=== PATIENT | male | born 1955 | race Caucasian/White ===

== ENCOUNTER → 2018-02-02 | Outpatient (CLI) | payer MEDICARE ==
--- NOTE | 2018-02-02 08:26 | XR ---
EXAMINATION TYPE: XR chest 2V DATE OF EXAM: 02/02/2018 COMPARISON: December 29, 2011 HISTORY: Shortness of breath TECHNIQUE: Frontal and lateral views of the chest are obtained. FINDINGS: Scattered senescent parenchymal changes noted. Hyperinflation compatible with COPD. No evidence for infiltrate. No evidence for atelectasis. Heart size is stable. Mediastinal structures are stable and grossly unremarkable. No evidence for hilar prominence. Degenerative changes dorsal spine. IMPRESSION: 1. No evidence for acute pulmonary disease.
== END | disposition home or self-care (01) ==
LOC: RADXRMAIN 08:04
PROVIDERS: ATTEND Internal Medicine
DX: R05 Cough (principal)
CPT/HCPCS: 71046

== ENCOUNTER 2019-02-28 09:42 | Day surgery (SDC) | payer MEDICARE ==
[2019-02-26 14:21] VITALS: BMI 28.5
[~2019-02-28 09:42] MED LIST: LACTATED RINGERS 1,000 ML IV SCH; LIDOCAINE 1% 20 ML VIAL (10MG/ML) FOR IV START INTRADERMA PRN; MIDAZOLAM (PF) 2 MG/2 ML VIAL IV PRN
[2019-02-28 10:17] VITALS: RESP 16; TEMP 96.7
[2019-02-28] MEDS ORDERED: fentaNYL (PF) 50 MCG/ML 2 ML AMP ONE (11:12)
[2019-02-28] MEDS ORDERED: LIDOCAINE 1% INJ 10MG/ML (20 ML MDV) ONE (11:12)
[2019-02-28] MEDS ORDERED: ONDANSETRON 4 MG/2 ML VIAL ONE (11:12)
[2019-02-28] MEDS ORDERED: PROPOFOL 10 MG/ML 20 ML VIAL IV ONE (11:12)
--- NOTE | 2019-02-28 11:57 | P.PCN ---
Date of Procedure: 02/28/19 Procedure(s) Performed: Procedure: Total colonoscopy. Preoperative diagnosis: Positive cologuard test. Postoperative diagnosis: Diverticulosis with no evidence of acute diverticulitis, strictures, polyps or cancer. Preparation: HalfLytely prep. Sedation: Was provided by anesthesia. Brief clinical history: The patient is 63-year-old male who is scheduled for this evaluation because of positive cologuard test. The patient had no prior colonoscopy. He has taken acid suppressive medications for reflux over the years but not recently. He has no significant bowel issues and reported having seen blood in his stools 2 different times when he was straining, the last may have been the day he submitted a stool specimen for the cologuard test. Procedure: With the patient on his left lateral decubitus position and after informed consent and adequate sedation, the perianal area was inspected and it d id not show any fissures or fistulas. There were no masses felt on digital rectal examination. The Olympus CFH 190L video colonoscope was then inserted in the rectum in the usual fashion and advanced to the cecum. Unfortunately, the preparation was less than ideal and I spent some time cleansing the bowel. There was diffuse diverticulosis, more on the left side with no evidence of acute diverticulitis or strictures. No large polyps or tumors were seen or any spontaneous bleeding. I retroflexed the endoscope in the rectum before the endoscope was withdrawn. The patient tolerated the procedure well. Plan: The patient was reassured. Discussed dietary measures. Consideration can be given for an upper endoscopy if he has recurrence of his upper GI complaints or anemia. He will follow up with you as planned. In light of his less than ideal preparation, I suggested repeat colonoscopy for screening in around 5 years.
[2019-02-28 12:17] VITALS: BP 159/88; PULSE 80
== END 2019-02-28 12:22 | disposition home or self-care (01) ==
LOC: ORWHC2ENDO 09:42
DX: K92.1 Melena (principal); K57.30 Diverticulosis of large intestine without perforation or abscess without bleeding; K21.9 Gastro-esophageal reflux disease without esophagitis; Z86.73 Personal history of transient ischemic attack (TIA), and cerebral infarction without residual deficits; I10 Essential (primary) hypertension; E07.9 Disorder of thyroid, unspecified; J44.9 Chronic obstructive pulmonary disease, unspecified; F17.210 Nicotine dependence, cigarettes, uncomplicated; Z79.890 Hormone replacement therapy; Z79.891 Long term (current) use of opiate analgesic; Z79.899 Other long term (current) drug therapy
CPT/HCPCS: 45378; J2405; J2001; J3010; J2704

== ENCOUNTER → 2020-12-30 | Outpatient (CLI) | payer MEDICARE ==
--- NOTE | 2020-12-30 19:10 | MR ---
Result: History: Left foot pain, redness and swelling. Comparison: Radiographs 10/31/2017. Technique: Multiplanar, multisequence MR imaging of the left foot was performed without contrast. Findings: There is no significant bone marrow abnormality, acute fracture or dislocation. No evidence of verteb ral marrow replacements to suggest osteomyelitis. No significant joint effusion. There is diffuse marked subcutaneous soft tissue edema at the dorsum of the foot. No definite focal f luid collection on this noncontrast study. There is also diffuse moderate soft tissue edema about the imaged distal leg. No significant tendon or plantar fascia abnormality is seen. There is generalized mild atrophy of the foot musculature. Impression: Diffuse marked soft tissue edema about the dorsum of the foot as well as the visualized leg. Findings are compatible with cellulitis in the appropriate clinical setting. No acute osseous abnormality or evidence of osteomyelitis.
== END | disposition home or self-care (01) ==
LOC: RADMRIMAIN 09:37
PROVIDERS: ATTEND Podiatrist
DX: M84.375A Stress fracture, left foot, initial encounter for fracture (principal); G58.9 Mononeuropathy, unspecified; G90.522 Complex regional pain syndrome I of left lower limb; R60.9 Edema, unspecified; M79.672 Pain in left foot

== ENCOUNTER 2021-04-27 14:01 | Emergency (ER) | payer MEDICARE ==
[2021-04-27 14:11] VITALS: BP 169/78; PULSE 83; RESP 16; TEMP 98.3
--- NOTE | 2021-04-27 14:37 | ED ---
Extremity Problem HPI - General Chief complaint: Extremity Problem,Nontraumatic Stated complaint: Leg swelling Time Seen by Provider: 04/27/21 14:11 Source: patient Mode of arrival: wheelchair Limitations: no limitations - History of Present Illness Initial comments: Patient is a 66-year-old male with history of CVA, hypertension, asthma, presenting to the emergency Department with complaints of swelling in his left lower leg for the past 2 years. Patient states all this started about 2 years ago, he feels like it's been getting worse over the past few months. He states he has seen to his primary care physician, vascular doctor and about 3 days ago saw his change coordinator. They seem to think it's lymphedema. They scheduled him a heart echo and a left lower leg ultrasound, these are scheduled for next month. Patient states he has a compression machine at home that he's been using, it does help with the swelling but when he takes it off, a few hours later the swelling has returned. He states he has had an ultrasound of his left lower leg but was back in January, no history of blood clots. He is not on blood thinners. He denies any injuries or trauma. He states he get his blood work every 3 months, no abnormalities. He denies any fevers or chills, no chest pain or shortness of breath, no cough. No nausea or vomiting. Patient has no further complaints at this time, he states he is here for second opinion. ER, his vitals are stable. - Related Data Home Medications Medication Instructions Recorded Confirmed Aspirin 81 mg PO DAILY 02/26/19 02/28/19 Baclofen [Lioresal] 5 mg PO DAILY 02/26/19 02/28/19 Enalapril [Vasotec] 10 mg PO DAILY 02/26/19 02/28/19 HYDROcodone/APAP 5-325MG [[place] 1 tab PO DAILY PRN 02/26/19 02/28/19 5-325] Ipratropium/Albuterol Sulfate 1 puff INHALATION QID PRN 02/26/19 02/26/19 [Combivent Respimat Inhaler] Levothyroxine Sodium [Synthroid] 75 mcg PO DAILY 02/26/19 02/28/19 Metoprolol Succinate [Toprol XL] 50 mg PO DAILY 02/26/19 02/28/19 Omeprazole [PriLOSEC] 20 mg PO AC-BRKFST 02/26/19 02/28/19 Zolpidem [Ambien] 10 mg PO HS PRN 02/26/19 02/28/19 Allergies Allergy/AdvReac Type Severity Reaction Status Date / Time No Known Allergies Allergy Verified 04/27/21 14:11 Review of Systems ROS Statement: Those systems with pertinent positive or pertinent negative responses have been documented in the HPI. ROS Other: All systems not noted in ROS Statement are negative. Past Medical History Past Medical History: Asthma, CVA/TIA, GERD/Reflux, Hypertension, Thyroid Disorder Additional Past Medical History / Comment(s): Hx. of Brain Aneurysm History of Any Multi-Drug Resistant Organisms: None Reported Past Surgical History: Cholecystectomy, Tonsillectomy Additional Past Surgical History / Comment(s): Knee surgery, Endovascular coiling for Brain Aneurysm. Past Anesthesia/Blood Transfusion Reactions: Previous Problems w/ Anesthesia Additional Past Anesthesia/Blood Transfusion Reaction / Comment(s): Woke up during surgery. Past Psychological History: Anxiety Smoking Status: Current every day smoker Past Alcohol Use History: None Reported Past Drug Use History: None Reported - Past Family History Mother Family Medical History: Cancer General Exam - General Exam Comments Initial Comments: GENERAL: Patient is well-developed and well-nourished. Patient is nontoxic and in no a cute distress. HEAD: Atraumatic, normocephalic. EYES: Pupils equal round and reactive to light, extraocular movements intact, sclera anicteric, conjunctiva are normal. Eyelids were unremarkable. ENT: TMs normal, nares patent, oropharynx clear without exudates. Moist mucous membranes. NECK: Normal range of motion, supple without lymphadenopathy or JVD. LUNGS: Unlabored respirations. Breath sounds clear to auscultation bilaterally and equal. No wheezes rales or rhonchi. HEART: Regular rate and rhythm without murmurs, rubs or gallops. ABDOMEN: Soft, nontender, normoactive bowel sounds. No guarding, no rebound. No masses appreciated. : Deferred MUSCULOSKELETAL: Patient has 2+ pitting edema at the left lower leg and into the ankle, he is neurovascular intact to lower extremities bilaterally. He has full active range of motion of the left knee, left ankle. No erythema or signs of infection. No clubbing or cyanosis. NEUROLOGICAL: Patient is alert and oriented x 3. Motor and sensory are also intact. Cranial nerves II through XII grossly intact. Symmetrical smile. Normal speech, normal gait. PSYCH: Normal mood, normal affect. SKIN: Warm, Dry, normal turgor, no rashes or lesions noted. Limitations: no limitations Course Vital Signs 04/27/21 14:07 Temperature 98.3 F Pulse Rate 83 Respiratory 16 Rate Blood Pressure 169/78 O2 Sat by Pulse 97 Oximetry Medical Decision Making - Medical Decision Making Patient is a 66-year-old male here for swelling of the left lower leg and going on for the past 2 years but worse over the past couple months. He has seen his PCP, vascular doctor and most recently a change coordinator 3 days ago. He is here for second opinion. His vitals are stable, he does have 2+ pitting edema of the left lower leg, pulses are equal and bilateral lower extremities. He's had no falls or trauma. I did do an ultrasound left lower extremity, negative for any DVTs. I discussed these findings with the patient, I do agree with his previous diagnosis of lymphedema. I recommend he continue to follow-up with his change coordinator and vascular doctor. He is stable for discharge and in agreement with this plan of care. Case discussed with Dr. Perez. Disposition Clinical Impression: Lymphedema of left lower extremity Disposition: HOME SELF-CARE Condition: Stable Instructions (If sedation given, give patient instructions): Leg Edema (ED) Additional Instructions: Please return to the Emergency Department if symptoms worsen or any other concerns. Continue with elevation and compression as discussed. Continue to follow up with your vascular doctor and change coordinator. Is patient prescribed a controlled substance at d/c from ED?: No Referrals: Carlos Pop MD [Primary Care Provider] - 1-2 days Time of Disposition: 15:21
--- NOTE | 2021-04-27 15:07 | US ---
EXAMINATION TYPE: US venous doppler duplex LE LT DATE OF EXAM: 04/27/2021 2:57 PM COMPARISON: NONE CLINICAL HISTORY: pain, swelling. 2 years per pt. SIDE PERFORMED: Left TECHNIQUE: The lower extremity deep venous system is examined utilizing real time linear array sonog ismael with graded compression, doppler sonography and color-flow sonography. VESSELS IMAGED: Common Femoral Vein Deep Femoral Vein Greater Saphenous Vein * Femoral Vein Popliteal Vein Small Saphenous Vein * Proximal Calf Veins (* superficial vessels) Left Leg: Negative for DVT IMPRESSION: 1. Left lower extremity ultrasound negative for deep venous thrombosis.
== END 2021-04-27 15:43 | disposition home or self-care (01) ==
LOC: EC 14:01
DX: I89.0 Lymphedema, not elsewhere classified (principal); I10 Essential (primary) hypertension; J45.909 Unspecified asthma, uncomplicated; K21.9 Gastro-esophageal reflux disease without esophagitis; F17.200 Nicotine dependence, unspecified, uncomplicated; Z86.73 Personal history of transient ischemic attack (TIA), and cerebral infarction without residual deficits; Z79.82 Long term (current) use of aspirin; Z79.51 Long term (current) use of inhaled steroids
CPT/HCPCS: 99284

== ENCOUNTER 2021-09-07 20:02 | Observation (INO) | payer MEDICARE ==
[2021-09-07 23:11] LABS: Basophils # (A) 0.1 k/uL (0-0.2); Basophils % (A) 1 %; Eosinophils # (A) 0.2 k/uL (0-0.7); Eosinophils % (A) 2 %; HCT 46.3 % (39.0-53.0); HGB 16.1 gm/dL (13.0-17.5); Lymphocytes # (A) 3.1 k/uL (1.0-4.8); Lymphocytes % (A) 32 %; MCH 32.9 pg (25.0-35.0); MCHC 34.7 g/dL (31.0-37.0); MCV 94.8 fL (80.0-100.0); Monocytes # (A) 0.7 k/uL (0-1.0); Monocytes % (A) 7 %; Neutrophils # (A) 5.6 k/uL (1.3-7.7); Neutrophils % (A) 57 %; Platelet Count 116 k/uL (150-450); RBC 4.88 m/uL (4.30-5.90); RDW 13.1 % (11.5-15.5); WBC 9.8 k/uL (3.8-10.6)
[2021-09-07 23:17] LABS: ALT 22 U/L (4-49); AST 35 U/L (17-59); African American GFR (CKD) >90 (>60 ml/min/1.73 sqM); Albumin 4.1 g/dL (3.5-5.0); Alkaline Phosphatase 111 U/L (38-126); Anion Gap 8 mmol/L; Blood Urea Nitrogen 11 mg/dL (9-20); Calcium 9.3 mg/dL (8.4-10.2); Carbon Dioxide 25 mmol/L (22-30); Chloride 104 mmol/L (98-107); Glucose 106 mg/dL (74-99); Non-African American GFR(CKD) >90 (>60 ml/min/1.73 sqM); Potassium 4.5 mmol/L (3.5-5.1); Sodium 137 mmol/L (137-145); Total Bilirubin 0.8 mg/dL (0.2-1.3); Total Protein 7.6 g/dL (6.3-8.2)
[2021-09-07 23:19] LABS: INR 1.2 (<1.2); Partial Thromboplastin Time 31.7 sec (22.0-30.0); Prothrombin Time 12.5 sec (9.0-12.0)
--- NOTE | 2021-09-07 23:20 | ED ---
General Adult HPI - General Chief complaint: ENT Stated complaint: Hemorrage in throat Source: patient Mode of arrival: ambulatory Limitations: no limitations - History of Present Illness Initial comments: 66-year-old male with past medical history of hypertension, reflux, smoking presents emergency room with reported oral bleeding. States its been going on for the past 3 weeks. Reports that begins after he eats or drinks something. Used to happen infrequently however has become more frequent. Today states that it started bleeding and took several hours to stop. He is not on any blood thinners. States it is not painful. Denies hemoptysis or hematemesis. No fevers or chills. No other alleviating, precipitating or modifying factors - Related Data Home Medications Medication Instructions Recorded Confirmed Baclofen [Lioresal] 10 mg PO HS 02/26/19 09/07/21 Ipratropium/Albuterol Sulfate 1 puff INHALATION RT-QID 02/26/19 09/07/21 [Combivent Respimat Inhaler] Metoprolol Succinate [Toprol XL] 50 mg PO DAILY 02/26/19 09/07/21 Omeprazole [PriLOSEC] 20 mg PO AC-BRKFST 02/26/19 09/07/21 Albuterol Sulfate [Ventolin HFA] 2 puff INHALATION RT-Q6H PRN 09/07/21 09/07/21 Cholecalciferol (Vitamin D3) 125 mcg PO DAILY 09/07/21 09/07/21 [Vitamin D3 (125 MCG = 5,000 IU)] Famotidine 20 mg PO BID 09/07/21 09/07/21 HYDROcodone/APAP 10-325MG [[place] 1 tab PO Q6HR PRN 09/07/21 09/07/21 10-325] Levothyroxine Sodium [Synthroid] 88 mcg PO DAILY 09/07/21 09/07/21 Morphine Sulfate ER [Ms Contin] 15 mg PO Q8H 09/07/21 09/07/21 Zolpidem Tartrate [Ambien Cr] 12.5 mg PO HS PRN 09/07/21 09/07/21 lisinopriL 20 mg PO DAILY 09/07/21 09/07/21 Allergies Allergy/AdvReac Type Severity Reaction Status Date / Time No Known Allergies Allergy Verified 09/07/21 20:15 Review of Systems ROS Statement: Those systems with pertinent positive or pertinent negative responses have been documented in the HPI. ROS Other: All systems not noted in ROS Statement are negative. Past Medical History Past Medical History: Asthma, CVA/TIA, GERD/Reflux, Hypertension, Thyroid Disorder Additional Past Medical History / Comment(s): Hx. of Brain Aneurysm History of Any Multi-Drug Resistant Organisms: None Reported Past Surgical History: Cholecystectomy, Tonsillectomy Additional Past Surgical History / Comment(s): Knee surgery, Endovascular coiling for Brain Aneurysm. Past Anesthesia/Blood Transfusion Reactions: Previous Problems w/ Anesthesia Additional Past Anesthesia/Blood Transfusion Reaction / Comment(s): Woke up during surgery. Past Psychological History: Anxiety Smoking Status: Current every day smoker Past Alcohol Use History: None Reported Past Drug Use History: None Reported - Past Family History Mother Family Medical History: Cancer General Exam Limitations: no limitations Course Vital Signs 09/07/21 09/07/21 09/07/21 20:11 21:36 22:48 Temperature 98.8 F Pulse Rate 70 72 66 Respiratory 20 22 22 Rate Blood Pressure 163/73 174/81 183/83 O2 Sat by Pulse 97 96 95 Oximetry EKG Findings - EKG Comments: EKG Findings:: EKG demonstrates a sinus rhythm with a ventricular rate of 66. ID interval 190. QRS 106. QTC of 459. No acute ST segment elevations or depressions Medical Decision Making - Medical Decision Making Upon arrival patient was placed in room 24. No active bleeding upon presentation. IV is established laboratories his her conducted. He is sent over for a CT of his neck. Laboratory studies are reviewed and hemoglobin is 16.1. CT demonstrates no acute issues to account for bleeding. All patient is awaiting results he does have onset of bleeding in the exam room. He does produce approximately 150 mL of bright red blood. Mouth is coated with blood however no identifiable source is to the bleeding. Patient mouth is swabbed with TXA. Source possible identified at the posterior pharynx/base of tongue on the right. Due to increased frequency and longevity of bleeding and did recommend admission for ENT consult. Patient agreed to this. He'll be admitted to [facility] has Dr. Pop is on vacation - Lab Data Result diagrams: 09/07/21 22:48 09/07/21 22:48 Lab Results 09/07/21 09/07/21 09/07/21 Range/Units 22:00 22:48 22:48 WBC 9.8 (3.8-10.6) k/uL RBC 4.88 (4.30-5.90) m/uL Hgb 16.1 (13.0-17.5) gm/dL Hct 46.3 (39.0-53.0) % MCV 94.8 (80.0-100.0) fL MCH 32.9 (25.0-35.0) pg MCHC 34.7 (31.0-37.0) g/dL RDW 13.1 (11.5-15.5) % Plt Count 116 L (150-450) k/uL MPV 10.0 Neutrophils % 57 % Lymphocytes % 32 % Monocytes % 7 % Eosinophils % 2 % Basophils % 1 % Neutrophils # 5.6 (1.3-7.7) k/uL Lymphocytes # 3.1 (1.0-4.8) k/uL Monocytes # 0.7 (0-1.0) k/uL Eosinophils # 0.2 (0-0.7) k/uL Basophils # 0.1 (0-0.2) k/uL PT 12.5 H (9.0-12.0) sec INR 1.2 H (<1.2) APTT 31.7 H (22.0-30.0) sec D-Dimer 0.46 (<0.60) mg/L FEU Sodium 137 (137-145) mmol/L Potassium 4.5 (3.5-5.1) mmol/L Chloride 104 (98-107) mmol/L Carbon Dioxide 25 (22-30) mmol/L Anion Gap 8 mmol/L BUN 11 (9-20) mg/dL Creatinine 0.62 L (0.66-1.25) mg/dL Est GFR (CKD-EPI)AfAm >90 (>60 ml/min/1.73 sqM) Est GFR (CKD-EPI)NonAf >90 (>60 ml/min/1.73 sqM) Glucose 106 H (74-99) mg/dL Plasma Lactic Acid Adalid (0.7-2.0) mmol/L Calcium 9.3 (8.4-10.2) mg/dL Total Bilirubin 0.8 (0.2-1.3) mg/dL AST 35 (17-59) U/L ALT 22 (4-49) U/L Alkaline Phosphatase 111 (38-126) U/L Troponin I (0.000-0.034) ng/mL Total Protein 7.6 (6.3-8.2) g/dL Albumin 4.1 (3.5-5.0) g/dL 09/07/21 09/07/21 Range/Units 22:48 22:48 WBC (3.8-10.6) k/uL RBC (4.30-5.90) m/uL Hgb (13.0-17.5) gm/dL Hct (39.0-53.0) % MCV (80.0-100.0) fL MCH (25.0-35.0) pg MCHC (31.0-37.0) g/dL RDW (11.5-15.5) % Plt Count (150-450) k/uL MPV Neutrophils % % Lymphocytes % % Monocytes % % Eosinophils % % Basophils % % Neutrophils # (1.3-7.7) k/uL Lymphocytes # (1.0-4.8) k/uL Monocytes # (0-1.0) k/uL Eosinophils # (0-0.7) k/uL Basophils # (0-0.2) k/uL PT (9.0-12.0) sec INR (<1.2) APTT (22.0-30.0) sec D-Dimer (<0.60) mg/L FEU Sodium (137-145) mmol/L Potassium (3.5-5.1) mmol/L Chloride (98-107) mmol/L Carbon Dioxide (22-30) mmol/L Anion Gap mmol/L BUN (9-20) mg/dL Creatinine (0.66-1.25) mg/dL Est GFR (CKD-EPI)AfAm (>60 ml/min/1.73 sqM) Est GFR (CKD-EPI)NonAf (>60 ml/min/1.73 sqM) Glucose (74-99) mg/dL Plasma Lactic Acid Adalid 0.7 (0.7-2.0) mmol/L Calcium (8.4-10.2) mg/dL Total Bilirubin (0.2-1.3) mg/dL AST (17-59) U/L ALT (4-49) U/L Alkaline Phosphatase (38-126) U/L Troponin I <0.012 (0.000-0.034) ng/mL Total Protein (6.3-8.2) g/dL Albumin (3.5-5.0) g/dL Disposition Clinical Impression: Oral bleeding Disposition: ADMITTED IP TO THIS [facility] Condition: Stable Is patient prescribed a controlled substance at d/c from ED?: No Referrals: Carlos Pop MD [Primary Care Provider] - 1-2 days Decision to Admit Reason: Admit from EC Decision Date: 09/08/21 Decision Time: 01:08
--- NOTE | 2021-09-08 00:30 | XR ---
EXAMINATION TYPE: XR chest 2V DATE OF EXAM: 09/07/2021 COMPARISON: 02/02/2018 HISTORY: Cough TECHNIQUE: 2 views FINDINGS: There is no heart failure nor confluent pneumonic infiltrate. Costophrenic angles are clear . There are no hilar masses. Bony thorax is intact. IMPRESSION: No active cardiopulmonary disease. No change.
--- NOTE | 2021-09-08 00:37 | CT ---
EXAMINATION TYPE: CT soft tissue neck w con DATE OF EXAM: 09/07/2021 COMPARISON: None HISTORY: Bleeding in throat CT DLP: 341.8 mGycm Automated exposure control for dose reduction was used. CONTRAST: Performed with IV Contrast, patient injected with 100 mL of Isovue 300. Images obtained from the aortic arch to the top of the frontal sinuses with IV contrast. There is normal branching pattern of the great vessels on the aortic arch. There is bilateral arteria l flow in the subclavian arteries. There is arterial flow in the carotid and vertebral arteries bilat erally. There is flow in both jugular veins. There is some pulmonary emphysema at the lung apices. Submandibular salivary glands are intact. Parotid glands are intact. Thyroid gland is intact. Trache a is intact. The tongue is intact. There is no evidence of pharyngeal mass. Epiglottis is normal. Pre vertebral soft tissues are intact. There is mild multilevel cervical spondylotic changes. The tonsils and adenoids are within normal limits. There is normal aeration of the paranasal sinuses. There is m etal artifact from apparent aneurysm surgery at the tip of the basilar artery. There is no evidence o f orbital mass. IMPRESSION: No significant abnormality of the neck. No evidence of pharyngeal mass. I do not see a cause for blee ding in the throat. Normal paranasal sinuses. Pulmonary emphysema noted at the lung apices.
[2021-09-08] MEDS ORDERED: TRANEXAMIC ACID 1,000 MG/10 ML VIAL IRRIGATION ONE (00:40)
[2021-09-08] MEDS ORDERED: NALOXONE 0.4 MG/ML 1 ML VIAL IV PRN (01:08)
[2021-09-08] MEDS ORDERED: ALBUTEROL NEBULIZED 2.5 MG/3 ML INHALATION PRN (01:27)
[2021-09-08] MEDS: MORPHINE SULFATE ER 15 MG TABLET PO SCH ×2 (01:53→09:35)
[2021-09-08] MEDS: LEVOTHYROXINE 88 MCG TAB PO SCH (06:03)
[2021-09-08] MEDS: IPRATROPIUM-ALBUTEROL 3 ML NEB INHALATION SCH ×4 (07:58→20:10)
[2021-09-08] MEDS: CHOLECALCIFEROL 25 MCG (1000 IU) TABLET PO SCH ×2 (09:28→15:42)
[2021-09-08] MEDS: FAMOTIDINE 20 MG TAB PO SCH ×3 (09:28→20:36)
[2021-09-08] MEDS: METOPROLOL SUCCINATE (ER) 50 MG TAB.ER.24H PO SCH ×2 (09:28→09:45)
[2021-09-08] MEDS: PANTOPRAZOLE 40 MG TABLET PO SCH ×2 (09:28→15:42)
[2021-09-08] MEDS: lisinopriL 20 MG TAB PO SCH ×3 (09:28→09:53)
[2021-09-08] MEDS: HYDROcodone/APAP 10-325MG 1 EACH TAB PO PRN ×2 (09:46→16:56)
--- NOTE | 2021-09-08 11:11 | P.HPIM ---
History of Present Illness H&P Date: 09/08/21 Chief Complaint: Oral bleeding This is a 66-year-old male patient who presented to the ER with concerns of ongoing oral bleeding. Patient reports this issue has been occurring intermittently over the past month but did have a previous episode approximately 1 year ago. Patient reports that the bleeding is coming from tongue lesion. Patient reports that when he eats and drinks facets the bleeding of or if he lays down the bleeding will sometimes start. Patient denies any use of blood thinners. Patient does report he takes baby aspirin daily. Patient is a pack per day smoker. Additional medical history includes hypertension, reflux, CVA and brain aneurysm. Chest x-ray completed showing no active cardiopulmonary disease no change. Computed tomography scan of the neck completed showing no significant abnormality of the neck. Hemoglobin stable at 16.1. At this time patient has been admitted. ENT services consulted. Patient denies chest pain or shortness breath. Patient denies chest pain or shortness breath. Patient denies nausea vomiting or diarrhea. Patient denies any urinary burning or frequency. Review of Systems Please refer to HPI otherwise unremarkable Past Medical History Past Medical History: Asthma, CVA/TIA, GERD/Reflux, Hypertension, Thyroid Disorder Additional Past Medical History / Comment(s): Hx. of Brain Aneurysm History of Any Multi-Drug Resistant Organisms: None Reported Past Surgical History: Cholecystectomy, Tonsillectomy Additional Past Surgical History / Comment(s): Knee surgery, Endovascular coiling for Brain Aneurysm. Past Anesthesia/Blood Transfusion Reactions: Previous Problems w/ Anesthesia Additional Past Anesthesia/Blood Transfusion Reaction / Comment(s): Woke up during surgery. Past Psychological History: Anxiety Smoking Status: Current every day smoker Past Alcohol Use History: None Reported Past Drug Use History: None Reported - Past Family History Mother Family Medical History: Cancer Medications and Allergies Home Medications Medication Instructions Recorded Confirmed Type Baclofen [Lioresal] 10 mg PO HS 02/26/19 09/07/21 History Ipratropium/Albuterol Sulfate 1 puff INHALATION RT-QID 02/26/19 09/07/21 History [Combivent Respimat Inhaler] Metoprolol Succinate [Toprol XL] 50 mg PO DAILY 02/26/19 09/07/21 History Omeprazole [PriLOSEC] 20 mg PO AC-BRKFST 02/26/19 09/07/21 History Albuterol Sulfate [Ventolin HFA] 2 puff INHALATION RT-Q6H PRN 09/07/21 09/07/21 History Cholecalciferol (Vitamin D3) 125 mcg PO DAILY 09/07/21 09/07/21 History [Vitamin D3 (125 MCG = 5,000 IU)] Famotidine 20 mg PO BID 09/07/21 09/07/21 History HYDROcodone/APAP 10-325MG [[place] 1 tab PO Q6HR PRN 09/07/21 09/07/21 History 10-325] Levothyroxine Sodium [Synthroid] 88 mcg PO DAILY 09/07/21 09/07/21 History Morphine Sulfate ER [Ms Contin] 15 mg PO Q8H 09/07/21 09/07/21 History Zolpidem Tartrate [Ambien Cr] 12.5 mg PO HS PRN 09/07/21 09/07/21 History lisinopriL 20 mg PO DAILY 09/07/21 09/07/21 History Allergies Allergy/AdvReac Type Severity Reaction Status Date / Time No Known Allergies Allergy Verified 09/07/21 20:15 Physical Exam Vitals: Vital Signs Temp Pulse Pulse Resp BP BP Pulse Ox 09/08/21 08:13 80 09/08/21 08:01 80 09/08/21 07:00 97.8 F 79 18 132/61 94 L 09/08/21 02:20 98.1 F 72 16 171/84 93 L 09/08/21 02:00 16 09/08/21 01:50 98 F 73 18 171/78 95 09/07/21 22:48 66 22 183/83 95 09/07/21 21:36 72 22 174/81 96 09/07/21 20:11 98.8 F 70 20 163/73 97 Intake and Output 09/07/21 09/08/21 09/08/21 22:59 06:59 14:59 Other: Voiding Method Toilet Toilet # Voids 2 Weight 99.79 kg 99.79 kg Head normocephalic Neck supple Lungs clear to auscultation bilaterally no wheezing or crackles Heart regular rate and rhythm S1-S2, no rub or gallop Abdomen is soft nontender nondistended positive bowel sounds no hepatospleno megaly Extremities no edema Neuro alert and orientated to 3 Results CBC & Chem 7: 10/19/21 22:48 09/07/21 22:48 Labs: Abnormal Lab Results - Last 24 Hours (Table) 09/07/21 09/07/21 09/07/21 Range/Units 22:00 22:48 22:48 Plt Count 116 L (150-450) k/uL PT 12.5 H (9.0-12.0) sec INR 1.2 H (<1.2) APTT 31.7 H (22.0-30.0) sec Creatinine 0.62 L (0.66-1.25) mg/dL Glucose 106 H (74-99) mg/dL Thrombosis Risk Factor Assmnt - Choose All That Apply Each Factor Represents 1 point: Obesity (BMI >25), Swollen legs (current) Other Risk Factors: Yes Each Risk Factor Represents 2 Points: Age 61-74 years Other congenital or acquired thrombophilia - If yes, enter type in comment: No Thrombosis Risk Factor Assessment Total Risk Factor Score: 4 Thrombosis Risk Factor Assessment Level: Moderate Risk Assessment and Plan Assessment: 1. Oral bleeding with tongue lesion. ENT service is consulted hemoglobin stable 2. History of nicotine dependence. Patient educated greater than 3 minutes on smoking sensation nicotine patch ordered 3. History of CVA 4. History of brain aneurysm 5. History of asthma no exacerbation at this time 6. Essential hypertension 7. Hypothyroidism. Patient maintained on Synthroid 8. Increased edema to lower extremities. Patient has been thoroughly worked up in PCP office MRI scheduled for Monday DVT prophylaxis SCDs DVT prophylaxis Protonix ENT service is consulted Continue to monitor hemoglobin closely Time with Patient: Greater than 30 (Greater than 60% of the total time spent in counseling and coordination of care)
[2021-09-08] MEDS: NICOTINE 14MG/24HR PATCH TRANSDERM SCH (12:05)
[2021-09-08] MEDS ORDERED: SODIUM CHLORIDE 0.9% 1,000 ML IV STA (13:43)
[2021-09-08] MEDS ORDERED: lisinopriL 20 MG TAB PO SCH (17:30)
[2021-09-08] MEDS ORDERED: MORPHINE SULFATE ER 15 MG TABLET PO SCH (21:00)
[2021-09-08] MEDS ORDERED: BACLOFEN 10 MG TAB PO SCH (21:00)
[2021-09-08] MEDS ORDERED: ZOLPIDEM 5 MG TAB PO PRN (21:22)
[2021-09-09] MEDS: HYDROcodone/APAP 10-325MG 1 EACH TAB PO PRN ×2 (00:14→06:27)
[2021-09-09] MEDS: LEVOTHYROXINE 88 MCG TAB PO SCH (06:25)
[2021-09-09] MEDS: CHOLECALCIFEROL 25 MCG (1000 IU) TABLET PO SCH (07:39)
[2021-09-09] MEDS: PANTOPRAZOLE 40 MG TABLET PO SCH (07:39)
[2021-09-09] MEDS: METOPROLOL SUCCINATE (ER) 50 MG TAB.ER.24H PO SCH (07:39)
[2021-09-09] MEDS: FAMOTIDINE 20 MG TAB PO SCH (07:39)
[2021-09-09] MEDS: NICOTINE 14MG/24HR PATCH TRANSDERM SCH (07:40)
[2021-09-09] MEDS: IPRATROPIUM-ALBUTEROL 3 ML NEB INHALATION SCH ×3 (07:54→16:33)
[2021-09-09 11:07] LABS: Basophils # (A) 0.05 X 10*3/uL (0.00-0.10); Basophils % (A) 0.6 %; Eosinophils # (A) 0.17 X 10*3/uL (0.04-0.35); HCT 38.6 % (39.6-50.0); HGB 12.8 g/dL (13.0-17.0); Lymphocytes # (A) 3.88 X 10*3/uL (0.90-5.00); Lymphocytes % (A) 46.6 %; MCH 31.4 pg (27.0-32.0); MCHC 33.2 g/dL (32.0-37.0); MCV 94.8 fL (80.0-97.0); Mean Platelet Volume 13.3 fL (9.5-12.2); Monocytes # (A) 0.88 X 10*3/uL (0.20-1.00); Monocytes % (A) 10.6 %; Neutrophils # (A) 3.34 X 10*3/uL (1.80-7.70); Neutrophils % (A) 40.1 %; Platelet Count 94 X 10*3/uL (140-440); RBC 4.07 X 10*6/uL (4.40-5.60); RDW 12.8 % (11.5-14.5); WBC 8.33 X 10*3/uL (4.50-10.00)
[2021-09-09] MEDS ORDERED: RX INFO: IV CONTRAST WAS GIVEN 1 EACH MISC MISCELLANE PRN (14:07)
[2021-09-09 14:17] VITALS: BP 141/68; PULSE 68; RESP 18; TEMP 98.1
--- NOTE | 2021-09-09 15:29 | CT ---
EXAMINATION TYPE: CT chest w con DATE OF EXAM: 09/09/2021 COMPARISON: 08/01/2014 HISTORY: hemoptesis, SOB CT DLP: 448.7 mGycm Automated exposure control for dose reduction was used. CONTRAST: CT scan of the chest is performed with IV Contrast, patient injected with 100 mL of Isovue 300. FINDINGS: LUNGS: The lungs are grossly clear, there is no concerning parenchymal mass or nodule identified. T here is no pleural effusion or pneumothorax seen. The tracheobronchial tree is patent. MEDIASTINUM: There are no greater than 1 cm hilar or mediastinal lymph nodes. No pericardial effusi on is seen. Thoracic aorta is of normal caliber. The heart is not enlarged. UPPER ABDOMEN: Nodular hepatic appearance is suggestive of underlying cirrhosis. Splenomegaly partial ly imaged. Cholecystectomy clips. OTHER: No additional significant abnormality is seen. IMPRESSION: 1. No significant abnormality to account for the patient's symptoms of hemoptysis. 2. Cirrhotic liver disease with hepatosplenomegaly.
[2021-09-09 16:12] LABS: Anion Gap 13.4 mmol/L (4.00-12.00); BUN/Creat Ratio 16.28 Ratio (12.00-20.00); Blood Urea Nitrogen 11.2 mg/dL (9.0-27.0); Calcium 8.8 mg/dL (8.7-10.3); Carbon Dioxide 22.8 mmol/L (21.6-31.8); Non-African American GFR(CKD) 98.4 (60.0-200.0); Potassium 4.3 mmol/L (3.5-5.5)
--- NOTE | 2021-09-09 22:43 | CONS ---
CONSULTATION DATE OF CONSULTATION: 09/09/2021. REASON FOR THE CONSULTATION: Oropharyngeal bleeding. HISTORY OF THE PRESENT ILLNESS: This patient is a pleasant 66-year-old male who presented to the emergency room department of [facility] complaining of spitting up blood over the past 2 or 3 weeks. The patient states that the color of blood is anywhere from bright red to a dark red. He denies any associated throat pain. He believes that it may have been initiated following a severe coughing spasm approximately 3 weeks ago. The bleeding is intermittent and he is able to get it to stop by simply holding ice in his mouth. With his latest episode, it took several hours to get the bleeding stopped, and therefore he proceeded to the emergency room. At the time that he was seen in the emergency room, he was not actively bleeding. However, at some point while he was in the emergency room the ER doctor noticed that the patient began to spit up bright, red blood. Inspection of the oropharynx did not reveal the source of the bleeding. A CT scan of the neck was ordered by the ER physician, and this was completely normal. The patient states that he smokes approximately one pack of cigarettes per day and that he is continuously trying to quit. He denies any dysphagia or any other significant symptoms. Past medical history reveals that he has NO KNOWN ALLERGIES TO MEDICATIONS. He is on numerous medications, including: Synthroid, morphine, Ambien, lisinopril, famotidine, Albuterol, omeprazole, metoprolol, Combivent, ipratropium/albuterol, and baclofen. There is a history of hypertension and COPD/emphysema. There is no history of diabetes mellitus. REVIEW OF SYSTEMS: CARDIOVASCULAR: Positive for hypertension. Respiratory system is positive for emphysema, COPD. Gastrointestinal system is positive for GERD (gastroesophageal reflux disorder). Metabolic/endocrine system is positive for hypothyroidism. Musculoskeletal is positive for osteoarthritis. The remainder of the review of systems is essentially unremarkable. PHYSICAL EXAMINATION: This patient is a 66-year-old male who is alert, cooperative and well-oriented to time and place. He is in no acute distress at this time and he is not actively bleeding. HEENT EXAMINATION: The patient is normocephalic. Tympanic membranes are normal. Pupils are equal, round and reactive to light and accommodation. Extraocular movements within normal limits. Intranasal examination reveals severe septal deviation to the left with compensatory hypertrophy of the inferior turbinates bilaterally. There is no evidence any bleeding intranasally. Examination of oropharynx does not reveal any evidence of any active bleeding. The patient has very prominent vessels (veins) on the posterior aspect of the tongue. This is not unusual. Palpation of the base of tongue with my index finger did not detect any obvious masses or elicit any obvious bleeding at this time. Careful examination of both the lateral aspect of the tongue, the floor of the mouth and the buccal spaces does not reveal any evidence of any suspicious bleeding. I am not able to do a laryngoscopy at the patient's bedside at this time. Palpation of the neck does not reveal any evidence of any neck masses or lymphadenopathy or tenderness. Cranial nerves 2 through 12 and the remainder of the head and neck exam are within normal limits. CHEST/CARDIOVASCULAR: Both lung amado are clear to percussion and auscultation. Lung sounds are distant. There are no rales, rhonchi or wheezes, however. The patient is in regular sinus rhythm. Peripheral pulses are bilaterally symmetrical. ABDOMEN: There is no evidence any masses, megaly or tenderness. The abdomen is soft. The remainder of physical exam is unremarkable. IMPRESSION: Oropharyngeal bleeding/hemorrhaging. PLAN: I discussed at length with this patient the fact that he may be bleeding from an injured vessel in the base of the tongue. This, however, is very unusual and certainly for it to be precipitated by a simple coughing spell would be even more unusual. However, certainly that is a primary concern. In addition to this, there is a possibility the patient may have a lesion in his bronchial tree that might account for the intermittent bleeding. I am going to order a CT scan of the chest with contrast. From an ENT standpoint, I feel it is safe for the patient to go home. He has been cautioned that if he does start to bleed, that the best way to stop this is to gargle with ice water and spit it out. I cautioned him against sucking on ice cubes because this will cause him to swallow the blood, which will precipitate vomiting. Certainly, if the bleeding is coming from the base of tongue or hypopharynx, any action such as vomiting will only aggravate it. He has been instructed to call my office on Monday, and at that time we will schedule him for an appointment JACKELYN. My plan is to see him in the office and then subsequently I will most likely schedule him for surgery on the Monday of next week. At that time he will undergo an examination of the nasopharynx and also a suspension microlaryngoscopy to evaluate the hypopharynx and the base of tongue under general anesthesia. All of the patient's questions were answered. I spent approximately half an hour with this patient examining and discussing his situation with him. I want to take this opportunity to thank you for allowing me to assist you in the care of your patient. If I can be of any further assistance, please feel free to call my office. EDYTA / ARMANDO: [id number] / MTDD
== END 2021-09-09 16:49 | disposition home or self-care (01) ==
LOC: EC 20:02 → 6NMEDSUR 09-08 01:08
PROVIDERS: ADMIT Internal Medicine; ATTEND Internal Medicine
DX: R58 Hemorrhage, not elsewhere classified (principal); K14.9 Disease of tongue, unspecified; F17.210 Nicotine dependence, cigarettes, uncomplicated; I10 Essential (primary) hypertension; J43.9 Emphysema, unspecified; K21.9 Gastro-esophageal reflux disease without esophagitis; J45.909 Unspecified asthma, uncomplicated; F41.9 Anxiety disorder, unspecified; E66.9 Obesity, unspecified; Z68.29 Body mass index [BMI] 29.0-29.9, adult; M79.89 Other specified soft tissue disorders; E03.9 Hypothyroidism, unspecified; M19.90 Unspecified osteoarthritis, unspecified site; R60.9 Edema, unspecified; Z20.822 Contact with and (suspected) exposure to COVID-19; Z71.6 Tobacco abuse counseling; Z79.899 Other long term (current) drug therapy; Z79.82 Long term (current) use of aspirin; Z79.890 Hormone replacement therapy; Z79.891 Long term (current) use of opiate analgesic; Z86.73 Personal history of transient ischemic attack (TIA), and cerebral infarction without residual deficits; Z86.79 Personal history of other diseases of the circulatory system; Z90.49 Acquired absence of other specified parts of digestive tract; Z80.9 Family history of malignant neoplasm, unspecified
CPT/HCPCS: 96360; 96361 ×2; 99285; 36415; 94640 ×4; 93005; 85379; 80053; 80048; 83605; 84484; 85025 ×2; 85610; 85730; 87635; 71046; 70491; 71260; G0378 ×2; S4990 ×2; Q9967 ×2

== ENCOUNTER 2021-09-17 09:02 | Day surgery (SDC) | payer MEDICARE ==
[2021-09-16 11:49] VITALS: BMI 29.8
--- NOTE | 2021-09-16 18:53 | HP ---
HISTORY AND PHYSICAL CHIEF COMPLAINT: Nasopharyngeal/oropharyngeal bleeding, etiology? HISTORY OF PRESENT ILLNESS: The patient is a pleasant 66-year-old male who was initially seen as a consultation in [facility] recently. At that time the patient was admitted for a 2- to 3-week history of spitting up bright red blood. He was recently seen in the emergency room and initially was not having any bleeding episodes. However, while in the emergency room he did have an episode of bright red bleeding. The emergency room doctor could not determine the source, whether it was from the nose, the pharynx or the oropharynx. A CT scan of the neck was ordered by the emergency room physician. This was completely normal. The patient smokes approximately one pack of cigarettes per day, although he is continuously trying to quit. He was admitted to the hospital for definitive therapy. While in the hospital he was placed on intravenous antibiotics and it was noted that he had very minor episodes while in the hospital. I saw the patient but was not able to determine the source of his bleeding at the bedside. I therefore recommended that after he is discharged he come to my office and we would schedule him for surgery. At that time, under general anesthetic, we should be able to determine the source of his bleeding, whether it is from the nasopharynx or from the oropharynx. PAST MEDICAL HISTORY: The patient has NO KNOWN ALLERGIES TO MEDICATION. He smokes approximately a pack of cigarettes per day and is currently trying to quit. MEDICATIONS: His current medications include Synthroid, morphine, Ambien, lisinopril, famotidine, Albuterol, omeprazole, metoprolol, Combivent, ipratropium/albuterol updrafts, and baclofen. REVIEW OF SYSTEMS: Positive for ASHD and hypertension. RESPIRATORY SYSTEM: Positive for COPD/emphysema. Gastrointestinal system is positive for GERD (gastroesophageal reflux disorder). Metabolic endocrine system is positive for hypothyroidism. Musculoskeletal system is positive for osteoarthritis. The remainder review of systems is essentially unremarkable. PHYSICAL EXAMINATION: This patient is a pleasant 66-year-old male who was alert, cooperative and is in no acute distress. HEENT EXAMINATION: Patient is normocephalic. Tympanic membranes are normal. Middle ear space is free of any fluid or infection. Pupils equal, round and reactive to light and accommodation. Extraocular movements within normal limits. Intranasal examination reveals moderate to severe septal deviation with compensatory hypertrophy inferior turbinates. There is no evidence any active bleeding intranasally. Examination of oropharynx, including indirect laryngoscopy using the headlight mirror, reveals no suspicious lesions of the floor of the mouth, right or left piriform sinus or base of tongue. There was noted to be very prominent vasculature on the base of tongue, however. The valleculae and epiglottis are free of any suspicious lesions, as is the hypopharynx and the vocal cords, larynx, etc. Palpation of the neck is negative for any neck masses or lymphadenopathy. Cranial nerves 2 through 12 and the remainder of the head and neck exam all within normal limits. CHEST/CARDIOVASCULAR: Both lung amado are clear, though lung sounds are somewhat distant. The patient is in regular sinus rhythm. S1 and S2 are present without evidence of any murmurs, S3s or S4s. Peripheral pulses are bilaterally symmetrical and within normal limits. ABDOMEN: There is no evidence of any masses, megaly or tenderness. The abdomen is soft. Skin is unremarkable. Musculoskeletal and neurological are within normal limits. The rectal exam is deferred at this time because the patient has this done on a regular basis at his family physician's office. The remainder of physical exam is unremarkable. IMPRESSION: Nasal oropharyngeal bleeding, etiology? PLAN: The patient is scheduled undergo a suspension microlaryngoscopy and examination of nasopharynx under general anesthetic in the a.m. ATTENTION RNS IN THE PRE-SURGICAL AREA: I have not ordered any pre-surgical prophylactic antibiotics for this patient. If the pharmacy department sends any pre- surgical prophylactic antibiotics for this patient, please cancel that medication and return the medication to the pharmacy department. Also make sure that the patient's account is credited appropriately. I have ordered for the patient to receive 1000 mg of Ofirmev IV to be given once an intravenous line has been established. I have discussed the risks, benefits and alternative therapies for the above-mentioned procedure and for both sedation/analgesia as well as necessary blood product administration, if indicated, as they pertain to this patient. The patient has indicated his or her understanding and acceptance of the risks and procedures discussed. MMODL / IJN: [id number] /
[~2021-09-17 09:02] MED LIST changes: +ACETAMINOPHEN IV (For NPO) 1,000 MG in EMPTY BAG 1 BAG IVPB PRN; +DEXAMETHASONE SOD PHOSPHATE 4 MG/ML 1 ML VIAL IV ONE; +HYDROmorphone 0.5 MG/0.5 ML SYRINGE IVP PRN; -LIDOCAINE 1% 20 ML VIAL (10MG/ML) FOR IV START INTRADERMA PRN; -MIDAZOLAM (PF) 2 MG/2 ML VIAL IV PRN; +MIDAZOLAM 2 MG/2 ML VIAL IV PRN; +ONDANSETRON 4 MG/2 ML VIAL IVP ONE; +Pre Op ABX Message 1 EACH MISC MISCELLANE ONE
[2021-09-17 09:45] VITALS: RESP 16
[2021-09-17] MEDS ORDERED: LIDOCAINE 1% (10MG/ML) FOR IV START INTRADERMA ONE (09:50)
[2021-09-17] MEDS ORDERED: ROCURONIUM 10 MG/ML (5 ML VIAL) IV ONE (10:39)
[2021-09-17] MEDS ORDERED: SODIUM CHLORIDE 0.9% 100 ML BAG ONE (10:39)
[2021-09-17] MEDS ORDERED: LIDOCAINE 1% INJ 10MG/ML (20 ML MDV) ONE (10:39)
[2021-09-17] MEDS ORDERED: PROPOFOL 10 MG/ML 20 ML VIAL IV ONE (10:39)
[2021-09-17] MEDS ORDERED: ALBUTEROL HFA INHALER INHALATION ONE (10:39)
[2021-09-17] MEDS ORDERED: NEOSTIGMINE 1 MG/ML 10 ML VIAL ONE (10:39)
[2021-09-17] MEDS ORDERED: ceFAZolin 1,000 MG VIAL ONE (10:39)
[2021-09-17] MEDS ORDERED: MIDAZOLAM 2 MG/2 ML VIAL ONE (10:39)
[2021-09-17] MEDS ORDERED: GLYCOPYRROLATE 0.2 MG/ML 2 ML VIAL ONE (10:39)
[2021-09-17] MEDS ORDERED: fentaNYL (PF) 50 MCG/ML 2 ML AMP ONE (10:39)
[2021-09-17] MEDS ORDERED: OXYMETAZOLINE 0.05% NASL SPRAY 1 SPRAY BOTTLE NASAL ONE (11:11)
[2021-09-17] MEDS ORDERED: LACTATED RINGERS 1,000 ML IV ONE (11:58)
[2021-09-17 12:21] VITALS: TEMP 96.9
[2021-09-17] MEDS ORDERED: LABETALOL SYRINGE 5 MG/ML IVP ONE (13:00)
[2021-09-17] MEDS ORDERED: MIDAZOLAM 2 MG/2 ML VIAL IVP ONE (13:00)
[2021-09-17 13:42] VITALS: BP 177/84; PULSE 80
--- NOTE | 2021-09-18 10:03 | OP ---
OPERATIVE REPORT DATE OF SURGERY: 09/17/2021 PREOPERATIVE DIAGNOSIS: Nasal oropharyngeal bleeding, etiology ? POSTOPERATIVE DIAGNOSIS: Severe bilateral posterior epistaxis. ANESTHESIA: General. OPERATIVE PROCEDURE: 1. Examination of the nasopharynx and examination of the nose under general anesthesia. 2. Suspension microlaryngoscopy. OPERATING SURGEON: Dr. Vences. COMPLICATIONS: None. ESTIMATED BLOOD LOSS: Less than 10 cc. OPERATIVE PROCEDURE: The patient was placed on the operating table in supine position. After uneventful induction and endotracheal intubation, satisfactory general anesthesia was obtained. Next, the patient was draped in usual and customary fashion. Following this, a #3 Erika-Walter mouth gag was introduced into the oropharynx and expanded and suspended on a Bates stand. Initially, the right and left nasal chambers were packed with cottonoids saturated with Afrin nasal spray. The cottonoids were left in place for a period of approximately 10 minutes to achieve maximum vasoconstriction of the inferior turbinates bilaterally. Upon removing the cottonoids, inspection using a medium nasal speculum of the right side revealed that the patient had an area of bleeding posteriorly along the floor of the right naris. There appeared to be a very prominent blood vessel in this area. Examination of the left side revealed a similar-appearing blood vessel posteriorly along the floor of the naris. These blood vessels were extended back to the area of the choanae bilaterally. Using the suction cautery, these blood vessels were generously cauterized in the usual fashion. Both sides were cauterized. Next, a red rubber catheter was placed into the left naris and brought out through the oropharynx and clamped. Inspection of the nasopharynx with a mirror revealed that there was an area of recent bleeding on the right side at the junction of the posterior aspect of the vomer and the nasopharyngeal wall. Once again using the suction cautery this area was generously cauterized. Next, the red rubber catheter was removed and both nasal chambers were generously dusted with a hemostatic powder, Hemaderm. Next, attention was directed toward suspension microlaryngoscopy portion of procedure and therefore after removing the mouth gag, a laryngoscope was introduced into the oropharynx and the entire hypopharynx including the right and left piriform sinuses, base of tongue, valleculae and epiglottis were inspected and no evidence of any suspicious bleeding was noted. The patient was noted to have the usual prominence of vasculature/veins on the base of tongue, but this was unremarkable. Next, the tip of the laryngoscope was introduced into the laryngeal introitus, the laryngoscope was then suspended on the patient's chest using the Lewy apparatus. Next, using the Zeiss operating microscope and under magnified visualization, inspection of the laryngeal area did not reveal any evidence of any bleeding or any blood pooling in the hypopharynx. The patient was given 10 mg of Decadron intraoperatively to reduce any post laryngeal edema. No nasal packing was inserted. At this point the procedure was terminated. There were no intraoperative complications. The patient tolerated the procedure well and was returned to recovery room in satisfactory condition. MMODL / IJN: [id number] /
== END 2021-09-17 14:15 | disposition home or self-care (01) ==
LOC: OR 09:02
PROVIDERS: ATTEND Otolaryngology
DX: R04.0 Epistaxis (principal); I25.10 Atherosclerotic heart disease of native coronary artery without angina pectoris; I10 Essential (primary) hypertension; J44.9 Chronic obstructive pulmonary disease, unspecified; I69.354 Hemiplegia and hemiparesis following cerebral infarction affecting left non-dominant side; K21.9 Gastro-esophageal reflux disease without esophagitis; J43.9 Emphysema, unspecified; F17.210 Nicotine dependence, cigarettes, uncomplicated; E03.9 Hypothyroidism, unspecified; M19.90 Unspecified osteoarthritis, unspecified site; Z97.2 Presence of dental prosthetic device (complete) (partial); G47.33 Obstructive sleep apnea (adult) (pediatric); Z98.890 Other specified postprocedural states; J34.2 Deviated nasal septum; J34.3 Hypertrophy of nasal turbinates; Z79.890 Hormone replacement therapy; Z79.891 Long term (current) use of opiate analgesic; Z79.899 Other long term (current) drug therapy
CPT/HCPCS: 31536; J2250; J1100; J2710; J2405; J0690; J2001; J3010; J0131; J2704

== ENCOUNTER 2021-12-03 10:15 | Day surgery (SDC) | payer MEDICARE ==
[2021-12-02 11:42] VITALS: BMI 31.1
--- NOTE | 2021-12-02 20:01 | HP ---
HISTORY AND PHYSICAL ADDENDUM: PAST SURGERY HISTORY: Previous surgeries include: Control of right anterior and posterior epistaxis under general anesthesia and a cholecystectomy. MMPRITESH / IJN: [id number] /
--- NOTE | 2021-12-02 20:07 | HP ---
HISTORY AND PHYSICAL CHIEF COMPLAINT: Uncontrolled right anterior posterior epistaxis. HISTORY OF PRESENT ILLNESS: This patient is a 56-year-old male who is well known to my office. We initially saw this patient in the hospital for a consult last October for nasal bleeding. After the patient was discharged, we initially attempted to stop the bleeding with a regimen of Afrin and antibiotic ointment. However, because the bleeding did not stop, we subsequently took the patient to surgery, and at that time the right naris was cauterized anteriorly and posteriorly, especially along the floor of the right naris and along the vault. No packing was instituted. The patient did well for approximately a week and then the bleeding resumed. We once again tried a regimen of Afrin nasal spray and antibiotic ointment. However, once again this failed to stop his bleeding. It was therefore recommended that he be taken back to surgery again and that he undergo electrocautery of the area under general anesthesia, and most likely we will put in Merocel nasal packing at the same time. PAST MEDICAL HISTORY: He has NO KNOWN ALLERGIES TO MEDICATIONS. He smokes approximately a pack of cigarettes per day, but states that he is currently trying to quit. His current medications include Synthroid, Combivent, morphine, Ambien, lisinopril, zantac, albuterol, Prilosec, metoprolol, ipratropium/albuterol updraft treatments and baclofen. REVIEW OF SYSTEMS: CARDIOVASCULAR: Positive for hypertension and ASHD. RESPIRATORY: Positive for COPD/emphysema. GASTROINTESTINAL: Positive for GERD (gastroesophageal reflux disorder). MUSCULOSKELETAL: Positive for osteoarthritis. METABOLIC/ENDOCRINE: Positive for hypothyroidism. The remainder of the review of systems is essentially unremarkable. PHYSICAL EXAMINATION: This patient is a 66-year-old male who was alert and cooperative. HEENT examination: Patient is normocephalic. Tympanic membranes are normal. Middle ear spaces are free of any fluid or infection. Pupils equal, round, reactive to light and accommodation. Extraocular movements are within normal limits. Intranasal examination reveals severe septal deviation with no bleeding in the left naris, but the right naris has some old dried blood present, although it is not actively bleeding at the present time. Examination of posterior pharynx does not reveal any bleeding on the posterior pharyngeal wall. The remainder of the head and neck exam, including cranial nerves 2 through 12, is all within normal limits. Chest/cardiovascular: Both lung amado are clear to percussion and auscultation. The patient is in regular sinus rhythm. S1 and S2 are present without evidence of any murmurs, S3s or S4s. Peripheral pulses are bilaterally symmetrical. ABDOMEN: There is no evidence any masses, megaly or tenderness. The abdomen is soft. Skin is unremarkable. Musculoskeletal/neurological : Within normal limits. Rectal exam is deferred at this time because the patient has this done on a regular basis at his family physician's office. The remainder of physical exam is unremarkable. IMPRESSION: Right anterior posterior epistaxis. PLAN: The patient is to undergo control of right anterior posterior epistaxis under general anesthesia in the a.m. ATTENTION RNS IN THE PRE-SURGICAL AREA. I have ordered for this patient to receive 1000 mg of Ofirmev IV to be given once an intravenous line has been established. I have also ordered for this patient to receive 2 grams of Ancef IV to be given once an intravenous line has been established. If the pharmacy department sends a different pre-surgical prophylactic antibiotic besides Ancef, please cancel that order and return that medication to the pharmacy department. Also make sure that the patient's account is credited appropriately. I have discussed the risks, benefits and alternative therapies for the above-mentioned procedure and for both sedation/analgesia as well as necessary blood product administration, if indicated, as they pertain to this patient. The patient has indicated his or her understanding and acceptance of the risks and procedures discussed. MMODL / IJN: [id number] /
[~2021-12-03 10:15] MED LIST changes: -ACETAMINOPHEN IV (For NPO) 1,000 MG in EMPTY BAG 1 BAG IVPB PRN; -HYDROmorphone 0.5 MG/0.5 ML SYRINGE IVP PRN; +LIDOCAINE 1% (10MG/ML) FOR IV START INTRADERMA PRN
[2021-12-03] MEDS ORDERED: ACETAMINOPHEN IV (For NPO) 1,000 MG in EMPTY BAG 1 BAG IVPB ONE (11:30)
[2021-12-03] MEDS ORDERED: MIDAZOLAM 2 MG/2 ML VIAL ONE (11:47)
[2021-12-03] MEDS ORDERED: fentaNYL (PF) 50 MCG/ML 2 ML AMP ONE (11:47)
[2021-12-03] MEDS ORDERED: PROPOFOL 10 MG/ML 20 ML VIAL IV ONE (11:47)
[2021-12-03] MEDS ORDERED: LIDOCAINE 1% INJ 10MG/ML (20 ML MDV) ONE (11:47)
[2021-12-03] MEDS ORDERED: SUCCINYLCHOLINE CHLORIDE 100 MG/5 ML SYR IV ONE (11:47)
[2021-12-03] MEDS ORDERED: OXYMETAZOLINE 0.05% NASL SPRAY 1 SPRAY BOTTLE MISCELLANE ONE (12:08)
[2021-12-03] MEDS ORDERED: THROMBIN (BOVINE) 5,000 UNIT VIAL TOPICAL ONE ×6 (12:09→13:14)
[2021-12-03] MEDS ORDERED: BACITRACIN ZINC 500 UNIT/GM OINT 28.4 GM TUBE TOPICAL ONE ×2 (12:13→12:57)
[2021-12-03] MEDS ORDERED: LACTATED RINGERS 1,000 ML IV ONE (12:30)
[2021-12-03 13:58] VITALS: TEMP 97
[2021-12-03] MEDS: HYDROmorphone 0.5 MG/0.5 ML SYRINGE IVP PRN ×2 (14:32→14:50)
[2021-12-03] MEDS ORDERED: ALBUTEROL NEBULIZED 2.5 MG/3 ML INHALATION ONE (14:39)
[2021-12-03] MEDS ORDERED: hydrALAZINE HCL 20 MG/ML 1 ML VIAL IV ONE ×2 (15:12→16:23)
[2021-12-03 15:21] VITALS: RESP 20
[2021-12-03] MEDS ORDERED: hydrALAZINE HCL 20 MG/ML 1 ML VIAL ONE (16:19)
[2021-12-03 16:37] VITALS: BP 150/86; PULSE 92
--- NOTE | 2021-12-06 17:11 | OP ---
OPERATIVE REPORT DATE OF SURGERY: 12/03/2021. PREOP DIAGNOSIS: Severe right anterior/posterior epistaxis. POSTOPERATIVE DIAGNOSIS: Severe right anterior/posterior epistaxis. ANESTHESIA: General. OPERATIVE PROCEDURE: Control of severe anterior/posterior epistaxis with electrocautery and insertion of a 10 cm Merocel nasal tampon. OPERATING SURGEON: Dr. Vences. COMPLICATIONS: None. ESTIMATED BLOOD LOSS: Less than 20 mL. OPERATIVE PROCEDURE: The patient was placed on the operating table in supine position. After uneventful induction and an endotracheal intubation, satisfactory general anesthesia was obtained. Next, the patient was draped in usual and customary fashion. Initially, the right naris was packed with cottonoids which had been saturated with Afrin nasal spray. These were left in place for a period of approximately 10 minutes to achieve maximum vasoconstriction of the inferior turbinates. Next, using various sizes of nasal speculums, the right naris was inspected and was found that there were several areas of bleeding on the anterior septum and also posteriorly on the septum. In addition to this, after inserting a Erika Walter mouth gag into the oropharynx and expanding and suspending it on a Bates stand, inspection of the nasopharynx with a mirror (after inserting a red rubber catheter into the into the left naris to elevate the soft palate) revealed there was an area of bleeding on the floor of the right naris posteriorly. This area was cauterized with suction cautery in the usual fashion. Next, the bleeding sites on the anterior and posterior septum were also cauterized using suction cautery. Next, the entire nasal septum was coated with bacitracin appointment. Following this, the right naris was dusted with a Della hemostatic agent. Next, a nasal tampon was prepared by lubricating it with bacitracin ointment and spraying this 10 mm Merocel nasal tampon with the Della powder and carefully inserting it along the floor of the right naris until it was well seated. Following this, using a 10 mm syringe with a 20-gauge needle on it, liquid thrombin was injected into the Merocel sponge to inflate it. This Merocel sponge was then saturated by multiple injections of the liquid thrombin. A mustache dressing was prepared and applied to the patient's nose. At this point, the procedure was terminated. There were no intraoperative complications. The patient tolerated the procedure well and was returned to the recovery room in satisfactory condition. MMODL / IJN: [id number] /
== END 2021-12-03 16:51 | disposition home or self-care (01) ==
LOC: OR 10:15
PROVIDERS: ATTEND Otolaryngology
DX: R04.0 Epistaxis (principal); F17.210 Nicotine dependence, cigarettes, uncomplicated; I25.10 Atherosclerotic heart disease of native coronary artery without angina pectoris; I10 Essential (primary) hypertension; J43.9 Emphysema, unspecified; K21.9 Gastro-esophageal reflux disease without esophagitis; M19.90 Unspecified osteoarthritis, unspecified site; E03.9 Hypothyroidism, unspecified; Z90.49 Acquired absence of other specified parts of digestive tract; Z98.890 Other specified postprocedural states; Z97.2 Presence of dental prosthetic device (complete) (partial); Z79.890 Hormone replacement therapy; Z79.891 Long term (current) use of opiate analgesic; Z79.51 Long term (current) use of inhaled steroids; Z79.899 Other long term (current) drug therapy
CPT/HCPCS: 30905; J2250; J0360; J1100; J0690; J2405; J2001; J3010; J0131; J0330; J2704; J1170

== ENCOUNTER 2022-06-21 11:13 | Inpatient (IN) | payer MEDICARE ==
[2022-06-21] MEDS ORDERED: NALOXONE 0.4 MG/ML 1 ML VIAL IVP STA (11:24)
[2022-06-21 11:41] LABS: HCT 43.7 % (39.0-53.0); HGB 14.4 gm/dL (13.0-17.5); MCH 31.8 pg (25.0-35.0); MCV 96.5 fL (80.0-100.0); Mean Platelet Volume 10.7; Platelet Count 98 k/uL (150-450); RBC 4.53 m/uL (4.30-5.90); RDW 12.6 % (11.5-15.5); WBC 23.2 k/uL (3.8-10.6)
[2022-06-21 11:50] LABS: ALT 40 U/L (4-49); AST 71 U/L (17-59); African American GFR (CKD) 34 (>60 ml/min/1.73 sqM); Albumin 3.7 g/dL (3.5-5.0); Alcohol <10 mg/dL; Alkaline Phosphatase 99 U/L (38-126); Anion Gap 8 mmol/L; Blood Urea Nitrogen 51 mg/dL (9-20); Calcium 8.9 mg/dL (8.4-10.2); Carbon Dioxide 25 mmol/L (22-30); Chloride 96 mmol/L (98-107); Glucose 116 mg/dL (74-99); Non-African American GFR(CKD) 29 (>60 ml/min/1.73 sqM); Potassium 4.9 mmol/L (3.5-5.1); Sodium 129 mmol/L (137-145); Total Bilirubin 1.2 mg/dL (0.2-1.3); Total Protein 7.1 g/dL (6.3-8.2)
[2022-06-21 11:53] LABS: VBG PH 7.31 (7.31-7.41)
[2022-06-21] MEDS ORDERED: LORazepam 2 MG/ML INJ IV STA (11:53)
[2022-06-21 11:54] LABS: Glucose,Whole Blood 111 mg/dL (70-110)
[2022-06-21 11:58] LABS: INR 1.4 (<1.2); Partial Thromboplastin Time 32.9 sec (22.0-30.0); Prothrombin Time 14.7 sec (9.0-12.0)
[2022-06-21] MEDS ORDERED: SODIUM CHLORIDE 0.9% 500 ML 500 ML IV ONE (11:59)
[2022-06-21] MEDS: SODIUM CHLORIDE 0.9% 1,000 ML IV SCH (12:05)
--- NOTE | 2022-06-21 12:09 | XR ---
EXAMINATION TYPE: XR chest 1V portable DATE OF EXAM: 06/21/2022 COMPARISON: 09/07/2021 INDICATION: Fall, acute mental status changes TECHNIQUE: Single frontal view of the chest is obtained. Lung apex partially obscured by overlying ch in. FINDINGS: The heart size is normal. The pulmonary vasculature is normal. The lungs are clear. IMPRESSION: 1. No acute pulmonary process.
--- NOTE | 2022-06-21 12:10 | XR ---
EXAMINATION TYPE: XR pelvis AP view DATE OF EXAM: 06/21/2022 COMPARISON: None HISTORY: Fall, pain TECHNIQUE: AP pelvis FINDINGS: Femoral heads articulate with the acetabulum. Joint spaces are preserved. Symphysis pubis a nd sacroiliac joints are normal. No acute fractures are evident. Normal bowel gas present. IMPRESSION: 1. No acute abnormality. Pelvis
--- NOTE | 2022-06-21 12:17 | ED ---
General Adult HPI - General Chief complaint: Neuro Symptoms/Deficit Stated complaint: AMS Time Seen by Provider: 06/21/22 11:16 Source: patient, EMS, RN notes reviewed, old records reviewed Mode of arrival: EMS - History of Present Illness Initial comments: 67-year-old male presenting with altered mental status, multiple falls. The details of the falls are known. The history is quite limited, only available history and presentation is from paramedics who state that over the past 12 hours the patient has been altered. Uncertain if there was head trauma. Only a initial reported medications are metoprolol and Lasix. The patient will moan to sternal rub but otherwise is unresponsive. He was hypoxic upon arrival placed on supplemental oxygen, given albuterol Atrovent and Solu-Medrol by paramedics. - Related Data Home Medications Medication Instructions Recorded Confirmed Baclofen [Lioresal] 10 mg PO HS 02/26/19 06/21/22 Ipratropium/Albuterol Sulfate 1 puff INHALATION RT-QID 02/26/19 06/21/22 [Combivent Respimat Inhaler] Metoprolol Succinate [Toprol XL] 50 mg PO QAM 02/26/19 06/21/22 Omeprazole [PriLOSEC] 20 mg PO AC-BRKFST 02/26/19 06/21/22 HYDROcodone/APAP 10-325MG [[place] 1 tab PO Q6HR PRN 09/07/21 06/21/22 10-325] Levothyroxine Sodium [Synthroid] 88 mcg PO QAM 09/07/21 06/21/22 Morphine Sulfate ER [Ms Contin] 15 mg PO HS 09/07/21 06/21/22 Zolpidem Tartrate [Ambien Cr] 12.5 mg PO HS PRN 09/07/21 06/21/22 lisinopriL [Prinivil] 20 mg PO QAM 09/07/21 06/21/22 Albuterol Sulfate [Proventil Hfa] 1 - 2 puff INHALATION Q6HR PRN 06/21/22 06/21/22 Aspirin EC [Ecotrin Low Dose] 81 mg PO DAILY 06/21/22 06/21/22 Ergocalciferol [Vitamin D2 (1250 1,250 mcg PO Q7D 06/21/22 06/21/22 Mcg = 34834 Iu)] Fluticasone Nasal [place] [Flonase 1 spray EA NOSTRIL DAILY 06/21/22 06/21/22 Nasal [place]] Furosemide [Lasix] 20 mg PO DAILY 06/21/22 06/21/22 Mirtazapine [Remeron] 15 mg PO HS 06/21/22 06/21/22 hydrOXYzine HCL [Atarax] 10 mg PO HS 06/21/22 06/21/22 traZODone HCL [Desyrel] 100 mg PO HS 06/21/22 06/21/22 Allergies Allergy/AdvReac Type Severity Reaction Status Date / Time No Known Allergies Allergy Verified 06/21/22 11:22 Review of Systems ROS Statement: Those systems with pertinent positive or pertinent negative responses have been documented in the HPI. ROS Other: All systems not noted in ROS Statement are negative. Past Medical History Past Medical History: Asthma, Cancer, CVA/TIA, GERD/Reflux, Hyperlipidemia, Hypertension, Thyroid Disorder Additional Past Medical History / Comment(s): Hx. of Brain Aneurysm, SKIN CANCER, CHRONIC NOSEBLEEDS History of Any Multi-Drug Resistant Organisms: None Reported Past Surgical History: Cholecystectomy, Orthopedic Surgery, Tonsillectomy Additional Past Surgical History / Comment(s): Knee surgery, Endovascular coiling for Brain Aneurysm.LESION REMOVED , SUSPENSION MICROLARYNGOSCOPY Past Anesthesia/Blood Transfusion Reactions: Previous Problems w/ Anesthesia Additional Past Anesthesia/Blood Transfusion Reaction / Comment(s): Woke up during surgery. Past Psychological History: Anxiety Smoking Status: Current every day smoker Past Alcohol Use History: None Reported Past Drug Use History: None Reported - Past Family History Mother Family Medical History: Cancer General Exam General appearance: obtunded, in distress Head exam: Present: atraumatic, normocephalic Eye exam: Present: normal appearance, PERRL ENT exam: Present: mucous membranes dry Neck exam: Present: normal inspection Respiratory exam: Present: respiratory distress, wheezes Cardiovascular Exam: Present: regular rate, normal rhythm GI/Abdominal exam: Present: soft, distended. Absent: tenderness, guarding, rebound Extremities exam: Present: normal capillary refill, pedal edema Neurological exam: Absent: alert, oriented X3, motor sensory deficit (Patient is minimally responsive, he is protecting his airway. He has negative Babinski bilaterally. He is moving all extremities symmetrically but is unable to cooperate with complete neuro exam.) Skin exam: Present: warm, dry, intact. Absent: cyanosis, diaphoretic Course Vital Signs 06/21/22 06/21/22 06/21/22 11:15 11:25 11:33 Temperature 97.3 F L Pulse Rate 82 112 H Respiratory 16 16 16 Rate Blood Pressure 121/67 166/83 O2 Sat by Pulse 97 100 Oximetry 06/21/22 12:30 Temperature Pulse Rate 104 H Respiratory 18 Rate Blood Pressure 151/77 O2 Sat by Pulse 99 Oximetry EKG Findings - EKG Comments: EKG Findings:: EKG: Sinus rhythm rate of 81, WA interval 180, QRS duration 110, QTC 47, no ST segment elevation. T waves are downgoing in the lateral precordial leads in the inferior leads. Medical Decision Making - Medical Decision Making 15-year-old male who had presented with altered mental status. He did not appear to be focal. The exact details of the fall are not initially no but after discussing with the family had fallen twice once in the bathroom and once in the bedroom. He does take both morphine and [place] for chronic pain. According to family member there is a possibility that he may overuse these medications. He does respond to Narcan in the emergency department becoming more alert. Workup was continued including CT brain CT cervical spine, chest and pelvis. There is no traumatic injury. His laboratory tests reveal a leukocytosis with white count of 23. He was given steroids by EMS prior to arrival. There is no other source of infection identified currently. His CO2 is mildly elevated at 52. He is hyponatremic at 129. He has an acute kidney injury with creatinine of 2.4. Urinalysis and urine drug screen are pending. Family indicates that he did complain of some low back pain and therefore x-ray will be obtained. These results are pending. I discussed case with Dr. Monroy who will admit. He will be treated for acute kidney injury, likely opiate overdose, and COPD. - Lab Data Result diagrams: 06/21/22 11:26 06/21/22 11:26 Lab Results 06/21/22 06/21/22 06/21/22 Range/Units 11:26 11:26 11:26 WBC 23.2 H (3.8-10.6) k/uL RBC 4.53 (4.30-5.90) m/uL Hgb 14.4 (13.0-17.5) gm/dL Hct 43.7 (39.0-53.0) % MCV 96.5 (80.0-100.0) fL MCH 31.8 (25.0-35.0) pg MCHC 33.0 (31.0-37.0) g/dL RDW 12.6 (11.5-15.5) % Plt Count 98 L (150-450) k/uL MPV 10.7 Neutrophils % (Manual) 87 % Band Neuts % (Manual) 3 % Lymphocytes % (Manual) 4 % Monocytes % (Manual) 5 % Eosinophils % (Manual) 1 % Neutrophils # (Manual) 20.80 H (1.3-7.7) k/uL Lymphocytes # (Manual) 0.93 L (1.0-4.8) k/uL Monocytes # (Manual) 1.16 H (0-1.0) k/uL Eosinophils # (Manual) 0.23 (0-0.7) k/uL Nucleated RBCs 0 (0-0) /100 WBC Manual Slide Review Performed Toxic Vacuolation Present PT 14.7 H (9.0-12.0) sec INR 1.4 H (<1.2) APTT 32.9 H (22.0-30.0) sec VBG pH (7.31-7.41) VBG pCO2 (37-51) mmHg VBG HCO3 (24-28) mmol/L Sodium 129 L (137-145) mmol/L Potassium 4.9 (3.5-5.1) mmol/L Chloride 96 L (98-107) mmol/L Carbon Dioxide 25 (22-30) mmol/L Anion Gap 8 mmol/L BUN 51 H (9-20) mg/dL Creatinine 2.24 H (0.66-1.25) mg/dL Est GFR (CKD-EPI)AfAm 34 (>60 ml/min/1.73 sqM) Est GFR (CKD-EPI)NonAf 29 (>60 ml/min/1.73 sqM) Glucose 116 H (74-99) mg/dL POC Glucose (mg/dL) (70-110) mg/dL POC Glu Press Pipe Inspector ID Calcium 8.9 (8.4-10.2) mg/dL Total Bilirubin 1.2 (0.2-1.3) mg/dL AST 71 H (17-59) U/L ALT 40 (4-49) U/L Alkaline Phosphatase 99 (38-126) U/L Ammonia (<30) umol/L Troponin I (0.000-0.034) ng/mL Total Protein 7.1 (6.3-8.2) g/dL Albumin 3.7 (3.5-5.0) g/dL Serum Alcohol <10 mg/dL 06/21/22 06/21/22 06/21/22 Range/Units 11:26 11:26 11:26 WBC (3.8-10.6) k/uL RBC (4.30-5.90) m/uL Hgb (13.0-17.5) gm/dL Hct (39.0-53.0) % MCV (80.0-100.0) fL MCH (25.0-35.0) pg MCHC (31.0-37.0) g/dL RDW (11.5-15.5) % Plt Count (150-450) k/uL MPV Neutrophils % (Manual) % Band Neuts % (Manual) % Lymphocytes % (Manual) % Monocytes % (Manual) % Eosinophils % (Manual) % Neutrophils # (Manual) (1.3-7.7) k/uL Lymphocytes # (Manual) (1.0-4.8) k/uL Monocytes # (Manual) (0-1.0) k/uL Eosinophils # (Manual) (0-0.7) k/uL Nucleated RBCs (0-0) /100 WBC Manual Slide Review Toxic Vacuolation PT (9.0-12.0) sec INR (<1.2) APTT (22.0-30.0) sec VBG pH 7.31 (7.31-7.41) VBG pCO2 52 H (37-51) mmHg VBG HCO3 26 (24-28) mmol/L Sodium (137-145) mmol/L Potassium (3.5-5.1) mmol/L Chloride (98-107) mmol/L Carbon Dioxide (22-30) mmol/L Anion Gap mmol/L BUN (9-20) mg/dL Creatinine (0.66-1.25) mg/dL Est GFR (CKD-EPI)AfAm (>60 ml/min/1.73 sqM) Est GFR (CKD-EPI)NonAf (>60 ml/min/1.73 sqM) Glucose (74-99) mg/dL POC Glucose (mg/dL) (70-110) mg/dL POC Glu Press Pipe Inspector ID Calcium (8.4-10.2) mg/dL Total Bilirubin (0.2-1.3) mg/dL AST (17-59) U/L ALT (4-49) U/L Alkaline Phosphatase (38-126) U/L Ammonia 16 (<30) umol/L Troponin I 0.022 (0.000-0.034) ng/mL Total Protein (6.3-8.2) g/dL Albumin (3.5-5.0) g/dL Serum Alcohol mg/dL 06/21/22 Range/Units 11:53 WBC (3.8-10.6) k/uL RBC (4.30-5.90) m/uL Hgb (13.0-17.5) gm/dL Hct (39.0-53.0) % MCV (80.0-100.0) fL MCH (25.0-35.0) pg MCHC (31.0-37.0) g/dL RDW (11.5-15.5) % Plt Count (150-450) k/uL MPV Neutrophils % (Manual) % Band Neuts % (Manual) % Lymphocytes % (Manual) % Monocytes % (Manual) % Eosinophils % (Manual) % Neutrophils # (Manual) (1.3-7.7) k/uL Lymphocytes # (Manual) (1.0-4.8) k/uL Monocytes # (Manual) (0-1.0) k/uL Eosinophils # (Manual) (0-0.7) k/uL Nucleated RBCs (0-0) /100 WBC Manual Slide Review Toxic Vacuolation PT (9.0-12.0) sec INR (<1.2) APTT (22.0-30.0) sec VBG pH (7.31-7.41) VBG pCO2 (37-51) mmHg VBG HCO3 (24-28) mmol/L Sodium (137-145) mmol/L Potassium (3.5-5.1) mmol/L Chloride (98-107) mmol/L Carbon Dioxide (22-30) mmol/L Anion Gap mmol/L BUN (9-20) mg/dL Creatinine (0.66-1.25) mg/dL Est GFR (CKD-EPI)AfAm (>60 ml/min/1.73 sqM) Est GFR (CKD-EPI)NonAf (>60 ml/min/1.73 sqM) Glucose (74-99) mg/dL POC Glucose (mg/dL) 111 H (70-110) mg/dL POC Glu Press Pipe Inspector ID Gaby Gay Calcium (8.4-10.2) mg/dL Total Bilirubin (0.2-1.3) mg/dL AST (17-59) U/L ALT (4-49) U/L Alkaline Phosphatase (38-126) U/L Ammonia (<30) umol/L Troponin I (0.000-0.034) ng/mL Total Protein (6.3-8.2) g/dL Albumin (3.5-5.0) g/dL Serum Alcohol mg/dL Disposition Clinical Impression: AMS (altered mental status), Opiate dependence, COPD (chronic obstructive pulmonary disease), YUDI (acute kidney injury) Disposition: ADMITTED IP TO THIS HOSP Condition: Stable Is patient prescribed a controlled substance at d/c from ED?: No Referrals: Carlos Pop MD [Primary Care Provider] - 1-2 days Time of Disposition: 13:32
--- NOTE | 2022-06-21 12:51 | CT ---
EXAMINATION TYPE: CT brain cspine wo con CT DLP: 1648 mGycm, Automated exposure control for dose reduction was used. DATE OF EXAM: 06/21/2022 12:34 PM COMPARISON: Soft tissue neck 09/07/2021 CLINICAL INDICATION:Male, 67 years old with history of fall; TECHNIQUE: Brain: Multiple axial CT images of the brain were obtained without IV contrast. Cspine: Axial CT images from the skull base to the inferior aspect of T2 we obtained without intraven ous contrast. Coronal and sagittal reformatted images were also reviewed. FINDINGS: Brain: Extra-axial spaces: No abnormal extra-axial fluid collections. Ventricular system: Within normal limits Cerebral parenchyma: No acute intraparenchymal hemorrhage or mass effect. The pearl-white junction is well differentiated. Cerebellum: Unremarkable. Mass effect: No evidence of midline shift. Intracranial vasculature: Suspected vascular metallic clip seen just anterior to the angelina. Atheroscle rosis of the intracranial vasculature. Soft tissues: Normal. Calvarium/osseous structures: No depressed skull fracture. Paranasal sinuses and mastoid air cells: Clear. Visualized orbits: Orbital contents are intact. Cervical spine: Fracture: None. Osseous structures: Multilevel degenerative disc disease changes with endplate spurring and disc oste ophyte complex's. Vertebral alignment: Straightening of the vertebral alignment. Spinal canal/Neural Foramina: Disc osteophyte complexes at C5-C6 with at least mild spinal canal sten osis. Facet joint uncovertebral joint arthropathy scattered throughout the cervical spine with varyin g degrees of mild neural foraminal stenosis worse at C5-C6 with mild bilateral neural foraminal steno sis.7. Neck soft tissues: Prevertebral soft tissues are within normal limits. Other: The airway is patent. Mild paraseptal and centrilobular emphysema changes. Atherosclerosis at the carotid bifurcations. IMPRESSION: 1. No acute intracranial process. 2. No evidence of cervical spine fracture. 3. Mild multilevel degenerative disc disease with mild spinal canal and neural foraminal stenosis at C5-C6. 4. COPD changes. 5. Atherosclerosis of the carotid bifurcations.
[2022-06-21 13:09] LABS: Band Neutrophils % 3 %; Eosinophils # (M) 0.23 k/uL (0-0.7); Lymphocytes # (M) 0.93 k/uL (1.0-4.8); Monocytes # (M) 1.16 k/uL (0-1.0); Neutrophils % (M) 87 %; Nucleated Red Blood Cells 0 /100 WBC (0-0); Total Cells Counted 100; Toxic Vacuolation Present
[2022-06-21 13:18] LABS: Appearance,Urine Cloudy (Clear); Bacteria,Urine Rare /hpf; Bilirubin,Urine Negative (Negative); Blood,Urine Trace (Negative); Color,Urine Yellow; Glucose,Urine (UA) Trace (Negative); Hyaline Casts,Urine 19 /lpf (0-2); Ketones,Urine Negative (Negative); Leukocyte Esterase,Urine Negative (Negative); Mucus,Urine Rare /hpf; Nitrite,Urine Negative (Negative); PH, Urine 5.5 (5.0-8.0); Protein,Urine Trace (Negative); RBC,Urine 4 /hpf (0-5); Specific Gravity,Urine 1.011 (1.001-1.035); Squamous Epithelial Cell,Urine <1 /hpf (0-4); Urobilinogen,Urine <2.0 mg/dL (<2.0); WBC,Urine 14 /hpf (0-5)
[2022-06-21] MEDS ORDERED: NALOXONE 0.4 MG/ML 1 ML VIAL IV PRN (13:29)
[2022-06-21 13:33] LABS: Amphetamine Screen,Urine Not Detected (NotDetected); Barbiturate Screen,Urine Not Detected (NotDetected); Benzodiazepines Screen,Urine Not Detected (NotDetected); Cocaine Screen,Urine Not Detected (NotDetected); Methadone Screen, Urine Not Detected (NotDetected); Opiate Screen,Urine Detected (NotDetected); Oxycodone Screen, Urine Not Detected (NotDetected); Phencyclidine Screen,Urine Not Detected (NotDetected); Tricyclic Antidepressant,Urine Not Detected (NotDetected); Urn Cannabinoid Scrn Not Detected (NotDetected)
--- NOTE | 2022-06-21 13:57 | XR ---
EXAMINATION TYPE: XR lumbar spine 2 or 3V DATE OF EXAM: 06/21/2022 1:43 PM INDICATION: Patient age:Male; 67 years old; Reason for study: fall; [facility]. COMPARISON: Radiograph same day. TECHNIQUE: Frontal, lateral and coned in L5-S1 lateral views of the spine. FINDINGS: No evidence of any acute osseous pathology. Mild marginal endplate osteophytosis. There is facet joint arthropathy throughout the spine. No evidence of loss of vertebral body height is seen. There is normal alignment of the lumbar vertebral bodies. Atherosclerosis of the arterial vasculature . IMPRESSION: No acute process. Mild multilevel disc degeneration changes.
[2022-06-21] MEDS: methylPREDNISolone SOD SUCCI 125 MG/2 ML VIAL IV SCH (16:26)
[2022-06-21] MEDS: IPRATROPIUM-ALBUTEROL 3 ML NEB INHALATION SCH ×2 (20:46)
[2022-06-22] MEDS: methylPREDNISolone SOD SUCCI 125 MG/2 ML VIAL IV SCH ×2 (00:33→08:15)
[2022-06-22] MEDS: SODIUM CHLORIDE 0.9% 1,000 ML IV SCH ×2 (00:37→08:17)
[2022-06-22 02:17] LABS: Glucose,Whole Blood 188 mg/dL (70-110)
[2022-06-22 02:35] LABS: Albumin 3.5 g/dL (3.5-5.0); Potassium 4.9 mmol/L (3.5-5.1); Total Bilirubin 1.1 mg/dL (0.2-1.3); Total Protein 6.8 g/dL (6.3-8.2)
[2022-06-22] MEDS ORDERED: METOPROLOL TARTRATE 5 MG/5 ML VIAL IVP ONE (02:38)
[2022-06-22] MEDS ORDERED: BUDESONIDE 0.25 MG/2 ML NEBU INHALATION SCH ×2 (02:38→08:00)
[2022-06-22 02:40] LABS: Basophils % (A) 0 %; Eosinophils % (A) 0 %; HCT 45.6 % (39.0-53.0); HGB 14.5 gm/dL (13.0-17.5); Lymphocytes # (A) 1.4 k/uL (1.0-4.8); Lymphocytes % (A) 7 %; MCHC 31.8 g/dL (31.0-37.0); MCV 97.3 fL (80.0-100.0); Monocytes # (A) 0.9 k/uL (0-1.0); Monocytes % (A) 4 %; Neutrophils # (A) 19.3 k/uL (1.3-7.7); Neutrophils % (A) 88 %; Platelet Count 116 k/uL (150-450); RBC 4.69 m/uL (4.30-5.90); RDW 12.8 % (11.5-15.5); WBC 21.9 k/uL (3.8-10.6)
[2022-06-22] MEDS ORDERED: FUROSEMIDE 10 MG/ML 2 ML VIAL IV ONE (02:48)
[2022-06-22] MEDS: IPRATROPIUM-ALBUTEROL 3 ML NEB INHALATION PRN (03:05)
[2022-06-22] MEDS: LORazepam 2 MG/ML INJ IV PRN ×2 (05:02→08:29)
--- NOTE | 2022-06-22 07:30 | XR ---
EXAMINATION TYPE: XR wrist complete RT DATE OF EXAM: 06/22/2022 COMPARISON: NONE HISTORY: 67 year-old male right wrist pain TECHNIQUE: 3 views FINDINGS: There is positive ulnar variance. Some cortical irregularity at the fifth metacarpal mid shaft ingest ing sequela of remote injury. Otherwise, radiocarpal and midcarpal compartment appear intact. No acut e fracture, subluxation, dislocation. Mild degenerative spurring first CMC and triscaphe joints. IMPRESSION: 1. Suspect old healed fracture deformity of the fifth metacarpal. 2. Positive ulnar variance may contribute to ulnar impaction syndrome. Query any chronic ulnar-sided wrist pain. 3. Mild osteoarthritic change at the base of thumb. 4. No acute osseous abnormality seen.
[2022-06-22] MEDS ORDERED: HEPARIN SODIUM 1,000 UN/ML (10ML VL) IV PRN (08:39)
[2022-06-22] MEDS ORDERED: HEPARIN SODIUM 1,000 UN/ML (10ML VL) IV ONE (08:39)
[2022-06-22] MEDS: IPRATROPIUM-ALBUTEROL 3 ML NEB INHALATION SCH ×4 (08:45→20:25)
[2022-06-22] MEDS ORDERED: HEPARIN SOD,PORK IN 0.45% NACL 25,000 UNIT in 0.45% NACL 1 250ML.BAG IV SCH (08:45)
[2022-06-22] MEDS ORDERED: FUROSEMIDE 20 MG TAB PO SCH (09:00)
[2022-06-22 09:33] LABS: Basophils # (A) 0.1 k/uL (0-0.2); Basophils % (A) 0 %; Eosinophils # (A) 0.1 k/uL (0-0.7); Eosinophils % (A) 0 %; HCT 45.6 % (39.0-53.0); HGB 14.8 gm/dL (13.0-17.5); Lymphocytes # (A) 1.4 k/uL (1.0-4.8); Lymphocytes % (A) 6 %; MCH 31.9 pg (25.0-35.0); MCHC 32.5 g/dL (31.0-37.0); MCV 98.3 fL (80.0-100.0); Mean Platelet Volume 10.6; Monocytes # (A) 1.2 k/uL (0-1.0); Monocytes % (A) 5 %; Neutrophils # (A) 18.8 k/uL (1.3-7.7); Neutrophils % (A) 86 %; Platelet Count 118 k/uL (150-450); RBC 4.64 m/uL (4.30-5.90); RDW 12.9 % (11.5-15.5); WBC 21.9 k/uL (3.8-10.6)
[2022-06-22 09:41] LABS: INR 1.4 (<1.2); Partial Thromboplastin Time 28.3 sec (22.0-30.0)
--- NOTE | 2022-06-22 10:22 | P.NPCON ---
History of Present Illness - Reason for Consult acute renal failure - History of Present Illness Reason for consultation: Acute kidney injury History of present illness: Patient is a 67-year-old male seen in renal consultation for acute kidney injury. Patient's creatinine on admission was 2.24 and is 1.28 today. Baseline creatinine from April 2022 was 0.8. Patient presented to the hospital due to weakness and falls. Patient is currently not a reliable historian. is present at bedside who provides the history. The states that he fell 2 days ago in the bathroom and then again off the bed the next morning. He was weak and not able to ambulate much. Oral intake the last couple of weeks has been fair. No vomiting or diarrhea. No hematuria. Denies use of nonsteroidals. She states his temperature was around 98F at home. This admission his temperature was as high as 99.7F. He is currently undergoing echocardiogram. He was taking Lasix at home. He is currently receiving IV fluids and also Lasix. Lisinopril is currently held that she also takes at home. Chest x-ray showed no acute pulmonary process. CT of the brain and spine showed no acute intracranial process and no evidence of cervical spine fracture. He currently has a [place] catheter and is nonoliguric. states he has not been vaccinated against COVID-19. Vital signs - had a fever this morning. Tachycardic. General: Resting in bed. HEENT: Head exam is unremarkable. LUNGS: Breath sounds decreased. HEART: Tachycardic. ABDOMEN: Soft, no distention. EXTREMITITES: No edema. Past Medical History Past Medical History: Asthma, Cancer, COPD, CVA/TIA, GERD/Reflux, Hyperlipidemia, Hypertension, Thyroid Disorder Additional Past Medical History / Comment(s): Hx. of Brain Aneurysm, SKIN CANCER, CHRONIC NOSEBLEEDS History of Any Multi-Drug Resistant Organisms: None Reported Past Surgical History: Cholecystectomy, Orthopedic Surgery, Tonsillectomy Additional Past Surgical History / Comment(s): Knee surgery, Endovascular coiling for Brain Aneurysm.LESION REMOVED , SUSPENSION MICROLARYNGOSCOPY Past Anesthesia/Blood Transfusion Reactions: Previous Problems w/ Anesthesia Additional Past Anesthesia/Blood Transfusion Reaction / Comment(s): Woke up during surgery. Past Psychological History: Anxiety Additional Psychological History / Comment(s): High anxiety when entering the hospital. Smoking Status: Current every day smoker Past Alcohol Use History: None Reported Additional Past Alcohol Use History / Comment(s): Smokes 1 PPD. STARTED SMOKING AT AGE 8 Past Drug Use History: None Reported Additional Drug Use History / Comment(s): NO MARIJUANA SINCE 2015 - Past Family History Mother Family Medical History: Cancer Additional Family Medical History / Comment(s): uterine cancer Father Family Medical History: Cancer, CVA/TIA Additional Family Medical History / Comment(s): skin cancer Sister(s) Family Medical History: Cancer Additional Family Medical History / Comment(s): skin cancer Medications and Allergies Home Medications Medication Instructions Recorded Confirmed Type Baclofen [Lioresal] 10 mg PO HS 02/26/19 06/21/22 History Ipratropium/Albuterol Sulfate 1 puff INHALATION RT-QID 02/26/19 06/21/22 History [Combivent Respimat Inhaler] Metoprolol Succinate [Toprol XL] 50 mg PO QAM 02/26/19 06/21/22 History Omeprazole [PriLOSEC] 20 mg PO AC-BRKFST 02/26/19 06/21/22 History HYDROcodone/APAP 10-325MG [[place] 1 tab PO Q6HR PRN 09/07/21 06/21/22 History 10-325] Levothyroxine Sodium [Synthroid] 88 mcg PO QAM 09/07/21 06/21/22 History Morphine Sulfate ER [Ms Contin] 15 mg PO HS 09/07/21 06/21/22 History Zolpidem Tartrate [Ambien Cr] 12.5 mg PO HS PRN 09/07/21 06/21/22 History lisinopriL [Prinivil] 20 mg PO QAM 09/07/21 06/21/22 History Albuterol Sulfate [Proventil Hfa] 1 - 2 puff INHALATION Q6HR PRN 06/21/22 06/21/22 History Aspirin EC [Ecotrin Low Dose] 81 mg PO DAILY 06/21/22 06/21/22 History Ergocalciferol [Vitamin D2 (1250 1,250 mcg PO Q7D 06/21/22 06/21/22 History Mcg = 69714 Iu)] Fluticasone Nasal [place] [Flonase 1 spray EA NOSTRIL DAILY 06/21/22 06/21/22 History Nasal [place]] Furosemide [Lasix] 20 mg PO DAILY 06/21/22 06/21/22 History Mirtazapine [Remeron] 15 mg PO HS 06/21/22 06/21/22 History hydrOXYzine HCL [Atarax] 10 mg PO HS 06/21/22 06/21/22 History traZODone HCL [Desyrel] 100 mg PO HS 06/21/22 06/21/22 History Allergies Allergy/AdvReac Type Severity Reaction Status Date / Time No Known Allergies Allergy Verified 06/21/22 11:22 Physical Exam Vitals: Vital Signs Temp Pulse Pulse Resp BP BP BP 06/22/22 08:00 98.4 F 132 H 24 172/91 06/22/22 04:00 99.7 F H 116 H 22 163/72 06/22/22 03:17 136 H 06/22/22 03:06 136 H 06/22/22 02:00 130 H 20 06/22/22 01:38 99.3 F 130 H 20 172/76 06/22/22 00:00 99.1 F 110 H 20 154/74 06/21/22 20:57 100 06/21/22 20:47 100 06/21/22 20:34 98.1 F 90 18 128/67 06/21/22 20:00 90 18 06/21/22 17:54 98.6 F 91 19 113/55 06/21/22 16:32 94 17 131/79 06/21/22 14:29 98 16 113/53 06/21/22 12:30 104 H 18 151/77 06/21/22 11:33 112 H 16 166/83 06/21/22 11:25 16 06/21/22 11:15 97.3 F L 82 16 121/67 Pulse Ox 06/22/22 08:00 96 06/22/22 04:00 95 06/22/22 03:17 06/22/22 03:06 06/22/22 02:00 06/22/22 01:38 97 06/22/22 00:00 98 06/21/22 20:57 06/21/22 20:47 98 06/21/22 20:34 99 06/21/22 20:00 06/21/22 17:54 97 06/21/22 16:32 93 L 06/21/22 14:29 95 06/21/22 12:30 99 06/21/22 11:33 100 06/21/22 11:25 06/21/22 11:15 97 Intake and Output 06/21/22 06/22/22 06/22/22 22:59 06:59 14:59 Output Total 150 2250 Balance -150 -2250 Output: Urine 150 2250 Other: Weight 104 kg Results - Lab Results Most recent lab results Calcium 9.0 mg/dL (8.4-10.2) 06/22/22 02:08 06/22/22 09:06 06/22/22 02:08 Assessment and Plan Plan: Assessment: 1. Acute kidney injury mostly prerenal secondary to sepsis improved with IV hydration. Creatinine was 2.24 on admission and is 1.28 today. Baseline creatinine 0.8 from April 2022. 2. Hypovolemic hyponatremia improved with IV hydration. 3. Severe sepsis possibly from UTI. ID consulted. 4. Questionable acute coronary syndrome. Currently on heparin drip. Cardiology following. Plan: Maintain IV hydration. Stop Lasix. Check renal ultrasound. Follow-up cultures. 1 g IV Rocephin now. Add hydralazine 10 mg IV every 4 hours as needed for systolic blood pressure greater than 160. Patient is currently quite agitated. Avoid nephrotoxins. Continue to monitor renal function and urine output. Follow-up echocardiogram. Thank you for the consultation. I will continue to follow the patient with you during his hospital stay.
[2022-06-22 10:28] LABS: Glucose,Whole Blood 204 mg/dL (70-110)
[2022-06-22] MEDS ORDERED: LORazepam 2 MG/ML INJ ONE (10:38)
[2022-06-22] MEDS ORDERED: LORazepam 2 MG/ML INJ IV STA ×2 (10:43→10:50)
[2022-06-22] MEDS: hydrALAZINE HCL 20 MG/ML 1 ML VIAL IVP PRN (10:45)
[2022-06-22 10:46] LABS: ABG Base Excess -4.1 mmol/L; ABG HCO3 20 mmol/L (21-25); ABG Oxygen Saturation 99.4 % (94-97); ABG PCO2 31 mmHg (35-45); ABG PH 7.42 (7.35-7.45); ABG PO2 117 mmHg (83-108); ABG TCO2 21 mmol/L (19-24); Allen Test Performed? Yes
--- NOTE | 2022-06-22 10:48 | CA ---
Transthoracic Echo Report Name: Ag Souza Age: 67 Gender: M : 1955 Exam Date: 06/22/2022 10:01 Exam Location: [place] [facility] Ht (in): 71 Wt (lb): 229 Ordering Physician: Carlos Pop MD Attending/Referring Phys: [employer] Supervisor Edith Guerrero RDCS Procedure CPT: Indications: elevated troponin Cardiac Hx: Technical Quality: Very technically difficult study Contrast 1: Lumason Total Dose (mL): 1 Contrast 2: N/A Total Dose (mL): MEASUREMENTS (Male / Female) Normal Values 2D ECHO LV Diastolic Diameter PLAX 3.8 cm 4.2 - 5.9 / 3.9 - 5.3 cm LV Systolic Diameter PLAX 1.6 cm IVS Diastolic Thickness 1.5 cm 0.6 - 1.0 / 0.6 - 0.9 cm LVPW Diastolic Thickness 1.6 cm 0.6 - 1.0 / 0.6 - 0.9 cm LV Relative Wall Thickness 0.8 RV Internal Dim ED PLAX 3.0 cm M-MODE Aortic Root Diameter MM 3.7 cm LA Systolic Diameter MM 2.3 cm LA Ao Ratio MM 0.6 AV Cusp Separation MM 2.2 cm DOPPLER AV Peak Velocity 81.8 cm/s AV Peak Gradient 2.7 mmHg MV Area PHT 7.6 cm??? MR Peak Velocity 212.9 cm/s MR Peak Gradient 18.1 mmHg Mitral E Point Velocity 53.0 cm/s Mitral A Point Velocity 45.5 cm/s Mitral E to A Ratio 1.2 MV Deceleration Time 100.2 ms TR Peak Velocity 179.3 cm/s TR Peak Gradient 12.9 mmHg Right Ventricular Systolic Press 16.8 mmHg FINDINGS Left Ventricle Moderately increased septal wall thickness. Left ventricular ejection fraction is estimated at 60-65 %. Left ventricular cavity size normal. Lumason used to visualize the heart. Right Ventricle The right ventricle is normal in size and function. Right Atrium The right atrium is normal in size. Left Atrium The left atrium is normal in size. Mitral Valve Structurally normal mitral valve without significant stenosis or prolapse. There is mild mitral regurgitation. Aortic Valve Structurally normal aortic valve without significant sclerosis or stenosis. There is no aortic regurgitation. Tricuspid Valve Structurally normal tricuspid valve without significant stenosis. Pulmonary artery systolic pressure is normal. Mild tricuspid regurgitation. Pulmonic Valve Pulmonic valve not well visualized. Pericardium Normal pericardium without effusion. Echo free space anterior to the right ventricle likely represents a fat pad. Aorta Normal aortic root dimension. CONCLUSIONS Patient tachycardic LVH with preserved LV systolic function ejection fraction was 60% Previewed by: Dr. Jose Daniel Erickson MD (Electronically Signed) Final Date: 22 June 2022 10:48
--- NOTE | 2022-06-22 11:03 | XR ---
EXAMINATION TYPE: XR chest 1V portable DATE OF EXAM: 06/22/2022 Comparison: 06/21/2022 Clinical History: 67-year-old male SOB with distress Findings: Heart normal size. Aorta and pulmonary vasculature within normal limits. Interstitial prominence has increased. Slightly patchy appearance at the left lower lung. Hyperinflation. Otherwise, no kedar con solidation or pleural effusion. Impression: COPD. Interstitial density has slightly increased, particularly in the left lower lobe. Correlate to exclude bronchitis or atypical pneumonias.
[2022-06-22 11:17] LABS: Glucose,Whole Blood 216 mg/dL (70-110)
[2022-06-22] MEDS: DEXMEDETOMIDINE/0.9% NACL(PMX) 400 MCG in EMPTY BAG 1 BAG IV SCH ×3 (11:30→17:43)
--- NOTE | 2022-06-22 11:32 | P.PN ---
Progress Note - Text Progress Note Date: 06/22/22 67-year-old man with a medical history of severe COPD, hypothyroidism, opiate dependence for osteoarthritis, hypertension who presented with altered mental status and multiple falls. The patient is a poor historian and the history is quite limited. I was involved in this patient's care due to rapid response being called due to patient's complaint of dyspnea as well as hyperactive delirium and tachycardia. Upon arrival, patient was significantly agitated, fighting against 2. restraints as well as care staff. Patient was hypertensive as well as tachycardic, saturating greater than 95%. Nursing at bedside reviewed patient's case with me and noted that patient's heart rate had been gradually increasing throughout the day as well as agitation issues getting worse throughout the day. Patient himself had complaints of shortness of breath, denied chest pain. He also reported pain in his arm and his leg. He appeared to be using accessory muscles and was tachypneic in the 40s. Throughout the day, patient was noted to have a low-grade fever of 99.7, 172/91, heart rate 147-156, respiratory rate in the 40s, 95% plus nasal cannula. CBC from this morning is reviewed and noted to have leukocytosis to 21.9. Basic metabolic panel was noted to have hyponatremia to 131, but improving creatinine from 2.24-1.28. Lactic acid from this morning was elevated at 3.1. UA from ER encounter showed trace protein, trace glucose, trace blood, 14 white blood cells, rare bacteria. Urine tox screen from ER encounter showed a positive opiate screen. Lactic acidosis drawn this morning was 3.1. ABG was reviewed and showed 7.42 pH, pCO2 of 31, pO2 of 117. D-dimer from this morning was revie mon and showed an elevation to 2.12. INR was 1.4. Chest x-ray from this morning showed increased pulmonary vascularity. Echocardiogram showed an EF of 60-65%, no evidence of pulmonary hypertension. Review of systems cannot be completed due to patient's clinical condition. Gen: Hyperactive, agitated Eyes: PERRL, no scleral injection or icterus HENT: normocephalic, atraumatic, good hearing acuity, moist mucous membranes Neck: no tracheal deviation, full range of motion Resp: Accessory muscle use, in significant distress, symmetric air expansion CVS: good distal perfusion x 4, no pitting edema GI: soft, NTTP, ND, no hepatosplenomegaly : no suprapubic tenderness, no CVAT, [place] catheter is present MSK: no clubbing, no cyanosis, no noted contractures of extremities Skin: no noted rashes, petechiae; temperature of skin is appropriate Neuro: moving all extremities without signs of weakness, CN II-XII intact Psych: Uncooperative, agitated mood Labs and imaging reviewed as above Assessment/plan: Hyperactive delirium Sinus tachycardia (Unclear mechanism, possibly anxiety driven versus pulmonary embolism versus atypical infection) -Transfer patient to the ICU, this was discussed with the paper carrier on-call -Repeat DuoNeb -ABG result appreciated -CT angiography once patient is more stable to rule out pulmonary embolism -Recommend Precedex drip -Ongoing heparin drip -Agree with ceftriaxone -Continue steroids -Strict ins and outs, daily weights I spent 40 minutes of critical care time with this patient, not including procedures
[2022-06-22] MEDS: METOPROLOL SUCCINATE (ER) 50 MG TAB.ER.24H PO SCH (11:44)
[2022-06-22] MEDS: ASPIRIN 81 MG PO SCH (11:44)
--- NOTE | 2022-06-22 12:52 | P.HPIM ---
History of Present Illness H&P Date: 06/21/22 Ag Souza, is a 67-year-old male who presented to [facility] emergency room after having a multiple falls at home, has significant mental status changes with somnolence and poor responsiveness, history per his , over the last 24 hours patient has been not feeling well, he fell twice at home, on the second time she was not able to wake him up and get him up from the floor through the bed, she called EMS and he was brought into emergency room. He was evaluated in the emergency room vital examination on presentation revealed a temperature of 97.3 pulse 82 respiration 16 blood pressure 121/67 pulse ox 97% on room air Laboratory data revealed a white blood count of 23.2 hemoglobin 14.4 platelet count 98,000 sodium 129 potassium 4.9 chloride 96 CO2 25 BUN 51 creatinine 2.24 troponin level was 0.02 COVID-19 testing was negative Testing in the emergency room revealed chest x-ray done in the emergency room did not reveal significant abnormality. Patient has a known history of degenerative disc disease with chronic pain maintained on narcotics for pain management he was given Narcan in the emergency room which led to improvement in his mental status. Patient was admitted to medical floor for further evaluation and treatment. Past Medical History Past Medical History: Asthma, Cancer, CVA/TIA, GERD/Reflux, Hyperlipidemia, Hy pertension, Thyroid Disorder Additional Past Medical History / Comment(s): Hx. of Brain Aneurysm, SKIN CANCER, CHRONIC NOSEBLEEDS History of Any Multi-Drug Resistant Organisms: None Reported Past Surgical History: Cholecystectomy, Orthopedic Surgery, Tonsillectomy Additional Past Surgical History / Comment(s): Knee surgery, Endovascular coiling for Brain Aneurysm.LESION REMOVED , SUSPENSION MICROLARYNGOSCOPY Past Anesthesia/Blood Transfusion Reactions: Previous Problems w/ Anesthesia Additional Past Anesthesia/Blood Transfusion Reaction / Comment(s): Woke up during surgery. Past Psychological History: Anxiety Smoking Status: Current every day smoker Past Alcohol Use History: None Reported Past Drug Use History: None Reported - Past Family History Mother Family Medical History: Cancer Father Family Medical History: Cancer, CVA/TIA Additional Family Medical History / Comment(s): skin cancer Sister(s) Family Medical History: Cancer Additional Family Medical History / Comment(s): skin cancer Medications and Allergies Home Medications Medication Instructions Recorded Confirmed Type Baclofen [Lioresal] 10 mg PO HS 02/26/19 06/21/22 History Ipratropium/Albuterol Sulfate 1 puff INHALATION RT-QID 02/26/19 06/21/22 History [Combivent Respimat Inhaler] Metoprolol Succinate [Toprol XL] 50 mg PO QAM 02/26/19 06/21/22 History Omeprazole [PriLOSEC] 20 mg PO AC-BRKFST 02/26/19 06/21/22 History HYDROcodone/APAP 10-325MG [[place] 1 tab PO Q6HR PRN 09/07/21 06/21/22 History 10-325] Levothyroxine Sodium [Synthroid] 88 mcg PO QAM 09/07/21 06/21/22 History Morphine Sulfate ER [Ms Contin] 15 mg PO HS 09/07/21 06/21/22 History Zolpidem Tartrate [Ambien Cr] 12.5 mg PO HS PRN 09/07/21 06/21/22 History lisinopriL [Prinivil] 20 mg PO QAM 09/07/21 06/21/22 History Albuterol Sulfate [Proventil Hfa] 1 - 2 puff INHALATION Q6HR PRN 06/21/22 06/21/22 History Aspirin EC [Ecotrin Low Dose] 81 mg PO DAILY 06/21/22 06/21/22 History Ergocalciferol [Vitamin D2 (1250 1,250 mcg PO Q7D 06/21/22 06/21/22 History Mcg = 90600 Iu)] Fluticasone Nasal [place] [Flonase 1 spray EA NOSTRIL DAILY 06/21/22 06/21/22 History Nasal [place]] Furosemide [Lasix] 20 mg PO DAILY 06/21/22 06/21/22 History Mirtazapine [Remeron] 15 mg PO HS 06/21/22 06/21/22 History hydrOXYzine HCL [Atarax] 10 mg PO HS 06/21/22 06/21/22 History traZODone HCL [Desyrel] 100 mg PO HS 06/21/22 06/21/22 History Allergies Allergy/AdvReac Type Severity Reaction Status Date / Time No Known Allergies Allergy Verified 06/21/22 11:22 Physical Exam Vitals: Vital Signs Temp Pulse Resp BP Pulse Ox 06/21/22 14:29 98 16 113/53 95 06/21/22 12:30 104 H 18 151/77 99 06/21/22 11:33 112 H 16 166/83 100 06/21/22 11:25 16 06/21/22 11:15 97.3 F L 82 16 121/67 97 Intake and Output 06/21/22 06/21/22 06/21/22 06:59 14:59 22:59 Output Total 400 Balance -400 Output: Urine 400 Straight 400 Other: Weight 104 kg In general patient is somnolent morning, moving all 4 extremities spontaneously HEENT head normocephalic and atraumatic Neck is supple no JVD no goiter no lymphadenopathy no carotid bruit Chest examination is clear to auscultation no crackles no wheezing Cardiac exam reveals regular heart sounds S1 and S2 no gallops no murmurs Abdomen is soft nontender no organomegaly with normal bowel sounds Extremity exam reveals no edema no cyanosis or clubbing Neurological examination reveals no gross focal deficits Results CBC & Chem 7: 06/22/22 09:06 06/22/22 02:08 Labs: Abnormal Lab Results - Last 24 Hours (Table) 06/21/22 06/21/22 06/21/22 Range/Units 11:26 11:26 11:26 WBC 23.2 H (3.8-10.6) k/uL Plt Count 98 L (150-450) k/uL Neutrophils # (Manual) 20.80 H (1.3-7.7) k/uL Lymphocytes # (Manual) 0.93 L (1.0-4.8) k/uL Monocytes # (Manual) 1.16 H (0-1.0) k/uL PT 14.7 H (9.0-12.0) sec INR 1.4 H (<1.2) APTT 32.9 H (22.0-30.0) sec VBG pCO2 (37-51) mmHg Sodium (137-145) mmol/L Chloride (98-107) mmol/L BUN (9-20) mg/dL Creatinine (0.66-1.25) mg/dL Glucose (74-99) mg/dL POC Glucose (mg/dL) (70-110) mg/dL AST (17-59) U/L Urine Protein (Negative) Urine Glucose (UA) (Negative) Urine Blood (Negative) Urine WBC (0-5) /hpf Urine Bacteria (None) /hpf Hyaline Casts (0-2) /lpf Urine Mucus (None) /hpf Urine Opiates Screen Detected H (NotDetected) 06/21/22 06/21/22 06/21/22 Range/Units 11:26 11:26 11:53 WBC (3.8-10.6) k/uL Plt Count (150-450) k/uL Neutrophils # (Manual) (1.3-7.7) k/uL Lymphocytes # (Manual) (1.0-4.8) k/uL Monocytes # (Manual) (0-1.0) k/uL PT (9.0-12.0) sec INR (<1.2) APTT (22.0-30.0) sec VBG pCO2 52 H (37-51) mmHg Sodium 129 L (137-145) mmol/L Chloride 96 L (98-107) mmol/L BUN 51 H (9-20) mg/dL Creatinine 2.24 H (0.66-1.25) mg/dL Glucose 116 H (74-99) mg/dL POC Glucose (mg/dL) 111 H (70-110) mg/dL AST 71 H (17-59) U/L Urine Protein (Negative) Urine Glucose (UA) (Negative) Urine Blood (Negative) Urine WBC (0-5) /hpf Urine Bacteria (None) /hpf Hyaline Casts (0-2) /lpf Urine Mucus (None) /hpf Urine Opiates Screen (NotDetected) 06/21/22 Range/Units 12:50 WBC (3.8-10.6) k/uL Plt Count (150-450) k/uL Neutrophils # (Manual) (1.3-7.7) k/uL Lymphocytes # (Manual) (1.0-4.8) k/uL Monocytes # (Manual) (0-1.0) k/uL PT (9.0-12.0) sec INR (<1.2) APTT (22.0-30.0) sec VBG pCO2 (37-51) mmHg Sodium (137-145) mmol/L Chloride (98-107) mmol/L BUN (9-20) mg/dL Creatinine (0.66-1.25) mg/dL Glucose (74-99) mg/dL POC Glucose (mg/dL) (70-110) mg/dL AST (17-59) U/L Urine Protein Trace H (Negative) Urine Glucose (UA) Trace H (Negative) Urine Blood Trace H (Negative) Urine WBC 14 H (0-5) /hpf Urine Bacteria Rare H (None) /hpf Hyaline Casts 19 H (0-2) /lpf Urine Mucus Rare H (None) /hpf Urine Opiates Screen (NotDetected) Assessment and Plan Plan: Mental status changes, cause is unclear could be related to overdose of narcotic Leukocytosis, no clear source of infection, chest x-ray and urine analysis don't show any clear evidence of infection, patient received IV steroids in the EMS and in the emergency room, will check lactic acid level and monitor CBC Acute exacerbation of COPD with wheezing on presentation, he was started on IV Solu-Medrol in the emergency room, he is on inhaled bronchodilators Evidence of acute kidney injury was elevated BUN and creatinine patient was started on IV fluid at this time Mild elevation in troponin level will monitor Underlying history of hypertension Underlying history of hypothyroidism Underlying history of depression with anxiety disorder Underlying history of vitamin D deficiency Underlying history of degenerative disc disease with chronic back pain maintained on narcotics for pain management Underlying history of gastroesophageal reflux disease At this time patient is admitted to telemetry floor Will check d-dimer check lactic acid recheck CBC and CMP Continue with IV fluid and recheck renal function Consult nephrology
--- NOTE | 2022-06-22 12:57 | P.PN ---
Subjective Progress Note Date: 06/22/22 Ag Souza, is a 67-year-old male who presented to [facility] emergency room after having a multiple falls at home, has significant mental status changes with somnolence and poor responsiveness, history per his , over the last 24 hours patient has been not feeling well, he fell twice at home, on the second time she was not able to wake him up and get him up from the floor through the bed, she called EMS and he was brought into emergency room. He was evaluated in the emergency room vital examination on presentation revealed a temperature of 97.3 pulse 82 respiration 16 blood pressure 121/67 pulse ox 97% on room air Laboratory data revealed a white blood count of 23.2 hemoglobin 14.4 platelet count 98,000 sodium 129 potassium 4.9 chloride 96 CO2 25 BUN 51 creatinine 2.24 troponin level was 0.02 COVID-19 testing was negative Testing in the emergency room revealed chest x-ray done in the emergency room did not reveal significant abnormality. Patient has a known history of degenerative disc disease with chronic pain maintained on narcotics for pain management he was given Narcan in the emergency room which led to improvement in his mental status. Patient was admitted to medical floor for further evaluation and treatment. On 06/22/2022 patient was seen and examined on the telemetry floor he is still somnolent, agitated, pulling on his IV line, he was started through the night on IV Ativan, vital examination reveals a temperature of 98.4 pulse 132 respiration 24 blood pressure 172/91 pulse ox 96% on 2 L nasal cannula, white blood count is 21.9 hemoglobin 14.8 platelet count 118 d-dimer was elevated at 2.12 at this time will start patient on IV heparin high-intensity for possible pulmonary embolism, his kidney function is still elevated, will defer computed tomography scan this time, he is not cooperative to proceed with VQ scan, will continue with IV fluid, nephrology consultation and infectious disease consultation were requested. Objective - Vital Signs Vital signs: Vital Signs Temp 99.2 F 06/22/22 11:00 Pulse 149 H 06/22/22 11:00 Resp 30 H 06/22/22 11:00 BP 150/84 06/22/22 11:00 Pulse Ox 97 06/22/22 11:00 FiO2 Intake & Output 06/21/22 06/22/22 06/22/22 18:59 06:59 18:59 Output Total 400 2400 Balance -400 -2400 Weight 104 kg Output: Urine 400 2400 Straight 400 - Exam In general patient is somnolent morning, moving all 4 extremities spontaneously HEENT head normocephalic and atraumatic Neck is supple no JVD no goiter no lymphadenopathy no carotid bruit Chest examination is clear to auscultation no crackles no wheezing Cardiac exam reveals regular heart sounds S1 and S2 no gallops no murmurs Abdomen is soft nontender no organomegaly with normal bowel sounds Extremity exam reveals no edema no cyanosis or clubbing Neurological examination reveals no gross focal deficits - Labs CBC & Chem 7: 06/22/22 09:06 06/22/22 02:08 Labs: Abnormal Lab Results - Last 24 Hours (Table) 06/21/22 06/21/22 06/21/22 Range/Units 11:26 11:26 12:50 WBC (3.8-10.6) k/uL Plt Count 98 L (150-450) k/uL Neutrophils # (1.3-7.7) k/uL Neutrophils # (Manual) 20.80 H (1.3-7.7) k/uL Lymphocytes # (Manual) 0.93 L (1.0-4.8) k/uL Monocytes # (0-1.0) k/uL Monocytes # (Manual) 1.16 H (0-1.0) k/uL PT (9.0-12.0) sec INR (<1.2) D-Dimer (<0.60) mg/L FEU ABG pCO2 (35-45) mmHg ABG pO2 (83-108) mmHg ABG HCO3 (21-25) mmol/L ABG O2 Saturation (94-97) % Sodium (137-145) mmol/L BUN (9-20) mg/dL Creatinine (0.66-1.25) mg/dL Glucose (74-99) mg/dL POC Glucose (mg/dL) (70-110) mg/dL Plasma Lactic Acid Adalid (0.7-2.0) mmol/L AST (17-59) U/L CK-MB (CK-2) (0.0-2.4) ng/mL Urine Protein Trace H (Negative) Urine Glucose (UA) Trace H (Negative) Urine Blood Trace H (Negative) Urine WBC 14 H (0-5) /hpf Urine Bacteria Rare H (None) /hpf Hyaline Casts 19 H (0-2) /lpf Urine Mucus Rare H (None) /hpf Urine Opiates Screen Detected H (NotDetected) 06/22/22 06/22/22 06/22/22 Range/Units 02:08 02:08 02:08 WBC 21.9 H (3.8-10.6) k/uL Plt Count 116 L (150-450) k/uL Neutrophils # 19.3 H (1.3-7.7) k/uL Neutrophils # (Manual) (1.3-7.7) k/uL Lymphocytes # (Manual) (1.0-4.8) k/uL Monocytes # (0-1.0) k/uL Monocytes # (Manual) (0-1.0) k/uL PT (9.0-12.0) sec INR (<1.2) D-Dimer (<0.60) mg/L FEU ABG pCO2 (35-45) mmHg ABG pO2 (83-108) mmHg ABG HCO3 (21-25) mmol/L ABG O2 Saturation (94-97) % Sodium 131 L (137-145) mmol/L BUN 52 H (9-20) mg/dL Creatinine 1.28 H (0.66-1.25) mg/dL Glucose 194 H (74-99) mg/dL POC Glucose (mg/dL) (70-110) mg/dL Plasma Lactic Acid Adalid 3.0 H* (0.7-2.0) mmol/L AST 66 H (17-59) U/L CK-MB (CK-2) (0.0-2.4) ng/mL Urine Protein (Negative) Urine Glucose (UA) (Negative) Urine Blood (Negative) Urine WBC (0-5) /hpf Urine Bacteria (None) /hpf Hyaline Casts (0-2) /lpf Urine Mucus (None) /hpf Urine Opiates Screen (NotDetected) 06/22/22 06/22/22 06/22/22 Range/Units 02:15 02:38 06:33 WBC (3.8-10.6) k/uL Plt Count (150-450) k/uL Neutrophils # (1.3-7.7) k/uL Neutrophils # (Manual) (1.3-7.7) k/uL Lymphocytes # (Manual) (1.0-4.8) k/uL Monocytes # (0-1.0) k/uL Monocytes # (Manual) (0-1.0) k/uL PT (9.0-12.0) sec INR (<1.2) D-Dimer (<0.60) mg/L FEU ABG pCO2 (35-45) mmHg ABG pO2 (83-108) mmHg ABG HCO3 (21-25) mmol/L ABG O2 Saturation (94-97) % Sodium (137-145) mmol/L BUN (9-20) mg/dL Creatinine (0.66-1.25) mg/dL Glucose (74-99) mg/dL POC Glucose (mg/dL) 188 H (70-110) mg/dL Plasma Lactic Acid Adalid 3.1 H* (0.7-2.0) mmol/L AST (17-59) U/L CK-MB (CK-2) 6.7 H (0.0-2.4) ng/mL Urine Protein (Negative) Urine Glucose (UA) (Negative) Urine Blood (Negative) Urine WBC (0-5) /hpf Urine Bacteria (None) /hpf Hyaline Casts (0-2) /lpf Urine Mucus (None) /hpf Urine Opiates Screen (NotDetected) 06/22/22 06/22/22 06/22/22 Range/Units 06:44 09:06 09:06 WBC 21.9 H (3.8-10.6) k/uL Plt Count 118 L (150-450) k/uL Neutrophils # 18.8 H (1.3-7.7) k/uL Neutrophils # (Manual) (1.3-7.7) k/uL Lymphocytes # (Manual) (1.0-4.8) k/uL Monocytes # 1.2 H (0-1.0) k/uL Monocytes # (Manual) (0-1.0) k/uL PT 15.0 H (9.0-12.0) sec INR 1.4 H (<1.2) D-Dimer 2.12 H (<0.60) mg/L FEU ABG pCO2 (35-45) mmHg ABG pO2 (83-108) mmHg ABG HCO3 (21-25) mmol/L ABG O2 Saturation (94-97) % Sodium (137-145) mmol/L BUN (9-20) mg/dL Creatinine (0.66-1.25) mg/dL Glucose (74-99) mg/dL POC Glucose (mg/dL) (70-110) mg/dL Plasma Lactic Acid Adalid (0.7-2.0) mmol/L AST (17-59) U/L CK-MB (CK-2) (0.0-2.4) ng/mL Urine Protein (Negative) Urine Glucose (UA) (Negative) Urine Blood (Negative) Urine WBC (0-5) /hpf Urine Bacteria (None) /hpf Hyaline Casts (0-2) /lpf Urine Mucus (None) /hpf Urine Opiates Screen (NotDetected) 06/22/22 06/22/22 06/22/22 Range/Units 10:26 10:42 11:15 WBC (3.8-10.6) k/uL Plt Count (150-450) k/uL Neutrophils # (1.3-7.7) k/uL Neutrophils # (Manual) (1.3-7.7) k/uL Lymphocytes # (Manual) (1.0-4.8) k/uL Monocytes # (0-1.0) k/uL Monocytes # (Manual) (0-1.0) k/uL PT (9.0-12.0) sec INR (<1.2) D-Dimer (<0.60) mg/L FEU ABG pCO2 31 L (35-45) mmHg ABG pO2 117 H (83-108) mmHg ABG HCO3 20 L (21-25) mmol/L ABG O2 Saturation 99.4 H (94-97) % Sodium (137-145) mmol/L BUN (9-20) mg/dL Creatinine (0.66-1.25) mg/dL Glucose (74-99) mg/dL POC Glucose (mg/dL) 204 H 216 H (70-110) mg/dL Plasma Lactic Acid Adalid (0.7-2.0) mmol/L AST (17-59) U/L CK-MB (CK-2) (0.0-2.4) ng/mL Urine Protein (Negative) Urine Glucose (UA) (Negative) Urine Blood (Negative) Urine WBC (0-5) /hpf Urine Bacteria (None) /hpf Hyaline Casts (0-2) /lpf Urine Mucus (None) /hpf Urine Opiates Screen (NotDetected) 06/22/22 Range/Units 12:10 WBC (3.8-10.6) k/uL Plt Count (150-450) k/uL Neutrophils # (1.3-7.7) k/uL Neutrophils # (Manual) (1.3-7.7) k/uL Lymphocytes # (Manual) (1.0-4.8) k/uL Monocytes # (0-1.0) k/uL Monocytes # (Manual) (0-1.0) k/uL PT (9.0-12.0) sec INR (<1.2) D-Dimer (<0.60) mg/L FEU ABG pCO2 (35-45) mmHg ABG pO2 (83-108) mmHg ABG HCO3 (21-25) mmol/L ABG O2 Saturation (94-97) % Sodium (137-145) mmol/L BUN (9-20) mg/dL Creatinine (0.66-1.25) mg/dL Glucose (74-99) mg/dL POC Glucose (mg/dL) (70-110) mg/dL Plasma Lactic Acid Adalid 5.9 H* (0.7-2.0) mmol/L AST (17-59) U/L CK-MB (CK-2) (0.0-2.4) ng/mL Urine Protein (Negative) Urine Glucose (UA) (Negative) Urine Blood (Negative) Urine WBC (0-5) /hpf Urine Bacteria (None) /hpf Hyaline Casts (0-2) /lpf Urine Mucus (None) /hpf Urine Opiates Screen (NotDetected) Microbiology - Last 24 Hours (Table) 06/21/22 12:50 Urine Culture - Preliminary Urine,Voided Assessment and Plan Plan: Mental status changes, cause is unclear could be related to overdose of narcotic Leukocytosis, no clear source of infection, chest x-ray and urine analysis don't show any clear evidence of infection, patient received IV steroids in the EMS and in the emergency room, will check lactic acid level and monitor CBC Acute exacerbation of COPD with wheezing on presentation, he was started on IV Solu-Medrol in the emergency room, he is on inhaled bronchodilators Evidence of acute kidney injury was elevated BUN and creatinine patient was started on IV fluid at this time Mild elevation in troponin level will monitor Underlying history of hypertension Underlying history of hypothyroidism Underlying history of depression with anxiety disorder Underlying history of vitamin D deficiency Underlying history of degenerative disc disease with chronic back pain maintained on narcotics for pain management Underlying history of gastroesophageal reflux disease At this time patient is admitted to telemetry floor Will check d-dimer check lactic acid recheck CBC and CMP Continue with IV fluid and recheck renal function Consult nephrology
[2022-06-22] MEDS ORDERED: SODIUM CHLORIDE 0.9% 1,000 ML IV ONE (13:53)
--- NOTE | 2022-06-22 14:30 | P.CNPUL ---
History of Present Illness Consult date: 06/22/22 Requesting physician: Carlos Pop Reason for consult: dyspnea, hypoxemia, other Chief complaint: Mental status changes, agitation, increased breathing pattern. History of present illness: Pulmonary consultation dated 06/22/2022. 59-year-old male seen in the emergency department, on June 21. He apparently presented with mental status changes. In addition, he apparently was having multiple falls at home. The patient was seen and evaluated, and admitted to the hospital with a diagnosis of mental status changes, opiate dependence, COPD, acute kidney injury, and he went to the general medical floor. Today, a rapid response was called on this patient, and the patient was transferred down to the intensive care unit. Currently he is on 3 L nasal cannula. He is getting saline at 70 mL an hour, and dexmedetomidine at 1 mcg/kg/h. He apparently has a history of asthma, CVA, GERD, hyperlipidemia, hypertension, echo staxis, anxiety, and chronic tobacco dependence. Labs today include a white count of 21.9, hemoglobin 14.8, hematocrit 45.6, and a platelet count of 118,000. D- dimer is 2.12. PT is 15 with an INR 1.4. Blood gases, show pO2 of 117, pCO2 31, pH is 7.42. That was on 50% oxygen. Sodium 131, potassium 4.9, chlorides 100, CO2 22, BUN 52, and creatinine 1.28. Lactic acid was elevated at 5.9. I've asked the nurse to give the patient a liter of lactated Ringer's. Troponin was 0.237. Urine is got trace protein and trace glucose. Leukocyte esterase and nitrate were both negative. Drug screen was positive for opiates. Nasal swab testing was negative for coronavirus. Chest x-ray on admission was negative for an acute process. Head CT initially did not show anything acute. A repeat chest x-ray today showed increased interstitial densities in the left lower lobe. Review of Systems REVIEW OF SYSTEMS: CONSTITUTIONAL: [Negative.] NEUROLOGIC: Mental status changes, frequent falls. HEENT: [ Negative.] CARDIAC: [Negative.] PULMONARY: Increased rate of respirations. GI: [Negative.] : [Negative.] RHEUMATOLOGIC: [ Negative.] IMMUNOLOGIC: [ Negative.] ENDOCRINE: [Negative. ] DERMATOLOGIC: [Negative.] Past Medical History Past Medical History: Asthma, Cancer, CVA/TIA, GERD/Reflux, Hyperlipidemia, Hypertension, Thyroid Disorder Additional Past Medical History / Comment(s): Hx. of Brain Aneurysm, SKIN CANCER, CHRONIC NOSEBLEEDS History of Any Multi-Drug Resistant Organisms: None Reported Past Surgical History: Cholecystectomy, Orthopedic Surgery, Tonsillectomy Additional Past Surgical History / Comment(s): Knee surgery, Endovascular coiling for Brain Aneurysm.LESION REMOVED , SUSPENSION MICROLARYNGOSCOPY Past Anesthesia/Blood Transfusion Reactions: Previous Problems w/ Anesthesia Additional Past Anesthesia/Blood Transfusion Reaction / Comment(s): Woke up during surgery. Past Psychological History: Anxiety Smoking Status: Current every day smoker Past Alcohol Use History: None Reported Past Drug Use History: None Reported - Past Family History Mother Family Medical History: Cancer Additional Family Medical History / Comment(s): uterine cancer Father Family Medical History: Cancer, CVA/TIA Additional Family Medical History / Comment(s): skin cancer Sister(s) Family Medical History: Cancer Additional Family Medical History / Comment(s): skin cancer Medications and Allergies Home Medications Medication Instructions Recorded Confirmed Type Baclofen [Lioresal] 10 mg PO HS 02/26/19 06/21/22 History Ipratropium/Albuterol Sulfate 1 puff INHALATION RT-QID 02/26/19 06/21/22 History [Combivent Respimat Inhaler] Metoprolol Succinate [Toprol XL] 50 mg PO QAM 02/26/19 06/21/22 History Omeprazole [PriLOSEC] 20 mg PO AC-BRKFST 02/26/19 06/21/22 History HYDROcodone/APAP 10-325MG [[place] 1 tab PO Q6HR PRN 09/07/21 06/21/22 History 10-325] Levothyroxine Sodium [Synthroid] 88 mcg PO QAM 09/07/21 06/21/22 History Morphine Sulfate ER [Ms Contin] 15 mg PO HS 09/07/21 06/21/22 History Zolpidem Tartrate [Ambien Cr] 12.5 mg PO HS PRN 09/07/21 06/21/22 History lisinopriL [Prinivil] 20 mg PO QAM 09/07/21 06/21/22 History Albuterol Sulfate [Proventil Hfa] 1 - 2 puff INHALATION Q6HR PRN 06/21/22 06/21/22 History Aspirin EC [Ecotrin Low Dose] 81 mg PO DAILY 06/21/22 06/21/22 History Ergocalciferol [Vitamin D2 (1250 1,250 mcg PO Q7D 06/21/22 06/21/22 History Mcg = 98330 Iu)] Fluticasone Nasal [place] [Flonase 1 spray EA NOSTRIL DAILY 06/21/22 06/21/22 History Nasal [place]] Furosemide [Lasix] 20 mg PO DAILY 06/21/22 06/21/22 History Mirtazapine [Remeron] 15 mg PO HS 06/21/22 06/21/22 History hydrOXYzine HCL [Atarax] 10 mg PO HS 06/21/22 06/21/22 History traZODone HCL [Desyrel] 100 mg PO HS 06/21/22 06/21/22 History Allergies Allergy/AdvReac Type Severity Reaction Status Date / Time No Known Allergies Allergy Verified 06/21/22 11:22 Physical Exam Osteopathic Statement: *. No significant issues noted on an osteopathic structural exam other than those noted in the History and Physical/Consult. Vitals: Vital Signs Temp Pulse Pulse Resp BP BP BP 06/22/22 11:00 99.2 F 149 H 30 H 150/84 06/22/22 10:45 150 H 40 H 06/22/22 10:32 147 H 40 H 06/22/22 08:00 98.4 F 132 H 24 172/91 06/22/22 04:00 99.7 F H 116 H 22 163/72 06/22/22 03:17 136 H 06/22/22 03:06 136 H 06/22/22 02:00 130 H 20 06/22/22 01:38 99.3 F 130 H 20 172/76 06/22/22 00:00 99.1 F 110 H 20 154/74 06/21/22 20:57 100 06/21/22 20:47 100 06/21/22 20:34 98.1 F 90 18 128/67 06/21/22 20:00 90 18 06/21/22 17:54 98.6 F 91 19 113/55 06/21/22 16:32 94 17 131/79 06/21/22 14:29 98 16 113/53 Pulse Ox 06/22/22 11:00 97 06/22/22 10:45 06/22/22 10:32 06/22/22 08:00 96 06/22/22 04:00 95 06/22/22 03:17 06/22/22 03:06 06/22/22 02:00 06/22/22 01:38 97 06/22/22 00:00 98 06/21/22 20:57 06/21/22 20:47 98 06/21/22 20:34 99 06/21/22 20:00 06/21/22 17:54 97 06/21/22 16:32 93 L 06/21/22 14:29 95 Intake and Output 06/21/22 06/22/22 06/22/22 22:59 06:59 14:59 Intake Total 48.533 Output Total 150 2250 Balance -150 -2250 48.533 Intake: Intake, IV Titration 48.533 Amount Dexmedetomidine/0.9% NaCl 48.533 (Pmx) 400 mcg In Empty Bag 1 bag @ 0.2 MCG/KG/HR 5.2 mls/hr IV .[id number] [facility] Rx#:[id number] Output: Urine 150 2250 Other: Weight 104 kg No acute distress, sedated on dexmedetomidine, with a rapid respiratory rate. HEENT examination is grossly unremarkable. Neck supple. Full range of motion. No adenopathy thyromegaly or neck vein distention. Cardiovascular examination reveals regular rhythm rate. S1-S2 normal. No S3 or S4. No discernible murmur noted. Heart rate 150 bpm. Lungs reveal mostly clear breath sounds. Breath sounds are equal bilaterally. Scattered rhonchi are noted. No wheezes or crackles. Saturations are mid to high 90s. Abdomen soft bowel sounds are heard. No masses or tenderness. Extremities reveal some mild edema. No cyanosis or clubbing. Skin reveals some chronic venous stasis changes. Neurologic examination is difficult to assess given the fact that he is on dexmedetomidine. Results - Laboratory Findings CBC and BMP: 06/22/22 09:06 06/22/22 02:08 ABG ABG pH 7.42 (7.35-7.45) 06/22/22 10:42 ABG pCO2 31 mmHg (35-45) L 06/22/22 10:42 ABG pO2 117 mmHg (83-108) H 06/22/22 10:42 ABG O2 Saturation 99.4 % (94-97) H 06/22/22 10:42 PT/INR, D-dimer PT 15.0 sec (9.0-12.0) H 06/22/22 09:06 INR 1.4 (<1.2) H 06/22/22 09:06 D-Dimer 2.12 mg/L FEU (<0.60) H 06/22/22 06:44 Abnormal lab findings: Abnormal Labs 06/21/22 06/21/22 06/21/22 11:26 11:26 11:26 WBC 23.2 H Plt Count 98 L Neutrophils # Neutrophils # (Manual) 20.80 H Lymphocytes # (Manual) 0.93 L Monocytes # Monocytes # (Manual) 1.16 H PT 14.7 H INR 1.4 H APTT 32.9 H D-Dimer ABG pCO2 ABG pO2 ABG HCO3 ABG O2 Saturation VBG pCO2 Sodium Chloride BUN Creatinine Glucose POC Glucose (mg/dL) Plasma Lactic Acid Adalid AST CK-MB (CK-2) Troponin I Urine Protein Urine Glucose (UA) Urine Blood Urine WBC Urine Bacteria Hyaline Casts Urine Mucus Urine Opiates Screen Detected H 06/21/22 06/21/22 06/21/22 11:26 11:26 11:53 WBC Plt Count Neutrophils # Neutrophils # (Manual) Lymphocytes # (Manual) Monocytes # Monocytes # (Manual) PT INR APTT D-Dimer ABG pCO2 ABG pO2 ABG HCO3 ABG O2 Saturation VBG pCO2 52 H Sodium 129 L Chloride 96 L BUN 51 H Creatinine 2.24 H Glucose 116 H POC Glucose (mg/dL) 111 H Plasma Lactic Acid Adalid AST 71 H CK-MB (CK-2) Troponin I Urine Protein Urine Glucose (UA) Urine Blood Urine WBC Urine Bacteria Hyaline Casts Urine Mucus Urine Opiates Screen 06/21/22 06/22/22 06/22/22 12:50 02:08 02:08 WBC 21.9 H Plt Count 116 L Neutrophils # 19.3 H Neutrophils # (Manual) Lymphocytes # (Manual) Monocytes # Monocytes # (Manual) PT INR APTT D-Dimer ABG pCO2 ABG pO2 ABG HCO3 ABG O2 Saturation VBG pCO2 Sodium Chloride BUN Creatinine Glucose POC Glucose (mg/dL) Plasma Lactic Acid Adalid 3.0 H* AST CK-MB (CK-2) Troponin I Urine Protein Trace H Urine Glucose (UA) Trace H Urine Blood Trace H Urine WBC 14 H Urine Bacteria Rare H Hyaline Casts 19 H Urine Mucus Rare H Urine Opiates Screen 06/22/22 06/22/22 06/22/22 02:08 02:15 02:38 WBC Plt Count Neutrophils # Neutrophils # (Manual) Lymphocytes # (Manual) Monocytes # Monocytes # (Manual) PT INR APTT D-Dimer ABG pCO2 ABG pO2 ABG HCO3 ABG O2 Saturation VBG pCO2 Sodium 131 L Chloride BUN 52 H Creatinine 1.28 H Glucose 194 H POC Glucose (mg/dL) 188 H Plasma Lactic Acid Adalid AST 66 H CK-MB (CK-2) 6.7 H Troponin I Urine Protein Urine Glucose (UA) Urine Blood Urine WBC Urine Bacteria Hyaline Casts Urine Mucus Urine Opiates Screen 06/22/22 06/22/22 06/22/22 06:33 06:44 09:06 WBC Plt Count Neutrophils # Neutrophils # (Manual) Lymphocytes # (Manual) Monocytes # Monocytes # (Manual) PT 15.0 H INR 1.4 H APTT D-Dimer 2.12 H ABG pCO2 ABG pO2 ABG HCO3 ABG O2 Saturation VBG pCO2 Sodium Chloride BUN Creatinine Glucose POC Glucose (mg/dL) Plasma Lactic Acid Adalid 3.1 H* AST CK-MB (CK-2) Troponin I Urine Protein Urine Glucose (UA) Urine Blood Urine WBC Urine Bacteria Hyaline Casts Urine Mucus Urine Opiates Screen 06/22/22 06/22/22 06/22/22 09:06 10:26 10:42 WBC 21.9 H Plt Count 118 L Neutrophils # 18.8 H Neutrophils # (Manual) Lymphocytes # (Manual) Monocytes # 1.2 H Monocytes # (Manual) PT INR APTT D-Dimer ABG pCO2 31 L ABG pO2 117 H ABG HCO3 20 L ABG O2 Saturation 99.4 H VBG pCO2 Sodium Chloride BUN Creatinine Glucose POC Glucose (mg/dL) 204 H Plasma Lactic Acid Adalid AST CK-MB (CK-2) Troponin I Urine Protein Urine Glucose (UA) Urine Blood Urine WBC Urine Bacteria Hyaline Casts Urine Mucus Urine Opiates Screen 06/22/22 06/22/22 06/22/22 11:15 12:10 12:10 WBC Plt Count Neutrophils # Neutrophils # (Manual) Lymphocytes # (Manual) Monocytes # Monocytes # (Manual) PT INR APTT D-Dimer ABG pCO2 ABG pO2 ABG HCO3 ABG O2 Saturation VBG pCO2 Sodium Chloride BUN Creatinine Glucose POC Glucose (mg/dL) 216 H Plasma Lactic Acid Adalid 5.9 H* AST CK-MB (CK-2) Troponin I 0.237 H* Urine Protein Urine Glucose (UA) Urine Blood Urine WBC Urine Bacteria Hyaline Casts Urine Mucus Urine Opiates Screen - Diagnostic Findings Chest x-ray: image reviewed Assessment and Plan Assessment: Acute mental status changes, rapid respiratory rate, tachycardia, and elevated lactic acid, rule out either sepsis, or a primary neurologic event. History of CVA. History of hypertension. History of hyperlipidemia. History of asthma. History of gastroesophageal reflux disease. History of anxiety. History of chronic back. History of epistaxis. Plan: Plan dated 06/22/2022 The patient was transferred down to the intensive care. The patient is going for a computed tomography scan of the chest, to rule out pulmonary embolism. I've asked the nurses to switch his fluids to lactated Ringer's, and give him a bolus. In addition, I've asked the nurse to consult neurology for his mental status changes. Labs, x-rays, and medications are all reviewed. Prognosis is guarded. The patient is not very active at home. Time with Patient: Greater than 30
[2022-06-22] MEDS ORDERED: VANCOMYCIN IV PER PHARMACY 1 EACH MISC MISCELLANE PRN (15:19)
--- NOTE | 2022-06-22 15:24 | P.CNNES ---
History of Present Illness Consult date: 06/22/22 Requesting physician: Cornell Sanderson Reason for Consult: altered mental status History of Present Illness: This is a 67-year-old gentleman with history of brain aneurysm post coiling, CVA/TIA, hypertension, hypothryoidism, hypertension who presented to the emergency department because of altered mental status and apparently multiple falls at home. Neurology is consulted for altered mental status. History was obtained from medical record. Per the ED note the family notified the the ED physician that the patient's has been taking morphine, [place] for chronic pain and it was a possibility that he may overuse these medication and it seems that the patient did response to Narcan in the emergency department and he was more alert. Therefore he was admitted because of opiate dependence altered mental status change and acute kidney injury and was admitted to the general floor's in today the rapid response was called due to hyperactive delirium and tachycardia and the patient was a significant agitated fighting against the 2 recent restraints as well as care staff. As a result of his hyperactive delirium and sinus tachycardia patient was transferred to ICU. The patient was started on heparin drip for concern of pulmonary embolism. Seems that the patient received the 20 half milligram of Ativan in the ED and a 2 mg Ativan today because he was agitated by A-team. Some of the workup during this hospital visit consisted of On initial presentation the temperature was 97.3 and he was afebrile until today around 4:00 in the morning which was 99.7 which is minimally low grade fever but otherwise has been afebrile Today the patient has been tachypneic as high as in the 40s on presentation was 16 Heart rate on presentation was 82 and that today it was the 150s White blood cell at presentation was 23.2 and it's predominantly neutrophilic was currently 21.9 Pleasant lactic acid vein is 3.0, sodium is 129, creatinine is 2.24 and it's trending down to 1.28 Initial serum glucose is 116, AST of 71 ALT 40, ammonia 16 Urinalysis is a the nitrate is negative, leukocyte esterase negative, urine white blood cells 14 a bacteria is rare and it doesn't seem like urinary tract infection for my opinion Urine drug screen is positive for opiates otherwise versus nondetected and the serum alcohol was less than 10 Coronavirus PCR not detected. CT of the head is reported as no acute intracranial process. I personally reviewed the CT of the head and I agree with the report CT cervical spine was reported as no evidence of cervical spine fracture. Mild Multiple level degenerative disc disease with mild spinal canal and neuroforaminal stenosis at C5-C6. COPD changes. Atherosclerosis of the carotid bifurcation Review of Systems Review of system is limited but the prone positive and negative as per HPI. Past Medical History Past Medical History: Asthma, Cancer, CVA/TIA, GERD/Reflux, Hyperlipidemia, Hypertension, Thyroid Disorder Additional Past Medical History / Comment(s): Hx. of Brain Aneurysm, SKIN CANCER, CHRONIC NOSEBLEEDS History of Any Multi-Drug Resistant Organisms: None Reported Past Surgical History: Cholecystectomy, Orthopedic Surgery, Tonsillectomy Additional Past Surgical History / Comment(s): Knee surgery, Endovascular coiling for Brain Aneurysm.LESION REMOVED , SUSPENSION MICROLARYNGOSCOPY Past Anesthesia/Blood Transfusion Reactions: Previous Problems w/ Anesthesia Additional Past Anesthesia/Blood Transfusion Reaction / Comment(s): Woke up during surgery. Past Psychological History: Anxiety Smoking Status: Current every day smoker Past Alcohol Use History: None Reported Past Drug Use History: None Reported - Past Family History Mother Family Medical History: Cancer Additional Family Medical History / Comment(s): uterine cancer Father Family Medical History: Cancer, CVA/TIA Additional Family Medical History / Comment(s): skin cancer Sister(s) Family Medical History: Cancer Additional Family Medical History / Comment(s): skin cancer Medications and Allergies Home Medications Medication Instructions Recorded Confirmed Type Baclofen [Lioresal] 10 mg PO HS 02/26/19 06/21/22 History Ipratropium/Albuterol Sulfate 1 puff INHALATION RT-QID 02/26/19 06/21/22 History [Combivent Respimat Inhaler] Metoprolol Succinate [Toprol XL] 50 mg PO QAM 02/26/19 06/21/22 History Omeprazole [PriLOSEC] 20 mg PO AC-BRKFST 02/26/19 06/21/22 History HYDROcodone/APAP 10-325MG [[place] 1 tab PO Q6HR PRN 09/07/21 06/21/22 History 10-325] Levothyroxine Sodium [Synthroid] 88 mcg PO QAM 09/07/21 06/21/22 History Morphine Sulfate ER [Ms Contin] 15 mg PO HS 09/07/21 06/21/22 History Zolpidem Tartrate [Ambien Cr] 12.5 mg PO HS PRN 09/07/21 06/21/22 History lisinopriL [Prinivil] 20 mg PO QAM 09/07/21 06/21/22 History Albuterol Sulfate [Proventil Hfa] 1 - 2 puff INHALATION Q6HR PRN 06/21/22 06/21/22 History Aspirin EC [Ecotrin Low Dose] 81 mg PO DAILY 06/21/22 06/21/22 History Ergocalciferol [Vitamin D2 (1250 1,250 mcg PO Q7D 06/21/22 06/21/22 History Mcg = 12871 Iu)] Fluticasone Nasal [place] [Flonase 1 spray EA NOSTRIL DAILY 06/21/22 06/21/22 History Nasal [place]] Furosemide [Lasix] 20 mg PO DAILY 06/21/22 06/21/22 History Mirtazapine [Remeron] 15 mg PO HS 06/21/22 06/21/22 History hydrOXYzine HCL [Atarax] 10 mg PO HS 06/21/22 06/21/22 History traZODone HCL [Desyrel] 100 mg PO HS 06/21/22 06/21/22 History Allergies Allergy/AdvReac Type Severity Reaction Status Date / Time No Known Allergies Allergy Verified 06/21/22 11:22 Physical Examination - Vital Signs Vital Signs: Vital Signs Temp Pulse Pulse Resp BP BP BP 06/22/22 11:00 99.2 F 149 H 30 H 150/84 06/22/22 10:45 150 H 40 H 06/22/22 10:32 147 H 40 H 06/22/22 08:00 98.4 F 132 H 24 172/91 06/22/22 04:00 99.7 F H 116 H 22 163/72 06/22/22 03:17 136 H 06/22/22 03:06 136 H 06/22/22 02:00 130 H 20 06/22/22 01:38 99.3 F 130 H 20 172/76 06/22/22 00:00 99.1 F 110 H 20 154/74 06/21/22 20:57 100 06/21/22 20:47 100 06/21/22 20:34 98.1 F 90 18 128/67 06/21/22 20:00 90 18 06/21/22 17:54 98.6 F 91 19 113/55 06/21/22 16:32 94 17 131/79 Pulse Ox 06/22/22 11:00 97 06/22/22 10:45 06/22/22 10:32 06/22/22 08:00 96 06/22/22 04:00 95 06/22/22 03:17 06/22/22 03:06 06/22/22 02:00 06/22/22 01:38 97 06/22/22 00:00 98 06/21/22 20:57 06/21/22 20:47 98 06/21/22 20:34 99 06/21/22 20:00 06/21/22 17:54 97 06/21/22 16:32 93 L Intake and Output 06/21/22 06/22/22 06/22/22 22:59 06:59 14:59 Intake Total 48.533 Output Total 150 2250 Balance -150 -2250 48.533 Intake: Intake, IV Titration 48.533 Amount Dexmedetomidine/0.9% NaCl 48.533 (Pmx) 400 mcg In Empty Bag 1 bag @ 0.2 MCG/KG/HR 5.2 mls/hr IV .[id number] [facility] Rx#:[id number] Output: Urine 150 2250 Other: Weight 104 kg GENERAL: The patient is lying in bed and does not appear in acute distress. HENT: Supple neck. CHEST: The heart rate is regular rate rhythm. No murmurs to auscultation. LUNG: Clear to auscultation bilaterally no wheezing noted throughout. Not labored breathing. ABDOMEN/GI: Bowel sounds present in all 4 quadrants. No tenderness to palpation throughout. NEUROLOGICAL: Limited because of his condition/Received Ativan today and yesterday (appears 4.5mg in total). Also currently on IV Precedex 1mg/kg/hr. Higher mental function: The patient is somnolent. Is not following commands or verbalizing. Cranial nerves: I had to manually open his eyes. Primary gaze is midline. P upils are 2mm and reactive to light. No facial weakness. Motor: The strength is hard to assess but would have episode where he would bend his knee and lift his arms spontaneously. No jerking of any extremities. Cerebellum: Unable to assess. Sensation: Unable to assess light touch. Reflexes (right/left): 1+ throughout. Plantars are mute bilaterally. Results - Laboratory Findings CBC and BMP: 06/22/22 09:06 06/22/22 02:08 Abnormal Lab Findings: Abnormal Labs 06/21/22 06/21/22 06/21/22 11:26 11:26 11:26 WBC 23.2 H Plt Count 98 L Neutrophils # Neutrophils # (Manual) 20.80 H Lymphocytes # (Manual) 0.93 L Monocytes # Monocytes # (Manual) 1.16 H PT 14.7 H INR 1.4 H APTT 32.9 H D-Dimer ABG pCO2 ABG pO2 ABG HCO3 ABG O2 Saturation VBG pCO2 Sodium Chloride BUN Creatinine Glucose POC Glucose (mg/dL) Plasma Lactic Acid Adalid AST CK-MB (CK-2) Troponin I Urine Protein Urine Glucose (UA) Urine Blood Urine WBC Urine Bacteria Hyaline Casts Urine Mucus Urine Opiates Screen Detected H 06/21/22 06/21/22 06/21/22 11:26 11:26 11:53 WBC Plt Count Neutrophils # Neutrophils # (Manual) Lymphocytes # (Manual) Monocytes # Monocytes # (Manual) PT INR APTT D-Dimer ABG pCO2 ABG pO2 ABG HCO3 ABG O2 Saturation VBG pCO2 52 H Sodium 129 L Chloride 96 L BUN 51 H Creatinine 2.24 H Glucose 116 H POC Glucose (mg/dL) 111 H Plasma Lactic Acid Adalid AST 71 H CK-MB (CK-2) Troponin I Urine Protein Urine Glucose (UA) Urine Blood Urine WBC Urine Bacteria Hyaline Casts Urine Mucus Urine Opiates Screen 06/21/22 06/22/22 06/22/22 12:50 02:08 02:08 WBC 21.9 H Plt Count 116 L Neutrophils # 19.3 H Neutrophils # (Manual) Lymphocytes # (Manual) Monocytes # Monocytes # (Manual) PT INR APTT D-Dimer ABG pCO2 ABG pO2 ABG HCO3 ABG O2 Saturation VBG pCO2 Sodium Chloride BUN Creatinine Glucose POC Glucose (mg/dL) Plasma Lactic Acid Adalid 3.0 H* AST CK-MB (CK-2) Troponin I Urine Protein Trace H Urine Glucose (UA) Trace H Urine Blood Trace H Urine WBC 14 H Urine Bacteria Rare H Hyaline Casts 19 H Urine Mucus Rare H Urine Opiates Screen 06/22/22 06/22/22 06/22/22 02:08 02:15 02:38 WBC Plt Count Neutrophils # Neutrophils # (Manual) Lymphocytes # (Manual) Monocytes # Monocytes # (Manual) PT INR APTT D-Dimer ABG pCO2 ABG pO2 ABG HCO3 ABG O2 Saturation VBG pCO2 Sodium 131 L Chloride BUN 52 H Creatinine 1.28 H Glucose 194 H POC Glucose (mg/dL) 188 H Plasma Lactic Acid Adalid AST 66 H CK-MB (CK-2) 6.7 H Troponin I Urine Protein Urine Glucose (UA) Urine Blood Urine WBC Urine Bacteria Hyaline Casts Urine Mucus Urine Opiates Screen 06/22/22 06/22/22 06/22/22 06:33 06:44 09:06 WBC Plt Count Neutrophils # Neutrophils # (Manual) Lymphocytes # (Manual) Monocytes # Monocytes # (Manual) PT 15.0 H INR 1.4 H APTT D-Dimer 2.12 H ABG pCO2 ABG pO2 ABG HCO3 ABG O2 Saturation VBG pCO2 Sodium Chloride BUN Creatinine Glucose POC Glucose (mg/dL) Plasma Lactic Acid Adalid 3.1 H* AST CK-MB (CK-2) Troponin I Urine Protein Urine Glucose (UA) Urine Blood Urine WBC Urine Bacteria Hyaline Casts Urine Mucus Urine Opiates Screen 06/22/22 06/22/22 06/22/22 09:06 10:26 10:42 WBC 21.9 H Plt Count 118 L Neutrophils # 18.8 H Neutrophils # (Manual) Lymphocytes # (Manual) Monocytes # 1.2 H Monocytes # (Manual) PT INR APTT D-Dimer ABG pCO2 31 L ABG pO2 117 H ABG HCO3 20 L ABG O2 Saturation 99.4 H VBG pCO2 Sodium Chloride BUN Creatinine Glucose POC Glucose (mg/dL) 204 H Plasma Lactic Acid Adalid AST CK-MB (CK-2) Troponin I Urine Protein Urine Glucose (UA) Urine Blood Urine WBC Urine Bacteria Hyaline Casts Urine Mucus Urine Opiates Screen 06/22/22 06/22/22 06/22/22 11:15 12:10 12:10 WBC Plt Count Neutrophils # Neutrophils # (Manual) Lymphocytes # (Manual) Monocytes # Monocytes # (Manual) PT INR APTT D-Dimer ABG pCO2 ABG pO2 ABG HCO3 ABG O2 Saturation VBG pCO2 Sodium Chloride BUN Creatinine Glucose POC Glucose (mg/dL) 216 H Plasma Lactic Acid Adalid 5.9 H* AST CK-MB (CK-2) Troponin I 0.237 H* Urine Protein Urine Glucose (UA) Urine Blood Urine WBC Urine Bacteria Hyaline Casts Urine Mucus Urine Opiates Screen Assessment and Plan Assessment: Leukocytosis and had one time very low grade fever (99.7F) on second day of presentation. Unknown cause. Encephalopathy of unknown etiology. Also component of encephalopathy due to opiate use and patient received IV Ativan during this hospital visit and currently on IV Precedex. Acute kidney injury--trending down History of brain aneurysm s/p coil History of CVA Hypothyroidism History of hypertension and during this hospital visit is mildly to moderately hypertensive History of chronic low back pain History of epistaxis Plan: I recommend lumbar puncture to rule out encephalitis. Differential is encephalitis but seems low, first he had very minimal one time low-grade fever second with encephalitis it's usually lymphocytic predominant but this is more neutrophilic. It doesn't appear bacterial meningitis since he had one low-grade fever but that is not absolute. Patient is on Ceftriaxone 1gm every 24 hours and was given loading once by A-team. As well was started on Vancomycin by I.D. team. Cannot pursue with lumbar puncture since he's on IV heparin drip CT angiography of the chest is ordered to rule out pulmonary embolism. I ordered a routine EEG. Please avoid any sedation or narcotic that would affect patient's mentation. Infection disease team is on board Blood culture is pending. Nephrology on board Will defer the rest of medical management to primary and ICU team. Thank you for the consultation. [place] Sanderson M.D. Neuro-Hospitalist Time with Patient: Greater than 30
[2022-06-22] MEDS: LACTATED RINGERS 1,000 ML IV SCH (15:32)
[2022-06-22] MEDS: VANCOMYCIN 1,750 MG in SODIUM CHLORIDE 0.9% 500 ML 500 ML IVPB SCH (16:03)
--- NOTE | 2022-06-22 16:59 | CT ---
EXAMINATION TYPE: CT chest angio for PE DATE OF EXAM: 06/22/2022 COMPARISON: 09/09/2021 HISTORY: Short of breath CT DLP: mGycm Automated exposure control for dose reduction was used. CONTRAST: The contrast was Isovue 80 mL. There are Three-D postprocessed images. There is coarse interstitial density in the periphery of both lungs. There are some mild atelectasis right posterior lung base. No pleural effusion. Heart size is normal. No pericardial effusion. There are no hilar masses. There is no mediastinal adenopathy. Thoracic aorta is intact. No aneurysm or dissection. No evidence of filling defect in the pulmonary arteries. The thoracic spine is intact. No compression fracture. Sternum is intact. IMPRESSION: No evidence of pulmonary embolism. There are interstitial infiltrates and atelectasis which appear ne w compared to the old exam. This is likely inflammatory. No suspicious pulmonary mass.
[2022-06-22 17:05] LABS: Glucose,Whole Blood 232 mg/dL (70-110)
[2022-06-22] MEDS: AMPICILLIN-SULBACTAM 3 GM in SODIUM CHLORIDE 0.9% 100 ML IVPB SCH (17:43)
--- NOTE | 2022-06-22 19:01 | US ---
EXAMINATION TYPE: US kidneys/renal and bladder DATE OF EXAM: 06/22/2022 COMPARISON: NONE CLINICAL HISTORY: YUDI. YUDI EXAM MEASUREMENTS: Right Kidney: 11.8 x 5.0 x 4.8 cm Left Kidney: 12.2 x 5.5 x 4.3 cm technical limitations, ICU patient, rotated slightly to the right Right Kidney: limited evaluation due to patient position, no evidence of hydronephrosis Left Kidney: slightly lobulated upper pole. no evidence of hydronephrosis Bladder: Russo Catheter *incidental finding: splenomegaly. spleen = 17.9cm There is no evidence for hydronephrosis at this point in time. No nephrolithiasis is seen. No isatu s are identified. The urinary bladder is anechoic. Bilateral ureteral jets are seen. IMPRESSION: No evidence of renal stone or obstruction. There is moderate splenomegaly.
[2022-06-22] MEDS ORDERED: ACETAMINOPHEN IV (For NPO) 1,000 MG in EMPTY BAG 1 BAG IVPB PRN (20:24)
[2022-06-22 21:14] LABS: Glucose,Whole Blood 193 mg/dL (70-110)
--- NOTE | 2022-06-22 22:06 | P.CONS ---
History of Present Illness - Reason for Consult Consult date: 06/22/22 Leukocytosis Requesting physician: Carlos Pop - Chief Complaint Weakness and mental status changes x 1 day - History of Present Illness Patient is a 67-year male presented to the hospital yesterday afternoon for evaluation of mental status changes and multiple falls apparently mental status was altered for about 12 hours before presentation to the hospital the patient was not that responsive on arrival to the ER he was hypoxic though on presentation to the hospital patient was afebrile however he did have a low- grade fever of 99.7 earlier this morning patient also have a white count of 23.2 with a left shift did have elevated lactic acid BUN/creatinine is mildly elevated liver exam has been normal urine was relatively negative urine drug screen was positive for opiates brandt PCR was negative patient did have a chest x-ray no acute pulmonary process CT of the head spine did not show any weight patient did have a repeat chest x-ray which did shows increasing density left lower lobe patient noticed to have significant worsening of his mentation and has been transferred to the ICU infectious disease was consulted for further management as the patient blood cultures came back positive with gram-positive cocci most information has been obtained from review the chart talking to nursing staff as the patient was unable provide any history patient is current not on any pressor support Review of Systems Positive points has been mentioned in HPI complete review could not be obtained because of his underlying mental status Past Medical History Past Medical History: Asthma, Cancer, CVA/TIA, GERD/Reflux, Hyperlipidemia, Hypertension, Thyroid Disorder Additional Past Medical History / Comment(s): Hx. of Brain Aneurysm, SKIN CANCER, CHRONIC NOSEBLEEDS History of Any Multi-Drug Resistant Organisms: None Reported Past Surgical History: Cholecystectomy, Orthopedic Surgery, Tonsillectomy Additional Past Surgical History / Comment(s): Knee surgery, Endovascular coiling for Brain Aneurysm.LESION REMOVED , SUSPENSION MICROLARYNGOSCOPY Past Anesthesia/Blood Transfusion Reactions: Previous Problems w/ Anesthesia Additional Past Anesthesia/Blood Transfusion Reaction / Comm: Woke up during surgery. Past Psychological History: Anxiety Smoking Status: Current every day smoker Past Alcohol Use History: None Reported Past Drug Use History: None Reported - Past Family History Mother Family Medical History: Cancer Additional Family Medical History / Comment(s): uterine cancer Father Family Medical History: Cancer, CVA/TIA Additional Family Medical History / Comment(s): skin cancer Sister(s) Family Medical History: Cancer Additional Family Medical History / Comment(s): skin cancer Medications and Allergies Home Medications Medication Instructions Recorded Confirmed Type Baclofen [Lioresal] 10 mg PO HS 02/26/19 06/21/22 History Ipratropium/Albuterol Sulfate 1 puff INHALATION RT-QID 02/26/19 06/21/22 History [Combivent Respimat Inhaler] Metoprolol Succinate [Toprol XL] 50 mg PO QAM 02/26/19 06/21/22 History Omeprazole [PriLOSEC] 20 mg PO AC-BRKFST 02/26/19 06/21/22 History HYDROcodone/APAP 10-325MG [[place] 1 tab PO Q6HR PRN 09/07/21 06/21/22 History 10-325] Levothyroxine Sodium [Synthroid] 88 mcg PO QAM 09/07/21 06/21/22 History Morphine Sulfate ER [Ms Contin] 15 mg PO HS 09/07/21 06/21/22 History Zolpidem Tartrate [Ambien Cr] 12.5 mg PO HS PRN 09/07/21 06/21/22 History lisinopriL [Prinivil] 20 mg PO QAM 09/07/21 06/21/22 History Albuterol Sulfate [Proventil Hfa] 1 - 2 puff INHALATION Q6HR PRN 06/21/22 06/21/22 History Aspirin EC [Ecotrin Low Dose] 81 mg PO DAILY 06/21/22 06/21/22 History Ergocalciferol [Vitamin D2 (1250 1,250 mcg PO Q7D 06/21/22 06/21/22 History Mcg = 40626 Iu)] Fluticasone Nasal Borup [Flonase 1 spray EA NOSTRIL DAILY 06/21/22 06/21/22 History Nasal Borup] Furosemide [Lasix] 20 mg PO DAILY 06/21/22 06/21/22 History Mirtazapine [Remeron] 15 mg PO HS 06/21/22 06/21/22 History hydrOXYzine HCL [Atarax] 10 mg PO HS 06/21/22 06/21/22 History traZODone HCL [Desyrel] 100 mg PO HS 08/02/22 08/02/22 History Allergies Allergy/AdvReac Type Severity Reaction Status Date / Time No Known Allergies Allergy Verified 06/21/22 11:22 Physical Exam Vitals: Vital Signs Temp Pulse Pulse Resp BP BP BP 06/22/22 15:17 80 17 06/22/22 11:00 99.2 F 149 H 30 H 150/84 06/22/22 10:45 150 H 40 H 06/22/22 10:32 147 H 40 H 06/22/22 08:00 98.4 F 132 H 24 172/91 06/22/22 04:00 99.7 F H 116 H 22 163/72 06/22/22 03:17 136 H 06/22/22 03:06 136 H 06/22/22 02:00 130 H 20 06/22/22 01:38 99.3 F 130 H 20 172/76 06/22/22 00:00 99.1 F 110 H 20 154/74 06/21/22 20:57 100 06/21/22 20:47 100 06/21/22 20:34 98.1 F 90 18 128/67 06/21/22 20:00 90 18 06/21/22 17:54 98.6 F 91 19 113/55 06/21/22 16:32 94 17 131/79 Pulse Ox 06/22/22 15:17 06/22/22 11:00 97 06/22/22 10:45 06/22/22 10:32 06/22/22 08:00 96 06/22/22 04:00 95 06/22/22 03:17 06/22/22 03:06 06/22/22 02:00 06/22/22 01:38 97 06/22/22 00:00 98 06/21/22 20:57 06/21/22 20:47 98 06/21/22 20:34 99 06/21/22 20:00 06/21/22 17:54 97 06/21/22 16:32 93 L Intake and Output 06/22/22 06/22/22 06/22/22 06:59 14:59 22:59 Intake Total 48.533 Output Total 2250 Balance -2250 48.533 Intake: Intake, IV Titration 48.533 Amount Dexmedetomidine/0.9% NaCl 48.533 (Pmx) 400 mcg In Empty Bag 1 bag @ 0.2 MCG/KG/HR 5.2 mls/hr IV .[id number] [facility], [facility] Rx#:[id number] Output: Urine 2250 GENERAL DESCRIPTION: Elderly male lying in bed, no distress. No tachypnea or accessory muscle of respiration use. HEENT: Shows Pallor , no scleral icterus. Oral mucous membrane is dry. No pharyngeal erythema or thrush NECK: Trachea central, no thyromegaly. LUNGS: Unlabored breathing. Decreased breath sounds the base. No wheeze or crackle. HEART: S1, S2, regular rate and rhythm. No loud murmur ABDOMEN: Soft, no tenderness , guarding or rigidity, no organomegaly EXTREMITIES: No edema of feet. SKIN: No rash, no masses palpable. NEUROLOGICAL: The patient is sleepy lethargic orientation could not be determined Results CBC & Chem 7: 06/25/22 07:08 06/25/22 07:08 Labs: Abnormal Lab Results - Last 24 Hours (Table) 06/22/22 06/22/22 06/22/22 Range/Units 02:08 02:08 02:08 WBC 21.9 H (3.8-10.6) k/uL Plt Count 116 L (150-450) k/uL Neutrophils # 19.3 H (1.3-7.7) k/uL Monocytes # (0-1.0) k/uL PT (9.0-12.0) sec INR (<1.2) D-Dimer (<0.60) mg/L FEU ABG pCO2 (35-45) mmHg ABG pO2 (83-108) mmHg ABG HCO3 (21-25) mmol/L ABG O2 Saturation (94-97) % Sodium 131 L (137-145) mmol/L BUN 52 H (9-20) mg/dL Creatinine 1.28 H (0.66-1.25) mg/dL Glucose 194 H (74-99) mg/dL POC Glucose (mg/dL) (70-110) mg/dL Plasma Lactic Acid Adalid 3.0 H* (0.7-2.0) mmol/L AST 66 H (17-59) U/L CK-MB (CK-2) (0.0-2.4) ng/mL Troponin I (0.000-0.034) ng/mL 08/02/0806/22/22 06/22/22 Range/Units 02:15 02:38 06:33 WBC (3.8-10.6) k/uL Plt Count (150-450) k/uL Neutrophils # (1.3-7.7) k/uL Monocytes # (0-1.0) k/uL PT (9.0-12.0) sec INR (<1.2) D-Dimer (<0.60) mg/L FEU ABG pCO2 (35-45) mmHg ABG pO2 (83-108) mmHg ABG HCO3 (21-25) mmol/L ABG O2 Saturation (94-97) % Sodium (137-145) mmol/L BUN (9-20) mg/dL Creatinine (0.66-1.25) mg/dL Glucose (74-99) mg/dL POC Glucose (mg/dL) 188 H (70-110) mg/dL Plasma Lactic Acid Adalid 3.1 H* (0.7-2.0) mmol/L AST (17-59) U/L CK-MB (CK-2) 6.7 H (0.0-2.4) ng/mL Troponin I (0.000-0.034) ng/mL 06/22/22 06/22/22 06/22/22 Range/Units 06:44 09:06 09:06 WBC 21.9 H (3.8-10.6) k/uL Plt Count 118 L (150-450) k/uL Neutrophils # 18.8 H (1.3-7.7) k/uL Monocytes # 1.2 H (0-1.0) k/uL PT 15.0 H (9.0-12.0) sec INR 1.4 H (<1.2) D-Dimer 2.12 H (<0.60) mg/L FEU ABG pCO2 (35-45) mmHg ABG pO2 (83-108) mmHg ABG HCO3 (21-25) mmol/L ABG O2 Saturation (94-97) % Sodium (137-145) mmol/L BUN (9-20) mg/dL Creatinine (0.66-1.25) mg/dL Glucose (74-99) mg/dL POC Glucose (mg/dL) (70-110) mg/dL Plasma Lactic Acid Adalid (0.7-2.0) mmol/L AST (17-59) U/L CK-MB (CK-2) (0.0-2.4) ng/mL Troponin I (0.000-0.034) ng/mL 06/22/22 06/22/22 06/22/22 Range/Units 10:26 10:42 11:15 WBC (3.8-10.6) k/uL Plt Count (150-450) k/uL Neutrophils # (1.3-7.7) k/uL Monocytes # (0-1.0) k/uL PT (9.0-12.0) sec INR (<1.2) D-Dimer (<0.60) mg/L FEU ABG pCO2 31 L (35-45) mmHg ABG pO2 117 H (83-108) mmHg ABG HCO3 20 L (21-25) mmol/L ABG O2 Saturation 99.4 H (94-97) % Sodium (137-145) mmol/L BUN (9-20) mg/dL Creatinine (0.66-1.25) mg/dL Glucose (74-99) mg/dL POC Glucose (mg/dL) 204 H 216 H (70-110) mg/dL Plasma Lactic Acid Adalid (0.7-2.0) mmol/L AST (17-59) U/L CK-MB (CK-2) (0.0-2.4) ng/mL Troponin I (0.000-0.034) ng/mL 06/22/22 06/22/22 Range/Units 12:10 12:10 WBC (3.8-10.6) k/uL Plt Count (150-450) k/uL Neutrophils # (1.3-7.7) k/uL Monocytes # (0-1.0) k/uL PT (9.0-12.0) sec INR (<1.2) D-Dimer (<0.60) mg/L FEU ABG pCO2 (35-45) mmHg ABG pO2 (83-108) mmHg ABG HCO3 (21-25) mmol/L ABG O2 Saturation (94-97) % Sodium (137-145) mmol/L BUN (9-20) mg/dL Creatinine (0.66-1.25) mg/dL Glucose (74-99) mg/dL POC Glucose (mg/dL) (70-110) mg/dL Plasma Lactic Acid Adalid 5.9 H* (0.7-2.0) mmol/L AST (17-59) U/L CK-MB (CK-2) (0.0-2.4) ng/mL Troponin I 0.237 H* (0.000-0.034) ng/mL Microbiology - Last 24 Hours (Table) 06/22/22 02:08 Blood Culture - Final Blood 06/21/22 12:50 Urine Culture - Preliminary Urine,Voided Assessment and Plan (1) Bacteremia Current Visit: Yes Status: Acute Code(s): R78.81 - BACTEREMIA SNOMED Code(s): 7905509 Plan: 1patient with sepsis in this patient who did have a fever elevated white count elevated lactic acid now with evidence of gram-positive bacteremia with a source possible aspiration pneumonia as repeat x-ray this morning shows increasing density left lower lobe as the patient currently do not have any other obvious focus is abdomen is soft on clinical examination no evidence of any joint swelling or cellulitis was noticed. 2blood cultures will be repeated document clearance of bacteremia. 3we will switch antibiotic therapy to vancomycin and Unasyn while waiting for the work-up to be completed. 4we will check inflammatory markers. We will follow on clinical condition and cultures to further adjust medication if needed Thank you for this consultation will follow this patient along with you Time with Patient: Greater than 30
[2022-06-23] MEDS: AMPICILLIN-SULBACTAM 3 GM in SODIUM CHLORIDE 0.9% 100 ML IVPB SCH ×3 (00:24→14:44)
--- NOTE | 2022-06-23 04:17 | EEG ---
ELECTROENCEPHALOGRAM REPORT CLINICAL HISTORY: This is a 67-year-old gentleman, who presented to the emergency department because of confusion, who continues to have altered mental status. The video EEG is obtained to evaluate for seizure epileptiform activity. RELEVANT MEDICATIONS: IV Ativan, IV Precedex. EEG TYPE: A routine 21-channel EEG is performed with video using the 10/20 electrode placement system. DESCRIPTION: Background consists of [id number] voltage of 6 to 7 Hz activity. There is no physiological stage 2 sleep architecture. There is no focal slowing. Interictal and ictal is none. ACTIVATION PROCEDURES: Photic stimulation and hyperventilation are not performed. CLINICAL INTERPRETATION: This is an abnormal routine EEG. The background slowing is suggestive of mild-to- moderate encephalopathy. Otherwise, there is no focal slowing, epileptiform discharge, or seizure on the EEG. Clinical correlation is recommended. EDYTA / ARMANDO: [id number] / MTDD
[2022-06-23 06:18] LABS: Basophils % (A) 0 %; Eosinophils % (A) 0 %; HCT 41.5 % (39.0-53.0); HGB 13.2 gm/dL (13.0-17.5); Lymphocytes # (A) 1.7 k/uL (1.0-4.8); Lymphocytes % (A) 11 %; MCH 31.8 pg (25.0-35.0); MCHC 31.9 g/dL (31.0-37.0); MCV 99.6 fL (80.0-100.0); Mean Platelet Volume 10.7; Monocytes # (A) 1.1 k/uL (0-1.0); Monocytes % (A) 7 %; Neutrophils # (A) 12.2 k/uL (1.3-7.7); Neutrophils % (A) 79 %; Platelet Count 125 k/uL (150-450); RBC 4.17 m/uL (4.30-5.90); RDW 13.1 % (11.5-15.5); WBC 15.4 k/uL (3.8-10.6)
[2022-06-23] MEDS: LACTATED RINGERS 1,000 ML IV SCH (06:23)
[2022-06-23 06:41] LABS: ALT 40 U/L (4-49); AST 47 U/L (17-59); African American GFR (CKD) >90 (>60 ml/min/1.73 sqM); Albumin 3.1 g/dL (3.5-5.0); Alkaline Phosphatase 69 U/L (38-126); Anion Gap 6 mmol/L; Blood Urea Nitrogen 66 mg/dL (9-20); Carbon Dioxide 26 mmol/L (22-30); Chloride 107 mmol/L (98-107); Glucose 188 mg/dL (74-99); Magnesium 2.5 mg/dL (1.6-2.3); Non-African American GFR(CKD) 88 (>60 ml/min/1.73 sqM); Potassium 4.9 mmol/L (3.5-5.1); Sodium 139 mmol/L (137-145); Total Bilirubin 0.7 mg/dL (0.2-1.3); Total Protein 6.3 g/dL (6.3-8.2)
[2022-06-23 06:51] LABS: Glucose,Whole Blood 168 mg/dL (70-110)
[2022-06-23 07:06] LABS: C Reactive Protein 17.5 mg/dL (<1.0)
[2022-06-23] MEDS: IPRATROPIUM-ALBUTEROL 3 ML NEB INHALATION SCH ×4 (07:53→20:24)
[2022-06-23] MEDS ORDERED: DEXTROSE 50% SYRINGE 50 ML IVP PRN (07:54)
[2022-06-23] MEDS: DEXMEDETOMIDINE/0.9% NACL(PMX) 400 MCG in EMPTY BAG 1 BAG IV SCH (08:04)
[2022-06-23] MEDS: ASPIRIN 81 MG PO SCH (08:08)
[2022-06-23] MEDS: VANCOMYCIN 1,750 MG in SODIUM CHLORIDE 0.9% 500 ML 500 ML IVPB SCH (08:08)
[2022-06-23] MEDS: METOPROLOL SUCCINATE (ER) 50 MG TAB.ER.24H PO SCH (08:08)
--- NOTE | 2022-06-23 08:08 | P.CRDCN ---
History of Present Illness Consult date: 06/23/22 Chief complaint: Change in mental status History of present illness: This is a 67-year-old gentleman who we consulted to see in the intensive care unit for abnormal cardiac enzymes and elevated troponin. The patient is a 67-year-old gentleman with history of smoking as well as history of hypertension and dyslipidemia. Apparently he was brought into the emergency department because of change in mental status and also he was falling at home. The patient was seen and evaluated in the emergency department and subsequently he was admitted to [facility]. for further evaluation. There was a concern about extremely change in mental status on the floor the patient was brought to the intensive care unit after an A team was called to see him. He was seen today in the ICU as a bedside. He is confused and he was also combative and agitated. No in dication that he was experiencing any symptoms of chest pain or chest discomfort. He underwent an extensive workup including computed tomography scan of the chest which showed no evidence of PE. He also underwent basic blood work including CBC and BMP. The CBC showed elevated WBC and the BMP showed acute renal failure. He also underwent urine drug screen and that came in to be positive for opiates. There is a concern about sepsis with a source likely to be pneumonia because also his lactic acid was elevated. Infectious disease is on the case. We consulted to see the patient mainly because of abnormal choke on them. The first set of troponin came in to be normal but the second set of troponin came in to be of normal but below 1. He underwent 2 EKGs. The first one showed sinus tachycardia and the second EKG showed sinus rhythm with ST changes in the lateral leads. Also he underwent an echocardiogram which revealed normal left ventricular systolic function was no obvious wall motion abnormalities concerning for severe underlying coronary artery disease. Obviously the patient does have multiple risk factors for CAD including hypertension and dyslipidemia and also he is a smoker and also he did have apparently history of CVA in the past. At this point I would consider con servative medical approach giving the change in mental status which is extreme he is having and knowing also further information about his baseline status. I would continue the current medical regimen including aspirin and beta guerda. Beside that I will obtain further cardiac enzymes with troponin. Continue heparin for 48 hours. And follow the patient. Past Medical History Past Medical History: Asthma, Cancer, CVA/TIA, GERD/Reflux, Hyperlipidemia, Hy pertension, Thyroid Disorder Additional Past Medical History / Comment(s): Hx. of Brain Aneurysm, SKIN CANCER, CHRONIC NOSEBLEEDS History of Any Multi-Drug Resistant Organisms: None Reported Past Surgical History: Cholecystectomy, Orthopedic Surgery, Tonsillectomy Additional Past Surgical History / Comment(s): Knee surgery, Endovascular coiling for Brain Aneurysm.LESION REMOVED , SUSPENSION MICROLARYNGOSCOPY Past Anesthesia/Blood Transfusion Reactions: Previous Problems w/ Anesthesia Additional Past Anesthesia/Blood Transfusion Reaction / Comment(s): Woke up during surgery. Past Psychological History: Anxiety Smoking Status: Current every day smoker Past Alcohol Use History: None Reported Past Drug Use History: None Reported - Past Family History Mother Family Medical History: Cancer Additional Family Medical History / Comment(s): uterine cancer Father Family Medical History: Cancer, CVA/TIA Additional Family Medical History / Comment(s): skin cancer Sister(s) Family Medical History: Cancer Additional Family Medical History / Comment(s): skin cancer Medications and Allergies Home Medications Medication Instructions Recorded Confirmed Type Baclofen [Lioresal] 10 mg PO HS 02/26/19 06/21/22 History Ipratropium/Albuterol Sulfate 1 puff INHALATION RT-QID 02/26/19 06/21/22 History [Combivent Respimat Inhaler] Metoprolol Succinate [Toprol XL] 50 mg PO QAM 02/26/19 06/21/22 History Omeprazole [PriLOSEC] 20 mg PO AC-BRKFST 02/26/19 06/21/22 History HYDROcodone/APAP 10-325MG [[place] 1 tab PO Q6HR PRN 09/07/21 06/21/22 History 10-325] Levothyroxine Sodium [Synthroid] 88 mcg PO QAM 09/07/21 06/21/22 History Morphine Sulfate ER [Ms Contin] 15 mg PO HS 09/07/21 06/21/22 History Zolpidem Tartrate [Ambien Cr] 12.5 mg PO HS PRN 09/07/21 06/21/22 History lisinopriL [Prinivil] 20 mg PO QAM 09/07/21 06/21/22 History Albuterol Sulfate [Proventil Hfa] 1 - 2 puff INHALATION Q6HR PRN 06/21/22 06/21/22 History Aspirin EC [Ecotrin Low Dose] 81 mg PO DAILY 06/21/22 06/21/22 History Ergocalciferol [Vitamin D2 (1250 1,250 mcg PO Q7D 06/21/22 06/21/22 History Mcg = 21901 Iu)] Fluticasone Nasal [place] [Flonase 1 spray EA NOSTRIL DAILY 06/21/22 06/21/22 History Nasal [place]] Furosemide [Lasix] 20 mg PO DAILY 06/21/22 06/21/22 History Mirtazapine [Remeron] 15 mg PO HS 06/21/22 06/21/22 History hydrOXYzine HCL [Atarax] 10 mg PO HS 06/21/22 06/21/22 History traZODone HCL [Desyrel] 100 mg PO HS 06/21/22 06/21/22 History Allergies Allergy/AdvReac Type Severity Reaction Status Date / Time No Known Allergies Allergy Verified 06/21/22 11:22 Physical Exam Vitals: Vital Signs Temp Pulse Pulse Resp BP BP Pulse Ox 06/23/22 07:54 118 H 93 L 06/23/22 07:00 106 H 28 H 168/87 93 L 06/23/22 06:30 102 H 27 H 168/90 92 L 06/23/22 06:00 93 26 H 141/78 92 L 06/23/22 05:30 86 25 H 161/76 93 L 06/23/22 05:00 96 27 H 133/81 93 L 06/23/22 04:30 70 20 122/62 94 L 06/23/22 04:00 97.7 F 68 20 119/63 94 L 06/23/22 03:30 68 21 120/57 95 06/23/22 03:00 68 22 113/58 94 L 06/23/22 02:30 69 22 116/58 94 L 06/23/22 02:00 68 22 114/61 95 06/23/22 01:30 70 22 114/59 94 L 06/23/22 01:00 70 22 115/55 93 L 06/23/22 00:30 72 21 114/57 93 L 06/23/22 00:00 98.6 F 71 21 113/57 93 L 06/22/22 23:30 71 22 112/57 94 L 06/22/22 23:07 71 22 112/57 94 L 06/22/22 23:00 71 21 110/57 94 L 06/22/22 22:30 72 24 122/60 94 L 06/22/22 22:00 80 24 109/53 94 L 06/22/22 21:30 75 23 119/60 93 L 06/22/22 21:00 99.2 F 76 25 H 110/57 93 L 06/22/22 20:35 76 06/22/22 20:30 70 26 H 135/65 98 06/22/22 20:25 71 06/22/22 20:00 100.2 F H 71 28 H 141/66 95 06/22/22 19:30 73 25 H 123/62 94 L 06/22/22 19:00 73 24 123/64 94 L 06/22/22 18:30 76 24 128/63 94 L 06/22/22 18:00 76 26 H 123/64 94 L 06/22/22 17:30 79 23 123/60 94 L 06/22/22 17:00 84 24 129/65 94 L 06/22/22 16:30 118/55 06/22/22 16:00 99.3 F 89 24 125/60 92 L 06/22/22 15:30 90 27 H 104/51 88 L 06/22/22 15:25 82 18 06/22/22 15:17 80 17 06/22/22 15:00 83 27 H 111/60 93 L 06/22/22 14:30 101 H 36 H 118/61 94 L 06/22/22 14:00 93 28 H 117/58 94 L 06/22/22 13:30 97 28 H 114/59 94 L 06/22/22 13:00 108 H 30 H 157/87 93 L 06/22/22 12:30 121 H 28 H 157/87 93 L 06/22/22 12:00 122 H 29 H 157/87 94 L 06/22/22 11:33 152 H 39 H 94 L 06/22/22 11:00 99.2 F 149 H 30 H 150/84 97 06/22/22 10:45 150 H 40 H 06/22/22 10:32 147 H 40 H Intake and Output 06/22/22 06/23/22 06/23/22 22:59 06:59 14:59 Intake Total 2522.60 700 75 Output Total 854 855 130 Balance 1668.60 -155 -55 Intake: IV 400 700 75 Ampicillin 100 LR 300 600 75 Ofirmev 100 Intake, IV Titration 2122.60 Amount Ampicillin-Sulbactam 3 gm 100 In Sodium Chloride 0.9% 100 ml @ 200 mls/hr IVPB Q6HR [facility] Rx#:[id number] Dexmedetomidine/0.9% NaCl 166.56 (Pmx) 400 mcg In Empty Bag 1 bag @ 0.2 MCG/KG/HR 5.2 mls/hr IV .[id number] [facility] Rx#:[id number] Heparin Sod,Pork in 0.45% 131.04 NaCl 25,000 unit In 0.45 % NaCl 1 250ml.bag @ 18 UNITS/KG/HR 18.72 mls/hr IV .[id number] [facility] Rx#: [id number] Lactated Ringers 1,000 ml 225 @ 75 mls/hr IV .[id number] [facility] Rx#:[id number] Sodium Chloride 0.9% 1, 1000 000 ml @ 999 mls/hr IV . Q1H1M [facility] Rx#:[id number] Vancomycin 1,750 mg In 500 Sodium Chloride 0.9% 500 ml 500 ml @ 167 mls/hr IVPB Q16H [facility] Rx#: [id number] Output: Urine 854 855 130 Other: Voiding Method Indwelling Catheter Indwelling Catheter Weight 102 kg - Constitutional General appearance: mild distress - Respiratory Respiratory: bilateral: CTA - Cardiovascular Rhythm: regular Results 06/23/22 05:46 06/23/22 05:54 Cardiac Enzymes 06/22/22 06/23/22 Range/Units 12:10 05:54 AST 47 (17-59) U/L Troponin I 0.237 H* (0.000-0.034) ng/mL Coagulation 06/22/22 06/22/22 Range/Units 09:06 15:45 PT 15.0 H (9.0-12.0) sec APTT 28.3 145.6 H* (22.0-30.0) sec CBC 06/22/22 06/23/22 Range/Units 09:06 05:46 WBC 21.9 H 15.4 H (3.8-10.6) k/uL RBC 4.64 4.17 L (4.30-5.90) m/uL Hgb 14.8 13.2 (13.0-17.5) gm/dL Hct 45.6 41.5 (39.0-53.0) % Plt Count 118 L 125 L (150-450) k/uL Comprehensive Metabolic Panel 06/23/22 Range/Units 05:54 Sodium 139 (137-145) mmol/L Potassium 4.9 (3.5-5.1) mmol/L Chloride 107 (98-107) mmol/L Carbon Dioxide 26 (22-30) mmol/L BUN 66 H (9-20) mg/dL Creatinine 0.89 (0.66-1.25) mg/dL Glucose 188 H (74-99) mg/dL Calcium 9.0 (8.4-10.2) mg/dL AST 47 (17-59) U/L ALT 40 (4-49) U/L Alkaline Phosphatase 69 (38-126) U/L Total Protein 6.3 (6.3-8.2) g/dL Albumin 3.1 L (3.5-5.0) g/dL Current Medications Generic Name Dose Route Start Last Admin Trade Name Freq PRN Reason Stop Dose Admin Acetaminophen 650 mg 06/21/22 13:29 Acetaminophen Tab 325 Mg Tab PO Q6HR PRN Mild Pain or Fever > 100.5 Albuterol/Ipratropium 3 ml 06/21/22 16:00 06/23/22 07:53 Ipratropium-Albuterol 3 Ml Neb INHALATION 3 ml RT-QID [facility] Administration Albuterol/Ipratropium 3 ml 06/22/22 03:02 06/22/22 03:05 Ipratropium-Albuterol 3 Ml Neb INHALATION 3 ml RT-QID PRN Administration Shortness Of Breath Or Wheezing Aspirin 81 mg 06/22/22 09:00 06/22/22 11:44 Aspirin 81 Mg PO Not Given DAILY [facility] Dextrose/Water 25 ml 06/23/22 07:54 Dextrose 50% Syringe 50 Ml IVP PER PROTOCOL PRN Hypoglycemia Protocol Dextrose/Water 50 ml 06/23/22 07:54 Dextrose 50% Syringe 50 Ml IVP PER PROTOCOL PRN Hypoglycemia Protocol Heparin Sodium (Porcine) 0 unit 06/22/22 08:39 Heparin Sodium 1,000 Un/Ml (10ml Vl) IV PER PROTOCOL PRN Low PTT Protocol Hydralazine HCl 10 mg 06/22/22 10:21 06/22/22 10:45 Hydralazine Hcl 20 Mg/Ml 1 Ml Vial IVP 10 mg Q6HR PRN Administration Blood Pressure - High Dexmedetomidine HCl 400 mcg/ 100 mls @ 5.2 mls/hr 06/22/22 11:30 06/22/22 22:00 IV Solution IV 0 mcg/kg/hr .[id number] [facility] 0 mls/hr Titration Protocol 0.2 MCG/KG/HR Lactated Ringer's 1,000 mls @ 75 mls/hr 06/22/22 14:00 06/23/22 06:23 Lactated Ringers IV 75 mls/hr .[id number] [facility] Administration Ampicillin Sodium/Sulbactam 100 mls @ 200 mls/hr 06/22/22 18:00 06/23/22 06:24 Sodium 3 gm/ Sodium Chloride IVPB 200 mls/hr Q6HR [facility] Administration Protocol Vancomycin HCl 1,750 mg/ 500 mls @ 167 mls/hr 06/22/22 16:00 06/22/22 16:03 Sodium Chloride IVPB 167 mls/hr Q16H [facility] Administration Acetaminophen 1,000 mg/ IV 100 mls @ 400 mls/hr 06/22/22 20:24 06/22/22 20:31 Solution IVPB 06/23/22 12:14 400 mls/hr Q6HR PRN Administration Fever and/ or Pain Insulin Aspart 0 unit 06/23/22 12:30 Insulin Aspart (Novolog) 100 Unit/Ml Vial SQ ACHS [facility] Protocol Metoprolol Succinate 50 mg 06/22/22 09:00 06/22/22 11:44 Metoprolol Succinate (Er) 50 Mg Tab.Er.24h PO Not Given QAM [facility] Naloxone HCl 0.2 mg 06/21/22 13:29 Naloxone 0.4 Mg/Ml 1 Ml Vial IV Q2M PRN Opioid Reversal Intake and Output 06/22/22 06/23/22 06/23/22 22:59 06:59 14:59 Intake Total 2522.60 700 75 Output Total 854 855 130 Balance 1668.60 -155 -55 Intake: IV 400 700 75 Ampicillin 100 LR 300 600 75 Ofirmev 100 Intake, IV Titration 2122.60 Amount Ampicillin-Sulbactam 3 gm 100 In Sodium Chloride 0.9% 100 ml @ 200 mls/hr IVPB Q6HR [facility] Rx#:[id number] Dexmedetomidine/0.9% NaCl 166.56 (Pmx) 400 mcg In Empty Bag 1 bag @ 0.2 MCG/KG/HR 5.2 mls/hr IV .[id number] [facility] Rx#:[id number] Heparin Sod,Pork in 0.45% 131.04 NaCl 25,000 unit In 0.45 % NaCl 1 250ml.bag @ 18 UNITS/KG/HR 18.72 mls/hr IV .[id number] [facility] Rx#: [id number] Lactated Ringers 1,000 ml 225 @ 75 mls/hr IV .[id number] [facility] Rx#:[id number] Sodium Chloride 0.9% 1, 1000 000 ml @ 999 mls/hr IV . Q1H1M [facility] Rx#:[id number] Vancomycin 1,750 mg In 500 Sodium Chloride 0.9% 500 ml 500 ml @ 167 mls/hr IVPB Q16H [facility] Rx#: [id number] Output: Urine 854 855 130 Other: Voiding Method Indwelling Catheter Indwelling Catheter Weight 102 kg 06/23/22 05:46 06/23/22 05:54 Assessment and Plan Assessment: Assessment #1 change in mental status #2 sepsis likely to be related to pneumonia #3 evidence of myocardial injury was no evidence of ischemia so far #4 acute renal failure #5 hypertension #6 dyslipidemia #7 history of smoking #8 multiple comorbid conditions Plan #1 continue the aspirin as well as beta guerda #2 continue heparin for 48 hours #3 the echo was reviewed and showed normal LV function #4 further recommendation to follow
--- NOTE | 2022-06-23 08:48 | P.PN ---
Subjective Patient is seen in follow for acute kidney injury. GFR back to baseline. Remains confused. Receiving IV fluids. On antibiotics for strep bacteremia. Vital signs are stable. General: Resting in bed. Moaning. HEENT: Head exam is unremarkable. LUNGS: Breath sounds decreased. HEART: Tachycardic. ABDOMEN: Soft, no distention. EXTREMITITES: No edema. Objective - Vital Signs Vital signs: Vital Signs Temp 97.7 F 06/23/22 04:00 Pulse 111 H 06/23/22 08:04 Resp 28 H 06/23/22 07:00 BP 168/87 06/23/22 07:00 Pulse Ox 93 L 06/23/22 07:54 FiO2 Intake & Output 06/22/22 06/23/22 06/23/22 18:59 06:59 18:59 Intake Total 2115.493 1155.64 75 Output Total 500 1209 130 Balance 1615.493 -53.36 -55 Weight 102 kg Intake: IV 1100 75 Ampicillin 100 LR 900 75 Ofirmev 100 Intake, IV Titration 2115.493 55.64 0 Amount Ampicillin-Sulbactam 3 gm 100 In Sodium Chloride 0.9% 100 ml @ 200 mls/hr IVPB Q6HR [facility] Rx#:[id number] Dexmedetomidine/0.9% NaCl 159.453 55.64 0 (Pmx) 400 mcg In Empty Bag 1 bag @ 0.2 MCG/KG/HR 5.2 mls/hr IV .[id number] [facility] Rx#:[id number] Heparin Sod,Pork in 0.45% 131.04 NaCl 25,000 unit In 0.45 % NaCl 1 250ml.bag @ 18 UNITS/KG/HR 18.72 mls/hr IV .[id number] [facility] Rx#: [id number] Lactated Ringers 1,000 ml 225 @ 75 mls/hr IV .[id number] [facility] Rx#:[id number] Sodium Chloride 0.9% 1, 1000 000 ml @ 999 mls/hr IV . Q1H1M [facility] Rx#:[id number] Vancomycin 1,750 mg In 500 Sodium Chloride 0.9% 500 ml 500 ml @ 167 mls/hr IVPB Q16H [facility] Rx#: [id number] Output: Urine 500 1209 130 Other: Voiding Method Indwelling Catheter Indwelling Catheter - Labs CBC & Chem 7: 06/23/22 05:46 06/23/22 05:54 Labs: Abnormal Lab Results - Last 24 Hours (Table) 06/22/22 06/22/22 06/22/22 Range/Units 09:06 09:06 10:26 WBC 21.9 H (3.8-10.6) k/uL RBC (4.30-5.90) m/uL Plt Count 118 L (150-450) k/uL Neutrophils # 18.8 H (1.3-7.7) k/uL Monocytes # 1.2 H (0-1.0) k/uL PT 15.0 H (9.0-12.0) sec INR 1.4 H (<1.2) APTT (22.0-30.0) sec ABG pCO2 (35-45) mmHg ABG pO2 (83-108) mmHg ABG HCO3 (21-25) mmol/L ABG O2 Saturation (94-97) % BUN (9-20) mg/dL Glucose (74-99) mg/dL POC Glucose (mg/dL) 204 H (70-110) mg/dL Plasma Lactic Acid Adalid (0.7-2.0) mmol/L Magnesium (1.6-2.3) mg/dL Troponin I (0.000-0.034) ng/mL C-Reactive Protein (<1.0) mg/dL Albumin (3.5-5.0) g/dL 06/22/22 06/22/22 06/22/22 Range/Units 10:42 11:15 12:10 WBC (3.8-10.6) k/uL RBC (4.30-5.90) m/uL Plt Count (150-450) k/uL Neutrophils # (1.3-7.7) k/uL Monocytes # (0-1.0) k/uL PT (9.0-12.0) sec INR (<1.2) APTT (22.0-30.0) sec ABG pCO2 31 L (35-45) mmHg ABG pO2 117 H (83-108) mmHg ABG HCO3 20 L (21-25) mmol/L ABG O2 Saturation 99.4 H (94-97) % BUN (9-20) mg/dL Glucose (74-99) mg/dL POC Glucose (mg/dL) 216 H (70-110) mg/dL Plasma Lactic Acid Adalid 5.9 H* (0.7-2.0) mmol/L Magnesium (1.6-2.3) mg/dL Troponin I (0.000-0.034) ng/mL C-Reactive Protein (<1.0) mg/dL Albumin (3.5-5.0) g/dL 06/22/22 06/22/22 06/22/22 Range/Units 12:10 15:45 15:45 WBC (3.8-10.6) k/uL RBC (4.30-5.90) m/uL Plt Count (150-450) k/uL Neutrophils # (1.3-7.7) k/uL Monocytes # (0-1.0) k/uL PT (9.0-12.0) sec INR (<1.2) APTT 145.6 H* (22.0-30.0) sec ABG pCO2 (35-45) mmHg ABG pO2 (83-108) mmHg ABG HCO3 (21-25) mmol/L ABG O2 Saturation (94-97) % BUN (9-20) mg/dL Glucose (74-99) mg/dL POC Glucose (mg/dL) (70-110) mg/dL Plasma Lactic Acid Adalid 3.0 H* (0.7-2.0) mmol/L Magnesium (1.6-2.3) mg/dL Troponin I 0.237 H* (0.000-0.034) ng/mL C-Reactive Protein (<1.0) mg/dL Albumin (3.5-5.0) g/dL 06/22/22 06/22/22 06/23/22 Range/Units 17:03 21:12 05:46 WBC 15.4 H (3.8-10.6) k/uL RBC 4.17 L (4.30-5.90) m/uL Plt Count 125 L (150-450) k/uL Neutrophils # 12.2 H (1.3-7.7) k/uL Monocytes # 1.1 H (0-1.0) k/uL PT (9.0-12.0) sec INR (<1.2) APTT (22.0-30.0) sec ABG pCO2 (35-45) mmHg ABG pO2 (83-108) mmHg ABG HCO3 (21-25) mmol/L ABG O2 Saturation (94-97) % BUN (9-20) mg/dL Glucose (74-99) mg/dL POC Glucose (mg/dL) 232 H 193 H (70-110) mg/dL Plasma Lactic Acid Adalid (0.7-2.0) mmol/L Magnesium (1.6-2.3) mg/dL Troponin I (0.000-0.034) ng/mL C-Reactive Protein (<1.0) mg/dL Albumin (3.5-5.0) g/dL 06/23/22 06/23/22 Range/Units 05:54 06:50 WBC (3.8-10.6) k/uL RBC (4.30-5.90) m/uL Plt Count (150-450) k/uL Neutrophils # (1.3-7.7) k/uL Monocytes # (0-1.0) k/uL PT (9.0-12.0) sec INR (<1.2) APTT (22.0-30.0) sec ABG pCO2 (35-45) mmHg ABG pO2 (83-108) mmHg ABG HCO3 (21-25) mmol/L ABG O2 Saturation (94-97) % BUN 66 H (9-20) mg/dL Glucose 188 H (74-99) mg/dL POC Glucose (mg/dL) 168 H (70-110) mg/dL Plasma Lactic Acid Adalid (0.7-2.0) mmol/L Magnesium 2.5 H (1.6-2.3) mg/dL Troponin I (0.000-0.034) ng/mL C-Reactive Protein 17.5 H (<1.0) mg/dL Albumin 3.1 L (3.5-5.0) g/dL Microbiology - Last 24 Hours (Table) 06/21/22 12:50 Urine Culture - Final Urine,Voided 06/22/22 02:08 Blood Culture Gram Stain - Preliminary Blood Blood Culture - Preliminary Strep agalactiae - (group b) 06/22/22 02:08 Blood Culture - Final Blood Assessment and Plan Plan: Assessment: 1. Acute kidney injury mostly prerenal secondary to sepsis improved with IV hydration. Creatinine was 2.24 on admission and is 0.89 today. Baseline creatinine 0.8 from April 2022. No hydronephrosis noted on kidney ultrasound. 2. Hypovolemic hyponatremia improved with IV hydration. 3. Severe sepsis possibly from UTI. ID following. Blood culture positive for group B strep. 4. Altered mental status likely from sepsis. Plan: Maintain IV hydration. Continue to hold diuretics. Follow-up cultures. Avoid nephrotoxins. Continue to monitor renal function and urine output. EF preserved. No seizure activity noted on EEG. Patient received IV contrast for CTA on 06/22/2022 which showed no evidence of PE. Monitor for contrast-induced acute kidney injury.
[2022-06-23] MEDS ORDERED: HEPARIN SODIUM 1,000 UN/ML (10ML VL) IV PRN (08:55)
[2022-06-23] MEDS ORDERED: HEPARIN SOD,PORK IN 0.45% NACL 25,000 UNIT in 0.45% NACL 1 250ML.BAG IV SCH (09:00)
[2022-06-23] MEDS ORDERED: ACYCLOVIR SODIUM IV SCH (10:00)
[2022-06-23] MEDS ORDERED: SODIUM CHLORIDE 0.9% IV SCH (10:00)
--- NOTE | 2022-06-23 10:10 | P.PN ---
Subjective Progress Note Date: 06/23/22 Principal diagnosis: Acute mental status changes. Pulmonary consultation dated 06/22/2022. 59-year-old male seen in the emergency department, on June 21. He apparently presented with mental status changes. In addition, he apparently was having multiple falls at home. The patient was seen and evaluated, and admitted to the hospital with a diagnosis of mental status changes, opiate dependence, COPD, acute kidney injury, and he went to the general medical floor. Today, a rapid response was called on this patient, and the patient was transferred down to the intensive care unit. Currently he is on 3 L nasal cannula. He is getting saline at 70 mL an hour, and dexmedetomidine at 1 mcg/kg/h. He apparently has a history of asthma, CVA, GERD, hyperlipidemia, hypertension, echo staxis, anxiety, and chronic tobacco dependence. Labs today include a white count of 21.9, hemoglobin 14.8, hematocrit 45.6, and a platelet count of 118,000. D- dimer is 2.12. PT is 15 with an INR 1.4. Blood gases, show pO2 of 117, pCO2 31, pH is 7.42. That was on 50% oxygen. Sodium 131, potassium 4.9, chlorides 100, CO2 22, BUN 52, and creatinine 1.28. Lactic acid was elevated at 5.9. I've asked the nurse to give the patient a liter of lactated Ringer's. Troponin was 0.237. Urine is got trace protein and trace glucose. Leukocyte esterase and nitrate were both negative. Drug screen was positive for opiates. Nasal swab testing was negative for coronavirus. Chest x-ray on admission was negative for an acute process. Head CT initially did not show anything acute. A repeat chest x-ray today showed increased interstitial densities in the left lower lobe. Progress note dated 06/23/2022. This is a 59-year-old male who was seen yesterday in consultation. He was initially seen on June 21 in the emergency room with mental status changes. The patient was transferred to the intensive care unit, because of worsening mental status, and some cardiovascular issues. Currently, the patient is on 3 L nasal cannula. He is getting lactated Ringer's at 75 mL an hour. He is on vancomycin and Unasyn. Was on Rocephin. He has been seen by infectious diseases and neurology. His CT angiogram was negative. Initially heparin was discontinued, but because of EKG changes, he'll be restarted. He is also on dexmedetomidine at 0.3 mcg/kg/h. I did speak to neurology about possible viral encephalitis, and we discussed the possibility of lumbar puncture, and acyclovir IV. White count 15.4, hemoglobin 13.2, hematocrit 41.5, and platelet count 225,000. Sodium, potassium, chloride, CO2, are all normal. BUN 66, and creatinine 0.89. Group B streptococci are in the blood cultures. Objective - Vital Signs Vital signs: Vital Signs Temp 98.9 F 06/23/22 08:00 Pulse 75 06/23/22 09:00 Resp 23 06/23/22 09:00 BP 168/87 06/23/22 09:00 Pulse Ox 95 06/23/22 09:00 FiO2 Intake & Output 06/22/22 06/23/22 06/23/22 18:59 06:59 18:59 Intake Total 2115.493 1155.64 725 Output Total 500 1209 330 Balance 1615.493 -53.36 395 Weight 102 kg Intake: IV 1100 225 Ampicillin 100 LR 900 225 Ofirmev 100 Intake, IV Titration 2115.493 55.64 0 Amount Ampicillin-Sulbactam 3 gm 100 In Sodium Chloride 0.9% 100 ml @ 200 mls/hr IVPB Q6HR [facility] Rx#:[id number] Dexmedetomidine/0.9% NaCl 159.453 55.64 0 (Pmx) 400 mcg In Empty Bag 1 bag @ 0.2 MCG/KG/HR 5.2 mls/hr IV .[id number] [facility] Rx#:[id number] Heparin Sod,Pork in 0.45% 131.04 NaCl 25,000 unit In 0.45 % NaCl 1 250ml.bag @ 18 UNITS/KG/HR 18.72 mls/hr IV .[id number] [facility] Rx#: [id number] Lactated Ringers 1,000 ml 225 @ 75 mls/hr IV .[id number] [facility] Rx#:[id number] Sodium Chloride 0.9% 1, 1000 000 ml @ 999 mls/hr IV . Q1H1M [facility] Rx#:[id number] Vancomycin 1,750 mg In 500 Sodium Chloride 0.9% 500 ml 500 ml @ 167 mls/hr IVPB Q16H [facility] Rx#: [id number] Oral 500 Output: Urine 500 1209 330 Other: Voiding Method Indwelling Catheter Indwelling Catheter - Exam No acute distress, sedated on dexmedetomidine. HEENT examination is grossly unremarkable. Neck supple. Full range of motion. No adenopathy thyromegaly or neck vein distention. Cardiovascular examination reveals regular rhythm rate. S1-S2 normal. No S3 or S4. No discernible murmur noted. Heart rate 75 bpm. Lungs reveal mostly clear breath sounds. Breath sounds are equal bilaterally. Scattered rhonchi are noted. No wheezes or crackles. Saturations are mid to high 90s, on 3 L. Abdomen soft bowel sounds are heard. No masses or tenderness. Extremities reveal some mild edema. No cyanosis or clubbing. Skin reveals some chronic venous stasis changes. Neurologic examination is difficult to assess given the fact that he is on dexmedetomidine. - Labs CBC & Chem 7: 06/23/22 05:46 06/23/22 05:54 Labs: Abnormal Lab Results - Last 24 Hours (Table) 06/22/22 06/22/22 06/22/22 Range/Units 10:26 10:42 11:15 WBC (3.8-10.6) k/uL RBC (4.30-5.90) m/uL Plt Count (150-450) k/uL Neutrophils # (1.3-7.7) k/uL Monocytes # (0-1.0) k/uL APTT (22.0-30.0) sec ABG pCO2 31 L (35-45) mmHg ABG pO2 117 H (83-108) mmHg ABG HCO3 20 L (21-25) mmol/L ABG O2 Saturation 99.4 H (94-97) % BUN (9-20) mg/dL Glucose (74-99) mg/dL POC Glucose (mg/dL) 204 H 216 H (70-110) mg/dL Plasma Lactic Acid Adalid (0.7-2.0) mmol/L Magnesium (1.6-2.3) mg/dL Troponin I (0.000-0.034) ng/mL C-Reactive Protein (<1.0) mg/dL Albumin (3.5-5.0) g/dL Procalcitonin (0.02-0.09) ng/mL 06/22/22 06/22/22 06/22/22 Range/Units 12:10 12:10 15:45 WBC (3.8-10.6) k/uL RBC (4.30-5.90) m/uL Plt Count (150-450) k/uL Neutrophils # (1.3-7.7) k/uL Monocytes # (0-1.0) k/uL APTT 145.6 H* (22.0-30.0) sec ABG pCO2 (35-45) mmHg ABG pO2 (83-108) mmHg ABG HCO3 (21-25) mmol/L ABG O2 Saturation (94-97) % BUN (9-20) mg/dL Glucose (74-99) mg/dL POC Glucose (mg/dL) (70-110) mg/dL Plasma Lactic Acid Adalid 5.9 H* (0.7-2.0) mmol/L Magnesium (1.6-2.3) mg/dL Troponin I 0.237 H* (0.000-0.034) ng/mL C-Reactive Protein (<1.0) mg/dL Albumin (3.5-5.0) g/dL Procalcitonin (0.02-0.09) ng/mL 06/22/22 06/22/22 06/22/22 Range/Units 15:45 17:03 21:12 WBC (3.8-10.6) k/uL RBC (4.30-5.90) m/uL Plt Count (150-450) k/uL Neutrophils # (1.3-7.7) k/uL Monocytes # (0-1.0) k/uL APTT (22.0-30.0) sec ABG pCO2 (35-45) mmHg ABG pO2 (83-108) mmHg ABG HCO3 (21-25) mmol/L ABG O2 Saturation (94-97) % BUN (9-20) mg/dL Glucose (74-99) mg/dL POC Glucose (mg/dL) 232 H 193 H (70-110) mg/dL Plasma Lactic Acid Adalid 3.0 H* (0.7-2.0) mmol/L Magnesium (1.6-2.3) mg/dL Troponin I (0.000-0.034) ng/mL C-Reactive Protein (<1.0) mg/dL Albumin (3.5-5.0) g/dL Procalcitonin (0.02-0.09) ng/mL 06/23/22 06/23/22 06/23/22 Range/Units 05:46 05:46 05:54 WBC 15.4 H (3.8-10.6) k/uL RBC 4.17 L (4.30-5.90) m/uL Plt Count 125 L (150-450) k/uL Neutrophils # 12.2 H (1.3-7.7) k/uL Monocytes # 1.1 H (0-1.0) k/uL APTT (22.0-30.0) sec ABG pCO2 (35-45) mmHg ABG pO2 (83-108) mmHg ABG HCO3 (21-25) mmol/L ABG O2 Saturation (94-97) % BUN 66 H (9-20) mg/dL Glucose 188 H (74-99) mg/dL POC Glucose (mg/dL) (70-110) mg/dL Plasma Lactic Acid Adalid (0.7-2.0) mmol/L Magnesium 2.5 H (1.6-2.3) mg/dL Troponin I (0.000-0.034) ng/mL C-Reactive Protein 17.5 H (<1.0) mg/dL Albumin 3.1 L (3.5-5.0) g/dL Procalcitonin 1.72 H (0.02-0.09) ng/mL 06/23/22 Range/Units 06:50 WBC (3.8-10.6) k/uL RBC (4.30-5.90) m/uL Plt Count (150-450) k/uL Neutrophils # (1.3-7.7) k/uL Monocytes # (0-1.0) k/uL APTT (22.0-30.0) sec ABG pCO2 (35-45) mmHg ABG pO2 (83-108) mmHg ABG HCO3 (21-25) mmol/L ABG O2 Saturation (94-97) % BUN (9-20) mg/dL Glucose (74-99) mg/dL POC Glucose (mg/dL) 168 H (70-110) mg/dL Plasma Lactic Acid Adalid (0.7-2.0) mmol/L Magnesium (1.6-2.3) mg/dL Troponin I (0.000-0.034) ng/mL C-Reactive Protein (<1.0) mg/dL Albumin (3.5-5.0) g/dL Procalcitonin (0.02-0.09) ng/mL Microbiology - Last 24 Hours (Table) 06/21/22 12:50 Urine Culture - Final Urine,Voided 06/22/22 02:08 Blood Culture Gram Stain - Preliminary Blood Blood Culture - Preliminary Strep agalactiae - (group b) 06/22/22 02:08 Blood Culture - Final Blood Assessment and Plan Assessment: Acute mental status changes, rapid respiratory rate, tachycardia, and elevated lactic acid, rule out either sepsis, or a primary neurologic event. History of CVA. History of hypertension. History of hyperlipidemia. History of asthma. History of gastroesophageal reflux disease. History of anxiety. History of chronic back. History of epistaxis. Plan: Plan dated 06/22/2022 The patient was transferred down to the intensive care. The patient is going for a computed tomography scan of the chest, to rule out pulmonary embolism. I've asked the nurses to switch his fluids to lactated Ringer's, and give him a bolus. In addition, I've asked the nurse to consult neurology for his mental status changes. Labs, x-rays, and medications are all reviewed. Prognosis is guarded. The patient is not very active at home. Plan dated 06/23/2022. The patient is currently on vancomycin and Unasyn. Blood cultures were positive for group B streptococci. I did discuss with neurology, and LP, and also the initiation of acyclovir. The patient appears to be a bit better today than he was yesterday. He still is on dexmedetomidine though. His vital signs seem reasonably stable. CTA was negative for pulmonary embolism. He had some EKG changes and will be started back on IV heparin. We will continue to follow make recommendations where appropriate. Prognosis is very guarded. Time with Patient: Greater than 30
[2022-06-23] MEDS ORDERED: LIDOCAINE 2% (PF) 20 MG/ML 5 ML VIAL ONE (10:29)
[2022-06-23 10:35] LABS: INR 1.3 (<1.2); Partial Thromboplastin Time 29.7 sec (22.0-30.0)
[2022-06-23 12:07] LABS: Glucose,Whole Blood 160 mg/dL (70-110)
--- NOTE | 2022-06-23 12:41 | P.PN ---
Subjective Progress Note Date: 06/23/22 Ag Souza, is a 67-year-old male who presented to [facility] emergency room after having a multiple falls at home, has significant mental status changes with somnolence and poor responsiveness, history per his , over the last 24 hours patient has been not feeling well, he fell twice at home, on the second time she was not able to wake him up and get him up from the floor through the bed, she called EMS and he was brought into emergency room. He was evaluated in the emergency room vital examination on presentation revealed a temperature of 97.3 pulse 82 respiration 16 blood pressure 121/67 pulse ox 97% on room air Laboratory data revealed a white blood count of 23.2 hemoglobin 14.4 platelet count 98,000 sodium 129 potassium 4.9 chloride 96 CO2 25 BUN 51 creatinine 2.24 troponin level was 0.02 COVID-19 testing was negative Testing in the emergency room revealed chest x-ray done in the emergency room did not reveal significant abnormality. Patient has a known history of degenerative disc disease with chronic pain maintained on narcotics for pain management he was given Narcan in the emergency room which led to improvement in his mental status. Patient was admitted to medical floor for further evaluation and treatment. On 06/22/2022 patient was seen and examined on the telemetry floor he is still somnolent, agitated, pulling on his IV line, he was started through the night on IV Ativan, vital examination reveals a temperature of 98.4 pulse 132 respiration 24 blood pressure 172/91 pulse ox 96% on 2 L nasal cannula, white blood count is 21.9 hemoglobin 14.8 platelet count 118 d-dimer was elevated at 2.12 at this time will start patient on IV heparin high-intensity for possible pulmonary embolism, his kidney function is still elevated, will defer computed tomography scan this time, he is not cooperative to proceed with VQ scan, will continue with IV fluid, nephrology consultation and infectious disease consultation were requested. On 06/23/2022 patient was seen and examined in the ICU he is more alert and oriented today vital exam reveals a temperature of 98.2 pulse 86 respiration 23 blood pressure 138/79 pulse ox 93% on 2 L nasal cannula white blood count is down to 15.4 hemoglobin 13.2 platelet count 125 kidney function improved with BUN at 66 and creatinine at 0.89 kidney ultrasound was done and revealed no evidence of renal stones or obstruction, CT angiogram of the chest was done and there was no evidence of pulmonary embolism, blood culture were positive for Streptococcus group b , patient is currently maintained on IV Unasyn, IV vanc omycin and IV acyclovir, cardiology, pulmonary, nephrology, neurology and infectious disease are following Objective - Vital Signs Vital signs: Vital Signs Temp 98.9 F 06/23/22 08:00 Pulse 75 06/23/22 09:00 Resp 23 06/23/22 09:00 BP 168/87 06/23/22 09:00 Pulse Ox 95 06/23/22 09:00 FiO2 Intake & Output 06/22/22 06/23/22 06/23/22 18:59 06:59 18:59 Intake Total 2115.493 1155.64 725 Output Total 500 1209 330 Balance 1615.493 -53.36 395 Weight 102 kg Intake: IV 1100 225 Ampicillin 100 LR 900 225 Ofirmev 100 Intake, IV Titration 2115.493 55.64 0 Amount Ampicillin-Sulbactam 3 gm 100 In Sodium Chloride 0.9% 100 ml @ 200 mls/hr IVPB Q6HR [facility] Rx#:[id number] Dexmedetomidine/0.9% NaCl 159.453 55.64 0 (Pmx) 400 mcg In Empty Bag 1 bag @ 0.2 MCG/KG/HR 5.2 mls/hr IV .[id number] [facility] Rx#:[id number] Heparin Sod,Pork in 0.45% 131.04 NaCl 25,000 unit In 0.45 % NaCl 1 250ml.bag @ 18 UNITS/KG/HR 18.72 mls/hr IV .[id number] [facility] Rx#: [id number] Lactated Ringers 1,000 ml 225 @ 75 mls/hr IV .[id number] [facility] Rx#:[id number] Sodium Chloride 0.9% 1, 1000 000 ml @ 999 mls/hr IV . Q1H1M [facility] Rx#:[id number] Vancomycin 1,750 mg In 500 Sodium Chloride 0.9% 500 ml 500 ml @ 167 mls/hr IVPB Q16H [facility] Rx#: [id number] Oral 500 Output: Urine 500 1209 330 Other: Voiding Method Indwelling Catheter Indwelling Catheter - Exam In general patient is alert and responsive in no apparent distress HEENT head normocephalic and atraumatic Neck is supple no JVD no goiter no lymphadenopathy no carotid bruit Chest examination is clear to auscultation no crackles no wheezing Cardiac exam reveals regular heart sounds S1 and S2 no gallops no murmurs Abdomen is soft nontender no organomegaly with normal bowel sounds Extremity exam reveals no edema no cyanosis or clubbing Neurological examination reveals no gross focal deficits - Labs CBC & Chem 7: 06/23/22 05:46 06/23/22 05:54 Labs: Abnormal Lab Results - Last 24 Hours (Table) 06/22/22 06/22/22 06/22/22 Range/Units 10:26 10:42 11:15 WBC (3.8-10.6) k/uL RBC (4.30-5.90) m/uL Plt Count (150-450) k/uL Neutrophils # (1.3-7.7) k/uL Monocytes # (0-1.0) k/uL APTT (22.0-30.0) sec ABG pCO2 31 L (35-45) mmHg ABG pO2 117 H (83-108) mmHg ABG HCO3 20 L (21-25) mmol/L ABG O2 Saturation 99.4 H (94-97) % BUN (9-20) mg/dL Glucose (74-99) mg/dL POC Glucose (mg/dL) 204 H 216 H (70-110) mg/dL Plasma Lactic Acid Adalid (0.7-2.0) mmol/L Magnesium (1.6-2.3) mg/dL Troponin I (0.000-0.034) ng/mL C-Reactive Protein (<1.0) mg/dL Albumin (3.5-5.0) g/dL Procalcitonin (0.02-0.09) ng/mL 06/22/22 06/22/22 06/22/22 Range/Units 12:10 12:10 15:45 WBC (3.8-10.6) k/uL RBC (4.30-5.90) m/uL Plt Count (150-450) k/uL Neutrophils # (1.3-7.7) k/uL Monocytes # (0-1.0) k/uL APTT 145.6 H* (22.0-30.0) sec ABG pCO2 (35-45) mmHg ABG pO2 (83-108) mmHg ABG HCO3 (21-25) mmol/L ABG O2 Saturation (94-97) % BUN (9-20) mg/dL Glucose (74-99) mg/dL POC Glucose (mg/dL) (70-110) mg/dL Plasma Lactic Acid Adalid 5.9 H* (0.7-2.0) mmol/L Magnesium (1.6-2.3) mg/dL Troponin I 0.237 H* (0.000-0.034) ng/mL C-Reactive Protein (<1.0) mg/dL Albumin (3.5-5.0) g/dL Procalcitonin (0.02-0.09) ng/mL 06/22/22 06/22/22 06/22/22 Range/Units 15:45 17:03 21:12 WBC (3.8-10.6) k/uL RBC (4.30-5.90) m/uL Plt Count (150-450) k/uL Neutrophils # (1.3-7.7) k/uL Monocytes # (0-1.0) k/uL APTT (22.0-30.0) sec ABG pCO2 (35-45) mmHg ABG pO2 (83-108) mmHg ABG HCO3 (21-25) mmol/L ABG O2 Saturation (94-97) % BUN (9-20) mg/dL Glucose (74-99) mg/dL POC Glucose (mg/dL) 232 H 193 H (70-110) mg/dL Plasma Lactic Acid Adalid 3.0 H* (0.7-2.0) mmol/L Magnesium (1.6-2.3) mg/dL Troponin I (0.000-0.034) ng/mL C-Reactive Protein (<1.0) mg/dL Albumin (3.5-5.0) g/dL Procalcitonin (0.02-0.09) ng/mL 06/23/22 06/23/22 06/23/22 Range/Units 05:46 05:46 05:54 WBC 15.4 H (3.8-10.6) k/uL RBC 4.17 L (4.30-5.90) m/uL Plt Count 125 L (150-450) k/uL Neutrophils # 12.2 H (1.3-7.7) k/uL Monocytes # 1.1 H (0-1.0) k/uL APTT (22.0-30.0) sec ABG pCO2 (35-45) mmHg ABG pO2 (83-108) mmHg ABG HCO3 (21-25) mmol/L ABG O2 Saturation (94-97) % BUN 66 H (9-20) mg/dL Glucose 188 H (74-99) mg/dL POC Glucose (mg/dL) (70-110) mg/dL Plasma Lactic Acid Adalid (0.7-2.0) mmol/L Magnesium 2.5 H (1.6-2.3) mg/dL Troponin I (0.000-0.034) ng/mL C-Reactive Protein 17.5 H (<1.0) mg/dL Albumin 3.1 L (3.5-5.0) g/dL Procalcitonin 1.72 H (0.02-0.09) ng/mL 06/23/22 Range/Units 06:50 WBC (3.8-10.6) k/uL RBC (4.30-5.90) m/uL Plt Count (150-450) k/uL Neutrophils # (1.3-7.7) k/uL Monocytes # (0-1.0) k/uL APTT (22.0-30.0) sec ABG pCO2 (35-45) mmHg ABG pO2 (83-108) mmHg ABG HCO3 (21-25) mmol/L ABG O2 Saturation (94-97) % BUN (9-20) mg/dL Glucose (74-99) mg/dL POC Glucose (mg/dL) 168 H (70-110) mg/dL Plasma Lactic Acid Adalid (0.7-2.0) mmol/L Magnesium (1.6-2.3) mg/dL Troponin I (0.000-0.034) ng/mL C-Reactive Protein (<1.0) mg/dL Albumin (3.5-5.0) g/dL Procalcitonin (0.02-0.09) ng/mL Microbiology - Last 24 Hours (Table) 06/21/22 12:50 Urine Culture - Final Urine,Voided 06/22/22 02:08 Blood Culture Gram Stain - Preliminary Blood Blood Culture - Preliminary Strep agalactiae - (group b) 06/22/22 02:08 Blood Culture - Final Blood Assessment and Plan Plan: Mental status changes, cause is unclear could be related to overdose of narcotic Leukocytosis, no clear source of infection, chest x-ray and urine analysis don't show any clear evidence of infection, patient received IV steroids in the EMS and in the emergency room, will check lactic acid level and monitor CBC Acute exacerbation of COPD with wheezing on presentation, he was started on IV Solu-Medrol in the emergency room, he is on inhaled bronchodilators Evidence of acute kidney injury was elevated BUN and creatinine patient was started on IV fluid at this time Mild elevation in troponin level will monitor Underlying history of hypertension Underlying history of hypothyroidism Underlying history of depression with anxiety disorder Underlying history of vitamin D deficiency Underlying history of degenerative disc disease with chronic back pain maintained on narcotics for pain management Underlying history of gastroesophageal reflux disease At this time patient is admitted to telemetry floor Will check d-dimer check lactic acid recheck CBC and CMP Continue with IV fluid and recheck renal function Consult nephrology
[2022-06-23] MEDS: INSULIN ASPART (NovoLOG) 100 UNIT/ML VIAL SQ SCH ×3 (14:47→21:53)
--- NOTE | 2022-06-23 15:00 | P.PN ---
Subjective Progress Note Date: 06/23/22 The patient is seen at bedside and per nurse today he is doing better than yesterday. Yesterday he had Tmax of 100.2F and his keukocytosis is trending down. He was not started on Acylovir and was making improvement. Patient stated he has chronic neck pain and denies any worsening of neck pain. Denies any headache. He was on IV heparin drip yesterday for concern for PE which CTA was negative. Today cardiology wants to restart for elevated troponin. Objective - Vital Signs Vital signs: Vital Signs Temp 98.2 F 06/23/22 12:00 Pulse 68 06/23/22 14:00 Resp 21 06/23/22 14:00 BP 126/68 06/23/22 14:00 Pulse Ox 95 06/23/22 14:00 FiO2 Intake & Output 06/22/22 06/23/22 06/23/22 18:59 06:59 18:59 Intake Total 2115.493 1155.64 1550 Output Total 500 1209 855 Balance 1615.493 -53.36 695 Weight 102 kg Intake: IV 1100 550 Acyclovir Sodium 1,500 mg 250 In Sodium Chloride 0.9% 250 ml @ 280 mls/hr IV Q8H [facility] Rx#:[id number] Ampicillin 100 LR 900 300 Ofirmev 100 Intake, IV Titration 2115.493 55.64 0 Amount Ampicillin-Sulbactam 3 gm 100 In Sodium Chloride 0.9% 100 ml @ 200 mls/hr IVPB Q6HR [facility] Rx#:[id number] Dexmedetomidine/0.9% NaCl 159.453 55.64 0 (Pmx) 400 mcg In Empty Bag 1 bag @ 0.2 MCG/KG/HR 5.2 mls/hr IV .[id number] [facility] Rx#:[id number] Heparin Sod,Pork in 0.45% 131.04 NaCl 25,000 unit In 0.45 % NaCl 1 250ml.bag @ 18 UNITS/KG/HR 18.72 mls/hr IV .[id number] [facility] Rx#: [id number] Lactated Ringers 1,000 ml 225 @ 75 mls/hr IV .[id number] [facility] Rx#:[id number] Sodium Chloride 0.9% 1, 1000 000 ml @ 999 mls/hr IV . Q1H1M [facility] Rx#:[id number] Vancomycin 1,750 mg In 500 Sodium Chloride 0.9% 500 ml 500 ml @ 167 mls/hr IVPB Q16H [facility] Rx#: [id number] Oral 1000 Output: Urine 500 1209 855 Other: Voiding Method Indwelling Catheter Indwelling Catheter - Exam GENERAL: The patient is lying in bed and does not appear in acute distress. HENT: Had supple neck but had pain to flexion (stated chronic). NEUROLOGICAL: Higher mental function: The patient is drwosy but awakeable to voice (better than yesterday). Is oriented to self, place. He correctly stated the year. He was able to name watch. He is following simple commands. No aphasia. Cranial nerves: Visual field are full to confrontation throughout. EOM intact and no nystagmus. No facial weakness. No dysarthria. Motor: The strength is lifting bilateral uppers above gravity and no focality. Regarding the lowers he would only wiggle his tongues. No jerking of any extremities. Sensation: Normal to touch. Some of the workup during this hospital visit consisted of: Urinalysis is a the nitrate is negative, leukocyte esterase negative, urine white blood cells 14 a bacteria is rare and it doesn't seem like urinary tract infection for my opinion Urine drug screen is positive for opiates otherwise versus nondetected and the serum alcohol was less than 10 Coronavirus PCR not detected. Blood culture is strep agalactiase CT of the head is reported as no acute intracranial process. I personally reviewed the CT of the head and I agree with the report CT cervical spine was reported as no evidence of cervical spine fracture. Mild Multiple level degenerative disc disease with mild spinal canal and neuroforaminal stenosis at C5-C6. COPD changes. Atherosclerosis of the carotid bifurcation Routine EEG is abnormal. The back was longus suggestive of mild to moderate encephalopathy. Otherwise there is no focal slowing, perform discharges or seizure in the EEG - Labs CBC & Chem 7: 06/23/22 05:46 06/23/22 05:54 Labs: Abnormal Lab Results - Last 24 Hours (Table) 06/22/22 06/22/22 06/22/22 Range/Units 15:45 15:45 17:03 WBC (3.8-10.6) k/uL RBC (4.30-5.90) m/uL Plt Count (150-450) k/uL Neutrophils # (1.3-7.7) k/uL Monocytes # (0-1.0) k/uL PT (9.0-12.0) sec INR (<1.2) APTT 145.6 H* (22.0-30.0) sec BUN (9-20) mg/dL Glucose (74-99) mg/dL POC Glucose (mg/dL) 232 H (70-110) mg/dL Hemoglobin A1c (0.0-6.0) % Plasma Lactic Acid Adalid 3.0 H* (0.7-2.0) mmol/L Magnesium (1.6-2.3) mg/dL C-Reactive Protein (<1.0) mg/dL Albumin (3.5-5.0) g/dL Procalcitonin (0.02-0.09) ng/mL 06/22/22 06/23/22 06/23/22 Range/Units 21:12 05:46 05:46 WBC 15.4 H (3.8-10.6) k/uL RBC 4.17 L (4.30-5.90) m/uL Plt Count 125 L (150-450) k/uL Neutrophils # 12.2 H (1.3-7.7) k/uL Monocytes # 1.1 H (0-1.0) k/uL PT (9.0-12.0) sec INR (<1.2) APTT (22.0-30.0) sec BUN (9-20) mg/dL Glucose (74-99) mg/dL POC Glucose (mg/dL) 193 H (70-110) mg/dL Hemoglobin A1c (0.0-6.0) % Plasma Lactic Acid Adalid (0.7-2.0) mmol/L Magnesium (1.6-2.3) mg/dL C-Reactive Protein (<1.0) mg/dL Albumin (3.5-5.0) g/dL Procalcitonin 1.72 H (0.02-0.09) ng/mL 06/23/22 06/23/22 06/23/22 Range/Units 05:46 05:54 06:50 WBC (3.8-10.6) k/uL RBC (4.30-5.90) m/uL Plt Count (150-450) k/uL Neutrophils # (1.3-7.7) k/uL Monocytes # (0-1.0) k/uL PT (9.0-12.0) sec INR (<1.2) APTT (22.0-30.0) sec BUN 66 H (9-20) mg/dL Glucose 188 H (74-99) mg/dL POC Glucose (mg/dL) 168 H (70-110) mg/dL Hemoglobin A1c 6.4 H (0.0-6.0) % Plasma Lactic Acid Adalid (0.7-2.0) mmol/L Magnesium 2.5 H (1.6-2.3) mg/dL C-Reactive Protein 17.5 H (<1.0) mg/dL Albumin 3.1 L (3.5-5.0) g/dL Procalcitonin (0.02-0.09) ng/mL 06/23/22 06/23/22 Range/Units 09:15 12:05 WBC (3.8-10.6) k/uL RBC (4.30-5.90) m/uL Plt Count (150-450) k/uL Neutrophils # (1.3-7.7) k/uL Monocytes # (0-1.0) k/uL PT 14.0 H (9.0-12.0) sec INR 1.3 H (<1.2) APTT (22.0-30.0) sec BUN (9-20) mg/dL Glucose (74-99) mg/dL POC Glucose (mg/dL) 160 H (70-110) mg/dL Hemoglobin A1c (0.0-6.0) % Plasma Lactic Acid Adalid (0.7-2.0) mmol/L Magnesium (1.6-2.3) mg/dL C-Reactive Protein (<1.0) mg/dL Albumin (3.5-5.0) g/dL Procalcitonin (0.02-0.09) ng/mL Microbiology - Last 24 Hours (Table) 06/22/22 02:08 Blood Culture Gram Stain - Preliminary Blood Blood Culture - Preliminary Strep agalactiae - (group b) 06/21/22 12:50 Urine Culture - Final Urine,Voided 06/22/22 02:08 Blood Culture - Final Blood Assessment and Plan Assessment: Encephalopathy due to sepsis (Strep agalactiae group B). Does not appear encephalitis since patient mentation improving without antiviral medication and his leukocytosis is trending down; and it is neutrophilic predominate which in viral infection would be more lymphocytic predominate. Acute kidney injury--resolved History of brain aneurysm s/p coil History of CVA Hypothyroidism History of hypertension and during this hospital visit is mildly to moderately hypertensive History of chronic low back pain History of chronic neck pain. History of epistaxis Plan: Does not appear encephalitis since patient mentation improving without antiviral medication and his leukocytosis is trending down; and it is neutrophilic predominate which in viral infection would be more lymphocytic predominate. But I spoke with ICU attending regarding the case and notified him that I will start him on Acylovir 20mg/kg every 8 hour IV as prophylaxis until Lumbar Puncture. On Uasyn 3gm every 6 hours and Vancomycin. I will defer modification of medication to the I.D. team. I ordered a lumbar puncture to rule out any meningoencephalitis. MRI Brain w/ and w/o is pending. Please avoid any sedation or narcotic that would affect patient's mentation. Infection disease team is on board Nephrology on board Will defer the rest of medical management to primary and ICU team. The plan is discussed with patient, ICU attending and his nurse. UPDATE: Patient refused Lumbar Puncture. Chapincito Sanderson M.D. Neuro-Hospitalist Time with Patient: Less than 30
--- NOTE | 2022-06-23 16:26 | MR ---
EXAMINATION TYPE: MR brain wo/w con DATE OF EXAM: 06/23/2022 COMPARISON: CT brain 2 days ago HISTORY: Altered mental status. TECHNIQUE: Multiplanar, multisequence images of the brain and brainstem is performed without and with IV contras t, utilizing 8 mL intravenous Gadavist . FINDINGS: Slightly suboptimal due to motion artifact. Diffusion weighted images demonstrate no eviden ce of a recent infarct or other diffusion abnormality. Mild ventricular and sulcal prominence. Some s cattered small foci of T2 hyperintensity throughout the white matter prior primarily through the fron papito lobes. Approximately 10-15 tiny scattered lesions are present. Midline structures demonstrate normal morphology. The craniocervical junction appears within normal limits. Some susceptibility artifact at the suprasellar level corresponds to aneurysm clip seen arnol r on CT. Post contrast images demonstrate no abnormal enhancement. The dural venous sinuses appear pa tent. The visualized sinuses are clear and the globes are intact. IMPRESSION: No MRI evidence for a recent infarct. Mild diffuse age-related cerebral atrophy and chron ic small vessel ischemic change is present. No abnormal enhancement noted.
[2022-06-23 17:05] LABS: Glucose,Whole Blood 154 mg/dL (70-110)
[2022-06-23] MEDS ORDERED: VANCOMYCIN 1,750 MG in SODIUM CHLORIDE 0.9% 500 ML 500 ML IVPB SCH (21:00)
[2022-06-23 21:50] LABS: Glucose,Whole Blood 137 mg/dL (70-110)
[2022-06-23] MEDS: ACETAMINOPHEN TAB 325 MG TAB PO PRN (23:44)
[2022-06-23] MEDS: hydrALAZINE HCL 20 MG/ML 1 ML VIAL IVP PRN (23:50)
[2022-06-24] MEDS: DEXMEDETOMIDINE/0.9% NACL(PMX) 400 MCG in EMPTY BAG 1 BAG IV SCH ×3 (00:43→17:18)
[2022-06-24] MEDS: CLEVIDIPINE BUTYRATE 25 MG in EMPTY BAG 1 BAG IV SCH ×3 (00:57→07:52)
[2022-06-24 01:00] LABS: ABG Base Excess 0.5 mmol/L; ABG HCO3 24 mmol/L (21-25); ABG Oxygen Saturation 97.5 % (94-97); ABG PCO2 32 mmHg (35-45); ABG PH 7.48 (7.35-7.45); ABG PO2 72 mmHg (83-108); ABG TCO2 25 mmol/L (19-24); Allen Test Performed? Yes
[2022-06-24 01:06] LABS: Basophils # (A) 0.1 k/uL (0-0.2); Basophils % (A) 1 %; Eosinophils % (A) 0 %; HCT 42.6 % (39.0-53.0); Lymphocytes # (A) 2.3 k/uL (1.0-4.8); Lymphocytes % (A) 10 %; MCH 31.9 pg (25.0-35.0); MCHC 32.8 g/dL (31.0-37.0); MCV 97.3 fL (80.0-100.0); Mean Platelet Volume 9.6; Monocytes # (A) 2.1 k/uL (0-1.0); Monocytes % (A) 9 %; Neutrophils # (A) 18.1 k/uL (1.3-7.7); Neutrophils % (A) 78 %; Platelet Count 149 k/uL (150-450); RBC 4.37 m/uL (4.30-5.90); RDW 13.1 % (11.5-15.5); WBC 23.2 k/uL (3.8-10.6)
[2022-06-24 01:10] LABS: African American GFR (CKD) >90 (>60 ml/min/1.73 sqM); Anion Gap 8 mmol/L; Blood Urea Nitrogen 53 mg/dL (9-20); Carbon Dioxide 21 mmol/L (22-30); Chloride 107 mmol/L (98-107); Glucose 177 mg/dL (74-99); Non-African American GFR(CKD) >90 (>60 ml/min/1.73 sqM); Potassium 4.6 mmol/L (3.5-5.1); Sodium 136 mmol/L (137-145)
[2022-06-24] MEDS: LACTATED RINGERS 1,000 ML IV SCH ×2 (05:42→16:20)
[2022-06-24 06:54] LABS: Glucose,Whole Blood 229 mg/dL (70-110)
[2022-06-24] MEDS: INSULIN ASPART (NovoLOG) 100 UNIT/ML VIAL SQ SCH ×4 (06:59→21:44)
[2022-06-24 07:12] LABS: Basophils # (A) 0.1 k/uL (0-0.2); Basophils % (A) 0 %; Eosinophils % (A) 0 %; HCT 40.5 % (39.0-53.0); HGB 12.7 gm/dL (13.0-17.5); Lymphocytes # (A) 2.6 k/uL (1.0-4.8); Lymphocytes % (A) 13 %; MCH 31.6 pg (25.0-35.0); MCHC 31.4 g/dL (31.0-37.0); MCV 100.6 fL (80.0-100.0); Mean Platelet Volume 9.8; Monocytes % (A) 10 %; Neutrophils # (A) 14.9 k/uL (1.3-7.7); Neutrophils % (A) 74 %; Platelet Count 141 k/uL (150-450); RBC 4.03 m/uL (4.30-5.90); RDW 13.1 % (11.5-15.5)
[2022-06-24 07:25] LABS: INR 1.4 (<1.2); Prothrombin Time 14.5 sec (9.0-12.0)
[2022-06-24 07:27] LABS: ALT 47 U/L (4-49); AST 56 U/L (17-59); African American GFR (CKD) >90 (>60 ml/min/1.73 sqM); Albumin 2.7 g/dL (3.5-5.0); Alkaline Phosphatase 72 U/L (38-126); Anion Gap 2 mmol/L; Blood Urea Nitrogen 65 mg/dL (9-20); Calcium 8.7 mg/dL (8.4-10.2); Carbon Dioxide 23 mmol/L (22-30); Chloride 109 mmol/L (98-107); Glucose 212 mg/dL (74-99); Non-African American GFR(CKD) >90 (>60 ml/min/1.73 sqM); Potassium 4.8 mmol/L (3.5-5.1); Sodium 134 mmol/L (137-145); Total Bilirubin 0.6 mg/dL (0.2-1.3); Total Protein 5.8 g/dL (6.3-8.2)
--- NOTE | 2022-06-24 08:03 | P.PN ---
Subjective Progress Note Date: 06/24/22 Principal diagnosis: Acute coronary syndrome The patient is a pleasant 67-year-old patient with a past medical history significant for hypertension and dyslipidemia and also borderline diabetes as well as history of smoking who was admitted to the hospital with a change in mental status and he was diagnosed with sepsis possible related to pneumonia and also he was ruled in for acute coronary syndrome. The troponin came in to be abnormal with his EKG showed dynamic changes with ST and T wave abnormalities concerning for severe underlying coronary artery disease. The patient was seen this morning. His confusion has been somewhat better. Unfortunately he developed GI bleeding yesterday. He was on heparin IV which was started yesterday but the heparin was stopped. He underwent an echocardiogram which revealed normal left ventricular systolic function was no significant valvular abnormalities disease hemoglobin drop about 2 g since yesterday. The hemoglobin this morning is 12. On examination his abdomen is distended and seems to be somewhat tender. He might benefit from a computed tomography scan to rule out any acute abdomen. Objective - Vital Signs Vital signs: Vital Signs Temp 98.6 F 06/24/22 00:00 Pulse 100 06/24/22 07:00 Resp 16 06/24/22 07:00 BP 141/75 06/24/22 07:00 Pulse Ox 95 06/24/22 06:00 FiO2 Intake & Output 06/23/22 06/24/22 06/24/22 18:59 06:59 18:59 Intake Total 2527.636 1070.571 41.333 Output Total 1190 1050 Balance 1337.636 20.571 41.333 Weight 104.3 kg Intake: IV 950 900 Acyclovir Sodium 1,500 mg 250 In Sodium Chloride 0.9% 250 ml @ 280 mls/hr IV Q8H [facility] Rx#:[id number] Ampicillin 250 75 LR 450 825 Intake, IV Titration 77.636 170.571 41.333 Amount Clevidipine Butyrate 25 25.767 41.333 mg In Empty Bag 1 bag @ 1 MG/HR 2 mls/hr IV .Q24H [facility] Rx#:[id number] Dexmedetomidine/0.9% NaCl 0 114.993 (Pmx) 400 mcg In Empty Bag 1 bag @ 0.2 MCG/KG/HR 5.2 mls/hr IV .[id number] [facility] Rx#:[id number] Heparin Sod,Pork in 0.45% 77.636 29.811 NaCl 25,000 unit In 0.45 % NaCl 1 250ml.bag @ 9.8 UNITS/KG/HR 9.996 mls/hr IV .Q24H [facility] Rx#: [id number] Oral 1500 Output: Urine 1190 1050 Other: Voiding Method Indwelling Catheter Indwelling Catheter # Bowel Movements 1 - Constitutional General appearance: Present: no acute distress - Respiratory Respiratory: bilateral: diminished - Cardiovascular Rhythm: regular Heart sounds: normal: S1, S2 - Labs CBC & Chem 7: 06/24/22 06:56 06/24/22 06:56 Labs: Abnormal Lab Results - Last 24 Hours (Table) 06/23/22 06/23/22 06/23/22 Range/Units 05:46 05:46 09:15 WBC (3.8-10.6) k/uL RBC (4.30-5.90) m/uL Hgb (13.0-17.5) gm/dL MCV (80.0-100.0) fL Plt Count (150-450) k/uL Neutrophils # (1.3-7.7) k/uL Monocytes # (0-1.0) k/uL PT 14.0 H (9.0-12.0) sec INR 1.3 H (<1.2) APTT (22.0-30.0) sec ABG pH (7.35-7.45) ABG pCO2 (35-45) mmHg ABG pO2 (83-108) mmHg ABG Total CO2 (19-24) mmol/L ABG O2 Saturation (94-97) % Sodium (137-145) mmol/L Chloride (98-107) mmol/L Carbon Dioxide (22-30) mmol/L BUN (9-20) mg/dL Creatinine (0.66-1.25) mg/dL Glucose (74-99) mg/dL POC Glucose (mg/dL) (70-110) mg/dL Hemoglobin A1c 6.4 H (0.0-6.0) % Total Protein (6.3-8.2) g/dL Albumin (3.5-5.0) g/dL Procalcitonin 1.72 H (0.02-0.09) ng/mL Crossmatch 06/23/22 06/23/22 06/23/22 Range/Units 12:05 17:04 17:51 WBC (3.8-10.6) k/uL RBC (4.30-5.90) m/uL Hgb (13.0-17.5) gm/dL MCV (80.0-100.0) fL Plt Count (150-450) k/uL Neutrophils # (1.3-7.7) k/uL Monocytes # (0-1.0) k/uL PT (9.0-12.0) sec INR (<1.2) APTT 33.7 H (22.0-30.0) sec ABG pH (7.35-7.45) ABG pCO2 (35-45) mmHg ABG pO2 (83-108) mmHg ABG Total CO2 (19-24) mmol/L ABG O2 Saturation (94-97) % Sodium (137-145) mmol/L Chloride (98-107) mmol/L Carbon Dioxide (22-30) mmol/L BUN (9-20) mg/dL Creatinine (0.66-1.25) mg/dL Glucose (74-99) mg/dL POC Glucose (mg/dL) 160 H 154 H (70-110) mg/dL Hemoglobin A1c (0.0-6.0) % Total Protein (6.3-8.2) g/dL Albumin (3.5-5.0) g/dL Procalcitonin (0.02-0.09) ng/mL Crossmatch 06/23/22 06/23/22 06/24/22 Range/Units 21:48 23:17 00:47 WBC (3.8-10.6) k/uL RBC (4.30-5.90) m/uL Hgb (13.0-17.5) gm/dL MCV (80.0-100.0) fL Plt Count (150-450) k/uL Neutrophils # (1.3-7.7) k/uL Monocytes # (0-1.0) k/uL PT (9.0-12.0) sec INR (<1.2) APTT 30.4 H (22.0-30.0) sec ABG pH (7.35-7.45) ABG pCO2 (35-45) mmHg ABG pO2 (83-108) mmHg ABG Total CO2 (19-24) mmol/L ABG O2 Saturation (94-97) % Sodium 136 L (137-145) mmol/L Chloride (98-107) mmol/L Carbon Dioxide 21 L (22-30) mmol/L BUN 53 H (9-20) mg/dL Creatinine 0.64 L (0.66-1.25) mg/dL Glucose 177 H (74-99) mg/dL POC Glucose (mg/dL) 137 H (70-110) mg/dL Hemoglobin A1c (0.0-6.0) % Total Protein (6.3-8.2) g/dL Albumin (3.5-5.0) g/dL Procalcitonin (0.02-0.09) ng/mL Crossmatch 06/24/22 06/24/22 06/24/22 Range/Units 00:47 00:57 01:36 WBC 23.2 H (3.8-10.6) k/uL RBC (4.30-5.90) m/uL Hgb (13.0-17.5) gm/dL MCV (80.0-100.0) fL Plt Count 149 L (150-450) k/uL Neutrophils # 18.1 H (1.3-7.7) k/uL Monocytes # 2.1 H (0-1.0) k/uL PT (9.0-12.0) sec INR (<1.2) APTT (22.0-30.0) sec ABG pH 7.48 H (7.35-7.45) ABG pCO2 32 L (35-45) mmHg ABG pO2 72 L (83-108) mmHg ABG Total CO2 25 H (19-24) mmol/L ABG O2 Saturation 97.5 H (94-97) % Sodium (137-145) mmol/L Chloride (98-107) mmol/L Carbon Dioxide (22-30) mmol/L BUN (9-20) mg/dL Creatinine (0.66-1.25) mg/dL Glucose (74-99) mg/dL POC Glucose (mg/dL) (70-110) mg/dL Hemoglobin A1c (0.0-6.0) % Total Protein (6.3-8.2) g/dL Albumin (3.5-5.0) g/dL Procalcitonin (0.02-0.09) ng/mL Crossmatch See Detail 06/24/22 06/24/22 06/24/22 Range/Units 06:52 06:56 06:56 WBC (3.8-10.6) k/uL RBC (4.30-5.90) m/uL Hgb (13.0-17.5) gm/dL MCV (80.0-100.0) fL Plt Count (150-450) k/uL Neutrophils # (1.3-7.7) k/uL Monocytes # (0-1.0) k/uL PT 14.5 H (9.0-12.0) sec INR 1.4 H (<1.2) APTT (22.0-30.0) sec ABG pH (7.35-7.45) ABG pCO2 (35-45) mmHg ABG pO2 (83-108) mmHg ABG Total CO2 (19-24) mmol/L ABG O2 Saturation (94-97) % Sodium 134 L (137-145) mmol/L Chloride 109 H (98-107) mmol/L Carbon Dioxide (22-30) mmol/L BUN 65 H (9-20) mg/dL Creatinine (0.66-1.25) mg/dL Glucose 212 H (74-99) mg/dL POC Glucose (mg/dL) 229 H (70-110) mg/dL Hemoglobin A1c (0.0-6.0) % Total Protein 5.8 L (6.3-8.2) g/dL Albumin 2.7 L (3.5-5.0) g/dL Procalcitonin (0.02-0.09) ng/mL Crossmatch 06/24/22 Range/Units 06:56 WBC 20.0 H (3.8-10.6) k/uL RBC 4.03 L (4.30-5.90) m/uL Hgb 12.7 L (13.0-17.5) gm/dL MCV 100.6 H (80.0-100.0) fL Plt Count 141 L (150-450) k/uL Neutrophils # 14.9 H (1.3-7.7) k/uL Monocytes # 2.0 H (0-1.0) k/uL PT (9.0-12.0) sec INR (<1.2) APTT (22.0-30.0) sec ABG pH (7.35-7.45) ABG pCO2 (35-45) mmHg ABG pO2 (83-108) mmHg ABG Total CO2 (19-24) mmol/L ABG O2 Saturation (94-97) % Sodium (137-145) mmol/L Chloride (98-107) mmol/L Carbon Dioxide (22-30) mmol/L BUN (9-20) mg/dL Creatinine (0.66-1.25) mg/dL Glucose (74-99) mg/dL POC Glucose (mg/dL) (70-110) mg/dL Hemoglobin A1c (0.0-6.0) % Total Protein (6.3-8.2) g/dL Albumin (3.5-5.0) g/dL Procalcitonin (0.02-0.09) ng/mL Crossmatch Microbiology - Last 24 Hours (Table) 06/22/22 02:08 Blood Culture Gram Stain - Preliminary Blood Blood Culture - Preliminary Strep agalactiae - (group b) Assessment and Plan Assessment: Assessment #1 change in mental status #2 sepsis likely to be related to pneumonia #3 evidence of myocardial injury was no evidence of ischemia so far #4 acute renal failure #5 hypertension #6 dyslipidemia #7 history of smoking #8 gastrointestinal bleeding Plan #1 agree about stopping the heparin #2 rule out acute abdomen #3 continue monitor the hemoglobin and kidney function #4 the echo was reviewed and showed normal LV function
--- NOTE | 2022-06-24 08:41 | P.PN ---
Subjective Patient is seen in follow for acute kidney injury. GFR back to baseline. Remains confused. Receiving IV fluids. On antibiotics for strep bacteremia. Hemodynamically stable. Nonoliguric. Vital signs are stable. General: Resting in bed. HEENT: Head exam is unremarkable. LUNGS: Breath sounds decreased. HEART: Regular rate and rhythm. ABDOMEN: Soft, no distention. EXTREMITITES: No edema. Objective - Vital Signs Vital signs: Vital Signs Temp 98.6 F 06/24/22 00:00 Pulse 100 06/24/22 07:00 Resp 16 06/24/22 07:00 BP 141/75 06/24/22 07:00 Pulse Ox 95 06/24/22 06:00 FiO2 Intake & Output 06/23/22 06/24/22 06/24/22 18:59 06:59 18:59 Intake Total 2527.636 1070.571 113.916 Output Total 1190 1050 Balance 1337.636 20.571 113.916 Weight 104.3 kg Intake: IV 950 900 Acyclovir Sodium 1,500 mg 250 In Sodium Chloride 0.9% 250 ml @ 280 mls/hr IV Q8H [facility] Rx#:[id number] Ampicillin 250 75 LR 450 825 Intake, IV Titration 77.636 170.571 113.916 Amount Clevidipine Butyrate 25 25.767 41.333 mg In Empty Bag 1 bag @ 1 MG/HR 2 mls/hr IV .Q24H [facility] Rx#:[id number] Dexmedetomidine/0.9% NaCl 0 114.993 72.583 (Pmx) 400 mcg In Empty Bag 1 bag @ 0.2 MCG/KG/HR 5.2 mls/hr IV .[id number] [facility] Rx#:[id number] Heparin Sod,Pork in 0.45% 77.636 29.811 NaCl 25,000 unit In 0.45 % NaCl 1 250ml.bag @ 9.8 UNITS/KG/HR 9.996 mls/hr IV .Q24H [facility] Rx#: [id number] Oral 1500 Output: Urine 1190 1050 Other: Voiding Method Indwelling Catheter Indwelling Catheter # Bowel Movements 1 - Labs CBC & Chem 7: 06/24/22 06:56 06/24/22 06:56 Labs: Abnormal Lab Results - Last 24 Hours (Table) 06/23/22 06/23/22 06/23/22 Range/Units 05:46 05:46 09:15 WBC (3.8-10.6) k/uL RBC (4.30-5.90) m/uL Hgb (13.0-17.5) gm/dL MCV (80.0-100.0) fL Plt Count (150-450) k/uL Neutrophils # (1.3-7.7) k/uL Monocytes # (0-1.0) k/uL PT 14.0 H (9.0-12.0) sec INR 1.3 H (<1.2) APTT (22.0-30.0) sec ABG pH (7.35-7.45) ABG pCO2 (35-45) mmHg ABG pO2 (83-108) mmHg ABG Total CO2 (19-24) mmol/L ABG O2 Saturation (94-97) % Sodium (137-145) mmol/L Chloride (98-107) mmol/L Carbon Dioxide (22-30) mmol/L BUN (9-20) mg/dL Creatinine (0.66-1.25) mg/dL Glucose (74-99) mg/dL POC Glucose (mg/dL) (70-110) mg/dL Hemoglobin A1c 6.4 H (0.0-6.0) % Total Protein (6.3-8.2) g/dL Albumin (3.5-5.0) g/dL Procalcitonin 1.72 H (0.02-0.09) ng/mL Crossmatch 06/23/22 06/23/22 06/23/22 Range/Units 12:05 17:04 17:51 WBC (3.8-10.6) k/uL RBC (4.30-5.90) m/uL Hgb (13.0-17.5) gm/dL MCV (80.0-100.0) fL Plt Count (150-450) k/uL Neutrophils # (1.3-7.7) k/uL Monocytes # (0-1.0) k/uL PT (9.0-12.0) sec INR (<1.2) APTT 33.7 H (22.0-30.0) sec ABG pH (7.35-7.45) ABG pCO2 (35-45) mmHg ABG pO2 (83-108) mmHg ABG Total CO2 (19-24) mmol/L ABG O2 Saturation (94-97) % Sodium (137-145) mmol/L Chloride (98-107) mmol/L Carbon Dioxide (22-30) mmol/L BUN (9-20) mg/dL Creatinine (0.66-1.25) mg/dL Glucose (74-99) mg/dL POC Glucose (mg/dL) 160 H 154 H (70-110) mg/dL Hemoglobin A1c (0.0-6.0) % Total Protein (6.3-8.2) g/dL Albumin (3.5-5.0) g/dL Procalcitonin (0.02-0.09) ng/mL Crossmatch 06/23/22 06/23/22 06/24/22 Range/Units 21:48 23:17 00:47 WBC (3.8-10.6) k/uL RBC (4.30-5.90) m/uL Hgb (13.0-17.5) gm/dL MCV (80.0-100.0) fL Plt Count (150-450) k/uL Neutrophils # (1.3-7.7) k/uL Monocytes # (0-1.0) k/uL PT (9.0-12.0) sec INR (<1.2) APTT 30.4 H (22.0-30.0) sec ABG pH (7.35-7.45) ABG pCO2 (35-45) mmHg ABG pO2 (83-108) mmHg ABG Total CO2 (19-24) mmol/L ABG O2 Saturation (94-97) % Sodium 136 L (137-145) mmol/L Chloride (98-107) mmol/L Carbon Dioxide 21 L (22-30) mmol/L BUN 53 H (9-20) mg/dL Creatinine 0.64 L (0.66-1.25) mg/dL Glucose 177 H (74-99) mg/dL POC Glucose (mg/dL) 137 H (70-110) mg/dL Hemoglobin A1c (0.0-6.0) % Total Protein (6.3-8.2) g/dL Albumin (3.5-5.0) g/dL Procalcitonin (0.02-0.09) ng/mL Crossmatch 06/24/22 06/24/22 06/24/22 Range/Units 00:47 00:57 01:36 WBC 23.2 H (3.8-10.6) k/uL RBC (4.30-5.90) m/uL Hgb (13.0-17.5) gm/dL MCV (80.0-100.0) fL Plt Count 149 L (150-450) k/uL Neutrophils # 18.1 H (1.3-7.7) k/uL Monocytes # 2.1 H (0-1.0) k/uL PT (9.0-12.0) sec INR (<1.2) APTT (22.0-30.0) sec ABG pH 7.48 H (7.35-7.45) ABG pCO2 32 L (35-45) mmHg ABG pO2 72 L (83-108) mmHg ABG Total CO2 25 H (19-24) mmol/L ABG O2 Saturation 97.5 H (94-97) % Sodium (137-145) mmol/L Chloride (98-107) mmol/L Carbon Dioxide (22-30) mmol/L BUN (9-20) mg/dL Creatinine (0.66-1.25) mg/dL Glucose (74-99) mg/dL POC Glucose (mg/dL) (70-110) mg/dL Hemoglobin A1c (0.0-6.0) % Total Protein (6.3-8.2) g/dL Albumin (3.5-5.0) g/dL Procalcitonin (0.02-0.09) ng/mL Crossmatch See Detail 06/24/22 06/24/22 06/24/22 Range/Units 06:52 06:56 06:56 WBC (3.8-10.6) k/uL RBC (4.30-5.90) m/uL Hgb (13.0-17.5) gm/dL MCV (80.0-100.0) fL Plt Count (150-450) k/uL Neutrophils # (1.3-7.7) k/uL Monocytes # (0-1.0) k/uL PT 14.5 H (9.0-12.0) sec INR 1.4 H (<1.2) APTT (22.0-30.0) sec ABG pH (7.35-7.45) ABG pCO2 (35-45) mmHg ABG pO2 (83-108) mmHg ABG Total CO2 (19-24) mmol/L ABG O2 Saturation (94-97) % Sodium 134 L (137-145) mmol/L Chloride 109 H (98-107) mmol/L Carbon Dioxide (22-30) mmol/L BUN 65 H (9-20) mg/dL Creatinine (0.66-1.25) mg/dL Glucose 212 H (74-99) mg/dL POC Glucose (mg/dL) 229 H (70-110) mg/dL Hemoglobin A1c (0.0-6.0) % Total Protein 5.8 L (6.3-8.2) g/dL Albumin 2.7 L (3.5-5.0) g/dL Procalcitonin (0.02-0.09) ng/mL Crossmatch 06/24/22 Range/Units 06:56 WBC 20.0 H (3.8-10.6) k/uL RBC 4.03 L (4.30-5.90) m/uL Hgb 12.7 L (13.0-17.5) gm/dL MCV 100.6 H (80.0-100.0) fL Plt Count 141 L (150-450) k/uL Neutrophils # 14.9 H (1.3-7.7) k/uL Monocytes # 2.0 H (0-1.0) k/uL PT (9.0-12.0) sec INR (<1.2) APTT (22.0-30.0) sec ABG pH (7.35-7.45) ABG pCO2 (35-45) mmHg ABG pO2 (83-108) mmHg ABG Total CO2 (19-24) mmol/L ABG O2 Saturation (94-97) % Sodium (137-145) mmol/L Chloride (98-107) mmol/L Carbon Dioxide (22-30) mmol/L BUN (9-20) mg/dL Creatinine (0.66-1.25) mg/dL Glucose (74-99) mg/dL POC Glucose (mg/dL) (70-110) mg/dL Hemoglobin A1c (0.0-6.0) % Total Protein (6.3-8.2) g/dL Albumin (3.5-5.0) g/dL Procalcitonin (0.02-0.09) ng/mL Crossmatch Microbiology - Last 24 Hours (Table) 06/23/22 06:02 Blood Culture - Preliminary Blood No Growth after 24 hours 06/22/22 02:08 Blood Culture Gram Stain - Preliminary Blood Blood Culture - Preliminary Strep agalactiae - (group b) Assessment and Plan Plan: Assessment: 1. Acute kidney injury mostly prerenal secondary to sepsis improved with IV hydration. Creatinine was 2.24 on admission and is 0.76 today. Baseline creatinine 0.8 from April 2022. No hydronephrosis noted on kidney ultrasound. 2. Hypovolemic hyponatremia improved with IV hydration. Also component of poor solute intake. 3. Severe sepsis possibly from UTI. ID following. Blood culture positive for group B strep. 4. Altered mental status likely from sepsis. No acute infarct noted on MRI. Neurology following. Plan: Maintain IV hydration. Continue to hold diuretics. Avoid nephrotoxins. Continue to monitor renal function and urine output. EF preserved. No seizure activity noted on EEG. Patient received IV contrast for CTA on 06/22/2022 which showed no evidence of PE. No evidence of contrast-induced acute kidney injury. I will sign off. Please call with any questions or concerns.
[2022-06-24] MEDS: PANTOPRAZOLE 40 MG/10 ML VIAL IVP SCH ×2 (08:52→21:20)
[2022-06-24] MEDS: IPRATROPIUM-ALBUTEROL 3 ML NEB INHALATION SCH ×4 (09:07→20:17)
--- NOTE | 2022-06-24 10:01 | P.PN ---
Subjective Progress Note Date: 06/24/22 Principal diagnosis: Acute mental status changes On 06/24/2022 patient seen in follow-up in the intensive care unit. Patient is sedated, currently on Precedex at 0.5 mics per kilo per hour. He is on Precedex at 5 mg per hour. Lactated Ringer's at 75 ML per hour, remains sedated, very confused. No signs of any respiratory distress, he is on 4 L of oxygen per nasal cannula with pulse ox of 95%, his been afebrile, in sinus mechanism, rate is 79 BPM. His blood pressure is better controlled with Cleviprex infusion. It is currently 141/75. MRI of the brain was completed last night showing no evidence of a recent infarct, mild diffuse age-related cerebral atrophy and ch ronic small vessel ischemic changes. No abnormal enhancement was noted. Today's labs have been reviewed, white blood cell count is 20.0, hemoglobin is 12.7, INR is 1.4, sodium is 134, potassium is 4.8, chloride is 109, BUN is 65 creatinine 0.76. Last night's blood gas was also reviewed showing pO2 of 72, pCO2 of 32, and pH of 7.48. This was done on FiO2 of 32%. CTA chest a few days ago showed no evidence of pulmonary embolism, showed interstitial infiltrate and atelectasis, no suspicious pulmonary mass. EEG showed no focal slowing, epileptiform discharge or seizure. Echocardiogram showed EF of 60-65%. Blood culture showed strep agalactiae, group B. Follow-up blood cultures have shown no growth thus far. ID service is following, patient remains on cefazolin 2 g every 8 hours. Last night patient developed GI bleeding, and passed of a very large maroon-colored stool. Today's hemoglobin is 12.7 which is down from 14 from yesterday, platelet count is 141, INR is 1.4. GI service has been consulted for evaluation. Objective - Vital Signs Vital signs: Vital Signs Temp 98.6 F 06/24/22 00:00 Pulse 100 06/24/22 07:00 Resp 16 06/24/22 07:00 BP 141/75 06/24/22 07:00 Pulse Ox 95 06/24/22 06:00 FiO2 Intake & Output 06/23/22 06/24/22 06/24/22 18:59 06:59 18:59 Intake Total 2527.636 1070.571 113.916 Output Total 1190 1050 Balance 1337.636 20.571 113.916 Weight 104.3 kg Intake: IV 950 900 Acyclovir Sodium 1,500 mg 250 In Sodium Chloride 0.9% 250 ml @ 280 mls/hr IV Q8H [facility] Rx#:[id number] Ampicillin 250 75 LR 450 825 Intake, IV Titration 77.636 170.571 113.916 Amount Clevidipine Butyrate 25 25.767 41.333 mg In Empty Bag 1 bag @ 1 MG/HR 2 mls/hr IV .Q24H [facility] Rx#:[id number] Dexmedetomidine/0.9% NaCl 0 114.993 72.583 (Pmx) 400 mcg In Empty Bag 1 bag @ 0.2 MCG/KG/HR 5.2 mls/hr IV .[id number] [facility] Rx#:[id number] Heparin Sod,Pork in 0.45% 77.636 29.811 NaCl 25,000 unit In 0.45 % NaCl 1 250ml.bag @ 9.8 UNITS/KG/HR 9.996 mls/hr IV .Q24H [facility] Rx#: [id number] Oral 1500 Output: Urine 1190 1050 Other: Voiding Method Indwelling Catheter Indwelling Catheter # Bowel Movements 1 - Exam GENERAL EXAM: Sedated, 67-year-old white male, on 4 L of oxygen, comfortable in no apparent distress. HEAD: Normocephalic/atraumatic. EYES: Normal reaction of pupils, equal size. Conjunctiva pink, sclera white. NOSE: Clear with pink turbinates. THROAT: No erythema or exudates. NECK: No masses, no JVD, no thyroid enlargement, no adenopathy. CHEST: No chest wall deformity. Symmetrical expansion. LUNGS: Equal air entry with no crackles, wheeze, rhonchi or dullness. CVS: Regular rate and rhythm, normal S1 and S2, no gallops, no murmurs, no rubs ABDOMEN: Distended, tympanic to percussion, nontender. No hepatosplenomegaly, normal bowel sounds, no guarding or rigidity. EXTREMITIES: No clubbing, no edema, no cyanosis, 2+ pulses and upper and lower extremities. MUSCULOSKELETAL: Muscle strength and tone normal. SPINE: No scoliosis or deformity SKIN: No rashes CENTRAL NERVOUS SYSTEM: Sedated, withdraws to painful stimuli. No focal defi cits, tone is normal in all 4 extremities. - Labs CBC & Chem 7: 06/24/22 06:56 06/24/22 06:56 Labs: Abnormal Lab Results - Last 24 Hours (Table) 06/23/22 06/23/22 06/23/22 Range/Units 05:46 05:46 09:15 WBC (3.8-10.6) k/uL RBC (4.30-5.90) m/uL Hgb (13.0-17.5) gm/dL MCV (80.0-100.0) fL Plt Count (150-450) k/uL Neutrophils # (1.3-7.7) k/uL Monocytes # (0-1.0) k/uL PT 14.0 H (9.0-12.0) sec INR 1.3 H (<1.2) APTT (22.0-30.0) sec ABG pH (7.35-7.45) ABG pCO2 (35-45) mmHg ABG pO2 (83-108) mmHg ABG Total CO2 (19-24) mmol/L ABG O2 Saturation (94-97) % Sodium (137-145) mmol/L Chloride (98-107) mmol/L Carbon Dioxide (22-30) mmol/L BUN (9-20) mg/dL Creatinine (0.66-1.25) mg/dL Glucose (74-99) mg/dL POC Glucose (mg/dL) (70-110) mg/dL Hemoglobin A1c 6.4 H (0.0-6.0) % Total Protein (6.3-8.2) g/dL Albumin (3.5-5.0) g/dL Procalcitonin 1.72 H (0.02-0.09) ng/mL Crossmatch 06/23/22 06/23/22 06/23/22 Range/Units 12:05 17:04 17:51 WBC (3.8-10.6) k/uL RBC (4.30-5.90) m/uL Hgb (13.0-17.5) gm/dL MCV (80.0-100.0) fL Plt Count (150-450) k/uL Neutrophils # (1.3-7.7) k/uL Monocytes # (0-1.0) k/uL PT (9.0-12.0) sec INR (<1.2) APTT 33.7 H (22.0-30.0) sec ABG pH (7.35-7.45) ABG pCO2 (35-45) mmHg ABG pO2 (83-108) mmHg ABG Total CO2 (19-24) mmol/L ABG O2 Saturation (94-97) % Sodium (137-145) mmol/L Chloride (98-107) mmol/L Carbon Dioxide (22-30) mmol/L BUN (9-20) mg/dL Creatinine (0.66-1.25) mg/dL Glucose (74-99) mg/dL POC Glucose (mg/dL) 160 H 154 H (70-110) mg/dL Hemoglobin A1c (0.0-6.0) % Total Protein (6.3-8.2) g/dL Albumin (3.5-5.0) g/dL Procalcitonin (0.02-0.09) ng/mL Crossmatch 06/23/22 06/23/22 06/24/22 Range/Units 21:48 23:17 00:47 WBC (3.8-10.6) k/uL RBC (4.30-5.90) m/uL Hgb (13.0-17.5) gm/dL MCV (80.0-100.0) fL Plt Count (150-450) k/uL Neutrophils # (1.3-7.7) k/uL Monocytes # (0-1.0) k/uL PT (9.0-12.0) sec INR (<1.2) APTT 30.4 H (22.0-30.0) sec ABG pH (7.35-7.45) ABG pCO2 (35-45) mmHg ABG pO2 (83-108) mmHg ABG Total CO2 (19-24) mmol/L ABG O2 Saturation (94-97) % Sodium 136 L (137-145) mmol/L Chloride (98-107) mmol/L Carbon Dioxide 21 L (22-30) mmol/L BUN 53 H (9-20) mg/dL Creatinine 0.64 L (0.66-1.25) mg/dL Glucose 177 H (74-99) mg/dL POC Glucose (mg/dL) 137 H (70-110) mg/dL Hemoglobin A1c (0.0-6.0) % Total Protein (6.3-8.2) g/dL Albumin (3.5-5.0) g/dL Procalcitonin (0.02-0.09) ng/mL Crossmatch 06/24/22 06/24/22 06/24/22 Range/Units 00:47 00:57 01:36 WBC 23.2 H (3.8-10.6) k/uL RBC (4.30-5.90) m/uL Hgb (13.0-17.5) gm/dL MCV (80.0-100.0) fL Plt Count 149 L (150-450) k/uL Neutrophils # 18.1 H (1.3-7.7) k/uL Monocytes # 2.1 H (0-1.0) k/uL PT (9.0-12.0) sec INR (<1.2) APTT (22.0-30.0) sec ABG pH 7.48 H (7.35-7.45) ABG pCO2 32 L (35-45) mmHg ABG pO2 72 L (83-108) mmHg ABG Total CO2 25 H (19-24) mmol/L ABG O2 Saturation 97.5 H (94-97) % Sodium (137-145) mmol/L Chloride (98-107) mmol/L Carbon Dioxide (22-30) mmol/L BUN (9-20) mg/dL Creatinine (0.66-1.25) mg/dL Glucose (74-99) mg/dL POC Glucose (mg/dL) (70-110) mg/dL Hemoglobin A1c (0.0-6.0) % Total Protein (6.3-8.2) g/dL Albumin (3.5-5.0) g/dL Procalcitonin (0.02-0.09) ng/mL Crossmatch See Detail 06/24/22 06/24/22 06/24/22 Range/Units 06:52 06:56 06:56 WBC (3.8-10.6) k/uL RBC (4.30-5.90) m/uL Hgb (13.0-17.5) gm/dL MCV (80.0-100.0) fL Plt Count (150-450) k/uL Neutrophils # (1.3-7.7) k/uL Monocytes # (0-1.0) k/uL PT 14.5 H (9.0-12.0) sec INR 1.4 H (<1.2) APTT (22.0-30.0) sec ABG pH (7.35-7.45) ABG pCO2 (35-45) mmHg ABG pO2 (83-108) mmHg ABG Total CO2 (19-24) mmol/L ABG O2 Saturation (94-97) % Sodium 134 L (137-145) mmol/L Chloride 109 H (98-107) mmol/L Carbon Dioxide (22-30) mmol/L BUN 65 H (9-20) mg/dL Creatinine (0.66-1.25) mg/dL Glucose 212 H (74-99) mg/dL POC Glucose (mg/dL) 229 H (70-110) mg/dL Hemoglobin A1c (0.0-6.0) % Total Protein 5.8 L (6.3-8.2) g/dL Albumin 2.7 L (3.5-5.0) g/dL Procalcitonin (0.02-0.09) ng/mL Crossmatch 06/24/22 Range/Units 06:56 WBC 20.0 H (3.8-10.6) k/uL RBC 4.03 L (4.30-5.90) m/uL Hgb 12.7 L (13.0-17.5) gm/dL MCV 100.6 H (80.0-100.0) fL Plt Count 141 L (150-450) k/uL Neutrophils # 14.9 H (1.3-7.7) k/uL Monocytes # 2.0 H (0-1.0) k/uL PT (9.0-12.0) sec INR (<1.2) APTT (22.0-30.0) sec ABG pH (7.35-7.45) ABG pCO2 (35-45) mmHg ABG pO2 (83-108) mmHg ABG Total CO2 (19-24) mmol/L ABG O2 Saturation (94-97) % Sodium (137-145) mmol/L Chloride (98-107) mmol/L Carbon Dioxide (22-30) mmol/L BUN (9-20) mg/dL Creatinine (0.66-1.25) mg/dL Glucose (74-99) mg/dL POC Glucose (mg/dL) (70-110) mg/dL Hemoglobin A1c (0.0-6.0) % Total Protein (6.3-8.2) g/dL Albumin (3.5-5.0) g/dL Procalcitonin (0.02-0.09) ng/mL Crossmatch Microbiology - Last 24 Hours (Table) 06/23/22 06:02 Blood Culture - Preliminary Blood No Growth after 24 hours 06/22/22 02:08 Blood Culture Gram Stain - Preliminary Blood Blood Culture - Preliminary Strep agalactiae - (group b) Assessment and Plan Plan: Assessment: #1. Acute mental status changes, unknown etiology, related to sepsis #2. Bacteremia related to strep agalactiae, unknown source #3. Acute GI blood loss anemia, with passing maroon stools starting on 06/23/2022, GI service has been consulted #4. Acute kidney injury related to sepsis, improving #5. Hyponatremia, hypovolemic #6. Possible urinary tract infection #7. Multiple falls at home #8. History of opiate dependence #9. History of COPD/chronic bronchial asthma, unspecified #10. History of chronic back pain #11. History of anxiety #12. Hypertension #13. Hyperlipidemia Plan: Patient was seen and evaluated at the bedside Today's labs cultures, MRI of the brain reviewed Continue antibiotics per ID service recommendations Follow-up blood culture remains negative thus far Continue IV fluids Patient has developed GI bleeding last night, consult GI service Start Protonix 40 mg IV push twice daily Keep patient nothing by mouth Maintain aspiration precautions, continue close monitoring in intensive care unit I have personally seen and examined the patient, performed the documentation and the assessment and plan as written. Number of minutes spent on the visit: [15] Time with Patient: Less than 30
[2022-06-24] MEDS: IOPAMIDOL CONTRAST (ORAL USE) VIAL PO PRN ×2 (11:05→12:02)
[2022-06-24] MEDS: METOPROLOL SUCCINATE (ER) 25 MG TAB.ER.24H PO SCH (12:03)
[2022-06-24 12:06] LABS: Glucose,Whole Blood 204 mg/dL (70-110)
--- NOTE | 2022-06-24 12:40 | P.GSCN ---
History of Present Illness Consult date: 06/24/22 History of present illness: CHIEF COMPLAINT: Altered mental status changes HISTORY OF PRESENT ILLNESS: This is a 67-year-old male who was brought into the hospital due to altered mental status and falling at home. Per nursing staff patient takes narcotics at home and there was concern initially of accidental overdose. Also patient is being treated for possible sepsis. Patient initially admitted to 3 [facility] and required a transfer to the ICU due to increased confusion and being combative and agitated. He is currently requiring Precedex to help control his agitation. He had elevated troponins and was started on IV heparin. He was seen by cardiology service. Patient did develop a GI bleed yesterday. He started having stools. The IV heparin was discontinued. Per nursing staff there were 5-6 small black stools during the night and one maroon-colored stool. Patient did have one black stool this morning. Also during the night patient's abdomen became distended. He does report diffuse abdominal discomfort. No nausea or vomiting. He is on IV Protonix. Surgical consult placed for GI bleed and abdominal distention. Last colonoscopy was in February 2019 which revealed diverticulosis. Patient's blood pressure has been elevated and he is requiring cleviprex. Patient is poor historian. He is lethargic and on sedation. PAST MEDICAL HISTORY: Asthma, brain aneurysm status post coiling, hyperlipidemia, hypertension, hypothyroidism PAST SURGICAL HISTORY: Cholecystectomy MEDICATIONS: See list. ALLERGIES: See list. SOCIAL HISTORY: No illicit drug use. REVIEW OF SYSTEMS: CONSTITUTIONAL: Denies fever or chills. HEENT: Denies blurred vision, vision changes, or eye pain. Denies hemoptysis CARDIOVASCULAR: Denies chest pain or pressure. RESPIRATORY: No shortness of breath. GASTROINTESTINAL: See HPI for pertinent findings HEMATOLOGIC: Denies bleeding disorders. GENITOURINARY: Denies any blood in urine or increased urinary frequency. SKIN: Denies pruitis. Denies rash. PHYSICAL EXAM: VITAL SIGNS: Reviewed GENERAL: Well-developed in no acute distress. HEENT: No sclera icterus. Extraocular movements grossly intact. Moist buccal m ucosa. Head is atraumatic, normocephalic. No nasal drainage. ABDOMEN: Distended. Diffuse tenderness NEUROLOGIC: sedated. Able to open eyes. Able to say a few words LABORATORY DATA: WBC is 20 hemoglobin 14-12.7 platelets 141 INR 1.4 Sodium 134 potassium 4.8 creatinine 0.76 Lactic acid 3 and 1.7 Stool for occult blood positive 1 positive blood culture for strep agalactiae repeat blood culture IMAGING: CTA chest no PE. There are interstitial infiltrates and atelectasis. Likely inflammatory. No suspicious pulmonary mass. MRI of brain no evidence for a recent infarct. Mild diffuse age-related cerebral atrophy and chronic small vessel ischemic change Abdominal ultrasound no evidence for renal stone or obstruction ASSESSMENT: 1. Acute GI bleed with black stools and 1 maroon colored stool 2. Abdominal distention 3. Altered mental status 4. History of diverticulosis PLAN: -Check computed tomography scan abdomen and pelvis with oral and IV contrast due to new abdominal distention -Continue to hold anticoagulation -Continue IV Protonix -Continue to monitor for any signs or symptoms of GI bleed -Continue monitor hemoglobin -Continue ICU management -Further recommendations forthcoming per surgeon Thank you for this consultation Physician [employer] note has been reviewed by physician. Signing provider agrees with the documented findings, assessment, and plan of care. I have personally seen and examined the patient, reviewed the OIL REFINER /PAs history, exam and MDM and agree with the assessment and plan as written. Based on total visit time, I have performed more than 50% of the visit. As above: Patient with confusion, abdominal bloating, and bloody stools. On exam patient has mild distention but no significant tenderness. When asked patient states he has leg pain and back pain but denies abdominal pain. CAT scan was reviewed. CAT scan shows impressive inflammatory changes of the duodenum and proximal jejunum. Both SMA and SMV did not show obvious evidence of thrombosis to suggest ischemic vascular disease. Patient may have low flow ischemia from initial presentation as he was noted to have significant lactic acidosis initially. The patient does have CAT scan findings suggestive of hepatocellular disease and possible cirrhosis. Continue supportive care for now. Patient is already on antibiotics. No plans for endoscopy unless bleeding persists or increases. We'll place nasogastric tube to low intermittent suction for now. We'll follow with you. Past Medical History Past Medical History: Asthma, Cancer, CVA/TIA, GERD/Reflux, Hyperlipidemia, Hypertension, Thyroid Disorder Additional Past Medical History / Comment(s): Hx. of Brain Aneurysm, SKIN CANCER, CHRONIC NOSEBLEEDS History of Any Multi-Drug Resistant Organisms: None Reported Past Surgical History: Cholecystectomy, Orthopedic Surgery, Tonsillectomy Additional Past Surgical History / Comment(s): Knee surgery, Endovascular coiling for Brain Aneurysm.LESION REMOVED , SUSPENSION MICROLARYNGOSCOPY Past Anesthesia/Blood Transfusion Reactions: Previous Problems w/ Anesthesia Additional Past Anesthesia/Blood Transfusion Reaction / Comm: Woke up during surgery. Past Psychological History: Anxiety Smoking Status: Current every day smoker Past Alcohol Use History: None Reported Past Drug Use History: None Reported - Past Family History Mother Family Medical History: Cancer Additional Family Medical History / Comment(s): uterine cancer Father Family Medical History: Cancer, CVA/TIA Additional Family Medical History / Comment(s): skin cancer Sister(s) Family Medical History: Cancer Additional Family Medical History / Comment(s): skin cancer Medications and Allergies Home Medications Medication Instructions Recorded Confirmed Type Baclofen [Lioresal] 10 mg PO HS 02/26/19 06/21/22 History Ipratropium/Albuterol Sulfate 1 puff INHALATION RT-QID 02/26/19 06/21/22 History [Combivent Respimat Inhaler] Metoprolol Succinate [Toprol XL] 50 mg PO QAM 02/26/19 06/21/22 History Omeprazole [PriLOSEC] 20 mg PO AC-BRKFST 02/26/19 06/21/22 History HYDROcodone/APAP 10-325MG [[place] 1 tab PO Q6HR PRN 09/07/21 06/21/22 History 10-325] Levothyroxine Sodium [Synthroid] 88 mcg PO QAM 09/07/21 06/21/22 History Morphine Sulfate ER [Ms Contin] 15 mg PO HS 09/07/21 06/21/22 History Zolpidem Tartrate [Ambien Cr] 12.5 mg PO HS PRN 09/07/21 06/21/22 History lisinopriL [Prinivil] 20 mg PO QAM 09/07/21 06/21/22 History Albuterol Sulfate [Proventil Hfa] 1 - 2 puff INHALATION Q6HR PRN 06/21/22 06/21/22 History Aspirin EC [Ecotrin Low Dose] 81 mg PO DAILY 06/21/22 06/21/22 History Ergocalciferol [Vitamin D2 (1250 1,250 mcg PO Q7D 06/21/22 06/21/22 History Mcg = 90032 Iu)] Fluticasone Nasal [place] [Flonase 1 spray EA NOSTRIL DAILY 06/21/22 06/21/22 History Nasal [place]] Furosemide [Lasix] 20 mg PO DAILY 06/21/22 06/21/22 History Mirtazapine [Remeron] 15 mg PO HS 06/21/22 06/21/22 History hydrOXYzine HCL [Atarax] 10 mg PO HS 06/21/22 06/21/22 History traZODone HCL [Desyrel] 100 mg PO HS 06/21/22 06/21/22 History Allergies Allergy/AdvReac Type Severity Reaction Status Date / Time No Known Allergies Allergy Verified 06/21/22 11:22 Surgical - Exam Vital Signs Temp Pulse Resp BP Pulse Ox 97.3 F L 82 16 121/67 97 06/21/22 11:15 06/21/22 11:15 06/21/22 11:15 06/21/22 11:15 06/21/22 11:15 Results - Labs 06/24/22 06:56 06/24/22 06:56 Abnormal Lab Results - Last 24 Hours (Table) 06/23/22 06/23/22 06/23/22 Range/Units 05:46 09:15 12:05 WBC (3.8-10.6) k/uL RBC (4.30-5.90) m/uL Hgb (13.0-17.5) gm/dL MCV (80.0-100.0) fL Plt Count (150-450) k/uL Neutrophils # (1.3-7.7) k/uL Monocytes # (0-1.0) k/uL PT 14.0 H (9.0-12.0) sec INR 1.3 H (<1.2) APTT (22.0-30.0) sec ABG pH (7.35-7.45) ABG pCO2 (35-45) mmHg ABG pO2 (83-108) mmHg ABG Total CO2 (19-24) mmol/L ABG O2 Saturation (94-97) % Sodium (137-145) mmol/L Chloride (98-107) mmol/L Carbon Dioxide (22-30) mmol/L BUN (9-20) mg/dL Creatinine (0.66-1.25) mg/dL Glucose (74-99) mg/dL POC Glucose (mg/dL) 160 H (70-110) mg/dL Hemoglobin A1c 6.4 H (0.0-6.0) % Total Protein (6.3-8.2) g/dL Albumin (3.5-5.0) g/dL Crossmatch 06/23/22 06/23/22 06/23/22 Range/Units 17:04 17:51 21:48 WBC (3.8-10.6) k/uL RBC (4.30-5.90) m/uL Hgb (13.0-17.5) gm/dL MCV (80.0-100.0) fL Plt Count (150-450) k/uL Neutrophils # (1.3-7.7) k/uL Monocytes # (0-1.0) k/uL PT (9.0-12.0) sec INR (<1.2) APTT 33.7 H (22.0-30.0) sec ABG pH (7.35-7.45) ABG pCO2 (35-45) mmHg ABG pO2 (83-108) mmHg ABG Total CO2 (19-24) mmol/L ABG O2 Saturation (94-97) % Sodium (137-145) mmol/L Chloride (98-107) mmol/L Carbon Dioxide (22-30) mmol/L BUN (9-20) mg/dL Creatinine (0.66-1.25) mg/dL Glucose (74-99) mg/dL POC Glucose (mg/dL) 154 H 137 H (70-110) mg/dL Hemoglobin A1c (0.0-6.0) % Total Protein (6.3-8.2) g/dL Albumin (3.5-5.0) g/dL Crossmatch 06/23/22 06/24/22 06/24/22 Range/Units 23:17 00:47 00:47 WBC 23.2 H (3.8-10.6) k/uL RBC (4.30-5.90) m/uL Hgb (13.0-17.5) gm/dL MCV (80.0-100.0) fL Plt Count 149 L (150-450) k/uL Neutrophils # 18.1 H (1.3-7.7) k/uL Monocytes # 2.1 H (0-1.0) k/uL PT (9.0-12.0) sec INR (<1.2) APTT 30.4 H (22.0-30.0) sec ABG pH (7.35-7.45) ABG pCO2 (35-45) mmHg ABG pO2 (83-108) mmHg ABG Total CO2 (19-24) mmol/L ABG O2 Saturation (94-97) % Sodium 136 L (137-145) mmol/L Chloride (98-107) mmol/L Carbon Dioxide 21 L (22-30) mmol/L BUN 53 H (9-20) mg/dL Creatinine 0.64 L (0.66-1.25) mg/dL Glucose 177 H (74-99) mg/dL POC Glucose (mg/dL) (70-110) mg/dL Hemoglobin A1c (0.0-6.0) % Total Protein (6.3-8.2) g/dL Albumin (3.5-5.0) g/dL Crossmatch 06/24/22 06/24/22 06/24/22 Range/Units 00:57 01:36 06:52 WBC (3.8-10.6) k/uL RBC (4.30-5.90) m/uL Hgb (13.0-17.5) gm/dL MCV (80.0-100.0) fL Plt Count (150-450) k/uL Neutrophils # (1.3-7.7) k/uL Monocytes # (0-1.0) k/uL PT (9.0-12.0) sec INR (<1.2) APTT (22.0-30.0) sec ABG pH 7.48 H (7.35-7.45) ABG pCO2 32 L (35-45) mmHg ABG pO2 72 L (83-108) mmHg ABG Total CO2 25 H (19-24) mmol/L ABG O2 Saturation 97.5 H (94-97) % Sodium (137-145) mmol/L Chloride (98-107) mmol/L Carbon Dioxide (22-30) mmol/L BUN (9-20) mg/dL Creatinine (0.66-1.25) mg/dL Glucose (74-99) mg/dL POC Glucose (mg/dL) 229 H (70-110) mg/dL Hemoglobin A1c (0.0-6.0) % Total Protein (6.3-8.2) g/dL Albumin (3.5-5.0) g/dL Crossmatch See Detail 06/24/22 06/24/22 06/24/22 Range/Units 06:56 06:56 06:56 WBC 20.0 H (3.8-10.6) k/uL RBC 4.03 L (4.30-5.90) m/uL Hgb 12.7 L (13.0-17.5) gm/dL MCV 100.6 H (80.0-100.0) fL Plt Count 141 L (150-450) k/uL Neutrophils # 14.9 H (1.3-7.7) k/uL Monocytes # 2.0 H (0-1.0) k/uL PT 14.5 H (9.0-12.0) sec INR 1.4 H (<1.2) APTT (22.0-30.0) sec ABG pH (7.35-7.45) ABG pCO2 (35-45) mmHg ABG pO2 (83-108) mmHg ABG Total CO2 (19-24) mmol/L ABG O2 Saturation (94-97) % Sodium 134 L (137-145) mmol/L Chloride 109 H (98-107) mmol/L Carbon Dioxide (22-30) mmol/L BUN 65 H (9-20) mg/dL Creatinine (0.66-1.25) mg/dL Glucose 212 H (74-99) mg/dL POC Glucose (mg/dL) (70-110) mg/dL Hemoglobin A1c (0.0-6.0) % Total Protein 5.8 L (6.3-8.2) g/dL Albumin 2.7 L (3.5-5.0) g/dL Crossmatch Microbiology - Last 24 Hours (Table) 06/23/22 06:02 Blood Culture - Preliminary Blood No Growth after 24 hours 06/22/22 02:08 Blood Culture Gram Stain - Preliminary Blood Blood Culture - Preliminary Strep agalactiae - (group b) Diabetes panel 06/23/22 06/24/22 06/24/22 Range/Units 05:46 00:47 06:56 Sodium 136 L 134 L (137-145) mmol/L Potassium 4.6 4.8 (3.5-5.1) mmol/L Chloride 107 109 H (98-107) mmol/L Carbon Dioxide 21 L 23 (22-30) mmol/L BUN 53 H 65 H (9-20) mg/dL Creatinine 0.64 L 0.76 (0.66-1.25) mg/dL Glucose 177 H 212 H (74-99) mg/dL Hemoglobin A1c 6.4 H (0.0-6.0) % Calcium 9.0 8.7 (8.4-10.2) mg/dL AST 56 (17-59) U/L ALT 47 (4-49) U/L Alkaline Phosphatase 72 (38-126) U/L Total Protein 5.8 L (6.3-8.2) g/dL Albumin 2.7 L (3.5-5.0) g/dL Calcium panel 06/24/22 06/24/22 Range/Units 00:47 06:56 Calcium 9.0 8.7 (8.4-10.2) mg/dL Albumin 2.7 L (3.5-5.0) g/dL Pituitary panel 06/24/22 06/24/22 Range/Units 00:47 06:56 Sodium 136 L 134 L (137-145) mmol/L Potassium 4.6 4.8 (3.5-5.1) mmol/L Chloride 107 109 H (98-107) mmol/L Carbon Dioxide 21 L 23 (22-30) mmol/L BUN 53 H 65 H (9-20) mg/dL Creatinine 0.64 L 0.76 (0.66-1.25) mg/dL Glucose 177 H 212 H (74-99) mg/dL Calcium 9.0 8.7 (8.4-10.2) mg/dL Adrenal panel 06/24/22 06/24/22 Range/Units 00:47 06:56 Sodium 136 L 134 L (137-145) mmol/L Potassium 4.6 4.8 (3.5-5.1) mmol/L Chloride 107 109 H (98-107) mmol/L Carbon Dioxide 21 L 23 (22-30) mmol/L BUN 53 H 65 H (9-20) mg/dL Creatinine 0.64 L 0.76 (0.66-1.25) mg/dL Glucose 177 H 212 H (74-99) mg/dL Calcium 9.0 8.7 (8.4-10.2) mg/dL Total Bilirubin 0.6 (0.2-1.3) mg/dL AST 56 (17-59) U/L ALT 47 (4-49) U/L Alkaline Phosphatase 72 (38-126) U/L Total Protein 5.8 L (6.3-8.2) g/dL Albumin 2.7 L (3.5-5.0) g/dL
--- NOTE | 2022-06-24 12:55 | CT ---
EXAMINATION TYPE: CT abdomen pelvis w con CT DLP: 1605.5 mGycm, Automated exposure control for dose reduction was used. DATE OF EXAM: 06/24/2022 12:44 PM COMPARISON: 06/22/2022 CT chest CLINICAL INDICATION:Male, 67 years old with history of abdominal distention, GIB; Abdominal distentio n, GIB TECHNIQUE: Axial CT of the abdomen and pelvis. Sagittal and coronal reformats were created on a [employer] workstation. Contrast used:100 ML mL of Isovue 300 with IV Contrast, Oral contrast used: with Oral Contrast FINDINGS: LOWER CHEST: Unremarkable ABDOMEN LIVER: Nodular contour to liver. No masses are identified. GALLBLADDER AND BILE DUCTS: The gallbladder is surgically absent. PANCREAS: None SPLEEN: Enlarged for size measuring up to 17.4 cm. ADRENAL GLANDS: Unremarkable. KIDNEYS AND URETERS: No evidence of hydronephrosis or renal calculus. The ureters are unremarkable. PELVIS BLADDER: Nondistended with Russo catheter in place. REPRODUCTIVE: Unremarkable. ABDOMEN & PELVIS STOMACH AND BOWEL: There is edematous haywrad throughout the left upper quadrant small bowel 8 mm invol ving the duodenum, jejunum. The gastric lumen is distended. There is relatively nondistended colon an d terminal ileum. No definitive transition point is identified. There is severe scattered clonic dive rticula present PERITONEUM: No evidence of pneumoperitoneum. Trace free fluid throughout the abdomen. VASCULATURE: No evidence of aortic aneurysm. MUSCULOSKELETAL: No acute osseous abnormalities LYMPH NODES: No gross evidence for lymphadenopathy. SOFT TISSUE/ABDOMINAL WALL: Unremarkable IMPRESSION: 1. Duodenitis/enteritis involving the jejunum and duodenum. The terminal ileum and colon are relativ dariela nondistended. There is minimal amount of stool within the colon. If there is concern for small monty wel obstruction consider getting dedicated small bowel follow up abdominal radiographs to follow the oral contrast on this exam to ensure makes it to the colon. 2. Nodular liver, ascites and hepatomegaly represent hepatic cirrhosis with sequela of portal hypert ension.
--- NOTE | 2022-06-24 14:04 | CDI ---
Documentation Clarification Form Date: 06/24/2022 01:35:01 PM From: Fariha Anglin RN CCDS Admit Date: 06/21/2022 01:29:00 PM Patient Name: Ag Souza Visit Number: [id number] Discharge Date: ATTENTION: The Clinical Documentation Specialists (CDI) and [facility] Coding Staff appreciate your assistance in clarifying documentation. Please respond to the clarification below the line at the bottom and electronically sign. The CDI & [facility] Coding staff will review the response and follow-up if needed. Please note: Queries are made part of the Legal Health Record. If you have any questions, please contact the author of this message via ITS. Dr. Carlos Pop Sepsis is documented Neurology progress note, 06/23, but is not noted in subsequent documentation. Clarification is requested. History/Risk Factors: 67-year-old male presents to the ED via EMS for multiple falls at home with mental status changes and poor responsiveness. Medical history: Asthma, Cancer, HTN and DJD. H&P, 06/21. Clinical Indicators: 06/23, Neurology progress note: Encephalopathy due to sepsis (Strep agalactiae group B). 06/21, VVS: B/P 121/67; HR 82; Temp 97.3 F Axillary; RR 16; SpO2 97% 3L 06/21, Labs: Wbc 23.2; Plt Count 98; Neutrophils 20.8 06/22, Blood cultures: Strep agalactiae (Group b) Treatment: 06/21 0.9NS 500cc Bolus x 1; 06/22 Ceftriaxone 1gm IVPB x 1; 06/22 Vancomycin 1,750 mg IVPB d/c 06/23; 06/22 Ampicillin 3gm IVPB Q6HR d/c 06/23; 06/24 Clevidipine 25mg IVPB Q24H MAURO. Please clarify if the Sepsis is: [ xxxx ] Sepsis confirmed, remains under treatment [ ] Sepsis confirmed, resolved [ ] Sepsis ruled out [ ] Other condition, please specify [ ] Unable to determine (Template Last Revised: January 2021) MTDD
--- NOTE | 2022-06-24 16:02 | P.PN ---
Subjective Progress Note Date: 06/24/22 The patient is seen at bedside and per nurse his mentation is improving. As stated yesterday patient has refused Lumbar Puncture. I.D. did not feel this was meningoencephalitis as well and stopped Acylovir. It seems the patient has acute GI bleed with black stools. And had abdominal distended abdomen and General surgery is on board. Objective - Vital Signs Vital signs: Vital Signs Temp 98.0 F 06/24/22 08:00 Pulse 87 06/24/22 14:00 Resp 25 H 06/24/22 14:00 BP 131/88 06/24/22 14:00 Pulse Ox 95 06/24/22 14:00 FiO2 Intake & Output 06/23/22 06/24/22 06/24/22 18:59 06:59 18:59 Intake Total 2527.636 1070.571 663.916 Output Total 1190 1050 575 Balance 1337.636 20.571 88.916 Weight 104.3 kg Intake: IV 950 900 450 Acyclovir Sodium 1,500 mg 250 In Sodium Chloride 0.9% 250 ml @ 280 mls/hr IV Q8H MA[facility]O Rx#:[id number] Ampicillin 250 75 LR 450 825 450 Intake, IV Titration 77.636 170.571 213.916 Amount Clevidipine Butyrate 25 25.767 91.333 mg In Empty Bag 1 bag @ 1 MG/HR 2 mls/hr IV .Q24H MA[facility]O Rx#:[id number] Dexmedetomidine/0.9% NaCl 0 114.993 72.583 (Pmx) 400 mcg In Empty Bag 1 bag @ 0.2 MCG/KG/HR 5.2 mls/hr IV .[id number] MA[facility]O Rx#:[id number] Heparin Sod,Pork in 0.45% 77.636 29.811 NaCl 25,000 unit In 0.45 % NaCl 1 250ml.bag @ 9.8 UNITS/KG/HR 9.996 mls/hr IV .Q24H [facility]O Rx#: [id number] ceFAZolin 2 gm In Sodium 50 Chloride 0.9% 50 ml @ 100 mls/hr IVPB Q8HR MA[facility]O Rx# :[id number] Oral 1500 Output: Urine 1190 1050 575 Other: Voiding Method Indwelling Catheter Indwelling Catheter Indwelling Catheter # Bowel Movements 1 - Exam GENERAL: The patient is lying in bed and in mild acute distress. HENT: Had supple neck but had mild pain to flexion (stated chronic). ABDOMEN: Had distention of abdomen. Has tender to touch throughout. NEUROLOGICAL: Higher mental function: The patient is minimally drowsy but awakeable to voice. Is oriented to self, place. He correctly stated the year. He was able to name watch. He is following simple commands. No aphasia. Cranial nerves: Visual field are full to confrontation throughout. EOM intact and no nystagmus. No facial weakness. No dysarthria. Motor: The strength is lifting bilateral uppers above gravity and no focality. Regarding the lowers he would only wiggle his tongues. No jerking of any extremities. Sensation: Normal to touch. Some of the workup during this hospital visit consisted of: Urinalysis is a the nitrate is negative, leukocyte esterase negative, urine white blood cells 14 a bacteria is rare and it doesn't seem like urinary tract infection for my opinion Urine drug screen is positive for opiates otherwise versus nondetected and the serum alcohol was less than 10 Coronavirus PCR not detected. Blood culture is strep agalactiase CT of the head is reported as no acute intracranial process. I personally revie wed the CT of the head and I agree with the report CT cervical spine was reported as no evidence of cervical spine fracture. Mild Multiple level degenerative disc disease with mild spinal canal and n euroforaminal stenosis at C5-C6. COPD changes. Atherosclerosis of the carotid bifurcation Routine EEG is abnormal. The back was suggestive of mild to moderate encephalopathy. Otherwise there is no focal slowing, perform discharges or seizure in the EEG CT abdomen and pelvis is reported as delayed denied diabetes mellitus/enteritis involving the jejunum and duodenum. The terminal ileum and colon are relatively nondistended. There is minimal amount of stool within the colon. If there is concern for small bowel obstructive concern getting dedicated small bowel follow up abdominal radiograph the follow-up oral contrast. Nodular liver, a sideways and hepatomegaly represent hepatic cirrhosis with sequela of a portal hypertension - Labs CBC & Chem 7: 06/24/22 06:56 06/24/22 06:56 Labs: Abnormal Lab Results - Last 24 Hours (Table) 06/23/22 06/23/22 06/23/22 Range/Units 17:04 17:51 21:48 WBC (3.8-10.6) k/uL RBC (4.30-5.90) m/uL Hgb (13.0-17.5) gm/dL MCV (80.0-100.0) fL Plt Count (150-450) k/uL Neutrophils # (1.3-7.7) k/uL Monocytes # (0-1.0) k/uL PT (9.0-12.0) sec INR (<1.2) APTT 33.7 H (22.0-30.0) sec ABG pH (7.35-7.45) ABG pCO2 (35-45) mmHg ABG pO2 (83-108) mmHg ABG Total CO2 (19-24) mmol/L ABG O2 Saturation (94-97) % Sodium (137-145) mmol/L Chloride (98-107) mmol/L Carbon Dioxide (22-30) mmol/L BUN (9-20) mg/dL Creatinine (0.66-1.25) mg/dL Glucose (74-99) mg/dL POC Glucose (mg/dL) 154 H 137 H (70-110) mg/dL Total Protein (6.3-8.2) g/dL Albumin (3.5-5.0) g/dL Crossmatch 06/23/22 06/24/22 06/24/22 Range/Units 23:17 00:47 00:47 WBC 23.2 H (3.8-10.6) k/uL RBC (4.30-5.90) m/uL Hgb (13.0-17.5) gm/dL MCV (80.0-100.0) fL Plt Count 149 L (150-450) k/uL Neutrophils # 18.1 H (1.3-7.7) k/uL Monocytes # 2.1 H (0-1.0) k/uL PT (9.0-12.0) sec INR (<1.2) APTT 30.4 H (22.0-30.0) sec ABG pH (7.35-7.45) ABG pCO2 (35-45) mmHg ABG pO2 (83-108) mmHg ABG Total CO2 (19-24) mmol/L ABG O2 Saturation (94-97) % Sodium 136 L (137-145) mmol/L Chloride (98-107) mmol/L Carbon Dioxide 21 L (22-30) mmol/L BUN 53 H (9-20) mg/dL Creatinine 0.64 L (0.66-1.25) mg/dL Glucose 177 H (74-99) mg/dL POC Glucose (mg/dL) (70-110) mg/dL Total Protein (6.3-8.2) g/dL Albumin (3.5-5.0) g/dL Crossmatch 06/24/22 06/24/22 06/24/22 Range/Units 00:57 01:36 06:52 WBC (3.8-10.6) k/uL RBC (4.30-5.90) m/uL Hgb (13.0-17.5) gm/dL MCV (80.0-100.0) fL Plt Count (150-450) k/uL Neutrophils # (1.3-7.7) k/uL Monocytes # (0-1.0) k/uL PT (9.0-12.0) sec INR (<1.2) APTT (22.0-30.0) sec ABG pH 7.48 H (7.35-7.45) ABG pCO2 32 L (35-45) mmHg ABG pO2 72 L (83-108) mmHg ABG Total CO2 25 H (19-24) mmol/L ABG O2 Saturation 97.5 H (94-97) % Sodium (137-145) mmol/L Chloride (98-107) mmol/L Carbon Dioxide (22-30) mmol/L BUN (9-20) mg/dL Creatinine (0.66-1.25) mg/dL Glucose (74-99) mg/dL POC Glucose (mg/dL) 229 H (70-110) mg/dL Total Protein (6.3-8.2) g/dL Albumin (3.5-5.0) g/dL Crossmatch See Detail 06/24/22 06/24/22 06/24/22 Range/Units 06:56 06:56 06:56 WBC 20.0 H (3.8-10.6) k/uL RBC 4.03 L (4.30-5.90) m/uL Hgb 12.7 L (13.0-17.5) gm/dL MCV 100.6 H (80.0-100.0) fL Plt Count 141 L (150-450) k/uL Neutrophils # 14.9 H (1.3-7.7) k/uL Monocytes # 2.0 H (0-1.0) k/uL PT 14.5 H (9.0-12.0) sec INR 1.4 H (<1.2) APTT (22.0-30.0) sec ABG pH (7.35-7.45) ABG pCO2 (35-45) mmHg ABG pO2 (83-108) mmHg ABG Total CO2 (19-24) mmol/L ABG O2 Saturation (94-97) % Sodium 134 L (137-145) mmol/L Chloride 109 H (98-107) mmol/L Carbon Dioxide (22-30) mmol/L BUN 65 H (9-20) mg/dL Creatinine (0.66-1.25) mg/dL Glucose 212 H (74-99) mg/dL POC Glucose (mg/dL) (70-110) mg/dL Total Protein 5.8 L (6.3-8.2) g/dL Albumin 2.7 L (3.5-5.0) g/dL Crossmatch 06/24/22 Range/Units 12:05 WBC (3.8-10.6) k/uL RBC (4.30-5.90) m/uL Hgb (13.0-17.5) gm/dL MCV (80.0-100.0) fL Plt Count (150-450) k/uL Neutrophils # (1.3-7.7) k/uL Monocytes # (0-1.0) k/uL PT (9.0-12.0) sec INR (<1.2) APTT (22.0-30.0) sec ABG pH (7.35-7.45) ABG pCO2 (35-45) mmHg ABG pO2 (83-108) mmHg ABG Total CO2 (19-24) mmol/L ABG O2 Saturation (94-97) % Sodium (137-145) mmol/L Chloride (98-107) mmol/L Carbon Dioxide (22-30) mmol/L BUN (9-20) mg/dL Creatinine (0.66-1.25) mg/dL Glucose (74-99) mg/dL POC Glucose (mg/dL) 204 H (70-110) mg/dL Total Protein (6.3-8.2) g/dL Albumin (3.5-5.0) g/dL Crossmatch Microbiology - Last 24 Hours (Table) 06/22/22 02:08 Blood Culture Gram Stain - Final Blood Blood Culture - Final Strep agalactiae - (group b) 06/23/22 06:02 Blood Culture - Preliminary Blood No Growth after 24 hours Assessment and Plan Assessment: Encephalopathy due to sepsis (Strep agalactiae group B) and source seems from abdomen. Had duodenitis/enteritis. Does not appear encephalitis since patient mentation improving without antiviral medication and his leukocytosis is trending down; and it is neutrophilic predominate which in viral infection would be more lymphocytic predominate. Abdominal GI bleed distention on imaging has duodenitis/enteritis Acute kidney injury--resolved History of brain aneurysm s/p coil History of CVA Hypothyroidism History of hypertension and during this hospital visit is mildly to moderately hypertensive History of chronic low back pain History of chronic neck pain. History of epistaxis History of diverticulosis Plan: MRI Brain w/ and w/o: No MRI evidence for a recent infarct. Mild diffuse age- related cerebral atrophy and chronic small vessel ischemic change is present. No abnormal enhancement noted. I personally reviewed MRI and agree with report. Please avoid any sedation or narcotic that would affect patient's mentation. Infection disease team is on board General surgery team is on board. Nephrology is on board Will defer the rest of medical management to primary and ICU team. The plan is discussed with patient and ICU team. Otherwise no additional work-up. Please notify neurology team if any further concerns. Chapincito Sanderson M.D. Neuro-Hospitalist Time with Patient: Less than 30
--- NOTE | 2022-06-24 16:32 | XR ---
EXAMINATION TYPE: XR chest 1V portable DATE OF EXAM: 06/24/2022 4:24 PM COMPARISON: Chest radiographs from TECHNIQUE: XR chest 1V portable Portable AP radiograph of the chest. CLINICAL INDICATION:Male, 67 years old with history of Confirm NGT placement; FINDINGS: Lungs/Pleura: There is no evidence of pleural effusion, focal consolidation, or pneumothorax. Pulmonary vascularity: Unremarkable. Heart/mediastinum: Cardiomediastinal silhouette is unremarkable. Musculoskeletal: No acute osseous pathology. Other findings: None Lines/Tubes: Nasogastric tube with its distal tip and side-port projecting under the diaphragm. The side port proj ects near the gastroesophageal junction. IMPRESSION: Nasogastric tube side-port projecting near the gastroesophageal junction consider advancement of 8.0 cm for optimal placement.
[2022-06-24 17:29] LABS: Glucose,Whole Blood 184 mg/dL (70-110)
--- NOTE | 2022-06-24 17:36 | XR ---
EXAMINATION TYPE: XR chest 1V portable DATE OF EXAM: 06/24/2022 COMPARISON: 06/24/2022 HISTORY: Check tube placement TECHNIQUE: FINDINGS: NG tube is over the body of the stomach. There is no heart failure. There is some coarsenin g of the interstitial markings in the lower lung amado. Heart size is normal. There are chest leads. IMPRESSION: NG tube is in the stomach. There is increased mild interstitial density in the lower lung amado without change compared to exam one hour ago.
[2022-06-24 21:19] LABS: Glucose,Whole Blood 153 mg/dL (70-110)
[2022-06-25] MEDS: LACTATED RINGERS 1,000 ML IV SCH ×2 (00:21→08:13)
[2022-06-25] MEDS: ACETAMINOPHEN IV (For NPO) 1,000 MG in EMPTY BAG 1 BAG IVPB PRN (00:51)
[2022-06-25] MEDS ORDERED: ACETAMINOPHEN IV (For NPO) 1,000 MG in EMPTY BAG 1 BAG IVPB SCH (01:00)
[2022-06-25 06:55] LABS: Glucose,Whole Blood 158 mg/dL (70-110)
[2022-06-25] MEDS: INSULIN ASPART (NovoLOG) 100 UNIT/ML VIAL SQ SCH ×4 (06:57→20:58)
[2022-06-25 07:33] LABS: HCT 36.7 % (39.0-53.0); HGB 11.9 gm/dL (13.0-17.5); MCH 31.8 pg (25.0-35.0); MCHC 32.3 g/dL (31.0-37.0); MCV 98.5 fL (80.0-100.0); Mean Platelet Volume 9.6; Platelet Count 118 k/uL (150-450); RBC 3.72 m/uL (4.30-5.90); RDW 13.1 % (11.5-15.5); WBC 16.5 k/uL (3.8-10.6)
[2022-06-25 07:42] LABS: African American GFR (CKD) >90 (>60 ml/min/1.73 sqM); Anion Gap 1 mmol/L; Blood Urea Nitrogen 53 mg/dL (9-20); Calcium 8.5 mg/dL (8.4-10.2); Carbon Dioxide 28 mmol/L (22-30); Chloride 110 mmol/L (98-107); Glucose 141 mg/dL (74-99); Non-African American GFR(CKD) >90 (>60 ml/min/1.73 sqM); Potassium 4.4 mmol/L (3.5-5.1); Sodium 139 mmol/L (137-145)
[2022-06-25] MEDS: IPRATROPIUM-ALBUTEROL 3 ML NEB INHALATION SCH ×5 (08:06→19:51)
[2022-06-25] MEDS: PANTOPRAZOLE 40 MG/10 ML VIAL IVP SCH ×2 (08:13→20:42)
[2022-06-25] MEDS: METOPROLOL SUCCINATE (ER) 25 MG TAB.ER.24H PO SCH (08:14)
[2022-06-25] MEDS ORDERED: HALOPERIDOL LACTATE 5 MG/ML 1 ML VIAL IM PRN (08:55)
--- NOTE | 2022-06-25 09:07 | P.PN ---
Subjective Progress Note Date: 06/24/22 Ag Souza, is a 67-year-old male who presented to [facility] emergency room after having a multiple falls at home, has significant mental status changes with somnolence and poor responsiveness, history per his , over the last 24 hours patient has been not feeling well, he fell twice at home, on the second time she was not able to wake him up and get him up from the floor through the bed, she called EMS and he was brought into emergency room. He was evaluated in the emergency room vital examination on presentation revealed a temperature of 97.3 pulse 82 respiration 16 blood pressure 121/67 pulse ox 97% on room air Laboratory data revealed a white blood count of 23.2 hemoglobin 14.4 platelet count 98,000 sodium 129 potassium 4.9 chloride 96 CO2 25 BUN 51 creatinine 2.24 troponin level was 0.02 COVID-19 testing was negative Testing in the emergency room revealed chest x-ray done in the emergency room did not reveal significant abnormality. Patient has a known history of degenerative disc disease with chronic pain maintained on narcotics for pain management he was given Narcan in the emergency room which led to improvement in his mental status. Patient was admitted to medical floor for further evaluation and treatment. On 06/22/2022 patient was seen and examined on the telemetry floor he is still somnolent, agitated, pulling on his IV line, he was started through the night on IV Ativan, vital examination reveals a temperature of 98.4 pulse 132 respiration 24 blood pressure 172/91 pulse ox 96% on 2 L nasal cannula, white blood count is 21.9 hemoglobin 14.8 platelet count 118 d-dimer was elevated at 2.12 at this time will start patient on IV heparin high-intensity for possible pulmonary embolism, his kidney function is still elevated, will defer computed tomography scan this time, he is not cooperative to proceed with VQ scan, will continue with IV fluid, nephrology consultation and infectious disease consultation were requested. On 06/23/2022 patient was seen and examined in the ICU he is more alert and oriented today vital exam reveals a temperature of 98.2 pulse 86 respiration 23 blood pressure 138/79 pulse ox 93% on 2 L nasal cannula white blood count is down to 15.4 hemoglobin 13.2 platelet count 125 kidney function improved with BUN at 66 and creatinine at 0.89 kidney ultrasound was done and revealed no evidence of renal stones or obstruction, CT angiogram of the chest was done and there was no evidence of pulmonary embolism, blood culture were positive for Streptococcus group b , patient is currently maintained on IV Unasyn, IV vanc omycin and IV acyclovir, cardiology, pulmonary, nephrology, neurology and infectious disease are following On 06/24/2022 patient was seen and examined in the ICU he is more alert and oriented today kidney ultrasound was done and revealed no evidence of renal stones or obstruction, CT angiogram of the chest was done and there was no evidence of pulmonary embolism, blood culture were positive for Streptococcus group b , patient is currently maintained on IV Unasyn, IV vancomycin and IV acyclovir, cardiology, pulmonary, nephrology, neurology and infectious disease are following. Patient had a maroon colored stools through the night, GI consultation is not available this week, surgical consultation was requested for evaluation for possible GI bleed Objective - Vital Signs Vital signs: Vital Signs Temp 98.6 F 06/24/22 00:00 Pulse 100 06/24/22 07:00 Resp 16 06/24/22 07:00 BP 141/75 06/24/22 07:00 Pulse Ox 95 06/24/22 06:00 FiO2 Intake & Output 06/23/22 06/24/22 06/24/22 18:59 06:59 18:59 Intake Total 2527.636 1070.571 113.916 Output Total 1190 1050 Balance 1337.636 20.571 113.916 Weight 104.3 kg Intake: IV 950 900 Acyclovir Sodium 1,500 mg 250 In Sodium Chloride 0.9% 250 ml @ 280 mls/hr IV Q8H [facility] Rx#:[id number] Ampicillin 250 75 LR 450 825 Intake, IV Titration 77.636 170.571 113.916 Amount Clevidipine Butyrate 25 25.767 41.333 mg In Empty Bag 1 bag @ 1 MG/HR 2 mls/hr IV .Q24H [facility] Rx#:[id number] Dexmedetomidine/0.9% NaCl 0 114.993 72.583 (Pmx) 400 mcg In Empty Bag 1 bag @ 0.2 MCG/KG/HR 5.2 mls/hr IV .[id number] [facility] Rx#:[id number] Heparin Sod,Pork in 0.45% 77.636 29.811 NaCl 25,000 unit In 0.45 % NaCl 1 250ml.bag @ 9.8 UNITS/KG/HR 9.996 mls/hr IV .Q24H [facility] Rx#: [id number] Oral 1500 Output: Urine 1190 1050 Other: Voiding Method Indwelling Catheter Indwelling Catheter # Bowel Movements 1 - Exam In general patient is alert and responsive in no apparent distress HEENT head normocephalic and atraumatic Neck is supple no JVD no goiter no lymphadenopathy no carotid bruit Chest examination is clear to auscultation no crackles no wheezing Cardiac exam reveals regular heart sounds S1 and S2 no gallops no murmurs Abdomen is soft nontender no organomegaly with normal bowel sounds Extremity exam reveals no edema no cyanosis or clubbing Neurological examination reveals no gross focal deficits - Labs CBC & Chem 7: 06/24/22 06:56 06/24/22 06:56 Labs: Abnormal Lab Results - Last 24 Hours (Table) 06/23/22 06/23/22 06/23/22 Range/Units 05:46 05:46 09:15 WBC (3.8-10.6) k/uL RBC (4.30-5.90) m/uL Hgb (13.0-17.5) gm/dL MCV (80.0-100.0) fL Plt Count (150-450) k/uL Neutrophils # (1.3-7.7) k/uL Monocytes # (0-1.0) k/uL PT 14.0 H (9.0-12.0) sec INR 1.3 H (<1.2) APTT (22.0-30.0) sec ABG pH (7.35-7.45) ABG pCO2 (35-45) mmHg ABG pO2 (83-108) mmHg ABG Total CO2 (19-24) mmol/L ABG O2 Saturation (94-97) % Sodium (137-145) mmol/L Chloride (98-107) mmol/L Carbon Dioxide (22-30) mmol/L BUN (9-20) mg/dL Creatinine (0.66-1.25) mg/dL Glucose (74-99) mg/dL POC Glucose (mg/dL) (70-110) mg/dL Hemoglobin A1c 6.4 H (0.0-6.0) % Total Protein (6.3-8.2) g/dL Albumin (3.5-5.0) g/dL Procalcitonin 1.72 H (0.02-0.09) ng/mL Crossmatch 06/23/22 06/23/22 06/23/22 Range/Units 12:05 17:04 17:51 WBC (3.8-10.6) k/uL RBC (4.30-5.90) m/uL Hgb (13.0-17.5) gm/dL MCV (80.0-100.0) fL Plt Count (150-450) k/uL Neutrophils # (1.3-7.7) k/uL Monocytes # (0-1.0) k/uL PT (9.0-12.0) sec INR (<1.2) APTT 33.7 H (22.0-30.0) sec ABG pH (7.35-7.45) ABG pCO2 (35-45) mmHg ABG pO2 (83-108) mmHg ABG Total CO2 (19-24) mmol/L ABG O2 Saturation (94-97) % Sodium (137-145) mmol/L Chloride (98-107) mmol/L Carbon Dioxide (22-30) mmol/L BUN (9-20) mg/dL Creatinine (0.66-1.25) mg/dL Glucose (74-99) mg/dL POC Glucose (mg/dL) 160 H 154 H (70-110) mg/dL Hemoglobin A1c (0.0-6.0) % Total Protein (6.3-8.2) g/dL Albumin (3.5-5.0) g/dL Procalcitonin (0.02-0.09) ng/mL Crossmatch 06/23/22 06/23/22 06/24/22 Range/Units 21:48 23:17 00:47 WBC (3.8-10.6) k/uL RBC (4.30-5.90) m/uL Hgb (13.0-17.5) gm/dL MCV (80.0-100.0) fL Plt Count (150-450) k/uL Neutrophils # (1.3-7.7) k/uL Monocytes # (0-1.0) k/uL PT (9.0-12.0) sec INR (<1.2) APTT 30.4 H (22.0-30.0) sec ABG pH (7.35-7.45) ABG pCO2 (35-45) mmHg ABG pO2 (83-108) mmHg ABG Total CO2 (19-24) mmol/L ABG O2 Saturation (94-97) % Sodium 136 L (137-145) mmol/L Chloride (98-107) mmol/L Carbon Dioxide 21 L (22-30) mmol/L BUN 53 H (9-20) mg/dL Creatinine 0.64 L (0.66-1.25) mg/dL Glucose 177 H (74-99) mg/dL POC Glucose (mg/dL) 137 H (70-110) mg/dL Hemoglobin A1c (0.0-6.0) % Total Protein (6.3-8.2) g/dL Albumin (3.5-5.0) g/dL Procalcitonin (0.02-0.09) ng/mL Crossmatch 06/24/22 06/24/22 06/24/22 Range/Units 00:47 00:57 01:36 WBC 23.2 H (3.8-10.6) k/uL RBC (4.30-5.90) m/uL Hgb (13.0-17.5) gm/dL MCV (80.0-100.0) fL Plt Count 149 L (150-450) k/uL Neutrophils # 18.1 H (1.3-7.7) k/uL Monocytes # 2.1 H (0-1.0) k/uL PT (9.0-12.0) sec INR (<1.2) APTT (22.0-30.0) sec ABG pH 7.48 H (7.35-7.45) ABG pCO2 32 L (35-45) mmHg ABG pO2 72 L (83-108) mmHg ABG Total CO2 25 H (19-24) mmol/L ABG O2 Saturation 97.5 H (94-97) % Sodium (137-145) mmol/L Chloride (98-107) mmol/L Carbon Dioxide (22-30) mmol/L BUN (9-20) mg/dL Creatinine (0.66-1.25) mg/dL Glucose (74-99) mg/dL POC Glucose (mg/dL) (70-110) mg/dL Hemoglobin A1c (0.0-6.0) % Total Protein (6.3-8.2) g/dL Albumin (3.5-5.0) g/dL Procalcitonin (0.02-0.09) ng/mL Crossmatch See Detail 06/24/22 06/24/22 06/24/22 Range/Units 06:52 06:56 06:56 WBC (3.8-10.6) k/uL RBC (4.30-5.90) m/uL Hgb (13.0-17.5) gm/dL MCV (80.0-100.0) fL Plt Count (150-450) k/uL Neutrophils # (1.3-7.7) k/uL Monocytes # (0-1.0) k/uL PT 14.5 H (9.0-12.0) sec INR 1.4 H (<1.2) APTT (22.0-30.0) sec ABG pH (7.35-7.45) ABG pCO2 (35-45) mmHg ABG pO2 (83-108) mmHg ABG Total CO2 (19-24) mmol/L ABG O2 Saturation (94-97) % Sodium 134 L (137-145) mmol/L Chloride 109 H (98-107) mmol/L Carbon Dioxide (22-30) mmol/L BUN 65 H (9-20) mg/dL Creatinine (0.66-1.25) mg/dL Glucose 212 H (74-99) mg/dL POC Glucose (mg/dL) 229 H (70-110) mg/dL Hemoglobin A1c (0.0-6.0) % Total Protein 5.8 L (6.3-8.2) g/dL Albumin 2.7 L (3.5-5.0) g/dL Procalcitonin (0.02-0.09) ng/mL Crossmatch 06/24/22 Range/Units 06:56 WBC 20.0 H (3.8-10.6) k/uL RBC 4.03 L (4.30-5.90) m/uL Hgb 12.7 L (13.0-17.5) gm/dL MCV 100.6 H (80.0-100.0) fL Plt Count 141 L (150-450) k/uL Neutrophils # 14.9 H (1.3-7.7) k/uL Monocytes # 2.0 H (0-1.0) k/uL PT (9.0-12.0) sec INR (<1.2) APTT (22.0-30.0) sec ABG pH (7.35-7.45) ABG pCO2 (35-45) mmHg ABG pO2 (83-108) mmHg ABG Total CO2 (19-24) mmol/L ABG O2 Saturation (94-97) % Sodium (137-145) mmol/L Chloride (98-107) mmol/L Carbon Dioxide (22-30) mmol/L BUN (9-20) mg/dL Creatinine (0.66-1.25) mg/dL Glucose (74-99) mg/dL POC Glucose (mg/dL) (70-110) mg/dL Hemoglobin A1c (0.0-6.0) % Total Protein (6.3-8.2) g/dL Albumin (3.5-5.0) g/dL Procalcitonin (0.02-0.09) ng/mL Crossmatch Microbiology - Last 24 Hours (Table) 06/23/22 06:02 Blood Culture - Preliminary Blood No Growth after 24 hours 06/22/22 02:08 Blood Culture Gram Stain - Preliminary Blood Blood Culture - Preliminary Strep agalactiae - (group b) Assessment and Plan Plan: Mental status changes, cause is unclear could be related to overdose of narcotic Leukocytosis, no clear source of infection, chest x-ray and urine analysis don't show any clear evidence of infection, patient received IV steroids in the EMS and in the emergency room, will check lactic acid level and monitor CBC Acute exacerbation of COPD with wheezing on presentation, he was started on IV Solu-Medrol in the emergency room, he is on inhaled bronchodilators Evidence of acute kidney injury was elevated BUN and creatinine patient was started on IV fluid at this time Mild elevation in troponin level will monitor Underlying history of hypertension Underlying history of hypothyroidism Underlying history of depression with anxiety disorder Underlying history of vitamin D deficiency Underlying history of degenerative disc disease with chronic back pain maintai angelic on narcotics for pain management Underlying history of gastroesophageal reflux disease At this time patient is admitted to telemetry floor Will check d-dimer check lactic acid recheck CBC and CMP Continue with IV fluid and recheck renal function Consult nephrology
--- NOTE | 2022-06-25 09:13 | P.PN ---
Subjective Progress Note Date: 06/25/22 Principal diagnosis: Acute coronary syndrome The patient is a pleasant 67-year-old patient with a past medical history significant for hypertension and dyslipidemia and also borderline diabetes as well as history of smoking who was admitted to the hospital with a change in mental status and he was diagnosed with sepsis possible related to pneumonia and also he was ruled in for acute coronary syndrome. The troponin came in to be abnormal with his EKG showed dynamic changes with ST and T wave abnormalities concerning for severe underlying coronary artery disease. The patient was seen this morning. His mentation has improved somewhat. He continues to be tachycardic. I am going to increase the dose of Toprol-XL. He underwent an echo which revealed normal LV function with no significant valvular abnormalities. The hemoglobin remains stable. Objective - Vital Signs Vital signs: Vital Signs Temp 98.8 F 06/25/22 04:00 Pulse 115 H 06/25/22 08:20 Resp 23 06/25/22 07:00 BP 159/76 06/25/22 07:00 Pulse Ox 95 06/25/22 07:00 FiO2 Intake & Output 06/24/22 06/25/22 06/25/22 18:59 06:59 18:59 Intake Total 6621.726 1702.746 Output Total 1175 1720 Balance 20.329 -532.254 Intake: IV 825 1125 ACETAMINOPHEN IV (For NPO 100 ) 1,000 mg In Empty Bag 1 bag @ 400 mls/hr IVPB Q6HR PRN Rx#:[id number] LR 825 975 ceFAZolin 2 gm In Sodium 50 Chloride 0.9% 50 ml @ 100 mls/hr IVPB Q8HR [facility] Rx# :[id number] Intake, IV Titration 370.329 62.746 Amount Clevidipine Butyrate 25 91.333 mg In Empty Bag 1 bag @ 1 MG/HR 2 mls/hr IV .Q24H [facility] Rx#:[id number] Dexmedetomidine/0.9% NaCl 178.996 62.746 (Pmx) 400 mcg In Empty Bag 1 bag @ 0.2 MCG/KG/HR 5.2 mls/hr IV .[id number] [facility] Rx#:[id number] ceFAZolin 2 gm In Sodium 100 Chloride 0.9% 50 ml @ 100 mls/hr IVPB Q8HR [facility] Rx# :[id number] Output: Gastric Drainage 500 Urine 1175 1220 Other: Voiding Method Indwelling Catheter Indwelling Catheter # Bowel Movements 1 - Constitutional General appearance: Present: no acute distress - Respiratory Respiratory: bilateral: CTA - Cardiovascular Rhythm: regular Heart sounds: normal: S1, S2 - Labs CBC & Chem 7: 06/25/22 07:08 06/25/22 07:08 Labs: Abnormal Lab Results - Last 24 Hours (Table) 06/24/22 06/24/22 06/24/22 Range/Units 12:05 17:27 21:17 WBC (3.8-10.6) k/uL RBC (4.30-5.90) m/uL Hgb (13.0-17.5) gm/dL Hct (39.0-53.0) % Plt Count (150-450) k/uL Chloride (98-107) mmol/L BUN (9-20) mg/dL Glucose (74-99) mg/dL POC Glucose (mg/dL) 204 H 184 H 153 H (70-110) mg/dL 06/25/22 06/25/22 06/25/22 Range/Units 06:52 07:08 07:08 WBC 16.5 H (3.8-10.6) k/uL RBC 3.72 L (4.30-5.90) m/uL Hgb 11.9 L (13.0-17.5) gm/dL Hct 36.7 L (39.0-53.0) % Plt Count 118 L (150-450) k/uL Chloride 110 H (98-107) mmol/L BUN 53 H (9-20) mg/dL Glucose 141 H (74-99) mg/dL POC Glucose (mg/dL) 158 H (70-110) mg/dL Microbiology - Last 24 Hours (Table) 06/23/22 06:02 Blood Culture - Preliminary Blood No Growth after 48 hours 06/22/22 02:08 Blood Culture Gram Stain - Final Blood Blood Culture - Final Strep agalactiae - (group b) Assessment and Plan Assessment: Assessment #1 change in mental status #2 sepsis likely to be related to pneumonia #3 evidence of myocardial injury was no evidence of ischemia so far #4 acute renal failure #5 hypertension #6 dyslipidemia #7 history of smoking #8 gastrointestinal bleeding Plan #1 increase the dose of Toprol-XL #2 continue the rest of the current medical regimen #3 follow-up with the patient
[2022-06-25] MEDS: ACETAMINOPHEN TAB 325 MG TAB PO PRN ×3 (09:58→21:00)
--- NOTE | 2022-06-25 10:21 | P.PN ---
Subjective Progress Note Date: 06/25/22 Principal diagnosis: Enteritis Patient tachycardic this morning. He actually appears more alert than yesterday. Denies abdominal pain. White blood cell count 16.5 which is impr stephanie. Still had a few small darker colored stools. Nasogastric tube output after was placed was initially bloody however now was more clear in color. Patient is hungry. Objective - Vital Signs Vital signs: Vital Signs Temp 98.3 F 06/25/22 08:00 Pulse 77 06/25/22 10:00 Resp 18 06/25/22 10:00 BP 170/77 06/25/22 10:00 Pulse Ox 98 06/25/22 10:00 FiO2 Intake & Output 06/24/22 06/25/22 06/25/22 18:59 06:59 18:59 Intake Total 6461.795 4730.746 275 Output Total 1175 1720 310 Balance 20.329 -532.254 -35 Intake: IV 825 1125 275 ACETAMINOPHEN IV (For NPO 100 ) 1,000 mg In Empty Bag 1 bag @ 400 mls/hr IVPB Q6HR PRN Rx#:[id number] LR 825 975 225 ceFAZolin 2 gm In Sodium 50 50 Chloride 0.9% 50 ml @ 100 mls/hr IVPB Q8HR [facility] Rx# :[id number] Intake, IV Titration 370.329 62.746 Amount Clevidipine Butyrate 25 91.333 mg In Empty Bag 1 bag @ 1 MG/HR 2 mls/hr IV .Q24H [facility] Rx#:[id number] Dexmedetomidine/0.9% NaCl 178.996 62.746 (Pmx) 400 mcg In Empty Bag 1 bag @ 0.2 MCG/KG/HR 5.2 mls/hr IV .[id number] [facility] Rx#:[id number] ceFAZolin 2 gm In Sodium 100 Chloride 0.9% 50 ml @ 100 mls/hr IVPB Q8HR [facility] Rx# :[id number] Output: Gastric Drainage 500 Urine 1175 1220 310 Other: Voiding Method Indwelling Catheter Indwelling Catheter # Bowel Movements 1 1 - Exam Abdomen: Soft, mild distention, nontender - Labs CBC & Chem 7: 06/25/22 07:08 06/25/22 07:08 Labs: Abnormal Lab Results - Last 24 Hours (Table) 06/24/22 06/24/22 06/24/22 Range/Units 12:05 17:27 21:17 WBC (3.8-10.6) k/uL RBC (4.30-5.90) m/uL Hgb (13.0-17.5) gm/dL Hct (39.0-53.0) % Plt Count (150-450) k/uL Chloride (98-107) mmol/L BUN (9-20) mg/dL Glucose (74-99) mg/dL POC Glucose (mg/dL) 204 H 184 H 153 H (70-110) mg/dL 06/25/22 06/25/22 06/25/22 Range/Units 06:52 07:08 07:08 WBC 16.5 H (3.8-10.6) k/uL RBC 3.72 L (4.30-5.90) m/uL Hgb 11.9 L (13.0-17.5) gm/dL Hct 36.7 L (39.0-53.0) % Plt Count 118 L (150-450) k/uL Chloride 110 H (98-107) mmol/L BUN 53 H (9-20) mg/dL Glucose 141 H (74-99) mg/dL POC Glucose (mg/dL) 158 H (70-110) mg/dL Microbiology - Last 24 Hours (Table) 06/23/22 06:02 Blood Culture - Preliminary Blood No Growth after 48 hours 06/22/22 02:08 Blood Culture Gram Stain - Final Blood Blood Culture - Final Strep agalactiae - (group b) Assessment and Plan (1) Enteritis Narrative/Plan: 67-year-old male with enteritis involving the duodenum and jejunum. Etiology remains unclear but may be related to ischemia from low flow initially. Continue supportive care. Keep nasogastric tube in place for today. Monitor labs and vital signs. Will follow. Current Visit: Yes Status: Acute Code(s): K52.9 - NONINFECTIVE GASTROENTERITIS AND COLITIS, UNSPECIFIED SNOMED Code(s): 02077908
--- NOTE | 2022-06-25 11:03 | P.PN ---
Subjective Progress Note Date: 06/25/22 Principal diagnosis: Acute mental status changes On 06/24/2022 patient seen in follow-up in the intensive care unit. Patient is sedated, currently on Precedex at 0.5 mics per kilo per hour. He is on Precedex at 5 mg per hour. Lactated Ringer's at 75 ML per hour, remains sedated, very confused. No signs of any respiratory distress, he is on 4 L of oxygen per nasal cannula with pulse ox of 95%, his been afebrile, in sinus mechanism, rate is 79 BPM. His blood pressure is better controlled with Cleviprex infusion. It is currently 141/75. MRI of the brain was completed last night showing no evidence of a recent infarct, mild diffuse age-related cerebral atrophy and ch ronic small vessel ischemic changes. No abnormal enhancement was noted. Today's labs have been reviewed, white blood cell count is 20.0, hemoglobin is 12.7, INR is 1.4, sodium is 134, potassium is 4.8, chloride is 109, BUN is 65 creatinine 0.76. Last night's blood gas was also reviewed showing pO2 of 72, pCO2 of 32, and pH of 7.48. This was done on FiO2 of 32%. CTA chest a few days ago showed no evidence of pulmonary embolism, showed interstitial infiltrate and atelectasis, no suspicious pulmonary mass. EEG showed no focal slowing, epileptiform discharge or seizure. Echocardiogram showed EF of 60-65%. Blood culture showed strep agalactiae, group B. Follow-up blood cultures have shown no growth thus far. ID service is following, patient remains on cefazolin 2 g every 8 hours. Last night patient developed GI bleeding, and passed of a very large maroon-colored stool. Today's hemoglobin is 12.7 which is down from 14 from yesterday, platelet count is 141, INR is 1.4. GI service has been consulted for evaluation. On 06/25/2022 patient seen in follow-up in the intensive care unit, he is much more awake and alert, he is oriented 3, no confusion or agitation, resting comfortably in bed, NG tube has been inserted for abdominal distention yesterday, there has been no gastric output out of it, but abdomen although still distended and seems softer and less distended on today's exam, overnight patient had 5 episodes of small to moderate in size tarry stools. Remains on Protonix 40 mg twice daily, remains nothing by mouth except for ice chips, surgical consultation has been obtained, please refer to the consultation note. He remains on Lexapro rings at a rate of 75 ML per hour. Cleviprex drip has been discontinued however his blood pressure remains elevated this morning and in view of nothing by mouth status will have to be restarted for blood pressure control, he is in sinus mechanism. Denies any shortness of breath or chest pain, lung sounds are clear to auscultation, Precedex has been weaned off since 11:00 yesterday morning. Remains on cefazolin for strep group B and the blood culture, follow blood culture remains negative thus far. Vital signs have been stable. Objective - Vital Signs Vital signs: Vital Signs Temp 98.3 F 06/25/22 08:00 Pulse 77 06/25/22 10:00 Resp 18 06/25/22 10:00 BP 170/77 06/25/22 10:00 Pulse Ox 98 06/25/22 10:00 FiO2 Intake & Output 06/24/22 06/25/22 06/25/22 18:59 06:59 18:59 Intake Total 8373.115 3922.746 275 Output Total 1175 1720 310 Balance 20.329 -532.254 -35 Intake: IV 825 1125 275 ACETAMINOPHEN IV (For NPO 100 ) 1,000 mg In Empty Bag 1 bag @ 400 mls/hr IVPB Q6HR PRN Rx#:[id number] LR 825 975 225 ceFAZolin 2 gm In Sodium 50 50 Chloride 0.9% 50 ml @ 100 mls/hr IVPB Q8HR [facility] Rx# :[id number] Intake, IV Titration 370.329 62.746 Amount Clevidipine Butyrate 25 91.333 mg In Empty Bag 1 bag @ 1 MG/HR 2 mls/hr IV .Q24H [facility] Rx#:[id number] Dexmedetomidine/0.9% NaCl 178.996 62.746 (Pmx) 400 mcg In Empty Bag 1 bag @ 0.2 MCG/KG/HR 5.2 mls/hr IV .[id number] [facility] Rx#:[id number] ceFAZolin 2 gm In Sodium 100 Chloride 0.9% 50 ml @ 100 mls/hr IVPB Q8HR [facility] Rx# :[id number] Output: Gastric Drainage 500 Urine 1175 1220 310 Other: Voiding Method Indwelling Catheter Indwelling Catheter Indwelling Catheter # Bowel Movements 1 1 - Exam GENERAL EXAM: Awake and alert 67-year-old white male, on 2 L of oxygen, comfortable in no apparent distress. HEAD: Normocephalic/atraumatic. EYES: Normal reaction of pupils, equal size. Conjunctiva pink, sclera white. NOSE: Clear with pink turbinates. THROAT: No erythema or exudates. NECK: No masses, no JVD, no thyroid enlargement, no adenopathy. CHEST: No chest wall deformity. Symmetrical expansion. LUNGS: Equal air entry with no crackles, wheeze, rhonchi or dullness. CVS: Regular rate and rhythm, normal S1 and S2, no gallops, no murmurs, no rubs ABDOMEN: Distended, tympanic to percussion, nontender. No hepatosplenomegaly, normal bowel sounds, no guarding or rigidity. EXTREMITIES: No clubbing, no edema, no cyanosis, 2+ pulses and upper and lower extremities. MUSCULOSKELETAL: Muscle strength and tone normal. SPINE: No scoliosis or deformity SKIN: No rashes CENTRAL NERVOUS SYSTEM: Sedated, withdraws to painful stimuli. No focal deficits, tone is normal in all 4 extremities. - Labs CBC & Chem 7: 06/25/22 07:08 06/25/22 07:08 Labs: Abnormal Lab Results - Last 24 Hours (Table) 06/24/22 06/24/22 06/24/22 Range/Units 12:05 17:27 21:17 WBC (3.8-10.6) k/uL RBC (4.30-5.90) m/uL Hgb (13.0-17.5) gm/dL Hct (39.0-53.0) % Plt Count (150-450) k/uL Chloride (98-107) mmol/L BUN (9-20) mg/dL Glucose (74-99) mg/dL POC Glucose (mg/dL) 204 H 184 H 153 H (70-110) mg/dL 06/25/22 06/25/22 06/25/22 Range/Units 06:52 07:08 07:08 WBC 16.5 H (3.8-10.6) k/uL RBC 3.72 L (4.30-5.90) m/uL Hgb 11.9 L (13.0-17.5) gm/dL Hct 36.7 L (39.0-53.0) % Plt Count 118 L (150-450) k/uL Chloride 110 H (98-107) mmol/L BUN 53 H (9-20) mg/dL Glucose 141 H (74-99) mg/dL POC Glucose (mg/dL) 158 H (70-110) mg/dL Microbiology - Last 24 Hours (Table) 06/23/22 06:02 Blood Culture - Preliminary Blood No Growth after 48 hours 06/22/22 02:08 Blood Culture Gram Stain - Final Blood Blood Culture - Final Strep agalactiae - (group b) Assessment and Plan Plan: Assessment: #1. Acute mental status changes, unknown etiology, related to sepsis, acute kidney injury. Currently patient is improving, and close to his baseline. Off Precedex today on 06/25/2022 #2. Bacteremia related to strep agalactiae, unknown source #3. Acute GI blood loss anemia, with passing maroon stools starting on 06/23/2022, GI service has been consulted #4. Acute kidney injury related to sepsis, improving #5. Hyponatremia, hypovolemic, resolved #6. Possible urinary tract infection #7. Multiple falls at home #8. History of opiate dependence #9. History of COPD/chronic bronchial asthma, unspecified #10. History of chronic back pain #11. History of anxiety #12. Hypertension #13. Hyperlipidemia Plan: We will restart Cleviprex for blood pressure control in view of nothing by mouth status Continue Protonix twice daily Surgical recommendations Patient had several bouts of tarry stools last night Hemodynamically he remains hypertensive Continue lactated Ringer's at 75 ML per hour NG tube in place We'll continue close monitoring in the intensive care unit I have personally seen and examined the patient, performed the documentation and the assessment and plan as written. Number of minutes spent on the visit: [15] Time with Patient: Less than 30
[2022-06-25 11:41] LABS: Glucose,Whole Blood 163 mg/dL (70-110)
[2022-06-25] MEDS ORDERED: ALPRAZolam 0.25 MG TAB PO PRN (14:02)
--- NOTE | 2022-06-25 14:03 | P.PN ---
Subjective Progress Note Date: 06/25/22 Ag Souza, is a 67-year-old male who presented to [facility] emergency room after having a multiple falls at home, has significant mental status changes with somnolence and poor responsiveness, history per his , over the last 24 hours patient has been not feeling well, he fell twice at home, on the second time she was not able to wake him up and get him up from the floor through the bed, she called EMS and he was brought into emergency room. He was evaluated in the emergency room vital examination on presentation revealed a temperature of 97.3 pulse 82 respiration 16 blood pressure 121/67 pulse ox 97% on room air Laboratory data revealed a white blood count of 23.2 hemoglobin 14.4 platelet count 98,000 sodium 129 potassium 4.9 chloride 96 CO2 25 BUN 51 creatinine 2.24 troponin level was 0.02 COVID-19 testing was negative Testing in the emergency room revealed chest x-ray done in the emergency room did not reveal significant abnormality. Patient has a known history of degenerative disc disease with chronic pain maintained on narcotics for pain management he was given Narcan in the emergency room which led to improvement in his mental status. Patient was admitted to medical floor for further evaluation and treatment. On 06/22/2022 patient was seen and examined on the telemetry floor he is still somnolent, agitated, pulling on his IV line, he was started through the night on IV Ativan, vital examination reveals a temperature of 98.4 pulse 132 respiration 24 blood pressure 172/91 pulse ox 96% on 2 L nasal cannula, white blood count is 21.9 hemoglobin 14.8 platelet count 118 d-dimer was elevated at 2.12 at this time will start patient on IV heparin high-intensity for possible pulmonary embolism, his kidney function is still elevated, will defer computed tomography scan this time, he is not cooperative to proceed with VQ scan, will continue with IV fluid, nephrology consultation and infectious disease consultation were requested. On 06/23/2022 patient was seen and examined in the ICU he is more alert and oriented today vital exam reveals a temperature of 98.2 pulse 86 respiration 23 blood pressure 138/79 pulse ox 93% on 2 L nasal cannula white blood count is down to 15.4 hemoglobin 13.2 platelet count 125 kidney function improved with BUN at 66 and creatinine at 0.89 kidney ultrasound was done and revealed no evidence of renal stones or obstruction, CT angiogram of the chest was done and there was no evidence of pulmonary embolism, blood culture were positive for Streptococcus group b , patient is currently maintained on IV Unasyn, IV vanc omycin and IV acyclovir, cardiology, pulmonary, nephrology, neurology and infectious disease are following On 06/24/2022 patient was seen and examined in the ICU he is more alert and oriented today kidney ultrasound was done and revealed no evidence of renal stones or obstruction, CT angiogram of the chest was done and there was no evidence of pulmonary embolism, blood culture were positive for Streptococcus group b , patient is currently maintained on IV Unasyn, IV vancomycin and IV acyclovir, cardiology, pulmonary, nephrology, neurology and infectious disease are following. Patient had a maroon colored stools through the night, GI consultation is not available this week, surgical consultation was requested for evaluation for possible GI bleed On 06/25/2022 patient was seen and examined in the ICU, he is more alert and responsive today, there is no fever or chills no headache or dizziness no chest pain no shortness of breath no cough no nausea or vomiting no abdominal pain no diarrhea and no urinary symptoms. IV heparin has been discontinued, at this time will start subcu Lovenox for DVT prophylaxis, he remains on IV antibiotics cefazolin 2 g IV every 8 hours Objective - Vital Signs Vital signs: Vital Signs Temp 98.8 F 06/25/22 04:00 Pulse 115 H 06/25/22 08:20 Resp 23 06/25/22 07:00 BP 159/76 06/25/22 07:00 Pulse Ox 95 06/25/22 07:00 FiO2 Intake & Output 06/24/22 06/25/22 06/25/22 18:59 06:59 18:59 Intake Total 2166.405 3207.746 Output Total 1175 1720 Balance 20.329 -532.254 Intake: IV 825 1125 ACETAMINOPHEN IV (For NPO 100 ) 1,000 mg In Empty Bag 1 bag @ 400 mls/hr IVPB Q6HR PRN Rx#:[id number] LR 825 975 ceFAZolin 2 gm In Sodium 50 Chloride 0.9% 50 ml @ 100 mls/hr IVPB Q8HR [facility] Rx# :[id number] Intake, IV Titration 370.329 62.746 Amount Clevidipine Butyrate 25 91.333 mg In Empty Bag 1 bag @ 1 MG/HR 2 mls/hr IV .Q24H [facility] Rx#:[id number] Dexmedetomidine/0.9% NaCl 178.996 62.746 (Pmx) 400 mcg In Empty Bag 1 bag @ 0.2 MCG/KG/HR 5.2 mls/hr IV .[id number] [facility] Rx#:[id number] ceFAZolin 2 gm In Sodium 100 Chloride 0.9% 50 ml @ 100 mls/hr IVPB Q8HR [facility] Rx# :[id number] Output: Gastric Drainage 500 Urine 1175 1220 Other: Voiding Method Indwelling Catheter Indwelling Catheter # Bowel Movements 1 - Exam In general patient is alert and responsive in no apparent distress HEENT head normocephalic and atraumatic Neck is supple no JVD no goiter no lymphadenopathy no carotid bruit Chest examination is clear to auscultation no crackles no wheezing Cardiac exam reveals regular heart sounds S1 and S2 no gallops no murmurs Abdomen is soft nontender no organomegaly with normal bowel sounds Extremity exam reveals no edema no cyanosis or clubbing Neurological examination reveals no gross focal deficits - Labs CBC & Chem 7: 06/25/22 07:08 06/25/22 07:08 Labs: Abnormal Lab Results - Last 24 Hours (Table) 06/24/22 06/24/22 06/24/22 Range/Units 12:05 17:27 21:17 WBC (3.8-10.6) k/uL RBC (4.30-5.90) m/uL Hgb (13.0-17.5) gm/dL Hct (39.0-53.0) % Plt Count (150-450) k/uL Chloride (98-107) mmol/L BUN (9-20) mg/dL Glucose (74-99) mg/dL POC Glucose (mg/dL) 204 H 184 H 153 H (70-110) mg/dL 06/25/22 06/25/22 06/25/22 Range/Units 06:52 07:08 07:08 WBC 16.5 H (3.8-10.6) k/uL RBC 3.72 L (4.30-5.90) m/uL Hgb 11.9 L (13.0-17.5) gm/dL Hct 36.7 L (39.0-53.0) % Plt Count 118 L (150-450) k/uL Chloride 110 H (98-107) mmol/L BUN 53 H (9-20) mg/dL Glucose 141 H (74-99) mg/dL POC Glucose (mg/dL) 158 H (70-110) mg/dL Microbiology - Last 24 Hours (Table) 06/23/22 06:02 Blood Culture - Preliminary Blood No Growth after 48 hours 06/22/22 02:08 Blood Culture Gram Stain - Final Blood Blood Culture - Final Strep agalactiae - (group b) Assessment and Plan Plan: Mental status changes, cause is unclear could be related to overdose of narcotic Leukocytosis, no clear source of infection, chest x-ray and urine analysis don't show any clear evidence of infection, patient received IV steroids in the EMS and in the emergency room, will check lactic acid level and monitor CBC Acute exacerbation of COPD with wheezing on presentation, he was started on IV Solu-Medrol in the emergency room, he is on inhaled bronchodilators Evidence of acute kidney injury was elevated BUN and creatinine patient was started on IV fluid at this time Mild elevation in troponin level will monitor Underlying history of hypertension Underlying history of hypothyroidism Underlying history of depression with anxiety disorder Underlying history of vitamin D deficiency Underlying history of degenerative disc disease with chronic back pain maintained on narcotics for pain management Underlying history of gastroesophageal reflux disease At this time patient is admitted to telemetry floor Will check d-dimer check lactic acid recheck CBC and CMP Continue with IV fluid and recheck renal function Consult nephrology
[2022-06-25] MEDS: NICOTINE 14MG/24HR PATCH TRANSDERM SCH (14:58)
[2022-06-25] MEDS: ENOXAPARIN 40 MG/0.4 ML SYRINGE SQ SCH (14:59)
--- NOTE | 2022-06-25 17:55 | P.PN ---
Subjective Progress Note Date: 06/23/22 Principal diagnosis: Bacteremia Patient is a 67 year old male presenting to the hospital in mental status changes and multiple falls did have a low-grade fever and elevated white count now with evidence of bacteremia. On today's evaluation that is 06/23/2022, the patient did have a low-grade fever 100.2 on her last night the patient is afebrile this morning the patient is more awake and alert breathing comfortably on nasal cannula oxygen denies any chest painand cough no abdominal pain or diarrhea Objective - Vital Signs Vital signs: Vital Signs Temp 98.2 F 06/23/22 12:00 Pulse 77 06/23/22 16:00 Resp 22 06/23/22 16:00 BP 129/77 06/23/22 16:00 Pulse Ox 95 06/23/22 16:00 FiO2 Intake & Output 06/22/22 06/23/22 06/23/22 18:59 06:59 18:59 Intake Total 2115.493 1155.64 2050 Output Total 500 1209 970 Balance 1615.493 -53.36 1080 Weight 102 kg Intake: IV 1100 800 Acyclovir Sodium 1,500 mg 250 In Sodium Chloride 0.9% 250 ml @ 280 mls/hr IV Q8H [facility] Rx#:[id number] Ampicillin 100 250 LR 900 300 Ofirmev 100 Intake, IV Titration 2115.493 55.64 0 Amount Ampicillin-Sulbactam 3 gm 100 In Sodium Chloride 0.9% 100 ml @ 200 mls/hr IVPB Q6HR [facility] Rx#:[id number] Dexmedetomidine/0.9% NaCl 159.453 55.64 0 (Pmx) 400 mcg In Empty Bag 1 bag @ 0.2 MCG/KG/HR 5.2 mls/hr IV .[id number] [facility] Rx#:[id number] Heparin Sod,Pork in 0.45% 131.04 NaCl 25,000 unit In 0.45 % NaCl 1 250ml.bag @ 18 UNITS/KG/HR 18.72 mls/hr IV .[id number] [facility] Rx#: [id number] Lactated Ringers 1,000 ml 225 @ 75 mls/hr IV .[id number] [facility] Rx#:[id number] Sodium Chloride 0.9% 1, 1000 000 ml @ 999 mls/hr IV . Q1H1M [facility] Rx#:[id number] Vancomycin 1,750 mg In 500 Sodium Chloride 0.9% 500 ml 500 ml @ 167 mls/hr IVPB Q16H [facility] Rx#: [id number] Oral 1250 Output: Urine 500 1209 970 Other: Voiding Method Indwelling Catheter Indwelling Catheter Indwelling Catheter - Exam GENERAL DESCRIPTION: An elderly male lying in bed in no distress RESPIRATORY SYSTEM: Unlabored breathing , decreased breath sounds at bases HEART: S1 S2 regular rate and rhythm , ABDOMEN: Soft , no tenderness EXTREMITIES: No edema feet - Labs CBC & Chem 7: 06/25/22 07:08 06/25/22 07:08 Labs: Abnormal Lab Results - Last 24 Hours (Table) 06/22/22 06/22/22 06/22/22 Range/Units 15:45 15:45 17:03 WBC (3.8-10.6) k/uL RBC (4.30-5.90) m/uL Plt Count (150-450) k/uL Neutrophils # (1.3-7.7) k/uL Monocytes # (0-1.0) k/uL PT (9.0-12.0) sec INR (<1.2) APTT 145.6 H* (22.0-30.0) sec BUN (9-20) mg/dL Glucose (74-99) mg/dL POC Glucose (mg/dL) 232 H (70-110) mg/dL Hemoglobin A1c (0.0-6.0) % Plasma Lactic Acid Adalid 3.0 H* (0.7-2.0) mmol/L Magnesium (1.6-2.3) mg/dL C-Reactive Protein (<1.0) mg/dL Albumin (3.5-5.0) g/dL Procalcitonin (0.02-0.09) ng/mL 06/22/22 06/23/22 06/23/22 Range/Units 21:12 05:46 05:46 WBC 15.4 H (3.8-10.6) k/uL RBC 4.17 L (4.30-5.90) m/uL Plt Count 125 L (150-450) k/uL Neutrophils # 12.2 H (1.3-7.7) k/uL Monocytes # 1.1 H (0-1.0) k/uL PT (9.0-12.0) sec INR (<1.2) APTT (22.0-30.0) sec BUN (9-20) mg/dL Glucose (74-99) mg/dL POC Glucose (mg/dL) 193 H (70-110) mg/dL Hemoglobin A1c (0.0-6.0) % Plasma Lactic Acid Adalid (0.7-2.0) mmol/L Magnesium (1.6-2.3) mg/dL C-Reactive Protein (<1.0) mg/dL Albumin (3.5-5.0) g/dL Procalcitonin 1.72 H (0.02-0.09) ng/mL 06/23/22 06/23/22 06/23/22 Range/Units 05:46 05:54 06:50 WBC (3.8-10.6) k/uL RBC (4.30-5.90) m/uL Plt Count (150-450) k/uL Neutrophils # (1.3-7.7) k/uL Monocytes # (0-1.0) k/uL PT (9.0-12.0) sec INR (<1.2) APTT (22.0-30.0) sec BUN 66 H (9-20) mg/dL Glucose 188 H (74-99) mg/dL POC Glucose (mg/dL) 168 H (70-110) mg/dL Hemoglobin A1c 6.4 H (0.0-6.0) % Plasma Lactic Acid Adalid (0.7-2.0) mmol/L Magnesium 2.5 H (1.6-2.3) mg/dL C-Reactive Protein 17.5 H (<1.0) mg/dL Albumin 3.1 L (3.5-5.0) g/dL Procalcitonin (0.02-0.09) ng/mL 06/23/22 06/23/22 Range/Units 09:15 12:05 WBC (3.8-10.6) k/uL RBC (4.30-5.90) m/uL Plt Count (150-450) k/uL Neutrophils # (1.3-7.7) k/uL Monocytes # (0-1.0) k/uL PT 14.0 H (9.0-12.0) sec INR 1.3 H (<1.2) APTT (22.0-30.0) sec BUN (9-20) mg/dL Glucose (74-99) mg/dL POC Glucose (mg/dL) 160 H (70-110) mg/dL Hemoglobin A1c (0.0-6.0) % Plasma Lactic Acid Adalid (0.7-2.0) mmol/L Magnesium (1.6-2.3) mg/dL C-Reactive Protein (<1.0) mg/dL Albumin (3.5-5.0) g/dL Procalcitonin (0.02-0.09) ng/mL Microbiology - Last 24 Hours (Table) 06/22/22 02:08 Blood Culture Gram Stain - Preliminary Blood Blood Culture - Preliminary Strep agalactiae - (group b) 06/21/22 12:50 Urine Culture - Final Urine,Voided 06/22/22 02:08 Blood Culture - Final Blood Assessment and Plan (1) Bacteremia Current Visit: Yes Status: Acute Code(s): R78.81 - BACTEREMIA SNOMED Code(s): 1634013 Plan: 1patient with sepsis in this patient who did have a fever elevated white count elevated lactic acid now with evidence of gram-positive bacteremia with a source possible aspiration pneumonia as repeat x-ray this morning shows increasing density left lower lobe as the patient currently do not have any other obvious focus is abdominal soft on clinical examination no evidence of any joint swelling or cellulitis was noticed. 2blood cultures has been repeated document clearance of bacteremia. 3 antibiotic switched over to cefazolin 2 g every 8 hours Time with Patient: Less than 30
[2022-06-25 17:57] LABS: Glucose,Whole Blood 157 mg/dL (70-110)
--- NOTE | 2022-06-25 17:57 | P.PN ---
Subjective Progress Note Date: 06/24/22 Principal diagnosis: Bacteremia Patient is a 67 year old male presenting to the hospital in mental status changes and multiple falls did have a low-grade fever and elevated white count now with evidence of bacteremia. On today's evaluation that is , the patient is afebrile, the patient is breathing comfortably on nasal cannula oxygen, the patient denies any chest pain did have occasional dry cough no abdominal pain or diarrhea Objective - Vital Signs Vital signs: Vital Signs Temp 98.0 F 06/24/22 08:00 Pulse 93 06/24/22 12:00 Resp 26 H 06/24/22 12:00 BP 143/67 06/24/22 12:00 Pulse Ox 94 L 06/24/22 12:00 FiO2 Intake & Output 06/23/22 06/24/22 06/24/22 18:59 06:59 18:59 Intake Total 2527.636 1070.571 538.916 Output Total 1190 1050 350 Balance 1337.636 20.571 188.916 Weight 104.3 kg Intake: IV 950 900 375 Acyclovir Sodium 1,500 mg 250 In Sodium Chloride 0.9% 250 ml @ 280 mls/hr IV Q8H [facility] Rx#:[id number] Ampicillin 250 75 LR 450 825 375 Intake, IV Titration 77.636 170.571 163.916 Amount Clevidipine Butyrate 25 25.767 41.333 mg In Empty Bag 1 bag @ 1 MG/HR 2 mls/hr IV .Q24H [facility] Rx#:[id number] Dexmedetomidine/0.9% NaCl 0 114.993 72.583 (Pmx) 400 mcg In Empty Bag 1 bag @ 0.2 MCG/KG/HR 5.2 mls/hr IV .[id number] [facility] Rx#:[id number] Heparin Sod,Pork in 0.45% 77.636 29.811 NaCl 25,000 unit In 0.45 % NaCl 1 250ml.bag @ 9.8 UNITS/KG/HR 9.996 mls/hr IV .Q24H [facility] Rx#: [id number] ceFAZolin 2 gm In Sodium 50 Chloride 0.9% 50 ml @ 100 mls/hr IVPB Q8HR [facility] Rx# :[id number] Oral 1500 Output: Urine 1190 1050 350 Other: Voiding Method Indwelling Catheter Indwelling Catheter Indwelling Catheter # Bowel Movements 1 - Exam GENERAL DESCRIPTION: An elderly male lying in bed in no distress RESPIRATORY SYSTEM: Unlabored breathing , decreased breath sounds at bases HEART: S1 S2 regular rate and rhythm , ABDOMEN: Soft , no tenderness EXTREMITIES: No edema feet - Labs CBC & Chem 7: 06/25/22 07:08 06/25/22 07:08 Labs: Abnormal Lab Results - Last 24 Hours (Table) 06/23/22 06/23/22 06/23/22 Range/Units 17:04 17:51 21:48 WBC (3.8-10.6) k/uL RBC (4.30-5.90) m/uL Hgb (13.0-17.5) gm/dL MCV (80.0-100.0) fL Plt Count (150-450) k/uL Neutrophils # (1.3-7.7) k/uL Monocytes # (0-1.0) k/uL PT (9.0-12.0) sec INR (<1.2) APTT 33.7 H (22.0-30.0) sec ABG pH (7.35-7.45) ABG pCO2 (35-45) mmHg ABG pO2 (83-108) mmHg ABG Total CO2 (19-24) mmol/L ABG O2 Saturation (94-97) % Sodium (137-145) mmol/L Chloride (98-107) mmol/L Carbon Dioxide (22-30) mmol/L BUN (9-20) mg/dL Creatinine (0.66-1.25) mg/dL Glucose (74-99) mg/dL POC Glucose (mg/dL) 154 H 137 H (70-110) mg/dL Total Protein (6.3-8.2) g/dL Albumin (3.5-5.0) g/dL Crossmatch 06/23/22 06/24/22 06/24/22 Range/Units 23:17 00:47 00:47 WBC 23.2 H (3.8-10.6) k/uL RBC (4.30-5.90) m/uL Hgb (13.0-17.5) gm/dL MCV (80.0-100.0) fL Plt Count 149 L (150-450) k/uL Neutrophils # 18.1 H (1.3-7.7) k/uL Monocytes # 2.1 H (0-1.0) k/uL PT (9.0-12.0) sec INR (<1.2) APTT 30.4 H (22.0-30.0) sec ABG pH (7.35-7.45) ABG pCO2 (35-45) mmHg ABG pO2 (83-108) mmHg ABG Total CO2 (19-24) mmol/L ABG O2 Saturation (94-97) % Sodium 136 L (137-145) mmol/L Chloride (98-107) mmol/L Carbon Dioxide 21 L (22-30) mmol/L BUN 53 H (9-20) mg/dL Creatinine 0.64 L (0.66-1.25) mg/dL Glucose 177 H (74-99) mg/dL POC Glucose (mg/dL) (70-110) mg/dL Total Protein (6.3-8.2) g/dL Albumin (3.5-5.0) g/dL Crossmatch 06/24/22 06/24/22 06/24/22 Range/Units 00:57 01:36 06:52 WBC (3.8-10.6) k/uL RBC (4.30-5.90) m/uL Hgb (13.0-17.5) gm/dL MCV (80.0-100.0) fL Plt Count (150-450) k/uL Neutrophils # (1.3-7.7) k/uL Monocytes # (0-1.0) k/uL PT (9.0-12.0) sec INR (<1.2) APTT (22.0-30.0) sec ABG pH 7.48 H (7.35-7.45) ABG pCO2 32 L (35-45) mmHg ABG pO2 72 L (83-108) mmHg ABG Total CO2 25 H (19-24) mmol/L ABG O2 Saturation 97.5 H (94-97) % Sodium (137-145) mmol/L Chloride (98-107) mmol/L Carbon Dioxide (22-30) mmol/L BUN (9-20) mg/dL Creatinine (0.66-1.25) mg/dL Glucose (74-99) mg/dL POC Glucose (mg/dL) 229 H (70-110) mg/dL Total Protein (6.3-8.2) g/dL Albumin (3.5-5.0) g/dL Crossmatch See Detail 06/24/22 06/24/22 06/24/22 Range/Units 06:56 06:56 06:56 WBC 20.0 H (3.8-10.6) k/uL RBC 4.03 L (4.30-5.90) m/uL Hgb 12.7 L (13.0-17.5) gm/dL MCV 100.6 H (80.0-100.0) fL Plt Count 141 L (150-450) k/uL Neutrophils # 14.9 H (1.3-7.7) k/uL Monocytes # 2.0 H (0-1.0) k/uL PT 14.5 H (9.0-12.0) sec INR 1.4 H (<1.2) APTT (22.0-30.0) sec ABG pH (7.35-7.45) ABG pCO2 (35-45) mmHg ABG pO2 (83-108) mmHg ABG Total CO2 (19-24) mmol/L ABG O2 Saturation (94-97) % Sodium 134 L (137-145) mmol/L Chloride 109 H (98-107) mmol/L Carbon Dioxide (22-30) mmol/L BUN 65 H (9-20) mg/dL Creatinine (0.66-1.25) mg/dL Glucose 212 H (74-99) mg/dL POC Glucose (mg/dL) (70-110) mg/dL Total Protein 5.8 L (6.3-8.2) g/dL Albumin 2.7 L (3.5-5.0) g/dL Crossmatch 06/24/22 Range/Units 12:05 WBC (3.8-10.6) k/uL RBC (4.30-5.90) m/uL Hgb (13.0-17.5) gm/dL MCV (80.0-100.0) fL Plt Count (150-450) k/uL Neutrophils # (1.3-7.7) k/uL Monocytes # (0-1.0) k/uL PT (9.0-12.0) sec INR (<1.2) APTT (22.0-30.0) sec ABG pH (7.35-7.45) ABG pCO2 (35-45) mmHg ABG pO2 (83-108) mmHg ABG Total CO2 (19-24) mmol/L ABG O2 Saturation (94-97) % Sodium (137-145) mmol/L Chloride (98-107) mmol/L Carbon Dioxide (22-30) mmol/L BUN (9-20) mg/dL Creatinine (0.66-1.25) mg/dL Glucose (74-99) mg/dL POC Glucose (mg/dL) 204 H (70-110) mg/dL Total Protein (6.3-8.2) g/dL Albumin (3.5-5.0) g/dL Crossmatch Microbiology - Last 24 Hours (Table) 06/23/22 06:02 Blood Culture - Preliminary Blood No Growth after 24 hours 06/22/22 02:08 Blood Culture Gram Stain - Preliminary Blood Blood Culture - Preliminary Strep agalactiae - (group b) Assessment and Plan (1) Bacteremia Current Visit: Yes Status: Acute Code(s): R78.81 - BACTEREMIA SNOMED Code(s): 6577978 Plan: 1patient with sepsis in this patient who did have a fever elevated white count elevated lactic acid now with evidence of gram-positive bacteremia with a source possible aspiration pneumonia as repeat x-ray this morning shows increasing density left lower lobe as the patient currently do not have any other obvious focus is abdominal soft on clinical examination no evidence of any joint swelling or cellulitis was noticed. 2blood cultures has been repeated which are negative so far 3 patient to continue with cefazolin 2 g every 8 hours Time with Patient: Less than 30
--- NOTE | 2022-06-25 17:59 | P.PN ---
Subjective Progress Note Date: 06/25/22 Principal diagnosis: Bacteremia Patient is a 67 year old male presenting to the hospital in mental status changes and multiple falls did have a low-grade fever and elevated white count now with evidence of bacteremia. On today's evaluation that is 06/25/2022, the patient remains to be afebrile, the patient is breathing comfortably on nasal cannula oxygen, the patient denies any chest pain , the patient did have a cough not bringing up any sputum no abdominal pain no diarrhea Objective - Vital Signs Vital signs: Vital Signs Temp 98.1 F 06/25/22 12:00 Pulse 83 06/25/22 12:00 Resp 14 06/25/22 12:00 BP 156/87 06/25/22 12:00 Pulse Ox 96 06/25/22 12:00 FiO2 Intake & Output 06/24/22 06/25/22 06/25/22 18:59 06:59 18:59 Intake Total 2756.535 2696.746 425 Output Total 1175 1720 485 Balance 20.329 -532.254 -60 Intake: IV 825 1125 425 ACETAMINOPHEN IV (For NPO 100 ) 1,000 mg In Empty Bag 1 bag @ 400 mls/hr IVPB Q6HR [facility] Rx#:[id number] LR 825 975 375 ceFAZolin 2 gm In Sodium 50 50 Chloride 0.9% 50 ml @ 100 mls/hr IVPB Q8HR [facility] Rx# :[id number] Intake, IV Titration 370.329 62.746 Amount Clevidipine Butyrate 25 91.333 mg In Empty Bag 1 bag @ 1 MG/HR 2 mls/hr IV .Q24H [facility] Rx#:[id number] Dexmedetomidine/0.9% NaCl 178.996 62.746 (Pmx) 400 mcg In Empty Bag 1 bag @ 0.2 MCG/KG/HR 5.2 mls/hr IV .[id number] [facility] Rx#:[id number] ceFAZolin 2 gm In Sodium 100 Chloride 0.9% 50 ml @ 100 mls/hr IVPB Q8HR [facility] Rx# :[id number] Output: Gastric Drainage 500 Urine 1175 1220 485 Other: Voiding Method Indwelling Catheter Indwelling Catheter Indwelling Catheter # Bowel Movements 1 1 - Exam GENERAL DESCRIPTION: An elderly male lying in bed in no distress RESPIRATORY SYSTEM: Unlabored breathing , decreased breath sounds at bases HEART: S1 S2 regular rate and rhythm , ABDOMEN: Soft , no tenderness EXTREMITIES: No edema feet - Labs CBC & Chem 7: 06/25/22 07:08 06/25/22 07:08 Labs: Abnormal Lab Results - Last 24 Hours (Table) 06/24/22 06/24/22 06/25/22 Range/Units 17:27 21:17 06:52 WBC (3.8-10.6) k/uL RBC (4.30-5.90) m/uL Hgb (13.0-17.5) gm/dL Hct (39.0-53.0) % Plt Count (150-450) k/uL Chloride (98-107) mmol/L BUN (9-20) mg/dL Glucose (74-99) mg/dL POC Glucose (mg/dL) 184 H 153 H 158 H (70-110) mg/dL 06/25/22 06/25/22 06/25/22 Range/Units 07:08 07:08 11:40 WBC 16.5 H (3.8-10.6) k/uL RBC 3.72 L (4.30-5.90) m/uL Hgb 11.9 L (13.0-17.5) gm/dL Hct 36.7 L (39.0-53.0) % Plt Count 118 L (150-450) k/uL Chloride 110 H (98-107) mmol/L BUN 53 H (9-20) mg/dL Glucose 141 H (74-99) mg/dL POC Glucose (mg/dL) 163 H (70-110) mg/dL Microbiology - Last 24 Hours (Table) 06/23/22 06:02 Blood Culture - Preliminary Blood No Growth after 48 hours 06/22/22 02:08 Blood Culture Gram Stain - Final Blood Blood Culture - Final Strep agalactiae - (group b) Assessment and Plan (1) Bacteremia Current Visit: Yes Status: Acute Code(s): R78.81 - BACTEREMIA SNOMED Code(s): 3997801 Plan: 1patient with sepsis in this patient who did have a fever elevated white count elevated lactic acid now with evidence of gram-positive bacteremia with a source possible aspiration pneumonia as repeat x-ray did showed increasing density left lower lobe as the patient currently do not have any other obvious focus is abdominal soft on clinical examination no evidence of any joint swelling or cellulitis was noticed. 2blood cultures has been repeated which are negative so far 3 patient has showed clinical improvement and will continue with cefazolin 2 g every 8 hours and monitor clinical course closely Time with Patient: Less than 30
[2022-06-25] MEDS: MELATONIN 5 MG TABLET PO SCH (20:43)
[2022-06-25 20:51] LABS: Glucose,Whole Blood 173 mg/dL (70-110)
[2022-06-26] MEDS: ACETAMINOPHEN TAB 325 MG TAB PO PRN ×3 (02:45→15:06)
[2022-06-26] MEDS: IPRATROPIUM-ALBUTEROL 3 ML NEB INHALATION PRN (03:48)
[2022-06-26 07:09] LABS: Glucose,Whole Blood 140 mg/dL (70-110)
[2022-06-26] MEDS: INSULIN ASPART (NovoLOG) 100 UNIT/ML VIAL SQ SCH ×4 (07:12→20:20)
[2022-06-26 07:31] LABS: HGB 12.9 gm/dL (13.0-17.5); MCH 31.8 pg (25.0-35.0); MCHC 32.2 g/dL (31.0-37.0); MCV 98.9 fL (80.0-100.0); Mean Platelet Volume 9.6; Platelet Count 165 k/uL (150-450); RBC 4.04 m/uL (4.30-5.90); RDW 13.4 % (11.5-15.5)
[2022-06-26 07:50] LABS: ALT 65 U/L (4-49); AST 82 U/L (17-59); African American GFR (CKD) >90 (>60 ml/min/1.73 sqM); Alkaline Phosphatase 101 U/L (38-126); Anion Gap 3 mmol/L; Blood Urea Nitrogen 42 mg/dL (9-20); Calcium 8.5 mg/dL (8.4-10.2); Carbon Dioxide 27 mmol/L (22-30); Chloride 109 mmol/L (98-107); Glucose 155 mg/dL (74-99); Non-African American GFR(CKD) >90 (>60 ml/min/1.73 sqM); Potassium 4.3 mmol/L (3.5-5.1); Sodium 139 mmol/L (137-145); Total Bilirubin 1.2 mg/dL (0.2-1.3); Total Protein 6.3 g/dL (6.3-8.2)
[2022-06-26] MEDS: LACTATED RINGERS 1,000 ML IV SCH ×3 (07:54→22:47)
--- NOTE | 2022-06-26 07:55 | P.PN ---
Subjective Progress Note Date: 06/26/22 Principal diagnosis: Acute coronary syndrome The patient is a pleasant 67-year-old patient with a past medical history significant for hypertension and dyslipidemia and also borderline diabetes as well as history of smoking who was admitted to the hospital with a change in mental status. The etiology was unknown. We involved in the care of the patient because her troponin was checked and came in to be unremarkable. His echo showed normal wall motion abnormalities concerning for ischemia but the EKG revealed ST changes appeared to be somewhat dynamic. Because of that the patient was sedated with anticoagulation. He was started on heparin. The following day he developed GI bleeding. The heparin was stopped. Surgery was consulted and he was diagnosed with enteritis. He was treated medically. The hemoglobin has been stable since the heparin was stopped. No more GI bleeding. The patient was seen this morning. He is definitely better. His mentation has improved significantly. No symptoms of chest pain or chest discomfort and no shortness of breath. He has been in sinus rhythm. The sinus tachycardia has improved. He continues to be hypertensive and systolic pressure above 140 mmHg. Currently he is on high dose of beta guerda. I'm going to add lo sartan/hydrochlorothiazide to the current medical regimen. Meanwhile continue the rest of the current medical regimen. Objective - Vital Signs Vital signs: Vital Signs Temp 98 F 06/25/22 20:00 Pulse 91 06/26/22 07:00 Resp 26 H 06/26/22 07:00 BP 170/77 06/26/22 07:00 Pulse Ox 95 06/26/22 07:00 FiO2 Intake & Output 06/25/22 06/26/22 06/26/22 18:59 06:59 18:59 Intake Total 875 1000 75 Output Total 905 535 60 Balance -30 465 15 Intake: IV 875 1000 75 LR 825 900 75 ceFAZolin 2 gm In Sodium 50 100 Chloride 0.9% 50 ml @ 100 mls/hr IVPB Q8HR [facility] Rx# :[id number] Output: Urine 905 535 60 Other: Voiding Method Indwelling Catheter Indwelling Catheter # Bowel Movements 1 - Constitutional General appearance: Present: no acute distress - Respiratory Respiratory: bilateral: CTA - Cardiovascular Rhythm: regular Heart sounds: normal: S1, S2 - Labs CBC & Chem 7: 06/26/22 06:51 06/25/22 07:08 Labs: Abnormal Lab Results - Last 24 Hours (Table) 06/25/22 06/25/22 06/25/22 Range/Units 11:40 17:56 20:50 WBC (3.8-10.6) k/uL RBC (4.30-5.90) m/uL Hgb (13.0-17.5) gm/dL POC Glucose (mg/dL) 163 H 157 H 173 H (70-110) mg/dL 06/26/22 06/26/22 Range/Units 06:51 07:07 WBC 22.3 H (3.8-10.6) k/uL RBC 4.04 L (4.30-5.90) m/uL Hgb 12.9 L (13.0-17.5) gm/dL POC Glucose (mg/dL) 140 H (70-110) mg/dL Microbiology - Last 24 Hours (Table) 06/23/22 06:02 Blood Culture - Preliminary Blood No Growth after 48 hours Assessment and Plan Assessment: Assessment #1 change in mental status which has improved #2 sepsis likely to be related to pneumonia #3 evidence of myocardial injury with mildly abnormal troponin #4 acute renal failure which has improved #5 hypertension not under good control #6 dyslipidemia #7 history of smoking #8 gastrointestinal bleeding Plan #1 continue the current dose of Toprol-XL #2 add losartan/hydrochlorothiazide for controlling the blood pressure #3 follow-up with the patient
--- NOTE | 2022-06-26 08:21 | P.PN ---
Subjective Progress Note Date: 06/26/22 Principal diagnosis: Acute mental status changes On 06/24/2022 patient seen in follow-up in the intensive care unit. Patient is sedated, currently on Precedex at 0.5 mics per kilo per hour. He is on Precedex at 5 mg per hour. Lactated Ringer's at 75 ML per hour, remains sedated, very confused. No signs of any respiratory distress, he is on 4 L of oxygen per nasal cannula with pulse ox of 95%, his been afebrile, in sinus mechanism, rate is 79 BPM. His blood pressure is better controlled with Cleviprex infusion. It is currently 141/75. MRI of the brain was completed last night showing no evidence of a recent infarct, mild diffuse age-related cerebral atrophy and ch ronic small vessel ischemic changes. No abnormal enhancement was noted. Today's labs have been reviewed, white blood cell count is 20.0, hemoglobin is 12.7, INR is 1.4, sodium is 134, potassium is 4.8, chloride is 109, BUN is 65 creatinine 0.76. Last night's blood gas was also reviewed showing pO2 of 72, pCO2 of 32, and pH of 7.48. This was done on FiO2 of 32%. CTA chest a few days ago showed no evidence of pulmonary embolism, showed interstitial infiltrate and atelectasis, no suspicious pulmonary mass. EEG showed no focal slowing, epileptiform discharge or seizure. Echocardiogram showed EF of 60-65%. Blood culture showed strep agalactiae, group B. Follow-up blood cultures have shown no growth thus far. ID service is following, patient remains on cefazolin 2 g every 8 hours. Last night patient developed GI bleeding, and passed of a very large maroon-colored stool. Today's hemoglobin is 12.7 which is down from 14 from yesterday, platelet count is 141, INR is 1.4. GI service has been consulted for evaluation. On 06/25/2022 patient seen in follow-up in the intensive care unit, he is much more awake and alert, he is oriented 3, no confusion or agitation, resting comfortably in bed, NG tube has been inserted for abdominal distention yesterday, there has been no gastric output out of it, but abdomen although still distended and seems softer and less distended on today's exam, overnight patient had 5 episodes of small to moderate in size tarry stools. Remains on Protonix 40 mg twice daily, remains nothing by mouth except for ice chips, surgical consultation has been obtained, please refer to the consultation note. He remains on Lexapro rings at a rate of 75 ML per hour. Cleviprex drip has been discontinued however his blood pressure remains elevated this morning and in view of nothing by mouth status will have to be restarted for blood pressure control, he is in sinus mechanism. Denies any shortness of breath or chest pain, lung sounds are clear to auscultation, Precedex has been weaned off since 11:00 yesterday morning. Remains on cefazolin for strep group B and the blood culture, follow blood culture remains negative thus far. Vital signs have been stable. 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 Hemodynamically he remains stable, he is awake and alert, oriented 3, NG tube remains in place to low intermittent suction. Remains on ice chips otherwise nothing by mouth, likely Ringer's at a rate of 75 ML per hour. He is breathing comfortably, denies any chest pain, not on any vasopressor support, in sinus mechanism. Today's hemoglobin is 12.9, white blood cell count was 22.3. BUN is 42, creatinine 0.75. Objective - Vital Signs Vital signs: Vital Signs Temp 98 F 06/25/22 20:00 Pulse 91 06/26/22 07:00 Resp 26 H 06/26/22 07:00 BP 170/77 06/26/22 07:00 Pulse Ox 95 06/26/22 07:00 FiO2 Intake & Output 06/25/22 06/26/22 06/26/22 18:59 06:59 18:59 Intake Total 875 1000 75 Output Total 905 535 60 Balance -30 465 15 Intake: IV 875 1000 75 LR 825 900 75 ceFAZolin 2 gm In Sodium 50 100 Chloride 0.9% 50 ml @ 100 mls/hr IVPB Q8HR [facility] Rx# :[id number] Output: Urine 905 535 60 Other: Voiding Method Indwelling Catheter Indwelling Catheter # Bowel Movements 1 - Exam GENERAL EXAM: Awake and alert 67-year-old white male, on 2 L of oxygen, comfortable in no apparent distress. HEAD: Normocephalic/atraumatic. EYES: Normal reaction of pupils, equal size. Conjunctiva pink, sclera white. NOSE: Clear with pink turbinates. THROAT: No erythema or exudates. NECK: No masses, no JVD, no thyroid enlargement, no adenopathy. CHEST: No chest wall deformity. Symmetrical expansion. LUNGS: Equal air entry with no crackles, wheeze, rhonchi or dullness. CVS: Regular rate and rhythm, normal S1 and S2, no gallops, no murmurs, no rubs ABDOMEN: Distended, tympanic to percussion, nontender. No hepatosplenomegaly, normal bowel sounds, no guarding or rigidity. EXTREMITIES: No clubbing, no edema, no cyanosis, 2+ pulses and upper and lower extremities. MUSCULOSKELETAL: Muscle strength and tone normal. SPINE: No scoliosis or deformity SKIN: No rashes CENTRAL NERVOUS SYSTEM: Sedated, withdraws to painful stimuli. No focal defi cits, tone is normal in all 4 extremities. - Labs CBC & Chem 7: 06/26/22 06:51 06/26/22 06:51 Labs: Abnormal Lab Results - Last 24 Hours (Table) 06/25/22 06/25/22 06/25/22 Range/Units 11:40 17:56 20:50 WBC (3.8-10.6) k/uL RBC (4.30-5.90) m/uL Hgb (13.0-17.5) gm/dL Chloride (98-107) mmol/L BUN (9-20) mg/dL Glucose (74-99) mg/dL POC Glucose (mg/dL) 163 H 157 H 173 H (70-110) mg/dL AST (17-59) U/L ALT (4-49) U/L Albumin (3.5-5.0) g/dL 06/26/22 06/26/22 06/26/22 Range/Units 06:51 06:51 07:07 WBC 22.3 H (3.8-10.6) k/uL RBC 4.04 L (4.30-5.90) m/uL Hgb 12.9 L (13.0-17.5) gm/dL Chloride 109 H (98-107) mmol/L BUN 42 H (9-20) mg/dL Glucose 155 H (74-99) mg/dL POC Glucose (mg/dL) 140 H (70-110) mg/dL AST 82 H (17-59) U/L ALT 65 H (4-49) U/L Albumin 3.0 L (3.5-5.0) g/dL Microbiology - Last 24 Hours (Table) 06/23/22 06:02 Blood Culture - Preliminary Blood No Growth after 72 hours Assessment and Plan Plan: Assessment: #1. Acute mental status changes, unknown etiology, related to sepsis, acute kidney injury. Currently patient is improving, and close to his baseline. Off Precedex on 06/25/2022 #2. Bacteremia related to strep agalactiae, unknown source, follow blood cultures show no growth #3. Acute GI blood loss anemia, with passing maroon stools starting on 06/23/2022, GI service has been consulted #4. Acute kidney injury related to sepsis, improving #5. Hyponatremia, hypovolemic, resolved #6. Possible urinary tract infection #7. Multiple falls at home #8. History of opiate dependence #9. History of COPD/chronic bronchial asthma, unspecified #10. History of chronic back pain #11. History of anxiety #12. Hypertension #13. Hyperlipidemia Plan: No active bleeding overnight Hemodynamically stable Continue IV Protonix Surgery recommendations NG tube remains in place Neurologically significantly improved No agitation noted Precedex has been discontinued Follow blood cultures are negative thus far Remains on cefazolin Patient can be transferred out of intensive care unit I have personally seen and examined the patient, performed the documentation and the assessment and plan as written. Number of minutes spent on the visit: [15] Time with Patient: Less than 30
[2022-06-26] MEDS: IPRATROPIUM-ALBUTEROL 3 ML NEB INHALATION SCH ×5 (08:34→19:20)
[2022-06-26 08:36] LABS: Band Neutrophils % 2 %; Metamyelocytes % 3 %; Myelocytes # (M) 0.22 k/uL (0); Myelocytes % 1 %; Neutrophils % (M) 66 %; Nucleated Red Blood Cells 1 /100 WBC (0-0); Total Cells Counted 200
[2022-06-26 08:37] LABS: Eosinophils # (M) 0.44 k/uL (0-0.7); Lymphocytes # (M) 2.87 k/uL (1.0-4.8); Metamyelocytes # (M) 0.66 k/uL (0); Monocytes # (M) 3.32 k/uL (0-1.0); WBC 22.1 k/uL (3.8-10.6)
[2022-06-26 08:39] LABS: RBC Morphology Normal; Toxic Granulation Present
[2022-06-26] MEDS: NICOTINE 14MG/24HR PATCH TRANSDERM SCH (08:41)
[2022-06-26] MEDS: ENOXAPARIN 40 MG/0.4 ML SYRINGE SQ SCH (08:48)
[2022-06-26] MEDS: LOSARTAN-HCTZ 50-12.5 MG 1 EACH TAB PO SCH (08:49)
[2022-06-26] MEDS: PANTOPRAZOLE 40 MG/10 ML VIAL IVP SCH ×2 (08:49→20:20)
[2022-06-26] MEDS: METOPROLOL SUCCINATE (ER) 100 MG TAB.ER.24H PO SCH (08:49)
--- NOTE | 2022-06-26 10:02 | P.PN ---
Subjective Progress Note Date: 06/26/22 Principal diagnosis: Enteritis Patient is doing better today. Denies abdominal pain. He did have a dark- colored stool last night. Nasogastric tube output is minimal watery in a ppearance. Labs noted. Objective - Vital Signs Vital signs: Vital Signs Temp 97.8 F 06/26/22 08:00 Pulse 91 06/26/22 09:00 Resp 20 06/26/22 09:00 BP 174/83 06/26/22 09:00 Pulse Ox 96 06/26/22 09:00 FiO2 Intake & Output 06/25/22 06/26/22 06/26/22 18:59 06:59 18:59 Intake Total 875 1000 75 Output Total 905 535 60 Balance -30 465 15 Intake: IV 875 1000 75 LR 825 900 75 ceFAZolin 2 gm In Sodium 50 100 Chloride 0.9% 50 ml @ 100 mls/hr IVPB Q8HR [facility] Rx# :[id number] Output: Urine 905 535 60 Other: Voiding Method Indwelling Catheter Indwelling Catheter Indwelling Catheter # Bowel Movements 1 - Exam Abdomen: Soft, non-tender, minimal distention - Labs CBC & Chem 7: 06/26/22 06:51 06/26/22 06:51 Labs: Abnormal Lab Results - Last 24 Hours (Table) 06/25/22 06/25/22 06/25/22 Range/Units 11:40 17:56 20:50 WBC (3.8-10.6) k/uL RBC (4.30-5.90) m/uL Hgb (13.0-17.5) gm/dL Neutrophils # (Manual) (1.3-7.7) k/uL Monocytes # (Manual) (0-1.0) k/uL Metamyelocytes # (Man) (0) k/uL Myelocytes # (Manual) (0) k/uL Nucleated RBCs (0-0) /100 WBC Chloride (98-107) mmol/L BUN (9-20) mg/dL Glucose (74-99) mg/dL POC Glucose (mg/dL) 163 H 157 H 173 H (70-110) mg/dL AST (17-59) U/L ALT (4-49) U/L Albumin (3.5-5.0) g/dL 06/26/22 06/26/2206/26/22 Range/Units 06:51 06:51 07:07 WBC 22.1 H (3.8-10.6) k/uL RBC 4.04 L (4.30-5.90) m/uL Hgb 12.9 L (13.0-17.5) gm/dL Neutrophils # (Manual) 15.00 H (1.3-7.7) k/uL Monocytes # (Manual) 3.32 H (0-1.0) k/uL Metamyelocytes # (Man) 0.66 H (0) k/uL Myelocytes # (Manual) 0.22 H (0) k/uL Nucleated RBCs 1 H (0-0) /100 WBC Chloride 109 H (98-107) mmol/L BUN 42 H (9-20) mg/dL Glucose 155 H (74-99) mg/dL POC Glucose (mg/dL) 140 H (70-110) mg/dL AST 82 H (17-59) U/L ALT 65 H (4-49) U/L Albumin 3.0 L (3.5-5.0) g/dL Microbiology - Last 24 Hours (Table) 06/23/22 06:02 Blood Culture - Preliminary Blood No Growth after 72 hours Assessment and Plan (1) Enteritis Narrative/Plan: Patient doing well today. We'll remove the nasogastric tube at this time. Begin sips of clear liquids. Increase activity as tolerated. Current Visit: Yes Status: Acute Code(s): K52.9 - NONINFECTIVE GASTROENTERITIS AND COLITIS, UNSPECIFIED SNOMED Code(s): 06453756
[2022-06-26 12:11] LABS: Glucose,Whole Blood 185 mg/dL (70-110)
--- NOTE | 2022-06-26 12:43 | P.PN ---
Subjective Progress Note Date: 06/26/22 Ag Souza, is a 67-year-old male who presented to [facility] emergency room after having a multiple falls at home, has significant mental status changes with somnolence and poor responsiveness, history per his , over the last 24 hours patient has been not feeling well, he fell twice at home, on the second time she was not able to wake him up and get him up from the floor through the bed, she called EMS and he was brought into emergency room. He was evaluated in the emergency room vital examination on presentation revealed a temperature of 97.3 pulse 82 respiration 16 blood pressure 121/67 pulse ox 97% on room air Laboratory data revealed a white blood count of 23.2 hemoglobin 14.4 platelet count 98,000 sodium 129 potassium 4.9 chloride 96 CO2 25 BUN 51 creatinine 2.24 troponin level was 0.02 COVID-19 testing was negative Testing in the emergency room revealed chest x-ray done in the emergency room did not reveal significant abnormality. Patient has a known history of degenerative disc disease with chronic pain maintained on narcotics for pain management he was given Narcan in the emergency room which led to improvement in his mental status. Patient was admitted to medical floor for further evaluation and treatment. On 06/22/2022 patient was seen and examined on the telemetry floor he is still somnolent, agitated, pulling on his IV line, he was started through the night on IV Ativan, vital examination reveals a temperature of 98.4 pulse 132 respiration 24 blood pressure 172/91 pulse ox 96% on 2 L nasal cannula, white blood count is 21.9 hemoglobin 14.8 platelet count 118 d-dimer was elevated at 2.12 at this time will start patient on IV heparin high-intensity for possible pulmonary embolism, his kidney function is still elevated, will defer computed tomography scan this time, he is not cooperative to proceed with VQ scan, will continue with IV fluid, nephrology consultation and infectious disease consultation were requested. On 06/23/2022 patient was seen and examined in the ICU he is more alert and oriented today vital exam reveals a temperature of 98.2 pulse 86 respiration 23 blood pressure 138/79 pulse ox 93% on 2 L nasal cannula white blood count is down to 15.4 hemoglobin 13.2 platelet count 125 kidney function improved with BUN at 66 and creatinine at 0.89 kidney ultrasound was done and revealed no evidence of renal stones or obstruction, CT angiogram of the chest was done and there was no evidence of pulmonary embolism, blood culture were positive for Streptococcus group b , patient is currently maintained on IV Unasyn, IV vanc omycin and IV acyclovir, cardiology, pulmonary, nephrology, neurology and infectious disease are following On 06/24/2022 patient was seen and examined in the ICU he is more alert and oriented today kidney ultrasound was done and revealed no evidence of renal stones or obstruction, CT angiogram of the chest was done and there was no evidence of pulmonary embolism, blood culture were positive for Streptococcus group b , patient is currently maintained on IV Unasyn, IV vancomycin and IV acyclovir, cardiology, pulmonary, nephrology, neurology and infectious disease are following. Patient had a maroon colored stools through the night, GI consultation is not available this week, surgical consultation was requested for evaluation for possible GI bleed On 06/25/2022 patient was seen and examined in the ICU, he is more alert and responsive today, there is no fever or chills no headache or dizziness no chest pain no shortness of breath no cough no nausea or vomiting no abdominal pain no diarrhea and no urinary symptoms. IV heparin has been discontinued, at this time will start subcu Lovenox for DVT prophylaxis, he remains on IV antibiotics cefazolin 2 g IV every 8 hours. On 06/26/2022 patient was seen and examined in the ICU he is alert and oriented 3 in no apparent distress he is complaining of abdominal discomfort otherwise he denies any complaint at this time there is no fever or chills no headache or dizziness no chest pain no shortness of breath no cough no nausea or vomiting no diarrhea no blood in the stools no burning with urination no frequency or urgency and no hematuria Objective - Vital Signs Vital signs: Vital Signs Temp 97.8 F 06/26/22 08:00 Pulse 85 06/26/22 12:04 Resp 20 06/26/22 09:00 BP 174/83 06/26/22 09:00 Pulse Ox 96 06/26/22 09:00 FiO2 Intake & Output 06/25/22 06/26/22 06/26/22 18:59 06:59 18:59 Intake Total 875 1000 75 Output Total 905 535 60 Balance -30 465 15 Intake: IV 875 1000 75 LR 825 900 75 ceFAZolin 2 gm In Sodium 50 100 Chloride 0.9% 50 ml @ 100 mls/hr IVPB Q8HR REPLACED BY [facility] Rx# :[id number] Output: Urine 905 535 60 Other: Voiding Method Indwelling Catheter Indwelling Catheter Indwelling Catheter # Bowel Movements 1 - Exam In general patient is alert and responsive in no apparent distress HEENT head normocephalic and atraumatic Neck is supple no JVD no goiter no lymphadenopathy no carotid bruit Chest examination is clear to auscultation no crackles no wheezing Cardiac exam reveals regular heart sounds S1 and S2 no gallops no murmurs Abdomen is soft nontender no organomegaly with normal bowel sounds Extremity exam reveals no edema no cyanosis or clubbing Neurological examination reveals no gross focal deficits - Labs CBC & Chem 7: 06/26/22 06:51 06/26/22 06:51 Labs: Abnormal Lab Results - Last 24 Hours (Table) 06/25/22 06/25/22 06/26/22 Range/Units 17:56 20:50 06:51 WBC 22.1 H (3.8-10.6) k/uL RBC 4.04 L (4.30-5.90) m/uL Hgb 12.9 L (13.0-17.5) gm/dL Neutrophils # (Manual) 15.00 H (1.3-7.7) k/uL Monocytes # (Manual) 3.32 H (0-1.0) k/uL Metamyelocytes # (Man) 0.66 H (0) k/uL Myelocytes # (Manual) 0.22 H (0) k/uL Nucleated RBCs 1 H (0-0) /100 WBC Chloride (98-107) mmol/L BUN (9-20) mg/dL Glucose (74-99) mg/dL POC Glucose (mg/dL) 157 H 173 H (70-110) mg/dL AST (17-59) U/L ALT (4-49) U/L Albumin (3.5-5.0) g/dL 06/26/22 06/26/22 Range/Units 06:51 07:07 WBC (3.8-10.6) k/uL RBC (4.30-5.90) m/uL Hgb (13.0-17.5) gm/dL Neutrophils # (Manual) (1.3-7.7) k/uL Monocytes # (Manual) (0-1.0) k/uL Metamyelocytes # (Man) (0) k/uL Myelocytes # (Manual) (0) k/uL Nucleated RBCs (0-0) /100 WBC Chloride 109 H (98-107) mmol/L BUN 42 H (9-20) mg/dL Glucose 155 H (74-99) mg/dL POC Glucose (mg/dL) 140 H (70-110) mg/dL AST 82 H (17-59) U/L ALT 65 H (4-49) U/L Albumin 3.0 L (3.5-5.0) g/dL Microbiology - Last 24 Hours (Table) 06/23/22 06:02 Blood Culture - Preliminary Blood No Growth after 72 hours Assessment and Plan Plan: Mental status changes, cause is unclear could be related to overdose of narcotic Leukocytosis, no clear source of infection, chest x-ray and urine analysis don't show any clear evidence of infection, patient received IV steroids in the EMS and in the emergency room, will check lactic acid level and monitor CBC Acute exacerbation of COPD with wheezing on presentation, he was started on IV Solu-Medrol in the emergency room, he is on inhaled bronchodilators Evidence of acute kidney injury was elevated BUN and creatinine patient was started on IV fluid at this time Mild elevation in troponin level will monitor Underlying history of hypertension Underlying history of hypothyroidism Underlying history of depression with anxiety disorder Underlying history of vitamin D deficiency Underlying history of degenerative disc disease with chronic back pain maintained on narcotics for pain management Underlying history of gastroesophageal reflux disease At this time patient is admitted to telemetry floor Will check d-dimer check lactic acid recheck CBC and CMP Continue with IV fluid and recheck renal function Consult nephrology
[2022-06-26] MEDS: SIMETHICONE 40 MG/0.6 ML DROPS 2,000 MG/30 ML BOTTLE PO SCH ×4 (15:06→21:02)
[2022-06-26] MEDS: AMPICILLIN-SULBACTAM 3 GM in SODIUM CHLORIDE 0.9% 100 ML IVPB SCH (15:38)
[2022-06-26 16:54] LABS: Glucose,Whole Blood 162 mg/dL (70-110)
[2022-06-26 20:08] LABS: Glucose,Whole Blood 169 mg/dL (70-110)
[2022-06-26] MEDS: ALPRAZolam 0.5 MG TAB PO SCH (20:19)
[2022-06-26] MEDS: MELATONIN 5 MG TABLET PO SCH (20:19)
[2022-06-27] MEDS: IPRATROPIUM-ALBUTEROL 3 ML NEB INHALATION PRN (00:20)
[2022-06-27 06:08] LABS: Glucose,Whole Blood 158 mg/dL (70-110)
[2022-06-27] MEDS: INSULIN ASPART (NovoLOG) 100 UNIT/ML VIAL SQ SCH ×4 (06:27→20:28)
[2022-06-27 07:10] LABS: ALT 62 U/L (4-49); AST 79 U/L (17-59); African American GFR (CKD) >90 (>60 ml/min/1.73 sqM); Albumin 2.9 g/dL (3.5-5.0); Alkaline Phosphatase 103 U/L (38-126); Anion Gap 2 mmol/L; Blood Urea Nitrogen 36 mg/dL (9-20); Calcium 8.2 mg/dL (8.4-10.2); Carbon Dioxide 29 mmol/L (22-30); Chloride 106 mmol/L (98-107); Glucose 144 mg/dL (74-99); Non-African American GFR(CKD) >90 (>60 ml/min/1.73 sqM); Potassium 4.2 mmol/L (3.5-5.1); Sodium 137 mmol/L (137-145); Total Protein 6.4 g/dL (6.3-8.2)
[2022-06-27 07:16] LABS: Basophils # (A) 0.2 k/uL (0-0.2); Basophils % (A) 1 %; Eosinophils # (A) 0.3 k/uL (0-0.7); Eosinophils % (A) 1 %; HCT 41.5 % (39.0-53.0); HGB 13.1 gm/dL (13.0-17.5); Lymphocytes # (A) 3.6 k/uL (1.0-4.8); Lymphocytes % (A) 17 %; MCH 31.5 pg (25.0-35.0); MCHC 31.5 g/dL (31.0-37.0); MCV 100.1 fL (80.0-100.0); Macrocytosis Slight; Mean Platelet Volume 9.9; Monocytes # (A) 1.4 k/uL (0-1.0); Monocytes % (A) 7 %; Neutrophils % (A) 72 %; Platelet Count 183 k/uL (150-450); RBC 4.15 m/uL (4.30-5.90); RDW 13.9 % (11.5-15.5); WBC 20.8 k/uL (3.8-10.6)
[2022-06-27] MEDS: IPRATROPIUM-ALBUTEROL 3 ML NEB INHALATION SCH ×4 (07:43→20:28)
--- NOTE | 2022-06-27 07:52 | P.PN ---
Subjective Progress Note Date: 06/27/22 PROGRESS NOTE The patient is a 67-year-old male who presented with change in mental status, had mild troponin elevation. He has a history of hypertension and hyperlipidemia. He is feeling well this morning, hungry. He denies any chest discomfort, dizziness or palpitations. He is in sinus mechanism. He was diagnosed with possible pneumonia. He had evidence of renal injury that improved. There was a question of acute GI bleeding, stable. His echocardiogram showed a normal systolic function with no evidence of segmental wall motion abnormality with mild mitral and tricuspid regurgitation and no evidence of pulmonary hypertension. Medications: Lovenox subcu, losartan HCT 5012-1/2 mg daily, metoprolol succinate 100 mg daily, Kefzol PHYSICAL EXAMINATION: Blood pressure 144/70 heart rate 70 LUNGS: Mild decreased breath sounds bilaterally HEART: Regular rate and rhythm, S1, S2. No S3. No systolic murmur ABDOMEN: Soft, nontender, no organomegaly EXTREMETIES: 1+ bilaterally LAB: Potassium 4.2, BUN 36, creatinine 0.7, white blood cells 20.8 IMPRESSION: 1. Change in mental status improved 2. Sepsis, source unclear 3. Mild troponin elevation related to the infectious processes and the acute kidney injury 4. Acute renal injury improved 5. Hypertension 6. History of hyperlipidemia 7. Acute GI bleed, stable at this time PLAN: 1. Add statin 2. Continue other medications 3. Continue to hold on aspirin pending GI status 4. Depending on his progress further recommendations will be made. Objective - Vital Signs Vital signs: Vital Signs Temp 98.2 F 06/27/22 01:47 Pulse 73 06/27/22 01:47 Resp 22 06/27/22 01:47 BP 144/71 06/27/22 01:47 Pulse Ox 95 06/27/22 01:47 FiO2 Intake & Output 06/26/22 06/27/22 06/27/22 18:59 06:59 18:59 Intake Total 675 600 Output Total 560 600 Balance 115 0 Intake: IV 675 600 LR 675 600 Output: Urine 560 600 Other: Voiding Method Indwelling Catheter Urinal - Labs CBC & Chem 7: 06/27/22 06:11 06/27/22 06:11 Labs: Abnormal Lab Results - Last 24 Hours (Table) 08/07/22 08/07/22 08/07/22 Range/Units 06:51 06:51 12:10 WBC 22.1 H (3.8-10.6) k/uL RBC (4.30-5.90) m/uL MCV (80.0-100.0) fL Neutrophils # (Manual) 15.00 H (1.3-7.7) k/uL Monocytes # (Manual) 3.32 H (0-1.0) k/uL Metamyelocytes # (Man) 0.66 H (0) k/uL Myelocytes # (Manual) 0.22 H (0) k/uL Nucleated RBCs 1 H (0-0) /100 WBC Chloride 109 H (98-107) mmol/L BUN 42 H (9-20) mg/dL Glucose 155 H (74-99) mg/dL POC Glucose (mg/dL) 185 H (70-110) mg/dL Calcium (8.4-10.2) mg/dL AST 82 H (17-59) U/L ALT 65 H (4-49) U/L Albumin 3.0 L (3.5-5.0) g/dL 06/26/22 06/26/22 06/27/22 Range/Units 16:52 20:06 06:07 WBC (3.8-10.6) k/uL RBC (4.30-5.90) m/uL MCV (80.0-100.0) fL Neutrophils # (Manual) (1.3-7.7) k/uL Monocytes # (Manual) (0-1.0) k/uL Metamyelocytes # (Man) (0) k/uL Myelocytes # (Manual) (0) k/uL Nucleated RBCs (0-0) /100 WBC Chloride (98-107) mmol/L BUN (9-20) mg/dL Glucose (74-99) mg/dL POC Glucose (mg/dL) 162 H 169 H 158 H (70-110) mg/dL Calcium (8.4-10.2) mg/dL AST (17-59) U/L ALT (4-49) U/L Albumin (3.5-5.0) g/dL 06/27/22 06/27/22 Range/Units 06:11 06:11 WBC 20.8 H (3.8-10.6) k/uL RBC 4.15 L (4.30-5.90) m/uL MCV 100.1 H (80.0-100.0) fL Neutrophils # (Manual) (1.3-7.7) k/uL Monocytes # (Manual) (0-1.0) k/uL Metamyelocytes # (Man) (0) k/uL Myelocytes # (Manual) (0) k/uL Nucleated RBCs (0-0) /100 WBC Chloride (98-107) mmol/L BUN 36 H (9-20) mg/dL Glucose 144 H (74-99) mg/dL POC Glucose (mg/dL) (70-110) mg/dL Calcium 8.2 L (8.4-10.2) mg/dL AST 79 H (17-59) U/L ALT 62 H (4-49) U/L Albumin 2.9 L (3.5-5.0) g/dL Microbiology - Last 24 Hours (Table) 06/23/22 06:02 Blood Culture - Preliminary Blood No Growth after 72 hours
[2022-06-27] MEDS: PANTOPRAZOLE 40 MG/10 ML VIAL IVP SCH ×2 (07:56→20:27)
[2022-06-27] MEDS: ACETAMINOPHEN TAB 325 MG TAB PO PRN ×3 (07:57→23:45)
[2022-06-27] MEDS: ENOXAPARIN 40 MG/0.4 ML SYRINGE SQ SCH (07:57)
[2022-06-27] MEDS: SIMETHICONE 40 MG/0.6 ML DROPS 2,000 MG/30 ML BOTTLE PO SCH ×4 (07:59→21:34)
[2022-06-27] MEDS: METOPROLOL SUCCINATE (ER) 100 MG TAB.ER.24H PO SCH (07:59)
[2022-06-27] MEDS: LOSARTAN-HCTZ 50-12.5 MG 1 EACH TAB PO SCH (07:59)
[2022-06-27] MEDS ORDERED: NON FORMULARY DRUG (Omeprazole 20 MG Capsule.Dr) PO SCH (09:30)
[2022-06-27] MEDS ORDERED: lisinopriL 20 MG TAB PO SCH (09:30)
[2022-06-27] MEDS: NICOTINE 14MG/24HR PATCH TRANSDERM SCH (09:40)
[2022-06-27] MEDS: ATORVASTATIN 40 MG TAB PO SCH (09:45)
[2022-06-27] MEDS: LEVOTHYROXINE 88 MCG TAB PO SCH (09:49)
[2022-06-27 11:29] LABS: Glucose,Whole Blood 174 mg/dL (70-110)
--- NOTE | 2022-06-27 12:07 | P.PN ---
Subjective Progress Note Date: 06/27/22 CHIEF COMPLAINT: Enteritis HISTORY OF PRESENT ILLNESS: Patient remains in the ICU. Patient had a small b rown bowel movement this morning. Abdomen remains distended. He denies any abdominal pain. Denies any nausea vomiting. NG tube was discontinued yesterday and patient is tolerating small sips of clear liquids. WBC 20.8 Hgb stable at 13 point PHYSICAL EXAM: VITAL SIGNS: Reviewed. GENERAL: Well-developed in no acute distress. ABDOMEN: Soft. Distended. Nontender. ASSESSMENT: 1. Enteritis 2. GI bleed PLAN: -Continue ICU management -Continue supportive care -Continue sips of clears -Increase activity as tolerated Physician Storage Worker note has been reviewed by physician. Signing provider agrees with the documented findings, assessment, and plan of care. I have personally seen and examined the patient, reviewed the HOUSEKEEPING ASSISTANT /PAs history, exam and MDM and agree with the assessment and plan as written. Based on total visit time, I have performed more than 50% of the visit. As above: Patient seems to be doing better. 2 small bowel movements. Nonbloody. Tolerating clear liquids. White blood cell count remains elevated. Gradually advance diet. Will follow. Objective - Vital Signs Vital signs: Vital Signs Temp 98.2 F 06/27/22 08:00 Pulse 72 06/27/22 11:54 Resp 22 06/27/22 08:00 BP 144/71 06/27/22 08:00 Pulse Ox 99 06/27/22 08:00 FiO2 Intake & Output 06/26/22 06/27/22 06/27/22 18:59 06:59 18:59 Intake Total 675 600 Output Total 560 600 Balance 115 0 Intake: IV 675 600 LR 675 600 Output: Urine 560 600 Other: Voiding Method Indwelling Catheter Urinal Urinal - Labs CBC & Chem 7: 06/27/22 06:11 06/27/22 06:11 Labs: Abnormal Lab Results - Last 24 Hours (Table) 06/26/22 06/26/22 06/26/22 Range/Units 12:10 16:52 20:06 WBC (3.8-10.6) k/uL RBC (4.30-5.90) m/uL MCV (80.0-100.0) fL Neutrophils # (1.3-7.7) k/uL Monocytes # (0-1.0) k/uL BUN (9-20) mg/dL Glucose (74-99) mg/dL POC Glucose (mg/dL) 185 H 162 H 169 H (70-110) mg/dL Calcium (8.4-10.2) mg/dL AST (17-59) U/L ALT (4-49) U/L Albumin (3.5-5.0) g/dL 06/27/22 06/27/22 06/27/22 Range/Units 06:07 06:11 06:11 WBC 20.8 H (3.8-10.6) k/uL RBC 4.15 L (4.30-5.90) m/uL MCV 100.1 H (80.0-100.0) fL Neutrophils # 15.0 H (1.3-7.7) k/uL Monocytes # 1.4 H (0-1.0) k/uL BUN 36 H (9-20) mg/dL Glucose 144 H (74-99) mg/dL POC Glucose (mg/dL) 158 H (70-110) mg/dL Calcium 8.2 L (8.4-10.2) mg/dL AST 79 H (17-59) U/L ALT 62 H (4-49) U/L Albumin 2.9 L (3.5-5.0) g/dL 06/27/22 Range/Units 11:27 WBC (3.8-10.6) k/uL RBC (4.30-5.90) m/uL MCV (80.0-100.0) fL Neutrophils # (1.3-7.7) k/uL Monocytes # (0-1.0) k/uL BUN (9-20) mg/dL Glucose (74-99) mg/dL POC Glucose (mg/dL) 174 H (70-110) mg/dL Calcium (8.4-10.2) mg/dL AST (17-59) U/L ALT (4-49) U/L Albumin (3.5-5.0) g/dL Microbiology - Last 24 Hours (Table) 06/23/22 06:02 Blood Culture - Preliminary Blood No Growth after 96 hours
--- NOTE | 2022-06-27 14:00 | P.PN ---
Subjective Progress Note Date: 06/27/22 67-year-old male patient was being seen for follow-up in the intensive care unit. The patient is still in the intensive care unit. On 06/27/2022, the patient is being seen in follow-up. The patient is hemodynamically stable this morning. He is awake and alert and his mentation is improved. The patient is currently off Precedex in [place] that his been off since 06/25/2022. He was bacteremic with Streptococcus group B and the patient is covered with antibiotics. Doing much better. Hemodynamically stable. No signs of a GI bleeding. Acute kidney injury is also recovered. Hyponatremia has recovered. The patient has chronic issues with pain and insomnia. Some of the medication will be resumed. The patient has been on Remeron and trazodone on a somewhat of his medications have been discontinued and outpatient basis and based on that this will not be resumed. His thyroid hormone replacement, needs to be restarted back again. Otherwise, he is weak yet he is feeling well. His a ccompanies of 20.8 and hemoglobin 13.1 and the patient has a platelet count of 183. Sodium is at 137 with a potassium level of 4.2. Will be inserted 30 with a creatinine of 0.7. The pro-calcitonin level was at 1.72. In terms of antibiotic coverage, the patient is currently on IV cefazolin 2 g every 8 hours. Objective - Vital Signs Vital signs: Vital Signs Temp 98.2 F 06/27/22 08:00 Pulse 73 06/27/22 08:00 Resp 22 06/27/22 08:00 BP 144/71 06/27/22 08:00 Pulse Ox 99 06/27/22 08:00 FiO2 Intake & Output 06/26/22 06/27/22 06/27/22 18:59 06:59 18:59 Intake Total 675 600 Output Total 560 600 Balance 115 0 Intake: IV 675 600 LR 675 600 Output: Urine 560 600 Other: Voiding Method Indwelling Catheter Urinal Urinal - Exam GENERAL EXAM: Awake and alert 67-year-old white male, on 2 L of oxygen, comfortable in no apparent distress. HEAD: Normocephalic/atraumatic. EYES: Normal reaction of pupils, equal size. Conjunctiva pink, sclera white. NOSE: Clear with pink turbinates. THROAT: No erythema or exudates. NECK: No masses, no JVD, no thyroid enlargement, no adenopathy. CHEST: No chest wall deformity. Symmetrical expansion. LUNGS: Equal air entry with no crackles, wheeze, rhonchi or dullness. CVS: Regular rate and rhythm, normal S1 and S2, no gallops, no murmurs, no rubs ABDOMEN: Distended, tympanic to percussion, nontender. No hepatosplenomegaly, normal bowel sounds, no guarding or rigidity. EXTREMITIES: No clubbing, no edema, no cyanosis, 2+ pulses and upper and lower e xtremities. MUSCULOSKELETAL: Muscle strength and tone normal. SPINE: No scoliosis or deformity SKIN: No rashes CENTRAL NERVOUS SYSTEM: Sedated, withdraws to painful stimuli. No focal deficits, tone is normal in all 4 extremities - Labs CBC & Chem 7: 06/27/22 06:11 06/27/22 06:11 Labs: Abnormal Lab Results - Last 24 Hours (Table) 06/26/22 06/26/22 06/26/22 Range/Units 12:10 16:52 20:06 WBC (3.8-10.6) k/uL RBC (4.30-5.90) m/uL MCV (80.0-100.0) fL Neutrophils # (1.3-7.7) k/uL Monocytes # (0-1.0) k/uL BUN (9-20) mg/dL Glucose (74-99) mg/dL POC Glucose (mg/dL) 185 H 162 H 169 H (70-110) mg/dL Calcium (8.4-10.2) mg/dL AST (17-59) U/L ALT (4-49) U/L Albumin (3.5-5.0) g/dL 06/27/22 06/27/22 06/27/22 Range/Units 06:07 06:11 06:11 WBC 20.8 H (3.8-10.6) k/uL RBC 4.15 L (4.30-5.90) m/uL MCV 100.1 H (80.0-100.0) fL Neutrophils # 15.0 H (1.3-7.7) k/uL Monocytes # 1.4 H (0-1.0) k/uL BUN 36 H (9-20) mg/dL Glucose 144 H (74-99) mg/dL POC Glucose (mg/dL) 158 H (70-110) mg/dL Calcium 8.2 L (8.4-10.2) mg/dL AST 79 H (17-59) U/L ALT 62 H (4-49) U/L Albumin 2.9 L (3.5-5.0) g/dL Microbiology - Last 24 Hours (Table) 06/23/22 06:02 Blood Culture - Preliminary Blood No Growth after 96 hours Assessment and Plan Plan: Acute mental status changes, unknown etiology, related to sepsis, acute kidney injury. Currently patient is improving, and close to his baseline. Off Precedex on 06/25/2022, AO x3 , no focal neurological deficit and the patient is currently stable for now Sepsis with streptococcal Bacteremia related to strep agalactiae, unknown source, follow blood cultures show no growth, on IV Kefzol Acute GI blood loss anemia, with passing maroon stools starting on 06/23/2022, GI service has been consulted Acute kidney injury related to sepsis, improving Hyponatremia, hypovolemic, resolved Possible urinary tract infection Multiple falls at home History of opiate dependence History of COPD/chronic bronchial asthma, unspecified History of chronic back pain History of anxiety Hypertension Hyperlipidemia Hypothyroidism Plan Clinically stable Continue IV cefazolin BP medication has been adjusted Started patient on levothyroxine Lovenox for prophylaxis Increase mobility Using incentive spirometer We'll continue to follow. Of the chest that out of the intensive care unit today.
[2022-06-27 16:54] LABS: Glucose,Whole Blood 138 mg/dL (70-110)
--- NOTE | 2022-06-27 19:40 | P.PN ---
Subjective Progress Note Date: 06/27/22 Ag Souza, is a 67-year-old male who presented to [facility] emergency room after having a multiple falls at home, has significant mental status changes with somnolence and poor responsiveness, history per his , over the last 24 hours patient has been not feeling well, he fell twice at home, on the second time she was not able to wake him up and get him up from the floor through the bed, she called EMS and he was brought into emergency room. He was evaluated in the emergency room vital examination on presentation revealed a temperature of 97.3 pulse 82 respiration 16 blood pressure 121/67 pulse ox 97% on room air Laboratory data revealed a white blood count of 23.2 hemoglobin 14.4 platelet count 98,000 sodium 129 potassium 4.9 chloride 96 CO2 25 BUN 51 creatinine 2.24 troponin level was 0.02 COVID-19 testing was negative Testing in the emergency room revealed chest x-ray done in the emergency room did not reveal significant abnormality. Patient has a known history of degenerative disc disease with chronic pain maintained on narcotics for pain management he was given Narcan in the emergency room which led to improvement in his mental status. Patient was admitted to medical floor for further evaluation and treatment. On 06/22/2022 patient was seen and examined on the telemetry floor he is still somnolent, agitated, pulling on his IV line, he was started through the night on IV Ativan, vital examination reveals a temperature of 98.4 pulse 132 respiration 24 blood pressure 172/91 pulse ox 96% on 2 L nasal cannula, white blood count is 21.9 hemoglobin 14.8 platelet count 118 d-dimer was elevated at 2.12 at this time will start patient on IV heparin high-intensity for possible pulmonary embolism, his kidney function is still elevated, will defer computed tomography scan this time, he is not cooperative to proceed with VQ scan, will continue with IV fluid, nephrology consultation and infectious disease consultation were requested. On 06/23/2022 patient was seen and examined in the ICU he is more alert and oriented today vital exam reveals a temperature of 98.2 pulse 86 respiration 23 blood pressure 138/79 pulse ox 93% on 2 L nasal cannula white blood count is down to 15.4 hemoglobin 13.2 platelet count 125 kidney function improved with BUN at 66 and creatinine at 0.89 kidney ultrasound was done and revealed no evidence of renal stones or obstruction, CT angiogram of the chest was done and there was no evidence of pulmonary embolism, blood culture were positive for Streptococcus group b , patient is currently maintained on IV Unasyn, IV vanc omycin and IV acyclovir, cardiology, pulmonary, nephrology, neurology and infectious disease are following On 06/24/2022 patient was seen and examined in the ICU he is more alert and oriented today kidney ultrasound was done and revealed no evidence of renal stones or obstruction, CT angiogram of the chest was done and there was no evidence of pulmonary embolism, blood culture were positive for Streptococcus group b , patient is currently maintained on IV Unasyn, IV vancomycin and IV acyclovir, cardiology, pulmonary, nephrology, neurology and infectious disease are following. Patient had a maroon colored stools through the night, GI consultation is not available this week, surgical consultation was requested for evaluation for possible GI bleed On 06/25/2022 patient was seen and examined in the ICU, he is more alert and responsive today, there is no fever or chills no headache or dizziness no chest pain no shortness of breath no cough no nausea or vomiting no abdominal pain no diarrhea and no urinary symptoms. IV heparin has been discontinued, at this time will start subcu Lovenox for DVT prophylaxis, he remains on IV antibiotics cefazolin 2 g IV every 8 hours. On 06/26/2022 patient was seen and examined in the ICU he is alert and oriented 3 in no apparent distress he is complaining of abdominal discomfort otherwise he denies any complaint at this time there is no fever or chills no headache or dizziness no chest pain no shortness of breath no cough no nausea or vomiting no diarrhea no blood in the stools no burning with urination no frequency or urgency and no hematuria. On 06/27/2022 patient was seen and examined on in the ICU he is alert and oriented 3, he is feeling better, he had multiple bowel movements and his abdominal pain has improved, he is still complaining of difficulty sleeping at night otherwise he denies any complaints there is no fever or chills no headache or dizziness no chest pain no shortness of breath no cough no nausea or vomiting no abdominal pain no diarrhea no blood in the stools no burning with urination no frequency or urgency and no hematuria. Objective - Vital Signs Vital signs: Vital Signs Temp 98.0 F 06/27/22 14:00 Pulse 68 06/27/22 15:44 Resp 17 06/27/22 14:00 BP 120/54 06/27/22 14:00 Pulse Ox 95 06/27/22 15:36 FiO2 Intake & Output 06/27/22 06/27/22 06/28/22 06:59 18:59 06:59 Intake Total 600 600 Output Total 600 Balance 0 600 Intake: IV 600 600 LR 600 600 Output: Urine 600 Other: Voiding Method Urinal Urinal # Voids 3 # Bowel Movements 2 - Exam In general patient is alert and responsive in no apparent distress HEENT head normocephalic and atraumatic Neck is supple no JVD no goiter no lymphadenopathy no carotid bruit Chest examination is clear to auscultation no crackles no wheezing Cardiac exam reveals regular heart sounds S1 and S2 no gallops no murmurs Abdomen is soft nontender no organomegaly with normal bowel sounds Extremity exam reveals no edema no cyanosis or clubbing Neurological examination reveals no gross focal deficits - Labs CBC & Chem 7: 06/27/22 06:11 06/27/22 06:11 Labs: Abnormal Lab Results - Last 24 Hours (Table) 06/26/22 06/27/22 06/27/22 Range/Units 20:06 06:07 06:11 WBC 20.8 H (3.8-10.6) k/uL RBC 4.15 L (4.30-5.90) m/uL MCV 100.1 H (80.0-100.0) fL Neutrophils # 15.0 H (1.3-7.7) k/uL Monocytes # 1.4 H (0-1.0) k/uL BUN (9-20) mg/dL Glucose (74-99) mg/dL POC Glucose (mg/dL) 169 H 158 H (70-110) mg/dL Calcium (8.4-10.2) mg/dL AST (17-59) U/L ALT (4-49) U/L Albumin (3.5-5.0) g/dL 06/27/22 06/27/22 06/27/22 Range/Units 06:11 11:27 16:52 WBC (3.8-10.6) k/uL RBC (4.30-5.90) m/uL MCV (80.0-100.0) fL Neutrophils # (1.3-7.7) k/uL Monocytes # (0-1.0) k/uL BUN 36 H (9-20) mg/dL Glucose 144 H (74-99) mg/dL POC Glucose (mg/dL) 174 H 138 H (70-110) mg/dL Calcium 8.2 L (8.4-10.2) mg/dL AST 79 H (17-59) U/L ALT 62 H (4-49) U/L Albumin 2.9 L (3.5-5.0) g/dL Microbiology - Last 24 Hours (Table) 06/23/22 06:02 Blood Culture - Preliminary Blood No Growth after 96 hours Assessment and Plan Plan: Mental status changes, cause is unclear could be related to overdose of narcotic Leukocytosis, no clear source of infection, chest x-ray and urine analysis don't show any clear evidence of infection, patient received IV steroids in the EMS and in the emergency room, will check lactic acid level and monitor CBC Acute exacerbation of COPD with wheezing on presentation, he was started on IV Solu-Medrol in the emergency room, he is on inhaled bronchodilators Evidence of acute kidney injury was elevated BUN and creatinine patient was started on IV fluid at this time Mild elevation in troponin level will monitor Underlying history of hypertension Underlying history of hypothyroidism Underlying history of depression with anxiety disorder Underlying history of vitamin D deficiency Underlying history of degenerative disc disease with chronic back pain maintained on narcotics for pain management Underlying history of gastroesophageal reflux disease At this time patient is admitted to telemetry floor Will check d-dimer check lactic acid recheck CBC and CMP Continue with IV fluid and recheck renal function Consult nephrology
[2022-06-27 20:08] LABS: Glucose,Whole Blood 187 mg/dL (70-110)
[2022-06-27] MEDS: MELATONIN 5 MG TABLET PO SCH (20:27)
[2022-06-27] MEDS: ALPRAZolam 0.5 MG TAB PO SCH (20:27)
[2022-06-27] MEDS ORDERED: traZODone HCL 100 MG TAB PO SCH (21:00)
[2022-06-27] MEDS ORDERED: MIRTAZAPINE 15 MG TAB PO SCH (21:00)
--- NOTE | 2022-06-27 22:22 | P.PN ---
Subjective Progress Note Date: 06/26/22 Principal diagnosis: Bacteremia Patient is a 67 year old male presenting to the hospital in mental status changes and multiple falls did have a low-grade fever and elevated white count now with evidence of bacteremia. On today's evaluation that is 06/26/2022, the patient continuousto be afebrile, the patient is breathing comfortably on nasal cannula oxygen, the fawn ent denies chest pain , the patient did have occasional dry cough , the patient denies abdominal pain no diarrhea Objective - Vital Signs Vital signs: Vital Signs Temp 98 F 06/26/22 19:57 Pulse 77 06/26/22 19:57 Resp 19 06/26/22 19:57 BP 150/70 06/26/22 19:57 Pulse Ox 95 06/26/22 19:57 FiO2 Intake & Output 06/26/22 06/26/22 06/27/22 06:59 18:59 06:59 Intake Total 1000 675 Output Total 535 560 Balance 465 115 Intake: IV 1000 675 LR 900 675 ceFAZolin 2 gm In Sodium 100 Chloride 0.9% 50 ml @ 100 mls/hr IVPB Q8HR [facility] Rx# :[id number] Output: Urine 535 560 Other: Voiding Method Indwelling Catheter Indwelling Catheter - Exam GENERAL DESCRIPTION: An elderly male lying in bed in no distress RESPIRATORY SYSTEM: Unlabored breathing , decreased breath sounds at bases HEART: S1 S2 regular rate and rhythm , ABDOMEN: Soft , no tenderness EXTREMITIES: No edema feet - Labs CBC & Chem 7: 06/27/22 06:11 06/27/22 06:11 Labs: Abnormal Lab Results - Last 24 Hours (Table) 06/26/22 06/26/22 06/26/22 Range/Units 06:51 06:51 07:07 WBC 22.1 H (3.8-10.6) k/uL RBC 4.04 L (4.30-5.90) m/uL Hgb 12.9 L (13.0-17.5) gm/dL Neutrophils # (Manual) 15.00 H (1.3-7.7) k/uL Monocytes # (Manual) 3.32 H (0-1.0) k/uL Metamyelocytes # (Man) 0.66 H (0) k/uL Myelocytes # (Manual) 0.22 H (0) k/uL Nucleated RBCs 1 H (0-0) /100 WBC Chloride 109 H (98-107) mmol/L BUN 42 H (9-20) mg/dL Glucose 155 H (74-99) mg/dL POC Glucose (mg/dL) 140 H (70-110) mg/dL AST 82 H (17-59) U/L ALT 65 H (4-49) U/L Albumin 3.0 L (3.5-5.0) g/dL 06/26/22 06/26/22 06/26/22 Range/Units 12:10 16:52 20:06 WBC (3.8-10.6) k/uL RBC (4.30-5.90) m/uL Hgb (13.0-17.5) gm/dL Neutrophils # (Manual) (1.3-7.7) k/uL Monocytes # (Manual) (0-1.0) k/uL Metamyelocytes # (Man) (0) k/uL Myelocytes # (Manual) (0) k/uL Nucleated RBCs (0-0) /100 WBC Chloride (98-107) mmol/L BUN (9-20) mg/dL Glucose (74-99) mg/dL POC Glucose (mg/dL) 185 H 162 H 169 H (70-110) mg/dL AST (17-59) U/L ALT (4-49) U/L Albumin (3.5-5.0) g/dL Microbiology - Last 24 Hours (Table) 06/23/22 06:02 Blood Culture - Preliminary Blood No Growth after 72 hours Assessment and Plan (1) Bacteremia Current Visit: Yes Status: Acute Code(s): R78.81 - BACTEREMIA SNOMED Code(s): 4796621 Plan: 1patient with sepsis in this patient who did have a fever elevated white count elevated lactic acid now with evidence of gram-positive bacteremia with a source possible aspiration pneumonia as repeat x-ray did showed increasing density left lower lobe as the patient currently do not have any other obvious focus is abdominal soft on clinical examination no evidence of any joint s welling or cellulitis was noticed. 2blood cultures has been finalized as Streptococcus agalactiae, repeated blood culture has been negative so far 3 patient has showed clinical improvement and currently being treated with cefazolin 2 g every 8 hours and monitor clinical course closely Time with Patient: Less than 30
--- NOTE | 2022-06-27 22:23 | P.PN ---
Subjective Progress Note Date: 06/27/22 Principal diagnosis: Bacteremia Patient is a 67 year old male presenting to the hospital in mental status changes and multiple falls did have a low-grade fever and elevated white count now with evidence of bacteremia. On today's evaluation that is 06/27/2022, the patient denies any fever or any chills, the patient is breathing comfortably on nasal cannula oxygen, the patient denies chest pain , the patient did have occasional dry cough , the patient denies nausea no vomiting, no abdominal pain no diarrhea Objective - Vital Signs Vital signs: Vital Signs Temp 98.2 F 06/27/22 08:00 Pulse 72 06/27/22 11:54 Resp 22 06/27/22 08:00 BP 144/71 06/27/22 08:00 Pulse Ox 99 06/27/22 08:00 FiO2 Intake & Output 06/26/22 06/27/22 06/27/22 18:59 06:59 18:59 Intake Total 675 600 Output Total 560 600 Balance 115 0 Intake: IV 675 600 LR 675 600 Output: Urine 560 600 Other: Voiding Method Indwelling Catheter Urinal Urinal - Exam GENERAL DESCRIPTION: An elderly male lying in bed in no distress RESPIRATORY SYSTEM: Unlabored breathing , decreased breath sounds at bases HEART: S1 S2 regular rate and rhythm , ABDOMEN: Soft , no tenderness EXTREMITIES: No edema feet - Labs CBC & Chem 7: 06/27/22 06:11 06/27/22 06:11 Labs: Abnormal Lab Results - Last 24 Hours (Table) 06/26/22 06/26/22 06/27/22 Range/Units 16:52 20:06 06:07 WBC (3.8-10.6) k/uL RBC (4.30-5.90) m/uL MCV (80.0-100.0) fL Neutrophils # (1.3-7.7) k/uL Monocytes # (0-1.0) k/uL BUN (9-20) mg/dL Glucose (74-99) mg/dL POC Glucose (mg/dL) 162 H 169 H 158 H (70-110) mg/dL Calcium (8.4-10.2) mg/dL AST (17-59) U/L ALT (4-49) U/L Albumin (3.5-5.0) g/dL 06/27/22 06/27/22 06/27/22 Range/Units 06:11 06:11 11:27 WBC 20.8 H (3.8-10.6) k/uL RBC 4.15 L (4.30-5.90) m/uL MCV 100.1 H (80.0-100.0) fL Neutrophils # 15.0 H (1.3-7.7) k/uL Monocytes # 1.4 H (0-1.0) k/uL BUN 36 H (9-20) mg/dL Glucose 144 H (74-99) mg/dL POC Glucose (mg/dL) 174 H (70-110) mg/dL Calcium 8.2 L (8.4-10.2) mg/dL AST 79 H (17-59) U/L ALT 62 H (4-49) U/L Albumin 2.9 L (3.5-5.0) g/dL Microbiology - Last 24 Hours (Table) 06/23/22 06:02 Blood Culture - Preliminary Blood No Growth after 96 hours Assessment and Plan (1) Bacteremia Current Visit: Yes Status: Acute Code(s): R78.81 - BACTEREMIA SNOMED Code(s): 5815476 Plan: 1patient with sepsis in this patient who did have a fever elevated white count elevated lactic acid now with evidence of gram-positive bacteremia with a source possible aspiration pneumonia as repeat x-ray did showed increasing density left lower lobe as the patient currently do not have any other obvious focus is abdominal soft on clinical examination no evidence of any joint swelling or cellulitis was noticed. 2blood cultures has been finalized as Streptococcus agalactiae source possible pulmonary less likely abdominal, repeated blood culture has been negative so far 3 patient slowly clinical improvement and will continue with cefazolin 2 g every 8 hours and monitor clinical course closely Time with Patient: Less than 30
[2022-06-28] MEDS: IPRATROPIUM-ALBUTEROL 3 ML NEB INHALATION PRN (01:28)
[2022-06-28] MEDS: LEVOTHYROXINE 88 MCG TAB PO SCH (05:57)
[2022-06-28] MEDS: ACETAMINOPHEN TAB 325 MG TAB PO PRN ×2 (05:57→21:50)
[2022-06-28 06:23] LABS: HCT 40.4 % (39.0-53.0); HGB 12.4 gm/dL (13.0-17.5); Hypochromasia Slight; MCHC 30.8 g/dL (31.0-37.0); MCV 100.7 fL (80.0-100.0); Macrocytosis Slight; Mean Platelet Volume 9.5; Platelet Count 254 k/uL (150-450); RBC 4.01 m/uL (4.30-5.90); RDW 13.6 % (11.5-15.5); WBC 26.2 k/uL (3.8-10.6)
[2022-06-28 06:54] LABS: Potassium 4.7 mmol/L (3.5-5.1)
[2022-06-28 06:55] LABS: Glucose,Whole Blood 169 mg/dL (70-110)
[2022-06-28] MEDS: INSULIN ASPART (NovoLOG) 100 UNIT/ML VIAL SQ SCH ×4 (06:58→21:51)
[2022-06-28] MEDS: IPRATROPIUM-ALBUTEROL 3 ML NEB INHALATION SCH ×4 (07:51→19:09)
--- NOTE | 2022-06-28 08:28 | P.PN ---
Subjective Progress Note Date: 06/28/22 PROGRESS NOTE The patient is a 67-year-old male who presented with change in mental status, had mild troponin elevation. He has a history of hypertension and hyperlipidemia. He is feeling well this morning, hungry. He denies any chest discomfort, dizziness or palpitations. He is in sinus mechanism. He was diagnosed with possible pneumonia. He had evidence of renal injury that improved. There was a question of acute GI bleeding, stable. His echocardiogram showed a normal systolic function with no evidence of segmental wall motion abnormality with mild mitral and tricuspid regurgitation and no evidence of pulmonary hypertension. June 28: The patient was admitted to the hospital change in mental status and evidence of bacteremia. He is awake and alert. In sinus mechanism. He denies any chest discomfort, dizziness or palpitations. His urinary output stable. He started oral medication. He has no further active GI bleeding. There is no evidence of atrial fibrillation. Medications: Lovenox subcu, losartan HCT 5012-1/2 mg daily, metoprolol succinate 100 mg daily, Kefzol PHYSICAL EXAMINATION: Blood pressure 117/53 heart rate 64 LUNGS: Mild decreased breath sounds bilaterally HEART: Regular rate and rhythm, S1, S2. No S3. No systolic murmur ABDOMEN: Soft, nontender, no organomegaly EXTREMETIES: 1+ bilaterally LAB: Potassium 4.7, BUN 53, creatinine 1.33. Hemoglobin 12.4. White Blood cell 26.2. IMPRESSION: 1. Change in mental status improved 2. Sepsis, source unclear, persistent leukocytosis 3. Mild troponin elevation related to the infectious processes and the acute kidney injury 4. Acute renal injury 5. Hypertension 6. History of hyperlipidemia 7. Acute GI bleed, stable at this time PLAN: 1. Stop hydrochlorothiazide 2. Follow renal functions 3. Increase physical activity with physical therapy 4. Depending on his blood pressure trend further adjustment will be made. Objective - Vital Signs Vital signs: Vital Signs Temp 98.1 F 06/28/22 02:00 Pulse 64 06/28/22 08:04 Resp 21 06/28/22 02:00 BP 117/53 06/28/22 02:00 Pulse Ox 97 06/28/22 02:00 FiO2 Intake & Output 06/27/22 06/28/22 06/28/22 18:59 06:59 18:59 Intake Total 600 850 Output Total 200 Balance 600 650 Intake: IV 600 100 LR 600 50 ceFAZolin 2 gm In Sodium 50 Chloride 0.9% 50 ml @ 100 mls/hr IVPB Q8HR [facility] Rx# :[id number] Oral 750 Output: Urine 200 Other: Voiding Method Urinal Urinal # Voids 3 1 # Bowel Movements 2 0 - Labs CBC & Chem 7: 06/28/22 05:40 06/28/22 05:40 Labs: Abnormal Lab Results - Last 24 Hours (Table) 06/27/22 06/27/22 06/27/22 Range/Units 11:27 16:52 20:07 WBC (3.8-10.6) k/uL RBC (4.30-5.90) m/uL Hgb (13.0-17.5) gm/dL MCV (80.0-100.0) fL MCHC (31.0-37.0) g/dL Sodium (137-145) mmol/L BUN (9-20) mg/dL Creatinine (0.66-1.25) mg/dL Glucose (74-99) mg/dL POC Glucose (mg/dL) 174 H 138 H 187 H (70-110) mg/dL Calcium (8.4-10.2) mg/dL 06/28/22 06/28/22 06/28/22 Range/Units 05:40 05:40 06:53 WBC 26.2 H (3.8-10.6) k/uL RBC 4.01 L (4.30-5.90) m/uL Hgb 12.4 L (13.0-17.5) gm/dL MCV 100.7 H (80.0-100.0) fL MCHC 30.8 L (31.0-37.0) g/dL Sodium 134 L (137-145) mmol/L BUN 53 H (9-20) mg/dL Creatinine 1.33 H (0.66-1.25) mg/dL Glucose 125 H (74-99) mg/dL POC Glucose (mg/dL) 169 H (70-110) mg/dL Calcium 8.0 L (8.4-10.2) mg/dL Microbiology - Last 24 Hours (Table) 06/23/22 06:02 Blood Culture - Preliminary Blood No Growth after 120 hours
[2022-06-28] MEDS: METOPROLOL SUCCINATE (ER) 100 MG TAB.ER.24H PO SCH (08:35)
[2022-06-28] MEDS: LOSARTAN 50 MG TAB PO SCH (08:35)
[2022-06-28] MEDS: PANTOPRAZOLE 40 MG/10 ML VIAL IVP SCH ×2 (08:35→21:50)
[2022-06-28] MEDS: SIMETHICONE 40 MG/0.6 ML DROPS 2,000 MG/30 ML BOTTLE PO SCH ×4 (08:35→22:02)
[2022-06-28] MEDS: NICOTINE 14MG/24HR PATCH TRANSDERM SCH (08:35)
[2022-06-28] MEDS: ENOXAPARIN 40 MG/0.4 ML SYRINGE SQ SCH (08:35)
[2022-06-28] MEDS: ATORVASTATIN 40 MG TAB PO SCH (08:35)
--- NOTE | 2022-06-28 10:47 | XR ---
EXAMINATION TYPE: XR abdomen 1V DATE OF EXAM: 06/28/2022 COMPARISON: NONE HISTORY: Pain TECHNIQUE: Single supine KUB image of the abdomen is obtained FINDINGS: Distention of small and large bowel may reflect ileus. No convincing evidence for pneumoperitoneum. No unusual calcifications. The lung bases are clear. The osseous structures are intact. IMPRESSION: 1. Correlate for ileus.
[2022-06-28] MEDS: SODIUM CHLORIDE 0.9% 1,000 ML IV SCH ×2 (10:53→14:36)
[2022-06-28 11:28] LABS: Glucose,Whole Blood 151 mg/dL (70-110)
--- NOTE | 2022-06-28 13:25 | P.PN ---
Subjective Progress Note Date: 06/28/22 67-year-old male patient was being seen for follow-up in the intensive care unit. The patient is still in the intensive care unit. On 06/27/2022, the patient is being seen in follow-up. The patient is hemodynamically stable this morning. He is awake and alert and his mentation is improved. The patient is currently off Precedex in [place] that his been off since 06/25/2022. He was bacteremic with Streptococcus group B and the patient is covered with antibiotics. Doing much better. Hemodynamically stable. No signs of a GI bleeding. Acute kidney injury is also recovered. Hyponatremia has recovered. The patient has chronic issues with pain and insomnia. Some of the medication will be resumed. The patient has been on Remeron and trazodone on a somewhat of his medications have been discontinued and outpatient basis and based on that this will not be resumed. His thyroid hormone replacement, needs to be restarted back again. Otherwise, he is weak yet he is feeling well. His a ccompanies of 20.8 and hemoglobin 13.1 and the patient has a platelet count of 183. Sodium is at 137 with a potassium level of 4.2. Will be inserted 30 with a creatinine of 0.7. The pro-calcitonin level was at 1.72. In terms of antibiotic coverage, the patient is currently on IV cefazolin 2 g every 8 hours. On today's evaluation of 06/28/2022, the patient is having some abdominal distention. The abdominal exam showed some tympany and some mild direct tenderness. The patient is passing some flatus. No significant bowel movement activity. Potassium of the abdomen was done and the patient was found to have distention of the small and large bowel reflecting an ileus. Lung bases were e ssentially clear. The patient is afebrile. The patient's hemodynamically stable. The patient remains on IV antibiotics with IV. The patient had bacteremia and sepsis with Streptococcus group B. On today's evaluation, the white cell count of 26.2 with hemoglobin 12.4 and a platelet count of 254. Creatinine is at 1.2 to be in a 53 and a sodium level of 134. As such, there is a component of an acute kidney injury knowing that the creatinine from yesterday was at 0.7. Meanwhile, the patient remains on DuoNeb nebulized treatments around the clock. The patient remains on IV cefazolin 2 g every 8 hours. IV fluids were restarted back again at the rate of 100 mL an hour and urine output will be monitored. General surgeries on the case regarding abdominal distention/ileus. The overall fluid balance is been +115 mL over the past 24 hours. Objective - Vital Signs Vital signs: Vital Signs Temp 98.1 F 06/28/22 08:00 Pulse 72 06/28/22 11:43 Resp 18 06/28/22 08:00 BP 132/60 06/28/22 08:00 Pulse Ox 96 06/28/22 10:30 FiO2 Intake & Output 06/27/22 06/28/22 06/28/22 18:59 06:59 18:59 Intake Total 600 850 Output Total 200 Balance 600 650 Weight 104.3 kg Intake: IV 600 100 LR 600 50 ceFAZolin 2 gm In Sodium 50 Chloride 0.9% 50 ml @ 100 mls/hr IVPB Q8HR [facility] Rx# :[id number] Oral 750 Output: Urine 200 Other: Voiding Method Urinal Urinal Urinal # Voids 3 1 # Bowel Movements 2 0 - Exam GENERAL EXAM: Awake and alert 67-year-old white male, on 2 L of oxygen, comfortable in no apparent distress. HEAD: Normocephalic/atraumatic. EYES: Normal reaction of pupils, equal size. Conjunctiva pink, sclera white. NOSE: Clear with pink turbinates. THROAT: No erythema or exudates. NECK: No masses, no JVD, no thyroid enlargement, no adenopathy. CHEST: No chest wall deformity. Symmetrical expansion. LUNGS: Equal air entry with no crackles, wheeze, rhonchi or dullness. CVS: Regular rate and rhythm, normal S1 and S2, no gallops, no murmurs, no rubs ABDOMEN: Distended, tympanic to percussion, nontender. No hepatosplenomegaly, normal bowel sounds, no guarding or rigidity. EXTREMITIES: No clubbing, no edema, no cyanosis, 2+ pulses and upper and lower extremities. MUSCULOSKELETAL: Muscle strength and tone normal. SPINE: No scoliosis or deformity SKIN: No rashes CENTRAL NERVOUS SYSTEM: Sedated, withdraws to painful stimuli. No focal deficits, tone is normal in all 4 extremities - Labs CBC & Chem 7: 06/28/22 05:40 06/28/22 05:40 Labs: Abnormal Lab Results - Last 24 Hours (Table) 06/27/22 06/27/22 06/28/22 Range/Units 16:52 20:07 05:40 WBC (3.8-10.6) k/uL RBC (4.30-5.90) m/uL Hgb (13.0-17.5) gm/dL MCV (80.0-100.0) fL MCHC (31.0-37.0) g/dL Sodium 134 L (137-145) mmol/L BUN 53 H (9-20) mg/dL Creatinine 1.33 H (0.66-1.25) mg/dL Glucose 125 H (74-99) mg/dL POC Glucose (mg/dL) 138 H 187 H (70-110) mg/dL Calcium 8.0 L (8.4-10.2) mg/dL 06/28/22 06/28/22 06/28/22 Range/Units 05:40 06:53 11:26 WBC 26.2 H (3.8-10.6) k/uL RBC 4.01 L (4.30-5.90) m/uL Hgb 12.4 L (13.0-17.5) gm/dL MCV 100.7 H (80.0-100.0) fL MCHC 30.8 L (31.0-37.0) g/dL Sodium (137-145) mmol/L BUN (9-20) mg/dL Creatinine (0.66-1.25) mg/dL Glucose (74-99) mg/dL POC Glucose (mg/dL) 169 H 151 H (70-110) mg/dL Calcium (8.4-10.2) mg/dL Microbiology - Last 24 Hours (Table) 06/23/22 06:02 Blood Culture - Preliminary Blood No Growth after 120 hours Assessment and Plan Plan: Acute mental status changes, unknown etiology, related to sepsis, acute kidney injury. Currently patient is improving, and close to his baseline. Off Precedex on 06/25/2022, AO x3 , no focal neurological deficit and the patient is currently stable for now and there has been no significant change in mental status over the past 24 hours Sepsis with streptococcal Bacteremia related to strep agalactiae, unknown source, follow blood cultures show no growth, on IV Kefzol Acute leukocytosis, white cell count remains elevated Abdominal distention/ileus Acute GI blood loss anemia, with passing maroon stools starting on 06/23/2022, GI service has been consulted Acute kidney injury related to sepsis Hyponatremia, hypovolemic, resolved Possible urinary tract infection Multiple falls at home History of opiate dependence History of COPD/chronic bronchial asthma, unspecified History of chronic back pain History of anxiety Hypertension Hyperlipidemia Hypothyroidism Plan Start the patient IV fluids with normal saline drip at 100 mL Monitor urine output Monitor creatinine Continue monitoring the abdominal exam. Abdomen remains distended the patient has a component of ileus and general surgeries on the case Continue IV cefazolin BP medication has been adjusted Started patient on levothyroxine Lovenox for prophylaxis Increase mobility Using incentive spirometer We'll continue to follow. The patient intensive care unit today.
[2022-06-28] MEDS: METOCLOPRAMIDE 5 MG/ML 2 ML VIAL IVP SCH ×2 (13:29→16:53)
--- NOTE | 2022-06-28 13:38 | P.PN ---
Subjective Progress Note Date: 06/28/22 CHIEF COMPLAINT: Enteritis HISTORY OF PRESENT ILLNESS: Patient remains in the ICU. Patient had worsening abdominal distention today. Patient denies any abdominal pain. He does report pressure. Abdominal x-ray was ordered which demonstrated an ileus. Patient reports that he's had small amount of gas. And a smear of a bowel movement. No blood or black reported in the stool. Afebrile. WBC is up at 26.2 HGB 12.4 platelets 254 sodium 134 potassium 4.7 creatinine is 1.33 PHYSICAL EXAM: VITAL SIGNS: Reviewed. GENERAL: Well-developed in no acute distress. ABDOMEN: Distended. Nontender. ASSESSMENT: 1. Enteritis 2. GI bleed 3. Ileus 4. Leukocytosis PLAN: -Downgrade diet to sips of clears -Start Reglan 5 mg IV every 6 scheduled -Continue supportive care -Increase activity as tolerated Physician Pen Maker note has been reviewed by physician. Signing provider agrees with the documented findings, assessment, and plan of care. Patient was somewhat more bloated earlier today. X-ray shows mild small bowel dilation and some air in the stomach as well. Labs noted with increased leukocytosis. Abdomen remains nontender on exam. If leukocytosis worsens or stays elevated would consider interval CT abdomen to evaluate for changes. Objective - Vital Signs Vital signs: Vital Signs Temp 98.1 F 06/28/22 08:00 Pulse 72 06/28/22 11:43 Resp 18 06/28/22 08:00 BP 132/60 06/28/22 08:00 Pulse Ox 96 06/28/22 10:30 FiO2 Intake & Output 06/27/22 06/28/22 06/28/22 18:59 06:59 18:59 Intake Total 600 850 Output Total 200 Balance 600 650 Weight 104.3 kg Intake: IV 600 100 LR 600 50 ceFAZolin 2 gm In Sodium 50 Chloride 0.9% 50 ml @ 100 mls/hr IVPB Q8HR [facility] Rx# :[id number] Oral 750 Output: Urine 200 Other: Voiding Method Urinal Urinal Urinal # Voids 3 1 # Bowel Movements 2 0 - Labs CBC & Chem 7: 06/28/22 05:40 06/28/22 05:40 Labs: Abnormal Lab Results - Last 24 Hours (Table) 06/27/22 06/27/22 06/28/22 Range/Units 16:52 20:07 05:40 WBC (3.8-10.6) k/uL RBC (4.30-5.90) m/uL Hgb (13.0-17.5) gm/dL MCV (80.0-100.0) fL MCHC (31.0-37.0) g/dL Sodium 134 L (137-145) mmol/L BUN 53 H (9-20) mg/dL Creatinine 1.33 H (0.66-1.25) mg/dL Glucose 125 H (74-99) mg/dL POC Glucose (mg/dL) 138 H 187 H (70-110) mg/dL Calcium 8.0 L (8.4-10.2) mg/dL 06/28/22 06/28/22 06/28/22 Range/Units 05:40 06:53 11:26 WBC 26.2 H (3.8-10.6) k/uL RBC 4.01 L (4.30-5.90) m/uL Hgb 12.4 L (13.0-17.5) gm/dL MCV 100.7 H (80.0-100.0) fL MCHC 30.8 L (31.0-37.0) g/dL Sodium (137-145) mmol/L BUN (9-20) mg/dL Creatinine (0.66-1.25) mg/dL Glucose (74-99) mg/dL POC Glucose (mg/dL) 169 H 151 H (70-110) mg/dL Calcium (8.4-10.2) mg/dL Microbiology - Last 24 Hours (Table) 06/23/22 06:02 Blood Culture - Preliminary Blood No Growth after 120 hours
[2022-06-28 16:36] LABS: Glucose,Whole Blood 138 mg/dL (70-110)
[2022-06-28 21:04] LABS: Glucose,Whole Blood 189 mg/dL (70-110)
[2022-06-28] MEDS: MELATONIN 5 MG TABLET PO SCH (21:51)
[2022-06-28] MEDS: ALPRAZolam 0.5 MG TAB PO SCH (21:51)
[2022-06-29] MEDS: METOCLOPRAMIDE 5 MG/ML 2 ML VIAL IVP SCH ×5 (00:03→22:11)
[2022-06-29] MEDS: IPRATROPIUM-ALBUTEROL 3 ML NEB INHALATION PRN (00:21)
[2022-06-29] MEDS: ACETAMINOPHEN IV (For NPO) 1,000 MG in EMPTY BAG 1 BAG IVPB PRN (03:58)
[2022-06-29 07:03] LABS: ALT 44 U/L (4-49); AST 83 U/L (17-59); African American GFR (CKD) 49 (>60 ml/min/1.73 sqM); Albumin 2.8 g/dL (3.5-5.0); Albumin/Globulin Ratio 0.8; Alkaline Phosphatase 115 U/L (38-126); Anion Gap 6 mmol/L; Blood Urea Nitrogen 63 mg/dL (9-20); Calcium 7.8 mg/dL (8.4-10.2); Carbon Dioxide 26 mmol/L (22-30); Chloride 101 mmol/L (98-107); Globulin 3.5 g/dL; Glucose 107 mg/dL (74-99); Non-African American GFR(CKD) 42 (>60 ml/min/1.73 sqM); Potassium 4.7 mmol/L (3.5-5.1); Sodium 133 mmol/L (137-145); Total Bilirubin 0.7 mg/dL (0.2-1.3); Total Protein 6.3 g/dL (6.3-8.2)
[2022-06-29 07:03] LABS: Glucose,Whole Blood 115 mg/dL (70-110)
[2022-06-29] MEDS: INSULIN ASPART (NovoLOG) 100 UNIT/ML VIAL SQ SCH ×4 (07:09→22:13)
[2022-06-29] MEDS: LEVOTHYROXINE 88 MCG TAB PO SCH (07:10)
[2022-06-29] MEDS: IPRATROPIUM-ALBUTEROL 3 ML NEB INHALATION SCH ×4 (08:02→20:56)
--- NOTE | 2022-06-29 09:18 | P.PN ---
Subjective Progress Note Date: 06/28/22 Ag Souza, is a 67-year-old male who presented to [facility] emergency room after having a multiple falls at home, has significant mental status changes with somnolence and poor responsiveness, history per his , over the last 24 hours patient has been not feeling well, he fell twice at home, on the second time she was not able to wake him up and get him up from the floor through the bed, she called EMS and he was brought into emergency room. He was evaluated in the emergency room vital examination on presentation revealed a temperature of 97.3 pulse 82 respiration 16 blood pressure 121/67 pulse ox 97% on room air Laboratory data revealed a white blood count of 23.2 hemoglobin 14.4 platelet count 98,000 sodium 129 potassium 4.9 chloride 96 CO2 25 BUN 51 creatinine 2.24 troponin level was 0.02 COVID-19 testing was negative Testing in the emergency room revealed chest x-ray done in the emergency room did not reveal significant abnormality. Patient has a known history of degenerative disc disease with chronic pain maintained on narcotics for pain management he was given Narcan in the emergency room which led to improvement in his mental status. Patient was admitted to medical floor for further evaluation and treatment. On 06/22/2022 patient was seen and examined on the telemetry floor he is still somnolent, agitated, pulling on his IV line, he was started through the night on IV Ativan, vital examination reveals a temperature of 98.4 pulse 132 respiration 24 blood pressure 172/91 pulse ox 96% on 2 L nasal cannula, white blood count is 21.9 hemoglobin 14.8 platelet count 118 d-dimer was elevated at 2.12 at this time will start patient on IV heparin high-intensity for possible pulmonary embolism, his kidney function is still elevated, will defer computed tomography scan this time, he is not cooperative to proceed with VQ scan, will continue with IV fluid, nephrology consultation and infectious disease consultation were requested. On 06/23/2022 patient was seen and examined in the ICU he is more alert and oriented today vital exam reveals a temperature of 98.2 pulse 86 respiration 23 blood pressure 138/79 pulse ox 93% on 2 L nasal cannula white blood count is down to 15.4 hemoglobin 13.2 platelet count 125 kidney function improved with BUN at 66 and creatinine at 0.89 kidney ultrasound was done and revealed no evidence of renal stones or obstruction, CT angiogram of the chest was done and there was no evidence of pulmonary embolism, blood culture were positive for Streptococcus group b , patient is currently maintained on IV Unasyn, IV vanc omycin and IV acyclovir, cardiology, pulmonary, nephrology, neurology and infectious disease are following On 06/24/2022 patient was seen and examined in the ICU he is more alert and oriented today kidney ultrasound was done and revealed no evidence of renal stones or obstruction, CT angiogram of the chest was done and there was no evidence of pulmonary embolism, blood culture were positive for Streptococcus group b , patient is currently maintained on IV Unasyn, IV vancomycin and IV acyclovir, cardiology, pulmonary, nephrology, neurology and infectious disease are following. Patient had a maroon colored stools through the night, GI consultation is not available this week, surgical consultation was requested for evaluation for possible GI bleed On 06/25/2022 patient was seen and examined in the ICU, he is more alert and responsive today, there is no fever or chills no headache or dizziness no chest pain no shortness of breath no cough no nausea or vomiting no abdominal pain no diarrhea and no urinary symptoms. IV heparin has been discontinued, at this time will start subcu Lovenox for DVT prophylaxis, he remains on IV antibiotics cefazolin 2 g IV every 8 hours. On 06/26/2022 patient was seen and examined in the ICU he is alert and oriented 3 in no apparent distress he is complaining of abdominal discomfort otherwise he denies any complaint at this time there is no fever or chills no headache or dizziness no chest pain no shortness of breath no cough no nausea or vomiting no diarrhea no blood in the stools no burning with urination no frequency or urgency and no hematuria. On 06/27/2022 patient was seen and examined on in the ICU he is alert and oriented 3, he is feeling better, he had multiple bowel movements and his abdominal pain has improved, he is still complaining of difficulty sleeping at night otherwise he denies any complaints there is no fever or chills no headache or dizziness no chest pain no shortness of breath no cough no nausea or vomiting no abdominal pain no diarrhea no blood in the stools no burning with urination no frequency or urgency and no hematuria. On 06/28/2022 patient was seen and examined on the medical floor he is alert and oriented 3 in no distress there is no fever or chills no headache or dizziness no chest pain no shortness of breath no cough no nausea or vomiting no abdominal pain no diarrhea, no blood in the stools no burning with urination no frequency or urgency and no hematuria patient has generalized weakness he is improving gradually will continue to follow closely physical therapy is following Objective - Vital Signs Vital signs: Vital Signs Temp 98.1 F 06/28/22 08:00 Pulse 72 06/28/22 11:43 Resp 18 06/28/22 08:00 BP 132/60 06/28/22 08:00 Pulse Ox 96 06/28/22 10:30 FiO2 Intake & Output 06/27/22 06/28/22 06/28/22 18:59 06:59 18:59 Intake Total 600 850 Output Total 200 Balance 600 650 Weight 104.3 kg Intake: IV 600 100 LR 600 50 ceFAZolin 2 gm In Sodium 50 Chloride 0.9% 50 ml @ 100 mls/hr IVPB Q8HR [facility] Rx# :[id number] Oral 750 Output: Urine 200 Other: Voiding Method Urinal Urinal Urinal # Voids 3 1 # Bowel Movements 2 0 - Exam In general patient is alert and responsive in no apparent distress HEENT head normocephalic and atraumatic Neck is supple no JVD no goiter no lymphadenopathy no carotid bruit Chest examination is clear to auscultation no crackles no wheezing Cardiac exam reveals regular heart sounds S1 and S2 no gallops no murmurs Abdomen is soft nontender no organomegaly with normal bowel sounds Extremity exam reveals no edema no cyanosis or clubbing Neurological examination reveals no gross focal deficits - Labs CBC & Chem 7: 06/28/22 05:40 06/29/22 06:08 Labs: Abnormal Lab Results - Last 24 Hours (Table) 06/27/22 06/27/22 06/28/22 Range/Units 16:52 20:07 05:40 WBC (3.8-10.6) k/uL RBC (4.30-5.90) m/uL Hgb (13.0-17.5) gm/dL MCV (80.0-100.0) fL MCHC (31.0-37.0) g/dL Sodium 134 L (137-145) mmol/L BUN 53 H (9-20) mg/dL Creatinine 1.33 H (0.66-1.25) mg/dL Glucose 125 H (74-99) mg/dL POC Glucose (mg/dL) 138 H 187 H (70-110) mg/dL Calcium 8.0 L (8.4-10.2) mg/dL 06/28/22 06/28/22 06/28/22 Range/Units 05:40 06:53 11:26 WBC 26.2 H (3.8-10.6) k/uL RBC 4.01 L (4.30-5.90) m/uL Hgb 12.4 L (13.0-17.5) gm/dL MCV 100.7 H (80.0-100.0) fL MCHC 30.8 L (31.0-37.0) g/dL Sodium (137-145) mmol/L BUN (9-20) mg/dL Creatinine (0.66-1.25) mg/dL Glucose (74-99) mg/dL POC Glucose (mg/dL) 169 H 151 H (70-110) mg/dL Calcium (8.4-10.2) mg/dL Microbiology - Last 24 Hours (Table) 06/23/22 06:02 Blood Culture - Preliminary Blood No Growth after 120 hours Assessment and Plan Plan: Mental status changes, cause is unclear could be related to overdose of narcotic Leukocytosis, no clear source of infection, chest x-ray and urine analysis don't show any clear evidence of infection, patient received IV steroids in the EMS and in the emergency room, will check lactic acid level and monitor CBC Acute exacerbation of COPD with wheezing on presentation, he was started on IV Solu-Medrol in the emergency room, he is on inhaled bronchodilators Evidence of acute kidney injury was elevated BUN and creatinine patient was started on IV fluid at this time Mild elevation in troponin level will monitor Underlying history of hypertension Underlying history of hypothyroidism Underlying history of depression with anxiety disorder Underlying history of vitamin D deficiency Underlying history of degenerative disc disease with chronic back pain maintained on narcotics for pain management Underlying history of gastroesophageal reflux disease At this time patient is admitted to telemetry floor Will check d-dimer check lactic acid recheck CBC and CMP Continue with IV fluid and recheck renal function Consult nephrology
[2022-06-29] MEDS: NICOTINE 14MG/24HR PATCH TRANSDERM SCH (09:28)
[2022-06-29] MEDS: SIMETHICONE 40 MG/0.6 ML DROPS 2,000 MG/30 ML BOTTLE PO SCH ×4 (09:29→22:13)
[2022-06-29] MEDS: METOPROLOL SUCCINATE (ER) 100 MG TAB.ER.24H PO SCH (09:29)
[2022-06-29] MEDS: ATORVASTATIN 40 MG TAB PO SCH (09:29)
[2022-06-29] MEDS: ENOXAPARIN 40 MG/0.4 ML SYRINGE SQ SCH ×2 (09:29→17:15)
[2022-06-29] MEDS: LOSARTAN 50 MG TAB PO SCH (09:29)
[2022-06-29] MEDS: PANTOPRAZOLE 40 MG/10 ML VIAL IVP SCH ×2 (09:32→22:11)
[2022-06-29 09:47] LABS: HCT 36.6 % (39.6-50.0); HGB 11.6 g/dL (13.0-17.0); MCHC 31.7 g/dL (32.0-37.0); MCV 101.1 fL (80.0-97.0); Mean Platelet Volume 11.4 fL (9.5-12.2); NRBC Per 100 WBC 0.1 /100 WBCS (0.0-0.0); Platelet Count 236 X 10*3/uL (140-440); RBC 3.62 X 10*6/uL (4.40-5.60); RDW 14.2 % (11.5-14.5); WBC 28.55 X 10*3/uL (4.50-10.00)
--- NOTE | 2022-06-29 11:45 | P.PN ---
Subjective Progress Note Date: 06/29/22 The patient is a 67-year-old male who presented with change in mental status, had mild troponin elevation. He has a history of hypertension and hyperlipidemia. Patient is admitted with pneumonia and acute kidney injury, he is found to have bacteremia. There is also question of an acute GI bleed, stable. He is examined today sitting comfortably in the chair in no signs of acute distress. He denies chest pain or increased shortness of breath. There is no more evidence of active GI bleeding. His echocardiogram showed a normal LV and acute AK has been ruled out. Continue with current treatment. Objective - Vital Signs Vital signs: Vital Signs Temp 97.6 F 06/29/22 08:00 Pulse 72 06/29/22 09:30 Resp 18 06/29/22 09:30 BP 129/63 06/29/22 08:00 Pulse Ox 95 06/29/22 08:00 FiO2 Intake & Output 06/28/22 06/29/22 06/29/22 18:59 06:59 18:59 Weight 104.3 kg Other: Voiding Method Urinal # Voids 1 # Bowel Movements 2 1 - Exam PHYSICAL EXAM: VITAL SIGNS: Reviewed. GENERAL: Well-developed in no acute distress. HEENT: Head is normocephalic. Pupils are equal, round. Sclerae anicteric. Mucous membranes of the mouth are moist. NECK: Supple. No JVD or thyromegaly RESPIRATORY: Respirations even and unlabored. Lungs diminished to auscultation bilaterally. CARDIO: Regular rate and rhythm. S1 and S2 heard. No murmur or gallops. EXTREMITIES: Normal range of motion. No clubbing or cyanosis. Peripheral pulses intact. Negative for bilateral lower extremity edema NEURO: Orientated to person, time, mood is appropriate - Labs CBC & Chem 7: 06/29/22 06:08 06/29/22 06:08 Labs: Abnormal Lab Results - Last 24 Hours (Table) 06/28/22 06/28/22 06/29/22 Range/Units 16:35 21:02 06:08 WBC (4.50-10.00) X 10*3/uL RBC (4.40-5.60) X 10*6/uL Hgb (13.0-17.0) g/dL Hct (39.6-50.0) % MCV (80.0-97.0) fL MCHC (32.0-37.0) g/dL Absolute Nucleated RBC (0.00-0.00) X 10*3/uL NRBC/100 WBC Diff (0.0-0.0) /100 WBCS Sodium 133 L (137-145) mmol/L BUN 63 H (9-20) mg/dL Creatinine 1.64 H (0.66-1.25) mg/dL Glucose 107 H (74-99) mg/dL POC Glucose (mg/dL) 138 H 189 H (70-110) mg/dL Calcium 7.8 L (8.4-10.2) mg/dL AST 83 H (17-59) U/L Albumin 2.8 L (3.5-5.0) g/dL 06/29/22 06/29/22 Range/Units 06:08 07:02 WBC 28.55 H (4.50-10.00) X 10*3/uL RBC 3.62 L (4.40-5.60) X 10*6/uL Hgb 11.6 L (13.0-17.0) g/dL Hct 36.6 L (39.6-50.0) % MCV 101.1 H (80.0-97.0) fL MCHC 31.7 L (32.0-37.0) g/dL Absolute Nucleated RBC 0.02 H (0.00-0.00) X 10*3/uL NRBC/100 WBC Diff 0.1 H (0.0-0.0) /100 WBCS Sodium (137-145) mmol/L BUN (9-20) mg/dL Creatinine (0.66-1.25) mg/dL Glucose (74-99) mg/dL POC Glucose (mg/dL) 115 H (70-110) mg/dL Calcium (8.4-10.2) mg/dL AST (17-59) U/L Albumin (3.5-5.0) g/dL Microbiology - Last 24 Hours (Table) 06/23/22 06:02 Blood Culture - Final Blood No Growth after 144 hours Assessment and Plan Assessment: Change in mental status improved Sepsis, source unclear, persistent leukocytosis Mild troponin elevation related to the infectious processes and the acute kidney injury Acute renal injury Hypertension History of hyperlipidemia Acute GI bleed, stable at this time Plan: Continue with current treatment plan continue to follow renal function Further recommendations based on clinical course The above impression and plan of care have been discussed and directed by the signing physician. Karen Lujan, nurse practitioner, acting as scribe for signing physician.
[2022-06-29 11:54] LABS: Glucose,Whole Blood 170 mg/dL (70-110)
[2022-06-29 12:05] LABS: Basophils # (M) 0 X 10*3/uL (0.00-0.10); Eosinophils # (M) 1.14 X 10*3/uL (0.04-0.35); Lymphocytes # (M) 3.14 X 10*3/uL (0.90-5.00); Metamyelocytes % 2 % (0-0); Monocytes # (M) 1.71 X 10*3/uL (0.20-1.00); Myelocytes % 3 % (0-0); Neutrophils # (M) 21.13 X 10*3/uL (2.00-8.90); Neutrophils % (M) 74 %; RBC Morphology NORMAL
--- NOTE | 2022-06-29 12:46 | P.PN ---
Progress Note - Text Progress Note Date: 06/29/22 Patient was downstairs having CAT scan when I rounded on him today. He was seen by my nurse practitioner. Please refer to her note for exam findings. He said he felt somewhat worse than yesterday. He was slightly more distended. He is moving his bowels. White blood cell count increased further to 28,000. CAT scan was repeated and I reviewed these films with radiology just now. The patient has increased abdominal ascites. Again patient with history of suspected cirrhosis. The duodenitis and jejunitis actually seems to be somewhat improved. The patient now has fairly impressively thickened gastric wall. This may be on the basis of ischemia or suction trauma from recent nasogastric tube placement. We'll ask radiology to perform a diagnostic paracentesis to evaluate for bacterial peritonitis. No surgical intervention felt to be helpful at this time. We'll follow closely with you.
--- NOTE | 2022-06-29 12:56 | P.PN ---
Subjective Progress Note Date: 06/29/22 CHIEF COMPLAINT: Enteritis HISTORY OF PRESENT ILLNESS: Patient on regular medical floor. He sitting at b edside chair. Patient has more abdominal distention today. He did report some small bowel movements and flatus. No blood reported in the stools. Patient states that he feels worse today. No nausea or vomiting. Currently on sips of clears. Patient seen by critical care service they have ordered a computed tomography scan of the abdomen and pelvis. Afebrile. WBC 26.2 up to 28.5 hemoglobin 11.6 platelets 236 sodium 133 creatinine is up at 1.64 PHYSICAL EXAM: VITAL SIGNS: Reviewed. GENERAL: Well-developed in no acute distress. ABDOMEN: Abdomen more distended today. Diffuse tenderness. ASSESSMENT: 1. Enteritis 2. GI bleed resolved 3. Ileus 4. Leukocytosis 5. Abdominal distention PLAN: -Make patient nothing by mouth -We'll follow up on computed tomography scan of abdomen and pelvis. Results are pending -Further recommendations forthcoming her surgeon -Continue Reglan 5 mg IV every 6 scheduled -Continue supportive care Physician Minute Clerk note has been reviewed by physician. Signing provider agrees with the documented findings, assessment, and plan of care. Objective - Vital Signs Vital signs: Vital Signs Temp 97.6 F 06/29/22 08:00 Pulse 68 06/29/22 12:38 Resp 18 06/29/22 09:30 BP 129/63 06/29/22 08:00 Pulse Ox 95 06/29/22 08:00 FiO2 Intake & Output 06/28/22 06/29/22 06/29/22 18:59 06:59 18:59 Weight 104.3 kg Other: Voiding Method Urinal # Voids 1 # Bowel Movements 2 1 - Labs CBC & Chem 7: 06/29/22 06:08 06/29/22 06:08 Labs: Abnormal Lab Results - Last 24 Hours (Table) 06/28/22 06/28/22 06/29/22 Range/Units 16:35 21:02 06:08 WBC (4.50-10.00) X 10*3/uL RBC (4.40-5.60) X 10*6/uL Hgb (13.0-17.0) g/dL Hct (39.6-50.0) % MCV (80.0-97.0) fL MCHC (32.0-37.0) g/dL Absolute Nucleated RBC (0.00-0.00) X 10*3/uL Metamyelocytes % (0-0) % Myelocytes % (0-0) % Neutrophils # (Manual) (2.00-8.90) X 10*3/uL Monocytes # (Manual) (0.20-1.00) X 10*3/uL Eosinophils # (Manual) (0.04-0.35) X 10*3/uL NRBC/100 WBC Diff (0.0-0.0) /100 WBCS Sodium 133 L (137-145) mmol/L BUN 63 H (9-20) mg/dL Creatinine 1.64 H (0.66-1.25) mg/dL Glucose 107 H (74-99) mg/dL POC Glucose (mg/dL) 138 H 189 H (70-110) mg/dL Calcium 7.8 L (8.4-10.2) mg/dL AST 83 H (17-59) U/L Albumin 2.8 L (3.5-5.0) g/dL 06/29/22 06/29/22 06/29/22 Range/Units 06:08 07:02 11:48 WBC 28.55 H (4.50-10.00) X 10*3/uL RBC 3.62 L (4.40-5.60) X 10*6/uL Hgb 11.6 L (13.0-17.0) g/dL Hct 36.6 L (39.6-50.0) % MCV 101.1 H (80.0-97.0) fL MCHC 31.7 L (32.0-37.0) g/dL Absolute Nucleated RBC 0.02 H (0.00-0.00) X 10*3/uL Metamyelocytes % 2 H (0-0) % Myelocytes % 3 H (0-0) % Neutrophils # (Manual) 21.13 H (2.00-8.90) X 10*3/uL Monocytes # (Manual) 1.71 H (0.20-1.00) X 10*3/uL Eosinophils # (Manual) 1.14 H (0.04-0.35) X 10*3/uL NRBC/100 WBC Diff 0.1 H (0.0-0.0) /100 WBCS Sodium (137-145) mmol/L BUN (9-20) mg/dL Creatinine (0.66-1.25) mg/dL Glucose (74-99) mg/dL POC Glucose (mg/dL) 115 H 170 H (70-110) mg/dL Calcium (8.4-10.2) mg/dL AST (17-59) U/L Albumin (3.5-5.0) g/dL Microbiology - Last 24 Hours (Table) 06/23/22 06:02 Blood Culture - Final Blood No Growth after 144 hours
--- NOTE | 2022-06-29 13:23 | CT ---
EXAMINATION TYPE: CT abdomen pelvis wo con CT DLP: 1066.4 mGycm, Automated exposure control for dose reduction was used. DATE OF EXAM: 06/29/2022 12:19 PM COMPARISON: CT abdomen pelvis most recent from 06/24/2022 . CLINICAL INDICATION:Male, 67 years old with history of abd pain; TECHNIQUE: Standard CT of the abdomen and pelvis without IV or oral contrast. Lack of IV or oral co ntrast limits evaluation of solid and hollow organ viscera. Coronal and sagittal reformats were perfo rmed. FINDINGS: LOWER CHEST: Trace right pleural effusion with associated atelectasis. ABDOMEN LIVER: Cirrhotic appearance of the liver with nodular contour, widened fissures, and posterior notch sign. No concerning lesion on this unenhanced exam. GALLBLADDER AND BILE DUCTS: Postcholecystectomy. No biliary ductal dilatation. PANCREAS: Unremarkable noncontrast appearance. SPLEEN: Mildly enlarged measuring 14.1 cm increasing in coronal dimension. ADRENAL GLANDS: Unremarkable noncontrast appearance. KIDNEYS AND URETERS: No evidence of hydronephrosis or renal calculus. PELVIS BLADDER: Incompletely distended but grossly unremarkable. REPRODUCTIVE: Coarse calcifications of the prostate gland are identified. ABDOMEN & PELVIS STOMACH AND BOWEL: Small hiatal hernia. Diffusely edematous appearance to the stomach. Colon appears normal caliber without definitive evidence of wall thickening. There is redemonstration of wall thick ening of the small bowel loops in the left lower quadrant evaluation is limited due to lack of IV con trast and surrounding ascites. No pneumatosis or portal venous gas. No evidence of bowel obstruction. PERITONEUM: No evidence of pneumoperitoneum. Increased in size of small to moderate volume ascites. M esenteric edema. VASCULATURE: Moderate atherosclerotic calcifications are present throughout the abdominal aorta and i ts branches. No evidence of aortic aneurysm. There are splenic collaterals. MUSCULOSKELETAL: No acute osseous abnormalities. Mild disc degeneration changes are present throughou t the thoracolumbar spine. LYMPH NODES: No gross evidence for lymphadenopathy. SOFT TISSUE/ABDOMINAL WALL: Mild anasarca. IMPRESSION: 1. Hepatic cirrhosis with portal hypertension with mildly enlarged spleen, perisplenic collaterals, a nd increased small to moderate volume ascites. 2. Redemonstration of circumferential wall thickening of the small bowel in the left lower quadrant. No pneumatosis or portal venous gas. This is most consistent with a nonspecific enteritis with etiolo gies including infectious/inflammatory with ischemia not excluded. 3. New diffusely edematous appearance of the stomach. This may be reactive #1 versus other etiologies .
--- NOTE | 2022-06-29 13:44 | P.PN ---
Subjective Progress Note Date: 06/29/22 Principal diagnosis: Acute mental status changes On 06/24/2022 patient seen in follow-up in the intensive care unit. Patient is sedated, currently on Precedex at 0.5 mics per kilo per hour. He is on Precedex at 5 mg per hour. Lactated Ringer's at 75 ML per hour, remains sedated, very confused. No signs of any respiratory distress, he is on 4 L of oxygen per nasal cannula with pulse ox of 95%, his been afebrile, in sinus mechanism, rate is 79 BPM. His blood pressure is better controlled with Cleviprex infusion. It is currently 141/75. MRI of the brain was completed last night showing no evidence of a recent infarct, mild diffuse age-related cerebral atrophy and ch ronic small vessel ischemic changes. No abnormal enhancement was noted. Today's labs have been reviewed, white blood cell count is 20.0, hemoglobin is 12.7, INR is 1.4, sodium is 134, potassium is 4.8, chloride is 109, BUN is 65 creatinine 0.76. Last night's blood gas was also reviewed showing pO2 of 72, pCO2 of 32, and pH of 7.48. This was done on FiO2 of 32%. CTA chest a few days ago showed no evidence of pulmonary embolism, showed interstitial infiltrate and atelectasis, no suspicious pulmonary mass. EEG showed no focal slowing, epileptiform discharge or seizure. Echocardiogram showed EF of 60-65%. Blood culture showed strep agalactiae, group B. Follow-up blood cultures have shown no growth thus far. ID service is following, patient remains on cefazolin 2 g every 8 hours. Last night patient developed GI bleeding, and passed of a very large maroon-colored stool. Today's hemoglobin is 12.7 which is down from 14 from yesterday, platelet count is 141, INR is 1.4. GI service has been consulted for evaluation. On 06/25/2022 patient seen in follow-up in the intensive care unit, he is much more awake and alert, he is oriented 3, no confusion or agitation, resting comfortably in bed, NG tube has been inserted for abdominal distention yesterday, there has been no gastric output out of it, but abdomen although still distended and seems softer and less distended on today's exam, overnight patient had 5 episodes of small to moderate in size tarry stools. Remains on Protonix 40 mg twice daily, remains nothing by mouth except for ice chips, surgical consultation has been obtained, please refer to the consultation note. He remains on Lexapro rings at a rate of 75 ML per hour. Cleviprex drip has been discontinued however his blood pressure remains elevated this morning and in view of nothing by mouth status will have to be restarted for blood pressure control, he is in sinus mechanism. Denies any shortness of breath or chest pain, lung sounds are clear to auscultation, Precedex has been weaned off since 11:00 yesterday morning. Remains on cefazolin for strep group B and the blood culture, follow blood culture remains negative thus far. Vital signs have been stable. On 06/26/2022 patient seen in follow-up in the intensive care unit, yesterday he had multiple episodes of dark stools, and none on the shift boss. Hemodynamically he remains stable, he is awake and alert, oriented 3, NG tube remains in place to low intermittent suction. Remains on ice chips otherwise nothing by mouth, likely Ringer's at a rate of 75 ML per hour. He is breathing comfortably, denies any chest pain, not on any vasopressor support, in sinus mechanism. Today's hemoglobin is 12.9, white blood cell count was 22.3. BUN is 42, creatinine 0.75. On 06/29/2022 patient seen in follow-up on medical surgical floor. His up in the chair, still complaining of some abdominal distention, he states he was able to pass some gas, and he has been passing bowel movements. Abdomen is soft. he remains on antibiotics cefazolin. Follow blood culture was negative for any growth. Patient has been afebrile, blood pressure is been stable, he denies any pulmonary symptoms. Flat plate of the abdomen showed ileus, Reglan was added. Patient remains on IV fluids at 100 mL an hour with 0.9 normal saline, renal profile is worsening and creatinine is up to 1.64. BUN is 63. Objective - Vital Signs Vital signs: Vital Signs Temp 97.6 F 06/29/22 08:00 Pulse 68 06/29/22 12:38 Resp 18 06/29/22 09:30 BP 129/63 06/29/22 08:00 Pulse Ox 95 06/29/22 08:00 FiO2 Intake & Output 06/28/22 06/29/22 06/29/22 18:59 06:59 18:59 Weight 104.3 kg Other: Voiding Method Urinal # Voids 1 # Bowel Movements 2 1 - Exam GENERAL EXAM: Awake and alert 67-year-old white male, on 4 L of oxygen, comfortable in no apparent distress. HEAD: Normocephalic/atraumatic. EYES: Normal reaction of pupils, equal size. Conjunctiva pink, sclera white. NOSE: Clear with pink turbinates. THROAT: No erythema or exudates. NECK: No masses, no JVD, no thyroid enlargement, no adenopathy. CHEST: No chest wall deformity. Symmetrical expansion. LUNGS: Equal air entry with no crackles, wheeze, rhonchi or dullness. CVS: Regular rate and rhythm, normal S1 and S2, no gallops, no murmurs, no rubs ABDOMEN: Distended, tympanic to percussion, nontender. No hepatosplenomegaly, normal bowel sounds, no guarding or rigidity. EXTREMITIES: No clubbing, no edema, no cyanosis, 2+ pulses and upper and lower extremities. MUSCULOSKELETAL: Muscle strength and tone normal. SPINE: No scoliosis or deformity SKIN: No rashes CENTRAL NERVOUS SYSTEM: Sedated, withdraws to painful stimuli. No focal deficits, tone is normal in all 4 extremities. - Labs CBC & Chem 7: 06/29/22 06:08 06/29/22 06:08 Labs: Abnormal Lab Results - Last 24 Hours (Table) 06/28/22 06/28/22 06/29/22 Range/Units 16:35 21:02 06:08 WBC (4.50-10.00) X 10*3/uL RBC (4.40-5.60) X 10*6/uL Hgb (13.0-17.0) g/dL Hct (39.6-50.0) % MCV (80.0-97.0) fL MCHC (32.0-37.0) g/dL Absolute Nucleated RBC (0.00-0.00) X 10*3/uL Metamyelocytes % (0-0) % Myelocytes % (0-0) % Neutrophils # (Manual) (2.00-8.90) X 10*3/uL Monocytes # (Manual) (0.20-1.00) X 10*3/uL Eosinophils # (Manual) (0.04-0.35) X 10*3/uL NRBC/100 WBC Diff (0.0-0.0) /100 WBCS Sodium 133 L (137-145) mmol/L BUN 63 H (9-20) mg/dL Creatinine 1.64 H (0.66-1.25) mg/dL Glucose 107 H (74-99) mg/dL POC Glucose (mg/dL) 138 H 189 H (70-110) mg/dL Calcium 7.8 L (8.4-10.2) mg/dL AST 83 H (17-59) U/L Albumin 2.8 L (3.5-5.0) g/dL 06/29/22 06/29/22 06/29/22 Range/Units 06:08 07:02 11:48 WBC 28.55 H (4.50-10.00) X 10*3/uL RBC 3.62 L (4.40-5.60) X 10*6/uL Hgb 11.6 L (13.0-17.0) g/dL Hct 36.6 L (39.6-50.0) % MCV 101.1 H (80.0-97.0) fL MCHC 31.7 L (32.0-37.0) g/dL Absolute Nucleated RBC 0.02 H (0.00-0.00) X 10*3/uL Metamyelocytes % 2 H (0-0) % Myelocytes % 3 H (0-0) % Neutrophils # (Manual) 21.13 H (2.00-8.90) X 10*3/uL Monocytes # (Manual) 1.71 H (0.20-1.00) X 10*3/uL Eosinophils # (Manual) 1.14 H (0.04-0.35) X 10*3/uL NRBC/100 WBC Diff 0.1 H (0.0-0.0) /100 WBCS Sodium (137-145) mmol/L BUN (9-20) mg/dL Creatinine (0.66-1.25) mg/dL Glucose (74-99) mg/dL POC Glucose (mg/dL) 115 H 170 H (70-110) mg/dL Calcium (8.4-10.2) mg/dL AST (17-59) U/L Albumin (3.5-5.0) g/dL Microbiology - Last 24 Hours (Table) 06/23/22 06:02 Blood Culture - Final Blood No Growth after 144 hours Assessment and Plan Plan: Assessment: #1. Acute mental status changes, unknown etiology, related to sepsis, acute kidney injury. Currently patient is improving, and close to his baseline. Off Precedex on 06/25/2022 #2. Bacteremia related to strep agalactiae, possibly abdominal source #3. Acute GI blood loss anemia, with passing maroon stools starting on 06/23/2022, GI service has been consulted #4. Acute kidney injury related to sepsis, improved and then worsened again #5. Hyponatremia, hypovolemic #6. Possible urinary tract infection #7. Multiple falls at home #8. History of opiate dependence #9. History of COPD/chronic bronchial asthma, unspecified #10. History of chronic back pain #11. History of anxiety #12. Hypertension #13. Hyperlipidemia Plan: Patient continues to have abdominal distention, and tenderness CT of the abdomen has been ordered, please refer to the report General surgery recommendations Patient is nothing by mouth Continues on antibiotics Follow-up CBC and CMP in the morning I have personally seen and examined the patient and reviewed the documentation. I performed a joint evaluation with the nurse practitioner in this evaluation was done more than 20 minutes. I fully agree with the documentation above and the plan of care. The patient got transferred out of the intensive care unit yesterday. However I'm still concerned about his outcome. He continues to have a distended abdomen. His echoes of the rise and the patient has also developed an acute kidney injury and there is ongoing progressive worsening renal function. We'll discuss the case with general surgery. There may be an underlying ileus. Obtain a CAT scan of the abdomen. Continue to follow. Time with Patient: Less than 30
--- NOTE | 2022-06-29 15:30 | US ---
EXAMINATION TYPE: US abdomen limited DATE OF EXAM: 06/29/2022 COMPARISON: NONE CLINICAL HISTORY: assess for fluid pocket. Exam done portable Ascites seen in abdomen, greater on right side IMPRESSION: 1. Ascites
--- NOTE | 2022-06-29 16:24 | P.PN ---
Subjective Progress Note Date: 06/28/22 Principal diagnosis: Bacteremia Patient is a 67 year old male presenting to the hospital in mental status changes and multiple falls did have a low-grade fever and elevated white count now with evidence of bacteremia. On today's evaluation that is 06/28/2022, the patient remains to be afebrile, the patient is breathing comfortably on nasal cannula oxygen, the patient denies chest pain , patient did have occasional dry cough, the patient denies any nausea vomiting clinical some abdominal distention no diarrhea Objective - Vital Signs Vital signs: Vital Signs Temp 98.1 F 06/28/22 08:00 Pulse 72 06/28/22 11:43 Resp 18 06/28/22 08:00 BP 132/60 06/28/22 08:00 Pulse Ox 96 06/28/22 10:30 FiO2 Intake & Output 06/27/22 06/28/22 06/28/22 18:59 06:59 18:59 Intake Total 600 850 Output Total 200 Balance 600 650 Weight 104.3 kg Intake: IV 600 100 LR 600 50 ceFAZolin 2 gm In Sodium 50 Chloride 0.9% 50 ml @ 100 mls/hr IVPB Q8HR [facility] Rx# :[id number] Oral 750 Output: Urine 200 Other: Voiding Method Urinal Urinal Urinal # Voids 3 1 # Bowel Movements 2 0 - Exam GENERAL DESCRIPTION: An elderly male lying in bed in no distress RESPIRATORY SYSTEM: Unlabored breathing , decreased breath sounds at bases HEART: S1 S2 regular rate and rhythm , ABDOMEN: Soft , no tenderness EXTREMITIES: No edema feet - Labs CBC & Chem 7: 06/29/22 06:08 06/29/22 06:08 Labs: Abnormal Lab Results - Last 24 Hours (Table) 06/27/22 06/27/22 06/28/22 Range/Units 16:52 20:07 05:40 WBC (3.8-10.6) k/uL RBC (4.30-5.90) m/uL Hgb (13.0-17.5) gm/dL MCV (80.0-100.0) fL MCHC (31.0-37.0) g/dL Sodium 134 L (137-145) mmol/L BUN 53 H (9-20) mg/dL Creatinine 1.33 H (0.66-1.25) mg/dL Glucose 125 H (74-99) mg/dL POC Glucose (mg/dL) 138 H 187 H (70-110) mg/dL Calcium 8.0 L (8.4-10.2) mg/dL 06/28/22 06/28/22 06/28/22 Range/Units 05:40 06:53 11:26 WBC 26.2 H (3.8-10.6) k/uL RBC 4.01 L (4.30-5.90) m/uL Hgb 12.4 L (13.0-17.5) gm/dL MCV 100.7 H (80.0-100.0) fL MCHC 30.8 L (31.0-37.0) g/dL Sodium (137-145) mmol/L BUN (9-20) mg/dL Creatinine (0.66-1.25) mg/dL Glucose (74-99) mg/dL POC Glucose (mg/dL) 169 H 151 H (70-110) mg/dL Calcium (8.4-10.2) mg/dL Microbiology - Last 24 Hours (Table) 06/23/22 06:02 Blood Culture - Preliminary Blood No Growth after 120 hours Assessment and Plan (1) Bacteremia Current Visit: Yes Status: Acute Code(s): R78.81 - BACTEREMIA SNOMED Code(s): 8468937 Plan: 1patient with sepsis in this patient who did have a fever elevated white count elevated lactic acid now with evidence of gram-positive bacteremia with a source possible aspiration pneumonia as repeat x-ray did showed increasing density left lower lobe as the patient currently do not have any other obvious focus is abdominal soft on clinical examination no evidence of any joint swelling or cellulitis was noticed. 2blood cultures has been finalized as Streptococcus agalactiae source possible abdominal, repeated blood culture has been negative so far 3 patient to continue with cefazolin 2 g every 8 hours and monitor clinical course closely Time with Patient: Less than 30
--- NOTE | 2022-06-29 16:25 | P.PN ---
Subjective Progress Note Date: 06/29/22 Principal diagnosis: Bacteremia Patient is a 67 year old male presenting to the hospital in mental status changes and multiple falls did have a low-grade fever and elevated white count now with evidence of bacteremia. On today's evaluation that is 06/29/2022, the patient denies any fever or any chills, the patient is breathing comfortably on nasal cannula oxygen, the patient denies chest pain denies cough or sputum production, the patient denies having any nausea or vomiting has been complaining of abdominal distention no diarrhea Objective - Vital Signs Vital signs: Vital Signs Temp 97.6 F 06/29/22 08:00 Pulse 68 06/29/22 12:38 Resp 18 06/29/22 09:30 BP 129/63 06/29/22 08:00 Pulse Ox 95 06/29/22 08:00 FiO2 Intake & Output 06/28/22 06/29/22 06/29/22 18:59 06:59 18:59 Weight 104.3 kg Other: Voiding Method Urinal # Voids 1 # Bowel Movements 2 1 - Exam GENERAL DESCRIPTION: An elderly male lying in bed in no distress RESPIRATORY SYSTEM: Unlabored breathing , decreased breath sounds at bases HEART: S1 S2 regular rate and rhythm , ABDOMEN: Soft , no tenderness EXTREMITIES: No edema feet - Labs CBC & Chem 7: 06/29/22 06:08 06/29/22 06:08 Labs: Abnormal Lab Results - Last 24 Hours (Table) 06/28/22 06/28/22 06/29/22 Range/Units 16:35 21:02 06:08 WBC (4.50-10.00) X 10*3/uL RBC (4.40-5.60) X 10*6/uL Hgb (13.0-17.0) g/dL Hct (39.6-50.0) % MCV (80.0-97.0) fL MCHC (32.0-37.0) g/dL Absolute Nucleated RBC (0.00-0.00) X 10*3/uL Metamyelocytes % (0-0) % Myelocytes % (0-0) % Neutrophils # (Manual) (2.00-8.90) X 10*3/uL Monocytes # (Manual) (0.20-1.00) X 10*3/uL Eosinophils # (Manual) (0.04-0.35) X 10*3/uL NRBC/100 WBC Diff (0.0-0.0) /100 WBCS Sodium 133 L (137-145) mmol/L BUN 63 H (9-20) mg/dL Creatinine 1.64 H (0.66-1.25) mg/dL Glucose 107 H (74-99) mg/dL POC Glucose (mg/dL) 138 H 189 H (70-110) mg/dL Calcium 7.8 L (8.4-10.2) mg/dL AST 83 H (17-59) U/L Albumin 2.8 L (3.5-5.0) g/dL 06/29/22 06/29/22 06/29/22 Range/Units 06:08 07:02 11:48 WBC 28.55 H (4.50-10.00) X 10*3/uL RBC 3.62 L (4.40-5.60) X 10*6/uL Hgb 11.6 L (13.0-17.0) g/dL Hct 36.6 L (39.6-50.0) % MCV 101.1 H (80.0-97.0) fL MCHC 31.7 L (32.0-37.0) g/dL Absolute Nucleated RBC 0.02 H (0.00-0.00) X 10*3/uL Metamyelocytes % 2 H (0-0) % Myelocytes % 3 H (0-0) % Neutrophils # (Manual) 21.13 H (2.00-8.90) X 10*3/uL Monocytes # (Manual) 1.71 H (0.20-1.00) X 10*3/uL Eosinophils # (Manual) 1.14 H (0.04-0.35) X 10*3/uL NRBC/100 WBC Diff 0.1 H (0.0-0.0) /100 WBCS Sodium (137-145) mmol/L BUN (9-20) mg/dL Creatinine (0.66-1.25) mg/dL Glucose (74-99) mg/dL POC Glucose (mg/dL) 115 H 170 H (70-110) mg/dL Calcium (8.4-10.2) mg/dL AST (17-59) U/L Albumin (3.5-5.0) g/dL Microbiology - Last 24 Hours (Table) 06/23/22 06:02 Blood Culture - Final Blood No Growth after 144 hours Assessment and Plan (1) Bacteremia Current Visit: Yes Status: Acute Code(s): R78.81 - BACTEREMIA SNOMED Code(s): 7731045 Plan: 1patient with sepsis in this patient who did have a fever elevated white count elevated lactic acid now with evidence of gram-positive bacteremia with a source possible aspiration pneumonia as repeat x-ray did showed increasing density left lower lobe as the patient currently do not have any other obvious focus is abdominal soft on clinical examination no evidence of any joint swelling or cellulitis was noticed. 2blood cultures has been finalized as Streptococcus agalactiae repeat blood cultures have been negative so far 3-repeat CT with evidence of ascites and possible colitis in the left lower quadrant area 4- patient did have worsening of the white count antibiotic will be switched over to Unasyn and monitor clinical course closely Time with Patient: Less than 30
[2022-06-29 16:27] LABS: Glucose,Whole Blood 94 mg/dL (70-110)
--- NOTE | 2022-06-29 17:16 | P.PN ---
Subjective Progress Note Date: 06/29/22 Ag Souza, is a 67-year-old male who presented to [facility] emergency room after having a multiple falls at home, has significant mental status changes with somnolence and poor responsiveness, history per his , over the last 24 hours patient has been not feeling well, he fell twice at home, on the second time she was not able to wake him up and get him up from the floor through the bed, she called EMS and he was brought into emergency room. He was evaluated in the emergency room vital examination on presentation revealed a temperature of 97.3 pulse 82 respiration 16 blood pressure 121/67 pulse ox 97% on room air Laboratory data revealed a white blood count of 23.2 hemoglobin 14.4 platelet count 98,000 sodium 129 potassium 4.9 chloride 96 CO2 25 BUN 51 creatinine 2.24 troponin level was 0.02 COVID-19 testing was negative Testing in the emergency room revealed chest x-ray done in the emergency room did not reveal significant abnormality. Patient has a known history of degenerative disc disease with chronic pain maintained on narcotics for pain management he was given Narcan in the emergency room which led to improvement in his mental status. Patient was admitted to medical floor for further evaluation and treatment. On 06/22/2022 patient was seen and examined on the telemetry floor he is still somnolent, agitated, pulling on his IV line, he was started through the night on IV Ativan, vital examination reveals a temperature of 98.4 pulse 132 respiration 24 blood pressure 172/91 pulse ox 96% on 2 L nasal cannula, white blood count is 21.9 hemoglobin 14.8 platelet count 118 d-dimer was elevated at 2.12 at this time will start patient on IV heparin high-intensity for possible pulmonary embolism, his kidney function is still elevated, will defer computed tomography scan this time, he is not cooperative to proceed with VQ scan, will continue with IV fluid, nephrology consultation and infectious disease consultation were requested. On 06/23/2022 patient was seen and examined in the ICU he is more alert and oriented today vital exam reveals a temperature of 98.2 pulse 86 respiration 23 blood pressure 138/79 pulse ox 93% on 2 L nasal cannula white blood count is down to 15.4 hemoglobin 13.2 platelet count 125 kidney function improved with BUN at 66 and creatinine at 0.89 kidney ultrasound was done and revealed no evidence of renal stones or obstruction, CT angiogram of the chest was done and there was no evidence of pulmonary embolism, blood culture were positive for Streptococcus group b , patient is currently maintained on IV Unasyn, IV vanc omycin and IV acyclovir, cardiology, pulmonary, nephrology, neurology and infectious disease are following On 06/24/2022 patient was seen and examined in the ICU he is more alert and oriented today kidney ultrasound was done and revealed no evidence of renal stones or obstruction, CT angiogram of the chest was done and there was no evidence of pulmonary embolism, blood culture were positive for Streptococcus group b , patient is currently maintained on IV Unasyn, IV vancomycin and IV acyclovir, cardiology, pulmonary, nephrology, neurology and infectious disease are following. Patient had a maroon colored stools through the night, GI consultation is not available this week, surgical consultation was requested for evaluation for possible GI bleed On 06/25/2022 patient was seen and examined in the ICU, he is more alert and responsive today, there is no fever or chills no headache or dizziness no chest pain no shortness of breath no cough no nausea or vomiting no abdominal pain no diarrhea and no urinary symptoms. IV heparin has been discontinued, at this time will start subcu Lovenox for DVT prophylaxis, he remains on IV antibiotics cefazolin 2 g IV every 8 hours. On 06/26/2022 patient was seen and examined in the ICU he is alert and oriented 3 in no apparent distress he is complaining of abdominal discomfort otherwise he denies any complaint at this time there is no fever or chills no headache or dizziness no chest pain no shortness of breath no cough no nausea or vomiting no diarrhea no blood in the stools no burning with urination no frequency or urgency and no hematuria. On 06/27/2022 patient was seen and examined on in the ICU he is alert and oriented 3, he is feeling better, he had multiple bowel movements and his abdominal pain has improved, he is still complaining of difficulty sleeping at night otherwise he denies any complaints there is no fever or chills no headache or dizziness no chest pain no shortness of breath no cough no nausea or vomiting no abdominal pain no diarrhea no blood in the stools no burning with urination no frequency or urgency and no hematuria. On 06/28/2022 patient was seen and examined on the medical floor he is alert and oriented 3 in no distress there is no fever or chills no headache or dizziness no chest pain no shortness of breath no cough no nausea or vomiting no abdominal pain no diarrhea, no blood in the stools no burning with urination no frequency or urgency and no hematuria patient has generalized weakness he is improving gradually will continue to follow closely physical therapy is following On 06/29/2022 patient was seen and examined on the medical floor he is alert and oriented 3 in no apparent distress there is no fever or chills no headache or dizziness no chest pain no shortness of breath no cough no nausea or vomiting he is complaining of abdominal discomfort with abdominal distention no diarrhea or constipation no blood in the stools no burning with urination no frequency or urgency and no hematuria. At this time patient is scheduled for computed tomography scan of the abdomen and pelvis will continue to monitor closely Objective - Vital Signs Vital signs: Vital Signs Temp 97.6 F 06/29/22 08:00 Pulse 70 06/29/22 08:21 Resp 18 06/29/22 08:00 BP 129/63 06/29/22 08:00 Pulse Ox 95 06/29/22 08:00 FiO2 Intake & Output 06/28/22 06/29/22 06/29/22 18:59 06:59 18:59 Weight 104.3 kg Other: Voiding Method Urinal # Voids 1 # Bowel Movements 2 1 - Exam In general patient is alert and responsive in no apparent distress HEENT head normocephalic and atraumatic Neck is supple no JVD no goiter no lymphadenopathy no carotid bruit Chest examination is clear to auscultation no crackles no wheezing Cardiac exam reveals regular heart sounds S1 and S2 no gallops no murmurs Abdomen is soft nontender no organomegaly with normal bowel sounds Extremity exam reveals no edema no cyanosis or clubbing Neurological examination reveals no gross focal deficits - Labs CBC & Chem 7: 06/29/22 06:08 06/29/22 06:08 Labs: Abnormal Lab Results - Last 24 Hours (Table) 06/28/22 06/28/22 06/28/22 Range/Units 11:26 16:35 21:02 Sodium (137-145) mmol/L BUN (9-20) mg/dL Creatinine (0.66-1.25) mg/dL Glucose (74-99) mg/dL POC Glucose (mg/dL) 151 H 138 H 189 H (70-110) mg/dL Calcium (8.4-10.2) mg/dL AST (17-59) U/L Albumin (3.5-5.0) g/dL 06/29/22 06/29/22 Range/Units 06:08 07:02 Sodium 133 L (137-145) mmol/L BUN 63 H (9-20) mg/dL Creatinine 1.64 H (0.66-1.25) mg/dL Glucose 107 H (74-99) mg/dL POC Glucose (mg/dL) 115 H (70-110) mg/dL Calcium 7.8 L (8.4-10.2) mg/dL AST 83 H (17-59) U/L Albumin 2.8 L (3.5-5.0) g/dL Microbiology - Last 24 Hours (Table) 06/23/22 06:02 Blood Culture - Final Blood No Growth after 144 hours Assessment and Plan Plan: Mental status changes, cause is unclear could be related to overdose of narcotic Leukocytosis, no clear source of infection, chest x-ray and urine analysis don't show any clear evidence of infection, patient received IV steroids in the EMS and in the emergency room, will check lactic acid level and monitor CBC Acute exacerbation of COPD with wheezing on presentation, he was started on IV Solu-Medrol in the emergency room, he is on inhaled bronchodilators Evidence of acute kidney injury was elevated BUN and creatinine patient was started on IV fluid at this time Mild elevation in troponin level will monitor Underlying history of hypertension Underlying history of hypothyroidism Underlying history of depression with anxiety disorder Underlying history of vitamin D deficiency Underlying history of degenerative disc disease with chronic back pain maintained on narcotics for pain management Underlying history of gastroesophageal reflux disease At this time patient is admitted to telemetry floor Will check d-dimer check lactic acid recheck CBC and CMP Continue with IV fluid and recheck renal function Consult nephrology
[2022-06-29] MEDS ORDERED: AMPICILLIN-SULBACTAM 3 GM in SODIUM CHLORIDE 0.9% 100 ML IVPB SCH (18:00)
[2022-06-29 20:16] LABS: Glucose,Whole Blood 152 mg/dL (70-110)
[2022-06-29] MEDS: MELATONIN 5 MG TABLET PO SCH (22:12)
[2022-06-29] MEDS: ALPRAZolam 0.5 MG TAB PO SCH (22:12)
[2022-06-29] MEDS: SODIUM CHLORIDE 0.9% 1,000 ML IV SCH ×2 (22:12→23:01)
[2022-06-29] MEDS: ACETAMINOPHEN TAB 325 MG TAB PO PRN (22:12)
[2022-06-29] MEDS: AMPICILLIN-SULBACTAM 3 GM in SODIUM CHLORIDE 0.9% 100 ML IVPB SCH (23:01)
[2022-06-30] MEDS: IPRATROPIUM-ALBUTEROL 3 ML NEB INHALATION PRN (01:19)
[2022-06-30] MEDS: SODIUM CHLORIDE 0.9% 1,000 ML IV SCH ×2 (02:40→16:24)
[2022-06-30] MEDS: ACETAMINOPHEN TAB 325 MG TAB PO PRN ×3 (05:14→21:54)
[2022-06-30] MEDS: METOCLOPRAMIDE 5 MG/ML 2 ML VIAL IVP SCH ×4 (05:15→21:59)
[2022-06-30] MEDS: LEVOTHYROXINE 88 MCG TAB PO SCH (05:15)
[2022-06-30 07:00] LABS: Glucose,Whole Blood 112 mg/dL (70-110)
[2022-06-30] MEDS: IPRATROPIUM-ALBUTEROL 3 ML NEB INHALATION SCH ×4 (08:14→20:13)
[2022-06-30 09:46] LABS: Albumin 2.8 g/dL (3.8-4.9); Albumin/Globulin Ratio 0.78 (1.60-3.17); Anion Gap 12.4 mmol/L (10.00-18.00); BUN/Creat Ratio 40.12 Ratio (12.00-20.00); Blood Urea Nitrogen 68.2 mg/dL (9.0-27.0); Carbon Dioxide 21.6 mmol/L (20.0-27.5); Globulin 3.6 g/dL (1.6-3.3); Non-African American GFR(CKD) 40.5 (60.0-200.0); Potassium 4.5 mmol/L (3.5-5.5); Total Bilirubin 0.8 mg/dL (0.30-1.20); Total Protein 6.4 g/dL (6.2-8.2)
--- NOTE | 2022-06-30 09:59 | P.PN ---
Subjective Progress Note Date: 06/30/22 The patient is a 67-year-old male who presented with change in mental status, had mild troponin elevation. He has a history of hypertension and hyperlipidemia. Patient is admitted with pneumonia and acute kidney injury, he is found to have bacteremia. There is also question of an acute GI bleed, stable. He is examined today resting comfortably in bed with no signs of acute distress. He denies chest pain or increased shortness of breath. Patient is awaiting paracentesis today. Cultures were negative for any growth. Kidney function continues to worsen creatinine 1.7. Vital signs remained stable. Continue with current treatment. Objective - Vital Signs Vital signs: Vital Signs Temp 96.3 F L 06/30/22 07:59 Pulse 75 06/30/22 08:25 Resp 16 06/30/22 07:59 BP 120/70 06/30/22 07:59 Pulse Ox 94 L 06/30/22 08:14 FiO2 Intake & Output 06/29/22 06/30/22 06/30/22 18:59 06:59 18:59 Intake Total 50 Output Total 3 Balance 50 -3 Intake: IV 50 ceFAZolin 2 gm In Sodium 50 Chloride 0.9% 50 ml @ 100 mls/hr IVPB Q8HR [facility] Rx# :[id number] Output: Urine 1 Stool 2 Other: Voiding Method Urinal # Bowel Movements 2 - Exam PHYSICAL EXAM: VITAL SIGNS: Reviewed. GENERAL: Well-developed in no acute distress. HEENT: Head is normocephalic. Pupils are equal, round. Sclerae anicteric. Mucous membranes of the mouth are moist. NECK: Supple. No JVD or thyromegaly RESPIRATORY: Respirations even and unlabored. Lungs diminished to auscultation bilaterally. CARDIO: Regular rate and rhythm. S1 and S2 heard. No murmur or gallops. EXTREMITIES: Normal range of motion. No clubbing or cyanosis. Peripheral pulses intact. Negative for bilateral lower extremity edema NEURO: Orientated to person, time, mood is appropriate - Labs CBC & Chem 7: 06/29/22 06:08 06/30/22 06:21 Labs: Abnormal Lab Results - Last 24 Hours (Table) 06/29/22 06/29/22 06/29/22 Range/Units 06:08 11:48 20:14 Metamyelocytes % 2 H (0-0) % Myelocytes % 3 H (0-0) % Neutrophils # (Manual) 21.13 H (2.00-8.90) X 10*3/uL Monocytes # (Manual) 1.71 H (0.20-1.00) X 10*3/uL Eosinophils # (Manual) 1.14 H (0.04-0.35) X 10*3/uL Sodium (135-145) mmol/L BUN (9.0-27.0) mg/dL Creatinine (0.6-1.5) mg/dL Est GFR (CKD-EPI)AfAm (60.0-200.0) Est GFR (CKD-EPI)NonAf (60.0-200.0) BUN/Creatinine Ratio (12.00-20.00) Ratio POC Glucose (mg/dL) 170 H 152 H (70-110) mg/dL Calcium (8.7-10.3) mg/dL AST (14-35) U/L Albumin (3.8-4.9) g/dL Globulin (1.6-3.3) g/dL Albumin/Globulin Ratio (1.60-3.17) g/dL 06/30/22 06/30/22 Range/Units 06:21 06:58 Metamyelocytes % (0-0) % Myelocytes % (0-0) % Neutrophils # (Manual) (2.00-8.90) X 10*3/uL Monocytes # (Manual) (0.20-1.00) X 10*3/uL Eosinophils # (Manual) (0.04-0.35) X 10*3/uL Sodium 134 L (135-145) mmol/L BUN 68.2 H (9.0-27.0) mg/dL Creatinine 1.7 H (0.6-1.5) mg/dL Est GFR (CKD-EPI)AfAm 47.0 L (60.0-200.0) Est GFR (CKD-EPI)NonAf 40.5 L (60.0-200.0) BUN/Creatinine Ratio 40.12 H (12.00-20.00) Ratio POC Glucose (mg/dL) 112 H (70-110) mg/dL Calcium 8.0 L (8.7-10.3) mg/dL AST 86 H (14-35) U/L Albumin 2.8 L (3.8-4.9) g/dL Globulin 3.6 H (1.6-3.3) g/dL Albumin/Globulin Ratio 0.78 L (1.60-3.17) g/dL Microbiology - Last 24 Hours (Table) 06/23/22 06:02 Blood Culture - Final Blood No Growth after 144 hours Assessment and Plan Assessment: Change in mental status improved Sepsis, source unclear, persistent leukocytosis Mild troponin elevation related to the infectious processes and the acute kidney injury Acute renal injury Hypertension History of hyperlipidemia Acute GI bleed, stable at this time Plan: Continue with current treatment plan continue to follow renal function Further recommendations based on clinical course The above impression and plan of care have been discussed and directed by the signing physician. Karen Lujan, nurse practitioner, acting as scribe for signing physician.
[2022-06-30 10:51] LABS: Glucose,Whole Blood 123 mg/dL (70-110)
[2022-06-30] MEDS: INSULIN ASPART (NovoLOG) 100 UNIT/ML VIAL SQ SCH ×3 (10:55→21:50)
[2022-06-30] MEDS: NICOTINE 14MG/24HR PATCH TRANSDERM SCH (11:02)
[2022-06-30] MEDS: PANTOPRAZOLE 40 MG/10 ML VIAL IVP SCH ×2 (11:03→21:55)
[2022-06-30] MEDS: LOSARTAN 50 MG TAB PO SCH (11:04)
[2022-06-30] MEDS: ATORVASTATIN 40 MG TAB PO SCH (11:04)
[2022-06-30] MEDS: SIMETHICONE 40 MG/0.6 ML DROPS 2,000 MG/30 ML BOTTLE PO SCH ×4 (11:04→21:56)
[2022-06-30 11:30] LABS: Basophils # (A) 0.02 X 10*3/uL (0.00-0.10); Basophils % (A) 0.1 %; Eosinophils # (A) 0.46 X 10*3/uL (0.04-0.35); Eosinophils % (A) 1.9 %; HCT 37.1 % (39.6-50.0); HGB 12.1 g/dL (13.0-17.0); Lymphocytes # (A) 4.96 X 10*3/uL (0.90-5.00); Lymphocytes % (A) 20.5 %; MCH 31.9 pg (27.0-32.0); MCHC 32.6 g/dL (32.0-37.0); MCV 97.9 fL (80.0-97.0); Mean Platelet Volume 12.4 fL (9.5-12.2); Monocytes # (A) 2.28 X 10*3/uL (0.20-1.00); Monocytes % (A) 9.4 %; NRBC Per 100 WBC 0 /100 WBCS (0.0-0.0); Neutrophils # (A) 15.25 X 10*3/uL (1.80-7.70); Neutrophils % (A) 63.1 %; Platelet Count 268 X 10*3/uL (140-440); RBC 3.79 X 10*6/uL (4.40-5.60); RDW 14.2 % (11.5-14.5); WBC 24.19 X 10*3/uL (4.50-10.00)
[2022-06-30] MEDS: AMPICILLIN-SULBACTAM 3 GM in SODIUM CHLORIDE 0.9% 100 ML IVPB SCH ×2 (11:30→16:19)
[2022-06-30 11:31] LABS: Acanthocytes 2+
[2022-06-30] MEDS: METOPROLOL SUCCINATE (ER) 100 MG TAB.ER.24H PO SCH (11:31)
--- NOTE | 2022-06-30 13:22 | P.PN ---
Subjective Progress Note Date: 06/30/22 CHIEF COMPLAINT: Enteritis HISTORY OF PRESENT ILLNESS: Patient on regular medical floor. He sitting at b edside chair. Patient reports a still having abdominal distention and not feeling well. He is scheduled for paracentesis for aspiration of fluid to check for bacterial peritonitis today. Patient denies any nausea or vomiting. Had 1 bowel movement yesterday. Computed tomography scan abdomen and pelvis hepatic cirrhosis with portal hypertension with mildly enlarged spleen, or splenic collaterals, increased small to moderate volume ascites. Redemonstration of circumferential wall thickening of the small bowel in the left lower quadrant. No pneumatosis or portal venous gas. This is most consistent with nonspecific enteritis with etiologies including infectious/inflammatory with ischemia and included. New diffusely edematous appearance of the stomach. Abdominal ultrasound showing evidence of ascites. Afebrile. WBC down from 28.55-24.19 hemoglobin 12.1 platelets 268 PHYSICAL EXAM: VITAL SIGNS: Reviewed. GENERAL: Well-developed in no acute distress. ABDOMEN: Abdomen distended. Diffuse tenderness. ASSESSMENT: 1. Enteritis 2. GI bleed resolved 3. Ileus 4. Leukocytosis 5. Abdominal distention 6. Suspected cirrhosis history 7. Thickened gastric wall possibly due to ischemia or suction trauma from recent NG tube placement 8. Duodenitis and jejunitis are showing improvement PLAN: -Continue clear liquid diet -Patient scheduled for paracentesis for further evaluation of possible bacterial peritonitis -Further recommendations forthcoming her surgeon -Continue Reglan 5 mg IV every 6 scheduled -Continue supportive care Physician Fermentologist note has been reviewed by physician. Signing provider agrees with the documented findings, assessment, and plan of care. I have personally seen and examined the patient, reviewed the [employer]IST /PAs history, exam and MDM and agree with the assessment and plan as written. Based on total visit time, I have performed more than 50% of the visit. As above: Patient feels better after paracentesis today. Apparently 3 L was removed. Studies are pending on that. His white blood cell count is slightly improved. He is hungry. Will resume diet. Follow paracentesis studies. Objective - Vital Signs Vital signs: Vital Signs Temp 96.3 F L 06/30/22 07:59 Pulse 75 06/30/22 12:29 Resp 16 06/30/22 07:59 BP 120/70 06/30/22 07:59 Pulse Ox 94 L 06/30/22 08:14 FiO2 Intake & Output 06/29/22 06/30/22 06/30/22 18:59 06:59 18:59 Intake Total 50 Output Total 3 Balance 50 -3 Intake: IV 50 ceFAZolin 2 gm In Sodium 50 Chloride 0.9% 50 ml @ 100 mls/hr IVPB Q8HR [facility] Rx# :[id number] Output: Urine 1 Stool 2 Other: Voiding Method Urinal # Bowel Movements 2 - Labs CBC & Chem 7: 06/30/22 06:21 06/30/22 06:21 Labs: Abnormal Lab Results - Last 24 Hours (Table) 06/29/22 06/30/22 06/30/22 Range/Units 20:14 06:21 06:21 WBC 24.19 H (4.50-10.00) X 10*3/uL RBC 3.79 L (4.40-5.60) X 10*6/uL Hgb 12.1 L (13.0-17.0) g/dL Hct 37.1 L (39.6-50.0) % MCV 97.9 H (80.0-97.0) fL MPV 12.4 H (9.5-12.2) fL Immature Gran # 1.22 H (0.00-0.04) X 10*3/uL Neutrophils # 15.25 H (1.80-7.70) X 10*3/uL Monocytes # 2.28 H (0.20-1.00) X 10*3/uL Eosinophils # 0.46 H (0.04-0.35) X 10*3/uL Sodium 134 L (135-145) mmol/L BUN 68.2 H (9.0-27.0) mg/dL Creatinine 1.7 H (0.6-1.5) mg/dL Est GFR (CKD-EPI)AfAm 47.0 L (60.0-200.0) Est GFR (CKD-EPI)NonAf 40.5 L (60.0-200.0) BUN/Creatinine Ratio 40.12 H (12.00-20.00) Ratio POC Glucose (mg/dL) 152 H (70-110) mg/dL Calcium 8.0 L (8.7-10.3) mg/dL AST 86 H (14-35) U/L Albumin 2.8 L (3.8-4.9) g/dL Globulin 3.6 H (1.6-3.3) g/dL Albumin/Globulin Ratio 0.78 L (1.60-3.17) g/dL 06/30/22 06/30/22 Range/Units 06:58 10:50 WBC (4.50-10.00) X 10*3/uL RBC (4.40-5.60) X 10*6/uL Hgb (13.0-17.0) g/dL Hct (39.6-50.0) % MCV (80.0-97.0) fL MPV (9.5-12.2) fL Immature Gran # (0.00-0.04) X 10*3/uL Neutrophils # (1.80-7.70) X 10*3/uL Monocytes # (0.20-1.00) X 10*3/uL Eosinophils # (0.04-0.35) X 10*3/uL Sodium (135-145) mmol/L BUN (9.0-27.0) mg/dL Creatinine (0.6-1.5) mg/dL Est GFR (CKD-EPI)AfAm (60.0-200.0) Est GFR (CKD-EPI)NonAf (60.0-200.0) BUN/Creatinine Ratio (12.00-20.00) Ratio POC Glucose (mg/dL) 112 H 123 H (70-110) mg/dL Calcium (8.7-10.3) mg/dL AST (14-35) U/L Albumin (3.8-4.9) g/dL Globulin (1.6-3.3) g/dL Albumin/Globulin Ratio (1.60-3.17) g/dL
--- NOTE | 2022-06-30 16:04 | P.PN ---
Subjective Progress Note Date: 06/30/22 Principal diagnosis: Acute mental status changes On 06/24/2022 patient seen in follow-up in the intensive care unit. Patient is sedated, currently on Precedex at 0.5 mics per kilo per hour. He is on Precedex at 5 mg per hour. Lactated Ringer's at 75 ML per hour, remains sedated, very confused. No signs of any respiratory distress, he is on 4 L of oxygen per nasal cannula with pulse ox of 95%, his been afebrile, in sinus mechanism, rate is 79 BPM. His blood pressure is better controlled with Cleviprex infusion. It is currently 141/75. MRI of the brain was completed last night showing no evidence of a recent infarct, mild diffuse age-related cerebral atrophy and ch ronic small vessel ischemic changes. No abnormal enhancement was noted. Today's labs have been reviewed, white blood cell count is 20.0, hemoglobin is 12.7, INR is 1.4, sodium is 134, potassium is 4.8, chloride is 109, BUN is 65 creatinine 0.76. Last night's blood gas was also reviewed showing pO2 of 72, pCO2 of 32, and pH of 7.48. This was done on FiO2 of 32%. CTA chest a few days ago showed no evidence of pulmonary embolism, showed interstitial infiltrate and atelectasis, no suspicious pulmonary mass. EEG showed no focal slowing, epileptiform discharge or seizure. Echocardiogram showed EF of 60-65%. Blood culture showed strep agalactiae, group B. Follow-up blood cultures have shown no growth thus far. ID service is following, patient remains on cefazolin 2 g every 8 hours. Last night patient developed GI bleeding, and passed of a very large maroon-colored stool. Today's hemoglobin is 12.7 which is down from 14 from yesterday, platelet count is 141, INR is 1.4. GI service has been consulted for evaluation. On 06/25/2022 patient seen in follow-up in the intensive care unit, he is much more awake and alert, he is oriented 3, no confusion or agitation, resting comfortably in bed, NG tube has been inserted for abdominal distention yesterday, there has been no gastric output out of it, but abdomen although still distended and seems softer and less distended on today's exam, overnight patient had 5 episodes of small to moderate in size tarry stools. Remains on Protonix 40 mg twice daily, remains nothing by mouth except for ice chips, surgical consultation has been obtained, please refer to the consultation note. He remains on Lexapro rings at a rate of 75 ML per hour. Cleviprex drip has been discontinued however his blood pressure remains elevated this morning and in view of nothing by mouth status will have to be restarted for blood pressure control, he is in sinus mechanism. Denies any shortness of breath or chest pain, lung sounds are clear to auscultation, Precedex has been weaned off since 11:00 yesterday morning. Remains on cefazolin for strep group B and the blood culture, follow blood culture remains negative thus far. Vital signs have been stable. On 06/26/2022 patient seen in follow-up in the intensive care unit, yesterday he had multiple episodes of dark stools, and none on the ict trainer. Hemodynamically he remains stable, he is awake and alert, oriented 3, NG tube remains in place to low intermittent suction. Remains on ice chips otherwise nothing by mouth, likely Ringer's at a rate of 75 ML per hour. He is breathing comfortably, denies any chest pain, not on any vasopressor support, in sinus mechanism. Today's hemoglobin is 12.9, white blood cell count was 22.3. BUN is 42, creatinine 0.75. On 06/29/2022 patient seen in follow-up on medical surgical floor. His up in the chair, still complaining of some abdominal distention, he states he was able to pass some gas, and he has been passing bowel movements. Abdomen is soft. he remains on antibiotics cefazolin. Follow blood culture was negative for any growth. Patient has been afebrile, blood pressure is been stable, he denies any pulmonary symptoms. Flat plate of the abdomen showed ileus, Reglan was added. Patient remains on IV fluids at 100 mL an hour with 0.9 normal saline, renal profile is worsening and creatinine is up to 1.64. BUN is 63. on 06/30/2022 patient seen in follow-up on medical surgical floor. He is awake, does not appear to be in any acute distress,denies any difficulty breathing, he remains on 2 L of oxygen the pulse ox of 97%, afebrile, abdomen is slightly tender, but soft, blood pressure stable, patient had CT of the abdomen and pelvis showing small to moderate volume ascites, hepatic cirrhosis with portal hypertension, enlarged spleen, and perisplenic collaterals, and circumferential wall thickening of the small bowel, consistent with nonspecific enteritis, and new diffusely edematous stomach. Surgical services are following. continues on Unasyn, ID service is following. ultrasound of the abdomen was obtained showing ascites. Patient is scheduled for paracentesis this afternoon. Objective - Vital Signs Vital signs: Vital Signs Temp 96.3 F L 06/30/22 07:59 Pulse 71 06/30/22 15:25 Resp 16 06/30/22 07:59 BP 127/62 06/30/22 15:25 Pulse Ox 97 06/30/22 15:25 FiO2 Intake & Output 06/29/22 06/30/22 06/30/22 18:59 06:59 18:59 Intake Total 50 Output Total 3 Balance 50 -3 Intake: IV 50 ceFAZolin 2 gm In Sodium 50 Chloride 0.9% 50 ml @ 100 mls/hr IVPB Q8HR [facility] Rx# :[id number] Output: Urine 1 Stool 2 Other: Voiding Method Urinal # Bowel Movements 2 - Exam GENERAL EXAM: Awake and alert 67-year-old white male, on 2 L of oxygen, comfortable in no apparent distress. HEAD: Normocephalic/atraumatic. EYES: Normal reaction of pupils, equal size. Conjunctiva pink, sclera white. NOSE: Clear with pink turbinates. THROAT: No erythema or exudates. NECK: No masses, no JVD, no thyroid enlargement, no adenopathy. CHEST: No chest wall deformity. Symmetrical expansion. LUNGS: Equal air entry with no crackles, wheeze, rhonchi or dullness. CVS: Regular rate and rhythm, normal S1 and S2, no gallops, no murmurs, no rubs ABDOMEN: Distended, tympanic to percussion, nontender. No hepatosplenomegaly, normal bowel sounds, no guarding or rigidity. EXTREMITIES: No clubbing, no edema, no cyanosis, 2+ pulses and upper and lower extremities. MUSCULOSKELETAL: Muscle strength and tone normal. SPINE: No scoliosis or deformity SKIN: No rashes CENTRAL NERVOUS SYSTEM: Sedated, withdraws to painful stimuli. No focal deficits, tone is normal in all 4 extremities. - Labs CBC & Chem 7: 06/30/22 06:21 06/30/22 06:21 Labs: Abnormal Lab Results - Last 24 Hours (Table) 06/29/22 06/30/22 06/30/22 Range/Units 20:14 06:21 06:21 WBC 24.19 H (4.50-10.00) X 10*3/uL RBC 3.79 L (4.40-5.60) X 10*6/uL Hgb 12.1 L (13.0-17.0) g/dL Hct 37.1 L (39.6-50.0) % MCV 97.9 H (80.0-97.0) fL MPV 12.4 H (9.5-12.2) fL Immature Gran # 1.22 H (0.00-0.04) X 10*3/uL Neutrophils # 15.25 H (1.80-7.70) X 10*3/uL Monocytes # 2.28 H (0.20-1.00) X 10*3/uL Eosinophils # 0.46 H (0.04-0.35) X 10*3/uL Sodium 134 L (135-145) mmol/L BUN 68.2 H (9.0-27.0) mg/dL Creatinine 1.7 H (0.6-1.5) mg/dL Est GFR (CKD-EPI)AfAm 47.0 L (60.0-200.0) Est GFR (CKD-EPI)NonAf 40.5 L (60.0-200.0) BUN/Creatinine Ratio 40.12 H (12.00-20.00) Ratio POC Glucose (mg/dL) 152 H (70-110) mg/dL Calcium 8.0 L (8.7-10.3) mg/dL AST 86 H (14-35) U/L Albumin 2.8 L (3.8-4.9) g/dL Globulin 3.6 H (1.6-3.3) g/dL Albumin/Globulin Ratio 0.78 L (1.60-3.17) g/dL 06/30/22 06/30/22 Range/Units 06:58 10:50 WBC (4.50-10.00) X 10*3/uL RBC (4.40-5.60) X 10*6/uL Hgb (13.0-17.0) g/dL Hct (39.6-50.0) % MCV (80.0-97.0) fL MPV (9.5-12.2) fL Immature Gran # (0.00-0.04) X 10*3/uL Neutrophils # (1.80-7.70) X 10*3/uL Monocytes # (0.20-1.00) X 10*3/uL Eosinophils # (0.04-0.35) X 10*3/uL Sodium (135-145) mmol/L BUN (9.0-27.0) mg/dL Creatinine (0.6-1.5) mg/dL Est GFR (CKD-EPI)AfAm (60.0-200.0) Est GFR (CKD-EPI)NonAf (60.0-200.0) BUN/Creatinine Ratio (12.00-20.00) Ratio POC Glucose (mg/dL) 112 H 123 H (70-110) mg/dL Calcium (8.7-10.3) mg/dL AST (14-35) U/L Albumin (3.8-4.9) g/dL Globulin (1.6-3.3) g/dL Albumin/Globulin Ratio (1.60-3.17) g/dL Assessment and Plan Plan: Assessment: #1. Acute mental status changes, unknown etiology, related to sepsis, acute kidney injury. Currently patient is improving, and close to his baseline. Off Precedex on 06/25/2022 #2. Bacteremia related to strep agalactiae, possibly abdominal source #3. Acute GI blood loss anemia, with passing maroon stools starting on 06/23/2022, GI service has been consulted #4. Acute kidney injury related to sepsis, improved and then worsened again #5. Hyponatremia, hypovolemic #6. Possible urinary tract infection #7. Multiple falls at home #8. History of opiate dependence #9. History of COPD/chronic bronchial asthma, unspecified #10. History of chronic back pain #11. History of anxiety #12. Hypertension #13. Hyperlipidemia #14. Abdominal ascites, for paracentesis this afternoon Plan: Patient denies any respiratory difficulty Today's labs have been noted, his kidney function is relatively stable, nephrology is on the case Vital signs are stable, patient is going for paracentesis this afternoon General surgeries on the case, and ascites fluid will be sent for analysis I have personally seen and examined the patient, performed the documentation and the assessment and plan as written. Number of minutes spent on the visit: [15] I have personally seen and examined the patient and reviewed the documentation. I performed a joint evaluation with the nurse practitioner in this evaluation was done more than 20 minutes. I fully agree with the documentation above and the plan of care. The patient is experiencing shortness of breath. The patient is also expressing abdominal distention. CAT scan of the abdomen showed some ileus and ascites. Ultrasound the abdomen also showed presence of ascites. The patient is going to undergo a paracentesis for symptomatic relief and diagnostic purposes. The white cell count was elevated at 24.1. The patient continues to be an acute kidney injury in the creatinine remains at 1.7. Time with Patient: Less than 30
[2022-06-30 16:50] LABS: Glucose,Whole Blood 168 mg/dL (70-110)
[2022-06-30] MEDS ORDERED: FUROSEMIDE 10 MG/ML 2 ML VIAL IV ONE (17:02)
--- NOTE | 2022-06-30 17:49 | P.PN ---
Subjective Progress Note Date: 06/30/22 Ag Souza, is a 67-year-old male who presented to [facility] emergency room after having a multiple falls at home, has significant mental status changes with somnolence and poor responsiveness, history per his , over the last 24 hours patient has been not feeling well, he fell twice at home, on the second time she was not able to wake him up and get him up from the floor through the bed, she called EMS and he was brought into emergency room. He was evaluated in the emergency room vital examination on presentation revealed a temperature of 97.3 pulse 82 respiration 16 blood pressure 121/67 pulse ox 97% on room air Laboratory data revealed a white blood count of 23.2 hemoglobin 14.4 platelet count 98,000 sodium 129 potassium 4.9 chloride 96 CO2 25 BUN 51 creatinine 2.24 troponin level was 0.02 COVID-19 testing was negative Testing in the emergency room revealed chest x-ray done in the emergency room did not reveal significant abnormality. Patient has a known history of degenerative disc disease with chronic pain maintained on narcotics for pain management he was given Narcan in the emergency room which led to improvement in his mental status. Patient was admitted to medical floor for further evaluation and treatment. On 06/22/2022 patient was seen and examined on the telemetry floor he is still somnolent, agitated, pulling on his IV line, he was started through the night on IV Ativan, vital examination reveals a temperature of 98.4 pulse 132 respiration 24 blood pressure 172/91 pulse ox 96% on 2 L nasal cannula, white blood count is 21.9 hemoglobin 14.8 platelet count 118 d-dimer was elevated at 2.12 at this time will start patient on IV heparin high-intensity for possible pulmonary embolism, his kidney function is still elevated, will defer computed tomography scan this time, he is not cooperative to proceed with VQ scan, will continue with IV fluid, nephrology consultation and infectious disease consultation were requested. On 06/23/2022 patient was seen and examined in the ICU he is more alert and oriented today vital exam reveals a temperature of 98.2 pulse 86 respiration 23 blood pressure 138/79 pulse ox 93% on 2 L nasal cannula white blood count is down to 15.4 hemoglobin 13.2 platelet count 125 kidney function improved with BUN at 66 and creatinine at 0.89 kidney ultrasound was done and revealed no evidence of renal stones or obstruction, CT angiogram of the chest was done and there was no evidence of pulmonary embolism, blood culture were positive for Streptococcus group b , patient is currently maintained on IV Unasyn, IV vanc omycin and IV acyclovir, cardiology, pulmonary, nephrology, neurology and infectious disease are following On 06/24/2022 patient was seen and examined in the ICU he is more alert and oriented today kidney ultrasound was done and revealed no evidence of renal stones or obstruction, CT angiogram of the chest was done and there was no evidence of pulmonary embolism, blood culture were positive for Streptococcus group b , patient is currently maintained on IV Unasyn, IV vancomycin and IV acyclovir, cardiology, pulmonary, nephrology, neurology and infectious disease are following. Patient had a maroon colored stools through the night, GI consultation is not available this week, surgical consultation was requested for evaluation for possible GI bleed On 06/25/2022 patient was seen and examined in the ICU, he is more alert and responsive today, there is no fever or chills no headache or dizziness no chest pain no shortness of breath no cough no nausea or vomiting no abdominal pain no diarrhea and no urinary symptoms. IV heparin has been discontinued, at this time will start subcu Lovenox for DVT prophylaxis, he remains on IV antibiotics cefazolin 2 g IV every 8 hours. On 06/26/2022 patient was seen and examined in the ICU he is alert and oriented 3 in no apparent distress he is complaining of abdominal discomfort otherwise he denies any complaint at this time there is no fever or chills no headache or dizziness no chest pain no shortness of breath no cough no nausea or vomiting no diarrhea no blood in the stools no burning with urination no frequency or urgency and no hematuria. On 06/27/2022 patient was seen and examined on in the ICU he is alert and oriented 3, he is feeling better, he had multiple bowel movements and his abdominal pain has improved, he is still complaining of difficulty sleeping at night otherwise he denies any complaints there is no fever or chills no headache or dizziness no chest pain no shortness of breath no cough no nausea or vomiting no abdominal pain no diarrhea no blood in the stools no burning with urination no frequency or urgency and no hematuria. On 06/28/2022 patient was seen and examined on the medical floor he is alert and oriented 3 in no distress there is no fever or chills no headache or dizziness no chest pain no shortness of breath no cough no nausea or vomiting no abdominal pain no diarrhea, no blood in the stools no burning with urination no frequency or urgency and no hematuria patient has generalized weakness he is improving gradually will continue to follow closely physical therapy is following On 06/29/2022 patient was seen and examined on the medical floor he is alert and oriented 3 in no apparent distress there is no fever or chills no headache or dizziness no chest pain no shortness of breath no cough no nausea or vomiting he is complaining of abdominal discomfort with abdominal distention no diarrhea or constipation no blood in the stools no burning with urination no frequency or urgency and no hematuria. At this time patient is scheduled for computed tomography scan of the abdomen and pelvis will continue to monitor closely. On 06/30/2022 patient was seen and examined on the telemetry floor he is alert and oriented 3 in no apparent distress he is complaining now of severe neck gina n and back pain and requesting [place], patient underwent paracentesis today, 3.5 L of fluid were removed, otherwise patient denies any other symptoms there is no fever or chills no headache or dizziness no chest pain no shortness of breath no cough no nausea or vomiting no abdominal pain no diarrhea and no urinary symptoms Objective - Vital Signs Vital signs: Vital Signs Temp 96.3 F L 06/30/22 07:59 Pulse 75 06/30/22 08:25 Resp 16 06/30/22 07:59 BP 120/70 06/30/22 07:59 Pulse Ox 94 L 06/30/22 08:14 FiO2 Intake & Output 06/29/22 06/30/22 06/30/22 18:59 06:59 18:59 Intake Total 50 Output Total 3 Balance 50 -3 Intake: IV 50 ceFAZolin 2 gm In Sodium 50 Chloride 0.9% 50 ml @ 100 mls/hr IVPB Q8HR [facility] Rx# :[id number] Output: Urine 1 Stool 2 Other: Voiding Method Urinal # Bowel Movements 2 - Exam In general patient is alert and responsive in no apparent distress HEENT head normocephalic and atraumatic Neck is supple no JVD no goiter no lymphadenopathy no carotid bruit Chest examination is clear to auscultation no crackles no wheezing Cardiac exam reveals regular heart sounds S1 and S2 no gallops no murmurs Abdomen is soft nontender no organomegaly with normal bowel sounds Extremity exam reveals no edema no cyanosis or clubbing Neurological examination reveals no gross focal deficits - Labs CBC & Chem 7: 06/30/22 06:21 06/30/22 06:21 Labs: Abnormal Lab Results - Last 24 Hours (Table) 06/29/22 06/29/22 06/29/22 Range/Units 06:08 11:48 20:14 Metamyelocytes % 2 H (0-0) % Myelocytes % 3 H (0-0) % Neutrophils # (Manual) 21.13 H (2.00-8.90) X 10*3/uL Monocytes # (Manual) 1.71 H (0.20-1.00) X 10*3/uL Eosinophils # (Manual) 1.14 H (0.04-0.35) X 10*3/uL Sodium (135-145) mmol/L BUN (9.0-27.0) mg/dL Creatinine (0.6-1.5) mg/dL Est GFR (CKD-EPI)AfAm (60.0-200.0) Est GFR (CKD-EPI)NonAf (60.0-200.0) BUN/Creatinine Ratio (12.00-20.00) Ratio POC Glucose (mg/dL) 170 H 152 H (70-110) mg/dL Calcium (8.7-10.3) mg/dL AST (14-35) U/L Albumin (3.8-4.9) g/dL Globulin (1.6-3.3) g/dL Albumin/Globulin Ratio (1.60-3.17) g/dL 06/30/22 06/30/22 Range/Units 06:21 06:58 Metamyelocytes % (0-0) % Myelocytes % (0-0) % Neutrophils # (Manual) (2.00-8.90) X 10*3/uL Monocytes # (Manual) (0.20-1.00) X 10*3/uL Eosinophils # (Manual) (0.04-0.35) X 10*3/uL Sodium 134 L (135-145) mmol/L BUN 68.2 H (9.0-27.0) mg/dL Creatinine 1.7 H (0.6-1.5) mg/dL Est GFR (CKD-EPI)AfAm 47.0 L (60.0-200.0) Est GFR (CKD-EPI)NonAf 40.5 L (60.0-200.0) BUN/Creatinine Ratio 40.12 H (12.00-20.00) Ratio POC Glucose (mg/dL) 112 H (70-110) mg/dL Calcium 8.0 L (8.7-10.3) mg/dL AST 86 H (14-35) U/L Albumin 2.8 L (3.8-4.9) g/dL Globulin 3.6 H (1.6-3.3) g/dL Albumin/Globulin Ratio 0.78 L (1.60-3.17) g/dL Microbiology - Last 24 Hours (Table) 06/23/22 06:02 Blood Culture - Final Blood No Growth after 144 hours Assessment and Plan Plan: Mental status changes, cause is unclear could be related to overdose of narcotic Leukocytosis, no clear source of infection, chest x-ray and urine analysis don't show any clear evidence of infection, patient received IV steroids in the EMS and in the emergency room, will check lactic acid level and monitor CBC Acute exacerbation of COPD with wheezing on presentation, he was started on IV Solu-Medrol in the emergency room, he is on inhaled bronchodilators Evidence of acute kidney injury was elevated BUN and creatinine patient was started on IV fluid at this time Mild elevation in troponin level will monitor Underlying history of hypertension Underlying history of hypothyroidism Underlying history of depression with anxiety disorder Underlying history of vitamin D deficiency Underlying history of degenerative disc disease with chronic back pain maintaine d on narcotics for pain management Underlying history of gastroesophageal reflux disease At this time patient is admitted to telemetry floor Will check d-dimer check lactic acid recheck CBC and CMP Continue with IV fluid and recheck renal function Consult nephrology
[2022-06-30 21:42] LABS: Glucose,Whole Blood 147 mg/dL (70-110)
[2022-06-30] MEDS: ALPRAZolam 0.5 MG TAB PO SCH (21:54)
[2022-06-30] MEDS: MELATONIN 5 MG TABLET PO SCH (21:55)
[2022-06-30 22:50] LABS: Glucose, BF Source Ascites; Glucose, Body Fluid 155 mg/dL; LDH, Body Fluid Source Ascites; T. Protein, Body Fluid Source Ascites; Total Protein, Body Fluid 273 mg/dL
[2022-06-30] MEDS: HYDROcodone/APAP 5-325MG 1 EACH TAB PO PRN (23:07)
[2022-06-30 23:08] LABS: Appearance,BF Clear
[2022-07-01] MEDS: AMPICILLIN-SULBACTAM 3 GM in SODIUM CHLORIDE 0.9% 100 ML IVPB SCH ×3 (02:17→17:33)
[2022-07-01] MEDS: LORazepam 1 MG/0.5 ML VIAL IV PRN ×2 (03:00→06:03)
[2022-07-01] MEDS: SODIUM CHLORIDE 0.9% 1,000 ML IV SCH ×3 (05:38→18:14)
[2022-07-01] MEDS: LEVOTHYROXINE 88 MCG TAB PO SCH (06:05)
[2022-07-01] MEDS: METOCLOPRAMIDE 5 MG/ML 2 ML VIAL IVP SCH ×3 (06:05→20:32)
[2022-07-01] MEDS: HYDROcodone/APAP 5-325MG 1 EACH TAB PO PRN ×4 (06:08→23:09)
[2022-07-01 06:54] LABS: Glucose,Whole Blood 167 mg/dL (70-110)
--- NOTE | 2022-07-01 08:14 | P.PN ---
Subjective Progress Note Date: 06/30/22 Principal diagnosis: Bacteremia Patient is a 67 year old male presenting to the hospital in mental status changes and multiple falls did have a low-grade fever and elevated white count now with evidence of bacteremia. On today's evaluation that is 06/30/2022, the patient remains to be afebrile, the patient is breathing comfortably on nasal cannula oxygen, the patient denies chest pain denies cough or sputum production, the patient did have some nausea but no vomiting, the patient has been complaining of abdominal distention however no diarrhea reported by the nursing staff Objective - Vital Signs Vital signs: Vital Signs Temp 96.3 F L 06/30/22 07:59 Pulse 75 06/30/22 12:29 Resp 16 06/30/22 07:59 BP 120/70 06/30/22 07:59 Pulse Ox 94 L 06/30/22 08:14 FiO2 Intake & Output 06/29/22 06/30/22 06/30/22 18:59 06:59 18:59 Intake Total 50 Output Total 3 Balance 50 -3 Intake: IV 50 ceFAZolin 2 gm In Sodium 50 Chloride 0.9% 50 ml @ 100 mls/hr IVPB Q8HR [facility] Rx# :[id number] Output: Urine 1 Stool 2 Other: Voiding Method Urinal # Bowel Movements 2 - Exam GENERAL DESCRIPTION: An elderly male lying in bed in no distress RESPIRATORY SYSTEM: Unlabored breathing , decreased breath sounds at bases HEART: S1 S2 regular rate and rhythm , ABDOMEN: Soft , no tenderness EXTREMITIES: No edema feet - Labs CBC & Chem 7: 06/30/22 06:21 06/30/22 06:21 Labs: Abnormal Lab Results - Last 24 Hours (Table) 06/29/22 06/30/22 06/30/22 Range/Units 20:14 06:21 06:21 WBC 24.19 H (4.50-10.00) X 10*3/uL RBC 3.79 L (4.40-5.60) X 10*6/uL Hgb 12.1 L (13.0-17.0) g/dL Hct 37.1 L (39.6-50.0) % MCV 97.9 H (80.0-97.0) fL MPV 12.4 H (9.5-12.2) fL Immature Gran # 1.22 H (0.00-0.04) X 10*3/uL Neutrophils # 15.25 H (1.80-7.70) X 10*3/uL Monocytes # 2.28 H (0.20-1.00) X 10*3/uL Eosinophils # 0.46 H (0.04-0.35) X 10*3/uL Sodium 134 L (135-145) mmol/L BUN 68.2 H (9.0-27.0) mg/dL Creatinine 1.7 H (0.6-1.5) mg/dL Est GFR (CKD-EPI)AfAm 47.0 L (60.0-200.0) Est GFR (CKD-EPI)NonAf 40.5 L (60.0-200.0) BUN/Creatinine Ratio 40.12 H (12.00-20.00) Ratio POC Glucose (mg/dL) 152 H (70-110) mg/dL Calcium 8.0 L (8.7-10.3) mg/dL AST 86 H (14-35) U/L Albumin 2.8 L (3.8-4.9) g/dL Globulin 3.6 H (1.6-3.3) g/dL Albumin/Globulin Ratio 0.78 L (1.60-3.17) g/dL 06/30/22 06/30/22 Range/Units 06:58 10:50 WBC (4.50-10.00) X 10*3/uL RBC (4.40-5.60) X 10*6/uL Hgb (13.0-17.0) g/dL Hct (39.6-50.0) % MCV (80.0-97.0) fL MPV (9.5-12.2) fL Immature Gran # (0.00-0.04) X 10*3/uL Neutrophils # (1.80-7.70) X 10*3/uL Monocytes # (0.20-1.00) X 10*3/uL Eosinophils # (0.04-0.35) X 10*3/uL Sodium (135-145) mmol/L BUN (9.0-27.0) mg/dL Creatinine (0.6-1.5) mg/dL Est GFR (CKD-EPI)AfAm (60.0-200.0) Est GFR (CKD-EPI)NonAf (60.0-200.0) BUN/Creatinine Ratio (12.00-20.00) Ratio POC Glucose (mg/dL) 112 H 123 H (70-110) mg/dL Calcium (8.7-10.3) mg/dL AST (14-35) U/L Albumin (3.8-4.9) g/dL Globulin (1.6-3.3) g/dL Albumin/Globulin Ratio (1.60-3.17) g/dL Assessment and Plan (1) Bacteremia Current Visit: Yes Status: Acute Code(s): R78.81 - BACTEREMIA SNOMED Code(s): 4859888 Plan: 1patient with sepsis in this patient who did have a fever elevated white count elevated lactic acid now with evidence of gram-positive bacteremia with a source possible aspiration pneumonia as repeat x-ray did showed increasing density left lower lobe as the patient currently do not have any other obvious focus is abdominal soft on clinical examination no evidence of any joint swelling or cellulitis was noticed. 2blood cultures has been finalized as Streptococcus agalactiae repeat blood cultures have been negative so far 3-repeat CT with evidence of ascites and possible colitis in the left lower quadrant area, patient is scheduled for paracentesis this afternoon. Abdominal fluid should be sent for cell count Gram stain and culture 4- patient continue with Unasyn white count is trending down Time with Patient: Less than 30
[2022-07-01] MEDS: IPRATROPIUM-ALBUTEROL 3 ML NEB INHALATION SCH ×5 (08:22→20:57)
[2022-07-01 08:52] LABS: Basophils # (A) 0.06 X 10*3/uL (0.00-0.10); Basophils % (A) 0.3 %; Eosinophils # (A) 0.42 X 10*3/uL (0.04-0.35); Eosinophils % (A) 2.1 %; HCT 33.8 % (39.6-50.0); HGB 11.1 g/dL (13.0-17.0); Immature Grans, Automated 1.9 %; Lymphocytes # (A) 4.25 X 10*3/uL (0.90-5.00); Lymphocytes % (A) 21.4 %; MCH 31.8 pg (27.0-32.0); MCHC 32.8 g/dL (32.0-37.0); MCV 96.8 fL (80.0-97.0); Mean Platelet Volume 11.5 fL (9.5-12.2); Monocytes # (A) 2.27 X 10*3/uL (0.20-1.00); Monocytes % (A) 11.4 %; NRBC Per 100 WBC 0 /100 WBCS (0.0-0.0); Neutrophils # (A) 12.47 X 10*3/uL (1.80-7.70); Neutrophils % (A) 62.9 %; Platelet Count 229 X 10*3/uL (140-440); RBC 3.49 X 10*6/uL (4.40-5.60); RDW 14.1 % (11.5-14.5); WBC 19.85 X 10*3/uL (4.50-10.00)
[2022-07-01 09:14] LABS: African American GFR (CKD) 43.8 (60.0-200.0); Albumin 2.6 g/dL (3.8-4.9); Albumin/Globulin Ratio 0.76 (1.60-3.17); Anion Gap 8.5 mmol/L (10.00-18.00); BUN/Creat Ratio 41.06 Ratio (12.00-20.00); Blood Urea Nitrogen 73.9 mg/dL (9.0-27.0); Calcium 7.8 mg/dL (8.7-10.3); Carbon Dioxide 23.5 mmol/L (20.0-27.5); Globulin 3.4 g/dL (1.6-3.3); Non-African American GFR(CKD) 37.8 (60.0-200.0); Potassium 4.4 mmol/L (3.5-5.5); Total Bilirubin 0.7 mg/dL (0.30-1.20)
[2022-07-01] MEDS: INSULIN ASPART (NovoLOG) 100 UNIT/ML VIAL SQ SCH ×4 (09:49→20:42)
[2022-07-01] MEDS: ATORVASTATIN 40 MG TAB PO SCH (09:50)
[2022-07-01] MEDS: SIMETHICONE 40 MG/0.6 ML DROPS 2,000 MG/30 ML BOTTLE PO SCH ×4 (09:50→23:09)
[2022-07-01] MEDS: LOSARTAN 50 MG TAB PO SCH (09:50)
[2022-07-01] MEDS: METOPROLOL SUCCINATE (ER) 100 MG TAB.ER.24H PO SCH (09:50)
[2022-07-01] MEDS: ENOXAPARIN 40 MG/0.4 ML SYRINGE SQ SCH (09:50)
[2022-07-01] MEDS: NICOTINE 14MG/24HR PATCH TRANSDERM SCH (09:50)
--- NOTE | 2022-07-01 09:51 | US ---
Ultrasound-guided paracentesis. DATE OF EXAM: 06/30/2022 CLINICAL HISTORY: Ascites The procedure was discussed with the patient. The risks, complications, benefits, and alternatives we re discussed and any questions were answered. Informed consent was obtained. The patient was placed s upine on the ultrasound table and prepped and draped in the usual sterile fashion. All elements of maximal barrier technique were utilized. Under ultrasound guidance, access into the right lower quadrant was obtained, via the paracentesis catheter system and direct ultrasound guidanc e. Approximately 3.6 liters of straw-colored fluid was removed. The patient was stable throughout the pr ocedure and remained stable upon discharge from Department of Radiology. IMPRESSION: Successful paracentesis under ultrasound guidance.
[2022-07-01] MEDS: PANTOPRAZOLE 40 MG/10 ML VIAL IVP SCH ×2 (10:10→20:41)
--- NOTE | 2022-07-01 10:44 | P.PN ---
Subjective Progress Note Date: 07/01/22 The patient is a 67-year-old male who presented with change in mental status, had mild troponin elevation. He has a history of hypertension and hyperlipidemia. Patient is admitted with pneumonia and acute kidney injury, he is found to have bacteremia. There is also question of an acute GI bleed, stable. Patient examined today resting comfortably in the chair in no signs of acute distress he has no complaints of increased shortness of breath or chest pain. Patient underwent a paracentesis yesterday and he is much more comfortable. Cultures obtained during paracentesis are pending. BUNs is 73 creatinine is 1.8. Patient is being followed by nephrology. Vital signs remained stable. Will continue with current cardiology medication. From a cardiology stand point we'll follow patient on an as-needed basis. Please feel free to contact us with any concerns. Objective - Vital Signs Vital signs: Vital Signs Temp 98.4 F 07/01/22 08:00 Pulse 76 07/01/22 08:43 Resp 18 07/01/22 08:00 BP 132/65 07/01/22 08:00 Pulse Ox 94 L 07/01/22 08:00 FiO2 Intake & Output 06/30/22 07/01/22 07/01/22 18:59 06:59 18:59 Other: Voiding Method Urinal # Voids 2 - Exam PHYSICAL EXAM: VITAL SIGNS: Reviewed. GENERAL: Well-developed in no acute distress. HEENT: Head is normocephalic. Pupils are equal, round. Sclerae anicteric. Mucous membranes of the mouth are moist. NECK: Supple. No JVD or thyromegaly RESPIRATORY: Respirations even and unlabored. Lungs diminished to auscultation bilaterally. CARDIO: Regular rate and rhythm. S1 and S2 heard. No murmur or gallops. EXTREMITIES: Normal range of motion. No clubbing or cyanosis. Peripheral pulses intact. Negative for bilateral lower extremity edema NEURO: Orientated to person, time, mood is appropriate - Labs CBC & Chem 7: 07/01/22 05:54 07/01/22 05:54 Labs: Abnormal Lab Results - Last 24 Hours (Table) 06/30/22 06/30/22 06/30/22 Range/Units 06:21 10:50 16:49 WBC 24.19 H (4.50-10.00) X 10*3/uL RBC 3.79 L (4.40-5.60) X 10*6/uL Hgb 12.1 L (13.0-17.0) g/dL Hct 37.1 L (39.6-50.0) % MCV 97.9 H (80.0-97.0) fL MPV 12.4 H (9.5-12.2) fL Immature Gran # 1.22 H (0.00-0.04) X 10*3/uL Neutrophils # 15.25 H (1.80-7.70) X 10*3/uL Monocytes # 2.28 H (0.20-1.00) X 10*3/uL Eosinophils # 0.46 H (0.04-0.35) X 10*3/uL Sodium (135-145) mmol/L Anion Gap (10.00-18.00) mmol/L BUN (9.0-27.0) mg/dL Creatinine (0.6-1.5) mg/dL Est GFR (CKD-EPI)AfAm (60.0-200.0) Est GFR (CKD-EPI)NonAf (60.0-200.0) BUN/Creatinine Ratio (12.00-20.00) Ratio Glucose (70-110) mg/dL POC Glucose (mg/dL) 123 H 168 H (70-110) mg/dL Calcium (8.7-10.3) mg/dL AST (14-35) U/L Alkaline Phosphatase (41-126) U/L Total Protein (6.2-8.2) g/dL Albumin (3.8-4.9) g/dL Globulin (1.6-3.3) g/dL Albumin/Globulin Ratio (1.60-3.17) g/dL 06/30/22 07/01/22 07/01/22 Range/Units 21:15 05:54 05:54 WBC 19.85 H (4.50-10.00) X 10*3/uL RBC 3.49 L (4.40-5.60) X 10*6/uL Hgb 11.1 L (13.0-17.0) g/dL Hct 33.8 L (39.6-50.0) % MCV (80.0-97.0) fL MPV (9.5-12.2) fL Immature Gran # 0.38 H (0.00-0.04) X 10*3/uL Neutrophils # 12.47 H (1.80-7.70) X 10*3/uL Monocytes # 2.27 H (0.20-1.00) X 10*3/uL Eosinophils # 0.42 H (0.04-0.35) X 10*3/uL Sodium 134 L (135-145) mmol/L Anion Gap 8.50 L (10.00-18.00) mmol/L BUN 73.9 H (9.0-27.0) mg/dL Creatinine 1.8 H (0.6-1.5) mg/dL Est GFR (CKD-EPI)AfAm 43.8 L (60.0-200.0) Est GFR (CKD-EPI)NonAf 37.8 L (60.0-200.0) BUN/Creatinine Ratio 41.06 H (12.00-20.00) Ratio Glucose 145 H (70-110) mg/dL POC Glucose (mg/dL) 147 H (70-110) mg/dL Calcium 7.8 L (8.7-10.3) mg/dL AST 83 H (14-35) U/L Alkaline Phosphatase 130 H (41-126) U/L Total Protein 6.0 L (6.2-8.2) g/dL Albumin 2.6 L (3.8-4.9) g/dL Globulin 3.4 H (1.6-3.3) g/dL Albumin/Globulin Ratio 0.76 L (1.60-3.17) g/dL 07/01/22 Range/Units 06:52 WBC (4.50-10.00) X 10*3/uL RBC (4.40-5.60) X 10*6/uL Hgb (13.0-17.0) g/dL Hct (39.6-50.0) % MCV (80.0-97.0) fL MPV (9.5-12.2) fL Immature Gran # (0.00-0.04) X 10*3/uL Neutrophils # (1.80-7.70) X 10*3/uL Monocytes # (0.20-1.00) X 10*3/uL Eosinophils # (0.04-0.35) X 10*3/uL Sodium (135-145) mmol/L Anion Gap (10.00-18.00) mmol/L BUN (9.0-27.0) mg/dL Creatinine (0.6-1.5) mg/dL Est GFR (CKD-EPI)AfAm (60.0-200.0) Est GFR (CKD-EPI)NonAf (60.0-200.0) BUN/Creatinine Ratio (12.00-20.00) Ratio Glucose (70-110) mg/dL POC Glucose (mg/dL) 167 H (70-110) mg/dL Calcium (8.7-10.3) mg/dL AST (14-35) U/L Alkaline Phosphatase (41-126) U/L Total Protein (6.2-8.2) g/dL Albumin (3.8-4.9) g/dL Globulin (1.6-3.3) g/dL Albumin/Globulin Ratio (1.60-3.17) g/dL Microbiology - Last 24 Hours (Table) 06/29/22 15:12 Gram Stain - Preliminary Ascites Fluid Body Fluid Culture - Preliminary 06/29/22 15:12 Fungal Culture - Preliminary Ascites Fluid Assessment and Plan Assessment: Change in mental status improved Sepsis, source unclear, persistent leukocytosis Mild troponin elevation related to the infectious processes and the acute kidney injury Acute renal injury Hypertension History of hyperlipidemia Acute GI bleed, stable at this time Plan: Troponins elevated secondary to acute kidney injury and acute infectious process Continue with current treatment plan continue to follow renal function Will continue to follow on an as-needed basis The above impression and plan of care have been discussed and directed by the signing physician. Karen Lujan, nurse practitioner, acting as scribe for signing physician.
[2022-07-01 11:19] LABS: Glucose,Whole Blood 208 mg/dL (70-110)
--- NOTE | 2022-07-01 12:18 | XR ---
EXAMINATION TYPE: XR abdomen 1V DATE OF EXAM: 07/01/2022 COMPARISON: 06/28/2022 HISTORY: Pain TECHNIQUE: Single supine KUB image of the abdomen is obtained FINDINGS: There is improved distention of small and large bowel. Mild persistent distention is noted. Suspect m ild residual ileus. No convincing evidence for pneumoperitoneum. No unusual calcifications. The lung bases are clear. The osseous structures are intact. IMPRESSION: 1. There is improved distention of small and large bowel. Mild persistent distention is noted. Suspe ct mild residual ileus.
--- NOTE | 2022-07-01 13:58 | P.PN ---
Subjective Progress Note Date: 07/01/22 Principal diagnosis: Enteritis Patient is resting comfortably. Apparently he did not sleep well last night. Family is at the bedside along with the nursing staff. History obtained from them. He apparently had a slight fall this morning. He fell and slipped out of his chair apparently. He went down slowly he states. Denies abdominal pain. No nausea or vomiting. Paracentesis shows no organisms on Gram stain. Cultures are negative thus far. He is afebrile. White blood cell count is improved. Objective - Vital Signs Vital signs: Vital Signs Temp 98.4 F 07/01/22 08:00 Pulse 75 07/01/22 12:05 Resp 18 07/01/22 08:00 BP 132/65 07/01/22 08:00 Pulse Ox 94 L 07/01/22 08:00 FiO2 Intake & Output 06/30/22 07/01/22 07/01/22 18:59 06:59 18:59 Weight 104.3 kg Other: Voiding Method Urinal # Voids 2 - Exam Abdomen: Soft, less distended after paracentesis, nontender - Labs CBC & Chem 7: 07/01/22 05:54 07/01/22 05:54 Labs: Abnormal Lab Results - Last 24 Hours (Table) 06/30/22 06/30/22 07/01/22 Range/Units 16:49 21:15 05:54 WBC 19.85 H (4.50-10.00) X 10*3/uL RBC 3.49 L (4.40-5.60) X 10*6/uL Hgb 11.1 L (13.0-17.0) g/dL Hct 33.8 L (39.6-50.0) % Immature Gran # 0.38 H (0.00-0.04) X 10*3/uL Neutrophils # 12.47 H (1.80-7.70) X 10*3/uL Monocytes # 2.27 H (0.20-1.00) X 10*3/uL Eosinophils # 0.42 H (0.04-0.35) X 10*3/uL Sodium (135-145) mmol/L Anion Gap (10.00-18.00) mmol/L BUN (9.0-27.0) mg/dL Creatinine (0.6-1.5) mg/dL Est GFR (CKD-EPI)AfAm (60.0-200.0) Est GFR (CKD-EPI)NonAf (60.0-200.0) BUN/Creatinine Ratio (12.00-20.00) Ratio Glucose (70-110) mg/dL POC Glucose (mg/dL) 168 H 147 H (70-110) mg/dL Calcium (8.7-10.3) mg/dL AST (14-35) U/L Alkaline Phosphatase (41-126) U/L Total Protein (6.2-8.2) g/dL Albumin (3.8-4.9) g/dL Globulin (1.6-3.3) g/dL Albumin/Globulin Ratio (1.60-3.17) g/dL 07/01/22 07/01/22 07/01/22 Range/Units 05:54 06:52 11:17 WBC (4.50-10.00) X 10*3/uL RBC (4.40-5.60) X 10*6/uL Hgb (13.0-17.0) g/dL Hct (39.6-50.0) % Immature Gran # (0.00-0.04) X 10*3/uL Neutrophils # (1.80-7.70) X 10*3/uL Monocytes # (0.20-1.00) X 10*3/uL Eosinophils # (0.04-0.35) X 10*3/uL Sodium 134 L (135-145) mmol/L Anion Gap 8.50 L (10.00-18.00) mmol/L BUN 73.9 H (9.0-27.0) mg/dL Creatinine 1.8 H (0.6-1.5) mg/dL Est GFR (CKD-EPI)AfAm 43.8 L (60.0-200.0) Est GFR (CKD-EPI)NonAf 37.8 L (60.0-200.0) BUN/Creatinine Ratio 41.06 H (12.00-20.00) Ratio Glucose 145 H (70-110) mg/dL POC Glucose (mg/dL) 167 H 208 H (70-110) mg/dL Calcium 7.8 L (8.7-10.3) mg/dL AST 83 H (14-35) U/L Alkaline Phosphatase 130 H (41-126) U/L Total Protein 6.0 L (6.2-8.2) g/dL Albumin 2.6 L (3.8-4.9) g/dL Globulin 3.4 H (1.6-3.3) g/dL Albumin/Globulin Ratio 0.76 L (1.60-3.17) g/dL Microbiology - Last 24 Hours (Table) 06/29/22 15:12 Gram Stain - Preliminary Ascites Fluid Body Fluid Culture - Preliminary 06/29/22 15:12 Fungal Culture - Preliminary Ascites Fluid Assessment and Plan (1) Enteritis Narrative/Plan: 67-year-old male seems to be doing gradually better. Certainly an improvement in his abdominal bloating after paracentesis. Cultures negative thus far. Continue antibiotics or possible bacterial peritonitis. Continue diet as tolerated. Will follow. Current Visit: Yes Status: Acute Code(s): K52.9 - NONINFECTIVE GASTROENTERITIS AND COLITIS, UNSPECIFIED SNOMED Code(s): 56383398
--- NOTE | 2022-07-01 14:48 | P.PN ---
Subjective Progress Note Date: 07/01/22 On 06/24/2022 patient seen in follow-up in the intensive care unit. Patient is sedated, currently on Precedex at 0.5 mics per kilo per hour. He is on Precedex at 5 mg per hour. Lactated Ringer's at 75 ML per hour, remains sedated, very confused. No signs of any respiratory distress, he is on 4 L of oxygen per nasal cannula with pulse ox of 95%, his been afebrile, in sinus mechanism, rate is 79 BPM. His blood pressure is better controlled with Cleviprex infusion. It is currently 141/75. MRI of the brain was completed last night showing no evidence of a recent infarct, mild diffuse age-related cerebral atrophy and chronic small vessel ischemic changes. No abnormal enhancement was noted. Jose benitez's labs have been reviewed, white blood cell count is 20.0, hemoglobin is 12.7, INR is 1.4, sodium is 134, potassium is 4.8, chloride is 109, BUN is 65 creatinine 0.76. Last night's blood gas was also reviewed showing pO2 of 72, pCO2 of 32, and pH of 7.48. This was done on FiO2 of 32%. CTA chest a few days ago showed no evidence of pulmonary embolism, showed interstitial infiltrate and atelectasis, no suspicious pulmonary mass. EEG showed no focal slowing, epileptiform discharge or seizure. Echocardiogram showed EF of 60-65%. Blood culture showed strep agalactiae, group B. Follow-up blood cultures have shown no growth thus far. ID service is following, patient remains on cefazolin 2 g every 8 hours. Last night patient developed GI bleeding, and passed of a very large maroon-colored stool. Today's hemoglobin is 12.7 which is down from 14 from yesterday, platelet count is 141, INR is 1.4. GI service has been consulted for evaluation. On 06/25/2022 patient seen in follow-up in the intensive care unit, he is much more awake and alert, he is oriented 3, no confusion or agitation, resting comfortably in bed, NG tube has been inserted for abdominal distention yesterday, there has been no gastric output out of it, but abdomen although still distended and seems softer and less distended on today's exam, overnight patient had 5 episodes of small to moderate in size tarry stools. Remains on Protonix 40 mg twice daily, remains nothing by mouth except for ice chips, surgical consultation has been obtained, please refer to the consultation note. He remains on Lexapro rings at a rate of 75 ML per hour. Cleviprex drip has been discontinued however his blood pressure remains elevated this morning and in view of nothing by mouth status will have to be restarted for blood pressure control, he is in sinus mechanism. Denies any shortness of breath or chest pain, lung sounds are clear to auscultation, Precedex has been weaned off since 11:00 yesterday morning. Remains on cefazolin for strep group B and the blood culture, follow blood culture remains negative thus far. Vital signs have been stable. 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 Hemodynamically he remains stable, he is awake and alert, oriented 3, NG tube remains in place to low intermittent suction. Remains on ice chips otherwise nothing by mouth, likely Ringer's at a rate of 75 ML per hour. He is breathing comfortably, denies any chest pain, not on any vasopressor support, in sinus me chanism. Today's hemoglobin is 12.9, white blood cell count was 22.3. BUN is 42, creatinine 0.75. On 06/29/2022 patient seen in follow-up on medical surgical floor. His up in the chair, still complaining of some abdominal distention, he states he was able to pass some gas, and he has been passing bowel movements. Abdomen is soft. he remains on antibiotics cefazolin. Follow blood culture was negative for any growth. Patient has been afebrile, blood pressure is been stable, he denies any pulmonary symptoms. Flat plate of the abdomen showed ileus, Reglan was added. Patient remains on IV fluids at 100 mL an hour with 0.9 normal saline, renal profile is worsening and creatinine is up to 1.64. BUN is 63. on 06/30/2022 patient seen in follow-up on medical surgical floor. He is awak e, does not appear to be in any acute distress,denies any difficulty breathing, he remains on 2 L of oxygen the pulse ox of 97%, afebrile, abdomen is slightly tender, but soft, blood pressure stable, patient had CT of the abdomen and pelvis showing small to moderate volume ascites, hepatic cirrhosis with portal hypertension, enlarged spleen, and perisplenic collaterals, and circumferential wall thickening of the small bowel, consistent with nonspecific enteritis, and new diffusely edematous stomach. Surgical services are following. continues on Unasyn, ID service is following. ultrasound of the abdomen was obtained showing ascites. Patient is scheduled for paracentesis this afternoon. The patient is seen on 07/01/2022 in follow-up on the regular medical floor. he is currently resting in bed. Awake and alert in no acute distress. He did undergo a paracentesis yesterday with a 3.6 L of straw-colored fluid removed. Fluid culture is pending. white count 19.8. Hemoglobin 11.1. Sodium 134. Potassium 4.4. BUN 74. Creatinine 1.8. Glucose 145. AST 83. ALT 41. Alk phos 30. Albumin 2.6. He is continued on Unasyn. His abdomen remains quite distended. Flat plate of the abdomen revealed improved distention of small and large bowel. Mild persistent distention is noted. Mild residual ileus. Objective - Vital Signs Vital signs: Vital Signs Temp 97.6 F 07/01/22 14:00 Pulse 67 07/01/22 14:00 Resp 16 07/01/22 14:00 BP 94/58 07/01/22 14:00 Pulse Ox 98 07/01/22 14:00 FiO2 Intake & Output 06/30/22 07/01/22 07/01/22 18:59 06:59 18:59 Weight 104.3 kg Other: Voiding Method Urinal # Voids 2 - Exam GENERAL EXAM: Awake and alert 67-year-old male, on 4 L of oxygen, comfortable in no apparent distress. HEAD: Normocephalic/atraumatic. EYES: Normal reaction of pupils, equal size. Conjunctiva pink, sclera white. NOSE: Clear with pink turbinates. THROAT: No erythema or exudates. NECK: No masses, no JVD, no thyroid enlargement, no adenopathy. CHEST: No chest wall deformity. Symmetrical expansion. LUNGS: Equal air entry with no crackles, wheeze, rhonchi or dullness. CVS: Regular rate and rhythm, normal S1 and S2, no gallops, no murmurs, no rubs ABDOMEN: Distended, tympanic to percussion, nontender. No hepatosplenomegaly, normal bowel sounds, no guarding or rigidity. EXTREMITIES: No clubbing, no edema, no cyanosis, 2+ pulses and upper and lower extremities. MUSCULOSKELETAL: Muscle strength and tone normal. SPINE: No scoliosis or deformity SKIN: No rashes CENTRAL NERVOUS SYSTEM: Awake, slow to respond, No focal deficits, tone is normal in all 4 extremities. - Labs CBC & Chem 7: 07/01/22 05:54 07/01/22 05:54 Labs: Abnormal Lab Results - Last 24 Hours (Table) 06/30/22 06/30/22 07/01/22 Range/Units 16:49 21:15 05:54 WBC 19.85 H (4.50-10.00) X 10*3/uL RBC 3.49 L (4.40-5.60) X 10*6/uL Hgb 11.1 L (13.0-17.0) g/dL Hct 33.8 L (39.6-50.0) % Immature Gran # 0.38 H (0.00-0.04) X 10*3/uL Neutrophils # 12.47 H (1.80-7.70) X 10*3/uL Monocytes # 2.27 H (0.20-1.00) X 10*3/uL Eosinophils # 0.42 H (0.04-0.35) X 10*3/uL Sodium (135-145) mmol/L Anion Gap (10.00-18.00) mmol/L BUN (9.0-27.0) mg/dL Creatinine (0.6-1.5) mg/dL Est GFR (CKD-EPI)AfAm (60.0-200.0) Est GFR (CKD-EPI)NonAf (60.0-200.0) BUN/Creatinine Ratio (12.00-20.00) Ratio Glucose (70-110) mg/dL POC Glucose (mg/dL) 168 H 147 H (70-110) mg/dL Calcium (8.7-10.3) mg/dL AST (14-35) U/L Alkaline Phosphatase (41-126) U/L Total Protein (6.2-8.2) g/dL Albumin (3.8-4.9) g/dL Globulin (1.6-3.3) g/dL Albumin/Globulin Ratio (1.60-3.17) g/dL 07/01/22 07/01/22 07/01/22 Range/Units 05:54 06:52 11:17 WBC (4.50-10.00) X 10*3/uL RBC (4.40-5.60) X 10*6/uL Hgb (13.0-17.0) g/dL Hct (39.6-50.0) % Immature Gran # (0.00-0.04) X 10*3/uL Neutrophils # (1.80-7.70) X 10*3/uL Monocytes # (0.20-1.00) X 10*3/uL Eosinophils # (0.04-0.35) X 10*3/uL Sodium 134 L (135-145) mmol/L Anion Gap 8.50 L (10.00-18.00) mmol/L BUN 73.9 H (9.0-27.0) mg/dL Creatinine 1.8 H (0.6-1.5) mg/dL Est GFR (CKD-EPI)AfAm 43.8 L (60.0-200.0) Est GFR (CKD-EPI)NonAf 37.8 L (60.0-200.0) BUN/Creatinine Ratio 41.06 H (12.00-20.00) Ratio Glucose 145 H (70-110) mg/dL POC Glucose (mg/dL) 167 H 208 H (70-110) mg/dL Calcium 7.8 L (8.7-10.3) mg/dL AST 83 H (14-35) U/L Alkaline Phosphatase 130 H (41-126) U/L Total Protein 6.0 L (6.2-8.2) g/dL Albumin 2.6 L (3.8-4.9) g/dL Globulin 3.4 H (1.6-3.3) g/dL Albumin/Globulin Ratio 0.76 L (1.60-3.17) g/dL Microbiology - Last 24 Hours (Table) 06/29/22 15:12 Gram Stain - Preliminary Ascites Fluid Body Fluid Culture - Preliminary 06/29/22 15:12 Fungal Culture - Preliminary Ascites Fluid Assessment and Plan Assessment: Acute mental status changes, unknown etiology, related to sepsis, acute kidney injury. Currently patient is improving, and close to his baseline. Off Precedex on 06/25/2022 Bacteremia related to strep agalactiae, possibly abdominal source Acute GI blood loss anemia, with passing maroon stools starting on 06/23/2022, GI service has been consulted Acute kidney injury related to sepsis, improved and then worsened again Hyponatremia, hypovolemic Possible urinary tract infection Multiple falls at home History of opiate dependence History of COPD/chronic bronchial asthma, unspecified History of chronic back pain History of anxiety Hypertension Hyperlipidemia Abdominal ascites, status post paracentesis 06/30/2022 with 3.6 L of straw- colored fluid removed, cultures pending Plan: The patient was seen and evaluated Remains on 4 L nasal cannula Status post paracentesis with 3.6 L removed Cultures pending Continue the current treatment plan I have personally seen and examined the patient and reviewed the documentation. I performed a joint evaluation with the nurse practitioner in this evaluation was done more than 20 minutes. I fully agree with the documentation above and the plan of care.. The patient is being seen for follow-up. Paracentesis was done and the patient had a total of 3.5 L of fluid removed from the abdominal. However, the patient continues to have abdominal distention. This is consistent with underlying ileus. Repeat fasting of the abdomen. Keep the patient on 4 L. Monitor the white cell count is improved compared to yesterday. We'll continue to follow. General surgeries on the case. ID is on the case and the patient is still on IV Unasyn.
--- NOTE | 2022-07-01 15:55 | P.PN ---
Subjective Progress Note Date: 07/01/22 Ag Souza, is a 67-year-old male who presented to [facility] emergency room after having a multiple falls at home, has significant mental status changes with somnolence and poor responsiveness, history per his , over the last 24 hours patient has been not feeling well, he fell twice at home, on the second time she was not able to wake him up and get him up from the floor through the bed, she called EMS and he was brought into emergency room. He was evaluated in the emergency room vital examination on presentation revealed a temperature of 97.3 pulse 82 respiration 16 blood pressure 121/67 pulse ox 97% on room air Laboratory data revealed a white blood count of 23.2 hemoglobin 14.4 platelet count 98,000 sodium 129 potassium 4.9 chloride 96 CO2 25 BUN 51 creatinine 2.24 troponin level was 0.02 COVID-19 testing was negative Testing in the emergency room revealed chest x-ray done in the emergency room did not reveal significant abnormality. Patient has a known history of degenerative disc disease with chronic pain maintained on narcotics for pain management he was given Narcan in the emergency room which led to improvement in his mental status. Patient was admitted to medical floor for further evaluation and treatment. On 06/22/2022 patient was seen and examined on the telemetry floor he is still somnolent, agitated, pulling on his IV line, he was started through the night on IV Ativan, vital examination reveals a temperature of 98.4 pulse 132 respiration 24 blood pressure 172/91 pulse ox 96% on 2 L nasal cannula, white blood count is 21.9 hemoglobin 14.8 platelet count 118 d-dimer was elevated at 2.12 at this time will start patient on IV heparin high-intensity for possible pulmonary embolism, his kidney function is still elevated, will defer computed tomography scan this time, he is not cooperative to proceed with VQ scan, will continue with IV fluid, nephrology consultation and infectious disease consultation were requested. On 06/23/2022 patient was seen and examined in the ICU he is more alert and oriented today vital exam reveals a temperature of 98.2 pulse 86 respiration 23 blood pressure 138/79 pulse ox 93% on 2 L nasal cannula white blood count is down to 15.4 hemoglobin 13.2 platelet count 125 kidney function improved with BUN at 66 and creatinine at 0.89 kidney ultrasound was done and revealed no evidence of renal stones or obstruction, CT angiogram of the chest was done and there was no evidence of pulmonary embolism, blood culture were positive for Streptococcus group b , patient is currently maintained on IV Unasyn, IV vanc omycin and IV acyclovir, cardiology, pulmonary, nephrology, neurology and infectious disease are following On 06/24/2022 patient was seen and examined in the ICU he is more alert and oriented today kidney ultrasound was done and revealed no evidence of renal stones or obstruction, CT angiogram of the chest was done and there was no evidence of pulmonary embolism, blood culture were positive for Streptococcus group b , patient is currently maintained on IV Unasyn, IV vancomycin and IV acyclovir, cardiology, pulmonary, nephrology, neurology and infectious disease are following. Patient had a maroon colored stools through the night, GI consultation is not available this week, surgical consultation was requested for evaluation for possible GI bleed On 06/25/2022 patient was seen and examined in the ICU, he is more alert and responsive today, there is no fever or chills no headache or dizziness no chest pain no shortness of breath no cough no nausea or vomiting no abdominal pain no diarrhea and no urinary symptoms. IV heparin has been discontinued, at this time will start subcu Lovenox for DVT prophylaxis, he remains on IV antibiotics cefazolin 2 g IV every 8 hours. On 06/26/2022 patient was seen and examined in the ICU he is alert and oriented 3 in no apparent distress he is complaining of abdominal discomfort otherwise he denies any complaint at this time there is no fever or chills no headache or dizziness no chest pain no shortness of breath no cough no nausea or vomiting no diarrhea no blood in the stools no burning with urination no frequency or urgency and no hematuria. On 06/27/2022 patient was seen and examined on in the ICU he is alert and oriented 3, he is feeling better, he had multiple bowel movements and his abdominal pain has improved, he is still complaining of difficulty sleeping at night otherwise he denies any complaints there is no fever or chills no headache or dizziness no chest pain no shortness of breath no cough no nausea or vomiting no abdominal pain no diarrhea no blood in the stools no burning with urination no frequency or urgency and no hematuria. On 06/28/2022 patient was seen and examined on the medical floor he is alert and oriented 3 in no distress there is no fever or chills no headache or dizziness no chest pain no shortness of breath no cough no nausea or vomiting no abdominal pain no diarrhea, no blood in the stools no burning with urination no frequency or urgency and no hematuria patient has generalized weakness he is improving gradually will continue to follow closely physical therapy is following On 06/29/2022 patient was seen and examined on the medical floor he is alert and oriented 3 in no apparent distress there is no fever or chills no headache or dizziness no chest pain no shortness of breath no cough no nausea or vomiting he is complaining of abdominal discomfort with abdominal distention no diarrhea or constipation no blood in the stools no burning with urination no frequency or urgency and no hematuria. At this time patient is scheduled for computed tomography scan of the abdomen and pelvis will continue to monitor closely. On 06/30/2022 patient was seen and examined on the telemetry floor he is alert and oriented 3 in no apparent distress he is complaining now of severe neck gina n and back pain and requesting [place], patient underwent paracentesis today, 3.5 L of fluid were removed, otherwise patient denies any other symptoms there is no fever or chills no headache or dizziness no chest pain no shortness of breath no cough no nausea or vomiting no abdominal pain no diarrhea and no urinary symptoms On 07/01/2022 patient was seen and examined on the medical floor he is alert and oriented 3 in no apparent distress he is complaining of abdominal discomfort and distention otherwise he denies any complaints at this time there is no fever or chills no headache or dizziness no chest pain no shortness of breath no cough no nausea or vomiting no diarrhea no blood in the stools no burning with urination no frequency or urgency and no hematuria Objective - Vital Signs Vital signs: Vital Signs Temp 98.4 F 07/01/22 08:00 Pulse 76 07/01/22 08:43 Resp 18 07/01/22 08:00 BP 132/65 07/01/22 08:00 Pulse Ox 94 L 07/01/22 08:00 FiO2 Intake & Output 06/30/22 07/01/22 07/01/22 18:59 06:59 18:59 Other: Voiding Method Urinal # Voids 2 - Exam In general patient is alert and responsive in no apparent distress HEENT head normocephalic and atraumatic Neck is supple no JVD no goiter no lymphadenopathy no carotid bruit Chest examination is clear to auscultation no crackles no wheezing Cardiac exam reveals regular heart sounds S1 and S2 no gallops no murmurs Abdomen is soft nontender no organomegaly with normal bowel sounds Extremity exam reveals no edema no cyanosis or clubbing Neurological examination reveals no gross focal deficits - Labs CBC & Chem 7: 07/01/22 05:54 07/01/22 05:54 Labs: Abnormal Lab Results - Last 24 Hours (Table) 06/30/22 06/30/22 06/30/22 Range/Units 06:21 16:49 21:15 WBC 24.19 H (4.50-10.00) X 10*3/uL RBC 3.79 L (4.40-5.60) X 10*6/uL Hgb 12.1 L (13.0-17.0) g/dL Hct 37.1 L (39.6-50.0) % MCV 97.9 H (80.0-97.0) fL MPV 12.4 H (9.5-12.2) fL Immature Gran # 1.22 H (0.00-0.04) X 10*3/uL Neutrophils # 15.25 H (1.80-7.70) X 10*3/uL Monocytes # 2.28 H (0.20-1.00) X 10*3/uL Eosinophils # 0.46 H (0.04-0.35) X 10*3/uL Sodium (135-145) mmol/L Anion Gap (10.00-18.00) mmol/L BUN (9.0-27.0) mg/dL Creatinine (0.6-1.5) mg/dL Est GFR (CKD-EPI)AfAm (60.0-200.0) Est GFR (CKD-EPI)NonAf (60.0-200.0) BUN/Creatinine Ratio (12.00-20.00) Ratio Glucose (70-110) mg/dL POC Glucose (mg/dL) 168 H 147 H (70-110) mg/dL Calcium (8.7-10.3) mg/dL AST (14-35) U/L Alkaline Phosphatase (41-126) U/L Total Protein (6.2-8.2) g/dL Albumin (3.8-4.9) g/dL Globulin (1.6-3.3) g/dL Albumin/Globulin Ratio (1.60-3.17) g/dL 07/01/22 07/01/22 07/01/22 Range/Units 05:54 05:54 06:52 WBC 19.85 H (4.50-10.00) X 10*3/uL RBC 3.49 L (4.40-5.60) X 10*6/uL Hgb 11.1 L (13.0-17.0) g/dL Hct 33.8 L (39.6-50.0) % MCV (80.0-97.0) fL MPV (9.5-12.2) fL Immature Gran # 0.38 H (0.00-0.04) X 10*3/uL Neutrophils # 12.47 H (1.80-7.70) X 10*3/uL Monocytes # 2.27 H (0.20-1.00) X 10*3/uL Eosinophils # 0.42 H (0.04-0.35) X 10*3/uL Sodium 134 L (135-145) mmol/L Anion Gap 8.50 L (10.00-18.00) mmol/L BUN 73.9 H (9.0-27.0) mg/dL Creatinine 1.8 H (0.6-1.5) mg/dL Est GFR (CKD-EPI)AfAm 43.8 L (60.0-200.0) Est GFR (CKD-EPI)NonAf 37.8 L (60.0-200.0) BUN/Creatinine Ratio 41.06 H (12.00-20.00) Ratio Glucose 145 H (70-110) mg/dL POC Glucose (mg/dL) 167 H (70-110) mg/dL Calcium 7.8 L (8.7-10.3) mg/dL AST 83 H (14-35) U/L Alkaline Phosphatase 130 H (41-126) U/L Total Protein 6.0 L (6.2-8.2) g/dL Albumin 2.6 L (3.8-4.9) g/dL Globulin 3.4 H (1.6-3.3) g/dL Albumin/Globulin Ratio 0.76 L (1.60-3.17) g/dL Microbiology - Last 24 Hours (Table) 06/29/22 15:12 Gram Stain - Preliminary Ascites Fluid Body Fluid Culture - Preliminary 06/29/22 15:12 Fungal Culture - Preliminary Ascites Fluid Assessment and Plan Plan: Mental status changes, cause is unclear could be related to overdose of narcotic Leukocytosis, no clear source of infection, chest x-ray and urine analysis don't show any clear evidence of infection, patient received IV steroids in the EMS and in the emergency room, will check lactic acid level and monitor CBC Acute exacerbation of COPD with wheezing on presentation, he was started on IV Solu-Medrol in the emergency room, he is on inhaled bronchodilators Evidence of acute kidney injury was elevated BUN and creatinine patient was started on IV fluid at this time Mild elevation in troponin level will monitor Underlying history of hypertension Underlying history of hypothyroidism Underlying history of depression with anxiety disorder Underlying history of vitamin D deficiency Underlying history of degenerative disc disease with chronic back pain maintained on narcotics for pain management Underlying history of gastroesophageal reflux disease At this time patient is admitted to telemetry floor Will check d-dimer check lactic acid recheck CBC and CMP Continue with IV fluid and recheck renal function Consult nephrology
--- NOTE | 2022-07-01 16:13 | P.NPCON ---
History of Present Illness - Reason for Consult Consult date: 07/01/22 acute renal failure - Chief Complaint Altered mental status - History of Present Illness 67-year-old gentleman admitted to the hospital on 06/21/2022 with altered mental status, peak creatinine of 2.24, baseline 0.7 MG per DL. Initial diagnosis was prerenal acute kidney injury, Creatinine improved back to baseline. He had been started creeping on 07/08/2022 and 1.8 MG per DL today. As per the family decreased urine output, no nausea vomiting diarrhea. He had paracentesis with 3.5 L of fluid removed yesterday. Blood pressures low normal. Also on Cozaar. He was given a dose of Lasix yesterday. He is also on antibiotics with Unasyn. Review of Systems Constitutional: Reports as per HPI Past Medical History Past Medical History: Asthma, Cancer, CVA/TIA, GERD/Reflux, Hyperlipidemia, Hypertension, Thyroid Disorder Additional Past Medical History / Comment(s): Hx. of Brain Aneurysm, SKIN CANCER, CHRONIC NOSEBLEEDS History of Any Multi-Drug Resistant Organisms: None Reported Past Surgical History: Cholecystectomy, Orthopedic Surgery, Tonsillectomy Additional Past Surgical History / Comment(s): Knee surgery, Endovascular coiling for Brain Aneurysm.LESION REMOVED , SUSPENSION MICROLARYNGOSCOPY Past Anesthesia/Blood Transfusion Reactions: Previous Problems w/ Anesthesia Additional Past Anesthesia/Blood Transfusion Reaction / Comment(s): Woke up during surgery. Smoking Status: Current every day smoker - Past Family History Mother Family Medical History: Cancer Additional Family Medical History / Comment(s): uterine cancer Father Family Medical History: Cancer, CVA/TIA Additional Family Medical History / Comment(s): skin cancer Sister(s) Family Medical History: Cancer Additional Family Medical History / Comment(s): skin cancer Medications and Allergies Home Medications Medication Instructions Recorded Confirmed Type Baclofen [Lioresal] 10 mg PO HS 02/26/19 06/21/22 History Ipratropium/Albuterol Sulfate 1 puff INHALATION RT-QID 02/26/19 06/21/22 History [Combivent Respimat Inhaler] Metoprolol Succinate [Toprol XL] 50 mg PO QAM 02/26/19 06/21/22 History Omeprazole [PriLOSEC] 20 mg PO AC-BRKFST 02/26/19 06/21/22 History HYDROcodone/APAP 10-325MG [[place] 1 tab PO Q6HR PRN 09/07/21 06/21/22 History 10-325] Levothyroxine Sodium [Synthroid] 88 mcg PO QAM 09/07/21 06/21/22 History Morphine Sulfate ER [Ms Contin] 15 mg PO HS 09/07/21 06/21/22 History Zolpidem Tartrate [Ambien Cr] 12.5 mg PO HS PRN 09/07/21 06/21/22 History lisinopriL [Prinivil] 20 mg PO QAM 09/07/21 06/21/22 History Albuterol Sulfate [Proventil Hfa] 1 - 2 puff INHALATION Q6HR PRN 06/21/22 06/21/22 History Aspirin EC [Ecotrin Low Dose] 81 mg PO DAILY 06/21/22 06/21/22 History Ergocalciferol [Vitamin D2 (1250 1,250 mcg PO Q7D 06/21/22 06/21/22 History Mcg = 52700 Iu)] Fluticasone Nasal [place] [Flonase 1 spray EA NOSTRIL DAILY 06/21/22 06/21/22 History Nasal [place]] Furosemide [Lasix] 20 mg PO DAILY 06/21/22 06/21/22 History Mirtazapine [Remeron] 15 mg PO HS 06/21/22 06/21/22 History hydrOXYzine HCL [Atarax] 10 mg PO HS 06/21/22 06/21/22 History traZODone HCL [Desyrel] 100 mg PO HS 06/21/22 06/21/22 History Allergies Allergy/AdvReac Type Severity Reaction Status Date / Time No Known Allergies Allergy Verified 06/21/22 11:22 Physical Exam Vitals: Vital Signs Temp Pulse Pulse Pulse Resp BP Pulse Ox 07/01/22 15:36 75 18 07/01/22 14:00 97.6 F 67 16 94/58 98 07/01/22 12:05 75 07/01/22 11:55 75 07/01/22 08:43 76 07/01/22 08:22 76 07/01/22 08:00 98.4 F 68 18 132/65 94 L 07/01/22 02:00 97.6 F 73 20 147/71 90 L 06/30/22 20:29 79 06/30/22 20:13 76 06/30/22 20:00 97.6 F 73 70 20 111/55 99 06/30/22 16:36 75 06/30/22 16:24 72 98 06/30/22 16:08 97.5 F L 69 17 126/70 98 Intake and Output 07/01/22 07/01/22 07/01/22 06:59 14:59 22:59 Other: Weight 104.3 kg No acute distress S1-S2 heard Decreased breath sounds Abdominal distention Trace edema Results - Lab Results Most recent lab results ABG pH 7.48 (7.35-7.45) H 06/24/22 00:57 ABG pCO2 32 mmHg (35-45) L 06/24/22 00:57 ABG pO2 72 mmHg (83-108) L 06/24/22 00:57 ABG HCO3 24 mmol/L (21-25) 06/24/22 00:57 ABG O2 Saturation 97.5 % (94-97) H 06/24/22 00:57 Calcium 7.8 mg/dL (8.7-10.3) L 07/01/22 05:54 Magnesium 2.5 mg/dL (1.6-2.3) H 06/23/22 05:54 07/01/22 05:54 07/01/22 05:54 Assessment and Plan Assessment: #1 acute kidney injury multifactorial -Acute interstitial nephritis with recent antibiotic use -Hemodynamic ATN with low blood pressures and concomitant use of Cozaar. -Rule out urinary retention with distended abdomen. -Baseline creatinine 0.7 MG per DL. #2 suspected aspiration pneumonia on cefazolin #3 hypotensive episodes #4 ascites status post paracentesis #5. Enteritis Plan: #1 bladder scan to rule out urinary retention. #2 check urine analysis and urine electrolytes. #3 start IV fluids normal saline at 75 ML's an hour. #4 stop Cozaar #5 labs in the morning
[2022-07-01 16:26] LABS: Glucose,Whole Blood 160 mg/dL (70-110)
[2022-07-01 17:21] LABS: Appearance,Urine Clear (Clear); Bilirubin,Urine Negative (Negative); Blood,Urine Negative (Negative); Color,Urine Yellow; Glucose,Urine (UA) Negative (Negative); Ketones,Urine Trace (Negative); Leukocyte Esterase,Urine Negative (Negative); Nitrite,Urine Negative (Negative); Protein,Urine Trace (Negative); Specific Gravity,Urine 1.019 (1.001-1.035); Urobilinogen,Urine <2.0 mg/dL (<2.0)
[2022-07-01] MEDS: LACTULOSE 20 GM/30 ML CUP PO SCH ×2 (17:32→20:45)
[2022-07-01] MEDS: MELATONIN 5 MG TABLET PO SCH (20:41)
[2022-07-01] MEDS: ALPRAZolam 0.5 MG TAB PO SCH (20:41)
[2022-07-01 21:06] LABS: Glucose,Whole Blood 169 mg/dL (70-110)
[2022-07-01] MEDS: LORazepam 0.5 MG TAB PO PRN (23:09)
[2022-07-02] MEDS: METOCLOPRAMIDE 5 MG/ML 2 ML VIAL IVP SCH ×4 (02:03→17:48)
[2022-07-02] MEDS: AMPICILLIN-SULBACTAM 3 GM in SODIUM CHLORIDE 0.9% 100 ML IVPB SCH ×3 (02:04→17:48)
[2022-07-02] MEDS: SODIUM CHLORIDE 0.9% 1,000 ML IV SCH ×3 (02:10→09:25)
[2022-07-02] MEDS: IPRATROPIUM-ALBUTEROL 3 ML NEB INHALATION PRN (05:09)
[2022-07-02] MEDS: HYDROcodone/APAP 5-325MG 1 EACH TAB PO PRN ×3 (05:32→19:33)
[2022-07-02] MEDS: LEVOTHYROXINE 88 MCG TAB PO SCH (05:33)
[2022-07-02] MEDS: LORazepam 0.5 MG TAB PO PRN ×2 (05:33→22:36)
--- NOTE | 2022-07-02 07:33 | P.PN ---
Subjective Progress Note Date: 07/01/22 Principal diagnosis: Bacteremia Patient is a 67 year old male presenting to the hospital in mental status changes and multiple falls did have a low-grade fever and elevated white count now with evidence of bacteremia. Patient is status post paracentesis with removal of 3 L of ascitic fluid completed on 06/30/2022 On today's evaluation that is 07/01/2022, the patient denies any fever or any chills, the patient is breathing comfortably on nasal cannula oxygen, the pa tient denies chest pain, the patient did have occasional cough but no sputum production, the patient did have some nausea but no vomiting, the patient still complaining of abdominal distention however no diarrhea reported by the nursing staff Objective - Vital Signs Vital signs: Vital Signs Temp 97.6 F 07/01/22 16:00 Pulse 84 07/01/22 16:00 Resp 16 07/01/22 16:00 BP 131/64 07/01/22 16:00 Pulse Ox 96 07/01/22 16:00 FiO2 Intake & Output 07/01/22 18:59 Intake Total 1080 Output Total 675 Balance 405 Weight 104.3 kg Intake: Oral 1080 Output: Urine 675 Uretheral ([place]) 675 Other: Voiding Method # Voids 1 # Bowel Movements 2 - Exam GENERAL DESCRIPTION: An elderly male lying in bed in no distress RESPIRATORY SYSTEM: Unlabored breathing , decreased breath sounds at bases HEART: S1 S2 regular rate and rhythm , ABDOMEN: Soft , no tenderness EXTREMITIES: No edema feet - Labs CBC & Chem 7: 07/01/22 05:54 07/01/22 05:54 Labs: Abnormal Lab Results - Last 24 Hours (Table) 07/01/22 07/01/22 07/01/22 Range/Units 05:54 05:54 11:17 WBC 19.85 H (4.50-10.00) X 10*3/uL RBC 3.49 L (4.40-5.60) X 10*6/uL Hgb 11.1 L (13.0-17.0) g/dL Hct 33.8 L (39.6-50.0) % Immature Gran # 0.38 H (0.00-0.04) X 10*3/uL Neutrophils # 12.47 H (1.80-7.70) X 10*3/uL Monocytes # 2.27 H (0.20-1.00) X 10*3/uL Eosinophils # 0.42 H (0.04-0.35) X 10*3/uL Sodium 134 L (135-145) mmol/L Anion Gap 8.50 L (10.00-18.00) mmol/L BUN 73.9 H (9.0-27.0) mg/dL Creatinine 1.8 H (0.6-1.5) mg/dL Est GFR (CKD-EPI)AfAm 43.8 L (60.0-200.0) Est GFR (CKD-EPI)NonAf 37.8 L (60.0-200.0) BUN/Creatinine Ratio 41.06 H (12.00-20.00) Ratio Glucose 145 H (70-110) mg/dL POC Glucose (mg/dL) 208 H (70-110) mg/dL Calcium 7.8 L (8.7-10.3) mg/dL AST 83 H (14-35) U/L Alkaline Phosphatase 130 H (41-126) U/L Total Protein 6.0 L (6.2-8.2) g/dL Albumin 2.6 L (3.8-4.9) g/dL Globulin 3.4 H (1.6-3.3) g/dL Albumin/Globulin Ratio 0.76 L (1.60-3.17) g/dL Urine Protein (Negative) Urine Ketones (Negative) Ur Random Sodium (40-220) mmol/L 07/01/22 07/01/22 07/01/22 Range/Units 16:20 16:51 17:24 WBC (4.50-10.00) X 10*3/uL RBC (4.40-5.60) X 10*6/uL Hgb (13.0-17.0) g/dL Hct (39.6-50.0) % Immature Gran # (0.00-0.04) X 10*3/uL Neutrophils # (1.80-7.70) X 10*3/uL Monocytes # (0.20-1.00) X 10*3/uL Eosinophils # (0.04-0.35) X 10*3/uL Sodium (135-145) mmol/L Anion Gap (10.00-18.00) mmol/L BUN (9.0-27.0) mg/dL Creatinine (0.6-1.5) mg/dL Est GFR (CKD-EPI)AfAm (60.0-200.0) Est GFR (CKD-EPI)NonAf (60.0-200.0) BUN/Creatinine Ratio (12.00-20.00) Ratio Glucose (70-110) mg/dL POC Glucose (mg/dL) 160 H (70-110) mg/dL Calcium (8.7-10.3) mg/dL AST (14-35) U/L Alkaline Phosphatase (41-126) U/L Total Protein (6.2-8.2) g/dL Albumin (3.8-4.9) g/dL Globulin (1.6-3.3) g/dL Albumin/Globulin Ratio (1.60-3.17) g/dL Urine Protein Trace H (Negative) Urine Ketones Trace H (Negative) Ur Random Sodium <20 L (40-220) mmol/L 07/01/22 Range/Units 20:30 WBC (4.50-10.00) X 10*3/uL RBC (4.40-5.60) X 10*6/uL Hgb (13.0-17.0) g/dL Hct (39.6-50.0) % Immature Gran # (0.00-0.04) X 10*3/uL Neutrophils # (1.80-7.70) X 10*3/uL Monocytes # (0.20-1.00) X 10*3/uL Eosinophils # (0.04-0.35) X 10*3/uL Sodium (135-145) mmol/L Anion Gap (10.00-18.00) mmol/L BUN (9.0-27.0) mg/dL Creatinine (0.6-1.5) mg/dL Est GFR (CKD-EPI)AfAm (60.0-200.0) Est GFR (CKD-EPI)NonAf (60.0-200.0) BUN/Creatinine Ratio (12.00-20.00) Ratio Glucose (70-110) mg/dL POC Glucose (mg/dL) 169 H (70-110) mg/dL Calcium (8.7-10.3) mg/dL AST (14-35) U/L Alkaline Phosphatase (41-126) U/L Total Protein (6.2-8.2) g/dL Albumin (3.8-4.9) g/dL Globulin (1.6-3.3) g/dL Albumin/Globulin Ratio (1.60-3.17) g/dL Urine Protein (Negative) Urine Ketones (Negative) Ur Random Sodium (40-220) mmol/L Microbiology - Last 24 Hours (Table) 06/29/22 15:12 Gram Stain - Preliminary Ascites Fluid Body Fluid Culture - Preliminary Assessment and Plan (1) Bacteremia Current Visit: Yes Status: Acute Code(s): R78.81 - BACTEREMIA SNOMED Code(s): 3678189 Plan: 1patient with sepsis in this patient who did have a fever elevated white count elevated lactic acid now with evidence of gram-positive bacteremia with a source possible aspiration pneumonia as repeat x-ray did showed increasing density left lower lobe as the patient currently do not have any other obvious focus is abdominal soft on clinical examination no evidence of any joint swelling or cellulitis was noticed. 2blood cultures has been finalized as Streptococcus agalactiae repeat blood cultures have been negative so far 3-repeat CT with evidence of ascites and possible colitis in the left lower quadrant area, patient is status post paracentesis, white count was only 59 and cultures are currently pending 4- patient continue with Unasyn white count and monitor his clinical course closely Time with Patient: Less than 30
[2022-07-02] MEDS: IPRATROPIUM-ALBUTEROL 3 ML NEB INHALATION SCH ×4 (07:34→20:49)
[2022-07-02] MEDS: ENOXAPARIN 40 MG/0.4 ML SYRINGE SQ SCH (08:21)
[2022-07-02] MEDS: METOPROLOL SUCCINATE (ER) 100 MG TAB.ER.24H PO SCH (08:21)
[2022-07-02] MEDS: LACTULOSE 20 GM/30 ML CUP PO SCH (08:21)
[2022-07-02] MEDS: INSULIN ASPART (NovoLOG) 100 UNIT/ML VIAL SQ SCH ×4 (08:21→21:07)
[2022-07-02] MEDS: ATORVASTATIN 40 MG TAB PO SCH (08:21)
[2022-07-02] MEDS: NICOTINE 14MG/24HR PATCH TRANSDERM SCH (08:21)
[2022-07-02] MEDS: PANTOPRAZOLE 40 MG/10 ML VIAL IVP SCH ×2 (08:22→21:06)
[2022-07-02] MEDS: SIMETHICONE 40 MG/0.6 ML DROPS 2,000 MG/30 ML BOTTLE PO SCH ×4 (08:22→21:12)
[2022-07-02 11:31] LABS: Glucose,Whole Blood 180 mg/dL (70-110)
[2022-07-02 11:55] LABS: African American GFR (CKD) 34.4 (60.0-200.0); Albumin 2.7 g/dL (3.8-4.9); Albumin/Globulin Ratio 0.84 (1.60-3.17); Anion Gap 9.7 mmol/L (10.00-18.00); BUN/Creat Ratio 35.73 Ratio (12.00-20.00); Blood Urea Nitrogen 78.6 mg/dL (9.0-27.0); Calcium 7.9 mg/dL (8.7-10.3); Carbon Dioxide 23.3 mmol/L (20.0-27.5); Globulin 3.2 g/dL (1.6-3.3); Non-African American GFR(CKD) 29.7 (60.0-200.0); Potassium 4.5 mmol/L (3.5-5.5); Total Bilirubin 0.6 mg/dL (0.30-1.20); Total Protein 5.9 g/dL (6.2-8.2)
--- NOTE | 2022-07-02 12:03 | P.PN ---
Subjective Progress Note Date: 07/02/22 On 06/24/2022 patient seen in follow-up in the intensive care unit. Patient is sedated, currently on Precedex at 0.5 mics per kilo per hour. He is on Precedex at 5 mg per hour. Lactated Ringer's at 75 ML per hour, remains sedated, very confused. No signs of any respiratory distress, he is on 4 L of oxygen per nasal cannula with pulse ox of 95%, his been afebrile, in sinus mechanism, rate is 79 BPM. His blood pressure is better controlled with Cleviprex infusion. It is currently 141/75. MRI of the brain was completed last night showing no evidence of a recent infarct, mild diffuse age-related cerebral atrophy and chronic small vessel ischemic changes. No abnormal enhancement was noted. Jose benitez's labs have been reviewed, white blood cell count is 20.0, hemoglobin is 12.7, INR is 1.4, sodium is 134, potassium is 4.8, chloride is 109, BUN is 65 creatinine 0.76. Last night's blood gas was also reviewed showing pO2 of 72, pCO2 of 32, and pH of 7.48. This was done on FiO2 of 32%. CTA chest a few days ago showed no evidence of pulmonary embolism, showed interstitial infiltrate and atelectasis, no suspicious pulmonary mass. EEG showed no focal slowing, epileptiform discharge or seizure. Echocardiogram showed EF of 60-65%. Blood culture showed strep agalactiae, group B. Follow-up blood cultures have shown no growth thus far. ID service is following, patient remains on cefazolin 2 g every 8 hours. Last night patient developed GI bleeding, and passed of a very large maroon-colored stool. Today's hemoglobin is 12.7 which is down from 14 from yesterday, platelet count is 141, INR is 1.4. GI service has been consulted for evaluation. On 06/25/2022 patient seen in follow-up in the intensive care unit, he is much more awake and alert, he is oriented 3, no confusion or agitation, resting comfortably in bed, NG tube has been inserted for abdominal distention yesterday, there has been no gastric output out of it, but abdomen although still distended and seems softer and less distended on today's exam, overnight patient had 5 episodes of small to moderate in size tarry stools. Remains on Protonix 40 mg twice daily, remains nothing by mouth except for ice chips, surgical consultation has been obtained, please refer to the consultation note. He remains on Lexapro rings at a rate of 75 ML per hour. Cleviprex drip has been discontinued however his blood pressure remains elevated this morning and in view of nothing by mouth status will have to be restarted for blood pressure control, he is in sinus mechanism. Denies any shortness of breath or chest pain, lung sounds are clear to auscultation, Precedex has been weaned off since 11:00 yesterday morning. Remains on cefazolin for strep group B and the blood culture, follow blood culture remains negative thus far. Vital signs have been stable. 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 Hemodynamically he remains stable, he is awake and alert, oriented 3, NG tube remains in place to low intermittent suction. Remains on ice chips otherwise nothing by mouth, likely Ringer's at a rate of 75 ML per hour. He is breathing comfortably, denies any chest pain, not on any vasopressor support, in sinus me chanism. Today's hemoglobin is 12.9, white blood cell count was 22.3. BUN is 42, creatinine 0.75. On 06/29/2022 patient seen in follow-up on medical surgical floor. His up in the chair, still complaining of some abdominal distention, he states he was able to pass some gas, and he has been passing bowel movements. Abdomen is soft. he remains on antibiotics cefazolin. Follow blood culture was negative for any growth. Patient has been afebrile, blood pressure is been stable, he denies any pulmonary symptoms. Flat plate of the abdomen showed ileus, Reglan was added. Patient remains on IV fluids at 100 mL an hour with 0.9 normal saline, renal profile is worsening and creatinine is up to 1.64. BUN is 63. on 06/30/2022 patient seen in follow-up on medical surgical floor. He is awak e, does not appear to be in any acute distress,denies any difficulty breathing, he remains on 2 L of oxygen the pulse ox of 97%, afebrile, abdomen is slightly tender, but soft, blood pressure stable, patient had CT of the abdomen and pelvis showing small to moderate volume ascites, hepatic cirrhosis with portal hypertension, enlarged spleen, and perisplenic collaterals, and circumferential wall thickening of the small bowel, consistent with nonspecific enteritis, and new diffusely edematous stomach. Surgical services are following. continues on Unasyn, ID service is following. ultrasound of the abdomen was obtained showing ascites. Patient is scheduled for paracentesis this afternoon. The patient is seen on 07/01/2022 in follow-up on the regular medical floor. he is currently resting in bed. Awake and alert in no acute distress. He did undergo a paracentesis yesterday with a 3.6 L of straw-colored fluid removed. Fluid culture is pending. white count 19.8. Hemoglobin 11.1. Sodium 134. Potassium 4.4. BUN 74. Creatinine 1.8. Glucose 145. AST 83. ALT 41. Alk phos 30. Albumin 2.6. He is continued on Unasyn. His abdomen remains quite distended. Flat plate of the abdomen revealed improved distention of small and large bowel. Mild persistent distention is noted. Mild residual ileus. 07 02 2022, the patient is more comfortable. He is having bowel movements activity and in fact his having liquidy stools for now. Abdomen is less distended. He feels less short of breath and he is very comfortable at this point in time. He remains on IV Unasyn. General surgeries on the case. The abdominal film that was yesterday showed improved distention of the small and large bowel and this was essentially consistent with some ileus. Labs from today shows a BUN of 78 and a creatinine of 2.2, the patient's sodium level of 134 and potassium level of 4.5 with a serum bicarb of 23. Objective - Vital Signs Vital signs: Vital Signs Temp 97.9 F 07/02/22 08:08 Pulse 89 07/02/22 11:25 Resp 18 07/02/22 08:08 BP 163/93 07/02/22 08:08 Pulse Ox 92 L 07/02/22 11:13 FiO2 Intake & Output 07/01/22 07/02/22 07/02/22 18:59 06:59 18:59 Intake Total 1080 Output Total 675 Balance 405 Weight 104.3 kg Intake: Oral 1080 Output: Urine 675 Uretheral (Russo) 675 Other: Voiding Method Indwelling Catheter # Voids 1 # Bowel Movements 2 - Exam GENERAL EXAM: Awake and alert 67-year-old male, on 4 L of oxygen, comfortable in no apparent distress. HEAD: Normocephalic/atraumatic. EYES: Normal reaction of pupils, equal size. Conjunctiva pink, sclera white. NOSE: Clear with pink turbinates. THROAT: No erythema or exudates. NECK: No masses, no JVD, no thyroid enlargement, no adenopathy. CHEST: No chest wall deformity. Symmetrical expansion. LUNGS: Equal air entry with no crackles, wheeze, rhonchi or dullness. CVS: Regular rate and rhythm, normal S1 and S2, no gallops, no murmurs, no rubs ABDOMEN: Distended, tympanic to percussion, nontender. No hepatosplenomegaly, normal bowel sounds, no guarding or rigidity. EXTREMITIES: No clubbing, no edema, no cyanosis, 2+ pulses and upper and lower extremities. MUSCULOSKELETAL: Muscle strength and tone normal. SPINE: No scoliosis or deformity SKIN: No rashes CENTRAL NERVOUS SYSTEM: Awake, slow to respond, No focal deficits, tone is normal in all 4 extremities. - Labs CBC & Chem 7: 07/01/22 05:54 07/02/22 07:12 Labs: Abnormal Lab Results - Last 24 Hours (Table) 07/01/22 07/01/22 07/01/22 Range/Units 16:20 16:51 17:24 Sodium (135-145) mmol/L Anion Gap (10.00-18.00) mmol/L BUN (9.0-27.0) mg/dL Creatinine (0.6-1.5) mg/dL Est GFR (CKD-EPI)AfAm (60.0-200.0) Est GFR (CKD-EPI)NonAf (60.0-200.0) BUN/Creatinine Ratio (12.00-20.00) Ratio Glucose (70-110) mg/dL POC Glucose (mg/dL) 160 H (70-110) mg/dL Calcium (8.7-10.3) mg/dL AST (14-35) U/L ALT (10-49) U/L Alkaline Phosphatase (41-126) U/L Total Protein (6.2-8.2) g/dL Albumin (3.8-4.9) g/dL Albumin/Globulin Ratio (1.60-3.17) g/dL Urine Protein Trace H (Negative) Urine Ketones Trace H (Negative) Ur Random Sodium <20 L (40-220) mmol/L 07/01/22 07/02/22 07/02/22 Range/Units 20:30 07:12 11:30 Sodium 134 L (135-145) mmol/L Anion Gap 9.70 L (10.00-18.00) mmol/L BUN 78.6 H (9.0-27.0) mg/dL Creatinine 2.2 H (0.6-1.5) mg/dL Est GFR (CKD-EPI)AfAm 34.4 L (60.0-200.0) Est GFR (CKD-EPI)NonAf 29.7 L (60.0-200.0) BUN/Creatinine Ratio 35.73 H (12.00-20.00) Ratio Glucose 141 H (70-110) mg/dL POC Glucose (mg/dL) 169 H 180 H (70-110) mg/dL Calcium 7.9 L (8.7-10.3) mg/dL AST 93 H (14-35) U/L ALT 61 H (10-49) U/L Alkaline Phosphatase 149 H (41-126) U/L Total Protein 5.9 L (6.2-8.2) g/dL Albumin 2.7 L (3.8-4.9) g/dL Albumin/Globulin Ratio 0.84 L (1.60-3.17) g/dL Urine Protein (Negative) Urine Ketones (Negative) Ur Random Sodium (40-220) mmol/L Microbiology - Last 24 Hours (Table) 06/29/22 15:12 Gram Stain - Preliminary Ascites Fluid Body Fluid Culture - Preliminary Assessment and Plan Plan: Assessment: Acute mental status changes, unknown etiology, related to sepsis, acute kidney injury. Mental status back to his baseline Bacteremia related to strep agalactiae, possibly abdominal source, currently on IV Unasyn and awaiting fluids culture from the ascitic fluid was collected. Cultures are negative for now. Ileus, improving Liquidy diarrhea probably related to laxatives Acute GI blood loss anemia, with passing maroon stools starting on 06/23/2022, GI service has been consulted, currently inactive in stable Acute kidney injury related to sepsis, improved and then worsened again, creatinine is up to 2.2 post paracentesis Hyponatremia, hypovolemic Possible urinary tract infection Multiple falls at home History of opiate dependence History of COPD/chronic bronchial asthma, unspecified History of chronic back pain History of anxiety Hypertension Hyperlipidemia Abdominal ascites, status post paracentesis 06/30/2022 with 3.6 L of straw- colored fluid removed, cultures pending Plan: Pulmonary status is stable Monitor renal function Continue IV Unasyn Check stool for C. diff Clinically stable and somewhat improved compared to yesterday. We'll continue to follow
--- NOTE | 2022-07-02 13:35 | P.PN ---
Subjective Progress Note Date: 07/02/22 Ag Souza, is a 67-year-old male who presented to [facility] emergency room after having a multiple falls at home, has significant mental status changes with somnolence and poor responsiveness, history per his , over the last 24 hours patient has been not feeling well, he fell twice at home, on the second time she was not able to wake him up and get him up from the floor through the bed, she called EMS and he was brought into emergency room. He was evaluated in the emergency room vital examination on presentation revealed a temperature of 97.3 pulse 82 respiration 16 blood pressure 121/67 pulse ox 97% on room air Laboratory data revealed a white blood count of 23.2 hemoglobin 14.4 platelet count 98,000 sodium 129 potassium 4.9 chloride 96 CO2 25 BUN 51 creatinine 2.24 troponin level was 0.02 COVID-19 testing was negative Testing in the emergency room revealed chest x-ray done in the emergency room did not reveal significant abnormality. Patient has a known history of degenerative disc disease with chronic pain maintained on narcotics for pain management he was given Narcan in the emergency room which led to improvement in his mental status. Patient was admitted to medical floor for further evaluation and treatment. On 06/22/2022 patient was seen and examined on the telemetry floor he is still somnolent, agitated, pulling on his IV line, he was started through the night on IV Ativan, vital examination reveals a temperature of 98.4 pulse 132 respiration 24 blood pressure 172/91 pulse ox 96% on 2 L nasal cannula, white blood count is 21.9 hemoglobin 14.8 platelet count 118 d-dimer was elevated at 2.12 at this time will start patient on IV heparin high-intensity for possible pulmonary embolism, his kidney function is still elevated, will defer computed tomography scan this time, he is not cooperative to proceed with VQ scan, will continue with IV fluid, nephrology consultation and infectious disease consultation were requested. On 06/23/2022 patient was seen and examined in the ICU he is more alert and oriented today vital exam reveals a temperature of 98.2 pulse 86 respiration 23 blood pressure 138/79 pulse ox 93% on 2 L nasal cannula white blood count is down to 15.4 hemoglobin 13.2 platelet count 125 kidney function improved with BUN at 66 and creatinine at 0.89 kidney ultrasound was done and revealed no evidence of renal stones or obstruction, CT angiogram of the chest was done and there was no evidence of pulmonary embolism, blood culture were positive for Streptococcus group b , patient is currently maintained on IV Unasyn, IV vanc omycin and IV acyclovir, cardiology, pulmonary, nephrology, neurology and infectious disease are following On 06/24/2022 patient was seen and examined in the ICU he is more alert and oriented today kidney ultrasound was done and revealed no evidence of renal stones or obstruction, CT angiogram of the chest was done and there was no evidence of pulmonary embolism, blood culture were positive for Streptococcus group b , patient is currently maintained on IV Unasyn, IV vancomycin and IV acyclovir, cardiology, pulmonary, nephrology, neurology and infectious disease are following. Patient had a maroon colored stools through the night, GI consultation is not available this week, surgical consultation was requested for evaluation for possible GI bleed On 06/25/2022 patient was seen and examined in the ICU, he is more alert and responsive today, there is no fever or chills no headache or dizziness no chest pain no shortness of breath no cough no nausea or vomiting no abdominal pain no diarrhea and no urinary symptoms. IV heparin has been discontinued, at this time will start subcu Lovenox for DVT prophylaxis, he remains on IV antibiotics cefazolin 2 g IV every 8 hours. On 06/26/2022 patient was seen and examined in the ICU he is alert and oriented 3 in no apparent distress he is complaining of abdominal discomfort otherwise he denies any complaint at this time there is no fever or chills no headache or dizziness no chest pain no shortness of breath no cough no nausea or vomiting no diarrhea no blood in the stools no burning with urination no frequency or urgency and no hematuria. On 06/27/2022 patient was seen and examined on in the ICU he is alert and oriented 3, he is feeling better, he had multiple bowel movements and his abdominal pain has improved, he is still complaining of difficulty sleeping at night otherwise he denies any complaints there is no fever or chills no headache or dizziness no chest pain no shortness of breath no cough no nausea or vomiting no abdominal pain no diarrhea no blood in the stools no burning with urination no frequency or urgency and no hematuria. On 06/28/2022 patient was seen and examined on the medical floor he is alert and oriented 3 in no distress there is no fever or chills no headache or dizziness no chest pain no shortness of breath no cough no nausea or vomiting no abdominal pain no diarrhea, no blood in the stools no burning with urination no frequency or urgency and no hematuria patient has generalized weakness he is improving gradually will continue to follow closely physical therapy is following On 06/29/2022 patient was seen and examined on the medical floor he is alert and oriented 3 in no apparent distress there is no fever or chills no headache or dizziness no chest pain no shortness of breath no cough no nausea or vomiting he is complaining of abdominal discomfort with abdominal distention no diarrhea or constipation no blood in the stools no burning with urination no frequency or urgency and no hematuria. At this time patient is scheduled for computed tomography scan of the abdomen and pelvis will continue to monitor closely. On 06/30/2022 patient was seen and examined on the telemetry floor he is alert and oriented 3 in no apparent distress he is complaining now of severe neck gina n and back pain and requesting [place], patient underwent paracentesis today, 3.5 L of fluid were removed, otherwise patient denies any other symptoms there is no fever or chills no headache or dizziness no chest pain no shortness of breath no cough no nausea or vomiting no abdominal pain no diarrhea and no urinary symptoms On 07/01/2022 patient was seen and examined on the medical floor he is alert and oriented 3 in no apparent distress he is complaining of abdominal discomfort and distention otherwise he denies any complaints at this time there is no fever or chills no headache or dizziness no chest pain no shortness of breath no cough no nausea or vomiting no diarrhea no blood in the stools no burning with urination no frequency or urgency and no hematuria On 07/02/2022 patient was seen and examined on the medical floor he is alert and oriented 3 in no apparent distress he is complaining of abdominal discomfort and distention, he is complaining of bilateral hip pain, he received 1 dose of lactulose and had multiple episodes of diarrhea afterwards lactulose was discontinued, otherwise he denies any complaints at this time there is no fever or chills no headache or dizziness no chest pain no shortness of breath no cough no nausea or vomiting no blood in the stools no burning with urination no frequency or urgency and no hematuria Objective - Vital Signs Vital signs: Vital Signs Temp 97.9 F 07/02/22 08:08 Pulse 89 07/02/22 11:25 Resp 18 07/02/22 08:08 BP 163/93 07/02/22 08:08 Pulse Ox 92 L 07/02/22 11:13 FiO2 Intake & Output 07/01/22 07/02/22 07/02/22 18:59 06:59 18:59 Intake Total 1080 Output Total 675 Balance 405 Weight 104.3 kg Intake: Oral 1080 Output: Urine 675 Uretheral (Russo) 675 Other: Voiding Method Indwelling Catheter # Voids 1 # Bowel Movements 2 - Exam In general patient is alert and responsive in no apparent distress HEENT head normocephalic and atraumatic Neck is supple no JVD no goiter no lymphadenopathy no carotid bruit Chest examination is clear to auscultation no crackles no wheezing Cardiac exam reveals regular heart sounds S1 and S2 no gallops no murmurs Abdomen is soft nontender no organomegaly with normal bowel sounds Extremity exam reveals no edema no cyanosis or clubbing Neurological examination reveals no gross focal deficits - Labs CBC & Chem 7: 07/01/22 05:54 07/02/22 07:12 Labs: Abnormal Lab Results - Last 24 Hours (Table) 07/01/22 07/01/22 07/01/22 Range/Units 16:20 16:51 17:24 Sodium (135-145) mmol/L Anion Gap (10.00-18.00) mmol/L BUN (9.0-27.0) mg/dL Creatinine (0.6-1.5) mg/dL Est GFR (CKD-EPI)AfAm (60.0-200.0) Est GFR (CKD-EPI)NonAf (60.0-200.0) BUN/Creatinine Ratio (12.00-20.00) Ratio Glucose (70-110) mg/dL POC Glucose (mg/dL) 160 H (70-110) mg/dL Calcium (8.7-10.3) mg/dL AST (14-35) U/L ALT (10-49) U/L Alkaline Phosphatase (41-126) U/L Total Protein (6.2-8.2) g/dL Albumin (3.8-4.9) g/dL Albumin/Globulin Ratio (1.60-3.17) g/dL Urine Protein Trace H (Negative) Urine Ketones Trace H (Negative) Ur Random Sodium <20 L (40-220) mmol/L 07/01/22 07/02/22 07/02/22 Range/Units 20:30 07:12 11:30 Sodium 134 L (135-145) mmol/L Anion Gap 9.70 L (10.00-18.00) mmol/L BUN 78.6 H (9.0-27.0) mg/dL Creatinine 2.2 H (0.6-1.5) mg/dL Est GFR (CKD-EPI)AfAm 34.4 L (60.0-200.0) Est GFR (CKD-EPI)NonAf 29.7 L (60.0-200.0) BUN/Creatinine Ratio 35.73 H (12.00-20.00) Ratio Glucose 141 H (70-110) mg/dL POC Glucose (mg/dL) 169 H 180 H (70-110) mg/dL Calcium 7.9 L (8.7-10.3) mg/dL AST 93 H (14-35) U/L ALT 61 H (10-49) U/L Alkaline Phosphatase 149 H (41-126) U/L Total Protein 5.9 L (6.2-8.2) g/dL Albumin 2.7 L (3.8-4.9) g/dL Albumin/Globulin Ratio 0.84 L (1.60-3.17) g/dL Urine Protein (Negative) Urine Ketones (Negative) Ur Random Sodium (40-220) mmol/L Microbiology - Last 24 Hours (Table) 06/29/22 15:12 Gram Stain - Preliminary Ascites Fluid Body Fluid Culture - Preliminary Assessment and Plan Plan: Mental status changes, cause is unclear could be related to overdose of narcotic Leukocytosis, no clear source of infection, chest x-ray and urine analysis don't show any clear evidence of infection, patient received IV steroids in the EMS and in the emergency room, will check lactic acid level and monitor CBC Acute exacerbation of COPD with wheezing on presentation, he was started on IV Solu-Medrol in the emergency room, he is on inhaled bronchodilators Evidence of acute kidney injury was elevated BUN and creatinine patient was started on IV fluid, nephrology consultation was requested Abdominal ascites, status post paracentesis 06/30/2022 with 3.5 L of fluid removed, Evidence of liver cirrhosis Mild elevation in troponin level will monitor Underlying history of hypertension Underlying history of hypothyroidism Underlying history of depression with anxiety disorder Underlying history of vitamin D deficiency Underlying history of degenerative disc disease with chronic back pain maintained on narcotics for pain management Underlying history of gastroesophageal reflux disease At this time patient is admitted to telemetry floor Will check d-dimer check lactic acid recheck CBC and CMP Continue with IV fluid and recheck renal function Consult nephrology
[2022-07-02 13:58] LABS: Basophils # (A) 0.07 X 10*3/uL (0.00-0.10); Basophils % (A) 0.4 %; Eosinophils # (A) 0.35 X 10*3/uL (0.04-0.35); Eosinophils % (A) 1.8 %; HCT 33.8 % (39.6-50.0); HGB 10.8 g/dL (13.0-17.0); Immature Grans, Automated 1.3 %; Lymphocytes # (A) 3.85 X 10*3/uL (0.90-5.00); Lymphocytes % (A) 19.6 %; MCV 100.3 fL (80.0-97.0); Mean Platelet Volume 11.6 fL (9.5-12.2); Monocytes # (A) 2.35 X 10*3/uL (0.20-1.00); NRBC Per 100 WBC 0 /100 WBCS (0.0-0.0); Neutrophils # (A) 12.74 X 10*3/uL (1.80-7.70); Neutrophils % (A) 64.9 %; Platelet Count 227 X 10*3/uL (140-440); RBC 3.37 X 10*6/uL (4.40-5.60); RDW 14.5 % (11.5-14.5); WBC 19.62 X 10*3/uL (4.50-10.00)
--- NOTE | 2022-07-02 14:23 | P.PN ---
Subjective Progress Note Date: 07/02/22 Follow-up for acute kidney injury. Russo was placed yesterday, 600 ML's of urine since then. Abdominal still distended, no nausea vomiting or diarrhea. Objective - Vital Signs Vital signs: Vital Signs Temp 97.4 F L 07/02/22 13:43 Pulse 79 07/02/22 13:43 Resp 18 07/02/22 13:43 BP 126/62 07/02/22 13:43 Pulse Ox 95 07/02/22 13:43 FiO2 Intake & Output 07/01/22 07/02/22 07/02/22 18:59 06:59 18:59 Intake Total 1080 Output Total 675 Balance 405 Weight 104.3 kg Intake: Oral 1080 Output: Urine 675 Uretheral (Russo) 675 Other: Voiding Method Indwelling Catheter # Voids 1 # Bowel Movements 2 - Exam No acute distress S1-S2 heard Lungs clear Abdomen distended, ascites Russo catheter No edema - Labs CBC & Chem 7: 07/02/22 07:12 07/02/22 07:12 Labs: Abnormal Lab Results - Last 24 Hours (Table) 07/01/22 07/01/22 07/01/22 Range/Units 16:20 16:51 17:24 WBC (4.50-10.00) X 10*3/uL RBC (4.40-5.60) X 10*6/uL Hgb (13.0-17.0) g/dL Hct (39.6-50.0) % MCV (80.0-97.0) fL Immature Gran # (0.00-0.04) X 10*3/uL Neutrophils # (1.80-7.70) X 10*3/uL Monocytes # (0.20-1.00) X 10*3/uL Sodium (135-145) mmol/L Anion Gap (10.00-18.00) mmol/L BUN (9.0-27.0) mg/dL Creatinine (0.6-1.5) mg/dL Est GFR (CKD-EPI)AfAm (60.0-200.0) Est GFR (CKD-EPI)NonAf (60.0-200.0) BUN/Creatinine Ratio (12.00-20.00) Ratio Glucose (70-110) mg/dL POC Glucose (mg/dL) 160 H (70-110) mg/dL Calcium (8.7-10.3) mg/dL AST (14-35) U/L ALT (10-49) U/L Alkaline Phosphatase (41-126) U/L Total Protein (6.2-8.2) g/dL Albumin (3.8-4.9) g/dL Albumin/Globulin Ratio (1.60-3.17) g/dL Urine Protein Trace H (Negative) Urine Ketones Trace H (Negative) Ur Random Sodium <20 L (40-220) mmol/L 07/01/22 07/02/22 07/02/22 Range/Units 20:30 07:12 07:12 WBC 19.62 H (4.50-10.00) X 10*3/uL RBC 3.37 L (4.40-5.60) X 10*6/uL Hgb 10.8 L (13.0-17.0) g/dL Hct 33.8 L (39.6-50.0) % MCV 100.3 H (80.0-97.0) fL Immature Gran # 0.26 H (0.00-0.04) X 10*3/uL Neutrophils # 12.74 H (1.80-7.70) X 10*3/uL Monocytes # 2.35 H (0.20-1.00) X 10*3/uL Sodium 134 L (135-145) mmol/L Anion Gap 9.70 L (10.00-18.00) mmol/L BUN 78.6 H (9.0-27.0) mg/dL Creatinine 2.2 H (0.6-1.5) mg/dL Est GFR (CKD-EPI)AfAm 34.4 L (60.0-200.0) Est GFR (CKD-EPI)NonAf 29.7 L (60.0-200.0) BUN/Creatinine Ratio 35.73 H (12.00-20.00) Ratio Glucose 141 H (70-110) mg/dL POC Glucose (mg/dL) 169 H (70-110) mg/dL Calcium 7.9 L (8.7-10.3) mg/dL AST 93 H (14-35) U/L ALT 61 H (10-49) U/L Alkaline Phosphatase 149 H (41-126) U/L Total Protein 5.9 L (6.2-8.2) g/dL Albumin 2.7 L (3.8-4.9) g/dL Albumin/Globulin Ratio 0.84 L (1.60-3.17) g/dL Urine Protein (Negative) Urine Ketones (Negative) Ur Random Sodium (40-220) mmol/L 07/02/22 Range/Units 11:30 WBC (4.50-10.00) X 10*3/uL RBC (4.40-5.60) X 10*6/uL Hgb (13.0-17.0) g/dL Hct (39.6-50.0) % MCV (80.0-97.0) fL Immature Gran # (0.00-0.04) X 10*3/uL Neutrophils # (1.80-7.70) X 10*3/uL Monocytes # (0.20-1.00) X 10*3/uL Sodium (135-145) mmol/L Anion Gap (10.00-18.00) mmol/L BUN (9.0-27.0) mg/dL Creatinine (0.6-1.5) mg/dL Est GFR (CKD-EPI)AfAm (60.0-200.0) Est GFR (CKD-EPI)NonAf (60.0-200.0) BUN/Creatinine Ratio (12.00-20.00) Ratio Glucose (70-110) mg/dL POC Glucose (mg/dL) 180 H (70-110) mg/dL Calcium (8.7-10.3) mg/dL AST (14-35) U/L ALT (10-49) U/L Alkaline Phosphatase (41-126) U/L Total Protein (6.2-8.2) g/dL Albumin (3.8-4.9) g/dL Albumin/Globulin Ratio (1.60-3.17) g/dL Urine Protein (Negative) Urine Ketones (Negative) Ur Random Sodium (40-220) mmol/L Microbiology - Last 24 Hours (Table) 06/29/22 15:12 Gram Stain - Preliminary Ascites Fluid Body Fluid Culture - Preliminary Assessment and Plan Assessment: #1 acute kidney injury multifactorial -Acute interstitial nephritis with recent antibiotic use -Hemodynamic ATN with low blood pressures and concomitant use of Cozaar. -Hepatorenal syndrome with urine sodium less than 20 -Baseline creatinine 0.7 MG per DL. #2 suspected aspiration pneumonia on cefazolin #3 hypotensive episodes improved after stopping Cozaar #4 ascites status post paracentesis #5. Enteritis Plan: #1 renal function worsening. #2 stop IV fluids with worsening ascites. #3 add albumin and octreotide. Blood pressures better no midodrine. #4 labs in the morning #5 avoid nephrotoxic agents and hypotensive episodes.
[2022-07-02] MEDS ORDERED: ALBUMIN HUMAN 25% 100 ML in EMPTY BAG 1 BAG IVPB SCH (14:30)
[2022-07-02] MEDS: ALBUMIN HUMAN 25% 50 ML in EMPTY BAG 1 BAG IVPB SCH ×7 (14:54→23:47)
[2022-07-02] MEDS ORDERED: OCTREOTIDE 100 MCG/ML INJ IVP SCH (16:00)
[2022-07-02 16:36] LABS: Glucose,Whole Blood 125 mg/dL (70-110)
[2022-07-02 20:50] LABS: Glucose,Whole Blood 180 mg/dL (70-110)
[2022-07-02] MEDS: ALPRAZolam 0.5 MG TAB PO SCH (21:06)
[2022-07-02] MEDS: MELATONIN 5 MG TABLET PO SCH (21:07)
[2022-07-03] MEDS: IPRATROPIUM-ALBUTEROL 3 ML NEB INHALATION PRN ×3 (01:01→23:46)
[2022-07-03] MEDS: ALBUMIN HUMAN 25% 50 ML in EMPTY BAG 1 BAG IVPB SCH ×6 (01:14→23:06)
[2022-07-03] MEDS: LORazepam 0.5 MG TAB PO PRN (02:01)
[2022-07-03] MEDS: HYDROcodone/APAP 5-325MG 1 EACH TAB PO PRN ×2 (02:01→09:34)
[2022-07-03] MEDS: METOCLOPRAMIDE 5 MG/ML 2 ML VIAL IVP SCH ×4 (02:37→17:01)
[2022-07-03] MEDS: AMPICILLIN-SULBACTAM 3 GM in SODIUM CHLORIDE 0.9% 100 ML IVPB SCH ×3 (02:42→17:01)
[2022-07-03] MEDS: OCTREOTIDE 100 MCG/ML INJ IVP SCH ×3 (05:39→14:55)
[2022-07-03 06:44] LABS: Glucose,Whole Blood 131 mg/dL (70-110)
[2022-07-03] MEDS: IPRATROPIUM-ALBUTEROL 3 ML NEB INHALATION SCH ×4 (07:52→19:45)
[2022-07-03] MEDS: INSULIN ASPART (NovoLOG) 100 UNIT/ML VIAL SQ SCH ×4 (07:59→20:22)
[2022-07-03] MEDS: LEVOTHYROXINE 88 MCG TAB PO SCH (08:16)
[2022-07-03] MEDS: METOPROLOL SUCCINATE (ER) 100 MG TAB.ER.24H PO SCH (08:16)
[2022-07-03] MEDS: ATORVASTATIN 40 MG TAB PO SCH (08:16)
[2022-07-03] MEDS: SIMETHICONE 40 MG/0.6 ML DROPS 2,000 MG/30 ML BOTTLE PO SCH ×4 (08:17→23:07)
[2022-07-03] MEDS: ENOXAPARIN 40 MG/0.4 ML SYRINGE SQ SCH (08:17)
[2022-07-03] MEDS: PANTOPRAZOLE 40 MG/10 ML VIAL IVP SCH ×2 (08:17→20:44)
[2022-07-03] MEDS: NICOTINE 14MG/24HR PATCH TRANSDERM SCH (08:17)
--- NOTE | 2022-07-03 10:18 | P.PN ---
Subjective Progress Note Date: 07/02/22 Principal diagnosis: Bacteremia Patient is a 67 year old male presenting to the hospital in mental status changes and multiple falls did have a low-grade fever and elevated white count now with evidence of bacteremia. Patient is status post paracentesis with removal of 3 L of ascitic fluid completed on 06/30/2022 On today's evaluation that is 07/02/2022, the patient remains to be afebrile, the patient is breathing comfortably on nasal cannula oxygen, the patient denies chest pain, the patient did have mild dry cough, the patient did have some nausea but no vomiting, the patient still complaining of abdominal distention however no diarrhea Objective - Vital Signs Vital signs: Vital Signs Temp 97.4 F L 07/02/22 13:43 Pulse 92 07/02/22 16:08 Resp 18 07/02/22 13:43 BP 126/62 07/02/22 13:43 Pulse Ox 95 07/02/22 13:43 FiO2 Intake & Output 07/01/22 07/02/22 07/02/22 18:59 06:59 18:59 Intake Total 1080 Output Total 675 Balance 405 Weight 104.3 kg Intake: Oral 1080 Output: Urine 675 Uretheral (Russo) 675 Other: Voiding Method Indwelling Catheter # Voids 1 # Bowel Movements 2 - Exam GENERAL DESCRIPTION: An elderly male lying in bed in no distress RESPIRATORY SYSTEM: Unlabored breathing , decreased breath sounds at bases HEART: S1 S2 regular rate and rhythm , ABDOMEN: Soft , no tenderness EXTREMITIES: No edema feet - Labs CBC & Chem 7: 07/02/22 07:12 07/02/22 07:12 Labs: Abnormal Lab Results - Last 24 Hours (Table) 07/01/22 07/01/22 07/01/22 Range/Units 16:51 17:24 20:30 WBC (4.50-10.00) X 10*3/uL RBC (4.40-5.60) X 10*6/uL Hgb (13.0-17.0) g/dL Hct (39.6-50.0) % MCV (80.0-97.0) fL Immature Gran # (0.00-0.04) X 10*3/uL Neutrophils # (1.80-7.70) X 10*3/uL Monocytes # (0.20-1.00) X 10*3/uL Sodium (135-145) mmol/L Anion Gap (10.00-18.00) mmol/L BUN (9.0-27.0) mg/dL Creatinine (0.6-1.5) mg/dL Est GFR (CKD-EPI)AfAm (60.0-200.0) Est GFR (CKD-EPI)NonAf (60.0-200.0) BUN/Creatinine Ratio (12.00-20.00) Ratio Glucose (70-110) mg/dL POC Glucose (mg/dL) 169 H (70-110) mg/dL Calcium (8.7-10.3) mg/dL AST (14-35) U/L ALT (10-49) U/L Alkaline Phosphatase (41-126) U/L Total Protein (6.2-8.2) g/dL Albumin (3.8-4.9) g/dL Albumin/Globulin Ratio (1.60-3.17) g/dL Urine Protein Trace H (Negative) Urine Ketones Trace H (Negative) Ur Random Sodium <20 L (40-220) mmol/L 07/02/22 07/02/22 07/02/22 Range/Units 07:12 07:12 11:30 WBC 19.62 H (4.50-10.00) X 10*3/uL RBC 3.37 L (4.40-5.60) X 10*6/uL Hgb 10.8 L (13.0-17.0) g/dL Hct 33.8 L (39.6-50.0) % MCV 100.3 H (80.0-97.0) fL Immature Gran # 0.26 H (0.00-0.04) X 10*3/uL Neutrophils # 12.74 H (1.80-7.70) X 10*3/uL Monocytes # 2.35 H (0.20-1.00) X 10*3/uL Sodium 134 L (135-145) mmol/L Anion Gap 9.70 L (10.00-18.00) mmol/L BUN 78.6 H (9.0-27.0) mg/dL Creatinine 2.2 H (0.6-1.5) mg/dL Est GFR (CKD-EPI)AfAm 34.4 L (60.0-200.0) Est GFR (CKD-EPI)NonAf 29.7 L (60.0-200.0) BUN/Creatinine Ratio 35.73 H (12.00-20.00) Ratio Glucose 141 H (70-110) mg/dL POC Glucose (mg/dL) 180 H (70-110) mg/dL Calcium 7.9 L (8.7-10.3) mg/dL AST 93 H (14-35) U/L ALT 61 H (10-49) U/L Alkaline Phosphatase 149 H (41-126) U/L Total Protein 5.9 L (6.2-8.2) g/dL Albumin 2.7 L (3.8-4.9) g/dL Albumin/Globulin Ratio 0.84 L (1.60-3.17) g/dL Urine Protein (Negative) Urine Ketones (Negative) Ur Random Sodium (40-220) mmol/L Microbiology - Last 24 Hours (Table) 06/29/22 15:12 Gram Stain - Preliminary Ascites Fluid Body Fluid Culture - Preliminary Assessment and Plan (1) Bacteremia Current Visit: Yes Status: Acute Code(s): R78.81 - BACTEREMIA SNOMED Code(s): 6590343 Plan: 1patient with sepsis in this patient who did have a fever elevated white count elevated lactic acid now with evidence of gram-positive bacteremia with a source possible aspiration pneumonia as repeat x-ray did showed increasing density left lower lobe as the patient currently do not have any other obvious focus is abdominal soft on clinical examination no evidence of any joint swelling or cellulitis was noticed. 2blood cultures has been finalized as Streptococcus agalactiae repeat blood cultures have been negative so far 3-repeat CT with evidence of ascites and possible colitis in the left lower quadrant area, patient is status post paracentesis, white count was only 59 and cultures are currently pending 4- patient has shown some clinical improvement and will continue with Unasyn white count and monitor his clinical course closely Time with Patient: Less than 30
--- NOTE | 2022-07-03 10:32 | P.PN ---
Subjective Progress Note Date: 07/02/22 CHIEF COMPLAINT: Abdominal distention HISTORY OF PRESENT ILLNESS: The patient is a 67-year-old male with abdominal ascites, duodenitis, enteritis without active complaints. at bedside reports patient tolerated contact ramires chicken. He is on dysphagia diet. He is having bowel movements. ROS: No reports of nausea and vomiting. No fevers or chills. No new chest pain. PHYSICAL EXAM: VITAL SIGNS: Reviewed CONSTITUTIONAL: Well developed and in no acute distress. EYES: Conjuctivae without sclera icterus. Extraocular movements grossly intact. HEAD, EARS, NOSE, THROAT: Moist buccal mucosa. Head is atraumatic, normocephalic. Hears conversational speech. No nasal drainage. RESPIRATORY: Non-labored respirations and equal bilateral excursions. CARDIOVASCULAR: Palpable 2+ radial pulses. ABDOMEN: Present abdominal ascites. No peritonitis. MUSCULOSKELETAL: No gross deformity of the lower extremities noted. No clubbing. No cyanosis. SKIN: Good skin turgor. Well perfused. NEUROLOGIC: Cranial nerves II through XII grossly intact. No focal or lateralizing signs. PSYCH: Appropriate affect. Alert and oriented to person, place and time. CLINICAL LABS: Reviewed. WBC down 24,000-19,000. Creatinine elevated to 0.2 from 1.8. ASSESSMENT: 1. Duodenitis 2. Gastritis 3. Cirrhosis with abdominal ascites PLAN: 1. Diet as tolerated 2. Continue supportive care 3. Therapeutic paracentesis as needed Objective - Vital Signs Vital signs: Vital Signs Temp 97.6 F 07/02/22 20:00 Pulse 84 07/02/22 21:00 Resp 20 07/02/22 20:00 BP 107/66 07/02/22 20:00 Pulse Ox 95 07/02/22 20:00 FiO2 Intake & Output 07/02/22 07/02/22 07/03/22 06:59 18:59 06:59 Output Total 500 Balance -500 Output: Urine 500 Other: Voiding Method Indwelling Catheter Indwelling Catheter - Labs CBC & Chem 7: 07/02/22 07:12 07/02/22 07:12 Labs: Abnormal Lab Results - Last 24 Hours (Table) 07/01/22 07/02/22 07/02/22 Range/Units 16:51 07:12 07:12 WBC 19.62 H (4.50-10.00) X 10*3/uL RBC 3.37 L (4.40-5.60) X 10*6/uL Hgb 10.8 L (13.0-17.0) g/dL Hct 33.8 L (39.6-50.0) % MCV 100.3 H (80.0-97.0) fL Immature Gran # 0.26 H (0.00-0.04) X 10*3/uL Neutrophils # 12.74 H (1.80-7.70) X 10*3/uL Monocytes # 2.35 H (0.20-1.00) X 10*3/uL Sodium 134 L (135-145) mmol/L Anion Gap 9.70 L (10.00-18.00) mmol/L BUN 78.6 H (9.0-27.0) mg/dL Creatinine 2.2 H (0.6-1.5) mg/dL Est GFR (CKD-EPI)AfAm 34.4 L (60.0-200.0) Est GFR (CKD-EPI)NonAf 29.7 L (60.0-200.0) BUN/Creatinine Ratio 35.73 H (12.00-20.00) Ratio Glucose 141 H (70-110) mg/dL POC Glucose (mg/dL) (70-110) mg/dL Calcium 7.9 L (8.7-10.3) mg/dL AST 93 H (14-35) U/L ALT 61 H (10-49) U/L Alkaline Phosphatase 149 H (41-126) U/L Total Protein 5.9 L (6.2-8.2) g/dL Albumin 2.7 L (3.8-4.9) g/dL Albumin/Globulin Ratio 0.84 L (1.60-3.17) g/dL Ur Random Sodium <20 L (40-220) mmol/L 07/02/22 07/02/22 07/02/22 Range/Units 11:30 16:35 20:48 WBC (4.50-10.00) X 10*3/uL RBC (4.40-5.60) X 10*6/uL Hgb (13.0-17.0) g/dL Hct (39.6-50.0) % MCV (80.0-97.0) fL Immature Gran # (0.00-0.04) X 10*3/uL Neutrophils # (1.80-7.70) X 10*3/uL Monocytes # (0.20-1.00) X 10*3/uL Sodium (135-145) mmol/L Anion Gap (10.00-18.00) mmol/L BUN (9.0-27.0) mg/dL Creatinine (0.6-1.5) mg/dL Est GFR (CKD-EPI)AfAm (60.0-200.0) Est GFR (CKD-EPI)NonAf (60.0-200.0) BUN/Creatinine Ratio (12.00-20.00) Ratio Glucose (70-110) mg/dL POC Glucose (mg/dL) 180 H 125 H 180 H (70-110) mg/dL Calcium (8.7-10.3) mg/dL AST (14-35) U/L ALT (10-49) U/L Alkaline Phosphatase (41-126) U/L Total Protein (6.2-8.2) g/dL Albumin (3.8-4.9) g/dL Albumin/Globulin Ratio (1.60-3.17) g/dL Ur Random Sodium (40-220) mmol/L Microbiology - Last 24 Hours (Table) 06/29/22 15:12 Gram Stain - Preliminary Ascites Fluid Body Fluid Culture - Preliminary
[2022-07-03] MEDS: CALCIUM CARBONATE 500 MG CHEWABLE PO PRN ×2 (10:35→17:39)
--- NOTE | 2022-07-03 10:51 | P.PN ---
Subjective Progress Note Date: 07/03/22 Ag Souza, is a 67-year-old male who presented to [facility] emergency room after having a multiple falls at home, has significant mental status changes with somnolence and poor responsiveness, history per his , over the last 24 hours patient has been not feeling well, he fell twice at home, on the second time she was not able to wake him up and get him up from the floor through the bed, she called EMS and he was brought into emergency room. He was evaluated in the emergency room vital examination on presentation revealed a temperature of 97.3 pulse 82 respiration 16 blood pressure 121/67 pulse ox 97% on room air Laboratory data revealed a white blood count of 23.2 hemoglobin 14.4 platelet count 98,000 sodium 129 potassium 4.9 chloride 96 CO2 25 BUN 51 creatinine 2.24 troponin level was 0.02 COVID-19 testing was negative Testing in the emergency room revealed chest x-ray done in the emergency room did not reveal significant abnormality. Patient has a known history of degenerative disc disease with chronic pain maintained on narcotics for pain management he was given Narcan in the emergency room which led to improvement in his mental status. Patient was admitted to medical floor for further evaluation and treatment. On 06/22/2022 patient was seen and examined on the telemetry floor he is still somnolent, agitated, pulling on his IV line, he was started through the night on IV Ativan, vital examination reveals a temperature of 98.4 pulse 132 respiration 24 blood pressure 172/91 pulse ox 96% on 2 L nasal cannula, white blood count is 21.9 hemoglobin 14.8 platelet count 118 d-dimer was elevated at 2.12 at this time will start patient on IV heparin high-intensity for possible pulmonary embolism, his kidney function is still elevated, will defer computed tomography scan this time, he is not cooperative to proceed with VQ scan, will continue with IV fluid, nephrology consultation and infectious disease consultation were requested. On 06/23/2022 patient was seen and examined in the ICU he is more alert and oriented today vital exam reveals a temperature of 98.2 pulse 86 respiration 23 blood pressure 138/79 pulse ox 93% on 2 L nasal cannula white blood count is down to 15.4 hemoglobin 13.2 platelet count 125 kidney function improved with BUN at 66 and creatinine at 0.89 kidney ultrasound was done and revealed no evidence of renal stones or obstruction, CT angiogram of the chest was done and there was no evidence of pulmonary embolism, blood culture were positive for Streptococcus group b , patient is currently maintained on IV Unasyn, IV vanc omycin and IV acyclovir, cardiology, pulmonary, nephrology, neurology and infectious disease are following On 06/24/2022 patient was seen and examined in the ICU he is more alert and oriented today kidney ultrasound was done and revealed no evidence of renal stones or obstruction, CT angiogram of the chest was done and there was no evidence of pulmonary embolism, blood culture were positive for Streptococcus group b , patient is currently maintained on IV Unasyn, IV vancomycin and IV acyclovir, cardiology, pulmonary, nephrology, neurology and infectious disease are following. Patient had a maroon colored stools through the night, GI consultation is not available this week, surgical consultation was requested for evaluation for possible GI bleed On 06/25/2022 patient was seen and examined in the ICU, he is more alert and responsive today, there is no fever or chills no headache or dizziness no chest pain no shortness of breath no cough no nausea or vomiting no abdominal pain no diarrhea and no urinary symptoms. IV heparin has been discontinued, at this time will start subcu Lovenox for DVT prophylaxis, he remains on IV antibiotics cefazolin 2 g IV every 8 hours. On 06/26/2022 patient was seen and examined in the ICU he is alert and oriented 3 in no apparent distress he is complaining of abdominal discomfort otherwise he denies any complaint at this time there is no fever or chills no headache or dizziness no chest pain no shortness of breath no cough no nausea or vomiting no diarrhea no blood in the stools no burning with urination no frequency or urgency and no hematuria. On 06/27/2022 patient was seen and examined on in the ICU he is alert and oriented 3, he is feeling better, he had multiple bowel movements and his abdominal pain has improved, he is still complaining of difficulty sleeping at night otherwise he denies any complaints there is no fever or chills no headache or dizziness no chest pain no shortness of breath no cough no nausea or vomiting no abdominal pain no diarrhea no blood in the stools no burning with urination no frequency or urgency and no hematuria. On 06/28/2022 patient was seen and examined on the medical floor he is alert and oriented 3 in no distress there is no fever or chills no headache or dizziness no chest pain no shortness of breath no cough no nausea or vomiting no abdominal pain no diarrhea, no blood in the stools no burning with urination no frequency or urgency and no hematuria patient has generalized weakness he is improving gradually will continue to follow closely physical therapy is following On 06/29/2022 patient was seen and examined on the medical floor he is alert and oriented 3 in no apparent distress there is no fever or chills no headache or dizziness no chest pain no shortness of breath no cough no nausea or vomiting he is complaining of abdominal discomfort with abdominal distention no diarrhea or constipation no blood in the stools no burning with urination no frequency or urgency and no hematuria. At this time patient is scheduled for computed tomography scan of the abdomen and pelvis will continue to monitor closely. On 06/30/2022 patient was seen and examined on the telemetry floor he is alert and oriented 3 in no apparent distress he is complaining now of severe neck gina n and back pain and requesting Rickreall, patient underwent paracentesis today, 3.5 L of fluid were removed, otherwise patient denies any other symptoms there is no fever or chills no headache or dizziness no chest pain no shortness of breath no cough no nausea or vomiting no abdominal pain no diarrhea and no urinary symptoms On 07/01/2022 patient was seen and examined on the medical floor he is alert and oriented 3 in no apparent distress he is complaining of abdominal discomfort and distention otherwise he denies any complaints at this time there is no fever or chills no headache or dizziness no chest pain no shortness of breath no cough no nausea or vomiting no diarrhea no blood in the stools no burning with urination no frequency or urgency and no hematuria On 07/02/2022 patient was seen and examined on the medical floor he is alert and oriented 3 in no apparent distress he is complaining of abdominal discomfort and distention, he is complaining of bilateral hip pain, he received 1 dose of lactulose and had multiple episodes of diarrhea afterwards lactulose was discontinued, otherwise he denies any complaints at this time there is no fever or chills no headache or dizziness no chest pain no shortness of breath no cough no nausea or vomiting no blood in the stools no burning with urination no frequency or urgency and no hematuria. On 07/03/2022 patient was seen and examined the medical he is alert and oriented he is complaining of abdominal distention was discomfort and shortness of breath otherwise he denies any complaints there is no fever or chills no headache or dizziness no chest pain no cough no nausea or vomiting no urinary symptoms Objective - Vital Signs Vital signs: Vital Signs Temp 97.5 F L 07/03/22 07:58 Pulse 88 07/03/22 08:03 Resp 16 07/03/22 07:58 BP 127/71 07/03/22 07:58 Pulse Ox 96 07/03/22 07:58 FiO2 50 07/03/22 05:06 Intake & Output 07/02/22 07/03/22 07/03/22 18:59 06:59 18:59 Output Total 500 650 Balance -500 -650 Output: Urine 500 650 Other: Voiding Method Indwelling Catheter - Exam In general patient is alert and responsive in no apparent distress HEENT head normocephalic and atraumatic Neck is supple no JVD no goiter no lymphadenopathy no carotid bruit Chest examination is clear to auscultation no crackles no wheezing Cardiac exam reveals regular heart sounds S1 and S2 no gallops no murmurs Abdomen is distended with generalized tenderness, no organomegaly Extremity exam reveals no edema no cyanosis or clubbing Neurological examination reveals no gross focal deficits - Labs CBC & Chem 7: 07/02/22 07:12 07/02/22 07:12 Labs: Abnormal Lab Results - Last 24 Hours (Table) 07/02/22 07/02/22 07/02/22 Range/Units 07:12 07:12 11:30 WBC 19.62 H (4.50-10.00) X 10*3/uL RBC 3.37 L (4.40-5.60) X 10*6/uL Hgb 10.8 L (13.0-17.0) g/dL Hct 33.8 L (39.6-50.0) % MCV 100.3 H (80.0-97.0) fL Immature Gran # 0.26 H (0.00-0.04) X 10*3/uL Neutrophils # 12.74 H (1.80-7.70) X 10*3/uL Monocytes # 2.35 H (0.20-1.00) X 10*3/uL Sodium 134 L (135-145) mmol/L Anion Gap 9.70 L (10.00-18.00) mmol/L BUN 78.6 H (9.0-27.0) mg/dL Creatinine 2.2 H (0.6-1.5) mg/dL Est GFR (CKD-EPI)AfAm 34.4 L (60.0-200.0) Est GFR (CKD-EPI)NonAf 29.7 L (60.0-200.0) BUN/Creatinine Ratio 35.73 H (12.00-20.00) Ratio Glucose 141 H (70-110) mg/dL POC Glucose (mg/dL) 180 H (70-110) mg/dL Calcium 7.9 L (8.7-10.3) mg/dL AST 93 H (14-35) U/L ALT 61 H (10-49) U/L Alkaline Phosphatase 149 H (41-126) U/L Total Protein 5.9 L (6.2-8.2) g/dL Albumin 2.7 L (3.8-4.9) g/dL Albumin/Globulin Ratio 0.84 L (1.60-3.17) g/dL 07/02/22 07/02/22 07/03/22 Range/Units 16:35 20:48 06:41 WBC (4.50-10.00) X 10*3/uL RBC (4.40-5.60) X 10*6/uL Hgb (13.0-17.0) g/dL Hct (39.6-50.0) % MCV (80.0-97.0) fL Immature Gran # (0.00-0.04) X 10*3/uL Neutrophils # (1.80-7.70) X 10*3/uL Monocytes # (0.20-1.00) X 10*3/uL Sodium (135-145) mmol/L Anion Gap (10.00-18.00) mmol/L BUN (9.0-27.0) mg/dL Creatinine (0.6-1.5) mg/dL Est GFR (CKD-EPI)AfAm (60.0-200.0) Est GFR (CKD-EPI)NonAf (60.0-200.0) BUN/Creatinine Ratio (12.00-20.00) Ratio Glucose (70-110) mg/dL POC Glucose (mg/dL) 125 H 180 H 131 H (70-110) mg/dL Calcium (8.7-10.3) mg/dL AST (14-35) U/L ALT (10-49) U/L Alkaline Phosphatase (41-126) U/L Total Protein (6.2-8.2) g/dL Albumin (3.8-4.9) g/dL Albumin/Globulin Ratio (1.60-3.17) g/dL Microbiology - Last 24 Hours (Table) 06/29/22 15:12 Gram Stain - Preliminary Ascites Fluid Body Fluid Culture - Preliminary Assessment and Plan Plan: Mental status changes, cause is unclear could be related to overdose of narcotic Leukocytosis, no clear source of infection, chest x-ray and urine analysis don't show any clear evidence of infection, patient received IV steroids in the EMS and in the emergency room, will check lactic acid level and monitor CBC Acute exacerbation of COPD with wheezing on presentation, he was started on IV Solu-Medrol in the emergency room, he is on inhaled bronchodilators Evidence of acute kidney injury was elevated BUN and creatinine patient was started on IV fluid, nephrology consultation was requested Abdominal ascites, status post paracentesis 06/30/2022 with 3.5 L of fluid removed, Evidence of liver cirrhosis Mild elevation in troponin level will monitor Underlying history of hypertension Underlying history of hypothyroidism Underlying history of depression with anxiety disorder Underlying history of vitamin D deficiency Underlying history of degenerative disc disease with chronic back pain maintained on narcotics for pain management Underlying history of gastroesophageal reflux disease At this time patient is admitted to telemetry floor Will check d-dimer check lactic acid recheck CBC and CMP Continue with IV fluid and recheck renal function Consult nephrology
[2022-07-03 10:55] LABS: Basophils # (A) 0.1 k/uL (0-0.2); Basophils % (A) 0 %; Eosinophils # (A) 0.2 k/uL (0-0.7); Eosinophils % (A) 1 %; HCT 32.5 % (39.0-53.0); HGB 10.3 gm/dL (13.0-17.5); Hypochromasia Slight; Lymphocytes # (A) 2.1 k/uL (1.0-4.8); Lymphocytes % (A) 13 %; MCH 31.6 pg (25.0-35.0); MCHC 31.6 g/dL (31.0-37.0); Macrocytosis Slight; Monocytes % (A) 6 %; Neutrophils # (A) 12.4 k/uL (1.3-7.7); Neutrophils % (A) 78 %; Platelet Count 176 k/uL (150-450); RBC 3.25 m/uL (4.30-5.90); RDW 14.2 % (11.5-15.5)
[2022-07-03 11:16] LABS: ALT 35 U/L (4-49); AST 68 U/L (17-59); African American GFR (CKD) 45 (>60 ml/min/1.73 sqM); Albumin 3.7 g/dL (3.5-5.0); Albumin/Globulin Ratio 1.2; Alkaline Phosphatase 133 U/L (38-126); Anion Gap 11 mmol/L; Blood Urea Nitrogen 75 mg/dL (9-20); Calcium 7.9 mg/dL (8.4-10.2); Carbon Dioxide 24 mmol/L (22-30); Chloride 101 mmol/L (98-107); Glucose 143 mg/dL (74-99); Non-African American GFR(CKD) 39 (>60 ml/min/1.73 sqM); Potassium 4.4 mmol/L (3.5-5.1); Sodium 136 mmol/L (137-145); Total Protein 6.7 g/dL (6.3-8.2)
[2022-07-03 11:21] LABS: Glucose,Whole Blood 187 mg/dL (70-110)
--- NOTE | 2022-07-03 11:37 | P.PN ---
Subjective Progress Note Date: 07/03/22 On 06/24/2022 patient seen in follow-up in the intensive care unit. Patient is sedated, currently on Precedex at 0.5 mics per kilo per hour. He is on Precedex at 5 mg per hour. Lactated Ringer's at 75 ML per hour, remains sedated, very confused. No signs of any respiratory distress, he is on 4 L of oxygen per nasal cannula with pulse ox of 95%, his been afebrile, in sinus mechanism, rate is 79 BPM. His blood pressure is better controlled with Cleviprex infusion. It is currently 141/75. MRI of the brain was completed last night showing no evidence of a recent infarct, mild diffuse age-related cerebral atrophy and chronic small vessel ischemic changes. No abnormal enhancement was noted. Jose benitez's labs have been reviewed, white blood cell count is 20.0, hemoglobin is 12.7, INR is 1.4, sodium is 134, potassium is 4.8, chloride is 109, BUN is 65 creatinine 0.76. Last night's blood gas was also reviewed showing pO2 of 72, pCO2 of 32, and pH of 7.48. This was done on FiO2 of 32%. CTA chest a few days ago showed no evidence of pulmonary embolism, showed interstitial infiltrate and atelectasis, no suspicious pulmonary mass. EEG showed no focal slowing, epileptiform discharge or seizure. Echocardiogram showed EF of 60-65%. Blood culture showed strep agalactiae, group B. Follow-up blood cultures have shown no growth thus far. ID service is following, patient remains on cefazolin 2 g every 8 hours. Last night patient developed GI bleeding, and passed of a very large maroon-colored stool. Today's hemoglobin is 12.7 which is down from 14 from yesterday, platelet count is 141, INR is 1.4. GI service has been consulted for evaluation. On 06/25/2022 patient seen in follow-up in the intensive care unit, he is much more awake and alert, he is oriented 3, no confusion or agitation, resting comfortably in bed, NG tube has been inserted for abdominal distention yesterday, there has been no gastric output out of it, but abdomen although still distended and seems softer and less distended on today's exam, overnight patient had 5 episodes of small to moderate in size tarry stools. Remains on Protonix 40 mg twice daily, remains nothing by mouth except for ice chips, surgical consultation has been obtained, please refer to the consultation note. He remains on Lexapro rings at a rate of 75 ML per hour. Cleviprex drip has been discontinued however his blood pressure remains elevated this morning and in view of nothing by mouth status will have to be restarted for blood pressure control, he is in sinus mechanism. Denies any shortness of breath or chest pain, lung sounds are clear to auscultation, Precedex has been weaned off since 11:00 yesterday morning. Remains on cefazolin for strep group B and the blood culture, follow blood culture remains negative thus far. Vital signs have been stable. 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 Hemodynamically he remains stable, he is awake and alert, oriented 3, NG tube remains in place to low intermittent suction. Remains on ice chips otherwise nothing by mouth, likely Ringer's at a rate of 75 ML per hour. He is breathing comfortably, denies any chest pain, not on any vasopressor support, in sinus me chanism. Today's hemoglobin is 12.9, white blood cell count was 22.3. BUN is 42, creatinine 0.75. On 06/29/2022 patient seen in follow-up on medical surgical floor. His up in the chair, still complaining of some abdominal distention, he states he was able to pass some gas, and he has been passing bowel movements. Abdomen is soft. he remains on antibiotics cefazolin. Follow blood culture was negative for any growth. Patient has been afebrile, blood pressure is been stable, he denies any pulmonary symptoms. Flat plate of the abdomen showed ileus, Reglan was added. Patient remains on IV fluids at 100 mL an hour with 0.9 normal saline, renal profile is worsening and creatinine is up to 1.64. BUN is 63. on 06/30/2022 patient seen in follow-up on medical surgical floor. He is awak e, does not appear to be in any acute distress,denies any difficulty breathing, he remains on 2 L of oxygen the pulse ox of 97%, afebrile, abdomen is slightly tender, but soft, blood pressure stable, patient had CT of the abdomen and pelvis showing small to moderate volume ascites, hepatic cirrhosis with portal hypertension, enlarged spleen, and perisplenic collaterals, and circumferential wall thickening of the small bowel, consistent with nonspecific enteritis, and new diffusely edematous stomach. Surgical services are following. continues on Unasyn, ID service is following. ultrasound of the abdomen was obtained showing ascites. Patient is scheduled for paracentesis this afternoon. The patient is seen on 07/01/2022 in follow-up on the regular medical floor. he is currently resting in bed. Awake and alert in no acute distress. He did undergo a paracentesis yesterday with a 3.6 L of straw-colored fluid removed. Fluid culture is pending. white count 19.8. Hemoglobin 11.1. Sodium 134. Potassium 4.4. BUN 74. Creatinine 1.8. Glucose 145. AST 83. ALT 41. Alk phos 30. Albumin 2.6. He is continued on Unasyn. His abdomen remains quite distended. Flat plate of the abdomen revealed improved distention of small and large bowel. Mild persistent distention is noted. Mild residual ileus. 07 02 2022, the patient is more comfortable. He is having bowel movements activity and in fact his having liquidy stools for now. Abdomen is less distended. He feels less short of breath and he is very comfortable at this point in time. He remains on IV Unasyn. General surgeries on the case. The abdominal film that was yesterday showed improved distention of the small and large bowel and this was essentially consistent with some ileus. Labs from today shows a BUN of 78 and a creatinine of 2.2, the patient's sodium level of 134 and potassium level of 4.5 with a serum bicarb of 23. 07/03/2022, abdomen is still distended. The patient was having liquidy stool yesterday and this has subsided on today. He is passing some gas. There is positive tympany and there is probably an underlying ileus. No significant pain. Currently is back in bed. He is on oxygen on 5 L per minute nasal cannula. Labs are still pending for now. There was a concern of an elevated creatinine was up to 2.2 from yesterday and this is to be repeated. BUN is at 78 from yesterday. He is afebrile. He is hemodynamically stable. The patient remains on IV Unasyn. In terms of laxatives, these are all on hold for now. Ascitic fluid the ascitic fluid cultures are still negative. Objective - Vital Signs Vital signs: Vital Signs Temp 97.5 F L 07/03/22 07:58 Pulse 88 07/03/22 08:03 Resp 16 07/03/22 07:58 BP 127/71 07/03/22 07:58 Pulse Ox 96 07/03/22 07:58 FiO2 50 07/03/22 05:06 Intake & Output 07/02/22 07/03/22 07/03/22 18:59 06:59 18:59 Output Total 500 650 Balance -500 -650 Output: Urine 500 650 Other: Voiding Method Indwelling Catheter - Exam GENERAL EXAM: Awake and alert 67-year-old male, on 5 L of oxygen, comfortable in no apparent distress. HEAD: Normocephalic/atraumatic. EYES: Normal reaction of pupils, equal size. Conjunctiva pink, sclera white. NOSE: Clear with pink turbinates. THROAT: No erythema or exudates. NECK: No masses, no JVD, no thyroid enlargement, no adenopathy. CHEST: No chest wall deformity. Symmetrical expansion. LUNGS: Equal air entry with no crackles, wheeze, rhonchi or dullness. CVS: Regular rate and rhythm, normal S1 and S2, no gallops, no murmurs, no rubs ABDOMEN: Distended, tympanic to percussion, nontender. No hepatosplenomegaly, normal bowel sounds, no guarding or rigidity. EXTREMITIES: No clubbing, no edema, no cyanosis, 2+ pulses and upper and lower extremities. MUSCULOSKELETAL: Muscle strength and tone normal. SPINE: No scoliosis or deformity SKIN: No rashes CENTRAL NERVOUS SYSTEM: Awake, slow to respond, No focal deficits, tone is normal in all 4 extremities. - Labs CBC & Chem 7: 07/03/22 10:28 07/03/22 10:28 Labs: Abnormal Lab Results - Last 24 Hours (Table) 07/02/22 07/02/22 07/02/22 Range/Units 07:12 07:12 11:30 WBC 19.62 H (4.50-10.00) X 10*3/uL RBC 3.37 L (4.40-5.60) X 10*6/uL Hgb 10.8 L (13.0-17.0) g/dL Hct 33.8 L (39.6-50.0) % MCV 100.3 H (80.0-97.0) fL Immature Gran # 0.26 H (0.00-0.04) X 10*3/uL Neutrophils # 12.74 H (1.80-7.70) X 10*3/uL Monocytes # 2.35 H (0.20-1.00) X 10*3/uL Sodium 134 L (135-145) mmol/L Anion Gap 9.70 L (10.00-18.00) mmol/L BUN 78.6 H (9.0-27.0) mg/dL Creatinine 2.2 H (0.6-1.5) mg/dL Est GFR (CKD-EPI)AfAm 34.4 L (60.0-200.0) Est GFR (CKD-EPI)NonAf 29.7 L (60.0-200.0) BUN/Creatinine Ratio 35.73 H (12.00-20.00) Ratio Glucose 141 H (70-110) mg/dL POC Glucose (mg/dL) 180 H (70-110) mg/dL Calcium 7.9 L (8.7-10.3) mg/dL AST 93 H (14-35) U/L ALT 61 H (10-49) U/L Alkaline Phosphatase 149 H (41-126) U/L Total Protein 5.9 L (6.2-8.2) g/dL Albumin 2.7 L (3.8-4.9) g/dL Albumin/Globulin Ratio 0.84 L (1.60-3.17) g/dL 07/02/22 07/02/22 07/03/22 Range/Units 16:35 20:48 06:41 WBC (4.50-10.00) X 10*3/uL RBC (4.40-5.60) X 10*6/uL Hgb (13.0-17.0) g/dL Hct (39.6-50.0) % MCV (80.0-97.0) fL Immature Gran # (0.00-0.04) X 10*3/uL Neutrophils # (1.80-7.70) X 10*3/uL Monocytes # (0.20-1.00) X 10*3/uL Sodium (135-145) mmol/L Anion Gap (10.00-18.00) mmol/L BUN (9.0-27.0) mg/dL Creatinine (0.6-1.5) mg/dL Est GFR (CKD-EPI)AfAm (60.0-200.0) Est GFR (CKD-EPI)NonAf (60.0-200.0) BUN/Creatinine Ratio (12.00-20.00) Ratio Glucose (70-110) mg/dL POC Glucose (mg/dL) 125 H 180 H 131 H (70-110) mg/dL Calcium (8.7-10.3) mg/dL AST (14-35) U/L ALT (10-49) U/L Alkaline Phosphatase (41-126) U/L Total Protein (6.2-8.2) g/dL Albumin (3.8-4.9) g/dL Albumin/Globulin Ratio (1.60-3.17) g/dL Microbiology - Last 24 Hours (Table) 06/29/22 15:12 Gram Stain - Preliminary Ascites Fluid Body Fluid Culture - Preliminary Assessment and Plan Plan: Assessment: Acute mental status changes, currently awake and alert 3 Bacteremia related to strep agalactiae, possibly abdominal source, currently on IV Unasyn and awaiting fluids culture from the ascitic fluid was collected. Cultures are negative for now. Ileus, still active in her abdomen remains distended Ascites post paracentesis and the cultures are negative Liquidy diarrhea probably related to laxatives, currently stable Acute GI blood loss anemia, with passing maroon stools starting on 06/23/2022, GI service has been consulted, currently inactive in stable Acute kidney injury related to sepsis, improved and then worsened again, creatinine is up to 2.2 post paracentesis , and there is improvement in the creatinine today which is down to 1.7 Hyponatremia, hypovolemic Possible urinary tract infection Multiple falls at home History of opiate dependence History of COPD/chronic bronchial asthma, unspecified History of chronic back pain History of anxiety Hypertension Hyperlipidemia Abdominal ascites, status post paracentesis 06/30/2022 with 3.6 L of straw- colored fluid removed, cultures pending Plan: Pulmonary status is stable Repeat [place] of the abdomen and obtain an acute abdominal series including a chest x-ray Awaiting labs from today, and the patient's white cell count is down to 16 and the creatinine is also improvement in the creatinine is down to 1.7 Monitor renal function Continue IV Unasyn Clinically stable and somewhat improved compared to yesterday. We'll continue to follow
--- NOTE | 2022-07-03 11:43 | XR ---
EXAMINATION TYPE: XR abdomen acute w cxr DATE OF EXAM: 07/03/2022 COMPARISON: 07/01/2022 HISTORY: 67 year-old male abdominal distention TECHNIQUE: Supine, upright, and left side down lateral decubitus views of the abdomen are obtained. FINDINGS: Patient rotated towards the right altering the normal cardiomediastinal contours. Heart upp er limits of normal in size. Diffuse interstitial and patchy opacity. No pleural effusion. No evidence for free intraperitoneal air. Diffuse gaseous bowel loops throughout. No differential air-fluid levels are seen. There seems to be some scattered colonic air. Prominent distention of the stomach as well. Small bowel loops appear to measure up to 4.9 cm on the supine view. Cholecystectomy clips. IMPRESSION: 1. Diffuse interstitial opacities in the lungs. Correlate for possible atypical pneumonia or bronchit is. 2. Diffuse gassy bowel loops throughout the abdomen. Small bowel is dilated up to 4.9 cm. Correlate f or ileus or small bowel obstruction.
--- NOTE | 2022-07-03 13:59 | P.PN ---
Subjective Progress Note Date: 07/03/22 Follow-up for acute kidney injury. Urine output of 1100 ML's in the last 24 hours. Still complaining of abdominal distention and lower extremity swelling. Objective - Vital Signs Vital signs: Vital Signs Temp 97.4 F L 07/03/22 13:41 Pulse 75 07/03/22 13:41 Resp 17 07/03/22 13:41 BP 154/76 07/03/22 13:41 Pulse Ox 97 07/03/22 13:41 FiO2 50 07/03/22 05:06 Intake & Output 07/02/22 07/03/22 07/03/22 18:59 06:59 18:59 Output Total 500 650 700 Balance -500 -650 -700 Output: Urine 500 650 700 Other: Voiding Method Indwelling Catheter - Exam No acute distress S1-S2 heard Lungs clear Abdomen distended, ascites Russo catheter edema - Labs CBC & Chem 7: 07/03/22 10:28 07/03/22 10:28 Labs: Abnormal Lab Results - Last 24 Hours (Table) 07/02/22 07/02/22 07/02/22 Range/Units 07:12 16:35 20:48 WBC 19.62 H (4.50-10.00) X 10*3/uL RBC 3.37 L (4.40-5.60) X 10*6/uL Hgb 10.8 L (13.0-17.0) g/dL Hct 33.8 L (39.6-50.0) % MCV 100.3 H (80.0-97.0) fL Immature Gran # 0.26 H (0.00-0.04) X 10*3/uL Neutrophils # 12.74 H (1.80-7.70) X 10*3/uL Monocytes # 2.35 H (0.20-1.00) X 10*3/uL Sodium (137-145) mmol/L BUN (9-20) mg/dL Creatinine (0.66-1.25) mg/dL Glucose (74-99) mg/dL POC Glucose (mg/dL) 125 H 180 H (70-110) mg/dL Calcium (8.4-10.2) mg/dL AST (17-59) U/L Alkaline Phosphatase (38-126) U/L 07/03/22 07/03/2207/03/22 Range/Units 06:41 10:28 10:28 WBC 16.0 H (4.50-10.00) X 10*3/uL RBC 3.25 L (4.40-5.60) X 10*6/uL Hgb 10.3 L (13.0-17.0) g/dL Hct 32.5 L (39.6-50.0) % MCV (80.0-97.0) fL Immature Gran # (0.00-0.04) X 10*3/uL Neutrophils # 12.4 H (1.80-7.70) X 10*3/uL Monocytes # (0.20-1.00) X 10*3/uL Sodium 136 L (137-145) mmol/L BUN 75 H (9-20) mg/dL Creatinine 1.75 H (0.66-1.25) mg/dL Glucose 143 H (74-99) mg/dL POC Glucose (mg/dL) 131 H (70-110) mg/dL Calcium 7.9 L (8.4-10.2) mg/dL AST 68 H (17-59) U/L Alkaline Phosphatase 133 H (38-126) U/L 07/03/22 Range/Units 11:19 WBC (4.50-10.00) X 10*3/uL RBC (4.40-5.60) X 10*6/uL Hgb (13.0-17.0) g/dL Hct (39.6-50.0) % MCV (80.0-97.0) fL Immature Gran # (0.00-0.04) X 10*3/uL Neutrophils # (1.80-7.70) X 10*3/uL Monocytes # (0.20-1.00) X 10*3/uL Sodium (137-145) mmol/L BUN (9-20) mg/dL Creatinine (0.66-1.25) mg/dL Glucose (74-99) mg/dL POC Glucose (mg/dL) 187 H (70-110) mg/dL Calcium (8.4-10.2) mg/dL AST (17-59) U/L Alkaline Phosphatase (38-126) U/L Microbiology - Last 24 Hours (Table) 06/29/22 15:12 Gram Stain - Preliminary Ascites Fluid Body Fluid Culture - Preliminary Assessment and Plan Assessment: #1 acute kidney injury multifactorial -Acute interstitial nephritis with recent antibiotic use -Hemodynamic ATN with low blood pressures and concomitant use of Cozaar. -Hepatorenal syndrome with urine sodium less than 20 -Baseline creatinine 0.7 MG per DL. #2 suspected aspiration pneumonia on cefazolin #3 hypotensive episodes improved after stopping Cozaar #4 ascites status post paracentesis #5. Enteritis Plan: #1 renal function improving. #2 100 g of albumin yesterday, give 1 more dose today. #3 on octreotide. Blood pressures better no midodrine. #4 add Lasix 40 mg IV twice a day. #5 avoid nephrotoxic agents and hypotensive episodes. #6 daily renal labs
[2022-07-03] MEDS: FUROSEMIDE 10 MG/ML 4 ML VIAL IV SCH ×2 (14:54→20:44)
[2022-07-03 16:28] LABS: Glucose,Whole Blood 158 mg/dL (70-110)
[2022-07-03 19:27] LABS: Glucose,Whole Blood 149 mg/dL (70-110)
[2022-07-03] MEDS: ALPRAZolam 0.5 MG TAB PO SCH (20:44)
[2022-07-03] MEDS: MELATONIN 5 MG TABLET PO SCH (20:44)
--- NOTE | 2022-07-03 21:41 | P.PN ---
Subjective Progress Note Date: 07/03/22 CHIEF COMPLAINT: Abdominal distention HISTORY OF PRESENT ILLNESS: The patient is a 67-year-old male with abdominal ascites, duodenitis, enteritis. is at bedside. Per discussion with , he has decreased appetite. ROS: No reports of nausea and vomiting. No fevers or chills. No new chest gina n. PHYSICAL EXAM: VITAL SIGNS: Reviewed CONSTITUTIONAL: Well developed and in no acute distress. EYES: Conjuctivae without sclera icterus. Extraocular movements grossly intact. HEAD, EARS, NOSE, THROAT: Moist buccal mucosa. Head is atraumatic, normocephalic. Hears conversational speech. No nasal drainage. RESPIRATORY: Non-labored respirations and equal bilateral excursions. CARDIOVASCULAR: Palpable 2+ radial pulses. ABDOMEN: Increased abdominal distention with intensity. Nontender. No peritonitis MUSCULOSKELETAL: No gross deformity of the lower extremities noted. No clubbing. No cyanosis. SKIN: Good skin turgor. Well perfused. NEUROLOGIC: Cranial nerves II through XII grossly intact. No focal or lateralizing signs. PSYCH: Appropriate affect. Alert and oriented to person, place and time. CLINICAL LABS: Reviewed. WBC down 24,000-19,000, now 16,000. ASSESSMENT: 1. Duodenitis 2. Gastritis 3. Cirrhosis with abdominal ascites PLAN: 1. He has increase abdominal ascites with tenseness. Recommend repeat paracentesis. 2. Adjust diet to a low sodium diet Objective - Vital Signs Vital signs: Vital Signs Temp 97.4 F L 07/03/22 13:41 Pulse 75 07/03/22 13:41 Resp 17 07/03/22 13:41 BP 154/76 07/03/22 13:41 Pulse Ox 97 07/03/22 13:41 FiO2 50 07/03/22 05:06 Intake & Output 07/02/22 07/03/22 07/03/22 18:59 06:59 18:59 Output Total 500 650 700 Balance -500 -650 -700 Output: Urine 500 650 700 Other: Voiding Method Indwelling Catheter - Labs CBC & Chem 7: 07/03/22 10:28 07/03/22 10:28 Labs: Abnormal Lab Results - Last 24 Hours (Table) 07/02/22 07/02/22 07/03/22 Range/Units 16:35 20:48 06:41 WBC (3.8-10.6) k/uL RBC (4.30-5.90) m/uL Hgb (13.0-17.5) gm/dL Hct (39.0-53.0) % Neutrophils # (1.3-7.7) k/uL Sodium (137-145) mmol/L BUN (9-20) mg/dL Creatinine (0.66-1.25) mg/dL Glucose (74-99) mg/dL POC Glucose (mg/dL) 125 H 180 H 131 H (70-110) mg/dL Calcium (8.4-10.2) mg/dL AST (17-59) U/L Alkaline Phosphatase (38-126) U/L 07/03/22 07/03/22 07/03/22 Range/Units 10:28 10:28 11:19 WBC 16.0 H (3.8-10.6) k/uL RBC 3.25 L (4.30-5.90) m/uL Hgb 10.3 L (13.0-17.5) gm/dL Hct 32.5 L (39.0-53.0) % Neutrophils # 12.4 H (1.3-7.7) k/uL Sodium 136 L (137-145) mmol/L BUN 75 H (9-20) mg/dL Creatinine 1.75 H (0.66-1.25) mg/dL Glucose 143 H (74-99) mg/dL POC Glucose (mg/dL) 187 H (70-110) mg/dL Calcium 7.9 L (8.4-10.2) mg/dL AST 68 H (17-59) U/L Alkaline Phosphatase 133 H (38-126) U/L Microbiology - Last 24 Hours (Table) 06/29/22 15:12 Gram Stain - Preliminary Ascites Fluid Body Fluid Culture - Preliminary
[2022-07-04] MEDS: ALBUMIN HUMAN 25% 50 ML in EMPTY BAG 1 BAG IVPB SCH ×3 (00:49→06:13)
[2022-07-04] MEDS: METOCLOPRAMIDE 5 MG/ML 2 ML VIAL IVP SCH ×4 (00:49→17:15)
[2022-07-04 01:42] LABS: Glucose,Whole Blood 205 mg/dL (70-110)
[2022-07-04] MEDS ORDERED: FLUMAZENIL 0.1 MG/ML 5 ML VIAL IVP ONE (01:58)
[2022-07-04 02:10] LABS: ABG Base Excess -1.5 mmol/L; ABG HCO3 28 mmol/L (21-25); ABG Oxygen Saturation 98.1 % (94-97); ABG PO2 107 mmHg (83-108); ABG TCO2 30 mmol/L (19-24); Allen Test Performed? Yes
[2022-07-04 02:15] LABS: ABG PCO2 81 mmHg (35-45); ABG PH 7.14 (7.35-7.45)
[2022-07-04] MEDS: AMPICILLIN-SULBACTAM 3 GM in SODIUM CHLORIDE 0.9% 100 ML IVPB SCH ×3 (02:38→15:48)
[2022-07-04] MEDS: OCTREOTIDE 100 MCG/ML INJ IVP SCH ×3 (04:21→15:16)
[2022-07-04 07:25] LABS: Glucose,Whole Blood 169 mg/dL (70-110)
--- NOTE | 2022-07-04 07:54 | XR ---
EXAMINATION TYPE: XR chest 1V portable DATE OF EXAM: 07/04/2022 Comparison: 07/03/2022 Clinical History: 67-year-old male shortness of breath Findings: Continued bilateral patchy opacities, slightly worsened at the left lower lung. Heart limits of shruthi l in size. No sizable effusion on the frontal view. Some Lavern B lines are developing at the periphe ry of the right base. Impression: Continued interstitial infiltrates, slightly worsening at the left base and also with developing Kerl ey B lines on the right. Correlate for interstitial pulmonary edema versus atypical pneumonias.
--- NOTE | 2022-07-04 07:55 | P.PN ---
Subjective Progress Note Date: 07/03/22 Principal diagnosis: Bacteremia Patient is a 67 year old male presenting to the hospital in mental status changes and multiple falls did have a low-grade fever and elevated white count now with evidence of bacteremia. Patient is status post paracentesis with removal of 3 L of ascitic fluid completed on 06/30/2022 On today's evaluation that is 07/03/2022, the patient denies any fever or any chills, the patient is breathing comfortably on nasal cannula oxygen, the pa tient denies chest pain, the patient did have mild dry cough, the patient is still complaining of abdominal distention however no vomiting and no diarrhea Objective - Vital Signs Vital signs: Vital Signs Temp 97.4 F L 07/03/22 13:41 Pulse 75 07/03/22 13:41 Resp 17 07/03/22 13:41 BP 154/76 07/03/22 13:41 Pulse Ox 97 07/03/22 13:41 FiO2 50 07/03/22 05:06 Intake & Output 07/02/22 07/03/22 07/03/22 18:59 06:59 18:59 Output Total 500 650 700 Balance -500 -650 -700 Output: Urine 500 650 700 Other: Voiding Method Indwelling Catheter - Exam GENERAL DESCRIPTION: An elderly male lying in bed in no distress RESPIRATORY SYSTEM: Unlabored breathing , decreased breath sounds at bases HEART: S1 S2 regular rate and rhythm , ABDOMEN: Soft , no tenderness EXTREMITIES: No edema feet - Labs CBC & Chem 7: 07/03/22 10:28 07/03/22 10:28 Labs: Abnormal Lab Results - Last 24 Hours (Table) 07/02/22 07/02/22 07/03/22 Range/Units 16:35 20:48 06:41 WBC (3.8-10.6) k/uL RBC (4.30-5.90) m/uL Hgb (13.0-17.5) gm/dL Hct (39.0-53.0) % Neutrophils # (1.3-7.7) k/uL Sodium (137-145) mmol/L BUN (9-20) mg/dL Creatinine (0.66-1.25) mg/dL Glucose (74-99) mg/dL POC Glucose (mg/dL) 125 H 180 H 131 H (70-110) mg/dL Calcium (8.4-10.2) mg/dL AST (17-59) U/L Alkaline Phosphatase (38-126) U/L 07/03/22 07/03/22 07/03/22 Range/Units 10:28 10:28 11:19 WBC 16.0 H (3.8-10.6) k/uL RBC 3.25 L (4.30-5.90) m/uL Hgb 10.3 L (13.0-17.5) gm/dL Hct 32.5 L (39.0-53.0) % Neutrophils # 12.4 H (1.3-7.7) k/uL Sodium 136 L (137-145) mmol/L BUN 75 H (9-20) mg/dL Creatinine 1.75 H (0.66-1.25) mg/dL Glucose 143 H (74-99) mg/dL POC Glucose (mg/dL) 187 H (70-110) mg/dL Calcium 7.9 L (8.4-10.2) mg/dL AST 68 H (17-59) U/L Alkaline Phosphatase 133 H (38-126) U/L Microbiology - Last 24 Hours (Table) 06/29/22 15:12 Gram Stain - Preliminary Ascites Fluid Body Fluid Culture - Preliminary Assessment and Plan (1) Bacteremia Current Visit: Yes Status: Acute Code(s): R78.81 - BACTEREMIA SNOMED Code(s): 5385192 Plan: 1patient with sepsis in this patient who did have a fever elevated white count elevated lactic acid now with evidence of gram-positive bacteremia with a source possible aspiration pneumonia as repeat x-ray did showed increasing density left lower lobe as the patient currently do not have any other obvious focus is abdominal soft on clinical examination no evidence of any joint swelling or cellulitis was noticed. 2blood cultures has been finalized as Streptococcus agalactiae repeat blood c ultures have been negative so far 3-repeat CT with evidence of ascites and possible colitis in the left lower quadrant area, patient is status post paracentesis, white count was only 59 and cultures are so far negative 4- patient did have acute abdominal series with concern for possible small bowel ileus Gen. surgery is following 5- the patient to continue with Unasyn white count is trending down and monitor his clinical course closely Time with Patient: Less than 30
[2022-07-04] MEDS: LEVOTHYROXINE 88 MCG TAB PO SCH (08:07)
[2022-07-04] MEDS: SIMETHICONE 40 MG/0.6 ML DROPS 2,000 MG/30 ML BOTTLE PO SCH ×4 (08:09→22:42)
[2022-07-04] MEDS: ENOXAPARIN 40 MG/0.4 ML SYRINGE SQ SCH ×2 (08:22→15:22)
[2022-07-04] MEDS: FUROSEMIDE 10 MG/ML 4 ML VIAL IV SCH ×2 (08:23→21:31)
[2022-07-04] MEDS: INSULIN ASPART (NovoLOG) 100 UNIT/ML VIAL SQ SCH ×4 (08:23→21:31)
[2022-07-04] MEDS: PANTOPRAZOLE 40 MG/10 ML VIAL IVP SCH ×2 (08:23→21:32)
[2022-07-04] MEDS: NICOTINE 14MG/24HR PATCH TRANSDERM SCH (08:23)
[2022-07-04] MEDS: IPRATROPIUM-ALBUTEROL 3 ML NEB INHALATION SCH ×4 (08:31→19:26)
[2022-07-04 09:31] LABS: Basophils # (A) 0.05 X 10*3/uL (0.00-0.10); Basophils % (A) 0.3 %; Eosinophils # (A) 0.01 X 10*3/uL (0.04-0.35); Eosinophils % (A) 0.1 %; HCT 31.4 % (39.6-50.0); HGB 9.7 g/dL (13.0-17.0); Immature Grans, Automated 1.8 %; Lymphocytes # (A) 1.44 X 10*3/uL (0.90-5.00); Lymphocytes % (A) 7.6 %; MCH 31.5 pg (27.0-32.0); MCHC 30.9 g/dL (32.0-37.0); MCV 101.9 fL (80.0-97.0); Monocytes % (A) 7.9 %; NRBC Per 100 WBC 0 /100 WBCS (0.0-0.0); Neutrophils # (A) 15.59 X 10*3/uL (1.80-7.70); Neutrophils % (A) 82.3 %; Platelet Count 191 X 10*3/uL (140-440); RBC 3.08 X 10*6/uL (4.40-5.60); RDW 14.4 % (11.5-14.5); WBC 18.94 X 10*3/uL (4.50-10.00)
[2022-07-04 09:42] LABS: African American GFR (CKD) 50.6 (60.0-200.0); Albumin 4.3 g/dL (3.8-4.9); Albumin/Globulin Ratio 1.72 (1.60-3.17); Anion Gap 11.4 mmol/L (10.00-18.00); BUN/Creat Ratio 43.56 Ratio (12.00-20.00); Blood Urea Nitrogen 69.7 mg/dL (9.0-27.0); Calcium 8.5 mg/dL (8.7-10.3); Carbon Dioxide 24.6 mmol/L (20.0-27.5); Globulin 2.5 g/dL (1.6-3.3); Non-African American GFR(CKD) 43.6 (60.0-200.0); Potassium 5.2 mmol/L (3.5-5.5); Total Bilirubin 0.8 mg/dL (0.30-1.20); Total Protein 6.8 g/dL (6.2-8.2)
[2022-07-04] MEDS: METOPROLOL SUCCINATE (ER) 100 MG TAB.ER.24H PO SCH (10:11)
[2022-07-04] MEDS: ATORVASTATIN 40 MG TAB PO SCH (10:11)
[2022-07-04 10:41] LABS: ABG Base Excess -0.7 mmol/L; ABG HCO3 29 mmol/L (21-25); ABG Oxygen Saturation 95.1 % (94-97); ABG PO2 76 mmHg (83-108); ABG TCO2 32 mmol/L (19-24); Allen Test Performed? Yes
[2022-07-04 10:47] LABS: ABG PCO2 91 mmHg (35-45); ABG PH 7.11 (7.35-7.45)
[2022-07-04 11:27] LABS: Glucose,Whole Blood 151 mg/dL (70-110)
[2022-07-04 11:42] LABS: Glucose,Whole Blood 142 mg/dL (70-110)
--- NOTE | 2022-07-04 12:01 | US ---
EXAMINATION TYPE: US abdomen limited DATE OF EXAM: 07/04/2022 COMPARISON: NONE CLINICAL HISTORY: 67 year-old male ascites Technique: Multiple sonographic images of the 4 abdominal quadrants for assessment of ascites fluid. FINDINGS: Mild abdominal ascites IMPRESSION: Mild abdominal ascites.
--- NOTE | 2022-07-04 12:16 | P.PN ---
Subjective Patient is seen for follow-up for acute kidney injury and volume overload. Possible component of hepatorenal syndrome. Renal function has been improving. Patient is currently on Sandostatin. He has also received albumin and maintained on IV Lasix as well. Next This morning patient is seen in the room, he is maintained on BiPAP. Family is present at bedside. 24-hour urine output at 3.7 L Objective - Vital Signs Vital signs: Vital Signs Temp 97.3 F L 07/04/22 02:00 Pulse 72 07/04/22 08:53 Resp 20 07/04/22 08:30 BP 120/62 07/04/22 07:36 Pulse Ox 96 07/04/22 07:36 FiO2 50 07/04/22 10:48 Intake & Output 07/03/22 07/04/22 07/04/22 18:59 06:59 18:59 Output Total 1500 2251 Balance -1500 -2251 Output: Urine 1500 2250 Stool 1 Other: Voiding Method Indwelling Catheter - Exam Awake, comfortable, not in any acute distress Maintained on BiPAP Examination of the heart S1 and S2 Examination lungs bilateral breath sounds are heard Abdomen is soft nontender. distended, ascites is noted Examination of the lower extremities shows edema 1+ bilaterally - Labs CBC & Chem 7: 07/04/22 05:45 07/04/22 05:45 Labs: Abnormal Lab Results - Last 24 Hours (Table) 07/03/22 07/03/22 07/04/22 Range/Units 16:27 19:25 01:32 WBC (4.50-10.00) X 10*3/uL RBC (4.40-5.60) X 10*6/uL Hgb (13.0-17.0) g/dL Hct (39.6-50.0) % MCV (80.0-97.0) fL MCHC (32.0-37.0) g/dL Immature Gran # (0.00-0.04) X 10*3/uL Neutrophils # (1.80-7.70) X 10*3/uL Monocytes # (0.20-1.00) X 10*3/uL Eosinophils # (0.04-0.35) X 10*3/uL ABG pH (7.35-7.45) ABG pCO2 (35-45) mmHg ABG pO2 (83-108) mmHg ABG HCO3 (21-25) mmol/L ABG Total CO2 (19-24) mmol/L ABG O2 Saturation (94-97) % BUN (9.0-27.0) mg/dL Creatinine (0.6-1.5) mg/dL Est GFR (CKD-EPI)AfAm (60.0-200.0) Est GFR (CKD-EPI)NonAf (60.0-200.0) BUN/Creatinine Ratio (12.00-20.00) Ratio Glucose (70-110) mg/dL POC Glucose (mg/dL) 158 H 149 H 205 H (70-110) mg/dL Calcium (8.7-10.3) mg/dL AST (14-35) U/L 07/04/22 07/04/22 07/04/22 Range/Units 02:07 05:45 05:45 WBC 18.94 H (4.50-10.00) X 10*3/uL RBC 3.08 L (4.40-5.60) X 10*6/uL Hgb 9.7 L (13.0-17.0) g/dL Hct 31.4 L (39.6-50.0) % MCV 101.9 H (80.0-97.0) fL MCHC 30.9 L (32.0-37.0) g/dL Immature Gran # 0.35 H (0.00-0.04) X 10*3/uL Neutrophils # 15.59 H (1.80-7.70) X 10*3/uL Monocytes # 1.50 H (0.20-1.00) X 10*3/uL Eosinophils # 0.01 L (0.04-0.35) X 10*3/uL ABG pH 7.14 L* (7.35-7.45) ABG pCO2 81 H* (35-45) mmHg ABG pO2 (83-108) mmHg ABG HCO3 28 H (21-25) mmol/L ABG Total CO2 30 H (19-24) mmol/L ABG O2 Saturation 98.1 H (94-97) % BUN 69.7 H (9.0-27.0) mg/dL Creatinine 1.6 H (0.6-1.5) mg/dL Est GFR (CKD-EPI)AfAm 50.6 L (60.0-200.0) Est GFR (CKD-EPI)NonAf 43.6 L (60.0-200.0) BUN/Creatinine Ratio 43.56 H (12.00-20.00) Ratio Glucose 170 H (70-110) mg/dL POC Glucose (mg/dL) (70-110) mg/dL Calcium 8.5 L (8.7-10.3) mg/dL AST 50 H (14-35) U/L 07/04/22 07/04/22 07/04/22 Range/Units 07:12 10:30 11:09 WBC (4.50-10.00) X 10*3/uL RBC (4.40-5.60) X 10*6/uL Hgb (13.0-17.0) g/dL Hct (39.6-50.0) % MCV (80.0-97.0) fL MCHC (32.0-37.0) g/dL Immature Gran # (0.00-0.04) X 10*3/uL Neutrophils # (1.80-7.70) X 10*3/uL Monocytes # (0.20-1.00) X 10*3/uL Eosinophils # (0.04-0.35) X 10*3/uL ABG pH 7.11 L* (7.35-7.45) ABG pCO2 91 H* (35-45) mmHg ABG pO2 76 L (83-108) mmHg ABG HCO3 29 H (21-25) mmol/L ABG Total CO2 32 H (19-24) mmol/L ABG O2 Saturation (94-97) % BUN (9.0-27.0) mg/dL Creatinine (0.6-1.5) mg/dL Est GFR (CKD-EPI)AfAm (60.0-200.0) Est GFR (CKD-EPI)NonAf (60.0-200.0) BUN/Creatinine Ratio (12.00-20.00) Ratio Glucose (70-110) mg/dL POC Glucose (mg/dL) 169 H 151 H (70-110) mg/dL Calcium (8.7-10.3) mg/dL AST (14-35) U/L 08/15/22 Range/Units 11:41 WBC (4.50-10.00) X 10*3/uL RBC (4.40-5.60) X 10*6/uL Hgb (13.0-17.0) g/dL Hct (39.6-50.0) % MCV (80.0-97.0) fL MCHC (32.0-37.0) g/dL Immature Gran # (0.00-0.04) X 10*3/uL Neutrophils # (1.80-7.70) X 10*3/uL Monocytes # (0.20-1.00) X 10*3/uL Eosinophils # (0.04-0.35) X 10*3/uL ABG pH (7.35-7.45) ABG pCO2 (35-45) mmHg ABG pO2 (83-108) mmHg ABG HCO3 (21-25) mmol/L ABG Total CO2 (19-24) mmol/L ABG O2 Saturation (94-97) % BUN (9.0-27.0) mg/dL Creatinine (0.6-1.5) mg/dL Est GFR (CKD-EPI)AfAm (60.0-200.0) Est GFR (CKD-EPI)NonAf (60.0-200.0) BUN/Creatinine Ratio (12.00-20.00) Ratio Glucose (70-110) mg/dL POC Glucose (mg/dL) 142 H (70-110) mg/dL Calcium (8.7-10.3) mg/dL AST (14-35) U/L Assessment and Plan Assessment: 1. Acute kidney injury, ATN versus hepatorenal syndrome. Urine sodium was less than 20. Currently maintained on Sandostatin. Renal function is improving. Good urine output. 2. Possible aspiration pneumonia entertained on cefazolin. 3. Volume overload 4. Sinusitis status post paracentesis 5. Acute hypoxic respiratory failure maintained on BiPAP Plan: Continue with IV Lasix Avoid nephrotoxic agents Continue to hold off on Cozaar Repeat labs in a.m.
--- NOTE | 2022-07-04 12:31 | P.PN ---
Subjective Progress Note Date: 07/04/22 Principal diagnosis: Acute hypoxic and acute hypercapnic respiratory failure, acute metabolic encephalopathy, gram-positive sepsis On 06/24/2022 patient seen in follow-up in the intensive care unit. Patient is sedated, currently on Precedex at 0.5 mics per kilo per hour. He is on Precedex at 5 mg per hour. Lactated Ringer's at 75 ML per hour, remains sedated, very confused. No signs of any respiratory distress, he is on 4 L of oxygen per nasal cannula with pulse ox of 95%, his been afebrile, in sinus mechanism, rate is 79 BPM. His blood pressure is better controlled with Cleviprex infusion. It is currently 141/75. MRI of the brain was completed last night showing no evidence of a recent infarct, mild diffuse age-related cerebral atrophy and chronic small vessel ischemic changes. No abnormal enhancement was noted. Today's labs have been reviewed, white blood cell count is 20.0, hemoglobin is 12.7, INR is 1.4, sodium is 134, potassium is 4.8, chloride is 109, BUN is 65 creatinine 0.76. Last night's blood gas was also reviewed showing pO2 of 72, pCO2 of 32, and pH of 7.48. This was done on FiO2 of 32%. CTA chest a few days ago showed no evidence of pulmonary embolism, showed interstitial infiltrate and atelectasis, no suspicious pulmonary mass. EEG showed no focal slowing, epileptiform discharge or seizure. Echocardiogram showed EF of 60-65%. Blood culture showed strep agalactiae, group B. Follow-up blood cultures have shown no growth thus far. ID service is following, patient remains on cefazolin 2 g every 8 hours. Last night patient developed GI bleeding, and passed of a very large maroon-colored stool. Today's hemoglobin is 12.7 which is down from 14 from yesterday, platelet count is 141, INR is 1.4. GI service has been consulted for evaluation. 07/03/2022, abdomen is still distended. The patient was having liquidy stool yesterday and this has subsided on today. He is passing some gas. There is positive tympany and there is probably an underlying ileus. No significant pain. Currently is back in bed. He is on oxygen on 5 L per minute nasal cannula. Labs are still pending for now. There was a concern of an elevated creatinine was up to 2.2 from yesterday and this is to be repeated. BUN is at 78 from yesterday. He is afebrile. He is hemodynamically stable. The patient remains on IV Unasyn. In terms of laxatives, these are all on hold for now. Ascitic fluid the ascitic fluid cultures are still negative. Reevaluated today on 07/04/22, patient is quite lethargic, I saw him on the regular medical floor, patient is on BiPAP with IPAP of 12 EPAP of 6 and 60% FiO2. ABG showed a pO2 of 76 pCO2 of 91 pH of 7.11, hence I recommended transferring the patient to ICU. Patient continues to have leukocytosis with WBC of 18.9 hemoglobin is 9.7. Renal functioning remains abnormal with a BUN of 70 creatinine 1.6. Blood sugar is 142. Blood cultures were positive for strep agalactiae group B, his fluid cultures from the abdomen remain negative so far. Family is at bedside, patient is quite lethargic, hence I recommended transferring the patient to the ICU. Abdominal ultrasound showed mild abdominal ascites, chest x-ray continues to show interstitial infiltrates especially at the left base, consistent with atypical pulmonary edema, doubt pneumonia although aspiration pneumonia could also be considered. Patient remains on Unasyn. Patient is also on Lasix 40 mg IV push twice a day. Objective - Vital Signs Vital signs: Vital Signs Temp 97.3 F L 07/04/22 02:00 Pulse 72 07/04/22 08:53 Resp 20 07/04/22 08:30 BP 120/62 07/04/22 07:36 Pulse Ox 96 07/04/22 07:36 FiO2 50 07/04/22 10:48 Intake & Output 07/03/22 07/04/22 07/04/22 18:59 06:59 18:59 Output Total 1500 2251 Balance -1500 -2251 Output: Urine 1500 2250 Stool 1 Other: Voiding Method Indwelling Catheter - Exam GENERAL EXAM: 67-year-old white male, lethargic, on BiPAP, arousable but quite sleepy and follows simple instructions. HEAD: Normocephalic/atraumatic. HEENT: PERRLA, EOMI, anicteric, neck masses, no JVD. CHEST: No chest wall deformity. Symmetrical expansion. LUNGS: Equal air entry with no crackles, wheeze, rhonchi or dullness. CVS: Regular rate and rhythm, normal S1 and S2, no gallops, no murmurs, no rubs ABDOMEN: Slightly distended, soft nontender, positive ascites. EXTREMITIES: No clubbing, no edema, no cyanosis, 2+ pulses and upper and lower extremities. MUSCULOSKELETAL: Muscle strength and tone normal. SKIN: No rashes CENTRAL NERVOUS SYSTEM: Arousable but quite lethargic, follows simple instructions briefly. - Labs CBC & Chem 7: 07/04/22 05:45 07/04/22 05:45 Labs: Abnormal Lab Results - Last 24 Hours (Table) 07/03/22 07/03/22 07/04/22 Range/Units 16:27 19:25 01:32 WBC (4.50-10.00) X 10*3/uL RBC (4.40-5.60) X 10*6/uL Hgb (13.0-17.0) g/dL Hct (39.6-50.0) % MCV (80.0-97.0) fL MCHC (32.0-37.0) g/dL Immature Gran # (0.00-0.04) X 10*3/uL Neutrophils # (1.80-7.70) X 10*3/uL Monocytes # (0.20-1.00) X 10*3/uL Eosinophils # (0.04-0.35) X 10*3/uL ABG pH (7.35-7.45) ABG pCO2 (35-45) mmHg ABG pO2 (83-108) mmHg ABG HCO3 (21-25) mmol/L ABG Total CO2 (19-24) mmol/L ABG O2 Saturation (94-97) % BUN (9.0-27.0) mg/dL Creatinine (0.6-1.5) mg/dL Est GFR (CKD-EPI)AfAm (60.0-200.0) Est GFR (CKD-EPI)NonAf (60.0-200.0) BUN/Creatinine Ratio (12.00-20.00) Ratio Glucose (70-110) mg/dL POC Glucose (mg/dL) 158 H 149 H 205 H (70-110) mg/dL Calcium (8.7-10.3) mg/dL AST (14-35) U/L 07/04/22 07/04/22 07/04/22 Range/Units 02:07 05:45 05:45 WBC 18.94 H (4.50-10.00) X 10*3/uL RBC 3.08 L (4.40-5.60) X 10*6/uL Hgb 9.7 L (13.0-17.0) g/dL Hct 31.4 L (39.6-50.0) % MCV 101.9 H (80.0-97.0) fL MCHC 30.9 L (32.0-37.0) g/dL Immature Gran # 0.35 H (0.00-0.04) X 10*3/uL Neutrophils # 15.59 H (1.80-7.70) X 10*3/uL Monocytes # 1.50 H (0.20-1.00) X 10*3/uL Eosinophils # 0.01 L (0.04-0.35) X 10*3/uL ABG pH 7.14 L* (7.35-7.45) ABG pCO2 81 H* (35-45) mmHg ABG pO2 (83-108) mmHg ABG HCO3 28 H (21-25) mmol/L ABG Total CO2 30 H (19-24) mmol/L ABG O2 Saturation 98.1 H (94-97) % BUN 69.7 H (9.0-27.0) mg/dL Creatinine 1.6 H (0.6-1.5) mg/dL Est GFR (CKD-EPI)AfAm 50.6 L (60.0-200.0) Est GFR (CKD-EPI)NonAf 43.6 L (60.0-200.0) BUN/Creatinine Ratio 43.56 H (12.00-20.00) Ratio Glucose 170 H (70-110) mg/dL POC Glucose (mg/dL) (70-110) mg/dL Calcium 8.5 L (8.7-10.3) mg/dL AST 50 H (14-35) U/L 07/04/22 07/04/22 07/04/22 Range/Units 07:12 10:30 11:09 WBC (4.50-10.00) X 10*3/uL RBC (4.40-5.60) X 10*6/uL Hgb (13.0-17.0) g/dL Hct (39.6-50.0) % MCV (80.0-97.0) fL MCHC (32.0-37.0) g/dL Immature Gran # (0.00-0.04) X 10*3/uL Neutrophils # (1.80-7.70) X 10*3/uL Monocytes # (0.20-1.00) X 10*3/uL Eosinophils # (0.04-0.35) X 10*3/uL ABG pH 7.11 L* (7.35-7.45) ABG pCO2 91 H* (35-45) mmHg ABG pO2 76 L (83-108) mmHg ABG HCO3 29 H (21-25) mmol/L ABG Total CO2 32 H (19-24) mmol/L ABG O2 Saturation (94-97) % BUN (9.0-27.0) mg/dL Creatinine (0.6-1.5) mg/dL Est GFR (CKD-EPI)AfAm (60.0-200.0) Est GFR (CKD-EPI)NonAf (60.0-200.0) BUN/Creatinine Ratio (12.00-20.00) Ratio Glucose (70-110) mg/dL POC Glucose (mg/dL) 169 H 151 H (70-110) mg/dL Calcium (8.7-10.3) mg/dL AST (14-35) U/L 07/04/22 Range/Units 11:41 WBC (4.50-10.00) X 10*3/uL RBC (4.40-5.60) X 10*6/uL Hgb (13.0-17.0) g/dL Hct (39.6-50.0) % MCV (80.0-97.0) fL MCHC (32.0-37.0) g/dL Immature Gran # (0.00-0.04) X 10*3/uL Neutrophils # (1.80-7.70) X 10*3/uL Monocytes # (0.20-1.00) X 10*3/uL Eosinophils # (0.04-0.35) X 10*3/uL ABG pH (7.35-7.45) ABG pCO2 (35-45) mmHg ABG pO2 (83-108) mmHg ABG HCO3 (21-25) mmol/L ABG Total CO2 (19-24) mmol/L ABG O2 Saturation (94-97) % BUN (9.0-27.0) mg/dL Creatinine (0.6-1.5) mg/dL Est GFR (CKD-EPI)AfAm (60.0-200.0) Est GFR (CKD-EPI)NonAf (60.0-200.0) BUN/Creatinine Ratio (12.00-20.00) Ratio Glucose (70-110) mg/dL POC Glucose (mg/dL) 142 H (70-110) mg/dL Calcium (8.7-10.3) mg/dL AST (14-35) U/L Assessment and Plan Assessment: Impression: Acute gram-positive bacteremia, exact source remains unclear. Acute hypoxic and hypercapnic respiratory failure requiring BiPAP. Ascites, status post paracentesis, cultures are negative so far. Acute ileus. Acute metabolic encephalopathy secondary to CO2 narcosis. Acute GI bleeding, presently inactive. Acute kidney injury secondary to sepsis. Multiple falls at home. History of opiate dependence History of underlying COPD/chronic bronchial asthma, unspecified. Chronic back pain. Generalized anxiety disorder. Status post paracentesis on 06/30/2022, 3.6 L removed. Recommendation: Continue BiPAP and increase IPAP to 16, cut down her FiO2 and titrate accordingly Transfer patient to the ICU Continue antibiotics. Patient is on Unasyn. Continue diuretics. Patient has ascites, and possibly atypical interstitial edema. Could also be aspiration pneumonia. Hold all narcotics and sedatives for now. Until the patient is a bit more awake. Check ammonia level. Close monitoring in the ICU. GI and DVT prophylaxis. Discussed and updated family on his condition at bedside. Prognosis is extremely guarded. Critical care time is over 30 minutes. Time with Patient: Greater than 30
--- NOTE | 2022-07-04 13:30 | P.PN ---
Subjective Progress Note Date: 07/04/22 CHIEF COMPLAINT: Abdominal distention HISTORY OF PRESENT ILLNESS: Patient having worsening respiratory distress. Requiring to be placed on BiPAP and being transferred to the ICU today. He does have abdominal distention. He denies any abdominal pain. Denies any nausea or vomiting. One small brown bowel movement yesterday. He is having flatus. ABG with pH of 7.11. WBC is up from 16-18.94 hemoglobin 9.7 creatinine is 1.6 abdominal fluid culture negative so far. PHYSICAL EXAM: VITAL SIGNS: Reviewed GENERAL: Well-developed in no acute distress. HEENT: No sclera icterus. Extraocular movements grossly intact. Moist buccal mucosa. Head is atraumatic, normocephalic. Hears conversational speech. No nasal drainage. NECK: Supple without lymphadenopathy. CHEST: Non-labored respirations and equal bilateral excursions. CARDIOVASCULAR: Palpable 2+ radial pulses. ABDOMEN: Soft. Distended. Nontender MUSCULOSKELETAL: No clubbing or cyanosis. NEUROLOGIC: No focal or lateralizing signs. Cranial nerves II through XII grossly intact. PSYCH: Appropriate affect. Alert and oriented to person, place and time. SKIN: Well perfused. Good skin turgor. ASSESSMENT: 1. Duodenitis and jejunitis 2. Enteritis 3. Gastritis 4. Cirrhosis with abdominal ascites 5. Leukocytosis 6. Ileus 7. GI bleed resolved 8. Acute respiratory failure requiring BiPAP PLAN: -Awaiting IR evaluation for possible paracentesis -Continue ICU management -Continue supportive care Physician [employer] note has been reviewed by physician. Signing provider agrees with the documented findings, assessment, and plan of care. Objective - Vital Signs Vital signs: Vital Signs Temp 97.3 F L 07/04/22 02:00 Pulse 72 07/04/22 08:53 Resp 20 07/04/22 08:30 BP 120/62 07/04/22 07:36 Pulse Ox 96 07/04/22 07:36 FiO2 50 07/04/22 10:48 Intake & Output 07/03/22 07/04/22 07/04/22 18:59 06:59 18:59 Output Total 1500 2251 Balance -1500 -2251 Output: Urine 1500 2250 Stool 1 Other: Voiding Method Indwelling Catheter Indwelling Catheter - Labs CBC & Chem 7: 07/04/22 05:45 07/04/22 05:45 Labs: Abnormal Lab Results - Last 24 Hours (Table) 07/03/22 07/03/22 07/04/22 Range/Units 16:27 19:25 01:32 WBC (4.50-10.00) X 10*3/uL RBC (4.40-5.60) X 10*6/uL Hgb (13.0-17.0) g/dL Hct (39.6-50.0) % MCV (80.0-97.0) fL MCHC (32.0-37.0) g/dL Immature Gran # (0.00-0.04) X 10*3/uL Neutrophils # (1.80-7.70) X 10*3/uL Monocytes # (0.20-1.00) X 10*3/uL Eosinophils # (0.04-0.35) X 10*3/uL ABG pH (7.35-7.45) ABG pCO2 (35-45) mmHg ABG pO2 (83-108) mmHg ABG HCO3 (21-25) mmol/L ABG Total CO2 (19-24) mmol/L ABG O2 Saturation (94-97) % BUN (9.0-27.0) mg/dL Creatinine (0.6-1.5) mg/dL Est GFR (CKD-EPI)AfAm (60.0-200.0) Est GFR (CKD-EPI)NonAf (60.0-200.0) BUN/Creatinine Ratio (12.00-20.00) Ratio Glucose (70-110) mg/dL POC Glucose (mg/dL) 158 H 149 H 205 H (70-110) mg/dL Calcium (8.7-10.3) mg/dL AST (14-35) U/L Ammonia (<30) umol/L 07/04/22 07/04/22 07/04/22 Range/Units 02:07 05:45 05:45 WBC 18.94 H (4.50-10.00) X 10*3/uL RBC 3.08 L (4.40-5.60) X 10*6/uL Hgb 9.7 L (13.0-17.0) g/dL Hct 31.4 L (39.6-50.0) % MCV 101.9 H (80.0-97.0) fL MCHC 30.9 L (32.0-37.0) g/dL Immature Gran # 0.35 H (0.00-0.04) X 10*3/uL Neutrophils # 15.59 H (1.80-7.70) X 10*3/uL Monocytes # 1.50 H (0.20-1.00) X 10*3/uL Eosinophils # 0.01 L (0.04-0.35) X 10*3/uL ABG pH 7.14 L* (7.35-7.45) ABG pCO2 81 H* (35-45) mmHg ABG pO2 (83-108) mmHg ABG HCO3 28 H (21-25) mmol/L ABG Total CO2 30 H (19-24) mmol/L ABG O2 Saturation 98.1 H (94-97) % BUN 69.7 H (9.0-27.0) mg/dL Creatinine 1.6 H (0.6-1.5) mg/dL Est GFR (CKD-EPI)AfAm 50.6 L (60.0-200.0) Est GFR (CKD-EPI)NonAf 43.6 L (60.0-200.0) BUN/Creatinine Ratio 43.56 H (12.00-20.00) Ratio Glucose 170 H (70-110) mg/dL POC Glucose (mg/dL) (70-110) mg/dL Calcium 8.5 L (8.7-10.3) mg/dL AST 50 H (14-35) U/L Ammonia (<30) umol/L 07/04/22 07/04/22 07/04/22 Range/Units 07:12 10:30 11:09 WBC (4.50-10.00) X 10*3/uL RBC (4.40-5.60) X 10*6/uL Hgb (13.0-17.0) g/dL Hct (39.6-50.0) % MCV (80.0-97.0) fL MCHC (32.0-37.0) g/dL Immature Gran # (0.00-0.04) X 10*3/uL Neutrophils # (1.80-7.70) X 10*3/uL Monocytes # (0.20-1.00) X 10*3/uL Eosinophils # (0.04-0.35) X 10*3/uL ABG pH 7.11 L* (7.35-7.45) ABG pCO2 91 H* (35-45) mmHg ABG pO2 76 L (83-108) mmHg ABG HCO3 29 H (21-25) mmol/L ABG Total CO2 32 H (19-24) mmol/L ABG O2 Saturation (94-97) % BUN (9.0-27.0) mg/dL Creatinine (0.6-1.5) mg/dL Est GFR (CKD-EPI)AfAm (60.0-200.0) Est GFR (CKD-EPI)NonAf (60.0-200.0) BUN/Creatinine Ratio (12.00-20.00) Ratio Glucose (70-110) mg/dL POC Glucose (mg/dL) 169 H 151 H (70-110) mg/dL Calcium (8.7-10.3) mg/dL AST (14-35) U/L Ammonia (<30) umol/L 07/04/22 07/04/22 Range/Units 11:41 12:45 WBC (4.50-10.00) X 10*3/uL RBC (4.40-5.60) X 10*6/uL Hgb (13.0-17.0) g/dL Hct (39.6-50.0) % MCV (80.0-97.0) fL MCHC (32.0-37.0) g/dL Immature Gran # (0.00-0.04) X 10*3/uL Neutrophils # (1.80-7.70) X 10*3/uL Monocytes # (0.20-1.00) X 10*3/uL Eosinophils # (0.04-0.35) X 10*3/uL ABG pH (7.35-7.45) ABG pCO2 (35-45) mmHg ABG pO2 (83-108) mmHg ABG HCO3 (21-25) mmol/L ABG Total CO2 (19-24) mmol/L ABG O2 Saturation (94-97) % BUN (9.0-27.0) mg/dL Creatinine (0.6-1.5) mg/dL Est GFR (CKD-EPI)AfAm (60.0-200.0) Est GFR (CKD-EPI)NonAf (60.0-200.0) BUN/Creatinine Ratio (12.00-20.00) Ratio Glucose (70-110) mg/dL POC Glucose (mg/dL) 142 H (70-110) mg/dL Calcium (8.7-10.3) mg/dL AST (14-35) U/L Ammonia 38 H (<30) umol/L
--- NOTE | 2022-07-04 15:22 | P.PN ---
Subjective Progress Note Date: 07/04/22 Ag Souza, is a 67-year-old male who presented to [facility] emergency room after having a multiple falls at home, has significant mental status changes with somnolence and poor responsiveness, history per his , over the last 24 hours patient has been not feeling well, he fell twice at home, on the second time she was not able to wake him up and get him up from the floor through the bed, she called EMS and he was brought into emergency room. He was evaluated in the emergency room vital examination on presentation revealed a temperature of 97.3 pulse 82 respiration 16 blood pressure 121/67 pulse ox 97% on room air Laboratory data revealed a white blood count of 23.2 hemoglobin 14.4 platelet count 98,000 sodium 129 potassium 4.9 chloride 96 CO2 25 BUN 51 creatinine 2.24 troponin level was 0.02 COVID-19 testing was negative Testing in the emergency room revealed chest x-ray done in the emergency room did not reveal significant abnormality. Patient has a known history of degenerative disc disease with chronic pain maintained on narcotics for pain management he was given Narcan in the emergency room which led to improvement in his mental status. Patient was admitted to medical floor for further evaluation and treatment. On 06/22/2022 patient was seen and examined on the telemetry floor he is still somnolent, agitated, pulling on his IV line, he was started through the night on IV Ativan, vital examination reveals a temperature of 98.4 pulse 132 respiration 24 blood pressure 172/91 pulse ox 96% on 2 L nasal cannula, white blood count is 21.9 hemoglobin 14.8 platelet count 118 d-dimer was elevated at 2.12 at this time will start patient on IV heparin high-intensity for possible pulmonary embolism, his kidney function is still elevated, will defer computed tomography scan this time, he is not cooperative to proceed with VQ scan, will continue with IV fluid, nephrology consultation and infectious disease consultation were requested. On 06/23/2022 patient was seen and examined in the ICU he is more alert and oriented today vital exam reveals a temperature of 98.2 pulse 86 respiration 23 blood pressure 138/79 pulse ox 93% on 2 L nasal cannula white blood count is down to 15.4 hemoglobin 13.2 platelet count 125 kidney function improved with BUN at 66 and creatinine at 0.89 kidney ultrasound was done and revealed no evidence of renal stones or obstruction, CT angiogram of the chest was done and there was no evidence of pulmonary embolism, blood culture were positive for Streptococcus group b , patient is currently maintained on IV Unasyn, IV vanc omycin and IV acyclovir, cardiology, pulmonary, nephrology, neurology and infectious disease are following On 06/24/2022 patient was seen and examined in the ICU he is more alert and oriented today kidney ultrasound was done and revealed no evidence of renal stones or obstruction, CT angiogram of the chest was done and there was no evidence of pulmonary embolism, blood culture were positive for Streptococcus group b , patient is currently maintained on IV Unasyn, IV vancomycin and IV acyclovir, cardiology, pulmonary, nephrology, neurology and infectious disease are following. Patient had a maroon colored stools through the night, GI consultation is not available this week, surgical consultation was requested for evaluation for possible GI bleed On 06/25/2022 patient was seen and examined in the ICU, he is more alert and responsive today, there is no fever or chills no headache or dizziness no chest pain no shortness of breath no cough no nausea or vomiting no abdominal pain no diarrhea and no urinary symptoms. IV heparin has been discontinued, at this time will start subcu Lovenox for DVT prophylaxis, he remains on IV antibiotics cefazolin 2 g IV every 8 hours. On 06/26/2022 patient was seen and examined in the ICU he is alert and oriented 3 in no apparent distress he is complaining of abdominal discomfort otherwise he denies any complaint at this time there is no fever or chills no headache or dizziness no chest pain no shortness of breath no cough no nausea or vomiting no diarrhea no blood in the stools no burning with urination no frequency or urgency and no hematuria. On 06/27/2022 patient was seen and examined on in the ICU he is alert and oriented 3, he is feeling better, he had multiple bowel movements and his abdominal pain has improved, he is still complaining of difficulty sleeping at night otherwise he denies any complaints there is no fever or chills no headache or dizziness no chest pain no shortness of breath no cough no nausea or vomiting no abdominal pain no diarrhea no blood in the stools no burning with urination no frequency or urgency and no hematuria. On 06/28/2022 patient was seen and examined on the medical floor he is alert and oriented 3 in no distress there is no fever or chills no headache or dizziness no chest pain no shortness of breath no cough no nausea or vomiting no abdominal pain no diarrhea, no blood in the stools no burning with urination no frequency or urgency and no hematuria patient has generalized weakness he is improving gradually will continue to follow closely physical therapy is following On 06/29/2022 patient was seen and examined on the medical floor he is alert and oriented 3 in no apparent distress there is no fever or chills no headache or dizziness no chest pain no shortness of breath no cough no nausea or vomiting he is complaining of abdominal discomfort with abdominal distention no diarrhea or constipation no blood in the stools no burning with urination no frequency or urgency and no hematuria. At this time patient is scheduled for computed tomography scan of the abdomen and pelvis will continue to monitor closely. On 06/30/2022 patient was seen and examined on the telemetry floor he is alert and oriented 3 in no apparent distress he is complaining now of severe neck gina n and back pain and requesting [place], patient underwent paracentesis today, 3.5 L of fluid were removed, otherwise patient denies any other symptoms there is no fever or chills no headache or dizziness no chest pain no shortness of breath no cough no nausea or vomiting no abdominal pain no diarrhea and no urinary symptoms On 07/01/2022 patient was seen and examined on the medical floor he is alert and oriented 3 in no apparent distress he is complaining of abdominal discomfort and distention otherwise he denies any complaints at this time there is no fever or chills no headache or dizziness no chest pain no shortness of breath no cough no nausea or vomiting no diarrhea no blood in the stools no burning with urination no frequency or urgency and no hematuria On 07/02/2022 patient was seen and examined on the medical floor he is alert and oriented 3 in no apparent distress he is complaining of abdominal discomfort and distention, he is complaining of bilateral hip pain, he received 1 dose of lactulose and had multiple episodes of diarrhea afterwards lactulose was discontinued, otherwise he denies any complaints at this time there is no fever or chills no headache or dizziness no chest pain no shortness of breath no cough no nausea or vomiting no blood in the stools no burning with urination no frequency or urgency and no hematuria. On 07/03/2022 patient was seen and examined the medical he is alert and oriented he is complaining of abdominal distention was discomfort and shortness of breath otherwise he denies any complaints there is no fever or chills no headache or dizziness no chest pain no cough no nausea or vomiting no urinary symptoms On 07/04/2022 patient was seen and examined in the ICU he is more lethargic today he was started on BiPAP and transferred to ICU today ammonia level is elevated at 38 there is no fever or chills no headache or dizziness no chest pain patient has significant distention in the abdomen, no nausea or vomiting no diarrhea, Russo catheter is in. Objective - Vital Signs Vital signs: Vital Signs Temp 97.3 F L 07/04/22 02:00 Pulse 72 07/04/22 08:53 Resp 20 07/04/22 08:30 BP 120/62 07/04/22 07:36 Pulse Ox 96 07/04/22 07:36 FiO2 50 07/04/22 10:48 Intake & Output 07/03/22 07/04/22 07/04/22 18:59 06:59 18:59 Output Total 1500 2251 70 Balance -1500 -2251 -70 Output: Urine 1500 2250 70 Stool 1 Other: Voiding Method Indwelling Catheter Indwelling Catheter - Exam In general patient is alert and responsive in no apparent distress HEENT head normocephalic and atraumatic Neck is supple no JVD no goiter no lymphadenopathy no carotid bruit Chest examination is clear to auscultation no crackles no wheezing Cardiac exam reveals regular heart sounds S1 and S2 no gallops no murmurs Abdomen is distended with generalized tenderness, no organomegaly Extremity exam reveals no edema no cyanosis or clubbing Neurological examination reveals no gross focal deficits - Labs CBC & Chem 7: 07/04/22 05:45 07/04/22 05:45 Labs: Abnormal Lab Results - Last 24 Hours (Table) 07/03/22 07/03/22 07/04/22 Range/Units 16:27 19:25 01:32 WBC (4.50-10.00) X 10*3/uL RBC (4.40-5.60) X 10*6/uL Hgb (13.0-17.0) g/dL Hct (39.6-50.0) % MCV (80.0-97.0) fL MCHC (32.0-37.0) g/dL Immature Gran # (0.00-0.04) X 10*3/uL Neutrophils # (1.80-7.70) X 10*3/uL Monocytes # (0.20-1.00) X 10*3/uL Eosinophils # (0.04-0.35) X 10*3/uL ABG pH (7.35-7.45) ABG pCO2 (35-45) mmHg ABG pO2 (83-108) mmHg ABG HCO3 (21-25) mmol/L ABG Total CO2 (19-24) mmol/L ABG O2 Saturation (94-97) % BUN (9.0-27.0) mg/dL Creatinine (0.6-1.5) mg/dL Est GFR (CKD-EPI)AfAm (60.0-200.0) Est GFR (CKD-EPI)NonAf (60.0-200.0) BUN/Creatinine Ratio (12.00-20.00) Ratio Glucose (70-110) mg/dL POC Glucose (mg/dL) 158 H 149 H 205 H (70-110) mg/dL Calcium (8.7-10.3) mg/dL AST (14-35) U/L Ammonia (<30) umol/L 07/04/22 07/04/22 07/04/22 Range/Units 02:07 05:45 05:45 WBC 18.94 H (4.50-10.00) X 10*3/uL RBC 3.08 L (4.40-5.60) X 10*6/uL Hgb 9.7 L (13.0-17.0) g/dL Hct 31.4 L (39.6-50.0) % MCV 101.9 H (80.0-97.0) fL MCHC 30.9 L (32.0-37.0) g/dL Immature Gran # 0.35 H (0.00-0.04) X 10*3/uL Neutrophils # 15.59 H (1.80-7.70) X 10*3/uL Monocytes # 1.50 H (0.20-1.00) X 10*3/uL Eosinophils # 0.01 L (0.04-0.35) X 10*3/uL ABG pH 7.14 L* (7.35-7.45) ABG pCO2 81 H* (35-45) mmHg ABG pO2 (83-108) mmHg ABG HCO3 28 H (21-25) mmol/L ABG Total CO2 30 H (19-24) mmol/L ABG O2 Saturation 98.1 H (94-97) % BUN 69.7 H (9.0-27.0) mg/dL Creatinine 1.6 H (0.6-1.5) mg/dL Est GFR (CKD-EPI)AfAm 50.6 L (60.0-200.0) Est GFR (CKD-EPI)NonAf 43.6 L (60.0-200.0) BUN/Creatinine Ratio 43.56 H (12.00-20.00) Ratio Glucose 170 H (70-110) mg/dL POC Glucose (mg/dL) (70-110) mg/dL Calcium 8.5 L (8.7-10.3) mg/dL AST 50 H (14-35) U/L Ammonia (<30) umol/L 07/04/22 07/04/22 07/04/22 Range/Units 07:12 10:30 11:09 WBC (4.50-10.00) X 10*3/uL RBC (4.40-5.60) X 10*6/uL Hgb (13.0-17.0) g/dL Hct (39.6-50.0) % MCV (80.0-97.0) fL MCHC (32.0-37.0) g/dL Immature Gran # (0.00-0.04) X 10*3/uL Neutrophils # (1.80-7.70) X 10*3/uL Monocytes # (0.20-1.00) X 10*3/uL Eosinophils # (0.04-0.35) X 10*3/uL ABG pH 7.11 L* (7.35-7.45) ABG pCO2 91 H* (35-45) mmHg ABG pO2 76 L (83-108) mmHg ABG HCO3 29 H (21-25) mmol/L ABG Total CO2 32 H (19-24) mmol/L ABG O2 Saturation (94-97) % BUN (9.0-27.0) mg/dL Creatinine (0.6-1.5) mg/dL Est GFR (CKD-EPI)AfAm (60.0-200.0) Est GFR (CKD-EPI)NonAf (60.0-200.0) BUN/Creatinine Ratio (12.00-20.00) Ratio Glucose (70-110) mg/dL POC Glucose (mg/dL) 169 H 151 H (70-110) mg/dL Calcium (8.7-10.3) mg/dL AST (14-35) U/L Ammonia (<30) umol/L 07/04/22 07/04/22 Range/Units 11:41 12:45 WBC (4.50-10.00) X 10*3/uL RBC (4.40-5.60) X 10*6/uL Hgb (13.0-17.0) g/dL Hct (39.6-50.0) % MCV (80.0-97.0) fL MCHC (32.0-37.0) g/dL Immature Gran # (0.00-0.04) X 10*3/uL Neutrophils # (1.80-7.70) X 10*3/uL Monocytes # (0.20-1.00) X 10*3/uL Eosinophils # (0.04-0.35) X 10*3/uL ABG pH (7.35-7.45) ABG pCO2 (35-45) mmHg ABG pO2 (83-108) mmHg ABG HCO3 (21-25) mmol/L ABG Total CO2 (19-24) mmol/L ABG O2 Saturation (94-97) % BUN (9.0-27.0) mg/dL Creatinine (0.6-1.5) mg/dL Est GFR (CKD-EPI)AfAm (60.0-200.0) Est GFR (CKD-EPI)NonAf (60.0-200.0) BUN/Creatinine Ratio (12.00-20.00) Ratio Glucose (70-110) mg/dL POC Glucose (mg/dL) 142 H (70-110) mg/dL Calcium (8.7-10.3) mg/dL AST (14-35) U/L Ammonia 38 H (<30) umol/L Assessment and Plan Plan: Mental status changes, cause is unclear could be related to overdose of narcotic Leukocytosis, no clear source of infection, chest x-ray and urine analysis don't show any clear evidence of infection, patient received IV steroids in the EMS and in the emergency room, will check lactic acid level and monitor CBC Acute exacerbation of COPD with wheezing on presentation, he was started on IV Solu-Medrol in the emergency room, he is on inhaled bronchodilators Evidence of acute kidney injury was elevated BUN and creatinine patient was started on IV fluid, nephrology consultation was requested Abdominal ascites, status post paracentesis 06/30/2022 with 3.5 L of fluid removed, Evidence of liver cirrhosis Mild elevation in troponin level will monitor Underlying history of hypertension Underlying history of hypothyroidism Underlying history of depression with anxiety disorder Underlying history of vitamin D deficiency Underlying history of degenerative disc disease with chronic back pain maintained on narcotics for pain management Underlying history of gastroesophageal reflux disease At this time patient is admitted to telemetry floor Will check d-dimer check lactic acid recheck CBC and CMP Continue with IV fluid and recheck renal function Consult nephrology
[2022-07-04] MEDS: SODIUM CHLORIDE 0.9% 1,000 ML IV SCH (15:48)
[2022-07-04 16:14] LABS: Glucose,Whole Blood 136 mg/dL (70-110)
[2022-07-04] MEDS ORDERED: SODIUM CHLORIDE 0.9% 1,000 ML IV ONE (19:29)
[2022-07-04 19:44] LABS: ABG Base Excess -4.2 mmol/L; ABG HCO3 26 mmol/L (21-25); ABG Oxygen Saturation 95.7 % (94-97); ABG PO2 81 mmHg (83-108); ABG TCO2 29 mmol/L (19-24); Allen Test Performed? Yes
[2022-07-04 19:50] LABS: ABG PCO2 97 mmHg (35-45); ABG PH 7.04 (7.35-7.45)
[2022-07-04] MEDS: NOREPINEPHRINE 4 MG in SODIUM CHLORIDE 0.9% 250 ML IV SCH ×2 (19:51→23:59)
[2022-07-04 20:52] LABS: ABG HCO3 26 mmol/L (21-25); ABG Oxygen Saturation 95.6 % (94-97); ABG PO2 73 mmHg (83-108); ABG TCO2 28 mmol/L (19-24); Allen Test Performed? Yes
--- NOTE | 2022-07-04 20:54 | XR ---
EXAMINATION TYPE: XR chest 1V portable DATE OF EXAM: 07/04/2022 COMPARISON: 07/04/2022 HISTORY: Respiratory failure TECHNIQUE: FINDINGS: The endotracheal tube is 1.5 cm from the srini. There is some diffuse pulmonary interstiti al edema. Heart is top normal in size. There is nasogastric tube in the stomach. There is some tubing over the left upper chest. There is mild blunting right costophrenic angle. IMPRESSION: There is pulmonary edema and small right pleural effusion that could be congestive heart failure and edema is slightly worse than exam earlier today.
[2022-07-04 21:00] LABS: ABG PCO2 79 mmHg (35-45); ABG PH 7.12 (7.35-7.45)
[2022-07-04] MEDS ORDERED: FUROSEMIDE 10 MG/ML 10 ML VIAL IV STA (21:08)
[2022-07-04 21:27] LABS: Glucose,Whole Blood 97 mg/dL (70-110)
[2022-07-04] MEDS: CHLORHEXIDINE GLUCONATE 15 ML CUP MUCOUS MEM SCH (21:31)
[2022-07-04] MEDS: ALPRAZolam 0.5 MG TAB PO SCH (21:31)
[2022-07-04] MEDS: MELATONIN 5 MG TABLET PO SCH (21:32)
[2022-07-04] MEDS: FUROSEMIDE 100 MG in SODIUM CHLORIDE 0.9% 90 ML IV SCH (22:17)
--- NOTE | 2022-07-04 22:42 | XR ---
EXAMINATION TYPE: XR chest 1V portable DATE OF EXAM: 07/04/2022 COMPARISON: Today's HISTORY: Check tube placement TECHNIQUE: FINDINGS: The endotracheal tube is 4.5 cm from the srini. There is airspace edema in the mid and lo wer lung amado. Heart size is within normal limits. There are chest leads. There is nasogastric tube in the stomach. IMPRESSION: There is pulmonary edema that could be RDS or heart failure and appears slightly worse th an exam one hour ago.
[2022-07-05] MEDS: METOCLOPRAMIDE 5 MG/ML 2 ML VIAL IVP SCH ×4 (00:25→18:22)
[2022-07-05] MEDS: AMPICILLIN-SULBACTAM 3 GM in SODIUM CHLORIDE 0.9% 100 ML IVPB SCH ×2 (00:25→09:09)
[2022-07-05] MEDS: OCTREOTIDE 100 MCG/ML INJ IVP SCH ×3 (00:44→16:43)
[2022-07-05 01:09] LABS: Glucose,Whole Blood 93 mg/dL (70-110)
[2022-07-05] MEDS: NOREPINEPHRINE 4 MG in SODIUM CHLORIDE 0.9% 250 ML IV SCH ×3 (03:55→08:25)
[2022-07-05 04:47] LABS: Albumin 3.9 g/dL (3.5-5.0); Calcium 8.5 mg/dL (8.4-10.2); Magnesium 2.4 mg/dL (1.6-2.3); Total Protein 6.5 g/dL (6.3-8.2)
[2022-07-05] MEDS: FUROSEMIDE 100 MG in SODIUM CHLORIDE 0.9% 90 ML IV SCH ×3 (05:16→21:34)
[2022-07-05 05:17] LABS: Basophils # (A) 0.1 k/uL (0-0.2); Basophils % (A) 0 %; Eosinophils % (A) 0 %; HCT 35.5 % (39.0-53.0); Hypochromasia Marked; Lymphocytes # (A) 2.2 k/uL (1.0-4.8); Lymphocytes % (A) 9 %; MCH 32.8 pg (25.0-35.0); MCHC 30.9 g/dL (31.0-37.0); Macrocytosis Moderate; Mean Platelet Volume 9.8; Monocytes # (A) 1.7 k/uL (0-1.0); Monocytes % (A) 7 %; Neutrophils # (A) 21.1 k/uL (1.3-7.7); Neutrophils % (A) 83 %; Platelet Count 227 k/uL (150-450); Poikilocytosis Slight; RBC 3.35 m/uL (4.30-5.90); WBC 25.5 k/uL (3.8-10.6)
[2022-07-05 05:28] LABS: Glucose,Whole Blood 65 mg/dL (70-110)
[2022-07-05] MEDS: DEXTROSE 50% SYRINGE 50 ML IVP PRN (05:33)
[2022-07-05 05:46] LABS: ABG Base Excess -6.9 mmol/L; ABG HCO3 22 mmol/L (21-25); ABG Oxygen Saturation 98.2 % (94-97); ABG PCO2 61 mmHg (35-45); ABG PO2 101 mmHg (83-108); ABG TCO2 24 mmol/L (19-24); Allen Test Performed? Yes
[2022-07-05 05:47] LABS: ABG PH 7.16 (7.35-7.45)
[2022-07-05 06:03] LABS: Glucose,Whole Blood 129 mg/dL (70-110)
[2022-07-05] MEDS: LEVOTHYROXINE 88 MCG TAB PO SCH (06:29)
[2022-07-05] MEDS: INSULIN ASPART (NovoLOG) 100 UNIT/ML VIAL SQ SCH ×4 (06:35→21:34)
[2022-07-05 06:36] LABS: Glucose,Whole Blood 127 mg/dL (70-110)
[2022-07-05] MEDS ORDERED: CALCIUM GLUCONATE IN NACL 1 GM in SALINE 1 100ML.BAG IVPB ONE (06:48)
[2022-07-05] MEDS ORDERED: SODIUM BICARB 8.4% 50 ML SYR (1 MEQ/ML) IV STA (06:50)
[2022-07-05] MEDS ORDERED: SODIUM CHLORIDE 0.9% 1,000 ML IV ONE (06:58)
--- NOTE | 2022-07-05 07:20 | XR ---
EXAMINATION TYPE: XR chest 1V portable DATE OF EXAM: 07/05/2022 COMPARISON: 07/04/2022 HISTORY: SOB, Follow Up FINDINGS: Indwelling tubes and catheters are unchanged. Scattered reticulonodular infiltrates persist with slight improvement suggested at the lung bases. Stable appearance of the cardio-mediastinal structures at this time. IMPRESSION: 1. Scattered reticulonodular infiltrates persist with slight improvement suggested at the lung bases .
--- NOTE | 2022-07-05 07:42 | P.PN ---
Subjective Progress Note Date: 07/04/22 Principal diagnosis: Bacteremia Patient is a 67 year old male presenting to the hospital in mental status changes and multiple falls did have a low-grade fever and elevated white count now with evidence of bacteremia. Patient is status post paracentesis with removal of 3 L of ascitic fluid completed on 06/30/2022 On today's evaluation that is 07/04/2022, the patient did have an episode of hypothermia after midnight temperature normal since then, the patient did have worsening of his respiratory status for the patient has been transferred to the ICU started on a BiPAP, patient is slightly lethargic not evident good historian has been complaining of some abdominal distention no vomiting or diarrhea has been reported Objective - Vital Signs Vital signs: Vital Signs Temp 97.3 F L 07/04/22 02:00 Pulse 72 07/04/22 08:53 Resp 20 07/04/22 08:30 BP 120/62 07/04/22 07:36 Pulse Ox 96 07/04/22 07:36 FiO2 50 07/04/22 10:48 Intake & Output 07/03/22 07/04/22 07/04/22 18:59 06:59 18:59 Output Total 1500 2251 Balance -1500 -2251 Output: Urine 1500 2250 Stool 1 Other: Voiding Method Indwelling Catheter - Exam GENERAL DESCRIPTION: An elderly male lying in bed in no distress RESPIRATORY SYSTEM: Unlabored breathing , decreased breath sounds at bases HEART: S1 S2 regular rate and rhythm , ABDOMEN: Soft , no tenderness EXTREMITIES: No edema feet - Labs CBC & Chem 7: 07/05/22 04:12 07/05/22 04:12 Labs: Abnormal Lab Results - Last 24 Hours (Table) 07/03/22 07/03/22 07/04/22 Range/Units 16:27 19:25 01:32 WBC (4.50-10.00) X 10*3/uL RBC (4.40-5.60) X 10*6/uL Hgb (13.0-17.0) g/dL Hct (39.6-50.0) % MCV (80.0-97.0) fL MCHC (32.0-37.0) g/dL Immature Gran # (0.00-0.04) X 10*3/uL Neutrophils # (1.80-7.70) X 10*3/uL Monocytes # (0.20-1.00) X 10*3/uL Eosinophils # (0.04-0.35) X 10*3/uL ABG pH (7.35-7.45) ABG pCO2 (35-45) mmHg ABG pO2 (83-108) mmHg ABG HCO3 (21-25) mmol/L ABG Total CO2 (19-24) mmol/L ABG O2 Saturation (94-97) % BUN (9.0-27.0) mg/dL Creatinine (0.6-1.5) mg/dL Est GFR (CKD-EPI)AfAm (60.0-200.0) Est GFR (CKD-EPI)NonAf (60.0-200.0) BUN/Creatinine Ratio (12.00-20.00) Ratio Glucose (70-110) mg/dL POC Glucose (mg/dL) 158 H 149 H 205 H (70-110) mg/dL Calcium (8.7-10.3) mg/dL AST (14-35) U/L 07/04/22 07/04/22 07/04/22 Range/Units 02:07 05:45 05:45 WBC 18.94 H (4.50-10.00) X 10*3/uL RBC 3.08 L (4.40-5.60) X 10*6/uL Hgb 9.7 L (13.0-17.0) g/dL Hct 31.4 L (39.6-50.0) % MCV 101.9 H (80.0-97.0) fL MCHC 30.9 L (32.0-37.0) g/dL Immature Gran # 0.35 H (0.00-0.04) X 10*3/uL Neutrophils # 15.59 H (1.80-7.70) X 10*3/uL Monocytes # 1.50 H (0.20-1.00) X 10*3/uL Eosinophils # 0.01 L (0.04-0.35) X 10*3/uL ABG pH 7.14 L* (7.35-7.45) ABG pCO2 81 H* (35-45) mmHg ABG pO2 (83-108) mmHg ABG HCO3 28 H (21-25) mmol/L ABG Total CO2 30 H (19-24) mmol/L ABG O2 Saturation 98.1 H (94-97) % BUN 69.7 H (9.0-27.0) mg/dL Creatinine 1.6 H (0.6-1.5) mg/dL Est GFR (CKD-EPI)AfAm 50.6 L (60.0-200.0) Est GFR (CKD-EPI)NonAf 43.6 L (60.0-200.0) BUN/Creatinine Ratio 43.56 H (12.00-20.00) Ratio Glucose 170 H (70-110) mg/dL POC Glucose (mg/dL) (70-110) mg/dL Calcium 8.5 L (8.7-10.3) mg/dL AST 50 H (14-35) U/L 07/04/22 07/04/22 07/04/22 Range/Units 07:12 10:30 11:09 WBC (4.50-10.00) X 10*3/uL RBC (4.40-5.60) X 10*6/uL Hgb (13.0-17.0) g/dL Hct (39.6-50.0) % MCV (80.0-97.0) fL MCHC (32.0-37.0) g/dL Immature Gran # (0.00-0.04) X 10*3/uL Neutrophils # (1.80-7.70) X 10*3/uL Monocytes # (0.20-1.00) X 10*3/uL Eosinophils # (0.04-0.35) X 10*3/uL ABG pH 7.11 L* (7.35-7.45) ABG pCO2 91 H* (35-45) mmHg ABG pO2 76 L (83-108) mmHg ABG HCO3 29 H (21-25) mmol/L ABG Total CO2 32 H (19-24) mmol/L ABG O2 Saturation (94-97) % BUN (9.0-27.0) mg/dL Creatinine (0.6-1.5) mg/dL Est GFR (CKD-EPI)AfAm (60.0-200.0) Est GFR (CKD-EPI)NonAf (60.0-200.0) BUN/Creatinine Ratio (12.00-20.00) Ratio Glucose (70-110) mg/dL POC Glucose (mg/dL) 169 H 151 H (70-110) mg/dL Calcium (8.7-10.3) mg/dL AST (14-35) U/L 07/04/22 Range/Units 11:41 WBC (4.50-10.00) X 10*3/uL RBC (4.40-5.60) X 10*6/uL Hgb (13.0-17.0) g/dL Hct (39.6-50.0) % MCV (80.0-97.0) fL MCHC (32.0-37.0) g/dL Immature Gran # (0.00-0.04) X 10*3/uL Neutrophils # (1.80-7.70) X 10*3/uL Monocytes # (0.20-1.00) X 10*3/uL Eosinophils # (0.04-0.35) X 10*3/uL ABG pH (7.35-7.45) ABG pCO2 (35-45) mmHg ABG pO2 (83-108) mmHg ABG HCO3 (21-25) mmol/L ABG Total CO2 (19-24) mmol/L ABG O2 Saturation (94-97) % BUN (9.0-27.0) mg/dL Creatinine (0.6-1.5) mg/dL Est GFR (CKD-EPI)AfAm (60.0-200.0) Est GFR (CKD-EPI)NonAf (60.0-200.0) BUN/Creatinine Ratio (12.00-20.00) Ratio Glucose (70-110) mg/dL POC Glucose (mg/dL) 142 H (70-110) mg/dL Calcium (8.7-10.3) mg/dL AST (14-35) U/L Assessment and Plan (1) Bacteremia Current Visit: Yes Status: Acute Code(s): R78.81 - BACTEREMIA SNOMED Co de(s): 3069370 Plan: 1patient with sepsis in this patient who did have a fever elevated white count elevated lactic acid now with evidence of gram-positive bacteremia with a source possible aspiration pneumonia as repeat x-ray did showed increasing density left lower lobe as the patient currently do not have any other obvious focus is abdominal soft on clinical examination no evidence of any joint swelling or cellulitis was noticed. 2blood cultures has been finalized as Streptococcus agalactiae repeat blood cultures have been negative so far 3-repeat CT with evidence of ascites and possible colitis in the left lower quadrant area, patient is status post paracentesis, white count was only 59 and cultures are so far negative 4- patient did have worsening of his respiratory status with a question of fluid overload less likely pneumonia we will repeat his cultures continue with Unasyn and monitor clinical course closely Time with Patient: Less than 30
[2022-07-05] MEDS: IPRATROPIUM-ALBUTEROL 3 ML NEB INHALATION SCH ×4 (08:06→19:15)
[2022-07-05] MEDS: FUROSEMIDE 10 MG/ML 4 ML VIAL IV SCH (08:21)
[2022-07-05] MEDS: METOPROLOL SUCCINATE (ER) 100 MG TAB.ER.24H PO SCH (08:21)
[2022-07-05] MEDS: NICOTINE 14MG/24HR PATCH TRANSDERM SCH (08:25)
[2022-07-05] MEDS: CHLORHEXIDINE GLUCONATE 15 ML CUP MUCOUS MEM SCH ×2 (08:25→21:35)
[2022-07-05] MEDS: PANTOPRAZOLE 40 MG/10 ML VIAL IVP SCH ×2 (08:25→21:33)
[2022-07-05] MEDS: ATORVASTATIN 40 MG TAB PO SCH (08:25)
[2022-07-05] MEDS ORDERED: INSULIN REGULAR 100 UNIT/ML VIAL (IV) IV ONE (08:48)
[2022-07-05] MEDS ORDERED: SODIUM ZIRCONIUM CYCLOSILICATE 10 GM PACKET PO ONE (08:48)
[2022-07-05] MEDS ORDERED: DEXTROSE 50% SYRINGE 50 ML IVP STA (08:48)
--- NOTE | 2022-07-05 09:34 | P.PN ---
Subjective Patient is seen in follow-up for acute kidney injury. Renal function worse. Creatinine 2.47 today. Patient went into respiratory distress yesterday and was placed on BiPAP. He was subsequently intubated last night. Patient's blood pressure was also low in the systolic 80s and he received 2 L fluid bolus. He is currently on Levophed. Urine output has been about 5-10 mL an hour. Potassium was also high this morning. He is currently on Lasix drip. Vital signs are stable. On vasopressor support. General: Resting in bed. HEENT: Intubated. LUNGS: Breath sounds decreased. HEART: Rate and Rhythm are regular. ABDOMEN: Soft, distention noted. EXTREMITITES: 2+ edema. Objective - Vital Signs Vital signs: Vital Signs Temp 98 F 07/05/22 08:00 Pulse 82 07/05/22 09:00 Resp 22 07/05/22 09:00 BP 128/48 07/05/22 06:45 Pulse Ox 96 07/05/22 09:00 FiO2 50 07/05/22 09:00 Intake & Output 07/04/22 07/05/22 07/05/22 18:59 06:59 18:59 Intake Total 200 2472.424 502.346 Output Total 135 80 20 Balance 65 2392.424 482.346 Intake: IV 200 550 150 Sodium Chloride 0.9% 1, 200 550 150 000 ml @ 50 mls/hr IV . Q20H [facility] Rx#:[id number] Intake, IV Titration 1922.424 352.346 Amount Furosemide 100 mg In 69.833 Sodium Chloride 0.9% 90 ml @ 10 MG/HR 10 mls/hr IV .Q10H [facility] Rx#: [id number] Norepinephrine 4 mg In 712.853 352.346 Sodium Chloride 0.9% 250 ml @ 0.05 MCG/KG/MIN 19. 869 mls/hr IV .[id number] [facility] Rx#:[id number] Sodium Chloride 0.9% 1, 1000 000 ml @ 999 mls/hr IV . Q1H1M ONE Rx#:[id number] propofoL 1,000 mg In 139.738 Empty Bag 1 bag @ 5 MCG/ KG/MIN 3.129 mls/hr IV . Q24H [facility] Rx#:[id number] Output: Urine 135 80 20 Other: Voiding Method Indwelling Catheter Indwelling Catheter ABP, PAP, CO, CI - Last Documented Arterial Blood Pressure 112/45 - Labs CBC & Chem 7: 07/05/22 04:12 07/05/22 04:12 Labs: Abnormal Lab Results - Last 24 Hours (Table) 07/04/22 07/04/22 07/04/22 Range/Units 05:45 05:45 05:45 WBC 18.94 H (4.50-10.00) X 10*3/uL RBC 3.08 L (4.40-5.60) X 10*6/uL Hgb 9.7 L (13.0-17.0) g/dL Hct 31.4 L (39.6-50.0) % MCV 101.9 H (80.0-97.0) fL MCHC 30.9 L (32.0-37.0) g/dL Immature Gran # 0.35 H (0.00-0.04) X 10*3/uL Neutrophils # 15.59 H (1.80-7.70) X 10*3/uL Monocytes # 1.50 H (0.20-1.00) X 10*3/uL Eosinophils # 0.01 L (0.04-0.35) X 10*3/uL ABG pH (7.35-7.45) ABG pCO2 (35-45) mmHg ABG pO2 (83-108) mmHg ABG HCO3 (21-25) mmol/L ABG Total CO2 (19-24) mmol/L ABG O2 Saturation (94-97) % Potassium (3.5-5.1) mmol/L BUN 69.7 H (9.0-27.0) mg/dL Creatinine 1.6 H (0.6-1.5) mg/dL Est GFR (CKD-EPI)AfAm 50.6 L (60.0-200.0) Est GFR (CKD-EPI)NonAf 43.6 L (60.0-200.0) BUN/Creatinine Ratio 43.56 H (12.00-20.00) Ratio Glucose 170 H (70-110) mg/dL POC Glucose (mg/dL) (70-110) mg/dL Calcium 8.5 L (8.7-10.3) mg/dL Magnesium (1.6-2.3) mg/dL Total Bilirubin (0.2-1.3) mg/dL AST 50 H (14-35) U/L ALT (4-49) U/L Ammonia (<30) umol/L Procalcitonin 0.13 H (0.02-0.09) ng/mL 07/04/22 07/04/22 07/04/22 Range/Units 10:30 11:09 11:41 WBC (4.50-10.00) X 10*3/uL RBC (4.40-5.60) X 10*6/uL Hgb (13.0-17.0) g/dL Hct (39.6-50.0) % MCV (80.0-97.0) fL MCHC (32.0-37.0) g/dL Immature Gran # (0.00-0.04) X 10*3/uL Neutrophils # (1.80-7.70) X 10*3/uL Monocytes # (0.20-1.00) X 10*3/uL Eosinophils # (0.04-0.35) X 10*3/uL ABG pH 7.11 L* (7.35-7.45) ABG pCO2 91 H* (35-45) mmHg ABG pO2 76 L (83-108) mmHg ABG HCO3 29 H (21-25) mmol/L ABG Total CO2 32 H (19-24) mmol/L ABG O2 Saturation (94-97) % Potassium (3.5-5.1) mmol/L BUN (9.0-27.0) mg/dL Creatinine (0.6-1.5) mg/dL Est GFR (CKD-EPI)AfAm (60.0-200.0) Est GFR (CKD-EPI)NonAf (60.0-200.0) BUN/Creatinine Ratio (12.00-20.00) Ratio Glucose (70-110) mg/dL POC Glucose (mg/dL) 151 H 142 H (70-110) mg/dL Calcium (8.7-10.3) mg/dL Magnesium (1.6-2.3) mg/dL Total Bilirubin (0.2-1.3) mg/dL AST (14-35) U/L ALT (4-49) U/L Ammonia (<30) umol/L Procalcitonin (0.02-0.09) ng/mL 07/04/22 07/04/22 07/04/22 Range/Units 12:45 16:13 19:37 WBC (4.50-10.00) X 10*3/uL RBC (4.40-5.60) X 10*6/uL Hgb (13.0-17.0) g/dL Hct (39.6-50.0) % MCV (80.0-97.0) fL MCHC (32.0-37.0) g/dL Immature Gran # (0.00-0.04) X 10*3/uL Neutrophils # (1.80-7.70) X 10*3/uL Monocytes # (0.20-1.00) X 10*3/uL Eosinophils # (0.04-0.35) X 10*3/uL ABG pH 7.04 L* (7.35-7.45) ABG pCO2 97 H* (35-45) mmHg ABG pO2 81 L (83-108) mmHg ABG HCO3 26 H (21-25) mmol/L ABG Total CO2 29 H (19-24) mmol/L ABG O2 Saturation (94-97) % Potassium (3.5-5.1) mmol/L BUN (9.0-27.0) mg/dL Creatinine (0.6-1.5) mg/dL Est GFR (CKD-EPI)AfAm (60.0-200.0) Est GFR (CKD-EPI)NonAf (60.0-200.0) BUN/Creatinine Ratio (12.00-20.00) Ratio Glucose (70-110) mg/dL POC Glucose (mg/dL) 136 H (70-110) mg/dL Calcium (8.7-10.3) mg/dL Magnesium (1.6-2.3) mg/dL Total Bilirubin (0.2-1.3) mg/dL AST (14-35) U/L ALT (4-49) U/L Ammonia 38 H (<30) umol/L Procalcitonin (0.02-0.09) ng/mL 07/04/22 07/05/22 07/05/22 Range/Units 20:45 04:12 04:12 WBC 25.5 H (4.50-10.00) X 10*3/uL RBC 3.35 L (4.40-5.60) X 10*6/uL Hgb 11.0 L (13.0-17.0) g/dL Hct 35.5 L (39.6-50.0) % MCV 106.0 H D (80.0-97.0) fL MCHC 30.9 L (32.0-37.0) g/dL Immature Gran # (0.00-0.04) X 10*3/uL Neutrophils # 21.1 H (1.80-7.70) X 10*3/uL Monocytes # 1.7 H (0.20-1.00) X 10*3/uL Eosinophils # (0.04-0.35) X 10*3/uL ABG pH 7.12 L* (7.35-7.45) ABG pCO2 79 H* (35-45) mmHg ABG pO2 73 L (83-108) mmHg ABG HCO3 26 H (21-25) mmol/L ABG Total CO2 28 H (19-24) mmol/L ABG O2 Saturation (94-97) % Potassium 6.0 H (3.5-5.1) mmol/L BUN 78 H (9.0-27.0) mg/dL Creatinine 2.47 H (0.6-1.5) mg/dL Est GFR (CKD-EPI)AfAm (60.0-200.0) Est GFR (CKD-EPI)NonAf (60.0-200.0) BUN/Creatinine Ratio (12.00-20.00) Ratio Glucose 70 L (70-110) mg/dL POC Glucose (mg/dL) (70-110) mg/dL Calcium (8.7-10.3) mg/dL Magnesium 2.4 H (1.6-2.3) mg/dL Total Bilirubin 2.0 H (0.2-1.3) mg/dL AST 541 H (14-35) U/L ALT 147 H (4-49) U/L Ammonia (<30) umol/L Procalcitonin (0.02-0.09) ng/mL 07/05/22 07/05/22 07/05/22 Range/Units 05:26 05:42 06:01 WBC (4.50-10.00) X 10*3/uL RBC (4.40-5.60) X 10*6/uL Hgb (13.0-17.0) g/dL Hct (39.6-50.0) % MCV (80.0-97.0) fL MCHC (32.0-37.0) g/dL Immature Gran # (0.00-0.04) X 10*3/uL Neutrophils # (1.80-7.70) X 10*3/uL Monocytes # (0.20-1.00) X 10*3/uL Eosinophils # (0.04-0.35) X 10*3/uL ABG pH 7.16 L* (7.35-7.45) ABG pCO2 61 H (35-45) mmHg ABG pO2 (83-108) mmHg ABG HCO3 (21-25) mmol/L ABG Total CO2 (19-24) mmol/L ABG O2 Saturation 98.2 H (94-97) % Potassium (3.5-5.1) mmol/L BUN (9.0-27.0) mg/dL Creatinine (0.6-1.5) mg/dL Est GFR (CKD-EPI)AfAm (60.0-200.0) Est GFR (CKD-EPI)NonAf (60.0-200.0) BUN/Creatinine Ratio (12.00-20.00) Ratio Glucose (70-110) mg/dL POC Glucose (mg/dL) 65 L 129 H (70-110) mg/dL Calcium (8.7-10.3) mg/dL Magnesium (1.6-2.3) mg/dL Total Bilirubin (0.2-1.3) mg/dL AST (14-35) U/L ALT (4-49) U/L Ammonia (<30) umol/L Procalcitonin (0.02-0.09) ng/mL 07/05/22 Range/Units 06:34 WBC (4.50-10.00) X 10*3/uL RBC (4.40-5.60) X 10*6/uL Hgb (13.0-17.0) g/dL Hct (39.6-50.0) % MCV (80.0-97.0) fL MCHC (32.0-37.0) g/dL Immature Gran # (0.00-0.04) X 10*3/uL Neutrophils # (1.80-7.70) X 10*3/uL Monocytes # (0.20-1.00) X 10*3/uL Eosinophils # (0.04-0.35) X 10*3/uL ABG pH (7.35-7.45) ABG pCO2 (35-45) mmHg ABG pO2 (83-108) mmHg ABG HCO3 (21-25) mmol/L ABG Total CO2 (19-24) mmol/L ABG O2 Saturation (94-97) % Potassium (3.5-5.1) mmol/L BUN (9.0-27.0) mg/dL Creatinine (0.6-1.5) mg/dL Est GFR (CKD-EPI)AfAm (60.0-200.0) Est GFR (CKD-EPI)NonAf (60.0-200.0) BUN/Creatinine Ratio (12.00-20.00) Ratio Glucose (70-110) mg/dL POC Glucose (mg/dL) 127 H (70-110) mg/dL Calcium (8.7-10.3) mg/dL Magnesium (1.6-2.3) mg/dL Total Bilirubin (0.2-1.3) mg/dL AST (14-35) U/L ALT (4-49) U/L Ammonia (<30) umol/L Procalcitonin (0.02-0.09) ng/mL Microbiology - Last 24 Hours (Table) 06/29/22 15:12 Gram Stain - Final Ascites Fluid Body Fluid Culture - Final Assessment and Plan Plan: Assessment: 1. Acute kidney injury secondary to septic ATN. Renal function worse as patient was very hypotensive yesterday. Creatinine 2.47 today. Oliguric. 2. Hyperkalemia secondary to acute kidney injury. 3. Shock maintained on Levophed. 4. Group B strep bacteremia and ?pneumonia on antibiotics. ID following. 5. Volume overload. 6. Liver cirrhosis. 7. Ascites status post paracentesis on 07/01/2022 to 3.6 L drained. Plan: Maintain Lasix drip. 10 units IV regular insulin with an amp of D50 now. 10 g Lokelma once now. Patient received IV calcium and IV bicarbonate this morning. 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 Wean FiO2 and vasopressors. With worsening renal function, volume overload and hyperkalemia, will likely need to initiate renal replacement therapy. Discussed with nurse. Will continue to try to get hold of family.
[2022-07-05] MEDS: SIMETHICONE 40 MG/0.6 ML DROPS 2,000 MG/30 ML BOTTLE PO SCH ×4 (09:54→22:10)
[2022-07-05] MEDS: NOREPINEPHRINE 32 MG in SODIUM CHLORIDE 0.9% 218 ML IV SCH (10:39)
--- NOTE | 2022-07-05 10:48 | P.PN ---
Subjective Progress Note Date: 07/05/22 Principal diagnosis: Acute hypoxic and acute hypercapnic respiratory failure, acute metabolic encephalopathy, gram-positive sepsis On 06/24/2022 patient seen in follow-up in the intensive care unit. Patient is sedated, currently on Precedex at 0.5 mics per kilo per hour. He is on Precedex at 5 mg per hour. Lactated Ringer's at 75 ML per hour, remains sedated, very confused. No signs of any respiratory distress, he is on 4 L of oxygen per nasal cannula with pulse ox of 95%, his been afebrile, in sinus mechanism, rate is 79 BPM. His blood pressure is better controlled with Cleviprex infusion. It is currently 141/75. MRI of the brain was completed last night showing no evidence of a recent infarct, mild diffuse age-related cerebral atrophy and chronic small vessel ischemic changes. No abnormal enhancement was noted. Today's labs have been reviewed, white blood cell count is 20.0, hemoglobin is 12.7, INR is 1.4, sodium is 134, potassium is 4.8, chloride is 109, BUN is 65 creatinine 0.76. Last night's blood gas was also reviewed showing pO2 of 72, pCO2 of 32, and pH of 7.48. This was done on FiO2 of 32%. CTA chest a few days ago showed no evidence of pulmonary embolism, showed interstitial infiltrate and atelectasis, no suspicious pulmonary mass. EEG showed no focal slowing, epileptiform discharge or seizure. Echocardiogram showed EF of 60-65%. Blood culture showed strep agalactiae, group B. Follow-up blood cultures have shown no growth thus far. ID service is following, patient remains on cefazolin 2 g every 8 hours. Last night patient developed GI bleeding, and passed of a very large maroon-colored stool. Today's hemoglobin is 12.7 which is down from 14 from yesterday, platelet count is 141, INR is 1.4. GI service has been consulted for evaluation. 07/03/2022, abdomen is still distended. The patient was having liquidy stool yesterday and this has subsided on today. He is passing some gas. There is positive tympany and there is probably an underlying ileus. No significant pain. Currently is back in bed. He is on oxygen on 5 L per minute nasal cannula. Labs are still pending for now. There was a concern of an elevated creatinine was up to 2.2 from yesterday and this is to be repeated. BUN is at 78 from yesterday. He is afebrile. He is hemodynamically stable. The patient remains on IV Unasyn. In terms of laxatives, these are all on hold for now. Ascitic fluid the ascitic fluid cultures are still negative. Reevaluated today on 07/04/22, patient is quite lethargic, I saw him on the regular medical floor, patient is on BiPAP with IPAP of 12 EPAP of 6 and 60% FiO2. ABG showed a pO2 of 76 pCO2 of 91 pH of 7.11, hence I recommended transferring the patient to ICU. Patient continues to have leukocytosis with WBC of 18.9 hemoglobin is 9.7. Renal functioning remains abnormal with a BUN of 70 creatinine 1.6. Blood sugar is 142. Blood cultures were positive for strep agalactiae group B, his fluid cultures from the abdomen remain negative so far. Family is at bedside, patient is quite lethargic, hence I recommended transferring the patient to the ICU. Abdominal ultrasound showed mild abdominal ascites, chest x-ray continues to show interstitial infiltrates especially at the left base, consistent with atypical pulmonary edema, doubt pneumonia although aspiration pneumonia could also be considered. Patient remains on Unasyn. Patient is also on Lasix 40 mg IV push twice a day. Reevaluated today on 07/05/2022, patient had a deterioration in his clinical status yesterday after he was transferred to the ICU, and early evening, his condition continued to deteriorate, patient did not seem to improve with BiPAP, and his ABG seems to be not improving. Continue to remain more lethargic hence, around 10 PM I recommended intubation and mechanical ventilation. Today the patient is mechanically ventilated. He is on assist control rate of 22 total volume 500 FiO2 50% and PEEP of 5. His ABG earlier on assist control rate of 16 showed a pO2 of 101 pCO2 of 61 pH of 7.16. Patient developed significant oligoria, and I had to place the patient on Lasix now he is on 15 mg per hour, he was on 10 mg overnight. He is also requiring norepinephrine at 0.36 mcg/kg/m. Propofol at 40 mcg/kg/m. Remains on antibiotics in the form of Unasyn. IV fluid is at 50 mL per hour and cutting down to KVO since the chest x-ray is showing evidence of pulmonary edema. Patient remains oliguric and he was seen by nephrology today, the patient may be heading to possible hemodialysis. His urine output at present is 5-10 mL per hour in spite of Lasix drip. His liver enzymes are getting worse. His leukocytosis is getting worse. And I went ahead today and placed a right femoral triple-lumen catheter for norepinephrine infusion. WBC count today is 25.5, hemoglobin is 11, BUN is 78 creatinine 2.47. Liver enzymes are elevated with elevated total bilirubin of 2.0 AST of 541 AST of 147, ammonia level yesterday was 38. Chest x-ray today is showing evidence of pulmonary edema, underlying pneumonia is not entirely excluded. Objective - Vital Signs Vital signs: Vital Signs Temp 98 F 07/05/22 08:00 Pulse 82 07/05/22 09:00 Resp 22 07/05/22 09:00 BP 128/48 07/05/22 06:45 Pulse Ox 96 07/05/22 09:00 FiO2 50 07/05/22 09:00 Intake & Output 07/04/22 07/05/22 07/05/22 18:59 06:59 18:59 Intake Total 200 2472.424 702.754 Output Total 135 80 20 Balance 65 2392.424 682.754 Intake: IV 200 550 150 Sodium Chloride 0.9% 1, 200 550 150 000 ml @ 50 mls/hr IV . Q20H [facility] Rx#:[id number] Intake, IV Titration 1922.424 552.754 Amount Furosemide 100 mg In 69.833 Sodium Chloride 0.9% 90 ml @ 10 MG/HR 10 mls/hr IV .Q10H [facility] Rx#: [id number] Norepinephrine 4 mg In 712.853 458.050 Sodium Chloride 0.9% 250 ml @ 0.05 MCG/KG/MIN 19. 869 mls/hr IV .[id number] [facility] Rx#:[id number] Sodium Chloride 0.9% 1, 1000 000 ml @ 999 mls/hr IV . Q1H1M [facility] Rx#:[id number] propofoL 1,000 mg In 139.738 94.704 Empty Bag 1 bag @ 5 MCG/ KG/MIN 3.129 mls/hr IV . Q24H [facility] Rx#:[id number] Output: Urine 135 80 20 Other: Voiding Method Indwelling Catheter Indwelling Catheter ABP, PAP, CO, CI - Last Documented Arterial Blood Pressure 112/45 - Exam GENERAL EXAM: 67-year-old white male, intubated and mechanically ventilated. HEAD: Normocephalic/atraumatic. Endotracheal tube and orogastric tube are intact. HEENT: PERRLA, EOMI, anicteric, neck masses, no JVD. CHEST: No chest wall deformity. Symmetrical expansion. LUNGS: Crackles at the bases, no rhonchi no wheezes CVS: Regular rate and rhythm, normal S1 and S2, no gallops, no murmurs, no rubs ABDOMEN: Slightly distended, soft nontender, positive ascites. EXTREMITIES: No clubbing, no edema, no cyanosis, 2+ pulses and upper and lower extremities. SKIN: No rashes CENTRAL NERVOUS SYSTEM: Cannot assess, patient is fully sedated. Psychiatric: Cannot assess patient is fully sedated - Labs CBC & Chem 7: 07/05/22 04:12 07/05/22 04:12 Labs: Abnormal Lab Results - Last 24 Hours (Table) 07/04/22 07/04/22 07/04/22 Range/Units 05:45 10:30 11:09 WBC (3.8-10.6) k/uL RBC (4.30-5.90) m/uL Hgb (13.0-17.5) gm/dL Hct (39.0-53.0) % MCV (80.0-100.0) fL MCHC (31.0-37.0) g/dL Neutrophils # (1.3-7.7) k/uL Monocytes # (0-1.0) k/uL ABG pH 7.11 L* (7.35-7.45) ABG pCO2 91 H* (35-45) mmHg ABG pO2 76 L (83-108) mmHg ABG HCO3 29 H (21-25) mmol/L ABG Total CO2 32 H (19-24) mmol/L ABG O2 Saturation (94-97) % Potassium (3.5-5.1) mmol/L BUN (9-20) mg/dL Creatinine (0.66-1.25) mg/dL Glucose (74-99) mg/dL POC Glucose (mg/dL) 151 H (70-110) mg/dL Magnesium (1.6-2.3) mg/dL Total Bilirubin (0.2-1.3) mg/dL AST (17-59) U/L ALT (4-49) U/L Ammonia (<30) umol/L Procalcitonin 0.13 H (0.02-0.09) ng/mL 07/04/22 07/04/22 07/04/22 Range/Units 11:41 12:45 16:13 WBC (3.8-10.6) k/uL RBC (4.30-5.90) m/uL Hgb (13.0-17.5) gm/dL Hct (39.0-53.0) % MCV (80.0-100.0) fL MCHC (31.0-37.0) g/dL Neutrophils # (1.3-7.7) k/uL Monocytes # (0-1.0) k/uL ABG pH (7.35-7.45) ABG pCO2 (35-45) mmHg ABG pO2 (83-108) mmHg ABG HCO3 (21-25) mmol/L ABG Total CO2 (19-24) mmol/L ABG O2 Saturation (94-97) % Potassium (3.5-5.1) mmol/L BUN (9-20) mg/dL Creatinine (0.66-1.25) mg/dL Glucose (74-99) mg/dL POC Glucose (mg/dL) 142 H 136 H (70-110) mg/dL Magnesium (1.6-2.3) mg/dL Total Bilirubin (0.2-1.3) mg/dL AST (17-59) U/L ALT (4-49) U/L Ammonia 38 H (<30) umol/L Procalcitonin (0.02-0.09) ng/mL 07/04/22 07/04/22 07/05/22 Range/Units 19:37 20:45 04:12 WBC (3.8-10.6) k/uL RBC (4.30-5.90) m/uL Hgb (13.0-17.5) gm/dL Hct (39.0-53.0) % MCV (80.0-100.0) fL MCHC (31.0-37.0) g/dL Neutrophils # (1.3-7.7) k/uL Monocytes # (0-1.0) k/uL ABG pH 7.04 L* 7.12 L* (7.35-7.45) ABG pCO2 97 H* 79 H* (35-45) mmHg ABG pO2 81 L 73 L (83-108) mmHg ABG HCO3 26 H 26 H (21-25) mmol/L ABG Total CO2 29 H 28 H (19-24) mmol/L ABG O2 Saturation (94-97) % Potassium 6.0 H (3.5-5.1) mmol/L BUN 78 H (9-20) mg/dL Creatinine 2.47 H (0.66-1.25) mg/dL Glucose 70 L (74-99) mg/dL POC Glucose (mg/dL) (70-110) mg/dL Magnesium 2.4 H (1.6-2.3) mg/dL Total Bilirubin 2.0 H (0.2-1.3) mg/dL AST 541 H (17-59) U/L ALT 147 H (4-49) U/L Ammonia (<30) umol/L Procalcitonin (0.02-0.09) ng/mL 07/05/22 07/05/22 07/05/22 Range/Units 04:12 05:26 05:42 WBC 25.5 H (3.8-10.6) k/uL RBC 3.35 L (4.30-5.90) m/uL Hgb 11.0 L (13.0-17.5) gm/dL Hct 35.5 L (39.0-53.0) % MCV 106.0 H D (80.0-100.0) fL MCHC 30.9 L (31.0-37.0) g/dL Neutrophils # 21.1 H (1.3-7.7) k/uL Monocytes # 1.7 H (0-1.0) k/uL ABG pH 7.16 L* (7.35-7.45) ABG pCO2 61 H (35-45) mmHg ABG pO2 (83-108) mmHg ABG HCO3 (21-25) mmol/L ABG Total CO2 (19-24) mmol/L ABG O2 Saturation 98.2 H (94-97) % Potassium (3.5-5.1) mmol/L BUN (9-20) mg/dL Creatinine (0.66-1.25) mg/dL Glucose (74-99) mg/dL POC Glucose (mg/dL) 65 L (70-110) mg/dL Magnesium (1.6-2.3) mg/dL Total Bilirubin (0.2-1.3) mg/dL AST (17-59) U/L ALT (4-49) U/L Ammonia (<30) umol/L Procalcitonin (0.02-0.09) ng/mL 07/05/22 07/05/22 Range/Units 06:01 06:34 WBC (3.8-10.6) k/uL RBC (4.30-5.90) m/uL Hgb (13.0-17.5) gm/dL Hct (39.0-53.0) % MCV (80.0-100.0) fL MCHC (31.0-37.0) g/dL Neutrophils # (1.3-7.7) k/uL Monocytes # (0-1.0) k/uL ABG pH (7.35-7.45) ABG pCO2 (35-45) mmHg ABG pO2 (83-108) mmHg ABG HCO3 (21-25) mmol/L ABG Total CO2 (19-24) mmol/L ABG O2 Saturation (94-97) % Potassium (3.5-5.1) mmol/L BUN (9-20) mg/dL Creatinine (0.66-1.25) mg/dL Glucose (74-99) mg/dL POC Glucose (mg/dL) 129 H 127 H (70-110) mg/dL Magnesium (1.6-2.3) mg/dL Total Bilirubin (0.2-1.3) mg/dL AST (17-59) U/L ALT (4-49) U/L Ammonia (<30) umol/L Procalcitonin (0.02-0.09) ng/mL Microbiology - Last 24 Hours (Table) 06/29/22 15:12 Gram Stain - Final Ascites Fluid Body Fluid Culture - Final Assessment and Plan Assessment: Impression: Acute gram-positive bacteremia, exact source remains unclear. Acute hypoxic and hypercapnic respiratory failure requiring BiPAP. Patient failed BiPAP, and he was intubated on 07/04/2022 Ascites, status post paracentesis, cultures are negative so far. Acute ileus. Acute metabolic encephalopathy secondary to CO2 narcosis. Acute GI bleeding, presently inactive. Acute kidney injury secondary to sepsis. This is associated with oliguria. Multiple falls at home. History of opiate dependence History of underlying COPD/chronic bronchial asthma, unspecified. Chronic back pain. Generalized anxiety disorder. Status post paracentesis on 06/30/2022, 3.6 L removed. Recommendation: Continue ventilatory support Continue hemodynamic support and titrate the norepinephrine accordingly. Continue antibiotics. Patient is on Unasyn. Continue diuretics. Patient is on Lasix drip at 15 mg per hour, he will likely require hemodialysis. Central line placement was done. Arterial line placement was done. Agree with nephrology that the patient will likely require hemodialysis. Monitor in the ICU. TPN instead of enteral feeding since the patient had ileus and his initial presentation. GI and DVT prophylaxis. Patient is critically ill. Prognosis is extremely guarded. Critical care time is over 30 minutes. Not including the time spent on procedures. Time with Patient: Greater than 30
[2022-07-05 11:41] LABS: Glucose,Whole Blood 134 mg/dL (70-110)
[2022-07-05] MEDS: SODIUM CHLORIDE 0.9% 1,000 ML IV SCH (14:08)
--- NOTE | 2022-07-05 14:15 | P.PN ---
Subjective Progress Note Date: 07/05/22 CHIEF COMPLAINT: Abdominal distention HISTORY OF PRESENT ILLNESS: Patient in the ICU. He required to be intubated due to respiratory failure. Patient does have OG tube placed. Has had 200 mL output. Abdomen is softer. Paracentesis not completed due to insufficient fluid. Patient is requiring norepinephrine and propofol. He remains on antibiotics. He has been started on a Lasix drip. Nephrology is following in regards to YUDI. Patient possibly needing hemodialysis. Afebrile. WBC did increase from 18.94-25.5 hemoglobin 11 potassium 6 and 2.47 PHYSICAL EXAM: VITAL SIGNS: Reviewed GENERAL: Patient is intubated HEENT: No sclera icterus.Moist buccal mucosa. Head is atraumatic, normocephalic. NECK: Supple without lymphadenopathy. CHEST: Non-labored respirations and equal bilateral excursions. CARDIOVASCULAR: Palpable 2+ radial pulses. ABDOMEN: Soft. Less distended MUSCULOSKELETAL: No clubbing or cyanosis. NEUROLOGIC: Intubated and sedated SKIN: Well perfused. Good skin turgor. ASSESSMENT: 1. Duodenitis and jejunitis 2. Enteritis 3. Gastritis 4. Cirrhosis with abdominal ascites 5. Leukocytosis 6. Ileus 7. GI bleed resolved 8. Acute respiratory failure 9. Acute kidney injury PLAN: -PICC line ordered for TPN -Consult dietitian to initiate TPN for nutrition support -Continue ICU management -Continue supportive care -Continue OG tube for decompression Physician Reporting Process Consultant note has been reviewed by physician. Signing provider agrees with the documented findings, assessment, and plan of care. Objective - Vital Signs Vital signs: Vital Signs Temp 98.3 F 07/05/22 12:00 Pulse 78 07/05/22 12:30 Resp 22 07/05/22 12:30 BP 128/48 07/05/22 06:45 Pulse Ox 96 07/05/22 12:30 FiO2 50 07/05/22 12:30 Intake & Output 07/04/22 07/05/22 07/05/22 18:59 06:59 18:59 Intake Total 200 2472.424 858.050 Output Total 135 80 45 Balance 65 2392.424 813.050 Weight 104.3 kg Intake: IV 200 550 300 Sodium Chloride 0.9% 1, 200 550 300 000 ml @ 50 mls/hr IV . Q20H [facility] Rx#:[id number] Intake, IV Titration 1922.424 558.050 Amount Furosemide 100 mg In 69.833 Sodium Chloride 0.9% 90 ml @ 15 MG/HR 15 mls/hr IV .Q6H40M [facility] Rx#: [id number] Norepinephrine 4 mg In 712.853 458.050 Sodium Chloride 0.9% 250 ml @ 0.05 MCG/KG/MIN 19. 869 mls/hr IV .[id number] [facility] Rx#:[id number] Sodium Chloride 0.9% 1, 1000 000 ml @ 999 mls/hr IV . Q1H1M [facility] Rx#:[id number] propofoL 1,000 mg In 139.738 100.000 Empty Bag 1 bag @ 5 MCG/ KG/MIN 3.129 mls/hr IV . Q24H [facility] Rx#:[id number] Output: Urine 135 80 45 Other: Voiding Method Indwelling Catheter Indwelling Catheter Indwelling Catheter ABP, PAP, CO, CI - Last Documented Arterial Blood Pressure 110/41 - Labs CBC & Chem 7: 07/05/22 04:12 07/05/22 04:12 Labs: Abnormal Lab Results - Last 24 Hours (Table) 07/04/22 07/04/22 07/04/22 Range/Units 05:45 16:13 19:37 WBC (3.8-10.6) k/uL RBC (4.30-5.90) m/uL Hgb (13.0-17.5) gm/dL Hct (39.0-53.0) % MCV (80.0-100.0) fL MCHC (31.0-37.0) g/dL Neutrophils # (1.3-7.7) k/uL Monocytes # (0-1.0) k/uL ABG pH 7.04 L* (7.35-7.45) ABG pCO2 97 H* (35-45) mmHg ABG pO2 81 L (83-108) mmHg ABG HCO3 26 H (21-25) mmol/L ABG Total CO2 29 H (19-24) mmol/L ABG O2 Saturation (94-97) % Potassium (3.5-5.1) mmol/L BUN (9-20) mg/dL Creatinine (0.66-1.25) mg/dL Glucose (74-99) mg/dL POC Glucose (mg/dL) 136 H (70-110) mg/dL Magnesium (1.6-2.3) mg/dL Total Bilirubin (0.2-1.3) mg/dL AST (17-59) U/L ALT (4-49) U/L Procalcitonin 0.13 H (0.02-0.09) ng/mL 07/04/22 07/05/22 07/05/22 Range/Units 20:45 04:12 04:12 WBC 25.5 H (3.8-10.6) k/uL RBC 3.35 L (4.30-5.90) m/uL Hgb 11.0 L (13.0-17.5) gm/dL Hct 35.5 L (39.0-53.0) % MCV 106.0 H D (80.0-100.0) fL MCHC 30.9 L (31.0-37.0) g/dL Neutrophils # 21.1 H (1.3-7.7) k/uL Monocytes # 1.7 H (0-1.0) k/uL ABG pH 7.12 L* (7.35-7.45) ABG pCO2 79 H* (35-45) mmHg ABG pO2 73 L (83-108) mmHg ABG HCO3 26 H (21-25) mmol/L ABG Total CO2 28 H (19-24) mmol/L ABG O2 Saturation (94-97) % Potassium 6.0 H (3.5-5.1) mmol/L BUN 78 H (9-20) mg/dL Creatinine 2.47 H (0.66-1.25) mg/dL Glucose 70 L (74-99) mg/dL POC Glucose (mg/dL) (70-110) mg/dL Magnesium 2.4 H (1.6-2.3) mg/dL Total Bilirubin 2.0 H (0.2-1.3) mg/dL AST 541 H (17-59) U/L ALT 147 H (4-49) U/L Procalcitonin (0.02-0.09) ng/mL 07/05/22 07/05/22 07/05/22 Range/Units 05:26 05:42 06:01 WBC (3.8-10.6) k/uL RBC (4.30-5.90) m/uL Hgb (13.0-17.5) gm/dL Hct (39.0-53.0) % MCV (80.0-100.0) fL MCHC (31.0-37.0) g/dL Neutrophils # (1.3-7.7) k/uL Monocytes # (0-1.0) k/uL ABG pH 7.16 L* (7.35-7.45) ABG pCO2 61 H (35-45) mmHg ABG pO2 (83-108) mmHg ABG HCO3 (21-25) mmol/L ABG Total CO2 (19-24) mmol/L ABG O2 Saturation 98.2 H (94-97) % Potassium (3.5-5.1) mmol/L BUN (9-20) mg/dL Creatinine (0.66-1.25) mg/dL Glucose (74-99) mg/dL POC Glucose (mg/dL) 65 L 129 H (70-110) mg/dL Magnesium (1.6-2.3) mg/dL Total Bilirubin (0.2-1.3) mg/dL AST (17-59) U/L ALT (4-49) U/L Procalcitonin (0.02-0.09) ng/mL 07/05/22 07/05/22 Range/Units 06:34 11:40 WBC (3.8-10.6) k/uL RBC (4.30-5.90) m/uL Hgb (13.0-17.5) gm/dL Hct (39.0-53.0) % MCV (80.0-100.0) fL MCHC (31.0-37.0) g/dL Neutrophils # (1.3-7.7) k/uL Monocytes # (0-1.0) k/uL ABG pH (7.35-7.45) ABG pCO2 (35-45) mmHg ABG pO2 (83-108) mmHg ABG HCO3 (21-25) mmol/L ABG Total CO2 (19-24) mmol/L ABG O2 Saturation (94-97) % Potassium (3.5-5.1) mmol/L BUN (9-20) mg/dL Creatinine (0.66-1.25) mg/dL Glucose (74-99) mg/dL POC Glucose (mg/dL) 127 H 134 H (70-110) mg/dL Magnesium (1.6-2.3) mg/dL Total Bilirubin (0.2-1.3) mg/dL AST (17-59) U/L ALT (4-49) U/L Procalcitonin (0.02-0.09) ng/mL Microbiology - Last 24 Hours (Table) 07/04/22 23:20 Sputum Culture - Preliminary Sputum 06/29/22 15:12 Gram Stain - Final Ascites Fluid Body Fluid Culture - Final
--- NOTE | 2022-07-05 14:21 | P.GSCN ---
History of Present Illness Consult date: 07/05/22 Reason for Consult: Acute kidney injury, need for hemodialysis Requesting physician: Peter Lozada History of present illness: This is a 67-year-old male initially presented to the emergency department with altered mental status and multiple falls on 06/21/2022. He was admitted with mental status changes, opiate dependence, COPD, sepsis and acute kidney injury. Patient was transferred to the ICU yesterday and had deterioration in clinical status throughout the evening. He is currently intubated and sedated. Patient developed significant oligoria. He had and increase in white count, patient hyperkalemic with potassium of 6.0 BUN 78 and creatinine 2.47. Nephrology is following patient for acute kidney injury and requested vascular surgery to place temporary dialysis catheter for renal replacement therapy. Review of Systems ROS unobtainable: due to endotracheal tube Past Medical History Past Medical History: Asthma, Cancer, CVA/TIA, GERD/Reflux, Hyperlipidemia, Hypertension, Thyroid Disorder Additional Past Medical History / Comment(s): Hx. of Brain Aneurysm, SKIN CANCER, CHRONIC NOSEBLEEDS History of Any Multi-Drug Resistant Organisms: None Reported Past Surgical History: Cholecystectomy, Orthopedic Surgery, Tonsillectomy Additional Past Surgical History / Comment(s): Knee surgery, Endovascular coiling for Brain Aneurysm.LESION REMOVED , SUSPENSION MICROLARYNGOSCOPY Past Anesthesia/Blood Transfusion Reactions: Previous Problems w/ Anesthesia Additional Past Anesthesia/Blood Transfusion Reaction / Comm: Woke up during surgery. Smoking Status: Current every day smoker - Past Family History Mother Family Medical History: Cancer Additional Family Medical History / Comment(s): uterine cancer Father Family Medical History: Cancer, CVA/TIA Additional Family Medical History / Comment(s): skin cancer Sister(s) Family Medical History: Cancer Additional Family Medical History / Comment(s): skin cancer Medications and Allergies Home Medications Medication Instructions Recorded Confirmed Type Baclofen [Lioresal] 10 mg PO HS 02/26/19 06/21/22 History Ipratropium/Albuterol Sulfate 1 puff INHALATION RT-QID 02/26/19 06/21/22 History [Combivent Respimat Inhaler] Metoprolol Succinate [Toprol XL] 50 mg PO QAM 02/26/19 06/21/22 History Omeprazole [PriLOSEC] 20 mg PO AC-BRKFST 02/26/19 06/21/22 History HYDROcodone/APAP 10-325MG [Abell 1 tab PO Q6HR PRN 09/07/21 06/21/22 History 10-325] Levothyroxine Sodium [Synthroid] 88 mcg PO QAM 09/07/21 06/21/22 History Morphine Sulfate ER [Ms Contin] 15 mg PO HS 09/07/21 06/21/22 History Zolpidem Tartrate [Ambien Cr] 12.5 mg PO HS PRN 09/07/21 06/21/22 History lisinopriL [Prinivil] 20 mg PO QAM 09/07/21 06/21/22 History Albuterol Sulfate [Proventil Hfa] 1 - 2 puff INHALATION Q6HR PRN 06/21/22 06/21/22 History Aspirin EC [Ecotrin Low Dose] 81 mg PO DAILY 06/21/22 06/21/22 History Ergocalciferol [Vitamin D2 (1250 1,250 mcg PO Q7D 06/21/22 06/21/22 History Mcg = 48459 Iu)] Fluticasone Nasal [place] [Flonase 1 spray EA NOSTRIL DAILY 06/21/22 06/21/22 History Nasal [place]] Furosemide [Lasix] 20 mg PO DAILY 06/21/22 06/21/22 History Mirtazapine [Remeron] 15 mg PO HS 06/21/22 06/21/22 History hydrOXYzine HCL [Atarax] 10 mg PO HS 06/21/22 06/21/22 History traZODone HCL [Desyrel] 100 mg PO HS 06/21/22 06/21/22 History Allergies Allergy/AdvReac Type Severity Reaction Status Date / Time No Known Allergies Allergy Verified 06/21/22 11:22 Surgical - Exam Vital Signs Temp Pulse Resp BP Pulse Ox 97.3 F L 82 16 121/67 97 06/21/22 11:15 06/21/22 11:15 06/21/22 11:15 06/21/22 11:15 06/21/22 11:15 General appearance: The patient is sedated and intubated. HET: Head is normocephalic and atraumatic. Neck: Supple without lymphadenopathy. Trachea midline. Heart: S1 S2. Regular rate and rhythm. Lungs: Crackles at bases. Abdomen: Soft, nondistended. Mildly distended. Extremities: Bilateral lower extremity edema. Neurological: Sedated and intubated. Results - Labs 07/05/22 04:12 07/05/22 04:12 Abnormal Lab Results - Last 24 Hours (Table) 07/04/22 07/04/22 07/04/22 Range/Units 05:45 16:13 19:37 WBC (3.8-10.6) k/uL RBC (4.30-5.90) m/uL Hgb (13.0-17.5) gm/dL Hct (39.0-53.0) % MCV (80.0-100.0) fL MCHC (31.0-37.0) g/dL Neutrophils # (1.3-7.7) k/uL Monocytes # (0-1.0) k/uL ABG pH 7.04 L* (7.35-7.45) ABG pCO2 97 H* (35-45) mmHg ABG pO2 81 L (83-108) mmHg ABG HCO3 26 H (21-25) mmol/L ABG Total CO2 29 H (19-24) mmol/L ABG O2 Saturation (94-97) % Potassium (3.5-5.1) mmol/L BUN (9-20) mg/dL Creatinine (0.66-1.25) mg/dL Glucose (74-99) mg/dL POC Glucose (mg/dL) 136 H (70-110) mg/dL Magnesium (1.6-2.3) mg/dL Total Bilirubin (0.2-1.3) mg/dL AST (17-59) U/L ALT (4-49) U/L Procalcitonin 0.13 H (0.02-0.09) ng/mL 07/04/22 07/05/22 07/05/22 Range/Units 20:45 04:12 04:12 WBC 25.5 H (3.8-10.6) k/uL RBC 3.35 L (4.30-5.90) m/uL Hgb 11.0 L (13.0-17.5) gm/dL Hct 35.5 L (39.0-53.0) % MCV 106.0 H D (80.0-100.0) fL MCHC 30.9 L (31.0-37.0) g/dL Neutrophils # 21.1 H (1.3-7.7) k/uL Monocytes # 1.7 H (0-1.0) k/uL ABG pH 7.12 L* (7.35-7.45) ABG pCO2 79 H* (35-45) mmHg ABG pO2 73 L (83-108) mmHg ABG HCO3 26 H (21-25) mmol/L ABG Total CO2 28 H (19-24) mmol/L ABG O2 Saturation (94-97) % Potassium 6.0 H (3.5-5.1) mmol/L BUN 78 H (9-20) mg/dL Creatinine 2.47 H (0.66-1.25) mg/dL Glucose 70 L (74-99) mg/dL POC Glucose (mg/dL) (70-110) mg/dL Magnesium 2.4 H (1.6-2.3) mg/dL Total Bilirubin 2.0 H (0.2-1.3) mg/dL AST 541 H (17-59) U/L ALT 147 H (4-49) U/L Procalcitonin (0.02-0.09) ng/mL 07/05/22 07/05/22 07/05/22 Range/Units 05:26 05:42 06:01 WBC (3.8-10.6) k/uL RBC (4.30-5.90) m/uL Hgb (13.0-17.5) gm/dL Hct (39.0-53.0) % MCV (80.0-100.0) fL MCHC (31.0-37.0) g/dL Neutrophils # (1.3-7.7) k/uL Monocytes # (0-1.0) k/uL ABG pH 7.16 L* (7.35-7.45) ABG pCO2 61 H (35-45) mmHg ABG pO2 (83-108) mmHg ABG HCO3 (21-25) mmol/L ABG Total CO2 (19-24) mmol/L ABG O2 Saturation 98.2 H (94-97) % Potassium (3.5-5.1) mmol/L BUN (9-20) mg/dL Creatinine (0.66-1.25) mg/dL Glucose (74-99) mg/dL POC Glucose (mg/dL) 65 L 129 H (70-110) mg/dL Magnesium (1.6-2.3) mg/dL Total Bilirubin (0.2-1.3) mg/dL AST (17-59) U/L ALT (4-49) U/L Procalcitonin (0.02-0.09) ng/mL 07/05/22 07/05/22 Range/Units 06:34 11:40 WBC (3.8-10.6) k/uL RBC (4.30-5.90) m/uL Hgb (13.0-17.5) gm/dL Hct (39.0-53.0) % MCV (80.0-100.0) fL MCHC (31.0-37.0) g/dL Neutrophils # (1.3-7.7) k/uL Monocytes # (0-1.0) k/uL ABG pH (7.35-7.45) ABG pCO2 (35-45) mmHg ABG pO2 (83-108) mmHg ABG HCO3 (21-25) mmol/L ABG Total CO2 (19-24) mmol/L ABG O2 Saturation (94-97) % Potassium (3.5-5.1) mmol/L BUN (9-20) mg/dL Creatinine (0.66-1.25) mg/dL Glucose (74-99) mg/dL POC Glucose (mg/dL) 127 H 134 H (70-110) mg/dL Magnesium (1.6-2.3) mg/dL Total Bilirubin (0.2-1.3) mg/dL AST (17-59) U/L ALT (4-49) U/L Procalcitonin (0.02-0.09) ng/mL Microbiology - Last 24 Hours (Table) 07/04/22 23:20 Sputum Culture - Preliminary Sputum 06/29/22 15:12 Gram Stain - Final Ascites Fluid Body Fluid Culture - Final Diabetes panel 07/05/22 Range/Units 04:12 Sodium 139 (137-145) mmol/L Potassium 6.0 H (3.5-5.1) mmol/L Chloride 103 (98-107) mmol/L Carbon Dioxide 22 (22-30) mmol/L BUN 78 H (9-20) mg/dL Creatinine 2.47 H (0.66-1.25) mg/dL Glucose 70 L (74-99) mg/dL Calcium 8.5 (8.4-10.2) mg/dL AST 541 H (17-59) U/L ALT 147 H (4-49) U/L Alkaline Phosphatase 119 (38-126) U/L Total Protein 6.5 (6.3-8.2) g/dL Albumin 3.9 (3.5-5.0) g/dL Calcium panel 07/05/22 Range/Units 04:12 Calcium 8.5 (8.4-10.2) mg/dL Albumin 3.9 (3.5-5.0) g/dL Pituitary panel 07/05/22 Range/Units 04:12 Sodium 139 (137-145) mmol/L Potassium 6.0 H (3.5-5.1) mmol/L Chloride 103 (98-107) mmol/L Carbon Dioxide 22 (22-30) mmol/L BUN 78 H (9-20) mg/dL Creatinine 2.47 H (0.66-1.25) mg/dL Glucose 70 L (74-99) mg/dL Calcium 8.5 (8.4-10.2) mg/dL Adrenal panel 07/05/22 Range/Units 04:12 Sodium 139 (137-145) mmol/L Potassium 6.0 H (3.5-5.1) mmol/L Chloride 103 (98-107) mmol/L Carbon Dioxide 22 (22-30) mmol/L BUN 78 H (9-20) mg/dL Creatinine 2.47 H (0.66-1.25) mg/dL Glucose 70 L (74-99) mg/dL Calcium 8.5 (8.4-10.2) mg/dL Total Bilirubin 2.0 H (0.2-1.3) mg/dL AST 541 H (17-59) U/L ALT 147 H (4-49) U/L Alkaline Phosphatase 119 (38-126) U/L Total Protein 6.5 (6.3-8.2) g/dL Albumin 3.9 (3.5-5.0) g/dL Assessment and Plan Assessment: 1. Acute kidney injury requiring hemodialysis 2. Hyperkalemia 3. Acute hypoxic respiratory failure 4. Bacteremia Plan: 1. Please obtain consent for temporary femoral hemodialysis catheter placement 2. Plan for bedside hemodialysis catheter placement 3. Hemodialysis per recommendations from nephrology Thank you for this consultation, we will continue to follow. The impression and plan of care has been dictated as directed. I performed a history and examination of this patient, discussed the same with the dictator. I agree with the dictator's note ,documented as a scribe. Any additional findings or plans will be noted.
[2022-07-05 14:40] LABS: Phosphorus 6.4 mg/dL (2.5-4.5)
--- NOTE | 2022-07-05 14:43 | P.PCN ---
Date of Procedure: 07/05/22 Preoperative Diagnosis: Acute renal failure Postoperative Diagnosis: Acute renal failure Procedure(s) Performed: Left femoral temporary hemodialysis catheter placement Ultrasound guided left common femoral vein access Surgeon: Diogo López Estimated Blood Loss (ml): 5 Pathology: none sent Condition: stable Disposition: ICU Indications for Procedure: 67 year old male with altered mental status, treated for sepsis who developed acute kidney failure with potassium above 6 whom is in need of hemodialysis. Description of Procedure: After written and informed consent was obtained from the patients family and all risks, benefits and complications were described the procedure was done at bedside in the ICU. The area of the left groin was prepped and draped in usual sterile fashion. Using ultrasound the left common femoral vein was located and shown to be patent, compressible without thrombus. Under ultrasound guidance the left common femoral vein was accessed with a multipurpose needle and wire was placed. Serial dilation was then performed and a straight 13cm catheter was then guided over the wire. The catheter aleta and flushed easy and was then heplocked. The catheter was then secured with suture and dressings. The patient tolerated the procedure well.
--- NOTE | 2022-07-05 15:16 | P.PN ---
Subjective Progress Note Date: 07/05/22 Ag Souza, is a 67-year-old male who presented to [facility] emergency room after having a multiple falls at home, has significant mental status changes with somnolence and poor responsiveness, history per his , over the last 24 hours patient has been not feeling well, he fell twice at home, on the second time she was not able to wake him up and get him up from the floor through the bed, she called EMS and he was brought into emergency room. He was evaluated in the emergency room vital examination on presentation revealed a temperature of 97.3 pulse 82 respiration 16 blood pressure 121/67 pulse ox 97% on room air Laboratory data revealed a white blood count of 23.2 hemoglobin 14.4 platelet count 98,000 sodium 129 potassium 4.9 chloride 96 CO2 25 BUN 51 creatinine 2.24 troponin level was 0.02 COVID-19 testing was negative Testing in the emergency room revealed chest x-ray done in the emergency room did not reveal significant abnormality. Patient has a known history of degenerative disc disease with chronic pain maintained on narcotics for pain management he was given Narcan in the emergency room which led to improvement in his mental status. Patient was admitted to medical floor for further evaluation and treatment. On 06/22/2022 patient was seen and examined on the telemetry floor he is still somnolent, agitated, pulling on his IV line, he was started through the night on IV Ativan, vital examination reveals a temperature of 98.4 pulse 132 respiration 24 blood pressure 172/91 pulse ox 96% on 2 L nasal cannula, white blood count is 21.9 hemoglobin 14.8 platelet count 118 d-dimer was elevated at 2.12 at this time will start patient on IV heparin high-intensity for possible pulmonary embolism, his kidney function is still elevated, will defer computed tomography scan this time, he is not cooperative to proceed with VQ scan, will continue with IV fluid, nephrology consultation and infectious disease consultation were requested. On 06/23/2022 patient was seen and examined in the ICU he is more alert and oriented today vital exam reveals a temperature of 98.2 pulse 86 respiration 23 blood pressure 138/79 pulse ox 93% on 2 L nasal cannula white blood count is down to 15.4 hemoglobin 13.2 platelet count 125 kidney function improved with BUN at 66 and creatinine at 0.89 kidney ultrasound was done and revealed no evidence of renal stones or obstruction, CT angiogram of the chest was done and there was no evidence of pulmonary embolism, blood culture were positive for Streptococcus group b , patient is currently maintained on IV Unasyn, IV vanc omycin and IV acyclovir, cardiology, pulmonary, nephrology, neurology and infectious disease are following On 06/24/2022 patient was seen and examined in the ICU he is more alert and oriented today kidney ultrasound was done and revealed no evidence of renal stones or obstruction, CT angiogram of the chest was done and there was no evidence of pulmonary embolism, blood culture were positive for Streptococcus group b , patient is currently maintained on IV Unasyn, IV vancomycin and IV acyclovir, cardiology, pulmonary, nephrology, neurology and infectious disease are following. Patient had a maroon colored stools through the night, GI consultation is not available this week, surgical consultation was requested for evaluation for possible GI bleed On 06/25/2022 patient was seen and examined in the ICU, he is more alert and responsive today, there is no fever or chills no headache or dizziness no chest pain no shortness of breath no cough no nausea or vomiting no abdominal pain no diarrhea and no urinary symptoms. IV heparin has been discontinued, at this time will start subcu Lovenox for DVT prophylaxis, he remains on IV antibiotics cefazolin 2 g IV every 8 hours. On 06/26/2022 patient was seen and examined in the ICU he is alert and oriented 3 in no apparent distress he is complaining of abdominal discomfort otherwise he denies any complaint at this time there is no fever or chills no headache or dizziness no chest pain no shortness of breath no cough no nausea or vomiting no diarrhea no blood in the stools no burning with urination no frequency or urgency and no hematuria. On 06/27/2022 patient was seen and examined on in the ICU he is alert and oriented 3, he is feeling better, he had multiple bowel movements and his abdominal pain has improved, he is still complaining of difficulty sleeping at night otherwise he denies any complaints there is no fever or chills no headache or dizziness no chest pain no shortness of breath no cough no nausea or vomiting no abdominal pain no diarrhea no blood in the stools no burning with urination no frequency or urgency and no hematuria. On 06/28/2022 patient was seen and examined on the medical floor he is alert and oriented 3 in no distress there is no fever or chills no headache or dizziness no chest pain no shortness of breath no cough no nausea or vomiting no abdominal pain no diarrhea, no blood in the stools no burning with urination no frequency or urgency and no hematuria patient has generalized weakness he is improving gradually will continue to follow closely physical therapy is following On 06/29/2022 patient was seen and examined on the medical floor he is alert and oriented 3 in no apparent distress there is no fever or chills no headache or dizziness no chest pain no shortness of breath no cough no nausea or vomiting he is complaining of abdominal discomfort with abdominal distention no diarrhea or constipation no blood in the stools no burning with urination no frequency or urgency and no hematuria. At this time patient is scheduled for computed tomography scan of the abdomen and pelvis will continue to monitor closely. On 06/30/2022 patient was seen and examined on the telemetry floor he is alert and oriented 3 in no apparent distress he is complaining now of severe neck gina n and back pain and requesting Glenn, patient underwent paracentesis today, 3.5 L of fluid were removed, otherwise patient denies any other symptoms there is no fever or chills no headache or dizziness no chest pain no shortness of breath no cough no nausea or vomiting no abdominal pain no diarrhea and no urinary symptoms On 07/01/2022 patient was seen and examined on the medical floor he is alert and oriented 3 in no apparent distress he is complaining of abdominal discomfort and distention otherwise he denies any complaints at this time there is no fever or chills no headache or dizziness no chest pain no shortness of breath no cough no nausea or vomiting no diarrhea no blood in the stools no burning with urination no frequency or urgency and no hematuria On 07/02/2022 patient was seen and examined on the medical floor he is alert and oriented 3 in no apparent distress he is complaining of abdominal discomfort and distention, he is complaining of bilateral hip pain, he received 1 dose of lactulose and had multiple episodes of diarrhea afterwards lactulose was discontinued, otherwise he denies any complaints at this time there is no fever or chills no headache or dizziness no chest pain no shortness of breath no cough no nausea or vomiting no blood in the stools no burning with urination no frequency or urgency and no hematuria. On 07/03/2022 patient was seen and examined the medical he is alert and oriented he is complaining of abdominal distention was discomfort and shortness of breath otherwise he denies any complaints there is no fever or chills no headache or dizziness no chest pain no cough no nausea or vomiting no urinary symptoms On 07/04/2022 patient was seen and examined in the ICU he is more lethargic today he was started on BiPAP and transferred to ICU today ammonia level is elevated at 38 there is no fever or chills no headache or dizziness no chest pain patient has significant distention in the abdomen, no nausea or vomiting no diarrhea, Russo catheter is in. On 07/05/2022 patient was seen and examined in the ICU at this time he is intubated sedated maintained on mechanical ventilation, currently he is on assist control rate of 20 to FiO2 50% and PEEP of 5 he had a dialysis catheter placed and a session of hemodialysis is scheduled for this afternoon, patient is maintained on norepinephrine drip, white blood count is up to 25,000 hemoglobin is 11 BUN is up to 78 and creatinine 2.47 patient is maintained on IV Zosyn infectious disease are following, prognosis is guarded will continue with aggressive management at this time and sister are at the bedside and are aware of patient's condition. Objective - Vital Signs Vital signs: Vital Signs Temp 98.3 F 07/05/22 12:00 Pulse 81 07/05/22 14:00 Resp 22 07/05/22 14:00 BP 128/48 07/05/22 06:45 Pulse Ox 96 07/05/22 14:00 FiO2 50 07/05/22 14:00 Intake & Output 07/04/22 07/05/22 07/05/22 18:59 06:59 18:59 Intake Total 200 2472.424 858.050 Output Total 135 80 45 Balance 65 2392.424 813.050 Weight 104.3 kg Intake: IV 200 550 300 Sodium Chloride 0.9% 1, 200 550 300 000 ml @ 50 mls/hr IV . Q20H [facility] Rx#:[id number] Intake, IV Titration 1921.424 558.050 Amount Furosemide 100 mg In 69.833 Sodium Chloride 0.9% 90 ml @ 15 MG/HR 15 mls/hr IV .Q6H40M [facility] Rx#: [id number] Norepinephrine 4 mg In 712.853 458.050 Sodium Chloride 0.9% 250 ml @ 0.05 MCG/KG/MIN 19. 869 mls/hr IV .[id number] [facility] Rx#:[id number] Sodium Chloride 0.9% 1, 1000 000 ml @ 999 mls/hr IV . Q1H1M [facility] Rx#:[id number] propofoL 1,000 mg In 139.738 100.000 Empty Bag 1 bag @ 5 MCG/ KG/MIN 3.129 mls/hr IV . Q24H [facility] Rx#:[id number] Output: Urine 135 80 45 Other: Voiding Method Indwelling Catheter Indwelling Catheter Indwelling Catheter ABP, PAP, CO, CI - Last Documented Arterial Blood Pressure 137/56 - Exam In general patient is alert and responsive in no apparent distress HEENT head normocephalic and atraumatic Neck is supple no JVD no goiter no lymphadenopathy no carotid bruit Chest examination is clear to auscultation no crackles no wheezing Cardiac exam reveals regular heart sounds S1 and S2 no gallops no murmurs Abdomen is distended with generalized tenderness, no organomegaly Extremity exam reveals no edema no cyanosis or clubbing Neurological examination reveals no gross focal deficits - Labs CBC & Chem 7: 07/05/22 04:12 07/05/22 14:05 Labs: Abnormal Lab Results - Last 24 Hours (Table) 07/04/22 07/04/22 07/04/22 Range/Units 05:45 16:13 19:37 WBC (3.8-10.6) k/uL RBC (4.30-5.90) m/uL Hgb (13.0-17.5) gm/dL Hct (39.0-53.0) % MCV (80.0-100.0) fL MCHC (31.0-37.0) g/dL Neutrophils # (1.3-7.7) k/uL Monocytes # (0-1.0) k/uL ABG pH 7.04 L* (7.35-7.45) ABG pCO2 97 H* (35-45) mmHg ABG pO2 81 L (83-108) mmHg ABG HCO3 26 H (21-25) mmol/L ABG Total CO2 29 H (19-24) mmol/L ABG O2 Saturation (94-97) % Potassium (3.5-5.1) mmol/L BUN (9-20) mg/dL Creatinine (0.66-1.25) mg/dL Glucose (74-99) mg/dL POC Glucose (mg/dL) 136 H (70-110) mg/dL Magnesium (1.6-2.3) mg/dL Total Bilirubin (0.2-1.3) mg/dL AST (17-59) U/L ALT (4-49) U/L Procalcitonin 0.13 H (0.02-0.09) ng/mL 07/04/22 07/05/22 07/05/22 Range/Units 20:45 04:12 04:12 WBC 25.5 H (3.8-10.6) k/uL RBC 3.35 L (4.30-5.90) m/uL Hgb 11.0 L (13.0-17.5) gm/dL Hct 35.5 L (39.0-53.0) % MCV 106.0 H D (80.0-100.0) fL MCHC 30.9 L (31.0-37.0) g/dL Neutrophils # 21.1 H (1.3-7.7) k/uL Monocytes # 1.7 H (0-1.0) k/uL ABG pH 7.12 L* (7.35-7.45) ABG pCO2 79 H* (35-45) mmHg ABG pO2 73 L (83-108) mmHg ABG HCO3 26 H (21-25) mmol/L ABG Total CO2 28 H (19-24) mmol/L ABG O2 Saturation (94-97) % Potassium 6.0 H (3.5-5.1) mmol/L BUN 78 H (9-20) mg/dL Creatinine 2.47 H (0.66-1.25) mg/dL Glucose 70 L (74-99) mg/dL POC Glucose (mg/dL) (70-110) mg/dL Magnesium 2.4 H (1.6-2.3) mg/dL Total Bilirubin 2.0 H (0.2-1.3) mg/dL AST 541 H (17-59) U/L ALT 147 H (4-49) U/L Procalcitonin (0.02-0.09) ng/mL 07/05/22 07/05/22 07/05/22 Range/Units 05:26 05:42 06:01 WBC (3.8-10.6) k/uL RBC (4.30-5.90) m/uL Hgb (13.0-17.5) gm/dL Hct (39.0-53.0) % MCV (80.0-100.0) fL MCHC (31.0-37.0) g/dL Neutrophils # (1.3-7.7) k/uL Monocytes # (0-1.0) k/uL ABG pH 7.16 L* (7.35-7.45) ABG pCO2 61 H (35-45) mmHg ABG pO2 (83-108) mmHg ABG HCO3 (21-25) mmol/L ABG Total CO2 (19-24) mmol/L ABG O2 Saturation 98.2 H (94-97) % Potassium (3.5-5.1) mmol/L BUN (9-20) mg/dL Creatinine (0.66-1.25) mg/dL Glucose (74-99) mg/dL POC Glucose (mg/dL) 65 L 129 H (70-110) mg/dL Magnesium (1.6-2.3) mg/dL Total Bilirubin (0.2-1.3) mg/dL AST (17-59) U/L ALT (4-49) U/L Procalcitonin (0.02-0.09) ng/mL 07/05/22 07/05/22 Range/Units 06:34 11:40 WBC (3.8-10.6) k/uL RBC (4.30-5.90) m/uL Hgb (13.0-17.5) gm/dL Hct (39.0-53.0) % MCV (80.0-100.0) fL MCHC (31.0-37.0) g/dL Neutrophils # (1.3-7.7) k/uL Monocytes # (0-1.0) k/uL ABG pH (7.35-7.45) ABG pCO2 (35-45) mmHg ABG pO2 (83-108) mmHg ABG HCO3 (21-25) mmol/L ABG Total CO2 (19-24) mmol/L ABG O2 Saturation (94-97) % Potassium (3.5-5.1) mmol/L BUN (9-20) mg/dL Creatinine (0.66-1.25) mg/dL Glucose (74-99) mg/dL POC Glucose (mg/dL) 127 H 134 H (70-110) mg/dL Magnesium (1.6-2.3) mg/dL Total Bilirubin (0.2-1.3) mg/dL AST (17-59) U/L ALT (4-49) U/L Procalcitonin (0.02-0.09) ng/mL Microbiology - Last 24 Hours (Table) 07/04/22 23:20 Sputum Culture - Preliminary Sputum 06/29/22 15:12 Gram Stain - Final Ascites Fluid Body Fluid Culture - Final Assessment and Plan Plan: Mental status changes, cause is unclear could be related to overdose of narcotic Leukocytosis, no clear source of infection, chest x-ray and urine analysis don't show any clear evidence of infection, patient received IV steroids in the EMS an d in the emergency room, will check lactic acid level and monitor CBC Acute exacerbation of COPD with wheezing on presentation, he was started on IV Solu-Medrol in the emergency room, he is on inhaled bronchodilators Evidence of acute kidney injury was elevated BUN and creatinine patient was started on IV fluid, nephrology consultation was requested Abdominal ascites, status post paracentesis 06/30/2022 with 3.5 L of fluid removed, Evidence of liver cirrhosis Mild elevation in troponin level will monitor Underlying history of hypertension Underlying history of hypothyroidism Underlying history of depression with anxiety disorder Underlying history of vitamin D deficiency Underlying history of degenerative disc disease with chronic back pain maintained on narcotics for pain management Underlying history of gastroesophageal reflux disease At this time patient is admitted to telemetry floor Will check d-dimer check lactic acid recheck CBC and CMP Continue with IV fluid and recheck renal function Consult nephrology
[2022-07-05] MEDS ORDERED: [UNRECOGNIZED DRUG - REMARK] IV ONE ×6 (15:30)
[2022-07-05] MEDS: PIPERACILLIN-TAZOBACTAM 3.375 GM in SODIUM CHLORIDE 0.9% 100 ML IVPB SCH (16:43)
[2022-07-05 17:29] LABS: Glucose,Whole Blood 145 mg/dL (70-110)
--- NOTE | 2022-07-05 17:54 | OP ---
OPERATIVE REPORT OPERATIVE REPORT: Placement of the right femoral triple-lumen catheter. PREOPERATIVE DIAGNOSIS: Sepsis and septic shock. POSTOPERATIVE DIAGNOSIS: Sepsis and septic shock. ANESTHESIA USED: 2 mL of 1% lidocaine. DESCRIPTION OF PROCEDURE: The patient was placed in the supine position, the right groin was prepared in a sterile fashion and drapes were applied. The area was locally anesthetized, the right femoral vein was easily cannulated, a guidewire was placed and the area around the guidewire was dilated. A triple-lumen catheter was inserted over the guidewire, the guidewire was removed. Good blood flow was noted in the 3 different ports of the triple-lumen catheter. No complications. Line was secured using 3-0 silk sutures. MMODL / IJN: [id number] /
[2022-07-05 21:26] LABS: Glucose,Whole Blood 191 mg/dL (70-110)
[2022-07-05] MEDS: ALPRAZolam 0.5 MG TAB PO SCH (21:35)
[2022-07-05] MEDS: MELATONIN 5 MG TABLET PO SCH (21:36)
[2022-07-05 23:32] LABS: Hepatitis B Surface AB- Quant 3.5 mIU/mL; Hepatitis B Surface Antibody Nonreactive (Nonreactive)
[2022-07-05 23:41] LABS: Hepatitis B Surface Antigen Nonreactive (Nonreactive)
[2022-07-06 00:07] LABS: Glucose,Whole Blood 219 mg/dL (70-110)
[2022-07-06] MEDS: OCTREOTIDE 100 MCG/ML INJ IVP SCH ×4 (00:38→23:59)
[2022-07-06] MEDS: PIPERACILLIN-TAZOBACTAM 3.375 GM in SODIUM CHLORIDE 0.9% 100 ML IVPB SCH ×4 (00:38→23:05)
[2022-07-06] MEDS: METOCLOPRAMIDE 5 MG/ML 2 ML VIAL IVP SCH ×5 (00:38→23:05)
[2022-07-06] MEDS: NOREPINEPHRINE 32 MG in SODIUM CHLORIDE 0.9% 218 ML IV SCH ×2 (02:46→18:48)
[2022-07-06 04:00] LABS: Basophils # (A) 0.1 k/uL (0-0.2); Basophils % (A) 1 %; Eosinophils # (A) 0.1 k/uL (0-0.7); Eosinophils % (A) 1 %; HCT 32.6 % (39.0-53.0); HGB 10.5 gm/dL (13.0-17.5); Hypochromasia Moderate; Lymphocytes % (A) 17 %; MCH 32.7 pg (25.0-35.0); MCHC 32.2 g/dL (31.0-37.0); MCV 101.8 fL (80.0-100.0); Macrocytosis Slight; Mean Platelet Volume 9.6; Monocytes # (A) 1.7 k/uL (0-1.0); Monocytes % (A) 10 %; Neutrophils % (A) 69 %; Platelet Count 167 k/uL (150-450); RDW 14.6 % (11.5-15.5); WBC 17.4 k/uL (3.8-10.6)
[2022-07-06] MEDS: FUROSEMIDE 100 MG in SODIUM CHLORIDE 0.9% 90 ML IV SCH (04:04)
[2022-07-06] MEDS: HYDROmorphone 1 MG/ML 1 ML SYRINGE IVP PRN (04:11)
[2022-07-06 04:14] LABS: Ionized Calcium 4.6 mg/dL (4.5-5.3)
[2022-07-06] MEDS ORDERED: DILTIAZEM DRIP BOLUS FROM BAG 1 MG SOLN IV ONE (04:21)
[2022-07-06 04:26] LABS: Albumin 3.3 g/dL (3.5-5.0); C Reactive Protein 2.3 mg/dL (<1.0); Magnesium 2.3 mg/dL (1.6-2.3); Phosphorus 4.7 mg/dL (2.5-4.5); Potassium 4.4 mmol/L (3.5-5.1); Total Protein 5.9 g/dL (6.3-8.2)
[2022-07-06] MEDS: DILTIAZEM 125 MG in SODIUM CHLORIDE 0.9% 100 ML IV SCH ×3 (05:03→18:47)
[2022-07-06 05:48] LABS: ABG Base Excess -2.3 mmol/L; ABG HCO3 24 mmol/L (21-25); ABG Oxygen Saturation 97.2 % (94-97); ABG PCO2 47 mmHg (35-45); ABG PH 7.31 (7.35-7.45); ABG PO2 87 mmHg (83-108); ABG TCO2 25 mmol/L (19-24); Allen Test Performed? Yes
[2022-07-06 07:02] LABS: Glucose,Whole Blood 197 mg/dL (70-110)
[2022-07-06] MEDS: LEVOTHYROXINE 88 MCG TAB PO SCH (07:05)
[2022-07-06] MEDS: INSULIN ASPART (NovoLOG) 100 UNIT/ML VIAL SQ SCH ×4 (07:11→22:12)
--- NOTE | 2022-07-06 07:25 | XR ---
EXAMINATION TYPE: XR chest 1V portable DATE OF EXAM: 07/06/2022 Comparison: 07/05/2022 Clinical History: 67-year-old male Tube placement Findings: ET tube tip at the level of the medial clavicular heads. NG tube courses below the diaphragm. Heart u pper limits of normal in size. Patchy interstitial opacities persist bilaterally. There may be minima l improvement from prior. Impression: Interstitial and patchy bilateral opacities persist but with minimal improvement
[2022-07-06] MEDS: IPRATROPIUM-ALBUTEROL 3 ML NEB INHALATION SCH ×4 (07:42→20:53)
[2022-07-06] MEDS ORDERED: FUROSEMIDE 10 MG/ML 10 ML VIAL IV STA (08:26)
--- NOTE | 2022-07-06 09:09 | P.PN ---
Subjective Patient is seen in follow-up for acute kidney injury. Started on hemodialysis 07/05/2022. Tolerated dialysis well yesterday. Remains intubated. On Levophed. Went into A. fib with RVR last night and is maintained on Cardizem drip. Vital signs are stable. On vasopressor support. General: Resting in bed. HEENT: Intubated. LUNGS: Breath sounds decreased. HEART: Rate and Rhythm are regular. ABDOMEN: Soft, distention noted. EXTREMITITES: 2+ edema. Objective - Vital Signs Vital signs: Vital Signs Temp 98.8 F 07/06/22 04:00 Pulse 88 07/06/22 07:52 Resp 22 07/06/22 07:30 BP 128/48 07/06/22 07:30 Pulse Ox 97 07/06/22 07:30 FiO2 20 07/06/22 07:14 Intake & Output 07/05/22 07/06/22 07/06/22 18:59 06:59 18:59 Intake Total 3081.340 6327.496 95 Output Total 1080 160 12 Balance 359.801 1676.496 83 Weight 104.3 kg Intake: IV 600 855 95 Furosemide 100 mg In 135 15 Sodium Chloride 0.9% 90 ml @ 15 MG/HR 15 mls/hr IV .Q6H40M [facility] Rx#: [id number] Mvi, Adult No.4 with Vit 270 30 K 10 ml Trace (Conc-1Ml/ Dose) 1 ml Sodium Acetate 16 meq Sodium Chloride 4Meq/ml Vial 16 meq Calcium Gluconate 1 gm In Amino Acid 5%-D15w 1,000 ml @ 30 mls/hr IV .Q24H [facility] Rx#:[id number] Piperacillin-Tazobactam 3 100 .375 gm In Sodium Chloride 0.9% 100 ml @ 25 mls/hr IVPB Q8HR [facility] Rx# :[id number] Sodium Chloride 0.9% 1, 600 350 50 000 ml @ 50 mls/hr IV . Q20H [facility] Rx#:[id number] Intake, IV Titration 957.190 545.496 Amount Furosemide 100 mg In 88.5 197.5 Sodium Chloride 0.9% 90 ml @ 15 MG/HR 15 mls/hr IV .Q6H40M [facility] Rx#: [id number] Mvi, Adult No.4 with Vit 30 K 10 ml Trace (Conc-1Ml/ Dose) 1 ml Sodium Acetate 16 meq Sodium Chloride 4Meq/ml Vial 16 meq Calcium Gluconate 1 gm In Amino Acid 5%-D15w 1,000 ml @ 30 mls/hr IV .Q24H [facility] Rx#:[id number] Norepinephrine 32 mg In 113.082 147.996 Sodium Chloride 0.9% 218 ml @ 0.05 MCG/KG/MIN 2. 445 mls/hr IV .Q24H [facility] Rx#:[id number] Norepinephrine 4 mg In 458.050 Sodium Chloride 0.9% 250 ml @ 0.05 MCG/KG/MIN 19. 869 mls/hr IV .[id number] [facility] Rx#:[id number] propofoL 1,000 mg In 267.558 200.000 Empty Bag 1 bag @ 5 MCG/ KG/MIN 3.129 mls/hr IV . Q24H [facility] Rx#:[id number] Output: Urine 80 160 12 Hemodialysis 1000 Other: Voiding Method Indwelling Catheter Indwelling Catheter ABP, PAP, CO, CI - Last Documented Arterial Blood Pressure 112/43 - Labs CBC & Chem 7: 07/06/22 03:35 07/06/22 03:35 Labs: Abnormal Lab Results - Last 24 Hours (Table) 07/05/22 07/05/22 07/05/22 Range/Units 11:40 14:05 14:05 WBC (3.8-10.6) k/uL RBC (4.30-5.90) m/uL Hgb (13.0-17.5) gm/dL Hct (39.0-53.0) % MCV (80.0-100.0) fL Neutrophils # (1.3-7.7) k/uL Monocytes # (0-1.0) k/uL ABG pH (7.35-7.45) ABG pCO2 (35-45) mmHg ABG Total CO2 (19-24) mmol/L ABG O2 Saturation (94-97) % Sodium (137-145) mmol/L Potassium 5.4 H (3.5-5.1) mmol/L BUN (9-20) mg/dL Creatinine (0.66-1.25) mg/dL Glucose (74-99) mg/dL POC Glucose (mg/dL) 134 H (70-110) mg/dL Calcium (8.4-10.2) mg/dL Phosphorus 6.4 H (2.5-4.5) mg/dL Total Bilirubin (0.2-1.3) mg/dL AST (17-59) U/L ALT (4-49) U/L Alkaline Phosphatase (38-126) U/L C-Reactive Protein (<1.0) mg/dL Total Protein (6.3-8.2) g/dL Albumin (3.5-5.0) g/dL Triglycerides 245.00 H (0.00-149.00) mg/dL 07/05/22 07/05/22 07/06/22 Range/Units 17:28 21:24 00:05 WBC (3.8-10.6) k/uL RBC (4.30-5.90) m/uL Hgb (13.0-17.5) gm/dL Hct (39.0-53.0) % MCV (80.0-100.0) fL Neutrophils # (1.3-7.7) k/uL Monocytes # (0-1.0) k/uL ABG pH (7.35-7.45) ABG pCO2 (35-45) mmHg ABG Total CO2 (19-24) mmol/L ABG O2 Saturation (94-97) % Sodium (137-145) mmol/L Potassium (3.5-5.1) mmol/L BUN (9-20) mg/dL Creatinine (0.66-1.25) mg/dL Glucose (74-99) mg/dL POC Glucose (mg/dL) 145 H 191 H 219 H (70-110) mg/dL Calcium (8.4-10.2) mg/dL Phosphorus (2.5-4.5) mg/dL Total Bilirubin (0.2-1.3) mg/dL AST (17-59) U/L ALT (4-49) U/L Alkaline Phosphatase (38-126) U/L C-Reactive Protein (<1.0) mg/dL Total Protein (6.3-8.2) g/dL Albumin (3.5-5.0) g/dL Triglycerides (0.00-149.00) mg/dL 07/06/22 07/06/2207/06/22 Range/Units 03:35 03:35 05:46 WBC 17.4 H (3.8-10.6) k/uL RBC 3.20 L (4.30-5.90) m/uL Hgb 10.5 L (13.0-17.5) gm/dL Hct 32.6 L (39.0-53.0) % MCV 101.8 H (80.0-100.0) fL Neutrophils # 12.0 H (1.3-7.7) k/uL Monocytes # 1.7 H (0-1.0) k/uL ABG pH 7.31 L (7.35-7.45) ABG pCO2 47 H (35-45) mmHg ABG Total CO2 25 H (19-24) mmol/L ABG O2 Saturation 97.2 H (94-97) % Sodium 135 L (137-145) mmol/L Potassium (3.5-5.1) mmol/L BUN 78 H (9-20) mg/dL Creatinine 3.19 H (0.66-1.25) mg/dL Glucose 203 H (74-99) mg/dL POC Glucose (mg/dL) (70-110) mg/dL Calcium 8.0 L (8.4-10.2) mg/dL Phosphorus 4.7 H (2.5-4.5) mg/dL Total Bilirubin 2.0 H (0.2-1.3) mg/dL AST 1992 H (17-59) U/L ALT 621 H (4-49) U/L Alkaline Phosphatase 132 H (38-126) U/L C-Reactive Protein 2.3 H (<1.0) mg/dL Total Protein 5.9 L (6.3-8.2) g/dL Albumin 3.3 L (3.5-5.0) g/dL Triglycerides (0.00-149.00) mg/dL 07/06/22 Range/Units 07:01 WBC (3.8-10.6) k/uL RBC (4.30-5.90) m/uL Hgb (13.0-17.5) gm/dL Hct (39.0-53.0) % MCV (80.0-100.0) fL Neutrophils # (1.3-7.7) k/uL Monocytes # (0-1.0) k/uL ABG pH (7.35-7.45) ABG pCO2 (35-45) mmHg ABG Total CO2 (19-24) mmol/L ABG O2 Saturation (94-97) % Sodium (137-145) mmol/L Potassium (3.5-5.1) mmol/L BUN (9-20) mg/dL Creatinine (0.66-1.25) mg/dL Glucose (74-99) mg/dL POC Glucose (mg/dL) 197 H (70-110) mg/dL Calcium (8.4-10.2) mg/dL Phosphorus (2.5-4.5) mg/dL Total Bilirubin (0.2-1.3) mg/dL AST (17-59) U/L ALT (4-49) U/L Alkaline Phosphatase (38-126) U/L C-Reactive Protein (<1.0) mg/dL Total Protein (6.3-8.2) g/dL Albumin (3.5-5.0) g/dL Triglycerides (0.00-149.00) mg/dL Microbiology - Last 24 Hours (Table) 07/04/22 23:20 Sputum Culture - Preliminary Sputum Assessment and Plan Plan: Assessment: 1. Acute kidney injury secondary to septic ATN and hypotension. Urine output 10-15 mL an hour. Baseline creatinine near 1. 2. Hyperkalemia secondary to acute kidney injury. Improved postdialysis. 3. Shock maintained on Levophed. 4. Group B strep bacteremia and ?pneumonia on antibiotics. ID following. 5. Volume overload. 6. Liver cirrhosis. 7. Ascites status post paracentesis on 07/01/2022 to 3.6 L drained. 8. A. fib with RVR maintained on Cardizem drip. 9. Hyperphosphatemia secondary to acute kidney injury. Improved postdialysis. 10. Respiratory and metabolic acidosis. Expect improvement of metabolic acidosis postdialysis. Plan: Second treatment of hemodialysis today. Stop Lasix drip. Hep-Lock IV fluids. Lasix 80 mg IV once now. TPN per surgery. Wean FiO2 and vasopressors. Continue to monitor renal function and urine output. Monitor for renal recovery.
[2022-07-06] MEDS: NICOTINE 14MG/24HR PATCH TRANSDERM SCH (09:26)
[2022-07-06] MEDS: ATORVASTATIN 40 MG TAB PO SCH (09:26)
[2022-07-06] MEDS: SODIUM CHLORIDE 0.9% 1,000 ML IV SCH ×2 (09:26→16:41)
[2022-07-06] MEDS: CHLORHEXIDINE GLUCONATE 15 ML CUP MUCOUS MEM SCH ×2 (09:26→22:13)
[2022-07-06] MEDS: PANTOPRAZOLE 40 MG/10 ML VIAL IVP SCH ×2 (09:26→22:13)
[2022-07-06] MEDS: SIMETHICONE 40 MG/0.6 ML DROPS 2,000 MG/30 ML BOTTLE PO SCH ×4 (09:59→22:14)
[2022-07-06] MEDS: METOPROLOL SUCCINATE (ER) 100 MG TAB.ER.24H PO SCH (10:13)
[2022-07-06] MEDS: ENOXAPARIN 40 MG/0.4 ML SYRINGE SQ SCH (10:21)
--- NOTE | 2022-07-06 10:28 | P.PN ---
Subjective Progress Note Date: 07/05/22 Principal diagnosis: Bacteremia Patient is a 67 year old male presenting to the hospital in mental status changes and multiple falls did have a low-grade fever and elevated white count now with evidence of bacteremia. Patient is status post paracentesis with removal of 3 L of ascitic fluid completed on 06/30/2022 On today's evaluation that is 07/05/2022, the patient did went to respiratory distress and had a getting intubated patient is afebrile patient is currently on 50% FiO2, no significant purulent secretion through the ET diarrhea or any other changes reported by the nursing staff Objective - Vital Signs Vital signs: Vital Signs Temp 98 F 07/05/22 08:00 Pulse 81 07/05/22 11:21 Resp 22 07/05/22 11:00 BP 128/48 07/05/22 06:45 Pulse Ox 96 07/05/22 11:00 FiO2 50 07/05/22 11:03 Intake & Output 07/04/22 07/05/22 07/05/22 18:59 06:59 18:59 Intake Total 200 2472.424 808.050 Output Total 135 80 35 Balance 65 2392.424 773.050 Weight 104.3 kg Intake: IV 200 550 250 Sodium Chloride 0.9% 1, 200 550 250 000 ml @ 50 mls/hr IV . Q20H [facility] Rx#:[id number] Intake, IV Titration 1922.424 558.050 Amount Furosemide 100 mg In 69.833 Sodium Chloride 0.9% 90 ml @ 15 MG/HR 15 mls/hr IV .Q6H40M [facility] Rx#: [id number] Norepinephrine 4 mg In 712.853 458.050 Sodium Chloride 0.9% 250 ml @ 0.05 MCG/KG/MIN 19. 869 mls/hr IV .[id number] [facility] Rx#:[id number] Sodium Chloride 0.9% 1, 1000 000 ml @ 999 mls/hr IV . Q1H1M [facility] Rx#:[id number] propofoL 1,000 mg In 139.738 100.000 Empty Bag 1 bag @ 5 MCG/ KG/MIN 3.129 mls/hr IV . Q24H [facility] Rx#:[id number] Output: Urine 135 80 35 Other: Voiding Method Indwelling Catheter Indwelling Catheter Indwelling Catheter ABP, PAP, CO, CI - Last Documented Arterial Blood Pressure 109/53 - Exam GENERAL DESCRIPTION: An elderly male lying in bed in no distress RESPIRATORY SYSTEM: Unlabored breathing , decreased breath sounds at bases HEART: S1 S2 regular rate and rhythm , ABDOMEN: Soft , no tenderness EXTREMITIES: No edema feet - Labs CBC & Chem 7: 07/06/22 03:35 07/06/22 03:35 Labs: Abnormal Lab Results - Last 24 Hours (Table) 07/04/22 07/04/22 07/04/22 Range/Units 05:45 12:45 16:13 WBC (3.8-10.6) k/uL RBC (4.30-5.90) m/uL Hgb (13.0-17.5) gm/dL Hct (39.0-53.0) % MCV (80.0-100.0) fL MCHC (31.0-37.0) g/dL Neutrophils # (1.3-7.7) k/uL Monocytes # (0-1.0) k/uL ABG pH (7.35-7.45) ABG pCO2 (35-45) mmHg ABG pO2 (83-108) mmHg ABG HCO3 (21-25) mmol/L ABG Total CO2 (19-24) mmol/L ABG O2 Saturation (94-97) % Potassium (3.5-5.1) mmol/L BUN (9-20) mg/dL Creatinine (0.66-1.25) mg/dL Glucose (74-99) mg/dL POC Glucose (mg/dL) 136 H (70-110) mg/dL Magnesium (1.6-2.3) mg/dL Total Bilirubin (0.2-1.3) mg/dL AST (17-59) U/L ALT (4-49) U/L Ammonia 38 H (<30) umol/L Procalcitonin 0.13 H (0.02-0.09) ng/mL 07/04/22 07/04/22 07/05/22 Range/Units 19:37 20:45 04:12 WBC (3.8-10.6) k/uL RBC (4.30-5.90) m/uL Hgb (13.0-17.5) gm/dL Hct (39.0-53.0) % MCV (80.0-100.0) fL MCHC (31.0-37.0) g/dL Neutrophils # (1.3-7.7) k/uL Monocytes # (0-1.0) k/uL ABG pH 7.04 L* 7.12 L* (7.35-7.45) ABG pCO2 97 H* 79 H* (35-45) mmHg ABG pO2 81 L 73 L (83-108) mmHg ABG HCO3 26 H 26 H (21-25) mmol/L ABG Total CO2 29 H 28 H (19-24) mmol/L ABG O2 Saturation (94-97) % Potassium 6.0 H (3.5-5.1) mmol/L BUN 78 H (9-20) mg/dL Creatinine 2.47 H (0.66-1.25) mg/dL Glucose 70 L (74-99) mg/dL POC Glucose (mg/dL) (70-110) mg/dL Magnesium 2.4 H (1.6-2.3) mg/dL Total Bilirubin 2.0 H (0.2-1.3) mg/dL AST 541 H (17-59) U/L ALT 147 H (4-49) U/L Ammonia (<30) umol/L Procalcitonin (0.02-0.09) ng/mL 07/05/22 07/05/22 07/05/22 Range/Units 04:12 05:26 05:42 WBC 25.5 H (3.8-10.6) k/uL RBC 3.35 L (4.30-5.90) m/uL Hgb 11.0 L (13.0-17.5) gm/dL Hct 35.5 L (39.0-53.0) % MCV 106.0 H D (80.0-100.0) fL MCHC 30.9 L (31.0-37.0) g/dL Neutrophils # 21.1 H (1.3-7.7) k/uL Monocytes # 1.7 H (0-1.0) k/uL ABG pH 7.16 L* (7.35-7.45) ABG pCO2 61 H (35-45) mmHg ABG pO2 (83-108) mmHg ABG HCO3 (21-25) mmol/L ABG Total CO2 (19-24) mmol/L ABG O2 Saturation 98.2 H (94-97) % Potassium (3.5-5.1) mmol/L BUN (9-20) mg/dL Creatinine (0.66-1.25) mg/dL Glucose (74-99) mg/dL POC Glucose (mg/dL) 65 L (70-110) mg/dL Magnesium (1.6-2.3) mg/dL Total Bilirubin (0.2-1.3) mg/dL AST (17-59) U/L ALT (4-49) U/L Ammonia (<30) umol/L Procalcitonin (0.02-0.09) ng/mL 07/05/22 07/05/22 07/05/22 Range/Units 06:01 06:34 11:40 WBC (3.8-10.6) k/uL RBC (4.30-5.90) m/uL Hgb (13.0-17.5) gm/dL Hct (39.0-53.0) % MCV (80.0-100.0) fL MCHC (31.0-37.0) g/dL Neutrophils # (1.3-7.7) k/uL Monocytes # (0-1.0) k/uL ABG pH (7.35-7.45) ABG pCO2 (35-45) mmHg ABG pO2 (83-108) mmHg ABG HCO3 (21-25) mmol/L ABG Total CO2 (19-24) mmol/L ABG O2 Saturation (94-97) % Potassium (3.5-5.1) mmol/L BUN (9-20) mg/dL Creatinine (0.66-1.25) mg/dL Glucose (74-99) mg/dL POC Glucose (mg/dL) 129 H 127 H 134 H (70-110) mg/dL Magnesium (1.6-2.3) mg/dL Total Bilirubin (0.2-1.3) mg/dL AST (17-59) U/L ALT (4-49) U/L Ammonia (<30) umol/L Procalcitonin (0.02-0.09) ng/mL Microbiology - Last 24 Hours (Table) 07/04/22 23:20 Sputum Culture - Preliminary Sputum 06/29/22 15:12 Gram Stain - Final Ascites Fluid Body Fluid Culture - Final Assessment and Plan (1) Bacteremia Current Visit: Yes Status: Acute Code(s): R78.81 - BACTEREMIA SNOMED Code(s): 0696500 Plan: 1patient with sepsis in this patient who did have a fever elevated white count elevated lactic acid now with evidence of gram-positive bacteremia with a source possible aspiration pneumonia as repeat x-ray did showed increasing density left lower lobe as the patient currently do not have any other obvious focus is abdominal soft on clinical examination no evidence of any joint swelling or cellulitis was noticed. 2blood cultures has been finalized as Streptococcus agalactiae repeat blood cultures have been negative so far 3-repeat CT with evidence of ascites and possible colitis in the left lower quadrant area, patient is status post paracentesis, white count was only 59 and cultures are so far negative 4- Patient with worsening respiratory status requiring intubation possible fluid overload plus minus a component of pneumonia questionable aspiration sputum culture has been obtained we will broaden antibiotics to Zosyn and monitor clinical course closely prognosis guarded family at the bedside questions answered Time with Patient: Less than 30
[2022-07-06 11:28] LABS: Glucose,Whole Blood 164 mg/dL (70-110)
--- NOTE | 2022-07-06 12:02 | P.PN ---
Subjective Progress Note Date: 07/06/22 Principal diagnosis: Acute kidney injury Patient was seen and examined today in the ICU. He remains intubated and sedated. Yesterday vascular surgery was consulted for hemodialysis access. Patient underwent temporary left femoral HD catheter placement. He underwent hemodialysis yesterday with 1 L removed. He is scheduled today. Nursing reports no difficulty. Objective - Vital Signs Vital signs: Vital Signs Temp 98.8 F 07/06/22 04:00 Pulse 88 07/06/22 07:52 Resp 22 07/06/22 07:30 BP 128/48 07/06/22 07:30 Pulse Ox 97 07/06/22 07:30 FiO2 20 07/06/22 07:14 Intake & Output 07/05/22 07/06/22 07/06/22 18:59 06:59 18:59 Intake Total 5593.252 5253.496 95 Output Total 1080 160 12 Balance 265.722 4819.496 83 Weight 104.3 kg Intake: IV 600 855 95 Furosemide 100 mg In 135 15 Sodium Chloride 0.9% 90 ml @ 15 MG/HR 15 mls/hr IV .Q6H40M [facility] Rx#: [id number] Mvi, Adult No.4 with Vit 270 30 K 10 ml Trace (Conc-1Ml/ Dose) 1 ml Sodium Acetate 16 meq Sodium Chloride 4Meq/ml Vial 16 meq Calcium Gluconate 1 gm In Amino Acid 5%-D15w 1,000 ml @ 30 mls/hr IV .Q24H [facility] Rx#:[id number] Piperacillin-Tazobactam 3 100 .375 gm In Sodium Chloride 0.9% 100 ml @ 25 mls/hr IVPB Q8HR [facility] Rx# :[id number] Sodium Chloride 0.9% 1, 600 350 50 000 ml @ 50 mls/hr IV . Q20H [facility] Rx#:[id number] Intake, IV Titration 957.190 545.496 Amount Furosemide 100 mg In 88.5 197.5 Sodium Chloride 0.9% 90 ml @ 15 MG/HR 15 mls/hr IV .Q6H40M [facility] Rx#: [id number] Mvi, Adult No.4 with Vit 30 K 10 ml Trace (Conc-1Ml/ Dose) 1 ml Sodium Acetate 16 meq Sodium Chloride 4Meq/ml Vial 16 meq Calcium Gluconate 1 gm In Amino Acid 5%-D15w 1,000 ml @ 30 mls/hr IV .Q24H [facility] Rx#:[id number] Norepinephrine 32 mg In 113.082 147.996 Sodium Chloride 0.9% 218 ml @ 0.05 MCG/KG/MIN 2. 445 mls/hr IV .Q24H [facility] Rx#:[id number] Norepinephrine 4 mg In 458.050 Sodium Chloride 0.9% 250 ml @ 0.05 MCG/KG/MIN 19. 869 mls/hr IV .[id number] [facility] Rx#:[id number] propofoL 1,000 mg In 267.558 200.000 Empty Bag 1 bag @ 5 MCG/ KG/MIN 3.129 mls/hr IV . Q24H [facility] Rx#:[id number] Output: Urine 80 160 12 Hemodialysis 1000 Other: Voiding Method Indwelling Catheter Indwelling Catheter ABP, PAP, CO, CI - Last Documented Arterial Blood Pressure 112/43 - Exam General appearance: The patient is sedated and intubated. HET: Head is normocephalic and atraumatic. Neck: Supple without lymphadenopathy. Trachea midline. Heart: S1 S2. Regular rate and rhythm. Lungs: Crackles at bases. Abdomen: Soft, nondistended. Mildly distended. Extremities: Bilateral lower extremity edema. Left groin with HD catheter in place with dressing. Neurological: Sedated and intubated. - Labs CBC & Chem 7: 07/06/22 03:35 07/06/22 03:35 Labs: Abnormal Lab Results - Last 24 Hours (Table) 07/05/22 07/05/22 07/05/22 Range/Units 11:40 14:05 14:05 WBC (3.8-10.6) k/uL RBC (4.30-5.90) m/uL Hgb (13.0-17.5) gm/dL Hct (39.0-53.0) % MCV (80.0-100.0) fL Neutrophils # (1.3-7.7) k/uL Monocytes # (0-1.0) k/uL ABG pH (7.35-7.45) ABG pCO2 (35-45) mmHg ABG Total CO2 (19-24) mmol/L ABG O2 Saturation (94-97) % Sodium (137-145) mmol/L Potassium 5.4 H (3.5-5.1) mmol/L BUN (9-20) mg/dL Creatinine (0.66-1.25) mg/dL Glucose (74-99) mg/dL POC Glucose (mg/dL) 134 H (70-110) mg/dL Calcium (8.4-10.2) mg/dL Phosphorus 6.4 H (2.5-4.5) mg/dL Total Bilirubin (0.2-1.3) mg/dL AST (17-59) U/L ALT (4-49) U/L Alkaline Phosphatase (38-126) U/L C-Reactive Protein (<1.0) mg/dL Total Protein (6.3-8.2) g/dL Albumin (3.5-5.0) g/dL Triglycerides 245.00 H (0.00-149.00) mg/dL 07/05/22 07/05/22 07/06/22 Range/Units 17:28 21:24 00:05 WBC (3.8-10.6) k/uL RBC (4.30-5.90) m/uL Hgb (13.0-17.5) gm/dL Hct (39.0-53.0) % MCV (80.0-100.0) fL Neutrophils # (1.3-7.7) k/uL Monocytes # (0-1.0) k/uL ABG pH (7.35-7.45) ABG pCO2 (35-45) mmHg ABG Total CO2 (19-24) mmol/L ABG O2 Saturation (94-97) % Sodium (137-145) mmol/L Potassium (3.5-5.1) mmol/L BUN (9-20) mg/dL Creatinine (0.66-1.25) mg/dL Glucose (74-99) mg/dL POC Glucose (mg/dL) 145 H 191 H 219 H (70-110) mg/dL Calcium (8.4-10.2) mg/dL Phosphorus (2.5-4.5) mg/dL Total Bilirubin (0.2-1.3) mg/dL AST (17-59) U/L ALT (4-49) U/L Alkaline Phosphatase (38-126) U/L C-Reactive Protein (<1.0) mg/dL Total Protein (6.3-8.2) g/dL Albumin (3.5-5.0) g/dL Triglycerides (0.00-149.00) mg/dL 07/06/22 07/06/22 07/06/22 Range/Units 03:35 03:35 05:46 WBC 17.4 H (3.8-10.6) k/uL RBC 3.20 L (4.30-5.90) m/uL Hgb 10.5 L (13.0-17.5) gm/dL Hct 32.6 L (39.0-53.0) % MCV 101.8 H (80.0-100.0) fL Neutrophils # 12.0 H (1.3-7.7) k/uL Monocytes # 1.7 H (0-1.0) k/uL ABG pH 7.31 L (7.35-7.45) ABG pCO2 47 H (35-45) mmHg ABG Total CO2 25 H (19-24) mmol/L ABG O2 Saturation 97.2 H (94-97) % Sodium 135 L (137-145) mmol/L Potassium (3.5-5.1) mmol/L BUN 78 H (9-20) mg/dL Creatinine 3.19 H (0.66-1.25) mg/dL Glucose 203 H (74-99) mg/dL POC Glucose (mg/dL) (70-110) mg/dL Calcium 8.0 L (8.4-10.2) mg/dL Phosphorus 4.7 H (2.5-4.5) mg/dL Total Bilirubin 2.0 H (0.2-1.3) mg/dL AST 1992 H (17-59) U/L ALT 621 H (4-49) U/L Alkaline Phosphatase 132 H (38-126) U/L C-Reactive Protein 2.3 H (<1.0) mg/dL Total Protein 5.9 L (6.3-8.2) g/dL Albumin 3.3 L (3.5-5.0) g/dL Triglycerides (0.00-149.00) mg/dL 07/06/22 Range/Units 07:01 WBC (3.8-10.6) k/uL RBC (4.30-5.90) m/uL Hgb (13.0-17.5) gm/dL Hct (39.0-53.0) % MCV (80.0-100.0) fL Neutrophils # (1.3-7.7) k/uL Monocytes # (0-1.0) k/uL ABG pH (7.35-7.45) ABG pCO2 (35-45) mmHg ABG Total CO2 (19-24) mmol/L ABG O2 Saturation (94-97) % Sodium (137-145) mmol/L Potassium (3.5-5.1) mmol/L BUN (9-20) mg/dL Creatinine (0.66-1.25) mg/dL Glucose (74-99) mg/dL POC Glucose (mg/dL) 197 H (70-110) mg/dL Calcium (8.4-10.2) mg/dL Phosphorus (2.5-4.5) mg/dL Total Bilirubin (0.2-1.3) mg/dL AST (17-59) U/L ALT (4-49) U/L Alkaline Phosphatase (38-126) U/L C-Reactive Protein (<1.0) mg/dL Total Protein (6.3-8.2) g/dL Albumin (3.5-5.0) g/dL Triglycerides (0.00-149.00) mg/dL Microbiology - Last 24 Hours (Table) 07/04/22 23:20 Gram Stain - Preliminary Sputum Sputum Culture - Preliminary Assessment and Plan Assessment: 1. Acute kidney injury requiring hemodialysis 2. Hyperkalemia 3. Acute hypoxic respiratory failure 4. Bacteremia Plan: Continue with hemodialysis per recommendations from nephrology. Thank you for this consultation, we will be on standby if further needed. The impression and plan of care has been dictated as directed. Dr. Russo I performed a history and examination of this patient, discussed the same with the dictator. I agree with the dictator's note ,documented as a scribe. Any additional findings or plans will be noted.[id number]
--- NOTE | 2022-07-06 12:29 | P.PN ---
Subjective Progress Note Date: 07/06/22 Principal diagnosis: Acute hypoxic and acute hypercapnic respiratory failure, acute metabolic encephalopathy, gram-positive sepsis On 06/24/2022 patient seen in follow-up in the intensive care unit. Patient is sedated, currently on Precedex at 0.5 mics per kilo per hour. He is on Precedex at 5 mg per hour. Lactated Ringer's at 75 ML per hour, remains sedated, very confused. No signs of any respiratory distress, he is on 4 L of oxygen per nasal cannula with pulse ox of 95%, his been afebrile, in sinus mechanism, rate is 79 BPM. His blood pressure is better controlled with Cleviprex infusion. It is currently 141/75. MRI of the brain was completed last night showing no evidence of a recent infarct, mild diffuse age-related cerebral atrophy and chronic small vessel ischemic changes. No abnormal enhancement was noted. Today's labs have been reviewed, white blood cell count is 20.0, hemoglobin is 12.7, INR is 1.4, sodium is 134, potassium is 4.8, chloride is 109, BUN is 65 creatinine 0.76. Last night's blood gas was also reviewed showing pO2 of 72, pCO2 of 32, and pH of 7.48. This was done on FiO2 of 32%. CTA chest a few days ago showed no evidence of pulmonary embolism, showed interstitial infiltrate and atelectasis, no suspicious pulmonary mass. EEG showed no focal slowing, epileptiform discharge or seizure. Echocardiogram showed EF of 60-65%. Blood culture showed strep agalactiae, group B. Follow-up blood cultures have shown no growth thus far. ID service is following, patient remains on cefazolin 2 g every 8 hours. Last night patient developed GI bleeding, and passed of a very large maroon-colored stool. Today's hemoglobin is 12.7 which is down from 14 from yesterday, platelet count is 141, INR is 1.4. GI service has been consulted for evaluation. 07/03/2022, abdomen is still distended. The patient was having liquidy stool yesterday and this has subsided on today. He is passing some gas. There is positive tympany and there is probably an underlying ileus. No significant pain. Currently is back in bed. He is on oxygen on 5 L per minute nasal cannula. Labs are still pending for now. There was a concern of an elevated creatinine was up to 2.2 from yesterday and this is to be repeated. BUN is at 78 from yesterday. He is afebrile. He is hemodynamically stable. The patient remains on IV Unasyn. In terms of laxatives, these are all on hold for now. Ascitic fluid the ascitic fluid cultures are still negative. Reevaluated today on 07/04/22, patient is quite lethargic, I saw him on the regular medical floor, patient is on BiPAP with IPAP of 12 EPAP of 6 and 60% FiO2. ABG showed a pO2 of 76 pCO2 of 91 pH of 7.11, hence I recommended transferring the patient to ICU. Patient continues to have leukocytosis with WBC of 18.9 hemoglobin is 9.7. Renal functioning remains abnormal with a BUN of 70 creatinine 1.6. Blood sugar is 142. Blood cultures were positive for strep agalactiae group B, his fluid cultures from the abdomen remain negative so far. Family is at bedside, patient is quite lethargic, hence I recommended transferring the patient to the ICU. Abdominal ultrasound showed mild abdominal ascites, chest x-ray continues to show interstitial infiltrates especially at the left base, consistent with atypical pulmonary edema, doubt pneumonia although aspiration pneumonia could also be considered. Patient remains on Unasyn. Patient is also on Lasix 40 mg IV push twice a day. Reevaluated today on 07/05/2022, patient had a deterioration in his clinical status yesterday after he was transferred to the ICU, and early evening, his condition continued to deteriorate, patient did not seem to improve with BiPAP, and his ABG seems to be not improving. Continue to remain more lethargic hence, around 10 PM I recommended intubation and mechanical ventilation. Today the patient is mechanically ventilated. He is on assist control rate of 22 total volume 500 FiO2 50% and PEEP of 5. His ABG earlier on assist control rate of 16 showed a pO2 of 101 pCO2 of 61 pH of 7.16. Patient developed significant oligoria, and I had to place the patient on Lasix now he is on 15 mg per hour, he was on 10 mg overnight. He is also requiring norepinephrine at 0.36 mcg/kg/m. Propofol at 40 mcg/kg/m. Remains on antibiotics in the form of Unasyn. IV fluid is at 50 mL per hour and cutting down to KVO since the chest x-ray is showing evidence of pulmonary edema. Patient remains oliguric and he was seen by nephrology today, the patient may be heading to possible hemodialysis. His urine output at present is 5-10 mL per hour in spite of Lasix drip. His liver enzymes are getting worse. His leukocytosis is getting worse. And I went ahead today and placed a right femoral triple-lumen catheter for norepinephrine infusion. WBC count today is 25.5, hemoglobin is 11, BUN is 78 creatinine 2.47. Liver enzymes are elevated with elevated total bilirubin of 2.0 AST of 541 AST of 147, ammonia level yesterday was 38. Chest x-ray today is showing evidence of pulmonary edema, underlying pneumonia is not entirely excluded. Reevaluated today on 07/06/22, remains in the ICU, intubated and mechanically ventilated. Patient is on assist control rate of 22 total volume 500 FiO2 50% and PEEP of 5. Patient underwent renal replacement therapy yesterday, and he tolerated that quite well. His ABG today showed a pO2 of 87 pCO2 47 pH of 7.31. And his FiO2 was cut down to 45%. Rate was increased to 24. Patient remains on multiple drips including Cardizem at 10 mg per hour, norepinephrine at 0.34 propofol at 50 mcg/kg/m and he is on saline at 50 mL per hour. Patient is not responsive to any stimuli, however the patient will be off propofol today, and we will assess mental status. Patient has been encephalopathic all along since admission. And I recommended cutting down Cardizem to 5 mg per hour. Chest x- ray is showing improvement in his pulmonary edema, WBC count of 17.4 hemoglobin is 10.5. Basic metabolic profile is normal except for BUN of 78 creatinine 3.19, and his urine output is very poor patient is relatively oligoric liver enzymes are elevated, pro-calcitonin is also elevated. Objective - Vital Signs Vital signs: Vital Signs Temp 97.7 F 07/06/22 12:00 Pulse 96 07/06/22 12:00 Resp 24 07/06/22 12:00 BP 128/48 07/06/22 11:00 Pulse Ox 100 07/06/22 12:00 FiO2 45 07/06/22 11:05 Intake & Output 07/05/22 07/06/22 07/06/22 18:59 06:59 18:59 Intake Total 7729.158 6098.496 663.857 Output Total 1080 160 103 Balance 507.302 4598.496 560.857 Weight 104.3 kg Intake: IV 600 855 365 Furosemide 100 mg In 135 15 Sodium Chloride 0.9% 90 ml @ 15 MG/HR 15 mls/hr IV .Q6H40M [facility] Rx#: [id number] Mvi, Adult No.4 with Vit 270 150 K 10 ml Trace (Conc-1Ml/ Dose) 1 ml Sodium Acetate 16 meq Sodium Chloride 4Meq/ml Vial 16 meq Calcium Gluconate 1 gm In Amino Acid 5%-D15w 1,000 ml @ 30 mls/hr IV .Q24H [facility] Rx#:[id number] Piperacillin-Tazobactam 3 100 100 .375 gm In Sodium Chloride 0.9% 100 ml @ 25 mls/hr IVPB Q8HR [facility] Rx# :[id number] Sodium Chloride 0.9% 1, 600 350 100 000 ml @ 50 mls/hr IV . Q20H [facility] Rx#:[id number] Intake, IV Titration 957.190 545.496 198.857 Amount Diltiazem 125 mg In 25 Sodium Chloride 0.9% 100 ml @ 5 MG/HR 5 mls/hr IV .Q24H [facility] Rx#:[id number] Furosemide 100 mg In 88.5 197.5 Sodium Chloride 0.9% 90 ml @ 15 MG/HR 15 mls/hr IV .Q6H40M [facility] Rx#: [id number] Mvi, Adult No.4 with Vit 30 K 10 ml Trace (Conc-1Ml/ Dose) 1 ml Sodium Acetate 16 meq Sodium Chloride 4Meq/ml Vial 16 meq Calcium Gluconate 1 gm In Amino Acid 5%-D15w 1,000 ml @ 30 mls/hr IV .Q24H [facility] Rx#:[id number] Norepinephrine 32 mg In 113.082 147.996 73.857 Sodium Chloride 0.9% 218 ml @ 0.05 MCG/KG/MIN 2. 445 mls/hr IV .Q24H [facility] Rx#:[id number] Norepinephrine 4 mg In 458.050 Sodium Chloride 0.9% 250 ml @ 0.05 MCG/KG/MIN 19. 869 mls/hr IV .[id number] [facility] Rx#:[id number] propofoL 1,000 mg In 267.558 200.000 100 Empty Bag 1 bag @ 5 MCG/ KG/MIN 3.129 mls/hr IV . Q24H [facility] Rx#:[id number] Other 100 Output: Urine 80 160 103 Hemodialysis 1000 Other: Voiding Method Indwelling Catheter Indwelling Catheter Indwelling Catheter ABP, PAP, CO, CI - Last Documented Arterial Blood Pressure 135/53 - Exam GENERAL EXAM: 67-year-old white male, intubated and mechanically ventilated. Sedated, on propofol at 50 mg/kg/m HEAD: Normocephalic/atraumatic. Endotracheal tube and orogastric tube are intact. HEENT: PERRLA, EOMI, anicteric, neck masses, no JVD. CHEST: No chest wall deformity. Symmetrical expansion. LUNGS: Scattered rhonchi bilaterally no wheezing. CVS: Regular rate and rhythm, normal S1 and S2, no gallops, no murmurs, no rubs ABDOMEN: Slightly distended, soft nontender, positive ascites. EXTREMITIES: No clubbing, no edema, no cyanosis, 2+ pulses and upper and lower extremities. SKIN: No rashes CENTRAL NERVOUS SYSTEM: Cannot assess, patient is fully sedated. Psychiatric: Cannot assess patient is fully sedated - Labs CBC & Chem 7: 07/06/22 03:35 07/06/22 03:35 Labs: Abnormal Lab Results - Last 24 Hours (Table) 07/05/22 07/05/22 07/05/22 Range/Units 14:05 14:05 17:28 WBC (3.8-10.6) k/uL RBC (4.30-5.90) m/uL Hgb (13.0-17.5) gm/dL Hct (39.0-53.0) % MCV (80.0-100.0) fL Neutrophils # (1.3-7.7) k/uL Monocytes # (0-1.0) k/uL ABG pH (7.35-7.45) ABG pCO2 (35-45) mmHg ABG Total CO2 (19-24) mmol/L ABG O2 Saturation (94-97) % Sodium (137-145) mmol/L Potassium 5.4 H (3.5-5.1) mmol/L BUN (9-20) mg/dL Creatinine (0.66-1.25) mg/dL Glucose (74-99) mg/dL POC Glucose (mg/dL) 145 H (70-110) mg/dL Calcium (8.4-10.2) mg/dL Phosphorus 6.4 H (2.5-4.5) mg/dL Total Bilirubin (0.2-1.3) mg/dL AST (17-59) U/L ALT (4-49) U/L Alkaline Phosphatase (38-126) U/L C-Reactive Protein (<1.0) mg/dL Total Protein (6.3-8.2) g/dL Albumin (3.5-5.0) g/dL Triglycerides 245.00 H (0.00-149.00) mg/dL Procalcitonin (0.02-0.09) ng/mL 07/05/22 07/06/22 07/06/22 Range/Units 21:24 00:05 03:35 WBC (3.8-10.6) k/uL RBC (4.30-5.90) m/uL Hgb (13.0-17.5) gm/dL Hct (39.0-53.0) % MCV (80.0-100.0) fL Neutrophils # (1.3-7.7) k/uL Monocytes # (0-1.0) k/uL ABG pH (7.35-7.45) ABG pCO2 (35-45) mmHg ABG Total CO2 (19-24) mmol/L ABG O2 Saturation (94-97) % Sodium (137-145) mmol/L Potassium (3.5-5.1) mmol/L BUN (9-20) mg/dL Creatinine (0.66-1.25) mg/dL Glucose (74-99) mg/dL POC Glucose (mg/dL) 191 H 219 H (70-110) mg/dL Calcium (8.4-10.2) mg/dL Phosphorus (2.5-4.5) mg/dL Total Bilirubin (0.2-1.3) mg/dL AST (17-59) U/L ALT (4-49) U/L Alkaline Phosphatase (38-126) U/L C-Reactive Protein (<1.0) mg/dL Total Protein (6.3-8.2) g/dL Albumin (3.5-5.0) g/dL Triglycerides (0.00-149.00) mg/dL Procalcitonin 0.50 H (0.02-0.09) ng/mL 07/06/22 07/06/22 07/06/22 Range/Units 03:35 03:35 05:46 WBC 17.4 H (3.8-10.6) k/uL RBC 3.20 L (4.30-5.90) m/uL Hgb 10.5 L (13.0-17.5) gm/dL Hct 32.6 L (39.0-53.0) % MCV 101.8 H (80.0-100.0) fL Neutrophils # 12.0 H (1.3-7.7) k/uL Monocytes # 1.7 H (0-1.0) k/uL ABG pH 7.31 L (7.35-7.45) ABG pCO2 47 H (35-45) mmHg ABG Total CO2 25 H (19-24) mmol/L ABG O2 Saturation 97.2 H (94-97) % Sodium 135 L (137-145) mmol/L Potassium (3.5-5.1) mmol/L BUN 78 H (9-20) mg/dL Creatinine 3.19 H (0.66-1.25) mg/dL Glucose 203 H (74-99) mg/dL POC Glucose (mg/dL) (70-110) mg/dL Calcium 8.0 L (8.4-10.2) mg/dL Phosphorus 4.7 H (2.5-4.5) mg/dL Total Bilirubin 2.0 H (0.2-1.3) mg/dL AST 1992 H (17-59) U/L ALT 621 H (4-49) U/L Alkaline Phosphatase 132 H (38-126) U/L C-Reactive Protein 2.3 H (<1.0) mg/dL Total Protein 5.9 L (6.3-8.2) g/dL Albumin 3.3 L (3.5-5.0) g/dL Triglycerides (0.00-149.00) mg/dL Procalcitonin (0.02-0.09) ng/mL 07/06/22 07/06/22 Range/Units 07:01 11:26 WBC (3.8-10.6) k/uL RBC (4.30-5.90) m/uL Hgb (13.0-17.5) gm/dL Hct (39.0-53.0) % MCV (80.0-100.0) fL Neutrophils # (1.3-7.7) k/uL Monocytes # (0-1.0) k/uL ABG pH (7.35-7.45) ABG pCO2 (35-45) mmHg ABG Total CO2 (19-24) mmol/L ABG O2 Saturation (94-97) % Sodium (137-145) mmol/L Potassium (3.5-5.1) mmol/L BUN (9-20) mg/dL Creatinine (0.66-1.25) mg/dL Glucose (74-99) mg/dL POC Glucose (mg/dL) 197 H 164 H (70-110) mg/dL Calcium (8.4-10.2) mg/dL Phosphorus (2.5-4.5) mg/dL Total Bilirubin (0.2-1.3) mg/dL AST (17-59) U/L ALT (4-49) U/L Alkaline Phosphatase (38-126) U/L C-Reactive Protein (<1.0) mg/dL Total Protein (6.3-8.2) g/dL Albumin (3.5-5.0) g/dL Triglycerides (0.00-149.00) mg/dL Procalcitonin (0.02-0.09) ng/mL Microbiology - Last 24 Hours (Table) 07/04/22 23:20 Gram Stain - Preliminary Sputum Sputum Culture - Preliminary Yeast species Assessment and Plan Assessment: Impression: gram-positive bacteremia, exact source remains unclear. Acute hypoxic and hypercapnic respiratory failure requiring BiPAP. Patient failed BiPAP, and he was intubated on 07/04/2022 Ascites, status post paracentesis, cultures are negative Acute ileus. Acute metabolic encephalopathy secondary to CO2 narcosis. Acute GI bleeding, presently inactive. Acute kidney injury secondary to sepsis. This is associated with oliguria. Multiple falls at home. History of opiate dependence History of underlying COPD/chronic bronchial asthma, unspecified. Chronic back pain. Generalized anxiety disorder. Status post paracentesis on 06/30/2022, 3.6 L removed. Recommendation: Continue ventilatory support Continue hemodynamic support and titrate the norepinephrine accordingly. Presently on 0.34 mcg/kg/m Continue antibiotics. Patient is on Zosyn. Continue hemodialysis Monitor in the ICU. Continue TPN GI and DVT prophylaxis. Patient remains critically ill. Plan to have sedation interruption today, and assessment of mental status. Prognosis is extremely guarded. Critical care time is over 30 minutes. Time with Patient: Greater than 30
--- NOTE | 2022-07-06 12:40 | P.PN ---
Subjective Progress Note Date: 07/06/22 CHIEF COMPLAINT: Abdominal distention HISTORY OF PRESENT ILLNESS: Patient in the ICU. Patient remains intubated and sedated. Patient did have a watery bowel movements. OG tube with 100 mL bile output. He was started on hemodialysis yesterday and is receiving hemodialysis this morning. Afebrile. WBC did trend down from 25-17. Hgb 10.5 platelets 167 sodium 135 potassium 4.4 creatinine 3.19 total bilirubin 2.0 AST 1992 ALT 621 alk phos 138 Patient remains on Cardizem drip and norepinephrine. Patient started on TPN yesterday. PHYSICAL EXAM: VITAL SIGNS: Reviewed GENERAL: Patient is intubated HEENT: No sclera icterus.Moist buccal mucosa. Head is atraumatic, normocephalic. NECK: Supple without lymphadenopathy. CHEST: Non-labored respirations and equal bilateral excursions. CARDIOVASCULAR: Palpable 2+ radial pulses. ABDOMEN: Soft. distended MUSCULOSKELETAL: No clubbing or cyanosis. NEUROLOGIC: Intubated and sedated SKIN: Well perfused. Good skin turgor. ASSESSMENT: 1. Duodenitis and jejunitis 2. Enteritis 3. Gastritis 4. Cirrhosis with abdominal ascites 5. Leukocytosis 6. Ileus 7. GI bleed resolved 8. Acute respiratory failure 9. Acute kidney injury PLAN: -Continue ICU management -Continue supportive care -Continue TPN for nutrition support Physician Facilities Maintenance Supervisor note has been reviewed by physician. Signing provider agrees with the documented findings, assessment, and plan of care. Objective - Vital Signs Vital signs: Vital Signs Temp 97.7 F 07/06/22 12:00 Pulse 97 07/06/22 12:00 Resp 24 07/06/22 12:00 BP 128/48 07/06/22 11:00 Pulse Ox 100 07/06/22 12:00 FiO2 45 07/06/22 12:00 Intake & Output 07/05/22 07/06/22 07/06/22 18:59 06:59 18:59 Intake Total 2686.500 0012.496 663.857 Output Total 1080 160 103 Balance 204.762 9219.496 560.857 Weight 104.3 kg Intake: IV 600 855 365 Furosemide 100 mg In 135 15 Sodium Chloride 0.9% 90 ml @ 15 MG/HR 15 mls/hr IV .Q6H40M [facility] Rx#: [id number] Mvi, Adult No.4 with Vit 270 150 K 10 ml Trace (Conc-1Ml/ Dose) 1 ml Sodium Acetate 16 meq Sodium Chloride 4Meq/ml Vial 16 meq Calcium Gluconate 1 gm In Amino Acid 5%-D15w 1,000 ml @ 30 mls/hr IV .Q24H [facility] Rx#:[id number] Piperacillin-Tazobactam 3 100 100 .375 gm In Sodium Chloride 0.9% 100 ml @ 25 mls/hr IVPB Q8HR [facility] Rx# :[id number] Sodium Chloride 0.9% 1, 600 350 100 000 ml @ 50 mls/hr IV . Q20H [facility] Rx#:[id number] Intake, IV Titration 957.190 545.496 198.857 Amount Diltiazem 125 mg In 25 Sodium Chloride 0.9% 100 ml @ 5 MG/HR 5 mls/hr IV .Q24H [facility] Rx#:[id number] Furosemide 100 mg In 88.5 197.5 Sodium Chloride 0.9% 90 ml @ 15 MG/HR 15 mls/hr IV .Q6H40M [facility] Rx#: [id number] Mvi, Adult No.4 with Vit 30 K 10 ml Trace (Conc-1Ml/ Dose) 1 ml Sodium Acetate 16 meq Sodium Chloride 4Meq/ml Vial 16 meq Calcium Gluconate 1 gm In Amino Acid 5%-D15w 1,000 ml @ 30 mls/hr IV .Q24H [facility] Rx#:[id number] Norepinephrine 32 mg In 113.082 147.996 73.857 Sodium Chloride 0.9% 218 ml @ 0.05 MCG/KG/MIN 2. 445 mls/hr IV .Q24H [facility] Rx#:[id number] Norepinephrine 4 mg In 458.050 Sodium Chloride 0.9% 250 ml @ 0.05 MCG/KG/MIN 19. 869 mls/hr IV .[id number] [facility] Rx#:[id number] propofoL 1,000 mg In 267.558 200.000 100 Empty Bag 1 bag @ 5 MCG/ KG/MIN 3.129 mls/hr IV . Q24H [facility] Rx#:[id number] Other 100 Output: Urine 80 160 103 Hemodialysis 1000 Other: Voiding Method Indwelling Catheter Indwelling Catheter Indwelling Catheter ABP, PAP, CO, CI - Last Documented Arterial Blood Pressure 135/53 - Labs CBC & Chem 7: 07/06/22 03:35 07/06/22 03:35 Labs: Abnormal Lab Results - Last 24 Hours (Table) 07/05/22 07/05/22 07/05/22 Range/Units 14:05 14:05 17:28 WBC (3.8-10.6) k/uL RBC (4.30-5.90) m/uL Hgb (13.0-17.5) gm/dL Hct (39.0-53.0) % MCV (80.0-100.0) fL Neutrophils # (1.3-7.7) k/uL Monocytes # (0-1.0) k/uL ABG pH (7.35-7.45) ABG pCO2 (35-45) mmHg ABG Total CO2 (19-24) mmol/L ABG O2 Saturation (94-97) % Sodium (137-145) mmol/L Potassium 5.4 H (3.5-5.1) mmol/L BUN (9-20) mg/dL Creatinine (0.66-1.25) mg/dL Glucose (74-99) mg/dL POC Glucose (mg/dL) 145 H (70-110) mg/dL Calcium (8.4-10.2) mg/dL Phosphorus 6.4 H (2.5-4.5) mg/dL Total Bilirubin (0.2-1.3) mg/dL AST (17-59) U/L ALT (4-49) U/L Alkaline Phosphatase (38-126) U/L C-Reactive Protein (<1.0) mg/dL Total Protein (6.3-8.2) g/dL Albumin (3.5-5.0) g/dL Triglycerides 245.00 H (0.00-149.00) mg/dL Procalcitonin (0.02-0.09) ng/mL 07/05/22 07/06/22 07/06/22 Range/Units 21:24 00:05 03:35 WBC (3.8-10.6) k/uL RBC (4.30-5.90) m/uL Hgb (13.0-17.5) gm/dL Hct (39.0-53.0) % MCV (80.0-100.0) fL Neutrophils # (1.3-7.7) k/uL Monocytes # (0-1.0) k/uL ABG pH (7.35-7.45) ABG pCO2 (35-45) mmHg ABG Total CO2 (19-24) mmol/L ABG O2 Saturation (94-97) % Sodium (137-145) mmol/L Potassium (3.5-5.1) mmol/L BUN (9-20) mg/dL Creatinine (0.66-1.25) mg/dL Glucose (74-99) mg/dL POC Glucose (mg/dL) 191 H 219 H (70-110) mg/dL Calcium (8.4-10.2) mg/dL Phosphorus (2.5-4.5) mg/dL Total Bilirubin (0.2-1.3) mg/dL AST (17-59) U/L ALT (4-49) U/L Alkaline Phosphatase (38-126) U/L C-Reactive Protein (<1.0) mg/dL Total Protein (6.3-8.2) g/dL Albumin (3.5-5.0) g/dL Triglycerides (0.00-149.00) mg/dL Procalcitonin 0.50 H (0.02-0.09) ng/mL 07/06/22 07/06/22 07/06/22 Range/Units 03:35 03:35 05:46 WBC 17.4 H (3.8-10.6) k/uL RBC 3.20 L (4.30-5.90) m/uL Hgb 10.5 L (13.0-17.5) gm/dL Hct 32.6 L (39.0-53.0) % MCV 101.8 H (80.0-100.0) fL Neutrophils # 12.0 H (1.3-7.7) k/uL Monocytes # 1.7 H (0-1.0) k/uL ABG pH 7.31 L (7.35-7.45) ABG pCO2 47 H (35-45) mmHg ABG Total CO2 25 H (19-24) mmol/L ABG O2 Saturation 97.2 H (94-97) % Sodium 135 L (137-145) mmol/L Potassium (3.5-5.1) mmol/L BUN 78 H (9-20) mg/dL Creatinine 3.19 H (0.66-1.25) mg/dL Glucose 203 H (74-99) mg/dL POC Glucose (mg/dL) (70-110) mg/dL Calcium 8.0 L (8.4-10.2) mg/dL Phosphorus 4.7 H (2.5-4.5) mg/dL Total Bilirubin 2.0 H (0.2-1.3) mg/dL AST 1992 H (17-59) U/L ALT 621 H (4-49) U/L Alkaline Phosphatase 132 H (38-126) U/L C-Reactive Protein 2.3 H (<1.0) mg/dL Total Protein 5.9 L (6.3-8.2) g/dL Albumin 3.3 L (3.5-5.0) g/dL Triglycerides (0.00-149.00) mg/dL Procalcitonin (0.02-0.09) ng/mL 07/06/22 07/06/22 Range/Units 07:01 11:26 WBC (3.8-10.6) k/uL RBC (4.30-5.90) m/uL Hgb (13.0-17.5) gm/dL Hct (39.0-53.0) % MCV (80.0-100.0) fL Neutrophils # (1.3-7.7) k/uL Monocytes # (0-1.0) k/uL ABG pH (7.35-7.45) ABG pCO2 (35-45) mmHg ABG Total CO2 (19-24) mmol/L ABG O2 Saturation (94-97) % Sodium (137-145) mmol/L Potassium (3.5-5.1) mmol/L BUN (9-20) mg/dL Creatinine (0.66-1.25) mg/dL Glucose (74-99) mg/dL POC Glucose (mg/dL) 197 H 164 H (70-110) mg/dL Calcium (8.4-10.2) mg/dL Phosphorus (2.5-4.5) mg/dL Total Bilirubin (0.2-1.3) mg/dL AST (17-59) U/L ALT (4-49) U/L Alkaline Phosphatase (38-126) U/L C-Reactive Protein (<1.0) mg/dL Total Protein (6.3-8.2) g/dL Albumin (3.5-5.0) g/dL Triglycerides (0.00-149.00) mg/dL Procalcitonin (0.02-0.09) ng/mL Microbiology - Last 24 Hours (Table) 07/04/22 23:20 Gram Stain - Preliminary Sputum Sputum Culture - Preliminary Yeast species
[2022-07-06 17:05] LABS: Glucose,Whole Blood 170 mg/dL (70-110)
[2022-07-06] MEDS: [UNRECOGNIZED DRUG - REMARK] IV SCH ×5 (18:01)
[2022-07-06 21:05] LABS: Glucose,Whole Blood 168 mg/dL (70-110)
[2022-07-06] MEDS: ALPRAZolam 0.5 MG TAB PO SCH (21:58)
[2022-07-06] MEDS: MELATONIN 5 MG TABLET PO SCH (21:59)
[2022-07-06 22:10] LABS: Glucose,Whole Blood 195 mg/dL (70-110)
[2022-07-07 05:38] LABS: Calcium 7.6 mg/dL (8.4-10.2); Magnesium 2.1 mg/dL (1.6-2.3); Phosphorus 3.5 mg/dL (2.5-4.5); Potassium 3.6 mmol/L (3.5-5.1)
[2022-07-07 05:52] LABS: ABG Base Excess 0.5 mmol/L; ABG HCO3 26 mmol/L (21-25); ABG Oxygen Saturation 99.4 % (94-97); ABG PCO2 42 mmHg (35-45); ABG PH 7.39 (7.35-7.45); ABG PO2 114 mmHg (83-108); ABG TCO2 27 mmol/L (19-24); Allen Test Performed? Yes
[2022-07-07 06:28] LABS: Glucose,Whole Blood 187 mg/dL (70-110)
[2022-07-07] MEDS: METOCLOPRAMIDE 5 MG/ML 2 ML VIAL IVP SCH ×3 (06:32→17:51)
[2022-07-07] MEDS: INSULIN ASPART (NovoLOG) 100 UNIT/ML VIAL SQ SCH ×3 (06:32→17:50)
[2022-07-07] MEDS: LEVOTHYROXINE 88 MCG TAB PO SCH (06:34)
--- NOTE | 2022-07-07 07:30 | XR ---
EXAMINATION TYPE: XR chest 1V portable DATE OF EXAM: 07/07/2022 COMPARISON: 07/06/2022 HISTORY: SOB, Follow Up FINDINGS: Indwelling tubes and catheters are unchanged. No significant interval change in mixed interstitial and alveolar infiltrates with small bilateral pl eural effusions. Stable appearance of the cardio-mediastinal structures at this time. IMPRESSION: 1. Stable portable chest. Clinical correlation and follow up until resolution is recommended.
[2022-07-07] MEDS: IPRATROPIUM-ALBUTEROL 3 ML NEB INHALATION SCH ×4 (07:57→19:28)
[2022-07-07] MEDS: CHLORHEXIDINE GLUCONATE 15 ML CUP MUCOUS MEM SCH ×2 (08:18→20:38)
[2022-07-07] MEDS: NICOTINE 14MG/24HR PATCH TRANSDERM SCH (08:18)
[2022-07-07] MEDS: PIPERACILLIN-TAZOBACTAM 3.375 GM in SODIUM CHLORIDE 0.9% 100 ML IVPB SCH ×2 (08:19→17:01)
[2022-07-07] MEDS: OCTREOTIDE 100 MCG/ML INJ IVP SCH ×2 (08:19→17:01)
[2022-07-07] MEDS: PANTOPRAZOLE 40 MG/10 ML VIAL IVP SCH ×2 (08:19→20:38)
[2022-07-07] MEDS: ATORVASTATIN 40 MG TAB PO SCH (08:19)
--- NOTE | 2022-07-07 09:29 | P.PN ---
Subjective Patient is seen in follow-up for acute kidney injury. Started on hemodialysis 07/05/2022. Tolerated dialysis well yesterday with 2 L UF. Remains intubated. On low-dose Levophed. Cardizem drip was stopped last night. Receiving TPN. Urine output about 20 mL an hour. Vital signs are stable. On vasopressor support. General: Resting in bed. HEENT: Intubated. LUNGS: Breath sounds decreased. HEART: Rate and Rhythm are regular. ABDOMEN: Soft, distention noted. EXTREMITITES: 2+ edema. Objective - Vital Signs Vital signs: Vital Signs Temp 97.2 F L 07/07/22 04:00 Pulse 75 07/07/22 08:08 Resp 24 07/07/22 07:00 BP 128/48 07/07/22 03:00 Pulse Ox 100 07/07/22 07:00 FiO2 40 07/07/22 07:53 Intake & Output 07/06/22 07/07/22 07/07/22 18:59 06:59 18:59 Intake Total 0699.498 8621.870 97 Output Total 2393 765 121 Balance -712.591 677.870 -24 Intake: IV 699 1067 97 Furosemide 100 mg In 15 Sodium Chloride 0.9% 90 ml @ 15 MG/HR 15 mls/hr IV .Q6H40M [facility] Rx#: [id number] Mvi, Adult No.4 with Vit 334 517 47 K 10 ml Trace (Conc-1Ml/ Dose) 1 ml Sodium Acetate 16 meq Sodium Chloride 4Meq/ml Vial 16 meq Calcium Gluconate 1 gm In Amino Acid 5%-D15w 1,000 ml @ 30 mls/hr IV .Q24H [facility] Rx#:[id number] Piperacillin-Tazobactam 3 200 100 .375 gm In Sodium Chloride 0.9% 100 ml @ 25 mls/hr IVPB Q8HR [facility] Rx# :[id number] Sodium Chloride 0.9% 1, 150 450 50 000 ml @ 50 mls/hr IV . Q20H [facility] Rx#:[id number] Intake, IV Titration 581.409 375.870 Amount Diltiazem 125 mg In 162.333 12.167 Sodium Chloride 0.9% 100 ml @ 5 MG/HR 5 mls/hr IV .Q24H [facility] Rx#:[id number] Norepinephrine 32 mg In 172.013 68.662 Sodium Chloride 0.9% 218 ml @ 0.05 MCG/KG/MIN 2. 445 mls/hr IV .Q24H [facility] Rx#:[id number] propofoL 1,000 mg In 247.063 295.041 Empty Bag 1 bag @ 5 MCG/ KG/MIN 3.129 mls/hr IV . Q24H [facility] Rx#:[id number] Hemodialysis 300 Other 100 Output: Gastric Drainage 200 550 100 Urine 193 215 21 Hemodialysis 2000 Other: Voiding Method Indwelling Catheter Indwelling Catheter ABP, PAP, CO, CI - Last Documented Arterial Blood Pressure 151/46 - Labs CBC & Chem 7: 07/06/22 03:35 07/07/22 04:45 Labs: Abnormal Lab Results - Last 24 Hours (Table) 07/06/22 07/06/22 07/06/22 Range/Units 03:35 11:26 17:03 ABG pO2 (83-108) mmHg ABG HCO3 (21-25) mmol/L ABG Total CO2 (19-24) mmol/L ABG O2 Saturation (94-97) % Sodium (137-145) mmol/L BUN (9-20) mg/dL Creatinine (0.66-1.25) mg/dL Glucose (74-99) mg/dL POC Glucose (mg/dL) 164 H 170 H (70-110) mg/dL Calcium (8.4-10.2) mg/dL Procalcitonin 0.50 H (0.02-0.09) ng/mL 07/06/22 07/06/22 07/07/22 Range/Units 21:04 22:09 04:45 ABG pO2 (83-108) mmHg ABG HCO3 (21-25) mmol/L ABG Total CO2 (19-24) mmol/L ABG O2 Saturation (94-97) % Sodium 133 L (137-145) mmol/L BUN 63 H (9-20) mg/dL Creatinine 2.86 H (0.66-1.25) mg/dL Glucose 178 H (74-99) mg/dL POC Glucose (mg/dL) 168 H 195 H (70-110) mg/dL Calcium 7.6 L (8.4-10.2) mg/dL Procalcitonin (0.02-0.09) ng/mL 07/07/22 07/07/22 Range/Units 05:47 06:26 ABG pO2 114 H (83-108) mmHg ABG HCO3 26 H (21-25) mmol/L ABG Total CO2 27 H (19-24) mmol/L ABG O2 Saturation 99.4 H (94-97) % Sodium (137-145) mmol/L BUN (9-20) mg/dL Creatinine (0.66-1.25) mg/dL Glucose (74-99) mg/dL POC Glucose (mg/dL) 187 H (70-110) mg/dL Calcium (8.4-10.2) mg/dL Procalcitonin (0.02-0.09) ng/mL Microbiology - Last 24 Hours (Table) 07/04/22 23:20 Gram Stain - Preliminary Sputum Sputum Culture - Preliminary Yeast species Assessment and Plan Plan: Assessment: 1. Acute kidney injury secondary to septic ATN and hypotension. Urine output 20 mL an hour. Baseline creatinine near 1. Started on hemodialysis 07/05/2022. 2. Hyperkalemia secondary to acute kidney injury. Improved postdialysis. 3. Shock maintained on Levophed. 4. Group B strep bacteremia and ?pneumonia on antibiotics. ID following. 5. Volume overload. 6. Liver cirrhosis. 7. Ascites status post paracentesis on 07/01/2022 to 3.6 L drained. 8. A. fib with RVR s/p Cardizem drip. Cardiology following. 9. Hyperphosphatemia secondary to acute kidney injury. Improved postdialysis. Phosphorus level 3.5 today. 10. Respiratory and metabolic acidosis. Improved. Plan: Third treatment of hemodialysis today - will try for 3 L UF. Continue with daily dialysis for now mostly for ultrafiltration. Add IV Lasix 80 mg twice daily. TPN per surgery. Wean FiO2 and vasopressors. Continue to monitor renal function and urine output. Monitor for renal recovery.
--- NOTE | 2022-07-07 09:31 | P.PN ---
Subjective Progress Note Date: 07/06/22 Ag Souza, is a 67-year-old male who presented to [facility] emergency room after having a multiple falls at home, has significant mental status changes with somnolence and poor responsiveness, history per his , over the last 24 hours patient has been not feeling well, he fell twice at home, on the second time she was not able to wake him up and get him up from the floor through the bed, she called EMS and he was brought into emergency room. He was evaluated in the emergency room vital examination on presentation revealed a temperature of 97.3 pulse 82 respiration 16 blood pressure 121/67 pulse ox 97% on room air Laboratory data revealed a white blood count of 23.2 hemoglobin 14.4 platelet count 98,000 sodium 129 potassium 4.9 chloride 96 CO2 25 BUN 51 creatinine 2.24 troponin level was 0.02 COVID-19 testing was negative Testing in the emergency room revealed chest x-ray done in the emergency room did not reveal significant abnormality. Patient has a known history of degenerative disc disease with chronic pain maintained on narcotics for pain management he was given Narcan in the emergency room which led to improvement in his mental status. Patient was admitted to medical floor for further evaluation and treatment. On 06/22/2022 patient was seen and examined on the telemetry floor he is still somnolent, agitated, pulling on his IV line, he was started through the night on IV Ativan, vital examination reveals a temperature of 98.4 pulse 132 respiration 24 blood pressure 172/91 pulse ox 96% on 2 L nasal cannula, white blood count is 21.9 hemoglobin 14.8 platelet count 118 d-dimer was elevated at 2.12 at this time will start patient on IV heparin high-intensity for possible pulmonary embolism, his kidney function is still elevated, will defer computed tomography scan this time, he is not cooperative to proceed with VQ scan, will continue with IV fluid, nephrology consultation and infectious disease consultation were requested. On 06/23/2022 patient was seen and examined in the ICU he is more alert and oriented today vital exam reveals a temperature of 98.2 pulse 86 respiration 23 blood pressure 138/79 pulse ox 93% on 2 L nasal cannula white blood count is down to 15.4 hemoglobin 13.2 platelet count 125 kidney function improved with BUN at 66 and creatinine at 0.89 kidney ultrasound was done and revealed no evidence of renal stones or obstruction, CT angiogram of the chest was done and there was no evidence of pulmonary embolism, blood culture were positive for Streptococcus group b , patient is currently maintained on IV Unasyn, IV vanc omycin and IV acyclovir, cardiology, pulmonary, nephrology, neurology and infectious disease are following On 06/24/2022 patient was seen and examined in the ICU he is more alert and oriented today kidney ultrasound was done and revealed no evidence of renal stones or obstruction, CT angiogram of the chest was done and there was no evidence of pulmonary embolism, blood culture were positive for Streptococcus group b , patient is currently maintained on IV Unasyn, IV vancomycin and IV acyclovir, cardiology, pulmonary, nephrology, neurology and infectious disease are following. Patient had a maroon colored stools through the night, GI consultation is not available this week, surgical consultation was requested for evaluation for possible GI bleed On 06/25/2022 patient was seen and examined in the ICU, he is more alert and responsive today, there is no fever or chills no headache or dizziness no chest pain no shortness of breath no cough no nausea or vomiting no abdominal pain no diarrhea and no urinary symptoms. IV heparin has been discontinued, at this time will start subcu Lovenox for DVT prophylaxis, he remains on IV antibiotics cefazolin 2 g IV every 8 hours. On 06/26/2022 patient was seen and examined in the ICU he is alert and oriented 3 in no apparent distress he is complaining of abdominal discomfort otherwise he denies any complaint at this time there is no fever or chills no headache or dizziness no chest pain no shortness of breath no cough no nausea or vomiting no diarrhea no blood in the stools no burning with urination no frequency or urgency and no hematuria. On 06/27/2022 patient was seen and examined on in the ICU he is alert and oriented 3, he is feeling better, he had multiple bowel movements and his abdominal pain has improved, he is still complaining of difficulty sleeping at night otherwise he denies any complaints there is no fever or chills no headache or dizziness no chest pain no shortness of breath no cough no nausea or vomiting no abdominal pain no diarrhea no blood in the stools no burning with urination no frequency or urgency and no hematuria. On 06/28/2022 patient was seen and examined on the medical floor he is alert and oriented 3 in no distress there is no fever or chills no headache or dizziness no chest pain no shortness of breath no cough no nausea or vomiting no abdominal pain no diarrhea, no blood in the stools no burning with urination no frequency or urgency and no hematuria patient has generalized weakness he is improving gradually will continue to follow closely physical therapy is following On 06/29/2022 patient was seen and examined on the medical floor he is alert and oriented 3 in no apparent distress there is no fever or chills no headache or dizziness no chest pain no shortness of breath no cough no nausea or vomiting he is complaining of abdominal discomfort with abdominal distention no diarrhea or constipation no blood in the stools no burning with urination no frequency or urgency and no hematuria. At this time patient is scheduled for computed tomography scan of the abdomen and pelvis will continue to monitor closely. On 06/30/2022 patient was seen and examined on the telemetry floor he is alert and oriented 3 in no apparent distress he is complaining now of severe neck gina n and back pain and requesting [place], patient underwent paracentesis today, 3.5 L of fluid were removed, otherwise patient denies any other symptoms there is no fever or chills no headache or dizziness no chest pain no shortness of breath no cough no nausea or vomiting no abdominal pain no diarrhea and no urinary symptoms On 07/01/2022 patient was seen and examined on the medical floor he is alert and oriented 3 in no apparent distress he is complaining of abdominal discomfort and distention otherwise he denies any complaints at this time there is no fever or chills no headache or dizziness no chest pain no shortness of breath no cough no nausea or vomiting no diarrhea no blood in the stools no burning with urination no frequency or urgency and no hematuria On 07/02/2022 patient was seen and examined on the medical floor he is alert and oriented 3 in no apparent distress he is complaining of abdominal discomfort and distention, he is complaining of bilateral hip pain, he received 1 dose of lactulose and had multiple episodes of diarrhea afterwards lactulose was discontinued, otherwise he denies any complaints at this time there is no fever or chills no headache or dizziness no chest pain no shortness of breath no cough no nausea or vomiting no blood in the stools no burning with urination no frequency or urgency and no hematuria. On 07/03/2022 patient was seen and examined the medical he is alert and oriented he is complaining of abdominal distention was discomfort and shortness of breath otherwise he denies any complaints there is no fever or chills no headache or dizziness no chest pain no cough no nausea or vomiting no urinary symptoms On 07/04/2022 patient was seen and examined in the ICU he is more lethargic today he was started on BiPAP and transferred to ICU today ammonia level is elevated at 38 there is no fever or chills no headache or dizziness no chest pain patient has significant distention in the abdomen, no nausea or vomiting no diarrhea, Russo catheter is in. On 07/05/2022 patient was seen and examined in the ICU at this time he is intubated sedated maintained on mechanical ventilation, currently he is on assist control rate of 20 to FiO2 50% and PEEP of 5 he had a dialysis catheter placed and a session of hemodialysis is scheduled for this afternoon, patient is maintained on norepinephrine drip, white blood count is up to 25,000 hemoglobin is 11 BUN is up to 78 and creatinine 2.47 patient is maintained on IV Zosyn infectious disease are following, prognosis is guarded will continue with aggressive management at this time and sister are at the bedside and are aware of patient's condition. On 07/06/2022 patient was seen and examined in the ICU he is intubated sedated maintained on mechanical ventilation assist control rate 22 FiO2 50% with PEEP of 5 he was started on hemodialysis yesterday he is still IV antibiotic and IV fluid and norepinephrine temperature of 97.7 pulse 96 respiration 24 blood pressure 128/48 sodium 135 potassium 4.4 chloride 101 CO2 22 BUN 78 creatinine 3.19 white blood count 17.4 hemoglobin 10.5 platelet count 167 Objective - Vital Signs Vital signs: Vital Signs Temp 98.8 F 07/06/22 04:00 Pulse 88 07/06/22 07:52 Resp 22 07/06/22 07:30 BP 128/48 07/06/22 07:30 Pulse Ox 97 07/06/22 07:30 FiO2 20 07/06/22 07:14 Intake & Output 07/05/22 07/06/22 07/06/22 18:59 06:59 18:59 Intake Total 6504.666 7520.496 95 Output Total 1080 160 12 Balance 814.873 5607.496 83 Weight 104.3 kg Intake: IV 600 855 95 Furosemide 100 mg In 135 15 Sodium Chloride 0.9% 90 ml @ 15 MG/HR 15 mls/hr IV .Q6H40M [facility] Rx#: [id number] Mvi, Adult No.4 with Vit 270 30 K 10 ml Trace (Conc-1Ml/ Dose) 1 ml Sodium Acetate 16 meq Sodium Chloride 4Meq/ml Vial 16 meq Calcium Gluconate 1 gm In Amino Acid 5%-D15w 1,000 ml @ 30 mls/hr IV .Q24H [facility] Rx#:[id number] Piperacillin-Tazobactam 3 100 .375 gm In Sodium Chloride 0.9% 100 ml @ 25 mls/hr IVPB Q8HR [facility] Rx# :[id number] Sodium Chloride 0.9% 1, 600 350 50 000 ml @ 50 mls/hr IV . Q20H [facility] Rx#:[id number] Intake, IV Titration 957.190 545.496 Amount Furosemide 100 mg In 88.5 197.5 Sodium Chloride 0.9% 90 ml @ 15 MG/HR 15 mls/hr IV .Q6H40M [facility] Rx#: [id number] Mvi, Adult No.4 with Vit 30 K 10 ml Trace (Conc-1Ml/ Dose) 1 ml Sodium Acetate 16 meq Sodium Chloride 4Meq/ml Vial 16 meq Calcium Gluconate 1 gm In Amino Acid 5%-D15w 1,000 ml @ 30 mls/hr IV .Q24H [facility] Rx#:[id number] Norepinephrine 32 mg In 113.082 147.996 Sodium Chloride 0.9% 218 ml @ 0.05 MCG/KG/MIN 2. 445 mls/hr IV .Q24H [facility] Rx#:[id number] Norepinephrine 4 mg In 458.050 Sodium Chloride 0.9% 250 ml @ 0.05 MCG/KG/MIN 19. 869 mls/hr IV .[id number] [facility] Rx#:[id number] propofoL 1,000 mg In 267.558 200.000 Empty Bag 1 bag @ 5 MCG/ KG/MIN 3.129 mls/hr IV . Q24H [facility] Rx#:[id number] Output: Urine 80 160 12 Hemodialysis 1000 Other: Voiding Method Indwelling Catheter Indwelling Catheter ABP, PAP, CO, CI - Last Documented Arterial Blood Pressure 112/43 - Exam In general patient is alert and responsive in no apparent distress HEENT head normocephalic and atraumatic Neck is supple no JVD no goiter no lymphadenopathy no carotid bruit Chest examination is clear to auscultation no crackles no wheezing Cardiac exam reveals regular heart sounds S1 and S2 no gallops no murmurs Abdomen is distended with generalized tenderness, no organomegaly Extremity exam reveals no edema no cyanosis or clubbing Neurological examination reveals no gross focal deficits - Labs CBC & Chem 7: 07/06/22 03:35 07/07/22 04:45 Labs: Abnormal Lab Results - Last 24 Hours (Table) 07/05/22 07/05/22 07/05/22 Range/Units 11:40 14:05 14:05 WBC (3.8-10.6) k/uL RBC (4.30-5.90) m/uL Hgb (13.0-17.5) gm/dL Hct (39.0-53.0) % MCV (80.0-100.0) fL Neutrophils # (1.3-7.7) k/uL Monocytes # (0-1.0) k/uL ABG pH (7.35-7.45) ABG pCO2 (35-45) mmHg ABG Total CO2 (19-24) mmol/L ABG O2 Saturation (94-97) % Sodium (137-145) mmol/L Potassium 5.4 H (3.5-5.1) mmol/L BUN (9-20) mg/dL Creatinine (0.66-1.25) mg/dL Glucose (74-99) mg/dL POC Glucose (mg/dL) 134 H (70-110) mg/dL Calcium (8.4-10.2) mg/dL Phosphorus 6.4 H (2.5-4.5) mg/dL Total Bilirubin (0.2-1.3) mg/dL AST (17-59) U/L ALT (4-49) U/L Alkaline Phosphatase (38-126) U/L C-Reactive Protein (<1.0) mg/dL Total Protein (6.3-8.2) g/dL Albumin (3.5-5.0) g/dL Triglycerides 245.00 H (0.00-149.00) mg/dL 07/05/22 07/05/22 07/06/22 Range/Units 17:28 21:24 00:05 WBC (3.8-10.6) k/uL RBC (4.30-5.90) m/uL Hgb (13.0-17.5) gm/dL Hct (39.0-53.0) % MCV (80.0-100.0) fL Neutrophils # (1.3-7.7) k/uL Monocytes # (0-1.0) k/uL ABG pH (7.35-7.45) ABG pCO2 (35-45) mmHg ABG Total CO2 (19-24) mmol/L ABG O2 Saturation (94-97) % Sodium (137-145) mmol/L Potassium (3.5-5.1) mmol/L BUN (9-20) mg/dL Creatinine (0.66-1.25) mg/dL Glucose (74-99) mg/dL POC Glucose (mg/dL) 145 H 191 H 219 H (70-110) mg/dL Calcium (8.4-10.2) mg/dL Phosphorus (2.5-4.5) mg/dL Total Bilirubin (0.2-1.3) mg/dL AST (17-59) U/L ALT (4-49) U/L Alkaline Phosphatase (38-126) U/L C-Reactive Protein (<1.0) mg/dL Total Protein (6.3-8.2) g/dL Albumin (3.5-5.0) g/dL Triglycerides (0.00-149.00) mg/dL 07/06/22 07/06/22 07/06/22 Range/Units 03:35 03:35 05:46 WBC 17.4 H (3.8-10.6) k/uL RBC 3.20 L (4.30-5.90) m/uL Hgb 10.5 L (13.0-17.5) gm/dL Hct 32.6 L (39.0-53.0) % MCV 101.8 H (80.0-100.0) fL Neutrophils # 12.0 H (1.3-7.7) k/uL Monocytes # 1.7 H (0-1.0) k/uL ABG pH 7.31 L (7.35-7.45) ABG pCO2 47 H (35-45) mmHg ABG Total CO2 25 H (19-24) mmol/L ABG O2 Saturation 97.2 H (94-97) % Sodium 135 L (137-145) mmol/L Potassium (3.5-5.1) mmol/L BUN 78 H (9-20) mg/dL Creatinine 3.19 H (0.66-1.25) mg/dL Glucose 203 H (74-99) mg/dL POC Glucose (mg/dL) (70-110) mg/dL Calcium 8.0 L (8.4-10.2) mg/dL Phosphorus 4.7 H (2.5-4.5) mg/dL Total Bilirubin 2.0 H (0.2-1.3) mg/dL AST 1992 H (17-59) U/L ALT 621 H (4-49) U/L Alkaline Phosphatase 132 H (38-126) U/L C-Reactive Protein 2.3 H (<1.0) mg/dL Total Protein 5.9 L (6.3-8.2) g/dL Albumin 3.3 L (3.5-5.0) g/dL Triglycerides (0.00-149.00) mg/dL 07/06/22 Range/Units 07:01 WBC (3.8-10.6) k/uL RBC (4.30-5.90) m/uL Hgb (13.0-17.5) gm/dL Hct (39.0-53.0) % MCV (80.0-100.0) fL Neutrophils # (1.3-7.7) k/uL Monocytes # (0-1.0) k/uL ABG pH (7.35-7.45) ABG pCO2 (35-45) mmHg ABG Total CO2 (19-24) mmol/L ABG O2 Saturation (94-97) % Sodium (137-145) mmol/L Potassium (3.5-5.1) mmol/L BUN (9-20) mg/dL Creatinine (0.66-1.25) mg/dL Glucose (74-99) mg/dL POC Glucose (mg/dL) 197 H (70-110) mg/dL Calcium (8.4-10.2) mg/dL Phosphorus (2.5-4.5) mg/dL Total Bilirubin (0.2-1.3) mg/dL AST (17-59) U/L ALT (4-49) U/L Alkaline Phosphatase (38-126) U/L C-Reactive Protein (<1.0) mg/dL Total Protein (6.3-8.2) g/dL Albumin (3.5-5.0) g/dL Triglycerides (0.00-149.00) mg/dL Microbiology - Last 24 Hours (Table) 07/04/22 23:20 Sputum Culture - Preliminary Sputum Assessment and Plan Plan: Mental status changes, cause is unclear could be related to overdose of narcotic Leukocytosis, no clear source of infection, chest x-ray and urine analysis don't show any clear evidence of infection, patient received IV steroids in the EMS and in the emergency room, will check lactic acid level and monitor CBC Acute exacerbation of COPD with wheezing on presentation, he was started on IV Solu-Medrol in the emergency room, he is on inhaled bronchodilators Evidence of acute kidney injury was elevated BUN and creatinine patient was started on IV fluid, nephrology consultation was requested Abdominal ascites, status post paracentesis 06/30/2022 with 3.5 L of fluid removed, Evidence of liver cirrhosis Mild elevation in troponin level will monitor Underlying history of hypertension Underlying history of hypothyroidism Underlying history of depression with anxiety disorder Underlying history of vitamin D deficiency Underlying history of degenerative disc disease with chronic back pain maintained on narcotics for pain management Underlying history of gastroesophageal reflux disease At this time patient is admitted to telemetry floor Will check d-dimer check lactic acid recheck CBC and CMP Continue with IV fluid and recheck renal function Consult nephrology
--- NOTE | 2022-07-07 10:33 | P.PN ---
Subjective Progress Note Date: 07/07/22 Principal diagnosis: Acute hypoxic and acute hypercapnic respiratory failure, acute metabolic encephalopathy, gram-positive sepsis On 06/24/2022 patient seen in follow-up in the intensive care unit. Patient is sedated, currently on Precedex at 0.5 mics per kilo per hour. He is on Precedex at 5 mg per hour. Lactated Ringer's at 75 ML per hour, remains sedated, very confused. No signs of any respiratory distress, he is on 4 L of oxygen per nasal cannula with pulse ox of 95%, his been afebrile, in sinus mechanism, rate is 79 BPM. His blood pressure is better controlled with Cleviprex infusion. It is currently 141/75. MRI of the brain was completed last night showing no evidence of a recent infarct, mild diffuse age-related cerebral atrophy and chronic small vessel ischemic changes. No abnormal enhancement was noted. Today's labs have been reviewed, white blood cell count is 20.0, hemoglobin is 12.7, INR is 1.4, sodium is 134, potassium is 4.8, chloride is 109, BUN is 65 creatinine 0.76. Last night's blood gas was also reviewed showing pO2 of 72, pCO2 of 32, and pH of 7.48. This was done on FiO2 of 32%. CTA chest a few days ago showed no evidence of pulmonary embolism, showed interstitial infiltrate and atelectasis, no suspicious pulmonary mass. EEG showed no focal slowing, epileptiform discharge or seizure. Echocardiogram showed EF of 60-65%. Blood culture showed strep agalactiae, group B. Follow-up blood cultures have shown no growth thus far. ID service is following, patient remains on cefazolin 2 g every 8 hours. Last night patient developed GI bleeding, and passed of a very large maroon-colored stool. Today's hemoglobin is 12.7 which is down from 14 from yesterday, platelet count is 141, INR is 1.4. GI service has been consulted for evaluation. 07/03/2022, abdomen is still distended. The patient was having liquidy stool yesterday and this has subsided on today. He is passing some gas. There is positive tympany and there is probably an underlying ileus. No significant pain. Currently is back in bed. He is on oxygen on 5 L per minute nasal cannula. Labs are still pending for now. There was a concern of an elevated creatinine was up to 2.2 from yesterday and this is to be repeated. BUN is at 78 from yesterday. He is afebrile. He is hemodynamically stable. The patient remains on IV Unasyn. In terms of laxatives, these are all on hold for now. Ascitic fluid the ascitic fluid cultures are still negative. Reevaluated today on 07/04/22, patient is quite lethargic, I saw him on the regular medical floor, patient is on BiPAP with IPAP of 12 EPAP of 6 and 60% FiO2. ABG showed a pO2 of 76 pCO2 of 91 pH of 7.11, hence I recommended transferring the patient to ICU. Patient continues to have leukocytosis with WBC of 18.9 hemoglobin is 9.7. Renal functioning remains abnormal with a BUN of 70 creatinine 1.6. Blood sugar is 142. Blood cultures were positive for strep agalactiae group B, his fluid cultures from the abdomen remain negative so far. Family is at bedside, patient is quite lethargic, hence I recommended transferring the patient to the ICU. Abdominal ultrasound showed mild abdominal ascites, chest x-ray continues to show interstitial infiltrates especially at the left base, consistent with atypical pulmonary edema, doubt pneumonia although aspiration pneumonia could also be considered. Patient remains on Unasyn. Patient is also on Lasix 40 mg IV push twice a day. Reevaluated today on 07/05/2022, patient had a deterioration in his clinical status yesterday after he was transferred to the ICU, and early evening, his condition continued to deteriorate, patient did not seem to improve with BiPAP, and his ABG seems to be not improving. Continue to remain more lethargic hence, around 10 PM I recommended intubation and mechanical ventilation. Today the patient is mechanically ventilated. He is on assist control rate of 22 total volume 500 FiO2 50% and PEEP of 5. His ABG earlier on assist control rate of 16 showed a pO2 of 101 pCO2 of 61 pH of 7.16. Patient developed significant oligoria, and I had to place the patient on Lasix now he is on 15 mg per hour, he was on 10 mg overnight. He is also requiring norepinephrine at 0.36 mcg/kg/m. Propofol at 40 mcg/kg/m. Remains on antibiotics in the form of Unasyn. IV fluid is at 50 mL per hour and cutting down to KVO since the chest x-ray is showing evidence of pulmonary edema. Patient remains oliguric and he was seen by nephrology today, the patient may be heading to possible hemodialysis. His urine output at present is 5-10 mL per hour in spite of Lasix drip. His liver enzymes are getting worse. His leukocytosis is getting worse. And I went ahead today and placed a right femoral triple-lumen catheter for norepinephrine infusion. WBC count today is 25.5, hemoglobin is 11, BUN is 78 creatinine 2.47. Liver enzymes are elevated with elevated total bilirubin of 2.0 AST of 541 AST of 147, ammonia level yesterday was 38. Chest x-ray today is showing evidence of pulmonary edema, underlying pneumonia is not entirely excluded. Reevaluated today on 07/06/22, remains in the ICU, intubated and mechanically ventilated. Patient is on assist control rate of 22 total volume 500 FiO2 50% and PEEP of 5. Patient underwent renal replacement therapy yesterday, and he tolerated that quite well. His ABG today showed a pO2 of 87 pCO2 47 pH of 7.31. And his FiO2 was cut down to 45%. Rate was increased to 24. Patient remains on multiple drips including Cardizem at 10 mg per hour, norepinephrine at 0.34 propofol at 50 mcg/kg/m and he is on saline at 50 mL per hour. Patient is not responsive to any stimuli, however the patient will be off propofol today, and we will assess mental status. Patient has been encephalopathic all along since admission. And I recommended cutting down Cardizem to 5 mg per hour. Chest x- ray is showing improvement in his pulmonary edema, WBC count of 17.4 hemoglobin is 10.5. Basic metabolic profile is normal except for BUN of 78 creatinine 3.19, and his urine output is very poor patient is relatively oligoric liver enzymes are elevated, pro-calcitonin is also elevated. Reevaluated today on 07/07/2022, patient remains in the ICU, intubated and mechanically ventilated. He is presently on assist control rate of 24 to volume 500 FiO2 40% and PEEP of 5 ABG showed a pO2 of 114 pCO2 42 pH of 7.39 and this was on 45% FiO2 earlier. Patient remains on TPN remains on a very small tiny dose of norepinephrine at 0.02, and his propofol has been off for the last hour before I saw him still the patient is not showing any responses and I plan to give him a sedation holiday and addressed mental status today. Patient remains on hemodialysis, he is intermittently in atrial flutter and that being addressed by cardiology on the case, Cardizem is off presently he continues to have a nasogastric tube in place, and 1100 mL overnight noted from the nasogastric tube. Abdomen is a bit distended, ordered an ultrasound of the abdomen to assess of the patient may benefit from paracentesis again. Chest x-ray is showing improvement in his interstitial edema. His labs today showed relatively normal electrolytes however his BUN is 63 creatinine 2.86, pro-calcitonin 0.50 Objective - Vital Signs Vital signs: Vital Signs Temp 97.2 F L 07/07/22 04:00 Pulse 75 07/07/22 08:08 Resp 24 07/07/22 07:00 BP 128/48 07/07/22 03:00 Pulse Ox 100 07/07/22 07:00 FiO2 40 07/07/22 07:53 Intake & Output 07/06/22 07/07/22 07/07/22 18:59 06:59 18:59 Intake Total 2560.744 7869.870 97 Output Total 2393 765 121 Balance -712.591 677.870 -24 Intake: IV 699 1067 97 Furosemide 100 mg In 15 Sodium Chloride 0.9% 90 ml @ 15 MG/HR 15 mls/hr IV .Q6H40M [facility] Rx#: [id number] Mvi, Adult No.4 with Vit 334 517 47 K 10 ml Trace (Conc-1Ml/ Dose) 1 ml Sodium Acetate 16 meq Sodium Chloride 4Meq/ml Vial 16 meq Calcium Gluconate 1 gm In Amino Acid 5%-D15w 1,000 ml @ 30 mls/hr IV .Q24H [facility] Rx#:[id number] Piperacillin-Tazobactam 3 200 100 .375 gm In Sodium Chloride 0.9% 100 ml @ 25 mls/hr IVPB Q8HR [facility] Rx# :[id number] Sodium Chloride 0.9% 1, 150 450 50 000 ml @ 50 mls/hr IV . Q20H [facility] Rx#:[id number] Intake, IV Titration 581.409 375.870 Amount Diltiazem 125 mg In 162.333 12.167 Sodium Chloride 0.9% 100 ml @ 5 MG/HR 5 mls/hr IV .Q24H [facility] Rx#:[id number] Norepinephrine 32 mg In 172.013 68.662 Sodium Chloride 0.9% 218 ml @ 0.05 MCG/KG/MIN 2. 445 mls/hr IV .Q24H [facility] Rx#:[id number] propofoL 1,000 mg In 247.063 295.041 Empty Bag 1 bag @ 5 MCG/ KG/MIN 3.129 mls/hr IV . Q24H [facility] Rx#:[id number] Hemodialysis 300 Other 100 Output: Gastric Drainage 200 550 100 Urine 193 215 21 Hemodialysis 1999 Other: Voiding Method Indwelling Catheter Indwelling Catheter ABP, PAP, CO, CI - Last Documented Arterial Blood Pressure 151/46 - Exam GENERAL EXAM: 67-year-old white male, intubated and mechanically ventilated. Off propofol for the last hour HEAD: Normocephalic/atraumatic. Endotracheal tube and orogastric tube are intact. HEENT: PERRLA, EOMI, anicteric, neck masses, no JVD. CHEST: No chest wall deformity. Symmetrical expansion. LUNGS: Minimal crackles at the bases no rhonchi and no wheezes CVS: Regular rate and rhythm, normal S1 and S2, no gallops, no murmurs, no rubs ABDOMEN: Slightly distended, soft nontender, positive ascites. EXTREMITIES: No clubbing, 2+ bipedal edema, no cyanosis, 2+ pulses and upper and lower extremities. SKIN: No rashes CENTRAL NERVOUS SYSTEM: Cannot assess, remains relatively sedated Psychiatric: Cannot assess remains sedated - Labs CBC & Chem 7: 07/06/22 03:35 07/07/22 04:45 Labs: Abnormal Lab Results - Last 24 Hours (Table) 07/06/22 07/06/22 07/06/22 Range/Units 11:26 17:03 21:04 ABG pO2 (83-108) mmHg ABG HCO3 (21-25) mmol/L ABG Total CO2 (19-24) mmol/L ABG O2 Saturation (94-97) % Sodium (137-145) mmol/L BUN (9-20) mg/dL Creatinine (0.66-1.25) mg/dL Glucose (74-99) mg/dL POC Glucose (mg/dL) 164 H 170 H 168 H (70-110) mg/dL Calcium (8.4-10.2) mg/dL 07/06/22 07/07/22 07/07/22 Range/Units 22:09 04:45 05:47 ABG pO2 114 H (83-108) mmHg ABG HCO3 26 H (21-25) mmol/L ABG Total CO2 27 H (19-24) mmol/L ABG O2 Saturation 99.4 H (94-97) % Sodium 133 L (137-145) mmol/L BUN 63 H (9-20) mg/dL Creatinine 2.86 H (0.66-1.25) mg/dL Glucose 178 H (74-99) mg/dL POC Glucose (mg/dL) 195 H (70-110) mg/dL Calcium 7.6 L (8.4-10.2) mg/dL 07/07/22 Range/Units 06:26 ABG pO2 (83-108) mmHg ABG HCO3 (21-25) mmol/L ABG Total CO2 (19-24) mmol/L ABG O2 Saturation (94-97) % Sodium (137-145) mmol/L BUN (9-20) mg/dL Creatinine (0.66-1.25) mg/dL Glucose (74-99) mg/dL POC Glucose (mg/dL) 187 H (70-110) mg/dL Calcium (8.4-10.2) mg/dL Microbiology - Last 24 Hours (Table) 07/04/22 23:20 Gram Stain - Preliminary Sputum Sputum Culture - Preliminary Yeast species Assessment and Plan Assessment: Impression: gram-positive bacteremia, exact source remains unclear. Acute hypoxic and hypercapnic respiratory failure requiring BiPAP. Patient failed BiPAP, and he was intubated on 07/04/2022 Ascites, status post paracentesis, cultures are negative Acute ileus. Acute metabolic encephalopathy secondary to CO2 narcosis. Acute GI bleeding, presently inactive. Acute kidney injury secondary to sepsis. This is associated with oliguria. Multiple falls at home. History of opiate dependence History of underlying COPD/chronic bronchial asthma, unspecified. Chronic back pain. Generalized anxiety disorder. Status post paracentesis on 06/30/2022, 3.6 L removed. Recommendation: Continue ventilatory support Daily sedation interruption and assessment of mental status. Yesterday this this could not be accomplished Continue hemodynamic patient remains on 0.02 mcg/m of norepinephrine., Continue antibiotics. Patient is on Zosyn. Continue hemodialysis Monitor in the ICU. Continue TPN GI and DVT prophylaxis. Patient remains critically ill. Prognosis is extremely guarded. Critical care time is over 30 minutes. Time with Patient: Greater than 30
[2022-07-07 12:05] LABS: Glucose,Whole Blood 169 mg/dL (70-110)
--- NOTE | 2022-07-07 12:06 | US ---
EXAMINATION TYPE: US abdomen limited DATE OF EXAM: 07/07/2022 COMPARISON: none CLINICAL HISTORY: ascites. Ascites check. All four quadrants of abdomen scanned. Ascites visualized. IMPRESSION: ascites
[2022-07-07] MEDS: METOPROLOL SUCCINATE (ER) 100 MG TAB.ER.24H PO SCH (13:07)
[2022-07-07] MEDS: FUROSEMIDE 10 MG/ML 10 ML VIAL IV SCH ×2 (13:10→21:05)
[2022-07-07] MEDS: ENOXAPARIN 30 MG/0.3 ML SYRINGE SQ SCH (13:11)
[2022-07-07] MEDS: SIMETHICONE 40 MG/0.6 ML DROPS 2,000 MG/30 ML BOTTLE PO SCH ×4 (13:11→21:39)
--- NOTE | 2022-07-07 13:36 | P.PN ---
Subjective Progress Note Date: 07/07/22 CHIEF COMPLAINT: Abdominal distention HISTORY OF PRESENT ILLNESS: Patient in the ICU. Patient remains intubated and sedated. He is requiring a small dose of Levophed. He is on TPN for nutrition support. He did receive hemodialysis yesterday. Patient has OG tube in place with 750 mL out overnight. Abdominal ultrasound ordered for today. Results did show abdominal ascites in all 4 quadrants. Afebrile. Sodium 133 potassium 3.6 creatinine 2.86 magnesium 2.1 PHYSICAL EXAM: VITAL SIGNS: Reviewed GENERAL: Patient is intubated HEENT: No sclera icterus.Moist buccal mucosa. Head is atraumatic, normocephalic. NECK: Supple without lymphadenopathy. CHEST: Non-labored respirations and equal bilateral excursions. CARDIOVASCULAR: Palpable 2+ radial pulses. ABDOMEN: Soft. distended MUSCULOSKELETAL: No clubbing or cyanosis. NEUROLOGIC: Intubated and sedated SKIN: Well perfused. Good skin turgor. ASSESSMENT: 1. Duodenitis and jejunitis 2. Enteritis 3. Gastritis 4. Cirrhosis with abdominal ascites 5. Leukocytosis 6. Ileus 7. GI bleed resolved 8. Acute respiratory failure 9. Acute kidney injury PLAN: -Continue ICU management -Continue supportive care -Continue TPN for nutrition support -GI prophylaxis Protonix and DVT prophylaxis Lovenox Physician Cartoon Artist note has been reviewed by physician. Signing provider agrees with the documented findings, assessment, and plan of care. Objective - Vital Signs Vital signs: Vital Signs Temp 98.2 F 07/07/22 08:00 Pulse 81 07/07/22 13:00 Resp 24 07/07/22 13:00 BP 128/48 07/07/22 03:00 Pulse Ox 99 07/07/22 13:00 FiO2 40 07/07/22 12:43 Intake & Output 07/06/22 07/07/22 07/07/22 18:59 06:59 18:59 Intake Total 6121.721 9741.870 629 Output Total 2393 765 276 Balance -712.591 677.870 353 Intake: IV 699 1067 479 Furosemide 100 mg In 15 Sodium Chloride 0.9% 90 ml @ 15 MG/HR 15 mls/hr IV .Q6H40M [facility] Rx#: [id number] Mvi, Adult No.4 with Vit 334 517 329 K 10 ml Trace (Conc-1Ml/ Dose) 1 ml Sodium Acetate 16 meq Sodium Chloride 4Meq/ml Vial 16 meq Calcium Gluconate 1 gm In Amino Acid 5%-D15w 1,000 ml @ 30 mls/hr IV .Q24H [facility] Rx#:[id number] Piperacillin-Tazobactam 3 200 100 100 .375 gm In Sodium Chloride 0.9% 100 ml @ 25 mls/hr IVPB Q8HR [facility] Rx# :[id number] Sodium Chloride 0.9% 1, 150 450 50 000 ml @ 50 mls/hr IV . Q20H [facility] Rx#:[id number] Intake, IV Titration 581.409 375.870 Amount Diltiazem 125 mg In 162.333 12.167 Sodium Chloride 0.9% 100 ml @ 5 MG/HR 5 mls/hr IV .Q24H [facility] Rx#:[id number] Norepinephrine 32 mg In 172.013 68.662 Sodium Chloride 0.9% 218 ml @ 0.05 MCG/KG/MIN 2. 445 mls/hr IV .Q24H [facility] Rx#:[id number] propofoL 1,000 mg In 247.063 295.041 Empty Bag 1 bag @ 5 MCG/ KG/MIN 3.129 mls/hr IV . Q24H [facility] Rx#:[id number] Hemodialysis 300 Other 100 150 Output: Gastric Drainage 200 550 100 Urine 193 215 176 Hemodialysis 1999 Other: Voiding Method Indwelling Catheter Indwelling Catheter Indwelling Catheter ABP, PAP, CO, CI - Last Documented Arterial Blood Pressure 134/48 - Labs CBC & Chem 7: 07/06/22 03:35 07/07/22 04:45 Labs: Abnormal Lab Results - Last 24 Hours (Table) 07/06/22 07/06/22 07/06/22 Range/Units 17:03 21:04 22:09 ABG pO2 (83-108) mmHg ABG HCO3 (21-25) mmol/L ABG Total CO2 (19-24) mmol/L ABG O2 Saturation (94-97) % Sodium (137-145) mmol/L BUN (9-20) mg/dL Creatinine (0.66-1.25) mg/dL Glucose (74-99) mg/dL POC Glucose (mg/dL) 170 H 168 H 195 H (70-110) mg/dL Calcium (8.4-10.2) mg/dL 07/07/22 07/07/22 07/07/22 Range/Units 04:45 05:47 06:26 ABG pO2 114 H (83-108) mmHg ABG HCO3 26 H (21-25) mmol/L ABG Total CO2 27 H (19-24) mmol/L ABG O2 Saturation 99.4 H (94-97) % Sodium 133 L (137-145) mmol/L BUN 63 H (9-20) mg/dL Creatinine 2.86 H (0.66-1.25) mg/dL Glucose 178 H (74-99) mg/dL POC Glucose (mg/dL) 187 H (70-110) mg/dL Calcium 7.6 L (8.4-10.2) mg/dL 07/07/22 Range/Units 12:03 ABG pO2 (83-108) mmHg ABG HCO3 (21-25) mmol/L ABG Total CO2 (19-24) mmol/L ABG O2 Saturation (94-97) % Sodium (137-145) mmol/L BUN (9-20) mg/dL Creatinine (0.66-1.25) mg/dL Glucose (74-99) mg/dL POC Glucose (mg/dL) 169 H (70-110) mg/dL Calcium (8.4-10.2) mg/dL Microbiology - Last 24 Hours (Table) 07/04/22 23:20 Gram Stain - Final Sputum Sputum Culture - Final Rosanne sp,not albicans/galbr
[2022-07-07] MEDS: MVI, ADULT NO.4 WITH VIT K 10 ML, TRACE (CONC-1ML/DOSE) 1 ML, SODIUM ACETATE 40 MEQ, CA... IV SCH ×5 (15:46)
[2022-07-07] MEDS: [UNRECOGNIZED DRUG - REMARK] IV SCH ×5 (15:56)
[2022-07-07 17:47] LABS: Glucose,Whole Blood 171 mg/dL (70-110)
[2022-07-07] MEDS: HYDROmorphone 1 MG/ML 1 ML SYRINGE IVP PRN (20:38)
[2022-07-07] MEDS: ALPRAZolam 0.5 MG TAB PO SCH (20:38)
[2022-07-07] MEDS: MELATONIN 5 MG TABLET PO SCH (20:38)
[2022-07-08 00:03] LABS: Glucose,Whole Blood 180 mg/dL (70-110)
[2022-07-08] MEDS: METOCLOPRAMIDE 5 MG/ML 2 ML VIAL IVP SCH ×5 (00:12→23:38)
[2022-07-08] MEDS: INSULIN ASPART (NovoLOG) 100 UNIT/ML VIAL SQ SCH ×5 (00:12→23:36)
[2022-07-08] MEDS: OCTREOTIDE 100 MCG/ML INJ IVP SCH ×4 (00:12→23:38)
[2022-07-08] MEDS: PIPERACILLIN-TAZOBACTAM 3.375 GM in SODIUM CHLORIDE 0.9% 100 ML IVPB SCH ×4 (00:13→23:38)
[2022-07-08 04:41] LABS: Albumin 2.6 g/dL (3.5-5.0); Calcium 7.7 mg/dL (8.4-10.2); Magnesium 2.1 mg/dL (1.6-2.3); Phosphorus 3.5 mg/dL (2.5-4.5); Potassium 3.3 mmol/L (3.5-5.1); Total Bilirubin 1.8 mg/dL (0.2-1.3); Total Protein 5.4 g/dL (6.3-8.2)
[2022-07-08 05:14] LABS: HCT 28.8 % (39.0-53.0); HGB 9.2 gm/dL (13.0-17.5); Hypochromasia Moderate; MCHC 31.8 g/dL (31.0-37.0); MCV 100.7 fL (80.0-100.0); Macrocytosis Slight; Mean Platelet Volume 11.6; RBC 2.86 m/uL (4.30-5.90); RDW 14.8 % (11.5-15.5); WBC 5.8 k/uL (3.8-10.6)
[2022-07-08 05:23] LABS: Glucose,Whole Blood 131 mg/dL (70-110)
[2022-07-08 05:24] LABS: ABG HCO3 28 mmol/L (21-25); ABG Oxygen Saturation 96.8 % (94-97); ABG PCO2 43 mmHg (35-45); ABG PH 7.42 (7.35-7.45); ABG PO2 75 mmHg (83-108); ABG TCO2 29 mmol/L (19-24); Allen Test Performed? Yes
[2022-07-08] MEDS: POTASSIUM CHLORIDE 10 MEQ in WATER FOR INJECTION 1 100ML.BAG IVPB SCH ×3 (05:34→07:32)
--- NOTE | 2022-07-08 06:07 | XR ---
EXAMINATION TYPE: XR chest 1V portable DATE OF EXAM: 07/08/2022 CLINICAL HISTORY: Difficulty breathing progress study. TECHNIQUE: Single AP portable semiupright view of the chest is obtained. COMPARISON: Chest x-ray from one day earlier and older studies FINDINGS: Stable endotracheal and orogastric tubes. Background chronic emphysematous and parenchymal fibrotic changes with areas of increased opacity nhan aterally greatest in the lower lungs. Silhouetting left hemidiaphragm redemonstrated. Cardiac silhoue tte size stable and within normal limits. Osseous structures are intact. IMPRESSION: Small left greater than right pleural effusions redemonstrated. Bilateral multifocal devin a and/or infiltrates greatest in the lower lungs redemonstrated. No significant change from one day e
[2022-07-08] MEDS: LEVOTHYROXINE 88 MCG TAB PO SCH (06:21)
--- NOTE | 2022-07-08 07:31 | P.PN ---
Subjective Progress Note Date: 07/06/22 Principal diagnosis: Bacteremia Patient is a 67 year old male presenting to the hospital in mental status changes and multiple falls did have a low-grade fever and elevated white count now with evidence of bacteremia. Patient is status post paracentesis with removal of 3 L of ascitic fluid completed on 06/30/2022 On today's evaluation that is 07/06/2022, the patient remains to be afebrile, the patient FiO2 is down to 45%, patient is requiring pressor support however no significant purulent secretion through the ET diarrhea or any other changes reported by the nursing staff Objective - Vital Signs Vital signs: Vital Signs Temp 98.8 F 07/06/22 04:00 Pulse 88 07/06/22 07:52 Resp 22 07/06/22 07:30 BP 128/48 07/06/22 07:30 Pulse Ox 97 07/06/22 07:30 FiO2 20 07/06/22 07:14 Intake & Output 07/05/22 07/06/22 07/06/22 18:59 06:59 18:59 Intake Total 8074.360 7498.496 95 Output Total 1080 160 12 Balance 413.247 7361.496 83 Weight 104.3 kg Intake: IV 600 855 95 Furosemide 100 mg In 135 15 Sodium Chloride 0.9% 90 ml @ 15 MG/HR 15 mls/hr IV .Q6H40M [facility] Rx#: [id number] Mvi, Adult No.4 with Vit 270 30 K 10 ml Trace (Conc-1Ml/ Dose) 1 ml Sodium Acetate 16 meq Sodium Chloride 4Meq/ml Vial 16 meq Calcium Gluconate 1 gm In Amino Acid 5%-D15w 1,000 ml @ 30 mls/hr IV .Q24H [facility] Rx#:[id number] Piperacillin-Tazobactam 3 100 .375 gm In Sodium Chloride 0.9% 100 ml @ 25 mls/hr IVPB Q8HR [facility] Rx# :[id number] Sodium Chloride 0.9% 1, 600 350 50 000 ml @ 50 mls/hr IV . Q20H [facility] Rx#:[id number] Intake, IV Titration 957.190 545.496 Amount Furosemide 100 mg In 88.5 197.5 Sodium Chloride 0.9% 90 ml @ 15 MG/HR 15 mls/hr IV .Q6H40M [facility] Rx#: [id number] Mvi, Adult No.4 with Vit 30 K 10 ml Trace (Conc-1Ml/ Dose) 1 ml Sodium Acetate 16 meq Sodium Chloride 4Meq/ml Vial 16 meq Calcium Gluconate 1 gm In Amino Acid 5%-D15w 1,000 ml @ 30 mls/hr IV .Q24H [facility] Rx#:[id number] Norepinephrine 32 mg In 113.082 147.996 Sodium Chloride 0.9% 218 ml @ 0.05 MCG/KG/MIN 2. 445 mls/hr IV .Q24H [facility] Rx#:[id number] Norepinephrine 4 mg In 458.050 Sodium Chloride 0.9% 250 ml @ 0.05 MCG/KG/MIN 19. 869 mls/hr IV .[id number] [facility] Rx#:[id number] propofoL 1,000 mg In 267.558 200.000 Empty Bag 1 bag @ 5 MCG/ KG/MIN 3.129 mls/hr IV . Q24H [facility] Rx#:[id number] Output: Urine 80 160 12 Hemodialysis 1000 Other: Voiding Method Indwelling Catheter Indwelling Catheter ABP, PAP, CO, CI - Last Documented Arterial Blood Pressure 112/43 - Exam GENERAL DESCRIPTION: An elderly male lying in bed in no distress RESPIRATORY SYSTEM: Unlabored breathing , decreased breath sounds at bases HEART: S1 S2 regular rate and rhythm , ABDOMEN: Soft , no tenderness EXTREMITIES: No edema feet - Labs CBC & Chem 7: 07/08/22 04:41 07/08/22 04:05 Labs: Abnormal Lab Results - Last 24 Hours (Table) 07/05/22 07/05/22 07/05/22 Range/Units 11:40 14:05 14:05 WBC (3.8-10.6) k/uL RBC (4.30-5.90) m/uL Hgb (13.0-17.5) gm/dL Hct (39.0-53.0) % MCV (80.0-100.0) fL Neutrophils # (1.3-7.7) k/uL Monocytes # (0-1.0) k/uL ABG pH (7.35-7.45) ABG pCO2 (35-45) mmHg ABG Total CO2 (19-24) mmol/L ABG O2 Saturation (94-97) % Sodium (137-145) mmol/L Potassium 5.4 H (3.5-5.1) mmol/L BUN (9-20) mg/dL Creatinine (0.66-1.25) mg/dL Glucose (74-99) mg/dL POC Glucose (mg/dL) 134 H (70-110) mg/dL Calcium (8.4-10.2) mg/dL Phosphorus 6.4 H (2.5-4.5) mg/dL Total Bilirubin (0.2-1.3) mg/dL AST (17-59) U/L ALT (4-49) U/L Alkaline Phosphatase (38-126) U/L C-Reactive Protein (<1.0) mg/dL Total Protein (6.3-8.2) g/dL Albumin (3.5-5.0) g/dL Triglycerides 245.00 H (0.00-149.00) mg/dL Procalcitonin (0.02-0.09) ng/mL 07/05/22 07/05/22 07/06/22 Range/Units 17:28 21:24 00:05 WBC (3.8-10.6) k/uL RBC (4.30-5.90) m/uL Hgb (13.0-17.5) gm/dL Hct (39.0-53.0) % MCV (80.0-100.0) fL Neutrophils # (1.3-7.7) k/uL Monocytes # (0-1.0) k/uL ABG pH (7.35-7.45) ABG pCO2 (35-45) mmHg ABG Total CO2 (19-24) mmol/L ABG O2 Saturation (94-97) % Sodium (137-145) mmol/L Potassium (3.5-5.1) mmol/L BUN (9-20) mg/dL Creatinine (0.66-1.25) mg/dL Glucose (74-99) mg/dL POC Glucose (mg/dL) 145 H 191 H 219 H (70-110) mg/dL Calcium (8.4-10.2) mg/dL Phosphorus (2.5-4.5) mg/dL Total Bilirubin (0.2-1.3) mg/dL AST (17-59) U/L ALT (4-49) U/L Alkaline Phosphatase (38-126) U/L C-Reactive Protein (<1.0) mg/dL Total Protein (6.3-8.2) g/dL Albumin (3.5-5.0) g/dL Triglycerides (0.00-149.00) mg/dL Procalcitonin (0.02-0.09) ng/mL 07/06/22 07/06/22 07/06/22 Range/Units 03:35 03:35 03:35 WBC 17.4 H (3.8-10.6) k/uL RBC 3.20 L (4.30-5.90) m/uL Hgb 10.5 L (13.0-17.5) gm/dL Hct 32.6 L (39.0-53.0) % MCV 101.8 H (80.0-100.0) fL Neutrophils # 12.0 H (1.3-7.7) k/uL Monocytes # 1.7 H (0-1.0) k/uL ABG pH (7.35-7.45) ABG pCO2 (35-45) mmHg ABG Total CO2 (19-24) mmol/L ABG O2 Saturation (94-97) % Sodium 135 L (137-145) mmol/L Potassium (3.5-5.1) mmol/L BUN 78 H (9-20) mg/dL Creatinine 3.19 H (0.66-1.25) mg/dL Glucose 203 H (74-99) mg/dL POC Glucose (mg/dL) (70-110) mg/dL Calcium 8.0 L (8.4-10.2) mg/dL Phosphorus 4.7 H (2.5-4.5) mg/dL Total Bilirubin 2.0 H (0.2-1.3) mg/dL AST 1992 H (17-59) U/L ALT 621 H (4-49) U/L Alkaline Phosphatase 132 H (38-126) U/L C-Reactive Protein 2.3 H (<1.0) mg/dL Total Protein 5.9 L (6.3-8.2) g/dL Albumin 3.3 L (3.5-5.0) g/dL Triglycerides (0.00-149.00) mg/dL Procalcitonin 0.50 H (0.02-0.09) ng/mL 07/06/22 07/06/22 Range/Units 05:46 07:01 WBC (3.8-10.6) k/uL RBC (4.30-5.90) m/uL Hgb (13.0-17.5) gm/dL Hct (39.0-53.0) % MCV (80.0-100.0) fL Neutrophils # (1.3-7.7) k/uL Monocytes # (0-1.0) k/uL ABG pH 7.31 L (7.35-7.45) ABG pCO2 47 H (35-45) mmHg ABG Total CO2 25 H (19-24) mmol/L ABG O2 Saturation 97.2 H (94-97) % Sodium (137-145) mmol/L Potassium (3.5-5.1) mmol/L BUN (9-20) mg/dL Creatinine (0.66-1.25) mg/dL Glucose (74-99) mg/dL POC Glucose (mg/dL) 197 H (70-110) mg/dL Calcium (8.4-10.2) mg/dL Phosphorus (2.5-4.5) mg/dL Total Bilirubin (0.2-1.3) mg/dL AST (17-59) U/L ALT (4-49) U/L Alkaline Phosphatase (38-126) U/L C-Reactive Protein (<1.0) mg/dL Total Protein (6.3-8.2) g/dL Albumin (3.5-5.0) g/dL Triglycerides (0.00-149.00) mg/dL Procalcitonin (0.02-0.09) ng/mL Microbiology - Last 24 Hours (Table) 07/04/22 23:20 Gram Stain - Preliminary Sputum Sputum Culture - Preliminary Assessment and Plan (1) Bacteremia Current Visit: Yes Status: Acute Code(s): R78.81 - BACTEREMIA SNOMED Code(s): 5073926 Plan: 1patient with sepsis in this patient who did have a fever elevated white count elevated lactic acid now with evidence of gram-positive bacteremia with a source possible aspiration pneumonia as repeat x-ray did showed increasing density left lower lobe as the patient currently do not have any other obvious focus is abdominal soft on clinical examination no evidence of any joint swelling or cellulitis was noticed. 2blood cultures has been finalized as Streptococcus agalactiae repeat blood cultures have been negative so far 3-repeat CT with evidence of ascites and possible colitis in the left lower quadrant area, patient is status post paracentesis, white count was only 59 and cultures are so far negative 4- Patient with worsening respiratory status requiring intubation possible fluid overload plus minus a component of pneumonia questionable aspiration sputum culture has been obtained which are currently pending, patient is covered with Zosyn white count is trending down and will monitor clinical course closely Time with Patient: Less than 30
--- NOTE | 2022-07-08 07:32 | P.PN ---
Subjective Progress Note Date: 07/07/22 Principal diagnosis: Bacteremia Patient is a 67 year old male presenting to the hospital in mental status changes and multiple falls did have a low-grade fever and elevated white count now with evidence of bacteremia. Patient is status post paracentesis with removal of 3 L of ascitic fluid completed on 06/30/2022 On today's evaluation that is 07/07/2022, the patient continues to be afebrile, the patient FiO2 is down to 40%, patient is requiring less pressor support per the nursing staff and no significant purulent secretion through the ET diarrhea or any other changes reported by the nursing staff Objective - Vital Signs Vital signs: Vital Signs Temp 98.2 F 07/07/22 08:00 Pulse 81 07/07/22 13:00 Resp 24 07/07/22 13:00 BP 128/48 07/07/22 03:00 Pulse Ox 99 07/07/22 13:00 FiO2 40 07/07/22 12:43 Intake & Output 07/06/22 07/07/22 07/07/22 18:59 06:59 18:59 Intake Total 1134.822 5270.870 629 Output Total 2393 765 276 Balance -712.591 677.870 353 Intake: IV 699 1067 479 Furosemide 100 mg In 15 Sodium Chloride 0.9% 90 ml @ 15 MG/HR 15 mls/hr IV .Q6H40M [facility] Rx#: [id number] Mvi, Adult No.4 with Vit 334 517 329 K 10 ml Trace (Conc-1Ml/ Dose) 1 ml Sodium Acetate 16 meq Sodium Chloride 4Meq/ml Vial 16 meq Calcium Gluconate 1 gm In Amino Acid 5%-D15w 1,000 ml @ 30 mls/hr IV .Q24H [facility] Rx#:[id number] Piperacillin-Tazobactam 3 200 100 100 .375 gm In Sodium Chloride 0.9% 100 ml @ 25 mls/hr IVPB Q8HR [facility] Rx# :[id number] Sodium Chloride 0.9% 1, 150 450 50 000 ml @ 50 mls/hr IV . Q20H [facility] Rx#:[id number] Intake, IV Titration 581.409 375.870 Amount Diltiazem 125 mg In 162.333 12.167 Sodium Chloride 0.9% 100 ml @ 5 MG/HR 5 mls/hr IV .Q24H [facility] Rx#:[id number] Norepinephrine 32 mg In 172.013 68.662 Sodium Chloride 0.9% 218 ml @ 0.05 MCG/KG/MIN 2. 445 mls/hr IV .Q24H [facility] Rx#:[id number] propofoL 1,000 mg In 247.063 295.041 Empty Bag 1 bag @ 5 MCG/ KG/MIN 3.129 mls/hr IV . Q24H [facility] Rx#:[id number] Hemodialysis 300 Other 100 150 Output: Gastric Drainage 200 550 100 Urine 193 215 176 Hemodialysis 1999 Other: Voiding Method Indwelling Catheter Indwelling Catheter Indwelling Catheter ABP, PAP, CO, CI - Last Documented Arterial Blood Pressure 134/48 - Exam GENERAL DESCRIPTION: An elderly male intubated on the vent RESPIRATORY SYSTEM: Unlabored breathing , decreased breath sounds at bases HEART: S1 S2 regular rate and rhythm , ABDOMEN: Soft , no tenderness EXTREMITIES: No edema feet - Labs CBC & Chem 7: 07/08/22 04:41 07/08/22 04:05 Labs: Abnormal Lab Results - Last 24 Hours (Table) 07/06/22 07/06/22 07/06/22 Range/Units 17:03 21:04 22:09 ABG pO2 (83-108) mmHg ABG HCO3 (21-25) mmol/L ABG Total CO2 (19-24) mmol/L ABG O2 Saturation (94-97) % Sodium (137-145) mmol/L BUN (9-20) mg/dL Creatinine (0.66-1.25) mg/dL Glucose (74-99) mg/dL POC Glucose (mg/dL) 170 H 168 H 195 H (70-110) mg/dL Calcium (8.4-10.2) mg/dL 07/07/22 07/07/22 07/07/22 Range/Units 04:45 05:47 06:26 ABG pO2 114 H (83-108) mmHg ABG HCO3 26 H (21-25) mmol/L ABG Total CO2 27 H (19-24) mmol/L ABG O2 Saturation 99.4 H (94-97) % Sodium 133 L (137-145) mmol/L BUN 63 H (9-20) mg/dL Creatinine 2.86 H (0.66-1.25) mg/dL Glucose 178 H (74-99) mg/dL POC Glucose (mg/dL) 187 H (70-110) mg/dL Calcium 7.6 L (8.4-10.2) mg/dL 07/07/22 Range/Units 12:03 ABG pO2 (83-108) mmHg ABG HCO3 (21-25) mmol/L ABG Total CO2 (19-24) mmol/L ABG O2 Saturation (94-97) % Sodium (137-145) mmol/L BUN (9-20) mg/dL Creatinine (0.66-1.25) mg/dL Glucose (74-99) mg/dL POC Glucose (mg/dL) 169 H (70-110) mg/dL Calcium (8.4-10.2) mg/dL Microbiology - Last 24 Hours (Table) 07/04/22 23:20 Gram Stain - Final Sputum Sputum Culture - Final Rosanne sp,not albicans/galbr Assessment and Plan (1) Bacteremia Current Visit: Yes Status: Acute Code(s): R78.81 - BACTEREMIA SNOMED Code(s): 3266963 Plan: 1patient with sepsis in this patient who did have a fever elevated white count elevated lactic acid now with evidence of gram-positive bacteremia with a source possible aspiration pneumonia as repeat x-ray did showed increasing density left lower lobe as the patient currently do not have any other obvious focus is abdominal soft on clinical examination no evidence of any joint swelling or cellulitis was noticed. 2blood cultures has been finalized as Streptococcus agalactiae repeat blood cultures have been negative so far 3-repeat CT with evidence of ascites and possible colitis in the left lower quadrant area, patient is status post paracentesis, white count was only 59 and cultures are so far negative 4- Patient with worsening respiratory status requiring intubation possible fluid overload plus minus a component of pneumonia questionable aspiration sputum culture has been obtained which are currently pending, patient white count is trending down requiring less support we will continue with the Zosyn and monitor clinical course closely Time with Patient: Less than 30
[2022-07-08] MEDS: CHLORHEXIDINE GLUCONATE 15 ML CUP MUCOUS MEM SCH ×2 (07:34→20:24)
[2022-07-08] MEDS: ATORVASTATIN 40 MG TAB PO SCH (07:34)
[2022-07-08] MEDS: ENOXAPARIN 30 MG/0.3 ML SYRINGE SQ SCH (07:35)
[2022-07-08] MEDS: FUROSEMIDE 10 MG/ML 10 ML VIAL IV SCH ×2 (07:35→20:24)
[2022-07-08] MEDS: PANTOPRAZOLE 40 MG/10 ML VIAL IVP SCH ×2 (07:35→20:26)
[2022-07-08] MEDS: NICOTINE 14MG/24HR PATCH TRANSDERM SCH (07:35)
[2022-07-08] MEDS: METOPROLOL SUCCINATE (ER) 100 MG TAB.ER.24H PO SCH (07:36)
[2022-07-08] MEDS: SIMETHICONE 40 MG/0.6 ML DROPS 2,000 MG/30 ML BOTTLE PO SCH ×4 (07:36→20:27)
[2022-07-08] MEDS: IPRATROPIUM-ALBUTEROL 3 ML NEB INHALATION SCH ×4 (07:52→19:54)
[2022-07-08 08:05] LABS: Platelet Count 59 k/uL (150-450)
[2022-07-08 08:12] LABS: Eosinophils # (M) 0.23 k/uL (0-0.7); Lymphocytes # (M) 0.87 k/uL (1.0-4.8); Monocytes # (M) 0.52 k/uL (0-1.0); Neutrophils # (M) 4.18 k/uL (1.3-7.7); Neutrophils % (M) 72 %; Nucleated Red Blood Cells 0 /100 WBC (0-0); Total Cells Counted 100
--- NOTE | 2022-07-08 09:29 | P.PN ---
Subjective Patient is seen in follow-up for acute kidney injury. Started on hemodialysis 07/05/2022. Tolerated dialysis well yesterday with 3 L UF. Remains intubated. Off Levophed. Receiving TPN. Urine output about 20-25 mL an hour. Vital signs are stable. General: Resting in bed. HEENT: Intubated. LUNGS: Breath sounds decreased. HEART: Rate and Rhythm are regular. ABDOMEN: Soft, distention noted. EXTREMITITES: 2+ edema. Objective - Vital Signs Vital signs: Vital Signs Temp 98.7 F 07/08/22 04:00 Pulse 97 07/08/22 08:15 Resp 24 07/08/22 07:00 BP 128/48 07/07/22 19:00 Pulse Ox 97 07/08/22 07:00 FiO2 30 07/08/22 07:53 Intake & Output 07/07/22 07/08/22 07/08/22 18:59 06:59 18:59 Intake Total 797.039 526.442 60 Output Total 6341 190 30 Balance -5543.961 336.442 30 Intake: IV 579 378 60 0.9 @ 10 110 10 Mvi, Adult No.4 with Vit 329 K 10 ml Trace (Conc-1Ml/ Dose) 1 ml Sodium Acetate 16 meq Sodium Chloride 4Meq/ml Vial 16 meq Calcium Gluconate 1 gm In Amino Acid 5%-D15w 1,000 ml @ 30 mls/hr IV .Q24H [facility] Rx#:[id number] Mvi, Adult No.4 with Vit 235 47 K 10 ml Trace (Conc-1Ml/ Dose) 1 ml Sodium Acetate 40 meq Calcium Gluconate 1 gm In Amino Acid 5%- D15w 1,000 ml @ 47 mls/hr IV .Q22H9M [facility] Rx#: [id number] Piperacillin-Tazobactam 3 200 .375 gm In Sodium Chloride 0.9% 100 ml @ 25 mls/hr IVPB Q8HR [facility] Rx# :[id number] Pressure bag 33 3 Sodium Chloride 0.9% 1, 50 000 ml @ 50 mls/hr IV . Q20H [facility] Rx#:[id number] Intake, IV Titration 68.039 148.442 0 Amount Mvi, Adult No.4 with Vit 141 K 10 ml Trace (Conc-1Ml/ Dose) 1 ml Sodium Acetate 40 meq Calcium Gluconate 1 gm In Amino Acid 5%- D15w 1,000 ml @ 47 mls/hr IV .Q22H9M [facility] Rx#: [id number] Norepinephrine 32 mg In 68.039 7.442 0 Sodium Chloride 0.9% 218 ml @ 0.05 MCG/KG/MIN 2. 445 mls/hr IV .Q24H [facility] Rx#:[id number] Other 150 Output: Gastric Drainage 100 Urine 241 190 30 Hemodialysis 3000 Other 3000 Other: Voiding Method Indwelling Catheter Indwelling Catheter ABP, PAP, CO, CI - Last Documented Arterial Blood Pressure 109/40 - Labs CBC & Chem 7: 07/08/22 04:41 07/08/22 04:05 Labs: Abnormal Lab Results - Last 24 Hours (Table) 07/07/22 07/07/22 07/08/22 Range/Units 12:03 17:45 00:01 RBC (4.30-5.90) m/uL Hgb (13.0-17.5) gm/dL Hct (39.0-53.0) % MCV (80.0-100.0) fL Plt Count (150-450) k/uL Lymphocytes # (Manual) (1.0-4.8) k/uL ABG pO2 (83-108) mmHg ABG HCO3 (21-25) mmol/L ABG Total CO2 (19-24) mmol/L Sodium (137-145) mmol/L Potassium (3.5-5.1) mmol/L BUN (9-20) mg/dL Creatinine (0.66-1.25) mg/dL Glucose (74-99) mg/dL POC Glucose (mg/dL) 169 H 171 H 180 H (70-110) mg/dL Calcium (8.4-10.2) mg/dL Total Bilirubin (0.2-1.3) mg/dL AST (17-59) U/L ALT (4-49) U/L Alkaline Phosphatase (38-126) U/L Ammonia (<30) umol/L Total Protein (6.3-8.2) g/dL Albumin (3.5-5.0) g/dL 07/08/22 07/08/22 07/08/22 Range/Units 04:05 04:05 04:41 RBC 2.86 L (4.30-5.90) m/uL Hgb 9.2 L (13.0-17.5) gm/dL Hct 28.8 L (39.0-53.0) % MCV 100.7 H (80.0-100.0) fL Plt Count 59 L D (150-450) k/uL Lymphocytes # (Manual) 0.87 L (1.0-4.8) k/uL ABG pO2 (83-108) mmHg ABG HCO3 (21-25) mmol/L ABG Total CO2 (19-24) mmol/L Sodium 134 L (137-145) mmol/L Potassium 3.3 L (3.5-5.1) mmol/L BUN 57 H (9-20) mg/dL Creatinine 2.88 H (0.66-1.25) mg/dL Glucose 131 H (74-99) mg/dL POC Glucose (mg/dL) (70-110) mg/dL Calcium 7.7 L (8.4-10.2) mg/dL Total Bilirubin 1.8 H (0.2-1.3) mg/dL AST 658 H (17-59) U/L ALT 378 H (4-49) U/L Alkaline Phosphatase 128 H (38-126) U/L Ammonia 34 H (<30) umol/L Total Protein 5.4 L (6.3-8.2) g/dL Albumin 2.6 L (3.5-5.0) g/dL 07/08/22 07/08/22 Range/Units 05:21 05:22 RBC (4.30-5.90) m/uL Hgb (13.0-17.5) gm/dL Hct (39.0-53.0) % MCV (80.0-100.0) fL Plt Count (150-450) k/uL Lymphocytes # (Manual) (1.0-4.8) k/uL ABG pO2 75 L (83-108) mmHg ABG HCO3 28 H (21-25) mmol/L ABG Total CO2 29 H (19-24) mmol/L Sodium (137-145) mmol/L Potassium (3.5-5.1) mmol/L BUN (9-20) mg/dL Creatinine (0.66-1.25) mg/dL Glucose (74-99) mg/dL POC Glucose (mg/dL) 131 H (70-110) mg/dL Calcium (8.4-10.2) mg/dL Total Bilirubin (0.2-1.3) mg/dL AST (17-59) U/L ALT (4-49) U/L Alkaline Phosphatase (38-126) U/L Ammonia (<30) umol/L Total Protein (6.3-8.2) g/dL Albumin (3.5-5.0) g/dL Microbiology - Last 24 Hours (Table) 07/04/22 23:20 Gram Stain - Final Sputum Sputum Culture - Final Rosanne sp,not albicans/galbr Assessment and Plan Plan: Assessment: 1. Acute kidney injury secondary to septic ATN and hypotension. Urine output 20 mL an hour. Baseline creatinine near 1. Started on hemodialysis 07/05/2022. 2. Hyperkalemia secondary to acute kidney injury. Improved postdialysis. Potassium now low and was replaced. 3. Shock status post Levophed. 4. Group B strep bacteremia and ?pneumonia on antibiotics. ID following. 5. Volume overload. 6. Liver cirrhosis. 7. Ascites status post paracentesis on 07/01/2022 to 3.6 L drained. 8. A. fib with RVR s/p Cardizem drip. Cardiology following. 9. Hyperphosphatemia secondary to acute kidney injury. Improved postdialysis. Phosphorus level 3.5 today. 10. Respiratory and metabolic acidosis. Improved. Plan: Currently seen while undergoing hemodialysis - 3K bath today. Continue with daily dialysis for now mostly for ultrafiltration. Maintain IV Lasix. TPN per surgery. Wean FiO2 and vasopressors. Continue to monitor renal function and urine output. Monitor for renal recovery. Phosphorus 3.5 today. May need another paracentesis - will give 25 g IV albumin before procedure
[2022-07-08 11:54] LABS: Glucose,Whole Blood 127 mg/dL (70-110)
[2022-07-08] MEDS: NOREPINEPHRINE 32 MG in SODIUM CHLORIDE 0.9% 218 ML IV SCH (12:09)
--- NOTE | 2022-07-08 12:14 | P.PN ---
Subjective Progress Note Date: 07/08/22 Principal diagnosis: Acute hypoxic and acute hypercapnic respiratory failure, acute metabolic encephalopathy, gram-positive sepsis On 06/24/2022 patient seen in follow-up in the intensive care unit. Patient is sedated, currently on Precedex at 0.5 mics per kilo per hour. He is on Precedex at 5 mg per hour. Lactated Ringer's at 75 ML per hour, remains sedated, very confused. No signs of any respiratory distress, he is on 4 L of oxygen per nasal cannula with pulse ox of 95%, his been afebrile, in sinus mechanism, rate is 79 BPM. His blood pressure is better controlled with Cleviprex infusion. It is currently 141/75. MRI of the brain was completed last night showing no evidence of a recent infarct, mild diffuse age-related cerebral atrophy and chronic small vessel ischemic changes. No abnormal enhancement was noted. Today's labs have been reviewed, white blood cell count is 20.0, hemoglobin is 12.7, INR is 1.4, sodium is 134, potassium is 4.8, chloride is 109, BUN is 65 creatinine 0.76. Last night's blood gas was also reviewed showing pO2 of 72, pCO2 of 32, and pH of 7.48. This was done on FiO2 of 32%. CTA chest a few days ago showed no evidence of pulmonary embolism, showed interstitial infiltrate and atelectasis, no suspicious pulmonary mass. EEG showed no focal slowing, epileptiform discharge or seizure. Echocardiogram showed EF of 60-65%. Blood culture showed strep agalactiae, group B. Follow-up blood cultures have shown no growth thus far. ID service is following, patient remains on cefazolin 2 g every 8 hours. Last night patient developed GI bleeding, and passed of a very large maroon-colored stool. Today's hemoglobin is 12.7 which is down from 14 from yesterday, platelet count is 141, INR is 1.4. GI service has been consulted for evaluation. 07/03/2022, abdomen is still distended. The patient was having liquidy stool yesterday and this has subsided on today. He is passing some gas. There is positive tympany and there is probably an underlying ileus. No significant pain. Currently is back in bed. He is on oxygen on 5 L per minute nasal cannula. Labs are still pending for now. There was a concern of an elevated creatinine was up to 2.2 from yesterday and this is to be repeated. BUN is at 78 from yesterday. He is afebrile. He is hemodynamically stable. The patient remains on IV Unasyn. In terms of laxatives, these are all on hold for now. Ascitic fluid the ascitic fluid cultures are still negative. Reevaluated today on 07/04/22, patient is quite lethargic, I saw him on the regular medical floor, patient is on BiPAP with IPAP of 12 EPAP of 6 and 60% FiO2. ABG showed a pO2 of 76 pCO2 of 91 pH of 7.11, hence I recommended transferring the patient to ICU. Patient continues to have leukocytosis with WBC of 18.9 hemoglobin is 9.7. Renal functioning remains abnormal with a BUN of 70 creatinine 1.6. Blood sugar is 142. Blood cultures were positive for strep agalactiae group B, his fluid cultures from the abdomen remain negative so far. Family is at bedside, patient is quite lethargic, hence I recommended transferring the patient to the ICU. Abdominal ultrasound showed mild abdominal ascites, chest x-ray continues to show interstitial infiltrates especially at the left base, consistent with atypical pulmonary edema, doubt pneumonia although aspiration pneumonia could also be considered. Patient remains on Unasyn. Patient is also on Lasix 40 mg IV push twice a day. Reevaluated today on 07/05/2022, patient had a deterioration in his clinical status yesterday after he was transferred to the ICU, and early evening, his condition continued to deteriorate, patient did not seem to improve with BiPAP, and his ABG seems to be not improving. Continue to remain more lethargic hence, around 10 PM I recommended intubation and mechanical ventilation. Today the patient is mechanically ventilated. He is on assist control rate of 22 total volume 500 FiO2 50% and PEEP of 5. His ABG earlier on assist control rate of 16 showed a pO2 of 101 pCO2 of 61 pH of 7.16. Patient developed significant oligoria, and I had to place the patient on Lasix now he is on 15 mg per hour, he was on 10 mg overnight. He is also requiring norepinephrine at 0.36 mcg/kg/m. Propofol at 40 mcg/kg/m. Remains on antibiotics in the form of Unasyn. IV fluid is at 50 mL per hour and cutting down to KVO since the chest x-ray is showing evidence of pulmonary edema. Patient remains oliguric and he was seen by nephrology today, the patient may be heading to possible hemodialysis. His urine output at present is 5-10 mL per hour in spite of Lasix drip. His liver enzymes are getting worse. His leukocytosis is getting worse. And I went ahead today and placed a right femoral triple-lumen catheter for norepinephrine infusion. WBC count today is 25.5, hemoglobin is 11, BUN is 78 creatinine 2.47. Liver enzymes are elevated with elevated total bilirubin of 2.0 AST of 541 AST of 147, ammonia level yesterday was 38. Chest x-ray today is showing evidence of pulmonary edema, underlying pneumonia is not entirely excluded. Reevaluated today on 07/06/22, remains in the ICU, intubated and mechanically ventilated. Patient is on assist control rate of 22 total volume 500 FiO2 50% and PEEP of 5. Patient underwent renal replacement therapy yesterday, and he tolerated that quite well. His ABG today showed a pO2 of 87 pCO2 47 pH of 7.31. And his FiO2 was cut down to 45%. Rate was increased to 24. Patient remains on multiple drips including Cardizem at 10 mg per hour, norepinephrine at 0.34 propofol at 50 mcg/kg/m and he is on saline at 50 mL per hour. Patient is not responsive to any stimuli, however the patient will be off propofol today, and we will assess mental status. Patient has been encephalopathic all along since admission. And I recommended cutting down Cardizem to 5 mg per hour. Chest x- ray is showing improvement in his pulmonary edema, WBC count of 17.4 hemoglobin is 10.5. Basic metabolic profile is normal except for BUN of 78 creatinine 3.19, and his urine output is very poor patient is relatively oligoric liver enzymes are elevated, pro-calcitonin is also elevated. Reevaluated today on 07/07/2022, patient remains in the ICU, intubated and mechanically ventilated. He is presently on assist control rate of 24 to volume 500 FiO2 40% and PEEP of 5 ABG showed a pO2 of 114 pCO2 42 pH of 7.39 and this was on 45% FiO2 earlier. Patient remains on TPN remains on a very small tiny dose of norepinephrine at 0.02, and his propofol has been off for the last hour before I saw him still the patient is not showing any responses and I plan to give him a sedation holiday and addressed mental status today. Patient remains on hemodialysis, he is intermittently in atrial flutter and that being addressed by cardiology on the case, Cardizem is off presently he continues to have a nasogastric tube in place, and 1100 mL overnight noted from the nasogastric tube. Abdomen is a bit distended, ordered an ultrasound of the abdomen to assess of the patient may benefit from paracentesis again. Chest x-ray is showing improvement in his interstitial edema. His labs today showed relatively normal electrolytes however his BUN is 63 creatinine 2.86, pro-calcitonin 0.50 Reevaluated today on 07/08/22, remains in the ICU intubated and mechanically ventilated. Patient is now on assist control rate of 24-500 FiO2 30% PEEP of 5 ABG showed a pO2 of 75 pCO2 43 pH of 7.42 patient remains on 30% FiO2. He is on TPN at 47 mL/h is also on Zosyn empirically. His abdomen remains distended and the patient continues to have ascites, I'm recommending interventional radiology to evaluate for possible paracentesis again on this patient. Patient has been off propofol since yesterday, he is arousable, opens his eyes, wiggling his toes, but remains very generally weak. We'll continue to hold propofol. In the meantime patient is not quite ready for weaning trials, but that is to be considered down the line. Patient remains on dialysis. Labs today showed relatively normal electrolytes, BMI 57 creatinine 2.88. CBC is relatively unremarkable. Chest x-ray continues to show mild interstitial edema, and small left and right pleural effusion Objective - Vital Signs Vital signs: Vital Signs Temp 98.7 F 07/08/22 04:00 Pulse 111 H 07/08/22 11:36 Resp 26 H 07/08/22 11:00 BP 82/40 07/08/22 09:30 Pulse Ox 95 07/08/22 11:00 FiO2 30 07/08/22 11:21 Intake & Output 07/07/22 07/08/22 07/08/22 18:59 06:59 18:59 Intake Total 797.039 526.442 300.703 Output Total 6341 190 130 Balance -5543.961 336.442 170.703 Weight 104.3 kg Intake: IV 579 378 199 0.9 @ 10 110 40 Mvi, Adult No.4 with Vit 329 K 10 ml Trace (Conc-1Ml/ Dose) 1 ml Sodium Acetate 16 meq Sodium Chloride 4Meq/ml Vial 16 meq Calcium Gluconate 1 gm In Amino Acid 5%-D15w 1,000 ml @ 30 mls/hr IV .Q24H [facility] Rx#:[id number] Mvi, Adult No.4 with Vit 235 47 K 10 ml Trace (Conc-1Ml/ Dose) 1 ml Sodium Acetate 40 meq Calcium Gluconate 1 gm In Amino Acid 5%- D15w 1,000 ml @ 47 mls/hr IV .Q22H9M [facility] Rx#: [id number] Piperacillin-Tazobactam 3 200 100 .375 gm In Sodium Chloride 0.9% 100 ml @ 25 mls/hr IVPB Q8HR [facility] Rx# :[id number] Pressure bag 33 12 Sodium Chloride 0.9% 1, 50 000 ml @ 50 mls/hr IV . Q20H [facility] Rx#:[id number] Intake, IV Titration 68.039 148.442 101.703 Amount Mvi, Adult No.4 with Vit 141 K 10 ml Trace (Conc-1Ml/ Dose) 1 ml Sodium Acetate 40 meq Calcium Gluconate 1 gm In Amino Acid 5%- D15w 1,000 ml @ 47 mls/hr IV .Q22H9M [facility] Rx#: [id number] Norepinephrine 32 mg In 68.039 7.442 1.703 Sodium Chloride 0.9% 218 ml @ 0.05 MCG/KG/MIN 2. 445 mls/hr IV .Q24H [facility] Rx#:[id number] Potassium Chloride 10 meq 100 In Water For Injection 1 100ml.bag @ 100 mls/hr IVPB Q1H [facility] Rx#: [id number] Other 150 Output: Gastric Drainage 100 Urine 241 190 130 Hemodialysis 3000 Other 3000 Other: Voiding Method Indwelling Catheter Indwelling Catheter Indwelling Catheter ABP, PAP, CO, CI - Last Documented Arterial Blood Pressure 119/54 - Exam GENERAL EXAM: 67-year-old white male, intubated and mechanically ventilated. Arousable but generally weak off propofol. HEAD: Normocephalic/atraumatic. Endotracheal tube and orogastric tube are intact. HEENT: PERRLA, EOMI, anicteric, neck masses, no JVD. CHEST: No chest wall deformity. Symmetrical expansion. LUNGS: Minimal crackles at the bases no rhonchi and no wheezes CVS: Regular rate and rhythm, normal S1 and S2, no gallops, no murmurs, no rubs ABDOMEN: Slightly distended, soft nontender, positive ascites. EXTREMITIES: No clubbing, 2+ bipedal edema, no cyanosis, 2+ pulses and upper and lower extremities. SKIN: No rashes CENTRAL NERVOUS SYSTEM: Arousable, opens eyes, wiggles toes, but generally weak. Psychiatric: Cannot assess remains sedated - Labs CBC & Chem 7: 07/08/22 04:41 07/08/22 04:05 Labs: Abnormal Lab Results - Last 24 Hours (Table) 07/07/22 07/08/22 07/08/22 Range/Units 17:45 00:01 04:05 RBC (4.30-5.90) m/uL Hgb (13.0-17.5) gm/dL Hct (39.0-53.0) % MCV (80.0-100.0) fL Plt Count (150-450) k/uL Lymphocytes # (Manual) (1.0-4.8) k/uL ABG pO2 (83-108) mmHg ABG HCO3 (21-25) mmol/L ABG Total CO2 (19-24) mmol/L Sodium 134 L (137-145) mmol/L Potassium 3.3 L (3.5-5.1) mmol/L BUN 57 H (9-20) mg/dL Creatinine 2.88 H (0.66-1.25) mg/dL Glucose 131 H (74-99) mg/dL POC Glucose (mg/dL) 171 H 180 H (70-110) mg/dL Calcium 7.7 L (8.4-10.2) mg/dL Total Bilirubin 1.8 H (0.2-1.3) mg/dL AST 658 H (17-59) U/L ALT 378 H (4-49) U/L Alkaline Phosphatase 128 H (38-126) U/L Ammonia (<30) umol/L Total Protein 5.4 L (6.3-8.2) g/dL Albumin 2.6 L (3.5-5.0) g/dL 07/08/22 07/08/22 07/08/22 Range/Units 04:05 04:41 05:21 RBC 2.86 L (4.30-5.90) m/uL Hgb 9.2 L (13.0-17.5) gm/dL Hct 28.8 L (39.0-53.0) % MCV 100.7 H (80.0-100.0) fL Plt Count 59 L D (150-450) k/uL Lymphocytes # (Manual) 0.87 L (1.0-4.8) k/uL ABG pO2 (83-108) mmHg ABG HCO3 (21-25) mmol/L ABG Total CO2 (19-24) mmol/L Sodium (137-145) mmol/L Potassium (3.5-5.1) mmol/L BUN (9-20) mg/dL Creatinine (0.66-1.25) mg/dL Glucose (74-99) mg/dL POC Glucose (mg/dL) 131 H (70-110) mg/dL Calcium (8.4-10.2) mg/dL Total Bilirubin (0.2-1.3) mg/dL AST (17-59) U/L ALT (4-49) U/L Alkaline Phosphatase (38-126) U/L Ammonia 34 H (<30) umol/L Total Protein (6.3-8.2) g/dL Albumin (3.5-5.0) g/dL 07/08/22 07/08/22 Range/Units 05:22 11:53 RBC (4.30-5.90) m/uL Hgb (13.0-17.5) gm/dL Hct (39.0-53.0) % MCV (80.0-100.0) fL Plt Count (150-450) k/uL Lymphocytes # (Manual) (1.0-4.8) k/uL ABG pO2 75 L (83-108) mmHg ABG HCO3 28 H (21-25) mmol/L ABG Total CO2 29 H (19-24) mmol/L Sodium (137-145) mmol/L Potassium (3.5-5.1) mmol/L BUN (9-20) mg/dL Creatinine (0.66-1.25) mg/dL Glucose (74-99) mg/dL POC Glucose (mg/dL) 127 H (70-110) mg/dL Calcium (8.4-10.2) mg/dL Total Bilirubin (0.2-1.3) mg/dL AST (17-59) U/L ALT (4-49) U/L Alkaline Phosphatase (38-126) U/L Ammonia (<30) umol/L Total Protein (6.3-8.2) g/dL Albumin (3.5-5.0) g/dL Microbiology - Last 24 Hours (Table) 07/04/22 23:20 Gram Stain - Final Sputum Sputum Culture - Final Rosanne sp,not albicans/galbr Assessment and Plan Assessment: Impression: gram-positive bacteremia, noted on his initial presentation. Acute hypoxic and hypercapnic respiratory failure requiring BiPAP. Patient failed BiPAP, and he was intubated on 07/04/2022 Ascites, status post paracentesis, cultures are negative Acute ileus. Acute metabolic encephalopathy secondary to CO2 narcosis. Acute GI bleeding, presently inactive. Acute kidney injury secondary to sepsis. This is associated with oliguria. Patient is now on hemodialysis Multiple falls at home. History of opiate dependence History of underlying COPD/chronic bronchial asthma, unspecified. Chronic back pain. Generalized anxiety disorder. Status post paracentesis on 06/30/2022, 3.6 L removed. Recommendation: Consult interventional radiology again for possible paracentesis again. Continue ventilatory support Continue daily interruption of sedation presently is on propofol, and seems to be waking up better this morning. Hemodynamic support if needed, Continue Zosyn. Continue hemodialysis Monitor in the ICU. Continue TPN GI and DVT prophylaxis. Patient remains critically ill. Prognosis is extremely guarded. Critical care time is over 30 minutes. Time with Patient: Greater than 30
[2022-07-08] MEDS: MVI, ADULT NO.4 WITH VIT K 10 ML, TRACE (CONC-1ML/DOSE) 1 ML, SODIUM ACETATE 40 MEQ, CA... IV SCH ×5 (13:17)
--- NOTE | 2022-07-08 14:45 | P.PN ---
Subjective Progress Note Date: 07/07/22 Ag Souza, is a 67-year-old male who presented to [facility] emergency room after having a multiple falls at home, has significant mental status changes with somnolence and poor responsiveness, history per his , over the last 24 hours patient has been not feeling well, he fell twice at home, on the second time she was not able to wake him up and get him up from the floor through the bed, she called EMS and he was brought into emergency room. He was evaluated in the emergency room vital examination on presentation revealed a temperature of 97.3 pulse 82 respiration 16 blood pressure 121/67 pulse ox 97% on room air Laboratory data revealed a white blood count of 23.2 hemoglobin 14.4 platelet count 98,000 sodium 129 potassium 4.9 chloride 96 CO2 25 BUN 51 creatinine 2.24 troponin level was 0.02 COVID-19 testing was negative Testing in the emergency room revealed chest x-ray done in the emergency room did not reveal significant abnormality. Patient has a known history of degenerative disc disease with chronic pain maintained on narcotics for pain management he was given Narcan in the emergency room which led to improvement in his mental status. Patient was admitted to medical floor for further evaluation and treatment. On 06/22/2022 patient was seen and examined on the telemetry floor he is still somnolent, agitated, pulling on his IV line, he was started through the night on IV Ativan, vital examination reveals a temperature of 98.4 pulse 132 respiration 24 blood pressure 172/91 pulse ox 96% on 2 L nasal cannula, white blood count is 21.9 hemoglobin 14.8 platelet count 118 d-dimer was elevated at 2.12 at this time will start patient on IV heparin high-intensity for possible pulmonary embolism, his kidney function is still elevated, will defer computed tomography scan this time, he is not cooperative to proceed with VQ scan, will continue with IV fluid, nephrology consultation and infectious disease consultation were requested. On 06/23/2022 patient was seen and examined in the ICU he is more alert and oriented today vital exam reveals a temperature of 98.2 pulse 86 respiration 23 blood pressure 138/79 pulse ox 93% on 2 L nasal cannula white blood count is down to 15.4 hemoglobin 13.2 platelet count 125 kidney function improved with BUN at 66 and creatinine at 0.89 kidney ultrasound was done and revealed no evidence of renal stones or obstruction, CT angiogram of the chest was done and there was no evidence of pulmonary embolism, blood culture were positive for Streptococcus group b , patient is currently maintained on IV Unasyn, IV vanc omycin and IV acyclovir, cardiology, pulmonary, nephrology, neurology and infectious disease are following On 06/24/2022 patient was seen and examined in the ICU he is more alert and oriented today kidney ultrasound was done and revealed no evidence of renal stones or obstruction, CT angiogram of the chest was done and there was no evidence of pulmonary embolism, blood culture were positive for Streptococcus group b , patient is currently maintained on IV Unasyn, IV vancomycin and IV acyclovir, cardiology, pulmonary, nephrology, neurology and infectious disease are following. Patient had a maroon colored stools through the night, GI consultation is not available this week, surgical consultation was requested for evaluation for possible GI bleed On 06/25/2022 patient was seen and examined in the ICU, he is more alert and responsive today, there is no fever or chills no headache or dizziness no chest pain no shortness of breath no cough no nausea or vomiting no abdominal pain no diarrhea and no urinary symptoms. IV heparin has been discontinued, at this time will start subcu Lovenox for DVT prophylaxis, he remains on IV antibiotics cefazolin 2 g IV every 8 hours. On 06/26/2022 patient was seen and examined in the ICU he is alert and oriented 3 in no apparent distress he is complaining of abdominal discomfort otherwise he denies any complaint at this time there is no fever or chills no headache or dizziness no chest pain no shortness of breath no cough no nausea or vomiting no diarrhea no blood in the stools no burning with urination no frequency or urgency and no hematuria. On 06/27/2022 patient was seen and examined on in the ICU he is alert and oriented 3, he is feeling better, he had multiple bowel movements and his abdominal pain has improved, he is still complaining of difficulty sleeping at night otherwise he denies any complaints there is no fever or chills no headache or dizziness no chest pain no shortness of breath no cough no nausea or vomiting no abdominal pain no diarrhea no blood in the stools no burning with urination no frequency or urgency and no hematuria. On 06/28/2022 patient was seen and examined on the medical floor he is alert and oriented 3 in no distress there is no fever or chills no headache or dizziness no chest pain no shortness of breath no cough no nausea or vomiting no abdominal pain no diarrhea, no blood in the stools no burning with urination no frequency or urgency and no hematuria patient has generalized weakness he is improving gradually will continue to follow closely physical therapy is following On 06/29/2022 patient was seen and examined on the medical floor he is alert and oriented 3 in no apparent distress there is no fever or chills no headache or dizziness no chest pain no shortness of breath no cough no nausea or vomiting he is complaining of abdominal discomfort with abdominal distention no diarrhea or constipation no blood in the stools no burning with urination no frequency or urgency and no hematuria. At this time patient is scheduled for computed tomography scan of the abdomen and pelvis will continue to monitor closely. On 06/30/2022 patient was seen and examined on the telemetry floor he is alert and oriented 3 in no apparent distress he is complaining now of severe neck gina n and back pain and requesting [place], patient underwent paracentesis today, 3.5 L of fluid were removed, otherwise patient denies any other symptoms there is no fever or chills no headache or dizziness no chest pain no shortness of breath no cough no nausea or vomiting no abdominal pain no diarrhea and no urinary symptoms On 07/01/2022 patient was seen and examined on the medical floor he is alert and oriented 3 in no apparent distress he is complaining of abdominal discomfort and distention otherwise he denies any complaints at this time there is no fever or chills no headache or dizziness no chest pain no shortness of breath no cough no nausea or vomiting no diarrhea no blood in the stools no burning with urination no frequency or urgency and no hematuria On 07/02/2022 patient was seen and examined on the medical floor he is alert and oriented 3 in no apparent distress he is complaining of abdominal discomfort and distention, he is complaining of bilateral hip pain, he received 1 dose of lactulose and had multiple episodes of diarrhea afterwards lactulose was discontinued, otherwise he denies any complaints at this time there is no fever or chills no headache or dizziness no chest pain no shortness of breath no cough no nausea or vomiting no blood in the stools no burning with urination no frequency or urgency and no hematuria. On 07/03/2022 patient was seen and examined the medical he is alert and oriented he is complaining of abdominal distention was discomfort and shortness of breath otherwise he denies any complaints there is no fever or chills no headache or dizziness no chest pain no cough no nausea or vomiting no urinary symptoms On 07/04/2022 patient was seen and examined in the ICU he is more lethargic today he was started on BiPAP and transferred to ICU today ammonia level is elevated at 38 there is no fever or chills no headache or dizziness no chest pain patient has significant distention in the abdomen, no nausea or vomiting no diarrhea, Russo catheter is in. On 07/05/2022 patient was seen and examined in the ICU at this time he is intubated sedated maintained on mechanical ventilation, currently he is on assist control rate of 20 to FiO2 50% and PEEP of 5 he had a dialysis catheter placed and a session of hemodialysis is scheduled for this afternoon, patient is maintained on norepinephrine drip, white blood count is up to 25,000 hemoglobin is 11 BUN is up to 78 and creatinine 2.47 patient is maintained on IV Zosyn infectious disease are following, prognosis is guarded will continue with aggressive management at this time and sister are at the bedside and are aware of patient's condition. On 07/06/2022 patient was seen and examined in the ICU he is intubated sedated maintained on mechanical ventilation assist control rate 22 FiO2 50% with PEEP of 5 he was started on hemodialysis yesterday he is still IV antibiotic and IV fluid and norepinephrine temperature of 97.7 pulse 96 respiration 24 blood pressure 128/48 sodium 135 potassium 4.4 chloride 101 CO2 22 BUN 78 creatinine 3.19 white blood count 17.4 hemoglobin 10.5 platelet count 167 On 07/07/2022 patient was seen and examined in the ICU he is intubated sedated maintained on mechanical ventilation, he is maintained on assist control FiO2 40% feet 058 arterial blood gas is improving is maintained on TPN he is maintained on IV antibiotics he is maintained on hemodialysis vital exam reveals a temperature of 97.2 pulse 75 respiration 24 blood pressure 128/48 pulse ox 100% BUN is 63 creatinine 2.86 Objective - Vital Signs Vital signs: Vital Signs Temp 97.2 F L 07/07/22 04:00 Pulse 75 07/07/22 08:08 Resp 24 07/07/22 07:00 BP 128/48 07/07/22 03:00 Pulse Ox 100 07/07/22 07:00 FiO2 40 07/07/22 07:53 Intake & Output 07/06/22 07/07/22 07/07/22 18:59 06:59 18:59 Intake Total 8687.095 1686.870 97 Output Total 2393 765 121 Balance -712.591 677.870 -24 Intake: IV 699 1067 97 Furosemide 100 mg In 15 Sodium Chloride 0.9% 90 ml @ 15 MG/HR 15 mls/hr IV .Q6H40M [facility] Rx#: [id number] Mvi, Adult No.4 with Vit 334 517 47 K 10 ml Trace (Conc-1Ml/ Dose) 1 ml Sodium Acetate 16 meq Sodium Chloride 4Meq/ml Vial 16 meq Calcium Gluconate 1 gm In Amino Acid 5%-D15w 1,000 ml @ 30 mls/hr IV .Q24H [facility] Rx#:[id number] Piperacillin-Tazobactam 3 200 100 .375 gm In Sodium Chloride 0.9% 100 ml @ 25 mls/hr IVPB Q8HR [facility] Rx# :[id number] Sodium Chloride 0.9% 1, 150 450 50 000 ml @ 50 mls/hr IV . Q20H [facility] Rx#:[id number] Intake, IV Titration 581.409 375.870 Amount Diltiazem 125 mg In 162.333 12.167 Sodium Chloride 0.9% 100 ml @ 5 MG/HR 5 mls/hr IV .Q24H [facility] Rx#:[id number] Norepinephrine 32 mg In 172.013 68.662 Sodium Chloride 0.9% 218 ml @ 0.05 MCG/KG/MIN 2. 445 mls/hr IV .Q24H [facility] Rx#:[id number] propofoL 1,000 mg In 247.063 295.041 Empty Bag 1 bag @ 5 MCG/ KG/MIN 3.129 mls/hr IV . Q24H [facility] Rx#:[id number] Hemodialysis 300 Other 100 Output: Gastric Drainage 200 550 100 Urine 193 215 21 Hemodialysis 2000 Other: Voiding Method Indwelling Catheter Indwelling Catheter ABP, PAP, CO, CI - Last Documented Arterial Blood Pressure 151/46 - Exam In general patient is alert and responsive in no apparent distress HEENT head normocephalic and atraumatic Neck is supple no JVD no goiter no lymphadenopathy no carotid bruit Chest examination is clear to auscultation no crackles no wheezing Cardiac exam reveals regular heart sounds S1 and S2 no gallops no murmurs Abdomen is distended with generalized tenderness, no organomegaly Extremity exam reveals no edema no cyanosis or clubbing Neurological examination reveals no gross focal deficits - Labs CBC & Chem 7: 07/08/22 04:41 07/08/22 04:05 Labs: Abnormal Lab Results - Last 24 Hours (Table) 07/06/22 07/06/22 07/06/22 Range/Units 03:35 11:26 17:03 ABG pO2 (83-108) mmHg ABG HCO3 (21-25) mmol/L ABG Total CO2 (19-24) mmol/L ABG O2 Saturation (94-97) % Sodium (137-145) mmol/L BUN (9-20) mg/dL Creatinine (0.66-1.25) mg/dL Glucose (74-99) mg/dL POC Glucose (mg/dL) 164 H 170 H (70-110) mg/dL Calcium (8.4-10.2) mg/dL Procalcitonin 0.50 H (0.02-0.09) ng/mL 07/06/22 07/06/22 07/07/22 Range/Units 21:04 22:09 04:45 ABG pO2 (83-108) mmHg ABG HCO3 (21-25) mmol/L ABG Total CO2 (19-24) mmol/L ABG O2 Saturation (94-97) % Sodium 133 L (137-145) mmol/L BUN 63 H (9-20) mg/dL Creatinine 2.86 H (0.66-1.25) mg/dL Glucose 178 H (74-99) mg/dL POC Glucose (mg/dL) 168 H 195 H (70-110) mg/dL Calcium 7.6 L (8.4-10.2) mg/dL Procalcitonin (0.02-0.09) ng/mL 07/07/22 07/07/22 Range/Units 05:47 06:26 ABG pO2 114 H (83-108) mmHg ABG HCO3 26 H (21-25) mmol/L ABG Total CO2 27 H (19-24) mmol/L ABG O2 Saturation 99.4 H (94-97) % Sodium (137-145) mmol/L BUN (9-20) mg/dL Creatinine (0.66-1.25) mg/dL Glucose (74-99) mg/dL POC Glucose (mg/dL) 187 H (70-110) mg/dL Calcium (8.4-10.2) mg/dL Procalcitonin (0.02-0.09) ng/mL Microbiology - Last 24 Hours (Table) 07/04/22 23:20 Gram Stain - Preliminary Sputum Sputum Culture - Preliminary Yeast species Assessment and Plan Plan: Mental status changes, cause is unclear could be related to overdose of narcotic Leukocytosis, no clear source of infection, chest x-ray and urine analysis don't show any clear evidence of infection, patient received IV steroids in the EMS and in the emergency room, will check lactic acid level and monitor CBC Acute exacerbation of COPD with wheezing on presentation, he was started on IV Solu-Medrol in the emergency room, he is on inhaled bronchodilators Evidence of acute kidney injury was elevated BUN and creatinine patient was started on IV fluid, nephrology consultation was requested Abdominal ascites, status post paracentesis 06/30/2022 with 3.5 L of fluid removed, Evidence of liver cirrhosis Mild elevation in troponin level will monitor Underlying history of hypertension Underlying history of hypothyroidism Underlying history of depression with anxiety disorder Underlying history of vitamin D deficiency Underlying history of degenerative disc disease with chronic back pain maintained on narcotics for pain management Underlying history of gastroesophageal reflux disease At this time patient is admitted to telemetry floor Will check d-dimer check lactic acid recheck CBC and CMP Continue with IV fluid and recheck renal function Consult nephrology
--- NOTE | 2022-07-08 15:20 | P.PN ---
Subjective Progress Note Date: 07/08/22 Principal diagnosis: Bacteremia Patient is a 67 year old male presenting to the hospital in mental status changes and multiple falls did have a low-grade fever and elevated white count now with evidence of bacteremia. Patient is status post paracentesis with removal of 3 L of ascitic fluid completed on 06/30/2022, the patient did have left groin dialysis catheter placement and has been started on dialysis as of 07/05/2022 On today's evaluation that is 07/08/2022, the patient remains to be afebrile, the patient FiO2 is down to 30%, patient is requiring pressor support only during the dialysis session per the nursing staff, no significant purulent secretion through the ET diarrhea or any other changes reported by the nursing staff Objective - Vital Signs Vital signs: Vital Signs Temp 98.7 F 07/08/22 04:00 Pulse 111 H 07/08/22 11:36 Resp 26 H 07/08/22 11:00 BP 82/40 07/08/22 09:30 Pulse Ox 95 07/08/22 11:00 FiO2 30 07/08/22 11:21 Intake & Output 07/07/22 07/08/22 07/08/22 18:59 06:59 18:59 Intake Total 797.039 526.442 300.703 Output Total 6341 190 130 Balance -5543.961 336.442 170.703 Weight 104.3 kg Intake: IV 579 378 199 0.9 @ 10 110 40 Mvi, Adult No.4 with Vit 329 K 10 ml Trace (Conc-1Ml/ Dose) 1 ml Sodium Acetate 16 meq Sodium Chloride 4Meq/ml Vial 16 meq Calcium Gluconate 1 gm In Amino Acid 5%-D15w 1,000 ml @ 30 mls/hr IV .Q24H [facility] Rx#:[id number] Mvi, Adult No.4 with Vit 235 47 K 10 ml Trace (Conc-1Ml/ Dose) 1 ml Sodium Acetate 40 meq Calcium Gluconate 1 gm In Amino Acid 5%- D15w 1,000 ml @ 47 mls/hr IV .Q22H9M [facility] Rx#: [id number] Piperacillin-Tazobactam 3 200 100 .375 gm In Sodium Chloride 0.9% 100 ml @ 25 mls/hr IVPB Q8HR [facility] Rx# :[id number] Pressure bag 33 12 Sodium Chloride 0.9% 1, 50 000 ml @ 50 mls/hr IV . Q20H [facility] Rx#:[id number] Intake, IV Titration 68.039 148.442 101.703 Amount Mvi, Adult No.4 with Vit 141 K 10 ml Trace (Conc-1Ml/ Dose) 1 ml Sodium Acetate 40 meq Calcium Gluconate 1 gm In Amino Acid 5%- D15w 1,000 ml @ 47 mls/hr IV .Q22H9M [facility] Rx#: [id number] Norepinephrine 32 mg In 68.039 7.442 1.703 Sodium Chloride 0.9% 218 ml @ 0.05 MCG/KG/MIN 2. 445 mls/hr IV .Q24H [facility] Rx#:[id number] Potassium Chloride 10 meq 100 In Water For Injection 1 100ml.bag @ 100 mls/hr IVPB Q1H [facility] Rx#: [id number] Other 150 Output: Gastric Drainage 100 Urine 241 190 130 Hemodialysis 3000 Other 3000 Other: Voiding Method Indwelling Catheter Indwelling Catheter Indwelling Catheter ABP, PAP, CO, CI - Last Documented Arterial Blood Pressure 119/54 - Exam GENERAL DESCRIPTION: An elderly male intubated on the vent RESPIRATORY SYSTEM: Unlabored breathing , decreased breath sounds at bases HEART: S1 S2 regular rate and rhythm , ABDOMEN: Soft , no tenderness EXTREMITIES: No edema feet - Labs CBC & Chem 7: 07/08/22 04:41 07/08/22 04:05 Labs: Abnormal Lab Results - Last 24 Hours (Table) 07/07/22 07/08/22 07/08/22 Range/Units 17:45 00:01 04:05 RBC (4.30-5.90) m/uL Hgb (13.0-17.5) gm/dL Hct (39.0-53.0) % MCV (80.0-100.0) fL Plt Count (150-450) k/uL Lymphocytes # (Manual) (1.0-4.8) k/uL ABG pO2 (83-108) mmHg ABG HCO3 (21-25) mmol/L ABG Total CO2 (19-24) mmol/L Sodium 134 L (137-145) mmol/L Potassium 3.3 L (3.5-5.1) mmol/L BUN 57 H (9-20) mg/dL Creatinine 2.88 H (0.66-1.25) mg/dL Glucose 131 H (74-99) mg/dL POC Glucose (mg/dL) 171 H 180 H (70-110) mg/dL Calcium 7.7 L (8.4-10.2) mg/dL Total Bilirubin 1.8 H (0.2-1.3) mg/dL AST 658 H (17-59) U/L ALT 378 H (4-49) U/L Alkaline Phosphatase 128 H (38-126) U/L Ammonia (<30) umol/L Total Protein 5.4 L (6.3-8.2) g/dL Albumin 2.6 L (3.5-5.0) g/dL 07/08/22 07/08/22 07/08/22 Range/Units 04:05 04:41 05:21 RBC 2.86 L (4.30-5.90) m/uL Hgb 9.2 L (13.0-17.5) gm/dL Hct 28.8 L (39.0-53.0) % MCV 100.7 H (80.0-100.0) fL Plt Count 59 L D (150-450) k/uL Lymphocytes # (Manual) 0.87 L (1.0-4.8) k/uL ABG pO2 (83-108) mmHg ABG HCO3 (21-25) mmol/L ABG Total CO2 (19-24) mmol/L Sodium (137-145) mmol/L Potassium (3.5-5.1) mmol/L BUN (9-20) mg/dL Creatinine (0.66-1.25) mg/dL Glucose (74-99) mg/dL POC Glucose (mg/dL) 131 H (70-110) mg/dL Calcium (8.4-10.2) mg/dL Total Bilirubin (0.2-1.3) mg/dL AST (17-59) U/L ALT (4-49) U/L Alkaline Phosphatase (38-126) U/L Ammonia 34 H (<30) umol/L Total Protein (6.3-8.2) g/dL Albumin (3.5-5.0) g/dL 07/08/22 07/08/22 Range/Units 05:22 11:53 RBC (4.30-5.90) m/uL Hgb (13.0-17.5) gm/dL Hct (39.0-53.0) % MCV (80.0-100.0) fL Plt Count (150-450) k/uL Lymphocytes # (Manual) (1.0-4.8) k/uL ABG pO2 75 L (83-108) mmHg ABG HCO3 28 H (21-25) mmol/L ABG Total CO2 29 H (19-24) mmol/L Sodium (137-145) mmol/L Potassium (3.5-5.1) mmol/L BUN (9-20) mg/dL Creatinine (0.66-1.25) mg/dL Glucose (74-99) mg/dL POC Glucose (mg/dL) 127 H (70-110) mg/dL Calcium (8.4-10.2) mg/dL Total Bilirubin (0.2-1.3) mg/dL AST (17-59) U/L ALT (4-49) U/L Alkaline Phosphatase (38-126) U/L Ammonia (<30) umol/L Total Protein (6.3-8.2) g/dL Albumin (3.5-5.0) g/dL Microbiology - Last 24 Hours (Table) 07/04/22 23:20 Gram Stain - Final Sputum Sputum Culture - Final Rosanne sp,not albicans/galbr Assessment and Plan (1) Bacteremia Current Visit: Yes Status: Acute Code(s): R78.81 - BACTEREMIA SNOMED Code(s): 7688363 Plan: 1patient with sepsis in this patient who did have a fever elevated white count elevated lactic acid now with evidence of gram-positive bacteremia with a source possible aspiration pneumonia as repeat x-ray did showed increasing density left lower lobe as the patient currently do not have any other obvious focus is abdominal soft on clinical examination no evidence of any joint swelling or cellulitis was noticed. 2blood cultures has been finalized as Streptococcus agalactiae repeat blood cultures have been negative so far 3-repeat CT with evidence of ascites and possible colitis in the left lower quadrant area, patient is status post paracentesis, white count was only 59 and cultures are so far negative 4- Patient with worsening respiratory status requiring intubation possible fluid overload plus minus a component of pneumonia questionable aspiration sputum culture has been obtained which are currently growing Rosanne more likely colonizer, patient white count has normalized, the patient will continue with the Zosyn and monitor clinical course closely Time with Patient: Less than 30
--- NOTE | 2022-07-08 17:44 | P.PN ---
Subjective Progress Note Date: 07/08/22 CHIEF COMPLAINT: Abdominal distention HISTORY OF PRESENT ILLNESS: The patient is a 67-year-old male with abdominal ascites, duodenitis, enteritis. is at bedside. Patient has been in intensive care unit and intubated. Per discussed with nurse, is now more weight. OG tube present. Minimal output out of orogastric tube. Patient was scheduled to undergo paracentesis however discontinued due to recent Lovenox administration. Overall, at bedside happy for improvement. ROS: On mechanical ventilation. Off sedation. Generalized weakness. No fevers or chills PHYSICAL EXAM: VITAL SIGNS: Reviewed CONSTITUTIONAL: Well developed and in no acute distress. EYES: Conjuctivae without sclera icterus. Extraocular movements grossly intact. HEAD, EARS, NOSE, THROAT: Moist buccal mucosa. Head is atraumatic, normocephalic. Hears conversational speech. No nasal drainage. RESPIRATORY: On mechanical ventilation. CARDIOVASCULAR: Palpable 2+ radial pulses. ABDOMEN: No peritonitis. Abdomen mildly tense. MUSCULOSKELETAL: No gross deformity of the lower extremities noted. No clubbing. No cyanosis. SKIN: Good skin turgor. Well perfused. NEUROLOGIC: Cranial nerves II through XII grossly intact. No focal or lateralizing signs. PSYCH: Lethargic. CLINICAL LABS: Reviewed. WBC down to normal 5.8. LFTs elevated. ASSESSMENT: 1. Duodenitis 2. Gastritis 3. Cirrhosis with abdominal ascites 4. Hypoxic acute respiratory failure PLAN: 1. Agree with repeat paracentesis due to symptomatic ascites 2. Recommend hold Lovenox 24 hours prior to procedure Objective - Vital Signs Vital signs: Vital Signs Temp 98.0 F 07/08/22 12:40 Pulse 92 07/08/22 17:00 Resp 24 07/08/22 17:00 BP 82/40 07/08/22 17:00 Pulse Ox 95 07/08/22 17:00 FiO2 30 07/08/22 16:00 Intake & Output 07/07/22 07/08/22 07/08/22 18:59 06:59 18:59 Intake Total 797.039 690.493 0437.986 Output Total 6341 190 6680 Balance -6543.961 336.975 -6598.014 Weight 104.3 kg Intake: IV 579 378 390 0.9 @ 10 110 110 Mvi, Adult No.4 with Vit 329 K 10 ml Trace (Conc-1Ml/ Dose) 1 ml Sodium Acetate 16 meq Sodium Chloride 4Meq/ml Vial 16 meq Calcium Gluconate 1 gm In Amino Acid 5%-D15w 1,000 ml @ 30 mls/hr IV .Q24H [facility] Rx#:[id number] Mvi, Adult No.4 with Vit 235 47 K 10 ml Trace (Conc-1Ml/ Dose) 1 ml Sodium Acetate 40 meq Calcium Gluconate 1 gm In Amino Acid 5%- D15w 1,000 ml @ 40 mls/hr IV .Q24H [facility] Rx#: [id number] Piperacillin-Tazobactam 3 200 200 .375 gm In Sodium Chloride 0.9% 100 ml @ 25 mls/hr IVPB Q8HR [facility] Rx# :[id number] Pressure bag 33 33 Sodium Chloride 0.9% 1, 50 000 ml @ 50 mls/hr IV . Q20H [facility] Rx#:[id number] Intake, IV Titration 68.039 305.206 0386.986 Amount Mvi, Adult No.4 with Vit 141 1011.283 K 10 ml Trace (Conc-1Ml/ Dose) 1 ml Sodium Acetate 40 meq Calcium Gluconate 1 gm In Amino Acid 5%- D15w 1,000 ml @ 40 mls/hr IV .Q24H [facility] Rx#: [id number] Norepinephrine 32 mg In 68.039 7.442 1.703 Sodium Chloride 0.9% 218 ml @ 0.05 MCG/KG/MIN 2. 445 mls/hr IV .Q24H [facility] Rx#:[id number] Potassium Chloride 10 meq 100 In Water For Injection 1 100ml.bag @ 100 mls/hr IVPB Q1H [facility] Rx#: [id number] Hemodialysis 300 Other 150 Output: Gastric Drainage 100 Urine 241 190 380 Hemodialysis 3000 3300 Other 3000 3000 Other: Voiding Method Indwelling Catheter Indwelling Catheter Indwelling Catheter ABP, PAP, CO, CI - Last Documented Arterial Blood Pressure 127/59 - Labs CBC & Chem 7: 07/08/22 04:41 07/08/22 04:05 Labs: Abnormal Lab Results - Last 24 Hours (Table) 07/07/22 07/08/22 07/08/22 Range/Units 17:45 00:01 04:05 RBC (4.30-5.90) m/uL Hgb (13.0-17.5) gm/dL Hct (39.0-53.0) % MCV (80.0-100.0) fL Plt Count (150-450) k/uL Lymphocytes # (Manual) (1.0-4.8) k/uL ABG pO2 (83-108) mmHg ABG HCO3 (21-25) mmol/L ABG Total CO2 (19-24) mmol/L Sodium 134 L (137-145) mmol/L Potassium 3.3 L (3.5-5.1) mmol/L BUN 57 H (9-20) mg/dL Creatinine 2.88 H (0.66-1.25) mg/dL Glucose 131 H (74-99) mg/dL POC Glucose (mg/dL) 171 H 180 H (70-110) mg/dL Calcium 7.7 L (8.4-10.2) mg/dL Total Bilirubin 1.8 H (0.2-1.3) mg/dL AST 658 H (17-59) U/L ALT 378 H (4-49) U/L Alkaline Phosphatase 128 H (38-126) U/L Ammonia (<30) umol/L Total Protein 5.4 L (6.3-8.2) g/dL Albumin 2.6 L (3.5-5.0) g/dL 07/08/22 07/08/22 07/08/22 Range/Units 04:05 04:41 05:21 RBC 2.86 L (4.30-5.90) m/uL Hgb 9.2 L (13.0-17.5) gm/dL Hct 28.8 L (39.0-53.0) % MCV 100.7 H (80.0-100.0) fL Plt Count 59 L D (150-450) k/uL Lymphocytes # (Manual) 0.87 L (1.0-4.8) k/uL ABG pO2 (83-108) mmHg ABG HCO3 (21-25) mmol/L ABG Total CO2 (19-24) mmol/L Sodium (137-145) mmol/L Potassium (3.5-5.1) mmol/L BUN (9-20) mg/dL Creatinine (0.66-1.25) mg/dL Glucose (74-99) mg/dL POC Glucose (mg/dL) 131 H (70-110) mg/dL Calcium (8.4-10.2) mg/dL Total Bilirubin (0.2-1.3) mg/dL AST (17-59) U/L ALT (4-49) U/L Alkaline Phosphatase (38-126) U/L Ammonia 34 H (<30) umol/L Total Protein (6.3-8.2) g/dL Albumin (3.5-5.0) g/dL 07/08/22 07/08/22 Range/Units 05:22 11:53 RBC (4.30-5.90) m/uL Hgb (13.0-17.5) gm/dL Hct (39.0-53.0) % MCV (80.0-100.0) fL Plt Count (150-450) k/uL Lymphocytes # (Manual) (1.0-4.8) k/uL ABG pO2 75 L (83-108) mmHg ABG HCO3 28 H (21-25) mmol/L ABG Total CO2 29 H (19-24) mmol/L Sodium (137-145) mmol/L Potassium (3.5-5.1) mmol/L BUN (9-20) mg/dL Creatinine (0.66-1.25) mg/dL Glucose (74-99) mg/dL POC Glucose (mg/dL) 127 H (70-110) mg/dL Calcium (8.4-10.2) mg/dL Total Bilirubin (0.2-1.3) mg/dL AST (17-59) U/L ALT (4-49) U/L Alkaline Phosphatase (38-126) U/L Ammonia (<30) umol/L Total Protein (6.3-8.2) g/dL Albumin (3.5-5.0) g/dL Microbiology - Last 24 Hours (Table) 06/29/22 15:12 Fungal Culture - Preliminary Ascites Fluid
[2022-07-08 17:51] LABS: Glucose,Whole Blood 155 mg/dL (70-110)
[2022-07-08] MEDS: ALPRAZolam 0.5 MG TAB PO SCH (20:24)
[2022-07-08] MEDS: MELATONIN 5 MG TABLET PO SCH (20:24)
[2022-07-08 23:35] LABS: Glucose,Whole Blood 140 mg/dL (70-110)
[2022-07-08] MEDS: DILTIAZEM 125 MG in SODIUM CHLORIDE 0.9% 100 ML IV SCH (23:36)
[2022-07-08] MEDS: HYDROmorphone 1 MG/ML 1 ML SYRINGE IVP PRN (23:39)
[2022-07-09] MEDS: HYDROmorphone 1 MG/ML 1 ML SYRINGE IVP PRN ×4 (03:10→22:49)
[2022-07-09 04:54] LABS: Calcium 7.7 mg/dL (8.4-10.2); Magnesium 1.9 mg/dL (1.6-2.3)
[2022-07-09 05:33] LABS: Glucose,Whole Blood 171 mg/dL (70-110)
[2022-07-09] MEDS: INSULIN ASPART (NovoLOG) 100 UNIT/ML VIAL SQ SCH ×4 (05:36→23:57)
[2022-07-09] MEDS: METOCLOPRAMIDE 5 MG/ML 2 ML VIAL IVP SCH ×3 (05:37→17:55)
[2022-07-09] MEDS: LEVOTHYROXINE 88 MCG TAB PO SCH (05:37)
[2022-07-09 05:41] LABS: HCT 28.7 % (39.0-53.0); HGB 9.2 gm/dL (13.0-17.5); Hypochromasia Moderate; MCH 31.9 pg (25.0-35.0); MCHC 31.9 g/dL (31.0-37.0); Macrocytosis Slight; Mean Platelet Volume 12.7; RBC 2.87 m/uL (4.30-5.90); RDW 14.9 % (11.5-15.5); WBC 8.1 k/uL (3.8-10.6)
[2022-07-09 05:50] LABS: ABG HCO3 26 mmol/L (21-25); ABG Oxygen Saturation 97.1 % (94-97); ABG PCO2 39 mmHg (35-45); ABG PH 7.44 (7.35-7.45); ABG PO2 78 mmHg (83-108); ABG TCO2 27 mmol/L (19-24); Allen Test Performed? Yes
[2022-07-09] MEDS ORDERED: Potassium Replacement Protocol 1 EACH MISC MISCELLANE PRN (06:17)
[2022-07-09] MEDS ORDERED: Magnesium Replacement Protocol 1 EACH MISC MISCELLANE PRN (06:19)
[2022-07-09 06:26] LABS: Band Neutrophils % 3 %; Eosinophils # (M) 0.32 k/uL (0-0.7); Lymphocytes # (M) 2.59 k/uL (1.0-4.8); Neutrophils % (M) 45 %; Nucleated Red Blood Cells 0 /100 WBC (0-0); Total Cells Counted 100
[2022-07-09 06:27] LABS: Platelet Count 47 k/uL (150-450)
[2022-07-09] MEDS: POTASSIUM CHLORIDE 20 MEQ in WATER FOR INJECTION 1 100ML.BAG IVPB SCH ×2 (06:33→08:29)
[2022-07-09] MEDS: MAGNESIUM SULFATE-D5W PMX 1 GM in DEXTROSE/WATER 1 100ML.BAG IVPB SCH ×2 (06:34→09:28)
[2022-07-09 06:35] LABS: Glucose,Whole Blood 135 mg/dL (70-110)
--- NOTE | 2022-07-09 07:47 | XR ---
EXAMINATION TYPE: XR chest 1V portable DATE OF EXAM: 07/09/2022 5:27 AM COMPARISON: Chest radiograph from one day prior. TECHNIQUE: XR chest 1V portable Frontal view of the chest. CLINICAL INDICATION:Male, 67 years old with history of Tube placement; FINDINGS: Lungs/Pleura: Improved aeration of lungs on today's exam with persistent airspace opacities scattered throughout the lungs. No evidence of pneumothorax or large pleural effusion. Pulmonary vascularity: Unremarkable. Heart/mediastinum: Cardiomediastinal silhouette is unremarkable. Musculoskeletal: No acute osseous pathology. Other findings: None Lines/Tubes: Endotracheal tube with distal tip 5.5 cm above the srini Nasogastric tube with its distal tip and side-port projecting under the diaphragm. IMPRESSION: 1. Endotracheal and nasogastric tubes in appropriate position. 2. Improved aeration of the lungs with persistent multifocal airspace opacities.
[2022-07-09] MEDS: IPRATROPIUM-ALBUTEROL 3 ML NEB INHALATION SCH ×4 (07:48→20:17)
--- NOTE | 2022-07-09 09:06 | P.PN ---
Progress Note - Text Progress Note Date: 07/09/22 Patient remains on the ventilator. He has had some bowel function with bowel movements. The nursing staff is asking about possible tube feeds. Patient is sedated on the ventilator. His abdomen is soft. Patient will start tube feeds. If he has high residuals this will be held.
--- NOTE | 2022-07-09 09:19 | P.PN ---
Subjective Progress Note Date: 07/09/22 Principal diagnosis: 59-year-old male with acute kidney injury with severe ATN and dialysis dependent. He has strep bacteremia and pneumonia when dependent respiratory failure on small doses of levo fed on the Route microgram per kilogram per minute. Urine output is about 30 mL/h blood pressure is stable. He is on 30% FiO2 sedated. Also is on TPN IV. Also known with liver cirrhosis and ascites post-paracentesis 07/01/2022, Alisa ozuna He has been dialyzed last 4 days in a row. Objective - Vital Signs Vital signs: Vital Signs Temp 97.6 F 07/09/22 04:00 Pulse 68 07/09/22 07:57 Resp 24 07/09/22 07:15 BP 137/68 07/09/22 04:45 Pulse Ox 96 07/09/22 07:15 FiO2 30 07/09/22 07:34 Intake & Output 07/08/22 07/09/22 07/09/22 18:59 06:59 18:59 Intake Total 1828.986 627.896 60 Output Total 6745 455 350 Balance -4916.014 172.896 -290 Weight 104.3 kg Intake: IV 416 604 60 0.9 @ 10 130 110 10 Mvi, Adult No.4 with Vit 47 461 47 K 10 ml Trace (Conc-1Ml/ Dose) 1 ml Sodium Acetate 40 meq Calcium Gluconate 1 gm In Amino Acid 5%- D15w 1,000 ml @ 40 mls/hr IV .Q24H [facility] Rx#: [id number] Piperacillin-Tazobactam 3 200 .375 gm In Sodium Chloride 0.9% 100 ml @ 25 mls/hr IVPB Q8HR [facility] Rx# :[id number] Pressure bag 39 33 3 Intake, IV Titration 1112.986 23.896 Amount Mvi, Adult No.4 with Vit 1011.283 K 10 ml Trace (Conc-1Ml/ Dose) 1 ml Sodium Acetate 40 meq Calcium Gluconate 1 gm In Amino Acid 5%- D15w 1,000 ml @ 40 mls/hr IV .Q24H [facility] Rx#: [id number] Norepinephrine 32 mg In 1.703 23.896 Sodium Chloride 0.9% 218 ml @ 0.05 MCG/KG/MIN 2. 445 mls/hr IV .Q24H [facility] Rx#:[id number] Potassium Chloride 10 meq 100 In Water For Injection 1 100ml.bag @ 100 mls/hr IVPB Q1H [facility] Rx#: [id number] Hemodialysis 300 Output: Gastric Drainage 300 Urine 445 455 50 Hemodialysis 3300 Other 3000 Other: Voiding Method Indwelling Catheter Indwelling Catheter ABP, PAP, CO, CI - Last Documented Arterial Blood Pressure 123/46 On examination he is on the vent at 30% FiO2 Opens eyes and makes eye contact No facial asymmetry noted. Lungs are clear to auscultation good air entry bilaterally Heart sounds unremarkable for any murmur rub gallop Atrial fibrillation Abdomen soft nontender mildly distended Extremity exam was moderate edema Neurologically sedated - Labs CBC & Chem 7: 07/09/22 04:20 07/09/22 04:20 Labs: Abnormal Lab Results - Last 24 Hours (Table) 07/08/22 07/08/22 07/08/22 Range/Units 11:53 17:48 23:34 RBC (4.30-5.90) m/uL Hgb (13.0-17.5) gm/dL Hct (39.0-53.0) % Plt Count (150-450) k/uL Monocytes # (Manual) (0-1.0) k/uL ABG pO2 (83-108) mmHg ABG HCO3 (21-25) mmol/L ABG Total CO2 (19-24) mmol/L ABG O2 Saturation (94-97) % Sodium (137-145) mmol/L Potassium (3.5-5.1) mmol/L BUN (9-20) mg/dL Creatinine (0.66-1.25) mg/dL Glucose (74-99) mg/dL POC Glucose (mg/dL) 127 H 155 H 140 H (70-110) mg/dL Calcium (8.4-10.2) mg/dL 07/09/22 07/09/22 07/09/22 Range/Units 04:20 04:20 05:32 RBC 2.87 L (4.30-5.90) m/uL Hgb 9.2 L (13.0-17.5) gm/dL Hct 28.7 L (39.0-53.0) % Plt Count 47 L (150-450) k/uL Monocytes # (Manual) 1.30 H (0-1.0) k/uL ABG pO2 (83-108) mmHg ABG HCO3 (21-25) mmol/L ABG Total CO2 (19-24) mmol/L ABG O2 Saturation (94-97) % Sodium 133 L (137-145) mmol/L Potassium 3.0 L (3.5-5.1) mmol/L BUN 55 H (9-20) mg/dL Creatinine 3.03 H (0.66-1.25) mg/dL Glucose 136 H (74-99) mg/dL POC Glucose (mg/dL) 171 H (70-110) mg/dL Calcium 7.7 L (8.4-10.2) mg/dL 07/09/22 07/09/22 Range/Units 05:48 06:34 RBC (4.30-5.90) m/uL Hgb (13.0-17.5) gm/dL Hct (39.0-53.0) % Plt Count (150-450) k/uL Monocytes # (Manual) (0-1.0) k/uL ABG pO2 78 L (83-108) mmHg ABG HCO3 26 H (21-25) mmol/L ABG Total CO2 27 H (19-24) mmol/L ABG O2 Saturation 97.1 H (94-97) % Sodium (137-145) mmol/L Potassium (3.5-5.1) mmol/L BUN (9-20) mg/dL Creatinine (0.66-1.25) mg/dL Glucose (74-99) mg/dL POC Glucose (mg/dL) 135 H (70-110) mg/dL Calcium (8.4-10.2) mg/dL Microbiology - Last 24 Hours (Table) 06/29/22 15:12 Fungal Culture - Preliminary Ascites Fluid Assessment and Plan Assessment: Impression 1. Acute kidney injury secondary to septic ATN currently on dialysis on a daily basis for the last 4 days, possibly recovering with urine output picking up. 2. On levo fed small dose 0.02 g. 3. Strep bacteremia with pneumonia possibly 4. Liver cirrhosis is. Ascites tap on 812 2243.6 L 5. Atrial fibrillation. Recommendation 1. Will hold off dialysis today because his x-rays better his labs are reasonable and there may be some possible recovery of renal function is dialysis may harm 2. If possible convert from TPN IV to oral via NG tube 3. Replace potassium, may be given via NG tube 20 mEq for 3 doses. 4. Monitor labs. May need further dialysis will reassess tomorrow
[2022-07-09] MEDS: PIPERACILLIN-TAZOBACTAM 3.375 GM in SODIUM CHLORIDE 0.9% 100 ML IVPB SCH (09:27)
[2022-07-09] MEDS ORDERED: POTASSIUM BICARBONATE/CIT AC 20 MEQ TABLET.EFF PO ONE ×2 (09:29→22:20)
[2022-07-09] MEDS: CHLORHEXIDINE GLUCONATE 15 ML CUP MUCOUS MEM SCH ×2 (09:46→20:36)
[2022-07-09] MEDS: PANTOPRAZOLE 40 MG/10 ML VIAL IVP SCH ×2 (09:46→20:37)
[2022-07-09] MEDS: NICOTINE 14MG/24HR PATCH TRANSDERM SCH (09:47)
[2022-07-09] MEDS: OCTREOTIDE 200 MCG/ML 5 ML VIAL IVP SCH ×2 (09:47→17:55)
[2022-07-09] MEDS: ATORVASTATIN 40 MG TAB PO SCH (09:47)
[2022-07-09] MEDS: METOPROLOL SUCCINATE (ER) 100 MG TAB.ER.24H PO SCH (09:47)
[2022-07-09] MEDS: SIMETHICONE 40 MG/0.6 ML DROPS 2,000 MG/30 ML BOTTLE PO SCH ×5 (09:48→20:38)
[2022-07-09] MEDS: FUROSEMIDE 10 MG/ML 10 ML VIAL IV SCH ×2 (09:48→20:37)
--- NOTE | 2022-07-09 10:08 | P.PN ---
Subjective Progress Note Date: 07/09/22 Principal diagnosis: Acute hypoxic and acute hypercapnic respiratory failure, acute metabolic encephalopathy, gram-positive sepsis On 06/24/2022 patient seen in follow-up in the intensive care unit. Patient is sedated, currently on Precedex at 0.5 mics per kilo per hour. He is on Precedex at 5 mg per hour. Lactated Ringer's at 75 ML per hour, remains sedated, very confused. No signs of any respiratory distress, he is on 4 L of oxygen per nasal cannula with pulse ox of 95%, his been afebrile, in sinus mechanism, rate is 79 BPM. His blood pressure is better controlled with Cleviprex infusion. It is currently 141/75. MRI of the brain was completed last night showing no evidence of a recent infarct, mild diffuse age-related cerebral atrophy and chronic small vessel ischemic changes. No abnormal enhancement was noted. Today's labs have been reviewed, white blood cell count is 20.0, hemoglobin is 12.7, INR is 1.4, sodium is 134, potassium is 4.8, chloride is 109, BUN is 65 creatinine 0.76. Last night's blood gas was also reviewed showing pO2 of 72, pCO2 of 32, and pH of 7.48. This was done on FiO2 of 32%. CTA chest a few days ago showed no evidence of pulmonary embolism, showed interstitial infiltrate and atelectasis, no suspicious pulmonary mass. EEG showed no focal slowing, epileptiform discharge or seizure. Echocardiogram showed EF of 60-65%. Blood culture showed strep agalactiae, group B. Follow-up blood cultures have shown no growth thus far. ID service is following, patient remains on cefazolin 2 g every 8 hours. Last night patient developed GI bleeding, and passed of a very large maroon-colored stool. Today's hemoglobin is 12.7 which is down from 14 from yesterday, platelet count is 141, INR is 1.4. GI service has been consulted for evaluation. 07/03/2022, abdomen is still distended. The patient was having liquidy stool yesterday and this has subsided on today. He is passing some gas. There is positive tympany and there is probably an underlying ileus. No significant pain. Currently is back in bed. He is on oxygen on 5 L per minute nasal cannula. Labs are still pending for now. There was a concern of an elevated creatinine was up to 2.2 from yesterday and this is to be repeated. BUN is at 78 from yesterday. He is afebrile. He is hemodynamically stable. The patient remains on IV Unasyn. In terms of laxatives, these are all on hold for now. Ascitic fluid the ascitic fluid cultures are still negative. Reevaluated today on 07/04/22, patient is quite lethargic, I saw him on the regular medical floor, patient is on BiPAP with IPAP of 12 EPAP of 6 and 60% FiO2. ABG showed a pO2 of 76 pCO2 of 91 pH of 7.11, hence I recommended transferring the patient to ICU. Patient continues to have leukocytosis with WBC of 18.9 hemoglobin is 9.7. Renal functioning remains abnormal with a BUN of 70 creatinine 1.6. Blood sugar is 142. Blood cultures were positive for strep agalactiae group B, his fluid cultures from the abdomen remain negative so far. Family is at bedside, patient is quite lethargic, hence I recommended transferring the patient to the ICU. Abdominal ultrasound showed mild abdominal ascites, chest x-ray continues to show interstitial infiltrates especially at the left base, consistent with atypical pulmonary edema, doubt pneumonia although aspiration pneumonia could also be considered. Patient remains on Unasyn. Patient is also on Lasix 40 mg IV push twice a day. Reevaluated today on 07/05/2022, patient had a deterioration in his clinical status yesterday after he was transferred to the ICU, and early evening, his condition continued to deteriorate, patient did not seem to improve with BiPAP, and his ABG seems to be not improving. Continue to remain more lethargic hence, around 10 PM I recommended intubation and mechanical ventilation. Today the patient is mechanically ventilated. He is on assist control rate of 22 total volume 500 FiO2 50% and PEEP of 5. His ABG earlier on assist control rate of 16 showed a pO2 of 101 pCO2 of 61 pH of 7.16. Patient developed significant oligoria, and I had to place the patient on Lasix now he is on 15 mg per hour, he was on 10 mg overnight. He is also requiring norepinephrine at 0.36 mcg/kg/m. Propofol at 40 mcg/kg/m. Remains on antibiotics in the form of Unasyn. IV fluid is at 50 mL per hour and cutting down to KVO since the chest x-ray is showing evidence of pulmonary edema. Patient remains oliguric and he was seen by nephrology today, the patient may be heading to possible hemodialysis. His urine output at present is 5-10 mL per hour in spite of Lasix drip. His liver enzymes are getting worse. His leukocytosis is getting worse. And I went ahead today and placed a right femoral triple-lumen catheter for norepinephrine infusion. WBC count today is 25.5, hemoglobin is 11, BUN is 78 creatinine 2.47. Liver enzymes are elevated with elevated total bilirubin of 2.0 AST of 541 AST of 147, ammonia level yesterday was 38. Chest x-ray today is showing evidence of pulmonary edema, underlying pneumonia is not entirely excluded. Reevaluated today on 07/06/22, remains in the ICU, intubated and mechanically ventilated. Patient is on assist control rate of 22 total volume 500 FiO2 50% and PEEP of 5. Patient underwent renal replacement therapy yesterday, and he tolerated that quite well. His ABG today showed a pO2 of 87 pCO2 47 pH of 7.31. And his FiO2 was cut down to 45%. Rate was increased to 24. Patient remains on multiple drips including Cardizem at 10 mg per hour, norepinephrine at 0.34 propofol at 50 mcg/kg/m and he is on saline at 50 mL per hour. Patient is not responsive to any stimuli, however the patient will be off propofol today, and we will assess mental status. Patient has been encephalopathic all along since admission. And I recommended cutting down Cardizem to 5 mg per hour. Chest x- ray is showing improvement in his pulmonary edema, WBC count of 17.4 hemoglobin is 10.5. Basic metabolic profile is normal except for BUN of 78 creatinine 3.19, and his urine output is very poor patient is relatively oligoric liver enzymes are elevated, pro-calcitonin is also elevated. Reevaluated today on 07/07/2022, patient remains in the ICU, intubated and mechanically ventilated. He is presently on assist control rate of 24 to volume 500 FiO2 40% and PEEP of 5 ABG showed a pO2 of 114 pCO2 42 pH of 7.39 and this was on 45% FiO2 earlier. Patient remains on TPN remains on a very small tiny dose of norepinephrine at 0.02, and his propofol has been off for the last hour before I saw him still the patient is not showing any responses and I plan to give him a sedation holiday and addressed mental status today. Patient remains on hemodialysis, he is intermittently in atrial flutter and that being addressed by cardiology on the case, Cardizem is off presently he continues to have a nasogastric tube in place, and 1100 mL overnight noted from the nasogastric tube. Abdomen is a bit distended, ordered an ultrasound of the abdomen to assess of the patient may benefit from paracentesis again. Chest x-ray is showing improvement in his interstitial edema. His labs today showed relatively normal electrolytes however his BUN is 63 creatinine 2.86, pro-calcitonin 0.50 Reevaluated today on 07/08/22, remains in the ICU intubated and mechanically ventilated. Patient is now on assist control rate of 24-500 FiO2 30% PEEP of 5 ABG showed a pO2 of 75 pCO2 43 pH of 7.42 patient remains on 30% FiO2. He is on TPN at 47 mL/h is also on Zosyn empirically. His abdomen remains distended and the patient continues to have ascites, I'm recommending interventional radiology to evaluate for possible paracentesis again on this patient. Patient has been off propofol since yesterday, he is arousable, opens his eyes, wiggling his toes, but remains very generally weak. We'll continue to hold propofol. In the meantime patient is not quite ready for weaning trials, but that is to be considered down the line. Patient remains on dialysis. Labs today showed relatively normal electrolytes, BMI 57 creatinine 2.88. CBC is relatively unremarkable. Chest x-ray continues to show mild interstitial edema, and small left and right pleural effusion Reevaluated today on 07/09/22, remains in the ICU intubated mechanically ventilated patient is off propofol now for almost 2 days. Patient is arousable and follows very simple instructions like squeezing hands and wiggling toes montoya carol he is extremely generally weak. He is on assist control rate of 24th of volume 500 FiO2 30% PEEP of 5. ABG showed a pO2 of 78 pCO2 38 pH of 7.44 Patient is on small dose of norepinephrine at 0.02 mcg/kg/m is also on TPN at 47 mL/h. Chest x-ray continues to show improvement in his infiltrates/edema , patient remains on hemodialysis he had dialysis yesterday and 3.3 L were taken off. Patient may have a repeat paracentesis next Monday. WBC count today is 8.1 hemoglobin is 9.2. Basic metabolic profile is normal except for low potassium of 3.0 BUN is 55 creatinine 3.03. Today the patient would have a trial of pressure support and CPAP. Objective - Vital Signs Vital signs: Vital Signs Temp 97.6 F 07/09/22 04:00 Pulse 68 07/09/22 07:57 Resp 24 07/09/22 07:15 BP 137/68 07/09/22 04:45 Pulse Ox 96 07/09/22 07:15 FiO2 30 07/09/22 07:34 Intake & Output 07/08/22 07/09/22 07/09/22 18:59 06:59 18:59 Intake Total 1828.986 627.896 60 Output Total 6745 455 350 Balance -4916.014 172.896 -290 Weight 104.3 kg Intake: IV 416 604 60 0.9 @ 10 130 110 10 Mvi, Adult No.4 with Vit 47 461 47 K 10 ml Trace (Conc-1Ml/ Dose) 1 ml Sodium Acetate 40 meq Calcium Gluconate 1 gm In Amino Acid 5%- D15w 1,000 ml @ 40 mls/hr IV .Q24H [facility] Rx#: [id number] Piperacillin-Tazobactam 3 200 .375 gm In Sodium Chloride 0.9% 100 ml @ 25 mls/hr IVPB Q8HR [facility] Rx# :[id number] Pressure bag 39 33 3 Intake, IV Titration 1112.986 23.896 Amount Mvi, Adult No.4 with Vit 1011.283 K 10 ml Trace (Conc-1Ml/ Dose) 1 ml Sodium Acetate 40 meq Calcium Gluconate 1 gm In Amino Acid 5%- D15w 1,000 ml @ 40 mls/hr IV .Q24H [facility] Rx#: [id number] Norepinephrine 32 mg In 1.703 23.896 Sodium Chloride 0.9% 218 ml @ 0.05 MCG/KG/MIN 2. 445 mls/hr IV .Q24H [facility] Rx#:[id number] Potassium Chloride 10 meq 100 In Water For Injection 1 100ml.bag @ 100 mls/hr IVPB Q1H [facility] Rx#: [id number] Hemodialysis 300 Output: Gastric Drainage 300 Urine 445 455 50 Hemodialysis 3300 Other 3000 Other: Voiding Method Indwelling Catheter Indwelling Catheter ABP, PAP, CO, CI - Last Documented Arterial Blood Pressure 123/46 - Exam GENERAL EXAM: 67-year-old white male, intubated and mechanically ventilated. Awake, follows simple instructions but generally weak HEAD: Normocephalic/atraumatic. Endotracheal tube and orogastric tube are intact. HEENT: PERRLA, EOMI, anicteric, neck masses, no JVD. CHEST: No chest wall deformity. Symmetrical expansion. LUNGS: Minimal crackles at the bases no rhonchi and no wheezes CVS: Regular rate and rhythm, normal S1 and S2, no gallops, no murmurs, no rubs ABDOMEN: Slightly distended, soft nontender, positive ascites. EXTREMITIES: No clubbing, 2+ bipedal edema, no cyanosis, 2+ pulses and upper and lower extremities. SKIN: No rashes CENTRAL NERVOUS SYSTEM: Arousable, opens eyes, follows simple instructions but general weakness is noted Psychiatric: Cannot assess remains sedated - Labs CBC & Chem 7: 07/09/22 04:20 07/09/22 04:20 Labs: Abnormal Lab Results - Last 24 Hours (Table) 07/08/22 07/08/22 07/08/22 Range/Units 11:53 17:48 23:34 RBC (4.30-5.90) m/uL Hgb (13.0-17.5) gm/dL Hct (39.0-53.0) % Plt Count (150-450) k/uL Monocytes # (Manual) (0-1.0) k/uL ABG pO2 (83-108) mmHg ABG HCO3 (21-25) mmol/L ABG Total CO2 (19-24) mmol/L ABG O2 Saturation (94-97) % Sodium (137-145) mmol/L Potassium (3.5-5.1) mmol/L BUN (9-20) mg/dL Creatinine (0.66-1.25) mg/dL Glucose (74-99) mg/dL POC Glucose (mg/dL) 127 H 155 H 140 H (70-110) mg/dL Calcium (8.4-10.2) mg/dL 07/09/22 07/09/22 07/09/22 Range/Units 04:20 04:20 05:32 RBC 2.87 L (4.30-5.90) m/uL Hgb 9.2 L (13.0-17.5) gm/dL Hct 28.7 L (39.0-53.0) % Plt Count 47 L (150-450) k/uL Monocytes # (Manual) 1.30 H (0-1.0) k/uL ABG pO2 (83-108) mmHg ABG HCO3 (21-25) mmol/L ABG Total CO2 (19-24) mmol/L ABG O2 Saturation (94-97) % Sodium 133 L (137-145) mmol/L Potassium 3.0 L (3.5-5.1) mmol/L BUN 55 H (9-20) mg/dL Creatinine 3.03 H (0.66-1.25) mg/dL Glucose 136 H (74-99) mg/dL POC Glucose (mg/dL) 171 H (70-110) mg/dL Calcium 7.7 L (8.4-10.2) mg/dL 07/09/22 07/09/22 Range/Units 05:48 06:34 RBC (4.30-5.90) m/uL Hgb (13.0-17.5) gm/dL Hct (39.0-53.0) % Plt Count (150-450) k/uL Monocytes # (Manual) (0-1.0) k/uL ABG pO2 78 L (83-108) mmHg ABG HCO3 26 H (21-25) mmol/L ABG Total CO2 27 H (19-24) mmol/L ABG O2 Saturation 97.1 H (94-97) % Sodium (137-145) mmol/L Potassium (3.5-5.1) mmol/L BUN (9-20) mg/dL Creatinine (0.66-1.25) mg/dL Glucose (74-99) mg/dL POC Glucose (mg/dL) 135 H (70-110) mg/dL Calcium (8.4-10.2) mg/dL Microbiology - Last 24 Hours (Table) 06/29/22 15:12 Fungal Culture - Preliminary Ascites Fluid Assessment and Plan Assessment: Impression: gram-positive bacteremia, noted on his initial presentation. Acute hypoxic and hypercapnic respiratory failure requiring BiPAP. Patient failed BiPAP, and he was intubated on 07/04/2022 Ascites, status post paracentesis, cultures are negative Acute ileus. Acute metabolic encephalopathy secondary to CO2 narcosis. Acute GI bleeding, presently inactive. Acute kidney injury secondary to sepsis. This is associated with oliguria. Patient is now on hemodialysis Multiple falls at home. History of opiate dependence History of underlying COPD/chronic bronchial asthma, unspecified. Chronic back pain. Generalized anxiety disorder. Status post paracentesis on 06/30/2022, 3.6 L removed. Patient is supposed to have another paracentesis next Monday. Recommendation: Patient will be given a trial of pressure support and CPAP today, and will do that as tolerated, however I have no plans to extubate him as he seems to be generally weak Continue ventilatory support Hemodynamic support if needed, patient is still requiring norepinephrine at 0.02 mcg/kg/m Continue Zosyn. Continue hemodialysis Repeat paracentesis on Monday by interventional radiology Continue to Monitor in the ICU. Continue TPN GI and DVT prophylaxis. Patient remains critically ill. Prognosis is extremely guarded. Critical care time is over 30 minutes. Time with Patient: Greater than 30
[2022-07-09 12:48] LABS: Glucose,Whole Blood 136 mg/dL (70-110)
--- NOTE | 2022-07-09 14:37 | P.PN ---
Subjective Progress Note Date: 07/08/22 Ag Souza, is a 67-year-old male who presented to [facility] emergency room after having a multiple falls at home, has significant mental status changes with somnolence and poor responsiveness, history per his , over the last 24 hours patient has been not feeling well, he fell twice at home, on the second time she was not able to wake him up and get him up from the floor through the bed, she called EMS and he was brought into emergency room. He was evaluated in the emergency room vital examination on presentation revealed a temperature of 97.3 pulse 82 respiration 16 blood pressure 121/67 pulse ox 97% on room air Laboratory data revealed a white blood count of 23.2 hemoglobin 14.4 platelet count 98,000 sodium 129 potassium 4.9 chloride 96 CO2 25 BUN 51 creatinine 2.24 troponin level was 0.02 COVID-19 testing was negative Testing in the emergency room revealed chest x-ray done in the emergency room did not reveal significant abnormality. Patient has a known history of degenerative disc disease with chronic pain maintained on narcotics for pain management he was given Narcan in the emergency room which led to improvement in his mental status. Patient was admitted to medical floor for further evaluation and treatment. On 06/22/2022 patient was seen and examined on the telemetry floor he is still somnolent, agitated, pulling on his IV line, he was started through the night on IV Ativan, vital examination reveals a temperature of 98.4 pulse 132 respiration 24 blood pressure 172/91 pulse ox 96% on 2 L nasal cannula, white blood count is 21.9 hemoglobin 14.8 platelet count 118 d-dimer was elevated at 2.12 at this time will start patient on IV heparin high-intensity for possible pulmonary embolism, his kidney function is still elevated, will defer computed tomography scan this time, he is not cooperative to proceed with VQ scan, will continue with IV fluid, nephrology consultation and infectious disease consultation were requested. On 06/23/2022 patient was seen and examined in the ICU he is more alert and oriented today vital exam reveals a temperature of 98.2 pulse 86 respiration 23 blood pressure 138/79 pulse ox 93% on 2 L nasal cannula white blood count is down to 15.4 hemoglobin 13.2 platelet count 125 kidney function improved with BUN at 66 and creatinine at 0.89 kidney ultrasound was done and revealed no evidence of renal stones or obstruction, CT angiogram of the chest was done and there was no evidence of pulmonary embolism, blood culture were positive for Streptococcus group b , patient is currently maintained on IV Unasyn, IV vanc omycin and IV acyclovir, cardiology, pulmonary, nephrology, neurology and infectious disease are following On 06/24/2022 patient was seen and examined in the ICU he is more alert and oriented today kidney ultrasound was done and revealed no evidence of renal stones or obstruction, CT angiogram of the chest was done and there was no evidence of pulmonary embolism, blood culture were positive for Streptococcus group b , patient is currently maintained on IV Unasyn, IV vancomycin and IV acyclovir, cardiology, pulmonary, nephrology, neurology and infectious disease are following. Patient had a maroon colored stools through the night, GI consultation is not available this week, surgical consultation was requested for evaluation for possible GI bleed On 06/25/2022 patient was seen and examined in the ICU, he is more alert and responsive today, there is no fever or chills no headache or dizziness no chest pain no shortness of breath no cough no nausea or vomiting no abdominal pain no diarrhea and no urinary symptoms. IV heparin has been discontinued, at this time will start subcu Lovenox for DVT prophylaxis, he remains on IV antibiotics cefazolin 2 g IV every 8 hours. On 06/26/2022 patient was seen and examined in the ICU he is alert and oriented 3 in no apparent distress he is complaining of abdominal discomfort otherwise he denies any complaint at this time there is no fever or chills no headache or dizziness no chest pain no shortness of breath no cough no nausea or vomiting no diarrhea no blood in the stools no burning with urination no frequency or urgency and no hematuria. On 06/27/2022 patient was seen and examined on in the ICU he is alert and oriented 3, he is feeling better, he had multiple bowel movements and his abdominal pain has improved, he is still complaining of difficulty sleeping at night otherwise he denies any complaints there is no fever or chills no headache or dizziness no chest pain no shortness of breath no cough no nausea or vomiting no abdominal pain no diarrhea no blood in the stools no burning with urination no frequency or urgency and no hematuria. On 06/28/2022 patient was seen and examined on the medical floor he is alert and oriented 3 in no distress there is no fever or chills no headache or dizziness no chest pain no shortness of breath no cough no nausea or vomiting no abdominal pain no diarrhea, no blood in the stools no burning with urination no frequency or urgency and no hematuria patient has generalized weakness he is improving gradually will continue to follow closely physical therapy is following On 06/29/2022 patient was seen and examined on the medical floor he is alert and oriented 3 in no apparent distress there is no fever or chills no headache or dizziness no chest pain no shortness of breath no cough no nausea or vomiting he is complaining of abdominal discomfort with abdominal distention no diarrhea or constipation no blood in the stools no burning with urination no frequency or urgency and no hematuria. At this time patient is scheduled for computed tomography scan of the abdomen and pelvis will continue to monitor closely. On 06/30/2022 patient was seen and examined on the telemetry floor he is alert and oriented 3 in no apparent distress he is complaining now of severe neck gina n and back pain and requesting [place], patient underwent paracentesis today, 3.5 L of fluid were removed, otherwise patient denies any other symptoms there is no fever or chills no headache or dizziness no chest pain no shortness of breath no cough no nausea or vomiting no abdominal pain no diarrhea and no urinary symptoms On 07/01/2022 patient was seen and examined on the medical floor he is alert and oriented 3 in no apparent distress he is complaining of abdominal discomfort and distention otherwise he denies any complaints at this time there is no fever or chills no headache or dizziness no chest pain no shortness of breath no cough no nausea or vomiting no diarrhea no blood in the stools no burning with urination no frequency or urgency and no hematuria On 07/02/2022 patient was seen and examined on the medical floor he is alert and oriented 3 in no apparent distress he is complaining of abdominal discomfort and distention, he is complaining of bilateral hip pain, he received 1 dose of lactulose and had multiple episodes of diarrhea afterwards lactulose was discontinued, otherwise he denies any complaints at this time there is no fever or chills no headache or dizziness no chest pain no shortness of breath no cough no nausea or vomiting no blood in the stools no burning with urination no frequency or urgency and no hematuria. On 07/03/2022 patient was seen and examined the medical he is alert and oriented he is complaining of abdominal distention was discomfort and shortness of breath otherwise he denies any complaints there is no fever or chills no headache or dizziness no chest pain no cough no nausea or vomiting no urinary symptoms On 07/04/2022 patient was seen and examined in the ICU he is more lethargic today he was started on BiPAP and transferred to ICU today ammonia level is elevated at 38 there is no fever or chills no headache or dizziness no chest pain patient has significant distention in the abdomen, no nausea or vomiting no diarrhea, Russo catheter is in. On 07/05/2022 patient was seen and examined in the ICU at this time he is intubated sedated maintained on mechanical ventilation, currently he is on assist control rate of 20 to FiO2 50% and PEEP of 5 he had a dialysis catheter placed and a session of hemodialysis is scheduled for this afternoon, patient is maintained on norepinephrine drip, white blood count is up to 25,000 hemoglobin is 11 BUN is up to 78 and creatinine 2.47 patient is maintained on IV Zosyn infectious disease are following, prognosis is guarded will continue with aggressive management at this time and sister are at the bedside and are aware of patient's condition. On 07/06/2022 patient was seen and examined in the ICU he is intubated sedated maintained on mechanical ventilation assist control rate 22 FiO2 50% with PEEP of 5 he was started on hemodialysis yesterday he is still IV antibiotic and IV fluid and norepinephrine temperature of 97.7 pulse 96 respiration 24 blood pressure 128/48 sodium 135 potassium 4.4 chloride 101 CO2 22 BUN 78 creatinine 3.19 white blood count 17.4 hemoglobin 10.5 platelet count 167 On 07/07/2022 patient was seen and examined in the ICU he is intubated sedated maintained on mechanical ventilation, he is maintained on assist control FiO2 40% feet 058 arterial blood gas is improving is maintained on TPN he is maintained on IV antibiotics he is maintained on hemodialysis vital exam reveals a temperature of 97.2 pulse 75 respiration 24 blood pressure 128/48 pulse ox 100% BUN is 63 creatinine 2.86 On 07/08/2022 patient was seen and examined in the ICU he is intubated sedated maintained on mechanical ventilation he is maintained on norepinephrine for pressure support, he is maintained on IV Zosyn, he was started on hemodialysis, clinically patient is stable. His vital exam reveals a temperature of 98.7 pulse 84 respiration 24 blood pressure 132/49 pulse ox 94% on mechanical ventilation FiO2 30% Objective - Vital Signs Vital signs: Vital Signs Temp 98.0 F 07/08/22 12:40 Pulse 101 H 07/08/22 13:30 Resp 24 07/08/22 13:30 BP 114/47 07/08/22 12:40 Pulse Ox 95 07/08/22 13:30 FiO2 30 07/08/22 12:00 Intake & Output 07/07/22 07/08/22 07/08/22 18:59 06:59 18:59 Intake Total 797.039 364.331 7427.986 Output Total 6341 190 6555 Balance -5543.961 336.442 -4904.014 Weight 104.3 kg Intake: IV 579 378 238 0.9 @ 10 110 70 Mvi, Adult No.4 with Vit 329 K 10 ml Trace (Conc-1Ml/ Dose) 1 ml Sodium Acetate 16 meq Sodium Chloride 4Meq/ml Vial 16 meq Calcium Gluconate 1 gm In Amino Acid 5%-D15w 1,000 ml @ 30 mls/hr IV .Q24H [facility] Rx#:[id number] Mvi, Adult No.4 with Vit 235 47 K 10 ml Trace (Conc-1Ml/ Dose) 1 ml Sodium Acetate 40 meq Calcium Gluconate 1 gm In Amino Acid 5%- D15w 1,000 ml @ 40 mls/hr IV .Q24H [facility] Rx#: [id number] Piperacillin-Tazobactam 3 200 100 .375 gm In Sodium Chloride 0.9% 100 ml @ 25 mls/hr IVPB Q8HR [facility] Rx# :[id number] Pressure bag 33 21 Sodium Chloride 0.9% 1, 50 000 ml @ 50 mls/hr IV . Q20H [facility] Rx#:[id number] Intake, IV Titration 68.039 703.020 9030.986 Amount Mvi, Adult No.4 with Vit 141 1011.283 K 10 ml Trace (Conc-1Ml/ Dose) 1 ml Sodium Acetate 40 meq Calcium Gluconate 1 gm In Amino Acid 5%- D15w 1,000 ml @ 40 mls/hr IV .Q24H [facility] Rx#: [id number] Norepinephrine 32 mg In 68.039 7.442 1.703 Sodium Chloride 0.9% 218 ml @ 0.05 MCG/KG/MIN 2. 445 mls/hr IV .Q24H [facility] Rx#:[id number] Potassium Chloride 10 meq 100 In Water For Injection 1 100ml.bag @ 100 mls/hr IVPB Q1H [facility] Rx#: [id number] Hemodialysis 300 Other 150 Output: Gastric Drainage 100 Urine 241 190 255 Hemodialysis 3000 3300 Other 3000 3000 Other: Voiding Method Indwelling Catheter Indwelling Catheter Indwelling Catheter ABP, PAP, CO, CI - Last Documented Arterial Blood Pressure 93/50 - Exam In general patient is alert and responsive in no apparent distress HEENT head normocephalic and atraumatic Neck is supple no JVD no goiter no lymphadenopathy no carotid bruit Chest examination is clear to auscultation no crackles no wheezing Cardiac exam reveals regular heart sounds S1 and S2 no gallops no murmurs Abdomen is distended with generalized tenderness, no organomegaly Extremity exam reveals no edema no cyanosis or clubbing Neurological examination reveals no gross focal deficits - Labs CBC & Chem 7: 07/09/22 04:20 07/09/22 12:30 Labs: Abnormal Lab Results - Last 24 Hours (Table) 07/07/22 07/08/22 07/08/22 Range/Units 17:45 00:01 04:05 RBC (4.30-5.90) m/uL Hgb (13.0-17.5) gm/dL Hct (39.0-53.0) % MCV (80.0-100.0) fL Plt Count (150-450) k/uL Lymphocytes # (Manual) (1.0-4.8) k/uL ABG pO2 (83-108) mmHg ABG HCO3 (21-25) mmol/L ABG Total CO2 (19-24) mmol/L Sodium 134 L (137-145) mmol/L Potassium 3.3 L (3.5-5.1) mmol/L BUN 57 H (9-20) mg/dL Creatinine 2.88 H (0.66-1.25) mg/dL Glucose 131 H (74-99) mg/dL POC Glucose (mg/dL) 171 H 180 H (70-110) mg/dL Calcium 7.7 L (8.4-10.2) mg/dL Total Bilirubin 1.8 H (0.2-1.3) mg/dL AST 658 H (17-59) U/L ALT 378 H (4-49) U/L Alkaline Phosphatase 128 H (38-126) U/L Ammonia (<30) umol/L Total Protein 5.4 L (6.3-8.2) g/dL Albumin 2.6 L (3.5-5.0) g/dL 07/08/22 07/08/22 07/08/22 Range/Units 04:05 04:41 05:21 RBC 2.86 L (4.30-5.90) m/uL Hgb 9.2 L (13.0-17.5) gm/dL Hct 28.8 L (39.0-53.0) % MCV 100.7 H (80.0-100.0) fL Plt Count 59 L D (150-450) k/uL Lymphocytes # (Manual) 0.87 L (1.0-4.8) k/uL ABG pO2 (83-108) mmHg ABG HCO3 (21-25) mmol/L ABG Total CO2 (19-24) mmol/L Sodium (137-145) mmol/L Potassium (3.5-5.1) mmol/L BUN (9-20) mg/dL Creatinine (0.66-1.25) mg/dL Glucose (74-99) mg/dL POC Glucose (mg/dL) 131 H (70-110) mg/dL Calcium (8.4-10.2) mg/dL Total Bilirubin (0.2-1.3) mg/dL AST (17-59) U/L ALT (4-49) U/L Alkaline Phosphatase (38-126) U/L Ammonia 34 H (<30) umol/L Total Protein (6.3-8.2) g/dL Albumin (3.5-5.0) g/dL 07/08/22 07/08/22 Range/Units 05:22 11:53 RBC (4.30-5.90) m/uL Hgb (13.0-17.5) gm/dL Hct (39.0-53.0) % MCV (80.0-100.0) fL Plt Count (150-450) k/uL Lymphocytes # (Manual) (1.0-4.8) k/uL ABG pO2 75 L (83-108) mmHg ABG HCO3 28 H (21-25) mmol/L ABG Total CO2 29 H (19-24) mmol/L Sodium (137-145) mmol/L Potassium (3.5-5.1) mmol/L BUN (9-20) mg/dL Creatinine (0.66-1.25) mg/dL Glucose (74-99) mg/dL POC Glucose (mg/dL) 127 H (70-110) mg/dL Calcium (8.4-10.2) mg/dL Total Bilirubin (0.2-1.3) mg/dL AST (17-59) U/L ALT (4-49) U/L Alkaline Phosphatase (38-126) U/L Ammonia (<30) umol/L Total Protein (6.3-8.2) g/dL Albumin (3.5-5.0) g/dL Microbiology - Last 24 Hours (Table) 07/04/22 23:20 Gram Stain - Final Sputum Sputum Culture - Final Rosanne sp,not albicans/galbr Assessment and Plan Plan: Mental status changes, cause is unclear could be related to overdose of narcotic Leukocytosis, no clear source of infection, chest x-ray and urine analysis don't show any clear evidence of infection, patient received IV steroids in the EMS and in the emergency room, will check lactic acid level and monitor CBC Acute exacerbation of COPD with wheezing on presentation, he was started on IV Solu-Medrol in the emergency room, he is on inhaled bronchodilators Evidence of acute kidney injury was elevated BUN and creatinine patient was started on IV fluid, nephrology consultation was requested Abdominal ascites, status post paracentesis 06/30/2022 with 3.5 L of fluid removed, Evidence of liver cirrhosis Mild elevation in troponin level will monitor Underlying history of hypertension Underlying history of hypothyroidism Underlying history of depression with anxiety disorder Underlying history of vitamin D deficiency Underlying history of degenerative disc disease with chronic back pain maintained on narcotics for pain management Underlying history of gastroesophageal reflux disease At this time patient is admitted to telemetry floor Will check d-dimer check lactic acid recheck CBC and CMP Continue with IV fluid and recheck renal function Consult nephrology
--- NOTE | 2022-07-09 14:40 | P.PN ---
Subjective Progress Note Date: 07/09/22 Ag Souza, is a 67-year-old male who presented to [facility] emergency room after having a multiple falls at home, has significant mental status changes with somnolence and poor responsiveness, history per his , over the last 24 hours patient has been not feeling well, he fell twice at home, on the second time she was not able to wake him up and get him up from the floor through the bed, she called EMS and he was brought into emergency room. He was evaluated in the emergency room vital examination on presentation revealed a temperature of 97.3 pulse 82 respiration 16 blood pressure 121/67 pulse ox 97% on room air Laboratory data revealed a white blood count of 23.2 hemoglobin 14.4 platelet count 98,000 sodium 129 potassium 4.9 chloride 96 CO2 25 BUN 51 creatinine 2.24 troponin level was 0.02 COVID-19 testing was negative Testing in the emergency room revealed chest x-ray done in the emergency room did not reveal significant abnormality. Patient has a known history of degenerative disc disease with chronic pain maintained on narcotics for pain management he was given Narcan in the emergency room which led to improvement in his mental status. Patient was admitted to medical floor for further evaluation and treatment. On 06/22/2022 patient was seen and examined on the telemetry floor he is still somnolent, agitated, pulling on his IV line, he was started through the night on IV Ativan, vital examination reveals a temperature of 98.4 pulse 132 respiration 24 blood pressure 172/91 pulse ox 96% on 2 L nasal cannula, white blood count is 21.9 hemoglobin 14.8 platelet count 118 d-dimer was elevated at 2.12 at this time will start patient on IV heparin high-intensity for possible pulmonary embolism, his kidney function is still elevated, will defer computed tomography scan this time, he is not cooperative to proceed with VQ scan, will continue with IV fluid, nephrology consultation and infectious disease consultation were requested. On 06/23/2022 patient was seen and examined in the ICU he is more alert and oriented today vital exam reveals a temperature of 98.2 pulse 86 respiration 23 blood pressure 138/79 pulse ox 93% on 2 L nasal cannula white blood count is down to 15.4 hemoglobin 13.2 platelet count 125 kidney function improved with BUN at 66 and creatinine at 0.89 kidney ultrasound was done and revealed no evidence of renal stones or obstruction, CT angiogram of the chest was done and there was no evidence of pulmonary embolism, blood culture were positive for Streptococcus group b , patient is currently maintained on IV Unasyn, IV vanc omycin and IV acyclovir, cardiology, pulmonary, nephrology, neurology and infectious disease are following On 06/24/2022 patient was seen and examined in the ICU he is more alert and oriented today kidney ultrasound was done and revealed no evidence of renal stones or obstruction, CT angiogram of the chest was done and there was no evidence of pulmonary embolism, blood culture were positive for Streptococcus group b , patient is currently maintained on IV Unasyn, IV vancomycin and IV acyclovir, cardiology, pulmonary, nephrology, neurology and infectious disease are following. Patient had a maroon colored stools through the night, GI consultation is not available this week, surgical consultation was requested for evaluation for possible GI bleed On 06/25/2022 patient was seen and examined in the ICU, he is more alert and responsive today, there is no fever or chills no headache or dizziness no chest pain no shortness of breath no cough no nausea or vomiting no abdominal pain no diarrhea and no urinary symptoms. IV heparin has been discontinued, at this time will start subcu Lovenox for DVT prophylaxis, he remains on IV antibiotics cefazolin 2 g IV every 8 hours. On 06/26/2022 patient was seen and examined in the ICU he is alert and oriented 3 in no apparent distress he is complaining of abdominal discomfort otherwise he denies any complaint at this time there is no fever or chills no headache or dizziness no chest pain no shortness of breath no cough no nausea or vomiting no diarrhea no blood in the stools no burning with urination no frequency or urgency and no hematuria. On 06/27/2022 patient was seen and examined on in the ICU he is alert and oriented 3, he is feeling better, he had multiple bowel movements and his abdominal pain has improved, he is still complaining of difficulty sleeping at night otherwise he denies any complaints there is no fever or chills no headache or dizziness no chest pain no shortness of breath no cough no nausea or vomiting no abdominal pain no diarrhea no blood in the stools no burning with urination no frequency or urgency and no hematuria. On 06/28/2022 patient was seen and examined on the medical floor he is alert and oriented 3 in no distress there is no fever or chills no headache or dizziness no chest pain no shortness of breath no cough no nausea or vomiting no abdominal pain no diarrhea, no blood in the stools no burning with urination no frequency or urgency and no hematuria patient has generalized weakness he is improving gradually will continue to follow closely physical therapy is following On 06/29/2022 patient was seen and examined on the medical floor he is alert and oriented 3 in no apparent distress there is no fever or chills no headache or dizziness no chest pain no shortness of breath no cough no nausea or vomiting he is complaining of abdominal discomfort with abdominal distention no diarrhea or constipation no blood in the stools no burning with urination no frequency or urgency and no hematuria. At this time patient is scheduled for computed tomography scan of the abdomen and pelvis will continue to monitor closely. On 06/30/2022 patient was seen and examined on the telemetry floor he is alert and oriented 3 in no apparent distress he is complaining now of severe neck gina n and back pain and requesting Vicco, patient underwent paracentesis today, 3.5 L of fluid were removed, otherwise patient denies any other symptoms there is no fever or chills no headache or dizziness no chest pain no shortness of breath no cough no nausea or vomiting no abdominal pain no diarrhea and no urinary symptoms On 07/01/2022 patient was seen and examined on the medical floor he is alert and oriented 3 in no apparent distress he is complaining of abdominal discomfort and distention otherwise he denies any complaints at this time there is no fever or chills no headache or dizziness no chest pain no shortness of breath no cough no nausea or vomiting no diarrhea no blood in the stools no burning with urination no frequency or urgency and no hematuria On 07/02/2022 patient was seen and examined on the medical floor he is alert and oriented 3 in no apparent distress he is complaining of abdominal discomfort and distention, he is complaining of bilateral hip pain, he received 1 dose of lactulose and had multiple episodes of diarrhea afterwards lactulose was discontinued, otherwise he denies any complaints at this time there is no fever or chills no headache or dizziness no chest pain no shortness of breath no cough no nausea or vomiting no blood in the stools no burning with urination no frequency or urgency and no hematuria. On 07/03/2022 patient was seen and examined the medical he is alert and oriented he is complaining of abdominal distention was discomfort and shortness of breath otherwise he denies any complaints there is no fever or chills no headache or dizziness no chest pain no cough no nausea or vomiting no urinary symptoms On 07/04/2022 patient was seen and examined in the ICU he is more lethargic today he was started on BiPAP and transferred to ICU today ammonia level is elevated at 38 there is no fever or chills no headache or dizziness no chest pain patient has significant distention in the abdomen, no nausea or vomiting no diarrhea, Russo catheter is in. On 07/05/2022 patient was seen and examined in the ICU at this time he is intubated sedated maintained on mechanical ventilation, currently he is on assist control rate of 20 to FiO2 50% and PEEP of 5 he had a dialysis catheter placed and a session of hemodialysis is scheduled for this afternoon, patient is maintained on norepinephrine drip, white blood count is up to 25,000 hemoglobin is 11 BUN is up to 78 and creatinine 2.47 patient is maintained on IV Zosyn infectious disease are following, prognosis is guarded will continue with aggressive management at this time and sister are at the bedside and are aware of patient's condition. On 07/06/2022 patient was seen and examined in the ICU he is intubated sedated maintained on mechanical ventilation assist control rate 22 FiO2 50% with PEEP of 5 he was started on hemodialysis yesterday he is still IV antibiotic and IV fluid and norepinephrine temperature of 97.7 pulse 96 respiration 24 blood pressure 128/48 sodium 135 potassium 4.4 chloride 101 CO2 22 BUN 78 creatinine 3.19 white blood count 17.4 hemoglobin 10.5 platelet count 167 On 07/07/2022 patient was seen and examined in the ICU he is intubated sedated maintained on mechanical ventilation, he is maintained on assist control FiO2 40% feet 058 arterial blood gas is improving is maintained on TPN he is maintained on IV antibiotics he is maintained on hemodialysis vital exam reveals a temperature of 97.2 pulse 75 respiration 24 blood pressure 128/48 pulse ox 100% BUN is 63 creatinine 2.86 On 07/08/2022 patient was seen and examined in the ICU he is intubated sedated maintained on mechanical ventilation he is maintained on norepinephrine for pressure support, he is maintained on IV Zosyn, he was started on hemodialysis, clinically patient is stable. His vital exam reveals a temperature of 98.7 pulse 84 respiration 24 blood pressure 132/49 pulse ox 94% on mechanical ventilation FiO2 30% On 07/09/2022 patient was seen and examined in the ICU currently he is on mechanical ventilation assist control rate of 24 FiO2 30% with a PEEP of 5, he is off propofol, he is awake and tries to answer questions with yes or no by moving his head he is moving his hands there has been a significant drop in his platelet count yesterday and today, I will check heparin induced antibodies and hold Lovenox for today, I have contacted Dr. Barajas over the phone and asked if he can switch Zosyn to a different antibiotic, otherwise patient is stable will continue to monitor closely Objective - Vital Signs Vital signs: Vital Signs Temp 98.3 F 07/09/22 12:08 Pulse 54 L 07/09/22 13:30 Resp 24 07/09/22 13:30 BP 115/47 07/09/22 11:00 Pulse Ox 96 07/09/22 13:30 FiO2 30 07/09/22 11:11 Intake & Output 07/08/22 07/09/22 07/09/22 18:59 06:59 18:59 Intake Total 1828.986 627.896 650.645 Output Total 6745 455 740 Balance -4916.014 172.896 -89.355 Weight 104.3 kg Intake: IV 416 604 446 0.9 @ 10 130 110 60 Mvi, Adult No.4 with Vit 47 461 268 K 10 ml Trace (Conc-1Ml/ Dose) 1 ml Sodium Acetate 40 meq Calcium Gluconate 1 gm In Amino Acid 5%- D15w 1,000 ml @ 40 mls/hr IV .Q24H MAURO Rx#: [id number] Piperacillin-Tazobactam 3 200 100 .375 gm In Sodium Chloride 0.9% 100 ml @ 25 mls/hr IVPB Q8HR [facility] Rx# :[id number] Pressure bag 39 33 18 Intake, IV Titration 1112.986 23.896 204.645 Amount Magnesium Sulfate-D5w Pmx 100 1 gm In Dextrose/Water 1 100ml.bag @ 100 mls/hr IVPB Q1H [facility] Rx#: [id number] Mvi, Adult No.4 with Vit 1011.283 K 10 ml Trace (Conc-1Ml/ Dose) 1 ml Sodium Acetate 40 meq Calcium Gluconate 1 gm In Amino Acid 5%- D15w 1,000 ml @ 40 mls/hr IV .Q24H [facility] Rx#: [id number] Norepinephrine 32 mg In 1.703 23.896 4.645 Sodium Chloride 0.9% 218 ml @ 0.05 MCG/KG/MIN 2. 445 mls/hr IV .Q24H [facility] Rx#:[id number] Potassium Chloride 10 meq 100 In Water For Injection 1 100ml.bag @ 100 mls/hr IVPB Q1H [facility] Rx#: [id number] Potassium Chloride 20 meq 100 In Water For Injection 1 100ml.bag @ 50 mls/hr IVPB Q2H [facility] Rx#: [id number] Hemodialysis 300 Output: Gastric Drainage 300 Urine 445 455 440 Hemodialysis 3300 Other 3000 Other: Voiding Method Indwelling Catheter Indwelling Catheter Indwelling Catheter ABP, PAP, CO, CI - Last Documented Arterial Blood Pressure 116/46 - Exam In general patient is alert and responsive in no apparent distress HEENT head normocephalic and atraumatic Neck is supple no JVD no goiter no lymphadenopathy no carotid bruit Chest examination is clear to auscultation no crackles no wheezing Cardiac exam reveals regular heart sounds S1 and S2 no gallops no murmurs Abdomen is distended with generalized tenderness, no organomegaly Extremity exam reveals no edema no cyanosis or clubbing Neurological examination reveals no gross focal deficits - Labs CBC & Chem 7: 07/09/22 04:20 07/09/22 12:30 Labs: Abnormal Lab Results - Last 24 Hours (Table) 07/08/22 07/08/22 07/09/22 Range/Units 17:48 23:34 04:20 RBC (4.30-5.90) m/uL Hgb (13.0-17.5) gm/dL Hct (39.0-53.0) % Plt Count (150-450) k/uL Monocytes # (Manual) (0-1.0) k/uL ABG pO2 (83-108) mmHg ABG HCO3 (21-25) mmol/L ABG Total CO2 (19-24) mmol/L ABG O2 Saturation (94-97) % Sodium 133 L (137-145) mmol/L Potassium 3.0 L (3.5-5.1) mmol/L BUN 55 H (9-20) mg/dL Creatinine 3.03 H (0.66-1.25) mg/dL Glucose 136 H (74-99) mg/dL POC Glucose (mg/dL) 155 H 140 H (70-110) mg/dL Calcium 7.7 L (8.4-10.2) mg/dL 07/09/22 07/09/22 07/09/22 Range/Units 04:20 05:32 05:48 RBC 2.87 L (4.30-5.90) m/uL Hgb 9.2 L (13.0-17.5) gm/dL Hct 28.7 L (39.0-53.0) % Plt Count 47 L (150-450) k/uL Monocytes # (Manual) 1.30 H (0-1.0) k/uL ABG pO2 78 L (83-108) mmHg ABG HCO3 26 H (21-25) mmol/L ABG Total CO2 27 H (19-24) mmol/L ABG O2 Saturation 97.1 H (94-97) % Sodium (137-145) mmol/L Potassium (3.5-5.1) mmol/L BUN (9-20) mg/dL Creatinine (0.66-1.25) mg/dL Glucose (74-99) mg/dL POC Glucose (mg/dL) 171 H (70-110) mg/dL Calcium (8.4-10.2) mg/dL 07/09/22 07/09/22 07/09/22 Range/Units 06:34 12:30 12:46 RBC (4.30-5.90) m/uL Hgb (13.0-17.5) gm/dL Hct (39.0-53.0) % Plt Count (150-450) k/uL Monocytes # (Manual) (0-1.0) k/uL ABG pO2 (83-108) mmHg ABG HCO3 (21-25) mmol/L ABG Total CO2 (19-24) mmol/L ABG O2 Saturation (94-97) % Sodium (137-145) mmol/L Potassium 3.4 L (3.5-5.1) mmol/L BUN (9-20) mg/dL Creatinine (0.66-1.25) mg/dL Glucose (74-99) mg/dL POC Glucose (mg/dL) 135 H 136 H (70-110) mg/dL Calcium (8.4-10.2) mg/dL Microbiology - Last 24 Hours (Table) 06/29/22 15:12 Fungal Culture - Preliminary Ascites Fluid Assessment and Plan Plan: Mental status changes, cause is unclear could be related to overdose of narcotic Leukocytosis, no clear source of infection, chest x-ray and urine analysis don't show any clear evidence of infection, patient received IV steroids in the EMS and in the emergency room, will check lactic acid level and monitor CBC Acute exacerbation of COPD with wheezing on presentation, he was started on IV Solu-Medrol in the emergency room, he is on inhaled bronchodilators Evidence of acute kidney injury was elevated BUN and creatinine patient was started on IV fluid, nephrology consultation was requested Abdominal ascites, status post paracentesis 06/30/2022 with 3.5 L of fluid removed, Evidence of liver cirrhosis Mild elevation in troponin level will monitor Underlying history of hypertension Underlying history of hypothyroidism Underlying history of depression with anxiety disorder Underlying history of vitamin D deficiency Underlying history of degenerative disc disease with chronic back pain maintained on narcotics for pain management Underlying history of gastroesophageal reflux disease At this time patient is admitted to telemetry floor Will check d-dimer check lactic acid recheck CBC and CMP Continue with IV fluid and recheck renal function Consult nephrology
[2022-07-09] MEDS: MVI, ADULT NO.4 WITH VIT K 10 ML, TRACE (CONC-1ML/DOSE) 1 ML, SODIUM ACETATE 40 MEQ, CA... IV SCH ×5 (15:05)
[2022-07-09] MEDS: POTASSIUM BICARBONATE/CIT AC 20 MEQ TABLET.EFF PO SCH ×3 (15:09→18:55)
[2022-07-09] MEDS: ENOXAPARIN 30 MG/0.3 ML SYRINGE SQ SCH (15:10)
[2022-07-09 17:49] LABS: Glucose,Whole Blood 118 mg/dL (70-110)
[2022-07-09] MEDS: NOREPINEPHRINE 32 MG in SODIUM CHLORIDE 0.9% 218 ML IV SCH (20:36)
[2022-07-09] MEDS: CEFEPIME 1 GM in SODIUM CHLORIDE 0.9% 50 ML IVPB SCH (20:36)
[2022-07-09] MEDS: ALPRAZolam 0.5 MG TAB PO SCH (20:36)
[2022-07-09] MEDS: MELATONIN 5 MG TABLET PO SCH (20:37)
--- NOTE | 2022-07-09 22:17 | P.PN ---
Subjective Progress Note Date: 07/09/22 Principal diagnosis: Bacteremia Patient is a 67 year old male presenting to the hospital in mental status changes and multiple falls did have a low-grade fever and elevated white count now with evidence of bacteremia. Patient is status post paracentesis with removal of 3 L of ascitic fluid completed on 06/30/2022, the patient did have left groin dialysis catheter placement and has been started on dialysis as of 07/05/2022 On today's evaluation that is 07/09/2022, the patient continues to be afebrile, the patient FiO2 is stable at 30%, patient is requiring low dose pressor support per the nursing staff, no significant purulent secretion through the ET diarrhea or any other changes reported by the nursing staff Objective - Vital Signs Vital signs: Vital Signs Temp 98.3 F 07/09/22 12:08 Pulse 54 L 07/09/22 13:30 Resp 24 07/09/22 13:30 BP 115/47 07/09/22 11:00 Pulse Ox 96 07/09/22 13:30 FiO2 30 07/09/22 11:11 Intake & Output 07/08/22 07/09/22 07/09/22 18:59 06:59 18:59 Intake Total 1828.986 627.896 650.645 Output Total 6745 455 740 Balance -4916.014 172.896 -89.355 Weight 104.3 kg Intake: IV 416 604 446 0.9 @ 10 130 110 60 Mvi, Adult No.4 with Vit 47 461 268 K 10 ml Trace (Conc-1Ml/ Dose) 1 ml Sodium Acetate 40 meq Calcium Gluconate 1 gm In Amino Acid 5%- D15w 1,000 ml @ 40 mls/hr IV .Q24H [facility] Rx#: [id number] Piperacillin-Tazobactam 3 200 100 .375 gm In Sodium Chloride 0.9% 100 ml @ 25 mls/hr IVPB Q8HR [facility] Rx# :[id number] Pressure bag 39 33 18 Intake, IV Titration 1112.986 23.896 204.645 Amount Magnesium Sulfate-D5w Pmx 100 1 gm In Dextrose/Water 1 100ml.bag @ 100 mls/hr IVPB Q1H [facility] Rx#: [id number] Mvi, Adult No.4 with Vit 1011.283 K 10 ml Trace (Conc-1Ml/ Dose) 1 ml Sodium Acetate 40 meq Calcium Gluconate 1 gm In Amino Acid 5%- D15w 1,000 ml @ 40 mls/hr IV .Q24H [facility] Rx#: [id number] Norepinephrine 32 mg In 1.703 23.896 4.645 Sodium Chloride 0.9% 218 ml @ 0.05 MCG/KG/MIN 2. 445 mls/hr IV .Q24H [facility] Rx#:[id number] Potassium Chloride 10 meq 100 In Water For Injection 1 100ml.bag @ 100 mls/hr IVPB Q1H [facility] Rx#: [id number] Potassium Chloride 20 meq 100 In Water For Injection 1 100ml.bag @ 50 mls/hr IVPB Q2H [facility] Rx#: [id number] Hemodialysis 300 Output: Gastric Drainage 300 Urine 445 455 440 Hemodialysis 3300 Other 3000 Other: Voiding Method Indwelling Catheter Indwelling Catheter Indwelling Catheter ABP, PAP, CO, CI - Last Documented Arterial Blood Pressure 116/46 - Exam GENERAL DESCRIPTION: An elderly male intubated on the vent RESPIRATORY SYSTEM: Unlabored breathing , decreased breath sounds at bases HEART: S1 S2 regular rate and rhythm , ABDOMEN: Soft , no tenderness EXTREMITIES: No edema feet - Labs CBC & Chem 7: 07/09/22 04:20 07/09/22 21:30 Labs: Abnormal Lab Results - Last 24 Hours (Table) 07/08/22 07/08/22 07/09/22 Range/Units 17:48 23:34 04:20 RBC (4.30-5.90) m/uL Hgb (13.0-17.5) gm/dL Hct (39.0-53.0) % Plt Count (150-450) k/uL Monocytes # (Manual) (0-1.0) k/uL ABG pO2 (83-108) mmHg ABG HCO3 (21-25) mmol/L ABG Total CO2 (19-24) mmol/L ABG O2 Saturation (94-97) % Sodium 133 L (137-145) mmol/L Potassium 3.0 L (3.5-5.1) mmol/L BUN 55 H (9-20) mg/dL Creatinine 3.03 H (0.66-1.25) mg/dL Glucose 136 H (74-99) mg/dL POC Glucose (mg/dL) 155 H 140 H (70-110) mg/dL Calcium 7.7 L (8.4-10.2) mg/dL 07/09/22 07/09/22 07/09/22 Range/Units 04:20 05:32 05:48 RBC 2.87 L (4.30-5.90) m/uL Hgb 9.2 L (13.0-17.5) gm/dL Hct 28.7 L (39.0-53.0) % Plt Count 47 L (150-450) k/uL Monocytes # (Manual) 1.30 H (0-1.0) k/uL ABG pO2 78 L (83-108) mmHg ABG HCO3 26 H (21-25) mmol/L ABG Total CO2 27 H (19-24) mmol/L ABG O2 Saturation 97.1 H (94-97) % Sodium (137-145) mmol/L Potassium (3.5-5.1) mmol/L BUN (9-20) mg/dL Creatinine (0.66-1.25) mg/dL Glucose (74-99) mg/dL POC Glucose (mg/dL) 171 H (70-110) mg/dL Calcium (8.4-10.2) mg/dL 07/09/22 07/09/22 07/09/22 Range/Units 06:34 12:30 12:46 RBC (4.30-5.90) m/uL Hgb (13.0-17.5) gm/dL Hct (39.0-53.0) % Plt Count (150-450) k/uL Monocytes # (Manual) (0-1.0) k/uL ABG pO2 (83-108) mmHg ABG HCO3 (21-25) mmol/L ABG Total CO2 (19-24) mmol/L ABG O2 Saturation (94-97) % Sodium (137-145) mmol/L Potassium 3.4 L (3.5-5.1) mmol/L BUN (9-20) mg/dL Creatinine (0.66-1.25) mg/dL Glucose (74-99) mg/dL POC Glucose (mg/dL) 135 H 136 H (70-110) mg/dL Calcium (8.4-10.2) mg/dL Microbiology - Last 24 Hours (Table) 06/29/22 15:12 Fungal Culture - Preliminary Ascites Fluid Assessment and Plan (1) Bacteremia Current Visit: Yes Status: Acute Code(s): R78.81 - BACTEREMIA SNOMED Code(s): 9273833 Plan: 1patient with sepsis in this patient who did have a fever elevated white count elevated lactic acid now with evidence of gram-positive bacteremia with a source possible aspiration pneumonia as repeat x-ray did showed increasing density left lower lobe as the patient currently do not have any other obvious focus is abdominal soft on clinical examination no evidence of any joint swelling or cellulitis was noticed. 2blood cultures has been finalized as Streptococcus agalactiae repeat blood cultures have been negative so far 3-repeat CT with evidence of ascites and possible colitis in the left lower quadrant area, patient is status post paracentesis, white count was only 59 and cultures are so far negative 4- Patient with worsening respiratory status requiring intubation possible fluid overload plus minus a component of pneumonia questionable aspiration sputum culture has been obtained which are currently growing Rosanne more likely co lonizer, 5-Patient white count has normalized however the patient has developed significant thrombocytopenia could be related to Zosyn we will discontinue Zosyn and start the patient cefepime and monitor clinical course closely discussed with the admitting physician Time with Patient: Less than 30
[2022-07-09] MEDS: DILTIAZEM 125 MG in SODIUM CHLORIDE 0.9% 100 ML IV SCH (23:22)
[2022-07-09 23:29] LABS: Glucose,Whole Blood 119 mg/dL (70-110)
[2022-07-10] MEDS: METOCLOPRAMIDE 5 MG/ML 2 ML VIAL IVP SCH ×4 (00:01→17:57)
[2022-07-10] MEDS: OCTREOTIDE 200 MCG/ML 5 ML VIAL IVP SCH ×2 (00:01→11:16)
[2022-07-10] MEDS: HYDROmorphone 1 MG/ML 1 ML SYRINGE IVP PRN ×3 (02:08→11:06)
[2022-07-10 04:25] LABS: HCT 30.2 % (39.0-53.0); HGB 9.4 gm/dL (13.0-17.5); Hypochromasia Moderate; MCHC 31.2 g/dL (31.0-37.0); MCV 99.5 fL (80.0-100.0); Macrocytosis Slight; Mean Platelet Volume 13.6; RBC 3.03 m/uL (4.30-5.90); RDW 14.7 % (11.5-15.5); WBC 10.6 k/uL (3.8-10.6)
[2022-07-10 04:34] LABS: Magnesium 2.2 mg/dL (1.6-2.3); Phosphorus 3.5 mg/dL (2.5-4.5); Potassium 3.8 mmol/L (3.5-5.1)
[2022-07-10 04:38] LABS: Platelet Count 41 k/uL (150-450)
[2022-07-10 05:17] LABS: Glucose,Whole Blood 122 mg/dL (70-110)
[2022-07-10] MEDS: INSULIN ASPART (NovoLOG) 100 UNIT/ML VIAL SQ SCH ×3 (05:22→17:18)
[2022-07-10] MEDS: LEVOTHYROXINE 88 MCG TAB PO SCH (05:26)
[2022-07-10 05:30] LABS: ABG Base Excess 2.9 mmol/L; ABG HCO3 27 mmol/L (21-25); ABG Oxygen Saturation 98.5 % (94-97); ABG PCO2 37 mmHg (35-45); ABG PH 7.47 (7.35-7.45); ABG PO2 90 mmHg (83-108); ABG TCO2 28 mmol/L (19-24); Allen Test Performed? Yes
[2022-07-10 06:23] LABS: Band Neutrophils % 1 %; Eosinophils # (M) 0.42 k/uL (0-0.7); Lymphocytes # (M) 4.24 k/uL (1.0-4.8); Monocytes # (M) 1.06 k/uL (0-1.0); Neutrophils % (M) 45 %; Nucleated Red Blood Cells 0 /100 WBC (0-0); Total Cells Counted 100
[2022-07-10 06:24] LABS: Anisocytosis (M) Present
[2022-07-10 06:26] LABS: Large Platelets Present
[2022-07-10 06:27] LABS: Polychromasia Present
--- NOTE | 2022-07-10 07:20 | XR ---
EXAMINATION TYPE: XR chest 1V portable DATE OF EXAM: 07/10/2022 5:44 AM COMPARISON: Chest x-ray 07/09/2022, chest x-ray 07/08/2022 TECHNIQUE: XR chest 1V portable . CLINICAL INDICATION:Male, 67 years old with history of Tube placement; FINDINGS: Lungs/Pleura: Chronic emphysematous and parenchymal fibrotic changes present. Improved aeration of th e lungs bilaterally. No focal consolidation. Minimal atelectasis of the lung bases bilaterally. No pn eumothorax or sizable pleural effusion. Pulmonary vascularity: Unremarkable. Heart/mediastinum: Cardiomediastinal silhouette is unremarkable. Musculoskeletal: No acute osseous pathology. Other findings: None Lines/Tubes: Endotracheal tube with distal tip 3.7 cm above the srini Nasogastric tube with its distal tip and side-port projecting under the diaphragm. IMPRESSION: 1. Endotracheal and nasogastric tubes in appropriate position. 2. Continued improved aeration bilaterally without focal airspace opacity.
[2022-07-10] MEDS: IPRATROPIUM-ALBUTEROL 3 ML NEB INHALATION SCH ×4 (07:33→19:11)
[2022-07-10] MEDS: FUROSEMIDE 10 MG/ML 10 ML VIAL IV SCH ×2 (07:45→21:08)
[2022-07-10] MEDS: PANTOPRAZOLE 40 MG/10 ML VIAL IVP SCH ×2 (07:45→21:08)
[2022-07-10] MEDS: CHLORHEXIDINE GLUCONATE 15 ML CUP MUCOUS MEM SCH ×2 (07:45→21:08)
[2022-07-10] MEDS: ENOXAPARIN 30 MG/0.3 ML SYRINGE SQ SCH (07:46)
[2022-07-10] MEDS: CEFEPIME 1 GM in SODIUM CHLORIDE 0.9% 50 ML IVPB SCH ×2 (07:46→21:08)
[2022-07-10] MEDS: ATORVASTATIN 40 MG TAB PO SCH (07:46)
[2022-07-10] MEDS: NICOTINE 14MG/24HR PATCH TRANSDERM SCH (07:46)
[2022-07-10] MEDS ORDERED: OCTREOTIDE 100 MCG/ML INJ IVP SCH (08:15)
--- NOTE | 2022-07-10 08:43 | P.PN ---
Subjective Progress Note Date: 07/10/22 Ag Souza, is a 67-year-old male who presented to [facility] emergency room after having a multiple falls at home, has significant mental status changes with somnolence and poor responsiveness, history per his , over the last 24 hours patient has been not feeling well, he fell twice at home, on the second time she was not able to wake him up and get him up from the floor through the bed, she called EMS and he was brought into emergency room. He was evaluated in the emergency room vital examination on presentation revealed a temperature of 97.3 pulse 82 respiration 16 blood pressure 121/67 pulse ox 97% on room air Laboratory data revealed a white blood count of 23.2 hemoglobin 14.4 platelet count 98,000 sodium 129 potassium 4.9 chloride 96 CO2 25 BUN 51 creatinine 2.24 troponin level was 0.02 COVID-19 testing was negative Testing in the emergency room revealed chest x-ray done in the emergency room did not reveal significant abnormality. Patient has a known history of degenerative disc disease with chronic pain maintained on narcotics for pain management he was given Narcan in the emergency room which led to improvement in his mental status. Patient was admitted to medical floor for further evaluation and treatment. On 06/22/2022 patient was seen and examined on the telemetry floor he is still somnolent, agitated, pulling on his IV line, he was started through the night on IV Ativan, vital examination reveals a temperature of 98.4 pulse 132 respiration 24 blood pressure 172/91 pulse ox 96% on 2 L nasal cannula, white blood count is 21.9 hemoglobin 14.8 platelet count 118 d-dimer was elevated at 2.12 at this time will start patient on IV heparin high-intensity for possible pulmonary embolism, his kidney function is still elevated, will defer computed tomography scan this time, he is not cooperative to proceed with VQ scan, will continue with IV fluid, nephrology consultation and infectious disease consultation were requested. On 06/23/2022 patient was seen and examined in the ICU he is more alert and oriented today vital exam reveals a temperature of 98.2 pulse 86 respiration 23 blood pressure 138/79 pulse ox 93% on 2 L nasal cannula white blood count is down to 15.4 hemoglobin 13.2 platelet count 125 kidney function improved with BUN at 66 and creatinine at 0.89 kidney ultrasound was done and revealed no evidence of renal stones or obstruction, CT angiogram of the chest was done and there was no evidence of pulmonary embolism, blood culture were positive for Streptococcus group b , patient is currently maintained on IV Unasyn, IV vanc omycin and IV acyclovir, cardiology, pulmonary, nephrology, neurology and infectious disease are following On 06/24/2022 patient was seen and examined in the ICU he is more alert and oriented today kidney ultrasound was done and revealed no evidence of renal stones or obstruction, CT angiogram of the chest was done and there was no evidence of pulmonary embolism, blood culture were positive for Streptococcus group b , patient is currently maintained on IV Unasyn, IV vancomycin and IV acyclovir, cardiology, pulmonary, nephrology, neurology and infectious disease are following. Patient had a maroon colored stools through the night, GI consultation is not available this week, surgical consultation was requested for evaluation for possible GI bleed On 06/25/2022 patient was seen and examined in the ICU, he is more alert and responsive today, there is no fever or chills no headache or dizziness no chest pain no shortness of breath no cough no nausea or vomiting no abdominal pain no diarrhea and no urinary symptoms. IV heparin has been discontinued, at this time will start subcu Lovenox for DVT prophylaxis, he remains on IV antibiotics cefazolin 2 g IV every 8 hours. On 06/26/2022 patient was seen and examined in the ICU he is alert and oriented 3 in no apparent distress he is complaining of abdominal discomfort otherwise he denies any complaint at this time there is no fever or chills no headache or dizziness no chest pain no shortness of breath no cough no nausea or vomiting no diarrhea no blood in the stools no burning with urination no frequency or urgency and no hematuria. On 06/27/2022 patient was seen and examined on in the ICU he is alert and oriented 3, he is feeling better, he had multiple bowel movements and his abdominal pain has improved, he is still complaining of difficulty sleeping at night otherwise he denies any complaints there is no fever or chills no headache or dizziness no chest pain no shortness of breath no cough no nausea or vomiting no abdominal pain no diarrhea no blood in the stools no burning with urination no frequency or urgency and no hematuria. On 06/28/2022 patient was seen and examined on the medical floor he is alert and oriented 3 in no distress there is no fever or chills no headache or dizziness no chest pain no shortness of breath no cough no nausea or vomiting no abdominal pain no diarrhea, no blood in the stools no burning with urination no frequency or urgency and no hematuria patient has generalized weakness he is improving gradually will continue to follow closely physical therapy is following On 06/29/2022 patient was seen and examined on the medical floor he is alert and oriented 3 in no apparent distress there is no fever or chills no headache or dizziness no chest pain no shortness of breath no cough no nausea or vomiting he is complaining of abdominal discomfort with abdominal distention no diarrhea or constipation no blood in the stools no burning with urination no frequency or urgency and no hematuria. At this time patient is scheduled for computed tomography scan of the abdomen and pelvis will continue to monitor closely. On 06/30/2022 patient was seen and examined on the telemetry floor he is alert and oriented 3 in no apparent distress he is complaining now of severe neck gina n and back pain and requesting Dane, patient underwent paracentesis today, 3.5 L of fluid were removed, otherwise patient denies any other symptoms there is no fever or chills no headache or dizziness no chest pain no shortness of breath no cough no nausea or vomiting no abdominal pain no diarrhea and no urinary symptoms On 07/01/2022 patient was seen and examined on the medical floor he is alert and oriented 3 in no apparent distress he is complaining of abdominal discomfort and distention otherwise he denies any complaints at this time there is no fever or chills no headache or dizziness no chest pain no shortness of breath no cough no nausea or vomiting no diarrhea no blood in the stools no burning with urination no frequency or urgency and no hematuria On 07/02/2022 patient was seen and examined on the medical floor he is alert and oriented 3 in no apparent distress he is complaining of abdominal discomfort and distention, he is complaining of bilateral hip pain, he received 1 dose of lactulose and had multiple episodes of diarrhea afterwards lactulose was discontinued, otherwise he denies any complaints at this time there is no fever or chills no headache or dizziness no chest pain no shortness of breath no cough no nausea or vomiting no blood in the stools no burning with urination no frequency or urgency and no hematuria. On 07/03/2022 patient was seen and examined the medical he is alert and oriented he is complaining of abdominal distention was discomfort and shortness of breath otherwise he denies any complaints there is no fever or chills no headache or dizziness no chest pain no cough no nausea or vomiting no urinary symptoms On 07/04/2022 patient was seen and examined in the ICU he is more lethargic today he was started on BiPAP and transferred to ICU today ammonia level is elevated at 38 there is no fever or chills no headache or dizziness no chest pain patient has significant distention in the abdomen, no nausea or vomiting no diarrhea, Russo catheter is in. On 07/05/2022 patient was seen and examined in the ICU at this time he is intubated sedated maintained on mechanical ventilation, currently he is on assist control rate of 20 to FiO2 50% and PEEP of 5 he had a dialysis catheter placed and a session of hemodialysis is scheduled for this afternoon, patient is maintained on norepinephrine drip, white blood count is up to 25,000 hemoglobin is 11 BUN is up to 78 and creatinine 2.47 patient is maintained on IV Zosyn infectious disease are following, prognosis is guarded will continue with aggressive management at this time and sister are at the bedside and are aware of patient's condition. On 07/06/2022 patient was seen and examined in the ICU he is intubated sedated maintained on mechanical ventilation assist control rate 22 FiO2 50% with PEEP of 5 he was started on hemodialysis yesterday he is still IV antibiotic and IV fluid and norepinephrine temperature of 97.7 pulse 96 respiration 24 blood pressure 128/48 sodium 135 potassium 4.4 chloride 101 CO2 22 BUN 78 creatinine 3.19 white blood count 17.4 hemoglobin 10.5 platelet count 167 On 07/07/2022 patient was seen and examined in the ICU he is intubated sedated maintained on mechanical ventilation, he is maintained on assist control FiO2 40% feet 058 arterial blood gas is improving is maintained on TPN he is maintained on IV antibiotics he is maintained on hemodialysis vital exam reveals a temperature of 97.2 pulse 75 respiration 24 blood pressure 128/48 pulse ox 100% BUN is 63 creatinine 2.86 On 07/08/2022 patient was seen and examined in the ICU he is intubated sedated maintained on mechanical ventilation he is maintained on norepinephrine for pressure support, he is maintained on IV Zosyn, he was started on hemodialysis, clinically patient is stable. His vital exam reveals a temperature of 98.7 pulse 84 respiration 24 blood pressure 132/49 pulse ox 94% on mechanical ventilation FiO2 30% On 07/09/2022 patient was seen and examined in the ICU currently he is on mechanical ventilation assist control rate of 24 FiO2 30% with a PEEP of 5, he is off propofol, he is awake and tries to answer questions with yes or no by moving his head he is moving his hands there has been a significant drop in his platelet count yesterday and today, I will check heparin induced antibodies and hold Lovenox for today, I have contacted Dr. Barajas over the phone and asked if he can switch Zosyn to a different antibiotic, otherwise patient is stable will continue to monitor closely. On 07/10/2022 patient was seen and examined in the ICU he is intubated sedated maintained on mechanical ventilation, he is on assist control rate of 24 FiO2 30% with a PEEP of 5 at this time platelet count is down to 41 Zosyn was switched yesterday by Dr. Barajas to Cefepime, heparin induced antibodies are still pending consult for hematology requested in regard to thrombocytopenia, patient is also having episodes of atrial fibrillation during dialysis he has bradycardia with a heart rate of 49 consultation for cardiology will be initiated otherwise patient is stable without significant change since yesterday Objective - Vital Signs Vital signs: Vital Signs Temp 98.2 F 07/10/22 08:00 Pulse 52 L 07/10/22 08:00 Resp 24 07/10/22 08:00 BP 137/68 07/09/22 23:30 Pulse Ox 96 07/10/22 08:00 FiO2 30 07/10/22 07:40 Intake & Output 07/09/22 07/10/22 07/10/22 18:59 06:59 18:59 Intake Total 728.645 611.892 156 Output Total 1190 1325 455 Balance -461.355 -713.108 -299 Intake: IV 524 596 106 0.9 @ 10 120 120 20 Mvi, Adult No.4 with Vit 268 440 80 K 10 ml Trace (Conc-1Ml/ Dose) 1 ml Sodium Acetate 40 meq Calcium Gluconate 1 gm In Amino Acid 5%- D15w 1,000 ml @ 40 mls/hr IV .Q24H [facility] Rx#: [id number] Piperacillin-Tazobactam 3 100 .375 gm In Sodium Chloride 0.9% 100 ml @ 25 mls/hr IVPB Q8HR [facility] Rx# :[id number] Pressure bag 36 36 6 Intake, IV Titration 204.645 15.892 50 Amount Cefepime 1 gm In Sodium 50 Chloride 0.9% 50 ml @ 12. 5 mls/hr IVPB Q12HR [facility] Rx#:[id number] Magnesium Sulfate-D5w Pmx 100 1 gm In Dextrose/Water 1 100ml.bag @ 100 mls/hr IVPB Q1H [facility] Rx#: [id number] Norepinephrine 32 mg In 4.645 15.892 Sodium Chloride 0.9% 218 ml @ 0.05 MCG/KG/MIN 2. 445 mls/hr IV .Q24H [facility] Rx#:[id number] Potassium Chloride 20 meq 100 In Water For Injection 1 100ml.bag @ 50 mls/hr IVPB Q2H [facility] Rx#: [id number] Output: Gastric Drainage 300 300 300 Urine 890 1025 155 Other: Voiding Method Indwelling Catheter Indwelling Catheter Indwelling Catheter ABP, PAP, CO, CI - Last Documented Arterial Blood Pressure 124/52 - Exam In general patient is alert and responsive in no apparent distress HEENT head normocephalic and atraumatic Neck is supple no JVD no goiter no lymphadenopathy no carotid bruit Chest examination is clear to auscultation no crackles no wheezing Cardiac exam reveals regular heart sounds S1 and S2 no gallops no murmurs Abdomen is distended with generalized tenderness, no organomegaly Extremity exam reveals no edema no cyanosis or clubbing Neurological examination reveals no gross focal deficits - Labs CBC & Chem 7: 07/10/22 04:16 07/10/22 04:16 Labs: Abnormal Lab Results - Last 24 Hours (Table) 07/09/22 07/09/22 07/09/22 Range/Units 12:30 12:46 17:46 RBC (4.30-5.90) m/uL Hgb (13.0-17.5) gm/dL Hct (39.0-53.0) % Plt Count (150-450) k/uL Monocytes # (Manual) (0-1.0) k/uL ABG pH (7.35-7.45) ABG HCO3 (21-25) mmol/L ABG Total CO2 (19-24) mmol/L ABG O2 Saturation (94-97) % Sodium (137-145) mmol/L Potassium 3.4 L (3.5-5.1) mmol/L Chloride (98-107) mmol/L BUN (9-20) mg/dL Creatinine (0.66-1.25) mg/dL Glucose (74-99) mg/dL POC Glucose (mg/dL) 136 H 118 H (70-110) mg/dL Calcium (8.4-10.2) mg/dL 07/09/22 07/10/22 07/10/22 Range/Units 23:28 04:16 04:16 RBC 3.03 L (4.30-5.90) m/uL Hgb 9.4 L (13.0-17.5) gm/dL Hct 30.2 L (39.0-53.0) % Plt Count 41 L (150-450) k/uL Monocytes # (Manual) 1.06 H (0-1.0) k/uL ABG pH (7.35-7.45) ABG HCO3 (21-25) mmol/L ABG Total CO2 (19-24) mmol/L ABG O2 Saturation (94-97) % Sodium 133 L (137-145) mmol/L Potassium (3.5-5.1) mmol/L Chloride 97 L (98-107) mmol/L BUN 75 H (9-20) mg/dL Creatinine 3.94 H (0.66-1.25) mg/dL Glucose 117 H (74-99) mg/dL POC Glucose (mg/dL) 119 H (70-110) mg/dL Calcium 8.0 L (8.4-10.2) mg/dL 07/10/22 07/10/22 Range/Units 05:15 05:28 RBC (4.30-5.90) m/uL Hgb (13.0-17.5) gm/dL Hct (39.0-53.0) % Plt Count (150-450) k/uL Monocytes # (Manual) (0-1.0) k/uL ABG pH 7.47 H (7.35-7.45) ABG HCO3 27 H (21-25) mmol/L ABG Total CO2 28 H (19-24) mmol/L ABG O2 Saturation 98.5 H (94-97) % Sodium (137-145) mmol/L Potassium (3.5-5.1) mmol/L Chloride (98-107) mmol/L BUN (9-20) mg/dL Creatinine (0.66-1.25) mg/dL Glucose (74-99) mg/dL POC Glucose (mg/dL) 122 H (70-110) mg/dL Calcium (8.4-10.2) mg/dL Assessment and Plan Plan: Mental status changes, cause is unclear could be related to overdose of narcotic Leukocytosis, no clear source of infection, chest x-ray and urine analysis don't show any clear evidence of infection, patient received IV steroids in the EMS and in the emergency room, will check lactic acid level and monitor CBC Acute exacerbation of COPD with wheezing on presentation, he was started on IV Solu-Medrol in the emergency room, he is on inhaled bronchodilators Evidence of acute kidney injury was elevated BUN and creatinine patient was started on IV fluid, nephrology consultation was requested Abdominal ascites, status post paracentesis 06/30/2022 with 3.5 L of fluid removed, Evidence of liver cirrhosis Mild elevation in troponin level will monitor Underlying history of hypertension Underlying history of hypothyroidism Underlying history of depression with anxiety disorder Underlying history of vitamin D deficiency Underlying history of degenerative disc disease with chronic back pain maintained on narcotics for pain management Underlying history of gastroesophageal reflux disease At this time patient is admitted to telemetry floor Will check d-dimer check lactic acid recheck CBC and CMP Continue with IV fluid and recheck renal function Consult nephrology
--- NOTE | 2022-07-10 10:35 | P.PN ---
Subjective Progress Note Date: 07/10/22 Principal diagnosis: 59-year-old male with acute kidney injury with severe ATN and dialysis dependent. He has strep bacteremia and pneumonia when dependent respiratory failure on small doses of levo fed on 0.0-025 microgram per kilogram per minute. He was dialyzed 4 days in a row last dialysis was day before yesterday yesterday we held his dialysis because his urine output was 30 mL an hour. This morning his urine output is significantly improved to about 100 mL an hour. He remains on the vent but awake and alert off of sedation. He is also on IV TPN. Waiting to start NG tube feeding or extubation. His vital signs are stable although blood pressure is 110 to 1:30 systolic. His creatinine which was 3.03 yesterday and without dialysis has gone up to 3.94 Also known with liver cirrhosis and ascites post-paracentesis 07/01/2022, Alisa ozuna Objective - Vital Signs Vital signs: Vital Signs Temp 98.2 F 07/10/22 08:00 Pulse 57 L 07/10/22 10:00 Resp 24 07/10/22 10:00 BP 137/68 07/09/22 23:30 Pulse Ox 97 07/10/22 10:00 FiO2 30 07/10/22 07:40 Intake & Output 07/09/22 07/10/22 07/10/22 18:59 06:59 18:59 Intake Total 728.645 611.892 262 Output Total 1190 1325 775 Balance -461.355 -713.108 -513 Intake: IV 524 596 212 0.9 @ 10 120 120 40 Mvi, Adult No.4 with Vit 268 440 160 K 10 ml Trace (Conc-1Ml/ Dose) 1 ml Sodium Acetate 40 meq Calcium Gluconate 1 gm In Amino Acid 5%- D15w 1,000 ml @ 40 mls/hr IV .Q24H [facility] Rx#: [id number] Piperacillin-Tazobactam 3 100 .375 gm In Sodium Chloride 0.9% 100 ml @ 25 mls/hr IVPB Q8HR [facility] Rx# :[id number] Pressure bag 36 36 12 Intake, IV Titration 204.645 15.892 50 Amount Cefepime 1 gm In Sodium 50 Chloride 0.9% 50 ml @ 12. 5 mls/hr IVPB Q12HR [facility] Rx#:[id number] Magnesium Sulfate-D5w Pmx 100 1 gm In Dextrose/Water 1 100ml.bag @ 100 mls/hr IVPB Q1H [facility] Rx#: [id number] Norepinephrine 32 mg In 4.645 15.892 Sodium Chloride 0.9% 218 ml @ 0.05 MCG/KG/MIN 2. 445 mls/hr IV .Q24H [facility] Rx#:[id number] Potassium Chloride 20 meq 100 In Water For Injection 1 100ml.bag @ 50 mls/hr IVPB Q2H [facility] Rx#: [id number] Output: Gastric Drainage 300 300 300 Urine 890 1025 475 Other: Voiding Method Indwelling Catheter Indwelling Catheter Indwelling Catheter ABP, PAP, CO, CI - Last Documented Arterial Blood Pressure 130/54 On examination he is on ventilator at 30% FiO2 Levo fed 0.025 mics per kilogram per minute Awake and alert follows commands No facial asymmetry noted Lungs are clear to auscultation fair air entry bilaterally Heart sounds unremarkable for any murmur rub gallop Abdomen soft nontender minimally distended Extremity exam was moderate edema Neurologically awake alert follows commands - Labs CBC & Chem 7: 07/10/22 04:16 07/10/22 04:16 Labs: Abnormal Lab Results - Last 24 Hours (Table) 07/09/22 07/09/22 07/09/22 Range/Units 12:30 12:46 17:46 RBC (4.30-5.90) m/uL Hgb (13.0-17.5) gm/dL Hct (39.0-53.0) % Plt Count (150-450) k/uL Monocytes # (Manual) (0-1.0) k/uL ABG pH (7.35-7.45) ABG HCO3 (21-25) mmol/L ABG Total CO2 (19-24) mmol/L ABG O2 Saturation (94-97) % Sodium (137-145) mmol/L Potassium 3.4 L (3.5-5.1) mmol/L Chloride (98-107) mmol/L BUN (9-20) mg/dL Creatinine (0.66-1.25) mg/dL Glucose (74-99) mg/dL POC Glucose (mg/dL) 136 H 118 H (70-110) mg/dL Calcium (8.4-10.2) mg/dL 07/09/22 07/10/22 07/10/22 Range/Units 23:28 04:16 04:16 RBC 3.03 L (4.30-5.90) m/uL Hgb 9.4 L (13.0-17.5) gm/dL Hct 30.2 L (39.0-53.0) % Plt Count 41 L (150-450) k/uL Monocytes # (Manual) 1.06 H (0-1.0) k/uL ABG pH (7.35-7.45) ABG HCO3 (21-25) mmol/L ABG Total CO2 (19-24) mmol/L ABG O2 Saturation (94-97) % Sodium 133 L (137-145) mmol/L Potassium (3.5-5.1) mmol/L Chloride 97 L (98-107) mmol/L BUN 75 H (9-20) mg/dL Creatinine 3.94 H (0.66-1.25) mg/dL Glucose 117 H (74-99) mg/dL POC Glucose (mg/dL) 119 H (70-110) mg/dL Calcium 8.0 L (8.4-10.2) mg/dL 07/10/22 07/10/22 Range/Units 05:15 05:28 RBC (4.30-5.90) m/uL Hgb (13.0-17.5) gm/dL Hct (39.0-53.0) % Plt Count (150-450) k/uL Monocytes # (Manual) (0-1.0) k/uL ABG pH 7.47 H (7.35-7.45) ABG HCO3 27 H (21-25) mmol/L ABG Total CO2 28 H (19-24) mmol/L ABG O2 Saturation 98.5 H (94-97) % Sodium (137-145) mmol/L Potassium (3.5-5.1) mmol/L Chloride (98-107) mmol/L BUN (9-20) mg/dL Creatinine (0.66-1.25) mg/dL Glucose (74-99) mg/dL POC Glucose (mg/dL) 122 H (70-110) mg/dL Calcium (8.4-10.2) mg/dL Assessment and Plan Assessment: Impression 1. Acute kidney injury secondary to septic ATN currently on dialysis on a daily basis for the last 4 days, possibly recovering with urine output picking up. Last dialysis was 2 days ago on Monday. Will hold off dialysis tomorrow unless his labs are significantly worse 2. On levo fed small dose 0.02 g. 3. Strep bacteremia with pneumonia possibly 4. Liver cirrhosis is. Ascites tap on 812 2243.6 L 5. Atrial fibrillation. Recommendation 1. Will hold off dialysis today because his x-rays better his labs are reasonable and there may be some possible recovery of renal function is dialysis may impede his renal recovery 2. If possible convert from TPN IV to oral via NG tube 3. Replace potassium, may be given via NG tube 20 mEq for 2 doses. 4. Monitor labs. May need further dialysis will reassess tomorrow
--- NOTE | 2022-07-10 10:50 | P.PN ---
Progress Note - Text Progress Note Date: 07/10/22 The patient is improving. Apparently he will be extubated later today. Tube feeds were not started yesterday due to his plan for extubation. Abdomen soft nontender Duodenitis resolving. Patient will start oral diet once extubated and has return of swallow function.
--- NOTE | 2022-07-10 10:55 | P.PN ---
Subjective Progress Note Date: 07/10/22 Principal diagnosis: Acute hypoxic and acute hypercapnic respiratory failure, acute metabolic encephalopathy, gram-positive sepsis On 06/24/2022 patient seen in follow-up in the intensive care unit. Patient is sedated, currently on Precedex at 0.5 mics per kilo per hour. He is on Precedex at 5 mg per hour. Lactated Ringer's at 75 ML per hour, remains sedated, very confused. No signs of any respiratory distress, he is on 4 L of oxygen per nasal cannula with pulse ox of 95%, his been afebrile, in sinus mechanism, rate is 79 BPM. His blood pressure is better controlled with Cleviprex infusion. It is currently 141/75. MRI of the brain was completed last night showing no evidence of a recent infarct, mild diffuse age-related cerebral atrophy and chronic small vessel ischemic changes. No abnormal enhancement was noted. Today's labs have been reviewed, white blood cell count is 20.0, hemoglobin is 12.7, INR is 1.4, sodium is 134, potassium is 4.8, chloride is 109, BUN is 65 creatinine 0.76. Last night's blood gas was also reviewed showing pO2 of 72, pCO2 of 32, and pH of 7.48. This was done on FiO2 of 32%. CTA chest a few days ago showed no evidence of pulmonary embolism, showed interstitial infiltrate and atelectasis, no suspicious pulmonary mass. EEG showed no focal slowing, epileptiform discharge or seizure. Echocardiogram showed EF of 60-65%. Blood culture showed strep agalactiae, group B. Follow-up blood cultures have shown no growth thus far. ID service is following, patient remains on cefazolin 2 g every 8 hours. Last night patient developed GI bleeding, and passed of a very large maroon-colored stool. Today's hemoglobin is 12.7 which is down from 14 from yesterday, platelet count is 141, INR is 1.4. GI service has been consulted for evaluation. 07/03/2022, abdomen is still distended. The patient was having liquidy stool yesterday and this has subsided on today. He is passing some gas. There is positive tympany and there is probably an underlying ileus. No significant pain. Currently is back in bed. He is on oxygen on 5 L per minute nasal cannula. Labs are still pending for now. There was a concern of an elevated creatinine was up to 2.2 from yesterday and this is to be repeated. BUN is at 78 from yesterday. He is afebrile. He is hemodynamically stable. The patient remains on IV Unasyn. In terms of laxatives, these are all on hold for now. Ascitic fluid the ascitic fluid cultures are still negative. Reevaluated today on 07/04/22, patient is quite lethargic, I saw him on the regular medical floor, patient is on BiPAP with IPAP of 12 EPAP of 6 and 60% FiO2. ABG showed a pO2 of 76 pCO2 of 91 pH of 7.11, hence I recommended transferring the patient to ICU. Patient continues to have leukocytosis with WBC of 18.9 hemoglobin is 9.7. Renal functioning remains abnormal with a BUN of 70 creatinine 1.6. Blood sugar is 142. Blood cultures were positive for strep agalactiae group B, his fluid cultures from the abdomen remain negative so far. Family is at bedside, patient is quite lethargic, hence I recommended transferring the patient to the ICU. Abdominal ultrasound showed mild abdominal ascites, chest x-ray continues to show interstitial infiltrates especially at the left base, consistent with atypical pulmonary edema, doubt pneumonia although aspiration pneumonia could also be considered. Patient remains on Unasyn. Patient is also on Lasix 40 mg IV push twice a day. Reevaluated today on 07/05/2022, patient had a deterioration in his clinical status yesterday after he was transferred to the ICU, and early evening, his condition continued to deteriorate, patient did not seem to improve with BiPAP, and his ABG seems to be not improving. Continue to remain more lethargic hence, around 10 PM I recommended intubation and mechanical ventilation. Today the patient is mechanically ventilated. He is on assist control rate of 22 total volume 500 FiO2 50% and PEEP of 5. His ABG earlier on assist control rate of 16 showed a pO2 of 101 pCO2 of 61 pH of 7.16. Patient developed significant oligoria, and I had to place the patient on Lasix now he is on 15 mg per hour, he was on 10 mg overnight. He is also requiring norepinephrine at 0.36 mcg/kg/m. Propofol at 40 mcg/kg/m. Remains on antibiotics in the form of Unasyn. IV fluid is at 50 mL per hour and cutting down to KVO since the chest x-ray is showing evidence of pulmonary edema. Patient remains oliguric and he was seen by nephrology today, the patient may be heading to possible hemodialysis. His urine output at present is 5-10 mL per hour in spite of Lasix drip. His liver enzymes are getting worse. His leukocytosis is getting worse. And I went ahead today and placed a right femoral triple-lumen catheter for norepinephrine infusion. WBC count today is 25.5, hemoglobin is 11, BUN is 78 creatinine 2.47. Liver enzymes are elevated with elevated total bilirubin of 2.0 AST of 541 AST of 147, ammonia level yesterday was 38. Chest x-ray today is showing evidence of pulmonary edema, underlying pneumonia is not entirely excluded. Reevaluated today on 07/06/22, remains in the ICU, intubated and mechanically ventilated. Patient is on assist control rate of 22 total volume 500 FiO2 50% and PEEP of 5. Patient underwent renal replacement therapy yesterday, and he tolerated that quite well. His ABG today showed a pO2 of 87 pCO2 47 pH of 7.31. And his FiO2 was cut down to 45%. Rate was increased to 24. Patient remains on multiple drips including Cardizem at 10 mg per hour, norepinephrine at 0.34 propofol at 50 mcg/kg/m and he is on saline at 50 mL per hour. Patient is not responsive to any stimuli, however the patient will be off propofol today, and we will assess mental status. Patient has been encephalopathic all along since admission. And I recommended cutting down Cardizem to 5 mg per hour. Chest x- ray is showing improvement in his pulmonary edema, WBC count of 17.4 hemoglobin is 10.5. Basic metabolic profile is normal except for BUN of 78 creatinine 3.19, and his urine output is very poor patient is relatively oligoric liver enzymes are elevated, pro-calcitonin is also elevated. Reevaluated today on 07/07/2022, patient remains in the ICU, intubated and mechanically ventilated. He is presently on assist control rate of 24 to volume 500 FiO2 40% and PEEP of 5 ABG showed a pO2 of 114 pCO2 42 pH of 7.39 and this was on 45% FiO2 earlier. Patient remains on TPN remains on a very small tiny dose of norepinephrine at 0.02, and his propofol has been off for the last hour before I saw him still the patient is not showing any responses and I plan to give him a sedation holiday and addressed mental status today. Patient remains on hemodialysis, he is intermittently in atrial flutter and that being addressed by cardiology on the case, Cardizem is off presently he continues to have a nasogastric tube in place, and 1100 mL overnight noted from the nasogastric tube. Abdomen is a bit distended, ordered an ultrasound of the abdomen to assess of the patient may benefit from paracentesis again. Chest x-ray is showing improvement in his interstitial edema. His labs today showed relatively normal electrolytes however his BUN is 63 creatinine 2.86, pro-calcitonin 0.50 Reevaluated today on 07/08/22, remains in the ICU intubated and mechanically ventilated. Patient is now on assist control rate of 24-500 FiO2 30% PEEP of 5 ABG showed a pO2 of 75 pCO2 43 pH of 7.42 patient remains on 30% FiO2. He is on TPN at 47 mL/h is also on Zosyn empirically. His abdomen remains distended and the patient continues to have ascites, I'm recommending interventional radiology to evaluate for possible paracentesis again on this patient. Patient has been off propofol since yesterday, he is arousable, opens his eyes, wiggling his toes, but remains very generally weak. We'll continue to hold propofol. In the meantime patient is not quite ready for weaning trials, but that is to be considered down the line. Patient remains on dialysis. Labs today showed relatively normal electrolytes, BMI 57 creatinine 2.88. CBC is relatively unremarkable. Chest x-ray continues to show mild interstitial edema, and small left and right pleural effusion Reevaluated today on 07/09/22, remains in the ICU intubated mechanically ventilated patient is off propofol now for almost 2 days. Patient is arousable and follows very simple instructions like squeezing hands and wiggling toes montoya carol he is extremely generally weak. He is on assist control rate of 24th of volume 500 FiO2 30% PEEP of 5. ABG showed a pO2 of 78 pCO2 38 pH of 7.44 Patient is on small dose of norepinephrine at 0.02 mcg/kg/m is also on TPN at 47 mL/h. Chest x-ray continues to show improvement in his infiltrates/edema , patient remains on hemodialysis he had dialysis yesterday and 3.3 L were taken off. Patient may have a repeat paracentesis next Monday. WBC count today is 8.1 hemoglobin is 9.2. Basic metabolic profile is normal except for low potassium of 3.0 BUN is 55 creatinine 3.03. Today the patient would have a trial of pressure support and CPAP. Reevaluated today on 07/10/22, patient remains in the ICU intubated and mechanically ventilated, remains off propofol, remains on assist control rate of 24 to volume 500 FiO2 30% PEEP of 5, ABG showed a pO2 of 90 pCO2 of 37 pH of 7.47, CBC is relatively unremarkable. Basic metabolic profile is normal BUN is 75 creatinine 3.94, chest x-ray continues to show steady improvement in his interstitial edema and infiltrates. Clinically the patient seems to be more awake today, he remains off propofol, and I will go ahead and give the patient a trial of weaning if possible today. However after initiation of pressure support and CPAP, I was notified by the respiratory therapist that the patient has apnea episodes, and I recommended that we go on a pressure support of 10, IMV rate of 10, and continue same FiO2, continue same PEEP. The plan is to gradually go down the IMV rate by 2 every 2 hours. And hopefully we could avoid any further apnea episodes and may even consider extubating the patient if he tolerates this modality otherwise may keep him again on mechanical ventilation overnight with IMV and pressure support Objective - Vital Signs Vital signs: Vital Signs Temp 98.2 F 07/10/22 08:00 Pulse 57 L 07/10/22 10:00 Resp 24 07/10/22 10:00 BP 137/68 07/09/22 23:30 Pulse Ox 97 07/10/22 10:00 FiO2 30 07/10/22 07:40 Intake & Output 07/09/22 07/10/22 07/10/22 18:59 06:59 18:59 Intake Total 728.645 611.892 262 Output Total 1190 1325 775 Balance -461.355 -713.108 -513 Intake: IV 524 596 212 0.9 @ 10 120 120 40 Mvi, Adult No.4 with Vit 268 440 160 K 10 ml Trace (Conc-1Ml/ Dose) 1 ml Sodium Acetate 40 meq Calcium Gluconate 1 gm In Amino Acid 5%- D15w 1,000 ml @ 40 mls/hr IV .Q24H [facility] Rx#: [id number] Piperacillin-Tazobactam 3 100 .375 gm In Sodium Chloride 0.9% 100 ml @ 25 mls/hr IVPB Q8HR [facility] Rx# :[id number] Pressure bag 36 36 12 Intake, IV Titration 204.645 15.892 50 Amount Cefepime 1 gm In Sodium 50 Chloride 0.9% 50 ml @ 12. 5 mls/hr IVPB Q12HR [facility] Rx#:[id number] Magnesium Sulfate-D5w Pmx 100 1 gm In Dextrose/Water 1 100ml.bag @ 100 mls/hr IVPB Q1H [facility] Rx#: [id number] Norepinephrine 32 mg In 4.645 15.892 Sodium Chloride 0.9% 218 ml @ 0.05 MCG/KG/MIN 2. 445 mls/hr IV .Q24H [facility] Rx#:[id number] Potassium Chloride 20 meq 100 In Water For Injection 1 100ml.bag @ 50 mls/hr IVPB Q2H [facility] Rx#: [id number] Output: Gastric Drainage 300 300 300 Urine 890 1025 475 Other: Voiding Method Indwelling Catheter Indwelling Catheter Indwelling Catheter ABP, PAP, CO, CI - Last Documented Arterial Blood Pressure 130/54 - Exam GENERAL EXAM: 67-year-old white male, intubated and mechanically ventilated. Quite awake, follows simple instructions. HEAD: Normocephalic/atraumatic. Endotracheal tube and orogastric tube are intact. HEENT: PERRLA, EOMI, anicteric, neck masses, no JVD. CHEST: No chest wall deformity. Symmetrical expansion. LUNGS: Diminished breath sounds at the bases no rhonchi no wheezes CVS: Regular rate and rhythm, normal S1 and S2, no gallops, no murmurs, no rubs ABDOMEN: Slightly distended, soft nontender, positive ascites. EXTREMITIES: No clubbing, 2+ bipedal edema, no cyanosis, 2+ pulses and upper and lower extremities. SKIN: No rashes CENTRAL NERVOUS SYSTEM: Arousable, follows all instructions, no gross focal deficit Psychiatric: Normal mood and flat affect, normal mental status. Seems appropriate. - Labs CBC & Chem 7: 07/10/22 04:16 08/21/22 04:16 Labs: Abnormal Lab Results - Last 24 Hours (Table) 07/09/22 07/09/22 07/09/22 Range/Units 12:30 12:46 17:46 RBC (4.30-5.90) m/uL Hgb (13.0-17.5) gm/dL Hct (39.0-53.0) % Plt Count (150-450) k/uL Monocytes # (Manual) (0-1.0) k/uL ABG pH (7.35-7.45) ABG HCO3 (21-25) mmol/L ABG Total CO2 (19-24) mmol/L ABG O2 Saturation (94-97) % Sodium (137-145) mmol/L Potassium 3.4 L (3.5-5.1) mmol/L Chloride (98-107) mmol/L BUN (9-20) mg/dL Creatinine (0.66-1.25) mg/dL Glucose (74-99) mg/dL POC Glucose (mg/dL) 136 H 118 H (70-110) mg/dL Calcium (8.4-10.2) mg/dL 07/09/22 07/10/22 07/10/22 Range/Units 23:28 04:16 04:16 RBC 3.03 L (4.30-5.90) m/uL Hgb 9.4 L (13.0-17.5) gm/dL Hct 30.2 L (39.0-53.0) % Plt Count 41 L (150-450) k/uL Monocytes # (Manual) 1.06 H (0-1.0) k/uL ABG pH (7.35-7.45) ABG HCO3 (21-25) mmol/L ABG Total CO2 (19-24) mmol/L ABG O2 Saturation (94-97) % Sodium 133 L (137-145) mmol/L Potassium (3.5-5.1) mmol/L Chloride 97 L (98-107) mmol/L BUN 75 H (9-20) mg/dL Creatinine 3.94 H (0.66-1.25) mg/dL Glucose 117 H (74-99) mg/dL POC Glucose (mg/dL) 119 H (70-110) mg/dL Calcium 8.0 L (8.4-10.2) mg/dL 07/10/22 07/10/22 Range/Units 05:15 05:28 RBC (4.30-5.90) m/uL Hgb (13.0-17.5) gm/dL Hct (39.0-53.0) % Plt Count (150-450) k/uL Monocytes # (Manual) (0-1.0) k/uL ABG pH 7.47 H (7.35-7.45) ABG HCO3 27 H (21-25) mmol/L ABG Total CO2 28 H (19-24) mmol/L ABG O2 Saturation 98.5 H (94-97) % Sodium (137-145) mmol/L Potassium (3.5-5.1) mmol/L Chloride (98-107) mmol/L BUN (9-20) mg/dL Creatinine (0.66-1.25) mg/dL Glucose (74-99) mg/dL POC Glucose (mg/dL) 122 H (70-110) mg/dL Calcium (8.4-10.2) mg/dL Assessment and Plan Assessment: Impression: gram-positive bacteremia, exact source is unclear. Acute hypoxic and hypercapnic respiratory failure requiring BiPAP. Patient failed BiPAP, and he was intubated on 07/04/2022 Ascites, status post paracentesis, cultures are negative Acute ileus. Acute metabolic encephalopathy secondary to CO2 narcosis. Acute GI bleeding, presently inactive. Acute kidney injury secondary to sepsis. This is associated with oliguria. Patient is now on hemodialysis Multiple falls at home. History of opiate dependence History of underlying COPD/chronic bronchial asthma, unspecified. Chronic back pain. Generalized anxiety disorder. Status post paracentesis on 06/30/2022, 3.6 L removed. Patient is supposed to h ave another paracentesis next Monday. Recommendation: IMV/pressure support mode of weaning possible weaning trial today. If fails, will: Continue ventilatory support Hemodynamic support if needed, patient is still requiring norepinephrine at 0.02 mcg/kg/m, advised to cut down the norepinephrine and possibly discontinue today since his blood pressure is better, and maintaining a good mean arterial pressure above 70. Continue Zosyn. Continue hemodialysis Repeat paracentesis on Monday by interventional radiology Continue to Monitor in the ICU. Continue TPN GI and DVT prophylaxis. Patient remains critically ill. Prognosis is extremely guarded. Critical care time is over 30 minutes. Time with Patient: Greater than 30
--- NOTE | 2022-07-10 11:01 | P.PN ---
Subjective HISTORY OF PRESENTING ILLNESS Patient seen and examined. Patient has had prolonged hospitalization with initial bacteremia, concern of pneumonia possible aspiration, prolonged respiratory failure on ventilator, acute kidney injury recently placed on dialysis, anemia, altered mental status, ascites status post paracentesis. He has had prolonged hospitalization and initially cardiology was consult that secondary to minimally elevated troponins. Echo at that time showed preserved EF 55-60% without significant valvular disease. Patient unfortunately has had progressive decline with kidney failure and recently placed on dialysis. Dialysis yesterday he had 3 L taken off. Currently attempting to be weaned on ventilator and on 35% FiO2 with only 5 of PEEP however has been apneic. 07/10 Cardiology was reconsulted secondary to asymptomatic bradycardia with heart rates in the 50s as well as brief episodes of A. fib for approximately 20-30 m inutes with heart rates in the 110-120 ranges. He had been placed on metoprolol 100 mg daily. Currently in sinus bradycardia with heart rate 55 bpm. Not on any vasopressors. Diffusely edematous. Hemoglobin 9.4, platelets 41, sodium 133, creatinine 3.9, last albumin was 2.6. Repeat EKG does show sinus rhythm with PVCs and deep T-wave inversions in the inferior and lateral leads. Patient somewhat responsive on ventilator and able to state he is not having any chest pain or pressure. PHYSICAL EXAMINATION Vital signs reviewed. CONSTITUTIONAL: No apparent distress, intubated. HEENT: Head is normocephalic. Pupils are equal, round. Sclerae anicteric. Mucous membranes of the mouth are moist. No JVD. No carotid bruit. CHEST EXAMINATION: +Crackles at bases HEART EXAMINATION: Regular rate and rhythm. S1, S2 heard. No murmurs, gallops or rub. ABDOMEN: Soft, nontender. Positive bowel sounds. EXTREMITIES: 2+ peripheral pulses, 3+ lower extremity edema and no calf tenderness. NEUROLOGIC EXAMINATION: Patient is awake on vent. ASSESSMENT 1. Altered mental status, appears improved 2. Sepsis with previous bacteremia 3. Non-STEMI likely type II mechanism with previous preserved EF 4. Abnormal EKG with deep T-wave inversions 5. Acute kidney injury now on dialysis 6. Anemia, severe thrombocytopenia 7. Paroxysmal atrial fibrillation brief episodes during dialysis 8. Hypertension 9. PVCs 10. Asymptomatic bradycardia PLAN Patient with brief episodes of A. fib, occasionally occurring during dialysis. Fairly controlled heart rates in the 110 the 120 range without significant effect on blood pressure. Continue with current dose of metoprolol. Additional bradycardia however asymptomatic and heart rates in the 50s. Patient additionally has worsened T-wave inversions and we will check repeat limited 2-D echo and evaluate as this can sometimes be seen with Takotsubo's cardiomyopathy. Does not currently complain of any angina-type symptoms. Continue to wean ventilator as able. Patient volume overloaded related to kidney failure and continue to remove fluid with dialysis. Further recommendations to follow. Objective - Vital Signs Vital signs: Vital Signs Temp 98.2 F 07/10/22 08:00 Pulse 57 L 07/10/22 10:00 Resp 24 07/10/22 10:00 BP 137/68 07/09/22 23:30 Pulse Ox 97 07/10/22 10:00 FiO2 30 07/10/22 10:46 Intake & Output 07/09/22 07/10/22 07/10/22 18:59 06:59 18:59 Intake Total 728.645 611.892 262 Output Total 1190 1325 775 Balance -461.355 -713.108 -513 Intake: IV 524 596 212 0.9 @ 10 120 120 40 Mvi, Adult No.4 with Vit 268 440 160 K 10 ml Trace (Conc-1Ml/ Dose) 1 ml Sodium Acetate 40 meq Calcium Gluconate 1 gm In Amino Acid 5%- D15w 1,000 ml @ 40 mls/hr IV .Q24H [facility] Rx#: [id number] Piperacillin-Tazobactam 3 100 .375 gm In Sodium Chloride 0.9% 100 ml @ 25 mls/hr IVPB Q8HR [facility] Rx# :[id number] Pressure bag 36 36 12 Intake, IV Titration 204.645 15.892 50 Amount Cefepime 1 gm In Sodium 50 Chloride 0.9% 50 ml @ 12. 5 mls/hr IVPB Q12HR [facility] Rx#:[id number] Magnesium Sulfate-D5w Pmx 100 1 gm In Dextrose/Water 1 100ml.bag @ 100 mls/hr IVPB Q1H [facility] Rx#: [id number] Norepinephrine 32 mg In 4.645 15.892 Sodium Chloride 0.9% 218 ml @ 0.05 MCG/KG/MIN 2. 445 mls/hr IV .Q24H [facility] Rx#:[id number] Potassium Chloride 20 meq 100 In Water For Injection 1 100ml.bag @ 50 mls/hr IVPB Q2H [facility] Rx#: [id number] Output: Gastric Drainage 300 300 300 Urine 890 1025 475 Other: Voiding Method Indwelling Catheter Indwelling Catheter Indwelling Catheter ABP, PAP, CO, CI - Last Documented Arterial Blood Pressure 130/54 - Labs CBC & Chem 7: 07/10/22 04:16 07/10/22 04:16 Labs: Abnormal Lab Results - Last 24 Hours (Table) 07/09/22 07/09/22 07/09/22 Range/Units 12:30 12:46 17:46 RBC (4.30-5.90) m/uL Hgb (13.0-17.5) gm/dL Hct (39.0-53.0) % Plt Count (150-450) k/uL Monocytes # (Manual) (0-1.0) k/uL ABG pH (7.35-7.45) ABG HCO3 (21-25) mmol/L ABG Total CO2 (19-24) mmol/L ABG O2 Saturation (94-97) % Sodium (137-145) mmol/L Potassium 3.4 L (3.5-5.1) mmol/L Chloride (98-107) mmol/L BUN (9-20) mg/dL Creatinine (0.66-1.25) mg/dL Glucose (74-99) mg/dL POC Glucose (mg/dL) 136 H 118 H (70-110) mg/dL Calcium (8.4-10.2) mg/dL 07/09/22 07/10/22 07/10/22 Range/Units 23:28 04:16 04:16 RBC 3.03 L (4.30-5.90) m/uL Hgb 9.4 L (13.0-17.5) gm/dL Hct 30.2 L (39.0-53.0) % Plt Count 41 L (150-450) k/uL Monocytes # (Manual) 1.06 H (0-1.0) k/uL ABG pH (7.35-7.45) ABG HCO3 (21-25) mmol/L ABG Total CO2 (19-24) mmol/L ABG O2 Saturation (94-97) % Sodium 133 L (137-145) mmol/L Potassium (3.5-5.1) mmol/L Chloride 97 L (98-107) mmol/L BUN 75 H (9-20) mg/dL Creatinine 3.94 H (0.66-1.25) mg/dL Glucose 117 H (74-99) mg/dL POC Glucose (mg/dL) 119 H (70-110) mg/dL Calcium 8.0 L (8.4-10.2) mg/dL 07/10/22 07/10/22 Range/Units 05:15 05:28 RBC (4.30-5.90) m/uL Hgb (13.0-17.5) gm/dL Hct (39.0-53.0) % Plt Count (150-450) k/uL Monocytes # (Manual) (0-1.0) k/uL ABG pH 7.47 H (7.35-7.45) ABG HCO3 27 H (21-25) mmol/L ABG Total CO2 28 H (19-24) mmol/L ABG O2 Saturation 98.5 H (94-97) % Sodium (137-145) mmol/L Potassium (3.5-5.1) mmol/L Chloride (98-107) mmol/L BUN (9-20) mg/dL Creatinine (0.66-1.25) mg/dL Glucose (74-99) mg/dL POC Glucose (mg/dL) 122 H (70-110) mg/dL Calcium (8.4-10.2) mg/dL
[2022-07-10] MEDS: METOPROLOL SUCCINATE (ER) 100 MG TAB.ER.24H PO SCH (11:03)
[2022-07-10] MEDS: POTASSIUM BICARBONATE/CIT AC 20 MEQ TABLET.EFF PO SCH ×2 (11:23→13:26)
[2022-07-10] MEDS ORDERED: OCTREOTIDE 200 MCG/ML 5 ML VIAL IVP SCH (12:00)
[2022-07-10 12:03] LABS: Glucose,Whole Blood 121 mg/dL (70-110)
--- NOTE | 2022-07-10 13:12 | P.CONS ---
History of Present Illness - Reason for Consult Consult date: 07/10/22 Thrombocytopenia Requesting physician: Carlos Pop - Chief Complaint Thrombocytopenia - History of Present Illness Mr. Souza is a 67-year-old gentleman with a past medical history hypertension, hyperlipidemia, and CVA/TIA who initially presented on 06/21/2022 with recurrent falls at home as well as metabolic encephalopathy. During the course of this hospitalization, he's been found to have group B strep agalactiae bacteremia resulting in septic shock and acute hypoxic respiratory failure requiring intubation. He's also had abdominal ileus with GI bleeding and was recently concern for aspiration pneumonia requiring reintubation along with progressive YUDI requiring the need for hemodialysis beginning on 07/05/2022. Hematology was consulted for thrombocytopenia. His platelet count on admission was noted to be 98 and subsequently improved to the normal range with supportive treatment. His platelet count on 07/06/2022 was noted to be 227, and has subsequently declined to 41 this morning. During the course of his admission, he is also noted to have progressive anemia with hemoglobin of 9.4 today from 14 on admission. MCV is noted to be ranging from the upper 90s to the low to mid 100s. He has been treated with a variety of antibiotics during the course of his admission including cefazolin, Zosyn, and currently cefepime. He was treated with Zosyn from 07/05/2022 through 07/09/2022. Zosyn was discontinued due to concern for potential cause of cytopenia. In addition, CT imaging of the abdomen and pelvis on 06/29/2022 did note cirrhosis of the liver with portal hypertension and hypersplenism. During my assessment today, Mr. Souza is alert and responding to commands, but remains intubated. He is able to answer yes or no questions. His reports that Mr. Souza has not had a history of alcohol abuse during her 30 year marriage, but may have had heavier alcohol use prior to that period. She denies any known history of Mr. Souza receiving transfusions of blood products. Further chart review does not reveal any prior testing for hepatitis C. Review of Systems ROS unobtainable: due to endotracheal tube Past Medical History Past Medical History: Asthma, Cancer, CVA/TIA, GERD/Reflux, Hyperlipidemia, Hypertension, Thyroid Disorder Additional Past Medical History / Comment(s): Hx. of Brain Aneurysm, SKIN CANCER, CHRONIC NOSEBLEEDS History of Any Multi-Drug Resistant Organisms: None Reported Past Surgical History: Cholecystectomy, Orthopedic Surgery, Tonsillectomy Additional Past Surgical History / Comment(s): Knee surgery, Endovascular coiling for Brain Aneurysm.LESION REMOVED , SUSPENSION MICROLARYNGOSCOPY Past Anesthesia/Blood Transfusion Reactions: Previous Problems w/ Anesthesia Additional Past Anesthesia/Blood Transfusion Reaction / Comm: Woke up during surgery. Smoking Status: Current every day smoker - Past Family History Mother Family Medical History: Cancer Additional Family Medical History / Comment(s): uterine cancer Father Family Medical History: Cancer, CVA/TIA Additional Family Medical History / Comment(s): skin cancer Sister(s) Family Medical History: Cancer Additional Family Medical History / Comment(s): skin cancer Medications and Allergies Home Medications Medication Instructions Recorded Confirmed Type Baclofen [Lioresal] 10 mg PO HS 02/26/19 06/21/22 History Ipratropium/Albuterol Sulfate 1 puff INHALATION RT-QID 02/26/19 06/21/22 History [Combivent Respimat Inhaler] Metoprolol Succinate [Toprol XL] 50 mg PO QAM 02/26/19 06/21/22 History Omeprazole [PriLOSEC] 20 mg PO AC-BRKFST 02/26/19 06/21/22 History HYDROcodone/APAP 10-325MG [[place] 1 tab PO Q6HR PRN 09/07/21 06/21/22 History 10-325] Levothyroxine Sodium [Synthroid] 88 mcg PO QAM 09/07/21 06/21/22 History Morphine Sulfate ER [Ms Contin] 15 mg PO HS 09/07/21 06/21/22 History Zolpidem Tartrate [Ambien Cr] 12.5 mg PO HS PRN 09/07/21 06/21/22 History lisinopriL [Prinivil] 20 mg PO QAM 09/07/21 06/21/22 History Albuterol Sulfate [Proventil Hfa] 1 - 2 puff INHALATION Q6HR PRN 06/21/22 06/21/22 History Aspirin EC [Ecotrin Low Dose] 81 mg PO DAILY 06/21/22 06/21/22 History Ergocalciferol [Vitamin D2 (1250 1,250 mcg PO Q7D 06/21/22 06/21/22 History Mcg = 82585 Iu)] Fluticasone Nasal [place] [Flonase 1 spray EA NOSTRIL DAILY 06/21/22 06/21/22 History Nasal [place]] Furosemide [Lasix] 20 mg PO DAILY 06/21/22 06/21/22 History Mirtazapine [Remeron] 15 mg PO HS 06/21/22 06/21/22 History hydrOXYzine HCL [Atarax] 10 mg PO HS 06/21/22 06/21/22 History traZODone HCL [Desyrel] 100 mg PO HS 06/21/22 06/21/22 History Allergies Allergy/AdvReac Type Severity Reaction Status Date / Time No Known Allergies Allergy Verified 06/21/22 11:22 Physical Exam Vitals: Vital Signs Temp Pulse Resp Pulse Ox FiO2 07/10/22 12:03 58 L 07/10/22 11:58 30 07/10/22 11:51 57 L 07/10/22 11:30 58 L 10 L 97 07/10/22 11:00 58 L 24 95 07/10/22 10:46 30 07/10/22 10:30 24 97 07/10/22 10:00 57 L 24 97 07/10/22 09:30 57 L 24 96 07/10/22 09:00 55 L 24 94 L 07/10/22 08:30 53 L 24 95 07/10/22 08:00 98.2 F 52 L 24 96 07/10/22 07:45 58 L 07/10/22 07:40 30 07/10/22 07:33 55 L 07/10/22 07:30 68 24 95 07/10/22 07:13 30 07/10/22 07:00 60 24 95 07/10/22 06:30 60 24 95 07/10/22 06:00 51 L 24 97 07/10/22 05:30 56 L 19 96 07/10/22 05:00 64 24 96 07/10/22 04:30 56 L 24 96 07/10/22 04:00 98.1 F 59 L 16 94 L 30 07/10/22 03:30 60 24 96 07/10/22 03:10 30 07/10/22 03:00 60 34 H 100 08/21/22 02:30 61 23 100 07/10/22 02:00 59 L 10 L 97 07/10/22 01:30 54 L 24 94 L 07/10/22 01:00 58 L 24 96 07/10/22 00:30 58 L 24 95 07/10/22 00:28 30 07/10/22 00:09 57 L 24 99 07/10/22 00:00 97.7 F 52 L 24 98 30 07/09/22 23:30 64 30 H 97 07/09/22 23:00 54 L 25 H 98 07/09/22 22:30 56 L 24 100 07/09/22 22:00 56 L 24 96 07/09/22 21:30 61 24 99 07/09/22 21:00 55 L 24 98 07/09/22 20:35 60 07/09/22 20:30 53 L 24 98 07/09/22 20:20 56 L 07/09/22 20:15 30 07/09/22 20:00 98.2 F 56 L 24 95 30 07/09/22 19:30 56 L 24 96 07/09/22 19:00 57 L 24 95 07/09/22 18:45 65 24 95 07/09/22 18:30 55 L 24 96 07/09/22 18:15 56 L 24 96 07/09/22 18:00 58 L 4 L 97 07/09/22 17:45 55 L 24 93 L 07/09/22 17:30 54 L 24 96 07/09/22 17:15 55 L 24 95 07/09/22 17:00 52 L 24 95 07/09/22 16:45 56 L 24 95 07/09/22 16:30 50 L 24 95 07/09/22 16:15 52 L 24 95 07/09/22 16:00 53 L 24 97 07/09/22 15:45 53 L 24 95 07/09/22 15:35 30 07/09/22 15:30 55 L 24 95 07/09/22 15:15 57 L 24 96 07/09/22 15:08 55 L 07/09/22 15:00 57 L 24 96 07/09/22 14:59 55 L 07/09/22 14:45 55 L 24 96 30 07/09/22 14:30 56 L 24 96 07/09/22 14:15 58 L 24 97 07/09/22 14:00 56 L 24 96 07/09/22 13:45 53 L 24 96 07/09/22 13:30 54 L 24 96 07/09/22 13:15 56 L 24 96 07/09/22 13:00 54 L 24 96 07/09/22 12:45 58 L 24 95 Intake and Output 07/09/22 07/10/22 07/10/22 22:59 06:59 14:59 Intake Total 239.892 424 368 Output Total 590 1005 1025 Balance -350.108 -58 -377 Intake: IV 224 424 318 0.9 @ 10 80 80 60 Mvi, Adult No.4 with Vit 120 320 240 K 10 ml Trace (Conc-1Ml/ Dose) 1 ml Sodium Acetate 40 meq Calcium Gluconate 1 gm In Amino Acid 5%- D15w 1,000 ml @ 40 mls/hr IV .Q24H [facility] Rx#: [id number] Pressure bag 24 24 18 Intake, IV Titration 15.892 50 Amount Cefepime 1 gm In Sodium 50 Chloride 0.9% 50 ml @ 12. 5 mls/hr IVPB Q12HR [facility] Rx#:[id number] Norepinephrine 32 mg In 15.892 Sodium Chloride 0.9% 218 ml @ 0.05 MCG/KG/MIN 2. 445 mls/hr IV .Q24H [facility] Rx#:[id number] Output: Gastric Drainage 300 300 Urine 590 705 725 Other: Voiding Method Indwelling Catheter Indwelling Catheter Indwelling Catheter ABP, PAP, CO, CI - Last 8 Hours Arterial Blood Pressure 120/46 Arterial Blood Pressure 128/52 Arterial Blood Pressure 130/57 Arterial Blood Pressure 130/54 Arterial Blood Pressure 123/51 Arterial Blood Pressure 115/46 Arterial Blood Pressure 124/52 Arterial Blood Pressure 124/52 Arterial Blood Pressure 120/56 Arterial Blood Pressure 122/52 Arterial Blood Pressure 110/48 Arterial Blood Pressure 116/49 Arterial Blood Pressure 126/54 Arterial Blood Pressure 118/53 - Constitutional Intubated, but alert and following commands General appearance: no acute distress - EENT Eyes: EOMI ENT: other (Oropharyngeal tube along with endotracheal tube appearing midline) - Respiratory Mechanical breath sounds bilaterally - Cardiovascular Rhythm: regular Heart sounds: normal: S1, S2 leg Peripheral Edema: bilateral: 3+ (Anasarca of the lower extremities bilaterally to the thighs) - Gastrointestinal General gastrointestinal: distended, normal bowel sounds, no tenderness - Integumentary Ecchymosis along the arms bilaterally - Neurologic No focal deficits Results CBC & Chem 7: 07/10/22 04:16 07/10/22 04:16 Labs: Abnormal Lab Results - Last 24 Hours (Table) 07/09/22 07/09/22 07/09/22 Range/Units 12:30 12:46 17:46 RBC (4.30-5.90) m/uL Hgb (13.0-17.5) gm/dL Hct (39.0-53.0) % Plt Count (150-450) k/uL Monocytes # (Manual) (0-1.0) k/uL ABG pH (7.35-7.45) ABG HCO3 (21-25) mmol/L ABG Total CO2 (19-24) mmol/L ABG O2 Saturation (94-97) % Sodium (137-145) mmol/L Potassium 3.4 L (3.5-5.1) mmol/L Chloride (98-107) mmol/L BUN (9-20) mg/dL Creatinine (0.66-1.25) mg/dL Glucose (74-99) mg/dL POC Glucose (mg/dL) 136 H 118 H (70-110) mg/dL Calcium (8.4-10.2) mg/dL 07/09/22 07/10/22 07/10/22 Range/Units 23:28 04:16 04:16 RBC 3.03 L (4.30-5.90) m/uL Hgb 9.4 L (13.0-17.5) gm/dL Hct 30.2 L (39.0-53.0) % Plt Count 41 L (150-450) k/uL Monocytes # (Manual) 1.06 H (0-1.0) k/uL ABG pH (7.35-7.45) ABG HCO3 (21-25) mmol/L ABG Total CO2 (19-24) mmol/L ABG O2 Saturation (94-97) % Sodium 133 L (137-145) mmol/L Potassium (3.5-5.1) mmol/L Chloride 97 L (98-107) mmol/L BUN 75 H (9-20) mg/dL Creatinine 3.94 H (0.66-1.25) mg/dL Glucose 117 H (74-99) mg/dL POC Glucose (mg/dL) 119 H (70-110) mg/dL Calcium 8.0 L (8.4-10.2) mg/dL 07/10/22 07/10/22 07/10/22 Range/Units 05:15 05:28 12:02 RBC (4.30-5.90) m/uL Hgb (13.0-17.5) gm/dL Hct (39.0-53.0) % Plt Count (150-450) k/uL Monocytes # (Manual) (0-1.0) k/uL ABG pH 7.47 H (7.35-7.45) ABG HCO3 27 H (21-25) mmol/L ABG Total CO2 28 H (19-24) mmol/L ABG O2 Saturation 98.5 H (94-97) % Sodium (137-145) mmol/L Potassium (3.5-5.1) mmol/L Chloride (98-107) mmol/L BUN (9-20) mg/dL Creatinine (0.66-1.25) mg/dL Glucose (74-99) mg/dL POC Glucose (mg/dL) 122 H 121 H (70-110) mg/dL Calcium (8.4-10.2) mg/dL Assessment and Plan Assessment: Mr. Souza is a 67-year-old gentleman with a past medical history significant for hypertension, hyperlipidemia, CVA/TIA as well as radiographic evidence for cirrhosis with hypersplenism has an prolonged hospitalization course for sharp recollect a bacteremia resulting in acute hypoxic respiratory failure and septic shock with subsequent aspiration pneumonia and acute kidney injury resulting in the need for hemodialysis as been noted to have progressive thrombocytopenia. In addition, he is also been noted to have progressive normocytic tube slightly macrocytic anemia during the course of his hospitalization. Plan: #Thrombocytopenia -His platelet trends during the course of his admission appear to correlate with clinical improvement followed by acute worsening of his clinical status -His platelet count has decreased from 227 on 07/06/2022 to 41 this morning -This is likely secondary to acute worsening of sepsis secondary to infection having a myelosuppressive effect on the bone marrow -He also has evidence of cirrhosis with hypersplenism, which also could be contributing to his thrombocytopenia -It is possible that Zosyn could also have contributed to his thrombocytopenia -There is no reporting of schistocytes, which makes microangiopathic process less likely -An addition he has a score of 3 when calculating his 4T score, which is associated with a low probability of HIT. PF4 Ab has been sent and is pending (high false positive rate and interpretation is predicated on optical denisty) -Recommend checking for DIC, with labs including fibrinogen, coagulation studies, and d-dimer. Transfuse with 1 unit of cryoprecipitate for fibrinogen less than 100 -Continue to treat underlying infections per primary team #Normocytic to macrocytic anemia -Hemoglobin 9.4 today from 14 on admission with MCVs ranging in the high 90s to mid 100s -Likely due to anemia of inflammation, however other potential etiologies should also be investigated given his intermittent macrocytosis -Recommend checking vitamin B12, folate, ferritin, and iron studies for further assessment We will continue to follow. Thank you for allowing us to participate in Mr. America aguirre' care. Time with Patient: Greater than 30
[2022-07-10 13:58] LABS: INR 1.2 (<1.2); Partial Thromboplastin Time 36.2 sec (22.0-30.0); Prothrombin Time 12.7 sec (9.0-12.0)
[2022-07-10 17:07] LABS: Glucose,Whole Blood 93 mg/dL (70-110)
[2022-07-10] MEDS: NOREPINEPHRINE 32 MG in SODIUM CHLORIDE 0.9% 218 ML IV SCH (17:17)
[2022-07-10] MEDS: SIMETHICONE 40 MG/0.6 ML DROPS 2,000 MG/30 ML BOTTLE PO SCH ×3 (17:18→21:08)
[2022-07-10] MEDS: MELATONIN 5 MG TABLET PO SCH (21:08)
[2022-07-10] MEDS: ALPRAZolam 0.5 MG TAB PO SCH (21:08)
[2022-07-11] MEDS: DILTIAZEM 125 MG in SODIUM CHLORIDE 0.9% 100 ML IV SCH (00:21)
[2022-07-11] MEDS: INSULIN ASPART (NovoLOG) 100 UNIT/ML VIAL SQ SCH ×4 (00:26→21:19)
[2022-07-11 00:27] LABS: Glucose,Whole Blood 107 mg/dL (70-110)
[2022-07-11] MEDS: METOCLOPRAMIDE 5 MG/ML 2 ML VIAL IVP SCH ×4 (01:09→21:20)
[2022-07-11] MEDS: HYDROmorphone 1 MG/ML 1 ML SYRINGE IVP PRN ×3 (03:02→16:22)
[2022-07-11 05:00] LABS: INR 1.2 (<1.2); Prothrombin Time 12.9 sec (9.0-12.0)
[2022-07-11 05:05] LABS: Albumin 2.7 g/dL (3.5-5.0); Calcium 8.2 mg/dL (8.4-10.2); Magnesium 2.2 mg/dL (1.6-2.3); Phosphorus 5.3 mg/dL (2.5-4.5); Potassium 4.1 mmol/L (3.5-5.1); Total Bilirubin 2.7 mg/dL (0.2-1.3); Total Protein 5.8 g/dL (6.3-8.2)
[2022-07-11 05:08] LABS: HCT 30.4 % (39.0-53.0); HGB 9.6 gm/dL (13.0-17.5); Hypochromasia Moderate; MCH 31.4 pg (25.0-35.0); MCHC 31.5 g/dL (31.0-37.0); MCV 99.5 fL (80.0-100.0); Macrocytosis Slight; Mean Platelet Volume 13.9; RBC 3.06 m/uL (4.30-5.90); RDW 14.5 % (11.5-15.5); WBC 8.6 k/uL (3.8-10.6)
[2022-07-11 05:17] LABS: Platelet Count 31 k/uL (150-450)
[2022-07-11 05:29] LABS: Glucose,Whole Blood 96 mg/dL (70-110)
[2022-07-11] MEDS: LEVOTHYROXINE 88 MCG TAB PO SCH (05:33)
[2022-07-11 05:38] LABS: Eosinophils # (M) 0.09 k/uL (0-0.7); Lymphocytes # (M) 1.89 k/uL (1.0-4.8); Monocytes # (M) 1.38 k/uL (0-1.0); Neutrophils # (M) 5.25 k/uL (1.3-7.7); Neutrophils % (M) 61 %; Nucleated Red Blood Cells 0 /100 WBC (0-0); Total Cells Counted 100
[2022-07-11 05:39] LABS: ABG Base Excess 1.3 mmol/L; ABG HCO3 26 mmol/L (21-25); ABG Oxygen Saturation 97.7 % (94-97); ABG PCO2 42 mmHg (35-45); ABG PO2 88 mmHg (83-108); ABG TCO2 27 mmol/L (19-24); Allen Test Performed? Yes
--- NOTE | 2022-07-11 07:06 | P.PN ---
Subjective Progress Note Date: 07/11/22 Principal diagnosis: Acute coronary syndrome The patient is a pleasant 67-year-old patient with a past medical history significant for hypertension and dyslipidemia and also borderline diabetes as well as history of smoking who was admitted to the hospital with a change in mental status. The etiology was unknown. We involved in the care of the patient because her troponin was checked and came in to be unremarkable. His echo showed normal wall motion abnormalities concerning for ischemia but the EKG revealed ST changes appeared to be somewhat dynamic. Because of that the patient was sedated with anticoagulation. He was started on heparin. The following day he developed GI bleeding. The heparin was stopped. Surgery was consulted and he was diagnosed with enteritis. He was treated medically. The hemoglobin has been stable since the heparin was stopped. Subsequently the patient developed acute renal failure. Currently nephrology is on the case. Also the patient did have brief episodes of paroxysmal atrial fibrillation The patient was seen and evaluated this morning. He continues to be intubated on mechanical ventilation. The creatinine is worse. On examination he does have severe bilateral lower extremities edema. He might benefit from IV diuret ics but I would leave that decision to the nephrology service giving his creatinine which is above 4. Currently also he does have severe thrombocytopenia with a platelet count around 30,000. Currently he has been maintaining normal sinus mechanism with sinus bradycardia. Hemodynamically he is stable and not on any vasopressors. Limited echocardiogram was ordered will follow-up with that. The patient is not a candidate to have any oral anticoagulation giving the history of GI bleeding and also the severe thrombocytopenia. Objective - Vital Signs Vital signs: Vital Signs Temp 97.7 F 07/11/22 04:00 Pulse 57 L 07/11/22 06:00 Resp 17 07/11/22 06:00 BP 137/68 07/10/22 15:00 Pulse Ox 95 07/11/22 06:00 FiO2 30 07/11/22 04:00 Intake & Output 07/10/22 07/11/22 07/11/22 18:59 06:59 18:59 Intake Total 476.221 366 Output Total 1425 985 Balance -948.779 -619 Intake: IV 409 156 0.9 @ 10 130 120 Mvi, Adult No.4 with Vit 240 K 10 ml Trace (Conc-1Ml/ Dose) 1 ml Sodium Acetate 40 meq Calcium Gluconate 1 gm In Amino Acid 5%- D15w 1,000 ml @ 40 mls/hr IV .Q24H [facility] Rx#: [id number] Pressure bag 39 36 Intake, IV Titration 67.221 Amount Cefepime 1 gm In Sodium 50 Chloride 0.9% 50 ml @ 12. 5 mls/hr IVPB Q12HR [facility] Rx#:[id number] Norepinephrine 32 mg In 17.221 Sodium Chloride 0.9% 218 ml @ 0.05 MCG/KG/MIN 2. 445 mls/hr IV .Q24H [facility] Rx#:[id number] Tube Feeding 120 Other 90 Output: Gastric Drainage 300 Urine 1125 985 Other: Voiding Method Indwelling Catheter Indwelling Catheter ABP, PAP, CO, CI - Last Documented Arterial Blood Pressure 115/46 - Constitutional General appearance: Present: no acute distress - Respiratory Respiratory: bilateral: diminished - Cardiovascular Rhythm: regular Heart sounds: normal: S1, S2 - Labs CBC & Chem 7: 07/11/22 04:30 07/11/22 04:30 Labs: Abnormal Lab Results - Last 24 Hours (Table) 07/10/22 07/10/22 07/11/22 Range/Units 12:02 13:20 04:30 RBC (4.30-5.90) m/uL Hgb (13.0-17.5) gm/dL Hct (39.0-53.0) % Plt Count (150-450) k/uL Monocytes # (Manual) (0-1.0) k/uL PT 12.7 H 12.9 H (9.0-12.0) sec INR 1.2 H 1.2 H (<1.2) APTT 36.2 H (22.0-30.0) sec D-Dimer 2.15 H (<0.60) mg/L FEU ABG HCO3 (21-25) mmol/L ABG Total CO2 (19-24) mmol/L ABG O2 Saturation (94-97) % Sodium (137-145) mmol/L Chloride (98-107) mmol/L BUN (9-20) mg/dL Creatinine (0.66-1.25) mg/dL POC Glucose (mg/dL) 121 H (70-110) mg/dL Calcium (8.4-10.2) mg/dL Phosphorus (2.5-4.5) mg/dL Total Bilirubin (0.2-1.3) mg/dL AST (17-59) U/L ALT (4-49) U/L Alkaline Phosphatase (38-126) U/L Total Protein (6.3-8.2) g/dL Albumin (3.5-5.0) g/dL 07/11/22 07/11/22 07/11/22 Range/Units 04:30 04:30 05:37 RBC 3.06 L (4.30-5.90) m/uL Hgb 9.6 L (13.0-17.5) gm/dL Hct 30.4 L (39.0-53.0) % Plt Count 31 L (150-450) k/uL Monocytes # (Manual) 1.38 H (0-1.0) k/uL PT (9.0-12.0) sec INR (<1.2) APTT (22.0-30.0) sec D-Dimer (<0.60) mg/L FEU ABG HCO3 26 H (21-25) mmol/L ABG Total CO2 27 H (19-24) mmol/L ABG O2 Saturation 97.7 H (94-97) % Sodium 133 L (137-145) mmol/L Chloride 96 L (98-107) mmol/L BUN 92 H (9-20) mg/dL Creatinine 4.67 H (0.66-1.25) mg/dL POC Glucose (mg/dL) (70-110) mg/dL Calcium 8.2 L (8.4-10.2) mg/dL Phosphorus 5.3 H (2.5-4.5) mg/dL Total Bilirubin 2.7 H (0.2-1.3) mg/dL AST 152 H (17-59) U/L ALT 161 H (4-49) U/L Alkaline Phosphatase 140 H (38-126) U/L Total Protein 5.8 L (6.3-8.2) g/dL Albumin 2.7 L (3.5-5.0) g/dL Assessment and Plan Assessment: Assessment #1 change in mental status #2 sepsis likely to be related to pneumonia #3 evidence of myocardial injury with mildly abnormal troponin #4 acute renal failure which has improved #5 possible gastrointestinal bleeding #6 severe thrombocytopenia #7 paroxysmal atrial fibrillation #8 multiple comorbid conditions Plan #1 continue the current medical regimen #2 the patient has been maintaining normal sinus rhythm with sinus bradycardia and heart rate in the 50s #3 hold on any oral anticoagulation for the atrial fibrillation in the light of severe thrombocytopenia #4 follow-up with the patient #5 follow-up with a limited echocardiogram
[2022-07-11] MEDS: IPRATROPIUM-ALBUTEROL 3 ML NEB INHALATION SCH ×4 (07:23→19:28)
--- NOTE | 2022-07-11 07:23 | P.PN ---
Subjective Progress Note Date: 07/10/22 Principal diagnosis: Bacteremia Patient is a 67 year old male presenting to the hospital in mental status changes and multiple falls did have a low-grade fever and elevated white count now with evidence of bacteremia. Patient is status post paracentesis with removal of 3 L of ascitic fluid completed on 06/30/2022, the patient did have left groin dialysis catheter placement and has been started on dialysis as of 07/05/2022 On today's evaluation that is 07/10/2022, the patient remains to be afebrile, the patient FiO2 is stable at 30%, patient is off pressor support per the nursing staff, no significant purulent secretion through the ET diarrhea or any other changes reported by the nursing staff Objective - Vital Signs Vital signs: Vital Signs Temp 98.2 F 07/10/22 08:00 Pulse 58 L 07/10/22 12:03 Resp 10 L 07/10/22 11:30 BP 137/68 07/09/22 23:30 Pulse Ox 97 07/10/22 11:30 FiO2 30 07/10/22 11:58 Intake & Output 07/09/22 07/10/22 07/10/22 18:59 06:59 18:59 Intake Total 728.645 611.892 368 Output Total 1190 1325 1025 Balance -461.355 -713.108 -657 Intake: IV 524 596 318 0.9 @ 10 120 120 60 Mvi, Adult No.4 with Vit 268 440 240 K 10 ml Trace (Conc-1Ml/ Dose) 1 ml Sodium Acetate 40 meq Calcium Gluconate 1 gm In Amino Acid 5%- D15w 1,000 ml @ 40 mls/hr IV .Q24H [facility] Rx#: [id number] Piperacillin-Tazobactam 3 100 .375 gm In Sodium Chloride 0.9% 100 ml @ 25 mls/hr IVPB Q8HR [facility] Rx# :[id number] Pressure bag 36 36 18 Intake, IV Titration 204.645 15.892 50 Amount Cefepime 1 gm In Sodium 50 Chloride 0.9% 50 ml @ 12. 5 mls/hr IVPB Q12HR [facility] Rx#:[id number] Magnesium Sulfate-D5w Pmx 100 1 gm In Dextrose/Water 1 100ml.bag @ 100 mls/hr IVPB Q1H [facility] Rx#: [id number] Norepinephrine 32 mg In 4.645 15.892 Sodium Chloride 0.9% 218 ml @ 0.05 MCG/KG/MIN 2. 445 mls/hr IV .Q24H [facility] Rx#:[id number] Potassium Chloride 20 meq 100 In Water For Injection 1 100ml.bag @ 50 mls/hr IVPB Q2H [facility] Rx#: [id number] Output: Gastric Drainage 300 300 300 Urine 890 1025 725 Other: Voiding Method Indwelling Catheter Indwelling Catheter Indwelling Catheter ABP, PAP, CO, CI - Last Documented Arterial Blood Pressure 120/46 - Exam GENERAL DESCRIPTION: An elderly male intubated on the vent RESPIRATORY SYSTEM: Unlabored breathing , decreased breath sounds at bases HEART: S1 S2 regular rate and rhythm , ABDOMEN: Soft , no tenderness EXTREMITIES: No edema feet - Labs CBC & Chem 7: 07/11/22 04:30 07/11/22 04:30 Labs: Abnormal Lab Results - Last 24 Hours (Table) 07/09/22 07/09/22 07/10/22 Range/Units 17:46 23:28 04:16 RBC (4.30-5.90) m/uL Hgb (13.0-17.5) gm/dL Hct (39.0-53.0) % Plt Count (150-450) k/uL Monocytes # (Manual) (0-1.0) k/uL ABG pH (7.35-7.45) ABG HCO3 (21-25) mmol/L ABG Total CO2 (19-24) mmol/L ABG O2 Saturation (94-97) % Sodium 133 L (137-145) mmol/L Chloride 97 L (98-107) mmol/L BUN 75 H (9-20) mg/dL Creatinine 3.94 H (0.66-1.25) mg/dL Glucose 117 H (74-99) mg/dL POC Glucose (mg/dL) 118 H 119 H (70-110) mg/dL Calcium 8.0 L (8.4-10.2) mg/dL 07/10/22 07/10/22 07/10/22 Range/Units 04:16 05:15 05:28 RBC 3.03 L (4.30-5.90) m/uL Hgb 9.4 L (13.0-17.5) gm/dL Hct 30.2 L (39.0-53.0) % Plt Count 41 L (150-450) k/uL Monocytes # (Manual) 1.06 H (0-1.0) k/uL ABG pH 7.47 H (7.35-7.45) ABG HCO3 27 H (21-25) mmol/L ABG Total CO2 28 H (19-24) mmol/L ABG O2 Saturation 98.5 H (94-97) % Sodium (137-145) mmol/L Chloride (98-107) mmol/L BUN (9-20) mg/dL Creatinine (0.66-1.25) mg/dL Glucose (74-99) mg/dL POC Glucose (mg/dL) 122 H (70-110) mg/dL Calcium (8.4-10.2) mg/dL 07/10/22 Range/Units 12:02 RBC (4.30-5.90) m/uL Hgb (13.0-17.5) gm/dL Hct (39.0-53.0) % Plt Count (150-450) k/uL Monocytes # (Manual) (0-1.0) k/uL ABG pH (7.35-7.45) ABG HCO3 (21-25) mmol/L ABG Total CO2 (19-24) mmol/L ABG O2 Saturation (94-97) % Sodium (137-145) mmol/L Chloride (98-107) mmol/L BUN (9-20) mg/dL Creatinine (0.66-1.25) mg/dL Glucose (74-99) mg/dL POC Glucose (mg/dL) 121 H (70-110) mg/dL Calcium (8.4-10.2) mg/dL Assessment and Plan (1) Bacteremia Current Visit: Yes Status: Acute Code(s): R78.81 - BACTEREMIA SNOMED Code(s): 2793335 Plan: 1patient with sepsis in this patient who did have a fever elevated white count elevated lactic acid now with evidence of gram-positive bacteremia with a source possible aspiration pneumonia as repeat x-ray did showed increasing density left lower lobe as the patient currently do not have any other obvious focus is abdominal soft on clinical examination no evidence of any joint swelling or cellulitis was noticed. 2blood cultures has been finalized as Streptococcus agalactiae repeat blood cultures have been negative so far 3-repeat CT with evidence of ascites and possible colitis in the left lower quadrant area, patient is status post paracentesis, white count was only 59 and cultures are so far negative 4- Patient with worsening respiratory status requiring intubation possible fluid overload plus minus a component of pneumonia questionable aspiration sputum culture has been obtained which are currently growing Rosanne more likely col onizer, 5-Patient white count has normalized however the patient has developed significant thrombocytopenia for which the patient was taken off the Zosyn and started on cefepime and monitor clinical course closely Time with Patient: Less than 30
[2022-07-11 08:20] LABS: % Iron Saturation 17.3 (15.00-50.00)
--- NOTE | 2022-07-11 09:21 | P.PN ---
Subjective Patient is seen for follow-up for acute kidney injury with severe ATN requiring hemodialysis. Urine output had been low initially however it has picked up now and dialysis has been on hold. Last dialysis on 07/08/2022 Patient is currently on the vent. FiO2 is at 30%. Patient is currently off of levo fed Urine output at 100-1 75 mL an hour Serum creatinine has increased to 4.6 mg/dL today from 3.02 days ago. Objective - Vital Signs Vital signs: Vital Signs Temp 97.7 F 07/11/22 04:00 Pulse 53 L 07/11/22 07:32 Resp 16 07/11/22 07:00 BP 137/68 07/10/22 15:00 Pulse Ox 94 L 07/11/22 07:00 FiO2 30 07/11/22 07:17 Intake & Output 07/10/22 07/11/22 07/11/22 18:59 06:59 18:59 Intake Total 476.221 366 0.342 Output Total 1425 985 Balance -948.779 -619 0.342 Intake: IV 409 156 0.9 @ 10 130 120 Mvi, Adult No.4 with Vit 240 K 10 ml Trace (Conc-1Ml/ Dose) 1 ml Sodium Acetate 40 meq Calcium Gluconate 1 gm In Amino Acid 5%- D15w 1,000 ml @ 40 mls/hr IV .Q24H [facility] Rx#: [id number] Pressure bag 39 36 Intake, IV Titration 67.221 0.342 Amount Cefepime 1 gm In Sodium 50 Chloride 0.9% 50 ml @ 12. 5 mls/hr IVPB Q12HR [facility] Rx#:[id number] Norepinephrine 32 mg In 17.221 0.342 Sodium Chloride 0.9% 218 ml @ 0.05 MCG/KG/MIN 2. 445 mls/hr IV .Q24H [facility] Rx#:[id number] Tube Feeding 120 Other 90 Output: Gastric Drainage 300 Urine 1125 985 Other: Voiding Method Indwelling Catheter Indwelling Catheter ABP, PAP, CO, CI - Last Documented Arterial Blood Pressure 110/44 - Exam Currently intubated and on the vent Patient is awake Examination of the heart S1 and S2 Examination of the lungs bilateral breath sounds are heard Abdomen is soft obese nontender Examination lower extremities shows edema 2+ bilaterally - Labs CBC & Chem 7: 07/11/22 04:30 07/11/22 04:30 Labs: Abnormal Lab Results - Last 24 Hours (Table) 07/10/22 07/10/22 07/10/22 Range/Units 04:16 12:02 13:20 RBC (4.30-5.90) m/uL Hgb (13.0-17.5) gm/dL Hct (39.0-53.0) % Plt Count (150-450) k/uL Monocytes # (Manual) (0-1.0) k/uL PT 12.7 H (9.0-12.0) sec INR 1.2 H (<1.2) APTT 36.2 H (22.0-30.0) sec D-Dimer 2.15 H (<0.60) mg/L FEU ABG HCO3 (21-25) mmol/L ABG Total CO2 (19-24) mmol/L ABG O2 Saturation (94-97) % Sodium (137-145) mmol/L Chloride (98-107) mmol/L BUN (9-20) mg/dL Creatinine (0.66-1.25) mg/dL POC Glucose (mg/dL) 121 H (70-110) mg/dL Calcium (8.4-10.2) mg/dL Phosphorus (2.5-4.5) mg/dL Iron 39 L (65-175) ug/dL TIBC 225 L (228-460) ug/dL Transferrin 161.0 L (204.0-354.0) mg/dL Total Bilirubin (0.2-1.3) mg/dL AST (17-59) U/L ALT (4-49) U/L Alkaline Phosphatase (38-126) U/L Total Protein (6.3-8.2) g/dL Albumin (3.5-5.0) g/dL Vitamin B12 1856.0 H (200.0-944.0) pg/mL 07/11/22 07/11/22 07/11/22 Range/Units 04:30 04:30 04:30 RBC 3.06 L (4.30-5.90) m/uL Hgb 9.6 L (13.0-17.5) gm/dL Hct 30.4 L (39.0-53.0) % Plt Count 31 L (150-450) k/uL Monocytes # (Manual) 1.38 H (0-1.0) k/uL PT 12.9 H (9.0-12.0) sec INR 1.2 H (<1.2) APTT (22.0-30.0) sec D-Dimer (<0.60) mg/L FEU ABG HCO3 (21-25) mmol/L ABG Total CO2 (19-24) mmol/L ABG O2 Saturation (94-97) % Sodium 133 L (137-145) mmol/L Chloride 96 L (98-107) mmol/L BUN 92 H (9-20) mg/dL Creatinine 4.67 H (0.66-1.25) mg/dL POC Glucose (mg/dL) (70-110) mg/dL Calcium 8.2 L (8.4-10.2) mg/dL Phosphorus 5.3 H (2.5-4.5) mg/dL Iron (65-175) ug/dL TIBC (228-460) ug/dL Transferrin (204.0-354.0) mg/dL Total Bilirubin 2.7 H (0.2-1.3) mg/dL AST 152 H (17-59) U/L ALT 161 H (4-49) U/L Alkaline Phosphatase 140 H (38-126) U/L Total Protein 5.8 L (6.3-8.2) g/dL Albumin 2.7 L (3.5-5.0) g/dL Vitamin B12 (200.0-944.0) pg/mL 07/11/22 Range/Units 05:37 RBC (4.30-5.90) m/uL Hgb (13.0-17.5) gm/dL Hct (39.0-53.0) % Plt Count (150-450) k/uL Monocytes # (Manual) (0-1.0) k/uL PT (9.0-12.0) sec INR (<1.2) APTT (22.0-30.0) sec D-Dimer (<0.60) mg/L FEU ABG HCO3 26 H (21-25) mmol/L ABG Total CO2 27 H (19-24) mmol/L ABG O2 Saturation 97.7 H (94-97) % Sodium (137-145) mmol/L Chloride (98-107) mmol/L BUN (9-20) mg/dL Creatinine (0.66-1.25) mg/dL POC Glucose (mg/dL) (70-110) mg/dL Calcium (8.4-10.2) mg/dL Phosphorus (2.5-4.5) mg/dL Iron (65-175) ug/dL TIBC (228-460) ug/dL Transferrin (204.0-354.0) mg/dL Total Bilirubin (0.2-1.3) mg/dL AST (17-59) U/L ALT (4-49) U/L Alkaline Phosphatase (38-126) U/L Total Protein (6.3-8.2) g/dL Albumin (3.5-5.0) g/dL Vitamin B12 (200.0-944.0) pg/mL Assessment and Plan Assessment: 1. Acute kidney injury, severe ATN requiring hemodialysis. Urine output has picked up and hemodialysis currently on hold with last dialysis on 07/08/2022. Serum creatinine has worsened over the last 2-3 days although patient remains with good urine output of 100-175 mL per hour. 2. Possible aspiration pneumonia entertained on cefazolin. Blood culture grew group B Streptococcus 3. Volume overload 4. Liver cirrhosis with ascites status post paracentesis 5. Acute hypoxic respiratory failure currently on the vent 6. Atrial fibrillation Plan: Proceed with hemodialysis today Continue with IV Lasix Continue to avoid nephrotoxic agents We will continue to monitor for recovery of renal function
--- NOTE | 2022-07-11 09:33 | US ---
EXAMINATION TYPE: US abdomen limited DATE OF EXAM: 07/11/2022 COMPARISON: NONE CLINICAL HISTORY: assess for fluid pocket for possible paracentesis. TECHNIQUE: Multiple grayscale ultrasound images of the 4 quadrants of the abdomen were obtained for a ssessment of fluid. Findings: Small amount of anechoic ascites demonstrated within the 4 abdominal quadrants with largest in the midline. IMPRESSION: Small volume ascites.
--- NOTE | 2022-07-11 10:16 | P.PN ---
Subjective Progress Note Date: 07/11/22 Principal diagnosis: Acute mental status changes. Pulmonary consultation dated 06/22/2022. 59-year-old male seen in the emergency department, on June 21. He apparently presented with mental status changes. In addition, he apparently was having multiple falls at home. The patient was seen and evaluated, and admitted to the hospital with a diagnosis of mental status changes, opiate dependence, COPD, acute kidney injury, and he went to the general medical floor. Today, a rapid response was called on this patient, and the patient was transferred down to the intensive care unit. Currently he is on 3 L nasal cannula. He is getting saline at 70 mL an hour, and dexmedetomidine at 1 mcg/kg/h. He apparently has a history of asthma, CVA, GERD, hyperlipidemia, hypertension, echo staxis, anxiety, and chronic tobacco dependence. Labs today include a white count of 21.9, hemoglobin 14.8, hematocrit 45.6, and a platelet count of 118,000. D- dimer is 2.12. PT is 15 with an INR 1.4. Blood gases, show pO2 of 117, pCO2 31, pH is 7.42. That was on 50% oxygen. Sodium 131, potassium 4.9, chlorides 100, CO2 22, BUN 52, and creatinine 1.28. Lactic acid was elevated at 5.9. I've asked the nurse to give the patient a liter of lactated Ringer's. Troponin was 0.237. Urine is got trace protein and trace glucose. Leukocyte esterase and nitrate were both negative. Drug screen was positive for opiates. Nasal swab testing was negative for coronavirus. Chest x-ray on admission was negative for an acute process. Head CT initially did not show anything acute. A repeat chest x-ray today showed increased interstitial densities in the left lower lobe. Progress note dated 06/23/2022. This is a 59-year-old male who was seen yesterday in consultation. He was initially seen on June 21 in the emergency room with mental status changes. The patient was transferred to the intensive care unit, because of worsening mental status, and some cardiovascular issues. Currently, the patient is on 3 L nasal cannula. He is getting lactated Ringer's at 75 mL an hour. He is on vancomycin and Unasyn. Was on Rocephin. He has been seen by infectious diseases and neurology. His CT angiogram was negative. Initially heparin was discontinued, but because of EKG changes, he'll be restarted. He is also on dexmedetomidine at 0.3 mcg/kg/h. I did speak to neurology about possible viral encephalitis, and we discussed the possibility of lumbar puncture, and acyclovir IV. White count 15.4, hemoglobin 13.2, hematocrit 41.5, and platelet count 225,000. Sodium, potassium, chloride, CO2, are all normal. BUN 66, and creatinine 0.89. Group B streptococci are in the blood cultures. Reevaluated today on 07/08/22, remains in the ICU intubated and mechanically ventilated. Patient is now on assist control rate of 24-500 FiO2 30% PEEP of 5 ABG showed a pO2 of 75 pCO2 43 pH of 7.42 patient remains on 30% FiO2. He is on TPN at 47 mL/h is also on Zosyn empirically. His abdomen remains distended and the patient continues to have ascites, I'm recommending interventional radiology to evaluate for possible paracentesis again on this patient. Patient has been off propofol since yesterday, he is arousable, opens his eyes, wiggling his toes, but remains very generally weak. We'll continue to hold propofol. In the meantime patient is not quite ready for weaning trials, but that is to be considered down the line. Patient remains on dialysis. Labs today showed relat ively normal electrolytes, BMI 57 creatinine 2.88. CBC is relatively unremarkable. Chest x-ray continues to show mild interstitial edema, and small left and right pleural effusion Reevaluated today on 07/09/22, remains in the ICU intubated mechanically ventilated patient is off propofol now for almost 2 days. Patient is arousable and follows very simple instructions like squeezing hands and wiggling toes however he is extremely generally weak. He is on assist control rate of 24th of volume 500 FiO2 30% PEEP of 5. ABG showed a pO2 of 78 pCO2 38 pH of 7.44 Patient is on small dose of norepinephrine at 0.02 mcg/kg/m is also on TPN at 47 mL/h. Chest x-ray continues to show improvement in his infiltrates/edema , patient remains on hemodialysis he had dialysis yesterday and 3.3 L were taken off. Patient may have a repeat paracentesis next Monday. WBC count today is 8.1 hemoglobin is 9.2. Basic metabolic profile is normal except for low potassium of 3.0 BUN is 55 creatinine 3.03. Today the patient would have a trial of pressure support and CPAP. Reevaluated today on 07/10/22, patient remains in the ICU intubated and mechanically ventilated, remains off propofol, remains on assist control rate of 24 to volume 500 FiO2 30% PEEP of 5, ABG showed a pO2 of 90 pCO2 of 37 pH of 7.47, CBC is relatively unremarkable. Basic metabolic profile is normal BUN is 75 creatinine 3.94, chest x-ray continues to show steady improvement in his interstitial edema and infiltrates. Clinically the patient seems to be more awake today, he remains off propofol, and I will go ahead and give the patient a trial of weaning if possible today. However after initiation of pressure support and CPAP, I was notified by the respiratory therapist that the patient has apnea episodes, and I recommended that we go on a pressure support of 10, IMV rate of 10, and continue same FiO2, continue same PEEP. The plan is to gradually go down the IMV rate by 2 every 2 hours. And hopefully we could avoid any further apnea episodes and may even consider extubating the patient if he tolerates this modality otherwise may keep him again on mechanical ventilation overnight with IMV and pressure support Progress note dated 07/11/2022. This is a 67-year-old male who was admitted back on June 21, for mental status changes. The patient was intubated on July 04, and remains on the mechanical ventilator. I saw him initially back on June 22 and . Currently, he is on the SIMV mode, rate 6, tidal volume 500, FiO2 30%, and PEEP of 5. Blood gases show pO2 of 88, pCO2 42, 7.4. The patient's getting saline at 10 mL an hour. Norepinephrine has been weaned off. Is getting Nepro at 10 mL an hour. He is also been weaned off. Microbiologic studies are negative. The patient remains on cefepime. The patient is apparently going to have a paracentesis performed by interventional radiology today. In addition, we'll get a repeat chest x-ray, and sometime later today, give the patient a spontaneous breathing trial. 6, 9.6, hematocrit 30.4, platelet count 31,000. PT is 12.9, with an INR 1.2. Sodium 133, potassium 4.1, chlorides 96, CO2 24, anion gap 13, BUN 92, and creatinine 4.67. AST is 152 with an ALT of 161. Blood cultures back from June 22 show evidence of group B streptococci. Chest x-ray from today shows relatively clear lung amado. Objective - Vital Signs Vital signs: Vital Signs Temp 97.7 F 07/11/22 04:00 Pulse 53 L 07/11/22 07:32 Resp 16 07/11/22 07:00 BP 137/68 07/10/22 15:00 Pulse Ox 94 L 07/11/22 07:00 FiO2 30 07/11/22 07:17 Intake & Output 07/10/22 07/11/22 07/11/22 18:59 06:59 18:59 Intake Total 476.221 366 0.342 Output Total 1425 985 Balance -948.779 -619 0.342 Intake: IV 409 156 0.9 @ 10 130 120 Mvi, Adult No.4 with Vit 240 K 10 ml Trace (Conc-1Ml/ Dose) 1 ml Sodium Acetate 40 meq Calcium Gluconate 1 gm In Amino Acid 5%- D15w 1,000 ml @ 40 mls/hr IV .Q24H [facility] Rx#: [id number] Pressure bag 39 36 Intake, IV Titration 67.221 0.342 Amount Cefepime 1 gm In Sodium 50 Chloride 0.9% 50 ml @ 12. 5 mls/hr IVPB Q12HR [facility] Rx#:[id number] Norepinephrine 32 mg In 17.221 0.342 Sodium Chloride 0.9% 218 ml @ 0.05 MCG/KG/MIN 2. 445 mls/hr IV .Q24H [facility] Rx#:[id number] Tube Feeding 120 Other 90 Output: Gastric Drainage 300 Urine 1125 985 Other: Voiding Method Indwelling Catheter Indwelling Catheter ABP, PAP, CO, CI - Last Documented Arterial Blood Pressure 110/44 - Exam No acute distress, currently intubated, but not on any sedatives. HEENT examination is grossly unremarkable. Neck supple. Full range of motion. No adenopathy thyromegaly or neck vein distention. Cardiovascular examination reveals regular rhythm rate. S1-S2 normal. No S3 or S4. No discernible murmur noted. Heart rate 53 bpm. Heart sounds are distant. Lungs reveal mostly clear breath sounds. Breath sounds are equal bilaterally. Scattered rhonchi are noted. No wheezes or crackles. Saturations are 94%. Abdomen soft bowel sounds are heard. No masses or tenderness. Extremities reveal some mild edema. No cyanosis or clubbing. Skin reveals some chronic venous stasis changes. Neurologic examination reveals an awake, asking for the endotracheal tube be removed - Labs CBC & Chem 7: 07/11/22 04:30 07/11/22 04:30 Labs: Abnormal Lab Results - Last 24 Hours (Table) 07/10/22 07/10/22 07/10/22 Range/Units 04:16 12:02 13:20 RBC (4.30-5.90) m/uL Hgb (13.0-17.5) gm/dL Hct (39.0-53.0) % Plt Count (150-450) k/uL Monocytes # (Manual) (0-1.0) k/uL PT 12.7 H (9.0-12.0) sec INR 1.2 H (<1.2) APTT 36.2 H (22.0-30.0) sec D-Dimer 2.15 H (<0.60) mg/L FEU ABG HCO3 (21-25) mmol/L ABG Total CO2 (19-24) mmol/L ABG O2 Saturation (94-97) % Sodium (137-145) mmol/L Chloride (98-107) mmol/L BUN (9-20) mg/dL Creatinine (0.66-1.25) mg/dL POC Glucose (mg/dL) 121 H (70-110) mg/dL Calcium (8.4-10.2) mg/dL Phosphorus (2.5-4.5) mg/dL Iron 39 L (65-175) ug/dL TIBC 225 L (228-460) ug/dL Transferrin 161.0 L (204.0-354.0) mg/dL Total Bilirubin (0.2-1.3) mg/dL AST (17-59) U/L ALT (4-49) U/L Alkaline Phosphatase (38-126) U/L Total Protein (6.3-8.2) g/dL Albumin (3.5-5.0) g/dL Vitamin B12 1856.0 H (200.0-944.0) pg/mL 07/11/22 07/11/22 07/11/22 Range/Units 04:30 04:30 04:30 RBC 3.06 L (4.30-5.90) m/uL Hgb 9.6 L (13.0-17.5) gm/dL Hct 30.4 L (39.0-53.0) % Plt Count 31 L (150-450) k/uL Monocytes # (Manual) 1.38 H (0-1.0) k/uL PT 12.9 H (9.0-12.0) sec INR 1.2 H (<1.2) APTT (22.0-30.0) sec D-Dimer (<0.60) mg/L FEU ABG HCO3 (21-25) mmol/L ABG Total CO2 (19-24) mmol/L ABG O2 Saturation (94-97) % Sodium 133 L (137-145) mmol/L Chloride 96 L (98-107) mmol/L BUN 92 H (9-20) mg/dL Creatinine 4.67 H (0.66-1.25) mg/dL POC Glucose (mg/dL) (70-110) mg/dL Calcium 8.2 L (8.4-10.2) mg/dL Phosphorus 5.3 H (2.5-4.5) mg/dL Iron (65-175) ug/dL TIBC (228-460) ug/dL Transferrin (204.0-354.0) mg/dL Total Bilirubin 2.7 H (0.2-1.3) mg/dL AST 152 H (17-59) U/L ALT 161 H (4-49) U/L Alkaline Phosphatase 140 H (38-126) U/L Total Protein 5.8 L (6.3-8.2) g/dL Albumin 2.7 L (3.5-5.0) g/dL Vitamin B12 (200.0-944.0) pg/mL 07/11/22 Range/Units 05:37 RBC (4.30-5.90) m/uL Hgb (13.0-17.5) gm/dL Hct (39.0-53.0) % Plt Count (150-450) k/uL Monocytes # (Manual) (0-1.0) k/uL PT (9.0-12.0) sec INR (<1.2) APTT (22.0-30.0) sec D-Dimer (<0.60) mg/L FEU ABG HCO3 26 H (21-25) mmol/L ABG Total CO2 27 H (19-24) mmol/L ABG O2 Saturation 97.7 H (94-97) % Sodium (137-145) mmol/L Chloride (98-107) mmol/L BUN (9-20) mg/dL Creatinine (0.66-1.25) mg/dL POC Glucose (mg/dL) (70-110) mg/dL Calcium (8.4-10.2) mg/dL Phosphorus (2.5-4.5) mg/dL Iron (65-175) ug/dL TIBC (228-460) ug/dL Transferrin (204.0-354.0) mg/dL Total Bilirubin (0.2-1.3) mg/dL AST (17-59) U/L ALT (4-49) U/L Alkaline Phosphatase (38-126) U/L Total Protein (6.3-8.2) g/dL Albumin (3.5-5.0) g/dL Vitamin B12 (200.0-944.0) pg/mL Assessment and Plan Assessment: Acute mental status changes, rapid respiratory rate, tachycardia, and elevated lactic acid, rule out either sepsis, or a primary neurologic event, status post intubation and mechanical ventilation on 07/04/2022. Ascites, status post paracentesis abdominis. Acute kidney injury, requiring hemodialysis. History of CVA. History of hypertension. History of hyperlipidemia. History of asthma. History of gastroesophageal reflux disease. History of anxiety. History of chronic back. History of epistaxis. Plan: Plan dated 06/22/2022 The patient was transferred down to the intensive care. The patient is going for a computed tomography scan of the chest, to rule out pulmonary embolism. I've asked the nurses to switch his fluids to lactated Ringer's, and give him a bolus. In addition, I've asked the nurse to consult neurology for his mental status changes. Labs, x-rays, and medications are all reviewed. Prognosis is guarded. The patient is not very active at home. Plan dated 06/23/2022. The patient is currently on vancomycin and Unasyn. Blood cultures were positive for group B streptococci. I did discuss with neurology, and LP, and also the initiation of acyclovir. The patient appears to be a bit better today than he was yesterday. He still is on dexmedetomidine though. His vital signs seem reasonably stable. CTA was negative for pulmonary embolism. He had some EKG changes and will be started back on IV heparin. We will continue to follow make recommendations where appropriate. Prognosis is very guarded. Plan dated 07/11/2022. Norepinephrine has been weaned off. TPN has also been weaned off. The patient remains on the mechanical ventilator. He's not getting any sedatives. We will attempt to do a weaning trial on him, with possible extubation. Chest x-ray will be done in advance. Also, we will await interventional radiology performing the paracentesis abdominis. Labs, x-rays, and medications are reviewed. Microbiologic studies are negative. The patient does remain on cefepime. Overall prognosis remains very guarded. Time with Patient: Greater than 30
[2022-07-11] MEDS: CHLORHEXIDINE GLUCONATE 15 ML CUP MUCOUS MEM SCH ×2 (10:42→21:04)
--- NOTE | 2022-07-11 11:22 | P.PN ---
Subjective Progress Note Date: 07/11/22 Principal diagnosis: Acute kidney injury Patient is seen and examined in as a follow-up. He remains in the ICU and intubated, the are trying to wean his sedation. He was more awake today. This is a follow-up for temporary dialysis catheter that was placed. He has reportedly improved on urine output and has not had any hemodialysis since 07/08/2022, however hemodialysis nurse states he will get a treatment today. They do not believe he will need a permanent catheter. Objective - Vital Signs Vital signs: Vital Signs Temp 97.7 F 07/11/22 04:00 Pulse 53 L 07/11/22 07:32 Resp 16 07/11/22 07:00 BP 137/68 07/10/22 15:00 Pulse Ox 94 L 07/11/22 07:00 FiO2 30 07/11/22 11:01 Intake & Output 07/10/22 07/11/22 07/11/22 18:59 06:59 18:59 Intake Total 476.221 366 0.342 Output Total 1425 985 Balance -948.779 -619 0.342 Intake: IV 409 156 0.9 @ 10 130 120 Mvi, Adult No.4 with Vit 240 K 10 ml Trace (Conc-1Ml/ Dose) 1 ml Sodium Acetate 40 meq Calcium Gluconate 1 gm In Amino Acid 5%- D15w 1,000 ml @ 40 mls/hr IV .Q24H [facility] Rx#: [id number] Pressure bag 39 36 Intake, IV Titration 67.221 0.342 Amount Cefepime 1 gm In Sodium 50 Chloride 0.9% 50 ml @ 12. 5 mls/hr IVPB Q12HR [facility] Rx#:[id number] Norepinephrine 32 mg In 17.221 0.342 Sodium Chloride 0.9% 218 ml @ 0.05 MCG/KG/MIN 2. 445 mls/hr IV .Q24H [facility] Rx#:[id number] Tube Feeding 120 Other 90 Output: Gastric Drainage 300 Urine 1125 985 Other: Voiding Method Indwelling Catheter Indwelling Catheter ABP, PAP, CO, CI - Last Documented Arterial Blood Pressure 110/44 - Exam General appearance: The patient is intubated, awake HET: Head is normocephalic and atraumatic. Neck: Supple without lymphadenopathy. Trachea midline. Heart: S1 S2. Regular rate and rhythm. Lungs: Crackles at bases. Abdomen: Soft, nondistended. Extremities: Bilateral lower extremity edema. Left groin with HD catheter in place with dressing. Neurological: Awake, intubated. - Labs CBC & Chem 7: 07/11/22 04:30 07/11/22 04:30 Labs: Abnormal Lab Results - Last 24 Hours (Table) 07/10/22 07/10/22 07/10/22 Range/Units 04:16 12:02 13:20 RBC (4.30-5.90) m/uL Hgb (13.0-17.5) gm/dL Hct (39.0-53.0) % Plt Count (150-450) k/uL Monocytes # (Manual) (0-1.0) k/uL PT 12.7 H (9.0-12.0) sec INR 1.2 H (<1.2) APTT 36.2 H (22.0-30.0) sec D-Dimer 2.15 H (<0.60) mg/L FEU ABG HCO3 (21-25) mmol/L ABG Total CO2 (19-24) mmol/L ABG O2 Saturation (94-97) % Sodium (137-145) mmol/L Chloride (98-107) mmol/L BUN (9-20) mg/dL Creatinine (0.66-1.25) mg/dL POC Glucose (mg/dL) 121 H (70-110) mg/dL Calcium (8.4-10.2) mg/dL Phosphorus (2.5-4.5) mg/dL Iron 39 L (65-175) ug/dL TIBC 225 L (228-460) ug/dL Transferrin 161.0 L (204.0-354.0) mg/dL Total Bilirubin (0.2-1.3) mg/dL AST (17-59) U/L ALT (4-49) U/L Alkaline Phosphatase (38-126) U/L Total Protein (6.3-8.2) g/dL Albumin (3.5-5.0) g/dL Vitamin B12 1856.0 H (200.0-944.0) pg/mL 07/11/22 07/11/22 07/11/22 Range/Units 04:30 04:30 04:30 RBC 3.06 L (4.30-5.90) m/uL Hgb 9.6 L (13.0-17.5) gm/dL Hct 30.4 L (39.0-53.0) % Plt Count 31 L (150-450) k/uL Monocytes # (Manual) 1.38 H (0-1.0) k/uL PT 12.9 H (9.0-12.0) sec INR 1.2 H (<1.2) APTT (22.0-30.0) sec D-Dimer (<0.60) mg/L FEU ABG HCO3 (21-25) mmol/L ABG Total CO2 (19-24) mmol/L ABG O2 Saturation (94-97) % Sodium 133 L (137-145) mmol/L Chloride 96 L (98-107) mmol/L BUN 92 H (9-20) mg/dL Creatinine 4.67 H (0.66-1.25) mg/dL POC Glucose (mg/dL) (70-110) mg/dL Calcium 8.2 L (8.4-10.2) mg/dL Phosphorus 5.3 H (2.5-4.5) mg/dL Iron (65-175) ug/dL TIBC (228-460) ug/dL Transferrin (204.0-354.0) mg/dL Total Bilirubin 2.7 H (0.2-1.3) mg/dL AST 152 H (17-59) U/L ALT 161 H (4-49) U/L Alkaline Phosphatase 140 H (38-126) U/L Total Protein 5.8 L (6.3-8.2) g/dL Albumin 2.7 L (3.5-5.0) g/dL Vitamin B12 (200.0-944.0) pg/mL 07/11/22 Range/Units 05:37 RBC (4.30-5.90) m/uL Hgb (13.0-17.5) gm/dL Hct (39.0-53.0) % Plt Count (150-450) k/uL Monocytes # (Manual) (0-1.0) k/uL PT (9.0-12.0) sec INR (<1.2) APTT (22.0-30.0) sec D-Dimer (<0.60) mg/L FEU ABG HCO3 26 H (21-25) mmol/L ABG Total CO2 27 H (19-24) mmol/L ABG O2 Saturation 97.7 H (94-97) % Sodium (137-145) mmol/L Chloride (98-107) mmol/L BUN (9-20) mg/dL Creatinine (0.66-1.25) mg/dL POC Glucose (mg/dL) (70-110) mg/dL Calcium (8.4-10.2) mg/dL Phosphorus (2.5-4.5) mg/dL Iron (65-175) ug/dL TIBC (228-460) ug/dL Transferrin (204.0-354.0) mg/dL Total Bilirubin (0.2-1.3) mg/dL AST (17-59) U/L ALT (4-49) U/L Alkaline Phosphatase (38-126) U/L Total Protein (6.3-8.2) g/dL Albumin (3.5-5.0) g/dL Vitamin B12 (200.0-944.0) pg/mL Assessment and Plan Assessment: 1. Acute kidney injury requiring hemodialysis 2. Hyperkalemia 3. Acute hypoxic respiratory failure 4. Bacteremia Plan: Continue with recommendations from nephrology. Thank you for this consultation, we will sign off at this time The impression and plan of care has been dictated as directed. Dr. Russo I performed a history and examination of this patient, discussed the same with the dictator. I agree with the dictator's note ,documented as a scribe. Any additional findings or plans will be noted.[id number]
--- NOTE | 2022-07-11 11:22 | P.PN ---
Subjective Progress Note Date: 07/11/22 CHIEF COMPLAINT: Abdominal distention HISTORY OF PRESENT ILLNESS: Patient in the ICU. Patient remains intubated and sedated. Norepinephrine has been weaned off. TPN weaned off. Patient is receiving hemodialysis this morning. He is on IV lasix. Patient was scheduled for paracentesis today. However that is on hold due to platelet count of 31 and abdominal ultrasound showing only a small amount of ascites. Patient is currently on Nepro 10 for nutrition. Pulmonary service attempting a weaning t rial today. Afebrile. WBC is 8.6 Hgb 9.6 platelets 31 INR 1.2 creatinine 4.6 PHYSICAL EXAM: VITAL SIGNS: Reviewed GENERAL: Patient is intubated HEENT: No sclera icterus.Moist buccal mucosa. Head is atraumatic, normocephalic. NECK: Supple without lymphadenopathy. CHEST: Non-labored respirations and equal bilateral excursions. CARDIOVASCULAR: Palpable 2+ radial pulses. ABDOMEN: Soft. distended MUSCULOSKELETAL: No clubbing or cyanosis. NEUROLOGIC: Intubated and sedated SKIN: Well perfused. Good skin turgor. ASSESSMENT: 1. Duodenitis and jejunitis 2. Enteritis 3. Gastritis 4. Cirrhosis with abdominal ascites 5. Leukocytosis 6. Ileus 7. GI bleed resolved 8. Acute respiratory failure 9. Acute kidney injury PLAN: -Continue ICU management -Continue supportive care -Continue to monitor -GI prophylaxis Protonix and DVT prophylaxis Lovenox Physician Buckle Frame Shaper note has been reviewed by physician. Signing provider agrees with the documented findings, assessment, and plan of care. I have personally seen and examined the patient, reviewed the CONCRETE BOOM OPERATOR /PAs history, exam and MDM and agree with the assessment and plan as written. Based on total visit time, I have performed more than 50% of the visit. As above: Patient was intubated last week while I was off the service. Etiology for the patient's pulmonary failure remains somewhat unclear. His leukocytosis however has normalized at this point. His abdomen is soft and paracentesis which had been planned is now placed on hold. Patient is currently undergoing weaning trials from the ventilator. He is tolerating tube feeds with some loose stools. Will continue to follow along with you. Objective - Vital Signs Vital signs: Vital Signs Temp 97.7 F 07/11/22 04:00 Pulse 53 L 07/11/22 07:32 Resp 16 07/11/22 07:00 BP 137/68 07/10/22 15:00 Pulse Ox 94 L 07/11/22 07:00 FiO2 30 07/11/22 11:01 Intake & Output 07/10/22 07/11/22 07/11/22 18:59 06:59 18:59 Intake Total 476.221 366 0.342 Output Total 1425 985 Balance -948.779 -619 0.342 Intake: IV 409 156 0.9 @ 10 130 120 Mvi, Adult No.4 with Vit 240 K 10 ml Trace (Conc-1Ml/ Dose) 1 ml Sodium Acetate 40 meq Calcium Gluconate 1 gm In Amino Acid 5%- D15w 1,000 ml @ 40 mls/hr IV .Q24H [facility] Rx#: [id number] Pressure bag 39 36 Intake, IV Titration 67.221 0.342 Amount Cefepime 1 gm In Sodium 50 Chloride 0.9% 50 ml @ 12. 5 mls/hr IVPB Q12HR [facility] Rx#:[id number] Norepinephrine 32 mg In 17.221 0.342 Sodium Chloride 0.9% 218 ml @ 0.05 MCG/KG/MIN 2. 445 mls/hr IV .Q24H [facility] Rx#:[id number] Tube Feeding 120 Other 90 Output: Gastric Drainage 300 Urine 1125 985 Other: Voiding Method Indwelling Catheter Indwelling Catheter ABP, PAP, CO, CI - Last Documented Arterial Blood Pressure 110/44 - Labs CBC & Chem 7: 07/11/22 04:30 07/11/22 04:30 Labs: Abnormal Lab Results - Last 24 Hours (Table) 07/10/22 07/10/22 07/10/22 Range/Units 04:16 12:02 13:20 RBC (4.30-5.90) m/uL Hgb (13.0-17.5) gm/dL Hct (39.0-53.0) % Plt Count (150-450) k/uL Monocytes # (Manual) (0-1.0) k/uL PT 12.7 H (9.0-12.0) sec INR 1.2 H (<1.2) APTT 36.2 H (22.0-30.0) sec D-Dimer 2.15 H (<0.60) mg/L FEU ABG HCO3 (21-25) mmol/L ABG Total CO2 (19-24) mmol/L ABG O2 Saturation (94-97) % Sodium (137-145) mmol/L Chloride (98-107) mmol/L BUN (9-20) mg/dL Creatinine (0.66-1.25) mg/dL POC Glucose (mg/dL) 121 H (70-110) mg/dL Calcium (8.4-10.2) mg/dL Phosphorus (2.5-4.5) mg/dL Iron 39 L (65-175) ug/dL TIBC 225 L (228-460) ug/dL Transferrin 161.0 L (204.0-354.0) mg/dL Total Bilirubin (0.2-1.3) mg/dL AST (17-59) U/L ALT (4-49) U/L Alkaline Phosphatase (38-126) U/L Total Protein (6.3-8.2) g/dL Albumin (3.5-5.0) g/dL Vitamin B12 1856.0 H (200.0-944.0) pg/mL 07/11/22 07/11/22 07/11/22 Range/Units 04:30 04:30 04:30 RBC 3.06 L (4.30-5.90) m/uL Hgb 9.6 L (13.0-17.5) gm/dL Hct 30.4 L (39.0-53.0) % Plt Count 31 L (150-450) k/uL Monocytes # (Manual) 1.38 H (0-1.0) k/uL PT 12.9 H (9.0-12.0) sec INR 1.2 H (<1.2) APTT (22.0-30.0) sec D-Dimer (<0.60) mg/L FEU ABG HCO3 (21-25) mmol/L ABG Total CO2 (19-24) mmol/L ABG O2 Saturation (94-97) % Sodium 133 L (137-145) mmol/L Chloride 96 L (98-107) mmol/L BUN 92 H (9-20) mg/dL Creatinine 4.67 H (0.66-1.25) mg/dL POC Glucose (mg/dL) (70-110) mg/dL Calcium 8.2 L (8.4-10.2) mg/dL Phosphorus 5.3 H (2.5-4.5) mg/dL Iron (65-175) ug/dL TIBC (228-460) ug/dL Transferrin (204.0-354.0) mg/dL Total Bilirubin 2.7 H (0.2-1.3) mg/dL AST 152 H (17-59) U/L ALT 161 H (4-49) U/L Alkaline Phosphatase 140 H (38-126) U/L Total Protein 5.8 L (6.3-8.2) g/dL Albumin 2.7 L (3.5-5.0) g/dL Vitamin B12 (200.0-944.0) pg/mL 07/11/22 Range/Units 05:37 RBC (4.30-5.90) m/uL Hgb (13.0-17.5) gm/dL Hct (39.0-53.0) % Plt Count (150-450) k/uL Monocytes # (Manual) (0-1.0) k/uL PT (9.0-12.0) sec INR (<1.2) APTT (22.0-30.0) sec D-Dimer (<0.60) mg/L FEU ABG HCO3 26 H (21-25) mmol/L ABG Total CO2 27 H (19-24) mmol/L ABG O2 Saturation 97.7 H (94-97) % Sodium (137-145) mmol/L Chloride (98-107) mmol/L BUN (9-20) mg/dL Creatinine (0.66-1.25) mg/dL POC Glucose (mg/dL) (70-110) mg/dL Calcium (8.4-10.2) mg/dL Phosphorus (2.5-4.5) mg/dL Iron (65-175) ug/dL TIBC (228-460) ug/dL Transferrin (204.0-354.0) mg/dL Total Bilirubin (0.2-1.3) mg/dL AST (17-59) U/L ALT (4-49) U/L Alkaline Phosphatase (38-126) U/L Total Protein (6.3-8.2) g/dL Albumin (3.5-5.0) g/dL Vitamin B12 (200.0-944.0) pg/mL
[2022-07-11 11:29] LABS: Glucose,Whole Blood 90 mg/dL (70-110)
[2022-07-11 13:16] LABS: ABG Base Excess -0.5 mmol/L; ABG HCO3 25 mmol/L (21-25); ABG Oxygen Saturation 95.1 % (94-97); ABG PCO2 47 mmHg (35-45); ABG PH 7.34 (7.35-7.45); ABG PO2 75 mmHg (83-108); ABG TCO2 27 mmol/L (19-24)
[2022-07-11 13:18] LABS: Allen Test Performed? no
[2022-07-11] MEDS: CEFEPIME 1 GM in SODIUM CHLORIDE 0.9% 50 ML IVPB SCH ×2 (14:14→21:03)
[2022-07-11] MEDS: PANTOPRAZOLE 40 MG/10 ML VIAL IVP SCH ×2 (14:15→21:04)
[2022-07-11] MEDS: FUROSEMIDE 10 MG/ML 10 ML VIAL IV SCH (14:15)
[2022-07-11] MEDS: NICOTINE 14MG/24HR PATCH TRANSDERM SCH ×2 (14:16→14:58)
[2022-07-11] MEDS: ATORVASTATIN 40 MG TAB PO SCH (14:48)
[2022-07-11] MEDS: METOPROLOL SUCCINATE (ER) 100 MG TAB.ER.24H PO SCH (14:49)
[2022-07-11] MEDS: NOREPINEPHRINE 32 MG in SODIUM CHLORIDE 0.9% 218 ML IV SCH (14:50)
[2022-07-11] MEDS: NICOTINE 7MG/24HR PATCH TRANSDERM SCH (16:26)
--- NOTE | 2022-07-11 17:43 | P.PN ---
Subjective Progress Note Date: 07/11/22 Ag Souza, is a 67-year-old male who presented to [facility] emergency room after having a multiple falls at home, has significant mental status changes with somnolence and poor responsiveness, history per his , over the last 24 hours patient has been not feeling well, he fell twice at home, on the second time she was not able to wake him up and get him up from the floor through the bed, she called EMS and he was brought into emergency room. He was evaluated in the emergency room vital examination on presentation revealed a temperature of 97.3 pulse 82 respiration 16 blood pressure 121/67 pulse ox 97% on room air Laboratory data revealed a white blood count of 23.2 hemoglobin 14.4 platelet count 98,000 sodium 129 potassium 4.9 chloride 96 CO2 25 BUN 51 creatinine 2.24 troponin level was 0.02 COVID-19 testing was negative Testing in the emergency room revealed chest x-ray done in the emergency room did not reveal significant abnormality. Patient has a known history of degenerative disc disease with chronic pain maintained on narcotics for pain management he was given Narcan in the emergency room which led to improvement in his mental status. Patient was admitted to medical floor for further evaluation and treatment. On 06/22/2022 patient was seen and examined on the telemetry floor he is still somnolent, agitated, pulling on his IV line, he was started through the night on IV Ativan, vital examination reveals a temperature of 98.4 pulse 132 respiration 24 blood pressure 172/91 pulse ox 96% on 2 L nasal cannula, white blood count is 21.9 hemoglobin 14.8 platelet count 118 d-dimer was elevated at 2.12 at this time will start patient on IV heparin high-intensity for possible pulmonary embolism, his kidney function is still elevated, will defer computed tomography scan this time, he is not cooperative to proceed with VQ scan, will continue with IV fluid, nephrology consultation and infectious disease consultation were requested. On 06/23/2022 patient was seen and examined in the ICU he is more alert and oriented today vital exam reveals a temperature of 98.2 pulse 86 respiration 23 blood pressure 138/79 pulse ox 93% on 2 L nasal cannula white blood count is down to 15.4 hemoglobin 13.2 platelet count 125 kidney function improved with BUN at 66 and creatinine at 0.89 kidney ultrasound was done and revealed no evidence of renal stones or obstruction, CT angiogram of the chest was done and there was no evidence of pulmonary embolism, blood culture were positive for Streptococcus group b , patient is currently maintained on IV Unasyn, IV vanc omycin and IV acyclovir, cardiology, pulmonary, nephrology, neurology and infectious disease are following On 06/24/2022 patient was seen and examined in the ICU he is more alert and oriented today kidney ultrasound was done and revealed no evidence of renal stones or obstruction, CT angiogram of the chest was done and there was no evidence of pulmonary embolism, blood culture were positive for Streptococcus group b , patient is currently maintained on IV Unasyn, IV vancomycin and IV acyclovir, cardiology, pulmonary, nephrology, neurology and infectious disease are following. Patient had a maroon colored stools through the night, GI consultation is not available this week, surgical consultation was requested for evaluation for possible GI bleed On 06/25/2022 patient was seen and examined in the ICU, he is more alert and responsive today, there is no fever or chills no headache or dizziness no chest pain no shortness of breath no cough no nausea or vomiting no abdominal pain no diarrhea and no urinary symptoms. IV heparin has been discontinued, at this time will start subcu Lovenox for DVT prophylaxis, he remains on IV antibiotics cefazolin 2 g IV every 8 hours. On 06/26/2022 patient was seen and examined in the ICU he is alert and oriented 3 in no apparent distress he is complaining of abdominal discomfort otherwise he denies any complaint at this time there is no fever or chills no headache or dizziness no chest pain no shortness of breath no cough no nausea or vomiting no diarrhea no blood in the stools no burning with urination no frequency or urgency and no hematuria. On 06/27/2022 patient was seen and examined on in the ICU he is alert and oriented 3, he is feeling better, he had multiple bowel movements and his abdominal pain has improved, he is still complaining of difficulty sleeping at night otherwise he denies any complaints there is no fever or chills no headache or dizziness no chest pain no shortness of breath no cough no nausea or vomiting no abdominal pain no diarrhea no blood in the stools no burning with urination no frequency or urgency and no hematuria. On 06/28/2022 patient was seen and examined on the medical floor he is alert and oriented 3 in no distress there is no fever or chills no headache or dizziness no chest pain no shortness of breath no cough no nausea or vomiting no abdominal pain no diarrhea, no blood in the stools no burning with urination no frequency or urgency and no hematuria patient has generalized weakness he is improving gradually will continue to follow closely physical therapy is following On 06/29/2022 patient was seen and examined on the medical floor he is alert and oriented 3 in no apparent distress there is no fever or chills no headache or dizziness no chest pain no shortness of breath no cough no nausea or vomiting he is complaining of abdominal discomfort with abdominal distention no diarrhea or constipation no blood in the stools no burning with urination no frequency or urgency and no hematuria. At this time patient is scheduled for computed tomography scan of the abdomen and pelvis will continue to monitor closely. On 06/30/2022 patient was seen and examined on the telemetry floor he is alert and oriented 3 in no apparent distress he is complaining now of severe neck gina n and back pain and requesting Stanton, patient underwent paracentesis today, 3.5 L of fluid were removed, otherwise patient denies any other symptoms there is no fever or chills no headache or dizziness no chest pain no shortness of breath no cough no nausea or vomiting no abdominal pain no diarrhea and no urinary symptoms On 07/01/2022 patient was seen and examined on the medical floor he is alert and oriented 3 in no apparent distress he is complaining of abdominal discomfort and distention otherwise he denies any complaints at this time there is no fever or chills no headache or dizziness no chest pain no shortness of breath no cough no nausea or vomiting no diarrhea no blood in the stools no burning with urination no frequency or urgency and no hematuria On 07/02/2022 patient was seen and examined on the medical floor he is alert and oriented 3 in no apparent distress he is complaining of abdominal discomfort and distention, he is complaining of bilateral hip pain, he received 1 dose of lactulose and had multiple episodes of diarrhea afterwards lactulose was discontinued, otherwise he denies any complaints at this time there is no fever or chills no headache or dizziness no chest pain no shortness of breath no cough no nausea or vomiting no blood in the stools no burning with urination no frequency or urgency and no hematuria. On 07/03/2022 patient was seen and examined the medical he is alert and oriented he is complaining of abdominal distention was discomfort and shortness of breath otherwise he denies any complaints there is no fever or chills no headache or dizziness no chest pain no cough no nausea or vomiting no urinary symptoms On 07/04/2022 patient was seen and examined in the ICU he is more lethargic today he was started on BiPAP and transferred to ICU today ammonia level is elevated at 38 there is no fever or chills no headache or dizziness no chest pain patient has significant distention in the abdomen, no nausea or vomiting no diarrhea, Russo catheter is in. On 07/05/2022 patient was seen and examined in the ICU at this time he is intubated sedated maintained on mechanical ventilation, currently he is on assist control rate of 20 to FiO2 50% and PEEP of 5 he had a dialysis catheter placed and a session of hemodialysis is scheduled for this afternoon, patient is maintained on norepinephrine drip, white blood count is up to 25,000 hemoglobin is 11 BUN is up to 78 and creatinine 2.47 patient is maintained on IV Zosyn infectious disease are following, prognosis is guarded will continue with aggressive management at this time and sister are at the bedside and are aware of patient's condition. On 07/06/2022 patient was seen and examined in the ICU he is intubated sedated maintained on mechanical ventilation assist control rate 22 FiO2 50% with PEEP of 5 he was started on hemodialysis yesterday he is still IV antibiotic and IV fluid and norepinephrine temperature of 97.7 pulse 96 respiration 24 blood pressure 128/48 sodium 135 potassium 4.4 chloride 101 CO2 22 BUN 78 creatinine 3.19 white blood count 17.4 hemoglobin 10.5 platelet count 167 On 07/07/2022 patient was seen and examined in the ICU he is intubated sedated maintained on mechanical ventilation, he is maintained on assist control FiO2 40% feet 058 arterial blood gas is improving is maintained on TPN he is maintained on IV antibiotics he is maintained on hemodialysis vital exam reveals a temperature of 97.2 pulse 75 respiration 24 blood pressure 128/48 pulse ox 100% BUN is 63 creatinine 2.86 On 07/08/2022 patient was seen and examined in the ICU he is intubated sedated maintained on mechanical ventilation he is maintained on norepinephrine for pressure support, he is maintained on IV Zosyn, he was started on hemodialysis, clinically patient is stable. His vital exam reveals a temperature of 98.7 pulse 84 respiration 24 blood pressure 132/49 pulse ox 94% on mechanical ventilation FiO2 30% On 07/09/2022 patient was seen and examined in the ICU currently he is on mechanical ventilation assist control rate of 24 FiO2 30% with a PEEP of 5, he is off propofol, he is awake and tries to answer questions with yes or no by moving his head he is moving his hands there has been a significant drop in his platelet count yesterday and today, I will check heparin induced antibodies and hold Lovenox for today, I have contacted Dr. Barajas over the phone and asked if he can switch Zosyn to a different antibiotic, otherwise patient is stable will continue to monitor closely. On 07/10/2022 patient was seen and examined in the ICU he is intubated sedated maintained on mechanical ventilation, he is on assist control rate of 24 FiO2 30% with a PEEP of 5 at this time platelet count is down to 41 Zosyn was switched yesterday by Dr. Barajas to Cefepime, heparin induced antibodies are still pending consult for hematology requested in regard to thrombocytopenia, patient is also having episodes of atrial fibrillation during dialysis he has bradycardia with a heart rate of 49 consultation for cardiology will be initiated otherwise patient is stable without significant change since yesterday. On 07/11/2022 patient was seen and examined in the ICU he is extubated entertained on oxygen via nasal cannula patient is alert and oriented and answering questions appropriately he is complaining of generalized weakness and generalized pain otherwise he denies any complaint Objective - Vital Signs Vital signs: Vital Signs Temp 97.7 F 07/11/22 04:00 Pulse 53 L 07/11/22 07:32 Resp 16 07/11/22 07:00 BP 137/68 07/10/22 15:00 Pulse Ox 94 L 07/11/22 07:00 FiO2 30 07/11/22 11:01 Intake & Output 07/10/22 07/11/22 07/11/22 18:59 06:59 18:59 Intake Total 476.221 366 0.342 Output Total 1425 985 Balance -948.779 -619 0.342 Weight 104.3 kg Intake: IV 409 156 0.9 @ 10 130 120 Mvi, Adult No.4 with Vit 240 K 10 ml Trace (Conc-1Ml/ Dose) 1 ml Sodium Acetate 40 meq Calcium Gluconate 1 gm In Amino Acid 5%- D15w 1,000 ml @ 40 mls/hr IV .Q24H [facility] Rx#: [id number] Pressure bag 39 36 Intake, IV Titration 67.221 0.342 Amount Cefepime 1 gm In Sodium 50 Chloride 0.9% 50 ml @ 12. 5 mls/hr IVPB Q12HR [facility] Rx#:[id number] Norepinephrine 32 mg In 17.221 0.342 Sodium Chloride 0.9% 218 ml @ 0.05 MCG/KG/MIN 2. 445 mls/hr IV .Q24H [facility] Rx#:[id number] Tube Feeding 120 Other 90 Output: Gastric Drainage 300 Urine 1125 985 Other: Voiding Method Indwelling Catheter Indwelling Catheter ABP, PAP, CO, CI - Last Documented Arterial Blood Pressure 110/44 - Exam In general patient is alert and responsive in no apparent distress HEENT head normocephalic and atraumatic Neck is supple no JVD no goiter no lymphadenopathy no carotid bruit Chest examination is clear to auscultation no crackles no wheezing Cardiac exam reveals regular heart sounds S1 and S2 no gallops no murmurs Abdomen is distended with generalized tenderness, no organomegaly Extremity exam reveals no edema no cyanosis or clubbing Neurological examination reveals no gross focal deficits - Labs CBC & Chem 7: 07/11/22 04:30 07/11/22 04:30 Labs: Abnormal Lab Results - Last 24 Hours (Table) 07/09/22 07/10/22 07/10/22 Range/Units 14:44 04:16 13:20 RBC (4.30-5.90) m/uL Hgb (13.0-17.5) gm/dL Hct (39.0-53.0) % Plt Count (150-450) k/uL Monocytes # (Manual) (0-1.0) k/uL PT 12.7 H (9.0-12.0) sec INR 1.2 H (<1.2) APTT 36.2 H (22.0-30.0) sec D-Dimer 2.15 H (<0.60) mg/L FEU ABG HCO3 (21-25) mmol/L ABG Total CO2 (19-24) mmol/L ABG O2 Saturation (94-97) % Sodium (137-145) mmol/L Chloride (98-107) mmol/L BUN (9-20) mg/dL Creatinine (0.66-1.25) mg/dL Calcium (8.4-10.2) mg/dL Phosphorus (2.5-4.5) mg/dL Iron 39 L (65-175) ug/dL TIBC 225 L (228-460) ug/dL Transferrin 161.0 L (204.0-354.0) mg/dL Total Bilirubin (0.2-1.3) mg/dL AST (17-59) U/L ALT (4-49) U/L Alkaline Phosphatase (38-126) U/L Total Protein (6.3-8.2) g/dL Albumin (3.5-5.0) g/dL Vitamin B12 1856.0 H (200.0-944.0) pg/mL Heparin-Ind Plt Ab Scrn 0.715 H (<0.4) OD 07/11/22 07/11/22 07/11/22 Range/Units 04:30 04:30 04:30 RBC 3.06 L (4.30-5.90) m/uL Hgb 9.6 L (13.0-17.5) gm/dL Hct 30.4 L (39.0-53.0) % Plt Count 31 L (150-450) k/uL Monocytes # (Manual) 1.38 H (0-1.0) k/uL PT 12.9 H (9.0-12.0) sec INR 1.2 H (<1.2) APTT (22.0-30.0) sec D-Dimer (<0.60) mg/L FEU ABG HCO3 (21-25) mmol/L ABG Total CO2 (19-24) mmol/L ABG O2 Saturation (94-97) % Sodium 133 L (137-145) mmol/L Chloride 96 L (98-107) mmol/L BUN 92 H (9-20) mg/dL Creatinine 4.67 H (0.66-1.25) mg/dL Calcium 8.2 L (8.4-10.2) mg/dL Phosphorus 5.3 H (2.5-4.5) mg/dL Iron (65-175) ug/dL TIBC (228-460) ug/dL Transferrin (204.0-354.0) mg/dL Total Bilirubin 2.7 H (0.2-1.3) mg/dL AST 152 H (17-59) U/L ALT 161 H (4-49) U/L Alkaline Phosphatase 140 H (38-126) U/L Total Protein 5.8 L (6.3-8.2) g/dL Albumin 2.7 L (3.5-5.0) g/dL Vitamin B12 (200.0-944.0) pg/mL Heparin-Ind Plt Ab Scrn (<0.4) OD 07/11/22 Range/Units 05:37 RBC (4.30-5.90) m/uL Hgb (13.0-17.5) gm/dL Hct (39.0-53.0) % Plt Count (150-450) k/uL Monocytes # (Manual) (0-1.0) k/uL PT (9.0-12.0) sec INR (<1.2) APTT (22.0-30.0) sec D-Dimer (<0.60) mg/L FEU ABG HCO3 26 H (21-25) mmol/L ABG Total CO2 27 H (19-24) mmol/L ABG O2 Saturation 97.7 H (94-97) % Sodium (137-145) mmol/L Chloride (98-107) mmol/L BUN (9-20) mg/dL Creatinine (0.66-1.25) mg/dL Calcium (8.4-10.2) mg/dL Phosphorus (2.5-4.5) mg/dL Iron (65-175) ug/dL TIBC (228-460) ug/dL Transferrin (204.0-354.0) mg/dL Total Bilirubin (0.2-1.3) mg/dL AST (17-59) U/L ALT (4-49) U/L Alkaline Phosphatase (38-126) U/L Total Protein (6.3-8.2) g/dL Albumin (3.5-5.0) g/dL Vitamin B12 (200.0-944.0) pg/mL Heparin-Ind Plt Ab Scrn (<0.4) OD Assessment and Plan Plan: Mental status changes, cause is unclear could be related to overdose of narcotic Leukocytosis, no clear source of infection, chest x-ray and urine analysis don't show any clear evidence of infection, patient received IV steroids in the EMS and in the emergency room, will check lactic acid level and monitor CBC Acute exacerbation of COPD with wheezing on presentation, he was started on IV S cristin-Medrol in the emergency room, he is on inhaled bronchodilators Evidence of acute kidney injury was elevated BUN and creatinine patient was started on IV fluid, nephrology consultation was requested Abdominal ascites, status post paracentesis 06/30/2022 with 3.5 L of fluid removed, Evidence of liver cirrhosis Mild elevation in troponin level will monitor Underlying history of hypertension Underlying history of hypothyroidism Underlying history of depression with anxiety disorder Underlying history of vitamin D deficiency Underlying history of degenerative disc disease with chronic back pain maintained on narcotics for pain management Underlying history of gastroesophageal reflux disease At this time patient is admitted to telemetry floor Will check d-dimer check lactic acid recheck CBC and CMP Continue with IV fluid and recheck renal function Consult nephrology
--- NOTE | 2022-07-11 17:44 | CA ---
Transthoracic Echo Report Name: Ag Souza Age: 67 Gender: M : 1955 Exam Date: 07/11/2022 07:43 Exam Location: [facility] Ht (in): 70 Wt (lb): 229 Ordering Physician: Morgan Do DO ([email or web address]) Attending/Referring Phys: Supervisor Inspecting Mindi Kulkarni RDCS Procedure CPT: Indications: re: reassess LV function Cardiac Hx: Technical Quality: Technically difficult study Contrast 1: Lumason Total Dose (mL): 3 Contrast 2: Total Dose (mL): MEASUREMENTS (Male / Female) Normal Values 2D ECHO LV Diastolic Diameter PLAX 5.0 cm 4.2 - 5.9 / 3.9 - 5.3 cm LV Systolic Diameter PLAX 2.6 cm IVS Diastolic Thickness 1.2 cm 0.6 - 1.0 / 0.6 - 0.9 cm LVPW Diastolic Thickness 1.0 cm 0.6 - 1.0 / 0.6 - 0.9 cm LV Relative Wall Thickness 0.4 FINDINGS Left Ventricle Mildly increased left ventricular wall thickness. Left ventricular ejection fraction is estimated at 55- 60%. Right Ventricle Right Atrium Left Atrium Mitral Valve Aortic Valve Tricuspid Valve Pulmonic Valve Pericardium No pericardial effusion. Aorta CONCLUSIONS Normal left ventricle size and systolic function Previewed by: Dr. Kelsey Silva MD (Electronically Signed) Final Date: 11 July 2022 17:43
[2022-07-11 17:51] LABS: Glucose,Whole Blood 96 mg/dL (70-110)
[2022-07-11] MEDS ORDERED: NOREPINEPHRINE 8 MG in SODIUM CHLORIDE 0.9% 250 ML IV SCH (19:00)
[2022-07-11 23:41] LABS: Glucose,Whole Blood 91 mg/dL (70-110)
[2022-07-12] MEDS: DILTIAZEM 125 MG in SODIUM CHLORIDE 0.9% 100 ML IV SCH (00:07)
[2022-07-12] MEDS: INSULIN ASPART (NovoLOG) 100 UNIT/ML VIAL SQ SCH ×4 (00:08→18:25)
[2022-07-12] MEDS: FUROSEMIDE 10 MG/ML 10 ML VIAL IV SCH ×3 (00:10→20:45)
[2022-07-12] MEDS: METOCLOPRAMIDE 5 MG/ML 2 ML VIAL IVP SCH ×2 (00:10→05:45)
--- NOTE | 2022-07-12 00:32 | XR ---
EXAMINATION TYPE: XR chest 1V portable DATE OF EXAM: 07/11/2022 9:29 AM COMPARISON: Chest radiographs from 07/10/2022 TECHNIQUE: XR chest 1V portable Frontal view of the chest. CLINICAL INDICATION:Male, 67 years old with history of shortness of breath; FINDINGS: Patient is rotated which limits evaluation. Lungs/Pleura: Chronic emphysematous and parenchymal fibrotic changes are present. No focal consolidat ion, pneumothorax, or pleural effusion. Left basilar atelectasis redemonstrated. Pulmonary vascularity: Unremarkable. Heart/mediastinum: Cardiomediastinal silhouette is unremarkable. Musculoskeletal: No acute osseous pathology. Other findings: None Lines/Tubes: Endotracheal tube with distal tip 2.7 cm above the srini Nasogastric tube with its distal tip and side-port projecting under the diaphragm. IMPRESSION: 1. Stable position of endotracheal and nasogastric tubes. 2. Left basilar atelectasis.
[2022-07-12] MEDS: HYDROmorphone 1 MG/ML 1 ML SYRINGE IVP PRN ×3 (00:58→11:25)
[2022-07-12 04:03] LABS: HCT 31.5 % (39.0-53.0); HGB 9.8 gm/dL (13.0-17.5); Hypochromasia Marked; MCH 31.5 pg (25.0-35.0); MCV 101.7 fL (80.0-100.0); Macrocytosis Slight; Mean Platelet Volume 13.8; RDW 14.4 % (11.5-15.5); WBC 7.5 k/uL (3.8-10.6)
[2022-07-12 04:13] LABS: Platelet Count 31 k/uL (150-450)
[2022-07-12 04:17] LABS: Albumin 2.8 g/dL (3.5-5.0); Calcium 8.3 mg/dL (8.4-10.2); Potassium 4.3 mmol/L (3.5-5.1); Total Bilirubin 2.2 mg/dL (0.2-1.3); Total Protein 6.2 g/dL (6.3-8.2)
[2022-07-12] MEDS: LEVOTHYROXINE 88 MCG TAB PO SCH (05:45)
--- NOTE | 2022-07-12 05:51 | XR ---
EXAMINATION TYPE: XR chest 1V portable DATE OF EXAM: 07/12/2022 CLINICAL HISTORY: Difficulty breathing progress study. TECHNIQUE: Single AP portable upright view of the chest is obtained. COMPARISON: Chest x-ray from one day earlier and older studies. FINDINGS: Interval extubation with removal of endotracheal and orogastric tubes. New right basilar a nd worsening left basilar opacities. Cardiac silhouette size remains within normal limits. Osseous st ructures are intact. IMPRESSION: Interval extubation. Worsening bibasilar acute infiltrates and/or atelectasis with probab le new small to tiny bilateral pleural effusions. Progress study advised.
--- NOTE | 2022-07-12 06:27 | P.PN ---
Subjective Progress Note Date: 07/12/22 Principal diagnosis: Acute mental status changes. Pulmonary consultation dated 06/22/2022. 59-year-old male seen in the emergency department, on June 21. He apparently presented with mental status changes. In addition, he apparently was having multiple falls at home. The patient was seen and evaluated, and admitted to the hospital with a diagnosis of mental status changes, opiate dependence, COPD, acute kidney injury, and he went to the general medical floor. Today, a rapid response was called on this patient, and the patient was transferred down to the intensive care unit. Currently he is on 3 L nasal cannula. He is getting saline at 70 mL an hour, and dexmedetomidine at 1 mcg/kg/h. He apparently has a history of asthma, CVA, GERD, hyperlipidemia, hypertension, echo staxis, anxiety, and chronic tobacco dependence. Labs today include a white count of 21.9, hemoglobin 14.8, hematocrit 45.6, and a platelet count of 118,000. D- dimer is 2.12. PT is 15 with an INR 1.4. Blood gases, show pO2 of 117, pCO2 31, pH is 7.42. That was on 50% oxygen. Sodium 131, potassium 4.9, chlorides 100, CO2 22, BUN 52, and creatinine 1.28. Lactic acid was elevated at 5.9. I've asked the nurse to give the patient a liter of lactated Ringer's. Troponin was 0.237. Urine is got trace protein and trace glucose. Leukocyte esterase and nitrate were both negative. Drug screen was positive for opiates. Nasal swab testing was negative for coronavirus. Chest x-ray on admission was negative for an acute process. Head CT initially did not show anything acute. A repeat chest x-ray today showed increased interstitial densities in the left lower lobe. Progress note dated 06/23/2022. This is a 59-year-old male who was seen yesterday in consultation. He was initially seen on June 21 in the emergency room with mental status changes. The patient was transferred to the intensive care unit, because of worsening mental status, and some cardiovascular issues. Currently, the patient is on 3 L nasal cannula. He is getting lactated Ringer's at 75 mL an hour. He is on vancomycin and Unasyn. Was on Rocephin. He has been seen by infectious diseases and neurology. His CT angiogram was negative. Initially heparin was discontinued, but because of EKG changes, he'll be restarted. He is also on dexmedetomidine at 0.3 mcg/kg/h. I did speak to neurology about possible viral encephalitis, and we discussed the possibility of lumbar puncture, and acyclovir IV. White count 15.4, hemoglobin 13.2, hematocrit 41.5, and platelet count 225,000. Sodium, potassium, chloride, CO2, are all normal. BUN 66, and creatinine 0.89. Group B streptococci are in the blood cultures. Reevaluated today on 07/08/22, remains in the ICU intubated and mechanically ventilated. Patient is now on assist control rate of 24-500 FiO2 30% PEEP of 5 ABG showed a pO2 of 75 pCO2 43 pH of 7.42 patient remains on 30% FiO2. He is on TPN at 47 mL/h is also on Zosyn empirically. His abdomen remains distended and the patient continues to have ascites, I'm recommending interventional radiology to evaluate for possible paracentesis again on this patient. Patient has been off propofol since yesterday, he is arousable, opens his eyes, wiggling his toes, but remains very generally weak. We'll continue to hold propofol. In the meantime patient is not quite ready for weaning trials, but that is to be considered down the line. Patient remains on dialysis. Labs today showed relat ively normal electrolytes, BMI 57 creatinine 2.88. CBC is relatively unremarkable. Chest x-ray continues to show mild interstitial edema, and small left and right pleural effusion Reevaluated today on 07/09/22, remains in the ICU intubated mechanically ventilated patient is off propofol now for almost 2 days. Patient is arousable and follows very simple instructions like squeezing hands and wiggling toes however he is extremely generally weak. He is on assist control rate of 24th of volume 500 FiO2 30% PEEP of 5. ABG showed a pO2 of 78 pCO2 38 pH of 7.44 Patient is on small dose of norepinephrine at 0.02 mcg/kg/m is also on TPN at 47 mL/h. Chest x-ray continues to show improvement in his infiltrates/edema , patient remains on hemodialysis he had dialysis yesterday and 3.3 L were taken off. Patient may have a repeat paracentesis next Monday. WBC count today is 8.1 hemoglobin is 9.2. Basic metabolic profile is normal except for low potassium of 3.0 BUN is 55 creatinine 3.03. Today the patient would have a trial of pressure support and CPAP. Reevaluated today on 07/10/22, patient remains in the ICU intubated and mechanically ventilated, remains off propofol, remains on assist control rate of 24 to volume 500 FiO2 30% PEEP of 5, ABG showed a pO2 of 90 pCO2 of 37 pH of 7.47, CBC is relatively unremarkable. Basic metabolic profile is normal BUN is 75 creatinine 3.94, chest x-ray continues to show steady improvement in his interstitial edema and infiltrates. Clinically the patient seems to be more awake today, he remains off propofol, and I will go ahead and give the patient a trial of weaning if possible today. However after initiation of pressure support and CPAP, I was notified by the respiratory therapist that the patient has apnea episodes, and I recommended that we go on a pressure support of 10, IMV rate of 10, and continue same FiO2, continue same PEEP. The plan is to gradually go down the IMV rate by 2 every 2 hours. And hopefully we could avoid any further apnea episodes and may even consider extubating the patient if he tolerates this modality otherwise may keep him again on mechanical ventilation overnight with IMV and pressure support Progress note dated 07/11/2022. This is a 67-year-old male who was admitted back on June 21, for mental status changes. The patient was intubated on July 04, and remains on the mechanical ventilator. I saw him initially back on June 22 and . Currently, he is on the SIMV mode, rate 6, tidal volume 500, FiO2 30%, and PEEP of 5. Blood gases show pO2 of 88, pCO2 42, 7.4. The patient's getting saline at 10 mL an hour. Norepinephrine has been weaned off. Is getting Nepro at 10 mL an hour. He is also been weaned off. Microbiologic studies are negative. The patient remains on cefepime. The patient is apparently going to have a paracentesis performed by interventional radiology today. In addition, we'll get a repeat chest x-ray, and sometime later today, give the patient a spontaneous breathing trial. 6, 9.6, hematocrit 30.4, platelet count 31,000. PT is 12.9, with an INR 1.2. Sodium 133, potassium 4.1, chlorides 96, CO2 24, anion gap 13, BUN 92, and creatinine 4.67. AST is 152 with an ALT of 161. Blood cultures back from June 22 show evidence of group B streptococci. Chest x-ray from today shows relatively clear lung amado. Progress note dated 07/12/2022. 67-year-old male who was admitted on June 21, for mental status changes. He was intubated on July 04, for respiratory failure. Yesterday, July 11, the patient was extubated. He is currently on 2 L nasal cannula. His mental status is improving. He is getting a saline IV at 10 mL an hour. White count 7.5, hemoglobin 9.8, hematocrit 31.5, and platelet count 31,000. Sodium 137, potassium 4.3, chlorides 102, CO2 22, anion gap 13, BUN 67, and creatinine 3.73. Albumin is 2.8. Chest x-ray shows bilateral infiltrates, likely because the patient is not on positive pressure ventilation anymore. Objective - Vital Signs Vital signs: Vital Signs Temp 98.1 F 07/11/22 20:00 Pulse 104 H 07/12/22 03:58 Resp 15 07/12/22 03:00 BP 99/48 07/12/22 03:00 Pulse Ox 97 07/12/22 03:00 FiO2 30 07/11/22 20:00 Intake & Output 07/11/22 07/11/22 07/12/22 06:59 18:59 06:59 Intake Total 366 143.342 171.137 Output Total 985 1600 465 Balance -619 -9616.658 -293.863 Weight 104.3 kg 105.7 kg Intake: IV 156 143 156 0.9 @ 10 120 110 120 Pressure bag 36 33 36 Intake, IV Titration 0.342 15.137 Amount Norepinephrine 32 mg In 0.342 Sodium Chloride 0.9% 218 ml @ 0.05 MCG/KG/MIN 2. 445 mls/hr IV .Q24H [facility] Rx#:[id number] Norepinephrine 8 mg In 15.137 Sodium Chloride 0.9% 250 ml @ 0.05 MCG/KG/MIN 10. 091 mls/hr IV .Q24H [facility] Rx#:[id number] Tube Feeding 120 Other 90 Output: Urine 985 600 465 Hemodialysis 1000 Other: Voiding Method Indwelling Catheter Indwelling Catheter Indwelling Catheter ABP, PAP, CO, CI - Last Documented Arterial Blood Pressure 136/51 - Exam No acute distress, awake and alert, on 2 L of oxygen. HEENT examination is grossly unremarkable. Neck supple. Full range of motion. No adenopathy thyromegaly or neck vein distention. Cardiovascular examination reveals regular rhythm rate. S1-S2 normal. No S3 or S4. No discernible murmur noted. Heart rate 66 bpm. Heart sounds are distant. Lungs reveal mostly clear breath sounds. Breath sounds are equal bilaterally. Scattered rhonchi are noted. No wheezes or crackles. Saturations are 97 % Abdomen soft bowel sounds are heard. No masses or tenderness. Extremities reveal some mild edema. No cyanosis or clubbing. Skin reveals some chronic venous stasis changes. Neurologic examination reveals the patient with improved mental status and alertness. - Labs CBC & Chem 7: 07/12/22 03:40 07/12/22 03:40 Labs: Abnormal Lab Results - Last 24 Hours (Table) 07/09/22 07/10/22 07/11/22 Range/Units 14:44 04:16 13:13 RBC (4.30-5.90) m/uL Hgb (13.0-17.5) gm/dL Hct (39.0-53.0) % MCV (80.0-100.0) fL Plt Count (150-450) k/uL ABG pH 7.34 L (7.35-7.45) ABG pCO2 47 H (35-45) mmHg ABG pO2 75 L (83-108) mmHg ABG Total CO2 27 H (19-24) mmol/L BUN (9-20) mg/dL Creatinine (0.66-1.25) mg/dL Glucose (74-99) mg/dL Calcium (8.4-10.2) mg/dL Iron 39 L (65-175) ug/dL TIBC 225 L (228-460) ug/dL Transferrin 161.0 L (204.0-354.0) mg/dL Total Bilirubin (0.2-1.3) mg/dL AST (17-59) U/L ALT (4-49) U/L Alkaline Phosphatase (38-126) U/L Total Protein (6.3-8.2) g/dL Albumin (3.5-5.0) g/dL Vitamin B12 1856.0 H (200.0-944.0) pg/mL Heparin-Ind Plt Ab Scrn 0.715 H (<0.4) OD 07/12/22 07/12/22 Range/Units 03:40 03:40 RBC 3.10 L (4.30-5.90) m/uL Hgb 9.8 L (13.0-17.5) gm/dL Hct 31.5 L (39.0-53.0) % MCV 101.7 H (80.0-100.0) fL Plt Count 31 L (150-450) k/uL ABG pH (7.35-7.45) ABG pCO2 (35-45) mmHg ABG pO2 (83-108) mmHg ABG Total CO2 (19-24) mmol/L BUN 67 H (9-20) mg/dL Creatinine 3.73 H (0.66-1.25) mg/dL Glucose 127 H (74-99) mg/dL Calcium 8.3 L (8.4-10.2) mg/dL Iron (65-175) ug/dL TIBC (228-460) ug/dL Transferrin (204.0-354.0) mg/dL Total Bilirubin 2.2 H (0.2-1.3) mg/dL AST 139 H (17-59) U/L ALT 153 H (4-49) U/L Alkaline Phosphatase 150 H (38-126) U/L Total Protein 6.2 L (6.3-8.2) g/dL Albumin 2.8 L (3.5-5.0) g/dL Vitamin B12 (200.0-944.0) pg/mL Heparin-Ind Plt Ab Scrn (<0.4) OD Assessment and Plan Assessment: Acute mental status changes, rapid respiratory rate, tachycardia, and elevated lactic acid, rule out either sepsis, or a primary neurologic event, status post intubation and mechanical ventilation on 07/04/2022. The patient was successfully extubated on July 11. Ascites, status post paracentesis abdominis. Acute kidney injury, requiring hemodialysis. History of CVA. History of hypertension. History of hyperlipidemia. History of asthma. History of gastroesophageal reflux disease. History of anxiety. History of chronic back. History of epistaxis. Plan: Plan dated 06/22/2022 The patient was transferred down to the intensive care. The patient is going for a computed tomography scan of the chest, to rule out pulmonary embolism. I've asked the nurses to switch his fluids to lactated Ringer's, and give him a bolus. In addition, I've asked the nurse to consult neurology for his mental status changes. Labs, x-rays, and medications are all reviewed. Prognosis is guarded. The patient is not very active at home. Plan dated 06/23/2022. The patient is currently on vancomycin and Unasyn. Blood cultures were positive for group B streptococci. I did discuss with neurology, and LP, and also the initiation of acyclovir. The patient appears to be a bit better today than he was yesterday. He still is on dexmedetomidine though. His vital signs seem reasonably stable. CTA was negative for pulmonary embolism. He had some EKG c hanges and will be started back on IV heparin. We will continue to follow make recommendations where appropriate. Prognosis is very guarded. Plan dated 07/11/2022. Norepinephrine has been weaned off. TPN has also been weaned off. The patient remains on the mechanical ventilator. He's not getting any sedatives. We will attempt to do a weaning trial on him, with possible extubation. Chest x-ray will be done in advance. Also, we will await interventional radiology performing the paracentesis abdominis. Labs, x-rays, and medications are reviewed. Microbiologic studies are negative. The patient does remain on cefepime. Overall prognosis remains very guarded. Plan dated 07/12/2022. The patient was successfully extubated yesterday on July 11. Currently, he's on 2 L. Labs, x-rays, and medications are reviewed. Is getting saline at 10 mL an hour. I did speak to him briefly as to whether or not he would want go back on life support. He said he will give this some thought. No additional recommendations are made. Prognosis is guarded. Time with Patient: Less than 30
--- NOTE | 2022-07-12 06:44 | P.PN ---
Subjective Progress Note Date: 07/12/22 Principal diagnosis: Acute coronary syndrome The patient is a pleasant 67-year-old patient with a past medical history significant for hypertension and dyslipidemia and also borderline diabetes as well as history of smoking who was admitted to the hospital with a change in mental status. The etiology was unknown. We involved in the care of the patient because her troponin was checked and came in to be unremarkable. His echo showed normal wall motion abnormalities concerning for ischemia but the EKG revealed ST changes appeared to be somewhat dynamic. Because of that the patient was sedated and intubated. He was started on heparin. The following day he developed GI bleeding. The heparin was stopped. Surgery was consulted and he was diagnosed with enteritis. He was treated medically. The hemoglobin has been stable since the heparin was stopped. Subsequently the patient developed acute renal failure. Currently nephrology is on the case. Also the patient did have brief episodes of paroxysmal atrial fibrillation The patient was seen this morning. He continues to be intubated on mechanical ventilation. The pressure has been marginal but so far he has not be requesting vasopressors for the last 24 hours. He underwent dialysis yesterday. On examination he continues to have fluid overload with severe bilateral lower extremities edema and he continues to be on IV Lasix. The chest x-ray showed bilateral atelectasis. He remains in sinus rhythm was sinus bradycardia. Repeated echo showed normal left ventricular systolic function. From the cardi ac standpoint of view, we'll continue the current medical regimen. He continues to have severe thrombocytopenia and he is not a candidate for any oral anticoagulation. He is also not a candidate for any antiplatelet. Objective - Vital Signs Vital signs: Vital Signs Temp 98.1 F 07/11/22 20:00 Pulse 104 H 07/12/22 03:58 Resp 15 07/12/22 03:00 BP 99/48 07/12/22 03:00 Pulse Ox 97 07/12/22 03:00 FiO2 30 07/11/22 20:00 Intake & Output 07/11/22 07/11/22 07/12/22 06:59 18:59 06:59 Intake Total 366 143.342 171.137 Output Total 985 1600 465 Balance -619 -1456.658 -293.863 Weight 104.3 kg 105.7 kg Intake: IV 156 143 156 0.9 @ 10 120 110 120 Pressure bag 36 33 36 Intake, IV Titration 0.342 15.137 Amount Norepinephrine 32 mg In 0.342 Sodium Chloride 0.9% 218 ml @ 0.05 MCG/KG/MIN 2. 445 mls/hr IV .Q24H [facility] Rx#:[id number] Norepinephrine 8 mg In 15.137 Sodium Chloride 0.9% 250 ml @ 0.05 MCG/KG/MIN 10. 091 mls/hr IV .Q24H [facility] Rx#:[id number] Tube Feeding 120 Other 90 Output: Urine 985 600 465 Hemodialysis 1000 Other: Voiding Method Indwelling Catheter Indwelling Catheter Indwelling Catheter ABP, PAP, CO, CI - Last Documented Arterial Blood Pressure 136/51 - Constitutional General appearance: Present: no acute distress - Respiratory Respiratory: bilateral: diminished - Cardiovascular Rhythm: regular Heart sounds: normal: S1, S2 - Labs CBC & Chem 7: 07/12/22 03:40 07/12/22 03:40 Labs: Abnormal Lab Results - Last 24 Hours (Table) 07/09/22 07/10/22 07/11/22 Range/Units 14:44 04:16 13:13 RBC (4.30-5.90) m/uL Hgb (13.0-17.5) gm/dL Hct (39.0-53.0) % MCV (80.0-100.0) fL Plt Count (150-450) k/uL ABG pH 7.34 L (7.35-7.45) ABG pCO2 47 H (35-45) mmHg ABG pO2 75 L (83-108) mmHg ABG Total CO2 27 H (19-24) mmol/L BUN (9-20) mg/dL Creatinine (0.66-1.25) mg/dL Glucose (74-99) mg/dL Calcium (8.4-10.2) mg/dL Iron 39 L (65-175) ug/dL TIBC 225 L (228-460) ug/dL Transferrin 161.0 L (204.0-354.0) mg/dL Total Bilirubin (0.2-1.3) mg/dL AST (17-59) U/L ALT (4-49) U/L Alkaline Phosphatase (38-126) U/L Total Protein (6.3-8.2) g/dL Albumin (3.5-5.0) g/dL Vitamin B12 1856.0 H (200.0-944.0) pg/mL Heparin-Ind Plt Ab Scrn 0.715 H (<0.4) OD 07/12/22 07/12/22 Range/Units 03:40 03:40 RBC 3.10 L (4.30-5.90) m/uL Hgb 9.8 L (13.0-17.5) gm/dL Hct 31.5 L (39.0-53.0) % MCV 101.7 H (80.0-100.0) fL Plt Count 31 L (150-450) k/uL ABG pH (7.35-7.45) ABG pCO2 (35-45) mmHg ABG pO2 (83-108) mmHg ABG Total CO2 (19-24) mmol/L BUN 67 H (9-20) mg/dL Creatinine 3.73 H (0.66-1.25) mg/dL Glucose 127 H (74-99) mg/dL Calcium 8.3 L (8.4-10.2) mg/dL Iron (65-175) ug/dL TIBC (228-460) ug/dL Transferrin (204.0-354.0) mg/dL Total Bilirubin 2.2 H (0.2-1.3) mg/dL AST 139 H (17-59) U/L ALT 153 H (4-49) U/L Alkaline Phosphatase 150 H (38-126) U/L Total Protein 6.2 L (6.3-8.2) g/dL Albumin 2.8 L (3.5-5.0) g/dL Vitamin B12 (200.0-944.0) pg/mL Heparin-Ind Plt Ab Scrn (<0.4) OD Assessment and Plan Assessment: Assessment #1 change in mental status #2 sepsis likely to be related to pneumonia #3 evidence of myocardial injury with mildly abnormal troponin #4 acute renal failure which has improved #5 possible gastrointestinal bleeding #6 severe thrombocytopenia #7 paroxysmal atrial fibrillation #8 multiple comorbid conditions Plan #1 continue the current medical regimen #2 the patient has been maintaining normal sinus rhythm with sinus bradycardia and heart rate in the 50s #3 hold on any oral anticoagulation for the atrial fibrillation in the light of severe thrombocytopenia #4 hold any antiplatelet at this point also in the light of severe thrombocytopenia #5 follow-up with the patient
[2022-07-12] MEDS: IPRATROPIUM-ALBUTEROL 3 ML NEB INHALATION SCH ×4 (07:33→19:28)
[2022-07-12] MEDS: CEFEPIME 1 GM in SODIUM CHLORIDE 0.9% 50 ML IVPB SCH ×2 (07:41→20:46)
[2022-07-12] MEDS: PANTOPRAZOLE 40 MG/10 ML VIAL IVP SCH ×2 (07:42→20:45)
[2022-07-12] MEDS: ACETAMINOPHEN TAB 500 MG TAB PO PRN ×2 (07:51→13:50)
[2022-07-12] MEDS: NICOTINE 7MG/24HR PATCH TRANSDERM SCH (07:53)
[2022-07-12] MEDS: METOPROLOL SUCCINATE (ER) 100 MG TAB.ER.24H PO SCH (07:53)
[2022-07-12] MEDS: ATORVASTATIN 40 MG TAB PO SCH (07:53)
--- NOTE | 2022-07-12 09:37 | P.PN ---
Subjective Patient is seen for follow-up for acute kidney injury with severe ATN requiring hemodialysis. Urine output had been low initially however it has picked up now and was on hold for 2 days and but patient had her treatment yesterday due to increasing serum creatinine. Patient was extubated yesterday. He is awake. This morning patient is currently awake he is trying to get up in a bedside chair with hoiller lift Urine output at 40-45 mL an hour Currently off of pressors. Objective - Vital Signs Vital signs: Vital Signs Temp 97.6 F 07/12/22 07:00 Pulse 66 07/12/22 07:41 Resp 16 07/12/22 07:00 BP 86/70 07/12/22 07:00 Pulse Ox 96 07/12/22 07:33 FiO2 30 07/11/22 20:00 Intake & Output 07/11/22 07/12/22 07/12/22 18:59 06:59 18:59 Intake Total 143.342 171.137 38.5 Output Total 1600 465 155 Balance -1456.658 -293.863 -116.5 Weight 104.3 kg 105.7 kg Intake: IV 143 156 38.5 0.9 @ 10 110 120 20 Cefepime 1 gm In Sodium 12.5 Chloride 0.9% 50 ml @ 12. 5 mls/hr IVPB Q12HR [facility] Rx#:[id number] Pressure bag 33 36 6 Intake, IV Titration 0.342 15.137 Amount Norepinephrine 32 mg In 0.342 Sodium Chloride 0.9% 218 ml @ 0.05 MCG/KG/MIN 2. 445 mls/hr IV .Q24H [facility] Rx#:[id number] Norepinephrine 8 mg In 15.137 Sodium Chloride 0.9% 250 ml @ 0.05 MCG/KG/MIN 10. 091 mls/hr IV .Q24H [facility] Rx#:[id number] Output: Urine 600 465 155 Hemodialysis 1000 Other: Voiding Method Indwelling Catheter Indwelling Catheter ABP, PAP, CO, CI - Last Documented Arterial Blood Pressure 116/47 - Exam Extubated Patient is awake Examination of the heart S1 and S2 Examination of the lungs bilateral breath sounds are heard, decreased breath sounds at the bases Abdomen is soft obese nontender Examination lower extremities shows edema 2+ bilaterally - Labs CBC & Chem 7: 07/12/22 03:40 07/12/22 03:40 Labs: Abnormal Lab Results - Last 24 Hours (Table) 07/09/22 07/11/22 07/12/22 Range/Units 14:44 13:13 03:40 RBC 3.10 L (4.30-5.90) m/uL Hgb 9.8 L (13.0-17.5) gm/dL Hct 31.5 L (39.0-53.0) % MCV 101.7 H (80.0-100.0) fL Plt Count 31 L (150-450) k/uL ABG pH 7.34 L (7.35-7.45) ABG pCO2 47 H (35-45) mmHg ABG pO2 75 L (83-108) mmHg ABG Total CO2 27 H (19-24) mmol/L BUN (9-20) mg/dL Creatinine (0.66-1.25) mg/dL Glucose (74-99) mg/dL Calcium (8.4-10.2) mg/dL Total Bilirubin (0.2-1.3) mg/dL AST (17-59) U/L ALT (4-49) U/L Alkaline Phosphatase (38-126) U/L Total Protein (6.3-8.2) g/dL Albumin (3.5-5.0) g/dL Heparin-Ind Plt Ab Scrn 0.715 H (<0.4) OD 07/12/22 Range/Units 03:40 RBC (4.30-5.90) m/uL Hgb (13.0-17.5) gm/dL Hct (39.0-53.0) % MCV (80.0-100.0) fL Plt Count (150-450) k/uL ABG pH (7.35-7.45) ABG pCO2 (35-45) mmHg ABG pO2 (83-108) mmHg ABG Total CO2 (19-24) mmol/L BUN 67 H (9-20) mg/dL Creatinine 3.73 H (0.66-1.25) mg/dL Glucose 127 H (74-99) mg/dL Calcium 8.3 L (8.4-10.2) mg/dL Total Bilirubin 2.2 H (0.2-1.3) mg/dL AST 139 H (17-59) U/L ALT 153 H (4-49) U/L Alkaline Phosphatase 150 H (38-126) U/L Total Protein 6.2 L (6.3-8.2) g/dL Albumin 2.8 L (3.5-5.0) g/dL Heparin-Ind Plt Ab Scrn (<0.4) OD Assessment and Plan Assessment: 1. Acute kidney injury, severe ATN requiring hemodialysis. Urine output has ectopic. Hemodialysis had been on hold but patient had her treatment yesterday. Urine output currently at 40-45 mL an hour. Will repeat labs in a.m. and evaluate for need for renal replacement therapy tomorrow. 2. Possible aspiration pneumonia maintained on cefazolin. Blood culture grew group B Streptococcus 3. Volume overload, improving 4. Liver cirrhosis with ascites status post paracentesis 5. Acute hypoxic respiratory failure, patient was on the ventilator currently extubated. 6. Atrial fibrillation Plan: Continue with IV Lasix Avoid hypotension Repeat labs in a.m. and assess for need for dialysis tomorrow. Decrease metoprolol to 75 mg daily
--- NOTE | 2022-07-12 11:03 | P.PN ---
Subjective Progress Note Date: 07/12/22 CHIEF COMPLAINT: Abdominal distention HISTORY OF PRESENT ILLNESS: Patient in the ICU. Patient was expected yesterday afternoon. He is currently sitting at bedside chair. He is on a clear liquid diet. No nausea or vomiting reported. No abdominal pain. No bowel movements. Afebrile. WBC 7.5 hgb 9.8 plt 31 PHYSICAL EXAM: VITAL SIGNS: Reviewed GENERAL: No acute distress HEENT: No sclera icterus.Moist buccal mucosa. Head is atraumatic, normocephalic. NECK: Supple without lymphadenopathy. CHEST: Non-labored respirations and equal bilateral excursions. CARDIOVASCULAR: Palpable 2+ radial pulses. ABDOMEN: Soft. distended. Nontender MUSCULOSKELETAL: No clubbing or cyanosis. ASSESSMENT: 1. Duodenitis and jejunitis 2. Enteritis 3. Gastritis 4. Cirrhosis with abdominal ascites 5. Leukocytosis 6. Ileus 7. GI bleed resolved 8. Acute respiratory failure 9. Acute kidney injury PLAN: -Continue ICU management -Continue supportive care -Continue to monitor -Continue clear liquid -GI prophylaxis Protonix and DVT prophylaxis Lovenox Physician Bar Tacker note has been reviewed by physician. Signing provider agrees with the documented findings, assessment, and plan of care. I have personally seen and examined the patient, reviewed the [employer] history, exam and MDM and agree with the assessment and plan as written. Based on total visit time, I have performed more than 50% of the visit. As above: Patient doing well today. He is hungry. Denies pain. Gradually r esume diet. Objective - Vital Signs Vital signs: Vital Signs Temp 97.5 F L 07/12/22 08:00 Pulse 74 07/12/22 10:56 Resp 17 07/12/22 10:00 BP 97/75 07/12/22 10:00 Pulse Ox 99 07/12/22 10:00 FiO2 30 07/11/22 20:00 Intake & Output 07/11/22 07/12/22 07/12/22 18:59 06:59 18:59 Intake Total 143.342 171.137 629.5 Output Total 1600 465 180 Balance -1456.658 -293.863 449.5 Weight 104.3 kg 105.7 kg Intake: IV 143 156 89.5 0.9 @ 10 110 120 40 Cefepime 1 gm In Sodium 37.5 Chloride 0.9% 50 ml @ 12. 5 mls/hr IVPB Q12HR [facility] Rx#:[id number] Pressure bag 33 36 12 Intake, IV Titration 0.342 15.137 Amount Norepinephrine 32 mg In 0.342 Sodium Chloride 0.9% 218 ml @ 0.05 MCG/KG/MIN 2. 445 mls/hr IV .Q24H [facility] Rx#:[id number] Norepinephrine 8 mg In 15.137 Sodium Chloride 0.9% 250 ml @ 0.05 MCG/KG/MIN 10. 091 mls/hr IV .Q24H [facility] Rx#:[id number] Oral 540 Output: Urine 600 465 180 Hemodialysis 1000 Other: Voiding Method Indwelling Catheter Indwelling Catheter ABP, PAP, CO, CI - Last Documented Arterial Blood Pressure 98/40 - Labs CBC & Chem 7: 07/12/22 03:40 07/12/22 03:40 Labs: Abnormal Lab Results - Last 24 Hours (Table) 07/09/22 07/11/22 07/12/22 Range/Units 14:44 13:13 03:40 RBC 3.10 L (4.30-5.90) m/uL Hgb 9.8 L (13.0-17.5) gm/dL Hct 31.5 L (39.0-53.0) % MCV 101.7 H (80.0-100.0) fL Plt Count 31 L (150-450) k/uL ABG pH 7.34 L (7.35-7.45) ABG pCO2 47 H (35-45) mmHg ABG pO2 75 L (83-108) mmHg ABG Total CO2 27 H (19-24) mmol/L BUN (9-20) mg/dL Creatinine (0.66-1.25) mg/dL Glucose (74-99) mg/dL Calcium (8.4-10.2) mg/dL Total Bilirubin (0.2-1.3) mg/dL AST (17-59) U/L ALT (4-49) U/L Alkaline Phosphatase (38-126) U/L Total Protein (6.3-8.2) g/dL Albumin (3.5-5.0) g/dL Heparin-Ind Plt Ab Scrn 0.715 H (<0.4) OD 08/23/22 Range/Units 03:40 RBC (4.30-5.90) m/uL Hgb (13.0-17.5) gm/dL Hct (39.0-53.0) % MCV (80.0-100.0) fL Plt Count (150-450) k/uL ABG pH (7.35-7.45) ABG pCO2 (35-45) mmHg ABG pO2 (83-108) mmHg ABG Total CO2 (19-24) mmol/L BUN 67 H (9-20) mg/dL Creatinine 3.73 H (0.66-1.25) mg/dL Glucose 127 H (74-99) mg/dL Calcium 8.3 L (8.4-10.2) mg/dL Total Bilirubin 2.2 H (0.2-1.3) mg/dL AST 139 H (17-59) U/L ALT 153 H (4-49) U/L Alkaline Phosphatase 150 H (38-126) U/L Total Protein 6.2 L (6.3-8.2) g/dL Albumin 2.8 L (3.5-5.0) g/dL Heparin-Ind Plt Ab Scrn (<0.4) OD
[2022-07-12 11:57] LABS: Glucose,Whole Blood 92 mg/dL (70-110)
[2022-07-12 18:22] LABS: Glucose,Whole Blood 163 mg/dL (70-110)
--- NOTE | 2022-07-12 20:49 | P.PN ---
Subjective Progress Note Date: 07/11/22 Principal diagnosis: Bacteremia Patient is a 67 year old male presenting to the hospital in mental status changes and multiple falls did have a low-grade fever and elevated white count now with evidence of bacteremia. Patient is status post paracentesis with removal of 3 L of ascitic fluid completed on 06/30/2022, the patient did have left groin dialysis catheter placement and has been started on dialysis as of 07/05/2022 On today's evaluation that is 07/11/2022, the patient continues to be afebrile, the patient FiO2 is stable at 30%, patient is hemodynamically stable and off pressor support, no significant purulent secretion through the ET diarrhea or any other changes reported by the nursing staff Objective - Vital Signs Vital signs: Vital Signs Temp 97.7 F 07/11/22 04:00 Pulse 53 L 07/11/22 07:32 Resp 16 07/11/22 07:00 BP 137/68 07/10/22 15:00 Pulse Ox 94 L 07/11/22 07:00 FiO2 30 07/11/22 11:01 Intake & Output 07/10/22 07/11/22 07/11/22 18:59 06:59 18:59 Intake Total 476.221 366 0.342 Output Total 1425 985 Balance -948.779 -619 0.342 Weight 104.3 kg Intake: IV 409 156 0.9 @ 10 130 120 Mvi, Adult No.4 with Vit 240 K 10 ml Trace (Conc-1Ml/ Dose) 1 ml Sodium Acetate 40 meq Calcium Gluconate 1 gm In Amino Acid 5%- D15w 1,000 ml @ 40 mls/hr IV .Q24H [facility] Rx#: [id number] Pressure bag 39 36 Intake, IV Titration 67.221 0.342 Amount Cefepime 1 gm In Sodium 50 Chloride 0.9% 50 ml @ 12. 5 mls/hr IVPB Q12HR [facility] Rx#:[id number] Norepinephrine 32 mg In 17.221 0.342 Sodium Chloride 0.9% 218 ml @ 0.05 MCG/KG/MIN 2. 445 mls/hr IV .Q24H [facility] Rx#:[id number] Tube Feeding 120 Other 90 Output: Gastric Drainage 300 Urine 1125 985 Other: Voiding Method Indwelling Catheter Indwelling Catheter ABP, PAP, CO, CI - Last Documented Arterial Blood Pressure 110/44 - Exam GENERAL DESCRIPTION: An elderly male intubated on the vent RESPIRATORY SYSTEM: Unlabored breathing , decreased breath sounds at bases HEART: S1 S2 regular rate and rhythm , ABDOMEN: Soft , no tenderness EXTREMITIES: No edema feet - Labs CBC & Chem 7: 07/12/22 03:40 07/12/22 03:40 Labs: Abnormal Lab Results - Last 24 Hours (Table) 07/10/22 07/10/22 07/11/22 Range/Units 04:16 13:20 04:30 RBC (4.30-5.90) m/uL Hgb (13.0-17.5) gm/dL Hct (39.0-53.0) % Plt Count (150-450) k/uL Monocytes # (Manual) (0-1.0) k/uL PT 12.7 H 12.9 H (9.0-12.0) sec INR 1.2 H 1.2 H (<1.2) APTT 36.2 H (22.0-30.0) sec D-Dimer 2.15 H (<0.60) mg/L FEU ABG HCO3 (21-25) mmol/L ABG Total CO2 (19-24) mmol/L ABG O2 Saturation (94-97) % Sodium (137-145) mmol/L Chloride (98-107) mmol/L BUN (9-20) mg/dL Creatinine (0.66-1.25) mg/dL Calcium (8.4-10.2) mg/dL Phosphorus (2.5-4.5) mg/dL Iron 39 L (65-175) ug/dL TIBC 225 L (228-460) ug/dL Transferrin 161.0 L (204.0-354.0) mg/dL Total Bilirubin (0.2-1.3) mg/dL AST (17-59) U/L ALT (4-49) U/L Alkaline Phosphatase (38-126) U/L Total Protein (6.3-8.2) g/dL Albumin (3.5-5.0) g/dL Vitamin B12 1856.0 H (200.0-944.0) pg/mL 07/11/22 07/11/22 07/11/22 Range/Units 04:30 04:30 05:37 RBC 3.06 L (4.30-5.90) m/uL Hgb 9.6 L (13.0-17.5) gm/dL Hct 30.4 L (39.0-53.0) % Plt Count 31 L (150-450) k/uL Monocytes # (Manual) 1.38 H (0-1.0) k/uL PT (9.0-12.0) sec INR (<1.2) APTT (22.0-30.0) sec D-Dimer (<0.60) mg/L FEU ABG HCO3 26 H (21-25) mmol/L ABG Total CO2 27 H (19-24) mmol/L ABG O2 Saturation 97.7 H (94-97) % Sodium 133 L (137-145) mmol/L Chloride 96 L (98-107) mmol/L BUN 92 H (9-20) mg/dL Creatinine 4.67 H (0.66-1.25) mg/dL Calcium 8.2 L (8.4-10.2) mg/dL Phosphorus 5.3 H (2.5-4.5) mg/dL Iron (65-175) ug/dL TIBC (228-460) ug/dL Transferrin (204.0-354.0) mg/dL Total Bilirubin 2.7 H (0.2-1.3) mg/dL AST 152 H (17-59) U/L ALT 161 H (4-49) U/L Alkaline Phosphatase 140 H (38-126) U/L Total Protein 5.8 L (6.3-8.2) g/dL Albumin 2.7 L (3.5-5.0) g/dL Vitamin B12 (200.0-944.0) pg/mL Assessment and Plan (1) Bacteremia Current Visit: Yes Status: Acute Code(s): R78.81 - BACTEREMIA SNOMED Code(s): 5224772 Plan: 1patient with sepsis in this patient who did have a fever elevated white count elevated lactic acid now with evidence of gram-positive bacteremia with a source possible aspiration pneumonia as repeat x-ray did showed increasing density left lower lobe as the patient currently do not have any other obvious focus is abdominal soft on clinical examination no evidence of any joint swelling or cellulitis was noticed. 2blood cultures has been finalized as Streptococcus agalactiae repeat blood cultures have been negative so far 3-repeat CT with evidence of ascites and possible colitis in the left lower quadrant area, patient is status post paracentesis, white count was only 59 and cultures are so far negative 4- Patient with worsening respiratory status requiring intubation possible fluid overload plus minus a component of pneumonia questionable aspiration sputum culture has been obtained which are currently growing Rosanne more likely colonizer, 5-Patient white count has normalized however the patient has developed significant thrombocytopenia for which the patient was taken off the Zosyn 6- continue with the cefepime and monitor clinical course closely Time with Patient: Less than 30
--- NOTE | 2022-07-12 20:51 | P.PN ---
Subjective Progress Note Date: 07/12/22 Principal diagnosis: Bacteremia Patient is a 67 year old male presenting to the hospital in mental status changes and multiple falls did have a low-grade fever and elevated white count now with evidence of bacteremia. Patient is status post paracentesis with removal of 3 L of ascitic fluid completed on 06/30/2022, the patient did have left groin dialysis catheter placement and has been started on dialysis as of 07/05/2022, the patient has been extubated as of 07/11/2022 On today's evaluation that is 07/12/2022, the patient remains to be afebrile, the patient is a breathing comfortably on nasal cannula oxygen denies having any chest pain he did have some cough but not bringing up any sputum no vomiting no abdominal pain no diarrhea Objective - Vital Signs Vital signs: Vital Signs Temp 97.8 F 07/12/22 12:00 Pulse 68 07/12/22 14:00 Resp 13 07/12/22 14:00 BP 117/87 07/12/22 14:00 Pulse Ox 96 07/12/22 14:00 FiO2 30 07/11/22 20:00 Intake & Output 07/11/22 07/12/22 07/12/22 18:59 06:59 18:59 Intake Total 143.342 883.510 7149.0 Output Total 1600 465 450 Balance -1456.658 -293.863 784.0 Weight 104.3 kg 105.7 kg Intake: IV 143 156 154.0 0.9 @ 10 110 120 80 Cefepime 1 gm In Sodium 50.0 Chloride 0.9% 50 ml @ 12. 5 mls/hr IVPB Q12HR [facility] Rx#:[id number] Pressure bag 33 36 24 Intake, IV Titration 0.342 15.137 Amount Norepinephrine 32 mg In 0.342 Sodium Chloride 0.9% 218 ml @ 0.05 MCG/KG/MIN 2. 445 mls/hr IV .Q24H [facility] Rx#:[id number] Norepinephrine 8 mg In 15.137 Sodium Chloride 0.9% 250 ml @ 0.05 MCG/KG/MIN 10. 091 mls/hr IV .Q24H [facility] Rx#:[id number] Oral 1080 Output: Urine 600 465 450 Hemodialysis 1000 Other: Voiding Method Indwelling Catheter Indwelling Catheter Indwelling Catheter ABP, PAP, CO, CI - Last Documented Arterial Blood Pressure 116/57 - Exam GENERAL DESCRIPTION: An elderly male lying in bed in no distress RESPIRATORY SYSTEM: Unlabored breathing , decreased breath sounds at bases HEART: S1 S2 regular rate and rhythm , ABDOMEN: Soft , no tenderness EXTREMITIES: No edema feet - Labs CBC & Chem 7: 07/14/22 06:11 07/14/22 06:11 Labs: Abnormal Lab Results - Last 24 Hours (Table) 07/12/22 07/12/22 Range/Units 03:40 03:40 RBC 3.10 L (4.30-5.90) m/uL Hgb 9.8 L (13.0-17.5) gm/dL Hct 31.5 L (39.0-53.0) % MCV 101.7 H (80.0-100.0) fL Plt Count 31 L (150-450) k/uL BUN 67 H (9-20) mg/dL Creatinine 3.73 H (0.66-1.25) mg/dL Glucose 127 H (74-99) mg/dL Calcium 8.3 L (8.4-10.2) mg/dL Total Bilirubin 2.2 H (0.2-1.3) mg/dL AST 139 H (17-59) U/L ALT 153 H (4-49) U/L Alkaline Phosphatase 150 H (38-126) U/L Total Protein 6.2 L (6.3-8.2) g/dL Albumin 2.8 L (3.5-5.0) g/dL Assessment and Plan (1) Bacteremia Current Visit: Yes Status: Acute Code(s): R78.81 - BACTEREMIA SNOMED Code(s): 8726024 Plan: 1patient with sepsis in this patient who did have a fever elevated white count elevated lactic acid now with evidence of gram-positive bacteremia with a source possible aspiration pneumonia as repeat x-ray did showed increasing density left lower lobe as the patient currently do not have any other obvious focus is abdominal soft on clinical examination no evidence of any joint swelling or cellulitis was noticed. 2blood cultures has been finalized as Streptococcus agalactiae repeat blood cultures have been negative so far 3-repeat CT with evidence of ascites and possible colitis in the left lower quadrant area, patient is status post paracentesis, white count was only 59 and cultures are so far negative 4- Patient with worsening respiratory status requiring intubation possible fluid overload plus minus a component of pneumonia questionable aspiration sputum culture has been obtained which are currently growing Rosanne more likely colonizer, 5-Patient white count has normalized however the patient has developed significant thrombocytopenia for which the patient was taken off the Zosyn , the patient did not have further drop in his platelet count below 31,000 6- patient to continue with the cefepime and monitor clinical course closely Time with Patient: Less than 30
[2022-07-13 06:16] LABS: Albumin 2.8 g/dL (3.5-5.0); Total Bilirubin 1.9 mg/dL (0.2-1.3); Total Protein 6.2 g/dL (6.3-8.2)
[2022-07-13 06:31] LABS: HCT 29.5 % (39.0-53.0); HGB 9.5 gm/dL (13.0-17.5); Hypochromasia Marked; MCH 32.1 pg (25.0-35.0); MCHC 32.2 g/dL (31.0-37.0); MCV 99.7 fL (80.0-100.0); Macrocytosis Slight; Mean Platelet Volume 14.3; RBC 2.96 m/uL (4.30-5.90); RDW 14.4 % (11.5-15.5); WBC 8.6 k/uL (3.8-10.6)
[2022-07-13 06:39] LABS: Platelet Count 36 k/uL (150-450)
--- NOTE | 2022-07-13 07:11 | P.PN ---
Subjective Progress Note Date: 07/13/22 Principal diagnosis: Acute mental status changes. Pulmonary consultation dated 06/22/2022. 59-year-old male seen in the emergency department, on June 21. He apparently presented with mental status changes. In addition, he apparently was having multiple falls at home. The patient was seen and evaluated, and admitted to the hospital with a diagnosis of mental status changes, opiate dependence, COPD, acute kidney injury, and he went to the general medical floor. Today, a rapid response was called on this patient, and the patient was transferred down to the intensive care unit. Currently he is on 3 L nasal cannula. He is getting saline at 70 mL an hour, and dexmedetomidine at 1 mcg/kg/h. He apparently has a history of asthma, CVA, GERD, hyperlipidemia, hypertension, echo staxis, anxiety, and chronic tobacco dependence. Labs today include a white count of 21.9, hemoglobin 14.8, hematocrit 45.6, and a platelet count of 118,000. D- dimer is 2.12. PT is 15 with an INR 1.4. Blood gases, show pO2 of 117, pCO2 31, pH is 7.42. That was on 50% oxygen. Sodium 131, potassium 4.9, chlorides 100, CO2 22, BUN 52, and creatinine 1.28. Lactic acid was elevated at 5.9. I've asked the nurse to give the patient a liter of lactated Ringer's. Troponin was 0.237. Urine is got trace protein and trace glucose. Leukocyte esterase and nitrate were both negative. Drug screen was positive for opiates. Nasal swab testing was negative for coronavirus. Chest x-ray on admission was negative for an acute process. Head CT initially did not show anything acute. A repeat chest x-ray today showed increased interstitial densities in the left lower lobe. Progress note dated 06/23/2022. This is a 59-year-old male who was seen yesterday in consultation. He was initially seen on June 21 in the emergency room with mental status changes. The patient was transferred to the intensive care unit, because of worsening mental status, and some cardiovascular issues. Currently, the patient is on 3 L nasal cannula. He is getting lactated Ringer's at 75 mL an hour. He is on vancomycin and Unasyn. Was on Rocephin. He has been seen by infectious diseases and neurology. His CT angiogram was negative. Initially heparin was discontinued, but because of EKG changes, he'll be restarted. He is also on dexmedetomidine at 0.3 mcg/kg/h. I did speak to neurology about possible viral encephalitis, and we discussed the possibility of lumbar puncture, and acyclovir IV. White count 15.4, hemoglobin 13.2, hematocrit 41.5, and platelet count 225,000. Sodium, potassium, chloride, CO2, are all normal. BUN 66, and creatinine 0.89. Group B streptococci are in the blood cultures. Reevaluated today on 07/08/22, remains in the ICU intubated and mechanically ventilated. Patient is now on assist control rate of 24-500 FiO2 30% PEEP of 5 ABG showed a pO2 of 75 pCO2 43 pH of 7.42 patient remains on 30% FiO2. He is on TPN at 47 mL/h is also on Zosyn empirically. His abdomen remains distended and the patient continues to have ascites, I'm recommending interventional radiology to evaluate for possible paracentesis again on this patient. Patient has been off propofol since yesterday, he is arousable, opens his eyes, wiggling his toes, but remains very generally weak. We'll continue to hold propofol. In the meantime patient is not quite ready for weaning trials, but that is to be considered down the line. Patient remains on dialysis. Labs today showed relat ively normal electrolytes, BMI 57 creatinine 2.88. CBC is relatively unremarkable. Chest x-ray continues to show mild interstitial edema, and small left and right pleural effusion Reevaluated today on 07/09/22, remains in the ICU intubated mechanically ventilated patient is off propofol now for almost 2 days. Patient is arousable and follows very simple instructions like squeezing hands and wiggling toes however he is extremely generally weak. He is on assist control rate of 24th of volume 500 FiO2 30% PEEP of 5. ABG showed a pO2 of 78 pCO2 38 pH of 7.44 Patient is on small dose of norepinephrine at 0.02 mcg/kg/m is also on TPN at 47 mL/h. Chest x-ray continues to show improvement in his infiltrates/edema , patient remains on hemodialysis he had dialysis yesterday and 3.3 L were taken off. Patient may have a repeat paracentesis next Monday. WBC count today is 8.1 hemoglobin is 9.2. Basic metabolic profile is normal except for low potassium of 3.0 BUN is 55 creatinine 3.03. Today the patient would have a trial of pressure support and CPAP. Reevaluated today on 07/10/22, patient remains in the ICU intubated and mechanically ventilated, remains off propofol, remains on assist control rate of 24 to volume 500 FiO2 30% PEEP of 5, ABG showed a pO2 of 90 pCO2 of 37 pH of 7.47, CBC is relatively unremarkable. Basic metabolic profile is normal BUN is 75 creatinine 3.94, chest x-ray continues to show steady improvement in his interstitial edema and infiltrates. Clinically the patient seems to be more awake today, he remains off propofol, and I will go ahead and give the patient a trial of weaning if possible today. However after initiation of pressure support and CPAP, I was notified by the respiratory therapist that the patient has apnea episodes, and I recommended that we go on a pressure support of 10, IMV rate of 10, and continue same FiO2, continue same PEEP. The plan is to gradually go down the IMV rate by 2 every 2 hours. And hopefully we could avoid any further apnea episodes and may even consider extubating the patient if he tolerates this modality otherwise may keep him again on mechanical ventilation overnight with IMV and pressure support Progress note dated 07/11/2022. This is a 67-year-old male who was admitted back on June 21, for mental status changes. The patient was intubated on July 04, and remains on the mechanical ventilator. I saw him initially back on June 22 and . Currently, he is on the SIMV mode, rate 6, tidal volume 500, FiO2 30%, and PEEP of 5. Blood gases show pO2 of 88, pCO2 42, 7.4. The patient's getting saline at 10 mL an hour. Norepinephrine has been weaned off. Is getting Nepro at 10 mL an hour. He is also been weaned off. Microbiologic studies are negative. The patient remains on cefepime. The patient is apparently going to have a paracentesis performed by interventional radiology today. In addition, we'll get a repeat chest x-ray, and sometime later today, give the patient a spontaneous breathing trial. 6, 9.6, hematocrit 30.4, platelet count 31,000. PT is 12.9, with an INR 1.2. Sodium 133, potassium 4.1, chlorides 96, CO2 24, anion gap 13, BUN 92, and creatinine 4.67. AST is 152 with an ALT of 161. Blood cultures back from June 22 show evidence of group B streptococci. Chest x-ray from today shows relatively clear lung amado. Progress note dated 07/12/2022. 67-year-old male who was admitted on June 21, for mental status changes. He was intubated on July 04, for respiratory failure. Yesterday, July 11, the patient was extubated. He is currently on 2 L nasal cannula. His mental status is improving. He is getting a saline IV at 10 mL an hour. White count 7.5, hemoglobin 9.8, hematocrit 31.5, and platelet count 31,000. Sodium 137, potassium 4.3, chlorides 102, CO2 22, anion gap 13, BUN 67, and creatinine 3.73. Albumin is 2.8. Chest x-ray shows bilateral infiltrates, likely because the patient is not on positive pressure ventilation anymore. Progress note dated 07/13/2022. 67-year-old male was admitted back on June 21, for mental status changes. He was intubated for respiratory failure on July 04. On July 11, he was successfully extubated. He is currently on 2 L. Is getting saline at 20 mL an hour. The patient's mental status is much improved. Labs today include a white count of 8.6, hemoglobin 9.5, hematocrit 29.5, and a platelet count 36,000. Sodium 135, potassium, chloride, CO2, anion gap, all normal. BUN was 70 with a creatinine of 4.47. He is being followed by nephrology. Albumin is 2.8. Recent microbiologic data is negative. No chest x-ray today. The patient had an uneventful night, and in my opinion, could be transferred to the general medical or without telemetry. Objective - Vital Signs Vital signs: Vital Signs Temp 97.5 F L 07/13/22 04:00 Pulse 62 07/13/22 06:00 Resp 16 07/13/22 06:00 BP 117/87 07/13/22 06:00 Pulse Ox 95 07/13/22 06:00 FiO2 30 07/11/22 20:00 Intake & Output 07/12/22 07/13/22 07/13/22 18:59 06:59 18:59 Intake Total 1286.0 316 Output Total 800 1055 Balance 486.0 -739 Weight 111.6 kg Intake: IV 206.0 316 0.9 @ 10 120 230 Cefepime 1 gm In Sodium 50.0 50 Chloride 0.9% 50 ml @ 12. 5 mls/hr IVPB Q12HR [facility] Rx#:[id number] Pressure bag 36 36 Oral 1080 Output: Urine 800 1055 Other: Voiding Method Indwelling Catheter Indwelling Catheter ABP, PAP, CO, CI - Last Documented Arterial Blood Pressure 103/47 - Exam No acute distress, awake and alert, on 2 L of oxygen. HEENT examination is grossly unremarkable. Neck supple. Full range of motion. No adenopathy thyromegaly or neck vein distention. Cardiovascular examination reveals regular rhythm rate. S1-S2 normal. No S3 or S4. No discernible murmur noted. Heart rate 62 bpm. Heart sounds are distant. Lungs reveal mostly clear breath sounds. Breath sounds are equal bilaterally. Scattered rhonchi are noted. No wheezes or crackles. Saturations are 95 % Abdomen soft bowel sounds are heard. No masses or tenderness. Extremities reveal some mild edema. No cyanosis or clubbing. Skin reveals some chronic venous stasis changes. Neurologic examination reveals the patient with improved mental status and alertness. - Labs CBC & Chem 7: 07/13/22 05:20 07/13/22 05:20 Labs: Abnormal Lab Results - Last 24 Hours (Table) 07/12/22 07/13/22 07/13/22 Range/Units 18:20 05:20 05:20 RBC 2.96 L (4.30-5.90) m/uL Hgb 9.5 L (13.0-17.5) gm/dL Hct 29.5 L (39.0-53.0) % Plt Count 36 L (150-450) k/uL Sodium 135 L (137-145) mmol/L BUN 70 H (9-20) mg/dL Creatinine 4.47 H (0.66-1.25) mg/dL POC Glucose (mg/dL) 163 H (70-110) mg/dL Calcium 8.0 L (8.4-10.2) mg/dL Total Bilirubin 1.9 H (0.2-1.3) mg/dL AST 130 H (17-59) U/L ALT 142 H (4-49) U/L Alkaline Phosphatase 157 H (38-126) U/L Total Protein 6.2 L (6.3-8.2) g/dL Albumin 2.8 L (3.5-5.0) g/dL Assessment and Plan Assessment: Acute mental status changes, rapid respiratory rate, tachycardia, and elevated lactic acid, rule out either sepsis, or a primary neurologic event, status post intubation and mechanical ventilation on 07/04/2022. The patient was successfully extubated on July 11, 2022. Ascites, status post paracentesis abdominis. Acute kidney injury, requiring hemodialysis. History of CVA. History of hypertension. History of hyperlipidemia. History of asthma. History of gastroesophageal reflux disease. History of anxiety. History of chronic back. History of epistaxis. Plan: Plan dated 06/22/2022 The patient was transferred down to the intensive care. The patient is going for a computed tomography scan of the chest, to rule out pulmonary embolism. I've asked the nurses to switch his fluids to lactated Ringer's, and give him a bolus. In addition, I've asked the nurse to consult neurology for his mental status changes. Labs, x-rays, and medications are all reviewed. Prognosis is guarded. The patient is not very active at home. Plan dated 06/23/2022. The patient is currently on vancomycin and Unasyn. Blood cultures were positive for group B streptococci. I did discuss with neurology, and LP, and also the initiation of acyclovir. The patient appears to be a bit better today than he was yesterday. He still is on dexmedetomidine though. His vital signs seem reasonably stable. CTA was negative for pulmonary embolism. He had some EKG changes and will be started back on IV heparin. We will continue to follow make recommendations where appropriate. Prognosis is very guarded. Plan dated 07/11/2022. Norepinephrine has been weaned off. TPN has also been weaned off. The patient remains on the mechanical ventilator. He's not getting any sedatives. We will attempt to do a weaning trial on him, with possible extubation. Chest x-ray will be done in advance. Also, we will await interventional radiology performing the paracentesis abdominis. Labs, x-rays, and medications are reviewed. Microbiologic studies are negative. The patient does remain on cefepime. Overall prognosis remains very guarded. Plan dated 07/12/2022. The patient was successfully extubated yesterday on July 11. Currently, he's on 2 L. Labs, x-rays, and medications are reviewed. Is getting saline at 10 mL an hour. I did speak to him briefly as to whether or not he would want go back on life support. He said he will give this some thought. No additional recommendations are made. Prognosis is guarded. Plan dated 07/13/2022. The patient was successfully extubated on July 11. He's currently on 2 L. His mental status is much improved. He had an uneventful night. Labs, chest x- ray, and medications are reviewed. The patient could be transferred out to the general medical floor without telemetry. No additional recommendations are made. Overall prognosis remains guarded. Time with Patient: Less than 30
[2022-07-13] MEDS: IPRATROPIUM-ALBUTEROL 3 ML NEB INHALATION SCH ×4 (07:26→20:18)
[2022-07-13] MEDS: ATORVASTATIN 40 MG TAB PO SCH (08:42)
[2022-07-13] MEDS: LEVOTHYROXINE 88 MCG TAB PO SCH (08:42)
[2022-07-13] MEDS: METOPROLOL SUCCINATE (ER) 25 MG TAB.ER.24H PO SCH (08:42)
[2022-07-13] MEDS: PANTOPRAZOLE 40 MG/10 ML VIAL IVP SCH ×2 (08:43→21:28)
[2022-07-13] MEDS: NICOTINE 7MG/24HR PATCH TRANSDERM SCH (08:43)
[2022-07-13] MEDS: FUROSEMIDE 10 MG/ML 10 ML VIAL IV SCH ×2 (08:43→21:29)
[2022-07-13] MEDS: CEFEPIME 1 GM in SODIUM CHLORIDE 0.9% 50 ML IVPB SCH ×2 (08:44→21:29)
[2022-07-13] MEDS: ACETAMINOPHEN TAB 500 MG TAB PO PRN ×2 (08:59→22:31)
--- NOTE | 2022-07-13 11:22 | P.PN ---
Subjective Progress Note Date: 07/13/22 CHIEF COMPLAINT: Abdominal distention HISTORY OF PRESENT ILLNESS: Patient in the ICU. He is confused today. he is tolerating regular diet. Denies abdominal pain. He is having flatus. No bowel movement. Denies any nausea or vomiting. Afebrile. WBC 8.6 Hgb 9.5 platelets 36 cr 4.47 PHYSICAL EXAM: VITAL SIGNS: Reviewed GENERAL: No acute distress HEENT: No sclera icterus.Moist buccal mucosa. Head is atraumatic, normocephalic. NECK: Supple without lymphadenopathy. CHEST: Non-labored respirations and equal bilateral excursions. CARDIOVASCULAR: Palpable 2+ radial pulses. ABDOMEN: Soft. distended. Nontender MUSCULOSKELETAL: No clubbing or cyanosis. ASSESSMENT: 1. Duodenitis and jejunitis 2. Enteritis 3. Gastritis 4. Cirrhosis with abdominal ascites 5. Leukocytosis resolved 6. Ileus 7. GI bleed resolved 8. Acute respiratory failure 9. Acute kidney injury PLAN: -Continue ICU management -Continue supportive care -Continue to monitor -Continue Heart healthy diet -GI prophylaxis Protonix and DVT prophylaxis Lovenox Physician Shoe Singer note has been reviewed by physician. Signing provider agrees with the documented findings, assessment, and plan of care. 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 Based on total visit time, I have performed more than 50% of the visit. As above: Patient remains in the ICU. He is mildly confused. Denies abdominal pain. Abdomen is mildly distended likely from underlying ascites. He is nontender. No surgical plans at this point. Continue management of ascites and abdominal bloating per GI. We'll sign off at this point. Please call if needed. Objective - Vital Signs Vital signs: Vital Signs Temp 98.2 F 07/13/22 08:00 Pulse 77 07/13/22 08:00 Resp 18 07/13/22 08:00 BP 117/87 07/13/22 08:00 Pulse Ox 95 07/13/22 06:00 FiO2 30 07/11/22 20:00 Intake & Output 07/12/22 07/13/22 07/13/22 18:59 06:59 18:59 Intake Total 1286.0 316 23 Output Total 800 1055 120 Balance 486.0 -739 -97 Weight 111.6 kg Intake: IV 206.0 316 23 0.9 @ 10 120 230 20 Cefepime 1 gm In Sodium 50.0 50 Chloride 0.9% 50 ml @ 12. 5 mls/hr IVPB Q12HR [facility] Rx#:[id number] Pressure bag 36 36 3 Oral 1080 Output: Urine 800 1055 120 Other: Voiding Method Indwelling Catheter Indwelling Catheter Indwelling Catheter ABP, PAP, CO, CI - Last Documented Arterial Blood Pressure 103/47 - Labs CBC & Chem 7: 07/13/22 05:20 07/13/22 05:20 Labs: Abnormal Lab Results - Last 24 Hours (Table) 07/12/22 07/13/22 07/13/22 Range/Units 18:20 05:20 05:20 RBC 2.96 L (4.30-5.90) m/uL Hgb 9.5 L (13.0-17.5) gm/dL Hct 29.5 L (39.0-53.0) % Plt Count 36 L (150-450) k/uL Sodium 135 L (137-145) mmol/L BUN 70 H (9-20) mg/dL Creatinine 4.47 H (0.66-1.25) mg/dL POC Glucose (mg/dL) 163 H (70-110) mg/dL Calcium 8.0 L (8.4-10.2) mg/dL Total Bilirubin 1.9 H (0.2-1.3) mg/dL AST 130 H (17-59) U/L ALT 142 H (4-49) U/L Alkaline Phosphatase 157 H (38-126) U/L Total Protein 6.2 L (6.3-8.2) g/dL Albumin 2.8 L (3.5-5.0) g/dL
--- NOTE | 2022-07-13 15:41 | XR ---
EXAMINATION TYPE: XR wrist limited RT DATE OF EXAM: 07/13/2022 CLINICAL HISTORY: Fall injury with pain TECHNIQUE: Frontal and lateral images of the right wrist are obtained. COMPARISON: Right wrist x-ray June 22, 2022 FINDINGS: There is no acute displaced fracture evident in the right wrist. More prominent narrowing radial scaphoid joint space with joint space sclerosis current study. Increased prominence of the sca pholunate space but measuring 3 mm which is still within normal limits. Advanced triscaphe joint spa ce narrowing more prominent from prior study. On lateral view there is oblique lucency suspicious for nondisplaced fracture through the scaphoid. IMPRESSION: As above. Consider MRI or CT evaluation to more definitively evaluate.
--- NOTE | 2022-07-13 17:46 | P.PN ---
Subjective Progress Note Date: 07/12/22 Ag Souza, is a 67-year-old male who presented to [facility] emergency room after having a multiple falls at home, has significant mental status changes with somnolence and poor responsiveness, history per his , over the last 24 hours patient has been not feeling well, he fell twice at home, on the second time she was not able to wake him up and get him up from the floor through the bed, she called EMS and he was brought into emergency room. He was evaluated in the emergency room vital examination on presentation revealed a temperature of 97.3 pulse 82 respiration 16 blood pressure 121/67 pulse ox 97% on room air Laboratory data revealed a white blood count of 23.2 hemoglobin 14.4 platelet count 98,000 sodium 129 potassium 4.9 chloride 96 CO2 25 BUN 51 creatinine 2.24 troponin level was 0.02 COVID-19 testing was negative Testing in the emergency room revealed chest x-ray done in the emergency room did not reveal significant abnormality. Patient has a known history of degenerative disc disease with chronic pain maintained on narcotics for pain management he was given Narcan in the emergency room which led to improvement in his mental status. Patient was admitted to medical floor for further evaluation and treatment. On 06/22/2022 patient was seen and examined on the telemetry floor he is still somnolent, agitated, pulling on his IV line, he was started through the night on IV Ativan, vital examination reveals a temperature of 98.4 pulse 132 respiration 24 blood pressure 172/91 pulse ox 96% on 2 L nasal cannula, white blood count is 21.9 hemoglobin 14.8 platelet count 118 d-dimer was elevated at 2.12 at this time will start patient on IV heparin high-intensity for possible pulmonary embolism, his kidney function is still elevated, will defer computed tomography scan this time, he is not cooperative to proceed with VQ scan, will continue with IV fluid, nephrology consultation and infectious disease consultation were requested. On 06/23/2022 patient was seen and examined in the ICU he is more alert and oriented today vital exam reveals a temperature of 98.2 pulse 86 respiration 23 blood pressure 138/79 pulse ox 93% on 2 L nasal cannula white blood count is down to 15.4 hemoglobin 13.2 platelet count 125 kidney function improved with BUN at 66 and creatinine at 0.89 kidney ultrasound was done and revealed no evidence of renal stones or obstruction, CT angiogram of the chest was done and there was no evidence of pulmonary embolism, blood culture were positive for Streptococcus group b , patient is currently maintained on IV Unasyn, IV vanc omycin and IV acyclovir, cardiology, pulmonary, nephrology, neurology and infectious disease are following On 06/24/2022 patient was seen and examined in the ICU he is more alert and oriented today kidney ultrasound was done and revealed no evidence of renal stones or obstruction, CT angiogram of the chest was done and there was no evidence of pulmonary embolism, blood culture were positive for Streptococcus group b , patient is currently maintained on IV Unasyn, IV vancomycin and IV acyclovir, cardiology, pulmonary, nephrology, neurology and infectious disease are following. Patient had a maroon colored stools through the night, GI consultation is not available this week, surgical consultation was requested for evaluation for possible GI bleed On 06/25/2022 patient was seen and examined in the ICU, he is more alert and responsive today, there is no fever or chills no headache or dizziness no chest pain no shortness of breath no cough no nausea or vomiting no abdominal pain no diarrhea and no urinary symptoms. IV heparin has been discontinued, at this time will start subcu Lovenox for DVT prophylaxis, he remains on IV antibiotics cefazolin 2 g IV every 8 hours. On 06/26/2022 patient was seen and examined in the ICU he is alert and oriented 3 in no apparent distress he is complaining of abdominal discomfort otherwise he denies any complaint at this time there is no fever or chills no headache or dizziness no chest pain no shortness of breath no cough no nausea or vomiting no diarrhea no blood in the stools no burning with urination no frequency or urgency and no hematuria. On 06/27/2022 patient was seen and examined on in the ICU he is alert and oriented 3, he is feeling better, he had multiple bowel movements and his abdominal pain has improved, he is still complaining of difficulty sleeping at night otherwise he denies any complaints there is no fever or chills no headache or dizziness no chest pain no shortness of breath no cough no nausea or vomiting no abdominal pain no diarrhea no blood in the stools no burning with urination no frequency or urgency and no hematuria. On 06/28/2022 patient was seen and examined on the medical floor he is alert and oriented 3 in no distress there is no fever or chills no headache or dizziness no chest pain no shortness of breath no cough no nausea or vomiting no abdominal pain no diarrhea, no blood in the stools no burning with urination no frequency or urgency and no hematuria patient has generalized weakness he is improving gradually will continue to follow closely physical therapy is following On 06/29/2022 patient was seen and examined on the medical floor he is alert and oriented 3 in no apparent distress there is no fever or chills no headache or dizziness no chest pain no shortness of breath no cough no nausea or vomiting he is complaining of abdominal discomfort with abdominal distention no diarrhea or constipation no blood in the stools no burning with urination no frequency or urgency and no hematuria. At this time patient is scheduled for computed tomography scan of the abdomen and pelvis will continue to monitor closely. On 06/30/2022 patient was seen and examined on the telemetry floor he is alert and oriented 3 in no apparent distress he is complaining now of severe neck gina n and back pain and requesting [place], patient underwent paracentesis today, 3.5 L of fluid were removed, otherwise patient denies any other symptoms there is no fever or chills no headache or dizziness no chest pain no shortness of breath no cough no nausea or vomiting no abdominal pain no diarrhea and no urinary symptoms On 07/01/2022 patient was seen and examined on the medical floor he is alert and oriented 3 in no apparent distress he is complaining of abdominal discomfort and distention otherwise he denies any complaints at this time there is no fever or chills no headache or dizziness no chest pain no shortness of breath no cough no nausea or vomiting no diarrhea no blood in the stools no burning with urination no frequency or urgency and no hematuria On 07/02/2022 patient was seen and examined on the medical floor he is alert and oriented 3 in no apparent distress he is complaining of abdominal discomfort and distention, he is complaining of bilateral hip pain, he received 1 dose of lactulose and had multiple episodes of diarrhea afterwards lactulose was discontinued, otherwise he denies any complaints at this time there is no fever or chills no headache or dizziness no chest pain no shortness of breath no cough no nausea or vomiting no blood in the stools no burning with urination no frequency or urgency and no hematuria. On 07/03/2022 patient was seen and examined the medical he is alert and oriented he is complaining of abdominal distention was discomfort and shortness of breath otherwise he denies any complaints there is no fever or chills no headache or dizziness no chest pain no cough no nausea or vomiting no urinary symptoms On 07/04/2022 patient was seen and examined in the ICU he is more lethargic today he was started on BiPAP and transferred to ICU today ammonia level is elevated at 38 there is no fever or chills no headache or dizziness no chest pain patient has significant distention in the abdomen, no nausea or vomiting no diarrhea, Russo catheter is in. On 07/05/2022 patient was seen and examined in the ICU at this time he is intubated sedated maintained on mechanical ventilation, currently he is on assist control rate of 20 to FiO2 50% and PEEP of 5 he had a dialysis catheter placed and a session of hemodialysis is scheduled for this afternoon, patient is maintained on norepinephrine drip, white blood count is up to 25,000 hemoglobin is 11 BUN is up to 78 and creatinine 2.47 patient is maintained on IV Zosyn infectious disease are following, prognosis is guarded will continue with aggressive management at this time and sister are at the bedside and are aware of patient's condition. On 07/06/2022 patient was seen and examined in the ICU he is intubated sedated maintained on mechanical ventilation assist control rate 22 FiO2 50% with PEEP of 5 he was started on hemodialysis yesterday he is still IV antibiotic and IV fluid and norepinephrine temperature of 97.7 pulse 96 respiration 24 blood pressure 128/48 sodium 135 potassium 4.4 chloride 101 CO2 22 BUN 78 creatinine 3.19 white blood count 17.4 hemoglobin 10.5 platelet count 167 On 07/07/2022 patient was seen and examined in the ICU he is intubated sedated maintained on mechanical ventilation, he is maintained on assist control FiO2 40% feet 058 arterial blood gas is improving is maintained on TPN he is maintained on IV antibiotics he is maintained on hemodialysis vital exam reveals a temperature of 97.2 pulse 75 respiration 24 blood pressure 128/48 pulse ox 100% BUN is 63 creatinine 2.86 On 07/08/2022 patient was seen and examined in the ICU he is intubated sedated maintained on mechanical ventilation he is maintained on norepinephrine for pressure support, he is maintained on IV Zosyn, he was started on hemodialysis, clinically patient is stable. His vital exam reveals a temperature of 98.7 pulse 84 respiration 24 blood pressure 132/49 pulse ox 94% on mechanical ventilation FiO2 30% On 07/09/2022 patient was seen and examined in the ICU currently he is on mechanical ventilation assist control rate of 24 FiO2 30% with a PEEP of 5, he is off propofol, he is awake and tries to answer questions with yes or no by moving his head he is moving his hands there has been a significant drop in his platelet count yesterday and today, I will check heparin induced antibodies and hold Lovenox for today, I have contacted Dr. Barajas over the phone and asked if he can switch Zosyn to a different antibiotic, otherwise patient is stable will continue to monitor closely. On 07/10/2022 patient was seen and examined in the ICU he is intubated sedated maintained on mechanical ventilation, he is on assist control rate of 24 FiO2 30% with a PEEP of 5 at this time platelet count is down to 41 Zosyn was switched yesterday by Dr. Barajas to Cefepime, heparin induced antibodies are still pending consult for hematology requested in regard to thrombocytopenia, patient is also having episodes of atrial fibrillation during dialysis he has bradycardia with a heart rate of 49 consultation for cardiology will be initiated otherwise patient is stable without significant change since yesterday. On 07/11/2022 patient was seen and examined in the ICU he is extubated entertained on oxygen via nasal cannula patient is alert and oriented and answering questions appropriately he is complaining of generalized weakness and generalized pain otherwise he denies any complaint On 07/12/2022 patient was seen and examined in the ICU he is extubated maintained on oxygen via nasal cannula, he is alert and oriented in no distress he is complaining of generalized weakness and generalized pain otherwise he denies any complaint Objective - Vital Signs Vital signs: Vital Signs Temp 97.6 F 07/12/22 07:00 Pulse 66 07/12/22 07:41 Resp 16 07/12/22 07:00 BP 86/70 07/12/22 07:00 Pulse Ox 96 07/12/22 07:33 FiO2 30 07/11/22 20:00 Intake & Output 07/11/22 07/12/22 07/12/22 18:59 06:59 18:59 Intake Total 143.342 171.137 38.5 Output Total 1600 465 155 Balance -1456.658 -293.863 -116.5 Weight 104.3 kg 105.7 kg Intake: IV 143 156 38.5 0.9 @ 10 110 120 20 Cefepime 1 gm In Sodium 12.5 Chloride 0.9% 50 ml @ 12. 5 mls/hr IVPB Q12HR [facility] Rx#:[id number] Pressure bag 33 36 6 Intake, IV Titration 0.342 15.137 Amount Norepinephrine 32 mg In 0.342 Sodium Chloride 0.9% 218 ml @ 0.05 MCG/KG/MIN 2. 445 mls/hr IV .Q24H [facility] Rx#:[id number] Norepinephrine 8 mg In 15.137 Sodium Chloride 0.9% 250 ml @ 0.05 MCG/KG/MIN 10. 091 mls/hr IV .Q24H [facility] Rx#:[id number] Output: Urine 600 465 155 Hemodialysis 1000 Other: Voiding Method Indwelling Catheter Indwelling Catheter ABP, PAP, CO, CI - Last Documented Arterial Blood Pressure 116/47 - Exam In general patient is alert and responsive in no apparent distress HEENT head normocephalic and atraumatic Neck is supple no JVD no goiter no lymphadenopathy no carotid bruit Chest examination is clear to auscultation no crackles no wheezing Cardiac exam reveals regular heart sounds S1 and S2 no gallops no murmurs Abdomen is distended with generalized tenderness, no organomegaly Extremity exam reveals no edema no cyanosis or clubbing Neurological examination reveals no gross focal deficits - Labs CBC & Chem 7: 07/13/22 05:20 07/13/22 05:20 Labs: Abnormal Lab Results - Last 24 Hours (Table) 07/09/22 07/11/22 07/12/22 Range/Units 14:44 13:13 03:40 RBC 3.10 L (4.30-5.90) m/uL Hgb 9.8 L (13.0-17.5) gm/dL Hct 31.5 L (39.0-53.0) % MCV 101.7 H (80.0-100.0) fL Plt Count 31 L (150-450) k/uL ABG pH 7.34 L (7.35-7.45) ABG pCO2 47 H (35-45) mmHg ABG pO2 75 L (83-108) mmHg ABG Total CO2 27 H (19-24) mmol/L BUN (9-20) mg/dL Creatinine (0.66-1.25) mg/dL Glucose (74-99) mg/dL Calcium (8.4-10.2) mg/dL Total Bilirubin (0.2-1.3) mg/dL AST (17-59) U/L ALT (4-49) U/L Alkaline Phosphatase (38-126) U/L Total Protein (6.3-8.2) g/dL Albumin (3.5-5.0) g/dL Heparin-Ind Plt Ab Scrn 0.715 H (<0.4) OD 07/12/22 Range/Units 03:40 RBC (4.30-5.90) m/uL Hgb (13.0-17.5) gm/dL Hct (39.0-53.0) % MCV (80.0-100.0) fL Plt Count (150-450) k/uL ABG pH (7.35-7.45) ABG pCO2 (35-45) mmHg ABG pO2 (83-108) mmHg ABG Total CO2 (19-24) mmol/L BUN 67 H (9-20) mg/dL Creatinine 3.73 H (0.66-1.25) mg/dL Glucose 127 H (74-99) mg/dL Calcium 8.3 L (8.4-10.2) mg/dL Total Bilirubin 2.2 H (0.2-1.3) mg/dL AST 139 H (17-59) U/L ALT 153 H (4-49) U/L Alkaline Phosphatase 150 H (38-126) U/L Total Protein 6.2 L (6.3-8.2) g/dL Albumin 2.8 L (3.5-5.0) g/dL Heparin-Ind Plt Ab Scrn (<0.4) OD Assessment and Plan Plan: Mental status changes, cause is unclear could be related to overdose of narcotic Leukocytosis, no clear source of infection, chest x-ray and urine analysis don't show any clear evidence of infection, patient received IV steroids in the EMS and in the emergency room, will check lactic acid level and monitor CBC Acute exacerbation of COPD with wheezing on presentation, he was started on IV Solu-Medrol in the emergency room, he is on inhaled bronchodilators Evidence of acute kidney injury was elevated BUN and creatinine patient was started on IV fluid, nephrology consultation was requested Abdominal ascites, status post paracentesis 06/30/2022 with 3.5 L of fluid removed, Evidence of liver cirrhosis Mild elevation in troponin level will monitor Underlying history of hypertension Underlying history of hypothyroidism Underlying history of depression with anxiety disorder Underlying history of vitamin D deficiency Underlying history of degenerative disc disease with chronic back pain maintained on narcotics for pain management Underlying history of gastroesophageal reflux disease At this time patient is admitted to telemetry floor Will check d-dimer check lactic acid recheck CBC and CMP Continue with IV fluid and recheck renal function Consult nephrology
--- NOTE | 2022-07-13 17:48 | P.PN ---
Subjective Progress Note Date: 07/13/22 Ag Souza, is a 67-year-old male who presented to [facility] emergency room after having a multiple falls at home, has significant mental status changes with somnolence and poor responsiveness, history per his , over the last 24 hours patient has been not feeling well, he fell twice at home, on the second time she was not able to wake him up and get him up from the floor through the bed, she called EMS and he was brought into emergency room. He was evaluated in the emergency room vital examination on presentation revealed a temperature of 97.3 pulse 82 respiration 16 blood pressure 121/67 pulse ox 97% on room air Laboratory data revealed a white blood count of 23.2 hemoglobin 14.4 platelet count 98,000 sodium 129 potassium 4.9 chloride 96 CO2 25 BUN 51 creatinine 2.24 troponin level was 0.02 COVID-19 testing was negative Testing in the emergency room revealed chest x-ray done in the emergency room did not reveal significant abnormality. Patient has a known history of degenerative disc disease with chronic pain maintained on narcotics for pain management he was given Narcan in the emergency room which led to improvement in his mental status. Patient was admitted to medical floor for further evaluation and treatment. On 06/22/2022 patient was seen and examined on the telemetry floor he is still somnolent, agitated, pulling on his IV line, he was started through the night on IV Ativan, vital examination reveals a temperature of 98.4 pulse 132 respiration 24 blood pressure 172/91 pulse ox 96% on 2 L nasal cannula, white blood count is 21.9 hemoglobin 14.8 platelet count 118 d-dimer was elevated at 2.12 at this time will start patient on IV heparin high-intensity for possible pulmonary embolism, his kidney function is still elevated, will defer computed tomography scan this time, he is not cooperative to proceed with VQ scan, will continue with IV fluid, nephrology consultation and infectious disease consultation were requested. On 06/23/2022 patient was seen and examined in the ICU he is more alert and oriented today vital exam reveals a temperature of 98.2 pulse 86 respiration 23 blood pressure 138/79 pulse ox 93% on 2 L nasal cannula white blood count is down to 15.4 hemoglobin 13.2 platelet count 125 kidney function improved with BUN at 66 and creatinine at 0.89 kidney ultrasound was done and revealed no evidence of renal stones or obstruction, CT angiogram of the chest was done and there was no evidence of pulmonary embolism, blood culture were positive for Streptococcus group b , patient is currently maintained on IV Unasyn, IV vanc omycin and IV acyclovir, cardiology, pulmonary, nephrology, neurology and infectious disease are following On 06/24/2022 patient was seen and examined in the ICU he is more alert and oriented today kidney ultrasound was done and revealed no evidence of renal stones or obstruction, CT angiogram of the chest was done and there was no evidence of pulmonary embolism, blood culture were positive for Streptococcus group b , patient is currently maintained on IV Unasyn, IV vancomycin and IV acyclovir, cardiology, pulmonary, nephrology, neurology and infectious disease are following. Patient had a maroon colored stools through the night, GI consultation is not available this week, surgical consultation was requested for evaluation for possible GI bleed On 06/25/2022 patient was seen and examined in the ICU, he is more alert and responsive today, there is no fever or chills no headache or dizziness no chest pain no shortness of breath no cough no nausea or vomiting no abdominal pain no diarrhea and no urinary symptoms. IV heparin has been discontinued, at this time will start subcu Lovenox for DVT prophylaxis, he remains on IV antibiotics cefazolin 2 g IV every 8 hours. On 06/26/2022 patient was seen and examined in the ICU he is alert and oriented 3 in no apparent distress he is complaining of abdominal discomfort otherwise he denies any complaint at this time there is no fever or chills no headache or dizziness no chest pain no shortness of breath no cough no nausea or vomiting no diarrhea no blood in the stools no burning with urination no frequency or urgency and no hematuria. On 06/27/2022 patient was seen and examined on in the ICU he is alert and oriented 3, he is feeling better, he had multiple bowel movements and his abdominal pain has improved, he is still complaining of difficulty sleeping at night otherwise he denies any complaints there is no fever or chills no headache or dizziness no chest pain no shortness of breath no cough no nausea or vomiting no abdominal pain no diarrhea no blood in the stools no burning with urination no frequency or urgency and no hematuria. On 06/28/2022 patient was seen and examined on the medical floor he is alert and oriented 3 in no distress there is no fever or chills no headache or dizziness no chest pain no shortness of breath no cough no nausea or vomiting no abdominal pain no diarrhea, no blood in the stools no burning with urination no frequency or urgency and no hematuria patient has generalized weakness he is improving gradually will continue to follow closely physical therapy is following On 06/29/2022 patient was seen and examined on the medical floor he is alert and oriented 3 in no apparent distress there is no fever or chills no headache or dizziness no chest pain no shortness of breath no cough no nausea or vomiting he is complaining of abdominal discomfort with abdominal distention no diarrhea or constipation no blood in the stools no burning with urination no frequency or urgency and no hematuria. At this time patient is scheduled for computed tomography scan of the abdomen and pelvis will continue to monitor closely. On 06/30/2022 patient was seen and examined on the telemetry floor he is alert and oriented 3 in no apparent distress he is complaining now of severe neck gina n and back pain and requesting [place], patient underwent paracentesis today, 3.5 L of fluid were removed, otherwise patient denies any other symptoms there is no fever or chills no headache or dizziness no chest pain no shortness of breath no cough no nausea or vomiting no abdominal pain no diarrhea and no urinary symptoms On 07/01/2022 patient was seen and examined on the medical floor he is alert and oriented 3 in no apparent distress he is complaining of abdominal discomfort and distention otherwise he denies any complaints at this time there is no fever or chills no headache or dizziness no chest pain no shortness of breath no cough no nausea or vomiting no diarrhea no blood in the stools no burning with urination no frequency or urgency and no hematuria On 07/02/2022 patient was seen and examined on the medical floor he is alert and oriented 3 in no apparent distress he is complaining of abdominal discomfort and distention, he is complaining of bilateral hip pain, he received 1 dose of lactulose and had multiple episodes of diarrhea afterwards lactulose was discontinued, otherwise he denies any complaints at this time there is no fever or chills no headache or dizziness no chest pain no shortness of breath no cough no nausea or vomiting no blood in the stools no burning with urination no frequency or urgency and no hematuria. On 07/03/2022 patient was seen and examined the medical he is alert and oriented he is complaining of abdominal distention was discomfort and shortness of breath otherwise he denies any complaints there is no fever or chills no headache or dizziness no chest pain no cough no nausea or vomiting no urinary symptoms On 07/04/2022 patient was seen and examined in the ICU he is more lethargic today he was started on BiPAP and transferred to ICU today ammonia level is elevated at 38 there is no fever or chills no headache or dizziness no chest pain patient has significant distention in the abdomen, no nausea or vomiting no diarrhea, Russo catheter is in. On 07/05/2022 patient was seen and examined in the ICU at this time he is intubated sedated maintained on mechanical ventilation, currently he is on assist control rate of 20 to FiO2 50% and PEEP of 5 he had a dialysis catheter placed and a session of hemodialysis is scheduled for this afternoon, patient is maintained on norepinephrine drip, white blood count is up to 25,000 hemoglobin is 11 BUN is up to 78 and creatinine 2.47 patient is maintained on IV Zosyn infectious disease are following, prognosis is guarded will continue with aggressive management at this time and sister are at the bedside and are aware of patient's condition. On 07/06/2022 patient was seen and examined in the ICU he is intubated sedated maintained on mechanical ventilation assist control rate 22 FiO2 50% with PEEP of 5 he was started on hemodialysis yesterday he is still IV antibiotic and IV fluid and norepinephrine temperature of 97.7 pulse 96 respiration 24 blood pressure 128/48 sodium 135 potassium 4.4 chloride 101 CO2 22 BUN 78 creatinine 3.19 white blood count 17.4 hemoglobin 10.5 platelet count 167 On 07/07/2022 patient was seen and examined in the ICU he is intubated sedated maintained on mechanical ventilation, he is maintained on assist control FiO2 40% feet 058 arterial blood gas is improving is maintained on TPN he is maintained on IV antibiotics he is maintained on hemodialysis vital exam reveals a temperature of 97.2 pulse 75 respiration 24 blood pressure 128/48 pulse ox 100% BUN is 63 creatinine 2.86 On 07/08/2022 patient was seen and examined in the ICU he is intubated sedated maintained on mechanical ventilation he is maintained on norepinephrine for pressure support, he is maintained on IV Zosyn, he was started on hemodialysis, clinically patient is stable. His vital exam reveals a temperature of 98.7 pulse 84 respiration 24 blood pressure 132/49 pulse ox 94% on mechanical ventilation FiO2 30% On 07/09/2022 patient was seen and examined in the ICU currently he is on mechanical ventilation assist control rate of 24 FiO2 30% with a PEEP of 5, he is off propofol, he is awake and tries to answer questions with yes or no by moving his head he is moving his hands there has been a significant drop in his platelet count yesterday and today, I will check heparin induced antibodies and hold Lovenox for today, I have contacted Dr. Barajas over the phone and asked if he can switch Zosyn to a different antibiotic, otherwise patient is stable will continue to monitor closely. On 07/10/2022 patient was seen and examined in the ICU he is intubated sedated maintained on mechanical ventilation, he is on assist control rate of 24 FiO2 30% with a PEEP of 5 at this time platelet count is down to 41 Zosyn was switched yesterday by Dr. Barajas to Cefepime, heparin induced antibodies are still pending consult for hematology requested in regard to thrombocytopenia, patient is also having episodes of atrial fibrillation during dialysis he has bradycardia with a heart rate of 49 consultation for cardiology will be initiated otherwise patient is stable without significant change since yesterday. On 07/11/2022 patient was seen and examined in the ICU he is extubated entertained on oxygen via nasal cannula patient is alert and oriented and answering questions appropriately he is complaining of generalized weakness and generalized pain otherwise he denies any complaint On 07/12/2022 patient was seen and examined in the ICU he is extubated maintained on oxygen via nasal cannula, he is alert and oriented in no distress he is complaining of generalized weakness and generalized pain otherwise he denies any complaint On 07/13/2022 patient was seen and examined in the ICU, he is alert and oriented 3 in no distress there is no fever or chills no headache or dizziness no chest pain no shortness of breath no cough no nausea or vomiting no abdominal pain no diarrhea no blood in the stools he has a Russo catheter in he is complaining of right wrist pain with check x-ray he is also complaining of generalized weakness Objective - Vital Signs Vital signs: Vital Signs Temp 98.4 F 07/13/22 14:00 Pulse 68 07/13/22 14:00 Resp 12 07/13/22 14:00 BP 122/65 07/13/22 14:00 Pulse Ox 95 07/13/22 06:00 FiO2 30 07/11/22 20:00 Intake & Output 07/12/22 07/13/22 07/13/22 18:59 06:59 18:59 Intake Total 1286.0 316 23 Output Total 800 1055 120 Balance 486.0 -739 -97 Weight 111.6 kg Intake: IV 206.0 316 23 0.9 @ 10 120 230 20 Cefepime 1 gm In Sodium 50.0 50 Chloride 0.9% 50 ml @ 12. 5 mls/hr IVPB Q12HR [facility] Rx#:[id number] Pressure bag 36 36 3 Oral 1080 Output: Urine 800 1055 120 Other: Voiding Method Indwelling Catheter Indwelling Catheter Indwelling Catheter ABP, PAP, CO, CI - Last Documented Arterial Blood Pressure 103/47 - Exam In general patient is alert and responsive in no apparent distress HEENT head normocephalic and atraumatic Neck is supple no JVD no goiter no lymphadenopathy no carotid bruit Chest examination is clear to auscultation no crackles no wheezing Cardiac exam reveals regular heart sounds S1 and S2 no gallops no murmurs Abdomen is distended with generalized tenderness, no organomegaly Extremity exam reveals no edema no cyanosis or clubbing Neurological examination reveals no gross focal deficits - Labs CBC & Chem 7: 07/13/22 05:20 07/13/22 05:20 Labs: Abnormal Lab Results - Last 24 Hours (Table) 07/12/22 07/13/22 07/13/22 Range/Units 18:20 05:20 05:20 RBC 2.96 L (4.30-5.90) m/uL Hgb 9.5 L (13.0-17.5) gm/dL Hct 29.5 L (39.0-53.0) % Plt Count 36 L (150-450) k/uL Sodium 135 L (137-145) mmol/L BUN 70 H (9-20) mg/dL Creatinine 4.47 H (0.66-1.25) mg/dL POC Glucose (mg/dL) 163 H (70-110) mg/dL Calcium 8.0 L (8.4-10.2) mg/dL Total Bilirubin 1.9 H (0.2-1.3) mg/dL AST 130 H (17-59) U/L ALT 142 H (4-49) U/L Alkaline Phosphatase 157 H (38-126) U/L Total Protein 6.2 L (6.3-8.2) g/dL Albumin 2.8 L (3.5-5.0) g/dL Assessment and Plan Plan: Mental status changes, cause is unclear could be related to overdose of narcotic Leukocytosis, no clear source of infection, chest x-ray and urine analysis don't show any clear evidence of infection, patient received IV steroids in the EMS and in the emergency room, will check lactic acid level and monitor CBC Acute exacerbation of COPD with wheezing on presentation, he was started on IV Solu-Medrol in the emergency room, he is on inhaled bronchodilators Evidence of acute kidney injury was elevated BUN and creatinine patient was started on IV fluid, nephrology consultation was requested Abdominal ascites, status post paracentesis 06/30/2022 with 3.5 L of fluid removed, Evidence of liver cirrhosis Mild elevation in troponin level will monitor Underlying history of hypertension Underlying history of hypothyroidism Underlying history of depression with anxiety disorder Underlying history of vitamin D deficiency Underlying history of degenerative disc disease with chronic back pain maintained on narcotics for pain management Underlying history of gastroesophageal reflux disease At this time patient is admitted to telemetry floor Will check d-dimer check lactic acid recheck CBC and CMP Continue with IV fluid and recheck renal function Consult nephrology
[2022-07-14] MEDS: ACETAMINOPHEN TAB 500 MG TAB PO PRN ×3 (04:52→20:29)
[2022-07-14 07:07] LABS: Calcium 8.1 mg/dL (8.4-10.2); Total Protein 6.6 g/dL (6.3-8.2)
[2022-07-14 07:10] LABS: Basophils # (A) 0.1 k/uL (0-0.2); Basophils % (A) 1 %; Eosinophils # (A) 0.4 k/uL (0-0.7); Eosinophils % (A) 4 %; HCT 33.7 % (39.0-53.0); HGB 10.4 gm/dL (13.0-17.5); Hypochromasia Marked; Lymphocytes # (A) 1.7 k/uL (1.0-4.8); Lymphocytes % (A) 19 %; MCV 100.2 fL (80.0-100.0); Macrocytosis Slight; Mean Platelet Volume 11.8; Monocytes % (A) 11 %; Neutrophils # (A) 5.6 k/uL (1.3-7.7); Neutrophils % (A) 62 %; RBC 3.37 m/uL (4.30-5.90); RDW 14.4 % (11.5-15.5)
[2022-07-14 07:14] LABS: Platelet Count 58 k/uL (150-450)
--- NOTE | 2022-07-14 07:29 | PN ---
PROGRESS NOTE SUBJECTIVE: The patient was seen this morning for followup for acute kidney injury. The patient was started on dialysis. However, he has had an increase in his urine output and therefore, dialysis was held for about 2 days. The patient was dialyzed on Monday again due to increasing serum creatinine levels. His last dialysis treatment was on 07/11/2022. This morning, the patient is lying in bed. He is comfortable. No significant complaints. He is off pressors. Urine output at 70 to 100 mL an hour. OBJECTIVE: HEART: S1, S2. LUNGS: Bilateral breath sounds are heard. ABDOMEN: Soft, nontender. EXTREMITIES: Examination of lower extremities shows edema, 2+ bilaterally. VITAL SIGNS: Shows blood pressure 117/87, heart rate 77 per minute, the patient is afebrile. LABORATORY DATA: Labs show sodium 135, potassium 4.0, BUN 70, serum creatinine 4.47 today. ASSESSMENT: 1. Acute kidney injury, status post hemodialysis. Urine output has improved and increased significantly. Therefore, I will hold off on hemodialysis today and repeat labs in a.m. 2. Volume overload, currently maintained on IV Lasix. 3. Status post extubation for acute hypoxic respiratory failure. 4. Liver cirrhosis with portal hypertension and ascites, status post paracentesis. 5. Possible aspiration pneumonia, maintained on cefazolin. Blood cultures grew group B Streptococcus. 6. Atrial fibrillation. PLAN: Continue with IV Lasix. We will hold hemodialysis today and reassess tomorrow for need for renal replacement therapy. Continue to avoid nephrotoxic agents. MMODL / IJN: [id number] /
[2022-07-14] MEDS: IPRATROPIUM-ALBUTEROL 3 ML NEB INHALATION SCH ×4 (07:57→19:34)
--- NOTE | 2022-07-14 08:01 | P.PN ---
Subjective Progress Note Date: 07/13/22 Principal diagnosis: Bacteremia Patient is a 67 year old male presenting to the hospital in mental status changes and multiple falls did have a low-grade fever and elevated white count now with evidence of bacteremia. Patient is status post paracentesis with removal of 3 L of ascitic fluid completed on 06/30/2022, the patient did have left groin dialysis catheter placement and has been started on dialysis as of 07/05/2022, the patient has been successfully extubated On today's evaluation that is 07/13/2022, the patient continues to be afebrile, the patient is a breathing comfortably on nasal cannula oxygen , the patient denies having any chest pain, the patient did have some cough but not bringing up any sputum no vomiting no abdominal pain no diarrhea Objective - Vital Signs Vital signs: Vital Signs Temp 98.2 F 07/13/22 08:00 Pulse 77 07/13/22 08:00 Resp 18 07/13/22 08:00 BP 117/87 07/13/22 08:00 Pulse Ox 95 07/13/22 06:00 FiO2 30 07/11/22 20:00 Intake & Output 07/12/22 07/13/22 07/13/22 18:59 06:59 18:59 Intake Total 1286.0 316 23 Output Total 800 1055 120 Balance 486.0 -739 -97 Weight 111.6 kg Intake: IV 206.0 316 23 0.9 @ 10 120 230 20 Cefepime 1 gm In Sodium 50.0 50 Chloride 0.9% 50 ml @ 12. 5 mls/hr IVPB Q12HR [facility] Rx#:[id number] Pressure bag 36 36 3 Oral 1080 Output: Urine 800 1055 120 Other: Voiding Method Indwelling Catheter Indwelling Catheter Indwelling Catheter ABP, PAP, CO, CI - Last Documented Arterial Blood Pressure 103/47 - Exam GENERAL DESCRIPTION: An elderly male lying in bed in no distress RESPIRATORY SYSTEM: Unlabored breathing , decreased breath sounds at bases HEART: S1 S2 regular rate and rhythm , ABDOMEN: Soft , no tenderness EXTREMITIES: Mild edema feet - Labs CBC & Chem 7: 07/14/22 06:11 07/14/22 06:11 Labs: Abnormal Lab Results - Last 24 Hours (Table) 07/12/22 07/13/22 07/13/22 Range/Units 18:20 05:20 05:20 RBC 2.96 L (4.30-5.90) m/uL Hgb 9.5 L (13.0-17.5) gm/dL Hct 29.5 L (39.0-53.0) % Plt Count 36 L (150-450) k/uL Sodium 135 L (137-145) mmol/L BUN 70 H (9-20) mg/dL Creatinine 4.47 H (0.66-1.25) mg/dL POC Glucose (mg/dL) 163 H (70-110) mg/dL Calcium 8.0 L (8.4-10.2) mg/dL Total Bilirubin 1.9 H (0.2-1.3) mg/dL AST 130 H (17-59) U/L ALT 142 H (4-49) U/L Alkaline Phosphatase 157 H (38-126) U/L Total Protein 6.2 L (6.3-8.2) g/dL Albumin 2.8 L (3.5-5.0) g/dL Assessment and Plan (1) Bacteremia Current Visit: Yes Status: Acute Code(s): R78.81 - BACTEREMIA SNOMED Code(s): 7694802 Plan: 1patient with sepsis in this patient who did have a fever elevated white count elevated lactic acid now with evidence of gram-positive bacteremia with a veronica rce possible aspiration pneumonia as repeat x-ray did showed increasing density left lower lobe as the patient currently do not have any other obvious focus is abdominal soft on clinical examination no evidence of any joint swelling or cellulitis was noticed. 2blood cultures has been finalized as Streptococcus agalactiae repeat blood cultures have been negative so far 3-repeat CT with evidence of ascites and possible colitis in the left lower quadrant area, patient is status post paracentesis, white count was only 59 and cultures are so far negative 4- Patient with worsening respiratory status requiring intubation possible fluid overload plus minus a component of pneumonia questionable aspiration sputum culture has been obtained which are currently growing Rosanne more likely colonizer, 5-Patient white count has normalized however the patient has developed significant thrombocytopenia for which the patient was taken off the Zosyn , the patient platelet count is slowly improving and is up to 36,000 6- patient to continue with the cefepime and continue supportive care Time with Patient: Less than 30
[2022-07-14] MEDS: ATORVASTATIN 40 MG TAB PO SCH (09:43)
[2022-07-14] MEDS: LEVOTHYROXINE 88 MCG TAB PO SCH (09:43)
[2022-07-14] MEDS: NICOTINE 7MG/24HR PATCH TRANSDERM SCH (09:43)
[2022-07-14] MEDS: CEFEPIME 1 GM in SODIUM CHLORIDE 0.9% 50 ML IVPB SCH (09:44)
[2022-07-14] MEDS: FUROSEMIDE 10 MG/ML 10 ML VIAL IV SCH (09:44)
[2022-07-14] MEDS: METOPROLOL SUCCINATE (ER) 25 MG TAB.ER.24H PO SCH (09:44)
[2022-07-14] MEDS: PANTOPRAZOLE 40 MG/10 ML VIAL IVP SCH (09:45)
--- NOTE | 2022-07-14 10:11 | P.PN ---
Subjective Patient is seen for follow-up for acute kidney injury with severe ATN requiring hemodialysis. Urine output has increased and hemodialysis is currently on hold. Last treatment was on 07/11/2022 Patient has been extubated Patient is sleeping but arousable He is comfortable Urine output at 100-1 20 mL per hour and noted to be about 300/h for the last couple of hours after IV Lasix Serum creatinine at 4.5 from 4.47 yesterday. Objective - Vital Signs Vital signs: Vital Signs Temp 97.8 F 07/14/22 02:00 Pulse 70 07/14/22 08:09 Resp 13 07/14/22 02:00 BP 117/58 07/14/22 02:00 Pulse Ox 95 07/14/22 02:00 FiO2 30 07/11/22 20:00 Intake & Output 07/13/22 07/14/22 07/14/22 18:59 06:59 18:59 Intake Total 255 50 Output Total 795 970 Balance -540 -920 Weight 109.6 kg Intake: IV 255 50 0.9 @ 10 240 Cefepime 1 gm In Sodium 50 Chloride 0.9% 50 ml @ 12. 5 mls/hr IVPB Q12HR [facility] Rx#:[id number] Pressure bag 15 Output: Urine 795 970 Other: Voiding Method Indwelling Catheter Indwelling Catheter # Voids 1 ABP, PAP, CO, CI - Last Documented Arterial Blood Pressure 103/47 - Exam Patient is awake Examination of the heart S1 and S2 Examination of the lungs bilateral breath sounds are heard, decreased breath sounds at the bases Abdomen is soft obese nontender Examination lower extremities shows edema 2+ bilaterally - Labs CBC & Chem 7: 07/14/22 06:11 07/14/22 06:11 Labs: Abnormal Lab Results - Last 24 Hours (Table) 07/14/22 07/14/22 Range/Units 06:11 06:11 RBC 3.37 L (4.30-5.90) m/uL Hgb 10.4 L (13.0-17.5) gm/dL Hct 33.7 L (39.0-53.0) % MCV 100.2 H (80.0-100.0) fL Plt Count 58 L D (150-450) k/uL Sodium 135 L (137-145) mmol/L Carbon Dioxide 20 L (22-30) mmol/L BUN 84 H (9-20) mg/dL Creatinine 4.56 H (0.66-1.25) mg/dL Calcium 8.1 L (8.4-10.2) mg/dL Total Bilirubin 2.0 H (0.2-1.3) mg/dL AST 127 H (17-59) U/L ALT 135 H (4-49) U/L Alkaline Phosphatase 155 H (38-126) U/L Albumin 3.0 L (3.5-5.0) g/dL Assessment and Plan Assessment: 1. Acute kidney injury, severe ATN requiring hemodialysis. Urine output has increased. Hemodialysis currently on hold. Last treatment was on 07/11/2022 2. Possible aspiration pneumonia maintained on cefazolin. Blood culture grew group B Streptococcus 3. Volume overload, improving 4. Liver cirrhosis with ascites status post paracentesis 5. Acute hypoxic respiratory failure, patient was on the ventilator currently extubated. 6. Atrial fibrillation Plan: Continue with IV Lasix Avoid hypotension Repeat labs in a.m. and assess for need for dialysis tomorrow. Decreased metoprolol to 75 mg daily yesterday. Heart rate is better and staying at about 67-68 bpm
--- NOTE | 2022-07-14 10:38 | P.PN ---
Subjective Progress Note Date: 07/14/22 Principal diagnosis: Acute mental status changes. Pulmonary consultation dated 06/22/2022. 59-year-old male seen in the emergency department, on June 21. He apparently presented with mental status changes. In addition, he apparently was having multiple falls at home. The patient was seen and evaluated, and admitted to the hospital with a diagnosis of mental status changes, opiate dependence, COPD, acute kidney injury, and he went to the general medical floor. Today, a rapid response was called on this patient, and the patient was transferred down to the intensive care unit. Currently he is on 3 L nasal cannula. He is getting saline at 70 mL an hour, and dexmedetomidine at 1 mcg/kg/h. He apparently has a history of asthma, CVA, GERD, hyperlipidemia, hypertension, echo staxis, anxiety, and chronic tobacco dependence. Labs today include a white count of 21.9, hemoglobin 14.8, hematocrit 45.6, and a platelet count of 118,000. D- dimer is 2.12. PT is 15 with an INR 1.4. Blood gases, show pO2 of 117, pCO2 31, pH is 7.42. That was on 50% oxygen. Sodium 131, potassium 4.9, chlorides 100, CO2 22, BUN 52, and creatinine 1.28. Lactic acid was elevated at 5.9. I've asked the nurse to give the patient a liter of lactated Ringer's. Troponin was 0.237. Urine is got trace protein and trace glucose. Leukocyte esterase and nitrate were both negative. Drug screen was positive for opiates. Nasal swab testing was negative for coronavirus. Chest x-ray on admission was negative for an acute process. Head CT initially did not show anything acute. A repeat chest x-ray today showed increased interstitial densities in the left lower lobe. Progress note dated 06/23/2022. This is a 59-year-old male who was seen yesterday in consultation. He was initially seen on June 21 in the emergency room with mental status changes. The patient was transferred to the intensive care unit, because of worsening mental status, and some cardiovascular issues. Currently, the patient is on 3 L nasal cannula. He is getting lactated Ringer's at 75 mL an hour. He is on vancomycin and Unasyn. Was on Rocephin. He has been seen by infectious diseases and neurology. His CT angiogram was negative. Initially heparin was discontinued, but because of EKG changes, he'll be restarted. He is also on dexmedetomidine at 0.3 mcg/kg/h. I did speak to neurology about possible viral encephalitis, and we discussed the possibility of lumbar puncture, and acyclovir IV. White count 15.4, hemoglobin 13.2, hematocrit 41.5, and platelet count 225,000. Sodium, potassium, chloride, CO2, are all normal. BUN 66, and creatinine 0.89. Group B streptococci are in the blood cultures. Reevaluated today on 07/08/22, remains in the ICU intubated and mechanically ventilated. Patient is now on assist control rate of 24-500 FiO2 30% PEEP of 5 ABG showed a pO2 of 75 pCO2 43 pH of 7.42 patient remains on 30% FiO2. He is on TPN at 47 mL/h is also on Zosyn empirically. His abdomen remains distended and the patient continues to have ascites, I'm recommending interventional radiology to evaluate for possible paracentesis again on this patient. Patient has been off propofol since yesterday, he is arousable, opens his eyes, wiggling his toes, but remains very generally weak. We'll continue to hold propofol. In the meantime patient is not quite ready for weaning trials, but that is to be considered down the line. Patient remains on dialysis. Labs today showed relat ively normal electrolytes, BMI 57 creatinine 2.88. CBC is relatively unremarkable. Chest x-ray continues to show mild interstitial edema, and small left and right pleural effusion Reevaluated today on 07/09/22, remains in the ICU intubated mechanically ventilated patient is off propofol now for almost 2 days. Patient is arousable and follows very simple instructions like squeezing hands and wiggling toes however he is extremely generally weak. He is on assist control rate of 24th of volume 500 FiO2 30% PEEP of 5. ABG showed a pO2 of 78 pCO2 38 pH of 7.44 Patient is on small dose of norepinephrine at 0.02 mcg/kg/m is also on TPN at 47 mL/h. Chest x-ray continues to show improvement in his infiltrates/edema , patient remains on hemodialysis he had dialysis yesterday and 3.3 L were taken off. Patient may have a repeat paracentesis next Monday. WBC count today is 8.1 hemoglobin is 9.2. Basic metabolic profile is normal except for low potassium of 3.0 BUN is 55 creatinine 3.03. Today the patient would have a trial of pressure support and CPAP. Reevaluated today on 07/10/22, patient remains in the ICU intubated and mechanically ventilated, remains off propofol, remains on assist control rate of 24 to volume 500 FiO2 30% PEEP of 5, ABG showed a pO2 of 90 pCO2 of 37 pH of 7.47, CBC is relatively unremarkable. Basic metabolic profile is normal BUN is 75 creatinine 3.94, chest x-ray continues to show steady improvement in his interstitial edema and infiltrates. Clinically the patient seems to be more awake today, he remains off propofol, and I will go ahead and give the patient a trial of weaning if possible today. However after initiation of pressure support and CPAP, I was notified by the respiratory therapist that the patient has apnea episodes, and I recommended that we go on a pressure support of 10, IMV rate of 10, and continue same FiO2, continue same PEEP. The plan is to gradually go down the IMV rate by 2 every 2 hours. And hopefully we could avoid any further apnea episodes and may even consider extubating the patient if he tolerates this modality otherwise may keep him again on mechanical ventilation overnight with IMV and pressure support Progress note dated 07/11/2022. This is a 67-year-old male who was admitted back on June 21, for mental status changes. The patient was intubated on July 04, and remains on the mechanical ventilator. I saw him initially back on June 22 and . Currently, he is on the SIMV mode, rate 6, tidal volume 500, FiO2 30%, and PEEP of 5. Blood gases show pO2 of 88, pCO2 42, 7.4. The patient's getting saline at 10 mL an hour. Norepinephrine has been weaned off. Is getting Nepro at 10 mL an hour. He is also been weaned off. Microbiologic studies are negative. The patient remains on cefepime. The patient is apparently going to have a paracentesis performed by interventional radiology today. In addition, we'll get a repeat chest x-ray, and sometime later today, give the patient a spontaneous breathing trial. 6, 9.6, hematocrit 30.4, platelet count 31,000. PT is 12.9, with an INR 1.2. Sodium 133, potassium 4.1, chlorides 96, CO2 24, anion gap 13, BUN 92, and creatinine 4.67. AST is 152 with an ALT of 161. Blood cultures back from June 22 show evidence of group B streptococci. Chest x-ray from today shows relatively clear lung amado. Progress note dated 07/12/2022. 67-year-old male who was admitted on June 21, for mental status changes. He was intubated on July 04, for respiratory failure. Yesterday, July 11, the patient was extubated. He is currently on 2 L nasal cannula. His mental status is improving. He is getting a saline IV at 10 mL an hour. White count 7.5, hemoglobin 9.8, hematocrit 31.5, and platelet count 31,000. Sodium 137, potassium 4.3, chlorides 102, CO2 22, anion gap 13, BUN 67, and creatinine 3.73. Albumin is 2.8. Chest x-ray shows bilateral infiltrates, likely because the patient is not on positive pressure ventilation anymore. Progress note dated 07/13/2022. 67-year-old male was admitted back on June 21, for mental status changes. He was intubated for respiratory failure on July 04. On July 11, he was successfully extubated. He is currently on 2 L. Is getting saline at 20 mL an hour. The patient's mental status is much improved. Labs today include a white count of 8.6, hemoglobin 9.5, hematocrit 29.5, and a platelet count 36,000. Sodium 135, potassium, chloride, CO2, anion gap, all normal. BUN was 70 with a creatinine of 4.47. He is being followed by nephrology. Albumin is 2.8. Recent microbiologic data is negative. No chest x-ray today. The patient had an uneventful night, and in my opinion, could be transferred to the general medical or without telemetry. Progress note dated 07/13/2022. 67-year-old male who was admitted back on June 21 for mental status changes. He was intubated for respiratory failure on July 04. On July 11, he was successfully extubated. He is currently on room air. Saturations are 99%. He's not receiving any IV fluids. The patient can be transferred to a general medical floor, without telemetry. His mental status continues to improve. White count 9, hemoglobin 10.4, hematocrit 33.7, and platelet count 58,000. Sodium 135, potassium 4, chlorides 101, CO2 20, BUN 84, and creatinine 4.56. Albumin is 3. No recent chest x-ray. The patient currently is on cefepime, although, I don't know why. I've asked the nurse to call the infectious disease doctor, and inquire. Objective - Vital Signs Vital signs: Vital Signs Temp 97.8 F 07/14/22 02:00 Pulse 70 07/14/22 08:09 Resp 13 07/14/22 02:00 BP 117/58 07/14/22 02:00 Pulse Ox 95 07/14/22 02:00 FiO2 30 07/11/22 20:00 Intake & Output 07/13/22 07/14/22 07/14/22 18:59 06:59 18:59 Intake Total 255 50 Output Total 795 970 Balance -540 -920 Weight 109.6 kg 109.6 kg Intake: IV 255 50 0.9 @ 10 240 Cefepime 1 gm In Sodium 50 Chloride 0.9% 50 ml @ 12. 5 mls/hr IVPB Q12HR [facility] Rx#:[id number] Pressure bag 15 Output: Urine 795 970 Other: Voiding Method Indwelling Catheter Indwelling Catheter # Voids 1 ABP, PAP, CO, CI - Last Documented Arterial Blood Pressure 103/47 - Exam No acute distress, awake and alert, on room air. HEENT examination is grossly unremarkable. Neck supple. Full range of motion. No adenopathy thyromegaly or neck vein distention. Cardiovascular examination reveals regular rhythm rate. S1-S2 normal. No S3 or S4. No discernible murmur noted. Heart rate 70 bpm. Heart sounds are distant. Lungs reveal mostly clear breath sounds. Breath sounds are equal bilaterally. Scattered rhonchi are noted. No wheezes or crackles. Saturations are 95 % Abdomen soft bowel sounds are heard. No masses or tenderness. Extremities reveal some mild edema. No cyanosis or clubbing. Skin reveals some chronic venous stasis changes. Neurologic examination reveals the patient with improved mental status and alertness. - Labs CBC & Chem 7: 07/14/22 06:11 07/14/22 06:11 Labs: Abnormal Lab Results - Last 24 Hours (Table) 07/14/22 07/14/22 Range/Units 06:11 06:11 RBC 3.37 L (4.30-5.90) m/uL Hgb 10.4 L (13.0-17.5) gm/dL Hct 33.7 L (39.0-53.0) % MCV 100.2 H (80.0-100.0) fL Plt Count 58 L D (150-450) k/uL Sodium 135 L (137-145) mmol/L Carbon Dioxide 20 L (22-30) mmol/L BUN 84 H (9-20) mg/dL Creatinine 4.56 H (0.66-1.25) mg/dL Calcium 8.1 L (8.4-10.2) mg/dL Total Bilirubin 2.0 H (0.2-1.3) mg/dL AST 127 H (17-59) U/L ALT 135 H (4-49) U/L Alkaline Phosphatase 155 H (38-126) U/L Albumin 3.0 L (3.5-5.0) g/dL Assessment and Plan Assessment: Acute mental status changes, rapid respiratory rate, tachycardia, and elevated lactic acid, rule out either sepsis, or a primary neurologic event, status post intubation and mechanical ventilation on 07/04/2022. The patient was successfully extubated on July 11, 2022. Ascites, status post paracentesis abdominis. Acute kidney injury, requiring hemodialysis. History of CVA. History of hypertension. History of hyperlipidemia. History of asthma. History of gastroesophageal reflux disease. History of anxiety. History of chronic back. History of epistaxis. Plan: Plan dated 06/22/2022 The patient was transferred down to the intensive care. The patient is going for a computed tomography scan of the chest, to rule out pulmonary embolism. I've asked the nurses to switch his fluids to lactated Ringer's, and give him a bolus. In addition, I've asked the nurse to consult neurology for his mental status changes. Labs, x-rays, and medications are all reviewed. Prognosis is guarded. The patient is not very active at home. Plan dated 06/23/2022. The patient is currently on vancomycin and Unasyn. Blood cultures were positive for group B streptococci. I did discuss with neurology, and LP, and also the initiation of acyclovir. The patient appears to be a bit better today than he was yesterday. He still is on dexmedetomidine though. His vital signs seem reasonably stable. CTA was negative for pulmonary embolism. He had some EKG changes and will be started back on IV heparin. We will continue to follow make recommendations where appropriate. Prognosis is very guarded. Plan dated 07/11/2022. Norepinephrine has been weaned off. TPN has also been weaned off. The patient remains on the mechanical ventilator. He's not getting any sedatives. We will attempt to do a weaning trial on him, with possible extubation. Chest x-ray will be done in advance. Also, we will await interventional radiology performing the paracentesis abdominis. Labs, x-rays, and medications are reviewed. Microbiologic studies are negative. The patient does remain on cefepime. Overall prognosis remains very guarded. Plan dated 07/12/2022. The patient was successfully extubated yesterday on July 11. Currently, he's on 2 L. Labs, x-rays, and medications are reviewed. Is getting saline at 10 mL an hour. I did speak to him briefly as to whether or not he would want go back on life support. He said he will give this some thought. No additional recommendations are made. Prognosis is guarded. Plan dated 07/13/2022. The patient was successfully extubated on July 11. He's currently on 2 L. His mental status is much improved. He had an uneventful night. Labs, chest x- ray, and medications are reviewed. The patient could be transferred out to the general medical floor without telemetry. No additional recommendations are made. Overall prognosis remains guarded. Plan dated 07/14/2022. The patient continues to show improvement. The patient's mental status is better. He's not receiving any IV fluids. He is currently on room air with saturation of 99%. The patient could be transferred to general medical floor without telemetry. We have asked the infectious disease doctor to determine whether or not the patient continues to need cefepime. Labs, x-rays, and medications are reviewed. Prognosis is certainly guarded. Time with Patient: Less than 30
[2022-07-15] MEDS: FUROSEMIDE 10 MG/ML 10 ML VIAL IV SCH ×3 (00:04→20:26)
[2022-07-15] MEDS: PANTOPRAZOLE 40 MG/10 ML VIAL IVP SCH ×3 (00:04→20:25)
[2022-07-15] MEDS: AMOXIC-POT CLAV 500-125 MG 1 EACH TAB PO SCH ×3 (00:05→20:24)
[2022-07-15] MEDS: ACETAMINOPHEN TAB 500 MG TAB PO PRN ×4 (02:21→20:35)
[2022-07-15] MEDS: LEVOTHYROXINE 88 MCG TAB PO SCH (06:13)
[2022-07-15 07:39] LABS: Albumin 3.1 g/dL (3.5-5.0); Calcium 8.3 mg/dL (8.4-10.2); Potassium 3.2 mmol/L (3.5-5.1); Total Bilirubin 1.6 mg/dL (0.2-1.3); Total Protein 6.8 g/dL (6.3-8.2)
[2022-07-15 07:52] LABS: Basophils % (A) 0 %; Eosinophils # (A) 0.4 k/uL (0-0.7); Eosinophils % (A) 4 %; HCT 33.6 % (39.0-53.0); HGB 10.8 gm/dL (13.0-17.5); Hypochromasia Moderate; Lymphocytes # (A) 2.3 k/uL (1.0-4.8); Lymphocytes % (A) 23 %; MCH 31.6 pg (25.0-35.0); MCHC 32.1 g/dL (31.0-37.0); MCV 98.6 fL (80.0-100.0); Macrocytosis Slight; Mean Platelet Volume 11.7; Monocytes # (A) 0.8 k/uL (0-1.0); Monocytes % (A) 8 %; Neutrophils # (A) 5.9 k/uL (1.3-7.7); Neutrophils % (A) 60 %; Poikilocytosis Slight; RBC 3.41 m/uL (4.30-5.90); RDW 14.8 % (11.5-15.5); WBC 9.8 k/uL (3.8-10.6)
[2022-07-15] MEDS: IPRATROPIUM-ALBUTEROL 3 ML NEB INHALATION SCH ×4 (08:04→19:26)
[2022-07-15] MEDS: NICOTINE 7MG/24HR PATCH TRANSDERM SCH (09:32)
[2022-07-15] MEDS: METOPROLOL SUCCINATE (ER) 25 MG TAB.ER.24H PO SCH (09:34)
[2022-07-15] MEDS: ATORVASTATIN 40 MG TAB PO SCH (09:34)
--- NOTE | 2022-07-15 09:56 | P.PN ---
Subjective Progress Note Date: 07/15/22 Principal diagnosis: Acute mental status changes. Pulmonary consultation dated 06/22/2022. 59-year-old male seen in the emergency department, on June 21. He apparently presented with mental status changes. In addition, he apparently was having multiple falls at home. The patient was seen and evaluated, and admitted to the hospital with a diagnosis of mental status changes, opiate dependence, COPD, acute kidney injury, and he went to the general medical floor. Today, a rapid response was called on this patient, and the patient was transferred down to the intensive care unit. Currently he is on 3 L nasal cannula. He is getting saline at 70 mL an hour, and dexmedetomidine at 1 mcg/kg/h. He apparently has a history of asthma, CVA, GERD, hyperlipidemia, hypertension, echo staxis, anxiety, and chronic tobacco dependence. Labs today include a white count of 21.9, hemoglobin 14.8, hematocrit 45.6, and a platelet count of 118,000. D- dimer is 2.12. PT is 15 with an INR 1.4. Blood gases, show pO2 of 117, pCO2 31, pH is 7.42. That was on 50% oxygen. Sodium 131, potassium 4.9, chlorides 100, CO2 22, BUN 52, and creatinine 1.28. Lactic acid was elevated at 5.9. I've asked the nurse to give the patient a liter of lactated Ringer's. Troponin was 0.237. Urine is got trace protein and trace glucose. Leukocyte esterase and nitrate were both negative. Drug screen was positive for opiates. Nasal swab testing was negative for coronavirus. Chest x-ray on admission was negative for an acute process. Head CT initially did not show anything acute. A repeat chest x-ray today showed increased interstitial densities in the left lower lobe. Progress note dated 06/23/2022. This is a 59-year-old male who was seen yesterday in consultation. He was initially seen on June 21 in the emergency room with mental status changes. The patient was transferred to the intensive care unit, because of worsening mental status, and some cardiovascular issues. Currently, the patient is on 3 L nasal cannula. He is getting lactated Ringer's at 75 mL an hour. He is on vancomycin and Unasyn. Was on Rocephin. He has been seen by infectious diseases and neurology. His CT angiogram was negative. Initially heparin was discontinued, but because of EKG changes, he'll be restarted. He is also on dexmedetomidine at 0.3 mcg/kg/h. I did speak to neurology about possible viral encephalitis, and we discussed the possibility of lumbar puncture, and acyclovir IV. White count 15.4, hemoglobin 13.2, hematocrit 41.5, and platelet count 225,000. Sodium, potassium, chloride, CO2, are all normal. BUN 66, and creatinine 0.89. Group B streptococci are in the blood cultures. Reevaluated today on 07/08/22, remains in the ICU intubated and mechanically ventilated. Patient is now on assist control rate of 24-500 FiO2 30% PEEP of 5 ABG showed a pO2 of 75 pCO2 43 pH of 7.42 patient remains on 30% FiO2. He is on TPN at 47 mL/h is also on Zosyn empirically. His abdomen remains distended and the patient continues to have ascites, I'm recommending interventional radiology to evaluate for possible paracentesis again on this patient. Patient has been off propofol since yesterday, he is arousable, opens his eyes, wiggling his toes, but remains very generally weak. We'll continue to hold propofol. In the meantime patient is not quite ready for weaning trials, but that is to be considered down the line. Patient remains on dialysis. Labs today showed relat ively normal electrolytes, BMI 57 creatinine 2.88. CBC is relatively unremarkable. Chest x-ray continues to show mild interstitial edema, and small left and right pleural effusion Reevaluated today on 07/09/22, remains in the ICU intubated mechanically ventilated patient is off propofol now for almost 2 days. Patient is arousable and follows very simple instructions like squeezing hands and wiggling toes however he is extremely generally weak. He is on assist control rate of 24th of volume 500 FiO2 30% PEEP of 5. ABG showed a pO2 of 78 pCO2 38 pH of 7.44 Patient is on small dose of norepinephrine at 0.02 mcg/kg/m is also on TPN at 47 mL/h. Chest x-ray continues to show improvement in his infiltrates/edema , patient remains on hemodialysis he had dialysis yesterday and 3.3 L were taken off. Patient may have a repeat paracentesis next Monday. WBC count today is 8.1 hemoglobin is 9.2. Basic metabolic profile is normal except for low potassium of 3.0 BUN is 55 creatinine 3.03. Today the patient would have a trial of pressure support and CPAP. Reevaluated today on 07/10/22, patient remains in the ICU intubated and mechanically ventilated, remains off propofol, remains on assist control rate of 24 to volume 500 FiO2 30% PEEP of 5, ABG showed a pO2 of 90 pCO2 of 37 pH of 7.47, CBC is relatively unremarkable. Basic metabolic profile is normal BUN is 75 creatinine 3.94, chest x-ray continues to show steady improvement in his interstitial edema and infiltrates. Clinically the patient seems to be more awake today, he remains off propofol, and I will go ahead and give the patient a trial of weaning if possible today. However after initiation of pressure support and CPAP, I was notified by the respiratory therapist that the patient has apnea episodes, and I recommended that we go on a pressure support of 10, IMV rate of 10, and continue same FiO2, continue same PEEP. The plan is to gradually go down the IMV rate by 2 every 2 hours. And hopefully we could avoid any further apnea episodes and may even consider extubating the patient if he tolerates this modality otherwise may keep him again on mechanical ventilation overnight with IMV and pressure support Progress note dated 07/11/2022. This is a 67-year-old male who was admitted back on June 21, for mental status changes. The patient was intubated on July 04, and remains on the mechanical ventilator. I saw him initially back on June 22 and . Currently, he is on the SIMV mode, rate 6, tidal volume 500, FiO2 30%, and PEEP of 5. Blood gases show pO2 of 88, pCO2 42, 7.4. The patient's getting saline at 10 mL an hour. Norepinephrine has been weaned off. Is getting Nepro at 10 mL an hour. He is also been weaned off. Microbiologic studies are negative. The patient remains on cefepime. The patient is apparently going to have a paracentesis performed by interventional radiology today. In addition, we'll get a repeat chest x-ray, and sometime later today, give the patient a spontaneous breathing trial. 6, 9.6, hematocrit 30.4, platelet count 31,000. PT is 12.9, with an INR 1.2. Sodium 133, potassium 4.1, chlorides 96, CO2 24, anion gap 13, BUN 92, and creatinine 4.67. AST is 152 with an ALT of 161. Blood cultures back from June 22 show evidence of group B streptococci. Chest x-ray from today shows relatively clear lung amado. Progress note dated 07/12/2022. 67-year-old male who was admitted on June 21, for mental status changes. He was intubated on July 04, for respiratory failure. Yesterday, July 11, the patient was extubated. He is currently on 2 L nasal cannula. His mental status is improving. He is getting a saline IV at 10 mL an hour. White count 7.5, hemoglobin 9.8, hematocrit 31.5, and platelet count 31,000. Sodium 137, potassium 4.3, chlorides 102, CO2 22, anion gap 13, BUN 67, and creatinine 3.73. Albumin is 2.8. Chest x-ray shows bilateral infiltrates, likely because the patient is not on positive pressure ventilation anymore. Progress note dated 07/13/2022. 67-year-old male was admitted back on June 21, for mental status changes. He was intubated for respiratory failure on July 04. On July 11, he was successfully extubated. He is currently on 2 L. Is getting saline at 20 mL an hour. The patient's mental status is much improved. Labs today include a white count of 8.6, hemoglobin 9.5, hematocrit 29.5, and a platelet count 36,000. Sodium 135, potassium, chloride, CO2, anion gap, all normal. BUN was 70 with a creatinine of 4.47. He is being followed by nephrology. Albumin is 2.8. Recent microbiologic data is negative. No chest x-ray today. The patient had an uneventful night, and in my opinion, could be transferred to the general medical or without telemetry. Progress note dated 07/13/2022. 67-year-old male who was admitted back on June 21 for mental status changes. He was intubated for respiratory failure on July 04. On July 11, he was successfully extubated. He is currently on room air. Saturations are 99%. He's not receiving any IV fluids. The patient can be transferred to a general medical floor, without telemetry. His mental status continues to improve. White count 9, hemoglobin 10.4, hematocrit 33.7, and platelet count 58,000. Sodium 135, potassium 4, chlorides 101, CO2 20, BUN 84, and creatinine 4.56. Albumin is 3. No recent chest x-ray. The patient currently is on cefepime, although, I don't know why. I've asked the nurse to call the infectious disease doctor, and inquire. Progress note dated 07/15/2022. 67-year-old male who was admitted back on June 21 for mental status changes, and respiratory failure. The patient was intubated on July 04, and successfully extubated on July 11. He is currently in the intensive care unit, room 254. He's currently on room air. At nighttime, he does sleep with 2 L. He's not receiving any IV fluids. The patient could be transferred to the general medical floor, without telemetry. Infectious disease doctor discontinued cefepime, and place the patient on Augmentin. White count 9.8, he will been 10.8, hematocrit 33.6, with a platelet count that is currently pending. Sodium 137, potassium 3.2, chlorides 99, CO2 22, anion gap 16, BUN 88, with a creatinine of 4.89. This reflects a worsening pattern of renal failure. No new chest x-ray today, or new microbiologic data. Objective - Vital Signs Vital signs: Vital Signs Temp 98 F 07/15/22 01:39 Pulse 75 07/15/22 08:14 Resp 14 07/15/22 01:39 BP 107/62 07/15/22 01:39 Pulse Ox 100 07/15/22 01:39 FiO2 30 07/11/22 20:00 Intake & Output 07/14/22 07/15/22 07/15/22 18:59 06:59 18:59 Intake Total 170 480 Output Total 650 450 Balance -480 30 Weight 108.7 kg Intake: IV 170 0.9 @ 10 120 Cefepime 1 gm In Sodium 50 Chloride 0.9% 50 ml @ 12. 5 mls/hr IVPB Q12HR [facility] Rx#:[id number] Oral 480 Output: Urine 650 450 Other: Voiding Method Indwelling Catheter Indwelling Catheter ABP, PAP, CO, CI - Last Documented Arterial Blood Pressure 103/47 - Exam No acute distress, awake and alert, on room air. HEENT examination is grossly unremarkable. Neck supple. Full range of motion. No adenopathy thyromegaly or neck vein dist ention. Cardiovascular examination reveals regular rhythm rate. S1-S2 normal. No S3 or S4. No discernible murmur noted. Heart rate 75 bpm. Heart sounds are distant. Lungs reveal mostly clear breath sounds. Breath sounds are equal bilaterally. Scattered rhonchi are noted. No wheezes or crackles. Saturations are 98 % Abdomen soft bowel sounds are heard. No masses or tenderness. Extremities reveal some mild edema. No cyanosis or clubbing. Skin reveals some chronic venous stasis changes. Neurologic examination reveals the patient with improved mental status and alertness. - Labs CBC & Chem 7: 07/15/22 07:13 07/15/22 07:13 Labs: Abnormal Lab Results - Last 24 Hours (Table) 07/15/22 07/15/22 Range/Units 07:13 07:13 RBC 3.41 L (4.30-5.90) m/uL Hgb 10.8 L (13.0-17.5) gm/dL Hct 33.6 L (39.0-53.0) % Potassium 3.2 L (3.5-5.1) mmol/L BUN 88 H (9-20) mg/dL Creatinine 4.89 H (0.66-1.25) mg/dL Calcium 8.3 L (8.4-10.2) mg/dL Total Bilirubin 1.6 H (0.2-1.3) mg/dL AST 118 H (17-59) U/L ALT 122 H (4-49) U/L Alkaline Phosphatase 167 H (38-126) U/L Albumin 3.1 L (3.5-5.0) g/dL Assessment and Plan Assessment: Acute mental status changes, rapid respiratory rate, tachycardia, and elevated lactic acid, rule out either sepsis, or a primary neurologic event, status post intubation and mechanical ventilation on 07/04/2022. The patient was successfully extubated on July 11, 2022. Ascites, status post paracentesis abdominis. Acute kidney injury, requiring hemodialysis. History of CVA. History of hypertension. History of hyperlipidemia. History of asthma. History of gastroesophageal reflux disease. History of anxiety. History of chronic back. History of epistaxis. Plan: Plan dated 06/22/2022 The patient was transferred down to the intensive care. The patient is going for a computed tomography scan of the chest, to rule out pulmonary embolism. I've asked the nurses to switch his fluids to lactated Ringer's, and give him a bolus. In addition, I've asked the nurse to consult neurology for his mental status changes. Labs, x-rays, and medications are all reviewed. Prognosis is guarded. The patient is not very active at home. Plan dated 06/23/2022. The patient is currently on vancomycin and Unasyn. Blood cultures were positive for group B streptococci. I did discuss with neurology, and LP, and also the initiation of acyclovir. The patient appears to be a bit better today than he was yesterday. He still is on dexmedetomidine though. His vital signs seem reasonably stable. CTA was negative for pulmonary embolism. He had some EKG changes and will be started back on IV heparin. We will continue to follow make recommendations where appropriate. Prognosis is very guarded. Plan dated 07/11/2022. Norepinephrine has been weaned off. TPN has also been weaned off. The patient remains on the mechanical ventilator. He's not getting any sedatives. We will attempt to do a weaning trial on him, with possible extubation. Chest x-ray will be done in advance. Also, we will await interventional radiology perf orming the paracentesis abdominis. Labs, x-rays, and medications are reviewed. Microbiologic studies are negative. The patient does remain on cefepime. Overall prognosis remains very guarded. Plan dated 07/12/2022. The patient was successfully extubated yesterday on July 11. Currently, he's on 2 L. Labs, x-rays, and medications are reviewed. Is getting saline at 10 mL an hour. I did speak to him briefly as to whether or not he would want go back on life support. He said he will give this some thought. No additional recommendations are made. Prognosis is guarded. Plan dated 07/13/2022. The patient was successfully extubated on July 11. He's currently on 2 L. His mental status is much improved. He had an uneventful night. Labs, chest x- ray, and medications are reviewed. The patient could be transferred out to the general medical floor without telemetry. No additional recommendations are made. Overall prognosis remains guarded. Plan dated 07/14/2022. The patient continues to show improvement. The patient's mental status is better. He's not receiving any IV fluids. He is currently on room air with saturation of 99%. The patient could be transferred to general medical floor without telemetry. We have asked the infectious disease doctor to determine whe ther or not the patient continues to need cefepime. Labs, x-rays, and medications are reviewed. Prognosis is certainly guarded. Plan dated 07/15/2022. Patient continues to show gradual improvement. He remains on room air. He does take oxygen at 2 L, during the nighttime hours. Infectious disease doctor discontinue cefepime, and place the patient on Augmentin. Microbiologic data are negative. Not sure what is being treated. Labs, x-rays, and medications are reviewed. Overall prognosis remains guarded. We will continue to follow make recommendations along the way. The patient could be transferred to the general medical floor, without telemetry. Time with Patient: Less than 30
--- NOTE | 2022-07-15 10:33 | P.PN ---
Subjective Patient is seen for follow-up for acute kidney injury with severe ATN requiring hemodialysis. Urine output has increased and hemodialysis is currently on hold. Last treatment was on 07/11/2022 Patient has been extubated Patient is awake, comfortable Urine output at 100-1 20 mL per hour Serum creatinine at 4 0.8 from 4.5 yesterday. Hemodialysis remains on hold Objective - Vital Signs Vital signs: Vital Signs Temp 98 F 07/15/22 01:39 Pulse 75 07/15/22 08:14 Resp 14 07/15/22 01:39 BP 107/62 07/15/22 01:39 Pulse Ox 100 07/15/22 01:39 FiO2 30 07/11/22 20:00 Intake & Output 07/14/22 07/15/22 07/15/22 18:59 06:59 18:59 Intake Total 170 480 Output Total 650 450 Balance -480 30 Weight 108.7 kg Intake: IV 170 0.9 @ 10 120 Cefepime 1 gm In Sodium 50 Chloride 0.9% 50 ml @ 12. 5 mls/hr IVPB Q12HR [facility] Rx#:[id number] Oral 480 Output: Urine 650 450 Other: Voiding Method Indwelling Catheter Indwelling Catheter ABP, PAP, CO, CI - Last Documented Arterial Blood Pressure 103/47 - Exam Patient is awake Examination of the heart S1 and S2 Examination of the lungs bilateral breath sounds are heard, decreased breath sounds at the bases Abdomen is soft obese nontender Examination lower extremities shows edema 2+ bilaterally, improving HEALTH EDUCATION AIDE exam shows patient is moving all 4 extremities - Labs CBC & Chem 7: 07/15/22 07:13 07/15/22 07:13 Labs: Abnormal Lab Results - Last 24 Hours (Table) 07/15/22 07/15/22 Range/Units 07:13 07:13 RBC 3.41 L (4.30-5.90) m/uL Hgb 10.8 L (13.0-17.5) gm/dL Hct 33.6 L (39.0-53.0) % Potassium 3.2 L (3.5-5.1) mmol/L BUN 88 H (9-20) mg/dL Creatinine 4.89 H (0.66-1.25) mg/dL Calcium 8.3 L (8.4-10.2) mg/dL Total Bilirubin 1.6 H (0.2-1.3) mg/dL AST 118 H (17-59) U/L ALT 122 H (4-49) U/L Alkaline Phosphatase 167 H (38-126) U/L Albumin 3.1 L (3.5-5.0) g/dL Assessment and Plan Assessment: 1. Acute kidney injury, severe ATN requiring hemodialysis. Urine output has increased. Hemodialysis currently on hold. Last treatment was on 07/11/2022 2. Possible aspiration pneumonia maintained on cefazolin. Blood culture grew group B Streptococcus 3. Volume overload, improving 4. Liver cirrhosis with ascites status post paracentesis 5. Acute hypoxic respiratory failure, patient was on the ventilator currently e xtubated. 6. Atrial fibrillation Plan: Continue with IV Lasix Consider decreasing dose tomorrow Avoid hypotension Repeat labs in a.m. and assess for need for dialysis tomorrow.
--- NOTE | 2022-07-15 10:43 | P.CNOR ---
History of Present Illness - [facility] Consult date: 07/15/22 Requesting physician: Carlos Pop Consult reason: other (right wrist pain) History of present illness: Patient is a 67-year-old male who presented to [facility] on 06/21/2022 status post multiple falls at home. According to the patient's before coming to the hospital, patient had fallen twice at home and on the second time patient's was not able to wake him up and get him off the floor. So EMS did bring patient into the emergency department. Over the past 3 weeks medicine, nephrology, pulmonology, nephrology, cardiology have been following the patient. Orthopedics has been consulted for right wrist pain. Patient was seen at bedside this morning lying semirecumbent position in the ICU. Patient was responding appropriately to questions throughout the encounter. Patient states his right wrist pain began a few weeks ago and he mentions that it began after he fell at home. Patient states that most of the pain is in his right wrist and does extend proximally into his forearm. Patient denies any other trauma/injuries. Patient says he is unable to flex/extend his right wrist without being in a lot of pain. X-ray of the right wrist does not show acute fracture in wrist. There is narrowing of radial scaphoid joint space. Possible fracture of scaphoid. Patient denies chest pain, fever, shortness of breath, nausea, vomiting, change in vision, loss of bowel/bladder control. Patient denies any numbness/tingling in the digits of the right hand. Patient denies any previous orthopedic surgical history. Past Medical History Past Medical History: Asthma, Cancer, CVA/TIA, GERD/Reflux, Hyperlipidemia, Hypertension, Thyroid Disorder Additional Past Medical History / Comment(s): Hx. of Brain Aneurysm, SKIN CANCER, CHRONIC NOSEBLEEDS History of Any Multi-Drug Resistant Organisms: None Reported Past Surgical History: Cholecystectomy, Orthopedic Surgery, Tonsillectomy Additional Past Surgical History / Comment(s): Knee surgery, Endovascular coiling for Brain Aneurysm.LESION REMOVED , SUSPENSION MICROLARYNGOSCOPY Past Anesthesia/Blood Transfusion Reactions: Previous Problems w/ Anesthesia Additional Past Anesthesia/Blood Transfusion Reaction / Comm: Woke up during surgery. Smoking Status: Current every day smoker - Past Family History Mother Family Medical History: Cancer Additional Family Medical History / Comment(s): uterine cancer Father Family Medical History: Cancer, CVA/TIA Additional Family Medical History / Comment(s): skin cancer Sister(s) Family Medical History: Cancer Additional Family Medical History / Comment(s): skin cancer Medications and Allergies Home Medications Medication Instructions Recorded Confirmed Type Baclofen [Lioresal] 10 mg PO HS 02/26/19 06/21/22 History Ipratropium/Albuterol Sulfate 1 puff INHALATION RT-QID 02/26/19 06/21/22 History [Combivent Respimat Inhaler] Metoprolol Succinate [Toprol XL] 50 mg PO QAM 02/26/19 06/21/22 History Omeprazole [PriLOSEC] 20 mg PO AC-BRKFST 02/26/19 06/21/22 History HYDROcodone/APAP 10-325MG [[place] 1 tab PO Q6HR PRN 09/07/21 06/21/22 History 10-325] Levothyroxine Sodium [Synthroid] 88 mcg PO QAM 09/07/21 06/21/22 History Morphine Sulfate ER [Ms Contin] 15 mg PO HS 09/07/21 06/21/22 History Zolpidem Tartrate [Ambien Cr] 12.5 mg PO HS PRN 09/07/21 06/21/22 History lisinopriL [Prinivil] 20 mg PO QAM 09/07/21 06/21/22 History Albuterol Sulfate [Proventil Hfa] 1 - 2 puff INHALATION Q6HR PRN 06/21/22 06/21/22 History Aspirin EC [Ecotrin Low Dose] 81 mg PO DAILY 06/21/22 06/21/22 History Ergocalciferol [Vitamin D2 (1250 1,250 mcg PO Q7D 06/21/22 06/21/22 History Mcg = 92743 Iu)] Fluticasone Nasal [place] [Flonase 1 spray EA NOSTRIL DAILY 06/21/22 06/21/22 History Nasal [place]] Furosemide [Lasix] 20 mg PO DAILY 06/21/22 06/21/22 History Mirtazapine [Remeron] 15 mg PO HS 06/21/22 06/21/22 History hydrOXYzine HCL [Atarax] 10 mg PO HS 06/21/22 06/21/22 History traZODone HCL [Desyrel] 100 mg PO HS 06/21/22 06/21/22 History Allergies Allergy/AdvReac Type Severity Reaction Status Date / Time No Known Allergies Allergy Verified 06/21/22 11:22 Physical Examination Negative for any open fractures, significant erythema/ecchymosis. Negative for any open wounds to the upper extremities. Sensation is equal, symmetric, bilaterally intact throughout the upper extremities. Patient does have moderate to severe TTP along the volar and dorsal aspect of right wrist and over scaphoid. Patient does have TTP extending extending proximally to right forearm. Nontender to palpation throughout rest of exam. Patient does have significantly limited range of motion of the right wrist due to pain. Patient is able to wiggle fingers in the right hand. Patient has full range of motion in the right elbow in flexion/extension and in the right shoulder in forward elevation. Patient has full range of motion in all other major motor groups. [employer] strength 3/5 in the right hand. Right wrist motor exam unable to be performed due to pain. 4/5 in resisted elbow flexion/extension in RUE. 5/5 in al l other major motor groups. cap refill < 3 seconds in digits of UE. radial pulses intact bilaterally. Results - Labs Labs: Abnormal Lab Results - Last 24 Hours (Table) 07/15/22 07/15/22 Range/Units 07:13 07:13 RBC 3.41 L (4.30-5.90) m/uL Hgb 10.8 L (13.0-17.5) gm/dL Hct 33.6 L (39.0-53.0) % Potassium 3.2 L (3.5-5.1) mmol/L BUN 88 H (9-20) mg/dL Creatinine 4.89 H (0.66-1.25) mg/dL Calcium 8.3 L (8.4-10.2) mg/dL Total Bilirubin 1.6 H (0.2-1.3) mg/dL AST 118 H (17-59) U/L ALT 122 H (4-49) U/L Alkaline Phosphatase 167 H (38-126) U/L Albumin 3.1 L (3.5-5.0) g/dL H & H 06/21/22 06/22/22 06/22/22 Range/Units 11:26 02:08 09:06 Hgb 14.4 14.5 14.8 (13.0-17.5) gm/dL Hct 43.7 45.6 45.6 (39.0-53.0) % 06/23/22 06/24/22 06/24/22 Range/Units 05:46 00:47 06:56 Hgb 13.2 14.0 12.7 L (13.0-17.5) gm/dL Hct 41.5 42.6 40.5 (39.0-53.0) % 06/25/22 06/26/22 06/27/22 Range/Units 07:08 06:51 06:11 Hgb 11.9 L 12.9 L 13.1 (13.0-17.5) gm/dL Hct 36.7 L 40.0 41.5 (39.0-53.0) % 06/28/22 06/29/22 06/30/22 Range/Units 05:40 06:08 06:21 Hgb 12.4 L 11.6 L 12.1 L (13.0-17.5) gm/dL Hct 40.4 36.6 L 37.1 L (39.0-53.0) % 07/01/22 07/02/22 07/03/22 Range/Units 05:54 07:12 10:28 Hgb 11.1 L 10.8 L 10.3 L (13.0-17.5) gm/dL Hct 33.8 L 33.8 L 32.5 L (39.0-53.0) % 07/04/22 07/05/22 07/06/22 Range/Units 05:45 04:12 03:35 Hgb 9.7 L 11.0 L 10.5 L (13.0-17.5) gm/dL Hct 31.4 L 35.5 L 32.6 L (39.0-53.0) % 07/08/22 07/09/22 07/10/22 Range/Units 04:41 04:20 04:16 Hgb 9.2 L 9.2 L 9.4 L (13.0-17.5) gm/dL Hct 28.8 L 28.7 L 30.2 L (39.0-53.0) % 07/11/22 07/12/22 07/13/22 Range/Units 04:30 03:40 05:20 Hgb 9.6 L 9.8 L 9.5 L (13.0-17.5) gm/dL Hct 30.4 L 31.5 L 29.5 L (39.0-53.0) % 07/14/22 07/15/22 Range/Units 06:11 07:13 Hgb 10.4 L 10.8 L (13.0-17.5) gm/dL Hct 33.7 L 33.6 L (39.0-53.0) % Coagulation 06/21/22 06/22/22 06/23/22 Range/Units 11:26 09:06 09:15 INR 1.4 H 1.4 H 1.3 H (<1.2) 06/24/22 07/10/22 07/11/22 Range/Units 06:56 13:20 04:30 INR 1.4 H 1.2 H 1.2 H (<1.2) Result Diagrams: 07/15/22 07:13 07/15/22 07:13 Assessment and Plan Assessment: 1. osteoarthritis, right wrist 2. wrist pain, right Plan: 1. osteoarthritis, right wrist - Patient stable at bedside this morning. I did review findings of intitial xray of right wrist with my attending, Dr. Jerry. At this time we are not recommending any emergent/urgent orthopedic surgical intervention. Scaphoid series xray of right wrist has been ordered for further evaluation. We will await scaphoid series films before proceeding with any potential orthopedic intervention 2. Appreciate medical management 3. Pain management - tylenol 4. DVT ppx - heparin 5. GI ppx - Tums; Protonix 6. PT/OT recs 7. Appreciate consult Time with Patient: Less than 30
--- NOTE | 2022-07-15 12:39 | XR ---
EXAMINATION TYPE: XR wrist complete RT DATE OF EXAM: 07/15/2022 COMPARISON: 07/13/2022 HISTORY: Right wrist pain TECHNIQUE: 4 view right wrist FINDINGS: There is some mild prominence of the scapholunate space. This measures 0.4 cm on the curren t exam. Joint space narrowing between the carpal radial junction is evident. Carpal joint spaces are narrowed. Previously suspected lucency within the scaphoid on lateral projection is not reproduced on this exam ination. If there is clinical concern for scaphoid fracture, consider MRI. This could also evaluate t he scapholunate space. No acute fractures are evident. Soft tissues appear unremarkable. IMPRESSION: 1. No acute osseous abnormality identified on current exam. See above discussion.
[2022-07-15 12:43] LABS: Mean Platelet Volume 11.2
[2022-07-15 12:44] LABS: INR 1.6 (<1.2); Prothrombin Time 16.5 sec (9.0-12.0)
[2022-07-15 12:47] LABS: Platelet Count 70 k/uL (150-450)
[2022-07-15 12:59] LABS: Platelet Count 64 k/uL (150-450)
--- NOTE | 2022-07-15 13:55 | P.PN ---
Subjective Progress Note Date: 07/14/22 Ag Souza, is a 67-year-old male who presented to [facility] emergency room after having a multiple falls at home, has significant mental status changes with somnolence and poor responsiveness, history per his , over the last 24 hours patient has been not feeling well, he fell twice at home, on the second time she was not able to wake him up and get him up from the floor through the bed, she called EMS and he was brought into emergency room. He was evaluated in the emergency room vital examination on presentation revealed a temperature of 97.3 pulse 82 respiration 16 blood pressure 121/67 pulse ox 97% on room air Laboratory data revealed a white blood count of 23.2 hemoglobin 14.4 platelet count 98,000 sodium 129 potassium 4.9 chloride 96 CO2 25 BUN 51 creatinine 2.24 troponin level was 0.02 COVID-19 testing was negative Testing in the emergency room revealed chest x-ray done in the emergency room did not reveal significant abnormality. Patient has a known history of degenerative disc disease with chronic pain maintained on narcotics for pain management he was given Narcan in the emergency room which led to improvement in his mental status. Patient was admitted to medical floor for further evaluation and treatment. On 06/22/2022 patient was seen and examined on the telemetry floor he is still somnolent, agitated, pulling on his IV line, he was started through the night on IV Ativan, vital examination reveals a temperature of 98.4 pulse 132 respiration 24 blood pressure 172/91 pulse ox 96% on 2 L nasal cannula, white blood count is 21.9 hemoglobin 14.8 platelet count 118 d-dimer was elevated at 2.12 at this time will start patient on IV heparin high-intensity for possible pulmonary embolism, his kidney function is still elevated, will defer computed tomography scan this time, he is not cooperative to proceed with VQ scan, will continue with IV fluid, nephrology consultation and infectious disease consultation were requested. On 06/23/2022 patient was seen and examined in the ICU he is more alert and oriented today vital exam reveals a temperature of 98.2 pulse 86 respiration 23 blood pressure 138/79 pulse ox 93% on 2 L nasal cannula white blood count is down to 15.4 hemoglobin 13.2 platelet count 125 kidney function improved with BUN at 66 and creatinine at 0.89 kidney ultrasound was done and revealed no evidence of renal stones or obstruction, CT angiogram of the chest was done and there was no evidence of pulmonary embolism, blood culture were positive for Streptococcus group b , patient is currently maintained on IV Unasyn, IV vanc omycin and IV acyclovir, cardiology, pulmonary, nephrology, neurology and infectious disease are following On 06/24/2022 patient was seen and examined in the ICU he is more alert and oriented today kidney ultrasound was done and revealed no evidence of renal stones or obstruction, CT angiogram of the chest was done and there was no evidence of pulmonary embolism, blood culture were positive for Streptococcus group b , patient is currently maintained on IV Unasyn, IV vancomycin and IV acyclovir, cardiology, pulmonary, nephrology, neurology and infectious disease are following. Patient had a maroon colored stools through the night, GI consultation is not available this week, surgical consultation was requested for evaluation for possible GI bleed On 06/25/2022 patient was seen and examined in the ICU, he is more alert and responsive today, there is no fever or chills no headache or dizziness no chest pain no shortness of breath no cough no nausea or vomiting no abdominal pain no diarrhea and no urinary symptoms. IV heparin has been discontinued, at this time will start subcu Lovenox for DVT prophylaxis, he remains on IV antibiotics cefazolin 2 g IV every 8 hours. On 06/26/2022 patient was seen and examined in the ICU he is alert and oriented 3 in no apparent distress he is complaining of abdominal discomfort otherwise he denies any complaint at this time there is no fever or chills no headache or dizziness no chest pain no shortness of breath no cough no nausea or vomiting no diarrhea no blood in the stools no burning with urination no frequency or urgency and no hematuria. On 06/27/2022 patient was seen and examined on in the ICU he is alert and oriented 3, he is feeling better, he had multiple bowel movements and his abdominal pain has improved, he is still complaining of difficulty sleeping at night otherwise he denies any complaints there is no fever or chills no headache or dizziness no chest pain no shortness of breath no cough no nausea or vomiting no abdominal pain no diarrhea no blood in the stools no burning with urination no frequency or urgency and no hematuria. On 06/28/2022 patient was seen and examined on the medical floor he is alert and oriented 3 in no distress there is no fever or chills no headache or dizziness no chest pain no shortness of breath no cough no nausea or vomiting no abdominal pain no diarrhea, no blood in the stools no burning with urination no frequency or urgency and no hematuria patient has generalized weakness he is improving gradually will continue to follow closely physical therapy is following On 06/29/2022 patient was seen and examined on the medical floor he is alert and oriented 3 in no apparent distress there is no fever or chills no headache or dizziness no chest pain no shortness of breath no cough no nausea or vomiting he is complaining of abdominal discomfort with abdominal distention no diarrhea or constipation no blood in the stools no burning with urination no frequency or urgency and no hematuria. At this time patient is scheduled for computed tomography scan of the abdomen and pelvis will continue to monitor closely. On 06/30/2022 patient was seen and examined on the telemetry floor he is alert and oriented 3 in no apparent distress he is complaining now of severe neck gina n and back pain and requesting [place], patient underwent paracentesis today, 3.5 L of fluid were removed, otherwise patient denies any other symptoms there is no fever or chills no headache or dizziness no chest pain no shortness of breath no cough no nausea or vomiting no abdominal pain no diarrhea and no urinary symptoms On 07/01/2022 patient was seen and examined on the medical floor he is alert and oriented 3 in no apparent distress he is complaining of abdominal discomfort and distention otherwise he denies any complaints at this time there is no fever or chills no headache or dizziness no chest pain no shortness of breath no cough no nausea or vomiting no diarrhea no blood in the stools no burning with urination no frequency or urgency and no hematuria On 07/02/2022 patient was seen and examined on the medical floor he is alert and oriented 3 in no apparent distress he is complaining of abdominal discomfort and distention, he is complaining of bilateral hip pain, he received 1 dose of lactulose and had multiple episodes of diarrhea afterwards lactulose was discontinued, otherwise he denies any complaints at this time there is no fever or chills no headache or dizziness no chest pain no shortness of breath no cough no nausea or vomiting no blood in the stools no burning with urination no frequency or urgency and no hematuria. On 07/03/2022 patient was seen and examined the medical he is alert and oriented he is complaining of abdominal distention was discomfort and shortness of breath otherwise he denies any complaints there is no fever or chills no headache or dizziness no chest pain no cough no nausea or vomiting no urinary symptoms On 07/04/2022 patient was seen and examined in the ICU he is more lethargic today he was started on BiPAP and transferred to ICU today ammonia level is elevated at 38 there is no fever or chills no headache or dizziness no chest pain patient has significant distention in the abdomen, no nausea or vomiting no diarrhea, Russo catheter is in. On 07/05/2022 patient was seen and examined in the ICU at this time he is intubated sedated maintained on mechanical ventilation, currently he is on assist control rate of 20 to FiO2 50% and PEEP of 5 he had a dialysis catheter placed and a session of hemodialysis is scheduled for this afternoon, patient is maintained on norepinephrine drip, white blood count is up to 25,000 hemoglobin is 11 BUN is up to 78 and creatinine 2.47 patient is maintained on IV Zosyn infectious disease are following, prognosis is guarded will continue with aggressive management at this time and sister are at the bedside and are aware of patient's condition. On 07/06/2022 patient was seen and examined in the ICU he is intubated sedated maintained on mechanical ventilation assist control rate 22 FiO2 50% with PEEP of 5 he was started on hemodialysis yesterday he is still IV antibiotic and IV fluid and norepinephrine temperature of 97.7 pulse 96 respiration 24 blood pressure 128/48 sodium 135 potassium 4.4 chloride 101 CO2 22 BUN 78 creatinine 3.19 white blood count 17.4 hemoglobin 10.5 platelet count 167 On 07/07/2022 patient was seen and examined in the ICU he is intubated sedated maintained on mechanical ventilation, he is maintained on assist control FiO2 40% feet 058 arterial blood gas is improving is maintained on TPN he is maintained on IV antibiotics he is maintained on hemodialysis vital exam reveals a temperature of 97.2 pulse 75 respiration 24 blood pressure 128/48 pulse ox 100% BUN is 63 creatinine 2.86 On 07/08/2022 patient was seen and examined in the ICU he is intubated sedated maintained on mechanical ventilation he is maintained on norepinephrine for pressure support, he is maintained on IV Zosyn, he was started on hemodialysis, clinically patient is stable. His vital exam reveals a temperature of 98.7 pulse 84 respiration 24 blood pressure 132/49 pulse ox 94% on mechanical ventilation FiO2 30% On 07/09/2022 patient was seen and examined in the ICU currently he is on mechanical ventilation assist control rate of 24 FiO2 30% with a PEEP of 5, he is off propofol, he is awake and tries to answer questions with yes or no by moving his head he is moving his hands there has been a significant drop in his platelet count yesterday and today, I will check heparin induced antibodies and hold Lovenox for today, I have contacted Dr. Barajas over the phone and asked if he can switch Zosyn to a different antibiotic, otherwise patient is stable will continue to monitor closely. On 07/10/2022 patient was seen and examined in the ICU he is intubated sedated maintained on mechanical ventilation, he is on assist control rate of 24 FiO2 30% with a PEEP of 5 at this time platelet count is down to 41 Zosyn was switched yesterday by Dr. Barajas to Cefepime, heparin induced antibodies are still pending consult for hematology requested in regard to thrombocytopenia, patient is also having episodes of atrial fibrillation during dialysis he has bradycardia with a heart rate of 49 consultation for cardiology will be initiated otherwise patient is stable without significant change since yesterday. On 07/11/2022 patient was seen and examined in the ICU he is extubated entertained on oxygen via nasal cannula patient is alert and oriented and answering questions appropriately he is complaining of generalized weakness and generalized pain otherwise he denies any complaint On 07/12/2022 patient was seen and examined in the ICU he is extubated maintained on oxygen via nasal cannula, he is alert and oriented in no distress he is complaining of generalized weakness and generalized pain otherwise he denies any complaint On 07/13/2022 patient was seen and examined in the ICU, he is alert and oriented 3 in no distress there is no fever or chills no headache or dizziness no chest pain no shortness of breath no cough no nausea or vomiting no abdominal pain no diarrhea no blood in the stools he has a Russo catheter in he is complaining of right wrist pain with check x-ray he is also complaining of generalized weakness On 07/14/2022 patient was seen and examined in the ICU, he is alert and oriented 3 in no distress , he is complaining of pain in the right wrist area , complaints there is no fever or chills no headache or dizziness no chest pain no shortness of breath no cough no nausea or vomiting no abdominal pain no diarrhea no blood in the stools he has a Russo catheter in he is complaining of right wrist pain with check x-ray he is also complaining of generalized weakness Objective - Vital Signs Vital signs: Vital Signs Temp 97.8 F 07/14/22 02:00 Pulse 70 07/14/22 08:09 Resp 13 07/14/22 02:00 BP 117/58 07/14/22 02:00 Pulse Ox 95 07/14/22 02:00 FiO2 30 07/11/22 20:00 Intake & Output 07/13/22 07/14/22 07/14/22 18:59 06:59 18:59 Intake Total 255 50 Output Total 795 970 Balance -540 -920 Weight 109.6 kg 109.6 kg Intake: IV 255 50 0.9 @ 10 240 Cefepime 1 gm In Sodium 50 Chloride 0.9% 50 ml @ 12. 5 mls/hr IVPB Q12HR [facility] Rx#:[id number] Pressure bag 15 Output: Urine 795 970 Other: Voiding Method Indwelling Catheter Indwelling Catheter # Voids 1 ABP, PAP, CO, CI - Last Documented Arterial Blood Pressure 103/47 - Exam In general patient is alert and responsive in no apparent distress HEENT head normocephalic and atraumatic Neck is supple no JVD no goiter no lymphadenopathy no carotid bruit Chest examination is clear to auscultation no crackles no wheezing Cardiac exam reveals regular heart sounds S1 and S2 no gallops no murmurs Abdomen is distended with generalized tenderness, no organomegaly Extremity exam reveals no edema no cyanosis or clubbing Neurological examination reveals no gross focal deficits - Labs CBC & Chem 7: 07/15/22 12:33 07/15/22 07:13 Labs: Abnormal Lab Results - Last 24 Hours (Table) 07/14/22 07/14/22 Range/Units 06:11 06:11 RBC 3.37 L (4.30-5.90) m/uL Hgb 10.4 L (13.0-17.5) gm/dL Hct 33.7 L (39.0-53.0) % MCV 100.2 H (80.0-100.0) fL Plt Count 58 L D (150-450) k/uL Sodium 135 L (137-145) mmol/L Carbon Dioxide 20 L (22-30) mmol/L BUN 84 H (9-20) mg/dL Creatinine 4.56 H (0.66-1.25) mg/dL Calcium 8.1 L (8.4-10.2) mg/dL Total Bilirubin 2.0 H (0.2-1.3) mg/dL AST 127 H (17-59) U/L ALT 135 H (4-49) U/L Alkaline Phosphatase 155 H (38-126) U/L Albumin 3.0 L (3.5-5.0) g/dL Assessment and Plan Plan: Mental status changes, cause is unclear could be related to overdose of narcotic Leukocytosis, no clear source of infection, chest x-ray and urine analysis don't show any clear evidence of infection, patient received IV steroids in the EMS and in the emergency room, will check lactic acid level and monitor CBC Acute exacerbation of COPD with wheezing on presentation, he was started on IV Solu-Medrol in the emergency room, he is on inhaled bronchodilators Evidence of acute kidney injury was elevated BUN and creatinine patient was started on IV fluid, nephrology consultation was requested Abdominal ascites, status post paracentesis 06/30/2022 with 3.5 L of fluid removed, Evidence of liver cirrhosis Mild elevation in troponin level will monitor Underlying history of hypertension Underlying history of hypothyroidism Underlying history of depression with anxiety disorder Underlying history of vitamin D deficiency Underlying history of degenerative disc disease with chronic back pain maintained on narcotics for pain management Underlying history of gastroesophageal reflux disease At this time patient is admitted to telemetry floor Will check d-dimer check lactic acid recheck CBC and CMP Continue with IV fluid and recheck renal function Consult nephrology
[2022-07-15] MEDS: INSULIN ASPART (NovoLOG) 100 UNIT/ML VIAL SQ SCH (14:09)
[2022-07-15] MEDS: SIMETHICONE 40 MG/0.6 ML DROPS 2,000 MG/30 ML BOTTLE PO SCH (14:10)
--- NOTE | 2022-07-15 14:56 | P.PN ---
Subjective Progress Note Date: 07/15/22 Principal diagnosis: Bacteremia Patient is a 67 year old male presenting to the hospital in mental status changes and multiple falls did have a low-grade fever and elevated white count now with evidence of bacteremia. Patient is status post paracentesis with removal of 3 L of ascitic fluid completed on 06/30/2022, the patient did have left groin dialysis catheter placement and has been started on dialysis as of 07/05/2022, the patient has been extubated as of 07/11/2022 On today's evaluation that is 07/15/2022, the patient denies any fever or any chills, the patient is a breathing comfortably on 2 L nasal cannula oxygen, the patient denies having any chest pain he did have some cough but not bringing up any sputum no vomiting no abdominal pain no diarrhea Objective - Vital Signs Vital signs: Vital Signs Temp 97.6 F 07/15/22 08:00 Pulse 75 07/15/22 08:14 Resp 18 07/15/22 08:00 BP 111/60 07/15/22 08:00 Pulse Ox 94 L 07/15/22 08:00 FiO2 30 07/11/22 20:00 Intake & Output 07/14/22 07/15/22 07/15/22 18:59 06:59 18:59 Intake Total 170 480 Output Total 650 450 Balance -480 30 Weight 108.7 kg Intake: IV 170 0.9 @ 10 120 Cefepime 1 gm In Sodium 50 Chloride 0.9% 50 ml @ 12. 5 mls/hr IVPB Q12HR [facility] Rx#:[id number] Oral 480 Output: Urine 650 450 Other: Voiding Method Indwelling Catheter Indwelling Catheter Indwelling Catheter ABP, PAP, CO, CI - Last Documented Arterial Blood Pressure 103/47 - Exam GENERAL DESCRIPTION: An elderly male lying in bed in no distress RESPIRATORY SYSTEM: Unlabored breathing , decreased breath sounds at bases HEART: S1 S2 regular rate and rhythm , ABDOMEN: Soft , no tenderness EXTREMITIES: No edema feet - Labs CBC & Chem 7: 07/15/22 12:33 07/15/22 07:13 Labs: Abnormal Lab Results - Last 24 Hours (Table) 07/15/22 07/15/22 Range/Units 07:13 07:13 RBC 3.41 L (4.30-5.90) m/uL Hgb 10.8 L (13.0-17.5) gm/dL Hct 33.6 L (39.0-53.0) % Potassium 3.2 L (3.5-5.1) mmol/L BUN 88 H (9-20) mg/dL Creatinine 4.89 H (0.66-1.25) mg/dL Calcium 8.3 L (8.4-10.2) mg/dL Total Bilirubin 1.6 H (0.2-1.3) mg/dL AST 118 H (17-59) U/L ALT 122 H (4-49) U/L Alkaline Phosphatase 167 H (38-126) U/L Albumin 3.1 L (3.5-5.0) g/dL Assessment and Plan (1) Bacteremia Current Visit: Yes Status: Acute Code(s): R78.81 - BACTEREMIA SNOMED Code(s): 7230833 Plan: 1patient with sepsis in this patient who did have a fever elevated white count elevated lactic acid now with evidence of gram-positive bacteremia with a source possible aspiration pneumonia as repeat x-ray did showed increasing density left lower lobe as the patient currently do not have any other obvious focus is abdominal soft on clinical examination no evidence of any joint swelling or cellulitis was noticed. 2blood cultures has been finalized as Streptococcus agalactiae repeat blood cultures have been negative so far 3-repeat CT with evidence of ascites and possible colitis in the left lower quadrant area, patient is status post paracentesis, white count was only 59 and cultures are so far negative 4- Patient with worsening respiratory status requiring intubation possible fluid overload plus minus a component of pneumonia questionable aspiration sputum culture has been obtained which are currently growing Rosanne more likely colonizer, 5-Patient white count has normalized however the patient has developed significant thrombocytopenia for which the patient was taken off the Zosyn , the patient did improvement in his platelet count 6- patient to continue with a short course of oral Augmentin and monitor his clinical course closely Time with Patient: Less than 30
[2022-07-15] MEDS: CALCIUM CARBONATE 500 MG CHEWABLE PO PRN ×2 (15:25→23:58)
[2022-07-15] MEDS: traZODone HCL 50 MG TAB PO SCH (20:25)
--- NOTE | 2022-07-15 20:31 | P.PN ---
Subjective Progress Note Date: 07/15/22 patient seen and evaluated Objective - Vital Signs Vital signs: Vital Signs Temp 98.2 F 07/15/22 12:57 Pulse 70 07/15/22 15:53 Resp 12 07/15/22 12:57 BP 119/64 07/15/22 12:57 Pulse Ox 95 07/15/22 12:57 FiO2 30 07/11/22 20:00 Intake & Output 07/14/22 07/15/22 07/15/22 18:59 06:59 18:59 Intake Total 170 480 360 Output Total 650 450 775 Balance -480 30 -415 Weight 108.7 kg Intake: IV 170 0.9 @ 10 120 Cefepime 1 gm In Sodium 50 Chloride 0.9% 50 ml @ 12. 5 mls/hr IVPB Q12HR [facility] Rx#:[id number] Oral 480 360 Output: Urine 650 450 775 Other: Voiding Method Indwelling Catheter Indwelling Catheter Indwelling Catheter # Bowel Movements 1 ABP, PAP, CO, CI - Last Documented Arterial Blood Pressure 103/47 - Exam - Constitutional extubated awake alert, wants csatheter out General appearance: no acute distress - EENT Eyes: EOMI ENT: other (Oropharyngeal tube along with endotracheal tube appearing midline) - Respiratory mild increase effort - Cardiovascular Rhythm: regular Heart sounds: normal: S1, S2 leg Peripheral Edema: bilateral: 3+ (Anasarca of the lower extremities bilaterally to the thighs) - Gastrointestinal General gastrointestinal: distended, normal bowel sounds, no tenderness - Integumentary Ecchymosis along the arms bilaterally - Neurologic No focal deficits Results - Labs CBC & Chem 7: 07/15/22 12:33 07/15/22 07:13 Labs: Abnormal Lab Results - Last 24 Hours (Table) 07/15/22 07/15/22 07/15/22 Range/Units 07:13 07:13 12:33 RBC 3.41 L (4.30-5.90) m/uL Hgb 10.8 L (13.0-17.5) gm/dL Hct 33.6 L (39.0-53.0) % Plt Count 64 L 70 L (150-450) k/uL PT (9.0-12.0) sec INR (<1.2) Potassium 3.2 L (3.5-5.1) mmol/L BUN 88 H (9-20) mg/dL Creatinine 4.89 H (0.66-1.25) mg/dL Calcium 8.3 L (8.4-10.2) mg/dL Total Bilirubin 1.6 H (0.2-1.3) mg/dL AST 118 H (17-59) U/L ALT 122 H (4-49) U/L Alkaline Phosphatase 167 H (38-126) U/L Albumin 3.1 L (3.5-5.0) g/dL 07/15/22 Range/Units 12:33 RBC (4.30-5.90) m/uL Hgb (13.0-17.5) gm/dL Hct (39.0-53.0) % Plt Count (150-450) k/uL PT 16.5 H (9.0-12.0) sec INR 1.6 H (<1.2) Potassium (3.5-5.1) mmol/L BUN (9-20) mg/dL Creatinine (0.66-1.25) mg/dL Calcium (8.4-10.2) mg/dL Total Bilirubin (0.2-1.3) mg/dL AST (17-59) U/L ALT (4-49) U/L Alkaline Phosphatase (38-126) U/L Albumin (3.5-5.0) g/dL Microbiology - Last 24 Hours (Table) 06/29/22 15:12 Fungal Culture - Preliminary Ascites Fluid Assessment and Plan Plan: ssessment and Plan Assessment: Mr. Souza is a 67-year-old gentleman with a past medical history significant for hypertension, hyperlipidemia, CVA/TIA as well as radiographic evidence for cirrhosis with hypersplenism has an prolonged hospitalization course for sharp recollect a bacteremia resulting in acute hypoxic respiratory failure and septic shock with subsequent aspiration pneumonia and acute kidney injury resulting in the need for hemodialysis as been noted to have progressive thrombocytopenia. In addition, he is also been noted to have progressive normocytic tube slightly macrocytic anemia during the course of his hospitalization. Plan: Thrombocytopenia -His platelet trends are improving DIC work-up negative COntinue to monitor daily Normocytic to macrocytic anemia - Stable no intervention today Time with Patient: Greater than 30 Dr. Simmons: I have completed the full history and physical and developed the above impression and plan, agree with dictation dictated as a ascribe
[2022-07-15] MEDS: POTASSIUM CHLORIDE ER 20 MEQ TAB.ER PO SCH ×2 (22:30→23:14)
[2022-07-16] MEDS: POTASSIUM CHLORIDE ER 20 MEQ TAB.ER PO SCH ×4 (01:40→21:49)
[2022-07-16] MEDS: LEVOTHYROXINE 88 MCG TAB PO SCH (04:53)
[2022-07-16 06:36] LABS: HCT 30.4 % (39.0-53.0); HGB 9.5 gm/dL (13.0-17.5); Hypochromasia Marked; MCH 31.6 pg (25.0-35.0); MCHC 31.3 g/dL (31.0-37.0); MCV 100.7 fL (80.0-100.0); Macrocytosis Slight; Mean Platelet Volume 11.7; Platelet Count 65 k/uL (150-450); RBC 3.02 m/uL (4.30-5.90); RDW 14.6 % (11.5-15.5); WBC 8.3 k/uL (3.8-10.6)
[2022-07-16 06:46] LABS: Albumin 2.7 g/dL (3.5-5.0); Calcium 8.4 mg/dL (8.4-10.2); Potassium 3.3 mmol/L (3.5-5.1); Total Bilirubin 1.5 mg/dL (0.2-1.3); Total Protein 6.1 g/dL (6.3-8.2)
[2022-07-16] MEDS: IPRATROPIUM-ALBUTEROL 3 ML NEB INHALATION SCH ×4 (07:53→19:51)
[2022-07-16] MEDS: FUROSEMIDE 10 MG/ML 10 ML VIAL IV SCH (08:59)
[2022-07-16] MEDS: PANTOPRAZOLE 40 MG/10 ML VIAL IVP SCH ×2 (09:00→20:54)
[2022-07-16] MEDS: AMOXIC-POT CLAV 500-125 MG 1 EACH TAB PO SCH ×2 (09:00→20:54)
[2022-07-16] MEDS: NICOTINE 7MG/24HR PATCH TRANSDERM SCH (09:00)
[2022-07-16] MEDS: ATORVASTATIN 40 MG TAB PO SCH (09:00)
[2022-07-16] MEDS: METOPROLOL SUCCINATE (ER) 25 MG TAB.ER.24H PO SCH (09:00)
--- NOTE | 2022-07-16 10:17 | P.PN ---
Subjective Patient is seen in follow-up for acute kidney injury. Started on hemodialysis 07/05/2022. Last hemodialysis was 07/11/2022. Maintained on IV Lasix. Urine output documented is 1.1 L on 07/15/2022 at 775 mL so far today. Creatinine higher at 5.75 today. Resting in bed. Having breakfast. Vital signs are stable. General: Awake. No acute distress. HEENT: On nasal cannula. LUNGS: Breath sounds decreased. HEART: Rate and Rhythm are regular. ABDOMEN: Soft, no distention. EXTREMITITES: 1+ edema. Objective - Vital Signs Vital signs: Vital Signs Temp 98.5 F 07/16/22 04:44 Pulse 77 07/16/22 08:05 Resp 18 07/16/22 04:44 BP 109/58 07/16/22 04:44 Pulse Ox 98 07/16/22 07:54 FiO2 30 07/11/22 20:00 Intake & Output 07/15/22 07/16/22 07/16/22 18:59 06:59 18:59 Intake Total 360 360 180 Output Total 775 Balance -415 360 180 Weight 107 kg Intake: Oral 360 360 180 Output: Urine 775 Other: Voiding Method Indwelling Catheter Indwelling Catheter # Bowel Movements 1 ABP, PAP, CO, CI - Last Documented Arterial Blood Pressure 103/47 - Labs CBC & Chem 7: 07/16/22 05:52 07/16/22 05:52 Labs: Abnormal Lab Results - Last 24 Hours (Table) 07/15/22 07/15/22 07/15/22 Range/Units 07:13 12:33 12:33 RBC (4.30-5.90) m/uL Hgb (13.0-17.5) gm/dL Hct (39.0-53.0) % MCV (80.0-100.0) fL Plt Count 64 L 70 L (150-450) k/uL PT 16.5 H (9.0-12.0) sec INR 1.6 H (<1.2) Sodium (137-145) mmol/L Potassium (3.5-5.1) mmol/L Carbon Dioxide (22-30) mmol/L BUN (9-20) mg/dL Creatinine (0.66-1.25) mg/dL Total Bilirubin (0.2-1.3) mg/dL AST (17-59) U/L ALT (4-49) U/L Alkaline Phosphatase (38-126) U/L Total Protein (6.3-8.2) g/dL Albumin (3.5-5.0) g/dL 07/16/22 07/16/22 07/16/22 Range/Units 00:30 05:52 05:52 RBC 3.02 L (4.30-5.90) m/uL Hgb 9.5 L (13.0-17.5) gm/dL Hct 30.4 L (39.0-53.0) % MCV 100.7 H (80.0-100.0) fL Plt Count 65 L (150-450) k/uL PT (9.0-12.0) sec INR (<1.2) Sodium 136 L (137-145) mmol/L Potassium 3.3 L 3.3 L (3.5-5.1) mmol/L Carbon Dioxide 21 L (22-30) mmol/L BUN 95 H (9-20) mg/dL Creatinine 5.75 H (0.66-1.25) mg/dL Total Bilirubin 1.5 H (0.2-1.3) mg/dL AST 105 H (17-59) U/L ALT 107 H (4-49) U/L Alkaline Phosphatase 133 H (38-126) U/L Total Protein 6.1 L (6.3-8.2) g/dL Albumin 2.7 L (3.5-5.0) g/dL Microbiology - Last 24 Hours (Table) 06/29/22 15:12 Fungal Culture - Preliminary Ascites Fluid Assessment and Plan Plan: Assessment: 1. Acute kidney injury secondary to septic ATN and hypotension. Nonoliguric. Baseline creatinine near 1. Started on hemodialysis 07/05/2022 - last treatment 07/11/2022. Creatinine 5.75 today. 2. Hypokalemia from diuresis. 3. Shock status post Levophed. 4. Group B strep bacteremia and ?pneumonia on antibiotics. ID following. 5. Volume overload. Improved with ultrafiltration and diuresis. 6. Liver cirrhosis. 7. Ascites status post paracentesis on 07/01/2022 to 3.6 L drained. 8. A. fib with RVR s/p Cardizem drip. Cardiology following. 9. Hyperphosphatemia secondary to acute kidney injury. Last phosphorus 5.3 dated 07/11/2022. 10. Metabolic acidosis secondary to acute kidney injury. 11. Anemia. Rule out iron deficiency. Plan: Stop IV Lasix. Start oral torsemide 40 mg once daily tomorrow. Potassium replaced. Add oral bicarb. Check iron studies. Continue to monitor renal function and urine output. Continue to assess daily for need for renal replacement therapy.
--- NOTE | 2022-07-16 10:34 | P.PN ---
Subjective Progress Note Date: 07/16/22 Principal diagnosis: Acute mental status changes. Pulmonary consultation dated 06/22/2022. 59-year-old male seen in the emergency department, on June 21. He apparently presented with mental status changes. In addition, he apparently was having multiple falls at home. The patient was seen and evaluated, and admitted to the hospital with a diagnosis of mental status changes, opiate dependence, COPD, acute kidney injury, and he went to the general medical floor. Today, a rapid response was called on this patient, and the patient was transferred down to the intensive care unit. Currently he is on 3 L nasal cannula. He is getting saline at 70 mL an hour, and dexmedetomidine at 1 mcg/kg/h. He apparently has a history of asthma, CVA, GERD, hyperlipidemia, hypertension, echo staxis, anxiety, and chronic tobacco dependence. Labs today include a white count of 21.9, hemoglobin 14.8, hematocrit 45.6, and a platelet count of 118,000. D- dimer is 2.12. PT is 15 with an INR 1.4. Blood gases, show pO2 of 117, pCO2 31, pH is 7.42. That was on 50% oxygen. Sodium 131, potassium 4.9, chlorides 100, CO2 22, BUN 52, and creatinine 1.28. Lactic acid was elevated at 5.9. I've asked the nurse to give the patient a liter of lactated Ringer's. Troponin was 0.237. Urine is got trace protein and trace glucose. Leukocyte esterase and nitrate were both negative. Drug screen was positive for opiates. Nasal swab testing was negative for coronavirus. Chest x-ray on admission was negative for an acute process. Head CT initially did not show anything acute. A repeat chest x-ray today showed increased interstitial densities in the left lower lobe. Progress note dated 06/23/2022. This is a 59-year-old male who was seen yesterday in consultation. He was initially seen on June 21 in the emergency room with mental status changes. The patient was transferred to the intensive care unit, because of worsening mental status, and some cardiovascular issues. Currently, the patient is on 3 L nasal cannula. He is getting lactated Ringer's at 75 mL an hour. He is on vancomycin and Unasyn. Was on Rocephin. He has been seen by infectious diseases and neurology. His CT angiogram was negative. Initially heparin was discontinued, but because of EKG changes, he'll be restarted. He is also on dexmedetomidine at 0.3 mcg/kg/h. I did speak to neurology about possible viral encephalitis, and we discussed the possibility of lumbar puncture, and acyclovir IV. White count 15.4, hemoglobin 13.2, hematocrit 41.5, and platelet count 225,000. Sodium, potassium, chloride, CO2, are all normal. BUN 66, and creatinine 0.89. Group B streptococci are in the blood cultures. Reevaluated today on 07/08/22, remains in the ICU intubated and mechanically ventilated. Patient is now on assist control rate of 24-500 FiO2 30% PEEP of 5 ABG showed a pO2 of 75 pCO2 43 pH of 7.42 patient remains on 30% FiO2. He is on TPN at 47 mL/h is also on Zosyn empirically. His abdomen remains distended and the patient continues to have ascites, I'm recommending interventional radiology to evaluate for possible paracentesis again on this patient. Patient has been off propofol since yesterday, he is arousable, opens his eyes, wiggling his toes, but remains very generally weak. We'll continue to hold propofol. In the meantime patient is not quite ready for weaning trials, but that is to be considered down the line. Patient remains on dialysis. Labs today showed relat ively normal electrolytes, BMI 57 creatinine 2.88. CBC is relatively unremarkable. Chest x-ray continues to show mild interstitial edema, and small left and right pleural effusion Reevaluated today on 07/09/22, remains in the ICU intubated mechanically ventilated patient is off propofol now for almost 2 days. Patient is arousable and follows very simple instructions like squeezing hands and wiggling toes however he is extremely generally weak. He is on assist control rate of 24th of volume 500 FiO2 30% PEEP of 5. ABG showed a pO2 of 78 pCO2 38 pH of 7.44 Patient is on small dose of norepinephrine at 0.02 mcg/kg/m is also on TPN at 47 mL/h. Chest x-ray continues to show improvement in his infiltrates/edema , patient remains on hemodialysis he had dialysis yesterday and 3.3 L were taken off. Patient may have a repeat paracentesis next Monday. WBC count today is 8.1 hemoglobin is 9.2. Basic metabolic profile is normal except for low potassium of 3.0 BUN is 55 creatinine 3.03. Today the patient would have a trial of pressure support and CPAP. Reevaluated today on 07/10/22, patient remains in the ICU intubated and mechanically ventilated, remains off propofol, remains on assist control rate of 24 to volume 500 FiO2 30% PEEP of 5, ABG showed a pO2 of 90 pCO2 of 37 pH of 7.47, CBC is relatively unremarkable. Basic metabolic profile is normal BUN is 75 creatinine 3.94, chest x-ray continues to show steady improvement in his interstitial edema and infiltrates. Clinically the patient seems to be more awake today, he remains off propofol, and I will go ahead and give the patient a trial of weaning if possible today. However after initiation of pressure support and CPAP, I was notified by the respiratory therapist that the patient has apnea episodes, and I recommended that we go on a pressure support of 10, IMV rate of 10, and continue same FiO2, continue same PEEP. The plan is to gradually go down the IMV rate by 2 every 2 hours. And hopefully we could avoid any further apnea episodes and may even consider extubating the patient if he tolerates this modality otherwise may keep him again on mechanical ventilation overnight with IMV and pressure support Progress note dated 07/11/2022. This is a 67-year-old male who was admitted back on June 21, for mental status changes. The patient was intubated on July 04, and remains on the mechanical ventilator. I saw him initially back on June 22 and . Currently, he is on the SIMV mode, rate 6, tidal volume 500, FiO2 30%, and PEEP of 5. Blood gases show pO2 of 88, pCO2 42, 7.4. The patient's getting saline at 10 mL an hour. Norepinephrine has been weaned off. Is getting Nepro at 10 mL an hour. He is also been weaned off. Microbiologic studies are negative. The patient remains on cefepime. The patient is apparently going to have a paracentesis performed by interventional radiology today. In addition, we'll get a repeat chest x-ray, and sometime later today, give the patient a spontaneous breathing trial. 6, 9.6, hematocrit 30.4, platelet count 31,000. PT is 12.9, with an INR 1.2. Sodium 133, potassium 4.1, chlorides 96, CO2 24, anion gap 13, BUN 92, and creatinine 4.67. AST is 152 with an ALT of 161. Blood cultures back from June 22 show evidence of group B streptococci. Chest x-ray from today shows relatively clear lung amado. Progress note dated 07/12/2022. 67-year-old male who was admitted on June 21, for mental status changes. He was intubated on July 04, for respiratory failure. Yesterday, July 11, the patient was extubated. He is currently on 2 L nasal cannula. His mental status is improving. He is getting a saline IV at 10 mL an hour. White count 7.5, hemoglobin 9.8, hematocrit 31.5, and platelet count 31,000. Sodium 137, potassium 4.3, chlorides 102, CO2 22, anion gap 13, BUN 67, and creatinine 3.73. Albumin is 2.8. Chest x-ray shows bilateral infiltrates, likely because the patient is not on positive pressure ventilation anymore. Progress note dated 07/13/2022. 67-year-old male was admitted back on June 21, for mental status changes. He was intubated for respiratory failure on July 04. On July 11, he was successfully extubated. He is currently on 2 L. Is getting saline at 20 mL an hour. The patient's mental status is much improved. Labs today include a white count of 8.6, hemoglobin 9.5, hematocrit 29.5, and a platelet count 36,000. Sodium 135, potassium, chloride, CO2, anion gap, all normal. BUN was 70 with a creatinine of 4.47. He is being followed by nephrology. Albumin is 2.8. Recent microbiologic data is negative. No chest x-ray today. The patient had an uneventful night, and in my opinion, could be transferred to the general medical or without telemetry. Progress note dated 07/13/2022. 67-year-old male who was admitted back on June 21 for mental status changes. He was intubated for respiratory failure on July 04. On July 11, he was successfully extubated. He is currently on room air. Saturations are 99%. He's not receiving any IV fluids. The patient can be transferred to a general medical floor, without telemetry. His mental status continues to improve. White count 9, hemoglobin 10.4, hematocrit 33.7, and platelet count 58,000. Sodium 135, potassium 4, chlorides 101, CO2 20, BUN 84, and creatinine 4.56. Albumin is 3. No recent chest x-ray. The patient currently is on cefepime, although, I don't know why. I've asked the nurse to call the infectious disease doctor, and inquire. Progress note dated 07/15/2022. 67-year-old male who was admitted back on June 21 for mental status changes, and respiratory failure. The patient was intubated on July 04, and successfully extubated on July 11. He is currently in the intensive care unit, room 254. He's currently on room air. At nighttime, he does sleep with 2 L. He's not receiving any IV fluids. The patient could be transferred to the general medical floor, without telemetry. Infectious disease doctor discontinued cefepime, and place the patient on Augmentin. White count 9.8, he will been 10.8, hematocrit 33.6, with a platelet count that is currently pending. Sodium 137, potassium 3.2, chlorides 99, CO2 22, anion gap 16, BUN 88, with a creatinine of 4.89. This reflects a worsening pattern of renal failure. No new chest x-ray today, or new microbiologic data. Progress note dated 07/16/2022. 67-year-old male seen today in room 528. Yesterday, he was in the intensive care unit. He was admitted back on June 21 for mental status changes, and respiratory failure. He was intubated, successfully extubated on July 11. His mental status has improved on a daily basis. Currently, he's on a couple of liters. He's not receiving any IV fluids. All in all, he is doing much better. He remains on Augmentin. Today's laboratory include a white count 8.3, hemoglobin 9.5, hematocrit 30.2, and a platelet count of 65,000. Sodium 136, potassium 3.3, chlorides 100, CO2 21, anion gap 15, BUN 95, and creatinine 5.75. His kidney function continues to deteriorate, and eventually, he may need hemodialysis again. Objective - Vital Signs Vital signs: Vital Signs Temp 98.5 F 07/16/22 04:44 Pulse 77 07/16/22 08:05 Resp 18 07/16/22 04:44 BP 109/58 07/16/22 04:44 Pulse Ox 98 07/16/22 07:54 FiO2 30 07/11/22 20:00 Intake & Output 07/15/22 07/16/22 07/16/22 18:59 06:59 18:59 Intake Total 360 360 180 Output Total 775 Balance -415 360 180 Weight 107 kg Intake: Oral 360 360 180 Output: Urine 775 Other: Voiding Method Indwelling Catheter Indwelling Catheter # Bowel Movements 1 ABP, PAP, CO, CI - Last Documented Arterial Blood Pressure 103/47 - Exam No acute distress, awake and alert, on room air. HEENT examination is grossly unremarkable. Neck supple. Full range of motion. No adenopathy thyromegaly or neck vein distention. Cardiovascular examination reveals regular rhythm rate. S1-S2 normal. No S3 or S4. No discernible murmur noted. Heart rate 77 bpm. Heart sounds are distant. Lungs reveal mostly clear breath sounds. Breath sounds are equal bilaterally. Scattered rhonchi are noted. No wheezes or crackles. Saturations are 98 % Abdomen soft bowel sounds are heard. No masses or tenderness. Extremities reveal some mild edema. No cyanosis or clubbing. Skin reveals some chronic venous stasis changes. Neurologic examination reveals the patient with improved mental status and alertness. - Labs CBC & Chem 7: 07/16/22 05:52 07/16/22 05:52 Labs: Abnormal Lab Results - Last 24 Hours (Table) 07/15/22 07/15/22 07/15/22 Range/Units 07:13 12:33 12:33 RBC (4.30-5.90) m/uL Hgb (13.0-17.5) gm/dL Hct (39.0-53.0) % MCV (80.0-100.0) fL Plt Count 64 L 70 L (150-450) k/uL PT 16.5 H (9.0-12.0) sec INR 1.6 H (<1.2) Sodium (137-145) mmol/L Potassium (3.5-5.1) mmol/L Carbon Dioxide (22-30) mmol/L BUN (9-20) mg/dL Creatinine (0.66-1.25) mg/dL Total Bilirubin (0.2-1.3) mg/dL AST (17-59) U/L ALT (4-49) U/L Alkaline Phosphatase (38-126) U/L Total Protein (6.3-8.2) g/dL Albumin (3.5-5.0) g/dL 07/16/22 07/16/22 07/16/22 Range/Units 00:30 05:52 05:52 RBC 3.02 L (4.30-5.90) m/uL Hgb 9.5 L (13.0-17.5) gm/dL Hct 30.4 L (39.0-53.0) % MCV 100.7 H (80.0-100.0) fL Plt Count 65 L (150-450) k/uL PT (9.0-12.0) sec INR (<1.2) Sodium 136 L (137-145) mmol/L Potassium 3.3 L 3.3 L (3.5-5.1) mmol/L Carbon Dioxide 21 L (22-30) mmol/L BUN 95 H (9-20) mg/dL Creatinine 5.75 H (0.66-1.25) mg/dL Total Bilirubin 1.5 H (0.2-1.3) mg/dL AST 105 H (17-59) U/L ALT 107 H (4-49) U/L Alkaline Phosphatase 133 H (38-126) U/L Total Protein 6.1 L (6.3-8.2) g/dL Albumin 2.7 L (3.5-5.0) g/dL Microbiology - Last 24 Hours (Table) 06/29/22 15:12 Fungal Culture - Preliminary Ascites Fluid Assessment and Plan Assessment: Acute mental status changes, rapid respiratory rate, tachycardia, and elevated lactic acid, rule out either sepsis, or a primary neurologic event, status post intubation and mechanical ventilation on 07/04/2022. The patient was successful ly extubated on July 11, 2022. Ascites, status post paracentesis abdominis. Acute kidney injury, requiring hemodialysis. History of CVA. History of hypertension. History of hyperlipidemia. History of asthma. History of gastroesophageal reflux disease. History of anxiety. History of chronic back. History of epistaxis. Plan: Plan dated 06/22/2022 The patient was transferred down to the intensive care. The patient is going for a computed tomography scan of the chest, to rule out pulmonary embolism. I've asked the nurses to switch his fluids to lactated Ringer's, and give him a bolus. In addition, I've asked the nurse to consult neurology for his mental status changes. Labs, x-rays, and medications are all reviewed. Prognosis is guarded. The patient is not very active at home. Plan dated 06/23/2022. The patient is currently on vancomycin and Unasyn. Blood cultures were positive for group B streptococci. I did discuss with neurology, and LP, and also the initiation of acyclovir. The patient appears to be a bit better today than he was yesterday. He still is on dexmedetomidine though. His vital signs seem reasonably stable. CTA was negative for pulmonary embolism. He had some EKG changes and will be started back on IV heparin. We will continue to follow make recommendations where appropriate. Prognosis is very guarded. Plan dated 07/11/2022. Norepinephrine has been weaned off. TPN has also been weaned off. The patient remains on the mechanical ventilator. He's not getting any sedatives. We will attempt to do a weaning trial on him, with possible extubation. Chest x-ray will be done in advance. Also, we will await interventional radiology performing the paracentesis abdominis. Labs, x-rays, and medications are reviewed. Microbiologic studies are negative. The patient does remain on cefepime. Overall prognosis remains very guarded. Plan dated 07/12/2022. The patient was successfully extubated yesterday on July 11. Currently, he's on 2 L. Labs, x-rays, and medications are reviewed. Is getting saline at 10 mL an hour. I did speak to him briefly as to whether or not he would want go back on life support. He said he will give this some thought. No additional recommendations are made. Prognosis is guarded. Plan dated 07/13/2022. The patient was successfully extubated on July 11. He's currently on 2 L. His mental status is much improved. He had an uneventful night. Labs, chest x- ray, and medications are reviewed. The patient could be transferred out to the general medical floor without telemetry. No additional recommendations are made. Overall prognosis remains guarded. Plan dated 07/14/2022. The patient continues to show improvement. The patient's mental status is better. He's not receiving any IV fluids. He is currently on room air with saturation of 99%. The patient could be transferred to general medical floor without telemetry. We have asked the infectious disease doctor to determine whether or not the patient continues to need cefepime. Labs, x-rays, and medications are reviewed. Prognosis is certainly guarded. Plan dated 07/15/2022. Patient continues to show gradual improvement. He remains on room air. He does take oxygen at 2 L, during the nighttime hours. Infectious disease doctor discontinue cefepime, and place the patient on Augmentin. Microbiologic data are negative. Not sure what is being treated. Labs, x-rays, and medications are reviewed. Overall prognosis remains guarded. We will continue to follow make recommendations along the way. The patient could be transferred to the general medical floor, without telemetry. Plan dated 07/16/2022. The patient continues to improve. We will continue to follow the patient. No additional recommendations are made. The patient continues on antibiotics as per infectious diseases. Labs, x-rays, medications are reviewed. His mental status continues to improve on a regular basis. Overall prognosis though, remains guarded. Time with Patient: Less than 30
--- NOTE | 2022-07-16 11:20 | P.PN ---
Subjective Progress Note Date: 07/16/22 Request has been made to remove dialysis catheter. Objective - Vital Signs Vital signs: Vital Signs Temp 98.5 F 07/16/22 04:44 Pulse 77 07/16/22 08:05 Resp 18 07/16/22 04:44 BP 109/58 07/16/22 04:44 Pulse Ox 98 07/16/22 07:54 FiO2 30 07/11/22 20:00 Intake & Output 07/15/22 07/16/22 07/16/22 18:59 06:59 18:59 Intake Total 360 360 180 Output Total 775 Balance -415 360 180 Weight 107 kg Intake: Oral 360 360 180 Output: Urine 775 Other: Voiding Method Indwelling Catheter Indwelling Catheter # Bowel Movements 1 ABP, PAP, CO, CI - Last Documented Arterial Blood Pressure 103/47 - Labs CBC & Chem 7: 07/16/22 05:52 07/16/22 05:52 Labs: Abnormal Lab Results - Last 24 Hours (Table) 07/15/22 07/15/22 07/15/22 Range/Units 07:13 12:33 12:33 RBC (4.30-5.90) m/uL Hgb (13.0-17.5) gm/dL Hct (39.0-53.0) % MCV (80.0-100.0) fL Plt Count 64 L 70 L (150-450) k/uL PT 16.5 H (9.0-12.0) sec INR 1.6 H (<1.2) Sodium (137-145) mmol/L Potassium (3.5-5.1) mmol/L Carbon Dioxide (22-30) mmol/L BUN (9-20) mg/dL Creatinine (0.66-1.25) mg/dL Total Bilirubin (0.2-1.3) mg/dL AST (17-59) U/L ALT (4-49) U/L Alkaline Phosphatase (38-126) U/L Total Protein (6.3-8.2) g/dL Albumin (3.5-5.0) g/dL 07/16/22 07/16/22 07/16/22 Range/Units 00:30 05:52 05:52 RBC 3.02 L (4.30-5.90) m/uL Hgb 9.5 L (13.0-17.5) gm/dL Hct 30.4 L (39.0-53.0) % MCV 100.7 H (80.0-100.0) fL Plt Count 65 L (150-450) k/uL PT (9.0-12.0) sec INR (<1.2) Sodium 136 L (137-145) mmol/L Potassium 3.3 L 3.3 L (3.5-5.1) mmol/L Carbon Dioxide 21 L (22-30) mmol/L BUN 95 H (9-20) mg/dL Creatinine 5.75 H (0.66-1.25) mg/dL Total Bilirubin 1.5 H (0.2-1.3) mg/dL AST 105 H (17-59) U/L ALT 107 H (4-49) U/L Alkaline Phosphatase 133 H (38-126) U/L Total Protein 6.1 L (6.3-8.2) g/dL Albumin 2.7 L (3.5-5.0) g/dL Microbiology - Last 24 Hours (Table) 06/29/22 15:12 Fungal Culture - Preliminary Ascites Fluid Assessment and Plan Assessment: Need for dialysis catheter removal. The sutures were transected and the catheter removed without incident. Pressure was held at the puncture site until all evidence of bleeding ceased. Plan: Continue supportive care. Time with Patient: Less than 30
[2022-07-16] MEDS: SODIUM BICARBONATE TAB 650 MG TAB PO SCH ×2 (11:28→20:54)
[2022-07-16] MEDS: ACETAMINOPHEN TAB 500 MG TAB PO PRN ×2 (11:30→19:25)
--- NOTE | 2022-07-16 12:40 | P.PN ---
Subjective Progress Note Date: 07/15/22 Ag Souza, is a 67-year-old male who presented to [facility] emergency room after having a multiple falls at home, has significant mental status changes with somnolence and poor responsiveness, history per his , over the last 24 hours patient has been not feeling well, he fell twice at home, on the second time she was not able to wake him up and get him up from the floor through the bed, she called EMS and he was brought into emergency room. He was evaluated in the emergency room vital examination on presentation revealed a temperature of 97.3 pulse 82 respiration 16 blood pressure 121/67 pulse ox 97% on room air Laboratory data revealed a white blood count of 23.2 hemoglobin 14.4 platelet count 98,000 sodium 129 potassium 4.9 chloride 96 CO2 25 BUN 51 creatinine 2.24 troponin level was 0.02 COVID-19 testing was negative Testing in the emergency room revealed chest x-ray done in the emergency room did not reveal significant abnormality. Patient has a known history of degenerative disc disease with chronic pain maintained on narcotics for pain management he was given Narcan in the emergency room which led to improvement in his mental status. Patient was admitted to medical floor for further evaluation and treatment. On 06/22/2022 patient was seen and examined on the telemetry floor he is still somnolent, agitated, pulling on his IV line, he was started through the night on IV Ativan, vital examination reveals a temperature of 98.4 pulse 132 respiration 24 blood pressure 172/91 pulse ox 96% on 2 L nasal cannula, white blood count is 21.9 hemoglobin 14.8 platelet count 118 d-dimer was elevated at 2.12 at this time will start patient on IV heparin high-intensity for possible pulmonary embolism, his kidney function is still elevated, will defer computed tomography scan this time, he is not cooperative to proceed with VQ scan, will continue with IV fluid, nephrology consultation and infectious disease consultation were requested. On 06/23/2022 patient was seen and examined in the ICU he is more alert and oriented today vital exam reveals a temperature of 98.2 pulse 86 respiration 23 blood pressure 138/79 pulse ox 93% on 2 L nasal cannula white blood count is down to 15.4 hemoglobin 13.2 platelet count 125 kidney function improved with BUN at 66 and creatinine at 0.89 kidney ultrasound was done and revealed no evidence of renal stones or obstruction, CT angiogram of the chest was done and there was no evidence of pulmonary embolism, blood culture were positive for Streptococcus group b , patient is currently maintained on IV Unasyn, IV vanc omycin and IV acyclovir, cardiology, pulmonary, nephrology, neurology and infectious disease are following On 06/24/2022 patient was seen and examined in the ICU he is more alert and oriented today kidney ultrasound was done and revealed no evidence of renal stones or obstruction, CT angiogram of the chest was done and there was no evidence of pulmonary embolism, blood culture were positive for Streptococcus group b , patient is currently maintained on IV Unasyn, IV vancomycin and IV acyclovir, cardiology, pulmonary, nephrology, neurology and infectious disease are following. Patient had a maroon colored stools through the night, GI consultation is not available this week, surgical consultation was requested for evaluation for possible GI bleed On 06/25/2022 patient was seen and examined in the ICU, he is more alert and responsive today, there is no fever or chills no headache or dizziness no chest pain no shortness of breath no cough no nausea or vomiting no abdominal pain no diarrhea and no urinary symptoms. IV heparin has been discontinued, at this time will start subcu Lovenox for DVT prophylaxis, he remains on IV antibiotics cefazolin 2 g IV every 8 hours. On 06/26/2022 patient was seen and examined in the ICU he is alert and oriented 3 in no apparent distress he is complaining of abdominal discomfort otherwise he denies any complaint at this time there is no fever or chills no headache or dizziness no chest pain no shortness of breath no cough no nausea or vomiting no diarrhea no blood in the stools no burning with urination no frequency or urgency and no hematuria. On 06/27/2022 patient was seen and examined on in the ICU he is alert and oriented 3, he is feeling better, he had multiple bowel movements and his abdominal pain has improved, he is still complaining of difficulty sleeping at night otherwise he denies any complaints there is no fever or chills no headache or dizziness no chest pain no shortness of breath no cough no nausea or vomiting no abdominal pain no diarrhea no blood in the stools no burning with urination no frequency or urgency and no hematuria. On 06/28/2022 patient was seen and examined on the medical floor he is alert and oriented 3 in no distress there is no fever or chills no headache or dizziness no chest pain no shortness of breath no cough no nausea or vomiting no abdominal pain no diarrhea, no blood in the stools no burning with urination no frequency or urgency and no hematuria patient has generalized weakness he is improving gradually will continue to follow closely physical therapy is following On 06/29/2022 patient was seen and examined on the medical floor he is alert and oriented 3 in no apparent distress there is no fever or chills no headache or dizziness no chest pain no shortness of breath no cough no nausea or vomiting he is complaining of abdominal discomfort with abdominal distention no diarrhea or constipation no blood in the stools no burning with urination no frequency or urgency and no hematuria. At this time patient is scheduled for computed tomography scan of the abdomen and pelvis will continue to monitor closely. On 06/30/2022 patient was seen and examined on the telemetry floor he is alert and oriented 3 in no apparent distress he is complaining now of severe neck gina n and back pain and requesting [place], patient underwent paracentesis today, 3.5 L of fluid were removed, otherwise patient denies any other symptoms there is no fever or chills no headache or dizziness no chest pain no shortness of breath no cough no nausea or vomiting no abdominal pain no diarrhea and no urinary symptoms On 07/01/2022 patient was seen and examined on the medical floor he is alert and oriented 3 in no apparent distress he is complaining of abdominal discomfort and distention otherwise he denies any complaints at this time there is no fever or chills no headache or dizziness no chest pain no shortness of breath no cough no nausea or vomiting no diarrhea no blood in the stools no burning with urination no frequency or urgency and no hematuria On 07/02/2022 patient was seen and examined on the medical floor he is alert and oriented 3 in no apparent distress he is complaining of abdominal discomfort and distention, he is complaining of bilateral hip pain, he received 1 dose of lactulose and had multiple episodes of diarrhea afterwards lactulose was discontinued, otherwise he denies any complaints at this time there is no fever or chills no headache or dizziness no chest pain no shortness of breath no cough no nausea or vomiting no blood in the stools no burning with urination no frequency or urgency and no hematuria. On 07/03/2022 patient was seen and examined the medical he is alert and oriented he is complaining of abdominal distention was discomfort and shortness of breath otherwise he denies any complaints there is no fever or chills no headache or dizziness no chest pain no cough no nausea or vomiting no urinary symptoms On 07/04/2022 patient was seen and examined in the ICU he is more lethargic today he was started on BiPAP and transferred to ICU today ammonia level is elevated at 38 there is no fever or chills no headache or dizziness no chest pain patient has significant distention in the abdomen, no nausea or vomiting no diarrhea, Russo catheter is in. On 07/05/2022 patient was seen and examined in the ICU at this time he is intubated sedated maintained on mechanical ventilation, currently he is on assist control rate of 20 to FiO2 50% and PEEP of 5 he had a dialysis catheter placed and a session of hemodialysis is scheduled for this afternoon, patient is maintained on norepinephrine drip, white blood count is up to 25,000 hemoglobin is 11 BUN is up to 78 and creatinine 2.47 patient is maintained on IV Zosyn infectious disease are following, prognosis is guarded will continue with aggressive management at this time and sister are at the bedside and are aware of patient's condition. On 07/06/2022 patient was seen and examined in the ICU he is intubated sedated maintained on mechanical ventilation assist control rate 22 FiO2 50% with PEEP of 5 he was started on hemodialysis yesterday he is still IV antibiotic and IV fluid and norepinephrine temperature of 97.7 pulse 96 respiration 24 blood pressure 128/48 sodium 135 potassium 4.4 chloride 101 CO2 22 BUN 78 creatinine 3.19 white blood count 17.4 hemoglobin 10.5 platelet count 167 On 07/07/2022 patient was seen and examined in the ICU he is intubated sedated maintained on mechanical ventilation, he is maintained on assist control FiO2 40% feet 058 arterial blood gas is improving is maintained on TPN he is maintained on IV antibiotics he is maintained on hemodialysis vital exam reveals a temperature of 97.2 pulse 75 respiration 24 blood pressure 128/48 pulse ox 100% BUN is 63 creatinine 2.86 On 07/08/2022 patient was seen and examined in the ICU he is intubated sedated maintained on mechanical ventilation he is maintained on norepinephrine for pressure support, he is maintained on IV Zosyn, he was started on hemodialysis, clinically patient is stable. His vital exam reveals a temperature of 98.7 pulse 84 respiration 24 blood pressure 132/49 pulse ox 94% on mechanical ventilation FiO2 30% On 07/09/2022 patient was seen and examined in the ICU currently he is on mechanical ventilation assist control rate of 24 FiO2 30% with a PEEP of 5, he is off propofol, he is awake and tries to answer questions with yes or no by moving his head he is moving his hands there has been a significant drop in his platelet count yesterday and today, I will check heparin induced antibodies and hold Lovenox for today, I have contacted Dr. Barajas over the phone and asked if he can switch Zosyn to a different antibiotic, otherwise patient is stable will continue to monitor closely. On 07/10/2022 patient was seen and examined in the ICU he is intubated sedated maintained on mechanical ventilation, he is on assist control rate of 24 FiO2 30% with a PEEP of 5 at this time platelet count is down to 41 Zosyn was switched yesterday by Dr. Barajas to Cefepime, heparin induced antibodies are still pending consult for hematology requested in regard to thrombocytopenia, patient is also having episodes of atrial fibrillation during dialysis he has bradycardia with a heart rate of 49 consultation for cardiology will be initiated otherwise patient is stable without significant change since yesterday. On 07/11/2022 patient was seen and examined in the ICU he is extubated entertained on oxygen via nasal cannula patient is alert and oriented and answering questions appropriately he is complaining of generalized weakness and generalized pain otherwise he denies any complaint On 07/12/2022 patient was seen and examined in the ICU he is extubated maintained on oxygen via nasal cannula, he is alert and oriented in no distress he is complaining of generalized weakness and generalized pain otherwise he denies any complaint On 07/13/2022 patient was seen and examined in the ICU, he is alert and oriented 3 in no distress there is no fever or chills no headache or dizziness no chest pain no shortness of breath no cough no nausea or vomiting no abdominal pain no diarrhea no blood in the stools he has a Russo catheter in he is complaining of right wrist pain with check x-ray he is also complaining of generalized weakness On 07/14/2022 patient was seen and examined in the ICU, he is alert and oriented 3 in no distress , he is complaining of pain in the right wrist area , otherwise he denies any complaints there is no fever or chills no headache or dizziness no chest pain no shortness of breath no cough no nausea or vomiting no abdominal pain no diarrhea no blood in the stools he has a Russo catheter in he is complaining of right wrist pain with check x-ray he is also complaining of generalized weakness. On 07/15/2022 patient was seen and examined in the ICU, he is alert and oriented 3 in no distress , there is no fever or chills no headache or dizziness no chest pain no shortness of breath no cough no nausea or vomiting no abdominal pa in no diarrhea no blood in the stools he has a Russo catheter in he is complaining of right wrist pain with check x-ray he is also complaining of generalized weakness. Objective - Vital Signs Vital signs: Vital Signs Temp 98.2 F 07/15/22 12:57 Pulse 68 07/15/22 12:57 Resp 12 07/15/22 12:57 BP 119/64 07/15/22 12:57 Pulse Ox 95 07/15/22 12:57 FiO2 30 07/11/22 20:00 Intake & Output 07/14/22 07/15/22 07/15/22 18:59 06:59 18:59 Intake Total 170 480 Output Total 650 450 Balance -480 30 Weight 108.7 kg Intake: IV 170 0.9 @ 10 120 Cefepime 1 gm In Sodium 50 Chloride 0.9% 50 ml @ 12. 5 mls/hr IVPB Q12HR [facility] Rx#:[id number] Oral 480 Output: Urine 650 450 Other: Voiding Method Indwelling Catheter Indwelling Catheter Indwelling Catheter ABP, PAP, CO, CI - Last Documented Arterial Blood Pressure 103/47 - Exam In general patient is alert and responsive in no apparent distress HEENT head normocephalic and atraumatic Neck is supple no JVD no goiter no lymphadenopathy no carotid bruit Chest examination is clear to auscultation no crackles no wheezing Cardiac exam reveals regular heart sounds S1 and S2 no gallops no murmurs Abdomen is distended with generalized tenderness, no organomegaly Extremity exam reveals no edema no cyanosis or clubbing Neurological examination reveals no gross focal deficits - Labs CBC & Chem 7: 07/16/22 05:52 07/16/22 05:52 Labs: Abnormal Lab Results - Last 24 Hours (Table) 07/15/22 07/15/22 07/15/22 Range/Units 07:13 07:13 12:33 RBC 3.41 L (4.30-5.90) m/uL Hgb 10.8 L (13.0-17.5) gm/dL Hct 33.6 L (39.0-53.0) % Plt Count 64 L 70 L (150-450) k/uL PT (9.0-12.0) sec INR (<1.2) Potassium 3.2 L (3.5-5.1) mmol/L BUN 88 H (9-20) mg/dL Creatinine 4.89 H (0.66-1.25) mg/dL Calcium 8.3 L (8.4-10.2) mg/dL Total Bilirubin 1.6 H (0.2-1.3) mg/dL AST 118 H (17-59) U/L ALT 122 H (4-49) U/L Alkaline Phosphatase 167 H (38-126) U/L Albumin 3.1 L (3.5-5.0) g/dL 07/15/22 Range/Units 12:33 RBC (4.30-5.90) m/uL Hgb (13.0-17.5) gm/dL Hct (39.0-53.0) % Plt Count (150-450) k/uL PT 16.5 H (9.0-12.0) sec INR 1.6 H (<1.2) Potassium (3.5-5.1) mmol/L BUN (9-20) mg/dL Creatinine (0.66-1.25) mg/dL Calcium (8.4-10.2) mg/dL Total Bilirubin (0.2-1.3) mg/dL AST (17-59) U/L ALT (4-49) U/L Alkaline Phosphatase (38-126) U/L Albumin (3.5-5.0) g/dL Assessment and Plan Plan: Mental status changes, cause is unclear could be related to overdose of narcotic Leukocytosis, no clear source of infection, chest x-ray and urine analysis don't show any clear evidence of infection, patient received IV steroids in the EMS and in the emergency room, will check lactic acid level and monitor CBC Acute exacerbation of COPD with wheezing on presentation, he was started on IV Solu-Medrol in the emergency room, he is on inhaled bronchodilators Evidence of acute kidney injury was elevated BUN and creatinine patient was started on IV fluid, nephrology consultation was requested Abdominal ascites, status post paracentesis 06/30/2022 with 3.5 L of fluid removed, Evidence of liver cirrhosis Mild elevation in troponin level will monitor Underlying history of hypertension Underlying history of hypothyroidism Underlying history of depression with anxiety disorder Underlying history of vitamin D deficiency Underlying history of degenerative disc disease with chronic back pain maintained on narcotics for pain management Underlying history of gastroesophageal reflux disease At this time patient is admitted to telemetry floor Will check d-dimer check lactic acid recheck CBC and CMP Continue with IV fluid and recheck renal function Consult nephrology
--- NOTE | 2022-07-16 12:41 | P.PN ---
Subjective Progress Note Date: 07/16/22 Ag Souza, is a 67-year-old male who presented to [facility] emergency room after having a multiple falls at home, has significant mental status changes with somnolence and poor responsiveness, history per his , over the last 24 hours patient has been not feeling well, he fell twice at home, on the second time she was not able to wake him up and get him up from the floor through the bed, she called EMS and he was brought into emergency room. He was evaluated in the emergency room vital examination on presentation revealed a temperature of 97.3 pulse 82 respiration 16 blood pressure 121/67 pulse ox 97% on room air Laboratory data revealed a white blood count of 23.2 hemoglobin 14.4 platelet count 98,000 sodium 129 potassium 4.9 chloride 96 CO2 25 BUN 51 creatinine 2.24 troponin level was 0.02 COVID-19 testing was negative Testing in the emergency room revealed chest x-ray done in the emergency room did not reveal significant abnormality. Patient has a known history of degenerative disc disease with chronic pain maintained on narcotics for pain management he was given Narcan in the emergency room which led to improvement in his mental status. Patient was admitted to medical floor for further evaluation and treatment. On 06/22/2022 patient was seen and examined on the telemetry floor he is still somnolent, agitated, pulling on his IV line, he was started through the night on IV Ativan, vital examination reveals a temperature of 98.4 pulse 132 respiration 24 blood pressure 172/91 pulse ox 96% on 2 L nasal cannula, white blood count is 21.9 hemoglobin 14.8 platelet count 118 d-dimer was elevated at 2.12 at this time will start patient on IV heparin high-intensity for possible pulmonary embolism, his kidney function is still elevated, will defer computed tomography scan this time, he is not cooperative to proceed with VQ scan, will continue with IV fluid, nephrology consultation and infectious disease consultation were requested. On 06/23/2022 patient was seen and examined in the ICU he is more alert and oriented today vital exam reveals a temperature of 98.2 pulse 86 respiration 23 blood pressure 138/79 pulse ox 93% on 2 L nasal cannula white blood count is down to 15.4 hemoglobin 13.2 platelet count 125 kidney function improved with BUN at 66 and creatinine at 0.89 kidney ultrasound was done and revealed no evidence of renal stones or obstruction, CT angiogram of the chest was done and there was no evidence of pulmonary embolism, blood culture were positive for Streptococcus group b , patient is currently maintained on IV Unasyn, IV vanc omycin and IV acyclovir, cardiology, pulmonary, nephrology, neurology and infectious disease are following On 06/24/2022 patient was seen and examined in the ICU he is more alert and oriented today kidney ultrasound was done and revealed no evidence of renal stones or obstruction, CT angiogram of the chest was done and there was no evidence of pulmonary embolism, blood culture were positive for Streptococcus group b , patient is currently maintained on IV Unasyn, IV vancomycin and IV acyclovir, cardiology, pulmonary, nephrology, neurology and infectious disease are following. Patient had a maroon colored stools through the night, GI consultation is not available this week, surgical consultation was requested for evaluation for possible GI bleed On 06/25/2022 patient was seen and examined in the ICU, he is more alert and responsive today, there is no fever or chills no headache or dizziness no chest pain no shortness of breath no cough no nausea or vomiting no abdominal pain no diarrhea and no urinary symptoms. IV heparin has been discontinued, at this time will start subcu Lovenox for DVT prophylaxis, he remains on IV antibiotics cefazolin 2 g IV every 8 hours. On 06/26/2022 patient was seen and examined in the ICU he is alert and oriented 3 in no apparent distress he is complaining of abdominal discomfort otherwise he denies any complaint at this time there is no fever or chills no headache or dizziness no chest pain no shortness of breath no cough no nausea or vomiting no diarrhea no blood in the stools no burning with urination no frequency or urgency and no hematuria. On 06/27/2022 patient was seen and examined on in the ICU he is alert and oriented 3, he is feeling better, he had multiple bowel movements and his abdominal pain has improved, he is still complaining of difficulty sleeping at night otherwise he denies any complaints there is no fever or chills no headache or dizziness no chest pain no shortness of breath no cough no nausea or vomiting no abdominal pain no diarrhea no blood in the stools no burning with urination no frequency or urgency and no hematuria. On 06/28/2022 patient was seen and examined on the medical floor he is alert and oriented 3 in no distress there is no fever or chills no headache or dizziness no chest pain no shortness of breath no cough no nausea or vomiting no abdominal pain no diarrhea, no blood in the stools no burning with urination no frequency or urgency and no hematuria patient has generalized weakness he is improving gradually will continue to follow closely physical therapy is following On 06/29/2022 patient was seen and examined on the medical floor he is alert and oriented 3 in no apparent distress there is no fever or chills no headache or dizziness no chest pain no shortness of breath no cough no nausea or vomiting he is complaining of abdominal discomfort with abdominal distention no diarrhea or constipation no blood in the stools no burning with urination no frequency or urgency and no hematuria. At this time patient is scheduled for computed tomography scan of the abdomen and pelvis will continue to monitor closely. On 06/30/2022 patient was seen and examined on the telemetry floor he is alert and oriented 3 in no apparent distress he is complaining now of severe neck gina n and back pain and requesting [place], patient underwent paracentesis today, 3.5 L of fluid were removed, otherwise patient denies any other symptoms there is no fever or chills no headache or dizziness no chest pain no shortness of breath no cough no nausea or vomiting no abdominal pain no diarrhea and no urinary symptoms On 07/01/2022 patient was seen and examined on the medical floor he is alert and oriented 3 in no apparent distress he is complaining of abdominal discomfort and distention otherwise he denies any complaints at this time there is no fever or chills no headache or dizziness no chest pain no shortness of breath no cough no nausea or vomiting no diarrhea no blood in the stools no burning with urination no frequency or urgency and no hematuria On 07/02/2022 patient was seen and examined on the medical floor he is alert and oriented 3 in no apparent distress he is complaining of abdominal discomfort and distention, he is complaining of bilateral hip pain, he received 1 dose of lactulose and had multiple episodes of diarrhea afterwards lactulose was discontinued, otherwise he denies any complaints at this time there is no fever or chills no headache or dizziness no chest pain no shortness of breath no cough no nausea or vomiting no blood in the stools no burning with urination no frequency or urgency and no hematuria. On 07/03/2022 patient was seen and examined the medical he is alert and oriented he is complaining of abdominal distention was discomfort and shortness of breath otherwise he denies any complaints there is no fever or chills no headache or dizziness no chest pain no cough no nausea or vomiting no urinary symptoms On 07/04/2022 patient was seen and examined in the ICU he is more lethargic today he was started on BiPAP and transferred to ICU today ammonia level is elevated at 38 there is no fever or chills no headache or dizziness no chest pain patient has significant distention in the abdomen, no nausea or vomiting no diarrhea, Russo catheter is in. On 07/05/2022 patient was seen and examined in the ICU at this time he is intubated sedated maintained on mechanical ventilation, currently he is on assist control rate of 20 to FiO2 50% and PEEP of 5 he had a dialysis catheter placed and a session of hemodialysis is scheduled for this afternoon, patient is maintained on norepinephrine drip, white blood count is up to 25,000 hemoglobin is 11 BUN is up to 78 and creatinine 2.47 patient is maintained on IV Zosyn infectious disease are following, prognosis is guarded will continue with aggressive management at this time and sister are at the bedside and are aware of patient's condition. On 07/06/2022 patient was seen and examined in the ICU he is intubated sedated maintained on mechanical ventilation assist control rate 22 FiO2 50% with PEEP of 5 he was started on hemodialysis yesterday he is still IV antibiotic and IV fluid and norepinephrine temperature of 97.7 pulse 96 respiration 24 blood pressure 128/48 sodium 135 potassium 4.4 chloride 101 CO2 22 BUN 78 creatinine 3.19 white blood count 17.4 hemoglobin 10.5 platelet count 167 On 07/07/2022 patient was seen and examined in the ICU he is intubated sedated maintained on mechanical ventilation, he is maintained on assist control FiO2 40% feet 058 arterial blood gas is improving is maintained on TPN he is maintained on IV antibiotics he is maintained on hemodialysis vital exam reveals a temperature of 97.2 pulse 75 respiration 24 blood pressure 128/48 pulse ox 100% BUN is 63 creatinine 2.86 On 07/08/2022 patient was seen and examined in the ICU he is intubated sedated maintained on mechanical ventilation he is maintained on norepinephrine for pressure support, he is maintained on IV Zosyn, he was started on hemodialysis, clinically patient is stable. His vital exam reveals a temperature of 98.7 pulse 84 respiration 24 blood pressure 132/49 pulse ox 94% on mechanical ventilation FiO2 30% On 07/09/2022 patient was seen and examined in the ICU currently he is on mechanical ventilation assist control rate of 24 FiO2 30% with a PEEP of 5, he is off propofol, he is awake and tries to answer questions with yes or no by moving his head he is moving his hands there has been a significant drop in his platelet count yesterday and today, I will check heparin induced antibodies and hold Lovenox for today, I have contacted Dr. Barajas over the phone and asked if he can switch Zosyn to a different antibiotic, otherwise patient is stable will continue to monitor closely. On 07/10/2022 patient was seen and examined in the ICU he is intubated sedated maintained on mechanical ventilation, he is on assist control rate of 24 FiO2 30% with a PEEP of 5 at this time platelet count is down to 41 Zosyn was switched yesterday by Dr. Barajas to Cefepime, heparin induced antibodies are still pending consult for hematology requested in regard to thrombocytopenia, patient is also having episodes of atrial fibrillation during dialysis he has bradycardia with a heart rate of 49 consultation for cardiology will be initiated otherwise patient is stable without significant change since yesterday. On 07/11/2022 patient was seen and examined in the ICU he is extubated entertained on oxygen via nasal cannula patient is alert and oriented and answering questions appropriately he is complaining of generalized weakness and generalized pain otherwise he denies any complaint On 07/12/2022 patient was seen and examined in the ICU he is extubated maintained on oxygen via nasal cannula, he is alert and oriented in no distress he is complaining of generalized weakness and generalized pain otherwise he denies any complaint On 07/13/2022 patient was seen and examined in the ICU, he is alert and oriented 3 in no distress there is no fever or chills no headache or dizziness no chest pain no shortness of breath no cough no nausea or vomiting no abdominal pain no diarrhea no blood in the stools he has a Russo catheter in he is complaining of right wrist pain with check x-ray he is also complaining of generalized weakness On 07/14/2022 patient was seen and examined in the ICU, he is alert and oriented 3 in no distress , he is complaining of pain in the right wrist area , otherwise he denies any complaints there is no fever or chills no headache or dizziness no chest pain no shortness of breath no cough no nausea or vomiting no abdominal pain no diarrhea no blood in the stools he has a Russo catheter in he is complaining of right wrist pain with check x-ray he is also complaining of generalized weakness. On 07/15/2022 patient was seen and examined in the ICU, he is alert and oriented 3 in no distress , there is no fever or chills no headache or dizziness no chest pain no shortness of breath no cough no nausea or vomiting no abdominal pa in no diarrhea no blood in the stools he has a Russo catheter in he is complaining of right wrist pain with check x-ray he is also complaining of generalized weakness. On 07/16/2022 patient was seen and examined on the medical floor, he is alert and oriented 3 in no apparent distress, there is no fever or chills no headache or dizziness no chest pain no shortness of breath no cough no nausea or vomiting no abdominal pain no diarrhea and no urinary symptoms, he has good urine output, nephrology are following and no hemodialysis is recommended at this time, physical therapy and occupational therapy are following. Objective - Vital Signs Vital signs: Vital Signs Temp 98.5 F 07/16/22 04:44 Pulse 70 07/16/22 11:27 Resp 18 07/16/22 04:44 BP 109/58 07/16/22 04:44 Pulse Ox 98 07/16/22 07:54 FiO2 30 07/11/22 20:00 Intake & Output 07/15/22 07/16/22 07/16/22 18:59 06:59 18:59 Intake Total 360 360 180 Output Total 775 Balance -415 360 180 Weight 107 kg Intake: Oral 360 360 180 Output: Urine 775 Other: Voiding Method Indwelling Catheter Indwelling Catheter # Bowel Movements 1 ABP, PAP, CO, CI - Last Documented Arterial Blood Pressure 103/47 - Exam In general patient is alert and responsive in no apparent distress HEENT head normocephalic and atraumatic Neck is supple no JVD no goiter no lymphadenopathy no carotid bruit Chest examination is clear to auscultation no crackles no wheezing Cardiac exam reveals regular heart sounds S1 and S2 no gallops no murmurs Abdomen is distended with generalized tenderness, no organomegaly Extremity exam reveals no edema no cyanosis or clubbing Neurological examination reveals no gross focal deficits - Labs CBC & Chem 7: 07/16/22 05:52 07/16/22 05:52 Labs: Abnormal Lab Results - Last 24 Hours (Table) 07/15/22 07/15/22 07/15/22 Range/Units 07:13 12:33 12:33 RBC (4.30-5.90) m/uL Hgb (13.0-17.5) gm/dL Hct (39.0-53.0) % MCV (80.0-100.0) fL Plt Count 64 L 70 L (150-450) k/uL PT 16.5 H (9.0-12.0) sec INR 1.6 H (<1.2) Sodium (137-145) mmol/L Potassium (3.5-5.1) mmol/L Carbon Dioxide (22-30) mmol/L BUN (9-20) mg/dL Creatinine (0.66-1.25) mg/dL Total Bilirubin (0.2-1.3) mg/dL AST (17-59) U/L ALT (4-49) U/L Alkaline Phosphatase (38-126) U/L Total Protein (6.3-8.2) g/dL Albumin (3.5-5.0) g/dL 07/16/22 07/16/22 07/16/22 Range/Units 00:30 05:52 05:52 RBC 3.02 L (4.30-5.90) m/uL Hgb 9.5 L (13.0-17.5) gm/dL Hct 30.4 L (39.0-53.0) % MCV 100.7 H (80.0-100.0) fL Plt Count 65 L (150-450) k/uL PT (9.0-12.0) sec INR (<1.2) Sodium 136 L (137-145) mmol/L Potassium 3.3 L 3.3 L (3.5-5.1) mmol/L Carbon Dioxide 21 L (22-30) mmol/L BUN 95 H (9-20) mg/dL Creatinine 5.75 H (0.66-1.25) mg/dL Total Bilirubin 1.5 H (0.2-1.3) mg/dL AST 105 H (17-59) U/L ALT 107 H (4-49) U/L Alkaline Phosphatase 133 H (38-126) U/L Total Protein 6.1 L (6.3-8.2) g/dL Albumin 2.7 L (3.5-5.0) g/dL Microbiology - Last 24 Hours (Table) 06/29/22 15:12 Fungal Culture - Preliminary Ascites Fluid Assessment and Plan Plan: Mental status changes, cause is unclear could be related to overdose of narcotic Leukocytosis, no clear source of infection, chest x-ray and urine analysis don't show any clear evidence of infection, patient received IV steroids in the EMS and in the emergency room, will check lactic acid level and monitor CBC Acute exacerbation of COPD with wheezing on presentation, he was started on IV Solu-Medrol in the emergency room, he is on inhaled bronchodilators Evidence of acute kidney injury was elevated BUN and creatinine patient was started on IV fluid, nephrology consultation was requested Abdominal ascites, status post paracentesis 06/30/2022 with 3.5 L of fluid removed, Evidence of liver cirrhosis Mild elevation in troponin level will monitor Underlying history of hypertension Underlying history of hypothyroidism Underlying history of depression with anxiety disorder Underlying history of vitamin D deficiency Underlying history of degenerative disc disease with chronic back pain maintained on narcotics for pain management Underlying history of gastroesophageal reflux disease At this time patient is admitted to telemetry floor Will check d-dimer check lactic acid recheck CBC and CMP Continue with IV fluid and recheck renal function Consult nephrology
[2022-07-16 14:33] LABS: Basophils # (M) 0.08 k/uL (0-0.2); Eosinophils # (M) 0.58 k/uL (0-0.7); Lymphocytes # (M) 1.33 k/uL (1.0-4.8); Monocytes # (M) 0.66 k/uL (0-1.0); Neutrophils # (M) 5.64 k/uL (1.3-7.7); Neutrophils % (M) 68 %; Nucleated Red Blood Cells 0 /100 WBC (0-0); Total Cells Counted 100
[2022-07-16 17:19] LABS: % Iron Saturation 16.02 (15.00-50.00)
[2022-07-16] MEDS: traZODone HCL 50 MG TAB PO SCH (20:54)
[2022-07-16] MEDS: CALCIUM CARBONATE 500 MG CHEWABLE PO PRN (22:28)
--- NOTE | 2022-07-16 23:43 | P.PN ---
Subjective Progress Note Date: 07/16/22 Principal diagnosis: Bacteremia Patient is a 67 year old male presenting to the hospital in mental status changes and multiple falls did have a low-grade fever and elevated white count now with evidence of bacteremia. Patient is status post paracentesis with removal of 3 L of ascitic fluid completed on 06/30/2022, the patient did have left groin dialysis catheter placement and has been started on dialysis as of 07/05/2022, the patient has been extubated as of 07/11/2022 On today's evaluation that is 07/16/2022, the patient remains to be afebrile, the patient is a breathing comfortably on room air, the patient denies having any chest pain , the patient did have some cough but not bringing up any sputum no vomiting no abdominal pain no diarrhea Objective - Vital Signs Vital signs: Vital Signs Temp 98.6 F 07/16/22 12:25 Pulse 65 07/16/22 15:35 Resp 18 07/16/22 12:25 BP 93/44 07/16/22 12:25 Pulse Ox 95 07/16/22 15:26 FiO2 30 07/11/22 20:00 Intake & Output 07/15/22 07/16/22 07/16/22 18:59 06:59 18:59 Intake Total 360 360 180 Output Total 775 1 Balance -415 360 179 Weight 107 kg Intake: Oral 360 360 180 Output: Urine 775 Stool 1 Other: Voiding Method Indwelling Catheter Indwelling Catheter Indwelling Catheter # Bowel Movements 1 ABP, PAP, CO, CI - Last Documented Arterial Blood Pressure 103/47 - Exam GENERAL DESCRIPTION: An elderly male lying in bed in no distress RESPIRATORY SYSTEM: Unlabored breathing , decreased breath sounds at bases HEART: S1 S2 regular rate and rhythm , ABDOMEN: Soft , no tenderness EXTREMITIES: No edema feet - Labs CBC & Chem 7: 07/16/22 05:52 07/16/22 05:52 Labs: Abnormal Lab Results - Last 24 Hours (Table) 07/16/22 07/16/22 07/16/22 Range/Units 00:30 05:52 05:52 RBC 3.02 L (4.30-5.90) m/uL Hgb 9.5 L (13.0-17.5) gm/dL Hct 30.4 L (39.0-53.0) % MCV 100.7 H (80.0-100.0) fL Plt Count 65 L (150-450) k/uL Sodium 136 L (137-145) mmol/L Potassium 3.3 L 3.3 L (3.5-5.1) mmol/L Carbon Dioxide 21 L (22-30) mmol/L BUN 95 H (9-20) mg/dL Creatinine 5.75 H (0.66-1.25) mg/dL Total Bilirubin 1.5 H (0.2-1.3) mg/dL AST 105 H (17-59) U/L ALT 107 H (4-49) U/L Alkaline Phosphatase 133 H (38-126) U/L Total Protein 6.1 L (6.3-8.2) g/dL Albumin 2.7 L (3.5-5.0) g/dL Microbiology - Last 24 Hours (Table) 06/29/22 15:12 Fungal Culture - Preliminary Ascites Fluid Assessment and Plan (1) Bacteremia Current Visit: Yes Status: Acute Code(s): R78.81 - BACTEREMIA SNOMED Code(s): 4562732 Plan: 1patient with sepsis in this patient who did have a fever elevated white count elevated lactic acid now with evidence of gram-positive bacteremia with a source possible aspiration pneumonia as repeat x-ray did showed increasing density left lower lobe as the patient currently do not have any other obvious focus is abdominal soft on clinical examination no evidence of any joint swelling or cellulitis was noticed. 2blood cultures has been finalized as Streptococcus agalactiae repeat blood cultures have been negative so far 3-repeat CT with evidence of ascites and possible colitis in the left lower quadrant area, patient is status post paracentesis, white count was only 59 and cultures are so far negative 4- Patient with worsening respiratory status requiring intubation possible fluid overload plus minus a component of pneumonia questionable aspiration sputum culture has been obtained which grew Rosanne more likely colonizer, 5-Patient white count has normalized however the patient has developed significant thrombocytopenia for which the patient was taken off the Zosyn , the patient did improvement in his platelet count 6- patient has shown some clinical improvement, patient to to continue with a short course of oral Augmentin and monitor his clinical course closely Time with Patient: Less than 30
[2022-07-17] MEDS: ACETAMINOPHEN TAB 500 MG TAB PO PRN ×2 (01:39→08:59)
[2022-07-17] MEDS: IPRATROPIUM-ALBUTEROL 3 ML NEB INHALATION SCH ×5 (04:15→19:38)
[2022-07-17] MEDS ORDERED: IPRATROPIUM-ALBUTEROL 3 ML NEB INHALATION PRN (04:19)
[2022-07-17] MEDS: LEVOTHYROXINE 88 MCG TAB PO SCH (04:26)
[2022-07-17] MEDS ORDERED: FUROSEMIDE 10 MG/ML 10 ML VIAL IV STA (08:37)
[2022-07-17] MEDS: METOPROLOL SUCCINATE (ER) 25 MG TAB.ER.24H PO SCH (08:54)
[2022-07-17] MEDS: SODIUM BICARBONATE TAB 650 MG TAB PO SCH ×2 (08:55→20:23)
[2022-07-17] MEDS: AMOXIC-POT CLAV 500-125 MG 1 EACH TAB PO SCH ×2 (08:55→20:23)
[2022-07-17] MEDS: ATORVASTATIN 40 MG TAB PO SCH (08:55)
[2022-07-17] MEDS: NICOTINE 7MG/24HR PATCH TRANSDERM SCH (08:56)
[2022-07-17] MEDS: PANTOPRAZOLE 40 MG/10 ML VIAL IVP SCH ×2 (08:59→20:22)
--- NOTE | 2022-07-17 10:14 | P.PN ---
Subjective Progress Note Date: 07/17/22 Principal diagnosis: Acute mental status changes. Pulmonary consultation dated 06/22/2022. 59-year-old male seen in the emergency department, on June 21. He apparently presented with mental status changes. In addition, he apparently was having multiple falls at home. The patient was seen and evaluated, and admitted to the hospital with a diagnosis of mental status changes, opiate dependence, COPD, acute kidney injury, and he went to the general medical floor. Today, a rapid response was called on this patient, and the patient was transferred down to the intensive care unit. Currently he is on 3 L nasal cannula. He is getting saline at 70 mL an hour, and dexmedetomidine at 1 mcg/kg/h. He apparently has a history of asthma, CVA, GERD, hyperlipidemia, hypertension, echo staxis, anxiety, and chronic tobacco dependence. Labs today include a white count of 21.9, hemoglobin 14.8, hematocrit 45.6, and a platelet count of 118,000. D- dimer is 2.12. PT is 15 with an INR 1.4. Blood gases, show pO2 of 117, pCO2 31, pH is 7.42. That was on 50% oxygen. Sodium 131, potassium 4.9, chlorides 100, CO2 22, BUN 52, and creatinine 1.28. Lactic acid was elevated at 5.9. I've asked the nurse to give the patient a liter of lactated Ringer's. Troponin was 0.237. Urine is got trace protein and trace glucose. Leukocyte esterase and nitrate were both negative. Drug screen was positive for opiates. Nasal swab testing was negative for coronavirus. Chest x-ray on admission was negative for an acute process. Head CT initially did not show anything acute. A repeat chest x-ray today showed increased interstitial densities in the left lower lobe. Progress note dated 06/23/2022. This is a 59-year-old male who was seen yesterday in consultation. He was initially seen on June 21 in the emergency room with mental status changes. The patient was transferred to the intensive care unit, because of worsening mental status, and some cardiovascular issues. Currently, the patient is on 3 L nasal cannula. He is getting lactated Ringer's at 75 mL an hour. He is on vancomycin and Unasyn. Was on Rocephin. He has been seen by infectious diseases and neurology. His CT angiogram was negative. Initially heparin was discontinued, but because of EKG changes, he'll be restarted. He is also on dexmedetomidine at 0.3 mcg/kg/h. I did speak to neurology about possible viral encephalitis, and we discussed the possibility of lumbar puncture, and acyclovir IV. White count 15.4, hemoglobin 13.2, hematocrit 41.5, and platelet count 225,000. Sodium, potassium, chloride, CO2, are all normal. BUN 66, and creatinine 0.89. Group B streptococci are in the blood cultures. Reevaluated today on 07/08/22, remains in the ICU intubated and mechanically ventilated. Patient is now on assist control rate of 24-500 FiO2 30% PEEP of 5 ABG showed a pO2 of 75 pCO2 43 pH of 7.42 patient remains on 30% FiO2. He is on TPN at 47 mL/h is also on Zosyn empirically. His abdomen remains distended and the patient continues to have ascites, I'm recommending interventional radiology to evaluate for possible paracentesis again on this patient. Patient has been off propofol since yesterday, he is arousable, opens his eyes, wiggling his toes, but remains very generally weak. We'll continue to hold propofol. In the meantime patient is not quite ready for weaning trials, but that is to be considered down the line. Patient remains on dialysis. Labs today showed relat ively normal electrolytes, BMI 57 creatinine 2.88. CBC is relatively unremarkable. Chest x-ray continues to show mild interstitial edema, and small left and right pleural effusion Reevaluated today on 07/09/22, remains in the ICU intubated mechanically ventilated patient is off propofol now for almost 2 days. Patient is arousable and follows very simple instructions like squeezing hands and wiggling toes however he is extremely generally weak. He is on assist control rate of 24th of volume 500 FiO2 30% PEEP of 5. ABG showed a pO2 of 78 pCO2 38 pH of 7.44 Patient is on small dose of norepinephrine at 0.02 mcg/kg/m is also on TPN at 47 mL/h. Chest x-ray continues to show improvement in his infiltrates/edema , patient remains on hemodialysis he had dialysis yesterday and 3.3 L were taken off. Patient may have a repeat paracentesis next Monday. WBC count today is 8.1 hemoglobin is 9.2. Basic metabolic profile is normal except for low potassium of 3.0 BUN is 55 creatinine 3.03. Today the patient would have a trial of pressure support and CPAP. Reevaluated today on 07/10/22, patient remains in the ICU intubated and mechanically ventilated, remains off propofol, remains on assist control rate of 24 to volume 500 FiO2 30% PEEP of 5, ABG showed a pO2 of 90 pCO2 of 37 pH of 7.47, CBC is relatively unremarkable. Basic metabolic profile is normal BUN is 75 creatinine 3.94, chest x-ray continues to show steady improvement in his interstitial edema and infiltrates. Clinically the patient seems to be more awake today, he remains off propofol, and I will go ahead and give the patient a trial of weaning if possible today. However after initiation of pressure support and CPAP, I was notified by the respiratory therapist that the patient has apnea episodes, and I recommended that we go on a pressure support of 10, IMV rate of 10, and continue same FiO2, continue same PEEP. The plan is to gradually go down the IMV rate by 2 every 2 hours. And hopefully we could avoid any further apnea episodes and may even consider extubating the patient if he tolerates this modality otherwise may keep him again on mechanical ventilation overnight with IMV and pressure support Progress note dated 07/11/2022. This is a 67-year-old male who was admitted back on June 21, for mental status changes. The patient was intubated on July 04, and remains on the mechanical ventilator. I saw him initially back on June 22 and . Currently, he is on the SIMV mode, rate 6, tidal volume 500, FiO2 30%, and PEEP of 5. Blood gases show pO2 of 88, pCO2 42, 7.4. The patient's getting saline at 10 mL an hour. Norepinephrine has been weaned off. Is getting Nepro at 10 mL an hour. He is also been weaned off. Microbiologic studies are negative. The patient remains on cefepime. The patient is apparently going to have a paracentesis performed by interventional radiology today. In addition, we'll get a repeat chest x-ray, and sometime later today, give the patient a spontaneous breathing trial. 6, 9.6, hematocrit 30.4, platelet count 31,000. PT is 12.9, with an INR 1.2. Sodium 133, potassium 4.1, chlorides 96, CO2 24, anion gap 13, BUN 92, and creatinine 4.67. AST is 152 with an ALT of 161. Blood cultures back from June 22 show evidence of group B streptococci. Chest x-ray from today shows relatively clear lung amado. Progress note dated 07/12/2022. 67-year-old male who was admitted on June 21, for mental status changes. He was intubated on July 04, for respiratory failure. Yesterday, July 11, the patient was extubated. He is currently on 2 L nasal cannula. His mental status is improving. He is getting a saline IV at 10 mL an hour. White count 7.5, hemoglobin 9.8, hematocrit 31.5, and platelet count 31,000. Sodium 137, potassium 4.3, chlorides 102, CO2 22, anion gap 13, BUN 67, and creatinine 3.73. Albumin is 2.8. Chest x-ray shows bilateral infiltrates, likely because the patient is not on positive pressure ventilation anymore. Progress note dated 07/13/2022. 67-year-old male was admitted back on June 21, for mental status changes. He was intubated for respiratory failure on July 04. On July 11, he was successfully extubated. He is currently on 2 L. Is getting saline at 20 mL an hour. The patient's mental status is much improved. Labs today include a white count of 8.6, hemoglobin 9.5, hematocrit 29.5, and a platelet count 36,000. Sodium 135, potassium, chloride, CO2, anion gap, all normal. BUN was 70 with a creatinine of 4.47. He is being followed by nephrology. Albumin is 2.8. Recent microbiologic data is negative. No chest x-ray today. The patient had an uneventful night, and in my opinion, could be transferred to the general medical or without telemetry. Progress note dated 07/13/2022. 67-year-old male who was admitted back on June 21 for mental status changes. He was intubated for respiratory failure on July 04. On July 11, he was successfully extubated. He is currently on room air. Saturations are 99%. He's not receiving any IV fluids. The patient can be transferred to a general medical floor, without telemetry. His mental status continues to improve. White count 9, hemoglobin 10.4, hematocrit 33.7, and platelet count 58,000. Sodium 135, potassium 4, chlorides 101, CO2 20, BUN 84, and creatinine 4.56. Albumin is 3. No recent chest x-ray. The patient currently is on cefepime, although, I don't know why. I've asked the nurse to call the infectious disease doctor, and inquire. Progress note dated 07/15/2022. 67-year-old male who was admitted back on June 21 for mental status changes, and respiratory failure. The patient was intubated on July 04, and successfully extubated on July 11. He is currently in the intensive care unit, room 254. He's currently on room air. At nighttime, he does sleep with 2 L. He's not receiving any IV fluids. The patient could be transferred to the general medical floor, without telemetry. Infectious disease doctor discontinued cefepime, and place the patient on Augmentin. White count 9.8, he will been 10.8, hematocrit 33.6, with a platelet count that is currently pending. Sodium 137, potassium 3.2, chlorides 99, CO2 22, anion gap 16, BUN 88, with a creatinine of 4.89. This reflects a worsening pattern of renal failure. No new chest x-ray today, or new microbiologic data. Progress note dated 07/16/2022. 67-year-old male seen today in room 528. Yesterday, he was in the intensive care unit. He was admitted back on June 21 for mental status changes, and respiratory failure. He was intubated, successfully extubated on July 11. His mental status has improved on a daily basis. Currently, he's on a couple of liters. He's not receiving any IV fluids. All in all, he is doing much better. He remains on Augmentin. Today's laboratory include a white count 8.3, hemoglobin 9.5, hematocrit 30.2, and a platelet count of 65,000. Sodium 136, potassium 3.3, chlorides 100, CO2 21, anion gap 15, BUN 95, and creatinine 5.75. His kidney function continues to deteriorate, and eventually, he may need hemodialysis again. Progress note dated 07/17/2022. The patient is again seen today in room 528. The patient appears to be doing well. He remains on 2 L of oxygen. No IV fluids. He was initially admitted back on June 21 4 mental status changes, and respiratory failure. He was intub ated, on July 04, and successfully extubated on July 11. His mental status has improved on a daily basis. No new labs today. Labs from July 16 is reviewed. Microbiologic studies remain negative. Labs, x-rays, and medications are all reviewed. Objective - Vital Signs Vital signs: Vital Signs Temp 98.3 F 07/17/22 05:00 Pulse 77 07/17/22 07:56 Resp 16 07/17/22 07:39 BP 100/59 07/17/22 05:00 Pulse Ox 99 07/17/22 07:47 FiO2 30 07/11/22 20:00 Intake & Output 07/16/22 07/17/22 07/17/22 18:59 06:59 18:59 Intake Total 730 480 Output Total 521 360 1 Balance 209 120 -1 Weight 108.2 kg Intake: IV 10 0.9 @ 10 10 Oral 720 480 Output: Urine 520 360 Stool 1 1 Other: Voiding Method Indwelling Catheter Indwelling Catheter Indwelling Catheter # Bowel Movements 3 0 ABP, PAP, CO, CI - Last Documented Arterial Blood Pressure 103/47 - Exam No acute distress, awake and alert, on 2 L HEENT examination is grossly unremarkable. Neck supple. Full range of motion. No adenopathy thyromegaly or neck vein distention. Cardiovascular examination reveals regular rhythm rate. S1-S2 normal. No S3 or S4. No discernible murmur noted. Heart rate 73 bpm. Heart sounds are distant. Lungs reveal mostly clear breath sounds. Breath sounds are equal bilaterally. Scattered rhonchi are noted. No wheezes or crackles. Saturations are 99 % Abdomen soft bowel sounds are heard. No masses or tenderness. Extremities reveal some mild edema. No cyanosis or clubbing. Skin reveals some chronic venous stasis changes. Neurologic examination reveals the patient with improved mental status and aler tness. - Labs CBC & Chem 7: 07/16/22 05:52 07/16/22 05:52 Labs: Abnormal Lab Results - Last 24 Hours (Table) 07/16/22 Range/Units 05:52 Iron 41 L (65-175) ug/dL Transferrin 181.0 L (204.0-354.0) mg/dL Assessment and Plan Assessment: Acute mental status changes, rapid respiratory rate, tachycardia, and elevated lactic acid, rule out either sepsis, or a primary neurologic event, status post intubation and mechanical ventilation on 07/04/2022. The patient was successfully extubated on July 11, 2022. Ascites, status post paracentesis abdominis. Acute kidney injury, requiring hemodialysis. History of CVA. History of hypertension. History of hyperlipidemia. History of asthma. History of gastroesophageal reflux disease. History of anxiety. History of chronic back. History of epistaxis. Plan: Plan dated 06/22/2022 The patient was transferred down to the intensive care. The patient is going for a computed tomography scan of the chest, to rule out pulmonary embolism. I've asked the nurses to switch his fluids to lactated Ringer's, and give him a bolus. In addition, I've asked the nurse to consult neurology for his mental status changes. Labs, x-rays, and medications are all reviewed. Prognosis is guarded. The patient is not very active at home. Plan dated 06/23/2022. The patient is currently on vancomycin and Unasyn. Blood cultures were positive for group B streptococci. I did discuss with neurology, and LP, and also the initiation of acyclovir. The patient appears to be a bit better today than he was yesterday. He still is on dexmedetomidine though. His vital signs seem reasonably stable. CTA was negative for pulmonary embolism. He had some EKG changes and will be started back on IV heparin. We will continue to follow make recommendations where appropriate. Prognosis is very guarded. Plan dated 07/11/2022. Norepinephrine has been weaned off. TPN has also been weaned off. The patient remains on the mechanical ventilator. He's not getting any sedatives. We will attempt to do a weaning trial on him, with possible extubation. Chest x-ray will be done in advance. Also, we will await interventional radiology performing the paracentesis abdominis. Labs, x-rays, and medications are reviewed. Microbiologic studies are negative. The patient does remain on cefepime. Overall prognosis remains very guarded. Plan dated 07/12/2022. The patient was successfully extubated yesterday on July 11. Currently, he's on 2 L. Labs, x-rays, and medications are reviewed. Is getting saline at 10 mL an hour. I did speak to him briefly as to whether or not he would want go back on life support. He said he will give this some thought. No additional recommendations are made. Prognosis is guarded. Plan dated 07/13/2022. The patient was successfully extubated on July 11. He's currently on 2 L. His mental status is much improved. He had an uneventful night. Labs, chest x- ray, and medications are reviewed. The patient could be transferred out to the general medical floor without telemetry. No additional recommendations are made. Overall prognosis remains guarded. Plan dated 07/14/2022. The patient continues to show improvement. The patient's mental status is better. He's not receiving any IV fluids. He is currently on room air with saturation of 99%. The patient could be transferred to general medical floor without telemetry. We have asked the infectious disease doctor to determine whether or not the patient continues to need cefepime. Labs, x-rays, and medications are reviewed. Prognosis is certainly guarded. Plan dated 07/15/2022. Patient continues to show gradual improvement. He remains on room air. He does take oxygen at 2 L, during the nighttime hours. Infectious disease doctor discontinue cefepime, and place the patient on Augmentin. Microbiologic data are negative. Not sure what is being treated. Labs, x-rays, and medications are reviewed. Overall prognosis remains guarded. We will continue to follow make recommendations along the way. The patient could be transferred to the general medical floor, without telemetry. Plan dated 07/16/2022. The patient continues to improve. We will continue to follow the patient. No additional recommendations are made. The patient continues on antibiotics as per infectious diseases. Labs, x-rays, medications are reviewed. His mental status continues to improve on a regular basis. Overall prognosis though, remains guarded. Plan dated 07/17/2022. The patient's doing well. The patient is improving on a daily basis with his mental status. Hemodynamically, he stable. He's on 2 L, with saturations of 99%. No new labs today. He remains on Augmentin as per infectious diseases. All recent culture data is negative. We will continue to follow. Prognosis is guarded. Time with Patient: Less than 30
--- NOTE | 2022-07-17 10:32 | P.PN ---
Subjective Patient is seen in follow-up for acute kidney injury. Started on hemodialysis 07/05/2022. Last hemodialysis was 07/11/2022. Creatinine 5.75 yesterday. Feels that his abdomen is distended. Urine output documented as 775 mL an 07/16/2022 and 8) 81 mL as of today. On 2 L nasal cannula. Vital signs are stable. General: Awake. No acute distress. HEENT: On nasal cannula. LUNGS: Breath sounds decreased. HEART: Rate and Rhythm are regular. ABDOMEN: Soft, no distention. EXTREMITITES: 2+ edema. Objective - Vital Signs Vital signs: Vital Signs Temp 98.3 F 07/17/22 05:00 Pulse 77 07/17/22 07:56 Resp 16 07/17/22 07:39 BP 100/59 07/17/22 05:00 Pulse Ox 99 07/17/22 07:47 FiO2 30 07/11/22 20:00 Intake & Output 07/16/22 07/17/22 07/17/22 18:59 06:59 18:59 Intake Total 730 480 Output Total 521 360 1 Balance 209 120 -1 Weight 108.2 kg Intake: IV 10 0.9 @ 10 10 Oral 720 480 Output: Urine 520 360 Stool 1 1 Other: Voiding Method Indwelling Catheter Indwelling Catheter Indwelling Catheter # Bowel Movements 3 0 ABP, PAP, CO, CI - Last Documented Arterial Blood Pressure 103/47 - Labs CBC & Chem 7: 07/16/22 05:52 07/16/22 05:52 Labs: Abnormal Lab Results - Last 24 Hours (Table) 07/16/22 Range/Units 05:52 Iron 41 L (65-175) ug/dL Transferrin 181.0 L (204.0-354.0) mg/dL Assessment and Plan Plan: Assessment: 1. Acute kidney injury secondary to septic ATN and hypotension. Nonoliguric. Baseline creatinine near 1. Started on hemodialysis 07/05/2022 - last treatment 07/11/2022. Creatinine 5.75 yesterday. 2. Hypokalemia from diuresis. Replace. 3. Shock status post Levophed. 4. Group B strep bacteremia and ?pneumonia on antibiotics. ID following. 5. Volume overload. Improved with ultrafiltration and diuresis. Still quite edematous. 6. Liver cirrhosis. 7. Ascites status post paracentesis on 07/01/2022 to 3.6 L drained. 8. A. fib with RVR s/p Cardizem drip. Cardiology following. 9. Hyperphosphatemia secondary to acute kidney injury. Last phosphorus 5.3 dated 07/11/2022. 10. Metabolic acidosis secondary to acute kidney injury. On oral bicarbonate. 11. Anemia. Iron deficiency noted. Plan: Lasix 80 mg IV once now. Start torsemide 40 mg once daily today. Add 1500 mL fluid restriction. Check cortisol level. Potassium replaced. Add IV iron. Follow-up morning labs. Check chest x-ray and abdominal ultrasound. Continue to monitor renal function and urine output. Continue to assess daily for need for renal replacement therapy. If no improvement in renal function and urine output, will plan to initiate renal replacement therapy tomorrow.
[2022-07-17] MEDS: CALCIUM CARBONATE 500 MG CHEWABLE PO PRN (10:59)
--- NOTE | 2022-07-17 11:58 | XR ---
EXAMINATION TYPE: XR chest 1V portable DATE OF EXAM: 07/17/2022 11:45 AM COMPARISON: Chest radiographs from 07/12/2022 TECHNIQUE: XR chest 1V portable Frontal view of the chest. CLINICAL INDICATION:Male, 67 years old with history of sob , ascites; FINDINGS: Lungs/Pleura: Improved airspace opacities compared to prior There is no evidence of pleural effusion, focal consolidation, or pneumothorax. Pulmonary vascularity: Unremarkable. Heart/mediastinum: Cardiomediastinal silhouette is unremarkable. Musculoskeletal: No acute osseous pathology. IMPRESSION: Improved basilar airspace opacities suggesting atelectasis on prior.
[2022-07-17] MEDS: SODIUM FERRIC GLUCONAT-SUCROSE 125 MG in SODIUM CHLORIDE 0.9% 100 ML IVPB SCH (12:22)
[2022-07-17] MEDS: MIDODRINE 5 MG TAB PO SCH ×2 (12:25→17:38)
--- NOTE | 2022-07-17 12:38 | US ---
EXAMINATION TYPE: US abdomen limited DATE OF EXAM: 07/17/2022 COMPARISON: US CLINICAL HISTORY: Ascites. Ascites check only per RN. Ascites visualized throughout all four quadrants of the abdomen. IMPRESSION: Moderate ascites.
[2022-07-17 12:42] LABS: Magnesium 2.2 mg/dL (1.5-2.4); Phosphorus 6.4 mg/dL (2.4-5.1)
--- NOTE | 2022-07-17 15:17 | P.PN ---
Subjective Progress Note Date: 07/17/22 Principal diagnosis: Bacteremia Patient is a 67 year old male presenting to the hospital in mental status changes and multiple falls did have a low-grade fever and elevated white count now with evidence of bacteremia. Patient is status post paracentesis with removal of 3 L of ascitic fluid completed on 06/30/2022, the patient did have left groin dialysis catheter placement and has been started on dialysis as of 07/05/2022, the patient has been extubated as of 07/11/2022 On today's evaluation that is 07/17/2022, the patient continues to be afebrile, the patient is a breathing comfortably on room air, the patient denies having any chest pain , the patient did some occasional dry cough, still complaining of abdominal distention however no pain no nausea no vomiting or diarrhea Objective - Vital Signs Vital signs: Vital Signs Temp 98.9 F 07/17/22 11:12 Pulse 83 07/17/22 11:33 Resp 20 07/17/22 11:12 BP 103/60 07/17/22 11:12 Pulse Ox 99 07/17/22 11:12 FiO2 30 07/11/22 20:00 Intake & Output 07/16/22 07/17/22 07/17/22 18:59 06:59 18:59 Intake Total 730 480 Output Total 521 360 1 Balance 209 120 -1 Weight 108.2 kg Intake: IV 10 0.9 @ 10 10 Oral 720 480 Output: Urine 520 360 Stool 1 1 Other: Voiding Method Indwelling Catheter Indwelling Catheter Indwelling Catheter # Bowel Movements 3 0 ABP, PAP, CO, CI - Last Documented Arterial Blood Pressure 103/47 - Exam GENERAL DESCRIPTION: An elderly male lying in bed in no distress RESPIRATORY SYSTEM: Unlabored breathing , decreased breath sounds at bases HEART: S1 S2 regular rate and rhythm , ABDOMEN: Soft , mild distention but no tenderness EXTREMITIES: No edema feet - Labs CBC & Chem 7: 07/16/22 05:52 07/16/22 05:52 Labs: Abnormal Lab Results - Last 24 Hours (Table) 07/16/22 07/17/22 Range/Units 05:52 05:12 Phosphorus 6.4 H (2.4-5.1) mg/dL Iron 41 L (65-175) ug/dL Transferrin 181.0 L (204.0-354.0) mg/dL Assessment and Plan (1) Bacteremia Current Visit: Yes Status: Acute Code(s): R78.81 - BACTEREMIA SNOMED Code(s): 6141242 Plan: 1patient with sepsis in this patient who did have a fever elevated white count elevated lactic acid now with evidence of gram-positive bacteremia with a source possible aspiration pneumonia as repeat x-ray did showed increasing density left lower lobe as the patient currently do not have any other obvious focus is abdominal soft on clinical examination no evidence of any joint swelling or cellulitis was noticed. 2blood cultures has been finalized as Streptococcus agalactiae repeat blood cultures have been negative so far 3-repeat CT with evidence of ascites and possible colitis in the left lower quadrant area, patient is status post paracentesis, white count was only 59 and cultures are so far negative 4- Patient with worsening respiratory status requiring intubation possible fluid overload plus minus a component of pneumonia questionable aspiration sputum culture has been obtained which grew Rosanne more likely colonizer, 5-Patient white count has normalized and he did have some clinical improvement, patient to continue with oral Augmentin and monitor his clinical course closely Time with Patient: Less than 30
[2022-07-17] MEDS: TORSEMIDE 20 MG TAB PO SCH (17:42)
[2022-07-17] MEDS: traZODone HCL 50 MG TAB PO SCH ×2 (20:21→20:22)
[2022-07-17 22:23] LABS: Calcium 8.1 mg/dL (8.4-10.2); Potassium 3.5 mmol/L (3.5-5.1)
[2022-07-18] MEDS: OXYMETAZOLINE 0.05% NASL SPRAY 1 SPRAY BOTTLE NASAL SCH ×4 (06:29→18:01)
[2022-07-18] MEDS: LEVOTHYROXINE 88 MCG TAB PO SCH (06:29)
[2022-07-18 08:58] LABS: African American GFR (CKD) 9.6 (60.0-200.0); Albumin/Globulin Ratio 0.88 (1.60-3.17); Anion Gap 15.5 mmol/L (10.00-18.00); BUN/Creat Ratio 14.9 Ratio (12.00-20.00); Blood Urea Nitrogen 93.9 mg/dL (9.0-27.0); Calcium 8.6 mg/dL (8.7-10.3); Carbon Dioxide 21.5 mmol/L (20.0-27.5); Globulin 3.4 g/dL (1.6-3.3); Magnesium 2.1 mg/dL (1.5-2.4); Non-African American GFR(CKD) 8.3 (60.0-200.0); Potassium 3.8 mmol/L (3.5-5.5); Total Bilirubin 1.2 mg/dL (0.30-1.20); Total Protein 6.4 g/dL (6.2-8.2)
[2022-07-18] MEDS: MIDODRINE 5 MG TAB PO SCH ×3 (09:02→18:10)
[2022-07-18] MEDS: TORSEMIDE 20 MG TAB PO SCH (09:14)
[2022-07-18] MEDS: SODIUM BICARBONATE TAB 650 MG TAB PO SCH (09:14)
[2022-07-18] MEDS: PANTOPRAZOLE 40 MG/10 ML VIAL IVP SCH (09:14)
[2022-07-18] MEDS: NICOTINE 7MG/24HR PATCH TRANSDERM SCH (09:14)
[2022-07-18] MEDS: AMOXIC-POT CLAV 500-125 MG 1 EACH TAB PO SCH (09:14)
[2022-07-18] MEDS: ATORVASTATIN 40 MG TAB PO SCH (09:14)
[2022-07-18] MEDS: CALCIUM ACETATE 667 MG TAB PO SCH ×2 (09:18→18:04)
[2022-07-18] MEDS: SODIUM FERRIC GLUCONAT-SUCROSE 125 MG in SODIUM CHLORIDE 0.9% 100 ML IVPB SCH (09:19)
[2022-07-18] MEDS: IPRATROPIUM-ALBUTEROL 3 ML NEB INHALATION SCH ×4 (09:22→20:41)
[2022-07-18 09:58] LABS: INR 1.7 (<1.2)
[2022-07-18] MEDS: METOPROLOL SUCCINATE (ER) 25 MG TAB.ER.24H PO SCH (10:02)
--- NOTE | 2022-07-18 10:05 | P.PN ---
Subjective Progress Note Date: 07/17/22 Ag Souza, is a 67-year-old male who presented to [facility] emergency room after having a multiple falls at home, has significant mental status changes with somnolence and poor responsiveness, history per his , over the last 24 hours patient has been not feeling well, he fell twice at home, on the second time she was not able to wake him up and get him up from the floor through the bed, she called EMS and he was brought into emergency room. He was evaluated in the emergency room vital examination on presentation revealed a temperature of 97.3 pulse 82 respiration 16 blood pressure 121/67 pulse ox 97% on room air Laboratory data revealed a white blood count of 23.2 hemoglobin 14.4 platelet count 98,000 sodium 129 potassium 4.9 chloride 96 CO2 25 BUN 51 creatinine 2.24 troponin level was 0.02 COVID-19 testing was negative Testing in the emergency room revealed chest x-ray done in the emergency room did not reveal significant abnormality. Patient has a known history of degenerative disc disease with chronic pain maintained on narcotics for pain management he was given Narcan in the emergency room which led to improvement in his mental status. Patient was admitted to medical floor for further evaluation and treatment. On 06/22/2022 patient was seen and examined on the telemetry floor he is still somnolent, agitated, pulling on his IV line, he was started through the night on IV Ativan, vital examination reveals a temperature of 98.4 pulse 132 respiration 24 blood pressure 172/91 pulse ox 96% on 2 L nasal cannula, white blood count is 21.9 hemoglobin 14.8 platelet count 118 d-dimer was elevated at 2.12 at this time will start patient on IV heparin high-intensity for possible pulmonary embolism, his kidney function is still elevated, will defer computed tomography scan this time, he is not cooperative to proceed with VQ scan, will continue with IV fluid, nephrology consultation and infectious disease consultation were requested. On 06/23/2022 patient was seen and examined in the ICU he is more alert and oriented today vital exam reveals a temperature of 98.2 pulse 86 respiration 23 blood pressure 138/79 pulse ox 93% on 2 L nasal cannula white blood count is down to 15.4 hemoglobin 13.2 platelet count 125 kidney function improved with BUN at 66 and creatinine at 0.89 kidney ultrasound was done and revealed no evidence of renal stones or obstruction, CT angiogram of the chest was done and there was no evidence of pulmonary embolism, blood culture were positive for Streptococcus group b , patient is currently maintained on IV Unasyn, IV vanc omycin and IV acyclovir, cardiology, pulmonary, nephrology, neurology and infectious disease are following On 06/24/2022 patient was seen and examined in the ICU he is more alert and oriented today kidney ultrasound was done and revealed no evidence of renal stones or obstruction, CT angiogram of the chest was done and there was no evidence of pulmonary embolism, blood culture were positive for Streptococcus group b , patient is currently maintained on IV Unasyn, IV vancomycin and IV acyclovir, cardiology, pulmonary, nephrology, neurology and infectious disease are following. Patient had a maroon colored stools through the night, GI consultation is not available this week, surgical consultation was requested for evaluation for possible GI bleed On 06/25/2022 patient was seen and examined in the ICU, he is more alert and responsive today, there is no fever or chills no headache or dizziness no chest pain no shortness of breath no cough no nausea or vomiting no abdominal pain no diarrhea and no urinary symptoms. IV heparin has been discontinued, at this time will start subcu Lovenox for DVT prophylaxis, he remains on IV antibiotics cefazolin 2 g IV every 8 hours. On 06/26/2022 patient was seen and examined in the ICU he is alert and oriented 3 in no apparent distress he is complaining of abdominal discomfort otherwise he denies any complaint at this time there is no fever or chills no headache or dizziness no chest pain no shortness of breath no cough no nausea or vomiting no diarrhea no blood in the stools no burning with urination no frequency or urgency and no hematuria. On 06/27/2022 patient was seen and examined on in the ICU he is alert and oriented 3, he is feeling better, he had multiple bowel movements and his abdominal pain has improved, he is still complaining of difficulty sleeping at night otherwise he denies any complaints there is no fever or chills no headache or dizziness no chest pain no shortness of breath no cough no nausea or vomiting no abdominal pain no diarrhea no blood in the stools no burning with urination no frequency or urgency and no hematuria. On 06/28/2022 patient was seen and examined on the medical floor he is alert and oriented 3 in no distress there is no fever or chills no headache or dizziness no chest pain no shortness of breath no cough no nausea or vomiting no abdominal pain no diarrhea, no blood in the stools no burning with urination no frequency or urgency and no hematuria patient has generalized weakness he is improving gradually will continue to follow closely physical therapy is following On 06/29/2022 patient was seen and examined on the medical floor he is alert and oriented 3 in no apparent distress there is no fever or chills no headache or dizziness no chest pain no shortness of breath no cough no nausea or vomiting he is complaining of abdominal discomfort with abdominal distention no diarrhea or constipation no blood in the stools no burning with urination no frequency or urgency and no hematuria. At this time patient is scheduled for computed tomography scan of the abdomen and pelvis will continue to monitor closely. On 06/30/2022 patient was seen and examined on the telemetry floor he is alert and oriented 3 in no apparent distress he is complaining now of severe neck gina n and back pain and requesting [place], patient underwent paracentesis today, 3.5 L of fluid were removed, otherwise patient denies any other symptoms there is no fever or chills no headache or dizziness no chest pain no shortness of breath no cough no nausea or vomiting no abdominal pain no diarrhea and no urinary symptoms On 07/01/2022 patient was seen and examined on the medical floor he is alert and oriented 3 in no apparent distress he is complaining of abdominal discomfort and distention otherwise he denies any complaints at this time there is no fever or chills no headache or dizziness no chest pain no shortness of breath no cough no nausea or vomiting no diarrhea no blood in the stools no burning with urination no frequency or urgency and no hematuria On 07/02/2022 patient was seen and examined on the medical floor he is alert and oriented 3 in no apparent distress he is complaining of abdominal discomfort and distention, he is complaining of bilateral hip pain, he received 1 dose of lactulose and had multiple episodes of diarrhea afterwards lactulose was discontinued, otherwise he denies any complaints at this time there is no fever or chills no headache or dizziness no chest pain no shortness of breath no cough no nausea or vomiting no blood in the stools no burning with urination no frequency or urgency and no hematuria. On 07/03/2022 patient was seen and examined the medical he is alert and oriented he is complaining of abdominal distention was discomfort and shortness of breath otherwise he denies any complaints there is no fever or chills no headache or dizziness no chest pain no cough no nausea or vomiting no urinary symptoms On 07/04/2022 patient was seen and examined in the ICU he is more lethargic today he was started on BiPAP and transferred to ICU today ammonia level is elevated at 38 there is no fever or chills no headache or dizziness no chest pain patient has significant distention in the abdomen, no nausea or vomiting no diarrhea, Russo catheter is in. On 07/05/2022 patient was seen and examined in the ICU at this time he is intubated sedated maintained on mechanical ventilation, currently he is on assist control rate of 20 to FiO2 50% and PEEP of 5 he had a dialysis catheter placed and a session of hemodialysis is scheduled for this afternoon, patient is maintained on norepinephrine drip, white blood count is up to 25,000 hemoglobin is 11 BUN is up to 78 and creatinine 2.47 patient is maintained on IV Zosyn infectious disease are following, prognosis is guarded will continue with aggressive management at this time and sister are at the bedside and are aware of patient's condition. On 07/06/2022 patient was seen and examined in the ICU he is intubated sedated maintained on mechanical ventilation assist control rate 22 FiO2 50% with PEEP of 5 he was started on hemodialysis yesterday he is still IV antibiotic and IV fluid and norepinephrine temperature of 97.7 pulse 96 respiration 24 blood pressure 128/48 sodium 135 potassium 4.4 chloride 101 CO2 22 BUN 78 creatinine 3.19 white blood count 17.4 hemoglobin 10.5 platelet count 167 On 07/07/2022 patient was seen and examined in the ICU he is intubated sedated maintained on mechanical ventilation, he is maintained on assist control FiO2 40% feet 058 arterial blood gas is improving is maintained on TPN he is maintained on IV antibiotics he is maintained on hemodialysis vital exam reveals a temperature of 97.2 pulse 75 respiration 24 blood pressure 128/48 pulse ox 100% BUN is 63 creatinine 2.86 On 07/08/2022 patient was seen and examined in the ICU he is intubated sedated maintained on mechanical ventilation he is maintained on norepinephrine for pressure support, he is maintained on IV Zosyn, he was started on hemodialysis, clinically patient is stable. His vital exam reveals a temperature of 98.7 pulse 84 respiration 24 blood pressure 132/49 pulse ox 94% on mechanical ventilation FiO2 30% On 07/09/2022 patient was seen and examined in the ICU currently he is on mechanical ventilation assist control rate of 24 FiO2 30% with a PEEP of 5, he is off propofol, he is awake and tries to answer questions with yes or no by moving his head he is moving his hands there has been a significant drop in his platelet count yesterday and today, I will check heparin induced antibodies and hold Lovenox for today, I have contacted Dr. Barajas over the phone and asked if he can switch Zosyn to a different antibiotic, otherwise patient is stable will continue to monitor closely. On 07/10/2022 patient was seen and examined in the ICU he is intubated sedated maintained on mechanical ventilation, he is on assist control rate of 24 FiO2 30% with a PEEP of 5 at this time platelet count is down to 41 Zosyn was switched yesterday by Dr. Barajas to Cefepime, heparin induced antibodies are still pending consult for hematology requested in regard to thrombocytopenia, patient is also having episodes of atrial fibrillation during dialysis he has bradycardia with a heart rate of 49 consultation for cardiology will be initiated otherwise patient is stable without significant change since yesterday. On 07/11/2022 patient was seen and examined in the ICU he is extubated entertained on oxygen via nasal cannula patient is alert and oriented and answering questions appropriately he is complaining of generalized weakness and generalized pain otherwise he denies any complaint On 07/12/2022 patient was seen and examined in the ICU he is extubated maintained on oxygen via nasal cannula, he is alert and oriented in no distress he is complaining of generalized weakness and generalized pain otherwise he denies any complaint On 07/13/2022 patient was seen and examined in the ICU, he is alert and oriented 3 in no distress there is no fever or chills no headache or dizziness no chest pain no shortness of breath no cough no nausea or vomiting no abdominal pain no diarrhea no blood in the stools he has a Russo catheter in he is complaining of right wrist pain with check x-ray he is also complaining of generalized weakness On 07/14/2022 patient was seen and examined in the ICU, he is alert and oriented 3 in no distress , he is complaining of pain in the right wrist area , otherwise he denies any complaints there is no fever or chills no headache or dizziness no chest pain no shortness of breath no cough no nausea or vomiting no abdominal pain no diarrhea no blood in the stools he has a Russo catheter in he is complaining of right wrist pain with check x-ray he is also complaining of generalized weakness. On 07/15/2022 patient was seen and examined in the ICU, he is alert and oriented 3 in no distress , there is no fever or chills no headache or dizziness no chest pain no shortness of breath no cough no nausea or vomiting no abdominal pa in no diarrhea no blood in the stools he has a Russo catheter in he is complaining of right wrist pain with check x-ray he is also complaining of generalized weakness. On 07/16/2022 patient was seen and examined on the medical floor, he is alert and oriented 3 in no apparent distress, there is no fever or chills no headache or dizziness no chest pain no shortness of breath no cough no nausea or vomiting no abdominal pain no diarrhea and no urinary symptoms, he has good urine output, nephrology are following and no hemodialysis is recommended at this time, physical therapy and occupational therapy are following. On 04/16 2022 patient was seen and examined on the medical floor he is alert and oriented 3 in no apparent distress there is no fever or chills no headache or dizziness no chest pain no shortness of breath no cough no nausea or vomiting no abdominal pain no diarrhea and no urinary symptoms, today he is scheduled to have an ultrasound of the abdomen to assess for ascites and if there is any further need for paracentesis, he is also scheduled for a portable chest x-ray, labs are still pending, will continue to follow Objective - Vital Signs Vital signs: Vital Signs Temp 98.3 F 07/17/22 05:00 Pulse 77 07/17/22 07:56 Resp 16 07/17/22 07:39 BP 100/59 07/17/22 05:00 Pulse Ox 99 07/17/22 07:47 FiO2 30 07/11/22 20:00 Intake & Output 07/16/22 07/17/22 07/17/22 18:59 06:59 18:59 Intake Total 730 480 Output Total 521 360 1 Balance 209 120 -1 Weight 108.2 kg Intake: IV 10 0.9 @ 10 10 Oral 720 480 Output: Urine 520 360 Stool 1 1 Other: Voiding Method Indwelling Catheter Indwelling Catheter Indwelling Catheter # Bowel Movements 3 0 ABP, PAP, CO, CI - Last Documented Arterial Blood Pressure 103/47 - Exam In general patient is alert and responsive in no apparent distress HEENT head normocephalic and atraumatic Neck is supple no JVD no goiter no lymphadenopathy no carotid bruit Chest examination is clear to auscultation no crackles no wheezing Cardiac exam reveals regular heart sounds S1 and S2 no gallops no murmurs Abdomen is distended with generalized tenderness, no organomegaly Extremity exam reveals no edema no cyanosis or clubbing Neurological examination reveals no gross focal deficits - Labs CBC & Chem 7: 07/16/22 05:52 07/16/22 05:52 Labs: Abnormal Lab Results - Last 24 Hours (Table) 07/16/22 Range/Units 05:52 Iron 41 L (65-175) ug/dL Transferrin 181.0 L (204.0-354.0) mg/dL Assessment and Plan Plan: Mental status changes, cause is unclear could be related to overdose of narcotic Leukocytosis, no clear source of infection, chest x-ray and urine analysis don't show any clear evidence of infection, patient received IV steroids in the EMS and in the emergency room, will check lactic acid level and monitor CBC Acute exacerbation of COPD with wheezing on presentation, he was started on IV Solu-Medrol in the emergency room, he is on inhaled bronchodilators Evidence of acute kidney injury was elevated BUN and creatinine patient was started on IV fluid, nephrology consultation was requested Abdominal ascites, status post paracentesis 06/30/2022 with 3.5 L of fluid removed, Evidence of liver cirrhosis Mild elevation in troponin level will monitor Underlying history of hypertension Underlying history of hypothyroidism Underlying history of depression with anxiety disorder Underlying history of vitamin D deficiency Underlying history of degenerative disc disease with chronic back pain maintained on narcotics for pain management Underlying history of gastroesophageal reflux disease At this time patient is admitted to telemetry floor Will check d-dimer check lactic acid recheck CBC and CMP Continue with IV fluid and recheck renal function Consult nephrology
--- NOTE | 2022-07-18 10:35 | P.PN ---
Subjective Patient is seen in follow-up for acute kidney injury. Started on hemodialysis 07/05/2022. Last hemodialysis was 07/11/2022. Creatinine 6.3 today. Nonoliguric. Still quite edematous. Had nosebleed last night. Vital signs are stable. General: Awake. No acute distress. HEENT: On nasal cannula. LUNGS: Breath sounds decreased. HEART: Rate and Rhythm are regular. ABDOMEN: Soft, no distention. EXTREMITITES: 2+ edema. Objective - Vital Signs Vital signs: Vital Signs Temp 98.4 F 07/18/22 03:52 Pulse 81 07/18/22 03:52 Resp 15 07/18/22 03:52 BP 121/56 07/18/22 03:52 Pulse Ox 95 07/18/22 09:21 FiO2 30 07/11/22 20:00 Intake & Output 07/17/22 07/18/22 07/18/22 18:59 06:59 18:59 Output Total 1001 1070 Balance -1001 -1070 Weight 107 kg Output: Urine 1000 1070 Stool 1 Other: Voiding Method Indwelling Catheter Indwelling Catheter ABP, PAP, CO, CI - Last Documented Arterial Blood Pressure 103/47 - Labs CBC & Chem 7: 07/16/22 05:52 07/18/22 05:43 Labs: Abnormal Lab Results - Last 24 Hours (Table) 07/17/22 07/17/22 07/18/22 Range/Units 05:12 21:47 05:43 PT (9.0-12.0) sec INR (<1.2) Sodium 136 L (137-145) mmol/L Carbon Dioxide 20 L (22-30) mmol/L BUN 99 H 93.9 H (9-20) mg/dL Creatinine 6.41 H 6.3 H (0.66-1.25) mg/dL Est GFR (CKD-EPI)AfAm 9.6 L (60.0-200.0) Est GFR (CKD-EPI)NonAf 8.3 L (60.0-200.0) Glucose 113 H (74-99) mg/dL Calcium 8.1 L 8.6 L (8.4-10.2) mg/dL Phosphorus 6.4 H (2.4-5.1) mg/dL AST 106 H (14-35) U/L ALT 120 H (10-49) U/L Alkaline Phosphatase 134 H (41-126) U/L Albumin 3.0 L (3.8-4.9) g/dL Globulin 3.4 H (1.6-3.3) g/dL Albumin/Globulin Ratio 0.88 L (1.60-3.17) g/dL 07/18/22 Range/Units 09:35 PT 17.0 H (9.0-12.0) sec INR 1.7 H (<1.2) Sodium (137-145) mmol/L Carbon Dioxide (22-30) mmol/L BUN (9-20) mg/dL Creatinine (0.66-1.25) mg/dL Est GFR (CKD-EPI)AfAm (60.0-200.0) Est GFR (CKD-EPI)NonAf (60.0-200.0) Glucose (74-99) mg/dL Calcium (8.4-10.2) mg/dL Phosphorus (2.4-5.1) mg/dL AST (14-35) U/L ALT (10-49) U/L Alkaline Phosphatase (41-126) U/L Albumin (3.8-4.9) g/dL Globulin (1.6-3.3) g/dL Albumin/Globulin Ratio (1.60-3.17) g/dL Assessment and Plan Plan: Assessment: 1. Acute kidney injury secondary to septic ATN and hypotension. Nonoliguric. Baseline creatinine near 1. Started on hemodialysis 07/05/2022 - last treatment 07/11/2022. Renal function gradually worsening with creatinine 6.3 today. 2. Hypokalemia from diuresis. Replaced. Improved. 3. Shock status post Levophed. 4. Group B strep bacteremia and ?pneumonia on antibiotics. ID following. 5. Volume overload. Improved with ultrafiltration and diuresis. Still quite edematous. 6. Liver cirrhosis. 7. Ascites status post paracentesis on 07/01/2022 to 3.6 L drained. Ultrasound on 07/09/2022 showed ascites. 8. A. fib with RVR s/p Cardizem drip. Cardiology following. 9. Hyperphosphatemia secondary to acute kidney injury. Last phosphorus 5.3 dated 07/11/2022. 10. Metabolic acidosis secondary to acute kidney injury. On oral bicarbonate. 11. Anemia. Iron deficiency noted. Receiving IV iron. Patient had nosebleed last night. ENT consulted. Plan: Maintain torsemide. Maintain 1500 mL fluid restriction. Encourage oral intake. Due to worsened renal failure and significant volume overload, reinitiated renal replacement therapy. Vascular surgeon notified for permacath placement today. Plan for hemodialysis today and again tomorrow. Cortisol level 14. IR consulted again for paracentesis. Will give 25 g albumin prior to the procedure an additional 25 g if more than 5 L drained. Continue to monitor renal function and urine output. Continue to monitor for renal recovery. IV DDAVP today. Follow-up CBC. Patient's also present at bedside. Case discussed in detail with patient and his and also the nurse.
[2022-07-18] MEDS ORDERED: DESMOPRESSIN ACETATE 22 MCG in SODIUM CHLORIDE 0.9% 50 ML IVPB ONE (11:00)
[2022-07-18 11:32] LABS: Basophils # (A) 0.05 X 10*3/uL (0.00-0.10); Basophils % (A) 0.5 %; Eosinophils # (A) 0.44 X 10*3/uL (0.04-0.35); Eosinophils % (A) 4.7 %; HGB 9.4 g/dL (13.0-17.0); Immature Grans, Automated 0.5 %; Lymphocytes # (A) 2.53 X 10*3/uL (0.90-5.00); Lymphocytes % (A) 27.1 %; MCH 31.6 pg (27.0-32.0); MCHC 32.4 g/dL (32.0-37.0); MCV 97.6 fL (80.0-97.0); Monocytes # (A) 1.26 X 10*3/uL (0.20-1.00); Monocytes % (A) 13.5 %; NRBC Per 100 WBC 0 /100 WBCS (0.0-0.0); Neutrophils # (A) 5.02 X 10*3/uL (1.80-7.70); Neutrophils % (A) 53.7 %; Platelet Count 85 X 10*3/uL (140-440); RBC 2.97 X 10*6/uL (4.40-5.60); RDW 15.7 % (11.5-14.5); WBC 9.35 X 10*3/uL (4.50-10.00)
[2022-07-18 11:33] LABS: RBC Morphology NORMAL
[2022-07-18] MEDS ORDERED: HEPARIN SODIUM 1,000 UN/ML (10ML VL) ONE (11:48)
[2022-07-18] MEDS ORDERED: fentaNYL (PF) 50 MCG/ML 2 ML AMP ONE (11:48)
[2022-07-18] MEDS: LIDOCAINE 1% INJ 10MG/ML (30 ML VIAL-PF) SQ ONE ×2 (12:05→12:10)
[2022-07-18] MEDS ORDERED: MIDAZOLAM 2 MG/2 ML VIAL IV ONE (12:05)
[2022-07-18] MEDS: fentaNYL (PF) 50 MCG/ML 2 ML AMP IV ONE ×2 (12:05→12:11)
[2022-07-18] MEDS ORDERED: IV FLUID CONTINUATION 1,000 ML IV ONE ×2 (12:18)
--- NOTE | 2022-07-18 12:29 | P.PN ---
Subjective Progress Note Date: 07/18/22 Progress note dated 07/15/2022. 67-year-old male who was admitted back on June 21 for mental status changes, and respiratory failure. The patient was intubated on July 04, and successfully extubated on July 11. He is currently in the intensive care unit, room 254. He's currently on room air. At nighttime, he does sleep with 2 L. He's not receiving any IV fluids. The patient could be transferred to the general medical floor, without telemetry. Infectious disease doctor discontinued cefepime, and place the patient on Augmentin. White count 9.8, he will been 10.8, hematocrit 33.6, with a platelet count that is currently pending. Sodium 137, potassium 3.2, chlorides 99, CO2 22, anion gap 16, BUN 88, with a creatinine of 4.89. This reflects a worsening pattern of renal failure. No new chest x-ray today, or new microbiologic data. Progress note dated 07/16/2022. 67-year-old male seen today in room 528. Yesterday, he was in the intensive care unit. He was admitted back on June 21 for mental status changes, and respiratory failure. He was intubated, successfully extubated on July 11. His mental status has improved on a daily basis. Currently, he's on a couple of liters. He's not receiving any IV fluids. All in all, he is doing much better. He remains on Augmentin. Today's laboratory include a white count 8.3, hemoglobin 9.5, hematocrit 30.2, and a platelet count of 65,000. Sodium 136, potassium 3.3, chlorides 100, CO2 21, anion gap 15, BUN 95, and creatinine 5.75. His kidney function continues to deteriorate, and eventually, he may need hemodialysis again. Progress note dated 07/17/2022. The patient is again seen today in room 528. The patient appears to be doing well. He remains on 2 L of oxygen. No IV fluids. He was initially admitted back on June 21 4 mental status changes, and respiratory failure. He was intubated, on July 04, and successfully extubated on July 11. His mental status has improved on a daily basis. No new labs today. Labs from July 16 is reviewed. Microbiologic studies remain negative. Labs, x-rays, and medi cations are all reviewed. The patient is seen today 07/18/2022 in follow-up on the regular medical floor. He is currently resting comfortably in bed. Awake and alert in no acute distress. His is at the bedside. He is maintaining O2 saturations in the 90s on room air. She's afebrile. Hemodynamically stable. Abdominal ultrasound reveals evidence of recurrent ascites. White count 9.3. Hemoglobin 9.4. Platelet count 85,000. INR 1.7. Sodium 137. Potassium 3.8. BUN 94. Creatinine 6.3. AST 106. ALT 120. Alk phos 134. Serum cortisol 14. The plan is for permanent hemodialysis catheter. There is also an order for request for a PICC line. He did have issues with a nosebleed overnight. He is receiving DDAVP today. Objective - Vital Signs Vital signs: Vital Signs Temp 98.4 F 07/18/22 03:52 Pulse 81 07/18/22 08:00 Resp 15 07/18/22 08:00 BP 121/56 07/18/22 03:52 Pulse Ox 95 07/18/22 09:21 FiO2 30 07/11/22 20:00 Intake & Output 07/17/22 07/18/22 07/18/22 18:59 06:59 18:59 Output Total 1001 1070 1 Balance -1001 -1070 -1 Weight 107 kg Output: Urine 1000 1070 Stool 1 1 Other: Voiding Method Indwelling Catheter Indwelling Catheter Indwelling Catheter ABP, PAP, CO, CI - Last Documented Arterial Blood Pressure 103/47 - Exam GENERAL EXAM: Awake and alert 67-year-old male, on room air, comfortable in no apparent distress. HEAD: Normocephalic/atraumatic. EYES: Normal reaction of pupils, equal size. Conjunctiva pink, sclera white. NOSE: Clear with pink turbinates. THROAT: No erythema or exudates. NECK: No masses, no JVD, no thyroid enlargement, no adenopathy. CHEST: No chest wall deformity. Symmetrical expansion. LUNGS: Equal air entry with no crackles, wheeze, rhonchi or dullness. CVS: Regular rate and rhythm, normal S1 and S2, no gallops, no murmurs, no rubs ABDOMEN: Distended, tympanic to percussion, nontender. No hepatosplenomegaly, normal bowel sounds, no guarding or rigidity. EXTREMITIES: No clubbing, no edema, no cyanosis, 2+ pulses and upper and lower extremities. MUSCULOSKELETAL: Muscle strength and tone normal. SPINE: No scoliosis or deformity SKIN: No rashes CENTRAL NERVOUS SYSTEM: Awake, slow to respond, No focal deficits, tone is normal in all 4 extremities. - Labs CBC & Chem 7: 07/18/22 05:43 07/18/22 05:43 Labs: Abnormal Lab Results - Last 24 Hours (Table) 07/17/22 07/17/22 07/18/22 Range/Units 05:12 21:47 05:43 RBC (4.40-5.60) X 10*6/uL Hgb (13.0-17.0) g/dL Hct (39.6-50.0) % MCV (80.0-97.0) fL RDW (11.5-14.5) % Plt Count (140-440) X 10*3/uL Plt Count Comment MPV (9.5-12.2) fL Immature Gran # (0.00-0.04) X 10*3/uL Monocytes # (0.20-1.00) X 10*3/uL Eosinophils # (0.04-0.35) X 10*3/uL PT (9.0-12.0) sec INR (<1.2) Sodium 136 L (137-145) mmol/L Carbon Dioxide 20 L (22-30) mmol/L BUN 99 H 93.9 H (9-20) mg/dL Creatinine 6.41 H 6.3 H (0.66-1.25) mg/dL Est GFR (CKD-EPI)AfAm 9.6 L (60.0-200.0) Est GFR (CKD-EPI)NonAf 8.3 L (60.0-200.0) Glucose 113 H (74-99) mg/dL Calcium 8.1 L 8.6 L (8.4-10.2) mg/dL Phosphorus 6.4 H (2.4-5.1) mg/dL AST 106 H (14-35) U/L ALT 120 H (10-49) U/L Alkaline Phosphatase 134 H (41-126) U/L Albumin 3.0 L (3.8-4.9) g/dL Globulin 3.4 H (1.6-3.3) g/dL Albumin/Globulin Ratio 0.88 L (1.60-3.17) g/dL 07/18/22 07/18/22 Range/Units 05:43 09:35 RBC 2.97 L (4.40-5.60) X 10*6/uL Hgb 9.4 L (13.0-17.0) g/dL Hct 29.0 L (39.6-50.0) % MCV 97.6 H (80.0-97.0) fL RDW 15.7 H (11.5-14.5) % Plt Count 85 L (140-440) X 10*3/uL Plt Count Comment DECREASED A MPV 13.0 H (9.5-12.2) fL Immature Gran # 0.05 H (0.00-0.04) X 10*3/uL Monocytes # 1.26 H (0.20-1.00) X 10*3/uL Eosinophils # 0.44 H (0.04-0.35) X 10*3/uL PT 17.0 H (9.0-12.0) sec INR 1.7 H (<1.2) Sodium (137-145) mmol/L Carbon Dioxide (22-30) mmol/L BUN (9-20) mg/dL Creatinine (0.66-1.25) mg/dL Est GFR (CKD-EPI)AfAm (60.0-200.0) Est GFR (CKD-EPI)NonAf (60.0-200.0) Glucose (74-99) mg/dL Calcium (8.4-10.2) mg/dL Phosphorus (2.4-5.1) mg/dL AST (14-35) U/L ALT (10-49) U/L Alkaline Phosphatase (41-126) U/L Albumin (3.8-4.9) g/dL Globulin (1.6-3.3) g/dL Albumin/Globulin Ratio (1.60-3.17) g/dL Assessment and Plan Assessment: Acute mental status changes, unknown etiology, related to sepsis, acute kidney i njury. Currently patient is improving, and close to his baseline. Off Precedex on 06/25/2022 Bacteremia related to strep agalactiae, possibly abdominal source Acute GI blood loss anemia, with passing maroon stools starting on 06/23/2022, GI service has been consulted Acute kidney injury related to sepsis, improved and then worsened again permanent dialysis catheter being placed today 07/18/2022 Hyponatremia, hypovolemic Possible urinary tract infection Multiple falls at home History of opiate dependence History of COPD/chronic bronchial asthma, unspecified History of chronic back pain History of anxiety Hypertension Hyperlipidemia Abdominal ascites, status post paracentesis 06/30/2022 with 3.6 L of straw- colored fluid removed. Recurrent and possible repeat paracentesis needed Plan: The patient was seen and evaluated Medications and labs reviewed Plan is for permanent hemo-To be placed today Plan is for PICC line placement Received DDAVP today Continue the current treatment plan I have personally seen and examined the patient, performed the documentation and the assessment and plan as written. Number of minutes spent on the visit: 10. I have personally seen and examined the patient and reviewed the documentation. I performed a joint evaluation with the nurse practitioner in this evaluation was done more than 20 minutes. I fully agree with the documentation above and the plan of care.. The patient remains quite debilitated. Abdomen is slightly distended and the patient a ascitic fluid and he may benefit from another paracentesis. The patient also has acute kidney injury in the creatinine is on the rise. The patient will be given a permacath catheter today for ongoing dialysis. He did have some epistaxis and the patient will be given DDAVP. No other significant events otherwise for now. The patient is doing well. He is quite weak. Family members are at the bedside.
--- NOTE | 2022-07-18 12:31 | P.OP ---
Date of Procedure: 07/18/22 Preoperative Diagnosis: ESRD Postoperative Diagnosis: Same Procedure(s) Performed: Right tunneled hemodialysis catheter placement via ultrasound guided right internal jugular vein access Anesthesia: local Surgeon: Diogo López Estimated Blood Loss (ml): 10 Pathology: none sent Condition: stable Disposition: PACU Indications for Procedure: 67 year old gentleman with current treatment of acute kidney injury that has not improved with previous hemodialysis or medications and is now in need of permanent access for continued hemodialysis. Description of Procedure: Operative narrative: After written and informed consent was obtained and all risks, benefits and competitions were described the patient was brought to the Planting Machine Operator and laid in a supine position. The area of the right neck was prepped and draped in the usual sterile fashion. Timeout was performed in normal fashion and antibiotics were administered prior to access. Utilizing ultrasound the right internal jugular vein was visualized and shown to be patent without any thrombus. Under ultrasound guidance the vein was then cannulated with dark nonpulsatile blood flow visualized. Guidewire was placed under direct visualization of fluoroscopy into the superior vena cava. Attention was then placed to the chest wall. A small incision was created on the lateral aspect of the chest wall as well as the access site at the neck. A 19cm centimeter palindrome hemodialysis catheter was then tunneled from the chest wall to the neck. Serial dilation was then performed and breakaway sheath was placed into the internal jugular vein under direct visualization of fluoroscopy. The catheter was then placed within the break away sheath the sheath was removed. The ports were assessed for patency and aleta and flushed easily and then were hep-locked. The catheter was then sutured in place, cleansed and dressings were placed. The patient tolerated procedure well.
--- NOTE | 2022-07-18 12:47 | IR ---
EXAMINATION TYPE: IR cvc insert central tunneled DATE OF EXAM: 07/18/2022 COMPARISON: NONE HISTORY: Fluoroscopy time. Fluoroscopy was provided to the referring clinician.
[2022-07-18] MEDS: ALBUMIN HUMAN 25% 50 ML in EMPTY BAG 1 BAG IVPB SCH ×2 (12:56→13:45)
--- NOTE | 2022-07-18 14:44 | XR ---
EXAMINATION TYPE: XR chest 1V confirm line [facility] DATE OF EXAM: 07/18/2022 HISTORY: Shortness of breath. COMPARISON: 07/17/2022 TECHNIQUE: Single view of the chest is submitted. FINDINGS: Demonstrated are scattered senescent parenchymal change. Right-sided central venous line noted with IJ approach with distal tip overlying the SVC. No evidence for pneumothorax. There is no evidence for focal infiltrate. Mild nonspecific interstitial prominence. The heart is stable. Hilar and mediastinal structures are within normal limits. Degenerative changes are seen of the dorsal spine. IMPRESSION: 1. Central venous line appropriately placed without evidence for pneumothorax.
--- NOTE | 2022-07-18 15:50 | US ---
Ultrasound-guided paracentesis. DATE OF EXAM: 07/18/2022 CLINICAL HISTORY: Ascites The procedure was discussed with the patient. The risks, complications, benefits, and alternatives we re discussed and any questions were answered. Informed consent was obtained. The patient was placed s upine on the ultrasound table and prepped and draped in the usual sterile fashion. All elements of maximal barrier technique were utilized. Under ultrasound guidance, access into the right lower quadrant was obtained, via the paracentesis catheter system and direct ultrasound guidanc e. Approximately 3.6 liters of straw-colored fluid was removed. The patient was stable throughout the pr ocedure and remained stable upon discharge from Department of Radiology. IMPRESSION: Successful paracentesis under ultrasound guidance.
--- NOTE | 2022-07-18 16:28 | P.PN ---
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, Heparin has been discontinued, he now has catheter for dialysis and iportant no heparin flushes until confirmed serotonin medical office receptionist results Objective - Vital Signs Vital signs: Vital Signs Temp 98.5 F 07/18/22 13:06 Pulse 87 07/18/22 14:20 Resp 16 07/18/22 14:20 BP 117/59 07/18/22 14:20 Pulse Ox 95 07/18/22 14:20 FiO2 30 07/11/22 20:00 Intake & Output 07/17/22 07/18/22 07/18/22 18:59 06:59 18:59 Intake Total 100 Output Total 1001 1070 626 Balance -1001 -1070 -526 Weight 107 kg Intake: IV 100 Output: Urine 1000 1070 625 Stool 1 1 Other: Voiding Method Indwelling Catheter Indwelling Catheter Indwelling Catheter ABP, PAP, CO, CI - Last Documented Arterial Blood Pressure 103/47 - Exam - Constitutional extubated awake alert, wants csatheter out General appearance: no acute distress - EENT Eyes: EOMI ENT: other (Oropharyngeal tube along with endotracheal tube appearing midline) - Respiratory mild increase effort - Cardiovascular Rhythm: regular Heart sounds: normal: S1, S2 leg Peripheral Edema: bilateral: 3+ (Anasarca of the lower extremities bilaterally to the thighs) - Gastrointestinal General gastrointestinal: distended, normal bowel sounds, no tenderness - Integumentary Ecchymosis along the arms bilaterally - Neurologic No focal deficits Results - Labs CBC & Chem 7: 07/18/22 05:43 07/18/22 05:43 Labs: Abnormal Lab Results - Last 24 Hours (Table) 07/17/22 07/18/22 07/18/22 Range/Units 21:47 05:43 05:43 RBC 2.97 L (4.40-5.60) X 10*6/uL Hgb 9.4 L (13.0-17.0) g/dL Hct 29.0 L (39.6-50.0) % MCV 97.6 H (80.0-97.0) fL RDW 15.7 H (11.5-14.5) % Plt Count 85 L (140-440) X 10*3/uL Plt Count Comment DECREASED A MPV 13.0 H (9.5-12.2) fL Immature Gran # 0.05 H (0.00-0.04) X 10*3/uL Monocytes # 1.26 H (0.20-1.00) X 10*3/uL Eosinophils # 0.44 H (0.04-0.35) X 10*3/uL PT (9.0-12.0) sec INR (<1.2) Sodium 136 L (137-145) mmol/L Carbon Dioxide 20 L (22-30) mmol/L BUN 99 H 93.9 H (9-20) mg/dL Creatinine 6.41 H 6.3 H (0.66-1.25) mg/dL Est GFR (CKD-EPI)AfAm 9.6 L (60.0-200.0) Est GFR (CKD-EPI)NonAf 8.3 L (60.0-200.0) Glucose 113 H (74-99) mg/dL Calcium 8.1 L 8.6 L (8.4-10.2) mg/dL AST 106 H (14-35) U/L ALT 120 H (10-49) U/L Alkaline Phosphatase 134 H (41-126) U/L Albumin 3.0 L (3.8-4.9) g/dL Globulin 3.4 H (1.6-3.3) g/dL Albumin/Globulin Ratio 0.88 L (1.60-3.17) g/dL 07/18/22 Range/Units 09:35 RBC (4.40-5.60) X 10*6/uL Hgb (13.0-17.0) g/dL Hct (39.6-50.0) % MCV (80.0-97.0) fL RDW (11.5-14.5) % Plt Count (140-440) X 10*3/uL Plt Count Comment MPV (9.5-12.2) fL Immature Gran # (0.00-0.04) X 10*3/uL Monocytes # (0.20-1.00) X 10*3/uL Eosinophils # (0.04-0.35) X 10*3/uL PT 17.0 H (9.0-12.0) sec INR 1.7 H (<1.2) Sodium (137-145) mmol/L Carbon Dioxide (22-30) mmol/L BUN (9-20) mg/dL Creatinine (0.66-1.25) mg/dL Est GFR (CKD-EPI)AfAm (60.0-200.0) Est GFR (CKD-EPI)NonAf (60.0-200.0) Glucose (74-99) mg/dL Calcium (8.4-10.2) mg/dL AST (14-35) U/L ALT (10-49) U/L Alkaline Phosphatase (41-126) U/L Albumin (3.8-4.9) g/dL Globulin (1.6-3.3) g/dL Albumin/Globulin Ratio (1.60-3.17) g/dL Assessment and Plan Plan: ssessment and Plan Assessment: Mr. Souza is a 67-year-old gentleman with a past medical history significant for hypertension, hyperlipidemia, CVA/TIA as well as radiographic evidence for cirrhosis with hypersplenism has an prolonged hospitalization course for sharp recollect a bacteremia resulting in acute hypoxic respiratory failure and septic shock with subsequent aspiration pneumonia and acute kidney injury resulting in the need for hemodialysis as been noted to have progressive thrombocytopenia. In addition, he is also been noted to have progressive normocytic tube slightly macrocytic anemia during the course of his hospitalization. Plan: Thrombocytopenia -His platelet trends are improving DIC work-up negative HIT antibody positive COntinue to monitor daily Normocytic to macrocytic anemia - Stable no intervention today Time with Patient: Greater than 30 Renal function worsening, Should check LDH and no mention of schistos in differential. Heparin added to allergies Dialysis to begin.
--- NOTE | 2022-07-18 17:17 | P.PN ---
Subjective Progress Note Date: 07/18/22 Ag Souza, is a 67-year-old male who presented to [facility] emergency room after having a multiple falls at home, has significant mental status changes with somnolence and poor responsiveness, history per his , over the last 24 hours patient has been not feeling well, he fell twice at home, on the second time she was not able to wake him up and get him up from the floor through the bed, she called EMS and he was brought into emergency room. He was evaluated in the emergency room vital examination on presentation revealed a temperature of 97.3 pulse 82 respiration 16 blood pressure 121/67 pulse ox 97% on room air Laboratory data revealed a white blood count of 23.2 hemoglobin 14.4 platelet count 98,000 sodium 129 potassium 4.9 chloride 96 CO2 25 BUN 51 creatinine 2.24 troponin level was 0.02 COVID-19 testing was negative Testing in the emergency room revealed chest x-ray done in the emergency room did not reveal significant abnormality. Patient has a known history of degenerative disc disease with chronic pain maintained on narcotics for pain management he was given Narcan in the emergency room which led to improvement in his mental status. Patient was admitted to medical floor for further evaluation and treatment. On 06/22/2022 patient was seen and examined on the telemetry floor he is still somnolent, agitated, pulling on his IV line, he was started through the night on IV Ativan, vital examination reveals a temperature of 98.4 pulse 132 respiration 24 blood pressure 172/91 pulse ox 96% on 2 L nasal cannula, white blood count is 21.9 hemoglobin 14.8 platelet count 118 d-dimer was elevated at 2.12 at this time will start patient on IV heparin high-intensity for possible pulmonary embolism, his kidney function is still elevated, will defer computed tomography scan this time, he is not cooperative to proceed with VQ scan, will continue with IV fluid, nephrology consultation and infectious disease consultation were requested. On 06/23/2022 patient was seen and examined in the ICU he is more alert and oriented today vital exam reveals a temperature of 98.2 pulse 86 respiration 23 blood pressure 138/79 pulse ox 93% on 2 L nasal cannula white blood count is down to 15.4 hemoglobin 13.2 platelet count 125 kidney function improved with BUN at 66 and creatinine at 0.89 kidney ultrasound was done and revealed no evidence of renal stones or obstruction, CT angiogram of the chest was done and there was no evidence of pulmonary embolism, blood culture were positive for Streptococcus group b , patient is currently maintained on IV Unasyn, IV vanc omycin and IV acyclovir, cardiology, pulmonary, nephrology, neurology and infectious disease are following On 06/24/2022 patient was seen and examined in the ICU he is more alert and oriented today kidney ultrasound was done and revealed no evidence of renal stones or obstruction, CT angiogram of the chest was done and there was no evidence of pulmonary embolism, blood culture were positive for Streptococcus group b , patient is currently maintained on IV Unasyn, IV vancomycin and IV acyclovir, cardiology, pulmonary, nephrology, neurology and infectious disease are following. Patient had a maroon colored stools through the night, GI consultation is not available this week, surgical consultation was requested for evaluation for possible GI bleed On 06/25/2022 patient was seen and examined in the ICU, he is more alert and responsive today, there is no fever or chills no headache or dizziness no chest pain no shortness of breath no cough no nausea or vomiting no abdominal pain no diarrhea and no urinary symptoms. IV heparin has been discontinued, at this time will start subcu Lovenox for DVT prophylaxis, he remains on IV antibiotics cefazolin 2 g IV every 8 hours. On 06/26/2022 patient was seen and examined in the ICU he is alert and oriented 3 in no apparent distress he is complaining of abdominal discomfort otherwise he denies any complaint at this time there is no fever or chills no headache or dizziness no chest pain no shortness of breath no cough no nausea or vomiting no diarrhea no blood in the stools no burning with urination no frequency or urgency and no hematuria. On 06/27/2022 patient was seen and examined on in the ICU he is alert and oriented 3, he is feeling better, he had multiple bowel movements and his abdominal pain has improved, he is still complaining of difficulty sleeping at night otherwise he denies any complaints there is no fever or chills no headache or dizziness no chest pain no shortness of breath no cough no nausea or vomiting no abdominal pain no diarrhea no blood in the stools no burning with urination no frequency or urgency and no hematuria. On 06/28/2022 patient was seen and examined on the medical floor he is alert and oriented 3 in no distress there is no fever or chills no headache or dizziness no chest pain no shortness of breath no cough no nausea or vomiting no abdominal pain no diarrhea, no blood in the stools no burning with urination no frequency or urgency and no hematuria patient has generalized weakness he is improving gradually will continue to follow closely physical therapy is following On 06/29/2022 patient was seen and examined on the medical floor he is alert and oriented 3 in no apparent distress there is no fever or chills no headache or dizziness no chest pain no shortness of breath no cough no nausea or vomiting he is complaining of abdominal discomfort with abdominal distention no diarrhea or constipation no blood in the stools no burning with urination no frequency or urgency and no hematuria. At this time patient is scheduled for computed tomography scan of the abdomen and pelvis will continue to monitor closely. On 06/30/2022 patient was seen and examined on the telemetry floor he is alert and oriented 3 in no apparent distress he is complaining now of severe neck gina n and back pain and requesting [place], patient underwent paracentesis today, 3.5 L of fluid were removed, otherwise patient denies any other symptoms there is no fever or chills no headache or dizziness no chest pain no shortness of breath no cough no nausea or vomiting no abdominal pain no diarrhea and no urinary symptoms On 07/01/2022 patient was seen and examined on the medical floor he is alert and oriented 3 in no apparent distress he is complaining of abdominal discomfort and distention otherwise he denies any complaints at this time there is no fever or chills no headache or dizziness no chest pain no shortness of breath no cough no nausea or vomiting no diarrhea no blood in the stools no burning with urination no frequency or urgency and no hematuria On 07/02/2022 patient was seen and examined on the medical floor he is alert and oriented 3 in no apparent distress he is complaining of abdominal discomfort and distention, he is complaining of bilateral hip pain, he received 1 dose of lactulose and had multiple episodes of diarrhea afterwards lactulose was discontinued, otherwise he denies any complaints at this time there is no fever or chills no headache or dizziness no chest pain no shortness of breath no cough no nausea or vomiting no blood in the stools no burning with urination no frequency or urgency and no hematuria. On 07/03/2022 patient was seen and examined the medical he is alert and oriented he is complaining of abdominal distention was discomfort and shortness of breath otherwise he denies any complaints there is no fever or chills no headache or dizziness no chest pain no cough no nausea or vomiting no urinary symptoms On 07/04/2022 patient was seen and examined in the ICU he is more lethargic today he was started on BiPAP and transferred to ICU today ammonia level is elevated at 38 there is no fever or chills no headache or dizziness no chest pain patient has significant distention in the abdomen, no nausea or vomiting no diarrhea, Russo catheter is in. On 07/05/2022 patient was seen and examined in the ICU at this time he is intubated sedated maintained on mechanical ventilation, currently he is on assist control rate of 20 to FiO2 50% and PEEP of 5 he had a dialysis catheter placed and a session of hemodialysis is scheduled for this afternoon, patient is maintained on norepinephrine drip, white blood count is up to 25,000 hemoglobin is 11 BUN is up to 78 and creatinine 2.47 patient is maintained on IV Zosyn infectious disease are following, prognosis is guarded will continue with aggressive management at this time and sister are at the bedside and are aware of patient's condition. On 07/06/2022 patient was seen and examined in the ICU he is intubated sedated maintained on mechanical ventilation assist control rate 22 FiO2 50% with PEEP of 5 he was started on hemodialysis yesterday he is still IV antibiotic and IV fluid and norepinephrine temperature of 97.7 pulse 96 respiration 24 blood pressure 128/48 sodium 135 potassium 4.4 chloride 101 CO2 22 BUN 78 creatinine 3.19 white blood count 17.4 hemoglobin 10.5 platelet count 167 On 07/07/2022 patient was seen and examined in the ICU he is intubated sedated maintained on mechanical ventilation, he is maintained on assist control FiO2 40% feet 058 arterial blood gas is improving is maintained on TPN he is maintained on IV antibiotics he is maintained on hemodialysis vital exam reveals a temperature of 97.2 pulse 75 respiration 24 blood pressure 128/48 pulse ox 100% BUN is 63 creatinine 2.86 On 07/08/2022 patient was seen and examined in the ICU he is intubated sedated maintained on mechanical ventilation he is maintained on norepinephrine for pressure support, he is maintained on IV Zosyn, he was started on hemodialysis, clinically patient is stable. His vital exam reveals a temperature of 98.7 pulse 84 respiration 24 blood pressure 132/49 pulse ox 94% on mechanical ventilation FiO2 30% On 07/09/2022 patient was seen and examined in the ICU currently he is on mechanical ventilation assist control rate of 24 FiO2 30% with a PEEP of 5, he is off propofol, he is awake and tries to answer questions with yes or no by moving his head he is moving his hands there has been a significant drop in his platelet count yesterday and today, I will check heparin induced antibodies and hold Lovenox for today, I have contacted Dr. Barajas over the phone and asked if he can switch Zosyn to a different antibiotic, otherwise patient is stable will continue to monitor closely. On 07/10/2022 patient was seen and examined in the ICU he is intubated sedated maintained on mechanical ventilation, he is on assist control rate of 24 FiO2 30% with a PEEP of 5 at this time platelet count is down to 41 Zosyn was switched yesterday by Dr. Barajas to Cefepime, heparin induced antibodies are still pending consult for hematology requested in regard to thrombocytopenia, patient is also having episodes of atrial fibrillation during dialysis he has bradycardia with a heart rate of 49 consultation for cardiology will be initiated otherwise patient is stable without significant change since yesterday. On 07/11/2022 patient was seen and examined in the ICU he is extubated entertained on oxygen via nasal cannula patient is alert and oriented and answering questions appropriately he is complaining of generalized weakness and generalized pain otherwise he denies any complaint On 07/12/2022 patient was seen and examined in the ICU he is extubated maintained on oxygen via nasal cannula, he is alert and oriented in no distress he is complaining of generalized weakness and generalized pain otherwise he denies any complaint On 07/13/2022 patient was seen and examined in the ICU, he is alert and oriented 3 in no distress there is no fever or chills no headache or dizziness no chest pain no shortness of breath no cough no nausea or vomiting no abdominal pain no diarrhea no blood in the stools he has a Russo catheter in he is complaining of right wrist pain with check x-ray he is also complaining of generalized weakness On 07/14/2022 patient was seen and examined in the ICU, he is alert and oriented 3 in no distress , he is complaining of pain in the right wrist area , otherwise he denies any complaints there is no fever or chills no headache or dizziness no chest pain no shortness of breath no cough no nausea or vomiting no abdominal pain no diarrhea no blood in the stools he has a Russo catheter in he is complaining of right wrist pain with check x-ray he is also complaining of generalized weakness. On 07/15/2022 patient was seen and examined in the ICU, he is alert and oriented 3 in no distress , there is no fever or chills no headache or dizziness no chest pain no shortness of breath no cough no nausea or vomiting no abdominal pa in no diarrhea no blood in the stools he has a Russo catheter in he is complaining of right wrist pain with check x-ray he is also complaining of generalized weakness. On 07/16/2022 patient was seen and examined on the medical floor, he is alert and oriented 3 in no apparent distress, there is no fever or chills no headache or dizziness no chest pain no shortness of breath no cough no nausea or vomiting no abdominal pain no diarrhea and no urinary symptoms, he has good urine output, nephrology are following and no hemodialysis is recommended at this time, physical therapy and occupational therapy are following. On 07/17 patient was seen and examined on the medical floor he is alert and oriented 3 in no apparent distress there is no fever or chills no headache or dizziness no chest pain no shortness of breath no cough no nausea or vomiting no abdominal pain no diarrhea and no urinary symptoms, today he is scheduled to have an ultrasound of the abdomen to assess for ascites and if there is any further need for paracentesis, he is also scheduled for a portable chest x-ray, labs are still pending, will continue to follow. On 07/18/2022 patient was seen and examined on the medical floor he is alert and oriented 3 in no apparent distress he is complaining of generalized weakness otherwise he denies any complaints there is no fever or chills no headache or dizziness no chest pain no shortness of breath no cough no nausea or vomiting no abdominal pain no diarrhea and no urinary symptoms. Today patient is scheduled for paracentesis he is also scheduled for dialysis catheter placement will follow closely Objective - Vital Signs Vital signs: Vital Signs Temp 98.4 F 07/18/22 03:52 Pulse 81 07/18/22 03:52 Resp 15 07/18/22 03:52 BP 121/56 07/18/22 03:52 Pulse Ox 95 07/18/22 09:21 FiO2 30 07/11/22 20:00 Intake & Output 07/17/22 07/18/22 07/18/22 18:59 06:59 18:59 Output Total 1001 1070 Balance -1001 -1070 Weight 107 kg Output: Urine 1000 1070 Stool 1 Other: Voiding Method Indwelling Catheter Indwelling Catheter ABP, PAP, CO, CI - Last Documented Arterial Blood Pressure 103/47 - Exam In general patient is alert and responsive in no apparent distress HEENT head normocephalic and atraumatic Neck is supple no JVD no goiter no lymphadenopathy no carotid bruit Chest examination is clear to auscultation no crackles no wheezing Cardiac exam reveals regular heart sounds S1 and S2 no gallops no murmurs Abdomen is distended with generalized tenderness, no organomegaly Extremity exam reveals no edema no cyanosis or clubbing Neurological examination reveals no gross focal deficits - Labs CBC & Chem 7: 07/18/22 05:43 07/18/22 05:43 Labs: Abnormal Lab Results - Last 24 Hours (Table) 07/17/22 07/17/22 07/18/22 Range/Units 05:12 21:47 05:43 PT (9.0-12.0) sec INR (<1.2) Sodium 136 L (137-145) mmol/L Carbon Dioxide 20 L (22-30) mmol/L BUN 99 H 93.9 H (9-20) mg/dL Creatinine 6.41 H 6.3 H (0.66-1.25) mg/dL Est GFR (CKD-EPI)AfAm 9.6 L (60.0-200.0) Est GFR (CKD-EPI)NonAf 8.3 L (60.0-200.0) Glucose 113 H (74-99) mg/dL Calcium 8.1 L 8.6 L (8.4-10.2) mg/dL Phosphorus 6.4 H (2.4-5.1) mg/dL AST 106 H (14-35) U/L ALT 120 H (10-49) U/L Alkaline Phosphatase 134 H (41-126) U/L Albumin 3.0 L (3.8-4.9) g/dL Globulin 3.4 H (1.6-3.3) g/dL Albumin/Globulin Ratio 0.88 L (1.60-3.17) g/dL 07/18/22 Range/Units 09:35 PT 17.0 H (9.0-12.0) sec INR 1.7 H (<1.2) Sodium (137-145) mmol/L Carbon Dioxide (22-30) mmol/L BUN (9-20) mg/dL Creatinine (0.66-1.25) mg/dL Est GFR (CKD-EPI)AfAm (60.0-200.0) Est GFR (CKD-EPI)NonAf (60.0-200.0) Glucose (74-99) mg/dL Calcium (8.4-10.2) mg/dL Phosphorus (2.4-5.1) mg/dL AST (14-35) U/L ALT (10-49) U/L Alkaline Phosphatase (41-126) U/L Albumin (3.8-4.9) g/dL Globulin (1.6-3.3) g/dL Albumin/Globulin Ratio (1.60-3.17) g/dL Assessment and Plan Plan: Mental status changes, cause is unclear could be related to overdose of narcotic Leukocytosis, no clear source of infection, chest x-ray and urine analysis don't show any clear evidence of infection, patient received IV steroids in the EMS and in the emergency room, will check lactic acid level and monitor CBC Acute exacerbation of COPD with wheezing on presentation, he was started on IV Solu-Medrol in the emergency room, he is on inhaled bronchodilators Evidence of acute kidney injury was elevated BUN and creatinine patient was started on IV fluid, nephrology consultation was requested Abdominal ascites, status post paracentesis 06/30/2022 with 3.5 L of fluid removed, Evidence of liver cirrhosis Mild elevation in troponin level will monitor Underlying history of hypertension Underlying history of hypothyroidism Underlying history of depression with anxiety disorder Underlying history of vitamin D deficiency Underlying history of degenerative disc disease with chronic back pain maintained on narcotics for pain management Underlying history of gastroesophageal reflux disease At this time patient is admitted to telemetry floor Will check d-dimer check lactic acid recheck CBC and CMP Continue with IV fluid and recheck renal function Consult nephrology
[2022-07-18 20:09] LABS: BUN/Creat Ratio 14.45 Ratio (12.00-20.00)
[2022-07-18] MEDS ORDERED: EPINEPHrine 10 ML SYRINGE (0.1 MG/ML) ONE (21:02)
[2022-07-18] MEDS ORDERED: SODIUM BICARB 8.4% 50 ML SYR (1 MEQ/ML) ONE (21:02)
[2022-07-18] MEDS ORDERED: NOREPINEPHRIN 4 MG-0.9% NS PMX 4 MG/250 ML ML IV ONE (21:27)
[2022-07-18 21:28] LABS: Glucose,Whole Blood 105 mg/dL (70-110)
[2022-07-18 21:33] LABS: Glucose,Whole Blood 124 mg/dL (70-110)
[2022-07-18] MEDS ORDERED: SODIUM CHLORIDE 0.9% 2,000 ML IV ONE (21:59)
[2022-07-18 22:05] LABS: Allen Test Performed? Yes
--- NOTE | 2022-07-18 22:21 | XR ---
EXAMINATION TYPE: XR chest 1V portable DATE OF EXAM: 07/18/2022 COMPARISON: Today HISTORY: Respiratory failure TECHNIQUE: Single view FINDINGS: The endotracheal tube is 3.5 cm from the srini. There is right side dual lumen jugular cat heter with tip in the superior vena cava. There is nasogastric tube in the stomach. There is some ple ural thickening at the left lung apex. No heart failure. Heart size is normal. IMPRESSION: Tubing in fairly good position. No pulmonary consolidation or heart failure. There is sandy e minimal infiltrate lateral left lung base.
[2022-07-18 22:25] LABS: INR 2.2 (<1.2); Partial Thromboplastin Time 44.9 sec (22.0-30.0); Prothrombin Time 22.2 sec (9.0-12.0)
[2022-07-18 22:28] LABS: AST 467 U/L (17-59); African American GFR (CKD) 9 (>60 ml/min/1.73 sqM); Albumin 2.1 g/dL (3.5-5.0); Albumin/Globulin Ratio 0.8; Alkaline Phosphatase 80 U/L (38-126); Anion Gap 21 mmol/L; Blood Urea Nitrogen 94 mg/dL (9-20); Calcium 8.1 mg/dL (8.4-10.2); Carbon Dioxide 15 mmol/L (22-30); Chloride 100 mmol/L (98-107); Globulin 2.7 g/dL; Glucose 88 mg/dL (74-99); Magnesium 2.2 mg/dL (1.6-2.3); Non-African American GFR(CKD) 7 (>60 ml/min/1.73 sqM); Potassium 4.6 mmol/L (3.5-5.1); Sodium 136 mmol/L (137-145); Total Bilirubin 1.3 mg/dL (0.2-1.3); Total Protein 4.8 g/dL (6.3-8.2)
[2022-07-18 22:30] LABS: ABG Base Excess -13.8 mmol/L; ABG HCO3 14 mmol/L (21-25); ABG PCO2 38 mmHg (35-45); ABG PO2 >400 mmHg (83-108); ABG TCO2 16 mmol/L (19-24)
[2022-07-18 22:34] LABS: ABG Hematocrit 16 % (34.0-46.0); ABG PH 7.19 (7.35-7.45)
[2022-07-18 22:34] LABS: ALT 195 U/L (4-49)
[2022-07-18] MEDS ORDERED: SODIUM BICARB 8.4% 50 ML SYR (1 MEQ/ML) IV STA ×2 (22:44→22:47)
[2022-07-18] MEDS ORDERED: NOREPINEPHRINE 4 MG in SODIUM CHLORIDE 0.9% 250 ML IV SCH (22:45)
[2022-07-18] MEDS ORDERED: SODIUM CHLORIDE 0.9% 1,000 ML IV ONE (22:51)
[2022-07-18 22:54] LABS: Anisocytosis Slight; Hypochromasia Marked; MCH 31.9 pg (25.0-35.0); MCHC 30.6 g/dL (31.0-37.0); Macrocytosis Moderate; Mean Platelet Volume 11.9; Platelet Count 104 k/uL (150-450); Poikilocytosis Slight; RDW 16.4 % (11.5-15.5); WBC 12.5 k/uL (3.8-10.6)
[2022-07-18] MEDS: NOREPINEPHRINE 32 MG in SODIUM CHLORIDE 0.9% 218 ML IV SCH (23:26)
[2022-07-18 23:31] LABS: HCT 18.7 % (39.0-53.0); HGB 5.7 gm/dL (13.0-17.5)
[2022-07-18 23:38] LABS: Anisocytosis Slight; Basophils % (A) 0 %; Eosinophils % (A) 0 %; Hypochromasia Marked; Lymphocytes # (A) 0.8 k/uL (1.0-4.8); Lymphocytes % (A) 7 %; MCH 31.8 pg (25.0-35.0); MCHC 30.6 g/dL (31.0-37.0); MCV 103.9 fL (80.0-100.0); Macrocytosis Moderate; Mean Platelet Volume 12.3; Monocytes # (A) 0.8 k/uL (0-1.0); Monocytes % (A) 6 %; Neutrophils # (A) 10.2 k/uL (1.3-7.7); Neutrophils % (A) 83 %; Poikilocytosis Slight; RBC 1.44 m/uL (4.30-5.90); WBC 12.3 k/uL (3.8-10.6)
[2022-07-18 23:43] LABS: HGB 4.6 gm/dL (13.0-17.5); Platelet Count 80 k/uL (150-450)
[2022-07-18 23:52] LABS: Band Neutrophils % 3 %; Lymphocytes # (M) 1.13 k/uL (1.0-4.8); Metamyelocytes # (M) 0.13 k/uL (0); Metamyelocytes % 1 %; Neutrophils % (M) 75 %; Nucleated Red Blood Cells 0 /100 WBC (0-0); Total Cells Counted 100
[2022-07-18 23:53] LABS: Anisocytosis (M) Present; Poikilocytosis (M) Present; Polychromasia Present
--- NOTE | 2022-07-19 00:01 | CONS ---
CONSULTATION REASON FOR CONSULTATION: Epistaxis. HISTORY OF PRESENT ILLNESS: The patient is a pleasant 67-year-old male, who is well known to my office. I have seen this patient previously on consultation in the hospital, sometime in August or September of 2021, for epistaxis. The patient was subsequently seen on multiple visits in my office for followup treatment for his nosebleeds. He subsequently had a surgical procedure performed in an effort to help stop his bleeding. Since that time, the patient has not had any further nosebleeds at home. However, on the afternoon of 07/17/2022, I was called at home and notified that the patient started having a moderate nosebleed. At that time, the nursing staff related that it did not appear to be bleeding too severe. They were able to get the nasal bleeding under control by applying a nasal clamp. I advised nursing staff to start the patient on Afrin nasal spray, 3 puffs in each nostril 3 times a day in an effort to vasoconstrict the nasal vasculature and stop the bleeding. I also advised him that I would see the patient on 07/18/2022 and further examine him. At the time of today's visit, the patient had just returned from an operative procedure for the placement of a catheter for hemodialysis. This patient was originally admitted on 06/21/2022 when he developed increasing altered mental status at home and he had fallen on multiple occasions. There was a question of whether or not he possibly accidentally overdosed on some of his pain medications, namely [place] and morphine.In the ER the patient was somewhat unresponsive and was subsequently admitted to ICU for definitive treatment. He responded to Narcan. The patient's stated that while in ICU, at some point he was intubated and subsequently extubated because of impending respiratory failure. He has undergone several courses of hemodialysis since his admission. He is alert and cooperative today following his surgical procedure. The nursing staff relates that he has only had minor nosebleeds since last night which were easily controlled. PAST MEDICAL HISTORY: The patient has an allergy to heparin? MEDICATIONS: He is on numerous home medications including, 1. One baby aspirin daily. 2. Proventil. 3. Trazodone. 4. Prilosec. 5. Remeron. 6. Toprol-XL. 7. Lisinopril. 8. Atarax. 9. Lasix. 10.Flonase nasal spray. 11.Synthroid. 12.Combivent. 13.Baclofen. 14.Morphine. 15.[place]. REVIEW OF SYSTEMS: CARDIOVASCULAR SYSTEM: Positive for hypertension and ASHD. RESPIRATORY SYSTEM: Positive for COPD. GASTROINTESTINAL: Positive for GERD (gastroesophageal reflux disorder). MUSCULOSKELETAL: Possible osteoarthritis. METABOLIC/ENDOCRINE SYSTEM: Positive for hypothyroidism. The remainder of the review of systems is unremarkable. PHYSICAL EXAMINATION: GENERAL: The patient is a 67-year-old male, who is alert and cooperative. HEENT: The patient is normocephalic. Tympanic membranes are normal. Middle ear spaces are free of any fluid or infection. Pupils equal, round, react to light and accommodation. Extraocular movements within normal limits. Intranasal examination reveals [id number] septal deviation to the left with bilateral compensatory hypertrophy of inferior turbinates. There are several small noted where there has been recent bleeding on the right anterior septum and possibly the left posteriorly. There is no active bleeding at this time. Examination of oropharynx does not reveal any bleeding down the posterior pharyngeal wall. Cranial nerves 2-12 and remainder of the head and neck exam is within normal limits. CHEST/CARDIOVASCULAR: Lung amado are clear, but the sounds are distant, the patient is in regular sinus rhythm. ABDOMEN: There is no evidence of any masses, megaly, or tenderness. The abdomen is soft. SKIN: Unremarkable. Musculoskeletal, neurological, and the remainder of physical exam is essentially unremarkable. IMPRESSION: Anterior/posterior epistaxis. PLAN: At this point, I would like to be somewhat conservative and continue with the Afrin nasal spray 3 puffs in each nostril 3 times daily. I want to avoid inserting any type of devices(packing or balloons) intranasally as this may provoke even further bleeding. Furthermore, I have advised nursing staff to not use any type of nasal oxygen cannulas as this may cause trauma to the nasal septum and again cause further bleeding. Instead, I recommended that they secure a facial tent from the Respiratory Department or from Surgery in the pre-op phase 1 surgical area. This will allow the patient to receive moist humidified oxygenated air without any type of nasal trauma. I will continue to see the patient on a daily basis. One of the recommendations which I will make to the patient's is that they discontinue his use of Flonase nasal spray until further notice because this can cause nasal bleeding. I do not feel that the at-home regimen of 1 baby aspirin daily will cause any problems, therefore once he is discharged, certainly he can most likely return to using that medication. I want to take this opportunity to thank you for allowing me to assist you in the care of your patient. I will continue to follow him on a daily basis while he is still in the hospital until I feel it is warranted and safe to sign off the case. If I could be of any further assistance, please feel free to call my office. EDYTA / ARMANDO: [phone] / FRANKI
[2022-07-19 00:12] LABS: Anisocytosis (M) Present; Poikilocytosis (M) Present; Polychromasia Present
[2022-07-19] MEDS: PANTOPRAZOLE 40 MG/10 ML VIAL IVP SCH ×2 (01:42→10:56)
[2022-07-19] MEDS: AMOXIC-POT CLAV 500-125 MG 1 EACH TAB PO SCH (01:42)
[2022-07-19] MEDS: OXYMETAZOLINE 0.05% NASL SPRAY 1 SPRAY BOTTLE NASAL SCH ×2 (01:44→13:00)
[2022-07-19] MEDS ORDERED: ALBUMIN HUMAN 5% 250 ML in EMPTY BAG 1 BAG IVPB STA (02:58)
[2022-07-19] MEDS ORDERED: SODIUM CHLORIDE 0.9% 2,000 ML IV ONE (03:00)
[2022-07-19] MEDS ORDERED: ALBUMIN HUMAN 5% 250 ML in EMPTY BAG 1 BAG IVPB ONE (03:20)
[2022-07-19 03:23] LABS: Glucose,Whole Blood 33 mg/dL (70-110)
[2022-07-19 03:23] LABS: Glucose,Whole Blood 35 mg/dL (70-110)
[2022-07-19] MEDS: SODIUM BICARBONATE TAB 650 MG TAB PO SCH ×2 (03:24→10:54)
[2022-07-19] MEDS: DEXTROSE 50% SYRINGE 50 ML IVP PRN ×2 (03:25→05:58)
[2022-07-19] MEDS: SODIUM CHLORIDE 0.9% 150 ML with VASOPRESSIN 60 UNIT IV SCH ×4 (03:25→04:15)
[2022-07-19 03:30] LABS: Anisocytosis Slight; Basophils # (A) 0.1 k/uL (0-0.2); Basophils % (A) 1 %; Eosinophils # (A) 0.1 k/uL (0-0.7); Eosinophils % (A) 0 %; HCT 22.5 % (39.0-53.0); Hypochromasia Marked; Lymphocytes # (A) 1.1 k/uL (1.0-4.8); Lymphocytes % (A) 6 %; MCH 29.6 pg (25.0-35.0); MCHC 29.4 g/dL (31.0-37.0); MCV 100.7 fL (80.0-100.0); Macrocytosis Slight; Mean Platelet Volume 12.1; Monocytes # (A) 1.7 k/uL (0-1.0); Monocytes % (A) 9 %; Neutrophils # (A) 15.2 k/uL (1.3-7.7); Neutrophils % (A) 83 %; Poikilocytosis Slight; RBC 2.24 m/uL (4.30-5.90); RDW 18.3 % (11.5-15.5); WBC 18.3 k/uL (3.8-10.6)
[2022-07-19 03:45] LABS: African American GFR (CKD) 9 (>60 ml/min/1.73 sqM); Albumin 1.7 g/dL (3.5-5.0); Albumin/Globulin Ratio 0.8; Alkaline Phosphatase 53 U/L (38-126); Anion Gap 22 mmol/L; Blood Urea Nitrogen 82 mg/dL (9-20); Calcium 6.7 mg/dL (8.4-10.2); Carbon Dioxide 13 mmol/L (22-30); Chloride 106 mmol/L (98-107); Globulin 2.2 g/dL; Non-African American GFR(CKD) 8 (>60 ml/min/1.73 sqM); Potassium 5.3 mmol/L (3.5-5.1); Sodium 141 mmol/L (137-145); Total Bilirubin 1.3 mg/dL (0.2-1.3); Total Protein 3.9 g/dL (6.3-8.2)
[2022-07-19 03:47] LABS: Glucose 28 mg/dL (74-99)
[2022-07-19 03:50] LABS: Platelet Count 60 k/uL (150-450)
[2022-07-19 03:53] LABS: ALT 543 U/L (4-49); HGB 6.6 gm/dL (13.0-17.5)
[2022-07-19 03:56] LABS: Glucose,Whole Blood 103 mg/dL (70-110)
[2022-07-19] MEDS: NOREPINEPHRINE 32 MG in SODIUM CHLORIDE 0.9% 218 ML IV SCH ×2 (04:16→12:19)
[2022-07-19 04:35] LABS: Anisocytosis (M) Present; Large Platelets Present; Poikilocytosis (M) Present; Polychromasia Present
[2022-07-19] MEDS: SODIUM CHLORIDE 0.9% 1,000 ML IV SCH ×2 (04:37→10:53)
[2022-07-19 05:00] LABS: AST 1637 U/L (17-59)
[2022-07-19 05:58] LABS: Glucose,Whole Blood 69 mg/dL (70-110)
[2022-07-19] MEDS: MIDODRINE 5 MG TAB PO SCH ×2 (06:51→14:50)
[2022-07-19] MEDS: LEVOTHYROXINE 88 MCG TAB PO SCH (06:51)
[2022-07-19] MEDS: CALCIUM ACETATE 667 MG TAB PO SCH (06:51)
[2022-07-19 07:00] LABS: Glucose,Whole Blood 145 mg/dL (70-110)
--- NOTE | 2022-07-19 07:11 | XR ---
EXAMINATION TYPE: XR chest 1V portable DATE OF EXAM: 07/19/2022 5:44 AM COMPARISON: Chest radiographs from 07/18/2022 TECHNIQUE: XR chest 1V portable Frontal view of the chest. CLINICAL INDICATION:Male, 67 years old with history of Tube placement; FINDINGS: Patient is rotated which limits evaluation. Lungs/Pleura: There is no evidence of pleural effusion, focal consolidation, or pneumothorax. Pulmonary vascularity: Unremarkable. Heart/mediastinum: Cardiomediastinal silhouette is unremarkable. Musculoskeletal: No acute osseous pathology. Lines/Tubes: Endotracheal tube with distal tip 3.9 cm above the srini Nasogastric tube with its distal tip and side-port projecting under the diaphragm. Right side dual-lumen jugular catheter with tip in the superior vena cava. IMPRESSION: Stable support tubes. No focal consolidation.
[2022-07-19 08:10] LABS: ABG Base Excess -27.8 mmol/L; ABG Oxygen Saturation 99.7 % (94-97); ABG PCO2 27 mmHg (35-45); ABG PO2 233 mmHg (83-108); ABG TCO2 6 mmol/L (19-24); Allen Test Performed? Yes
[2022-07-19 08:11] LABS: ABG PH 6.89 (7.35-7.45)
[2022-07-19 08:12] LABS: ABG HCO3 5 mmol/L (21-25); ABG Hematocrit 12 % (34.0-46.0)
[2022-07-19] MEDS ORDERED: SODIUM BICARB 8.4% 50 ML SYR (1 MEQ/ML) IV STA ×2 (08:18→08:53)
[2022-07-19 08:22] LABS: Glucose,Whole Blood 93 mg/dL (70-110)
[2022-07-19] MEDS ORDERED: VANCOMYCIN IV PER PHARMACY 1 EACH MISC MISCELLANE PRN (08:25)
--- NOTE | 2022-07-19 08:26 | P.PN ---
Subjective Progress Note Date: 07/19/22 07/19/2020, the patient is being seen for a follow-up. Events from yesterday was noted and the patient had a very complicated night where he was brought to the intensive care unit after having a brief cardiac pulmonary arrest. Noted the patient was seen in the medical floor yesterday. The patient was supposed to undergo a permacath insertion and large old paracentesis. Both of the procedures were performed and the patient has a permacath inserted by vascular surgery into the right subclavian vein. The patient also had a large foreign paracenteses were a total of 3.5 L of ascitic fluid was removed from the abdomen. While having dialysis, the patient went into a cardiac arrest.the patient apparently went into a PEA rhythm and he went subsequent into V. tach. He did not receive any defibrillation and he converted to normal sinus rhythm. He was unresponsive. He was intubated and placed on mechanical ventilator and he was brought into the intensive care unit. He was in a shock state with profound hypotension. Overnight, the patient was resuscitated aggressively regarding hypotension. A triple lumen catheter was established into the left femoral vein and the patient received a total of 5 L of normal saline, 2 doses of 5% albumin a total of 500 mL, 2 units of packed RBC, 2 units of fresh frozen plasma. There was gradual escalation of the pressor doses and the patient is currently on norepinephrine running at 1 mcg/kg per minute. Patient is also on physiologic dose of vasopressin. Most recent blood pressure is still soft with a systolic probably somewhere between the 70s in the 90s. Unable to establish an adequate blood pressure. Cardiac rhythm remains sinus. Mother the patient seems to be in a DIC state. He is coagulopathic. He has developed bleeding from puncture sites including the permacath, right upper extremity IV line, left femoral triple-lumen catheter sites. As such, the patient was given a total of 2 units of fresh frozen plasma. Most recent blood work from this morning showed a hemoglobin coming from 4.6 up to 6.6 after a 2 units packed RBC transfusion. Hemoglobin is currently at 6.6. The white cell count of 18.3. Platelet count dropped down to 60,000. At the same time, the rest of the electrolytes show a sodium of 141, potassium of 5.3, serum bicarbonate 13, anion gap of 22, BUN of 82 with a creatinine of 6.6. The patient is currently on a mechanical ventilator. The patient on no sedation as the patient has not required sedation since his cardiac arrest. He is an assist-control mode rate of 16, tidal volume of 500, FiO2 of 50% with a PEEP of 5. Initial blood gases from yesterday showed a pH of 7.19 with a pCO2 of 38 and pO2 of 400 and based on that FiO2 was not found to 50%. Subsequent blood gases from this morning shows a pH of 6.89 with a serum bicarb of 27 and pO2 of 233. Chest x-ray shows adequate expansion of both lungs. There is no evidence of any pneumothorax. There is no evidence of any consolidation. No evidence of any pleural effusion. Permacath and is a good location and the orotracheal tube is also in good location. Patient is having some limited amount of bloody secretions from his orotracheal tube. No urine output. The patient has a Russo catheter in place. He is hypothermic and currently is receiving external warming. Temperature was as low as 94F. Blood work also shows a component of shock liver. AST is up to 1637 and the ALT is up to 543 with a bilirubin of 1.3. Albumin is down to 1.7 with a total protein of 3.9. The troponin was at 0.09. Lactic acid level was as high as 17 from a baseline of 10 yesterday. Objective - Vital Signs Vital signs: Vital Signs Temp 96.3 F L 07/19/22 07:51 Pulse 113 H 07/19/22 07:51 Resp 21 07/19/22 07:51 BP 71/35 07/19/22 07:51 Pulse Ox 100 07/19/22 07:00 FiO2 50 07/19/22 07:03 Intake & Output 07/18/22 07/19/22 07/19/22 18:59 06:59 18:59 Intake Total 140 5210.530 218 Output Total 626 0 0 Balance -486 5210.530 218 Weight 109.3 kg Intake: IV 140 0.9 @ 10 40 Intake, IV Titration 3937.530 Amount Norepinephrine 32 mg In 237.530 Sodium Chloride 0.9% 218 ml @ 0.05 MCG/KG/MIN 2. 508 mls/hr IV .Q24H [facility] Rx#:[id number] Sodium Chloride 0.9% 1, 700 000 ml @ 100 mls/hr IV . Q10H [facility] Rx#:[id number] Sodium Chloride 0.9% 1, 1000 000 ml @ 999 mls/hr IV . Q1H1M [facility] Rx#:[id number] Sodium Chloride 0.9% 2, 2000 000 ml @ 999 mls/hr IV . Q2H1M [facility] Rx#:[id number] Blood Product 773 218 Ffp 24 Pher Acda Unit 216 [id number] Ffp 24 Pher Acda Cnt2 0 218 Unit [id number] Rc As-1 Unit 0 [id number] Rc Pheresis 2 As3 Unit 280 [id number] Rc Pheresis 2 As3 Unit 277 [id number] Hemodialysis 500 Output: Urine 625 0 0 Stool 1 Other: Voiding Method Indwelling Catheter Indwelling Catheter ABP, PAP, CO, CI - Last Documented Arterial Blood Pressure 40/37 - Exam GENERAL EXAM: Awake and alert 67-year-old male, patient is currently unresponsive on a mechanical ventilator. Orotracheal and orogastric tube are both in place. There is some bloody secretions within the orotracheal tube. On examination, the patient has bleeding from puncture sites including the permacath over the right anterior chest/subclavian area and triple-lumen catheter in the left femoral vein area. The arterial line site has bled also and there is compression dressing on it and the right radial area. HEAD: Normocephalic/atraumatic. EYES: Normal reaction of pupils, equal size. Conjunctiva pink, sclera white. NOSE: Clear with pink turbinates. THROAT: No erythema or exudates. NECK: No masses, no JVD, no thyroid enlargement, no adenopathy. CHEST: No chest wall deformity. Symmetrical expansion. LUNGS: Equal air entry with no crackles, wheeze, rhonchi or dullness. CVS: Regular rate and rhythm, normal S1 and S2, no gallops, no murmurs, no rubs ABDOMEN: Distended, tympanic to percussion, nontender. No hepatosplenomegaly, normal bowel sounds, no guarding or rigidity. EXTREMITIES: No clubbing, no edema, no cyanosis, absent pulses in all 4 extremities and extremity are cold and clammy MUSCULOSKELETAL: unable to perform SPINE: No scoliosis or deformity SKIN: No rashes CENTRAL NERVOUS SYSTEM: patient is unresponsive at this point in time. Patient is not withdrawing to deep painful stimulation. The patient is synchronous with the mechanical ventilator. The patient has equal and symmetrical pupils around 5 mm in size which is reactive to light. Positive cough and a gag. Motor function cannot be assessed. Sensory functions cannot be assessed. Reflexes are diminished in all 4 extremities. Negative Babinski. Negative clonus. - Labs CBC & Chem 7: 07/19/22 03:20 07/19/22 03:20 Labs: Abnormal Lab Results - Last 24 Hours (Table) 07/18/22 07/18/22 07/18/22 Range/Units 05:43 05:43 06:20 WBC (3.8-10.6) k/uL RBC 2.97 L (4.40-5.60) X 10*6/uL Hgb 9.4 L (13.0-17.0) g/dL Hct 29.0 L (39.6-50.0) % MCV 97.6 H (80.0-97.0) fL MCHC (31.0-37.0) g/dL RDW 15.7 H (11.5-14.5) % Plt Count 85 L (140-440) X 10*3/uL Plt Count Comment DECREASED A MPV 13.0 H (9.5-12.2) fL Immature Gran # 0.05 H (0.00-0.04) X 10*3/uL Neutrophils # (1.3-7.7) k/uL Neutrophils # (Manual) (1.3-7.7) k/uL Lymphocytes # (1.0-4.8) k/uL Monocytes # 1.26 H (0.20-1.00) X 10*3/uL Monocytes # (Manual) (0-1.0) k/uL Eosinophils # 0.44 H (0.04-0.35) X 10*3/uL Metamyelocytes # (Man) (0) k/uL PT (9.0-12.0) sec INR (<1.2) APTT (22.0-30.0) sec ABG pH (7.35-7.45) ABG pO2 (83-108) mmHg ABG HCO3 (21-25) mmol/L ABG Total CO2 (19-24) mmol/L ABG O2 Saturation (94-97) % ABG Hematocrit (34.0-46.0) % Hemoglobin (13.0-17.5) gm/dL Sodium (137-145) mmol/L Potassium (3.5-5.1) mmol/L Carbon Dioxide (22-30) mmol/L BUN 93.9 H (9.0-27.0) mg/dL Creatinine 6.3 H (0.6-1.5) mg/dL Est GFR (CKD-EPI)AfAm 9.6 L (60.0-200.0) Est GFR (CKD-EPI)NonAf 8.3 L (60.0-200.0) Glucose (74-99) mg/dL POC Glucose (mg/dL) (70-110) mg/dL Plasma Lactic Acid Adalid (0.7-2.0) mmol/L Calcium 8.6 L (8.7-10.3) mg/dL AST 106 H (14-35) U/L ALT 120 H (10-49) U/L Alkaline Phosphatase 134 H (41-126) U/L Lactate Dehydrogenase 285 H (120-246) U/L Troponin I (0.000-0.034) ng/mL Total Protein (6.3-8.2) g/dL Albumin 3.0 L (3.8-4.9) g/dL Globulin 3.4 H (1.6-3.3) g/dL Albumin/Globulin Ratio 0.88 L (1.60-3.17) g/dL Crossmatch 07/18/22 07/18/22 07/18/22 Range/Units 09:35 21:13 22:04 WBC 12.5 H (3.8-10.6) k/uL RBC 1.80 L (4.40-5.60) X 10*6/uL Hgb 5.7 L* D (13.0-17.0) g/dL Hct 18.7 L* (39.6-50.0) % MCV 104.0 H (80.0-97.0) fL MCHC 30.6 L (31.0-37.0) g/dL RDW 16.4 H (11.5-14.5) % Plt Count 104 L D (140-440) X 10*3/uL Plt Count Comment MPV (9.5-12.2) fL Immature Gran # (0.00-0.04) X 10*3/uL Neutrophils # (1.3-7.7) k/uL Neutrophils # (Manual) 9.70 H (1.3-7.7) k/uL Lymphocytes # (1.0-4.8) k/uL Monocytes # (0.20-1.00) X 10*3/uL Monocytes # (Manual) 1.50 H (0-1.0) k/uL Eosinophils # (0.04-0.35) X 10*3/uL Metamyelocytes # (Man) 0.13 H (0) k/uL PT 17.0 H (9.0-12.0) sec INR 1.7 H (<1.2) APTT (22.0-30.0) sec ABG pH (7.35-7.45) ABG pO2 (83-108) mmHg ABG HCO3 (21-25) mmol/L ABG Total CO2 (19-24) mmol/L ABG O2 Saturation (94-97) % ABG Hematocrit (34.0-46.0) % Hemoglobin (13.0-17.5) gm/dL Sodium (137-145) mmol/L Potassium (3.5-5.1) mmol/L Carbon Dioxide (22-30) mmol/L BUN (9.0-27.0) mg/dL Creatinine (0.6-1.5) mg/dL Est GFR (CKD-EPI)AfAm (60.0-200.0) Est GFR (CKD-EPI)NonAf (60.0-200.0) Glucose (74-99) mg/dL POC Glucose (mg/dL) 124 H (70-110) mg/dL Plasma Lactic Acid Adalid (0.7-2.0) mmol/L Calcium (8.7-10.3) mg/dL AST (14-35) U/L ALT (10-49) U/L Alkaline Phosphatase (41-126) U/L Lactate Dehydrogenase (120-246) U/L Troponin I (0.000-0.034) ng/mL Total Protein (6.3-8.2) g/dL Albumin (3.8-4.9) g/dL Globulin (1.6-3.3) g/dL Albumin/Globulin Ratio (1.60-3.17) g/dL Crossmatch 07/18/22 07/18/22 07/18/22 Range/Units 22:04 22:04 22:04 WBC (3.8-10.6) k/uL RBC (4.40-5.60) X 10*6/uL Hgb (13.0-17.0) g/dL Hct (39.6-50.0) % MCV (80.0-97.0) fL MCHC (31.0-37.0) g/dL RDW (11.5-14.5) % Plt Count (140-440) X 10*3/uL Plt Count Comment MPV (9.5-12.2) fL Immature Gran # (0.00-0.04) X 10*3/uL Neutrophils # (1.3-7.7) k/uL Neutrophils # (Manual) (1.3-7.7) k/uL Lymphocytes # (1.0-4.8) k/uL Monocytes # (0.20-1.00) X 10*3/uL Monocytes # (Manual) (0-1.0) k/uL Eosinophils # (0.04-0.35) X 10*3/uL Metamyelocytes # (Man) (0) k/uL PT (9.0-12.0) sec INR (<1.2) APTT (22.0-30.0) sec ABG pH (7.35-7.45) ABG pO2 (83-108) mmHg ABG HCO3 (21-25) mmol/L ABG Total CO2 (19-24) mmol/L ABG O2 Saturation (94-97) % ABG Hematocrit (34.0-46.0) % Hemoglobin (13.0-17.5) gm/dL Sodium 136 L (137-145) mmol/L Potassium (3.5-5.1) mmol/L Carbon Dioxide 15 L (22-30) mmol/L BUN 94 H (9.0-27.0) mg/dL Creatinine 6.97 H (0.6-1.5) mg/dL Est GFR (CKD-EPI)AfAm (60.0-200.0) Est GFR (CKD-EPI)NonAf (60.0-200.0) Glucose (74-99) mg/dL POC Glucose (mg/dL) (70-110) mg/dL Plasma Lactic Acid Adalid 10.2 H* (0.7-2.0) mmol/L Calcium 8.1 L (8.7-10.3) mg/dL AST 467 H (14-35) U/L ALT 195 H (10-49) U/L Alkaline Phosphatase (41-126) U/L Lactate Dehydrogenase (120-246) U/L Troponin I 0.099 H* (0.000-0.034) ng/mL Total Protein 4.8 L (6.3-8.2) g/dL Albumin 2.1 L (3.8-4.9) g/dL Globulin (1.6-3.3) g/dL Albumin/Globulin Ratio (1.60-3.17) g/dL Crossmatch 07/18/22 07/18/22 07/18/22 Range/Units 22:04 22:25 23:12 WBC 12.3 H (3.8-10.6) k/uL RBC 1.44 L (4.40-5.60) X 10*6/uL Hgb 4.6 L* (13.0-17.0) g/dL Hct 15.0 L* (39.6-50.0) % MCV 103.9 H (80.0-97.0) fL MCHC 30.6 L (31.0-37.0) g/dL RDW 17.0 H (11.5-14.5) % Plt Count 80 L (140-440) X 10*3/uL Plt Count Comment MPV (9.5-12.2) fL Immature Gran # (0.00-0.04) X 10*3/uL Neutrophils # 10.2 H (1.3-7.7) k/uL Neutrophils # (Manual) (1.3-7.7) k/uL Lymphocytes # 0.8 L (1.0-4.8) k/uL Monocytes # (0.20-1.00) X 10*3/uL Monocytes # (Manual) (0-1.0) k/uL Eosinophils # (0.04-0.35) X 10*3/uL Metamyelocytes # (Man) (0) k/uL PT 22.2 H (9.0-12.0) sec INR 2.2 H (<1.2) APTT 44.9 H (22.0-30.0) sec ABG pH 7.19 L* (7.35-7.45) ABG pO2 >400 H (83-108) mmHg ABG HCO3 14 L (21-25) mmol/L ABG Total CO2 16 L (19-24) mmol/L ABG O2 Saturation 100.0 H (94-97) % ABG Hematocrit 16 L* (34.0-46.0) % Hemoglobin 5.3 L* (13.0-17.5) gm/dL Sodium (137-145) mmol/L Potassium (3.5-5.1) mmol/L Carbon Dioxide (22-30) mmol/L BUN (9.0-27.0) mg/dL Creatinine (0.6-1.5) mg/dL Est GFR (CKD-EPI)AfAm (60.0-200.0) Est GFR (CKD-EPI)NonAf (60.0-200.0) Glucose (74-99) mg/dL POC Glucose (mg/dL) (70-110) mg/dL Plasma Lactic Acid Adalid (0.7-2.0) mmol/L Calcium (8.7-10.3) mg/dL AST (14-35) U/L ALT (10-49) U/L Alkaline Phosphatase (41-126) U/L Lactate Dehydrogenase (120-246) U/L Troponin I (0.000-0.034) ng/mL Total Protein (6.3-8.2) g/dL Albumin (3.8-4.9) g/dL Globulin (1.6-3.3) g/dL Albumin/Globulin Ratio (1.60-3.17) g/dL Crossmatch 07/19/22 07/19/22 07/19/22 Range/Units 00:00 03:19 03:20 WBC 18.3 H (3.8-10.6) k/uL RBC 2.24 L (4.40-5.60) X 10*6/uL Hgb 6.6 L* D (13.0-17.0) g/dL Hct 22.5 L (39.6-50.0) % MCV 100.7 H (80.0-97.0) fL MCHC 29.4 L (31.0-37.0) g/dL RDW 18.3 H (11.5-14.5) % Plt Count 60 L (140-440) X 10*3/uL Plt Count Comment MPV (9.5-12.2) fL Immature Gran # (0.00-0.04) X 10*3/uL Neutrophils # 15.2 H (1.3-7.7) k/uL Neutrophils # (Manual) (1.3-7.7) k/uL Lymphocytes # (1.0-4.8) k/uL Monocytes # 1.7 H (0.20-1.00) X 10*3/uL Monocytes # (Manual) (0-1.0) k/uL Eosinophils # (0.04-0.35) X 10*3/uL Metamyelocytes # (Man) (0) k/uL PT (9.0-12.0) sec INR (<1.2) APTT (22.0-30.0) sec ABG pH (7.35-7.45) ABG pO2 (83-108) mmHg ABG HCO3 (21-25) mmol/L ABG Total CO2 (19-24) mmol/L ABG O2 Saturation (94-97) % ABG Hematocrit (34.0-46.0) % Hemoglobin (13.0-17.5) gm/dL Sodium (137-145) mmol/L Potassium (3.5-5.1) mmol/L Carbon Dioxide (22-30) mmol/L BUN (9.0-27.0) mg/dL Creatinine (0.6-1.5) mg/dL Est GFR (CKD-EPI)AfAm (60.0-200.0) Est GFR (CKD-EPI)NonAf (60.0-200.0) Glucose (74-99) mg/dL POC Glucose (mg/dL) 33 L (70-110) mg/dL Plasma Lactic Acid Adalid (0.7-2.0) mmol/L Calcium (8.7-10.3) mg/dL AST (14-35) U/L ALT (10-49) U/L Alkaline Phosphatase (41-126) U/L Lactate Dehydrogenase (120-246) U/L Troponin I (0.000-0.034) ng/mL Total Protein (6.3-8.2) g/dL Albumin (3.8-4.9) g/dL Globulin (1.6-3.3) g/dL Albumin/Globulin Ratio (1.60-3.17) g/dL Crossmatch See Detail 07/19/22 07/19/22 07/19/22 Range/Units 03:20 03:20 03:20 WBC (3.8-10.6) k/uL RBC (4.40-5.60) X 10*6/uL Hgb (13.0-17.0) g/dL Hct (39.6-50.0) % MCV (80.0-97.0) fL MCHC (31.0-37.0) g/dL RDW (11.5-14.5) % Plt Count (140-440) X 10*3/uL Plt Count Comment MPV (9.5-12.2) fL Immature Gran # (0.00-0.04) X 10*3/uL Neutrophils # (1.3-7.7) k/uL Neutrophils # (Manual) (1.3-7.7) k/uL Lymphocytes # (1.0-4.8) k/uL Monocytes # (0.20-1.00) X 10*3/uL Monocytes # (Manual) (0-1.0) k/uL Eosinophils # (0.04-0.35) X 10*3/uL Metamyelocytes # (Man) (0) k/uL PT (9.0-12.0) sec INR (<1.2) APTT (22.0-30.0) sec ABG pH (7.35-7.45) ABG pO2 (83-108) mmHg ABG HCO3 (21-25) mmol/L ABG Total CO2 (19-24) mmol/L ABG O2 Saturation (94-97) % ABG Hematocrit (34.0-46.0) % Hemoglobin (13.0-17.5) gm/dL Sodium (137-145) mmol/L Potassium 5.3 H (3.5-5.1) mmol/L Carbon Dioxide 13 L (22-30) mmol/L BUN 82 H (9.0-27.0) mg/dL Creatinine 6.66 H (0.6-1.5) mg/dL Est GFR (CKD-EPI)AfAm (60.0-200.0) Est GFR (CKD-EPI)NonAf (60.0-200.0) Glucose 28 L* (74-99) mg/dL POC Glucose (mg/dL) 35 L (70-110) mg/dL Plasma Lactic Acid Adalid 15.0 H* (0.7-2.0) mmol/L Calcium 6.7 L (8.7-10.3) mg/dL AST 1637 H (14-35) U/L ALT 543 H (10-49) U/L Alkaline Phosphatase (41-126) U/L Lactate Dehydrogenase (120-246) U/L Troponin I (0.000-0.034) ng/mL Total Protein 3.9 L (6.3-8.2) g/dL Albumin 1.7 L (3.8-4.9) g/dL Globulin (1.6-3.3) g/dL Albumin/Globulin Ratio (1.60-3.17) g/dL Crossmatch 07/19/22 07/19/22 07/19/22 Range/Units 05:56 06:59 07:01 WBC (3.8-10.6) k/uL RBC (4.40-5.60) X 10*6/uL Hgb (13.0-17.0) g/dL Hct (39.6-50.0) % MCV (80.0-97.0) fL MCHC (31.0-37.0) g/dL RDW (11.5-14.5) % Plt Count (140-440) X 10*3/uL Plt Count Comment MPV (9.5-12.2) fL Immature Gran # (0.00-0.04) X 10*3/uL Neutrophils # (1.3-7.7) k/uL Neutrophils # (Manual) (1.3-7.7) k/uL Lymphocytes # (1.0-4.8) k/uL Monocytes # (0.20-1.00) X 10*3/uL Monocytes # (Manual) (0-1.0) k/uL Eosinophils # (0.04-0.35) X 10*3/uL Metamyelocytes # (Man) (0) k/uL PT (9.0-12.0) sec INR (<1.2) APTT (22.0-30.0) sec ABG pH (7.35-7.45) ABG pO2 (83-108) mmHg ABG HCO3 (21-25) mmol/L ABG Total CO2 (19-24) mmol/L ABG O2 Saturation (94-97) % ABG Hematocrit (34.0-46.0) % Hemoglobin (13.0-17.5) gm/dL Sodium (137-145) mmol/L Potassium (3.5-5.1) mmol/L Carbon Dioxide (22-30) mmol/L BUN (9.0-27.0) mg/dL Creatinine (0.6-1.5) mg/dL Est GFR (CKD-EPI)AfAm (60.0-200.0) Est GFR (CKD-EPI)NonAf (60.0-200.0) Glucose (74-99) mg/dL POC Glucose (mg/dL) 69 L 145 H (70-110) mg/dL Plasma Lactic Acid Adalid 17.7 H* (0.7-2.0) mmol/L Calcium (8.7-10.3) mg/dL AST (14-35) U/L ALT (10-49) U/L Alkaline Phosphatase (41-126) U/L Lactate Dehydrogenase (120-246) U/L Troponin I (0.000-0.034) ng/mL Total Protein (6.3-8.2) g/dL Albumin (3.8-4.9) g/dL Globulin (1.6-3.3) g/dL Albumin/Globulin Ratio (1.60-3.17) g/dL Crossmatch Assessment and Plan Plan: Assessment: acute cardiac arrest, Exact etiology is not clear. The downtime was estimated to be around less than 5 minutes and the patient received CPR and the patient did not receive any cardioversion or defibrillation. The patient was intubated and placed on a mechanical ventilator and the patient got transferred to the intensive care unit. Mother the patient was undergoing dialysis at time of the cardiac arrest. The patient said also large old paracentesis prior to that. Hypovolemia and hypotension could've contributed to his cardiac arrest. Severe metabolic acidosis, lactic acidosis Severe shock and the patient is currently on high-dose pressors and the patient was aggressively resuscitated IV fluids and currently remains hypotensive acute ventilator failure secondary to cardiac arrest, currently intubated on a mechanical ventilator. None hypoxic anemia with acute drop in hemoglobin down to 4.6 posttransfusion with a total of 2 units of packed RBCs Coagulopathy, rule out DIC, and bleeding from puncture sites Thrombocytopenia history of Bacteremia related to strep agalactiae, possibly abdominal source, currently on IV Unasyn and awaiting fluids culture from the ascitic fluid was collected. Cultures are negative for now. Ileus, still active in her abdomen remains distended Ascites post paracentesis and the cultures are negative, the patient received another paracentesis with a total of 3.5 L of fluid removed Liquidy diarrhea probably related to laxatives, currently stable history ofAcute GI blood loss anemia, with passing maroon stools starting on 06/23/2022 Acute kidney injury related to sepsis, the patient is currently hemodialysis dependent and the patient has a permacath in the right subclavian Multiple falls at homealong with a very poor baseline performance and functional status History of opiate dependence History of COPD/chronic bronchial asthma, unspecified History of chronic back pain History of anxiety Hypertension, history of Hyperlipidemia Abdominal asciteswith suspected chronic liver disease, status post paracentesis 06/30/2022 with 3.6 L of straw-colored fluid removed, another 3.5 L removed on 07/18/2022 Plan: ventilator support Drop the FiO2 down to 40% Give the patient total of 150 mEq of sodium bicarbonate immediately and start a maintenance of bicarb infusion with 150 mEq at the rate of 150 mL an hour Monitor lactic acid level Monitor blood gases Give the patient additional 2 units of packed RBC an additional 2 units of fresh frozen plasma and repeat the coagulation profile and CBC Monitor lactic acid level IV Zosyn IV vancomycin Establish an arterial line if possible Hold enteral feeding for now Obtain echocardiogram to reevaluate LV function Not stable enough for a CAT scan of the brain at this point in time CODE STATUS remains full Continue resuscitative efforts We'll make further recommendations based on his progress. Very poor performance and functional status at baseline and 30 poor outcome baseline above-mentioned comorbidities. Critically care evaluation was done and more than 1 hour Time with Patient: Greater than 30
[2022-07-19] MEDS ORDERED: DEXTROSE 5% IN WATER 1,000 ML with SODIUM BICARB (1 MEQ/ML) 150 ML IV SCH (08:30)
[2022-07-19] MEDS ORDERED: PIPERACILLIN-TAZOBACTAM 3.375 GM in SODIUM CHLORIDE 0.9% 100 ML IVPB SCH ×2 (08:30→09:00)
[2022-07-19] MEDS ORDERED: VANCOMYCIN 1,750 MG in SODIUM CHLORIDE 0.9% 500 ML 500 ML IVPB SCH (08:45)
[2022-07-19] MEDS ORDERED: INSULIN REGULAR 100 UNIT/ML VIAL (IV) IV ONE (08:54)
[2022-07-19] MEDS ORDERED: DEXTROSE 50% SYRINGE 50 ML IVP STA (08:55)
[2022-07-19] MEDS ORDERED: CHLORHEXIDINE GLUCONATE 15 ML CUP MUCOUS MEM SCH (09:00)
[2022-07-19] MEDS: METOPROLOL SUCCINATE (ER) 25 MG TAB.ER.24H PO SCH (09:03)
[2022-07-19 09:18] LABS: Glucose,Whole Blood 80 mg/dL (70-110)
[2022-07-19] MEDS ORDERED: DESMOPRESSIN ACETATE 26 MCG in SODIUM CHLORIDE 0.9% 50 ML IVPB ONE (09:23)
[2022-07-19] MEDS ORDERED: PHYTONADIONE 5 MG in SODIUM CHLORIDE 0.9% 50 ML IVPB STA (09:25)
--- NOTE | 2022-07-19 09:25 | P.PN ---
Subjective Patient is seen in follow-up for acute kidney injury. Started on hemodialysis 07/05/2022. Last hemodialysis was 07/11/2022. Patient had a permacath placed 07/18/2022 and dialysis was attempted last night. Within the first 10 minutes of dialysis patient had cardiac arrest and dialysis was immediately terminated. Blood work showed a hemoglobin of 4.6. He was subsequently transferred to the ICU and is currently intubated. He is on high dose of Levophed and vasopressin. He has received 2 units of blood and receiving a third unit today. He also received FFP. He also received a dose of DDAVP yesterday. Hemoglobin this morning was 6.6. Patient is oliguric. Patient received IV albumin and also 5 L of normal saline bolus overnight. Vital signs are unstable. Tachycardic and hypotensive. General: Intubated. HEENT: On nasal cannula. LUNGS: Breath sounds decreased. HEART: Tachycardic. ABDOMEN: Soft, mild distention. EXTREMITITES: 2+ edema. Objective - Vital Signs Vital signs: Vital Signs Temp 96.4 F L 07/19/22 08:51 Pulse 124 H 07/19/22 08:51 Resp 25 H 07/19/22 08:51 BP 99/28 07/19/22 08:51 Pulse Ox 100 07/19/22 07:00 FiO2 40 07/19/22 08:15 Intake & Output 07/18/22 07/19/22 07/19/22 18:59 06:59 18:59 Intake Total 140 5210.530 528 Output Total 626 0 0 Balance -486 5210.530 528 Weight 109.3 kg Intake: IV 140 0.9 @ 10 40 Intake, IV Titration 3937.530 Amount Norepinephrine 32 mg In 237.530 Sodium Chloride 0.9% 218 ml @ 0.05 MCG/KG/MIN 2. 508 mls/hr IV .Q24H [facility] Rx#:[id number] Sodium Chloride 0.9% 1, 700 000 ml @ 100 mls/hr IV . Q10H [facility] Rx#:[id number] Sodium Chloride 0.9% 1, 1000 000 ml @ 999 mls/hr IV . Q1H1M ONE Rx#:[id number] Sodium Chloride 0.9% 2, 2000 000 ml @ 999 mls/hr IV . Q2H1M ONE Rx#:[id number] Blood Product 773 528 Ffp 24 Pher Acda Unit 216 [id number] Ffp 24 Pher Acda Cnt2 0 218 Unit [id number] Rc As-1 Unit 310 [id number] Rc Pheresis 2 As3 Unit 280 [id number] Rc Pheresis 2 As3 Unit 277 [id number] Hemodialysis 500 Output: Urine 625 0 0 Stool 1 Other: Voiding Method Indwelling Catheter Indwelling Catheter ABP, PAP, CO, CI - Last Documented Arterial Blood Pressure 40/37 - Labs CBC & Chem 7: 07/19/22 03:20 07/19/22 03:20 Labs: Abnormal Lab Results - Last 24 Hours (Table) 07/18/22 07/18/22 07/18/22 Range/Units 05:43 06:20 09:35 WBC (3.8-10.6) k/uL RBC 2.97 L (4.40-5.60) X 10*6/uL Hgb 9.4 L (13.0-17.0) g/dL Hct 29.0 L (39.6-50.0) % MCV 97.6 H (80.0-97.0) fL MCHC (31.0-37.0) g/dL RDW 15.7 H (11.5-14.5) % Plt Count 85 L (140-440) X 10*3/uL Plt Count Comment DECREASED A MPV 13.0 H (9.5-12.2) fL Immature Gran # 0.05 H (0.00-0.04) X 10*3/uL Neutrophils # (1.3-7.7) k/uL Neutrophils # (Manual) (1.3-7.7) k/uL Lymphocytes # (1.0-4.8) k/uL Monocytes # 1.26 H (0.20-1.00) X 10*3/uL Monocytes # (Manual) (0-1.0) k/uL Eosinophils # 0.44 H (0.04-0.35) X 10*3/uL Metamyelocytes # (Man) (0) k/uL PT 17.0 H (9.0-12.0) sec INR 1.7 H (<1.2) APTT (22.0-30.0) sec ABG pH (7.35-7.45) ABG pCO2 (35-45) mmHg ABG pO2 (83-108) mmHg ABG HCO3 (21-25) mmol/L ABG Total CO2 (19-24) mmol/L ABG O2 Saturation (94-97) % ABG Hematocrit (34.0-46.0) % Hemoglobin (13.0-17.5) gm/dL Sodium (137-145) mmol/L Potassium (3.5-5.1) mmol/L Carbon Dioxide (22-30) mmol/L BUN (9-20) mg/dL Creatinine (0.66-1.25) mg/dL Glucose (74-99) mg/dL POC Glucose (mg/dL) (70-110) mg/dL Plasma Lactic Acid Adalid (0.7-2.0) mmol/L Calcium (8.4-10.2) mg/dL AST (17-59) U/L ALT (4-49) U/L Lactate Dehydrogenase 285 H (120-246) U/L Troponin I (0.000-0.034) ng/mL Total Protein (6.3-8.2) g/dL Albumin (3.5-5.0) g/dL Crossmatch 07/18/22 07/18/22 07/18/22 Range/Units 21:13 22:04 22:04 WBC 12.5 H (3.8-10.6) k/uL RBC 1.80 L (4.40-5.60) X 10*6/uL Hgb 5.7 L* D (13.0-17.0) g/dL Hct 18.7 L* (39.6-50.0) % MCV 104.0 H (80.0-97.0) fL MCHC 30.6 L (31.0-37.0) g/dL RDW 16.4 H (11.5-14.5) % Plt Count 104 L D (140-440) X 10*3/uL Plt Count Comment MPV (9.5-12.2) fL Immature Gran # (0.00-0.04) X 10*3/uL Neutrophils # (1.3-7.7) k/uL Neutrophils # (Manual) 9.70 H (1.3-7.7) k/uL Lymphocytes # (1.0-4.8) k/uL Monocytes # (0.20-1.00) X 10*3/uL Monocytes # (Manual) 1.50 H (0-1.0) k/uL Eosinophils # (0.04-0.35) X 10*3/uL Metamyelocytes # (Man) 0.13 H (0) k/uL PT (9.0-12.0) sec INR (<1.2) APTT (22.0-30.0) sec ABG pH (7.35-7.45) ABG pCO2 (35-45) mmHg ABG pO2 (83-108) mmHg ABG HCO3 (21-25) mmol/L ABG Total CO2 (19-24) mmol/L ABG O2 Saturation (94-97) % ABG Hematocrit (34.0-46.0) % Hemoglobin (13.0-17.5) gm/dL Sodium 136 L (137-145) mmol/L Potassium (3.5-5.1) mmol/L Carbon Dioxide 15 L (22-30) mmol/L BUN 94 H (9-20) mg/dL Creatinine 6.97 H (0.66-1.25) mg/dL Glucose (74-99) mg/dL POC Glucose (mg/dL) 124 H (70-110) mg/dL Plasma Lactic Acid Adalid (0.7-2.0) mmol/L Calcium 8.1 L (8.4-10.2) mg/dL AST 467 H (17-59) U/L ALT 195 H (4-49) U/L Lactate Dehydrogenase (120-246) U/L Troponin I (0.000-0.034) ng/mL Total Protein 4.8 L (6.3-8.2) g/dL Albumin 2.1 L (3.5-5.0) g/dL Crossmatch 07/18/22 07/18/22 07/18/22 Range/Units 22:04 22:04 22:04 WBC (3.8-10.6) k/uL RBC (4.40-5.60) X 10*6/uL Hgb (13.0-17.0) g/dL Hct (39.6-50.0) % MCV (80.0-97.0) fL MCHC (31.0-37.0) g/dL RDW (11.5-14.5) % Plt Count (140-440) X 10*3/uL Plt Count Comment MPV (9.5-12.2) fL Immature Gran # (0.00-0.04) X 10*3/uL Neutrophils # (1.3-7.7) k/uL Neutrophils # (Manual) (1.3-7.7) k/uL Lymphocytes # (1.0-4.8) k/uL Monocytes # (0.20-1.00) X 10*3/uL Monocytes # (Manual) (0-1.0) k/uL Eosinophils # (0.04-0.35) X 10*3/uL Metamyelocytes # (Man) (0) k/uL PT 22.2 H (9.0-12.0) sec INR 2.2 H (<1.2) APTT 44.9 H (22.0-30.0) sec ABG pH (7.35-7.45) ABG pCO2 (35-45) mmHg ABG pO2 (83-108) mmHg ABG HCO3 (21-25) mmol/L ABG Total CO2 (19-24) mmol/L ABG O2 Saturation (94-97) % ABG Hematocrit (34.0-46.0) % Hemoglobin (13.0-17.5) gm/dL Sodium (137-145) mmol/L Potassium (3.5-5.1) mmol/L Carbon Dioxide (22-30) mmol/L BUN (9-20) mg/dL Creatinine (0.66-1.25) mg/dL Glucose (74-99) mg/dL POC Glucose (mg/dL) (70-110) mg/dL Plasma Lactic Acid Adalid 10.2 H* (0.7-2.0) mmol/L Calcium (8.4-10.2) mg/dL AST (17-59) U/L ALT (4-49) U/L Lactate Dehydrogenase (120-246) U/L Troponin I 0.099 H* (0.000-0.034) ng/mL Total Protein (6.3-8.2) g/dL Albumin (3.5-5.0) g/dL Crossmatch 07/18/22 07/18/22 07/19/22 Range/Units 22:25 23:12 00:00 WBC 12.3 H (3.8-10.6) k/uL RBC 1.44 L (4.40-5.60) X 10*6/uL Hgb 4.6 L* (13.0-17.0) g/dL Hct 15.0 L* (39.6-50.0) % MCV 103.9 H (80.0-97.0) fL MCHC 30.6 L (31.0-37.0) g/dL RDW 17.0 H (11.5-14.5) % Plt Count 80 L (140-440) X 10*3/uL Plt Count Comment MPV (9.5-12.2) fL Immature Gran # (0.00-0.04) X 10*3/uL Neutrophils # 10.2 H (1.3-7.7) k/uL Neutrophils # (Manual) (1.3-7.7) k/uL Lymphocytes # 0.8 L (1.0-4.8) k/uL Monocytes # (0.20-1.00) X 10*3/uL Monocytes # (Manual) (0-1.0) k/uL Eosinophils # (0.04-0.35) X 10*3/uL Metamyelocytes # (Man) (0) k/uL PT (9.0-12.0) sec INR (<1.2) APTT (22.0-30.0) sec ABG pH 7.19 L* (7.35-7.45) ABG pCO2 (35-45) mmHg ABG pO2 >400 H (83-108) mmHg ABG HCO3 14 L (21-25) mmol/L ABG Total CO2 16 L (19-24) mmol/L ABG O2 Saturation 100.0 H (94-97) % ABG Hematocrit 16 L* (34.0-46.0) % Hemoglobin 5.3 L* (13.0-17.5) gm/dL Sodium (137-145) mmol/L Potassium (3.5-5.1) mmol/L Carbon Dioxide (22-30) mmol/L BUN (9-20) mg/dL Creatinine (0.66-1.25) mg/dL Glucose (74-99) mg/dL POC Glucose (mg/dL) (70-110) mg/dL Plasma Lactic Acid Adalid (0.7-2.0) mmol/L Calcium (8.4-10.2) mg/dL AST (17-59) U/L ALT (4-49) U/L Lactate Dehydrogenase (120-246) U/L Troponin I (0.000-0.034) ng/mL Total Protein (6.3-8.2) g/dL Albumin (3.5-5.0) g/dL Crossmatch See Detail 07/19/22 07/19/22 07/19/22 Range/Units 03:19 03:20 03:20 WBC 18.3 H (3.8-10.6) k/uL RBC 2.24 L (4.40-5.60) X 10*6/uL Hgb 6.6 L* D (13.0-17.0) g/dL Hct 22.5 L (39.6-50.0) % MCV 100.7 H (80.0-97.0) fL MCHC 29.4 L (31.0-37.0) g/dL RDW 18.3 H (11.5-14.5) % Plt Count 60 L (140-440) X 10*3/uL Plt Count Comment MPV (9.5-12.2) fL Immature Gran # (0.00-0.04) X 10*3/uL Neutrophils # 15.2 H (1.3-7.7) k/uL Neutrophils # (Manual) (1.3-7.7) k/uL Lymphocytes # (1.0-4.8) k/uL Monocytes # 1.7 H (0.20-1.00) X 10*3/uL Monocytes # (Manual) (0-1.0) k/uL Eosinophils # (0.04-0.35) X 10*3/uL Metamyelocytes # (Man) (0) k/uL PT (9.0-12.0) sec INR (<1.2) APTT (22.0-30.0) sec ABG pH (7.35-7.45) ABG pCO2 (35-45) mmHg ABG pO2 (83-108) mmHg ABG HCO3 (21-25) mmol/L ABG Total CO2 (19-24) mmol/L ABG O2 Saturation (94-97) % ABG Hematocrit (34.0-46.0) % Hemoglobin (13.0-17.5) gm/dL Sodium (137-145) mmol/L Potassium 5.3 H (3.5-5.1) mmol/L Carbon Dioxide 13 L (22-30) mmol/L BUN 82 H (9-20) mg/dL Creatinine 6.66 H (0.66-1.25) mg/dL Glucose 28 L* (74-99) mg/dL POC Glucose (mg/dL) 33 L (70-110) mg/dL Plasma Lactic Acid Adalid (0.7-2.0) mmol/L Calcium 6.7 L (8.4-10.2) mg/dL AST 1637 H (17-59) U/L ALT 543 H (4-49) U/L Lactate Dehydrogenase (120-246) U/L Troponin I (0.000-0.034) ng/mL Total Protein 3.9 L (6.3-8.2) g/dL Albumin 1.7 L (3.5-5.0) g/dL Crossmatch 07/19/22 07/19/22 07/19/22 Range/Units 03:20 03:20 05:56 WBC (3.8-10.6) k/uL RBC (4.40-5.60) X 10*6/uL Hgb (13.0-17.0) g/dL Hct (39.6-50.0) % MCV (80.0-97.0) fL MCHC (31.0-37.0) g/dL RDW (11.5-14.5) % Plt Count (140-440) X 10*3/uL Plt Count Comment MPV (9.5-12.2) fL Immature Gran # (0.00-0.04) X 10*3/uL Neutrophils # (1.3-7.7) k/uL Neutrophils # (Manual) (1.3-7.7) k/uL Lymphocytes # (1.0-4.8) k/uL Monocytes # (0.20-1.00) X 10*3/uL Monocytes # (Manual) (0-1.0) k/uL Eosinophils # (0.04-0.35) X 10*3/uL Metamyelocytes # (Man) (0) k/uL PT (9.0-12.0) sec INR (<1.2) APTT (22.0-30.0) sec ABG pH (7.35-7.45) ABG pCO2 (35-45) mmHg ABG pO2 (83-108) mmHg ABG HCO3 (21-25) mmol/L ABG Total CO2 (19-24) mmol/L ABG O2 Saturation (94-97) % ABG Hematocrit (34.0-46.0) % Hemoglobin (13.0-17.5) gm/dL Sodium (137-145) mmol/L Potassium (3.5-5.1) mmol/L Carbon Dioxide (22-30) mmol/L BUN (9-20) mg/dL Creatinine (0.66-1.25) mg/dL Glucose (74-99) mg/dL POC Glucose (mg/dL) 35 L 69 L (70-110) mg/dL Plasma Lactic Acid Adalid 15.0 H* (0.7-2.0) mmol/L Calcium (8.4-10.2) mg/dL AST (17-59) U/L ALT (4-49) U/L Lactate Dehydrogenase (120-246) U/L Troponin I (0.000-0.034) ng/mL Total Protein (6.3-8.2) g/dL Albumin (3.5-5.0) g/dL Crossmatch 07/19/22 07/19/22 07/19/22 Range/Units 06:59 07:01 08:08 WBC (3.8-10.6) k/uL RBC (4.40-5.60) X 10*6/uL Hgb (13.0-17.0) g/dL Hct (39.6-50.0) % MCV (80.0-97.0) fL MCHC (31.0-37.0) g/dL RDW (11.5-14.5) % Plt Count (140-440) X 10*3/uL Plt Count Comment MPV (9.5-12.2) fL Immature Gran # (0.00-0.04) X 10*3/uL Neutrophils # (1.3-7.7) k/uL Neutrophils # (Manual) (1.3-7.7) k/uL Lymphocytes # (1.0-4.8) k/uL Monocytes # (0.20-1.00) X 10*3/uL Monocytes # (Manual) (0-1.0) k/uL Eosinophils # (0.04-0.35) X 10*3/uL Metamyelocytes # (Man) (0) k/uL PT (9.0-12.0) sec INR (<1.2) APTT (22.0-30.0) sec ABG pH 6.89 L* (7.35-7.45) ABG pCO2 27 L (35-45) mmHg ABG pO2 233 H (83-108) mmHg ABG HCO3 5 L* (21-25) mmol/L ABG Total CO2 6 L (19-24) mmol/L ABG O2 Saturation 99.7 H (94-97) % ABG Hematocrit 12 L* (34.0-46.0) % Hemoglobin 3.8 L* (13.0-17.5) gm/dL Sodium (137-145) mmol/L Potassium (3.5-5.1) mmol/L Carbon Dioxide (22-30) mmol/L BUN (9-20) mg/dL Creatinine (0.66-1.25) mg/dL Glucose (74-99) mg/dL POC Glucose (mg/dL) 145 H (70-110) mg/dL Plasma Lactic Acid Adalid 17.7 H* (0.7-2.0) mmol/L Calcium (8.4-10.2) mg/dL AST (17-59) U/L ALT (4-49) U/L Lactate Dehydrogenase (120-246) U/L Troponin I (0.000-0.034) ng/mL Total Protein (6.3-8.2) g/dL Albumin (3.5-5.0) g/dL Crossmatch Assessment and Plan Plan: Assessment: 1. Acute kidney injury secondary to septic ATN, hypotension/cardiac arrest and acute blood loss anemia. Nonoliguric. Baseline creatinine near 1. Started on hemodialysis 07/05/2022 - last treatment 07/11/2022. Renal function gradually worsening with creatinine 6.66 today. Oliguric. 2. Mild hyperkalemia secondary to acute kidney injury and acidosis. 3. Shock maintained on vasopressor support. Cortisol level 14 dated 07/17/2022. 4. Group B strep bacteremia and ?pneumonia on antibiotics. ID following. 5. Volume overload. 6. Liver cirrhosis. 7. Ascites status post paracentesis on 07/01/2022 to 3.6 L drained. Ultrasound on 07/17/2022 showed ascites - 3.6 L drained 07/18/2022. 8. A. fib with RVR s/p Cardizem drip. Cardiology following. 9. Hyperphosphatemia secondary to acute kidney injury. Last phosphorus 6.4 dated 07/17/2022. 10. Metabolic acidosis secondary to acute kidney injury and lactic acidosis. 11. Acute blood loss anemia status post blood transfusions and FFP. Receiving another unit of blood today. Status post IV DDAVP yesterday. Seen by ENT for nosebleed. 12. Status post cardiac arrest 07/18/2022. Likely precipitated by the acute blood loss anemia. Plan: Patient received 3 A of sodium bicarb IV push today. Will give 2 more amps. 10 units IV insulin with an amp of D50. Change normal saline to isotonic sodium bicarbonate drip to be run at 100 mL an hour. Repeat BMP this evening. Monitor hemoglobin and transfuse as needed. Repeat IV DDAVP today. Permacath placed 07/18/2022. Hold off on hemodialysis today as the patient is hemodynamically unstable. Continue to assess on daily basis. Prognosis guarded.
[2022-07-19] MEDS: IPRATROPIUM-ALBUTEROL 3 ML NEB INHALATION SCH ×3 (09:37→15:35)
[2022-07-19 10:32] LABS: Glucose,Whole Blood 116 mg/dL (70-110)
[2022-07-19] MEDS: ATORVASTATIN 40 MG TAB PO SCH (10:47)
[2022-07-19 10:52] LABS: Anisocytosis Slight; Basophils # (A) 0.1 k/uL (0-0.2); Basophils % (A) 1 %; Eosinophils % (A) 0 %; Hypochromasia Marked; Lymphocytes # (A) 1.1 k/uL (1.0-4.8); Lymphocytes % (A) 10 %; MCH 30.5 pg (25.0-35.0); MCHC 30.2 g/dL (31.0-37.0); Macrocytosis Moderate; Mean Platelet Volume 13.7; Monocytes # (A) 0.7 k/uL (0-1.0); Monocytes % (A) 7 %; Neutrophils # (A) 8.7 k/uL (1.3-7.7); Neutrophils % (A) 79 %; Poikilocytosis Slight; RBC 1.41 m/uL (4.30-5.90); RDW 18.7 % (11.5-15.5)
[2022-07-19] MEDS: TORSEMIDE 20 MG TAB PO SCH (10:53)
[2022-07-19 11:10] LABS: Glucose,Whole Blood 97 mg/dL (70-110)
[2022-07-19 11:10] LABS: HGB 4.3 gm/dL (13.0-17.5)
[2022-07-19 11:11] LABS: HCT 14.3 % (39.0-53.0); Platelet Count 43 k/uL (150-450)
[2022-07-19 11:29] VITALS: BMI 34.5
[2022-07-19 12:21] LABS: Large Platelets Present
--- NOTE | 2022-07-19 12:28 | P.PN ---
Subjective Progress Note Date: 07/19/22 Principal diagnosis: Thrombocytopenia and anemia In f/u pt seen in ICU, [facility] ventilated, active bleeding. Objective - Vital Signs Vital signs: Vital Signs Temp 97.8 F 07/19/22 10:00 Pulse 126 H 07/19/22 11:06 Resp 20 07/19/22 10:00 BP 91/61 07/19/22 10:00 Pulse Ox 98 07/19/22 09:30 FiO2 40 07/19/22 11:05 Intake & Output 07/18/22 07/19/22 07/19/22 18:59 06:59 18:59 Intake Total 140 5210.530 528 Output Total 626 0 0 Balance -486 5210.530 528 Weight 109.3 kg Intake: IV 140 0.9 @ 10 40 Intake, IV Titration 3937.530 Amount Norepinephrine 32 mg In 237.530 Sodium Chloride 0.9% 218 ml @ 0.05 MCG/KG/MIN 2. 508 mls/hr IV .Q24H [facility] Rx#:[id number] Sodium Chloride 0.9% 1, 700 000 ml @ 100 mls/hr IV . Q10H [facility] Rx#:[id number] Sodium Chloride 0.9% 1, 1000 000 ml @ 999 mls/hr IV . Q1H1M [facility] Rx#:[id number] Sodium Chloride 0.9% 2, 2000 000 ml @ 999 mls/hr IV . Q2H1M [facility] Rx#:[id number] Blood Product 773 528 Ffp 24 Pher Acda Unit 216 [id number] Ffp 24 Pher Acda Cnt2 0 218 Unit [id number] Rc As-1 Unit 310 [id number] Rc Pheresis 2 As3 Unit 280 [id number] Rc Pheresis 2 As3 Unit 277 [id number] Hemodialysis 500 Output: Urine 625 0 0 Stool 1 Other: Voiding Method Indwelling Catheter Indwelling Catheter ABP, PAP, CO, CI - Last Documented Arterial Blood Pressure 40/37 - Exam Actively bleeding from mouth, line sites, copious amounts. Mult hematomas on arms from needle sticks, no urine in [place]. Pupils are 4mm, sluggish. - Labs CBC & Chem 7: 07/19/22 10:26 07/19/22 03:20 Labs: Abnormal Lab Results - Last 24 Hours (Table) 07/18/22 07/18/22 07/18/22 Range/Units 05:43 06:20 21:13 WBC (3.8-10.6) k/uL RBC 2.97 L (4.40-5.60) X 10*6/uL Hgb 9.4 L (13.0-17.0) g/dL Hct 29.0 L (39.6-50.0) % MCV 97.6 H (80.0-97.0) fL MCHC (31.0-37.0) g/dL RDW 15.7 H (11.5-14.5) % Plt Count 85 L (140-440) X 10*3/uL Plt Count Comment DECREASED A MPV 13.0 H (9.5-12.2) fL Immature Gran # 0.05 H (0.00-0.04) X 10*3/uL Neutrophils # (1.3-7.7) k/uL Neutrophils # (Manual) (1.3-7.7) k/uL Lymphocytes # (1.0-4.8) k/uL Monocytes # 1.26 H (0.20-1.00) X 10*3/uL Monocytes # (Manual) (0-1.0) k/uL Eosinophils # 0.44 H (0.04-0.35) X 10*3/uL Metamyelocytes # (Man) (0) k/uL PT (9.0-12.0) sec INR (<1.2) APTT (22.0-30.0) sec Fibrinogen (200-500) mg/dL ABG pH (7.35-7.45) ABG pCO2 (35-45) mmHg ABG pO2 (83-108) mmHg ABG HCO3 (21-25) mmol/L ABG Total CO2 (19-24) mmol/L ABG O2 Saturation (94-97) % ABG Hematocrit (34.0-46.0) % Hemoglobin (13.0-17.5) gm/dL Sodium (137-145) mmol/L Potassium (3.5-5.1) mmol/L Carbon Dioxide (22-30) mmol/L BUN (9-20) mg/dL Creatinine (0.66-1.25) mg/dL Glucose (74-99) mg/dL POC Glucose (mg/dL) 124 H (70-110) mg/dL Plasma Lactic Acid Adalid (0.7-2.0) mmol/L Calcium (8.4-10.2) mg/dL AST (17-59) U/L ALT (4-49) U/L Lactate Dehydrogenase 285 H (120-246) U/L Troponin I (0.000-0.034) ng/mL Total Protein (6.3-8.2) g/dL Albumin (3.5-5.0) g/dL Crossmatch 07/18/22 07/18/22 07/18/22 Range/Units 22:04 22:04 22:04 WBC 12.5 H (3.8-10.6) k/uL RBC 1.80 L (4.40-5.60) X 10*6/uL Hgb 5.7 L* D (13.0-17.0) g/dL Hct 18.7 L* (39.6-50.0) % MCV 104.0 H (80.0-97.0) fL MCHC 30.6 L (31.0-37.0) g/dL RDW 16.4 H (11.5-14.5) % Plt Count 104 L D (140-440) X 10*3/uL Plt Count Comment MPV (9.5-12.2) fL Immature Gran # (0.00-0.04) X 10*3/uL Neutrophils # (1.3-7.7) k/uL Neutrophils # (Manual) 9.70 H (1.3-7.7) k/uL Lymphocytes # (1.0-4.8) k/uL Monocytes # (0.20-1.00) X 10*3/uL Monocytes # (Manual) 1.50 H (0-1.0) k/uL Eosinophils # (0.04-0.35) X 10*3/uL Metamyelocytes # (Man) 0.13 H (0) k/uL PT (9.0-12.0) sec INR (<1.2) APTT (22.0-30.0) sec Fibrinogen (200-500) mg/dL ABG pH (7.35-7.45) ABG pCO2 (35-45) mmHg ABG pO2 (83-108) mmHg ABG HCO3 (21-25) mmol/L ABG Total CO2 (19-24) mmol/L ABG O2 Saturation (94-97) % ABG Hematocrit (34.0-46.0) % Hemoglobin (13.0-17.5) gm/dL Sodium 136 L (137-145) mmol/L Potassium (3.5-5.1) mmol/L Carbon Dioxide 15 L (22-30) mmol/L BUN 94 H (9-20) mg/dL Creatinine 6.97 H (0.66-1.25) mg/dL Glucose (74-99) mg/dL POC Glucose (mg/dL) (70-110) mg/dL Plasma Lactic Acid Adalid 10.2 H* (0.7-2.0) mmol/L Calcium 8.1 L (8.4-10.2) mg/dL AST 467 H (17-59) U/L ALT 195 H (4-49) U/L Lactate Dehydrogenase (120-246) U/L Troponin I (0.000-0.034) ng/mL Total Protein 4.8 L (6.3-8.2) g/dL Albumin 2.1 L (3.5-5.0) g/dL Crossmatch 07/18/22 07/18/22 07/18/22 Range/Units 22:04 22:04 22:25 WBC (3.8-10.6) k/uL RBC (4.40-5.60) X 10*6/uL Hgb (13.0-17.0) g/dL Hct (39.6-50.0) % MCV (80.0-97.0) fL MCHC (31.0-37.0) g/dL RDW (11.5-14.5) % Plt Count (140-440) X 10*3/uL Plt Count Comment MPV (9.5-12.2) fL Immature Gran # (0.00-0.04) X 10*3/uL Neutrophils # (1.3-7.7) k/uL Neutrophils # (Manual) (1.3-7.7) k/uL Lymphocytes # (1.0-4.8) k/uL Monocytes # (0.20-1.00) X 10*3/uL Monocytes # (Manual) (0-1.0) k/uL Eosinophils # (0.04-0.35) X 10*3/uL Metamyelocytes # (Man) (0) k/uL PT 22.2 H (9.0-12.0) sec INR 2.2 H (<1.2) APTT 44.9 H (22.0-30.0) sec Fibrinogen (200-500) mg/dL ABG pH 7.19 L* (7.35-7.45) ABG pCO2 (35-45) mmHg ABG pO2 >400 H (83-108) mmHg ABG HCO3 14 L (21-25) mmol/L ABG Total CO2 16 L (19-24) mmol/L ABG O2 Saturation 100.0 H (94-97) % ABG Hematocrit 16 L* (34.0-46.0) % Hemoglobin 5.3 L* (13.0-17.5) gm/dL Sodium (137-145) mmol/L Potassium (3.5-5.1) mmol/L Carbon Dioxide (22-30) mmol/L BUN (9-20) mg/dL Creatinine (0.66-1.25) mg/dL Glucose (74-99) mg/dL POC Glucose (mg/dL) (70-110) mg/dL Plasma Lactic Acid Adalid (0.7-2.0) mmol/L Calcium (8.4-10.2) mg/dL AST (17-59) U/L ALT (4-49) U/L Lactate Dehydrogenase (120-246) U/L Troponin I 0.099 H* (0.000-0.034) ng/mL Total Protein (6.3-8.2) g/dL Albumin (3.5-5.0) g/dL Crossmatch 07/18/22 07/19/22 07/19/22 Range/Units 23:12 00:00 03:19 WBC 12.3 H (3.8-10.6) k/uL RBC 1.44 L (4.40-5.60) X 10*6/uL Hgb 4.6 L* (13.0-17.0) g/dL Hct 15.0 L* (39.6-50.0) % MCV 103.9 H (80.0-97.0) fL MCHC 30.6 L (31.0-37.0) g/dL RDW 17.0 H (11.5-14.5) % Plt Count 80 L (140-440) X 10*3/uL Plt Count Comment MPV (9.5-12.2) fL Immature Gran # (0.00-0.04) X 10*3/uL Neutrophils # 10.2 H (1.3-7.7) k/uL Neutrophils # (Manual) (1.3-7.7) k/uL Lymphocytes # 0.8 L (1.0-4.8) k/uL Monocytes # (0.20-1.00) X 10*3/uL Monocytes # (Manual) (0-1.0) k/uL Eosinophils # (0.04-0.35) X 10*3/uL Metamyelocytes # (Man) (0) k/uL PT (9.0-12.0) sec INR (<1.2) APTT (22.0-30.0) sec Fibrinogen (200-500) mg/dL ABG pH (7.35-7.45) ABG pCO2 (35-45) mmHg ABG pO2 (83-108) mmHg ABG HCO3 (21-25) mmol/L ABG Total CO2 (19-24) mmol/L ABG O2 Saturation (94-97) % ABG Hematocrit (34.0-46.0) % Hemoglobin (13.0-17.5) gm/dL Sodium (137-145) mmol/L Potassium (3.5-5.1) mmol/L Carbon Dioxide (22-30) mmol/L BUN (9-20) mg/dL Creatinine (0.66-1.25) mg/dL Glucose (74-99) mg/dL POC Glucose (mg/dL) 33 L (70-110) mg/dL Plasma Lactic Acid Adalid (0.7-2.0) mmol/L Calcium (8.4-10.2) mg/dL AST (17-59) U/L ALT (4-49) U/L Lactate Dehydrogenase (120-246) U/L Troponin I (0.000-0.034) ng/mL Total Protein (6.3-8.2) g/dL Albumin (3.5-5.0) g/dL Crossmatch See Detail 07/19/22 07/19/22 07/19/22 Range/Units 03:20 03:20 03:20 WBC 18.3 H (3.8-10.6) k/uL RBC 2.24 L (4.40-5.60) X 10*6/uL Hgb 6.6 L* D (13.0-17.0) g/dL Hct 22.5 L (39.6-50.0) % MCV 100.7 H (80.0-97.0) fL MCHC 29.4 L (31.0-37.0) g/dL RDW 18.3 H (11.5-14.5) % Plt Count 60 L (140-440) X 10*3/uL Plt Count Comment MPV (9.5-12.2) fL Immature Gran # (0.00-0.04) X 10*3/uL Neutrophils # 15.2 H (1.3-7.7) k/uL Neutrophils # (Manual) (1.3-7.7) k/uL Lymphocytes # (1.0-4.8) k/uL Monocytes # 1.7 H (0.20-1.00) X 10*3/uL Monocytes # (Manual) (0-1.0) k/uL Eosinophils # (0.04-0.35) X 10*3/uL Metamyelocytes # (Man) (0) k/uL PT (9.0-12.0) sec INR (<1.2) APTT (22.0-30.0) sec Fibrinogen (200-500) mg/dL ABG pH (7.35-7.45) ABG pCO2 (35-45) mmHg ABG pO2 (83-108) mmHg ABG HCO3 (21-25) mmol/L ABG Total CO2 (19-24) mmol/L ABG O2 Saturation (94-97) % ABG Hematocrit (34.0-46.0) % Hemoglobin (13.0-17.5) gm/dL Sodium (137-145) mmol/L Potassium 5.3 H (3.5-5.1) mmol/L Carbon Dioxide 13 L (22-30) mmol/L BUN 82 H (9-20) mg/dL Creatinine 6.66 H (0.66-1.25) mg/dL Glucose 28 L* (74-99) mg/dL POC Glucose (mg/dL) (70-110) mg/dL Plasma Lactic Acid Adalid 15.0 H* (0.7-2.0) mmol/L Calcium 6.7 L (8.4-10.2) mg/dL AST 1637 H (17-59) U/L ALT 543 H (4-49) U/L Lactate Dehydrogenase (120-246) U/L Troponin I (0.000-0.034) ng/mL Total Protein 3.9 L (6.3-8.2) g/dL Albumin 1.7 L (3.5-5.0) g/dL Crossmatch 07/19/22 07/19/22 07/19/22 Range/Units 03:20 05:56 06:59 WBC (3.8-10.6) k/uL RBC (4.40-5.60) X 10*6/uL Hgb (13.0-17.0) g/dL Hct (39.6-50.0) % MCV (80.0-97.0) fL MCHC (31.0-37.0) g/dL RDW (11.5-14.5) % Plt Count (140-440) X 10*3/uL Plt Count Comment MPV (9.5-12.2) fL Immature Gran # (0.00-0.04) X 10*3/uL Neutrophils # (1.3-7.7) k/uL Neutrophils # (Manual) (1.3-7.7) k/uL Lymphocytes # (1.0-4.8) k/uL Monocytes # (0.20-1.00) X 10*3/uL Monocytes # (Manual) (0-1.0) k/uL Eosinophils # (0.04-0.35) X 10*3/uL Metamyelocytes # (Man) (0) k/uL PT (9.0-12.0) sec INR (<1.2) APTT (22.0-30.0) sec Fibrinogen (200-500) mg/dL ABG pH (7.35-7.45) ABG pCO2 (35-45) mmHg ABG pO2 (83-108) mmHg ABG HCO3 (21-25) mmol/L ABG Total CO2 (19-24) mmol/L ABG O2 Saturation (94-97) % ABG Hematocrit (34.0-46.0) % Hemoglobin (13.0-17.5) gm/dL Sodium (137-145) mmol/L Potassium (3.5-5.1) mmol/L Carbon Dioxide (22-30) mmol/L BUN (9-20) mg/dL Creatinine (0.66-1.25) mg/dL Glucose (74-99) mg/dL POC Glucose (mg/dL) 35 L 69 L 145 H (70-110) mg/dL Plasma Lactic Acid Adalid (0.7-2.0) mmol/L Calcium (8.4-10.2) mg/dL AST (17-59) U/L ALT (4-49) U/L Lactate Dehydrogenase (120-246) U/L Troponin I (0.000-0.034) ng/mL Total Protein (6.3-8.2) g/dL Albumin (3.5-5.0) g/dL Crossmatch 07/19/22 07/19/22 07/19/22 Range/Units 07:01 08:08 10:26 WBC (3.8-10.6) k/uL RBC (4.40-5.60) X 10*6/uL Hgb (13.0-17.0) g/dL Hct (39.6-50.0) % MCV (80.0-97.0) fL MCHC (31.0-37.0) g/dL RDW (11.5-14.5) % Plt Count (140-440) X 10*3/uL Plt Count Comment MPV (9.5-12.2) fL Immature Gran # (0.00-0.04) X 10*3/uL Neutrophils # (1.3-7.7) k/uL Neutrophils # (Manual) (1.3-7.7) k/uL Lymphocytes # (1.0-4.8) k/uL Monocytes # (0.20-1.00) X 10*3/uL Monocytes # (Manual) (0-1.0) k/uL Eosinophils # (0.04-0.35) X 10*3/uL Metamyelocytes # (Man) (0) k/uL PT (9.0-12.0) sec INR (<1.2) APTT (22.0-30.0) sec Fibrinogen <80 L* (200-500) mg/dL ABG pH 6.89 L* (7.35-7.45) ABG pCO2 27 L (35-45) mmHg ABG pO2 233 H (83-108) mmHg ABG HCO3 5 L* (21-25) mmol/L ABG Total CO2 6 L (19-24) mmol/L ABG O2 Saturation 99.7 H (94-97) % ABG Hematocrit 12 L* (34.0-46.0) % Hemoglobin 3.8 L* (13.0-17.5) gm/dL Sodium (137-145) mmol/L Potassium (3.5-5.1) mmol/L Carbon Dioxide (22-30) mmol/L BUN (9-20) mg/dL Creatinine (0.66-1.25) mg/dL Glucose (74-99) mg/dL POC Glucose (mg/dL) (70-110) mg/dL Plasma Lactic Acid Adalid 17.7 H* (0.7-2.0) mmol/L Calcium (8.4-10.2) mg/dL AST (17-59) U/L ALT (4-49) U/L Lactate Dehydrogenase (120-246) U/L Troponin I (0.000-0.034) ng/mL Total Protein (6.3-8.2) g/dL Albumin (3.5-5.0) g/dL Crossmatch 07/19/22 07/19/22 Range/Units 10:26 10:30 WBC (3.8-10.6) k/uL RBC (4.40-5.60) X 10*6/uL Hgb (13.0-17.0) g/dL Hct (39.6-50.0) % MCV (80.0-97.0) fL MCHC (31.0-37.0) g/dL RDW (11.5-14.5) % Plt Count (140-440) X 10*3/uL Plt Count Comment MPV (9.5-12.2) fL Immature Gran # (0.00-0.04) X 10*3/uL Neutrophils # (1.3-7.7) k/uL Neutrophils # (Manual) (1.3-7.7) k/uL Lymphocytes # (1.0-4.8) k/uL Monocytes # (0.20-1.00) X 10*3/uL Monocytes # (Manual) (0-1.0) k/uL Eosinophils # (0.04-0.35) X 10*3/uL Metamyelocytes # (Man) (0) k/uL PT (9.0-12.0) sec INR (<1.2) APTT (22.0-30.0) sec Fibrinogen (200-500) mg/dL ABG pH (7.35-7.45) ABG pCO2 (35-45) mmHg ABG pO2 (83-108) mmHg ABG HCO3 (21-25) mmol/L ABG Total CO2 (19-24) mmol/L ABG O2 Saturation (94-97) % ABG Hematocrit (34.0-46.0) % Hemoglobin (13.0-17.5) gm/dL Sodium (137-145) mmol/L Potassium (3.5-5.1) mmol/L Carbon Dioxide (22-30) mmol/L BUN (9-20) mg/dL Creatinine (0.66-1.25) mg/dL Glucose (74-99) mg/dL POC Glucose (mg/dL) 116 H (70-110) mg/dL Plasma Lactic Acid Adalid 21.6 H* (0.7-2.0) mmol/L Calcium (8.4-10.2) mg/dL AST (17-59) U/L ALT (4-49) U/L Lactate Dehydrogenase (120-246) U/L Troponin I (0.000-0.034) ng/mL Total Protein (6.3-8.2) g/dL Albumin (3.5-5.0) g/dL Crossmatch Assessment and Plan (1) DIC (disseminated intravascular coagulation) Current Visit: Yes Status: Acute Priority: High Code(s): D65 - DISSEMINATED INTRAVASCULAR COAGULATION SNOMED Code(s): 43492337 (2) Thrombocytopenia Current Visit: Yes Status: Acute Priority: High Code(s): D69.6 - THROMBOCYTOPENIA, UNSPECIFIED SNOMED Code(s): 700701216 (3) Anemia Current Visit: Yes Status: Acute Priority: High Code(s): D64.9 - ANEMIA, UNSPECIFIED SNOMED Code(s): 225194631 Plan: When seen pt actively bleeding, copious amounts mouth and line sites Vit K ordered for INR 2.2. Fibrinogen ordered stat, returned <80. Pooled cryoprecipitate ordered. FFP was already ordered. Repeat coags and fibrinogen 2 hours Pt is receiving blood for active bleeding
[2022-07-19 13:05] VITALS: TEMP 97.5
[2022-07-19] MEDS: NICOTINE 7MG/24HR PATCH TRANSDERM SCH (13:07)
--- NOTE | 2022-07-19 13:21 | CA ---
Transthoracic Echo Report Name: Ag Souza Age: 67 Gender: M : 1955 Exam Date: 07/19/2022 08:42 Exam Location: [place] [facility] Ht (in): 71 Wt (lb): 240 Ordering Physician: Silva Milton Attending/Referring Phys: Queen Producer Edith Guerrero RDCS Procedure CPT: Indications: Cardiac Arrest Cardiac Hx: Cardiac arrest Technical Quality: Technically difficult study Contrast 1: Lumason Total Dose (mL): 1 Contrast 2: Total Dose (mL): MEASUREMENTS (Male / Female) Normal Values 2D ECHO LV Diastolic Diameter PLAX 3.9 cm 4.2 - 5.9 / 3.9 - 5.3 cm LV Systolic Diameter PLAX 1.5 cm IVS Diastolic Thickness 1.3 cm 0.6 - 1.0 / 0.6 - 0.9 cm LVPW Diastolic Thickness 1.6 cm 0.6 - 1.0 / 0.6 - 0.9 cm LV Relative Wall Thickness 0.8 FINDINGS Left Ventricle Mildly increased septal wall thickness. Heart is hyperdynamic. Left ventricular ejection fraction is estimated at 65-70 %. Right Ventricle Right Atrium Left Atrium Mitral Valve Aortic Valve Tricuspid Valve Pulmonic Valve Pericardium No pericardial effusion. Aorta CONCLUSIONS Technically difficult study Left ventricular EF 65-70%. No pericardial effusion. Previewed by: Dr. Morgan Do DO (Electronically Signed) Final Date: 19 July 2022 13:20
[2022-07-19 13:27] LABS: Glucose,Whole Blood 93 mg/dL (70-110)
[2022-07-19 14:24] LABS: Anisocytosis Slight; HCT 20.1 % (39.0-53.0); Hypochromasia Marked; MCH 30.5 pg (25.0-35.0); MCHC 29.4 g/dL (31.0-37.0); MCV 103.7 fL (80.0-100.0); Macrocytosis Moderate; Mean Platelet Volume 11.1; RBC 1.94 m/uL (4.30-5.90); RDW 16.9 % (11.5-15.5)
[2022-07-19 14:50] LABS: Platelet Count 32 k/uL (150-450)
[2022-07-19 14:51] LABS: HGB 5.9 gm/dL (13.0-17.5)
[2022-07-19] MEDS: SODIUM FERRIC GLUCONAT-SUCROSE 125 MG in SODIUM CHLORIDE 0.9% 100 ML IVPB SCH (14:53)
[2022-07-19 15:12] LABS: INR 2.8 (<1.2); Partial Thromboplastin Time 94.4 sec (22.0-30.0); Prothrombin Time 27.8 sec (9.0-12.0)
[2022-07-19 15:23] LABS: Fibrinogen <80 mg/dL (200-500)
[2022-07-19 15:28] LABS: Band Neutrophils % 2 %; Lymphocytes # (M) 1.36 k/uL (1.0-4.8); Metamyelocytes # (M) 0.11 k/uL (0); Metamyelocytes % 1 %; Monocytes # (M) 0.45 k/uL (0-1.0); Myelocytes # (M) 0.11 k/uL (0); Myelocytes % 1 %; Neutrophils % (M) 82 %; Nucleated Red Blood Cells 1 /100 WBC (0-0); Total Cells Counted 200; WBC 11.3 k/uL (3.8-10.6)
[2022-07-19 15:30] LABS: Large Platelets Present
[2022-07-19 15:34] VITALS: BP 98/65; RESP 0
[2022-07-19] MEDS ORDERED: MORPHINE SULFATE 2 MG/ML SYRINGE IV PRN (15:54)
[2022-07-19 17:39] VITALS: PULSE 115
[2022-07-20] MEDS ORDERED: VANCOMYCIN 1,750 MG in SODIUM CHLORIDE 0.9% 500 ML 500 ML IVPB ONE (09:00)
--- NOTE | 2022-07-21 10:02 | P.DS ---
Providers Date of admission: 06/21/22 13:29 Expected date of discharge: 07/21/22 Attending physician: Carlos Pop Consults: 06/22/22 09:35 Consult Physician Routine Consulting Provider: Johny Barajas Consult Reason/Comments: leukocytosis Do you want consulting provider notified?: Yes 06/22/22 09:41 Consult Physician Routine Consulting Provider: Ruth Clark Consult Reason/Comments: acute kidney injury Do you want consulting provider notified?: Yes 06/22/22 13:51 Consult Physician Routine Consulting Provider: Chapincito Sanderson Consult Reason/Comments: altered mental status Do you want consulting provider notified?: Yes 07/05/22 10:45 Consult Physician Routine Consulting Provider: Daniel Murphy Consult Reason/Comments: dialysis catheter placement Do you want consulting provider notified?: Yes 07/05/22 12:38 Consult Physician Routine Consulting Provider: Ann-Marie Russo Consult Reason/Comments: hemodialysis catheter placement Do you want consulting provider notified?: Yes 07/10/22 08:13 Consult Physician Routine Consulting Provider: Adriel Carrero Consult Reason/Comments: thrombocytopenia Do you want consulting provider notified?: Yes 07/10/22 08:43 Consult Physician Routine Consulting Provider: Morgan Do Consult Reason/Comments: episodes of A Fib, bradycardia Do you want consulting provider notified?: Yes 07/14/22 16:49 Consult Physician Routine Consulting Provider: George Jerry Consult Reason/Comments: right wrist pain Do you want consulting provider notified?: Yes 07/17/22 17:10 Consult Physician Urgent Consulting Provider: Christopher Vences Consult Reason/Comments: acute on chronic nose bleed Do you want consulting provider notified?: Yes 07/18/22 08:40 Consult Physician Routine Consulting Provider: Leann Davis Consult Reason/Comments: cirrhosis liver Do you want consulting provider notified?: Yes Primary care physician: Carlos Pop [facility] Course: Diagnosis on discharge: Mental status changes, cause is unclear could be related to overdose of narcotic Sepsis as evidence by Leukocytosis, source of infection likely related to colitis Acute exacerbation of COPD with wheezing on presentation, he was started on IV Solu-Medrol in the emergency room, he is on inhaled bronchodilators Evidence of acute kidney injury was elevated BUN and creatinine patient was started on IV fluid, nephrology consultation was requested Abdominal ascites, status post paracentesis 06/30/2022 with 3.5 L of fluid removed, Evidence of liver cirrhosis Mild elevation in troponin level will monitor Underlying history of hypertension Underlying history of hypothyroidism Underlying history of depression with anxiety disorder Underlying history of vitamin D deficiency Underlying history of degenerative disc disease with chronic back pain maintained on narcotics for pain management Underlying history of gastroesophageal reflux disease Acute renal failure requiring hemodialysis during this admission Hospital course: Ag Sozua, is a 67-year-old male who presented to [facility] emergency room after having a multiple falls at home, has significant mental status changes with somnolence and poor responsiveness, history per his , over the last 24 hours patient has been not feeling well, he fell twice at home, on the second time she was not able to wake him up and get him up from the floor through the bed, she called EMS and he was brought into emergency room. He was evaluated in the emergency room vital examination on presentation revealed a temperature of 97.3 pulse 82 respiration 16 blood pressure 121/67 pulse ox 97% on room air Laboratory data revealed a white blood count of 23.2 hemoglobin 14.4 platelet count 98,000 sodium 129 potassium 4.9 chloride 96 CO2 25 BUN 51 creatinine 2.24 troponin level was 0.02 COVID-19 testing was negative Testing in the emergency room revealed chest x-ray done in the emergency room did not reveal significant abnormality. Patient has a known history of degenerative disc disease with chronic pain maintained on narcotics for pain management he was given Narcan in the emergency room which led to improvement in his mental status. Patient was admitted to medical floor for further evaluation and treatment. On 06/22/2022 patient was seen and examined on the telemetry floor he is still somnolent, agitated, pulling on his IV line, he was started through the night on IV Ativan, vital examination reveals a temperature of 98.4 pulse 132 respiration 24 blood pressure 172/91 pulse ox 96% on 2 L nasal cannula, white blood count is 21.9 hemoglobin 14.8 platelet count 118 d-dimer was elevated at 2.12 at this time will start patient on IV heparin high-intensity for possible pulmonary embolism, his kidney function is still elevated, will defer computed tomography scan this time, he is not cooperative to proceed with VQ scan, will continue with IV fluid, nephrology consultation and infectious disease consultation were requested. On 06/23/2022 patient was seen and examined in the ICU he is more alert and oriented today vital exam reveals a temperature of 98.2 pulse 86 respiration 23 blood pressure 138/79 pulse ox 93% on 2 L nasal cannula white blood count is down to 15.4 hemoglobin 13.2 platelet count 125 kidney function improved with BUN at 66 and creatinine at 0.89 kidney ultrasound was done and revealed no evidence of renal stones or obstruction, CT angiogram of the chest was done and there was no evidence of pulmonary embolism, blood culture were positive for Streptococcus group b , patient is currently maintained on IV Unasyn, IV vancomycin and IV acyclovir, cardiology, pulmonary, nephrology, neurology and infectious disease are following On 06/24/2022 patient was seen and examined in the ICU he is more alert and oriented today kidney ultrasound was done and revealed no evidence of renal stones or obstruction, CT angiogram of the chest was done and there was no evidence of pulmonary embolism, blood culture were positive for Streptococcus group b , patient is currently maintained on IV Unasyn, IV vancomycin and IV acyclovir, cardiology, pulmonary, nephrology, neurology and infectious disease are following. Patient had a maroon colored stools through the night, GI consultation is not available this week, surgical consultation was requested for evaluation for possible GI bleed On 06/25/2022 patient was seen and examined in the ICU, he is more alert and responsive today, there is no fever or chills no headache or dizziness no chest pain no shortness of breath no cough no nausea or vomiting no abdominal pain no diarrhea and no urinary symptoms. IV heparin has been discontinued, at this time will start subcu Lovenox for DVT prophylaxis, he remains on IV antibiotics cefazolin 2 g IV every 8 hours. On 06/26/2022 patient was seen and examined in the ICU he is alert and oriented 3 in no apparent distress he is complaining of abdominal discomfort otherwise he denies any complaint at this time there is no fever or chills no headache or dizziness no chest pain no shortness of breath no cough no nausea or vomiting no diarrhea no blood in the stools no burning with urination no frequency or urgency and no hematuria. On 06/27/2022 patient was seen and examined on in the ICU he is alert and oriented 3, he is feeling better, he had multiple bowel movements and his abdominal pain has improved, he is still complaining of difficulty sleeping at night otherwise he denies any complaints there is no fever or chills no headache or dizziness no chest pain no shortness of breath no cough no nausea or vomiting no abdominal pain no diarrhea no blood in the stools no burning with urination no frequency or urgency and no hematuria. On 06/28/2022 patient was seen and examined on the medical floor he is alert and oriented 3 in no distress there is no fever or chills no headache or dizziness no chest pain no shortness of breath no cough no nausea or vomiting no abdominal pain no diarrhea, no blood in the stools no burning with urination no frequency or urgency and no hematuria patient has generalized weakness he is improving gradually will continue to follow closely physical therapy is following On 06/29/2022 patient was seen and examined on the medical floor he is alert and oriented 3 in no apparent distress there is no fever or chills no headache or dizziness no chest pain no shortness of breath no cough no nausea or vomiting he is complaining of abdominal discomfort with abdominal distention no diarrhea or constipation no blood in the stools no burning with urination no frequency or urgency and no hematuria. At this time patient is scheduled for computed tomography scan of the abdomen and pelvis will continue to monitor closely. On 06/30/2022 patient was seen and examined on the telemetry floor he is alert and oriented 3 in no apparent distress he is complaining now of severe neck pain and back pain and requesting Elsie, patient underwent paracentesis today, 3.5 L of fluid were removed, otherwise patient denies any other symptoms there is no fever or chills no headache or dizziness no chest pain no shortness of breath no cough no nausea or vomiting no abdominal pain no diarrhea and no urinary symptoms On 07/01/2022 patient was seen and examined on the medical floor he is alert and oriented 3 in no apparent distress he is complaining of abdominal discomfort and distention otherwise he denies any complaints at this time there is no fever or chills no headache or dizziness no chest pain no shortness of breath no cough no nausea or vomiting no diarrhea no blood in the stools no burning with urination no frequency or urgency and no hematuria On 07/02/2022 patient was seen and examined on the medical floor he is alert and oriented 3 in no apparent distress he is complaining of abdominal discomfort and distention, he is complaining of bilateral hip pain, he received 1 dose of lactulose and had multiple episodes of diarrhea afterwards lactulose was discontinued, otherwise he denies any complaints at this time there is no fever or chills no headache or dizziness no chest pain no shortness of breath no cough no nausea or vomiting no blood in the stools no burning with urination no frequency or urgency and no hematuria. On 07/03/2022 patient was seen and examined the medical he is alert and oriented he is complaining of abdominal distention was discomfort and shortness of breath otherwise he denies any complaints there is no fever or chills no headache or dizziness no chest pain no cough no nausea or vomiting no urinary symptoms On 07/04/2022 patient was seen and examined in the ICU he is more lethargic today he was started on BiPAP and transferred to ICU today ammonia level is elev ated at 38 there is no fever or chills no headache or dizziness no chest pain patient has significant distention in the abdomen, no nausea or vomiting no diarrhea, Russo catheter is in. On 07/05/2022 patient was seen and examined in the ICU at this time he is intubated sedated maintained on mechanical ventilation, currently he is on assist control rate of 20 to FiO2 50% and PEEP of 5 he had a dialysis catheter placed and a session of hemodialysis is scheduled for this afternoon, patient is maintained on norepinephrine drip, white blood count is up to 25,000 hemoglobin is 11 BUN is up to 78 and creatinine 2.47 patient is maintained on IV Zosyn infectious disease are following, prognosis is guarded will continue with aggressive management at this time and sister are at the bedside and are aware of patient's condition. On 07/06/2022 patient was seen and examined in the ICU he is intubated sedated maintained on mechanical ventilation assist control rate 22 FiO2 50% with PEEP of 5 he was started on hemodialysis yesterday he is still IV antibiotic and IV fluid and norepinephrine temperature of 97.7 pulse 96 respiration 24 blood pressure 128/48 sodium 135 potassium 4.4 chloride 101 CO2 22 BUN 78 creatinine 3.19 white blood count 17.4 hemoglobin 10.5 platelet count 167 On 07/07/2022 patient was seen and examined in the ICU he is intubated sedated maintained on mechanical ventilation, he is maintained on assist control FiO2 40% feet 058 arterial blood gas is improving is maintained on TPN he is maintained on IV antibiotics he is maintained on hemodialysis vital exam reveals a temperature of 97.2 pulse 75 respiration 24 blood pressure 128/48 pulse ox 100% BUN is 63 creatinine 2.86 On 07/08/2022 patient was seen and examined in the ICU he is intubated sedated maintained on mechanical ventilation he is maintained on norepinephrine for pressure support, he is maintained on IV Zosyn, he was started on hemodialysis, clinically patient is stable. His vital exam reveals a temperature of 98.7 pulse 84 respiration 24 blood pressure 132/49 pulse ox 94% on mechanical ventilation FiO2 30% On 07/09/2022 patient was seen and examined in the ICU currently he is on mechanical ventilation assist control rate of 24 FiO2 30% with a PEEP of 5, he is off propofol, he is awake and tries to answer questions with yes or no by moving his head he is moving his hands there has been a significant drop in his platelet count yesterday and today, I will check heparin induced antibodies and hold Lovenox for today, I have contacted Dr. Barajas over the phone and asked if he can switch Zosyn to a different antibiotic, otherwise patient is stable will continue to monitor closely. On 07/10/2022 patient was seen and examined in the ICU he is intubated sedated maintained on mechanical ventilation, he is on assist control rate of 24 FiO2 30% with a PEEP of 5 at this time platelet count is down to 41 Zosyn was switched yesterday by Dr. Barajas to Cefepime, heparin induced antibodies are still pending consult for hematology requested in regard to thrombocytopenia, patient is also having episodes of atrial fibrillation during dialysis he has bradycardia with a heart rate of 49 consultation for cardiology will be initiated otherwise patient is stable without significant change since yesterday. On 07/11/2022 patient was seen and examined in the ICU he is extubated entertained on oxygen via nasal cannula patient is alert and oriented and answering questions appropriately he is complaining of generalized weakness and generalized pain otherwise he denies any complaint On 07/12/2022 patient was seen and examined in the ICU he is extubated maintained on oxygen via nasal cannula, he is alert and oriented in no distress he is complaining of generalized weakness and generalized pain otherwise he denies any complaint On 07/13/2022 patient was seen and examined in the ICU, he is alert and oriented 3 in no distress there is no fever or chills no headache or dizziness no chest pain no shortness of breath no cough no nausea or vomiting no abdominal pain no diarrhea no blood in the stools he has a Russo catheter in he is complaining of right wrist pain with check x-ray he is also complaining of generalized weakness On 07/14/2022 patient was seen and examined in the ICU, he is alert and oriented 3 in no distress , he is complaining of pain in the right wrist area , otherw ise he denies any complaints there is no fever or chills no headache or dizziness no chest pain no shortness of breath no cough no nausea or vomiting no abdominal pain no diarrhea no blood in the stools he has a Russo catheter in he is complaining of right wrist pain with check x-ray he is also complaining of generalized weakness. On 07/15/2022 patient was seen and examined in the ICU, he is alert and oriented 3 in no distress , there is no fever or chills no headache or dizziness no chest pain no shortness of breath no cough no nausea or vomiting no abdominal pain no diarrhea no blood in the stools he has a Russo catheter in he is complaining of right wrist pain with check x-ray he is also complaining of generalized weakness. On 07/16/2022 patient was seen and examined on the medical floor, he is alert and oriented 3 in no apparent distress, there is no fever or chills no headache or dizziness no chest pain no shortness of breath no cough no nausea or vomiting no abdominal pain no diarrhea and no urinary symptoms, he has good urine output, nephrology are following and no hemodialysis is recommended at this time, physical therapy and occupational therapy are following. On 07/17 patient was seen and examined on the medical floor he is alert and oriented 3 in no apparent distress there is no fever or chills no headache or dizziness no chest pain no shortness of breath no cough no nausea or vomiting no abdominal pain no diarrhea and no urinary symptoms, today he is scheduled to have an ultrasound of the abdomen to assess for ascites and if there is any further need for paracentesis, he is also scheduled for a portable chest x-ray, labs are still pending, will continue to follow. On 07/18/2022 patient was seen and examined on the medical floor he is alert and oriented 3 in no apparent distress he is complaining of generalized weakness otherwise he denies any complaints there is no fever or chills no headache or dizziness no chest pain no shortness of breath no cough no nausea or vomiting no abdominal pain no diarrhea and no urinary symptoms. Today patient is scheduled for paracentesis he is also scheduled for dialysis catheter placement will follow closely On 07/19/2022 patient was seen and examined in the ICU patient had cardiac arrest last night during hemodialysis yesterday he underwent paracentesis and dialysis catheter placement he was undergoing hemodialysis when he had cardiopulmonary arrest he was transferred to ICU was intubated and sedated and started on mechanical ventilation patient was having significant anemia with multiple source of bleeding including dialysis catheter patient had possible DIC he received fresh frozen plasma he was seen by hematology, patient condition continued to deteriorate he was seen by Dr. Gonzales critical care he met with his family and decided to proceed with comfort care only patient shortly after that. Patient Condition at Discharge: Poor Plan - Discharge Summary Discharge Rx Participant: Yes New Discharge Prescriptions: No Action Omeprazole [PriLOSEC] 20 mg PO AC-BRKFST Baclofen [Lioresal] 10 mg PO HS Metoprolol Succinate [Toprol XL] 50 mg PO QAM Ipratropium/Albuterol Sulfate [Combivent Respimat Inhaler] 1 puff INHALATION RT-QID Levothyroxine Sodium [Synthroid] 88 mcg PO QAM Aspirin EC [Ecotrin Low Dose] 81 mg PO DAILY Ergocalciferol [Vitamin D2 (1250 Mcg = 47398 Iu)] 1,250 mcg PO Q7D traZODone HCL [Desyrel] 100 mg PO HS Mirtazapine [Remeron] 15 mg PO HS hydrOXYzine HCL [Atarax] 10 mg PO HS HYDROcodone/APAP 10-325MG [Elsie 10-325] 1 tab PO Q6HR PRN PRN Reason: Pain Zolpidem Tartrate [Ambien Cr] 12.5 mg PO HS PRN PRN Reason: Insomnia lisinopriL [Prinivil] 20 mg PO QAM Morphine Sulfate ER [Ms Contin] 15 mg PO HS Albuterol Sulfate [Proventil Hfa] 1 - 2 puff INHALATION Q6HR PRN PRN Reason: Shortness Of Breath Furosemide [Lasix] 20 mg PO DAILY Fluticasone Nasal [place] [Flonase Nasal [place]] 1 spray EA NOSTRIL DAILY Discharge Medication List Baclofen [Lioresal] 10 mg PO HS 02/26/19 [History] Ipratropium/Albuterol Sulfate [Combivent Respimat Inhaler] 1 puff INHALATION RT- QID 02/26/19 [History] Metoprolol Succinate [Toprol XL] 50 mg PO QAM 02/26/19 [History] Omeprazole [PriLOSEC] 20 mg PO AC-BRKFST 02/26/19 [History] HYDROcodone/APAP 10-325MG [Elsie 10-325] 1 tab PO Q6HR PRN 09/07/21 [History] Levothyroxine Sodium [Synthroid] 88 mcg PO QAM 09/07/21 [History] Morphine Sulfate ER [Ms Contin] 15 mg PO HS 09/07/21 [History] Zolpidem Tartrate [Ambien Cr] 12.5 mg PO HS PRN 09/07/21 [History] lisinopriL [Prinivil] 20 mg PO QAM 09/07/21 [History] Albuterol Sulfate [Proventil Hfa] 1 - 2 puff INHALATION Q6HR PRN 06/21/22 [History] Aspirin EC [Ecotrin Low Dose] 81 mg PO DAILY 06/21/22 [History] Ergocalciferol [Vitamin D2 (1250 Mcg = 79116 Iu)] 1,250 mcg PO Q7D 06/21/22 [History] Fluticasone Nasal [place] [Flonase Nasal [place]] 1 spray EA NOSTRIL DAILY 06/21/22 [History] Furosemide [Lasix] 20 mg PO DAILY 06/21/22 [History] Mirtazapine [Remeron] 15 mg PO HS 06/21/22 [History] hydrOXYzine HCL [Atarax] 10 mg PO HS 06/21/22 [History] traZODone HCL [Desyrel] 100 mg PO HS 06/21/22 [History] Follow up Appointment(s)/Referral(s): [facility], [NON-STAFF] - 1-2 Days Carlos Pop MD [Primary Care Provider] - 1-2 days Ole Gonzales MD [STAFF PHYSICIAN] - 08/06/22 8:30 am Activity/Diet/Wound Care/Special Instructions: 1. Patient requires a wheelchair to complete his ADLS due to COPD, prolonged hospital stay, and weakness that cannot be done with a walker or cane. Patient is able to self propel. 2. Patient requires a hospital bed to alleviate dyspnea due to COPD. Patient needs head of the bed elevated >30 most of the time to alleviate dyspnea. Discharge Disposition: - Preliminary Cause of Preliminary Cause of : sepsis
--- NOTE | 2022-07-21 11:36 | PN ---
PROGRESS NOTE SUBJECTIVE: I went to see the patient today in his room on and discovered that he had been transferred to the ICU. At the time that I saw the patient in the ICU, unfortunately, he was intubated and on a ventilator. The nursing staff related that he had not had any active bleeding since his transfer. We are currently placing Afrin nasal spray in each nostril three times daily. It is felt that the patient may actually have DIC, which has a very poor prognosis. OBJECTIVE: HEENT: The patient is normocephalic. Intranasal examination reveals that there is no evidence of any active bleeding. The bleeding sites appear to be sealed at this time. Examination of oropharynx reveals the patient does have endotracheal tube present, but I do not see any evidence of any active bleeding down the posterior pharyngeal wall. The remainder of the exam is essentially unremarkable. ASSESSMENT: Anterior/posterior epistaxis. PLAN: We will continue with the Afrin nasal spray as long as the patient is in the ICU unit. Unfortunately,the DIC diagnosis has a grave prognosis. I will continue to see the patient with you while he is admitted to the hospital. MMCORIL / LETITIAN: [id number] / [id number]
== END 2022-07-19 20:03 | disposition expired | DRG 870 ==
LOC: EC 11:13 → 3SCARD 13:29 → 2SICU 06-22 11:02 → 4SSUR 06-28 13:30 → 2SICU 07-04 11:52 → 5NMEDONC 07-15 23:20 → 2SICU 07-18 21:28
PROVIDERS: ADMIT Internal Medicine; ATTEND Internal Medicine
PROC: 0D9670Z Drainage of Stomach with Drainage Device, Via Natural or Artificial Opening (ICD-10-PCS; 2022-06-24)
PROC: 0W9G3ZX Drainage of Peritoneal Cavity, Percutaneous Approach, Diagnostic (ICD-10-PCS; 2022-06-30)
PROC: 05H933Z Insertion of Infusion Device into Right Brachial Vein, Percutaneous Approach (ICD-10-PCS; 2022-07-04)
PROC: 0BH17EZ Insertion of Endotracheal Airway into Trachea, Via Natural or Artificial Opening (ICD-10-PCS; 2022-07-04)
PROC: 5A09357 Assistance with Respiratory Ventilation, Less than 24 Consecutive Hours, Continuous Positive Airway Pressure (ICD-10-PCS; 2022-07-04)
PROC: 0D9670Z Drainage of Stomach with Drainage Device, Via Natural or Artificial Opening (ICD-10-PCS; principal; 2022-07-04 07:30)
PROC: 3E043XZ Introduction of Vasopressor into Central Vein, Percutaneous Approach (ICD-10-PCS; principal; 2022-07-04 07:30)
PROC: 5A1955Z Respiratory Ventilation, Greater than 96 Consecutive Hours (ICD-10-PCS; principal; 2022-07-04 07:30)
PROC: 4A133J1 Monitoring of Arterial Pulse, Peripheral, Percutaneous Approach (ICD-10-PCS; 2022-07-05)
PROC: 03HY32Z Insertion of Monitoring Device into Upper Artery, Percutaneous Approach (ICD-10-PCS; 2022-07-05)
PROC: 4A133B1 Monitoring of Arterial Pressure, Peripheral, Percutaneous Approach (ICD-10-PCS; 2022-07-05)
PROC: 06HM33Z Insertion of Infusion Device into Right Femoral Vein, Percutaneous Approach (ICD-10-PCS; 2022-07-05)
PROC: 06HY33Z Insertion of Infusion Device into Lower Vein, Percutaneous Approach (ICD-10-PCS; 2022-07-05)
PROC: 5A1D70Z Performance of Urinary Filtration, Intermittent, Less than 6 Hours Per Day (ICD-10-PCS; 2022-07-05)
PROC: 3E0436Z Introduction of Nutritional Substance into Central Vein, Percutaneous Approach (ICD-10-PCS; 2022-07-05)
PROC: 3E0G76Z Introduction of Nutritional Substance into Upper GI, Via Natural or Artificial Opening (ICD-10-PCS; 2022-07-10)
PROC: 05HA33Z Insertion of Infusion Device into Left Brachial Vein, Percutaneous Approach (ICD-10-PCS; 2022-07-13)
PROC: 0JH60XZ Insertion of Tunneled Vascular Access Device into Chest Subcutaneous Tissue and Fascia, Open Approach (ICD-10-PCS; 2022-07-18)
PROC: 05HM33Z Insertion of Infusion Device into Right Internal Jugular Vein, Percutaneous Approach (ICD-10-PCS; 2022-07-18)
PROC: 5A1935Z Respiratory Ventilation, Less than 24 Consecutive Hours (ICD-10-PCS; 2022-07-18)
PROC: 0D9670Z Drainage of Stomach with Drainage Device, Via Natural or Artificial Opening (ICD-10-PCS; 2022-07-18)
PROC: 0BH17EZ Insertion of Endotracheal Airway into Trachea, Via Natural or Artificial Opening (ICD-10-PCS; 2022-07-18)
PROC: 5A12012 Performance of Cardiac Output, Single, Manual (ICD-10-PCS; 2022-07-18)
PROC: 30243N1 Transfusion of Nonautologous Red Blood Cells into Central Vein, Percutaneous Approach (ICD-10-PCS; 2022-07-19)
PROC: 30243K1 Transfusion of Nonautologous Frozen Plasma into Central Vein, Percutaneous Approach (ICD-10-PCS; 2022-07-19)
PROC: 30243M1 Transfusion of Nonautologous Plasma Cryoprecipitate into Central Vein, Percutaneous Approach (ICD-10-PCS; 2022-07-19)
DX: A40.1 Sepsis due to streptococcus, group B (principal); D65 Disseminated intravascular coagulation [defibrination syndrome]; K72.00 Acute and subacute hepatic failure without coma; K76.7 Hepatorenal syndrome; J96.01 Acute respiratory failure with hypoxia; J96.02 Acute respiratory failure with hypercapnia; J69.0 Pneumonitis due to inhalation of food and vomit; G92.8 Other toxic encephalopathy; N17.0 Acute kidney failure with tubular necrosis; R65.21 Severe sepsis with septic shock; I21.A1 Myocardial infarction type 2; K56.7 Ileus, unspecified; J90 Pleural effusion, not elsewhere classified; J44.1 Chronic obstructive pulmonary disease with (acute) exacerbation; N17.9 Acute kidney failure, unspecified; I47.2 Ventricular tachycardia; E87.4 Mixed disorder of acid-base balance; K76.6 Portal hypertension; R18.8 Other ascites; I67.89 Other cerebrovascular disease; E87.1 Hypo-osmolality and hyponatremia; D62 Acute posthemorrhagic anemia; K92.2 Gastrointestinal hemorrhage, unspecified; I48.92 Unspecified atrial flutter; J98.11 Atelectasis; N10 Acute pyelonephritis; F11.20 Opioid dependence, uncomplicated; K74.60 Unspecified cirrhosis of liver; Z99.2 Dependence on renal dialysis; I46.9 Cardiac arrest, cause unspecified; I48.0 Paroxysmal atrial fibrillation; Z66 Do not resuscitate; Z20.822 Contact with and (suspected) exposure to COVID-19; Z28.310 Unvaccinated for COVID-19; I67.1 Cerebral aneurysm, nonruptured; E83.39 Other disorders of phosphorus metabolism; G31.9 Degenerative disease of nervous system, unspecified; E86.1 Hypovolemia; E78.5 Hyperlipidemia, unspecified; E87.5 Hyperkalemia; I10 Essential (primary) hypertension; D73.1 Hypersplenism; M19.031 Primary osteoarthritis, right wrist; J34.3 Hypertrophy of nasal turbinates; J34.2 Deviated nasal septum; R04.0 Epistaxis; K52.9 Noninfective gastroenteritis and colitis, unspecified; G89.29 Other chronic pain; M54.50 Low back pain, unspecified; M50.322 Other cervical disc degeneration at C5-C6 level; M48.02 Spinal stenosis, cervical region; I65.29 Occlusion and stenosis of unspecified carotid artery; E03.9 Hypothyroidism, unspecified; I49.3 Ventricular premature depolarization; R58 Hemorrhage, not elsewhere classified; D53.9 Nutritional anemia, unspecified; E87.6 Hypokalemia; E87.70 Fluid overload, unspecified; G47.9 Sleep disorder, unspecified; G47.00 Insomnia, unspecified; F41.1 Generalized anxiety disorder; F32.A Depression, unspecified; R73.03 Prediabetes; I25.10 Atherosclerotic heart disease of native coronary artery without angina pectoris; T40.605A Adverse effect of unspecified narcotics, initial encounter; K29.70 Gastritis, unspecified, without bleeding; K29.80 Duodenitis without bleeding; K57.90 Diverticulosis of intestine, part unspecified, without perforation or abscess without bleeding; K21.9 Gastro-esophageal reflux disease without esophagitis; M19.90 Unspecified osteoarthritis, unspecified site; R29.6 Repeated falls; R68.0 Hypothermia, not associated with low environmental temperature; F17.210 Nicotine dependence, cigarettes, uncomplicated; Z79.82 Long term (current) use of aspirin; Z79.890 Hormone replacement therapy; Z79.899 Other long term (current) drug therapy; Z86.73 Personal history of transient ischemic attack (TIA), and cerebral infarction without residual deficits; Z90.49 Acquired absence of other specified parts of digestive tract; Z91.81 History of falling; Z78.1 Physical restraint status; Z95.828 Presence of other vascular implants and grafts; W07.XXXA Fall from chair, initial encounter; Y92.230 Patient room in hospital as the place of occurrence of the external cause
CPT/HCPCS: 36410; 36415; 36558; 36600; 49083; 70450; 70553; 71045; 71275; 72100; 72125; 72170; 74018; 74022; 74176; 74177; 76705; 76770; 76937; 77001; 80048; 80053; 80306; 80320; 81001; 81003; 82140; 82272; 82330; 82533; 82550; 82553; 82570; 82607; 82728; 82746; 82803; 82805; 82945; 83010; 83036; 83540; 83550; 83605; 83615; 83735; 84100; 84132; 84145; 84157; 84300; 84478; 84484; 84540; 85025; 85027; 85049; 85379; 85384; 85610; 85730; 86022; 86140; 86704; 86706; 86850; 86900; 86901; 86920; 87040; 87070; 87077; 87086; 87102; 87186; 87205; 87340; 87529; 87635; 89050; 90935; 93005; 93306; 93308; 94002; 94003; 94640; 94660; 94760; 95816; 96361; 96374; 96375; 99285